=== PATIENT | female | born 1975 | race Caucasian/White ===

== ENCOUNTER 2018-02-13 18:49 | Emergency (ER) | payer MEDICAID ==
[~2018-02-13] VITALS: Ht 170.2 cm; Wt 88.5 kg
[~2018-02-13 18:49] MED LIST: ALBU2.5V4 IN; BECL8.7A5 IH; BENZ100C8 PO; CALC0.5C2 PO; CALC0.5C3 PO; CEFA250C; CEFD300C3 PO; CHOL200035 PO; CLON0.5T PO; CLON0.5T3 PO; CRS350T PO; CYCL10TA9 PO; DICY10CA12 PO; DOXY100C42 PO; FAMO20TA5 PO; HYDR-622 PO; HYDR25CA92 PO; LORA0.5T34 PO; MAGN400T29 PO; MYCO500T34 PO; NF-ESOM40C PO; NITR-65 PO; NORE1TAB28 PO; OMEP-10 PO; ONDA8TAB13 PO; ONDN4T PO; PHEN100T17 PO; PIP1KIT21 TP; PRD20T PO; PRM25T PO; PROM12.59 PO; RANI150T15 PO; RT-ALBUINH IH; SULF1TAB23 PO; TACR1CAP PO; TEMA30CA PO; [UNRECOGNIZED DRUG - OTHER]
--- OUTSIDE RECORDS SUMMARY | 2018-02-13 18:55 | XMS REPORT ---
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 Active Assessment Bilateral low back pain with sciatica, sciatica laterality unspecified M54.40 Active Assessment Primary insomnia F51.01 Active Problem Anxiety F41.9 Active Problem Primary insomnia F51.01 Active Problem Bilateral low back pain with sciatica, sciatica laterality unspecified M54.40 Active Problem 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 Active Problem Asthma, unspecified, with (acute) exacerbation 493.92 Active Problem Depressive disorder, not elsewhere classified 311 Active Problem Insomnia, unspecified 780.52 Active Medications Medication Code System Code Instructions Start Date End Date Status Dosage Fluoxetine HCl [facility] 85513629463 10 MG Orally Once a day 1 capsule in the morning MiraLax [facility] [address]-85 17 Orally Once a day Jul 28, 2015 17 grams Flonase [facility] [address]-29 50 MCG/ACT Nasally 2 times a day Aug 12, 2015 1 spray in each nostril Calcitriol [facility] [address]-79 0.5 mcg Nov 22, 2014 take 2 capsules (1 mcg) by oral route once daily Prograf [facility] [address]-97 1 MG Dec 26, 2014 4 capsules in the morning, 3 capsules in the evening Dicyclomine HCl [facility] 75687358988 10 MG TAKE ONE CAPSULE BY MOUTH EVERY 6 HOURS NEEDED Omeprazole [facility] 87100953231 20 MG TAKE ONE CAPSULE BY MOUTH DAILY BEFORE A MEAL Flexlite Knee Brace [facility] 30058-85451 1 equipment left knee April 14, 2015 as directed Glenis Randhawa [facility] [address]-09 100 MG Orally 2 times a day PRN Jul 28, 2015 1 capsule as needed Claritin [facility] [address]-98 10 MG Orally Once a day Aug 12, 2015 Sep 11, 2015 1 tablet Albuterol Sulfate [facility] [address]-74 2.5 mg /3 mL (0.083 %) Nov 22, 2014 1 Nebulize Solution by Inhalation route every 4 hours PRN [place] [facility] [address]-80 7.5-325 MG Orally 3-4 TIMES DAILY PRN- Dec 06, 2014 1 Tablet Zofran ODT [facility] [address]-87 8 MG Orally every 8 hrs prn N/V Dec 26, 2014 1 tablet Clonazepam [facility] 83707619447 0.5 MG TAKE ONE TABLET BY MOUTH TWICE DAILY Qvar [facility] [address]-29 40 mcg/actuation Nov 22, 2014 inhale 2 puffs by inhalation route 2 times per day Procedures Procedure Coding System Code Date VENIPUNCT, ROUTINE* CPT-4 97817 Sep 11, 2015 No Charge CPT-4 21779 Sep 11, 2015 LAB NOT BILLED BY [facility] CPT-4 NOBLL Sep 11, 2015 Office Visit, Est Pt., Level 4 CPT-4 99001 Sep 11, 2015 Vital Signs Date/Time: Sep 11, 2015 Temperature 97.4 F Weight 252.3 lbs Height 67 in BMI 39.51 Index Blood Pressure Diastolic 78 mmHg Blood Pressure Systolic 118 mmHg Cardiac Monitoring Heart Rate 80 bpm Results Name Result Date Reference Range Unit Abnormality Flag ROUTINE VENIPUNCTURE Summary Purpose eClinicalWorks Submission
--- OUTSIDE RECORDS SUMMARY | 2018-02-13 18:55 | XMS REPORT ---
Author Author SARAI AVILA [facility] eClinicalWorks Address Unknown Phone Unavailable Care Team Providers Care Acoustical Tile Patternmaker Name Role Phone SARAI AVILA Unavailable Allergies, Adverse Reactions, Alerts Substance Reaction Event Type Temazepam Info Not Available Drug Allergy Iodine Info Not Available Drug Allergy Baclofen rash Drug Allergy Codeine Info Not Available Drug Allergy Influenza Virus Vacc,specific Info Not Available Non Drug Allergy Problems Problem Type Condition Code Onset Dates Condition Status Problem Asthma, unspecified, with (acute) exacerbation 493.92 Active Problem Insomnia, unspecified 780.52 Active Problem 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 Active Problem Screening breast examination Z12.39 Active Problem Mild intermittent asthma without complication J45.20 Active Problem Breast pain N64.4 Active Problem Primary insomnia F51.01 Active Problem Depressive disorder, not elsewhere classified 311 Active Problem Bilateral low back pain with sciatica, sciatica laterality unspecified M54.40 Active Problem Anxiety F41.9 Active Assessment Mild intermittent asthma without complication J45.20 Active Assessment Screening breast examination Z12.39 Active Assessment Breast pain N64.4 Active Medications Medication Code System Code Instructions Start Date End Date Status Dosage Zofran ODT [facility] [address]-17 8 MG Orally every 8 hrs prn N/V Dec 26, 2014 1 tablet Albuterol Sulfate [facility] [address]-76 2.5 mg /3 mL (0.083 %) Nov 22, 2014 1 Nebulize Solution by Inhalation route every 4 hours PRN Clonazepam [facility] 38029048236 0.5 MG TAKE ONE TABLET BY MOUTH TWICE DAILY MiraLax [facility] [address]-92 17 Orally Once a day Jul 28, 2015 17 grams Qvar [facility] [address]-83 40 mcg/actuation inhaled bid Nov 22, 2014 inhale 2 puffs by inhalation route 2 times per day Flexlite Knee Brace [facility] 12072[address]75 1 equipment left knee April 14, 2015 as directed Calcitriol [facility] [address]-05 0.5 mcg Nov 22, 2014 take 2 capsules (1 mcg) by oral route once daily Dicyclomine HCl [facility] 19248387758 10 MG TAKE ONE CAPSULE BY MOUTH EVERY 6 HOURS NEEDED Zantac [facility] [address]-38 150 MG Orally Once a day in the morning, 1 tablet Flonase [facility] [address]-11 50 MCG/ACT Nasally 2 times a day Aug 12, 2015 1 spray in each nostril [place] [facility] [address]-15 7.5-325 MG Orally 3-4 TIMES DAILY PRN- Dec 06, 2014 1 Tablet Zanaflex [facility] [address]-42 2 MG Orally 3 times a day 1 capsule as needed Prograf [facility] [address]-24 1 MG Dec 26, 2014 4 capsules in the morning, 3 capsules in the evening Mycophenolate Mofetil [facility] [address]-55 500 mg Nov 22, 2014 take 1.5 tablets by Oral route 2 times per day Omeprazole [facility] 08939497028 20 MG TAKE ONE CAPSULE BY MOUTH DAILY BEFORE A MEAL Procedures Procedure Coding System Code Date Office Visit, Est Pt., Level 4 CPT-4 01744 Dec 18, 2015 CHEST X-RAY CPT-4 17938 Dec 18, 2015 Vital Signs Date/Time: Dec 18, 2015 Temperature 97.7 F Weight 251.2 lbs Height 67 in BMI 39.34 Index Blood Pressure Diastolic 64 mmHg Blood Pressure Systolic 91 mmHg Cardiac Monitoring Heart Rate 79 bpm Results No Known Results Summary Purpose eClinicalWorks Submission
--- OUTSIDE RECORDS SUMMARY | 2018-02-13 18:56 | XMS REPORT ---
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
--- OUTSIDE RECORDS SUMMARY | 2018-02-13 18:56 | XMS REPORT ---
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 Active Assessment Bilateral low back pain with sciatica, sciatica laterality unspecified M54.40 Active Problem Anxiety F41.9 Active Problem Primary insomnia F51.01 Active Problem Bilateral low back pain with sciatica, sciatica laterality unspecified M54.40 Active Problem 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 Active Problem Asthma, unspecified, with (acute) exacerbation 493.92 Active Problem Depressive disorder, not elsewhere classified 311 Active Problem Insomnia, unspecified 780.52 Active Medications Medication Code System Code Instructions Start Date End Date Status Dosage Dicyclomine HCl [facility] 43879456744 10 MG TAKE ONE CAPSULE BY MOUTH EVERY 6 HOURS NEEDED Omeprazole [facility] 05471624580 20 MG TAKE ONE CAPSULE BY MOUTH DAILY BEFORE A MEAL Clonazepam [facility] 82643807006 0.5 MG TAKE ONE TABLET BY MOUTH TWICE DAILY Albuterol Sulfate [facility] [address]-79 2.5 mg /3 mL (0.083 %) Nov 22, 2014 1 Nebulize Solution by Inhalation route every 4 hours PRN MiraLax [facility] [address]-79 17 Orally Once a day Jul 28, 2015 17 grams Flexlite Knee Brace [facility] 90[address]39 1 equipment left knee April 14, 2015 as directed Prograf [facility] [address]-32 1 MG Dec 26, 2014 4 capsules in the morning, 3 capsules in the evening Fluoxetine HCl [facility] 76905694027 10 MG Orally Once a day 1 capsule in the morning Zofran ODT [facility] [address]-42 8 MG Orally every 8 hrs prn N/V Dec 26, 2014 1 tablet Qvar [facility] [address]-63 40 mcg/actuation Nov 22, 2014 inhale 2 puffs by inhalation route 2 times per day Calcitriol [facility] [address]-43 0.5 mcg Nov 22, 2014 take 2 capsules (1 mcg) by oral route once daily [place] [facility] [address]-86 7.5-325 MG Orally 3-4 TIMES DAILY PRN- Dec 06, 2014 1 Tablet Procedures Procedure Coding System Code Date Office Visit, Est Pt., Level 4 CPT-4 54283 Sep 30, 2015 Vital Signs Date/Time: Sep 30, 2015 Temperature 97.2 F Weight 254.1 lbs Height 67 in BMI 39.79 Index Blood Pressure Diastolic 78 mmHg Blood Pressure Systolic 120 mmHg Cardiac Monitoring Heart Rate 84 bpm Results No Known Results Summary Purpose eClinicalWorks Submission
--- OUTSIDE RECORDS SUMMARY | 2018-02-13 18:56 | XMS REPORT ---
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
--- OUTSIDE RECORDS SUMMARY | 2018-02-13 18:56 | XMS REPORT ---
Author Author SARAI AVILA Organization eClinicalWorks Address Unknown Phone Unavailable Care Team Providers Care Field Technical Support Consultant Name Role Phone SARAI AVILA CP Unavailable [...]
--- OUTSIDE RECORDS SUMMARY | 2018-02-13 18:56 | XMS REPORT ---
Author Author SARAI AVILA Organization eClinicalWorks Address Unknown Phone Unavailable Care Team Providers Care Work Over Rig Operator Name Role Phone SARAI AVILA CP Unavailable [...]
--- OUTSIDE RECORDS SUMMARY | 2018-02-13 18:57 | XMS REPORT ---
Author Author SAMIR SALAZAR Organization eClinicalWorks Address Unknown Phone Unavailable Care Team Providers Care Writing Manager Name Role Phone SAMIR SALAZAR CP Unavailable Allergies, Adverse Reactions, Alerts Substance Reaction Event Type Temazepam Info Not Available Drug Allergy Iodine Info Not Available Drug Allergy Codeine Info Not Available Drug Allergy Influenza Virus Vacc,specific Info Not Available Non Drug Allergy Problems Problem Type Condition Code Onset Dates Condition Status Assessment Hiatal hernia K44.9 Active Assessment Atypical chest pain R07.89 Active Problem Anxiety F41.9 Active Problem Primary insomnia F51.01 Active Problem Bilateral low back pain with sciatica, sciatica laterality unspecified M54.40 Active Problem 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 Active Problem Asthma, unspecified, with (acute) exacerbation 493.92 Active Problem Depressive disorder, not elsewhere classified 311 Active Problem Insomnia, unspecified 780.52 Active Medications Medication Code System Code Instructions Start Date End Date Status Dosage Qvar [facility] [address]-61 40 mcg/actuation Nov 22, 2014 inhale 2 puffs by inhalation route 2 times per day Albuterol Sulfate [facility] [address]-65 2.5 mg /3 mL (0.083 %) Nov 22, 2014 1 Nebulize Solution by Inhalation route every 4 hours PRN MiraLax [facility] [address]-75 17 Orally Once a day Jul 28, 2015 17 grams Zofran ODT [facility] [address]-30 8 MG Orally every 8 hrs prn N/V Dec 26, [address] [facility] [address]-68 0.5 mcg Nov 22, 2014 take 2 capsules (1 mcg) by oral route once daily Flexlite Knee Brace [facility] [address]34 1 equipment left knee April 14, 2015 as directed Clonazepam [facility] 29488462349 0.5 MG TAKE ONE TABLET BY MOUTH TWICE DAILY Dicyclomine HCl [facility] 42228591634 10 MG TAKE ONE CAPSULE BY MOUTH EVERY 6 HOURS NEEDED Omeprazole [facility] 00816355438 20 MG TAKE ONE CAPSULE BY MOUTH DAILY BEFORE A MEAL Prograf [facility] [address]-47 1 MG Dec 26, 2014 4 capsules in the morning, 3 capsules in the evening Procedures Procedure Coding System Code Date Office Visit, Est Pt., Level 3 CPT-4 33688 Oct 17, 2015 Vital Signs Date/Time: Oct 17, 2015 Temperature 97.0 F Weight 254.4 lbs Height 67 in BMI 39.84 Index Blood Pressure Diastolic 76 mmHg Blood Pressure Systolic 112 mmHg Cardiac Monitoring Heart Rate 82 bpm Results No Known Results Summary Purpose eClinicalWorks Submission
--- OUTSIDE RECORDS SUMMARY | 2018-02-13 18:57 | XMS REPORT ---
Author Author SARAI AVILA Organization eClinicalWorks Address Unknown Phone Unavailable Care Team Providers Care Typing Teacher Name Role Phone SARAI AVILA CP Unavailable Allergies No Known Allergies Problems Problem Type Condition ICD-9 Code Onset Dates Condition Status Problem Kidney [...] Problem Nausea with vomiting 787.01 Active Medications Medication Code System Code Instructions Start Date End Date Status Dosage Tessalon [place] [facility] [address]-80 100 MG Orally 2 times a day PRN Jul 28, 2015 1 capsule as needed MiraLax [facility] [address]-68 17 Orally Once a day Jul 28, 2015 17 grams Results No Known Results Summary Purpose eClinicalWorks Submission
--- OUTSIDE RECORDS SUMMARY | 2018-02-13 18:57 | XMS REPORT ---
Author Author SARAI AVILA Organization eClinicalWorks Address Unknown Phone Unavailable Care Team Providers Care Freelance Makeup Artist Name Role Phone SARAI AVILA CP Unavailable Allergies No Known Allergies Problems Problem Type Condition ICD-9 Code Onset Dates Condition Status Problem Anxiety state, unspecified 300.00 Active Problem Irregular menstrual cycle 626.4 Active Problem Insomnia, unspecified 780.52 Active Problem Unspecified anemia 285.9 Active Problem Unspecified disorder of menstruation and other abnormal bleeding from female genital tract 626.9 Active Problem Condyloma acuminatum 078.11 Active Problem Nausea with vomiting 787.01 Active Problem Cervicalgia 723.1 Active Problem Irritable bowel syndrome 564.1 Active Problem Depressive disorder, not elsewhere classified 311 Active Problem Asthma, unspecified, with (acute) exacerbation 493.92 Active Problem Absence of menstruation 626.0 Active Problem 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
--- OUTSIDE RECORDS SUMMARY | 2018-02-13 18:57 | XMS REPORT ---
Author Author SARAI AVILA Organization eClinicalWorks Address Unknown Phone Unavailable Care Team Providers Care Caustic Plant Worker Name Role Phone SARAI AVILA CP Unavailable [...] Lumbago 724.2 Active Medications No Known Medications Results No Known Results Summary Purpose eClinicalWorks Submission
--- OUTSIDE RECORDS SUMMARY | 2018-02-13 18:57 | XMS REPORT ---
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 Active Problem Anxiety state, unspecified 300.00 Active Problem Lumbago 724.2 Active Problem Unspecified anemia 285.9 Active Problem Irritable bowel syndrome 564.1 Active Problem Condyloma acuminatum 078.11 Active Problem Cervicalgia 723.1 Active Problem Insomnia, unspecified 780.52 Active Problem Depressive disorder, not elsewhere classified 311 Active Problem Nausea with vomiting 787.01 Active Assessment GERD (gastroesophageal reflux disease) 530.81 Active Assessment Chronic lumbar pain 724.2 Active Assessment Anxiety state, unspecified 300.00 Active Assessment Depressive disorder, not elsewhere classified 311 Active Assessment Irritable bowel syndrome 564.1 Active Assessment 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 Active Assessment Insomnia, unspecified 780.52 Active Problem Asthma, unspecified, with (acute) exacerbation 493.92 Active Medications Medication Code System Code Instructions Start Date End Date Status Dosage Dicyclomine HCl [facility] 16835594538 10 MG TAKE ONE CAPSULE BY MOUTH EVERY 6 HOURS NEEDED Calcitriol [facility] [address]-06 0.5 mcg Nov 22, 2014 take 2 capsules (1 mcg) by oral route once daily [place] [facility] [address]-05 7.5-325 MG Orally 3-4 TIMES DAILY PRN- Dec 06, 2014 Aug 06, 2015 1 Tablet Prograf [facility] [address]-14 1 MG Dec 26, 2014 not defined Qvar [facility] [address]-89 40 mcg/actuation Nov 22, 2014 inhale 2 puffs by inhalation route 2 times per day Clonazepam [facility] [address]-31 0.5 MG TAKE ONE TABLET BY MOUTH TWICE DAILY Mycophenolate Mofetil [facility] [address]-55 500 mg Nov 22, 2014 take 1.5 tablets by Oral route 2 times per day Flexlite Knee Brace [facility] 57[address]64 1 equipment left knee April 14, 2015 as directed Fluoxetine HCl [facility] 29068926750 10 MG Orally Once a day 1 capsule in the morning Albuterol Sulfate [facility] [address]-91 2.5 mg /3 mL (0.083 %) Nov 22, 2014 1 Nebulize Solution by Inhalation route every 4 hours PRN Omeprazole [facility] [address]-79 20 mg Nov 22, 2014 take 1 capsule by Oral route before a meal 1 time per day Zofran ODT [facility] [address]-81 8 MG Orally every 8 hrs prn N/V Dec 26, 2014 1 tablet Procedures Procedure Coding System Code Date Office Visit, Est Pt., Level 4 CPT-4 11753 Jul 23, 2015 Vital Signs Date/Time: Jul 23, 2015 Temperature 97.7 F Weight 255.4 lbs Height 67 in BMI 40.00 Index Blood Pressure Diastolic 80 mmHg Blood Pressure Systolic 105 mmHg Cardiac Monitoring Heart Rate 80 bpm Results No Known Results Summary Purpose eClinicalWorks Submission
--- OUTSIDE RECORDS SUMMARY | 2018-02-13 18:58 | XMS REPORT ---
Author Author SARAI AVILA Organization eClinicalWorks Address Unknown Phone Unavailable Care Team Providers Care Splitter Hand Name Role Phone SARAI AVILA CP Unavailable [...]
--- OUTSIDE RECORDS SUMMARY | 2018-02-13 18:58 | XMS REPORT ---
Author Author KALI [facility] Address Unknown Care Team Providers Care Referral Management Liaison Name Role Phone lonnyKALI Owens Unavailable PROBLEMS Type Condition ICD9-CM Code FQA06-HF Code Onset Dates Condition Status SNOMED Code Problem Anxiety F41.9 Active 15615822 Problem Mild intermittent asthma without complication J45.20 Active 966905190 Problem Bilateral low back pain with sciatica, sciatica laterality unspecified M54.40 Active 710527832 Problem Irritable bowel syndrome with diarrhea K58.0 Active 671021120 Problem Nausea R11.0 Active 870634364 Problem Breast pain N64.4 Active 73441116 Problem Screening breast examination Z12.39 Active 297928905 Problem Irritable bowel syndrome without diarrhea K58.9 Active 22275749 Problem History of renal transplant Z94.0 Active 513319682 Problem 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 Active 577001535 Problem Insomnia, unspecified 780.52 Active 543146360 Problem Depressive disorder, not elsewhere classified 311 Active 02260599 Problem Asthma, unspecified, with (acute) exacerbation 493.92 Active 715589658 Problem Primary insomnia F51.01 Active 5768251 ALLERGIES Substance Reaction Event Type Date Status Temazepam Unknown Drug Allergy Sep, Active Iodine Unknown Drug Allergy Sep, Active Baclofen rash Drug Allergy Sep, Active Codeine Unknown Drug Allergy Sep, Active Influenza Virus Vacc,specific Unknown Non Drug Allergy Sep, Active SOCIAL HISTORY No smoking Hx information available PLAN OF CARE Activity Details Follow Up prn Reason:upper right te VITAL SIGNS Height 67 in 2016-09-20 Blood pressure systolic 107 mmHg 2016-09-20 Blood pressure diastolic 75 mmHg 2016-09-20 MEDICATIONS Medication Instructions Dosage Frequency Start Date End Date Duration Status Clonazepam 0.5 MG TAKE ONE TABLET BY MOUTH TWICE DAILY Active Prograf 1 MG 3 capsules in the morning, 3 capsules in the evening Dec, Active Calcitriol 0.5 MCG 1 tablet 24h Nov, Active MiraLax 17 Orally Once a day 17 grams 24h 21 Jul, 2015 Active Mycophenolate Mofetil 500 mg take 1.5 tablets by Oral route 2 times per day Nov, Active Ventolin HFA 108 (90 Base) MCG/ACT Inhalation every 6 hrs 2 puffs as needed 6h Active Zantac 150 MG 1 tablet Once a day in the morning, Orally Active Flonase 50 MCG/ACT Nasally 2 times a day 1 spray in each nostril 12h Aug 30 day(s) Active [place] 7.5-325 MG Orally 3-4 TIMES DAILY PRN- 1 Tablet Nov, Active Flexlite Knee Brace 1 equipment left knee as directed Apr, Active Zofran ODT 8 MG oral every 12 hours prn 1 tablet Active Albuterol Sulfate 2.5 mg /3 mL (0.083 %) 1 Nebulize Solution by Inhalation route every 4 hours PRN Nov, Active Zanaflex 2 MG Orally 3 times a day 1 capsule as needed 8h Active Dicyclomine HCl 10 MG TAKE ONE CAPSULE BY MOUTH EVERY 6 HOURS NEEDED Active Omeprazole 20 MG TAKE ONE CAPSULE BY MOUTH DAILY BEFORE A MEAL Active RESULTS No Results PROCEDURES Procedure Date Ordered Related Diagnosis Body Site LTD ORAL EVALUATION - PROBLEM FOCUS Sep 20, 2016 PANORAMIC FILM SEE ALSO CODE 73844 Sep 20, 2016 IMMUNIZATIONS No Known Immunizations
--- OUTSIDE RECORDS SUMMARY | 2018-02-13 18:58 | XMS REPORT ---
Author Author SARAI AVILA Organization [employer] Address Unknown Phone Unavailable Care Team Providers Care Pool Hand Name Role Phone SARAI AVILA CP Unavailable Allergies, Adverse Reactions, Alerts Substance [...] Instructions Start Date End Date Status Dosage Omeprazole [facility] 17029422326 20 MG TAKE ONE CAPSULE BY MOUTH DAILY BEFORE A MEAL Zofran ODT [facility] [address]-89 8 MG Orally every 8 hrs prn N/V Dec 26, 2014 1 tablet Zantac [facility] [address]-60 150 MG Orally Once a day in the morning, 1 tablet Results No Known Results Summary Purpose [employer] Submission
--- OUTSIDE RECORDS SUMMARY | 2018-02-13 18:58 | XMS REPORT ---
Author Author SARAI AVILA Organization [employer] Address Unknown Phone Unavailable Care Team Providers Care Chain Maker Name Role Phone SARAI AVILA CP Unavailable [...]
--- OUTSIDE RECORDS SUMMARY | 2018-02-13 18:58 | XMS REPORT ---
Author Author SARAI AVILA Organization [employer] Address Unknown Phone Unavailable Care Team Providers Care Director Career Name Role Phone SARAI AVILA CP Unavailable [...]
--- OUTSIDE RECORDS SUMMARY | 2018-02-13 18:58 | XMS REPORT ---
Author Author SARAI AVILA Organization [employer] Address Unknown Phone Unavailable Care Team Providers Care Registered Nurse Supervisor Name Role Phone SARAI AVILA CP Unavailable [...]
--- OUTSIDE RECORDS SUMMARY | 2018-02-13 18:58 | XMS REPORT ---
Author Author SARAI AVILA [facility] [employer] Address Unknown Phone Unavailable Care Team Providers Care Contact Center Director Name Role Phone SARAI AVILA Unavailable Allergies, [...] Problem Nausea with vomiting 787.01 Active Assessment PND (post-nasal drip) R09.82 Active Assessment Chronic radicular pain of lower back M54.16 Active Assessment Encounter for aftercare following kidney transplant Z48.22 Active Problem Asthma, unspecified, with (acute) exacerbation 493.92 Active Medications Medication Code System Code Instructions Start Date End Date Status Dosage Qvar [facility] [address]-24 40 mcg/actuation Nov 22, 2014 inhale 2 puffs by inhalation route 2 times per day Tessalon Perles [facility] [address]-10 100 MG Orally 2 times a day PRN Jul 28, 2015 1 capsule as needed Clonazepam [facility] 60114593517 0.5 MG TAKE ONE TABLET BY MOUTH TWICE DAILY Albuterol Sulfate [facility] [address]-39 2.5 mg /3 mL (0.083 %) Nov 22, 2014 1 Nebulize Solution by Inhalation route every 4 hours PRN Claritin [facility] [address]-56 10 MG Orally Once a day Aug 12, 2015 Sep 11, 2015 1 tablet MiraLax [facility] [address]-19 17 Orally Once a day Jul 28, 2015 17 grams Omeprazole [facility] 20007322635 20 MG TAKE ONE CAPSULE BY MOUTH DAILY BEFORE A MEAL Dicyclomine HCl [facility] 05403873851 10 MG TAKE ONE CAPSULE BY MOUTH EVERY 6 HOURS NEEDED Prograf [facility] [address]-94 1 MG Dec 26, 2014 not defined Flexlite Knee Brace [facility] 86631-[address]347 1 equipment left knee April 14, 2015 as directed Zofran ODT [facility] [address]-57 8 MG Orally every 8 hrs prn N/V Dec 26, 2014 1 tablet [place] [facility] [address]-09 7.5-325 MG Orally 3-4 TIMES DAILY PRN- Dec 06, 2014 1 Tablet Fluoxetine HCl [facility] 05089790789 10 MG Orally Once a day 1 capsule in the morning Calcitriol [facility] [address]-69 0.5 mcg Nov 22, 2014 take 2 capsules (1 mcg) by oral route once daily Mycophenolate Mofetil [facility] [address]-19 500 mg Nov 22, 2014 take 1.5 tablets by Oral route 2 times per day Flonase [facility] [address]-64 50 MCG/ACT Nasally 2 times a day Aug 12, 2015 1 spray in each nostril Procedures Procedure Coding System Code Date GLYCATED HEMOGLOBIN TEST CPT-4 59274 Aug 12, 2015 VENIPUNCT, ROUTINE* CPT-4 55922 Aug 12, 2015 [facility] CPT-4 NOBLL Aug 12, 2015 Office Visit, Est Pt., Level 3 CPT-4 69939 Aug 12, 2015 Vital Signs Date/Time: Aug 12, 2015 Temperature 97.0 F Weight 253.00 lbs Height 67 in BMI 39.62 Index Blood Pressure Diastolic 68 mmHg Blood Pressure Systolic 110 mmHg Cardiac Monitoring Heart Rate 78 bpm Results Name Result Date Reference Range Unit Abnormality Flag ROUTINE VENIPUNCTURE CK TOTAL Summary Purpose [employer] Submission
--- OUTSIDE RECORDS SUMMARY | 2018-02-13 18:58 | XMS REPORT ---
Author Author SARAI AVILA Organization [employer] Address Unknown Phone Unavailable Care Team Providers Care Administrative Support Manager Name Role Phone SARAI AVILA CP Unavailable [...]
--- OUTSIDE RECORDS SUMMARY | 2018-02-13 18:58 | XMS REPORT ---
Author Author SARAI AVILA Organization [employer] Address Unknown Phone Unavailable Care Team Providers Care Room Server Name Role Phone SARAI AVILA CP Unavailable [...]
--- OUTSIDE RECORDS SUMMARY | 2018-02-13 18:59 | XMS REPORT ---
Author SAAD Avendaño Organization [employer] Address Unknown Phone Unavailable Care Team Providers Care Stave Saw Operator Name Role Phone SAAD KHALIL CP Unavailable Allergies No Known Allergies Problems [...] V42.0 Active Problem Lumbago 724.2 Active Medications Medication Code System Code Instructions Start Date End Date Status Dosage Clonazepam [facility] [address]-44 0.5 MG TAKE ONE TABLET BY MOUTH TWICE DAILY [place] [facility] [address]-92 7.5-325 MG Orally 3-4 TIMES DAILY PRN- Dec 06, 2014 Aug 06, 2015 1 Tablet Results No Known Results Summary Purpose [employer] Submission
--- OUTSIDE RECORDS SUMMARY | 2018-02-13 18:59 | XMS REPORT ---
Author Author SARAI AVILA [facility] [employer] Address Unknown Phone Unavailable Care Team Providers Care Alligator Trapper Name Role Phone SARAI AVILA CP Unavailable [...] Problem Nausea with vomiting 787.01 Active Assessment Recurrent urinary tract infection N39.0 Active Assessment Personal history of immunosupression therapy Z92.25 Active Assessment Kidney transplant status Z94.0 Active Assessment Screening Z13.9 Active Problem Asthma, unspecified, with (acute) exacerbation 493.92 Active Medications No Known Medications Procedures Procedure Coding System Code Date VENIPUNCT, ROUTINE* CPT-4 75163 Aug 29, 2015 LAB NOT BILLED BY [facility] CPT-4 NOBLL Aug 29, 2015 Results No Known Results Summary Purpose [employer] Submission
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
[2018-02-13] MEDS ORDERED: TIZA2CAP PO (19:04)
[2018-02-13] MEDS ORDERED: TRAM50TA2 PO (19:04)
[2018-02-13] MEDS ORDERED: NS IV 1000 ML 1,000 ML IV SCH (19:17)
--- NOTE | 2018-02-13 19:25 | ED GI ---
General Chief Complaint: Abdominal/GI Problems Stated Complaint: STOMACH AND CHEST PAIN Nursing Triage Note: UPPER ABDOMINAL PAIN X3 DAYS Sepsis Screen: No Definite Risk Source of Information: Patient Exam Limitations: No Limitations History of Present Illness Date Seen by Provider: Feb 13, 2018 Time Seen by Provider: 19:13 Initial Comments Patient presents to the ER by private conveyance with chief complaint of the last 3 days she's had progressively worsening pain in her mid epigastric region described as a 9 out of 10 gripping squeezing pain. She says she's had 2 surgeries in the past one last June, approximately 8 months ago and another in 2015 for the same reason. She had a mesh placed and a hiatal hernia reduced. The pain does not radiate she does not have shortness of breath but she does have a dry occasional cough that is chronic. She has had a kidney transplant and is on Prograf and CellCept. She's been taking his medication appropriately. She's had no fevers, chills. She's had no vomiting just nausea. She had a bowel movement yesterday without any diarrhea or constipation. She denies a history of trauma. Allergies and Home Medications Allergies Coded Allergies: Sulfa (Sulfonamide Antibiotics) (Unverified Allergy, Unknown, 06/06/16) codeine (Unverified Allergy, Unknown, 05/27/14) cyclobenzaprine (Unverified Allergy, Unknown, 02/10/15) influenza virus vaccine, specific (Unverified Allergy, Unknown, 05/27/14) iodine (Unverified Allergy, Unknown, 05/27/14) Home Medications Mycophenolate Mofetil 500 Mg Tablet, 750 MG PO BID, (Reported) TAKES 1 & 1/2 (500MG) TABLET Patient Home Medication List Home Medication List Reviewed: Yes Review of Systems Constitutional: No chills, No fever, No malaise EENTM: No Blurred Vision, No Double Vision Respiratory: Cough, Denies Shortness of Air, Denies Wheezing Cardiovascular: Denies Chest Pain, Denies Edema Gastrointestinal: See HPI, Denies Abdomen Distended, Abdominal Pain, Denies Constipated, Denies Diarrhea, Nausea, Denies Poor Fluid Intake, Denies Vomiting Genitourinary: Denies Burning, Denies Discharge Musculoskeletal: No back pain, No joint pain Skin: No pruritus, No rash Past Zrdxruy-Elqqdx-Ceqtxg Hx Patient Social History Alcohol Use: Denies Use Recreational Drug Use: No Smoking Status: Never a Smoker 2nd Hand Smoke Exposure: No Recent Foreign Travel: No Contact w/Someone Who Travel: No Recent Infectious Disease Expo: No Recent Hopitalizations: No Immunizations Up To Date Tetanus Booster (TDap): Unknown PED Vaccines UTD: Yes Seasonal Allergies Seasonal Allergies: Yes Past Medical History Surgeries: Yes (DIALYSIS SHUNT, PARATHYROID REMOVAL, RENAL TRANSPLANT) Arteriovenous Shunt, Dialysis, Kidney Transplant, Parathyroidectomy, Vascular Surgery Respiratory: Yes Asthma, Chronic Bronchitis Cardiac: No Neurological: No : No 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 Disorders: No 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 Disorders: Denies Sexually Transmitted Disease: No HIV/AIDS: No Genitourinary: Yes Renal Failure, UTI-Chronic Gastrointestinal: Yes Gastroesophageal Reflux, Hiatal Hernia Musculoskeletal: Yes Degenerate Disk Disease, Scoliosis, Chronic Back Pain Endocrine: No HEENT: No Cancer: No Psychosocial: Yes Anxiety, Depression Integumentary: No Blood Disorders: No Adverse Reaction/Blood Tranf: No Family Medical History Cancer aunt grandfather (Hodgkin's) Chest pain 19 FATHER Family history: Allergy 19 FATHER 19 MOTHER (hay fever) G8 BROTHER (hay fever) G8 SISTER (hay fever) Family history: Breast disease G8 SISTER aunt Family history: Diabetes mellitus 19 FATHER Family history: Gastrointestinal disease 19 FATHER (Hernia) G8 BROTHER (crohn's) Hearing loss 19 FATHER Thyroid disease 19 MOTHER No Family History of: Abdominal aortic aneurysm [place]'s disease Alcoholism Aphasia Cancer of colon Congenital heart disease Congestive heart failure Cystic fibrosis Dementia Dysphagia Family history: Alzheimer's disease Family history: Arthritis Family history: Asthma Family history: Cardiovascular disease Family history: Coronary thrombosis Family history: Glaucoma Family history: Hypertension Family history: Osteoporosis Family history: Thyroid disorder Headache Heart disease Hereditary disease History of - anemia History of - disorder History of - respiratory disease History of drug abuse Human immunodeficiency virus (HIV) seropositivity Hypercholesterolemia Infertile Kidney disease Malignant neoplasm of lung Myocardial infarction Parkinson's disease Prostate cancer Psychotic disorder Seizure disorder Stroke Tuberculosis Visual impairment No Pertinent Family Hx Physical Exam Vital Signs Vital Signs - First Documented 02/13/18 18:50 Temp 97.8 Pulse 117 Resp 18 B/P (MAP) 107/71 (83) Pulse Ox 97 O2 Delivery Room Air Capillary Refill : Less Than 3 Seconds General Appearance: WD/WN, no apparent distress HEENT: PERRL/EOMI, pharynx normal (oral mucosa is moist.) Neck: non-tender, supple, normal inspection Respiratory: chest non-tender, lungs clear, normal breath sounds, no respiratory distress, no accessory muscle use Cardiovascular: normal peripheral pulses, regular rate, rhythm, no edema Peripheral Pulses: 2+ Radial Pulses (R), 2+ Radial Pulses (L) Gastrointestinal: normal bowel sounds, soft, no organomegaly, No guarding, No rebound, tenderness (right upper quadrant with Sexton's sign positive) Neurologic/Psychiatric: alert, oriented x 3 Skin: normal color, warm/dry Focused Exam Lactate Level 02/13/18 19:30: Lactic Acid Level 1.43 Lactic Acid Level Laboratory Tests Test 02/13/18 19:30 Lactic Acid Level 1.43 MMOL/L (0.50-2.00) Progress/Results/Core Measures Lab Results Laboratory Tests Test 02/13/18 19:30 02/13/18 19:40 Range/Units White Blood Count 9.3 4.3-11.0 10^3/uL Red Blood Count 4.68 4.35-5.85 10^6/uL Hemoglobin 13.3 11.5-16.0 G/DL Hematocrit 41 35-52 % Mean Corpuscular Volume 87 80-99 FL Mean Corpuscular Hemoglobin 28 25-34 PG Mean Corpuscular Hemoglobin Concent 33 32-36 G/DL Red Cell Distribution Width 13.4 10.0-14.5 % Platelet Count 318 130-400 10^3/uL Mean Platelet Volume 9.4 7.4-10.4 FL Neutrophils (%) (Auto) 56 42-75 % Lymphocytes (%) (Auto) 33 12-44 % Monocytes (%) (Auto) 9 0-12 % Eosinophils (%) (Auto) 2 0-10 % Basophils (%) (Auto) 0 0-10 % Neutrophils # (Auto) 5.2 1.8-7.8 X 10^3 Lymphocytes # (Auto) 3.1 1.0-4.0 X 10^3 Monocytes # (Auto) 0.8 0.0-1.0 X 10^3 Eosinophils # (Auto) 0.2 0.0-0.3 10^3/uL Basophils # (Auto) 0.0 0.0-0.1 10^3/uL Sodium Level 139 135-145 MMOL/L Potassium Level 4.3 3.6-5.0 MMOL/L Chloride Level 110 H 98-107 MMOL/L Carbon Dioxide Level 22 21-32 MMOL/L Anion Gap 7 5-14 MMOL/L Blood Urea Nitrogen 18 7-18 MG/DL Creatinine 0.90 0.60-1.30 MG/DL Estimat Glomerular Filtration Rate > 60 BUN/Creatinine Ratio 20 Glucose Level 82 70-105 MG/DL Lactic Acid Level 1.43 0.50-2.00 MMOL/L Calcium Level 9.5 8.5-10.1 MG/DL Phosphorus Level 3.1 2.3-4.7 MG/DL Magnesium Level 1.6 L 1.8-2.4 MG/DL Total Bilirubin 0.3 0.1-1.0 MG/DL Aspartate Amino Transf (AST/SGOT) 21 5-34 U/L Alanine Aminotransferase (ALT/SGPT) 33 0-55 U/L Alkaline Phosphatase 74 40-136 U/L C-Reactive Protein High Sensitivity 0.12 0.00-0.50 MG/DL Total Protein 7.9 6.4-8.2 GM/DL Albumin 4.2 3.2-4.5 GM/DL Lipase 67 8-78 U/L Urine Color YELLOW Urine Clarity CLEAR Urine pH 5 5-9 Urine Specific [place] 1.010 L 1.016-1.022 Urine Protein NEGATIVE NEGATIVE Urine Glucose (UA) NEGATIVE NEGATIVE Urine Ketones NEGATIVE NEGATIVE Urine Nitrite NEGATIVE NEGATIVE Urine Bilirubin NEGATIVE NEGATIVE Urine Urobilinogen NORMAL NORMAL MG/DL Urine Leukocyte Esterase 3+ H NEGATIVE Urine RBC (Auto) 1+ H NEGATIVE Urine RBC 2-5 H /HPF Urine WBC 50-100 H /HPF Urine Squamous Epithelial Cells 2-5 /HPF Urine Crystals NONE /LPF Urine Bacteria TRACE /HPF Urine Casts NONE /LPF Urine Mucus NEGATIVE /LPF Urine Culture Indicated YES Urine Opiates Screen NEGATIVE NEGATIVE Urine Oxycodone Screen NEGATIVE NEGATIVE Urine Methadone Screen NEGATIVE NEGATIVE Urine Propoxyphene Screen NEGATIVE NEGATIVE Urine Barbiturates Screen NEGATIVE NEGATIVE Ur Tricyclic Antidepressants Screen NEGATIVE NEGATIVE Urine Phencyclidine Screen NEGATIVE NEGATIVE Urine Amphetamines Screen NEGATIVE NEGATIVE Urine Methamphetamines Screen NEGATIVE NEGATIVE Urine Benzodiazepines Screen NEGATIVE NEGATIVE Urine Cocaine Screen NEGATIVE NEGATIVE Urine Cannabinoids Screen NEGATIVE NEGATIVE My Orders Orders - FATOUMATA KIRKPATRICK Chest Pa/Lat (2 View) (02/13/18 19:17) Abdomen, Flat & Upright/Decub (02/13/18 19:17) Us Gallbladder [id number] (02/13/18 19:17) Saline Lock/Iv-Start (02/13/18 19:17) Ns Iv 1000 Ml (Sodium Chloride 0.9%) (02/13/18 19:17) Cbc With Automated Diff (02/13/18 19:17) Comprehensive Metabolic Panel (02/13/18 19:17) Hs C Reactive Protein (02/13/18 19:17) Drug Screen Stat (Urine) (02/13/18 19:17) Lactic Acid Analyzer (02/13/18 19:17) Lipase (02/13/18 19:17) Magnesium (02/13/18 19:17) Ua Culture If Indicated (02/13/18 19:17) Phosphorus (02/13/18 19:17) Famotidine Tablet (Pepcid Tablet) (02/13/18 19:30) Ondansetron Injection (Zofran Injectio (02/13/18 19:30) Fentanyl Injection (Sublimaze Injection (02/13/18 19:30) Urine Culture (02/13/18 19:40) Ceftriaxone Injection (Rocephin Injectio (02/13/18 21:00) Medications Given in ED Current Medications Medications Dose Ordered Sig/Joan Route Start Time Stop Time Status Last Admin Dose Admin Ceftriaxone Sodium 1000 mg/ Sodium Chloride 100 ml @ 200 mls/hr ONCE ONCE IV 02/13/18 21:00 02/13/18 21:29 DC 02/13/18 21:02 200 MLS/HR Famotidine 20 mg ONCE ONCE PO 02/13/18 19:30 02/13/18 19:31 DC 02/13/18 19:30 20 MG Fentanyl Citrate 50 mcg ONCE ONCE IVP 02/13/18 19:30 02/13/18 19:31 DC 02/13/18 20:24 50 MCG Ondansetron HCl 4 mg ONCE ONCE IVP 02/13/18 19:30 02/13/18 19:31 DC 02/13/18 20:24 4 MG Vital Signs/I&O 02/13/18 02/13/18 18:50 20:24 Temp 97.8 97.8 Pulse 117 Resp 18 B/P (MAP) 107/71 (83) Pulse Ox 97 O2 Delivery Room Air Blood Pressure Mean: 83 Progress Note : Time: 19:28 Progress Note We will put some fluids on board and treat her pain and nausea. Her use of Prograf and CellCept muddy the [place] or whether this is an infectious process. She is having tenderness over the gallbladder with positive for Sexton sign. We' ll get a lipase and ultrasound of her right upper quadrant. We'll do a plain film x-ray as well as she is having fairly active bowel sounds that could indicate constipation, obstruction as well as it could be seen on the x-ray if she was having a recurrence of her hiatal hernia. Finally we'll give her Pepcid to help with the possibility of acid reflux and after the ultrasounds done and give her a Grasshopper and see if that doesn't help her pain. Diagonstic Imaging: Xray Plain Films/CT/US/NM/MRI: chest Comments No acute cardiopulmonary processes noted VIA [facility], [facility]. [place], [place] NAME: [facility] REC#: [id number] PT STATUS: REG ER : 1975 PHYSICIAN: FATOUMATA KIRKPATRICK MD ADMIT DATE: 02/13/18/ER Draft Date of Exam:02/13/18 CHEST PA/LAT (2 VIEW) INDICATION: Upper abdominal pain EXAMINATION: Two-view chest dated 02/13/2018 COMPARISON: 06/13/2016 FINDINGS: The heart is stable. The pulmonary vasculature is unremarkable. Lungs and pleural spaces demonstrate atelectasis left lung base, otherwise clear. No effusions, no pneumothorax. IMPRESSION: 1. Chronic change with more focal left base atelectasis versus scar. Remaining lung stable from previous. Dictated on workstation # [id number] Dict: 02/13/182033 Trans: 02/13/182039 [place] [id number] Interpreted by: WALDEMAR CLAY MD Electronically signed by: Reviewed: Reviewed by Me Diagonstic Imaging: Xray Plain Films/CT/US/NM/MRI: abdomen Comments [facility] REC[facility] [id number] PT STATUS: REG ER : 1975 PHYSICIAN: FATOUMATA KIRKPATRICK MD ADMIT DATE: 02/13/18/ER Draft Date of Exam:02/13/18 ABDOMEN, FLAT & UPRIGHT/DECUB INDICATION: Upper abdominal pain EXAMINATION: Abdomen dated 02/13/2018 COMPARISON: 06/06/2016 FINDINGS: Three views of the abdomen demonstrate scattered air and stool throughout the colon to the rectosigmoid. There is a moderate amount of stool in the distal colon consistent with constipation. There are a few prominent loops of bowel seen in the mid and upper abdomen with air-fluid levels noted. No free air. IMPRESSION: 1. Findings could be due to a focal gastroenteritis versus a very early partial small bowel obstruction or gastroenteritis. Correlate with symptoms. No free air. Dictated on workstation # [id number] Dict: 02/13/182035 Trans: 02/13/182125 [facility] [id number] Interpreted by: WALDEMAR CLAY MD Electronically signed by: Reviewed: Reviewed by Me Diagonstic Imaging: Ultrasound Plain Films/CT/US/NM/MRI: abdomen (right upper quadrant) Comments [facility]. [place], [place] NAME: [facility] REC#: [id number] PT STATUS: REG ER : 1975 PHYSICIAN: FATOUMATA KIRKPATRICK MD ADMIT DATE: 02/13/18/ER Draft Date of Exam:02/13/18 US GALLBLADDER [id number] PROCEDURE: US Gallbladder. TECHNIQUE: Multiple real-time grayscale images were obtained over the right upper quadrant in various projections. INDICATION: Chest and abdominal pain. EXAMINATION: Ultrasound gallbladder 02/13/2018. FINDINGS: The visualized liver unremarkable but the left lobe is obscured perhaps due to overlying bowel gas. No mass is Seen. No intrahepatic or extrahepatic biliary dilatation appreciated however much of the common bile is obscured by bowel gas. The pancreas is not seen. The visualized aspects of the right kidney are unremarkable. No ascites. The visualized gallbladder is unremarkable in appearance with no gallbladder wall thickening or cholelithiasis appreciated. IMPRESSION: 1. Limited evaluation. Visualized structures unremarkable. Dictated on workstation # [id number] Dict: 02/13/182024 Trans: 02/13/182030 [facility] [id number] Interpreted by: WALDEMAR CLAY MD Electronically signed by: Reviewed: Reviewed by Me Departure Impression Primary Impression: Urinary tract infection Qualified Codes: N30.01 - Acute cystitis with hematuria Disposition: HOME, SELF-CARE Condition: Improved Departure-Patient Inst. Decision time for Depature: 21:31 Referrals: NO,LOCAL PHYSICIAN (PCP/Family) Primary Care Physician Patient Instructions: Urinary Tract Infection, Adult (DC) Add. Discharge Instructions: Drink lots of fluids. Use the pain medications every 6 hours as needed. Use Tylenol 1000 g every 8 hours as needed. Heating pads. 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 Follow up with your primary care physician or establish care within the next 1- 2 weeks to follow up on your urinary tract infection. If you're pain is getting worse or you're nausea is preventing you from drinking then return to the ER for further evaluation. All discharge instructions reviewed with patient and/or family. Voiced understanding. Scripts Ciprofloxacin HCl (Ciprofloxacin HCl) 500 Mg Tablet 500 MG PO BID, #14 TAB Prov: FATOUMATA KIRKPATRICK 02/13/18 Hydrocodone Bit/Acetaminophen (Hydrocodone/Acetaminophen 5/325mg Tablet) 1 Tab Tab 1 EACH PO Q6H Y for BREAKTHROUGH PAIN, #15 TAB 0 Refills Prov: FATOUMATA KIRKPATRICK 02/13/18 FATOUMATA KIRKPATRICK Feb 13, 2018 19:25
[2018-02-13] MEDS ORDERED: fentaNYL INJECTION 100 MCG/2 ML AMP IVP ONE (19:30)
[2018-02-13] MEDS ORDERED: ONDANSETRON 4 MG/2 ML (SDV) Z0FRAN IVP ONE (19:30)
[2018-02-13] MEDS ORDERED: FAMOTIDINE 20 MG (PEPCID) TABLET PO ONE (19:30)
[2018-02-13 19:46] LABS: BASOPHILS % (AUTO) 0 % (0-10); EOSINOPHILS # (AUTO) 0.2 10^3/uL (0.0-0.3); EOSINOPHILS % (AUTO) 2 % (0-10); HEMATOCRIT 41 % (35-52); HEMOGLOBIN 13.3 G/DL (11.5-16.0); LYMPHOCYTES # (AUTO) 3.1 X 10^3 (1.0-4.0); LYMPHOCYTES % (AUTO) 33 % (12-44); MEAN CORPUSCULAR HEMOGLOBIN 28 PG (25-34); MEAN CORPUSCULAR HGB CONC 33 G/DL (32-36); MEAN CORPUSCULAR VOLUME 87 FL (80-99); MEAN PLATELET VOLUME 9.4 FL (7.4-10.4); MONOCYTES # (AUTO) 0.8 X 10^3 (0.0-1.0); MONOCYTES % (AUTO) 9 % (0-12); NEUTROPHILS # (AUTO) 5.2 X 10^3 (1.8-7.8); NEUTROPHILS % (AUTO) 56 % (42-75); PLATELET COUNT 318 10^3/uL (130-400); RED BLOOD COUNT 4.68 10^6/uL (4.35-5.85); RED CELL DISTRIBUTION WIDTH 13.4 % (10.0-14.5); WHITE BLOOD COUNT 9.3 10^3/uL (4.3-11.0)
[2018-02-13 19:49] LABS: BILIRUBIN,URINE NEGATIVE (NEGATIVE); CLARITY,URINE CLEAR; COLOR,URINE YELLOW; GLUCOSE, URINE (UA) NEGATIVE (NEGATIVE); KETONES,URINE NEGATIVE (NEGATIVE); LEUKOCYTE ESTERASE ,URINE 3+ (NEGATIVE); NITRITE,URINE NEGATIVE (NEGATIVE); PH,URINE 5 (5-9); PROTEIN,URINE NEGATIVE (NEGATIVE); UROBILINOGEN,URINE NORMAL (NORMAL)
[2018-02-13 20:05] LABS: BACTERIA,URINE TRACE /HPF; WBC,URINE 50-100 /HPF
[2018-02-13 20:06] LABS: ALANINE AMINOTRANSFERASE 33 U/L (0-55); ALBUMIN 4.2 GM/DL (3.2-4.5); ALKALINE PHOSPHATASE 74 U/L (40-136); BILIRUBIN,TOTAL 0.3 MG/DL (0.1-1.0); BUN/CREATININE RATIO 20; CALCIUM 9.5 MG/DL (8.5-10.1); CARBON DIOXIDE 22 MMOL/L (21-32); CHLORIDE 110 MMOL/L (98-107); GFR ESTIMATED > 60; GLUCOSE 82 MG/DL (70-105); LIPASE 67 U/L (8-78); MAGNESIUM 1.6 MG/DL (1.8-2.4); PHOSPHORUS 3.1 MG/DL (2.3-4.7); POTASSIUM 4.3 MMOL/L (3.6-5.0); SODIUM 139 MMOL/L (135-145); TOTAL PROTEIN 7.9 GM/DL (6.4-8.2)
[2018-02-13 20:10] LABS: AMPHETAMINE SCREEN, URINE NEGATIVE (NEGATIVE); BARBITURATE SCREEN URINE NEGATIVE (NEGATIVE); BENZODIAZEPINES SCREEN URINE NEGATIVE (NEGATIVE); CANNABINOID SCREEN, URINE NEGATIVE (NEGATIVE); COCAINE SCREEN URINE NEGATIVE (NEGATIVE); METHADONE STAT NEGATIVE (NEGATIVE); METHAMPHETAMINE SCREEN URINE S NEGATIVE (NEGATIVE); OPIATE SCREEN URINE NEGATIVE (NEGATIVE); OXYCODONE STAT NEGATIVE (NEGATIVE); PROPOXYPHENE STAT NEGATIVE (NEGATIVE); TRICYCLIC ANTIDEPRESSANTS SCRE NEGATIVE (NEGATIVE)
--- NOTE | 2018-02-13 20:31 | Diagnostic Imaging Report ---
PROCEDURE: US Gallbladder. TECHNIQUE: Multiple real-time grayscale images were obtained over the right upper quadrant in various projections. INDICATION: Chest and abdominal pain. EXAMINATION: Ultrasound gallbladder 02/13/2018. FINDINGS: The visualized liver unremarkable but the left lobe is obscured perhaps due to overlying bowel gas. No mass is Seen. No intrahepatic or extrahepatic biliary dilatation appreciated however much of the common bile is obscured by bowel gas. The pancreas is not seen. The visualized aspects of the right kidney are unremarkable. No ascites. The visualized gallbladder is unremarkable in appearance with no gallbladder wall thickening or cholelithiasis appreciated. IMPRESSION: 1. Limited evaluation. Visualized structures unremarkable. Dictated by: Dictated on workstation # [id number]
--- NOTE | 2018-02-13 20:40 | Diagnostic Imaging Report ---
INDICATION: Upper abdominal pain EXAMINATION: Two-view chest dated 02/13/2018 COMPARISON: 06/13/2016 FINDINGS: The heart is stable. The pulmonary vasculature is unremarkable. Lungs and pleural spaces demonstrate atelectasis left lung base, otherwise clear. No effusions, no pneumothorax. IMPRESSION: 1. Chronic change with more focal left base atelectasis versus scar. Remaining lung stable from previous. Dictated by: Dictated on workstation # [id number]
[2018-02-13] MEDS ORDERED: cefTRIAXone INJECTION 1,000 MG in NS (IVPB) 100 ML IV ONE (21:00)
--- NOTE | 2018-02-13 21:26 | Diagnostic Imaging Report ---
INDICATION: Upper abdominal pain EXAMINATION: Abdomen dated 02/13/2018 COMPARISON: 06/06/2016 FINDINGS: Three views of the abdomen demonstrate scattered air and stool throughout the colon to the rectosigmoid. There is a moderate amount of stool in the distal colon consistent with constipation. There are a few prominent loops of bowel seen in the mid and upper abdomen with air-fluid levels noted. No free air. IMPRESSION: 1. Findings could be due to a focal gastroenteritis versus a very early partial small bowel obstruction or gastroenteritis. Correlate with symptoms. No free air. Dictated by: Dictated on workstation # [id number]
[2018-02-13] MEDS ORDERED: ACHD5005 PO (21:33)
[2018-02-13] MEDS ORDERED: CIPR500T4 PO (21:33)
[2018-02-13 21:38] VITALS: BP 117/72
== END 2018-02-13 21:35 | disposition home or self-care (01) ==
LOC: EDUNIT# 18:49 → ER 18:51
DX: N39.0 Urinary tract infection, site not specified (principal); K21.9 Gastro-esophageal reflux disease without esophagitis; F41.9 Anxiety disorder, unspecified; F32.9 Major depressive disorder, single episode, unspecified; M47.9 Spondylosis, unspecified; J45.909 Unspecified asthma, uncomplicated; Z87.19 Personal history of other diseases of the digestive system; Z94.0 Kidney transplant status; Z95.828 Presence of other vascular implants and grafts; Z87.448 Personal history of other diseases of urinary system; Z88.2 Allergy status to sulfonamides; Z88.6 Allergy status to analgesic agent; Z88.7 Allergy status to serum and vaccine; Z91.041 Radiographic dye allergy status
CPT/HCPCS: 36415; 71046; 74019; 76705; 80053; 80306; 81000; 83605; 83690; 83735; 84100; 85025; 86141; 87088; 96361; 96365; 96375

== ENCOUNTER → 2018-04-17 | Outpatient (CLI) | payer MEDICAID ==
[~2018-04-17] MED LIST changes: +ACHD5005 PO; +CIPR500T4 PO; -RANI150T15 PO; +RANI150T46 PO; +TIZA2CAP PO; +TRAM50TA2 PO
[2018-04-17 09:37] LABS: HEMOGLOBIN 14.6 G/DL (11.5-16.0); MEAN PLATELET VOLUME 9.4 FL (7.4-10.4); RED BLOOD COUNT 5.21 10^6/uL (4.35-5.85); WHITE BLOOD COUNT 7.6 10^3/uL (4.3-11.0)
[2018-04-17 09:50] LABS: BILIRUBIN,URINE NEGATIVE (NEGATIVE); CLARITY,URINE CLEAR; COLOR,URINE YELLOW; GLUCOSE, URINE (UA) NEGATIVE (NEGATIVE); KETONES,URINE NEGATIVE (NEGATIVE); LEUKOCYTE ESTERASE ,URINE 1+ (NEGATIVE); NITRITE,URINE NEGATIVE (NEGATIVE); PH,URINE 6 (5-9); PROTEIN,URINE NEGATIVE (NEGATIVE); UROBILINOGEN,URINE NORMAL (NORMAL)
[2018-04-17 09:59] LABS: ALBUMIN 4.2 GM/DL (3.2-4.5); BUN/CREATININE RATIO 19; CARBON DIOXIDE 22 MMOL/L (21-32); CHLORIDE 108 MMOL/L (98-107); CREATININE SERUM 0.84 MG/DL (0.60-1.30); GFR ESTIMATED > 60; GLUCOSE 91 MG/DL (70-105); PHOSPHORUS 3.4 MG/DL (2.3-4.7); POTASSIUM 4.6 MMOL/L (3.6-5.0); SODIUM 140 MMOL/L (135-145)
[2018-04-17 10:02] LABS: BACTERIA,URINE NEGATIVE /HPF; WBC,URINE RARE /HPF
[2018-04-17 10:03] LABS: SQUAMOUS EPITHELIAL CELL,UR RARE /HPF
[2018-04-17 10:14] LABS: URINE CREATININE FOR RATIO 70 MG/DL (30-125); URINE PROTEIN FOR RATIO ONLY < 6 MG/DL (6-12)
== END ==
LOC: LAB 09:12
PROVIDERS: ATTEND Internal Medicine Nephrology
DX: E87.5 Hyperkalemia (principal); Z94.0 Kidney transplant status
CPT/HCPCS: 36415; 80069; 80197; 81000; 82570; 84156; 85027

== ENCOUNTER → 2018-04-27 | Outpatient (CLI) | payer MEDICAID ==
[2018-04-27 10:34] LABS: HEMOGLOBIN 14.4 G/DL (11.5-16.0); MEAN PLATELET VOLUME 9.3 FL (7.4-10.4); RED BLOOD COUNT 5.18 10^6/uL (4.35-5.85); RED CELL DISTRIBUTION WIDTH 12.9 % (10.0-14.5); WHITE BLOOD COUNT 5.6 10^3/uL (4.3-11.0)
[2018-04-27 10:59] LABS: BUN/CREATININE RATIO 18; CALCIUM 9.7 MG/DL (8.5-10.1); CARBON DIOXIDE 21 MMOL/L (21-32); CHLORIDE 109 MMOL/L (98-107); CREATININE SERUM 0.91 MG/DL (0.60-1.30); GFR ESTIMATED > 60; GLUCOSE 97 MG/DL (70-105); PHOSPHORUS 3.5 MG/DL (2.3-4.7); POTASSIUM 4.5 MMOL/L (3.6-5.0); SODIUM 139 MMOL/L (135-145)
[2018-04-27 11:06] LABS: BILIRUBIN,URINE NEGATIVE (NEGATIVE); CLARITY,URINE SLIGHTLY CLOUDY; COLOR,URINE YELLOW; GLUCOSE, URINE (UA) NEGATIVE (NEGATIVE); KETONES,URINE NEGATIVE (NEGATIVE); LEUKOCYTE ESTERASE ,URINE 2+ (NEGATIVE); NITRITE,URINE NEGATIVE (NEGATIVE); PH,URINE 6 (5-9); PROTEIN,URINE NEGATIVE (NEGATIVE); UROBILINOGEN,URINE NORMAL (NORMAL)
[2018-04-27 11:14] LABS: BACTERIA,URINE NEGATIVE /HPF; SQUAMOUS EPITHELIAL CELL,UR 0-2 /HPF; WBC,URINE 0-2 /HPF
[2018-04-27 11:18] LABS: URINE CREATININE FOR RATIO 88 MG/DL (30-125); URINE PROTEIN FOR RATIO ONLY < 6 MG/DL (6-12)
== END ==
LOC: LAB 10:14
PROVIDERS: ATTEND Internal Medicine Nephrology
DX: Z94.0 Kidney transplant status (principal)
CPT/HCPCS: 36415; 80069; 81000; 82570; 84156; 85027

== ENCOUNTER → 2018-06-06 | Outpatient (CLI) | payer MEDICAID ==
[~2018-06-06] MED LIST changes: +CLON0.5T13 PO; -CLON0.5T3 PO
== END ==
LOC: CARD 09:33
PROVIDERS: ATTEND Internal Medicine Cardiovascular Disease
DX: R07.89 Other chest pain (principal); I12.0 Hypertensive chronic kidney disease with stage 5 chronic kidney disease or end stage renal disease; N18.6 End stage renal disease
CPT/HCPCS: 93325

== ENCOUNTER → 2018-06-26 | Outpatient (CLI) | payer MEDICAID ==
--- NOTE | 2018-06-26 10:29 | Diagnostic Imaging Report ---
PROCEDURE: US abdomen complete. TECHNIQUE: Multiple real-time grayscale images were obtained over the abdomen in various projections. INDICATION: Right upper quadrant pain and dyspepsia. FINDINGS: The liver is normal in size at 17 cm. No discrete liver mass is identified. The portal vein is patent and shows normal direction of flow. Gallbladder is without stones or sludge. No wall thickening or biliary duct dilatation is seen. Pancreas was obscured by bowel gas. Spleen is upper limits of normal in size at 13.6 cm. Proximal and mid aorta was obscured by bowel gas. Distal aorta is non-aneurysmal. IVC is unremarkable. The tetlin kidneys are not visualized. There is a renal transplant in the right pelvis. Transplant demonstrates normal cortical thickness and echogenicity. No calculi or hydronephrosis is detected. There is no ascites. IMPRESSION: Essentially unremarkable abdominal ultrasound. Patient does have a right sided renal transplant which appears unremarkable. No acute features detected. Dictated by: Dictated on workstation # [id number]
== END ==
LOC: RAD 08:50
PROVIDERS: ATTEND Nurse Practitioner Family
DX: R10.11 Right upper quadrant pain (principal); R19.7 Diarrhea, unspecified; R10.13 Epigastric pain; Z94.0 Kidney transplant status
CPT/HCPCS: 76700

== ENCOUNTER → 2018-07-17 | Outpatient (CLI) | payer MEDICAID ==
[~2018-07-17] MED LIST changes: +CATHETER FLUSH 10 ML SYR IV PRN; +OMEP20CA12 PO; +PERM60CR4 TP; +SUCR1TAB36 PO
--- NOTE | 2018-07-17 12:49 | Diagnostic Imaging Report ---
INDICATION: Right upper quadrant abdominal pain and diarrhea. After intravenous administration of 5.5 mCi technetium 99m Choletec, scintigraphic images of the upper abdomen are obtained. Initial images reveal normal distribution of activity throughout the liver. There is prompt appearance of activity in the biliary tree and gallbladder. Activity passes freely into the small bowel. Oral Ensure was administered with gallbladder ejection fraction calculated to be 41%. Normal values are 40% or greater. IMPRESSION: Normal hepatobiliary scan without evidence of cholecystitis or biliary obstruction. Gallbladder ejection fraction is at the lower limits of normal. Dictated by: Dictated on workstation # [id number]
== END ==
LOC: CARD 10:06
PROVIDERS: ATTEND Nurse Practitioner Family
DX: R10.11 Right upper quadrant pain (principal); R19.7 Diarrhea, unspecified; R10.13 Epigastric pain
CPT/HCPCS: 78227

== ENCOUNTER 2018-07-23 16:48 | Emergency (ER) | payer MEDICAID ==
[~2018-07-23] VITALS: Ht 167.6 cm; Wt 98.0 kg
[~2018-07-23 16:48] MED LIST changes: -CATHETER FLUSH 10 ML SYR IV PRN; -OMEP20CA12 PO; -PERM60CR4 TP; -SUCR1TAB36 PO
[2018-07-23] MEDS ORDERED: ASPIRIN 81 MG CHEW (CHILDREN'S ASA) PO ONE (17:15)
[2018-07-23] MEDS ORDERED: NS IV 1000 ML 1,000 ML IV ONE (17:22)
[2018-07-23] MEDS ORDERED: ANTACID SUSP 30 ML UDC (MYLANTA) PO ONE (18:00)
[2018-07-23] MEDS ORDERED: LIDOCAINE 2% VISCOUS 15 ML UDC PO ONE (18:00)
--- NOTE | 2018-07-23 18:02 | ED Syncope ---
General Chief Complaint: Dizziness/Syncope Stated Complaint: SYNCOPE Source of Information: Patient Exam Limitations: No Limitations (MARI LEVINE MD) History of Present Illness Date Seen by Provider: Jul 23, 2018 Time Seen by Provider: 17:10 Initial Comments Here with report of syncopal episode at home today that lasted about 5 minutes. Also has a burning constant chest pain. This is been going on for several hours as well. Does have history of hiatal hernia and has had similar pain previously. States that she has stomach problems as well. She has history of kidney transplant and is currently on immune modulation therapy. States that she is taking those medicines as directed. Also notes that she has it she small red punctate lesions on her legs bilaterally that she's had for quite some time. She was started on steroid as this may have been poison breana per her primary care provider but that has not helped. apparently had similar that got better with steroids. Does have pets in the house but those animals are treated for fleas. Unsure what these lesions are but does remark that they are very itchy. She does live in a metal. The house does have air conditioning unit but there are 10 people come in and out of the house and it does get hot in the house. Reports that she is eating and drinking okay but the family does not agree. Timing/Prior Episodes: No Prior History, Single Episode Today Symptoms Prior to Episode: Other (weakness) Precipitating Factors: Sitting Loss of Consciousness: Prolonged (Minutes) (5) Current Symptoms: No Chest Pain, No Dizziness, No Headache; Lightheadedness; No Loss of Bladder Control, No Loss of Bowel Control; Weakness (MARI LEVINE MD) Allergies and Home Medications Allergies Coded Allergies: Sulfa (Sulfonamide Antibiotics) (Unverified Allergy, Unknown, 06/06/16) baclofen (Verified Allergy, Unknown, 05/01/18) codeine (Unverified Allergy, Unknown, 05/27/14) cyclobenzaprine (Unverified Allergy, Unknown, 02/10/15) influenza virus vaccine, specific (Unverified Allergy, Unknown, 05/27/14) iodine (Unverified Allergy, Unknown, 05/27/14) Home Medications Ciprofloxacin HCl 500 Mg Tablet, 500 MG PO BID Prescribed by: FATOUMATA KIRKPATRICK on 02/13/18 7150 Hydrocodone Bit/Acetaminophen 1 Tab Tab, 1 EACH PO Q6H PRN for BREAKTHROUGH PAIN Prescribed by: FATOUMATA KIRKPATRICK on 02/13/182132 Mycophenolate Mofetil 500 Mg Tablet, 750 MG PO BID, (Reported) TAKES 1 & 1/2 (500MG) TABLET Omeprazole 20 Mg Capsule.dr, 20 MG PO DAILY Prescribed by: FATOUMATA KIRKPATRICK on 07/23/182032 Sucralfate 1 Gm Tablet, 1 GM PO QIDACHS Prescribed by: FATOUMATA KIRKPATRICK on 07/23/182032 Patient Home Medication List Home Medication List Reviewed: Yes (MARI LEVINE MD) Review of Systems Constitutional: see HPI; No chills, No fever EENTM: no symptoms reported Respiratory: no symptoms reported Cardiovascular: see HPI, chest pain, syncope Gastrointestinal: abdominal pain; No diarrhea, No nausea, No vomiting Genitourinary: see HPI; No dysuria Musculoskeletal: no symptoms reported Skin: see HPI, change in color, pruritus, rash Psychiatric/Neurological: See HPI (MARI LEVINE MD) All Other Systems Reviewed Negative Unless Noted: Yes (MARI LEVINE MD) Past Kpvwuft-Kdigot-Eivzsz Hx Past Med/Social Hx: Reviewed Nursing Past Med/Soc Hx (MARI LEVINE MD) Patient Social History Alcohol Use: Denies Use Recreational Drug Use: No Smoking Status: Never a Smoker 2nd Hand Smoke Exposure: No Recent Foreign Travel: No Contact w/Someone Who Travel: No Recent Hopitalizations: No (MARI LEVINE MD) Immunizations Up To Date Tetanus Booster (TDap): Unknown PED Vaccines UTD: Yes (MARI LEVINE MD) Seasonal Allergies Seasonal Allergies: Yes (MARI LEVINE MD) Past Medical History Surgeries: Yes (DIALYSIS SHUNT, PARATHYROID REMOVAL, RENAL TRANSPLANT, hiatal hernia) Arteriovenous Shunt, Dialysis, Kidney Transplant, Parathyroidectomy, Vascular Surgery Respiratory: Yes Asthma, Chronic Bronchitis Cardiac: No Neurological: No 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 Disorders: No 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 Disorders: Denies Sexually Transmitted Disease: No HIV/AIDS: No Genitourinary: Yes Renal Failure, Dialysis, UTI-Chronic Gastrointestinal: Yes Gastroesophageal Reflux, Hiatal Hernia Musculoskeletal: Yes Degenerate Disk Disease, Scoliosis, Chronic Back Pain Endocrine: No HEENT: No Cancer: No Psychosocial: Yes Anxiety, Depression Integumentary: No Blood Disorders: No Adverse Reaction/Blood Tranf: No (MARI LEVINE MD) Family Medical History Reviewed Nursing Family Hx (MARI LEVINE MD) Cancer aunt grandfather (Hodgkin's) Chest pain 19 FATHER Family history: Allergy 19 FATHER 19 MOTHER (hay fever) G8 BROTHER (hay fever) G8 SISTER (hay fever) Family history: Breast disease G8 SISTER aunt Family history: Diabetes mellitus 19 FATHER Family history: Gastrointestinal disease 19 FATHER (Hernia) G8 BROTHER (crohn's) Hearing loss 19 FATHER Thyroid disease 19 MOTHER No Family History of: Abdominal aortic aneurysm Sanborn's disease Alcoholism Aphasia Cancer of colon Congenital heart disease Congestive heart failure Cystic fibrosis Dementia Dysphagia Family history: Alzheimer's disease Family history: Arthritis Family history: Asthma Family history: Cardiovascular disease Family history: Coronary thrombosis Family history: Glaucoma Family history: Hypertension Family history: Osteoporosis Family history: Thyroid disorder Headache Heart disease Hereditary disease History of - anemia History of - disorder History of - respiratory disease History of drug abuse Human immunodeficiency virus (HIV) seropositivity Hypercholesterolemia Infertile Kidney disease Malignant neoplasm of lung Myocardial infarction Parkinson's disease Prostate cancer Psychotic disorder Seizure disorder Stroke Tuberculosis Visual impairment Physical Exam Vital Signs Vital Signs - First Documented 07/23/18 16:50 Temp 97.3 Pulse 88 Resp 17 B/P (MAP) 101/82 (88) Pulse Ox 94 O2 Delivery Nasal Cannula O2 Flow Rate 2.00 (FATOUMATA KIRKPATRICK) Vital Signs Capillary Refill : Less Than 3 Seconds (MARI LEVINE MD) Height, Weight, BMI Height: 5'6.00" Weight: 216lbs. 0oz. 97.470088ds; 36.80 BMI Method:Stated General Appearance: No Apparent Distress, WD/WN HEENT: PERRL/EOMI, Pharynx Normal Neck: Non Tender, Supple Cardiovascular: Regular Rate, Rhythm, No Murmur Respiratory: Lungs Clear, Normal Breath Sounds Gastrointestinal: Non Tender, Soft Back: Normal Inspection, No CVA Tenderness, No Vertebral Tenderness Extremities: Normal Range of Motion, Non Tender Neurologic/Psychiatric: Alert, Oriented x3 Cranial Nerves: Normal Hearing, Normal Speech, PERRL Motor/Sensory: No Motor Deficit, No Sensory Deficit Skin: Warm/Dry, Petechia (bilateral lower extremities), Rash (petechia rash with excoriations noted to bilateral lower extremities) (MARI LEVINE MD) Progress/Results/Core Measures Results/Orders Lab Results Laboratory Tests Test 07/23/18 17:45 07/23/18 20:20 Range/Units White Blood Count 9.3 4.3-11.0 10^3/uL Red Blood Count 4.71 4.35-5.85 10^6/uL Hemoglobin 13.6 11.5-16.0 G/DL Hematocrit 41 35-52 % Mean Corpuscular Volume 87 80-99 FL Mean Corpuscular Hemoglobin 29 25-34 PG Mean Corpuscular Hemoglobin Concent 33 32-36 G/DL Red Cell Distribution Width 13.2 10.0-14.5 % Platelet Count 297 130-400 10^3/uL Mean Platelet Volume 9.5 7.4-10.4 FL Neutrophils (%) (Auto) 65 42-75 % Lymphocytes (%) (Auto) 26 12-44 % Monocytes (%) (Auto) 8 0-12 % Eosinophils (%) (Auto) 1 0-10 % Basophils (%) (Auto) 0 0-10 % Neutrophils # (Auto) 6.1 1.8-7.8 X 10^3 Lymphocytes # (Auto) 2.4 1.0-4.0 X 10^3 Monocytes # (Auto) 0.7 0.0-1.0 X 10^3 Eosinophils # (Auto) 0.1 0.0-0.3 10^3/uL Basophils # (Auto) 0.0 0.0-0.1 10^3/uL Prothrombin Time 13.8 12.2-14.7 SEC INR Comment 1.1 0.8-1.4 Activated Partial Thromboplast Time 31 24-35 SEC Sodium Level 138 135-145 MMOL/L Potassium Level 4.0 3.6-5.0 MMOL/L Chloride Level 107 98-107 MMOL/L Carbon Dioxide Level 21 21-32 MMOL/L Anion Gap 10 5-14 MMOL/L Blood Urea Nitrogen 19 H 7-18 MG/DL Creatinine 0.94 0.60-1.30 MG/DL Estimat Glomerular Filtration Rate > 60 BUN/Creatinine Ratio 20 Glucose Level 97 70-105 MG/DL Calcium Level 9.2 8.5-10.1 MG/DL Corrected Calcium 9.2 8.5-10.1 MG/DL Magnesium Level 1.8 1.8-2.4 MG/DL Total Bilirubin 0.3 0.1-1.0 MG/DL Aspartate Amino Transf (AST/SGOT) 18 5-34 U/L Alanine Aminotransferase (ALT/SGPT) 23 0-55 U/L Alkaline Phosphatase 92 40-136 U/L Myoglobin 51.5 10.0-92.0 NG/ML Troponin I < 0.30 < 0.30 <0.30 NG/ML B-Type Natriuretic Peptide 21.1 <100.0 PG/ML Total Protein 7.5 6.4-8.2 GM/DL Albumin 4.0 3.2-4.5 GM/DL Amylase Level 71 25-125 U/L Lipase 65 8-78 U/L (FATOUMATA KIRKPATRICK) My Orders Orders - FATOUMATA KIRKPATRICK Nitroglycerin 0.4 Mg Btl 25's (Nitrostat (07/23/18 18:45) Troponin I (07/23/18 19:59) Ekg Tracing (07/23/18 19:59) (FATOUMATA KIRKPATRICK) Medications Given in ED Current Medications Medications Dose Ordered Sig/Joan Route Start Time Stop Time Status Last Admin Dose Admin Al Hydrox/Mg Hydrox/Simethicone 30 ml ONCE ONCE PO 07/23/18 18:00 07/23/18 18:01 DC 07/23/18 18:17 30 ML Lidocaine HCl 15 ml ONCE ONCE PO 07/23/18 18:00 07/23/18 18:01 DC 07/23/18 18:17 15 ML Sodium Chloride 1,000 ml @ 0 mls/hr Q0M ONCE IV 07/23/18 17:22 07/23/18 17:23 DC 07/23/18 17:32 0 MLS/HR (FATOUMATA KIRKPATRICK) Vital Signs/I&O 07/23/18 07/23/18 16:50 16:50 Temp 97.3 Pulse 88 Resp 17 B/P (MAP) 101/82 (88) Pulse Ox 94 94 O2 Delivery Nasal Cannula Room Air O2 Flow Rate 2.00 (FATOUMATA KIRKPATRICK) Progress Progress Note : Progress Note Seen and evaluated. IV, labs, EKG and chest x-ray ordered. Normal saline 1 L bolus. ASA 324 mg by mouth ordered but patient refused. GI cocktail ordered. Monitor patient. (MARI LEVINE MD) Progress Note #1: Time: 18:33 Progress Note #2: Time: 18:33 Progress Note Assumed control the patient from Dr. Levine. After discussing the case with him reviewing his notes being with the patient listening to her story, and examining her I agree with everything his documented in the note. Patient notes she's had these problems with burning chest pain recent stop using her NSAIDs after the transplant. She also has a history of irritable bowel syndrome. She's declined any aspirin today secondary to her kidney transplant. We will give her a GI cocktail with so far and brought her pain down from a 10 to an 8. She still having quite a bit of pain. She does have a history of hernia surgery repair by Dr. craig at [facility] and another one done at [facility] by another doctor. She said that he asked her to get a barium swallow study to see if the mesh was still in good position and that she was going to get this set up outpatient. She has however had a HIDA scan done just a couple days ago that was unremarkable. He been seen before by this provider and had the same history. The time she responded well to fentanyl and GI cocktail. Imaging at that time was unremarkable her gallbladder and there were some nonspecific gastroenteritis versus possible UTI. 2-D echocardiogram [address] Hernandez: Ejection fraction 65-70%. Wall thickness mildly increased. Restrictive physiology. (FATOUMATA KIRKPATRICK) Initial ECG Impression Date: Jul 23, 2018 Initial ECG Impression Time: 17:00 Initial ECG Rate: 86 Initial ECG Rhythm: Normal Sinus Initial ECG Comparisson: Unchanged Comment sinus rhythm with normal axis. No evidence of ST elevation [place]. Unchanged from previous of 05/01/18. Interpreted by me. (MARI LEVINE MD) EKG : EKG Time: 20:18 Rate: 77 Rhythm: Normal Sinus Intervals: Normal ECG Comparisson: Unchanged ECG Impression: Normal Comment No ST elevation or depression. (FATOUMATA KIRKPATRICK) Diagnostic Imaging Diagonstic Imaging: Xray Plain Films/CT/US/NM/MRI: chest (v1) Comments [facility]IA [facility] [place], [place] NAME: MARYANNE ORTIZ [facility] REC#: [id number] PT STATUS: REG ER : 1975 PHYSICIAN: MARI LEVINE MD ADMIT DATE: 07/23/18/ER Draft Date of Exam:07/23/18 CHEST 1 VIEW, AP/PA ONLY INDICATION: Syncope. COMPARISON: 05/01/2018. FINDINGS: Heart size is within normal limits. There is some minimal scarring in the left lung base. No evidence of pneumonia, edema, effusion, or pneumothorax. The vascular structures are nondilated. IMPRESSION: Minimal linear scarring in the left base. No acute cardiopulmonary abnormality apparent. Dictated on workstation # [id number] Dict: 07/23/181809 Trans: 07/23/181815 [id number] Interpreted by: NERIS THURSTON Electronically signed by: Reviewed: Reviewed by Me (FATOUMATA KIRKPATRICK) Departure Impression Primary Impression: GERD (gastroesophageal reflux disease) Qualified Codes: K21.9 - Gastro-esophageal reflux disease without esophagitis Additional Impressions: Scabies Chest pain Qualified Codes: R07.9 - Chest pain, unspecified Disposition: 01 HOME, SELF-CARE Condition: Improved Departure-Patient Inst. Decision time for Depature: 20:51 (FATOUMATA KIRKPATRICK) Referrals: PAULINE HERNANDEZ MD FACP FACC CCDS LIYA ARVIZU MD (PCP/Family) Primary Care Physician Patient Instructions: Acid Reflux (Gastroesophageal Reflux Disease), Adult (DC) Add. Discharge Instructions: Keep your follow-up appointment tomorrow with your optical engineering manager and consider endoscopy and workup for your acid reflux symptoms. If your symptoms recur you can use Maalox, Tums, or other antacids. You can also start the Carafate 30 minutes prior to all meals and bedtime for the next 2 weeks. Omeprazole 20 mg daily for the next 4 weeks. Call your carpet tile layer Dr. Hernandez tomorrow morning and request an appointment to follow-up for your chest pain in the clinic. All discharge instructions reviewed with patient and/or family. Voiced understanding. Scripts Permethrin (Permethrin) 60 Gm Cream..g. 60 GM TP q4Zoobd for 14 Days, #2 TUBE 0 Refills Prov: FATOUMATA KIRKPATRICK 07/23/18 Omeprazole (Omeprazole) 20 Mg Capsule.dr 20 MG PO DAILY for 30 Days, #30 CAP 0 Refills Prov: FATOUMATA KIRKPATRICK 07/23/18 Sucralfate (Carafate) 1 Gm Tablet 1 GM PO QIDACHS for 14 Days, #56 TAB 0 Refills Prov: FATOUMATA KIRKPATRICK 07/23/18 Copy Copies To 1: PAULINE HERNANDEZ MD FACP FAC CCDS; LIYA ARVIZU MD, TIMOTHY D MD Jul 23, 2018 18:02 FATOUMATA KIRKPATRICK Jul 23, 2018 18:37
[2018-07-23 18:05] LABS: BASOPHILS % (AUTO) 0 % (0-10); EOSINOPHILS # (AUTO) 0.1 10^3/uL (0.0-0.3); EOSINOPHILS % (AUTO) 1 % (0-10); HEMATOCRIT 41 % (35-52); HEMOGLOBIN 13.6 G/DL (11.5-16.0); LYMPHOCYTES # (AUTO) 2.4 X 10^3 (1.0-4.0); LYMPHOCYTES % (AUTO) 26 % (12-44); MEAN CORPUSCULAR HEMOGLOBIN 29 PG (25-34); MEAN CORPUSCULAR HGB CONC 33 G/DL (32-36); MEAN CORPUSCULAR VOLUME 87 FL (80-99); MEAN PLATELET VOLUME 9.5 FL (7.4-10.4); MONOCYTES # (AUTO) 0.7 X 10^3 (0.0-1.0); MONOCYTES % (AUTO) 8 % (0-12); NEUTROPHILS # (AUTO) 6.1 X 10^3 (1.8-7.8); NEUTROPHILS % (AUTO) 65 % (42-75); PLATELET COUNT 297 10^3/uL (130-400); RED BLOOD COUNT 4.71 10^6/uL (4.35-5.85); RED CELL DISTRIBUTION WIDTH 13.2 % (10.0-14.5); WHITE BLOOD COUNT 9.3 10^3/uL (4.3-11.0)
--- NOTE | 2018-07-23 18:16 | Diagnostic Imaging Report ---
INDICATION: Syncope. COMPARISON: 05/01/2018. FINDINGS: Heart size is within normal limits. There is some minimal scarring in the left lung base. No evidence of pneumonia, edema, effusion, or pneumothorax. The vascular structures are nondilated. IMPRESSION: Minimal linear scarring in the left base. No acute cardiopulmonary abnormality apparent. Dictated by: Dictated on workstation # [id number]
[2018-07-23 18:19] LABS: INR 1.1 (0.8-1.4); PROTHROMBIN TIME PATIENT 13.8 SEC (12.2-14.7)
[2018-07-23 18:28] LABS: ALANINE AMINOTRANSFERASE 23 U/L (0-55); ALKALINE PHOSPHATASE 92 U/L (40-136); AMYLASE 71 U/L (25-125); BILIRUBIN,TOTAL 0.3 MG/DL (0.1-1.0); BUN/CREATININE RATIO 20; CALCIUM 9.2 MG/DL (8.5-10.1); CARBON DIOXIDE 21 MMOL/L (21-32); CHLORIDE 107 MMOL/L (98-107); CREATININE SERUM 0.94 MG/DL (0.60-1.30); GFR ESTIMATED > 60; GLUCOSE 97 MG/DL (70-105); MAGNESIUM 1.8 MG/DL (1.8-2.4); SODIUM 138 MMOL/L (135-145); TOTAL PROTEIN 7.5 GM/DL (6.4-8.2)
[2018-07-23 18:37] LABS: MYOGLOBIN SERUM 51.5 NG/ML (10.0-92.0)
[2018-07-23] MEDS ORDERED: NITROGLYCERIN 0.4 MG SL TABS BTL 25'S SL PRN (18:45)
[2018-07-23 19:30] LABS: LIPASE 65 U/L (8-78)
[2018-07-23] MEDS ORDERED: OMEP20CA12 PO (20:33)
[2018-07-23] MEDS ORDERED: SUCR1TAB36 PO (20:33)
[2018-07-23] MEDS ORDERED: PERM60CR4 TP (20:51)
[2018-07-23 20:56] VITALS: BP 109/77
== END 2018-07-23 20:56 | disposition home or self-care (01) ==
LOC: EDUNIT# 16:48 → ER 16:50
DX: K21.9 Gastro-esophageal reflux disease without esophagitis (principal); R07.9 Chest pain, unspecified; B86 Scabies; J45.909 Unspecified asthma, uncomplicated; F41.9 Anxiety disorder, unspecified; F32.9 Major depressive disorder, single episode, unspecified; Z80.7 Family history of other malignant neoplasms of lymphoid, hematopoietic and related tissues; Z87.440 Personal history of urinary (tract) infections; Z88.2 Allergy status to sulfonamides; Z88.5 Allergy status to narcotic agent; Z88.7 Allergy status to serum and vaccine; Z91.041 Radiographic dye allergy status; Z88.8 Allergy status to other drugs, medicaments and biological substances; Z87.19 Personal history of other diseases of the digestive system; Z94.0 Kidney transplant status
CPT/HCPCS: 36415; 71045; 80053; 82150; 83690; 83735; 83874; 83880; 84484; 85025; 85610; 85730; 93005; 93041; 96360; 96361

== ENCOUNTER 2018-08-27 20:22 | Emergency (ER) | payer MEDICAID ==
[~2018-08-27] VITALS: Ht 170.2 cm; Wt 97.5 kg
[~2018-08-27 20:22] MED LIST changes: +OMEP20CA12 PO; +PERM60CR4 TP; +SUCR1TAB36 PO
[2018-08-27] MEDS ORDERED: D5 NS 1000 ML IV SOLUTION 1,000 ML IV ONE (20:36)
[2018-08-27] MEDS ORDERED: SIME125C PO (20:46)
[2018-08-27 20:52] LABS: BILIRUBIN,URINE NEGATIVE (NEGATIVE); CLARITY,URINE CLEAR; COLOR,URINE YELLOW; GLUCOSE, URINE (UA) NEGATIVE (NEGATIVE); KETONES,URINE NEGATIVE (NEGATIVE); LEUKOCYTE ESTERASE ,URINE NEGATIVE (NEGATIVE); NITRITE,URINE NEGATIVE (NEGATIVE); PH,URINE 6 (5-9); PROTEIN,URINE NEGATIVE (NEGATIVE); UROBILINOGEN,URINE NORMAL (NORMAL)
[2018-08-27] MEDS ORDERED: NS IV 1000 ML 1,000 ML IV ONE (20:53)
[2018-08-27] MEDS ORDERED: ONDANSETRON 4 MG/2 ML (SDV) Z0FRAN IVP ONE (21:00)
[2018-08-27] MEDS ORDERED: HYOSCYAMINE 0.125 MG (LEVSIN) TAB SL ONE (21:00)
[2018-08-27 21:05] LABS: BACTERIA,URINE NEGATIVE /HPF; SQUAMOUS EPITHELIAL CELL,UR 0-2 /HPF
[2018-08-27 21:19] LABS: BASOPHILS % (AUTO) 0 % (0-10); EOSINOPHILS # (AUTO) 0.1 10^3/uL (0.0-0.3); EOSINOPHILS % (AUTO) 1 % (0-10); HEMATOCRIT 43 % (35-52); HEMOGLOBIN 14.2 G/DL (11.5-16.0); LYMPHOCYTES # (AUTO) 3.2 X 10^3 (1.0-4.0); LYMPHOCYTES % (AUTO) 34 % (12-44); MEAN CORPUSCULAR HEMOGLOBIN 28 PG (25-34); MEAN CORPUSCULAR HGB CONC 33 G/DL (32-36); MEAN CORPUSCULAR VOLUME 86 FL (80-99); MEAN PLATELET VOLUME 9.3 FL (7.4-10.4); MONOCYTES # (AUTO) 0.6 X 10^3 (0.0-1.0); MONOCYTES % (AUTO) 6 % (0-12); NEUTROPHILS # (AUTO) 5.4 X 10^3 (1.8-7.8); NEUTROPHILS % (AUTO) 58 % (42-75); PLATELET COUNT 260 10^3/uL (130-400); RED BLOOD COUNT 5.07 10^6/uL (4.35-5.85); RED CELL DISTRIBUTION WIDTH 13.3 % (10.0-14.5); WHITE BLOOD COUNT 9.3 10^3/uL (4.3-11.0)
--- NOTE | 2018-08-27 21:21 | ED General ---
General Chief Complaint: Abdominal/GI Problems Stated Complaint: HEADACHE,CHILLS,STOMACH ACHE Nursing Triage Note: abdominal pain, headache, dizzy, nausea Nursing Sepsis Screen: No Definite Risk Source of Information: Patient Exam Limitations: No Limitations History of Present Illness Date Seen by Provider: Aug 27, 2018 Time Seen by Provider: 20:23 Allergies and Home Medications Allergies Coded Allergies: Sulfa (Sulfonamide Antibiotics) (Unverified Allergy, Unknown, 06/06/16) baclofen (Verified Allergy, Unknown, 05/01/18) codeine (Unverified Allergy, Unknown, 05/27/14) cyclobenzaprine (Unverified Allergy, Unknown, 02/10/15) influenza virus vaccine, specific (Unverified Allergy, Unknown, 05/27/14) iodine (Unverified Allergy, Unknown, 05/27/14) Home Medications Mycophenolate Mofetil 500 Mg Tablet, 750 MG PO BID, (Reported) TAKES 1 & 1/2 (500MG) TABLET Past Bpainwc-Pxvbac-Tlldzr Hx Patient Social History Alcohol Use: Denies Use Recreational Drug Use: No Smoking Status: Never a Smoker 2nd Hand Smoke Exposure: No Recent Foreign Travel: No Contact w/Someone Who Travel: No Recent Infectious Disease Expo: No Recent Hopitalizations: No Immunizations Up To Date Tetanus Booster (TDap): Unknown PED Vaccines UTD: Yes Seasonal Allergies Seasonal Allergies: Yes Past Medical History Surgeries: Yes (DIALYSIS SHUNT, PARATHYROID REMOVAL, RENAL TRANSPLANT, hiatal hernia) Arteriovenous Shunt, Dialysis, Kidney Transplant, Parathyroidectomy, Vascular Surgery Respiratory: Yes Asthma, Chronic Bronchitis Cardiac: No Neurological: No : No 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 Disorders: No 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 Sexually Transmitted Disease: No HIV/AIDS: No Genitourinary: Yes (renal transplant) Renal Failure, UTI-Chronic Gastrointestinal: Yes Gastroesophageal Reflux, Hiatal Hernia, Ulcer Musculoskeletal: Yes Degenerate Disk Disease, Scoliosis, Chronic Back Pain Endocrine: No Hypothyroidsim HEENT: No Cancer: No Psychosocial: Yes Anxiety, Depression Integumentary: No Blood Disorders: No Adverse Reaction/Blood Tranf: No Family Medical History Cancer aunt grandfather (Hodgkin's) Chest pain 19 FATHER Family history: Allergy 19 FATHER 19 MOTHER (hay fever) G8 BROTHER (hay fever) G8 SISTER (hay fever) Family history: Breast disease G8 SISTER aunt Family history: Diabetes mellitus 19 FATHER Family history: Gastrointestinal disease 19 FATHER (Hernia) G8 BROTHER (crohn's) Hearing loss 19 FATHER Thyroid disease 19 MOTHER No Family History of: Abdominal aortic aneurysm Robert's disease Alcoholism Aphasia Cancer of colon Congenital heart disease Congestive heart failure Cystic fibrosis Dementia Dysphagia Family history: Alzheimer's disease Family history: Arthritis Family history: Asthma Family history: Cardiovascular disease Family history: Coronary thrombosis Family history: Glaucoma Family history: Hypertension Family history: Osteoporosis Family history: Thyroid disorder Headache Heart disease Hereditary disease History of - anemia History of - disorder History of - respiratory disease History of drug abuse Human immunodeficiency virus (HIV) seropositivity Hypercholesterolemia Infertile Kidney disease Malignant neoplasm of lung Myocardial infarction Parkinson's disease Prostate cancer Psychotic disorder Seizure disorder Stroke Tuberculosis Visual impairment Physical Exam Vital Signs Vital Signs - First Documented 08/27/18 20:35 Temp 97.6 Pulse 71 Resp 18 B/P (MAP) 114/84 (94) Pulse Ox 97 O2 Delivery Room Air Capillary Refill : Less Than 3 Seconds Height, Weight, BMI Height: 5'7.00" Weight: 215lbs. 0oz. 97.685562hf; 36.80 BMI Method:Stated Progress/Results/Core Measures Suspected Sepsis Recent Fever Within 48 Hours: No Infection Criteria Present: Suspected New Infection New/Unexplained Altered Menta: No Sepsis Screen: No Definite Risk SIRS Temperature:97.6 Pulse: 71 Respiratory Rate: 18 Laboratory Tests 08/27/18 21:00: White Blood Count 9.3 Blood Pressure 114 /84 Mean: 94 Laboratory Tests 08/27/18 21:00: Creatinine 0.91, Platelet Count 260, Total Bilirubin 0.7 Results/Orders Lab Results Laboratory Tests Test 08/27/18 20:41 08/27/18 21:00 Range/Units Urine Color YELLOW Urine Clarity CLEAR Urine pH 6 5-9 Urine Specific Bradley 1.005 L 1.016-1.022 Urine Protein NEGATIVE NEGATIVE Urine Glucose (UA) NEGATIVE NEGATIVE Urine Ketones NEGATIVE NEGATIVE Urine Nitrite NEGATIVE NEGATIVE Urine Bilirubin NEGATIVE NEGATIVE Urine Urobilinogen NORMAL NORMAL MG/DL Urine Leukocyte Esterase NEGATIVE NEGATIVE Urine RBC (Auto) NEGATIVE NEGATIVE Urine RBC NONE /HPF Urine WBC NONE /HPF Urine Squamous Epithelial Cells 0-2 /HPF Urine Crystals NONE /LPF Urine Bacteria NEGATIVE /HPF Urine Casts NONE /LPF Urine Mucus NEGATIVE /LPF Urine Culture Indicated NO White Blood Count 9.3 4.3-11.0 10^3/uL Red Blood Count 5.07 4.35-5.85 10^6/uL Hemoglobin 14.2 11.5-16.0 G/DL Hematocrit 43 35-52 % Mean Corpuscular Volume 86 80-99 FL Mean Corpuscular Hemoglobin 28 25-34 PG Mean Corpuscular Hemoglobin Concent 33 32-36 G/DL Red Cell Distribution Width 13.3 10.0-14.5 % Platelet Count 260 130-400 10^3/uL Mean Platelet Volume 9.3 7.4-10.4 FL Neutrophils (%) (Auto) 58 42-75 % Lymphocytes (%) (Auto) 34 12-44 % Monocytes (%) (Auto) 6 0-12 % Eosinophils (%) (Auto) 1 0-10 % Basophils (%) (Auto) 0 0-10 % Neutrophils # (Auto) 5.4 1.8-7.8 X 10^3 Lymphocytes # (Auto) 3.2 1.0-4.0 X 10^3 Monocytes # (Auto) 0.6 0.0-1.0 X 10^3 Eosinophils # (Auto) 0.1 0.0-0.3 10^3/uL Basophils # (Auto) 0.0 0.0-0.1 10^3/uL Sodium Level 134 L 135-145 MMOL/L Potassium Level 3.8 3.6-5.0 MMOL/L Chloride Level 103 98-107 MMOL/L Carbon Dioxide Level 20 L 21-32 MMOL/L Anion Gap 11 5-14 MMOL/L Blood Urea Nitrogen 14 7-18 MG/DL Creatinine 0.91 0.60-1.30 MG/DL Estimat Glomerular Filtration Rate > 60 BUN/Creatinine Ratio 15 Glucose Level 99 70-105 MG/DL Calcium Level 9.4 8.5-10.1 MG/DL Corrected Calcium 9.3 8.5-10.1 MG/DL Total Bilirubin 0.7 0.1-1.0 MG/DL Aspartate Amino Transf (AST/SGOT) 19 5-34 U/L Alanine Aminotransferase (ALT/SGPT) 23 0-55 U/L Alkaline Phosphatase 81 40-136 U/L C-Reactive Protein High Sensitivity 0.23 0.00-0.50 MG/DL Total Protein 7.7 6.4-8.2 GM/DL Albumin 4.1 3.2-4.5 GM/DL Lipase 69 8-78 U/L Serum Test, Qualitative NEGATIVE NEGATIVE Micro Results Microbiology 08/27/18 Influenza Types A,B Antigen (SHERICE) - Final, Complete My Orders Orders - NISH DAVALOS MD Cbc With Automated Diff (08/27/18 20:53) Comprehensive Metabolic Panel (08/27/18 20:53) Hs C Reactive Protein (08/27/18 20:53) Hcg,Qualitative Serum (08/27/18 20:53) Lipase (08/27/18 20:53) Saline Lock/Iv-Start (08/27/18 20:53) Ns Iv 1000 Ml (Sodium Chloride 0.9%) (08/27/18 20:53) Influenza A And B Antigens (08/27/18 20:53) Ondansetron Injection (Zofran Injectio (08/27/18 21:00) Hyoscyamine Sl Tablet (Levsin Sl Tablet) (08/27/18 21:00) Chest Pa/Lat (2 View) (08/27/18 20:53) Medications Given in ED Current Medications Medications Dose Ordered Sig/Joan Route Start Time Stop Time Status Last Admin Dose Admin Hyoscyamine Sulfate 0.25 mg ONCE ONCE SL 08/27/18 21:00 08/27/18 21:01 DC 08/27/18 21:09 0.25 MG Ondansetron HCl 8 mg ONCE ONCE IVP 08/27/18 21:00 08/27/18 21:01 DC 08/27/18 21:08 8 MG Sodium Chloride 1,000 ml @ 0 mls/hr Q0M ONCE IV 08/27/18 20:53 08/27/18 20:56 DC 08/27/18 21:08 0 MLS/HR Vital Signs/I&O 08/27/18 20:35 Temp 97.6 Pulse 71 Resp 18 B/P (MAP) 114/84 (94) Pulse Ox 97 O2 Delivery Room Air Capillary Refill : Less Than 3 Seconds Blood Pressure Mean: 94 Departure Impression Primary Impression: Flu-like symptoms Additional Impression: Nausea vomiting and diarrhea Disposition: 01 HOME, SELF-CARE Condition: Improved Departure-Patient Inst. Decision time for Depature: 22:12 Referrals: LIYA ARVIZU MD (PCP/Family) Primary Care Physician Patient Instructions: Diarrhea in Adolescents and Adults, Nausea and Vomiting, Adult Add. Discharge Instructions: Hydrate well with clear liquids. Observe a clear liquid diet until otherwise instructed by your doctor directing your procedure on Tuesday. Please call the physician's office tomorrow for further instructions before taking any further bowel prep medications. Return to care if you have worsening symptoms. You may take Zofran (ondansetron) dissolved under the tongue every 4 hours as needed for nausea and vomiting. You may take Levsin (hyoscyamine) dissolved under the tongue every 4 hours as needed for diarrhea or bowel cramping. All discharge instructions reviewed with patient and/or family. Voiced understanding. NISH DAVALOS MD Aug 27, 2018 21:21
[2018-08-27 21:39] LABS: ALANINE AMINOTRANSFERASE 23 U/L (0-55); ALBUMIN 4.1 GM/DL (3.2-4.5); ALKALINE PHOSPHATASE 81 U/L (40-136); BILIRUBIN,TOTAL 0.7 MG/DL (0.1-1.0); BUN/CREATININE RATIO 15; CALCIUM 9.4 MG/DL (8.5-10.1); CARBON DIOXIDE 20 MMOL/L (21-32); CHLORIDE 103 MMOL/L (98-107); CREATININE SERUM 0.91 MG/DL (0.60-1.30); GFR ESTIMATED > 60; GLUCOSE 99 MG/DL (70-105); LIPASE 69 U/L (8-78); POTASSIUM 3.8 MMOL/L (3.6-5.0); SODIUM 134 MMOL/L (135-145); TOTAL PROTEIN 7.7 GM/DL (6.4-8.2)
--- NOTE | 2018-08-27 22:09 | Diagnostic Imaging Report ---
INDICATION: Cough. TECHNIQUE: Two view chest 9:59 PM CORRELATION STUDY: 07/23/2018 FINDINGS: Rightward curvature lower thoracic spine resulting in distortion of the chest anatomy. Given this, heart size, mediastinum, and vasculature overall within normal limits. Lung juarez appearing generally clear. No consolidating infiltrate. Slight deformity about the chest wall. Advanced degenerative changes about the thoracic spine. IMPRESSION: 1. Negative for acute findings of the chest. Dictated by: Dictated on workstation # [id number]
[2018-08-27] MEDS ORDERED: RX-HYOSCYAMINE 0.125 MG SL (LEVSIN) PPK#6 SL STA (22:10)
[2018-08-27] MEDS ORDERED: RX-ONDANSETRON 4 MG ODT (ZOFRAN) PPK #4 SL STA (22:10)
[2018-08-27 22:23] VITALS: BP 110/75
== END 2018-08-27 22:18 | disposition home or self-care (01) ==
LOC: EDUNIT# 20:22 → ER 20:24
DX: J10.1 Influenza due to other identified influenza virus with other respiratory manifestations (principal); R11.2 Nausea with vomiting, unspecified; R19.7 Diarrhea, unspecified; J44.9 Chronic obstructive pulmonary disease, unspecified; K21.9 Gastro-esophageal reflux disease without esophagitis; E03.9 Hypothyroidism, unspecified; F41.9 Anxiety disorder, unspecified; F32.9 Major depressive disorder, single episode, unspecified; Z80.7 Family history of other malignant neoplasms of lymphoid, hematopoietic and related tissues; Z87.440 Personal history of urinary (tract) infections; Z88.2 Allergy status to sulfonamides; Z88.5 Allergy status to narcotic agent; Z88.8 Allergy status to other drugs, medicaments and biological substances; Z91.041 Radiographic dye allergy status; Z94.0 Kidney transplant status; Z87.19 Personal history of other diseases of the digestive system
CPT/HCPCS: 36415; 71046; 80053; 81000; 83690; 84703; 85025; 86141; 87804

== ENCOUNTER → 2018-09-08 | Outpatient (CLI) | payer MEDICAID ==
[~2018-09-08] MED LIST changes: +SIME125C PO
[2018-09-08 09:29] LABS: BASOPHILS % (AUTO) 0 % (0-10); EOSINOPHILS # (AUTO) 0.1 10^3/uL (0.0-0.3); EOSINOPHILS % (AUTO) 2 % (0-10); HEMATOCRIT 46 % (35-52); HEMOGLOBIN 14.7 G/DL (11.5-16.0); LYMPHOCYTES # (AUTO) 2.3 X 10^3 (1.0-4.0); LYMPHOCYTES % (AUTO) 41 % (12-44); MEAN CORPUSCULAR HEMOGLOBIN 28 PG (25-34); MEAN CORPUSCULAR HGB CONC 32 G/DL (32-36); MEAN CORPUSCULAR VOLUME 87 FL (80-99); MEAN PLATELET VOLUME 9.6 FL (7.4-10.4); MONOCYTES # (AUTO) 0.5 X 10^3 (0.0-1.0); MONOCYTES % (AUTO) 8 % (0-12); NEUTROPHILS # (AUTO) 2.6 X 10^3 (1.8-7.8); NEUTROPHILS % (AUTO) 48 % (42-75); PLATELET COUNT 266 10^3/uL (130-400); RED BLOOD COUNT 5.32 10^6/uL (4.35-5.85); RED CELL DISTRIBUTION WIDTH 13.1 % (10.0-14.5); WHITE BLOOD COUNT 5.5 10^3/uL (4.3-11.0)
[2018-09-08 09:48] LABS: BACTERIA,URINE NEGATIVE /HPF; BILIRUBIN,URINE NEGATIVE (NEGATIVE); CLARITY,URINE CLEAR; COLOR,URINE YELLOW; GLUCOSE, URINE (UA) NEGATIVE (NEGATIVE); KETONES,URINE NEGATIVE (NEGATIVE); LEUKOCYTE ESTERASE ,URINE 1+ (NEGATIVE); NITRITE,URINE NEGATIVE (NEGATIVE); PH,URINE 6 (5-9); PROTEIN,URINE NEGATIVE (NEGATIVE); UROBILINOGEN,URINE NORMAL (NORMAL); WBC,URINE 0-2 /HPF
[2018-09-08 09:49] LABS: BUN/CREATININE RATIO 20; CALCIUM 9.7 MG/DL (8.5-10.1); CARBON DIOXIDE 16 MMOL/L (21-32); CHLORIDE 112 MMOL/L (98-107); CREATINE KINASE 82 U/L (29-168); CREATININE SERUM 0.93 MG/DL (0.60-1.30); GFR ESTIMATED > 60; GLUCOSE 92 MG/DL (70-105); MAGNESIUM 1.9 MG/DL (1.8-2.4); PHOSPHORUS 3.2 MG/DL (2.3-4.7); POTASSIUM 4.4 MMOL/L (3.6-5.0); SODIUM 140 MMOL/L (135-145); URIC ACID 4.8 MG/DL (2.6-7.2)
[2018-09-08 10:01] LABS: URINE CREATININE FOR RATIO 65 MG/DL (30-125); URINE PROTEIN FOR RATIO ONLY < 6 MG/DL (6-12)
== END ==
LOC: LAB 09:05
PROVIDERS: ATTEND Internal Medicine Nephrology
DX: N39.0 Urinary tract infection, site not specified (principal); N25.81 Secondary hyperparathyroidism of renal origin; Z94.0 Kidney transplant status; Z92.25 Personal history of immunosuppression therapy
CPT/HCPCS: 36415; 80069; 80197; 81000; 82550; 82570; 83735; 84156; 84550; 85025

== ENCOUNTER 2018-12-17 23:40 | Emergency (ER) | payer MEDICAID ==
[~2018-12-17] VITALS: Ht 170.2 cm; Wt 107.0 kg
--- OUTSIDE RECORDS SUMMARY | 2018-12-17 23:51 | XMS REPORT | Continuity of Care Document ---
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 NISH DAVALOS MD, Ot Z91.041 RADIOGRAPHIC DYE ALLERGY STATUS 08/27/2018 ANOOP MOLINA, NISH Cartwright Ot Z94.0 KIDNEY TRANSPLANT STATUS 08/30/2018 ANOOP MOLINA, NISH Cartwright Ot E03.9 HYPOTHYROIDISM, UNSPECIFIED 08/30/2018 ANOOP MOLINA, NISH Cartwright Ot F32.9 MAJOR DEPRESSIVE DISORDER, SINGLE EPISOD 08/30/2018 NISH DAVALOS MD, Ot F41.9 ANXIETY DISORDER, UNSPECIFIED 08/30/2018 ANOOP MOLINA, NISH Cartwright Ot J10.1 FLU DUE TO OT IDENT INFLUENZA VIRUS W O 08/30/2018 ANOOP MOLINA, NISH Cartwright Ot J44.9 CHRONIC OBSTRUCTIVE PULMONARY DISEASE, U 08/30/2018 NISH DAVALOS MD, Ot K21.9 GASTRO-ESOPHAGEAL REFLUX DISEASE WITHOUT 08/30/2018 NISH DAVALOS MD, Ot R11.2 NAUSEA WITH VOMITING, UNSPECIFIED 08/30/2018 NISH DAVALOS MD Ot R19.7 DIARRHEA, UNSPECIFIED 08/30/2018 ANOOP MOLINA, NISH Cartwright Ot R51 HEADACHE 08/30/2018 NISH DAVALOS MD, Ot Z80.7 [facility]OL 08/30/2018 NISH DAVALOS MD, Ot Z87.19 PERSONAL HISTORY OF OTHER DISEASES OF TH 08/30/2018 NISH DAVALOS MD, Ot Z87.440 PERSONAL HISTORY OF URINARY (TRACT) INFE 08/30/2018 NISH DAVALOS MD, Ot Z88.2 ALLERGY STATUS TO SULFONAMIDES STATUS 08/30/2018 NISH DAVALOS MD Ot Z88.5 ALLERGY STATUS TO NARCOTIC AGENT STATUS 08/30/2018 NISH DAVALOS MD, Ot Z88.8 ALLERGY STATUS TO OTH DRUG/MEDS/BIOL SUB 08/30/2018 NISH DAVALOS MD Ot Z91.041 RADIOGRAPHIC DYE ALLERGY STATUS 08/30/2018 NISH DAVALOS MD Ot Z94.0 KIDNEY TRANSPLANT STATUS 09/11/2018 JOHN ORTIZ MOLD CLOSER Ot R10.11 RIGHT UPPER QUADRANT PAIN 09/11/2018 JOHN ORTIZ MOLD CLOSER Ot R10.13 EPIGASTRIC PAIN 09/11/2018 JOHN ORTIZ MOLD CLOSER Ot R19.7 DIARRHEA, UNSPECIFIED 10/25/2018 GERMAINE GRANDE MD Ot N25.81 SECONDARY HYPERPARATHYROIDISM OF RENAL O 10/25/2018 GERMAINE GRANDE MD Ot N39.0 URINARY TRACT INFECTION, SITE NOT SPECIF 10/25/2018 GERMAINE GRANDE MD Ot Z92.25 PERSONAL HISTORY OF IMMUNOSUPRESSION THE 10/25/2018 GERMAINE GRANDE MD Ot Z94.0 KIDNEY TRANSPLANT STATUS Procedures Code [place] [address] ROUTINE VENIPUNCTURE 06/04/2014 NEPHROLOG DANIELA NEPHROLOGY, 06/04/2014 09466 UA W/ CULTURE IF INDICATED 06/04/2014 90247 CMP 06/04/2014 [id number] GFR CALC (RESULT ONLY) 06/04/2014 35791 [employer]OX 06/19/2014 28135 XRAY CERVICAL SPINE, 2 OR 3 VIEWS 06/27/2014 84713 TEST, URINE (IN- HOUSE) 08/06/2014 83665 UA W/ CULTURE IF INDICATED 08/06/2014 21571 WART DESTRUCT 1-14 (CRYO) 08/13/2014 49835 ROUTINE VENIPUNCTURE 08/23/2014 71646 FSH 08/23/2014 64660 LH 08/23/2014 95997 ROUTINE VENIPUNCTURE 08/28/2014 83095 CBC 08/28/2014 [id number] GFR CALC (RESULT ONLY) 08/28/2014 06953 RENAL PROFILE 08/28/2014 PRO/CRE URINE PROTEIN TO CREATNINE RATIO 08/28/2014 19368 CA 125 08/29/2014 80671 SKIN TISSUE PROCEDURE 09/03/2014 15357 ROUTINE VENIPUNCTURE 09/10/2014 88193 CBC 09/10/2014 80732 BMP 09/10/2014 NEPHROLOG [facility] NEPHROLOGY, 09/20/2014 34248 STREP A (IN-HOUSE) 09/25/2014 77597 ROUTINE VENIPUNCTURE 10/18/2014 06018 CBC 10/18/2014 [id number] GFR CALC (RESULT ONLY) 10/18/2014 86878 CMP 10/18/2014 86139 PTT (THROMBOPLASTIN TIME, PARTIAL) 10/19/2014 91023 ROUTINE VENIPUNCTURE 10/30/2014 [id number] GFR CALC (RESULT ONLY) 10/30/2014 05261 CMP 10/30/2014 69568 ROUTINE VENIPUNCTURE 11/13/2014 1080313 GFR CALC (RESULT ONLY) 11/13/2014 97482 CMP 11/13/2014 75785 TEST, URINE (IN- HOUSE) 11/16/2014 41759 ROUTINE VENIPUNCTURE 02/19/2015 75357 CBC 02/19/2015 32103 RENAL PROFILE 02/19/2015 95258 URIC ACID 02/19/2015 [id number] GFR CALC (RESULT ONLY) 02/19/2015 PRO/CRE URINE PROTEIN TO CREATNINE RATIO 02/19/2015 06078 VITAMIN D 25-HYDROXY (D2,D3 , TOTAL) 02/19/2015 24478 CK-MB 02/19/2015 71782 A1C (RML) 02/19/2015 [id number] PTH INTACT TAI (RESULT ONLY) 02/19/2015 [id number] CALCIUM (RESULT ONLY) 02/19/2015 89805 CULTURE URINE 02/21/2015 43431 PTH (intact) (ORDER ONLY) 02/21/2015 S0280 HEALTH [...] (mass/volume) < ng/ mL <0.30 Lipase - 06/06/16 19:17 Lipase 36 U/L 8-78 Complete urinalysis [...] i.cardiac measurement (mass/volume) < ng/ mL <0.30 Complete blood count (CBC) with automated white blood cell (WBC) differential - 02/13/18 19:30 Blood leukocytes automated count (number/volume) 9.3 10*3/uL 4.3-11.0 Blood erythrocytes automated count (number/volume) 4.68 10*6/uL 4.35-5.85 Venous blood hemoglobin measurement (mass/volume) 13.3 g/dL 11.5-16.0 Blood hematocrit (volume fraction) 41 % 35-52 Automated erythrocyte mean corpuscular volume 87 [foz_us] 80-99 Automated erythrocyte mean corpuscular hemoglobin (mass per erythrocyte) 28 pg 25-34 Automated erythrocyte mean corpuscular hemoglobin concentration measurement ( mass/volume) 33 g/dL 32-36 Automated erythrocyte distribution width ratio 13.4 % 10.0-14.5 Automated blood platelet count (count/volume) 318 10*3/uL 130-400 Automated blood platelet mean volume measurement 9.4 [foz_us] 7.4-10.4 Automated blood neutrophils/100 leukocytes 56 % 42-75 Automated blood lymphocytes/100 leukocytes 33 % 12-44 Blood monocytes/100 leukocytes 9 % 0-12 Automated blood eosinophils/100 leukocytes 2 % 0-10 Automated blood basophils/100 leukocytes 0 % 0-10 Blood neutrophils automated count (number/volume) 5.2 10*3 1.8-7.8 Blood lymphocytes automated count (number/volume) 3.1 10*3 1.0-4.0 Blood monocytes automated count (number/volume) 0.8 10*3 0.0-1.0 Automated eosinophil count 0.2 10*3/uL 0.0-0.3 Automated blood basophil count (count/volume) 0.0 10*3/uL 0.0-0.1 Blood lactic acid measurement (moles/volume) - 02/13/18 19:30 Blood lactic acid measurement (moles/volume) 1.43 mmol/L 0.50-2.00 Comprehensive metabolic panel - 02/13/18 19:30 Serum or plasma sodium measurement (moles/volume) 139 mmol/L 135-145 Serum or plasma potassium measurement (moles/volume) 4.3 mmol/L 3.6-5.0 Serum or plasma chloride measurement (moles/volume) 110 mmol/L 98-107 Carbon dioxide 22 mmol/L 21-32 Serum or plasma anion gap determination (moles/volume) 7 mmol/L 5-14 Serum or plasma urea nitrogen measurement (mass/volume) 18 mg/dL 7-18 Serum or plasma creatinine measurement (mass/volume) 0.90 mg/dL 0.60-1.30 Serum or plasma urea nitrogen/creatinine mass ratio 20 NRG Serum or plasma creatinine measurement with calculation of estimated glomerular filtration rate > NRG Serum or plasma glucose measurement (mass/volume) 82 mg/dL 70-105 Serum or plasma calcium measurement (mass/volume) 9.5 mg/dL 8.5-10.1 Serum or plasma total bilirubin measurement (mass/volume) 0.3 mg/dL 0.1-1.0 Serum or plasma alkaline phosphatase measurement (enzymatic activity/volume) 74 U/L 40-136 Serum or plasma aspartate aminotransferase measurement (enzymatic activity/ volume) 21 U/L 5-34 Serum or plasma alanine aminotransferase measurement (enzymatic activity/volume ) 33 U/L 0-55 Serum or plasma protein measurement (mass/volume) 7.9 g/dL 6.4-8.2 Serum or plasma albumin measurement (mass/volume) 4.2 g/dL 3.2-4.5 Serum or plasma phosphate measurement (mass/volume) - 02/13/18 19:30 Serum or plasma phosphate measurement (mass/volume) 3.1 mg/dL 2.3-4.7 Magnesium - 02/13/18 19:30 Magnesium 1.6 mg/dL 1.8-2.4 Lipase - 02/13/18 19:30 Lipase 67 U/L 8-78 Serum or plasma C reactive protein measurement (mass/volume) - 02/13/18 19:30 Serum or plasma C reactive protein measurement (mass/volume) 0.12 mg /dL 0.00-0.50 Complete urinalysis with reflex to culture - 02/13/18 19:40 Urine color determination YELLOW NRG Urine clarity determination CLEAR NRG Urine pH measurement by test strip 5 5-9 Specific gravity of urine by test strip 1.010 1.016- 1.022 Urine protein assay by test strip, semi-quantitative NEGATIVE NEGATIVE Urine glucose detection by automated test strip NEGATIVE NEGATIVE Erythrocytes detection in urine sediment by light microscopy 1+ NEGATIVE Urine ketones detection by automated test strip NEGATIVE NEGATIVE Urine nitrite detection by test strip NEGATIVE NEGATIVE Urine total bilirubin detection by test strip NEGATIVE NEGATIVE Urine urobilinogen measurement by automated test strip (mass/volume) NORMAL NORMAL Urine leukocyte esterase detection by dipstick 3+ NEGATIVE Automated urine sediment erythrocyte count by microscopy (number/high power field) [HPF] NRG Automated urine sediment leukocyte count by microscopy (number/high power field ) [HPF] NRG Bacteria detection in urine sediment by light microscopy TRACE NRG Squamous epithelial cells detection in urine sediment by light microscopy 2-5 NRG Crystals detection in urine sediment by light microscopy NONE NRG Casts detection in urine sediment by light microscopy NONE NRG Mucus detection in urine sediment by light microscopy NEGATIVE NRG Complete urinalysis with reflex to culture YES NRG Urine drug screening test - 02/13/18 19:40 Urine phencyclidine detection by screening method NEGATIVE NEGATIVE Urine benzodiazepines detection by screening method NEGATIVE NEGATIVE Urine cocaine detection NEGATIVE NEGATIVE Urine amphetamines detection by screening method NEGATIVE NEGATIVE Urine methamphetamine detection by screening method NEGATIVE NEGATIVE Urine cannabinoids detection by screening method NEGATIVE NEGATIVE Urine opiates detection by screening method NEGATIVE NEGATIVE Urine barbiturates detection NEGATIVE NEGATIVE Screening urine tricyclic antidepressants detection NEGATIVE NEGATIVE Urine methadone detection by screening method NEGATIVE NEGATIVE Urine oxycodone detection NEGATIVE NEGATIVE Urine propoxyphene detection NEGATIVE NEGATIVE Bacterial urine culture - 02/13/18 19:40 URINE CULTURE RESULTS <10,000/ML NRG Urinalysis - 03/27/18 09:53 Icotest N/A Negative Urine Volume Urine Volume Sufficient (10mL) Urine Yeast No Yeast present Urine-Appearance Clear Clear Urine-Bacteria Negative Urine-Bilirubin Negative Negative Urine-Blood Negative Negative Urine-Color Yellow Colorless-Lt. Yellow Urine-Glucose Negative Negative Urine-Ketones Negative Negative Urine-Leukocytes Negative Negative Urine-Mucus 1+ Urine-Nitrite Negative Negative Urine-Other Urine Saved if Culture Needed (48hrs from time of collection) Urine-pH 6.0 5-8.5 Urine-Protein Negative Negative Urine-RBC Rare/HPF Urine-Specific [place] 1.015 1.000-1.030 Urine-WBC Negative Urobilinogen 0.2 E.U./dL 0.2-1.0 Automated blood complete blood count (hemogram) panel - 04/17/18 09:32 Blood leukocytes automated count (number/volume) 7.6 10*3/uL 4.3-11.0 Blood erythrocytes automated count (number/volume) 5.21 10*6/uL 4.35-5.85 Venous blood hemoglobin measurement (mass/volume) 14.6 g/dL 11.5-16.0 Blood hematocrit (volume fraction) 45 % 35-52 Automated erythrocyte mean corpuscular volume 86 [foz_us] 80-99 Automated erythrocyte mean corpuscular hemoglobin (mass per erythrocyte) 28 pg 25-34 Automated erythrocyte mean corpuscular hemoglobin concentration measurement ( mass/volume) 33 g/dL 32-36 Automated erythrocyte distribution width ratio 13.0 % 10.0-14.5 Automated blood platelet count (count/volume) 298 10*3/uL 130-400 Automated blood platelet mean volume measurement 9.4 [foz_us] 7.4-10.4 Serum or plasma renal function panel (Na, K, Cl, CO2, BUN, Cr, glucose,Ca, phos , alb) - 04/17/18 09:32 Serum or plasma sodium measurement (moles/volume) 140 mmol/L 135-145 Serum or plasma potassium measurement (moles/volume) 4.6 mmol/L 3.6-5.0 Serum or plasma chloride measurement (moles/volume) 108 mmol/L 98-107 Carbon dioxide 22 mmol/L 21-32 Serum or plasma anion gap determination (moles/volume) 10 mmol/L 5-14 Serum or plasma urea nitrogen measurement (mass/volume) 16 mg/dL 7-18 Serum or plasma creatinine measurement (mass/volume) 0.84 mg/dL 0.60-1.30 Serum or plasma urea nitrogen/creatinine mass ratio 19 NRG Serum or plasma creatinine measurement with calculation of estimated glomerular filtration rate > NRG Serum or plasma glucose measurement (mass/volume) 91 mg/dL 70-105 Serum or plasma calcium measurement (mass/volume) 10.0 mg/dL 8.5-10.1 Serum or plasma albumin measurement (mass/volume) 4.2 g/dL 3.2-4.5 Serum or plasma phosphate measurement (mass/volume) 3.4 mg/dL 2.3-4.7 FK 506 - 04/17/18 09:32 Tacrolimus blood 5.0 % NRG Complete urinalysis with reflex to culture - 04/17/18 09:40 Urine color determination YELLOW NRG Urine clarity determination CLEAR NRG Urine pH measurement by test strip 6 5-9 Specific gravity of urine by test strip 1.010 1.016- 1.022 Urine protein assay by test [...] count by microscopy (number/high power field ) RARE NRG Bacteria detection in urine sediment by light microscopy NEGATIVE NRG Squamous epithelial cells detection in urine sediment by light microscopy RARE NRG Crystals detection in urine sediment by light microscopy NONE NRG Casts detection in urine sediment by light microscopy NONE NRG Mucus detection in urine sediment by light microscopy NEGATIVE NRG Complete urinalysis with reflex to culture NO NRG Urine protein/creatinine mass ratio - 04/17/18 09:40 Urine protein measurement (mass/volume) < mg/dL 6-12 Urine creatinine measurement (mass/volume) 70 mg/dL 30- 125 Urine protein/creatinine mass ratio TNP NRG Automated blood complete blood count (hemogram) panel - 04/27/18 10:28 Blood leukocytes automated count (number/volume) 5.6 10*3/uL 4.3-11.0 Blood erythrocytes automated count (number/volume) 5.18 10*6/uL 4.35-5.85 Venous blood hemoglobin measurement (mass/volume) 14.4 g/dL 11.5-16.0 Blood hematocrit (volume fraction) 44 % 35-52 Automated erythrocyte mean corpuscular volume 85 [foz_us] 80-99 Automated erythrocyte mean corpuscular hemoglobin (mass per erythrocyte) 28 pg 25-34 Automated erythrocyte mean corpuscular hemoglobin concentration measurement ( mass/volume) 33 g/dL 32-36 Automated erythrocyte distribution width ratio 12.9 % 10.0-14.5 Automated blood platelet count (count/volume) 291 10*3/uL 130-400 Automated blood platelet mean volume measurement 9.3 [foz_us] 7.4-10.4 Serum or plasma renal function panel (Na, K, Cl, CO2, BUN, Cr, glucose,Ca, phos , alb) - 04/27/18 10:28 Serum or plasma sodium measurement (moles/volume) 139 mmol/L 135-145 Serum or plasma potassium measurement (moles/volume) 4.5 mmol/L 3.6-5.0 Serum or plasma chloride measurement (moles/volume) 109 mmol/L 98-107 Carbon dioxide 21 mmol/L 21-32 Serum or plasma anion gap determination (moles/volume) 9 mmol/L 5-14 Serum or plasma urea nitrogen measurement (mass/volume) 16 mg/dL 7-18 Serum or plasma creatinine measurement (mass/volume) 0.91 mg/dL 0.60-1.30 Serum or plasma urea nitrogen/creatinine mass ratio 18 NRG Serum or plasma creatinine measurement with calculation of estimated glomerular filtration rate > NRG Serum or plasma glucose measurement (mass/volume) 97 mg/dL 70-105 Serum or plasma calcium measurement (mass/volume) 9.7 mg/dL 8.5-10.1 Serum or plasma albumin measurement (mass/volume) 4.0 g/dL 3.2-4.5 Serum or plasma phosphate measurement (mass/volume) 3.5 mg/dL 2.3-4.7 Complete urinalysis with reflex to culture - 04/27/18 10:30 Urine color determination YELLOW NRG Urine clarity determination SLIGHTLY CLOUDY NRG Urine pH measurement by test strip 6 5-9 Specific gravity of urine by test strip 1.015 1.016- 1.022 Urine protein assay by test [...] NORMAL Urine leukocyte esterase detection by dipstick 2+ NEGATIVE Automated urine sediment erythrocyte count by microscopy (number/high power field) NONE NRG Automated urine sediment leukocyte count by microscopy (number/high power field ) [HPF] NRG Bacteria detection in urine sediment by light microscopy NEGATIVE NRG Squamous epithelial cells detection in urine sediment by light microscopy 0-2 NRG Crystals detection in urine sediment by light microscopy NONE NRG Casts detection in urine sediment by light microscopy NONE NRG Mucus detection in urine sediment by light microscopy NEGATIVE NRG Complete urinalysis with reflex to culture NO NRG Urine protein/creatinine mass ratio - 04/27/18 10:30 Urine protein measurement (mass/volume) < mg/dL 6-12 Urine creatinine measurement (mass/volume) 88 mg/dL 30- 125 Urine protein/creatinine mass ratio TNP NRG Surgical Pathology - 04/27/18 14:25 Surg Path Sent to [facility] Complete blood count (CBC) with automated white blood cell (WBC) differential - 05/01/18 10:58 Blood leukocytes automated count (number/volume) 6.6 10*3/uL 4.3-11.0 Blood erythrocytes automated count (number/volume) 4.90 10*6/uL 4.35-5.85 Venous blood hemoglobin measurement (mass/volume) 13.7 g/dL 11.5-16.0 Blood hematocrit (volume fraction) 42 % 35-52 Automated erythrocyte mean corpuscular volume 85 [foz_us] 80-99 Automated erythrocyte mean corpuscular hemoglobin (mass per erythrocyte) 28 pg 25-34 Automated erythrocyte mean corpuscular hemoglobin concentration measurement ( mass/volume) 33 g/dL 32-36 Automated erythrocyte distribution width ratio 13.1 % 10.0-14.5 Automated blood platelet count (count/volume) 299 10*3/uL 130-400 Automated blood platelet mean volume measurement 9.3 [foz_us] 7.4-10.4 Automated blood neutrophils/100 leukocytes 55 % 42-75 Automated blood lymphocytes/100 leukocytes 32 % 12-44 Blood monocytes/100 leukocytes 11 % 0-12 Automated blood eosinophils/100 leukocytes 2 % 0-10 Automated blood basophils/100 leukocytes 0 % 0-10 Blood neutrophils automated count (number/volume) 3.7 10*3 1.8-7.8 Blood lymphocytes automated count (number/volume) 2.1 10*3 1.0-4.0 Blood monocytes automated count (number/volume) 0.7 10*3 0.0-1.0 Automated eosinophil count 0.1 10*3/uL 0.0-0.3 Automated blood basophil count (count/volume) 0.0 10*3/uL 0.0-0.1 Comprehensive metabolic panel - 05/01/18 10:58 Serum or plasma sodium measurement (moles/volume) 139 mmol/L 135-145 Serum or plasma potassium measurement (moles/volume) 4.4 mmol/L 3.6-5.0 Serum or plasma chloride measurement (moles/volume) 109 mmol/L 98-107 Carbon dioxide 21 mmol/L 21-32 Serum or plasma anion gap determination (moles/volume) 9 mmol/L 5-14 Serum or plasma urea nitrogen measurement (mass/volume) 17 mg/dL 7-18 Serum or plasma creatinine measurement (mass/volume) 0.81 mg/dL 0.60-1.30 Serum or plasma urea nitrogen/creatinine mass ratio 21 NRG Serum or plasma creatinine measurement with calculation of estimated glomerular filtration rate > NRG Serum or plasma glucose measurement (mass/volume) 104 mg/dL 70-105 Serum or plasma calcium measurement (mass/volume) 9.4 mg/dL 8.5-10.1 Serum or plasma total bilirubin measurement (mass/volume) 0.4 mg/dL 0.1-1.0 Serum or plasma alkaline phosphatase measurement (enzymatic activity/volume) 90 U/L 40-136 Serum or plasma aspartate aminotransferase measurement (enzymatic activity/ volume) 19 U/L 5-34 Serum or plasma alanine aminotransferase measurement (enzymatic activity/volume ) 25 U/L 0-55 Serum or plasma protein measurement (mass/volume) 7.5 g/dL 6.4-8.2 Serum or plasma albumin measurement (mass/volume) 3.9 g/dL 3.2-4.5 Serum or plasma lithium measurement (moles/volume) - 05/01/18 10:58 BNP level 54.6 pg/mL <100.0 Complete urinalysis with reflex to culture - 05/01/18 11:11 Urine color determination YELLOW NRG Urine clarity determination CLEAR NRG Urine pH measurement by test strip 6 5-9 Specific gravity of urine by test strip 1.010 1.016- 1.022 Urine protein assay by test [...] erythrocyte count by microscopy (number/high power field) RARE NRG Automated urine sediment leukocyte count by microscopy (number/high power field ) [HPF] NRG Bacteria detection in urine sediment by light microscopy TRACE NRG Squamous epithelial cells detection in urine sediment by light microscopy 5-10 NRG Crystals detection in urine sediment by light microscopy NONE NRG Casts detection in urine sediment by light microscopy NONE NRG Mucus detection in urine sediment by light microscopy NEGATIVE NRG Complete urinalysis with reflex to culture NO NRG Serum or plasma troponin i.cardiac measurement (mass/volume) - 05/01/18 12:26 Serum or plasma troponin i.cardiac measurement (mass/volume) < ng/ mL <0.30 Complete blood count (CBC) with automated white blood cell (WBC) differential - 07/23/18 17:45 Blood leukocytes automated count (number/volume) 9.3 10*3/uL 4.3-11.0 Blood erythrocytes automated count (number/volume) 4.71 10*6/uL 4.35-5.85 Venous blood hemoglobin measurement (mass/volume) 13.6 g/dL 11.5-16.0 Blood hematocrit (volume fraction) 41 % 35-52 Automated erythrocyte mean corpuscular volume 87 [foz_us] 80-99 Automated erythrocyte mean corpuscular hemoglobin (mass per erythrocyte) 29 pg 25-34 Automated erythrocyte mean corpuscular hemoglobin concentration measurement ( mass/volume) 33 g/dL 32-36 Automated erythrocyte distribution width ratio 13.2 % 10.0-14.5 Automated blood platelet count (count/volume) 297 10*3/uL 130-400 Automated blood platelet mean volume measurement 9.5 [foz_us] 7.4-10.4 Automated blood neutrophils/100 leukocytes 65 % 42-75 Automated blood lymphocytes/100 leukocytes 26 % 12-44 Blood monocytes/100 leukocytes 8 % 0-12 Automated blood eosinophils/100 leukocytes 1 % 0-10 Automated blood basophils/100 leukocytes 0 % 0-10 Blood neutrophils automated count (number/volume) 6.1 10*3 1.8-7.8 Blood lymphocytes automated count (number/volume) 2.4 10*3 1.0-4.0 Blood monocytes automated count (number/volume) 0.7 10*3 0.0-1.0 Automated eosinophil count 0.1 10*3/uL 0.0-0.3 Automated blood basophil count (count/volume) 0.0 10*3/uL 0.0-0.1 PT panel in platelet poor plasma by coagulation assay - 07/23/18 17:45 Prothrombin time (PT) in platelet poor plasma by coagulation assay 13.8 s 12.2-14.7 INR in platelet poor plasma or blood by coagulation assay 1.1 0.8-1.4 Activated partial thromboplastin time (aPTT) in platelet poor plasma bycoagulation assay - 07/23/18 17:45 Activated partial thromboplastin time (aPTT) in platelet poor plasma bycoagulation assay 31 s 24-35 Comprehensive metabolic panel - 07/23/18 17:45 Serum or plasma sodium measurement (moles/volume) 138 mmol/L 135-145 Serum or plasma potassium measurement (moles/volume) 4.0 mmol/L 3.6-5.0 Serum or plasma chloride measurement (moles/volume) 107 mmol/L 98-107 Carbon dioxide 21 mmol/L 21-32 Serum or plasma anion gap determination (moles/volume) 10 mmol/L 5-14 Serum or plasma urea nitrogen measurement (mass/volume) 19 mg/dL 7-18 Serum or plasma creatinine measurement (mass/volume) 0.94 mg/dL 0.60-1.30 Serum or plasma urea nitrogen/creatinine mass ratio 20 NRG Serum or plasma creatinine measurement with calculation of estimated glomerular filtration rate > NRG Serum or plasma glucose measurement (mass/volume) 97 mg/dL 70-105 Serum or plasma calcium measurement (mass/volume) 9.2 mg/dL 8.5-10.1 Serum or plasma total bilirubin measurement (mass/volume) 0.3 mg/dL 0.1-1.0 Serum or plasma alkaline phosphatase measurement (enzymatic activity/volume) 92 U/L 40-136 Serum or plasma aspartate aminotransferase measurement (enzymatic activity/ volume) 18 U/L 5-34 Serum or plasma alanine aminotransferase measurement (enzymatic activity/volume ) 23 U/L 0-55 Serum or plasma protein measurement (mass/volume) 7.5 g/dL 6.4-8.2 Serum or plasma albumin measurement (mass/volume) 4.0 g/dL 3.2-4.5 CALCIUM CORRECTED 9.2 mg/dL 8.5-10.1 Magnesium - 07/23/18 17:45 Magnesium 1.8 mg/dL 1.8-2.4 Serum or plasma troponin i.cardiac measurement (mass/volume) - 07/23/18 17:45 Serum or plasma troponin i.cardiac measurement (mass/volume) < ng/ mL <0.30 Myoglobin, serum - 07/23/18 17:45 Myoglobin, serum 51.5 ng/mL 10.0-92.0 Serum or plasma amylase measurement (enzymatic activity/volume) - 07/23/18 17: 45 Serum or plasma amylase measurement (enzymatic activity/volume) 71 U /L 25-125 Serum or plasma lithium measurement (moles/volume) - 07/23/18 17:45 BNP level 21.1 pg/mL <100.0 Lipase - 07/23/18 17:45 Lipase 65 U/L 8-78 Serum or plasma troponin i.cardiac measurement (mass/volume) - 07/23/18 20:20 Serum or plasma troponin i.cardiac measurement (mass/volume) < ng/ mL <0.30 Comprehensive Metabolic Panel - 07/27/18 13:09 Albumin 4.3 g/dL 3.6-5.1 ALP 108 U/L 35-130 ALT 27 U/L 6-45 Anion Gap 14 6-14 AST 23 U/L 2-40 BUN 17 mg/dL 5-25 Calcium 9.2 mg/dL 8.3-10.4 Chloride 109 mmol/L 95-114 CO2 20 mEq/L 22-33 Creat 0.99 mg/dL 0.50-1.50 eGFR 61 mL/min/1.73m2 >59 Globulin 3.6 g/dL 2.3-3.5 Glucose 68 mg/dL 70-110 Osmo 287 280-295 Potassium 3.9 mmol/L 3.5-5.3 Sodium 139 mmol/L 134-148 TBil 0.3 mg/dL 0.2-1.2 TP 7.9 g/dL 6.0-8.3 Complete urinalysis with reflex to culture - 08/27/18 20:41 Urine color determination YELLOW NRG Urine clarity determination CLEAR NRG Urine pH measurement by test strip 6 5-9 Specific gravity of urine by test strip 1.005 1.016- 1.022 Urine protein assay by test [...] NORMAL Urine leukocyte esterase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
[2018-12-18 00:08] LABS: BASOPHILS % (AUTO) 0 % (0-10); EOSINOPHILS # (AUTO) 0.2 10^3/uL (0.0-0.3); EOSINOPHILS % (AUTO) 2 % (0-10); HEMATOCRIT 43 % (35-52); LYMPHOCYTES # (AUTO) 4.8 X 10^3 (1.0-4.0); LYMPHOCYTES % (AUTO) 42 % (12-44); MEAN CORPUSCULAR HEMOGLOBIN 28 PG (25-34); MEAN CORPUSCULAR HGB CONC 33 G/DL (32-36); MEAN CORPUSCULAR VOLUME 85 FL (80-99); MEAN PLATELET VOLUME 9.6 FL (7.4-10.4); MONOCYTES # (AUTO) 1.1 X 10^3 (0.0-1.0); MONOCYTES % (AUTO) 9 % (0-12); NEUTROPHILS # (AUTO) 5.3 X 10^3 (1.8-7.8); NEUTROPHILS % (AUTO) 46 % (42-75); PLATELET COUNT 306 10^3/uL (130-400); RED CELL DISTRIBUTION WIDTH 13.5 % (10.0-14.5); WHITE BLOOD COUNT 11.4 10^3/uL (4.3-11.0)
[2018-12-18 00:09] LABS: BILIRUBIN,URINE NEGATIVE (NEGATIVE); CLARITY,URINE CLEAR; COLOR,URINE YELLOW; GLUCOSE, URINE (UA) NEGATIVE (NEGATIVE); KETONES,URINE NEGATIVE (NEGATIVE); LEUKOCYTE ESTERASE ,URINE 2+ (NEGATIVE); NITRITE,URINE NEGATIVE (NEGATIVE); PH,URINE 6 (5-9); PROTEIN,URINE NEGATIVE (NEGATIVE); UROBILINOGEN,URINE NORMAL (NORMAL)
[2018-12-18 00:15] LABS: BACTERIA,URINE TRACE /HPF; SQUAMOUS EPITHELIAL CELL,UR 0-2 /HPF
[2018-12-18 00:27] LABS: ALANINE AMINOTRANSFERASE 21 U/L (0-55); ALBUMIN 3.9 GM/DL (3.2-4.5); ALKALINE PHOSPHATASE 84 U/L (40-136); BILIRUBIN,TOTAL 0.3 MG/DL (0.1-1.0); BUN/CREATININE RATIO 19; CALCIUM 9.2 MG/DL (8.5-10.1); CARBON DIOXIDE 18 MMOL/L (21-32); CHLORIDE 108 MMOL/L (98-107); CREATININE SERUM 0.96 MG/DL (0.60-1.30); GFR ESTIMATED > 60; GLUCOSE 113 MG/DL (70-105); POTASSIUM 3.8 MMOL/L (3.6-5.0); SODIUM 140 MMOL/L (135-145); TOTAL PROTEIN 7.9 GM/DL (6.4-8.2)
[2018-12-18] MEDS ORDERED: NITR-65 PO (01:10)
--- NOTE | 2018-12-18 01:10 | ED General ---
General Chief Complaint: Glucose Problems Stated Complaint: LOW BLOOD SUGAR Nursing Triage Note: pt presents to ed with complaints of low blood sugar reading today and having difficulty keeping them up despite eating food and drinking orange juice. Nursing Sepsis Screen: No Definite Risk Allergies and Home Medications Allergies Coded Allergies: Sulfa (Sulfonamide Antibiotics) (Unverified Allergy, Unknown, 06/06/16) baclofen (Verified Allergy, Unknown, 05/01/18) codeine (Unverified Allergy, Unknown, 05/27/14) cyclobenzaprine (Unverified Allergy, Unknown, 02/10/15) influenza virus vaccine, specific (Unverified Allergy, Unknown, 05/27/14) iodine (Unverified Allergy, Unknown, 05/27/14) Home Medications Mycophenolate Mofetil 500 Mg Tablet, 750 MG PO BID, (Reported) TAKES 1 & 1/2 (500MG) TABLET Past Skrjbvo-Xegixo-Ycfddr Hx Patient Social History Alcohol Use: Rarely Uses Recreational Drug Use: No Smoking Status: Never a Smoker 2nd Hand Smoke Exposure: No Recent Foreign Travel: No Contact w/Someone Who Travel: No Recent Infectious Disease Expo: No Recent Hopitalizations: No Physical Abuse: No Sexual Abuse: No Mistreated: No Fear: No Immunizations Up To Date Tetanus Booster (TDap): Unknown PED Vaccines UTD: Yes Seasonal Allergies Seasonal Allergies: Yes Past Medical History Surgeries: Yes (DIALYSIS SHUNT, PARATHYROID REMOVAL, RENAL TRANSPLANT, hiatal hernia) Arteriovenous Shunt, Dialysis, Kidney Transplant, Parathyroidectomy, Vascular Surgery Respiratory: Yes Asthma, Chronic Bronchitis Cardiac: No Neurological: No 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 Disorders: No 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 Disorders: Denies [employer]ANCE [employer]ENT History: Menopausal Sexually Transmitted Disease: No HIV/AIDS: No Genitourinary: Yes (renal transplant) Renal Failure, UTI-Chronic Gastrointestinal: Yes Gastroesophageal Reflux, Hiatal Hernia, Ulcer Musculoskeletal: Yes Degenerate Disk Disease, Scoliosis, Chronic Back Pain Endocrine: Yes Hypothyroidsim HEENT: No Cancer: No Psychosocial: Yes Anxiety, Depression Integumentary: No Blood Disorders: No Adverse Reaction/Blood Tranf: No Family Medical History Cancer aunt grandfather (Hodgkin's) Chest pain 19 FATHER Family history: Allergy 19 FATHER 19 MOTHER (hay fever) G8 BROTHER (hay fever) G8 SISTER (hay fever) Family history: Breast disease G8 SISTER aunt Family history: Diabetes mellitus 19 FATHER Family history: Gastrointestinal disease 19 FATHER (Hernia) G8 BROTHER (crohn's) Hearing loss 19 FATHER Thyroid disease 19 MOTHER No Family History of: Abdominal aortic aneurysm Brazos's disease Alcoholism Aphasia Cancer of colon Congenital heart disease Congestive heart failure Cystic fibrosis Dementia Dysphagia Family history: Alzheimer's disease Family history: Arthritis Family history: Asthma Family history: Cardiovascular disease Family history: Coronary thrombosis Family history: Glaucoma Family history: Hypertension Family history: Osteoporosis Family history: Thyroid disorder Headache Heart disease Hereditary disease History of - anemia History of - disorder History of - respiratory disease History of drug abuse Human immunodeficiency virus (HIV) seropositivity Hypercholesterolemia Infertile Kidney disease Malignant neoplasm of lung Myocardial infarction Parkinson's disease Prostate cancer Psychotic disorder Seizure disorder Stroke Tuberculosis Visual impairment Physical Exam Vital Signs Vital Signs - First Documented 12/18/18 00:03 Temp 97.9 Pulse 97 Resp 16 B/P (MAP) 103/80 (88) Pulse Ox 97 Capillary Refill : Less Than 3 Seconds Height, Weight, BMI Height: 5'7.00" Weight: 236lbs. 0oz. 107.235344mq; 36.80 BMI Method:Stated Progress/Results/Core Measures Suspected Sepsis Recent Fever Within 48 Hours: No Infection Criteria Present: None New/Unexplained Altered Menta: No Sepsis Screen: No Definite Risk SIRS Temperature:97.9 Pulse: 97 Respiratory Rate: 16 Laboratory Tests 12/18/18 00:01: White Blood Count 11.4H Blood Pressure 103 /80 Mean: 88 Laboratory Tests 12/18/18 00:01: Creatinine 0.96, Platelet Count 306, Total Bilirubin 0.3 Results/Orders Lab Results Laboratory Tests Test 12/17/18 23:47 12/18/18 00:01 12/18/18 00:02 Range/Units Glucometer 98 70-110 MG/DL White Blood Count 11.4 H 4.3-11.0 10^3/uL Red Blood Count 5.01 4.35-5.85 10^6/uL Hemoglobin 14.0 11.5-16.0 G/DL Hematocrit 43 35-52 % Mean Corpuscular Volume 85 80-99 FL Mean Corpuscular Hemoglobin 28 25-34 PG Mean Corpuscular Hemoglobin Concent 33 32-36 G/DL Red Cell Distribution Width 13.5 10.0-14.5 % Platelet Count 306 130-400 10^3/uL Mean Platelet Volume 9.6 7.4-10.4 FL Neutrophils (%) (Auto) 46 42-75 % Lymphocytes (%) (Auto) 42 12-44 % Monocytes (%) (Auto) 9 0-12 % Eosinophils (%) (Auto) 2 0-10 % Basophils (%) (Auto) 0 0-10 % Neutrophils # (Auto) 5.3 1.8-7.8 X 10^3 Lymphocytes # (Auto) 4.8 H 1.0-4.0 X 10^3 Monocytes # (Auto) 1.1 H 0.0-1.0 X 10^3 Eosinophils # (Auto) 0.2 0.0-0.3 10^3/uL Basophils # (Auto) 0.0 0.0-0.1 10^3/uL Sodium Level 140 135-145 MMOL/L Potassium Level 3.8 3.6-5.0 MMOL/L Chloride Level 108 H 98-107 MMOL/L Carbon Dioxide Level 18 L 21-32 MMOL/L Anion Gap 14 5-14 MMOL/L Blood Urea Nitrogen 18 7-18 MG/DL Creatinine 0.96 0.60-1.30 MG/DL Estimat Glomerular Filtration Rate > 60 BUN/Creatinine Ratio 19 Glucose Level 113 H 70-105 MG/DL Calcium Level 9.2 8.5-10.1 MG/DL Corrected Calcium 9.3 8.5-10.1 MG/DL Total Bilirubin 0.3 0.1-1.0 MG/DL Aspartate Amino Transf (AST/SGOT) 24 5-34 U/L Alanine Aminotransferase (ALT/SGPT) 21 0-55 U/L Alkaline Phosphatase 84 40-136 U/L Total Protein 7.9 6.4-8.2 GM/DL Albumin 3.9 3.2-4.5 GM/DL Urine Color YELLOW Urine Clarity CLEAR Urine pH 6 5-9 Urine Specific Wickes 1.015 L 1.016-1.022 Urine Protein NEGATIVE NEGATIVE Urine Glucose (UA) NEGATIVE NEGATIVE Urine Ketones NEGATIVE NEGATIVE Urine Nitrite NEGATIVE NEGATIVE Urine Bilirubin NEGATIVE NEGATIVE Urine Urobilinogen NORMAL NORMAL MG/DL Urine Leukocyte Esterase 2+ H NEGATIVE Urine RBC (Auto) NEGATIVE NEGATIVE Urine RBC NONE /HPF Urine WBC 10-25 H /HPF Urine Squamous Epithelial Cells 0-2 /HPF Urine Crystals NONE /LPF Urine Bacteria TRACE /HPF Urine Casts NONE /LPF Urine Mucus NEGATIVE /LPF Urine Culture Indicated YES My Orders Orders - ELSA,YUMIKO K DO Accucheck Stat ONCE (12/17/18 23:46) Cbc With Automated Diff (12/17/18 23:46) Comprehensive Metabolic Panel (12/17/18 23:46) Ua Culture If Indicated (12/17/18 23:46) Saline Lock/Iv-Start (12/17/18 23:46) Urine Culture (12/18/18 00:02) Vital Signs/I&O 12/18/18 00:03 Temp 97.9 Pulse 97 Resp 16 B/P (MAP) 103/80 (88) Pulse Ox 97 Capillary Refill : Less Than 3 Seconds Blood Pressure Mean: 88 Point of Care Testing Finger Stick Blood Glucose: 98 Departure Impression Primary Impression: Urinary tract infection Additional Impressions: Multiple episodes of hypoglycemia S/P kidney transplant Disposition: HOME, SELF-CARE Condition: Stable Departure-Patient Inst. Referrals: LIYA ARVIZU MD (PCP/Family) Primary Care Physician Patient Instructions: Low Blood Sugar in People Without Diabetes, Low Carbohydrate Diet, Urinary Tract Infection, Adult (DC) Add. Discharge Instructions: INCREASE YOUR PROTEIN AND DECREASE YOUR CARBOHYDRATES DRINK PLENTY OF WATER TAKE YOUR MEDICATIONS PRESCRIBED, EXCEPT HOLD YOUR DAILY ANTIBIOTIC, WHILE YOU ARE TAKING MACROBID FOR UTI FOLLOW UP WITH YOUR DR THIS WEEK FOR FURTHER CARE KEEP YOUR APPOINTMENT WITH THE SPECIALIST THIS WEEK All discharge instructions reviewed with patient and/or family. Voiced understanding. Scripts Nitrofurantoin Monohyd/M-Cryst (Macrobid 100 mg Capsule) 100 Mg Capsule 100 MG PO BID, #20 CAP Prov: YUMIKO HUNTER DO 12/18/18 YUMIKO HUNTER DO Dec 18, 2018 01:10
[2018-12-18 01:20] VITALS: BP 123/62
== END 2018-12-18 01:20 | disposition home or self-care (01) ==
LOC: EDUNIT# 23:40 → ER 23:41
DX: N39.0 Urinary tract infection, site not specified (principal); E16.2 Hypoglycemia, unspecified; J44.9 Chronic obstructive pulmonary disease, unspecified; N18.6 End stage renal disease; K21.9 Gastro-esophageal reflux disease without esophagitis; E03.9 Hypothyroidism, unspecified; M41.9 Scoliosis, unspecified; F41.9 Anxiety disorder, unspecified; F32.9 Major depressive disorder, single episode, unspecified; Z80.7 Family history of other malignant neoplasms of lymphoid, hematopoietic and related tissues; Z87.19 Personal history of other diseases of the digestive system; Z99.2 Dependence on renal dialysis; Z88.2 Allergy status to sulfonamides; Z88.5 Allergy status to narcotic agent; Z91.040 Latex allergy status; Z88.7 Allergy status to serum and vaccine; Z88.8 Allergy status to other drugs, medicaments and biological substances; Z94.0 Kidney transplant status; Z98.890 Other specified postprocedural states; Z90.89 Acquired absence of other organs
CPT/HCPCS: 36415; 81000; 82962; 85025; 87088

== ENCOUNTER 2019-01-15 10:13 | Outpatient (RCR) | payer MEDICAID ==
[2019-01-15 11:36] LABS: FREE T4 (FREE THYROXINE) 1.01 NG/DL (0.70-1.48)
[2019-02-11] MEDS ORDERED: HYOS0.1283 SL (00:01)
[2019-02-11] MEDS ORDERED: DICY10CA12 PO (00:01)
== END 2019-04-15 | disposition home or self-care (01) ==
LOC: LAB 10:13
PROVIDERS: ATTEND Nurse Practitioner
DX: K31.84 Gastroparesis (principal); K29.00 Acute gastritis without bleeding; K29.80 Duodenitis without bleeding; R63.0 Anorexia; R11.0 Nausea; R14.0 Abdominal distension (gaseous)
CPT/HCPCS: 36415; 84439; 84443; 84480

== ENCOUNTER 2019-02-10 21:56 | Emergency (ER) | payer MEDICAID ==
[~2019-02-10] VITALS: Ht 170.2 cm; Wt 107.0 kg
[2019-02-10 22:44] LABS: BASOPHILS % (AUTO) 0 % (0-10); EOSINOPHILS # (AUTO) 0.1 10^3/uL (0.0-0.3); EOSINOPHILS % (AUTO) 1 % (0-10); HEMATOCRIT 44 % (35-52); HEMOGLOBIN 14.6 G/DL (11.5-16.0); LYMPHOCYTES # (AUTO) 4.7 X 10^3 (1.0-4.0); LYMPHOCYTES % (AUTO) 38 % (12-44); MEAN CORPUSCULAR HEMOGLOBIN 28 PG (25-34); MEAN CORPUSCULAR HGB CONC 33 G/DL (32-36); MEAN CORPUSCULAR VOLUME 85 FL (80-99); MEAN PLATELET VOLUME 9.1 FL (7.4-10.4); MONOCYTES # (AUTO) 0.8 X 10^3 (0.0-1.0); MONOCYTES % (AUTO) 7 % (0-12); NEUTROPHILS # (AUTO) 6.7 X 10^3 (1.8-7.8); NEUTROPHILS % (AUTO) 54 % (42-75); PLATELET COUNT 366 10^3/uL (130-400); RED CELL DISTRIBUTION WIDTH 13.3 % (10.0-14.5); WHITE BLOOD COUNT 12.3 10^3/uL (4.3-11.0)
[2019-02-10] MEDS ORDERED: HYOSCYAMINE 0.125 MG (LEVSIN) TAB SL ONE (22:45)
[2019-02-10 22:47] LABS: BILIRUBIN,URINE NEGATIVE (NEGATIVE); CLARITY,URINE CLEAR; COLOR,URINE YELLOW; GLUCOSE, URINE (UA) NEGATIVE (NEGATIVE); KETONES,URINE NEGATIVE (NEGATIVE); LEUKOCYTE ESTERASE ,URINE 2+ (NEGATIVE); NITRITE,URINE NEGATIVE (NEGATIVE); PH,URINE 5 (5-9); PROTEIN,URINE NEGATIVE (NEGATIVE); UROBILINOGEN,URINE NORMAL (NORMAL)
[2019-02-10 22:54] LABS: BACTERIA,URINE NEGATIVE /HPF; SQUAMOUS EPITHELIAL CELL,UR RARE /HPF
[2019-02-10 22:58] LABS: ALBUMIN 4.4 GM/DL (3.2-4.5); BILIRUBIN,TOTAL 0.3 MG/DL (0.1-1.0); CALCIUM 10.2 MG/DL (8.5-10.1); CREATININE SERUM 1.16 MG/DL (0.60-1.30); MAGNESIUM 2.2 MG/DL (1.8-2.4); POTASSIUM 4.2 MMOL/L (3.6-5.0); TOTAL PROTEIN 8.6 GM/DL (6.4-8.2)
[2019-02-10] MEDS ORDERED: RX-DICYCLOMINE 10 MG (BENTYL) CAP PPK#4 PO STA (23:57)
[2019-02-10] MEDS ORDERED: RX-HYOSCYAMINE 0.125 MG SL (LEVSIN) PPK#6 SL STA (23:57)
[2019-02-11] MEDS ORDERED: DICY10CA12 PO (00:01)
[2019-02-11] MEDS ORDERED: HYOS0.1283 SL (00:01)
--- NOTE | 2019-02-11 00:01 | ED Abdominal Pain ---
General Chief Complaint: Abdominal/GI Problems Stated Complaint: ABD PAIN Nursing Triage Note: PT AMB TO ROOM #10 W/O DIFFICULTY. A&OX4. C/O INTERMITTENT ABD BLOATING AND DISCOMFORT FOR APPROX 3-4 MONTHS. REPORTS SHE CAN NOT GET COMFORTABLE AND IS UNABLE TO SLEEP D/T DISCOMFORT. REPORTS INCREASE IN SEVERITY AFTER FOOD CONSUMPTION AND AT NIGHT. DENIES N/V/D OR FEVER. Sepsis Screen: No Definite Risk Allergies and Home Medications Allergies Coded Allergies: Sulfa (Sulfonamide Antibiotics) (Unverified Allergy, Unknown, 06/06/16) baclofen (Verified Allergy, Unknown, 05/01/18) codeine (Unverified Allergy, Unknown, 05/27/14) cyclobenzaprine (Unverified Allergy, Unknown, 02/10/15) influenza virus vaccine, specific (Unverified Allergy, Unknown, 05/27/14) iodine (Unverified Allergy, Unknown, 05/27/14) Home Medications Mycophenolate Mofetil 500 Mg Tablet, 750 MG PO BID, (Reported) TAKES 1 & 1/2 (500MG) TABLET Nitrofurantoin Monohyd/M-Cryst 100 Mg Capsule, 100 MG PO BID Prescribed by: YUMIKO HUNTER on 12/18/18 0110 Past Zhstcdi-Qqjdwi-Etobmy Hx Patient Social History Alcohol Use: Denies Use Recreational Drug Use: No Smoking Status: Never a Smoker 2nd Hand Smoke Exposure: No Recent Foreign Travel: No Contact w/Someone Who Travel: No Recent Infectious Disease Expo: No Recent Hopitalizations: No Immunizations Up To Date Tetanus Booster (TDap): Unknown PED Vaccines UTD: Yes Seasonal Allergies Seasonal Allergies: Yes Past Medical History Surgeries: Yes Arteriovenous Shunt, Dialysis, Kidney Transplant, Parathyroidectomy, Vascular Surgery Respiratory: Yes Asthma, Chronic Bronchitis Cardiac: Yes High Cholesterol Neurological: No 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 Disorders: No 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 Sexually Transmitted Disease: No HIV/AIDS: No Genitourinary: Yes (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") Renal Failure, UTI-Chronic Gastrointestinal: Yes Gastroesophageal Reflux, Hiatal Hernia, Ulcer Musculoskeletal: Yes (CHRONIC KNEE PAIN ) Degenerate Disk Disease, Scoliosis, Chronic Back Pain Endocrine: Yes Hypothyroidsim HEENT: No Cancer: No Psychosocial: Yes Anxiety, Depression Integumentary: No Blood Disorders: No Adverse Reaction/Blood Tranf: No Family Medical History Cancer aunt grandfather (Hodgkin's) Chest pain 19 FATHER Family history: Allergy 19 FATHER 19 MOTHER (hay fever) G8 BROTHER (hay fever) G8 SISTER (hay fever) Family history: Breast disease G8 SISTER aunt Family history: Diabetes mellitus 19 FATHER Family history: Gastrointestinal disease 19 FATHER (Hernia) G8 BROTHER (crohn's) Hearing loss 19 FATHER Thyroid disease 19 MOTHER No Family History of: Abdominal aortic aneurysm [place]'s disease Alcoholism Aphasia Cancer of colon Congenital heart disease Congestive heart failure Cystic fibrosis Dementia Dysphagia Family history: Alzheimer's disease Family history: Arthritis Family history: Asthma Family history: Cardiovascular disease Family history: Coronary thrombosis Family history: Glaucoma Family history: Hypertension Family history: Osteoporosis Family history: Thyroid disorder Headache Heart disease Hereditary disease History of - anemia History of - disorder History of - respiratory disease History of drug abuse Human immunodeficiency virus (HIV) seropositivity Hypercholesterolemia Infertile Kidney disease Malignant neoplasm of lung Myocardial infarction Parkinson's disease Prostate cancer Psychotic disorder Seizure disorder Stroke Tuberculosis Visual impairment Physical Exam Vital Signs Vital Signs - First Documented 02/10/19 22:19 Temp 97.6 Pulse 87 Resp 16 B/P (MAP) 115/87 (96) Pulse Ox 97 O2 Delivery Room Air Capillary Refill : Less Than 3 Seconds Height/Weight/BMI Height: 5'7.00" Weight: 236lbs. 0oz. 107.330038ip; 36.80 BMI Method:Stated Progress/Results/Core Measures Results/Orders Lab Results Laboratory Tests Test 02/10/19 22:30 02/10/19 22:40 Range/Units White Blood Count 12.3 H 4.3-11.0 10^3/uL Red Blood Count 5.23 4.35-5.85 10^6/uL Hemoglobin 14.6 11.5-16.0 G/DL Hematocrit 44 35-52 % Mean Corpuscular Volume 85 80-99 FL Mean Corpuscular Hemoglobin 28 25-34 PG Mean Corpuscular Hemoglobin Concent 33 32-36 G/DL Red Cell Distribution Width 13.3 10.0-14.5 % Platelet Count 366 130-400 10^3/uL Mean Platelet Volume 9.1 7.4-10.4 FL Neutrophils (%) (Auto) 54 42-75 % Lymphocytes (%) (Auto) 38 12-44 % Monocytes (%) (Auto) 7 0-12 % Eosinophils (%) (Auto) 1 0-10 % Basophils (%) (Auto) 0 0-10 % Neutrophils # (Auto) 6.7 1.8-7.8 X 10^3 Lymphocytes # (Auto) 4.7 H 1.0-4.0 X 10^3 Monocytes # (Auto) 0.8 0.0-1.0 X 10^3 Eosinophils # (Auto) 0.1 0.0-0.3 10^3/uL Basophils # (Auto) 0.0 0.0-0.1 10^3/uL Sodium Level 139 135-145 MMOL/L Potassium Level 4.2 3.6-5.0 MMOL/L Chloride Level 107 98-107 MMOL/L Carbon Dioxide Level 22 21-32 MMOL/L Anion Gap 10 5-14 MMOL/L Blood Urea Nitrogen 19 H 7-18 MG/DL Creatinine 1.16 0.60-1.30 MG/DL Estimat Glomerular Filtration Rate 51 BUN/Creatinine Ratio 16 Glucose Level 91 70-105 MG/DL Calcium Level 10.2 H 8.5-10.1 MG/DL Corrected Calcium 9.9 8.5-10.1 MG/DL Magnesium Level 2.2 1.8-2.4 MG/DL Total Bilirubin 0.3 0.1-1.0 MG/DL Aspartate Amino Transf (AST/SGOT) 20 5-34 U/L Alanine Aminotransferase (ALT/SGPT) 23 0-55 U/L Alkaline Phosphatase 92 40-136 U/L Total Protein 8.6 H 6.4-8.2 GM/DL Albumin 4.4 3.2-4.5 GM/DL Amylase Level 66 25-125 U/L Lipase 42 8-78 U/L Urine Color YELLOW Urine Clarity CLEAR Urine pH 5 5-9 Urine Specific [place] 1.015 L 1.016-1.022 Urine Protein NEGATIVE NEGATIVE Urine Glucose (UA) NEGATIVE NEGATIVE Urine Ketones NEGATIVE NEGATIVE Urine Nitrite NEGATIVE NEGATIVE Urine Bilirubin NEGATIVE NEGATIVE Urine Urobilinogen NORMAL NORMAL MG/DL Urine Leukocyte Esterase 2+ H NEGATIVE Urine RBC (Auto) NEGATIVE NEGATIVE Urine RBC NONE /HPF Urine WBC 2-5 /HPF Urine Squamous Epithelial Cells RARE /HPF Urine Crystals NONE /LPF Urine Bacteria NEGATIVE /HPF Urine Casts NONE /LPF Urine Mucus NEGATIVE /LPF Urine Culture Indicated NO Urine Test NEGATIVE NEGATIVE My Orders Orders - ELSA,YUMIKO K DO Hcg,Qualitative Urine (02/10/19 22:29) Ua Culture If Indicated (02/10/19 22:29) Ct Abdomen/Pelvis Wo (02/10/19 22:37) Acute Abd Series (02/10/19 22:37) Hyoscyamine Sl Tablet (Levsin Sl Tablet) (02/10/19 22:45) Amylase (02/10/19 22:37) Cbc With Automated Diff (02/10/19 22:37) Comprehensive Metabolic Panel (02/10/19 22:37) Lipase (02/10/19 22:37) Magnesium (02/10/19 22:37) Rx-Dicyclomine Capsule (Rx-Bentyl Capsul (02/10/19 23:57) Rx-Hyoscyamine Tab (Rx-Levsin Sl) (02/10/19 23:57) Medications Given in ED Current Medications Medications Dose Ordered Sig/Joan Route Start Time Stop Time Status Last Admin Dose Admin Hyoscyamine Sulfate 0.25 mg ONCE ONCE SL 02/10/19 22:45 02/10/19 22:46 DC 02/10/19 22:47 0.25 MG Vital Signs/I&O 02/10/19 22:19 Temp 97.6 Pulse 87 Resp 16 B/P (MAP) 115/87 (96) Pulse Ox 97 O2 Delivery Room Air Blood Pressure Mean: 96 Departure Impression Primary Impression: INTESTINAL GAS AND BLOATING Additional Impression: Abdominal pain Disposition: HOME, SELF-CARE Condition: Improved Departure-Patient Inst. Referrals: LIYA ARVIZU MD (PCP/Family) Primary Care Physician Patient Instructions: Gas and Bloating, Acute Abdomen (Belly Pain), Adult (DC) Add. Discharge Instructions: AVOID DAIRY PRODUCTS INCREASE YOUR MIRALAX DOSE TO 2 CAPFULS DAILY TAKE YOUR REGULAR MEDICATIONS PRESCRIBED YOU MAY CONTINUE OVER THE COUNTER GAS X FOLLOW UP WITH YOUR GI DR NEXT WEEK FOR FURTHER CARE All discharge instructions reviewed with patient and/or family. Voiced understanding. Scripts Dicyclomine HCl (Dicyclomine HCl) 10 Mg Capsule 10 MG PO Q6H for Abdominal Pain, #20 CAP Prov: YUMIKO HUNTER DO 02/11/19 Hyoscyamine Sulfate (Levsin-Sl) 0.125 Mg Tab.subl 1-2 TAB SL Q4H for Abdominal Pain, #15 TAB Prov: YUMIKO HUNTER DO 02/11/19 YUMIKO HUNTER DO Feb 11, 2019 00:01
[2019-02-11 00:09] VITALS: BP 119/88
--- NOTE | 2019-02-11 06:50 | Diagnostic Imaging Report ---
PROCEDURE: CT abdomen and pelvis without contrast. TECHNIQUE: Multiple contiguous axial images were obtained through the abdomen and pelvis without the use of intravenous contrast. Auto Exposure Controls were utilized during the CT exam to meet ALARA standards for radiation dose reduction. INDICATION: Abdominal pain. Comparison made with prior examination from 05/03/2015. FINDINGS: The heart size is normal. There is minimal scarring or atelectasis in the left lung base. The liver is normal in size without focal lesions. Gallbladder is unremarkable. There is no biliary ductal dilatation. Spleen is normal. Pancreas and adrenal glands are unremarkable. There is marked atrophy of the kidneys. Aorta is nonaneurysmal. Bowel gas pattern is nonspecific. There is a renal transplant in the right lower quadrant. Bladder is normal. The aorta is nonaneurysmal. Bowel gas pattern is nonspecific. There is no free air. There is no ascites. There are no focal inflammatory changes. There are degenerative changes in the spine. IMPRESSION: Unremarkable noncontrast CT abdomen and pelvis apart from bilateral atrophy in the [place] kidneys with a right lower quadrant transplant. Dictated by: Dictated on workstation # [id number]
--- NOTE | 2019-02-11 07:47 | Diagnostic Imaging Report ---
INDICATION: Abdominal pain FINDINGS: Heart size is normal. Lungs are clear. There is no pleural effusion or pneumothorax. Bowel gas pattern is nonspecific. There is no free air. There are no abnormal abdominal calcifications. IMPRESSION: No acute cardiopulmonary abnormality. Nonspecific bowel gas pattern Dictated by: Dictated on workstation # [id number]
== END 2019-02-11 00:10 | disposition home or self-care (01) ==
LOC: EDUNIT# 21:56 → ER 21:58
DX: R14.0 Abdominal distension (gaseous) (principal); R10.9 Unspecified abdominal pain; J44.9 Chronic obstructive pulmonary disease, unspecified; E78.00 Pure hypercholesterolemia, unspecified; K21.9 Gastro-esophageal reflux disease without esophagitis; E03.9 Hypothyroidism, unspecified; F41.9 Anxiety disorder, unspecified; F32.9 Major depressive disorder, single episode, unspecified; N18.6 End stage renal disease; Z87.440 Personal history of urinary (tract) infections; Z88.2 Allergy status to sulfonamides; Z87.19 Personal history of other diseases of the digestive system; Z80.7 Family history of other malignant neoplasms of lymphoid, hematopoietic and related tissues; Z88.5 Allergy status to narcotic agent; Z88.8 Allergy status to other drugs, medicaments and biological substances; Z91.040 Latex allergy status; Z88.7 Allergy status to serum and vaccine; Z94.0 Kidney transplant status; Z99.2 Dependence on renal dialysis; Z90.89 Acquired absence of other organs
CPT/HCPCS: 36415; 74022; 74176; 80053; 81000; 82150; 83690; 83735; 84703; 85025

== ENCOUNTER → 2019-04-04 | Outpatient (CLI) | payer MEDICAID ==
[~2019-04-04] MED LIST changes: +HYOS0.1283 SL
[2019-04-04 08:43] LABS: BASOPHILS % (AUTO) 0 % (0-10); EOSINOPHILS # (AUTO) 0.2 10^3/uL (0.0-0.3); EOSINOPHILS % (AUTO) 2 % (0-10); HEMATOCRIT 43 % (35-52); HEMOGLOBIN 14.1 G/DL (11.5-16.0); LYMPHOCYTES # (AUTO) 3.5 X 10^3 (1.0-4.0); LYMPHOCYTES % (AUTO) 43 % (12-44); MEAN CORPUSCULAR HEMOGLOBIN 28 PG (25-34); MEAN CORPUSCULAR HGB CONC 33 G/DL (32-36); MEAN CORPUSCULAR VOLUME 84 FL (80-99); MEAN PLATELET VOLUME 9.2 FL (7.4-10.4); MONOCYTES # (AUTO) 0.6 X 10^3 (0.0-1.0); MONOCYTES % (AUTO) 7 % (0-12); NEUTROPHILS # (AUTO) 3.9 X 10^3 (1.8-7.8); NEUTROPHILS % (AUTO) 48 % (42-75); PLATELET COUNT 319 10^3/uL (130-400); RED CELL DISTRIBUTION WIDTH 13.8 % (10.0-14.5); WHITE BLOOD COUNT 8.2 10^3/uL (4.3-11.0)
[2019-04-04 08:51] LABS: BILIRUBIN,URINE NEGATIVE (NEGATIVE); CLARITY,URINE CLEAR; COLOR,URINE YELLOW; GLUCOSE, URINE (UA) NEGATIVE (NEGATIVE); KETONES,URINE NEGATIVE (NEGATIVE); LEUKOCYTE ESTERASE ,URINE 2+ (NEGATIVE); NITRITE,URINE NEGATIVE (NEGATIVE); PH,URINE 6 (5-9); PROTEIN,URINE NEGATIVE (NEGATIVE); UROBILINOGEN,URINE NORMAL (NORMAL)
[2019-04-04 09:02] LABS: BUN/CREATININE RATIO 20; CALCIUM 9.5 MG/DL (8.5-10.1); CARBON DIOXIDE 21 MMOL/L (21-32); CHLORIDE 109 MMOL/L (98-107); CREATINE KINASE 46 U/L (29-168); CREATININE SERUM 0.91 MG/DL (0.60-1.30); GFR ESTIMATED > 60; GLUCOSE 95 MG/DL (70-105); MAGNESIUM 1.8 MG/DL (1.8-2.4); PHOSPHORUS 3.6 MG/DL (2.3-4.7); POTASSIUM 4.4 MMOL/L (3.6-5.0); SODIUM 139 MMOL/L (135-145)
[2019-04-04 09:03] LABS: BACTERIA,URINE TRACE /HPF
[2019-04-04 09:04] LABS: RENAL EPITHELIAL CELLS,URINE 0-2 /HPF; SQUAMOUS EPITHELIAL CELL,UR 0-2 /HPF
[2019-04-04 09:16] LABS: URINE CREATININE FOR RATIO 78 MG/DL (30-125); URINE PROTEIN FOR RATIO ONLY < 6 MG/DL (6-12)
== END ==
LOC: LAB 08:11
PROVIDERS: ATTEND Internal Medicine Nephrology
DX: N39.0 Urinary tract infection, site not specified (principal); D89.89 Other specified disorders involving the immune mechanism, not elsewhere classified; E16.2 Hypoglycemia, unspecified; E87.2 Acidosis; Z94.0 Kidney transplant status
CPT/HCPCS: 36415; 80069; 80197; 81000; 82550; 82570; 83735; 84156; 84550; 85025; 87088

== ENCOUNTER → 2019-05-18 | Outpatient (CLI) | payer MEDICAID ==
[2019-05-18 09:20] LABS: BASOPHILS % (AUTO) 0 % (0-10); EOSINOPHILS # (AUTO) 0.1 10^3/uL (0.0-0.3); EOSINOPHILS % (AUTO) 2 % (0-10); HEMATOCRIT 44 % (35-52); HEMOGLOBIN 14.1 G/DL (11.5-16.0); LYMPHOCYTES # (AUTO) 2.9 X 10^3 (1.0-4.0); LYMPHOCYTES % (AUTO) 47 % (12-44); MEAN CORPUSCULAR HEMOGLOBIN 28 PG (25-34); MEAN CORPUSCULAR HGB CONC 32 G/DL (32-36); MEAN CORPUSCULAR VOLUME 86 FL (80-99); MEAN PLATELET VOLUME 9.2 FL (7.4-10.4); MONOCYTES # (AUTO) 0.4 X 10^3 (0.0-1.0); MONOCYTES % (AUTO) 7 % (0-12); NEUTROPHILS # (AUTO) 2.7 X 10^3 (1.8-7.8); NEUTROPHILS % (AUTO) 44 % (42-75); PLATELET COUNT 282 10^3/uL (130-400); RED CELL DISTRIBUTION WIDTH 13.4 % (10.0-14.5); WHITE BLOOD COUNT 6.3 10^3/uL (4.3-11.0)
[2019-05-18 09:22] LABS: BILIRUBIN,URINE NEGATIVE (NEGATIVE); CLARITY,URINE CLEAR; COLOR,URINE YELLOW; GLUCOSE, URINE (UA) NEGATIVE (NEGATIVE); KETONES,URINE NEGATIVE (NEGATIVE); LEUKOCYTE ESTERASE ,URINE 1+ (NEGATIVE); NITRITE,URINE NEGATIVE (NEGATIVE); PH,URINE 6.5 (5-9); PROTEIN,URINE NEGATIVE (NEGATIVE); UROBILINOGEN,URINE NORMAL (NORMAL)
[2019-05-18 09:39] LABS: RBC,URINE RARE /HPF
[2019-05-18 09:40] LABS: BACTERIA,URINE NEGATIVE /HPF; SQUAMOUS EPITHELIAL CELL,UR 0-2 /HPF; WBC,URINE 0-2 /HPF
[2019-05-18 09:40] LABS: ALBUMIN 3.9 GM/DL (3.2-4.5); BUN/CREATININE RATIO 13; CALCIUM 9.3 MG/DL (8.5-10.1); CARBON DIOXIDE 21 MMOL/L (21-32); CHLORIDE 109 MMOL/L (98-107); CREATINE KINASE 54 U/L (29-168); CREATININE SERUM 0.92 MG/DL (0.60-1.30); GFR ESTIMATED > 60; GLUCOSE 93 MG/DL (70-105); MAGNESIUM 2.1 MG/DL (1.8-2.4); PHOSPHORUS 3.4 MG/DL (2.3-4.7); POTASSIUM 4.5 MMOL/L (3.6-5.0); SODIUM 139 MMOL/L (135-145); URIC ACID 4.6 MG/DL (2.6-7.2)
[2019-05-18 09:49] LABS: URINE CREATININE FOR RATIO 59 MG/DL (30-125); URINE PROTEIN FOR RATIO ONLY < 6 MG/DL (6-12)
== END ==
LOC: LAB 08:54
PROVIDERS: ATTEND Internal Medicine Nephrology
DX: N39.0 Urinary tract infection, site not specified (principal); D89.9 Disorder involving the immune mechanism, unspecified; E16.2 Hypoglycemia, unspecified; E87.2 Acidosis; Z94.0 Kidney transplant status
CPT/HCPCS: 36415; 80069; 80197; 81000; 82550; 82570; 83735; 84156; 84550; 85025

== ENCOUNTER → 2019-05-22 | Outpatient (CLI) | payer MEDICAID ==
--- NOTE | 2019-05-22 13:03 | Diagnostic Imaging Report ---
PROCEDURE: US venous upper extremity left. TECHNIQUE: Multiple realtime grayscale images were obtained of left upper extremity in various projections. Additional spectral analysis and color Doppler duplex images were also obtained. INDICATION: Left arm pain. 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 FINDINGS: Left internal jugular vein is patent. The left subclavian, axillary and brachial veins are patent. Basilic and cephalic veins as well as radial and ulnar veins are patent. No thrombus is seen. No fluid collection is identified. IMPRESSION: No evidence of left upper extremity DVT. Dictated by: Dictated on workstation # [id number]
== END ==
LOC: RAD 11:39
PROVIDERS: ATTEND Family Medicine
DX: R60.0 Localized edema (principal); Z87.39 Personal history of other diseases of the musculoskeletal system and connective tissue

== ENCOUNTER 2019-06-10 12:17 | Emergency (ER) | payer MEDICAID ==
[~2019-06-10] VITALS: Ht 170.2 cm; Wt 108.9 kg
[~2019-06-10 12:17] MED LIST changes: -OMEP20CA12 PO; +OMEP20CA13 PO; +RANI-613 PO; -RANI150T46 PO
[2019-06-10 12:57] LABS: BASOPHILS % (AUTO) 1 % (0-10); EOSINOPHILS # (AUTO) 0.1 10^3/uL (0.0-0.3); EOSINOPHILS % (AUTO) 1 % (0-10); HEMATOCRIT 43 % (35-52); LYMPHOCYTES # (AUTO) 3.2 X 10^3 (1.0-4.0); LYMPHOCYTES % (AUTO) 40 % (12-44); MEAN CORPUSCULAR HEMOGLOBIN 28 PG (25-34); MEAN CORPUSCULAR HGB CONC 33 G/DL (32-36); MEAN CORPUSCULAR VOLUME 86 FL (80-99); MEAN PLATELET VOLUME 9.4 FL (7.4-10.4); MONOCYTES # (AUTO) 0.8 X 10^3 (0.0-1.0); MONOCYTES % (AUTO) 10 % (0-12); NEUTROPHILS # (AUTO) 3.9 X 10^3 (1.8-7.8); NEUTROPHILS % (AUTO) 48 % (42-75); PLATELET COUNT 288 10^3/uL (130-400); WHITE BLOOD COUNT 8.1 10^3/uL (4.3-11.0)
[2019-06-10 13:01] LABS: BILIRUBIN,URINE NEGATIVE (NEGATIVE); CLARITY,URINE CLEAR; COLOR,URINE YELLOW; GLUCOSE, URINE (UA) NEGATIVE (NEGATIVE); KETONES,URINE NEGATIVE (NEGATIVE); LEUKOCYTE ESTERASE ,URINE 1+ (NEGATIVE); NITRITE,URINE NEGATIVE (NEGATIVE); PH,URINE 5 (5-9); PROTEIN,URINE NEGATIVE (NEGATIVE); UROBILINOGEN,URINE NORMAL (NORMAL)
[2019-06-10 13:07] LABS: INR 1.1 (0.8-1.4); PROTHROMBIN TIME PATIENT 14.2 SEC (12.2-14.7)
--- NOTE | 2019-06-10 13:15 | NUR ---
PT SITTING ON BED TALKING TO FRIEND. PT STATES THAT THERE IS NOTHING THAT SHE NEEDS AT THIS TIME. PT INSTRUCTED TO USE CALL LIGHT IF SHE NEEDS ANYTHING.
[2019-06-10 13:17] LABS: ALANINE AMINOTRANSFERASE 13 U/L (0-55); ALBUMIN 3.9 GM/DL (3.2-4.5); ALKALINE PHOSPHATASE 95 U/L (40-136); AMYLASE 81 U/L (25-125); BILIRUBIN,TOTAL 0.4 MG/DL (0.1-1.0); BUN/CREATININE RATIO 16; CALCIUM 9.3 MG/DL (8.5-10.1); CARBON DIOXIDE 18 MMOL/L (21-32); CHLORIDE 111 MMOL/L (98-107); CREATININE SERUM 0.86 MG/DL (0.60-1.30); GFR ESTIMATED > 60; GLUCOSE 74 MG/DL (70-105); LIPASE 105 U/L (8-78); MAGNESIUM 1.4 MG/DL (1.8-2.4); POTASSIUM 3.7 MMOL/L (3.6-5.0); SODIUM 139 MMOL/L (135-145); TOTAL PROTEIN 7.6 GM/DL (6.4-8.2)
[2019-06-10 13:18] LABS: AMPHETAMINE SCREEN, URINE NEGATIVE (NEGATIVE); BARBITURATE SCREEN URINE NEGATIVE (NEGATIVE); BENZODIAZEPINES SCREEN URINE NEGATIVE (NEGATIVE); CANNABINOID SCREEN, URINE NEGATIVE (NEGATIVE); COCAINE SCREEN URINE NEGATIVE (NEGATIVE); METHADONE STAT NEGATIVE (NEGATIVE); METHAMPHETAMINE SCREEN URINE S NEGATIVE (NEGATIVE); OPIATE SCREEN URINE NEGATIVE (NEGATIVE); OXYCODONE STAT NEGATIVE (NEGATIVE); PROPOXYPHENE STAT NEGATIVE (NEGATIVE); TRICYCLIC ANTIDEPRESSANTS SCRE NEGATIVE (NEGATIVE)
--- NOTE | 2019-06-10 13:19 | ED General ---
General Chief Complaint: Glucose Problems Stated Complaint: LOW BLOOD SUGAR 35 Nursing Triage Note: PT STATES SHE CHECKED HER GLUCOSE LEVEL AT 0927-BG 212, 1010-BG 35. PT FINGER STICK OF 96 UPON ARRIVAL. PT STATES SHE FELT LIGHT HEADED AND DIZZY PRIOR TO ARRIVAL. PT STATES SHE TOOK A "GLUCOSE TABLET" WHEN HER GLUCOMETER READ 35. Nursing Sepsis Screen: No Definite Risk Source of Information: Patient, Old Records History of Present Illness Date Seen by Provider: Jun 10, 2019 Time Seen by Provider: 12:28 Initial Comments PT ARRIVES VIA POV OT STATES "MY SUGAR AND THE LAST 2 DAYS I HAVEN'T BEEN FEELING LIKE MYSELF" STATES SHE ATE BREAKFAST ( FRUITY NASH CEREAL) AND CHECKED HER BLOOD SUGAR AFTER SHE ATE AND IT WAS 212 AT 0927 THIS AM. STATES AT 1010, "I STILL FELT SICK AND DIZZY AND IT STARTED TO GO DARK" SO CHECKED HER BLOOD SUGAR AT THAT TIME ADN WAS 35, SO TOOK A GLUCOSE TABLET STATES THOSE SYMPTOMS HAVE RESOLVED. HAS NOT RECHECKED HER BLOOD SUGAR SINCE THEN, AND HAS NOT EATEN ANYTHING ELSE THIS IS A FREQUENT/ CHRONIC PROBLEM AND SEES A "SUGAR DOCTOR" IN [place]--STATES THIS STARTED AFTER SHE HAD HIATAL HERNIA REPAIR IN 2017 PT STATES SHE IS "NOT DIABETIC" AND DOES NOT TAKE MEDICATION FOR DIABETES PT CHECKS HER BLOOD SUGAR MULTIPLE TIMES THROUGHOUT THE DAY ACCUCHECK IS 96 ON ARRIVAL HERE. PT DENIES FEVER, CHILLS, ETC. OR ANY SPECIFIC SYMPTOMS OF ILLNESS PT HAS HAD RENAL TRANSPLANT IN [address] AQUINO--SAW HER ON Tuesday06/08/19 FOR DRUG SCREEN--PT TAKES TRAMADOL FOR CHRONIC BACK PCP: DR. Kathleen ARVIZU SEES DIABETES NURSE IN [place]--SAW LAST MONTH AND HAS AN APPOINTMENT ON 06/21/19 Allergies and Home Medications Allergies Coded Allergies: Sulfa (Sulfonamide Antibiotics) (Unverified Allergy, Unknown, 06/06/16) baclofen (Verified Allergy, Unknown, 05/01/18) codeine (Unverified Allergy, Unknown, 05/27/14) cyclobenzaprine (Unverified Allergy, Unknown, 02/10/15) influenza virus vaccine, specific (Unverified Allergy, Unknown, 05/27/14) iodine (Unverified Allergy, Unknown, 05/27/14) Home Medications Dicyclomine HCl 10 Mg Capsule, 10 MG PO Q6H Prescribed by: YUMIKO HUNTER on 02/11/19 0001 Hyoscyamine Sulfate 0.125 Mg Tab.subl, 1-2 TAB SL Q4H Prescribed by: YUMIKO HUNTER on 02/11/192018 Mycophenolate Mofetil 500 Mg Tablet, 750 MG PO BID, (Reported) TAKES 1 & 1/2 (500MG) TABLET Nitrofurantoin Monohyd/M-Cryst 100 Mg Capsule, 100 MG PO BID Prescribed by: YUMIKO HUNTER on 12/18/18 0110 Nitrofurantoin Monohyd/M-Cryst 100 Mg Capsule, 100 MG PO BID Prescribed by: YUMIKO HUNTER on 06/10/19 1402 Patient Home Medication List Home Medication List Reviewed: Yes Review of Systems Review of Systems Constitutional: see HPI; No chills, No diaphoresis, No fever EENTM: no symptoms reported Respiratory: no symptoms reported; No cough, No short of breath Cardiovascular: no symptoms reported; No chest pain Gastrointestinal: no symptoms reported; No abdominal pain, No diarrhea, No nausea, No vomiting Genitourinary: no symptoms reported Musculoskeletal: no symptoms reported Skin: no symptoms reported Psychiatric/Neurological: No Symptoms Reported Hematologic/Lymphatic: No Symptoms Reported Immunological/Allergic: see HPI, transplant Past Vxmtcgs-Ovdehr-Ozhgtc Hx Patient Social History Alcohol Use: Rarely Uses Recreational Drug Use: No Smoking Status: Never a Smoker 2nd Hand Smoke Exposure: No Recent Foreign Travel: No Contact w/Someone Who Travel: No Recent Infectious Disease Expo: No Recent Hopitalizations: No Physical Abuse: No Sexual Abuse: No Mistreated: No Fear: No Immunizations Up To Date Tetanus Booster (TDap): Unknown PED Vaccines UTD: Yes Seasonal Allergies Seasonal Allergies: Yes Past Medical History Surgeries: Yes (EGD'S; HIATAL HERNIA REPAIRS 2015/2016; RENAL TRANSPLANT 2005; DIALYSIS A/V GRAFT LEFT ARM) Abdominal, Arteriovenous Shunt, Dialysis, Kidney Transplant, Parathyroidectomy, Vascular Surgery Respiratory: Yes Asthma, Chronic Bronchitis Cardiac: Yes High Cholesterol Neurological: No : No 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 Disorders: No 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 Sexually Transmitted Disease: No HIV/AIDS: No Genitourinary: Yes (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") Renal Failure, UTI-Chronic Gastrointestinal: Yes (HIATAL HERNIA REPAIR X 2; CHRONIC ABDOMINAL PAIN ) Gastroesophageal Reflux, Hiatal Hernia, Ulcer Musculoskeletal: Yes (CHRONIC KNEE PAIN ) Degenerate Disk Disease, Scoliosis, Chronic Back Pain Endocrine: Yes (LABILE BLOOD GLUCOSE) Parathyroid Disease, Hypothyroidsim HEENT: No Cancer: No Psychosocial: Yes Anxiety, Depression Integumentary: No Blood Disorders: No Adverse Reaction/Blood Tranf: No Family Medical History Cancer aunt grandfather (Hodgkin's) Chest pain 19 FATHER Family history: Allergy 19 FATHER 19 MOTHER (hay fever) G8 BROTHER (hay fever) G8 SISTER (hay fever) Family history: Breast disease G8 SISTER aunt Family history: Diabetes mellitus 19 FATHER Family history: Gastrointestinal disease 19 FATHER (Hernia) G8 BROTHER (crohn's) Hearing loss 19 FATHER Thyroid disease 19 MOTHER No Family History of: Abdominal aortic aneurysm [place]'s disease Alcoholism Aphasia Cancer of colon Congenital heart disease Congestive heart failure Cystic fibrosis Dementia Dysphagia Family history: Alzheimer's disease Family history: Arthritis Family history: Asthma Family history: Cardiovascular disease Family history: Coronary thrombosis Family history: Glaucoma Family history: Hypertension Family history: Osteoporosis Family history: Thyroid disorder Headache Heart disease Hereditary disease History of - anemia History of - disorder History of - respiratory disease History of drug abuse Human immunodeficiency virus (HIV) seropositivity Hypercholesterolemia Infertile Kidney disease Malignant neoplasm of lung Myocardial infarction Parkinson's disease Prostate cancer Psychotic disorder Seizure disorder Stroke Tuberculosis Visual impairment Physical Exam Vital Signs Vital Signs - First Documented 06/10/19 12:23 Temp 98.4 Pulse 83 Resp 16 B/P (MAP) 108/68 (81) Pulse Ox 92 O2 Delivery Room Air Capillary Refill : Less Than 3 Seconds Height, Weight, BMI Height: 5'7.00" Weight: 240lbs. 0oz. 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 Norm as Tested Skin: Normal Color, Warm/Dry, Tattoos/Piercings (TATTOOS) Progress/Results/Core Measures Suspected Sepsis Recent Fever Within 48 Hours: No Infection Criteria Present: None New/Unexplained Altered Menta: No Sepsis Screen: No Definite Risk SIRS Temperature:98.4 Pulse: 83 Respiratory Rate: 16 Laboratory Tests 06/10/19 12:48: White Blood Count 8.1 Blood Pressure 108 /68 Mean: 81 Laboratory Tests 06/10/19 12:48: Creatinine 0.86, INR Comment 1.1, Platelet Count 288, Total Bilirubin 0.4 Results/Orders Lab Results Laboratory Tests Test 06/10/19 12:22 06/10/19 12:48 06/10/19 12:51 Range/Units Glucometer 96 70-110 MG/DL White Blood Count 8.1 4.3-11.0 10^3/uL Red Blood Count 4.99 4.35-5.85 10^6/uL Hemoglobin 14.0 11.5-16.0 G/DL Hematocrit 43 35-52 % Mean Corpuscular Volume 86 80-99 FL Mean Corpuscular Hemoglobin 28 25-34 PG Mean Corpuscular Hemoglobin Concent 33 32-36 G/DL Red Cell Distribution Width 13.0 10.0-14.5 % Platelet Count 288 130-400 10^3/uL Mean Platelet Volume 9.4 7.4-10.4 FL Neutrophils (%) (Auto) 48 42-75 % Lymphocytes (%) (Auto) 40 12-44 % Monocytes (%) (Auto) 10 0-12 % Eosinophils (%) (Auto) 1 0-10 % Basophils (%) (Auto) 1 0-10 % Neutrophils # (Auto) 3.9 1.8-7.8 X 10^3 Lymphocytes # (Auto) 3.2 1.0-4.0 X 10^3 Monocytes # (Auto) 0.8 0.0-1.0 X 10^3 Eosinophils # (Auto) 0.1 0.0-0.3 10^3/uL Basophils # (Auto) 0.0 0.0-0.1 10^3/uL Prothrombin Time 14.2 12.2-14.7 SEC INR Comment 1.1 0.8-1.4 Activated Partial Thromboplast Time 33 24-35 SEC Sodium Level 139 135-145 MMOL/L Potassium Level 3.7 3.6-5.0 MMOL/L Chloride Level 111 H 98-107 MMOL/L Carbon Dioxide Level 18 L 21-32 MMOL/L Anion Gap 10 5-14 MMOL/L Blood Urea Nitrogen 14 7-18 MG/DL Creatinine 0.86 0.60-1.30 MG/DL Estimat Glomerular Filtration Rate > 60 BUN/Creatinine Ratio 16 Glucose Level 74 70-105 MG/DL Calcium Level 9.3 8.5-10.1 MG/DL Corrected Calcium 9.4 8.5-10.1 MG/DL Magnesium Level 1.4 L 1.8-2.4 MG/DL Total Bilirubin 0.4 0.1-1.0 MG/DL Aspartate Amino Transf (AST/SGOT) 11 5-34 U/L Alanine Aminotransferase (ALT/SGPT) 13 0-55 U/L Alkaline Phosphatase 95 40-136 U/L Total Protein 7.6 6.4-8.2 GM/DL Albumin 3.9 3.2-4.5 GM/DL Amylase Level 81 25-125 U/L Lipase 105 H 8-78 U/L TSH [place] Testing 1.31 0.35-4.94 UIU/ML Serum Test, Qualitative NEGATIVE NEGATIVE Serum Alcohol < 10 <10 MG/DL Urine Color YELLOW Urine Clarity CLEAR Urine pH 5 5-9 Urine Specific [place] 1.010 L 1.016-1.022 Urine Protein NEGATIVE NEGATIVE Urine Glucose (UA) NEGATIVE NEGATIVE Urine Ketones NEGATIVE NEGATIVE Urine Nitrite NEGATIVE NEGATIVE Urine Bilirubin NEGATIVE NEGATIVE Urine Urobilinogen NORMAL NORMAL MG/DL Urine Leukocyte Esterase 1+ H NEGATIVE Urine RBC (Auto) NEGATIVE NEGATIVE Urine RBC NONE /HPF Urine WBC RARE /HPF Urine Renal Epithelial Cells RARE /HPF Urine Crystals NONE /LPF Urine Bacteria FEW H /HPF Urine Casts NONE /LPF Urine Mucus NEGATIVE /LPF Urine Culture Indicated NO Urine Opiates Screen NEGATIVE NEGATIVE Urine Oxycodone Screen NEGATIVE NEGATIVE Urine Methadone Screen NEGATIVE NEGATIVE Urine Propoxyphene Screen NEGATIVE NEGATIVE Urine Barbiturates Screen NEGATIVE NEGATIVE Ur Tricyclic Antidepressants Screen NEGATIVE NEGATIVE Urine Phencyclidine Screen NEGATIVE NEGATIVE Urine Amphetamines Screen NEGATIVE NEGATIVE Urine Methamphetamines Screen NEGATIVE NEGATIVE Urine Benzodiazepines Screen NEGATIVE NEGATIVE Urine Cocaine Screen NEGATIVE NEGATIVE Urine Cannabinoids Screen NEGATIVE NEGATIVE My Orders Orders - YUMIKO HUNTER DO Accucheck Stat ONCE (06/10/19 12:28) Ed Iv/Invasive Line Start (06/10/19 12:37) Monitor-Rhythm Ecg Trace Only (06/10/19 12:37) Alcohol (06/10/19 12:37) Amylase (06/10/19 12:37) Cbc With Automated Diff (06/10/19 12:37) Comprehensive Metabolic Panel (06/10/19 12:37) Drug Screen Stat (Urine) (06/10/19 12:37) Hcg,Qualitative Serum (06/10/19 12:37) Lipase (06/10/19 12:37) Magnesium (06/10/19 12:37) Protime With Inr (06/10/19 12:37) Partial Thromboplastin Time (06/10/19 12:37) Thyroid Analyzer (06/10/19 12:37) Ua Culture If Indicated (06/10/19 12:37) Chest Pa/Lat (2 View) (06/10/19 12:37) Magnesium Oxide Tablet (Mag Ox Tablet) (06/10/19 14:00) Magnesium Oxide Tablet (Mag Ox Tablet) (06/10/19 14:02) Medications Given in ED Current Medications Medications Dose Ordered Sig/Joan Route Start Time Stop Time Status Last Admin Dose Admin Magnesium Oxide 800 mg ONCE ONCE PO 06/10/19 14:00 06/10/19 14:18 DC 06/10/19 14:11 800 MG Vital Signs/I&O 06/10/19 06/10/19 12:23 14:16 Temp 98.4 Pulse 83 77 Resp 16 16 B/P (MAP) 108/68 (81) 109/71 (84) Pulse Ox 92 100 O2 Delivery Room Air Room Air Capillary Refill : Less Than 3 Seconds Blood Pressure Mean: 81 Point of Care Testing Finger Stick Blood Glucose: 96 Blood Glucose Action Taken: PROVIDER NOTIFIED. Progress Note : Progress Note DISCUSSED NEED TO DECREASE CARBS/HIGH SUGAR FOODS AND INCREASE HER PROTEIN--EAT MEAT/EGGS/CHEESE, ETC, INSTEAD OF "FRUITY NASH". PT HAD NO SYMPTOMS DURING ER STAY Diagnostic Imaging Comments CXR--NO ACUTE PROCESS, PER RADIOLOGIST REPORT AT 1400 Reviewed: Reviewed by Me Departure Impression Primary Impression: Labile blood glucose Additional Impressions: UTI (urinary tract infection) Hypomagnesemia Disposition: 01 HOME, SELF-CARE Condition: Stable Departure-Patient Inst. Referrals: LIYA ARVIZU MD (PCP/Family) Primary Care Physician Patient Instructions: Blood Glucose Monitoring, Low Carbohydrate Diet, Urinary Tract Infection, Adult (DC) Add. Discharge Instructions: INCREASE YOUR PROTEIN AND DECREASE YOUR CARBOHYDRATES IF YOUR BLOOD SUGAR IS LOW, YOU NEED TO EAT OR DRINK FOLLOW UP WITH YOUR REGULAR DR THIS WEEK AND YOUR DIABETES NURSE SCHEDULED. All discharge instructions reviewed with patient and/or family. Voiced understanding. Scripts Nitrofurantoin Monohyd/M-Cryst (Macrobid 100 mg Capsule) 100 Mg Capsule 100 MG PO BID, #20 CAP Prov: YUMIKO HUNTER DO 06/10/19 YUMIKO HUNTER DO Jun 10, 2019 13:19
--- NOTE | 2019-06-10 13:27 | Diagnostic Imaging Report ---
INDICATION: Fatigue. Hyperglycemia. COMPARISON: 02/10/2019. TECHNIQUE: PA and lateral views. FINDINGS: The lungs are well-aerated and clear. The heart is not enlarged. Pulmonary vasculature is normal. No pneumothorax or pleural effusion. No hilar adenopathy. IMPRESSION: Normal PA and lateral chest. Dictated by: Dictated on workstation # [id number]
[2019-06-10 13:37] LABS: TSH (THYROID ANALYZER) 1.31 UIU/ML (0.35-4.94)
[2019-06-10 13:53] LABS: BACTERIA,URINE FEW /HPF; RENAL EPITHELIAL CELLS,URINE RARE /HPF; WBC,URINE RARE /HPF
[2019-06-10] MEDS ORDERED: MAGNESIUM OXIDE (MAG-OX)400 MG TAB PO ONE (14:00)
--- NOTE | 2019-06-10 14:00 | NUR ---
PT LAYING IN BED. STATES SHE NEEDS NOTHING AT THIS TIME. PT INSTRUCTED TO USE CALL LIGHT IF SHE NEEDS ANYTHING.
[2019-06-10] MEDS ORDERED: NITR-65 PO (14:02)
[2019-06-10] MEDS ORDERED: MAGNESIUM OXIDE (MAG-OX)400 MG TAB ONE (14:02)
[2019-06-10 14:16] VITALS: BP 109/71
== END 2019-06-10 14:17 | disposition home or self-care (01) ==
LOC: EDUNIT# 12:17 → ER 12:18
DX: R73.09 Other abnormal glucose (principal); J45.909 Unspecified asthma, uncomplicated; E78.00 Pure hypercholesterolemia, unspecified; K21.9 Gastro-esophageal reflux disease without esophagitis; E03.9 Hypothyroidism, unspecified; F41.9 Anxiety disorder, unspecified; F32.9 Major depressive disorder, single episode, unspecified; Z87.440 Personal history of urinary (tract) infections; Z87.448 Personal history of other diseases of urinary system; Z99.2 Dependence on renal dialysis; Z94.0 Kidney transplant status; Z88.2 Allergy status to sulfonamides; Z88.5 Allergy status to narcotic agent; Z91.041 Radiographic dye allergy status; Z88.8 Allergy status to other drugs, medicaments and biological substances; Z88.7 Allergy status to serum and vaccine; Z80.7 Family history of other malignant neoplasms of lymphoid, hematopoietic and related tissues
CPT/HCPCS: 36415; 71046; 80053; 80306; 80320; 81000; 82150; 82962; 83690; 83735; 84443; 84703; 85025; 85610; 85730; 93041

== ENCOUNTER → 2019-06-28 | Outpatient (CLI) | payer MEDICAID ==
--- NOTE | 2019-06-28 16:29 | Diagnostic Imaging Report ---
PROCEDURE: CT chest and abdomen without contrast. TECHNIQUE: Axial images were obtained from the thoracic inlet through the iliac crest without the administration of intravenous contrast. Auto Exposure Controls were utilized during the CT exam to meet ALARA standards for radiation dose reduction. INDICATION: Bilateral side pain for one week. Chest pain. FINDINGS: CT chest: There is discoid atelectasis at the left lung base. No mass or infiltrate is seen. There is no effusion or pneumothorax. There is no mediastinal mass or adenopathy. There is a hiatal hernia. There is no acute bony abnormality. CT abdomen: The liver, gallbladder and bile ducts are normal. The spleen, pancreas and adrenals are normal. Both kidneys are markedly atrophic. There is a pelvic kidney partially visualized in the right lower quadrant. No acute bowel abnormality is seen. There is no free intraperitoneal air or fluid. IMPRESSION: CT of the chest shows discoid atelectasis at the left lung base. There is a hiatal hernia. CT of the abdomen shows markedly atrophic kidneys with no acute abnormality seen. Dictated by: Dictated on workstation # [id number]
== END ==
LOC: RAD 15:35
PROVIDERS: ATTEND Family Medicine
DX: K44.9 Diaphragmatic hernia without obstruction or gangrene (principal); J98.11 Atelectasis; Z98.890 Other specified postprocedural states
CPT/HCPCS: 71250; 74150

== ENCOUNTER 2019-07-23 11:17 | Emergency (ER) | payer MEDICAID ==
[~2019-07-23] VITALS: Ht 170.1 cm; Wt 109.1 kg
[2019-07-23 11:51] LABS: BASOPHILS % (AUTO) 0 % (0-10); EOSINOPHILS # (AUTO) 0.1 10^3/uL (0.0-0.3); EOSINOPHILS % (AUTO) 2 % (0-10); HEMATOCRIT 44 % (35-52); HEMOGLOBIN 13.9 G/DL (11.5-16.0); LYMPHOCYTES # (AUTO) 2.5 X 10^3 (1.0-4.0); LYMPHOCYTES % (AUTO) 37 % (12-44); MEAN CORPUSCULAR HEMOGLOBIN 28 PG (25-34); MEAN CORPUSCULAR HGB CONC 32 G/DL (32-36); MEAN CORPUSCULAR VOLUME 87 FL (80-99); MEAN PLATELET VOLUME 9.4 FL (7.4-10.4); MONOCYTES # (AUTO) 0.6 X 10^3 (0.0-1.0); MONOCYTES % (AUTO) 9 % (0-12); NEUTROPHILS # (AUTO) 3.5 X 10^3 (1.8-7.8); NEUTROPHILS % (AUTO) 52 % (42-75); PLATELET COUNT 327 10^3/uL (130-400); RED CELL DISTRIBUTION WIDTH 13.5 % (10.0-14.5); WHITE BLOOD COUNT 6.7 10^3/uL (4.3-11.0)
--- NOTE | 2019-07-23 12:01 | Diagnostic Imaging Report ---
EXAMINATION: Frontal chest at 1134 hours. COMPARISON: 06/10/2019. INDICATION: Chest pain. FINDINGS: The heart and mediastinal silhouette are normal in appearance. The lungs appear clear. There is no pneumothorax or pleural fluid. IMPRESSION: No acute process in the chest. Dictated by: Dictated on workstation # [id number]
[2019-07-23 12:11] LABS: FIBRIN DEGRADATION PRODUCTS 0.35 UG/ML (0.00-0.49); INR 0.9 (0.8-1.4); PROTHROMBIN TIME PATIENT 12.7 SEC (12.2-14.7)
[2019-07-23 12:15] LABS: ALANINE AMINOTRANSFERASE 21 U/L (0-55); ALKALINE PHOSPHATASE 89 U/L (40-136); BILIRUBIN,TOTAL 0.5 MG/DL (0.1-1.0); BUN/CREATININE RATIO 22; CALCIUM 9.7 MG/DL (8.5-10.1); CARBON DIOXIDE 24 MMOL/L (21-32); CHLORIDE 108 MMOL/L (98-107); CREATININE SERUM 0.92 MG/DL (0.60-1.30); GFR ESTIMATED > 60; GLUCOSE 101 MG/DL (70-105); LIPASE 40 U/L (8-78); MAGNESIUM 1.9 MG/DL (1.6-2.4); POTASSIUM 4.7 MMOL/L (3.6-5.0); SODIUM 140 MMOL/L (135-145); TOTAL PROTEIN 7.6 GM/DL (6.4-8.2)
--- NOTE | 2019-07-23 12:30 | ED Chest Pain ---
General Chief Complaint: Chest Pain Stated Complaint: CHEST PAIN Nursing Triage Note: PT AMB TO RM 9 WITH COMPLAINT OF CP, STATES STARTED TWO DAYS AGO. Nursing Sepsis Screen: No Definite Risk Source: patient Exam Limitations: no limitations History of Present Illness Date Seen by Provider: Jul 23, 2019 Time Seen by Provider: 11:29 Initial Comments Chest pain shortness of breath for 2 days history of asthma. Immunosuppressed following kidney transplant 2005. 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 PRODUCTS: No NTG SL DESIGN ENGINEER PRODUCTS: No Associated Symptoms: shortness of breath Allergies and Home Medications Allergies Coded Allergies: Sulfa (Sulfonamide Antibiotics) (Unverified Allergy, Unknown, 06/06/16) baclofen (Verified Allergy, Unknown, 05/01/18) codeine (Unverified Allergy, Unknown, 05/27/14) cyclobenzaprine (Unverified Allergy, Unknown, 02/10/15) influenza virus vaccine, specific (Unverified Allergy, Unknown, 05/27/14) iodine (Unverified Allergy, Unknown, 05/27/14) Home Medications Dicyclomine HCl 10 Mg Capsule, 10 MG PO Q6H Prescribed by: YUMIKO HUNTER on 02/11/19 0001 Hyoscyamine Sulfate 0.125 Mg Tab.subl, 1-2 TAB SL Q4H Prescribed by: YUMIKO HUNTER on 02/11/19 0001 Mycophenolate Mofetil 500 Mg Tablet, 750 MG PO BID, (Reported) TAKES 1 & 1/2 (500MG) TABLET Nitrofurantoin Monohyd/M-Cryst 100 Mg Capsule, 100 MG PO BID Prescribed by: YUMIKO HUNTER on 12/18/18 0110 Nitrofurantoin Monohyd/M-Cryst 100 Mg Capsule, 100 MG PO BID Prescribed by: YUMIKO HUNTER on 06/10/19 1402 Patient Home Medication List Home Medication List Reviewed: Yes Review of Systems Review of Systems Constitutional: see HPI EENTM: No Symptoms Reported Respiratory: See HPI, Cough, Shortness of Air Cardiovascular: See HPI, Chest Pain Gastrointestinal: No Symptoms Reported Genitourinary: No Symptoms Reported Musculoskeletal: no symptoms reported Skin: no symptoms reported Psychiatric/Neurological: No Symptoms Reported Endocrine: No Symptoms Reported Past Ciofydm-Pxbzwy-Hhhoip Hx Patient Social History Alcohol Use: Denies Use Recreational Drug Use: No Smoking Status: Never a Smoker 2nd Hand Smoke Exposure: No Recent Foreign Travel: No Contact w/Someone Who Travel: No Recent Infectious Disease Expo: No Recent Hopitalizations: No Physical Abuse: No Sexual Abuse: No Mistreated: No Fear: No Immunizations Up To Date Tetanus Booster (TDap): Unknown PED Vaccines UTD: Yes Seasonal Allergies Seasonal Allergies: Yes Past Medical History Surgeries: Yes Abdominal, Arteriovenous Shunt, Dialysis, Kidney Transplant, Parathyroidectomy, Vascular Surgery Respiratory: Yes Asthma, Chronic Bronchitis Cardiac: Yes High Cholesterol Neurological: No 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 Disorders: No 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 Disorders: 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 Sexually Transmitted Disease: No HIV/AIDS: No Genitourinary: Yes (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") Renal Failure, UTI-Chronic Gastrointestinal: Yes (HIATAL HERNIA REPAIR X 2; CHRONIC ABDOMINAL PAIN ) Gastroesophageal Reflux, Hiatal Hernia, Ulcer Musculoskeletal: Yes (CHRONIC KNEE PAIN ) Degenerate Disk Disease, Scoliosis, Chronic Back Pain Endocrine: Yes (LABILE BLOOD GLUCOSE) Parathyroid Disease, Hypothyroidsim HEENT: No Cancer: No Psychosocial: Yes Anxiety, Depression Integumentary: No Blood Disorders: No Adverse Reaction/Blood Tranf: No Family Medical History Cancer aunt grandfather (Hodgkin's) Chest pain 19 FATHER Family history: Allergy 19 FATHER 19 MOTHER (hay fever) G8 BROTHER (hay fever) G8 SISTER (hay fever) Family history: Breast disease G8 SISTER aunt Family history: Diabetes mellitus 19 FATHER Family history: Gastrointestinal disease 19 FATHER (Hernia) G8 BROTHER (crohn's) Hearing loss 19 FATHER Thyroid disease 19 MOTHER No Family History of: Abdominal aortic aneurysm [place]'s disease Alcoholism Aphasia Cancer of colon Congenital heart disease Congestive heart failure Cystic fibrosis Dementia Dysphagia Family history: Alzheimer's disease Family history: Arthritis Family history: Asthma Family history: Cardiovascular disease Family history: Coronary thrombosis Family history: Glaucoma Family history: Hypertension Family history: Osteoporosis Family history: Thyroid disorder Headache Heart disease Hereditary disease History of - anemia History of - disorder History of - respiratory disease History of drug abuse Human immunodeficiency virus (HIV) seropositivity Hypercholesterolemia Infertile Kidney disease Malignant neoplasm of lung Myocardial infarction Parkinson's disease Prostate cancer Psychotic disorder Seizure disorder Stroke Tuberculosis Visual impairment Physical Exam Vital Signs Vital Signs - First Documented 07/23/19 11:18 Temp 37.4 Pulse 81 Resp 19 B/P (MAP) 107/81 (90) Pulse Ox 95 O2 Delivery Room Air Capillary Refill : Less Than 3 Seconds Height, Weight, BMI Height: 5'7.00" Weight: 240lbs. 0oz. [id number]; 37.00 BMI Method:Stated General Appearance: No Apparent Distress, WD/WN HEENT: PERRL/EOMI, TMs Normal Neck: Full Range of Motion, Normal Inspection Respiratory: No Accessory Muscle Use, No Respiratory Distress, Crackles (right base) Cardiovascular: Regular Rate, Rhythm, Normal Peripheral Pulses Gastrointestinal: Normal Bowel Sounds, Non Tender, Soft Extremity: Normal Capillary Refill, Normal Inspection Neurologic/Psychiatric: Alert, Oriented x3 Skin: Normal Color, Warm/Dry Progress/Results/Core Measures Results/Orders Lab Results Laboratory Tests Test 07/23/19 11:33 Range/Units White Blood Count 6.7 4.3-11.0 10^3/uL Red Blood Count 5.05 4.35-5.85 10^6/uL Hemoglobin 13.9 11.5-16.0 G/DL Hematocrit 44 35-52 % Mean Corpuscular Volume 87 80-99 FL Mean Corpuscular Hemoglobin 28 25-34 PG Mean Corpuscular Hemoglobin Concent 32 32-36 G/DL Red Cell Distribution Width 13.5 10.0-14.5 % Platelet Count 327 130-400 10^3/uL Mean Platelet Volume 9.4 7.4-10.4 FL Neutrophils (%) (Auto) 52 42-75 % Lymphocytes (%) (Auto) 37 12-44 % Monocytes (%) (Auto) 9 0-12 % Eosinophils (%) (Auto) 2 0-10 % Basophils (%) (Auto) 0 0-10 % Neutrophils # (Auto) 3.5 1.8-7.8 X 10^3 Lymphocytes # (Auto) 2.5 1.0-4.0 X 10^3 Monocytes # (Auto) 0.6 0.0-1.0 X 10^3 Eosinophils # (Auto) 0.1 0.0-0.3 10^3/uL Basophils # (Auto) 0.0 0.0-0.1 10^3/uL Prothrombin Time 12.7 12.2-14.7 SEC INR Comment 0.9 0.8-1.4 Activated Partial Thromboplast Time 32 24-35 SEC D-Dimer 0.35 0.00-0.49 UG/ML Sodium Level 140 135-145 MMOL/L Potassium Level 4.7 3.6-5.0 MMOL/L Chloride Level 108 H 98-107 MMOL/L Carbon Dioxide Level 24 21-32 MMOL/L Anion Gap 8 5-14 MMOL/L Blood Urea Nitrogen 20 H 7-18 MG/DL Creatinine 0.92 0.60-1.30 MG/DL Estimat Glomerular Filtration Rate > 60 BUN/Creatinine Ratio 22 Glucose Level 101 70-105 MG/DL Calcium Level 9.7 8.5-10.1 MG/DL Corrected Calcium 9.7 8.5-10.1 MG/DL Magnesium Level 1.9 1.6-2.4 MG/DL Total Bilirubin 0.5 0.1-1.0 MG/DL Aspartate Amino Transf (AST/SGOT) 17 5-34 U/L Alanine Aminotransferase (ALT/SGPT) 21 0-55 U/L Alkaline Phosphatase 89 40-136 U/L Myoglobin 43.7 10.0-92.0 NG/ML Troponin I < 0.028 <0.028 NG/ML B-Type Natriuretic Peptide 25.1 <100.0 PG/ML Total Protein 7.6 6.4-8.2 GM/DL Albumin 4.0 3.2-4.5 GM/DL Lipase 40 8-78 U/L Serum Test, Qualitative NEGATIVE NEGATIVE My Orders Orders - AARON PERKINS APRN Cbc With Automated Diff (07/23/19 11:25) Magnesium (07/23/19 11:25) Chest 1 View, Ap/Pa Only (07/23/19 11:25) Ekg Tracing (07/23/19 11:25) Cardiac Profile 1 (07/23/19 11:25) Comprehensive Metabolic Panel (07/23/19 11:25) Myoglobin Serum (07/23/19 11:25) Protime With Inr (07/23/19 11:25) Partial Thromboplastin Time (07/23/19 11:25) O2 (07/23/19 11:25) Monitor-Rhythm Ecg Trace Only (07/23/19 11:25) Lipid Panel (07/24/19 06:00) Ed Iv/Invasive Line Start (07/23/19 11:25) Lipase (07/23/19 11:25) BNP (07/23/19 11:25) Hcg,Qualitative Serum (07/23/19 11:25) Fibrin Degradation Products (07/23/19 11:33) Chest Pa/Lat (2 View) (07/23/19 12:19) Vital Signs/I&O 07/23/19 11:18 Temp 37.4 Pulse 81 Resp 19 B/P (MAP) 107/81 (90) Pulse Ox 95 O2 Delivery Room Air Blood Pressure Mean: 90 Departure Impression Primary Impression: Chest pain Qualified Codes: R07.9 - Chest pain, unspecified Disposition: HOME, SELF-CARE Condition: Stable (but) Departure-Patient Inst. Decision time for Depature: 13:26 Referrals: LIYA ARVIZU MD (PCP/Family) Primary Care Physician Patient Instructions: Chest Pain (DC) Add. Discharge Instructions: 1. Medication as directed 2. Return to ER for any concerns 3. Follow-up with your doctor next week for antibiotics as directed All discharge instructions reviewed with patient and/or family. Voiced understanding. Scripts Doxycycline Hyclate (Doxycycline Hyclate) 100 Mg Tablet 100 MG PO BID, #14 TAB Prov: AARON PEKRINS APRN 07/23/19 AARON PERKINS APRN Jul 23, 2019 12:30
--- NOTE | 2019-07-23 12:58 | Diagnostic Imaging Report ---
INDICATION: Chest pain. TIME OF EXAMINATION: 12:48 PM. COMPARISON: Correlation is made with the prior chest from earlier this same day. FINDINGS: The heart size is stable. The lungs remain clear apart from minimal atelectasis in the left base. The pulmonary vascularity is normal. There is no effusion or pneumothorax detected. IMPRESSION: No acute cardiopulmonary process is detected. Dictated by: Dictated on workstation # [id number]
[2019-07-23] MEDS ORDERED: DOXY100T2 PO ×2 (13:28→14:33)
[2019-07-23] MEDS ORDERED: KETOROLAC 30 MG/ML VIAL IVP ONE (13:45)
[2019-07-23 14:35] VITALS: BP 107/82
== END 2019-07-23 14:35 | disposition home or self-care (01) ==
LOC: EDUNIT# 11:17 → ER 11:18
DX: R07.9 Chest pain, unspecified (principal); J44.9 Chronic obstructive pulmonary disease, unspecified; E78.00 Pure hypercholesterolemia, unspecified; K21.9 Gastro-esophageal reflux disease without esophagitis; E03.9 Hypothyroidism, unspecified; F41.9 Anxiety disorder, unspecified; F32.9 Major depressive disorder, single episode, unspecified; Z98.890 Other specified postprocedural states; Z87.440 Personal history of urinary (tract) infections; Z88.2 Allergy status to sulfonamides; Z94.0 Kidney transplant status; Z88.5 Allergy status to narcotic agent; Z88.7 Allergy status to serum and vaccine; Z88.8 Allergy status to other drugs, medicaments and biological substances; Z99.2 Dependence on renal dialysis; Z80.7 Family history of other malignant neoplasms of lymphoid, hematopoietic and related tissues
CPT/HCPCS: 36415; 71045; 71046; 80053; 83690; 83735; 83874; 83880; 84484; 84703; 85025; 85379; 85610; 85730; 93005; 93041; 96374

== ENCOUNTER 2019-07-29 13:08 | Emergency (ER) | payer MEDICAID ==
[~2019-07-29] VITALS: Ht 170 cm; Wt 109.0 kg
[~2019-07-29 13:08] MED LIST changes: +DOXY100T2 PO
[2019-07-29] MEDS ORDERED: FAMOTIDINE 20MG/2ML IV (PEPCID) IV STA (13:15)
[2019-07-29] MEDS ORDERED: ANTACID SUSP 30 ML UDC (MYLANTA) PO ONE (13:15)
[2019-07-29] MEDS ORDERED: LIDOCAINE 2% VISCOUS 15 ML UDC PO ONE (13:15)
[2019-07-29 13:26] LABS: BASOPHILS % (AUTO) 1 % (0-10); EOSINOPHILS # (AUTO) 0.1 10^3/uL (0.0-0.3); EOSINOPHILS % (AUTO) 1 % (0-10); HEMATOCRIT 44 % (35-52); HEMOGLOBIN 14.5 G/DL (11.5-16.0); LYMPHOCYTES # (AUTO) 2.7 X 10^3 (1.0-4.0); LYMPHOCYTES % (AUTO) 32 % (12-44); MEAN CORPUSCULAR HEMOGLOBIN 28 PG (25-34); MEAN CORPUSCULAR HGB CONC 33 G/DL (32-36); MEAN CORPUSCULAR VOLUME 86 FL (80-99); MEAN PLATELET VOLUME 9.2 FL (7.4-10.4); MONOCYTES # (AUTO) 0.9 X 10^3 (0.0-1.0); MONOCYTES % (AUTO) 11 % (0-12); NEUTROPHILS # (AUTO) 4.8 X 10^3 (1.8-7.8); NEUTROPHILS % (AUTO) 56 % (42-75); PLATELET COUNT 318 10^3/uL (130-400); RED CELL DISTRIBUTION WIDTH 13.5 % (10.0-14.5); WHITE BLOOD COUNT 8.6 10^3/uL (4.3-11.0)
[2019-07-29 13:38] LABS: PROTHROMBIN TIME PATIENT 13.5 SEC (12.2-14.7)
[2019-07-29] MEDS ORDERED: ONDA8TAB12 PO (13:39)
[2019-07-29] MEDS ORDERED: ESCI10TA55 PO (13:41)
[2019-07-29] MEDS ORDERED: BUSP10TA95 PO (13:41)
[2019-07-29] MEDS ORDERED: CEFA250C PO (13:41)
[2019-07-29 13:48] LABS: ALANINE AMINOTRANSFERASE 18 U/L (0-55); ALKALINE PHOSPHATASE 105 U/L (40-136); BILIRUBIN,TOTAL 0.5 MG/DL (0.1-1.0); BUN/CREATININE RATIO 15; CALCIUM 9.2 MG/DL (8.5-10.1); CARBON DIOXIDE 17 MMOL/L (21-32); CHLORIDE 112 MMOL/L (98-107); CREATININE SERUM 0.91 MG/DL (0.60-1.30); GFR ESTIMATED > 60; GLUCOSE 71 MG/DL (70-105); LIPASE 46 U/L (8-78); MAGNESIUM 1.4 MG/DL (1.6-2.4); POTASSIUM 3.8 MMOL/L (3.6-5.0); SODIUM 139 MMOL/L (135-145); TOTAL PROTEIN 7.9 GM/DL (6.4-8.2)
--- NOTE | 2019-07-29 14:12 | Diagnostic Imaging Report ---
INDICATION: Chest pain, shortness of air COMPARISON: 09/22/2019 TECHNIQUE: Two radiographs of the chest dated 07/29/2019 FINDINGS: The cardiac silhouette is within normal limits in size. No significant pulmonary vascular congestion. Minimal left basilar interstitial opacities. Otherwise, the lungs appear clear. No pleural effusion. No pneumothorax. Sigel right curvature of the spine. Scattered osseous degenerative changes without acute osseous abnormality. IMPRESSION: Very minimal left basilar atelectasis and/or pneumonitis. Dictated by: Dictated on workstation # [id number]
[2019-07-29] MEDS ORDERED: MAGNESIUM 1 GM/100 ML IVPB 100 ML IV ONE (14:15)
[2019-07-29] MEDS ORDERED: fentaNYL INJECTION 100 MCG/2 ML AMP IVP ONE (14:15)
[2019-07-29] MEDS ORDERED: ASPIRIN 81 MG CHEW (CHILDREN'S ASA) PO ONE (14:30)
--- NOTE | 2019-07-29 14:35 | ED Chest Pain ---
General Chief Complaint: Chest Pain Stated Complaint: CHEST PAIN Nursing Triage Note: PATIENT PRESENTED TO ER VIA [facility] WITH COMPLAINT OF CHEST PAIN X 2 WEEKS. PATIENT STATES SHE WAS SEEN HERE IN ER LAST WEEK FOR CHEST PAIN AND WAS GIVEN ANTIBIOTICS DUE TO HAVING CRACKLING IN HER LUNGS. PATIENT STATES TODAY THE CHEST PAIN BECAME WORSE WITH TAKING A DEEP BREATH AND WITH LYING FLAT. PATIENT IS RATING HER PAIN AT A 10 OUT OF 10. SHE DECRIBES THE PAIN BURNING SENSATION MID STERNUM. Nursing Sepsis Screen: No Definite Risk Source: patient Exam Limitations: no limitations History of Present Illness Date Seen by Provider: Jul 29, 2019 Time Seen by Provider: 13:03 Initial Comments This 43-year-old woman presents to the emergency room with complaints of chest pain that has mixed characteristics. It seems to be worse when she is lying down and when taking a deep breath. She was seen in the emergency room on July 23. She had some crackles and was suspected of having perhaps an early pneumonia. She was started on doxycycline. She has continued to have some chest pain since then. She also describes a history of hiatal hernia and possibly acid reflux. She reportedly had an EGD performed by Dr. Doran within the past couple of weeks. She is unaware of any significant problems discovered on the EGD. Her primary care provider is Dr. Alvarado. She is immunocompromised as a renal transplant patient. Allergies and Home Medications Allergies Coded Allergies: Sulfa (Sulfonamide Antibiotics) (Unverified Allergy, Unknown, 06/06/16) baclofen (Verified Allergy, Unknown, 05/01/18) codeine (Unverified Allergy, Unknown, 05/27/14) cyclobenzaprine (Unverified Allergy, Unknown, 02/10/15) influenza virus vaccine, specific (Unverified Allergy, Unknown, 05/27/14) iodine (Unverified Allergy, Unknown, 05/27/14) Home Medications Buspirone HCl 10 Mg Tablet, 10 MG PO TID, (Reported) Cefaclor 250 Mg Capsule, 250 MG PO DAILY, (Reported) Dicyclomine HCl 10 Mg Capsule, 10 MG PO Q6H Prescribed by: YUMIKO HUNTER on 02/11/19 0001 Doxycycline Hyclate 100 Mg Tablet, 100 MG PO BID , Prescribed by: AARON PERKINS on 07/23/19 1433 Escitalopram Oxalate 10 Mg Tablet, 10 MG PO DAILY, (Reported) Mycophenolate Mofetil 500 Mg Tablet, 750 MG PO BID, (Reported) TAKES 1 & 1/2 (500MG) TABLET Ondansetron HCl 8 Mg Tablet, 8 MG PO TID, (Reported) Pantoprazole Sodium 40 Mg Tablet.dr, 40 MG PO DAILY Prescribed by: NISH CASTILLO on 07/29/19 0058 Patient Home Medication List Home Medication List Reviewed: Yes Review of Systems Review of Systems Constitutional: no symptoms reported EENTM: No Symptoms Reported Respiratory: See HPI Cardiovascular: See HPI Gastrointestinal: See HPI Genitourinary: No Symptoms Reported Musculoskeletal: no symptoms reported Skin: no symptoms reported Psychiatric/Neurological: No Symptoms Reported Endocrine: No Symptoms Reported Hematologic/Lymphatic: No Symptoms Reported Past Uuypqdl-Tbquvg-Rvlecx Hx Past Med/Social Hx: Reviewed Nursing Past Med/Soc Hx Patient Social History Alcohol Use: Denies Use Recreational Drug Use: No Smoking Status: Never a Smoker 2nd Hand Smoke Exposure: No Recent Foreign Travel: No Contact w/Someone Who Travel: No Recent Infectious Disease Expo: No Recent Hopitalizations: No Physical Abuse: No Sexual Abuse: No Mistreated: No Fear: No Immunizations Up To Date Tetanus Booster (TDap): Unknown PED Vaccines UTD: Yes Seasonal Allergies Seasonal Allergies: Yes Past Medical History Surgeries: Yes Abdominal, Arteriovenous Shunt, Dialysis, Kidney Transplant, Parathyroidectomy, Vascular Surgery Respiratory: Yes Asthma, Chronic Bronchitis Cardiac: Yes High Cholesterol Neurological: No 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 Disorders: No 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 Sexually Transmitted Disease: No HIV/AIDS: No Genitourinary: Yes (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") Renal Failure, UTI-Chronic Gastrointestinal: Yes (HIATAL HERNIA REPAIR X 2; CHRONIC ABDOMINAL PAIN ) Gastroesophageal Reflux, Hiatal Hernia, Ulcer Musculoskeletal: Yes (CHRONIC KNEE PAIN ) Degenerate Disk Disease, Scoliosis, Chronic Back Pain Endocrine: Yes (LABILE BLOOD GLUCOSE) Parathyroid Disease, Hypothyroidsim HEENT: No Cancer: No Psychosocial: Yes Anxiety, Depression Integumentary: No Blood Disorders: No Adverse Reaction/Blood Tranf: No Family Medical History Reviewed and Corrections made Cancer aunt grandfather (Hodgkin's) Chest pain 19 FATHER Family history: Allergy 19 FATHER 19 MOTHER (hay fever) G8 BROTHER (hay fever) G8 SISTER (hay fever) Family history: Breast disease G8 SISTER aunt Family history: Diabetes mellitus 19 FATHER Family history: Gastrointestinal disease 19 FATHER (Hernia) G8 BROTHER (crohn's) Hearing loss 19 FATHER Thyroid disease 19 MOTHER No Family History of: Abdominal aortic aneurysm [place] disease Alcoholism Aphasia Cancer of colon Congenital heart disease Congestive heart failure Cystic fibrosis Dementia Dysphagia Family history: Alzheimer's disease Family history: Arthritis Family history: Asthma Family history: Cardiovascular disease Family history: Coronary thrombosis Family history: Glaucoma Family history: Hypertension Family history: Osteoporosis Family history: Thyroid disorder Headache Heart disease Hereditary disease History of - anemia History of - disorder History of - respiratory disease History of drug abuse Human immunodeficiency virus (HIV) seropositivity Hypercholesterolemia Infertile Kidney disease Malignant neoplasm of lung Myocardial infarction Parkinson's disease Prostate cancer Psychotic disorder Seizure disorder Stroke Tuberculosis Visual impairment Heart Disease Physical Exam Vital Signs Vital Signs - First Documented 07/29/19 13:09 Temp 36.4 Pulse 88 Resp 20 B/P (MAP) 107/76 (86) Pulse Ox 92 O2 Delivery Room Air Capillary Refill : Less Than 3 Seconds Height, Weight, BMI Height: 5'7.00" Weight: 240lbs. 0oz. 108.893134ya; 37.00 BMI Method:Stated General Appearance: No Apparent Distress, WD/WN HEENT: PERRL/EOMI, Normal ENT Inspection Neck: Normal Inspection Respiratory: Lungs Clear, Normal Breath Sounds, No Accessory Muscle Use, No Respiratory Distress Cardiovascular: Regular Rate, Rhythm, No Edema, No Murmur Gastrointestinal: Normal Bowel Sounds, Soft, Tenderness (epigastrium and a little bit in the left upper quadrant. 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 Norm as Tested Skin: Normal Color, Warm/Dry Progress/Results/Core Measures Results/Orders Lab Results Laboratory Tests Test 07/29/19 13:20 Range/Units White Blood Count 8.6 4.3-11.0 10^3/uL Red Blood Count 5.17 4.35-5.85 10^6/uL Hemoglobin 14.5 11.5-16.0 G/DL Hematocrit 44 35-52 % Mean Corpuscular Volume 86 80-99 FL Mean Corpuscular Hemoglobin 28 25-34 PG Mean Corpuscular Hemoglobin Concent 33 32-36 G/DL Red Cell Distribution Width 13.5 10.0-14.5 % Platelet Count 318 130-400 10^3/uL Mean Platelet Volume 9.2 7.4-10.4 FL Neutrophils (%) (Auto) 56 42-75 % Lymphocytes (%) (Auto) 32 12-44 % Monocytes (%) (Auto) 11 0-12 % Eosinophils (%) (Auto) 1 0-10 % Basophils (%) (Auto) 1 0-10 % Neutrophils # (Auto) 4.8 1.8-7.8 X 10^3 Lymphocytes # (Auto) 2.7 1.0-4.0 X 10^3 Monocytes # (Auto) 0.9 0.0-1.0 X 10^3 Eosinophils # (Auto) 0.1 0.0-0.3 10^3/uL Basophils # (Auto) 0.0 0.0-0.1 10^3/uL Prothrombin Time 13.5 12.2-14.7 SEC INR Comment 1.0 0.8-1.4 Activated Partial Thromboplast Time 31 24-35 SEC D-Dimer 0.35 0.00-0.49 UG/ML Sodium Level 139 135-145 MMOL/L Potassium Level 3.8 3.6-5.0 MMOL/L Chloride Level 112 H 98-107 MMOL/L Carbon Dioxide Level 17 L 21-32 MMOL/L Anion Gap 10 5-14 MMOL/L Blood Urea Nitrogen 14 7-18 MG/DL Creatinine 0.91 0.60-1.30 MG/DL Estimat Glomerular Filtration Rate > 60 BUN/Creatinine Ratio 15 Glucose Level 71 70-105 MG/DL Calcium Level 9.2 8.5-10.1 MG/DL Corrected Calcium 9.2 8.5-10.1 MG/DL Magnesium Level 1.4 L 1.6-2.4 MG/DL Total Bilirubin 0.5 0.1-1.0 MG/DL Aspartate Amino Transf (AST/SGOT) 17 5-34 U/L Alanine Aminotransferase (ALT/SGPT) 18 0-55 U/L Alkaline Phosphatase 105 40-136 U/L Myoglobin 57.7 10.0-92.0 NG/ML Troponin I < 0.028 <0.028 NG/ML C-Reactive Protein High Sensitivity 0.39 0.00-0.50 MG/DL Total Protein 7.9 6.4-8.2 GM/DL Albumin 4.0 3.2-4.5 GM/DL Lipase 46 8-78 U/L My Orders Orders - NISH DAVALOS MD Cbc With Automated Diff (07/29/19 13:15) Magnesium (07/29/19 13:15) Ekg Tracing (07/29/19 13:15) Cardiac Profile 1 (07/29/19 13:15) Comprehensive Metabolic Panel (07/29/19 13:15) Myoglobin Serum (07/29/19 13:15) Protime With Inr (07/29/19 13:15) Partial Thromboplastin Time (07/29/19 13:15) O2 (07/29/19 13:15) Monitor-Rhythm Ecg Trace Only (07/29/19 13:15) Lipid Panel (07/30/19 06:00) Ed Iv/Invasive Line Start (07/29/19 13:15) Lipase (07/29/19 13:15) Chest Pa/Lat (2 View) (07/29/19 13:15) Lidocaine 2% Viscous 15 Ml (Xylocaine Vi (07/29/19 13:15) Antacid Suspension (Mylanta Suspension (07/29/19 13:15) Famotidine Injection (Pepcid Injection) (07/29/19 13:15) Fentanyl Injection (Sublimaze Injection (07/29/19 14:15) Hs C Reactive Protein (07/29/19 14:03) Fibrin Degradation Products (07/29/19 14:03) Magnesium 1 Gm/100 Ml Ivpb (Magnesium Donahue (07/29/19 14:15) Aspirin Chewable Tablet (Baby Aspirin Ch (07/29/19 14:30) Medications Given in ED Current Medications Medications Dose Ordered Sig/Joan Route Start Time Stop Time Status Last Admin Dose Admin Al Hydrox/Mg Hydrox/Simethicone 30 ml ONCE ONCE PO 07/29/19 13:15 07/29/19 13:18 DC 07/29/19 13:27 30 ML Aspirin 324 mg ONCE ONCE PO 07/29/19 14:30 07/29/19 14:31 DC 07/29/19 14:38 324 MG Fentanyl Citrate 50 mcg ONCE ONCE IVP 07/29/19 14:15 07/29/19 14:16 DC 07/29/19 14:18 50 MCG Lidocaine HCl 15 ml ONCE ONCE PO 07/29/19 13:15 07/29/19 13:18 DC 07/29/19 13:28 15 ML Magnesium Sulfate/ Dextrose 100 ml @ 100 mls/hr ONCE ONCE IV 07/29/19 14:15 07/29/19 15:14 DC 07/29/19 14:21 100 MLS/HR Vital Signs/I&O 07/29/19 07/29/19 13:09 13:10 Temp 36.4 Pulse 88 Resp 20 B/P (MAP) 107/76 (86) Pulse Ox 92 O2 Delivery Room Air Room Air Blood Pressure Mean: 86 Progress Progress Note : Progress Note Pepcid and GI cocktail was administered but did not seem to improve her pain. Chest pain workup was pursued. Patient initially declined aspirin due to her renal transplant history. She then later changed her mind and accepted the aspirin. Chest pain workup was unremarkable. D-dimer was unremarkable. Magnesium was slightly low and was replaced with a gram of IV magnesium sulfate. Patient eventually was given fentanyl. Pain did eventually improve, although it did not seem to necessarily improved with fentanyl. Patient was advised to keep her follow-up appointment with her primary care provider tomorrow. Initial ECG Impression Date: Jul 29, 2019 Initial ECG Impression Time: 13:18 Initial ECG Rate: 85 Initial ECG Rhythm: Normal Sinus Initial ECG Intervals: Normal Initial ECG Impression: Normal Comment Normal sinus rhythm with no ST elevation or depression. No abnormal intervals or axis deviation. Diagnostic Imaging Diagonstic Imaging: Xray Plain Films/CT/US/NM/MRI: chest Comments Chest x-ray viewed by me and report reviewed. See report below: NAME: MARYANNE ORTIZ [facility] REC#: [id number] PT STATUS: REG ER : 1975 PHYSICIAN: NISH DAVALOS MD ADMIT DATE: 07/29/19/ER Draft Date of Exam:07/29/19 CHEST PA/LAT (2 VIEW) INDICATION: Chest pain, shortness of air COMPARISON: 09/22/2019 TECHNIQUE: Two radiographs of the chest dated 07/29/2019 FINDINGS: The cardiac silhouette is within normal limits in size. No significant pulmonary vascular congestion. Minimal left basilar interstitial opacities. Otherwise, the lungs appear clear. No pleural effusion. No pneumothorax. [place] right curvature of the spine. Scattered osseous degenerative changes without acute osseous abnormality. IMPRESSION: Very minimal left basilar atelectasis and/or pneumonitis. Dictated on workstation # [id number] Dict: 07/29/19 1357 Trans: 07/29/19 1411 CHEVY [id number] Interpreted by: RENÉE GUILLERMO MD Departure Impression Primary Impression: Atypical chest pain Additional Impressions: Epigastric pain Hypomagnesemia Disposition: HOME, SELF-CARE Condition: Improved Departure-Patient Inst. Decision time for Depature: 15:51 Referrals: LIYA ALVARADO MD (PCP/Family) Primary Care Physician Patient Instructions: Chest Pain That Is Not Caused by the Heart (DC) Add. Discharge Instructions: Keep your follow-up appointment tomorrow. Add Protonix as prescribed for antacid therapy. You may take your Ultram (tramadol) as previously prescribed. In addition you may also take Tylenol (acetaminophen) up to 1000 mg every 6 hours as needed. The combination of these 2 medications generally does well in controlling pain. Return to the emergency room for worsening symptoms. Because of the pain in your upper abdominal region, discuss potentially obtaining a gallbladder ultrasound with your primary care provider. Finish your antibiotics as prescribed. All discharge instructions reviewed with patient and/or family. Voiced understanding. Scripts Pantoprazole Sodium (Protonix) 40 Mg Tablet. 40 MG PO DAILY, #30 TAB Prov: NISH DAVALOS MD 07/29/19 Copy Copies To 1: LIYA ALVARADO MD, JOSHUA T MD Jul 29, 2019 14:35
--- NOTE | 2019-07-29 14:39 | NUR ---
PATIENT STATES FENTANYL BROUGHT PAIN FROM A 10 DOWN TO A 9.
[2019-07-29] MEDS ORDERED: PANT40TA2 PO (15:54)
[2019-07-29 16:07] VITALS: BP 99/77
== END 2019-07-29 16:10 | disposition home or self-care (01) ==
LOC: EDUNIT# 13:08 → ER 13:09
DX: R07.89 Other chest pain (principal); R10.13 Epigastric pain; E83.42 Hypomagnesemia; J45.909 Unspecified asthma, uncomplicated; F41.9 Anxiety disorder, unspecified; F32.9 Major depressive disorder, single episode, unspecified; E78.00 Pure hypercholesterolemia, unspecified; K21.9 Gastro-esophageal reflux disease without esophagitis; E03.9 Hypothyroidism, unspecified; Z87.440 Personal history of urinary (tract) infections; Z94.0 Kidney transplant status; Z88.2 Allergy status to sulfonamides; Z98.890 Other specified postprocedural states; Z99.2 Dependence on renal dialysis; Z88.5 Allergy status to narcotic agent; Z88.8 Allergy status to other drugs, medicaments and biological substances; Z88.7 Allergy status to serum and vaccine; Z80.7 Family history of other malignant neoplasms of lymphoid, hematopoietic and related tissues
CPT/HCPCS: 36415; 71046; 80053; 83690; 83735; 83874; 84484; 85025; 85379; 85610; 85730; 86141; 93005; 93041

== ENCOUNTER → 2019-08-31 | Outpatient (CLI) | payer MEDICAID ==
[~2019-08-31] MED LIST changes: +BUSP10TA95 PO; +CEFA250C PO; +ESCI10TA55 PO; +ONDA8TAB12 PO; +PANT40TA2 PO
[2019-08-31 14:06] LABS: ALBUMIN 4.1 GM/DL (3.2-4.5); BUN/CREATININE RATIO 13; CALCIUM 9.4 MG/DL (8.5-10.1); CARBON DIOXIDE 22 MMOL/L (21-32); CHLORIDE 108 MMOL/L (98-107); CREATININE SERUM 0.94 MG/DL (0.60-1.30); GFR ESTIMATED > 60; GLUCOSE 97 MG/DL (70-105); PHOSPHORUS 3.4 MG/DL (2.3-4.7); POTASSIUM 4.5 MMOL/L (3.6-5.0); SODIUM 138 MMOL/L (135-145)
== END ==
LOC: LAB 13:29
PROVIDERS: ATTEND Anesthesiology
DX: Z94.0 Kidney transplant status (principal)
CPT/HCPCS: 36415; 80069

== ENCOUNTER 2019-11-18 06:49 | Emergency (ER) | payer MEDICAID ==
[~2019-11-18] VITALS: Ht 170.1 cm; Wt 114.1 kg
[~2019-11-18 06:49] MED LIST changes: -CLON0.5T13 PO; +CLON0.5T4 PO; +OMEP-280 PO; -OMEP20CA13 PO; -TRAM50TA2 PO; +TRM50T PO
[2019-11-18] MEDS ORDERED: MUPI1OIN6 ×2 (08:21→08:22)
--- NOTE | 2019-11-18 08:22 | ED EENT ---
History of Present Illness General Chief Complaint: Nasal Problems Stated Complaint: NOSE BLEED Nursing Triage Note: Pt to ED via EMS for bloody nose and anxiety. Upon arrival EMS reported bleeding had stopped and pt was now calm. Pt sent to waiting room due to another pt being intubated as the time; pt verbalized understanding. When assessed, pt is no longer bleeding and is calm. Source: patient History of Present Illness Date Seen by Provider: Nov 18, 2019 Time Seen by Provider: 08:10 Initial Comments PT ARRIVES VIA EMS FROM HOME, MALE S.O. ARRIVES VIA POV C/O NOSEBLEED FROM LEFT NARE--BEGAN AT 0600, LASTED 30 MINUTES AND HAS NOT BLED AGAIN EMS REPORT THAT PT WAS VERY ANXIOUS, PT HAS CALMED PRIOR TO ARRIVAL NO HISTORY OF NOSEBLEEDS PT IS NOT ON ASPIRIN OR BLOOD THINNERS PT ADMITS TO FREQUENTLY PICKING AND "SCRATCHING" THE INSIDE OF HER NOSE DOES NOT HAVE ANY HUMIDIFIED AIR IN THE HOME--WEATHER HAS BEEN VERY COLD YESTERDAY AND TODAY--GAS HEAT. PT DENIES RECENT URI SYMPTOMS OR FEVER NO PAIN TO NOSE PT IS RENAL TRANSPLANT PT ON CELLCEPT AND PROGRAF PCP: DR. ARVIZU Allergies and Home Medications Allergies Coded Allergies: Sulfa (Sulfonamide Antibiotics) (Unverified Allergy, Unknown, 06/06/16) baclofen (Verified Allergy, Unknown, 05/01/18) codeine (Unverified Allergy, Unknown, 05/27/14) cyclobenzaprine (Unverified Allergy, Unknown, 02/10/15) influenza virus vaccine, specific (Unverified Allergy, Unknown, 05/27/14) iodine (Unverified Allergy, Unknown, 05/27/14) Home Medications Buspirone HCl 10 Mg Tablet, 10 MG PO TID, (Reported) Cefaclor 250 Mg Capsule, 250 MG PO DAILY, (Reported) Dicyclomine HCl 10 Mg Capsule, 10 MG PO Q6H Prescribed by: YUMIKO HUNTER on 02/11/19 0001 Doxycycline Hyclate 100 Mg Tablet, 100 MG PO BID , Prescribed by: AARON PERKINS on 07/23/19 1433 Escitalopram Oxalate 10 Mg Tablet, 10 MG PO DAILY, (Reported) Mupirocin 1 Gm Oin.pf.[place]ip[place], 1 GM NA BID Prescribed by: YUMIKO HUNTER on 11/18/19 0822 Mycophenolate Mofetil 500 Mg Tablet, 750 MG PO BID, (Reported) TAKES 1 & 1/2 (500MG) TABLET Ondansetron HCl 8 Mg Tablet, 8 MG PO TID, (Reported) Pantoprazole Sodium 40 Mg Tablet.dr, 40 MG PO DAILY Prescribed by: NISH CASTILLO on 07/29/19 4019 Patient Home Medication List Home Medication List Reviewed: Yes Review of Systems Review of Systems Constitutional: no symptoms reported; No dizziness, No fever Nose: see HPI; denies clots, denies congestion; epistaxis; denies pain Mouth: no symptoms reported Throat: no symptoms reported Respiratory: no symptoms reported Gastrointestinal: no symptoms reported Skin: no symptoms reported Neurological: No Symptoms Reported Hematologic/Lymphatic: No Symptoms Reported Immunological/Allergic: see HPI, transplant Past Eudbosm-Lswztw-Fugyib Hx Patient Social History 2nd Hand Smoke Exposure: No Recent Foreign Travel: No Contact w/Someone Who Travel: No Recent Infectious Disease Expo: No Recent Hopitalizations: No Immunizations Up To Date Tetanus Booster (TDap): Unknown PED Vaccines UTD: Yes Seasonal Allergies Seasonal Allergies: Yes Past Medical History Surgeries: Yes (HIATAL HERNIA REPAIR; RENAL TRANSPLANT 2005; ) Abdominal, Arteriovenous Shunt, Dialysis, Kidney Transplant, Parathyroidectomy, Vascular Surgery Respiratory: Yes Asthma, Chronic Bronchitis Cardiac: Yes High Cholesterol Neurological: No 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 Disorders: No 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 Sexually Transmitted Disease: No HIV/AIDS: No Genitourinary: Yes (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") Renal Failure, Dialysis, UTI-Chronic Gastrointestinal: Yes (HIATAL HERNIA REPAIR X 2; CHRONIC ABDOMINAL PAIN ) Gastroesophageal Reflux, Hiatal Hernia, Ulcer Musculoskeletal: Yes (CHRONIC KNEE PAIN ) Degenerate Disk Disease, Arthritis, Scoliosis, Chronic Back Pain Endocrine: Yes (LABILE BLOOD GLUCOSE) Parathyroid Disease, Hypothyroidsim HEENT: No Cancer: No Psychosocial: Yes Anxiety, Depression Integumentary: No Blood Disorders: No Adverse Reaction/Blood Tranf: No Family Medical History Cancer aunt grandfather (Hodgkin's) Chest pain 19 FATHER Family history: Allergy 19 FATHER 19 MOTHER (hay fever) G8 BROTHER (hay fever) G8 SISTER (hay fever) Family history: Breast disease G8 SISTER aunt Family history: Diabetes mellitus 19 FATHER Family history: Gastrointestinal disease 19 FATHER (Hernia) G8 BROTHER (crohn's) Hearing loss 19 FATHER Thyroid disease 19 MOTHER No Family History of: Abdominal aortic aneurysm Simms's disease Alcoholism Aphasia Cancer of colon Congenital heart disease Congestive heart failure Cystic fibrosis Dementia Dysphagia Family history: Alzheimer's disease Family history: Arthritis Family history: Asthma Family history: Cardiovascular disease Family history: Coronary thrombosis Family history: Glaucoma Family history: Hypertension Family history: Osteoporosis Family history: Thyroid disorder Headache Heart disease Hereditary disease History of - anemia History of - disorder History of - respiratory disease History of drug abuse Human immunodeficiency virus (HIV) seropositivity Hypercholesterolemia Infertile Kidney disease Malignant neoplasm of lung Myocardial infarction Parkinson's disease Prostate cancer Psychotic disorder Seizure disorder Stroke Tuberculosis Visual impairment Heart Disease Physical Exam Vital Signs Vital Signs - First Documented 11/18/19 07:51 Temp 36.9 Pulse 86 Resp 20 B/P (MAP) 94/76 (82) Pulse Ox 93 O2 Delivery Room Air Height, Weight, BMI Height: 5'7.00" Weight: 240lbs. 0oz. 108.611474bc; 39.00 BMI Method:Stated General Appearance: WD/WN, no apparent distress Eyes: bilateral eye normal inspection Ears: bilateral ear TM normal Nose: No active bleeding, No discharge; dried blood; No sinus tenderness; other (HAS SMALL AMOUNT OF DRIED BLOOD IN BOTH NARES--LEFT > RIGHT, HAS SCABBED AREAS TO BOTH SIDES OF SEPTUM, AND AREA OF RECENT BLEEDING APPEARS TO BE COMING FROM THE LEFT --SCAB APPEARS TO BE PARTIALLY REMOVED) Mouth/Throat: pharynx normal, other (NO BLOOD IN POSTERIOR PHARYNX) Neck: normal inspection Cardiovascular: regular rate, rhythm, no murmur Respiratory: normal breath sounds 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 Referrals: LIYA ARVIUZ MD (PCP/Family) Primary Care Physician Patient Instructions: Nosebleeds (DC) Add. Discharge Instructions: DO NOT PICK OR RUB YOUR NOSE HUMIDIFY THE AIR IN YOUR HOME FOLLOW UP WITH YOUR DR IF SYMPTOMS PERSIST All discharge instructions reviewed with patient and/or family. Voiced understanding. Scripts Mupirocin (Mupirocin) 1 Gm Oin.pf.mariposa 1 GM NA BID, #22 TUBE Prov: YUMIKO HUNTER DO 11/18/19 YUMIKO HUNTER DO Nov 18, 2019 08:22
[2019-11-18 08:50] VITALS: BP 112/77
== END 2019-11-18 08:50 | disposition home or self-care (01) ==
LOC: EDUNIT# 06:49 → ER 06:50
DX: R04.0 Epistaxis (principal); F98.8 Other specified behavioral and emotional disorders with onset usually occurring in childhood and adolescence; J45.909 Unspecified asthma, uncomplicated; E78.00 Pure hypercholesterolemia, unspecified; F41.9 Anxiety disorder, unspecified; F32.9 Major depressive disorder, single episode, unspecified; K21.9 Gastro-esophageal reflux disease without esophagitis; E03.9 Hypothyroidism, unspecified; Z87.440 Personal history of urinary (tract) infections; Z99.2 Dependence on renal dialysis; Z94.0 Kidney transplant status; Z88.2 Allergy status to sulfonamides; Z88.5 Allergy status to narcotic agent; Z88.7 Allergy status to serum and vaccine; Z88.8 Allergy status to other drugs, medicaments and biological substances
CPT/HCPCS: 99283

== ENCOUNTER 2020-05-03 14:17 | Emergency (ER) | payer MEDICAID ==
[~2020-05-03] VITALS: Ht 170 cm; Wt 114.1 kg
[~2020-05-03 14:17] MED LIST changes: +MUPI1OIN6; -OMEP-280 PO; +OMEP20CA18 PO; -ONDA8TAB12 PO; +ONDA8TAB15 PO; +TACR1CAP24 PO
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
--- OUTSIDE RECORDS SUMMARY | 2020-05-03 14:27 | XMS REPORT ---
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 20 Active 614937754 Problem Screening breast examination Z12.39 A ctive 068949584 Problem Irritable bowel syndrome without diarrhea K58.9 Active 85030491 Problem Irritable bowel syndrome with diarrhea K58.0 Active [id number] ALLERGIES No Information ENCOUNTERS Encounter Location Date Diagnosis [facility] [id number] [place] [address] [id number] March, Dental examination Z01.[address] [facility] [address] [id number] [address] [place] [address] [id number] Feb, Caries K02.[address] [facility] [address] [id number] [address] [place] [address] [id number] Feb, Caries K02.[address] [facility] [address] [id number] [address] [place] [address] [id number] Jan, [facility] [address] [id number] [address] [place] [address] [id number] Jan, Caries K02.[address] [facility] [address] [id number] [address] [place] [address] [id number] Dec, [facility] [address] [id number] [address] [place] [address] [id number] 18 Dec, 2018 Dental examination Z01.20 an d Caries K02.9 [place] [address] [address] 14 Sep, 2016 Dental examination Z01.20 [place] [address] [place] [id number] [address] [place] [id number] 08 Jan, 2016 Nausea R11.0 ; Irritable bow el syndrome without diarrhea K58.9 and History of renal transplant Z94.0 [place] [address] [address] 2015 [place] [address] [address] 11 Dec, 2015 Breast pain N64.4 ; Screenin g breast examination Z12.39 and Mild intermittent asthma without complication J45.20 [place] [address] [id number] 10 Dec, 2015 [place] [address] [address] 09 Dec, 2015 Kidney transplant status Z94 .0 ; Personal history of immunosupression therapy Z92.25 ; Recurrent UTI N39.0 and Encounter for screening, unspecified Z13.9 [place] [address] [place] [id number] [address] [place] [phone] Oct, [place] [address] [place] [id number] [address] [place] [phone] Oct, [place] [address] [place] [id number] [address] [place] [phone] Oct, [place] [address] [address] Oct, Hiatal hernia K44.9 and Atyp ical chest pain R07.89 [place] [address] [place] [id number] [address] [place] [phone] Oct, [place] [address] [id number] [address] [place] [phone] Sep, Kidney replaced by transplan t V42.0 and Bilateral low back pain with sciatica, sciatica laterality unspecified M54.40 [facility] [address] [id number] [address] [place] [phone] Sep, [facility] [address] [id number] [address] [place] [address] Sep, Kidney replaced by transplan t V42.0 ; Bilateral low back pain with sciatica, sciatica laterality unspecified M54.40 ; Anxiety F41.9 and Primary insomnia F51.01 [facility] [address] [id number] [address] [place] [phone] Aug, [facility] [address] [id number] [address] [place] [address] Aug, [facility] [address] [id number] [address] [place] [phone] Aug, Kidney transplant status Z94 .0 ; Personal history of immunosupression therapy Z92.25 ; Recurrent urinary tract infection N39.0 and Screening Z13.9 [facility] [address] [id number] [address] [place] [phone] Aug, [facility] [address] [id number] [address] [place] [phone] Aug, Encounter for aftercare foll owing kidney transplant Z48.22 ; Chronic radicular pain of lower back M54.16 and PND (post-nasal drip) R09.82 [facility] [address] [id number] [address] [place] [address] Jul, [facility] [address] [id number] [address] [place] [phone] Jul, [facility] [address] [id number] [address] [place] [address] Jul, [facility] [address] [id number] [address] [place] [address] Jul, Kidney replaced by transplan t V42.0 ; Depressive disorder, not elsewhere classified 311 ; Anxiety state, unspecified 300.00 ; Insomnia, unspecified 780.52 ; Irritable bowel syndrome 564.1 ; Chronic lumbar pain 724.2 and GERD (gastroesophageal reflux disease) 530.81 [facility] [address] [id number] [address] [place] [id number] Jul, [facility] [address] [id number] [address] [place] [id number] Jun, [facility] [address] [id number] [address] [place] [address] Jun, [facility] [address] [facility] [place] [id number] [address] [place] [address] Jun, [facility] [address] [facility] [place] [id number] [address] [place] [phone] Jun, Kidney replaced by transplan t V42.0 [facility] [address] [facility] [place] [id number] [address] [place] [address] May, [facility] [address] [facility] [place] [id number] [address] [place] [phone] May, Depression with anxiety 300. 4 and Skin infection 686.9 [facility] [address] [facility] [place] [id number] [address] [place] [address] May, [facility] [address] [id number] [address] [place] [phone] May, Kidney replaced by transplan t V42.0 ; Recurrent UTI (urinary tract infection) 599.0 and Absence of menstruation 626.0 [facility] [address] [facility] [place] [id number] [address] [place] [address] May, [facility] [address] [facility] [place] [id number] [address] [place] [address] May, Depression with anxiety 300. 4 [place] [address] [place] [id number] [address] [place] [phone] May, [facility] [address] [place] [id number] [address] [place] [phone] Apr, [facility] [address] [place] [id number] [address] [place] [address] Apr, [facility] [address] [place] [id number] [address] [place] [address] Apr, Depression, major, recurrent , mild 296.31 [facility] [address] [place] [id number] [address] [place] [address] Apr, Depression, major, recurrent , mild 296.31 [place] [address] [place] [id number] [address] [place] [address] Apr, Cervicalgia 723.1 ; Lumbago 724.2 ; Anxiety state, unspecified 300.00 ; Nausea 787.02 ; 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 ; Recurrent UTI (urinary tract infection) 599.0 and Knee pain, bilateral 719.46 [place] [address] [place] [id number] [address] [place] [address] March, Depression, major, recurrent , mild 296.31 [facility] [address] [place] [id number] [address] [place] [id number] March, [facility] [address] [place] [id number] [address] [place] [address] March, [facility] [address] [place] [id number] [address] [place] [address] March, Lumbago 724.2 ; Insomnia, un specified 780.52 ; Depressive disorder, not elsewhere classified 311 ; 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 ; Anxiety 300.00 ; Allergic rhinitis 477.9 and GERD (gastroesophageal reflux disease) 530.81 [facility] [address] [place] [id number] [address] [place] [phone] Feb, [facility] [address] [id number] [address] [place] [address], [place] [address] Feb, [facility] [address] [id number] [address] [place] [address], [place] [address] Jan, [facility] [address] [id number] [address] [place] [address], [place] [address] Jan, [facility] [address] [id number] [address] [place] [address], [place] [address] Jan, [facility] [address] [id number] [address] [place] [address], [place] [address] Jan, [facility] [address] [id number] [address] [place] [address], [place] [address] Dec, [facility] [address] [id number] [address] [place] [address], [place] [address] Dec, [facility] [address] [id number] [address] [place] [address], [place] [address] Dec, [facility] [address] [id number] [address] [place] [address], [place] [address] Dec, [facility] [address] [id number] [address] [place] [address], [place] [address] Dec, [facility] [address] [id number] [address] [place] [address], [place] [address] Dec, [facility] [address] [id number] [address] [place] [address], [place] [address] Dec, [facility] [address] [id number] [address] [place] [address], [place] [address] Nov, [facility] [address] [id number] [address] [place] [address], [place] [address] Nov, [facility] [address] [id number] [address] [place] [address], [place] [address] Nov, [facility] [address] [id number] [address] [place] [address] [address] Nov, [facility] [address] [id number] [address] [place] [address], [place] [address] Nov, [facility] [address] [id number] [address] [place] [address], [place] [address] Nov, [facility] [address] [id number] [address] [place] [address], [place] [address] Nov, [facility] [address] [id number] [address] [place] [address], [place] [address] Nov, [facility] [address] [id number] [address] [place] [address], [place] [address] Nov, [facility] [address] [id number] [address] [place] [address], [place] [address] Nov, [facility] [address] [id number] [address] [place] [address], [place] [address] Nov, [facility] [address] [id number] [address] [place] [address], [place] [address] Nov, [facility] [address] [id number] [address] [place] [address], [place] [address] Nov, [facility] [address] [id number] [address] [place] [address], [place] [address] Nov, [facility] [address] [id number] [address] [place] [address], [place] [address] Nov, [facility] [address] [id number] [address] [place] [address], [place] [address] Nov, [facility] [address] [id number] [address] [place] [address], [place] [address] Nov, [facility] [address] [id number] [address] [place] [address], [place] [address] Nov, [facility] [address] [id number] [address] [place] [address], [place] [address] Nov, [facility] [address] [id number] [address] [place] [address], [place] [address] Nov, [facility] [address] [id number] [address] [place] [address], [place] [address] Nov, [facility] [address] [id number] [address] [place] [address], [place] [address] Nov, [facility] [address] [id number] [address] [place] [address], [place] [address] Nov, [facility] [address] [id number] [address] [place] [address], [place] [address] Nov, [facility] [address] [id number] [address] [place] [address], [place] [address] Nov, [facility] [address] [id number] [address] [place] [address], [place] [address] Nov, [facility] [address] [id number] [address] [place] [address], [place] [address] Nov, [facility] [address] [id number] [address] [place] [address], [place] [address] Nov, [facility] [address] [id number] [address] [place] [address], [place] [address] Nov, [facility] [address] [id number] [address] [place] [address], [place] [address] Oct, [facility] [address] [id number] [address] [place] [address], [place] [address] Oct, [facility] [address] [id number] [address] [place] [address], [place] [address] Oct, [facility] [address] [id number] [address] [place] [address], [place] [address] Oct, [facility] [address] [id number] [address] [place] [address], [place] [address] Oct, [facility] [address] [id number] [address] [place] [address], [place] [address] Oct, [facility] [address] [id number] [address] [place] [address], [place] [address] Oct, [facility] [address] [id number] [address] [place] [address], [place] [address] Oct, [facility] [address] [id number] [address] [place] [address], [place] [address] Oct, [facility] [address] [id number] [address] [place] [address], [place] [address] Oct, [facility] [address] [id number] [address] [place] [address], [place] [address] Oct, [facility] [address] [id number] [address] [place] [address], [place] [address] Oct, [facility] [address] [id number] [address] [place] [address], [place] [address] Oct, [facility] [address] [id number] [address] [place] [address], [place] [address] Oct, [facility] [address] [id number] [address] [place] [address], [place] [address] Oct, [facility] [address] [id number] [address] [place] [address], [place] [address] Oct, [facility] [address] [id number] [address] [place] [address], [place] [address] Oct, [facility] [address] [id number] [address] [place] [address], [place] [address] Oct, [facility] [address] [id number] [address] [place] [address], [place] [address] Oct, [facility] [address] [id number] [address] [place] [address], [place] [address] 05 Oct, 2014 [facility] [address] [id number] [address] [place] [address], [place] [address] 05 Oct, 2014 [facility] [address] [id number] [address] [place] [address], [place] [address] Oct, [facility] [address] [id number] [address] [place] [address], [place] [address] Oct, [facility] [address] [id number] [address] [place] [address], [place] [address] Sep, [facility] [address] [id number] [address] [place] [address], [place] [address] Sep, [facility] [address] [id number] [address] [place] [address], [place] [address] Sep, [facility] [address] [id number] [address] [place] [address], [place] [address] Sep, [facility] [address] [id number] [address] [place] [address], [place] [address] Sep, [facility] [address] [id number] [address] [place] [address], [place] [address] Sep, [facility] [address] [id number] [address] [place] [address], [place] [address] Sep, [facility] [address] [id number] [address] [place] [address], [place] [address] Sep, [facility] [address] [id number] [address] [place] [address], [place] [address] Sep, [facility] [address] [id number] [address] [place] [address], [place] [address] Sep, [facility] [address] [id number] [address] [place] [address], [place] [address] Sep, [facility] [address] [id number] [address] [place] [address], [place] [address] Sep, [facility] [address] [id number] [address] [place] [address], [place] [address] Sep, [facility] [address] [id number] [address] [place] [address], [place] [address] Sep, [facility] [address] [id number] [address] [place] [address], [place] [address] Sep, [facility] [address] [id number] [address] [place] [address], [place] [address] Sep, [facility] [address] [id number] [address] [place] [address], [place] [address] Sep, [facility] [address] [id number] [address] [place] [address], [place] [address] Sep, [facility] [address] [id number] [address] [place] [address], [place] [address] Sep, [facility] [address] [id number] [address] [place] [address], [place] [address] Sep, [facility] [address] [id number] [address] [place] [address], [place] [address] Sep, [facility] [address] [id number] [address] [place] [address], [place] [address] Sep, [facility] [address] [id number] [address] [place] [address], [place] [address] Sep, [facility] [address] [id number] [address] [place] [address], [place] [address] Sep, [facility] [address] [id number] [address] [place] [address], [place] [address] Sep, [facility] [address] [id number] [address] [place] [address], [place] [address] Sep, [facility] [address] [id number] [address] [place] [address], [place] [address] Sep, [facility] [address] [id number] [address] [place] [address], [place] [address] Sep, [facility] [address] [id number] [address] [place] [address], [place] [address] Aug, [facility] [address] [id number] [address] [place] [address], [place] [address] Aug, [facility] [address] [id number] [address] [place] [address], [place] [address] Aug, [facility] [address] [id number] [address] [place] [address], [place] [address] Aug, [facility] [address] [id number] [address] [place] [address], [place] [address] Aug, [facility] [address] [id number] [address] [place] [address], [place] [address] Aug, [facility] [address] [id number] [address] [place] [address], [place] [address] Aug, [facility] [address] [id number] [address] [place] [address], [place] [address] Aug, [facility] [address] [id number] [address] [place] [address], [place] [address] Aug, [facility] [address] [id number] [address] [place] [address], [place] [address] Aug, [facility] [address] [id number] [address] [place] [address], [place] [address] Aug, [facility] [address] [id number] [address] [place] [id number] Aug, [facility] [address] [id number] [address] [place] [id number] Aug, [facility] [address] [id number] [address] [place] [id number] Aug, [facility] [address] [id number] [address] [place] [address], [place] [address] Aug, [facility] [address] [id number] [address] [place] [address], [place] [address] Aug, [facility] [address] [id number] [address] [place] [id number] Aug, [facility] [address] [id number] [address] [place] [id number] 17 Aug, 2013 [facility] [address] [id number] [address] [place] [address], [place] [address] 14 Aug, 2013 [facility] [address] [id number] [address] [place] [id number] 14 Aug, 2013 [facility] [address] [id number] [address] [place] [address], [place] [address] 09 Aug, 2013 [facility] [address] [id number] [address] [place] [id number] 09 Aug, 2013 [facility] [address] [id number] [address] [place] [address], [place] [address] Aug, 2013 [facility] [address] [id number] [address] [place] [address], [place] [address] Aug, 2013 [facility] [address] [id number] [address] [place] [id number] 08 Aug, 2013 [facility] [address] [id number] [address] [place] [id number] 07 Aug, 2013 [facility] [address] [id number] [address] [place] [id number] Aug, 2013 [facility] [address] [id number] [address] [place] [id number] Aug, 2013 [facility] [address] [id number] [address] [place] [id number] 07 Aug, 2013 [facility] [address] [id number] [address] [place] [id number] 30 Jul, 2013 [facility] [address] [id number] [address] [place] [id number] 30 Jul, 2013 [facility] [address] [id number] [address] [place] [id number] 29 Jul, 2013 [facility] [address] [id number] [address] [place] [id number] 29 Jul, 2013 [facility] [address] [id number] [address] [place] [id number] 19 Jul, 2013 [facility] [address] [id number] [address] [place] [id number] 19 Jul, 2013 [facility] [address] [id number] [address] [place] [address] 18 Jul, 2013 [facility] [address] [id number] [address] [place] [address] 18 Jul, 2013 [facility] [address] [id number] [address] [place] [id number] 17 Jul, 2013 [facility] [address] [id number] [address] [place] [address], [place] [address] 17 Jul, 2013 [facility] [address] [id number] [address] [place] [address], [place] [address] 10 Jul, 2013 [facility] [address] [id number] [address] [place] [address], [place] [address] 10 Jul, 2013 [facility] [address] [id number] [address] [place] [address], [place] [id number] Jun, [facility] [address] [id number] [address] [place] [address], [place] [id number] Jun, [facility] [address] [id number] [address] [place] [address], [place] [id number] Jun, [facility] [address] [id number] [address] [place] [address], [place] [address] Jun, [facility] [address] [id number] [address] [place] [address], [place] [address] Jun, [facility] [address] [id number] [address] [place] [address], [place] [address] Jun, [facility] [address] [id number] [address] [place] [address], [place] [id number] Jun, [facility] [address] [id number] [address] [place], [place] [address] [address] Jun, [facility] [address] [id number] [address] [place] [id number] Jun, [facility] [address] [id number] [address] [place] [id number] Jun, [facility] [address] [id number] [address] [place] [id number] Jun, [facility] [address] [id number] [address] [place] [id number] Jun, [facility] [address] [id number] [address] [place] [id number] May, [facility] [address] [id number] [address] [place] [id number] May, [facility] [address] [facility] [id number] [address] [place] [id number] May, IMMUNIZATIONS No Known Immunizations SOCIAL HISTORY Never Assessed REASON FOR VISIT PLAN OF CARE VITAL SIGNS MEDICATIONS Unknown Medications RESULTS No Results PROCEDURES [...]
--- OUTSIDE RECORDS SUMMARY | 2020-05-03 14:27 | XMS REPORT ---
Author Author Tracee AVILA Organization [facility] Address [address] [place] [address] Care Team Providers Care Investment Banking Associate Name Role Phone SARAI AVILA Unavailable PROBLEMS Type Condition ICD9-CM Code KDZ32-NV Code Onset Dates Condition S tatus SNOMED Code Problem Primary insomnia F51.01 Active 397 2004 Problem Breast pain N64.4 Active 95893703 Problem History of renal transplant Z94.0 Ac tive 677235580 Problem Violation of controlled substance agreement Z91.14 Active 342394832 Problem Mild intermittent asthma without complication J45. 20 Active 985559385 Problem Screening breast examination Z12.39 A ctive 655241934 Problem Irritable bowel syndrome without diarrhea K58.9 Active 03520694 Problem Irritable bowel syndrome with diarrhea K58.0 Active [id number] ALLERGIES No Information ENCOUNTERS Encounter Location Date Diagnosis [facility] [id number] [place] [address] [id number] March, Dental examination Z01.20 [facility] [address] [id number] [address] [place] [address] [id number] Feb, Caries K02.9 [facility] [address] [id number] [address] [place] [address] [id number] Feb, Caries K02.9 [facility] [address] [id number] [address] [place] [address] [id number] Jan, [facility] [address] [id number] [address] [place] [address] [id number] Jan, Caries K02.9 [facility] [address] [id number] [address] [place] [address] [id number] Dec, [facility] [address] [id number] [address] [place] [address] [id number] 18 Dec, 2018 Dental examination Z01.20 an d Caries K02.9 [place] [address] [id number] 14 Sep, 2016 Dental examination Z01.20 [place] [address] [address] [place] [id number] [address] [place] [address] 08 Jan, 2016 Nausea R11.0 ; Irritable bow el syndrome without diarrhea K58.9 and History of renal transplant Z94.0 [place] [address] [id number] 2015 [place] [address] [id number] 11 Dec, 2015 Breast pain N64.4 ; Screenin g breast examination Z12.39 and Mild intermittent asthma without complication J45.20 [place] [address] [id number] 10 Dec, 2015 [place] [address] [id number] 09 Dec, 2015 Kidney transplant status Z94 .0 ; Personal history of immunosupression therapy Z92.25 ; Recurrent UTI N39.0 and Encounter for screening, unspecified Z13.9 [place] [address] [address] [place] [id number] [address] [place] [phone] Oct, [place] [address] [address] [place] [id number] [address] [place] [phone] Oct, [place] [address] [address] [place] [id number] [address] [place] [phone] Oct, [place] [address] [address] Oct, Hiatal hernia K44.9 and Atyp ical chest pain R07.89 [place] [address] [address] [place] [id number] [address] [place] [phone] Oct, [place] [address] [id number] [address] [place] [phone] Sep, Kidney replaced by transplan t V42.0 and Bilateral low back pain with sciatica, sciatica laterality unspecified M54.40 [facility] [address] [id number] [address] [place] [phone] Sep, [facility] [address] [id number] [address] [place] [address] Sep, Kidney replaced by transplan t V42.0 ; Bilateral low back pain with sciatica, sciatica laterality unspecified M54.40 ; Anxiety F41.9 and Primary insomnia F51.01 [facility] [address] [id number] [address] [place] [address] Aug, [facility] [address] [id number] [address] [place] [address] Aug, [facility] [address] [id number] [address] [place] [address] Aug, Kidney transplant status Z94 .0 ; Personal history of immunosupression therapy Z92.25 ; Recurrent urinary tract infection N39.0 and Screening Z13.9 [facility] [address] [id number] [address] [place] [phone] Aug, [facility] [address] [id number] [address] [place] [id number] Aug, Encounter for aftercare foll owing kidney transplant Z48.22 ; Chronic radicular pain of lower back M54.16 and PND (post-nasal drip) R09.82 [facility] [address] [id number] [address] [place] [phone] Jul, [facility] [address] [id number] [address] [place] [address] Jul, [facility] [address] [id number] [address] [place] [address] Jul, [facility] [address] [id number] [address] [place] [address] Jul, Kidney replaced by transplan t V42.0 ; Depressive disorder, not elsewhere classified 311 ; Anxiety state, unspecified 300.00 ; Insomnia, unspecified 780.52 ; Irritable bowel syndrome 564.1 ; Chronic lumbar pain 724.2 and GERD (gastroesophageal reflux disease) 530.81 [facility] [address] [id number] [address] [place] [address] Jul, [facility] [address] [id number] [address] [place] [address] Jun, [facility] [address] [id number] [address] [place] [phone] Jun, [facility] [address] [facility] [id number] [address] [place] [address] Jun, [facility] [address] [facility] [id number] [address] [place] [address] Jun, Kidney replaced by transplan t V42.0 [facility] [address] [facility] [id number] [address] [place] [address] May, [facility] [address] [facility] [id number] [address] [place] [address] May, Depression with anxiety 300. 4 and Skin infection 686.9 [facility] [address] [facility] [id number] [address] [place] [address] May, [facility] [address] [id number] [address] [place] [address] May, Kidney replaced by transplan t V42.0 ; Recurrent UTI (urinary tract infection) 599.0 and Absence of menstruation 626.0 [facility] [address] [facility] [id number] [address] [place] [phone] May, [facility] [address] [facility] [id number] [address] [place] [phone] May, Depression with anxiety 300. 4 [place] [address] [address] [place] [id number] [address] [place] [phone] May, [facility] [address] [place] [id number] [address] [place] [address] Apr, [facility] [address] [place] [id number] [address] [place] [address] Apr, [facility] [address] [place] [id number] [address] [place] [address] Apr, Depression, major, recurrent , mild 296.31 [facility] [address] [place] [id number] [address] [place] [address] Apr, Depression, major, recurrent , mild 296.31 [place] [address] [address] [place] [id number] [address] [place] [address] Apr, Cervicalgia 723.1 ; Lumbago 724.2 ; Anxiety state, unspecified 300.00 ; Nausea 787.02 ; 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 ; Recurrent UTI (urinary tract infection) 599.0 and Knee pain, bilateral 719.46 [place] [address] [address] [place] [id number] [address] [place] [address] March, Depression, major, recurrent , mild 296.31 [facility] [address] [place] [id number] [address] [place] [address] March, [facility] [address] [place] [id number] [address] [place] [address] March, [facility] [address] [place] [id number] [address] [place] [address] March, Lumbago 724.2 ; Insomnia, un specified 780.52 ; Depressive disorder, not elsewhere classified 311 ; 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 ; Anxiety 300.00 ; Allergic rhinitis 477.9 and GERD (gastroesophageal reflux disease) 530.81 [facility] [address] [place] [id number] [address] [place] [phone] Feb, [facility] [address] [id number] [address] [place] [address], [place] [address] Feb, [facility] [address] [id number] [address] [place] [address], [place] [address] Jan, [facility] [address] [id number] [address] [place] [address], [place] [address] Jan, [facility] [address] [id number] [address] [place] [address], [place] [address] Jan, [facility] [address] [id number] [address] [place] [address], [place] [address] Jan, [facility] [address] [id number] [address] [place] [address], [place] [address] Dec, [facility] [address] [id number] [address] [place] [address], [place] [address] Dec, [facility] [address] [id number] [address] [place] [address], [place] [address] Dec, [facility] [address] [id number] [address] [place] [address], [place] [address] Dec, [facility] [address] [id number] [address] [place] [address], [place] [address] Dec, [facility] [address] [id number] [address] [place] [address], [place] [address] Dec, [facility] [address] [id number] [address] [place] [address], [place] [address] Dec, [facility] [address] [id number] [address] [place] [address], [place] [address] Nov, [facility] [address] [id number] [address] [place] [address], [place] [address] Nov, [facility] [address] [id number] [address] [place] [address], [place] [address] Nov, [facility] [address] [id number] [address] [place] [address] [address] Nov, [facility] [address] [id number] [address] [place] [address], [place] [address] Nov, [facility] [address] [id number] [address] [place] [address], [place] [address] Nov, [facility] [address] [id number] [address] [place] [address], [place] [address] Nov, [facility] [address] [id number] [address] [place] [address], [place] [address] Nov, [facility] [address] [id number] [address] [place] [address], [place] [address] Nov, [facility] [address] [id number] [address] [place] [address], [place] [address] Nov, [facility] [address] [id number] [address] [place] [address], [place] [address] Nov, [facility] [address] [id number] [address] [place] [address], [place] [address] Nov, [facility] [address] [id number] [address] [place] [address], [place] [address] Nov, [facility] [address] [id number] [address] [place] [address], [place] [address] Nov, [facility] [address] [id number] [address] [place] [address], [place] [address] Nov, [facility] [address] [id number] [address] [place] [address], [place] [address] Nov, [facility] [address] [id number] [address] [place] [address], [place] [address] Nov, [facility] [address] [id number] [address] [place] [address], [place] [address] Nov, [facility] [address] [id number] [address] [place] [address], [place] [address] Nov, [facility] [address] [id number] [address] [place] [address], [place] [address] Nov, [facility] [address] [id number] [address] [place] [address], [place] [address] Nov, [facility] [address] [id number] [address] [place] [address], [place] [address] Nov, [facility] [address] [id number] [address] [place] [address], [place] [address] Nov, [facility] [address] [id number] [address] [place] [address], [place] [address] Nov, [facility] [address] [id number] [address] [place] [address], [place] [address] Nov, [facility] [address] [id number] [address] [place] [address], [place] [address] Nov, [facility] [address] [id number] [address] [place] [address], [place] [address] Nov, [facility] [address] [id number] [address] [place] [address], [place] [address] Nov, [facility] [address] [id number] [address] [place] [address], [place] [address] Nov, [facility] [address] [id number] [address] [place] [address], [place] [address] Oct, [facility] [address] [id number] [address] [place] [address], [place] [address] Oct, [facility] [address] [id number] [address] [place] [address], [place] [address] Oct, [facility] [address] [id number] [address] [place] [address], [place] [address] Oct, [facility] [address] [id number] [address] [place] [address], [place] [address] Oct, [facility] [address] [id number] [address] [place] [address], [place] [address] Oct, [facility] [address] [id number] [address] [place] [address], [place] [address] Oct, [facility] [address] [id number] [address] [place] [address], [place] [address] Oct, [facility] [address] [id number] [address] [place] [address], [place] [address] Oct, [facility] [address] [id number] [address] [place] [address], [place] [address] Oct, [facility] [address] [id number] [address] [place] [address], [place] [address] Oct, [facility] [address] [id number] [address] [place] [address], [place] [address] Oct, [facility] [address] [id number] [address] [place] [address], [place] [address] Oct, [facility] [address] [id number] [address] [place] [address], [place] [address] Oct, [facility] [address] [id number] [address] [place] [address], [place] [address] Oct, [facility] [address] [id number] [address] [place] [address], [place] [address] Oct, [facility] [address] [id number] [address] [place] [address], [place] [address] Oct, [facility] [address] [id number] [address] [place] [address], [place] [address] Oct, [facility] [address] [id number] [address] [place] [address], [place] [address] Oct, [facility] [address] [id number] [address] [place] [address], [place] [address] 05 Oct, 2014 [facility] [address] [id number] [address] [place] [address], [place] [address] 05 Oct, 2014 [facility] [address] [id number] [address] [place] [address], [place] [address] Oct, [facility] [address] [id number] [address] [place] [address], [place] [address] Oct, [facility] [address] [id number] [address] [place] [address], [place] [address] Sep, [facility] [address] [id number] [address] [place] [address], [place] [address] Sep, [facility] [address] [id number] [address] [place] [address], [place] [address] Sep, [facility] [address] [id number] [address] [place] [address], [place] [address] Sep, [facility] [address] [id number] [address] [place] [address], [place] [address] Sep, [facility] [address] [id number] [address] [place] [address], [place] [address] Sep, [facility] [address] [id number] [address] [place] [address], [place] [address] Sep, [facility] [address] [id number] [address] [place] [address], [place] [address] Sep, [facility] [address] [id number] [address] [place] [address], [place] [address] Sep, [facility] [address] [id number] [address] [place] [address], [place] [address] Sep, [facility] [address] [id number] [address] [place] [address], [place] [address] Sep, [facility] [address] [id number] [address] [place] [address], [place] [address] Sep, [facility] [address] [id number] [address] [place] [address], [place] [address] Sep, [facility] [address] [id number] [address] [place] [address], [place] [address] Sep, [facility] [address] [id number] [address] [place] [address], [place] [address] Sep, [facility] [address] [id number] [address] [place] [address], [place] [address] Sep, [facility] [address] [id number] [address] [place] [address], [place] [address] Sep, [facility] [address] [id number] [address] [place] [address], [place] [address] Sep, [facility] [address] [id number] [address] [place] [address], [place] [address] Sep, [facility] [address] [id number] [address] [place] [address], [place] [address] Sep, [facility] [address] [id number] [address] [place] [address], [place] [address] Sep, [facility] [address] [id number] [address] [place] [address], [place] [address] Sep, [facility] [address] [id number] [address] [place] [address], [place] [address] Sep, [facility] [address] [id number] [address] [place] [address], [place] [address] Sep, [facility] [address] [id number] [address] [place] [address], [place] [address] Sep, [facility] [address] [id number] [address] [place] [address], [place] [address] Sep, [facility] [address] [id number] [address] [place] [address], [place] [address] Sep, [facility] [address] [id number] [address] [place] [address], [place] [address] Sep, [facility] [address] [id number] [address] [place] [address], [place] [address] Aug, [facility] [address] [id number] [address] [place] [address], [place] [address] Aug, [facility] [address] [id number] [address] [place] [address], [place] [address] Aug, [facility] [address] [id number] [address] [place] [address], [place] [address] Aug, [facility] [address] [id number] [address] [place] [address], [place] [address] Aug, [facility] [address] [id number] [address] [place] [address], [place] [address] Aug, [facility] [address] [id number] [address] [place] [address], [place] [address] Aug, [facility] [address] [id number] [address] [place] [address], [place] [address] Aug, [facility] [address] [id number] [address] [place] [address], [place] [address] Aug, [facility] [address] [id number] [address] [place] [address], [place] [address] Aug, [facility] [address] [id number] [address] [place] [address], [place] [address] Aug, [facility] [address] [id number] [address] [place] [id number] Aug, [facility] [address] [id number] [address] [place] [id number] Aug, [facility] [address] [id number] [address] [place] [id number] Aug, [facility] [address] [id number] [address] [place] [address], [place] [address] Aug, [facility] [address] [id number] [address] [place] [address], [place] [id number] Aug, [facility] [address] [id number] [address] [place] [id number] Aug, [facility] [address] [id number] [address] [place] [id number] 17 Aug, 2013 [facility] [address] [id number] [address] [place] [address], [place] [address] 14 Aug, 2013 [facility] [address] [id number] [address] [place] [id number] 14 Aug, 2013 [facility] [address] [id number] [address] [place] [address], [place] [address] 09 Aug, 2013 [facility] [address] [id number] [address] [place] [id number] 09 Aug, 2013 [facility] [address] [id number] [address] [place] [address], [place] [address] Aug, 2013 [facility] [address] [id number] [address] [place] [address], [place] [address] Aug, 2013 [facility] [address] [id number] [address] [place] [id number] 08 Aug, 2013 [facility] [address] [id number] [address] [place] [id number] 07 Aug, 2013 [facility] [address] [id number] [address] [place] [id number] Aug, 2013 [facility] [address] [id number] [address] [place] [id number] Aug, 2013 [facility] [address] [id number] [address] [place] [id number] 07 Aug, 2013 [facility] [address] [id number] [address] [place] [id number] 30 Jul, 2013 [facility] [address] [id number] [address] [place] [id number] 30 Jul, 2013 [facility] [address] [id number] [address] [place] [id number] 29 Jul, 2013 [facility] [address] [id number] [address] [place] [id number] 29 Jul, 2013 [facility] [address] [id number] [address] [address] 19 Jul, 2013 [facility] [address] [id number] [facility] [address] 19 Jul, 2013 [facility] [address] [id number] [address] [address] 18 Jul, 2013 [facility] [address] [id number] [address] [address] 18 Jul, 2013 [facility] [address] [id number] [address] [address] 17 Jul, 2013 [facility] [address] [id number] [address] [place] [address], [place] [address] 17 Jul, 2013 [facility] [address] [id number] [address] [place] [address], [place] [address] 10 Jul, 2013 [facility] [address] [id number] [address] [place] [address], [place] [address] 10 Jul, 2013 [facility] [address] [id number] [address] [place] [address], [place] [address] Jun, [facility] [address] [id number] [address] [place] [address], [place] [address] Jun, [facility] [address] [id number] [address] [place] [address], [place] [address] Jun, [facility] [address] [id number] [address] [place] [address], [place] [address] Jun, [facility] [address] [id number] [address] [place] [address], [place] [address] Jun, [facility] [address] [id number] [address] [place] [address], [place] [address] Jun, [facility] [address] [id number] [address] [place] [address], [place] [address] Jun, [facility] [address] [id number] [address] [place] [id number] [address] Jun, [facility] [address] [id number] [address] [place] [id number] Jun, [facility] [address] [id number] [address] [place] [id number] Jun, [facility] [address] [id number] [address] [place] [phone] Jun, [facility] [address] [id number] [address] [place] [phone] Jun, [facility] [address] [id number] [address] [place] [phone] May, [facility] [address] [id number] [address] [place] [phone] May, [facility] [address] [id number] [address] [place] [phone] May, IMMUNIZATIONS No Known Immunizations SOCIAL HISTORY Never Assessed REASON FOR VISIT PLAN OF CARE VITAL SIGNS Height 67 in 2014-10-08 Weight 248.61 lbs 2014-10-08 Temperature 97.8 degrees Fahrenheit 2014-10-08 Heart Rate 84 bpm 2014-10-08 Respiratory Rate 20 2014-10-08 Blood pressure systolic 120 mmHg 2014-10-08 Blood pressure diastolic 78 mmHg 2014-10-08 MEDICATIONS Unknown Medications RESULTS No Results PROCEDURES [...]
--- OUTSIDE RECORDS SUMMARY | 2020-05-03 14:27 | XMS REPORT ---
Author Author Tracee Ford Organization [facility] Address [address] [place] [address] Care Team Providers Care Voltage Regulator Assembler Name Role Phone REGINE Ford Unavailable PROBLEMS Type Condition ICD9-CM Code VRA08-SN Code Onset Dates Condition S tatus SNOMED Code Problem Primary insomnia F51.01 Active 397 2004 Problem Breast pain N64.4 Active 15717719 Problem History of renal transplant Z94.0 Ac tive 766900368 Problem Violation of controlled substance agreement Z91.14 Active 954044751 Problem Mild intermittent asthma without complication J45. 20 Active 156357682 Problem Screening breast examination Z12.39 A ctive 604036827 Problem Irritable bowel syndrome without diarrhea K58.9 Active 34240693 Problem Irritable bowel syndrome with diarrhea K58.0 Active [id number] ALLERGIES No Information ENCOUNTERS Encounter Location Date Diagnosis [facility] [id number] [place] [address] [id number] March, Dental examination Z01.20 [facility] [address] [id number] [address] [place] [address] [id number] Feb, Caries K02.9 [facility] [address] [id number] [address] [place] [address] [id number] Feb, Caries K02.9 [facility] [address] [id number] [address] [place] [address] [id number] Jan, [facility] [address] [id number] [address] [place] [address] [id number] Jan, Caries K02.9 [facility] [address] [id number] [address] [place] [address] [id number] Dec, [facility] [address] [id number] [address] [place] [address] [id number] Dec, 2018 Dental examination Z01.20 an d Caries K02.9 [place] [address] [id number] 14 Sep, 2016 Dental examination Z01.20 [place] [address] [place] [id number] [address] [place] [id number] 08 Jan, 2016 Nausea R11.0 ; Irritable bow el syndrome without diarrhea K58.9 and History of renal transplant Z94.0 [place] [address] [id number] 2015 [place] [address] [id number] 11 Dec, 2015 Breast pain N64.4 ; Screenin g breast examination Z12.39 and Mild intermittent asthma without complication J45.20 [place] [address] [id number] 10 Dec, 2015 [place] [address] [id number] 09 Dec, 2015 Kidney transplant status Z94 .0 ; Personal history of immunosupression therapy Z92.25 ; Recurrent UTI N39.0 and Encounter for screening, unspecified Z13.9 [place] [address] [place] [id number] [address] [place] [id number] Oct, [place] [address] [place] [id number] [address] [place] [id number] Oct, [place] [address] [place] [id number] [address] [place] [phone] Oct, [place] [address] [id number] Oct, Hiatal hernia K44.9 and Atyp ical chest pain R07.89 [place] [address] [place] [id number] [address] [place] [id number] Oct, [place] [address] [id number] [address] [place] [id number] Sep, Kidney replaced by transplan t V42.0 and Bilateral low back pain with sciatica, sciatica laterality unspecified M54.40 [facility] [address] [id number] [address] [place] [phone] Sep, [facility] [address] [id number] [address] [place] [phone] Sep, Kidney replaced by transplan t V42.0 ; Bilateral low back pain with sciatica, sciatica laterality unspecified M54.40 ; Anxiety F41.9 and Primary insomnia F51.01 [facility] [address] [id number] [address] [place] [id number] Aug, [facility] [address] [id number] [address] [place] [id number] Aug, [facility] [address] [id number] [address] [place] [id number] Aug, Kidney transplant status Z94 .0 ; Personal history of immunosupression therapy Z92.25 ; Recurrent urinary tract infection N39.0 and Screening Z13.9 [facility] [address] [id number] [address] [place] [phone] Aug, [facility] [address] [id number] [address] [place] [phone] Aug, Encounter for aftercare foll owing kidney transplant Z48.22 ; Chronic radicular pain of lower back M54.16 and PND (post-nasal drip) R09.82 [facility] [address] [id number] [address] [place] [id number] Jul, [facility] [address] [id number] [address] [place] [id number] Jul, [facility] [address] [id number] [address] [place] [id number] Jul, [facility] [address] [id number] [address] [place] [address] Jul, Kidney replaced by transplan t V42.0 ; Depressive disorder, not elsewhere classified 311 ; Anxiety state, unspecified 300.00 ; Insomnia, unspecified 780.52 ; Irritable bowel syndrome 564.1 ; Chronic lumbar pain 724.2 and GERD (gastroesophageal reflux disease) 530.81 [facility] [address] [id number] [address] [place] [id number] Jul, [facility] [address] [id number] [address] [place] [id number] Jun, [facility] [address] [id number] [address] [place] [id number] Jun, [facility] [address] [facility] [id number] [address] [place] [phone] Jun, [facility] [address] [facility] [id number] [address] [place] [phone] Jun, Kidney replaced by transplan t V42.0 [facility] [address] [facility] [id number] [address] [place] [phone] May, [facility] [address] [facility] [id number] [address] [place] [id number] May, Depression with anxiety 300. 4 and Skin infection 686.9 [facility] [address] [facility] [id number] [address] [place] [phone] May, [facility] [address] [id number] [address] [place] [phone] May, Kidney replaced by transplan t V42.0 ; Recurrent UTI (urinary tract infection) 599.0 and Absence of menstruation 626.0 [facility] [address] [facility] [id number] [address] [place] [phone] May, [facility] [address] [facility] [id number] [address] [place] [id number] May, Depression with anxiety 300. 4 [place] [address] [place] [id number] [address] [place] [id number] May, [facility] [address] [place] [id number] [address] [place] [id number] Apr, [facility] [address] [place] [id number] [address] [place] [id number] Apr, [facility] [address] [place] [id number] [address] [place] [id number] Apr, Depression, major, recurrent , mild 296.31 [facility] [address] [place] [id number] [address] [place] [id number] Apr, Depression, major, recurrent , mild 296.31 [place] [address] [place] [id number] [address] [place] [id number] Apr, Cervicalgia 723.1 ; Lumbago 724.2 ; Anxiety state, unspecified 300.00 ; Nausea 787.02 ; 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 ; Recurrent UTI (urinary tract infection) 599.0 and Knee pain, bilateral 719.46 [place] [address] [place] [id number] [address] [place] [id number] March, Depression, major, recurrent , mild 296.31 [facility] [address] [place] [id number] [address] [place] [phone] March, [facility] [address] [place] [id number] [address] [place] [id number] March, [facility] [address] [place] [id number] [address] [place] [address] March, Lumbago 724.2 ; Insomnia, un specified 780.52 ; Depressive disorder, not elsewhere classified 311 ; 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 ; Anxiety 300.00 ; Allergic rhinitis 477.9 and GERD (gastroesophageal reflux disease) 530.81 [facility] [address] [place] [id number] [address] [place] [phone] Feb, [facility] [address] [id number] [address] [place] [address], [place] [address] Feb, [facility] [address] [id number] [address] [place] [address], [place] [address] Jan, [facility] [address] [id number] [address] [place] [address], [place] [address] Jan, [facility] [address] [id number] [address] [place] [address], [place] [address] Jan, [facility] [address] [id number] [address] [place] [address], [place] [address] Jan, [facility] [address] [id number] [address] [place] [address], [place] [address] Dec, [facility] [address] [id number] [address] [place] [address], [place] [address] Dec, [facility] [address] [id number] [address] [place] [address], [place] [address] Dec, [facility] [address] [id number] [address] [place] [address], [place] [address] Dec, [facility] [address] [id number] [address] [place] [address], [place] [address] Dec, [facility] [address] [id number] [address] [place] [address], [place] [address] Dec, [facility] [address] [id number] [address] [place] [address], [place] [address] Dec, [facility] [address] [id number] [address] [place] [address], [place] [address] Nov, [facility] [address] [id number] [address] [place] [address], [place] [address] Nov, [facility] [address] [id number] [address] [place] [address], [place] [address] Nov, [facility] [address] [id number] [address] [place] [address] [address] Nov, [facility] [address] [id number] [address] [place] [address], [place] [address] Nov, [facility] [address] [id number] [address] [place] [address], [place] [address] Nov, [facility] [address] [id number] [address] [place] [address], [place] [address] Nov, [facility] [address] [id number] [address] [place] [address], [place] [id number] Nov, [facility] [address] [id number] [address] [place] [address], [place] [address] Nov, [facility] [address] [id number] [address] [place] [address], [place] [address] Nov, [facility] [address] [id number] [address] [place] [address], [place] [address] Nov, [facility] [address] [id number] [address] [place] [address], [place] [address] Nov, [facility] [address] [id number] [address] [place] [address], [place] [address] Nov, [facility] [address] [id number] [address] [place] [address], [place] [address] Nov, [facility] [address] [id number] [address] [place] [address], [place] [address] Nov, [facility] [address] [id number] [address] [place] [address], [place] [address] Nov, [facility] [address] [id number] [address] [place] [address], [place] [address] Nov, [facility] [address] [id number] [address] [place] [address], [place] [address] Nov, [facility] [address] [id number] [address] [place] [address], [place] [address] Nov, [facility] [address] [id number] [address] [place] [address], [place] [address] Nov, [facility] [address] [id number] [address] [place] [address], [place] [address] Nov, [facility] [address] [id number] [address] [place] [address], [place] [address] Nov, [facility] [address] [id number] [address] [place] [address], [place] [address] Nov, [facility] [address] [id number] [address] [place] [address], [place] [address] Nov, [facility] [address] [id number] [address] [place] [address], [place] [address] Nov, [facility] [address] [id number] [address] [place] [address], [place] [address] Nov, [facility] [address] [id number] [address] [place] [address], [place] [address] Nov, [facility] [address] [id number] [address] [place] [address], [place] [address] Nov, [facility] [address] [id number] [address] [place] [address], [place] [address] Nov, [facility] [address] [id number] [address] [place] [address], [place] [address] Oct, [facility] [address] [id number] [address] [place] [address], [place] [address] Oct, [facility] [address] [id number] [address] [place] [address], [place] [address] Oct, [facility] [address] [id number] [address] [place] [address], [place] [address] Oct, [facility] [address] [id number] [address] [place] [address], [place] [address] Oct, [facility] [address] [id number] [address] [place] [address], [place] [address] Oct, [facility] [address] [id number] [address] [place] [address], [place] [address] Oct, [facility] [address] [id number] [address] [place] [address], [place] [address] Oct, [facility] [address] [id number] [address] [place] [address], [place] [address] Oct, [facility] [address] [id number] [address] [place] [address], [place] [address] Oct, [facility] [address] [id number] [address] [place] [address], [place] [address] Oct, [facility] [address] [id number] [address] [place] [address], [place] [address] Oct, [facility] [address] [id number] [address] [place] [address], [place] [address] Oct, [facility] [address] [id number] [address] [place] [address], [place] [address] Oct, [facility] [address] [id number] [address] [place] [address], [place] [address] Oct, [facility] [address] [id number] [address] [place] [address], [place] [address] Oct, [facility] [address] [id number] [address] [place] [address], [place] [address] Oct, [facility] [address] [id number] [address] [place] [address], [place] [address] Oct, [facility] [address] [id number] [address] [place] [address], [place] [address] Oct, [facility] [address] [id number] [address] [place] [address], [place] [address] 05 Oct, 2014 [facility] [address] [id number] [address] [place] [address], [place] [address] 05 Oct, 2014 [facility] [address] [id number] [address] [place] [address], [place] [address] Oct, [facility] [address] [id number] [address] [place] [address], [place] [address] Oct, [facility] [address] [id number] [address] [place] [address], [place] [address] Sep, [facility] [address] [id number] [address] [place] [address], [place] [address] Sep, [facility] [address] [id number] [address] [place] [address], [place] [address] Sep, [facility] [address] [id number] [address] [place] [address], [place] [address] Sep, [facility] [address] [id number] [address] [place] [address], [place] [address] Sep, [facility] [address] [id number] [address] [place] [address], [place] [address] Sep, [facility] [address] [id number] [address] [place] [address], [place] [address] Sep, [facility] [address] [id number] [address] [place] [address], [place] [address] Sep, [facility] [address] [id number] [address] [place] [address], [place] [address] Sep, [facility] [address] [id number] [address] [place] [address], [place] [address] Sep, [facility] [address] [id number] [address] [place] [address], [place] [address] Sep, [facility] [address] [id number] [address] [place] [address], [place] [address] Sep, [facility] [address] [id number] [address] [place] [address], [place] [address] Sep, [facility] [address] [id number] [address] [place] [address], [place] [address] Sep, [facility] [address] [id number] [address] [place] [address], [place] [address] Sep, [facility] [address] [id number] [address] [place] [address], [place] [address] Sep, [facility] [address] [id number] [address] [place] [address], [place] [address] Sep, [facility] [address] [id number] [address] [place] [address], [place] [address] Sep, [facility] [address] [id number] [address] [place] [address], [place] [address] Sep, [facility] [address] [id number] [address] [place] [address], [place] [address] Sep, [facility] [address] [id number] [address] [place] [address], [place] [address] Sep, [facility] [address] [id number] [address] [place] [address], [place] [address] Sep, [facility] [address] [id number] [address] [place] [address], [place] [address] Sep, [facility] [address] [id number] [address] [place] [address], [place] [address] Sep, [facility] [address] [id number] [address] [place] [address], [place] [address] Sep, [facility] [address] [id number] [address] [place] [address], [place] [address] Sep, [facility] [address] [id number] [address] [place] [address], [place] [address] Sep, [facility] [address] [id number] [address] [place] [address], [place] [address] Sep, [facility] [address] [id number] [address] [place] [address], [place] [address] Aug, [facility] [address] [id number] [address] [place] [address], [place] [address] Aug, [facility] [address] [id number] [address] [place] [address], [place] [address] Aug, [facility] [address] [id number] [address] [place] [address], [place] [address] Aug, [facility] [address] [id number] [address] [place] [address], [place] [address] Aug, [facility] [address] [id number] [address] [place] [address], [place] [id number] Aug, [facility] [address] [id number] [address] [place] [address], [place] [id number] Aug, [facility] [address] [id number] [address] [place] [address], [place] [id number] Aug, [facility] [address] [id number] [address] [place] [address], [place] [id number] Aug, [facility] [address] [id number] [address] [place] [address], [place] [id number] Aug, [facility] [address] [id number] [address] [place] [address], [place] [id number] Aug, [facility] [address] [id number] [address] [place] [id number] Aug, [facility] [address] [id number] [address] [place] [id number] Aug, [facility] [address] [id number] [address] [place] [id number] Aug, [facility] [address] [id number] [address] [place] [address], [place] [id number] Aug, [facility] [address] [id number] [address] [place] [address], [place] [id number] Aug, [facility] [address] [id number] [address] [place] [id number] Aug, [facility] [address] [id number] [address] [place] [id number] 17 Aug, 2013 [facility] [address] [id number] [address] [place] [address], [place] [id number] 14 Aug, 2013 [facility] [address] [id number] [address] [place] [id number] 14 Aug, 2013 [facility] [address] [id number] [address] [place] [address], [place] [id number] 09 Aug, 2013 [facility] [address] [id number] [address] [place] [id number] 09 Aug, 2013 [facility] [address] [id number] [address] [place] [address], [place] [id number] Aug, 2013 [facility] [address] [id number] [address] [place] [address], [place] [id number] Aug, 2013 [facility] [address] [id number] [address] [place] [id number] 08 Aug, 2013 [facility] [address] [id number] [address] [place] [id number] 07 Aug, 2013 [facility] [address] [id number] [address] [place] [id number] Aug, 2013 [facility] [address] [id number] [address] [place] [id number] Aug, 2013 [facility] [address] [id number] [address] [place] [id number] 07 Aug, 2013 [facility] [address] [id number] [address] [place] [id number] 30 Jul, 2013 [facility] [address] [id number] [address] [place] [id number] 30 Jul, 2013 [facility] [address] [id number] [address] [place] [id number] 29 Jul, 2013 [facility] [address] [id number] [address] [place] [id number] 29 Jul, 2013 [facility] [address] [id number] [address] [place] [id number] 19 Jul, 2013 [facility] [address] [id number] [address] [place] [id number] 19 Jul, 2013 [facility] [address] [id number] [address] [place] [id number] 18 Jul, 2013 [facility] [address] [id number] [address] [place] [id number] 18 Jul, 2013 [facility] [address] [id number] [address] [place] [id number] 17 Jul, 2013 [facility] [address] [id number] [address] [place] [address], [place] [id number] 17 Jul, 2013 [facility] [address] [id number] [address] [place] [address], [place] [id number] 10 Jul, 2013 [facility] [address] [id number] [address] [place] [address], [place] [id number] 10 Jul, 2013 [facility] [address] [id number] [address] [place] [address], [place] [id number] Jun, [facility] [address] [id number] [address] [place] [address], [place] [id number] Jun, [facility] [address] [id number] [address] [place] [address], [place] [id number] Jun, [facility] [address] [id number] [address] [place] [address], [place] [id number] Jun, [facility] [address] [id number] [address] [place] [address], [place] [id number] Jun, [facility] [address] [id number] [address] [place] [address], [place] [id number] Jun, [facility] [address] [id number] [address] [place] [address], [place] [id number] Jun, [facility] [address] [id number] [address] [place] [address] [id number] Jun, [facility] [address] [id number] [address] [place] [id number] Jun, [facility] [address] [id number] [address] [place] [id number] Jun, [facility] [address] [id number] [address] [place] [id number] Jun, [facility] [address] [id number] [address] [place] [id number] Jun, [facility] [address] [id number] [address] [place] [id number] May, [facility] [address] [id number] [address] [place] [id number] May, [facility] [address] [facility] [id number] [address] [place] [id number] May, IMMUNIZATIONS No Known Immunizations SOCIAL HISTORY [...]
--- OUTSIDE RECORDS SUMMARY | 2020-05-03 14:27 | XMS REPORT ---
Author Author Tracee AVILA Organization [facility] Address [address] [place] [address] Care Team Providers Care Speech Writer Name Role Phone SARAI AVILA Unavailable PROBLEMS Type Condition ICD9-CM Code ZRO31-SZ Code Onset Dates Condition S tatus SNOMED Code Problem Primary insomnia F51.01 Active 397 2004 Problem Breast pain N64.4 Active 96986275 Problem History of renal transplant Z94.0 Ac tive 927080448 Problem Violation of controlled substance agreement Z91.14 Active 956519164 Problem Mild intermittent asthma without complication J45. 20 Active 321006978 Problem Screening breast examination Z12.39 A ctive 322610737 Problem Irritable bowel syndrome without diarrhea K58.9 Active 47642384 Problem Irritable bowel syndrome with diarrhea K58.0 Active 088073186 ALLERGIES No Information ENCOUNTERS Encounter Location Date Diagnosis [facility] [id number] [place] [address] [id number] March, Dental examination Z01.20 [facility] [address] [id number] [address] [place] [address] [id number] Feb, Caries K02.9 [facility] [address] [id number] [address] [place] [address] [id number] Feb, Caries K02.9 [facility] [address] [id number] [address] [place] [address] [id number] Jan, [facility] [address] [id number] [address] [place] [address] [id number] Jan, Caries K02.9 [facility] [address] [id number] [address] [place] [address] [id number] Dec, [facility] [address] [id number] [address] [place] [address] [id number] Dec, 2018 Dental examination Z01.20 an d Caries K02.9 [place] [address] [id number] 14 Sep, 2016 Dental examination Z01.20 [place] [address] [place] [id number] [address] [place] [id number] 08 Jan, 2016 Nausea R11.0 ; Irritable bow el syndrome without diarrhea K58.9 and History of renal transplant Z94.0 [place] [address] [id number] 2015 [place] [address] [id number] 11 Dec, 2015 Breast pain N64.4 ; Screenin g breast examination Z12.39 and Mild intermittent asthma without complication J45.20 [place] [address] [id number] 10 Dec, 2015 [place] [address] [address] 09 Dec, 2015 Kidney transplant status Z94 .0 ; Personal history of immunosupression therapy Z92.25 ; Recurrent UTI N39.0 and Encounter for screening, unspecified Z13.9 [place] [address] [place] [id number] [address] [place] [id number] Oct, [place] [address] [place] [id number] [address] [place] [phone] Oct, [place] [address] [place] [id number] [address] [place] [id number] Oct, [place] [address] [address] Oct, Hiatal hernia K44.9 and Atyp ical chest pain R07.89 [place] [address] [place] [id number] [address] [place] [id number] Oct, [place] [address] [id number] [address] [place] [address] Sep, Kidney replaced by transplan t V42.0 and Bilateral low back pain with sciatica, sciatica laterality unspecified M54.40 [facility] [address] [id number] [address] [place] [address] Sep, [facility] [address] [id number] [address] [place] [id number] Sep, Kidney replaced by transplan t V42.0 ; Bilateral low back pain with sciatica, sciatica laterality unspecified M54.40 ; Anxiety F41.9 and Primary insomnia F51.01 [facility] [address] [id number] [address] [place] [id number] Aug, [facility] [address] [id number] [address] [place] [phone] Aug, [facility] [address] [id number] [address] [place] [phone] Aug, Kidney transplant status Z94 .0 ; Personal history of immunosupression therapy Z92.25 ; Recurrent urinary tract infection N39.0 and Screening Z13.9 [facility] [address] [id number] [address] [place] [id number] Aug, [facility] [address] [id number] [address] [place] [phone] Aug, Encounter for aftercare foll owing kidney transplant Z48.22 ; Chronic radicular pain of lower back M54.16 and PND (post-nasal drip) R09.82 [facility] [address] [id number] [address] [place] [phone] Jul, [facility] [address] [id number] [address] [place] [phone] Jul, [facility] [address] [id number] [address] [place] [id number] Jul, [facility] [address] [id number] [address] [place] [id number] Jul, Kidney replaced by transplan t V42.0 ; Depressive disorder, not elsewhere classified 311 ; Anxiety state, unspecified 300.00 ; Insomnia, unspecified 780.52 ; Irritable bowel syndrome 564.1 ; Chronic lumbar pain 724.2 and GERD (gastroesophageal reflux disease) 530.81 [facility] [address] [id number] [address] [place] [phone] Jul, [facility] [address] [id number] [address] [place] [id number] Jun, [facility] [address] [id number] [address] [place] [phone] Jun, [facility] [address] [facility] [id number] [address] [place] [phone] Jun, [facility] [address] [facility] [id number] [address] [place] [phone] Jun, Kidney replaced by transplan t V42.0 [facility] [address] [facility] [id number] [address] [place] [phone] May, [facility] [address] [facility] [id number] [address] [place] [phone] May, Depression with anxiety 300. 4 and Skin infection 686.9 [facility] [address] [facility] [id number] [address] [place] [phone] May, [facility] [address] [id number] [address] [place] [phone] May, Kidney replaced by transplan t V42.0 ; Recurrent UTI (urinary tract infection) 599.0 and Absence of menstruation 626.0 [facility] [address] [facility] [id number] [address] [place] [phone] May, [facility] [address] [facility] [id number] [address] [place] [phone] May, Depression with anxiety 300. 4 [place] [address] [place] [id number] [address] [place] [phone] May, [facility] [address] [place] [id number] [address] [place] [id number] Apr, [facility] [address] [place] [id number] [address] [place] [id number] Apr, [facility] [address] [place] [id number] [address] [place] [id number] Apr, Depression, major, recurrent , mild 296.31 [facility] [address] [place] [id number] [address] [place] [address] Apr, Depression, major, recurrent , mild 296.31 [place] [address] [place] [id number] [address] [place] [id number] Apr, Cervicalgia 723.1 ; Lumbago 724.2 ; Anxiety state, unspecified 300.00 ; Nausea 787.02 ; 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 ; Recurrent UTI (urinary tract infection) 599.0 and Knee pain, bilateral 719.46 [place] [address] [place] [id number] [address] [place] [address] March, Depression, major, recurrent , mild 296.31 [facility] [address] [place] [id number] [address] [place] [phone] March, [facility] [address] [place] [id number] [address] [place] [id number] March, [facility] [address] [place] [id number] [address] [place] [phone] March, Lumbago 724.2 ; Insomnia, un specified 780.52 ; Depressive disorder, not elsewhere classified 311 ; 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 ; Anxiety 300.00 ; Allergic rhinitis 477.9 and GERD (gastroesophageal reflux disease) 530.81 [facility] [address] [place] [id number] [address] [place] [phone] Feb, [facility] [address] [id number] [address] [place] [address], [place] [address] Feb, [facility] [address] [id number] [address] [place] [address], [place] [address] Jan, [facility] [address] [id number] [address] [place] [address], [place] [address] Jan, [facility] [address] [id number] [address] [place] [address], [place] [address] Jan, [facility] [address] [id number] [address] [place] [address], [place] [address] Jan, [facility] [address] [id number] [address] [place] [address], [place] [address] Dec, [facility] [address] [id number] [address] [place] [address], [place] [address] Dec, [facility] [address] [id number] [address] [place] [address], [place] [address] Dec, [facility] [address] [id number] [address] [place] [address], [place] [address] Dec, [facility] [address] [id number] [address] [place] [address], [place] [address] Dec, [facility] [address] [id number] [address] [place] [address], [place] [address] Dec, [facility] [address] [id number] [address] [place] [address], [place] [address] Dec, [facility] [address] [id number] [address] [place] [address], [place] [address] Nov, [facility] [address] [id number] [address] [place] [address], [place] [address] Nov, [facility] [address] [id number] [address] [place] [address], [place] [address] Nov, [facility] [address] [id number] [address] [place], [place] [address] [address] Nov, [facility] [address] [id number] [address] [place] [address], [place] [address] Nov, [facility] [address] [id number] [address] [place] [address], [place] [address] Nov, [facility] [address] [id number] [address] [place] [address], [place] [address] Nov, [facility] [address] [id number] [address] [place] [address], [place] [address] Nov, [facility] [address] [id number] [address] [place] [address], [place] [address] Nov, [facility] [address] [id number] [address] [place] [address], [place] [address] Nov, [facility] [address] [id number] [address] [place] [address], [place] [address] Nov, [facility] [address] [id number] [address] [place] [address], [place] [address] Nov, [facility] [address] [id number] [address] [place] [address], [place] [address] Nov, [facility] [address] [id number] [address] [place] [address], [place] [address] Nov, [facility] [address] [id number] [address] [place] [address], [place] [address] Nov, [facility] [address] [id number] [address] [place] [address], [place] [address] Nov, [facility] [address] [id number] [address] [place] [address], [place] [address] Nov, [facility] [address] [id number] [address] [place] [address], [place] [address] Nov, [facility] [address] [id number] [address] [place] [address], [place] [address] Nov, [facility] [address] [id number] [address] [place] [address], [place] [address] Nov, [facility] [address] [id number] [address] [place] [address], [place] [address] Nov, [facility] [address] [id number] [address] [place] [address], [place] [address] Nov, [facility] [address] [id number] [address] [place] [address], [place] [address] Nov, [facility] [address] [id number] [address] [place] [address], [place] [address] Nov, [facility] [address] [id number] [address] [place] [address], [place] [address] Nov, [facility] [address] [id number] [address] [place] [address], [place] [address] Nov, [facility] [address] [id number] [address] [place] [address], [place] [address] Nov, [facility] [address] [id number] [address] [place] [address], [place] [address] Nov, [facility] [address] [id number] [address] [place] [address], [place] [address] Nov, [facility] [address] [id number] [address] [place] [address], [place] [address] Oct, [facility] [address] [id number] [address] [place] [address], [place] [address] Oct, [facility] [address] [id number] [address] [place] [address], [place] [address] Oct, [facility] [address] [id number] [address] [place] [address], [place] [address] Oct, [facility] [address] [id number] [address] [place] [address], [place] [address] Oct, [facility] [address] [id number] [address] [place] [address], [place] [address] Oct, [facility] [address] [id number] [address] [place] [address], [place] [address] Oct, [facility] [address] [id number] [address] [place] [address], [place] [address] Oct, [facility] [address] [id number] [address] [place] [address], [place] [address] Oct, [facility] [address] [id number] [address] [place] [address], [place] [address] Oct, [facility] [address] [id number] [address] [place] [address], [place] [address] Oct, [facility] [address] [id number] [address] [place] [address], [place] [address] Oct, [facility] [address] [id number] [address] [place] [address], [place] [address] Oct, [facility] [address] [id number] [address] [place] [address], [place] [address] Oct, [facility] [address] [id number] [address] [place] [address], [place] [address] Oct, [facility] [address] [id number] [address] [place] [address], [place] [address] Oct, [facility] [address] [id number] [address] [place] [address], [place] [address] Oct, [facility] [address] [id number] [address] [place] [address], [place] [address] Oct, [facility] [address] [id number] [address] [place] [address], [place] [address] Oct, [facility] [address] [id number] [address] [place] [address], [place] [address] 05 Oct, 2014 [facility] [address] [id number] [address] [place] [address], [place] [address] 05 Oct, 2014 [facility] [address] [id number] [address] [place] [address], [place] [address] Oct, [facility] [address] [id number] [address] [place] [address], [place] [address] Oct, [facility] [address] [id number] [address] [place] [address], [place] [address] Sep, [facility] [address] [id number] [address] [place] [address], [place] [address] Sep, [facility] [address] [id number] [address] [place] [address], [place] [address] Sep, [facility] [address] [id number] [address] [place] [address], [place] [address] Sep, [facility] [address] [id number] [address] [place] [address], [place] [address] Sep, [facility] [address] [id number] [address] [place] [address], [place] [address] Sep, [facility] [address] [id number] [address] [place] [address], [place] [address] Sep, [facility] [address] [id number] [address] [place] [address], [place] [address] Sep, [facility] [address] [id number] [address] [place] [address], [place] [address] Sep, [facility] [address] [id number] [address] [place] [address], [place] [address] Sep, [facility] [address] [id number] [address] [place] [address], [place] [address] Sep, [facility] [address] [id number] [address] [place] [address], [place] [address] Sep, [facility] [address] [id number] [address] [place] [address], [place] [address] Sep, [facility] [address] [id number] [address] [place] [address], [place] [address] Sep, [facility] [address] [id number] [address] [place] [address], [place] [address] Sep, [facility] [address] [id number] [address] [place] [address], [place] [address] Sep, [facility] [address] [id number] [address] [place] [address], [place] [address] Sep, [facility] [address] [id number] [address] [place] [address], [place] [address] Sep, [facility] [address] [id number] [address] [place] [address], [place] [address] Sep, [facility] [address] [id number] [address] [place] [address], [place] [address] Sep, [facility] [address] [id number] [address] [place] [address], [place] [address] Sep, [facility] [address] [id number] [address] [place] [address], [place] [address] Sep, [facility] [address] [id number] [address] [place] [address], [place] [address] Sep, [facility] [address] [id number] [address] [place] [address], [place] [address] Sep, [facility] [address] [id number] [address] [place] [address], [place] [address] Sep, [facility] [address] [id number] [address] [place] [address], [place] [address] Sep, [facility] [address] [id number] [address] [place] [address], [place] [address] Sep, [facility] [address] [id number] [address] [place] [address], [place] [address] Sep, [facility] [address] [id number] [address] [place] [address], [place] [address] Aug, [facility] [address] [id number] [address] [place] [address], [place] [address] Aug, [facility] [address] [id number] [address] [place] [address], [place] [address] Aug, [facility] [address] [id number] [address] [place] [address], [place] [address] Aug, [facility] [address] [id number] [address] [place] [address], [place] [address] Aug, [facility] [address] [id number] [address] [place] [address], [place] [address] Aug, [facility] [address] [id number] [address] [place] [address], [place] [address] Aug, [facility] [address] [id number] [address] [place] [address], [place] [address] Aug, [facility] [address] [id number] [address] [place] [address], [place] [id number] Aug, [facility] [address] [id number] [address] [place] [address], [place] [id number] Aug, [facility] [address] [id number] [address] [place] [address], [place] [id number] Aug, [facility] [address] [id number] [address] [place] [id number] Aug, [facility] [address] [id number] [address] [place] [id number] Aug, [facility] [address] [id number] [address] [place] [id number] Aug, [facility] [address] [id number] [address] [place] [address], [place] [id number] Aug, [facility] [address] [id number] [address] [place] [address], [place] [id number] Aug, [facility] [address] [id number] [address] [place] [id number] Aug, [facility] [address] [id number] [address] [place] [id number] 17 Aug, 2013 [facility] [address] [id number] [address] [place] [address], [place] [id number] 14 Aug, 2013 [facility] [address] [id number] [address] [place] [id number] 14 Aug, 2013 [facility] [address] [id number] [address] [place] [address], [place] [id number] 09 Aug, 2013 [facility] [address] [id number] [address] [place] [id number] 09 Aug, 2013 [facility] [address] [id number] [address] [place] [address], [place] [id number] Aug, 2013 [facility] [address] [id number] [address] [place] [address], [place] [address] Aug, 2013 [facility] [address] [id number] [address] [place] [id number] 08 Aug, 2013 [facility] [address] [id number] [address] [place] [id number] 07 Aug, 2013 [facility] [address] [id number] [address] [place] [id number] Aug, 2013 [facility] [address] [id number] [address] [place] [id number] Aug, 2013 [facility] [address] [id number] [address] [place] [id number] 07 Aug, 2013 [facility] [address] [id number] [address] [place] [id number] 30 Jul, 2013 [facility] [address] [id number] [address] [place] [id number] 30 Jul, 2013 [facility] [address] [id number] [address] [place] [id number] 29 Jul, 2013 [facility] [address] [id number] [address] [place] [id number] 29 Jul, 2013 [facility] [address] [id number] [address] [place] [id number] 19 Jul, 2013 [facility] [address] [id number] [facility] [place] [id number] 19 Jul, 2013 [facility] [address] [id number] [facility] [place] [id number] 18 Jul, 2013 [facility] [address] [id number] [address] [place] [id number] 18 Jul, 2013 [facility] [address] [id number] [address] [place] [id number] 17 Jul, 2013 [facility] [address] [id number] [address] [place] [address], [place] [id number] 17 Jul, 2013 [facility] [address] [id number] [address] [place] [address], [place] [id number] 10 Jul, 2013 [facility] [address] [id number] [address] [place] [address], [place] [id number] 10 Jul, 2013 [facility] [address] [id number] [address] [place] [address], [place] [id number] Jun, [facility] [address] [id number] [address] [place] [address], [place] [id number] Jun, [facility] [address] [id number] [address] [place] [address], [place] [id number] Jun, [facility] [address] [id number] [address] [place] [address], [place] [id number] Jun, [facility] [address] [id number] [address] [place] [address], [place] [id number] Jun, [facility] [address] [id number] [address] [place] [address], [place] [id number] Jun, [facility] [address] [id number] [address] [place] [address], [place] [id number] Jun, [facility] [address] [id number] [address] [place], [place] [id number] [address] Jun, [facility] [address] [id number] [address] [place] [id number] Jun, [facility] [address] [id number] [address] [place] [id number] Jun, [facility] [address] [id number] [address] [place] [id number] Jun, [facility] [address] [id number] [address] [place] [id number] Jun, [facility] [address] [id number] [address] [place] [id number] May, [facility] [address] [id number] [address] [place] [id number] May, [facility] [address] [facility] [id number] [address] [place] [id number] May, IMMUNIZATIONS No Known Immunizations SOCIAL HISTORY [...]
--- OUTSIDE RECORDS SUMMARY | 2020-05-03 14:27 | XMS REPORT ---
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 20 Active 173985908 Problem Screening breast examination Z12.39 A ctive 134175820 Problem Irritable bowel syndrome without diarrhea K58.9 Active 47565050 Problem Irritable bowel syndrome with diarrhea K58.0 Active 151490065 ALLERGIES No Information ENCOUNTERS Encounter Location Date Diagnosis [facility] [id number] [place] [address] [id number] March, Dental examination Z01.20 [facility] [address] [id number] [address] [place] [address] [id number] Feb, Caries K02.9 [facility] [address] [id number] [address] [place] [address] [id number] Feb, Caries K02.9 [facility] [address] [id number] [address] [place] [address] [id number] Jan, [facility] [address] [id number] [address] [place] [address] [id number] Jan, Caries K02.9 [facility] [address] [id number] [address] [place] [address] [id number] Dec, [facility] [address] [id number] [address] [place] [address] [id number] Dec, 2018 Dental examination Z01.20 an d Caries K02.9 [place] [address] [id number] 14 Sep, 2016 Dental examination Z01.20 [place] [address] [place] [id number] [address] [place] [id number] 08 Jan, 2016 Nausea R11.0 ; Irritable bow el syndrome without diarrhea K58.9 and History of renal transplant Z94.0 [place] [address] [id number] 2015 [place] [address] [id number] 11 Dec, 2015 Breast pain N64.4 ; Screenin g breast examination Z12.39 and Mild intermittent asthma without complication J45.20 [place] [address] [id number] 10 Dec, 2015 [place] [address] [id number] 09 Dec, 2015 Kidney transplant status Z94 .0 ; Personal history of immunosupression therapy Z92.25 ; Recurrent UTI N39.0 and Encounter for screening, unspecified Z13.9 [place] [address] [place] [id number] [address] [place] [address] Oct, [place] [address] [place] [id number] [address] [place] [address] Oct, [place] [address] [place] [id number] [address] [place] [address] Oct, [place] [address] [address] Oct, Hiatal hernia K44.9 and Atyp ical chest pain R07.89 [place] [address] [place] [id number] [address] [place] [address] Oct, [place] [address] [id number] [address] [place] [address] Sep, Kidney replaced by transplan t V42.0 and Bilateral low back pain with sciatica, sciatica laterality unspecified M54.40 [facility] [address] [id number] [address] [place] [address] Sep, [facility] [address] [id number] [address] [place] [address] Sep, Kidney replaced by transplan t V42.0 ; Bilateral low back pain with sciatica, sciatica laterality unspecified M54.40 ; Anxiety F41.9 and Primary insomnia F51.01 [facility] [address] [id number] [address] [place] [address] Aug, [facility] [address] [id number] [address] [place] [address] Aug, [facility] [address] [id number] [address] [place] [address] Aug, Kidney transplant status Z94 .0 ; Personal history of immunosupression therapy Z92.25 ; Recurrent urinary tract infection N39.0 and Screening Z13.9 [facility] [address] [id number] [address] [place] [address] Aug, [facility] [address] [id number] [address] [place] [address] Aug, Encounter for aftercare foll owing kidney transplant Z48.22 ; Chronic radicular pain of lower back M54.16 and PND (post-nasal drip) R09.82 [facility] [address] [id number] [address] [place] [address] Jul, [facility] [address] [id number] [address] [place] [address] Jul, [facility] [address] [id number] [address] [place] [address] Jul, [facility] [address] [id number] [address] [place] [address] Jul, Kidney replaced by transplan t V42.0 ; Depressive disorder, not elsewhere classified 311 ; Anxiety state, unspecified 300.00 ; Insomnia, unspecified 780.52 ; Irritable bowel syndrome 564.1 ; Chronic lumbar pain 724.2 and GERD (gastroesophageal reflux disease) 530.81 [facility] [address] [id number] [address] [place] [address] Jul, [facility] [address] [id number] [address] [place] [address] Jun, [facility] [address] [id number] [address] [place] [address] Jun, [facility] [address] [facility] [id number] [address] [place] [address] Jun, [facility] [address] [facility] [id number] [address] [place] [address] Jun, Kidney replaced by transplan t V42.0 [facility] [address] [facility] [id number] [address] [place] [address] May, [facility] [address] [facility] [id number] [address] [place] [address] May, Depression with anxiety 300. 4 and Skin infection 686.9 [facility] [address] [facility] [id number] [address] [place] [address] May, [facility] [address] [id number] [address] [place] [address] May, Kidney replaced by transplan t V42.0 ; Recurrent UTI (urinary tract infection) 599.0 and Absence of menstruation 626.0 [facility] [address] [facility] [id number] [address] [place] [address] May, [facility] [address] [facility] [id number] [address] [place] [address] May, Depression with anxiety 300. 4 [place] [address] [place] [id number] [address] [place] [address] May, [facility] [address] [place] [id number] [address] [place] [address] Apr, [facility] [address] [place] [id number] [address] [place] [address] Apr, [facility] [address] [place] [id number] [address] [place] [address] Apr, Depression, major, recurrent , mild 296.31 [facility] [address] [place] [id number] [address] [place] [address] Apr, Depression, major, recurrent , mild 296.31 [place] [address] [place] [id number] [address] [place] [address] Apr, Cervicalgia 723.1 ; Lumbago 724.2 ; Anxiety state, unspecified 300.00 ; Nausea 787.02 ; 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 ; Recurrent UTI (urinary tract infection) 599.0 and Knee pain, bilateral 719.46 [place] [address] [place] [id number] [address] [place] [address] March, Depression, major, recurrent , mild 296.31 [facility] [address] [place] [id number] [address] [place] [address] March, [facility] [address] [place] [id number] [address] [place] [address] March, [facility] [address] [place] [id number] [address] [place] [address] March, Lumbago 724.2 ; Insomnia, un specified 780.52 ; Depressive disorder, not elsewhere classified 311 ; 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 ; Anxiety 300.00 ; Allergic rhinitis 477.9 and GERD (gastroesophageal reflux disease) 530.81 [facility] [address] [place] [id number] [address] [place] [address] Feb, [facility] [address] [id number] [address] [place] [address], [place] [address] Feb, [facility] [address] [id number] [address] [place] [address], [place] [address] Jan, [facility] [address] [id number] [address] [place] [address], [place] [address] Jan, [facility] [address] [id number] [address] [place] [address], [place] [address] Jan, [facility] [address] [id number] [address] [place] [address], [place] [address] Jan, [facility] [address] [id number] [address] [place] [address], [place] [address] Dec, [facility] [address] [id number] [address] [place] [address], [place] [address] Dec, [facility] [address] [id number] [address] [place] [address], [place] [address] Dec, [facility] [address] [id number] [address] [place] [address], [place] [address] Dec, [facility] [address] [id number] [address] [place] [address], [place] [address] Dec, [facility] [address] [id number] [address] [place] [address], [place] [address] Dec, [facility] [address] [id number] [address] [place] [address], [place] [address] Dec, [facility] [address] [id number] [address] [place] [address], [place] [address] Nov, [facility] [address] [id number] [address] [place] [address], [place] [address] Nov, [facility] [address] [id number] [address] [place] [address], [place] [address] Nov, [facility] [address] [id number] [address] [place] [address] [address] Nov, [facility] [address] [id number] [address] [place] [address], [place] [address] Nov, [facility] [address] [id number] [address] [place] [address], [place] [address] Nov, [facility] [address] [id number] [address] [place] [address], [place] [address] Nov, [facility] [address] [id number] [address] [place] [address], [place] [address] Nov, [facility] [address] [id number] [address] [place] [address], [place] [address] Nov, [facility] [address] [id number] [address] [place] [address], [place] [address] Nov, [facility] [address] [id number] [address] [place] [address], [place] [address] Nov, [facility] [address] [id number] [address] [place] [address], [place] [address] Nov, [facility] [address] [id number] [address] [place] [address], [place] [address] Nov, [facility] [address] [id number] [address] [place] [address], [place] [address] Nov, [facility] [address] [id number] [address] [place] [address], [place] [address] Nov, [facility] [address] [id number] [address] [place] [address], [place] [address] Nov, [facility] [address] [id number] [address] [place] [address], [place] [address] Nov, [facility] [address] [id number] [address] [place] [address], [place] [address] Nov, [facility] [address] [id number] [address] [place] [address], [place] [address] Nov, [facility] [address] [id number] [address] [place] [address], [place] [address] Nov, [facility] [address] [id number] [address] [place] [address], [place] [address] Nov, [facility] [address] [id number] [address] [place] [address], [place] [address] Nov, [facility] [address] [id number] [address] [place] [address], [place] [address] Nov, [facility] [address] [id number] [address] [place] [address], [place] [address] Nov, [facility] [address] [id number] [address] [place] [address], [place] [address] Nov, [facility] [address] [id number] [address] [place] [address], [place] [address] Nov, [facility] [address] [id number] [address] [place] [address], [place] [address] Nov, [facility] [address] [id number] [address] [place] [address], [place] [address] Nov, [facility] [address] [id number] [address] [place] [address], [place] [address] Nov, [facility] [address] [id number] [address] [place] [address], [place] [address] Oct, [facility] [address] [id number] [address] [place] [address], [place] [address] Oct, [facility] [address] [id number] [address] [place] [address], [place] [address] Oct, [facility] [address] [id number] [address] [place] [address], [place] [address] Oct, [facility] [address] [id number] [address] [place] [address], [place] [address] Oct, [facility] [address] [id number] [address] [place] [address], [place] [address] Oct, [facility] [address] [id number] [address] [place] [address], [place] [address] Oct, [facility] [address] [id number] [address] [place] [address], [place] [address] Oct, [facility] [address] [id number] [address] [place] [address], [place] [address] Oct, [facility] [address] [id number] [address] [place] [address], [place] [address] Oct, [facility] [address] [id number] [address] [place] [address], [place] [address] Oct, [facility] [address] [id number] [address] [place] [address], [place] [address] Oct, [facility] [address] [id number] [address] [place] [address], [place] [address] Oct, [facility] [address] [id number] [address] [place] [address], [place] [address] Oct, [facility] [address] [id number] [address] [place] [address], [place] [address] Oct, [facility] [address] [id number] [address] [place] [address], [place] [address] Oct, [facility] [address] [id number] [address] [place] [address], [place] [address] Oct, [facility] [address] [id number] [address] [place] [address], [place] [address] Oct, [facility] [address] [id number] [address] [place] [address], [place] [address] Oct, [facility] [address] [id number] [address] [place] [address], [place] [address] 05 Oct, 2014 [facility] [address] [id number] [address] [place] [address], [place] [address] 05 Oct, 2014 [facility] [address] [id number] [address] [place] [address], [place] [address] Oct, [facility] [address] [id number] [address] [place] [address], [place] [address] Oct, [facility] [address] [id number] [address] [place] [address], [place] [address] Sep, [facility] [address] [id number] [address] [place] [address], [place] [address] Sep, [facility] [address] [id number] [address] [place] [address], [place] [address] Sep, [facility] [address] [id number] [address] [place] [address], [place] [address] Sep, [facility] [address] [id number] [address] [place] [address], [place] [address] Sep, [facility] [address] [id number] [address] [place] [address], [place] [address] Sep, [facility] [address] [id number] [address] [place] [address], [place] [address] Sep, [facility] [address] [id number] [address] [place] [address], [place] [address] Sep, [facility] [address] [id number] [address] [place] [address], [place] [address] Sep, [facility] [address] [id number] [address] [place] [address], [place] [address] Sep, [facility] [address] [id number] [address] [place] [address], [place] [address] Sep, [facility] [address] [id number] [address] [place] [address], [place] [address] Sep, [facility] [address] [id number] [address] [place] [address], [place] [address] Sep, [facility] [address] [id number] [address] [place] [address], [place] [address] Sep, [facility] [address] [id number] [address] [place] [address], [place] [address] Sep, [facility] [address] [id number] [address] [place] [address], [place] [address] Sep, [facility] [address] [id number] [address] [place] [address], [place] [address] Sep, [facility] [address] [id number] [address] [place] [address], [place] [address] Sep, [facility] [address] [id number] [address] [place] [address], [place] [address] Sep, [facility] [address] [id number] [address] [place] [address], [place] [address] Sep, [facility] [address] [id number] [address] [place] [address], [place] [address] Sep, [facility] [address] [id number] [address] [place] [address], [place] [address] Sep, [facility] [address] [id number] [address] [place] [address], [place] [address] Sep, [facility] [address] [id number] [address] [place] [address], [place] [address] Sep, [facility] [address] [id number] [address] [place] [address], [place] [address] Sep, [facility] [address] [id number] [address] [place] [address], [place] [address] Sep, [facility] [address] [id number] [address] [place] [address], [place] [address] Sep, [facility] [address] [id number] [address] [place] [address], [place] [address] Sep, [facility] [address] [id number] [address] [place] [address], [place] [address] Aug, [facility] [address] [id number] [address] [place] [address], [place] [address] Aug, [facility] [address] [id number] [address] [place] [address], [place] [address] Aug, [facility] [address] [id number] [address] [place] [address], [place] [address] Aug, [facility] [address] [id number] [address] [place] [address], [place] [address] Aug, [facility] [address] [id number] [address] [place] [address], [place] [address] Aug, [facility] [address] [id number] [address] [place] [address], [place] [address] Aug, [facility] [address] [id number] [address] [place] [address], [place] [address] Aug, [facility] [address] [id number] [address] [place] [address], [place] [address] Aug, [facility] [address] [id number] [address] [place] [address], [place] [address] Aug, [facility] [address] [id number] [address] [place] [address], [place] [address] Aug, [facility] [address] [id number] [address] [place] [id number] Aug, [facility] [address] [id number] [address] [place] [id number] Aug, [facility] [address] [id number] [address] [place] [id number] Aug, [facility] [address] [id number] [address] [place] [address], [place] [address] Aug, [facility] [address] [id number] [address] [place] [address], [place] [address] Aug, [facility] [address] [id number] [address] [place] [address] Aug, [facility] [address] [id number] [address] [place] [id number] 17 Aug, 2013 [facility] [address] [id number] [address] [place] [address], [place] [address] 14 Aug, 2013 [facility] [address] [id number] [address] [place] [id number] 14 Aug, 2013 [facility] [address] [id number] [address] [place] [address], [place] [address] 09 Aug, 2013 [facility] [address] [id number] [address] [place] [id number] 09 Aug, 2013 [facility] [address] [id number] [address] [place] [address], [place] [address] Aug, 2013 [facility] [address] [id number] [address] [place] [address], [place] [address] Aug, 2013 [facility] [address] [id number] [address] [place] [id number] 08 Aug, 2013 [facility] [address] [id number] [address] [place] [id number] 07 Aug, 2013 [facility] [address] [id number] [address] [place] [id number] Aug, 2013 [facility] [address] [id number] [address] [place] [id number] Aug, 2013 [facility] [address] [id number] [address] [place] [id number] 07 Aug, 2013 [facility] [address] [id number] [address] [place] [id number] 30 Jul, 2013 [facility] [address] [id number] [address] [place] [id number] 30 Jul, 2013 [facility] [address] [id number] [address] [place] [id number] 29 Jul, 2013 [facility] [address] [id number] [address] [place] [id number] 29 Jul, 2013 [facility] [address] [id number] [facility] [place] [address] 19 Jul, 2013 [facility] [address] [id number] [facility] [place] [address] 19 Jul, 2013 [facility] [address] [id number] [facility] [place] [address] 18 Jul, 2013 [facility] [address] [id number] [facility] [place] [address] 18 Jul, 2013 [facility] [address] [id number] [facility] [place] [address] 17 Jul, 2013 [facility] [address] [id number] [address] [place] [address], [place] [address] 17 Jul, 2013 [facility] [address] [id number] [address] [place] [address], [place] [address] 10 Jul, 2013 [facility] [address] [id number] [address] [place] [address], [place] [address] 10 Jul, 2013 [facility] [address] [id number] [address] [place] [address], [place] [address] Jun, [facility] [address] [id number] [address] [place] [address], [place] [address] Jun, [facility] [address] [id number] [address] [place] [address], [place] [address] Jun, [facility] [address] [id number] [address] [place] [address], [place] [address] Jun, [facility] [address] [id number] [address] [place] [address], [place] [address] Jun, [facility] [address] [id number] [address] [place] [address], [place] [address] Jun, [facility] [address] [id number] [address] [place] [address], [place] [address] Jun, [facility] [address] [id number] [address] [place] [address] [address] Jun, [facility] [address] [id number] [address] [place] [phone] Jun, [facility] [address] [id number] [address] [place] [phone] Jun, [facility] [address] [id number] [address] [place] [id number] Jun, [facility] [address] [id number] [address] [place] [phone] Jun, [facility] [address] [id number] [address] [place] [phone] May, [facility] [address] [id number] [address] [place] [phone] May, [facility] [address] [facility] [id number] [address] [place] [id number] May, IMMUNIZATIONS No Known Immunizations SOCIAL HISTORY [...]
--- OUTSIDE RECORDS SUMMARY | 2020-05-03 14:28 | XMS REPORT ---
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 20 Active 999033313 Problem Screening breast examination Z12.39 A ctive 587296581 Problem Irritable bowel syndrome without diarrhea K58.9 Active 14467397 Problem Irritable bowel syndrome with diarrhea K58.0 Active 031563417 ALLERGIES No Information ENCOUNTERS Encounter Location Date Diagnosis [facility] [address] [id number] [place] [address] [id number] March, Dental examination Z01.20 [facility] [address] [id number] [address] [place] [address] [id number] Feb, Caries K02.9 [facility] [address] [id number] [address] [place] [address] [id number] Feb, Caries K02.9 [facility] [address] [id number] [address] [place] [address] [id number] Jan, [facility] [address] [id number] [address] [place] [address] [id number] Jan, Caries K02.9 [facility] [address] [id number] [address] [place] [address] [id number] Dec, [facility] [address] [id number] [address] [place] [address] [id number] 18 Dec, 2018 Dental examination Z01.20 an d Caries K02.9 [place] [address] [id number] 14 Sep, 2016 Dental examination Z01.20 [place] [address] [place] [id number] [address] [place] [address] 08 Jan, 2016 Nausea R11.0 ; Irritable bow el syndrome without diarrhea K58.9 and History of renal transplant Z94.0 [place] [address] [id number] 2015 [place] [address] [id number] 11 Dec, 2015 Breast pain N64.4 ; Screenin g breast examination Z12.39 and Mild intermittent asthma without complication J45.20 [place] [address] [address] 10 Dec, 2015 [place] [address] [address] 09 Dec, 2015 Kidney transplant status Z94 .0 ; Personal history of immunosupression therapy Z92.25 ; Recurrent UTI N39.0 and Encounter for screening, unspecified Z13.9 [place] [address] [place] [id number] [address] [place] [address] Oct, [place] [address] [place] [id number] [address] [place] [address] Oct, [place] [address] [place] [id number] [address] [place] [address] Oct, [place] [address] [address] Oct, Hiatal hernia K44.9 and Atyp ical chest pain R07.89 [place] [address] [place] [id number] [address] [place] [address] Oct, [place] [address] [id number] [address] [place] [address] Sep, Kidney replaced by transplan t V42.0 and Bilateral low back pain with sciatica, sciatica laterality unspecified M54.40 [facility] [address] [id number] [address] [place] [address] Sep, [facility] [address] [id number] [address] [place] [address] Sep, Kidney replaced by transplan t V42.0 ; Bilateral low back pain with sciatica, sciatica laterality unspecified M54.40 ; Anxiety F41.9 and Primary insomnia F51.01 [facility] [address] [id number] [address] [place] [address] Aug, [facility] [address] [id number] [address] [place] [address] Aug, [facility] [address] [id number] [address] [place] [address] Aug, Kidney transplant status Z94 .0 ; Personal history of immunosupression therapy Z92.25 ; Recurrent urinary tract infection N39.0 and Screening Z13.9 [facility] [address] [id number] [address] [place] [address] Aug, [facility] [address] [id number] [address] [place] [address] Aug, Encounter for aftercare foll owing kidney transplant Z48.22 ; Chronic radicular pain of lower back M54.16 and PND (post-nasal drip) R09.82 [facility] [address] [id number] [address] [place] [address] Jul, [facility] [address] [id number] [address] [place] [address] Jul, [facility] [address] [id number] [address] [place] [address] Jul, [facility] [address] [id number] [address] [place] [address] Jul, Kidney replaced by transplan t V42.0 ; Depressive disorder, not elsewhere classified 311 ; Anxiety state, unspecified 300.00 ; Insomnia, unspecified 780.52 ; Irritable bowel syndrome 564.1 ; Chronic lumbar pain 724.2 and GERD (gastroesophageal reflux disease) 530.81 [facility] [address] [id number] [address] [place] [address] Jul, [facility] [address] [id number] [address] [place] [address] Jun, [facility] [address] [id number] [address] [place] [address] Jun, [facility] [address] [facility] [id number] [address] [place] [address] Jun, [facility] [address] [facility] [id number] [address] [place] [address] Jun, Kidney replaced by transplan t V42.0 [facility] [address] [facility] [id number] [address] [place] [address] May, [facility] [address] [facility] [id number] [address] [place] [address] May, Depression with anxiety 300. 4 and Skin infection 686.9 [facility] [address] [facility] [id number] [address] [place] [address] May, [facility] [address] [id number] [address] [place] [address] May, Kidney replaced by transplan t V42.0 ; Recurrent UTI (urinary tract infection) 599.0 and Absence of menstruation 626.0 [facility] [address] [facility] [id number] [address] [place] [address] May, [facility] [address] [facility] [id number] [address] [place] [address] May, Depression with anxiety 300. 4 [place] [address] [place] [id number] [address] [place] [address] May, [facility] [address] [place] [id number] [address] [place] [address] Apr, [facility] [address] [place] [id number] [address] [place] [address] Apr, [facility] [address] [place] [id number] [address] [place] [address] Apr, Depression, major, recurrent , mild 296.31 [facility] [address] [place] [id number] [address] [place] [address] Apr, Depression, major, recurrent , mild 296.31 [place] [address] [place] [id number] [address] [place] [address] Apr, Cervicalgia 723.1 ; Lumbago 724.2 ; Anxiety state, unspecified 300.00 ; Nausea 787.02 ; 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 ; Recurrent UTI (urinary tract infection) 599.0 and Knee pain, bilateral 719.46 [place] [address] [place] [id number] [address] [place] [address] March, Depression, major, recurrent , mild 296.31 [facility] [address] [place] [id number] [address] [place] [address] March, [facility] [address] [place] [id number] [address] [place] [address] March, [facility] [address] [place] [id number] [address] [place] [address] March, Lumbago 724.2 ; Insomnia, un specified 780.52 ; Depressive disorder, not elsewhere classified 311 ; 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 ; Anxiety 300.00 ; Allergic rhinitis 477.9 and GERD (gastroesophageal reflux disease) 530.81 [facility] [address] [place] [id number] [address] [place] [address] Feb, [facility] [address] [id number] [address] [place] [address], [place] [address] Feb, [facility] [address] [id number] [address] [place] [address], [place] [address] Jan, [facility] [address] [id number] [address] [place] [address], [place] [address] Jan, [facility] [address] [id number] [address] [place] [address], [place] [address] Jan, [facility] [address] [id number] [address] [place] [address], [place] [address] Jan, [facility] [address] [id number] [address] [place] [address], [place] [address] Dec, [facility] [address] [id number] [address] [place] [address], [place] [address] Dec, [facility] [address] [id number] [address] [place] [address], [place] [address] Dec, [facility] [address] [id number] [address] [place] [address], [place] [address] Dec, [facility] [address] [id number] [address] [place] [address], [place] [address] Dec, [facility] [address] [id number] [address] [place] [address], [place] [address] Dec, [facility] [address] [id number] [address] [place] [address], [place] [address] Dec, [facility] [address] [id number] [address] [place] [address], [place] [address] Nov, [facility] [address] [id number] [address] [place] [address], [place] [address] Nov, [facility] [address] [id number] [address] [place] [address], [place] [address] Nov, [facility] [address] [id number] [address] [place] [address] [address] Nov, [facility] [address] [id number] [address] [place] [address], [place] [address] Nov, [facility] [address] [id number] [address] [place] [address], [place] [address] Nov, [facility] [address] [id number] [address] [place] [address], [place] [address] Nov, [facility] [address] [id number] [address] [place] [address], [place] [address] Nov, [facility] [address] [id number] [address] [place] [address], [place] [address] Nov, [facility] [address] [id number] [address] [place] [address], [place] [address] Nov, [facility] [address] [id number] [address] [place] [address], [place] [address] Nov, [facility] [address] [id number] [address] [place] [address], [place] [address] Nov, [facility] [address] [id number] [address] [place] [address], [place] [address] Nov, [facility] [address] [id number] [address] [place] [address], [place] [address] Nov, [facility] [address] [id number] [address] [place] [address], [place] [address] Nov, [facility] [address] [id number] [address] [place] [address], [place] [address] Nov, [facility] [address] [id number] [address] [place] [address], [place] [address] Nov, [facility] [address] [id number] [address] [place] [address], [place] [address] Nov, [facility] [address] [id number] [address] [place] [address], [place] [address] Nov, [facility] [address] [id number] [address] [place] [address], [place] [address] Nov, [facility] [address] [id number] [address] [place] [address], [place] [address] Nov, [facility] [address] [id number] [address] [place] [address], [place] [address] Nov, [facility] [address] [id number] [address] [place] [address], [place] [address] Nov, [facility] [address] [id number] [address] [place] [address], [place] [address] Nov, [facility] [address] [id number] [address] [place] [address], [place] [address] Nov, [facility] [address] [id number] [address] [place] [address], [place] [address] Nov, [facility] [address] [id number] [address] [place] [address], [place] [address] Nov, [facility] [address] [id number] [address] [place] [address], [place] [address] Nov, [facility] [address] [id number] [address] [place] [address], [place] [address] Nov, [facility] [address] [id number] [address] [place] [address], [place] [address] Oct, [facility] [address] [id number] [address] [place] [address], [place] [address] Oct, [facility] [address] [id number] [address] [place] [address], [place] [address] Oct, [facility] [address] [id number] [address] [place] [address], [place] [address] Oct, [facility] [address] [id number] [address] [place] [address], [place] [address] Oct, [facility] [address] [id number] [address] [place] [address], [place] [address] Oct, [facility] [address] [id number] [address] [place] [address], [place] [address] Oct, [facility] [address] [id number] [address] [place] [address], [place] [address] Oct, [facility] [address] [id number] [address] [place] [address], [place] [address] Oct, [facility] [address] [id number] [address] [place] [address], [place] [address] Oct, [facility] [address] [id number] [address] [place] [address], [place] [address] Oct, [facility] [address] [id number] [address] [place] [address], [place] [address] Oct, [facility] [address] [id number] [address] [place] [address], [place] [address] Oct, [facility] [address] [id number] [address] [place] [address], [place] [address] Oct, [facility] [address] [id number] [address] [place] [address], [place] [address] Oct, [facility] [address] [id number] [address] [place] [address], [place] [address] Oct, [facility] [address] [id number] [address] [place] [address], [place] [address] Oct, [facility] [address] [id number] [address] [place] [address], [place] [address] Oct, [facility] [address] [id number] [address] [place] [address], [place] [address] Oct, [facility] [address] [id number] [address] [place] [address], [place] [address] 05 Oct, 2014 [facility] [address] [id number] [address] [place] [address], [place] [address] 05 Oct, 2014 [facility] [address] [id number] [address] [place] [address], [place] [address] Oct, [facility] [address] [id number] [address] [place] [address], [place] [address] Oct, [facility] [address] [id number] [address] [place] [address], [place] [address] Sep, [facility] [address] [id number] [address] [place] [address], [place] [address] Sep, [facility] [address] [id number] [address] [place] [address], [place] [address] Sep, [facility] [address] [id number] [address] [place] [address], [place] [address] Sep, [facility] [address] [id number] [address] [place] [address], [place] [address] Sep, [facility] [address] [id number] [address] [place] [address], [place] [address] Sep, [facility] [address] [id number] [address] [place] [address], [place] [address] Sep, [facility] [address] [id number] [address] [place] [address], [place] [address] Sep, [facility] [address] [id number] [address] [place] [address], [place] [address] Sep, [facility] [address] [id number] [address] [place] [address], [place] [address] Sep, [facility] [address] [id number] [address] [place] [address], [place] [address] Sep, [facility] [address] [id number] [address] [place] [address], [place] [address] Sep, [facility] [address] [id number] [address] [place] [address], [place] [address] Sep, [facility] [address] [id number] [address] [place] [address], [place] [address] Sep, [facility] [address] [id number] [address] [place] [address], [place] [address] Sep, [facility] [address] [id number] [address] [place] [address], [place] [address] Sep, [facility] [address] [id number] [address] [place] [address], [place] [address] Sep, [facility] [address] [id number] [address] [place] [address], [place] [address] Sep, [facility] [address] [id number] [address] [place] [address], [place] [address] Sep, [facility] [address] [id number] [address] [place] [address], [place] [address] Sep, [facility] [address] [id number] [address] [place] [address], [place] [address] Sep, [facility] [address] [id number] [address] [place] [address], [place] [address] Sep, [facility] [address] [id number] [address] [place] [address], [place] [address] Sep, [facility] [address] [id number] [address] [place] [address], [place] [address] Sep, [facility] [address] [id number] [address] [place] [address], [place] [address] Sep, [facility] [address] [id number] [address] [place] [address], [place] [address] Sep, [facility] [address] [id number] [address] [place] [address], [place] [address] Sep, [facility] [address] [id number] [address] [place] [address], [place] [address] Sep, [facility] [address] [id number] [address] [place] [address], [place] [address] Aug, [facility] [address] [id number] [address] [place] [address], [place] [address] Aug, [facility] [address] [id number] [address] [place] [address], [place] [address] Aug, [facility] [address] [id number] [address] [place] [address], [place] [address] Aug, [facility] [address] [id number] [address] [place] [address], [place] [address] Aug, [facility] [address] [id number] [address] [place] [address], [place] [address] Aug, [facility] [address] [id number] [address] [place] [address], [place] [address] Aug, [facility] [address] [id number] [address] [place] [address], [place] [address] Aug, [facility] [address] [id number] [address] [place] [address], [place] [address] Aug, [facility] [address] [id number] [address] [place] [address], [place] [address] Aug, [facility] [address] [id number] [address] [place] [address], [place] [address] Aug, [facility] [address] [id number] [address] [place] [address] Aug, [facility] [address] [id number] [address] [place] [address] Aug, [facility] [address] [id number] [address] [place] [address] Aug, [facility] [address] [id number] [address] [place] [address], [place] [address] Aug, [facility] [address] [id number] [address] [place] [address], [place] [address] Aug, [facility] [address] [id number] [address] [place] [address] Aug, [facility] [address] [id number] [address] [place] [address] 17 Aug, 2013 [facility] [address] [id number] [address] [place] [address], [place] [address] 14 Aug, 2013 [facility] [address] [id number] [address] [place] [address] 14 Aug, 2013 [facility] [address] [id number] [address] [place] [address], [place] [address] 09 Aug, 2013 [facility] [address] [id number] [address] [place] [address] 09 Aug, 2013 [facility] [address] [id number] [address] [place] [address], [place] [address] Aug, 2013 [facility] [address] [id number] [address] [place] [address], [place] [address] Aug, 2013 [facility] [address] [id number] [address] [place] [address] 08 Aug, 2013 [facility] [address] [id number] [address] [place] [address] 07 Aug, 2013 [facility] [address] [id number] [address] [place] [address] Aug, 2013 [facility] [address] [id number] [address] [place] [address] Aug, 2013 [facility] [address] [id number] [address] [place] [address] 07 Aug, 2013 [facility] [address] [id number] [address] [place] [address] 30 Jul, 2013 [facility] [address] [id number] [address] [place] [address] 30 Jul, 2013 [facility] [address] [id number] [address] [place] [address] 29 Jul, 2013 [facility] [address] [id number] [address] [place] [address] 29 Jul, 2013 [facility] [address] [id number] [address] [place] [address] 19 Jul, 2013 [facility] [address] [id number] [address] [place] [address] 19 Jul, 2013 [facility] [address] [id number] [address] [place] [address] 18 Jul, 2013 [facility] [address] [id number] [address] [place] [address] 18 Jul, 2013 [facility] [address] [id number] [address] [place] [address] 17 Jul, 2013 [facility] [address] [id number] [address] [place] [address], [place] [address] 17 Jul, 2013 [facility] [address] [id number] [address] [place] [address], [place] [address] 10 Jul, 2013 [facility] [address] [id number] [address] [place] [address], [place] [address] 10 Jul, 2013 [facility] [address] [id number] [address] [place] [address], [place] [address] Jun, [facility] [address] [id number] [address] [place] [address], [place] [address] Jun, [facility] [address] [id number] [address] [place] [address], [place] [address] Jun, [facility] [address] [id number] [address] [place] [address], [place] [address] Jun, [facility] [address] [id number] [address] [place] [address], [place] [address] Jun, [facility] [address] [id number] [address] [place] [address], [place] [address] Jun, [facility] [address] [id number] [address] [place] [address], [place] [address] Jun, [facility] [address] [id number] [address] [place] [address] [address] Jun, [facility] [address] [id number] [address] [place] [id number] Jun, [facility] [address] [id number] [address] [place] [id number] Jun, [facility] [address] [id number] [address] [place] [id number] Jun, [facility] [address] [id number] [address] [place] [address] Jun, [facility] [address] [id number] [address] [place] [id number] May, [facility] [address] [id number] [address] [place] [address] May, [facility] [address] [facility] [id number] [address] [place] [id number] May, IMMUNIZATIONS No Known Immunizations SOCIAL HISTORY [...]
--- OUTSIDE RECORDS SUMMARY | 2020-05-03 14:28 | XMS REPORT ---
Author Author Tracee AVILA Organization [facility] Address [address] [place] [address] Care Team Providers Care Health Concierge Name Role Phone SARAI AVILA Unavailable PROBLEMS Type Condition ICD9-CM Code BDL79-PN Code Onset Dates Condition S tatus SNOMED Code Problem Primary insomnia F51.01 Active 397 2004 Problem Breast pain N64.4 Active 44335980 Problem History of renal transplant Z94.0 Ac tive 945245646 Problem Violation of controlled substance agreement Z91.14 Active 531515522 Problem Mild intermittent asthma without complication J45. 20 Active 438819737 Problem Screening breast examination Z12.39 A ctive 463597497 Problem Irritable bowel syndrome without diarrhea K58.9 Active 68647135 Problem Irritable bowel syndrome with diarrhea K58.0 Active 705417121 ALLERGIES No Information ENCOUNTERS Encounter Location Date Diagnosis [facility] [id number] [place] [address] [id number] March, Dental examination Z01.20 [facility] [address] [id number] [address] [place] [address] [id number] Feb, Caries K02.9 [facility] [address] [id number] [address] [place] [address] [id number] Feb, Caries K02.9 [facility] [address] [id number] [address] [place] [address] [id number] Jan, [facility] [address] [id number] [address] [place] [address] [id number] Jan, Caries K02.9 [facility] [address] [id number] [address] [place] [address] [id number] Dec, [facility] [address] [id number] [address] [place] [address] [id number] 18 Dec, 2018 Dental examination Z01.20 an d Caries K02.9 [facility] [address] [id number] 14 Sep, 2016 Dental examination Z01.20 [facility] [address] [place] [id number] [address] [place] [id number] 08 Jan, 2016 Nausea R11.0 ; Irritable bow el syndrome without diarrhea K58.9 and History of renal transplant Z94.0 [facility] [address] [id number] 2015 [place] [address] [id number] 11 Dec, 2015 Breast pain N64.4 ; Screenin g breast examination Z12.39 and Mild intermittent asthma without complication J45.20 [facility] [address] [id number] 10 Dec, 2015 [place] [address] [id number] 09 Dec, 2015 Kidney transplant status Z94 .0 ; Personal history of immunosupression therapy Z92.25 ; Recurrent UTI N39.0 and Encounter for screening, unspecified Z13.9 [place] [address] [place] [id number] [address] [place] [phone] Oct, [place] [facility] [address] [place] [id number] [address] [place] [phone] Oct, [place] [address] [place] [id number] [address] [place] [phone] Oct, [place] [address] [id number] Oct, Hiatal hernia K44.9 and Atyp ical chest pain R07.89 [place] [address] [place] [id number] [address] [place] [phone] Oct, [place] [address] [id number] [address] [place] [id number] Sep, Kidney replaced by transplan t V42.0 and Bilateral low back pain with sciatica, sciatica laterality unspecified M54.40 [facility] [address] [id number] [address] [place] [phone] Sep, [facility] [address] [id number] [address] [place] [id number] Sep, Kidney replaced by transplan t V42.0 ; Bilateral low back pain with sciatica, sciatica laterality unspecified M54.40 ; Anxiety F41.9 and Primary insomnia F51.01 [facility] [address] [id number] [address] [place] [phone] Aug, [facility] [address] [id number] [address] [place] [phone] Aug, [facility] [address] [id number] [address] [place] [phone] Aug, Kidney transplant status Z94 .0 ; Personal history of immunosupression therapy Z92.25 ; Recurrent urinary tract infection N39.0 and Screening Z13.9 [facility] [address] [id number] [address] [place] [id number] Aug, [facility] [address] [id number] [address] [place] [id number] Aug, Encounter for aftercare foll owing kidney transplant Z48.22 ; Chronic radicular pain of lower back M54.16 and PND (post-nasal drip) R09.82 [facility] [address] [id number] [address] [place] [id number] Jul, [facility] [address] [id number] [address] [place] [phone] Jul, [facility] [address] [id number] [address] [place] [phone] Jul, [facility] [address] [id number] [address] [place] [id number] Jul, Kidney replaced by transplan t V42.0 ; Depressive disorder, not elsewhere classified 311 ; Anxiety state, unspecified 300.00 ; Insomnia, unspecified 780.52 ; Irritable bowel syndrome 564.1 ; Chronic lumbar pain 724.2 and GERD (gastroesophageal reflux disease) 530.81 [facility] [address] [id number] [address] [place] [id number] Jul, [facility] [address] [id number] [address] [place] [phone] Jun, [facility] [address] [id number] [address] [place] [phone] Jun, [facility] [address] [facility] [id number] [address] [place] [id number] Jun, [facility] [address] [facility] [id number] [address] [place] [phone] Jun, Kidney replaced by transplan t V42.0 [facility] [address] [facility] [id number] [address] [place] [phone] May, [facility] [address] [facility] [id number] [address] [place] [phone] May, Depression with anxiety 300. 4 and Skin infection 686.9 [facility] [address] [facility] [id number] [address] [place] [id number] May, [facility] [address] [id number] [address] [place] [id number] May, Kidney replaced by transplan t V42.0 ; Recurrent UTI (urinary tract infection) 599.0 and Absence of menstruation 626.0 [facility] [address] [facility] [id number] [address] [place] [phone] May, [facility] [address] [facility] [id number] [address] [place] [address] May, Depression with anxiety 300. 4 [place] [address] [place] [id number] [address] [place] [phone] May, [facility] [address] [place] [id number] [address] [place] [phone] Apr, [facility] [address] [place] [id number] [address] [place] [address] Apr, [facility] [address] [place] [id number] [address] [place] [id number] Apr, Depression, major, recurrent , mild 296.31 [facility] [address] [place] [id number] [address] [place] [id number] Apr, Depression, major, recurrent , mild 296.31 [place] [address] [place] [id number] [address] [place] [id number] Apr, Cervicalgia 723.1 ; Lumbago 724.2 ; Anxiety state, unspecified 300.00 ; Nausea 787.02 ; 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 ; Recurrent UTI (urinary tract infection) 599.0 and Knee pain, bilateral 719.46 [place] [address] [place] [id number] [address] [place] [id number] March, Depression, major, recurrent , mild 296.31 [facility] [address] [place] [id number] [address] [place] [id number] March, [facility] [address] [place] [id number] [address] [place] [id number] March, [facility] [address] [place] [id number] [address] [place] [address] March, Lumbago 724.2 ; Insomnia, un specified 780.52 ; Depressive disorder, not elsewhere classified 311 ; 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 ; Anxiety 300.00 ; Allergic rhinitis 477.9 and GERD (gastroesophageal reflux disease) 530.81 [facility] [address] [place] [id number] [address] [place] [id number] Feb, [facility] [address] [id number] [address] [place] [address], [place] [address] Feb, [facility] [address] [id number] [address] [place] [address], [place] [address] Jan, [facility] [address] [id number] [address] [place] [address], [place] [address] Jan, [facility] [address] [id number] [address] [place] [address], [place] [address] Jan, [facility] [address] [id number] [address] [place] [address], [place] [address] Jan, [facility] [address] [id number] [address] [place] [address], [place] [address] Dec, [facility] [address] [id number] [address] [place] [address], [place] [address] Dec, [facility] [address] [id number] [address] [place] [address], [place] [address] Dec, [facility] [address] [id number] [address] [place] [address], [place] [address] Dec, [facility] [address] [id number] [address] [place] [address], [place] [address] Dec, [facility] [address] [id number] [address] [place] [address], [place] [address] Dec, [facility] [address] [id number] [address] [place] [address], [place] [address] Dec, [facility] [address] [id number] [address] [place] [address], [place] [address] Nov, [facility] [address] [id number] [address] [place] [address], [place] [address] Nov, [facility] [address] [id number] [address] [place] [address], [place] [address] Nov, [facility] [address] [id number] [address] [place] [address] [address] Nov, [facility] [address] [id number] [address] [place] [address], [place] [address] Nov, [facility] [address] [id number] [address] [place] [address], [place] [address] Nov, [facility] [address] [id number] [address] [place] [address], [place] [address] Nov, [facility] [address] [id number] [address] [place] [address], [place] [address] Nov, [facility] [address] [id number] [address] [place] [address], [place] [address] Nov, [facility] [address] [id number] [address] [place] [address], [place] [address] Nov, [facility] [address] [id number] [address] [place] [address], [place] [address] Nov, [facility] [address] [id number] [address] [place] [address], [place] [address] Nov, [facility] [address] [id number] [address] [place] [address], [place] [address] Nov, [facility] [address] [id number] [address] [place] [address], [place] [address] Nov, [facility] [address] [id number] [address] [place] [address], [place] [address] Nov, [facility] [address] [id number] [address] [place] [address], [place] [address] Nov, [facility] [address] [id number] [address] [place] [address], [place] [address] Nov, [facility] [address] [id number] [address] [place] [address], [place] [address] Nov, [facility] [address] [id number] [address] [place] [address], [place] [address] Nov, [facility] [address] [id number] [address] [place] [address], [place] [address] Nov, [facility] [address] [id number] [address] [place] [address], [place] [address] Nov, [facility] [address] [id number] [address] [place] [address], [place] [address] Nov, [facility] [address] [id number] [address] [place] [address], [place] [address] Nov, [facility] [address] [id number] [address] [place] [address], [place] [address] Nov, [facility] [address] [id number] [address] [place] [address], [place] [address] Nov, [facility] [address] [id number] [address] [place] [address], [place] [address] Nov, [facility] [address] [id number] [address] [place] [address], [place] [address] Nov, [facility] [address] [id number] [address] [place] [address], [place] [address] Nov, [facility] [address] [id number] [address] [place] [address], [place] [address] Nov, [facility] [address] [id number] [address] [place] [address], [place] [address] Oct, [facility] [address] [id number] [address] [place] [address], [place] [address] Oct, [facility] [address] [id number] [address] [place] [address], [place] [address] Oct, [facility] [address] [id number] [address] [place] [address], [place] [address] Oct, [facility] [address] [id number] [address] [place] [address], [place] [address] Oct, [facility] [address] [id number] [address] [place] [address], [place] [address] Oct, [facility] [address] [id number] [address] [place] [address], [place] [address] Oct, [facility] [address] [id number] [address] [place] [address], [place] [address] Oct, [facility] [address] [id number] [address] [place] [address], [place] [address] Oct, [facility] [address] [id number] [address] [place] [address], [place] [address] Oct, [facility] [address] [id number] [address] [place] [address], [place] [address] Oct, [facility] [address] [id number] [address] [place] [address], [place] [address] Oct, [facility] [address] [id number] [address] [place] [address], [place] [address] Oct, [facility] [address] [id number] [address] [place] [address], [place] [address] Oct, [facility] [address] [id number] [address] [place] [address], [place] [address] Oct, [facility] [address] [id number] [address] [place] [address], [place] [address] Oct, [facility] [address] [id number] [address] [place] [address], [place] [address] Oct, [facility] [address] [id number] [address] [place] [address], [place] [address] Oct, [facility] [address] [id number] [address] [place] [address], [place] [address] Oct, [facility] [address] [id number] [address] [place] [address], [place] [address] 05 Oct, 2014 [facility] [address] [id number] [address] [place] [address], [place] [address] 05 Oct, 2014 [facility] [address] [id number] [address] [place] [address], [place] [address] Oct, [facility] [address] [id number] [address] [place] [address], [place] [address] Oct, [facility] [address] [id number] [address] [place] [address], [place] [address] Sep, [facility] [address] [id number] [address] [place] [address], [place] [address] Sep, [facility] [address] [id number] [address] [place] [address], [place] [address] Sep, [facility] [address] [id number] [address] [place] [address], [place] [address] Sep, [facility] [address] [id number] [address] [place] [address], [place] [address] Sep, [facility] [address] [id number] [address] [place] [address], [place] [address] Sep, [facility] [address] [id number] [address] [place] [address], [place] [address] Sep, [facility] [address] [id number] [address] [place] [address], [place] [address] Sep, [facility] [address] [id number] [address] [place] [address], [place] [address] Sep, [facility] [address] [id number] [address] [place] [address], [place] [address] Sep, [facility] [address] [id number] [address] [place] [address], [place] [address] Sep, [facility] [address] [id number] [address] [place] [address], [place] [address] Sep, [facility] [address] [id number] [address] [place] [address], [place] [address] Sep, [facility] [address] [id number] [address] [place] [address], [place] [address] Sep, [facility] [address] [id number] [address] [place] [address], [place] [address] Sep, [facility] [address] [id number] [address] [place] [address], [place] [address] Sep, [facility] [address] [id number] [address] [place] [address], [place] [address] Sep, [facility] [address] [id number] [address] [place] [address], [place] [address] Sep, [facility] [address] [id number] [address] [place] [address], [place] [address] Sep, [facility] [address] [id number] [address] [place] [address], [place] [address] Sep, [facility] [address] [id number] [address] [place] [address], [place] [address] Sep, [facility] [address] [id number] [address] [place] [address], [place] [address] Sep, [facility] [address] [id number] [address] [place] [address], [place] [address] Sep, [facility] [address] [id number] [address] [place] [address], [place] [address] Sep, [facility] [address] [id number] [address] [place] [address], [place] [address] Sep, [facility] [address] [id number] [address] [place] [address], [place] [address] Sep, [facility] [address] [id number] [address] [place] [address], [place] [address] Sep, [facility] [address] [id number] [address] [place] [address], [place] [address] Sep, [facility] [address] [id number] [address] [place] [address], [place] [address] Aug, [facility] [address] [id number] [address] [place] [address], [place] [address] Aug, [facility] [address] [id number] [address] [place] [address], [place] [address] Aug, [facility] [address] [id number] [address] [place] [address], [place] [address] Aug, [facility] [address] [id number] [address] [place] [address], [place] [address] Aug, [facility] [address] [id number] [address] [place] [address], [place] [address] Aug, [facility] [address] [id number] [address] [place] [address], [place] [address] Aug, [facility] [address] [id number] [address] [place] [address], [place] [address] Aug, [facility] [address] [id number] [address] [place] [address], [place] [address] Aug, [facility] [address] [id number] [address] [place] [address], [place] [address] Aug, [facility] [address] [id number] [address] [place] [address], [place] [address] Aug, [facility] [address] [id number] [address] [place] [id number] Aug, [facility] [address] [id number] [address] [place] [id number] Aug, [facility] [address] [id number] [address] [place] [id number] Aug, [facility] [address] [id number] [address] [place] [address], [place] [address] Aug, [facility] [address] [id number] [address] [place] [address], [place] [address] Aug, [facility] [address] [id number] [address] [place] [id number] Aug, [facility] [address] [id number] [address] [place] [id number] 17 Aug, 2013 [facility] [address] [id number] [address] [place] [address], [place] [address] 14 Aug, 2013 [facility] [address] [id number] [address] [place] [id number] 14 Aug, 2013 [facility] [address] [id number] [address] [place] [address], [place] [id number] 09 Aug, 2013 [facility] [address] [id number] [address] [place] [id number] 09 Aug, 2013 [facility] [address] [id number] [address] [place] [address], [place] [address] Aug, 2013 [facility] [address] [id number] [address] [place] [address], [place] [address] Aug, 2013 [facility] [address] [id number] [address] [place] [id number] 08 Aug, 2013 [facility] [address] [id number] [address] [place] [id number] 07 Aug, 2013 [facility] [address] [id number] [address] [place] [id number] Aug, 2013 [facility] [address] [id number] [address] [place] [id number] Aug, 2013 [facility] [address] [id number] [address] [place] [id number] 07 Aug, 2013 [facility] [address] [id number] [address] [place] [id number] 30 Jul, 2013 [facility] [address] [id number] [address] [place] [id number] 30 Jul, 2013 [facility] [address] [id number] [address] [place] [id number] 29 Jul, 2013 [facility] [address] [id number] [address] [place] [id number] 29 Jul, 2013 [facility] [address] [id number] [facility] [id number] 19 Jul, 2013 [facility] [address] [id number] [facility] [place] [id number] 19 Jul, 2013 [facility] [address] [id number] [facility] [place] [address] 18 Jul, 2013 [facility] [address] [id number] [facility] [place] [id number] 18 Jul, 2013 [facility] [address] [id number] [facility] [place] [address] 17 Jul, 2013 [facility] [address] [id number] [address] [place] [address], [place] [id number] 17 Jul, 2013 [facility] [address] [id number] [address] [place] [address], [place] [address] 10 Jul, 2013 [facility] [address] [id number] [address] [place] [address], [place] [id number] 10 Jul, 2013 [facility] [address] [id number] [address] [place] [address], [place] [id number] Jun, [facility] [address] [id number] [address] [place] [address], [place] [address] Jun, [facility] [address] [id number] [address] [place] [address], [place] [id number] Jun, [facility] [address] [id number] [address] [place] [address], [place] [id number] Jun, [facility] [address] [id number] [address] [place] [address], [place] [id number] Jun, [facility] [address] [id number] [address] [place] [address], [place] [id number] Jun, [facility] [address] [id number] [address] [place] [address], [place] [id number] Jun, [facility] [address] [id number] [address] [place], [place] [address] [address] Jun, [facility] [address] [id number] [address] [place] [id number] Jun, [facility] [address] [id number] [address] [place] [id number] Jun, [facility] [address] [id number] [address] [place] [id number] Jun, [facility] [address] [id number] [address] [place] [id number] Jun, [facility] [address] [id number] [address] [place] [phone] May, [facility] [address] [id number] [address] [place] [id number] May, [facility] [address] [facility] [id number] [address] [place] [phone] May, IMMUNIZATIONS No Known Immunizations SOCIAL HISTORY [...]
--- OUTSIDE RECORDS SUMMARY | 2020-05-03 14:28 | XMS REPORT ---
Author Author Tracee Conrad Organization [facility] Address [address] [place] [address] Care Team Providers Care Medical Artist Name Role Phone MARVIN Conrad Unavailable PROBLEMS Type Condition ICD9-CM Code XXM55-VL Code Onset Dates Condition S tatus SNOMED Code Problem Primary insomnia F51.01 Active 397 2004 Problem Breast pain N64.4 Active 25586166 Problem History of renal transplant Z94.0 Ac tive 346980555 Problem Violation of controlled substance agreement Z91.14 Active 115591880 Problem Mild intermittent asthma without complication J45. 20 Active 514066956 Problem Screening breast examination Z12.39 A ctive 896454933 Problem Irritable bowel syndrome without diarrhea K58.9 Active 45213086 Problem Irritable bowel syndrome with diarrhea K58.0 Active [id number] ALLERGIES No Information ENCOUNTERS Encounter Location Date Diagnosis [facility] [address] [id number] [address] [place] [address] [id number] March, Dental examination Z01.20 [facility] [address] [id number] [address] [place] [address] [id number] Feb, Caries K02.9 [facility] [address] [id number] [address] [place] [address] [id number] Feb, Caries K02.9 [facility] [address] [id number] [address] [place] [address] [id number] Jan, [facility] [address] [id number] [address] [place] [address] [id number] Jan, Caries K02.9 [facility] [address] [id number] [address] [place] [address] [id number] Dec, [facility] [address] [id number] [address] [place] [address] [id number] 18 Dec, 2018 Dental examination Z01.20 an d Caries K02.9 [place] [address] [id number] 14 Sep, 2016 Dental examination Z01.20 [place] [address] [address] [place] [id number] [address] [place] [id number] 08 Jan, 2016 Nausea R11.0 ; Irritable bow el syndrome without diarrhea K58.9 and History of renal transplant Z94.0 [place] [address] [id number] 2015 [place] [address] [id number] 11 Dec, 2015 Breast pain N64.4 ; Screenin g breast examination Z12.39 and Mild intermittent asthma without complication J45.20 [place] [address] [id number] 10 Dec, 2015 [place] [address] [id number] 09 Dec, 2015 Kidney transplant status Z94 .0 ; Personal history of immunosupression therapy Z92.25 ; Recurrent UTI N39.0 and Encounter for screening, unspecified Z13.9 [place] [address] [address] [place] [id number] [address] [place] [phone] Oct, [place] [address] [address] [place] [id number] [address] [place] [address] Oct, [place] [address] [id number] Oct, [place] [address] [id number] Oct, Hiatal hernia K44.9 and Atyp ical chest pain R07.89 [place] [address] [id number] Oct, [place] [address] [id number] [address] [place] [phone] Sep, Kidney replaced by transplan t V42.0 and Bilateral low back pain with sciatica, sciatica laterality unspecified M54.40 [facility] [address] [id number] [address] [place] [id number] Sep, [facility] [address] [id number] [address] [place] [phone] Sep, Kidney replaced by transplan t V42.0 ; Bilateral low back pain with sciatica, sciatica laterality unspecified M54.40 ; Anxiety F41.9 and Primary insomnia F51.01 [facility] [address] [id number] [address] [place] [phone] Aug, [facility] [address] [id number] [address] [place] [address] Aug, [facility] [address] [id number] [address] [place] [phone] Aug, Kidney transplant status Z94 .0 ; Personal history of immunosupression therapy Z92.25 ; Recurrent urinary tract infection N39.0 and Screening Z13.9 [facility] [address] [id number] [address] [place] [address] Aug, [facility] [address] [id number] [address] [place] [phone] Aug, Encounter for aftercare foll owing kidney transplant Z48.22 ; Chronic radicular pain of lower back M54.16 and PND (post-nasal drip) R09.82 [facility] [address] [id number] [address] [place] [phone] Jul, [facility] [address] [id number] [address] [place] [id number] Jul, [facility] [address] [id number] [address] [place] [phone] Jul, [facility] [address] [id number] [address] [place] [address] Jul, Kidney replaced by transplan t V42.0 ; Depressive disorder, not elsewhere classified 311 ; Anxiety state, unspecified 300.00 ; Insomnia, unspecified 780.52 ; Irritable bowel syndrome 564.1 ; Chronic lumbar pain 724.2 and GERD (gastroesophageal reflux disease) 530.81 [facility] [address] [id number] [address] [place] [phone] Jul, [facility] [address] [id number] [address] [place] [phone] Jun, [facility] [address] [id number] [address] [place] [phone] Jun, [facility] [address] [id number] [address] [place] [phone] Jun, [facility] [address] [facility] [id number] [address] [place] [phone] Jun, Kidney replaced by transplan t V42.0 [facility] [address] [id number] [address] [place] [phone] May, [facility] [address] [id number] [address] [place] [address] May, Depression with anxiety 300. 4 and Skin infection 686.9 [place] [address] [id number] [address] [place] [phone] May, [facility] [address] [id number] [address] [place] [phone] May, Kidney replaced by transplan t V42.0 ; Recurrent UTI (urinary tract infection) 599.0 and Absence of menstruation 626.0 [facility] [address] [facility] [id number] [address] [place] [phone] May, [facility] [address] [facility] [id number] [address] [place] [address] May, Depression with anxiety 300. 4 [place] [address] [facility] [id number] [address] [place] [phone] May, [facility] [address] [place] [id number] [address] [place] [address] Apr, [facility] [address] [facility] [id number] [address] [place] [id number] Apr, [facility] [address] [place] [id number] [address] [place] [address] Apr, Depression, major, recurrent , mild 296.31 [facility] [address] [place] [id number] [address] [place] [address] Apr, Depression, major, recurrent , mild 296.31 [place] [address] [address] [place] [id number] [address] [place] [address] Apr, Cervicalgia 723.1 ; Lumbago 724.2 ; Anxiety state, unspecified 300.00 ; Nausea 787.02 ; 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 ; Recurrent UTI (urinary tract infection) 599.0 and Knee pain, bilateral 719.46 [place] [address] [address] [place] [id number] [address] [place] [address] March, Depression, major, recurrent , mild 296.31 [place] [address] [address] [place] [id number] [address] [place] [address] March, [facility] [address] [place] [id number] [address] [place] [id number] March, [facility] [address] [place] [id number] [address] [place] [phone] March, Lumbago 724.2 ; Insomnia, un specified 780.52 ; Depressive disorder, not elsewhere classified 311 ; 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 ; Anxiety 300.00 ; Allergic rhinitis 477.9 and GERD (gastroesophageal reflux disease) 530.81 [place] [address] [address] [place] [id number] [address] [place] [phone] Feb, [facility] [address] [id number] [address] [place] [address], [place] [address] Feb, [facility] [address] [id number] [address] [place] [address], [place] [address] Jan, [facility] [address] [id number] [address] [place] [address], [place] [address] Jan, [facility] [address] [id number] [address] [place] [address], [place] [address] Jan, [facility] [address] [id number] [address] [place] [address], [place] [address] Jan, [facility] [address] [id number] [address] [place] [address], [place] [address] Dec, [facility] [address] [id number] [address] [place] [address], [place] [address] Dec, [facility] [address] [id number] [address] [place] [address], [place] [address] Dec, [facility] [address] [id number] [address] [place] [address], [place] [address] Dec, [facility] [address] [id number] [address] [place] [address], [place] [address] Dec, [facility] [address] [id number] [address] [place] [address], [place] [address] Dec, [facility] [address] [id number] [address] [place] [address], [place] [address] Dec, [facility] [address] [id number] [address] [place] [address], [place] [address] Nov, [facility] [address] [id number] [address] [place] [address], [place] [address] Nov, [facility] [address] [id number] [address] [place] [address], [place] [address] Nov, [facility] [address] [id number] [address] [place] [phone] Nov, [facility] [address] [id number] [address] [place] [address], [place] [address] Nov, [facility] [address] [id number] [address] [place] [address], [place] [address] Nov, [facility] [address] [id number] [address] [place] [address], [place] [address] Nov, [facility] [address] [id number] [address] [place] [address], [place] [address] Nov, [facility] [address] [id number] [address] [place] [address], [place] [address] Nov, [facility] [address] [id number] [address] [place] [address], [place] [address] Nov, [facility] [address] [id number] [address] [place] [address], [place] [address] Nov, [facility] [address] [id number] [address] [place] [address], [place] [address] Nov, [facility] [address] [id number] [address] [place] [address], [place] [address] Nov, [facility] [address] [id number] [address] [place] [address], [place] [address] Nov, [facility] [address] [id number] [address] [place] [address], [place] [address] Nov, [facility] [address] [id number] [address] [place] [address], [place] [address] Nov, [facility] [address] [id number] [address] [place] [address], [place] [address] Nov, [facility] [address] [id number] [address] [place] [address], [place] [address] Nov, [facility] [address] [id number] [address] [place] [address], [place] [address] Nov, [facility] [address] [id number] [address] [place] [address], [place] [address] Nov, [facility] [address] [id number] [address] [place] [address], [place] [address] Nov, [facility] [address] [id number] [address] [place] [address], [place] [address] Nov, [facility] [address] [id number] [address] [place] [address], [place] [address] Nov, [facility] [address] [id number] [address] [place] [address], [place] [address] Nov, [facility] [address] [id number] [address] [place] [address], [place] [address] Nov, [facility] [address] [id number] [address] [place] [address], [place] [address] Nov, [facility] [address] [id number] [address] [place] [address], [place] [address] Nov, [facility] [address] [id number] [address] [place] [address], [place] [address] Nov, [facility] [address] [id number] [address] [place] [address], [place] [address] Nov, [facility] [address] [id number] [address] [place] [address], [place] [address] Oct, [facility] [address] [id number] [address] [place] [address], [place] [address] Oct, [facility] [address] [id number] [address] [place] [address], [place] [address] Oct, [facility] [address] [id number] [address] [place] [address], [place] [address] Oct, [facility] [address] [id number] [address] [place] [address], [place] [address] Oct, [facility] [address] [id number] [address] [place] [address], [place] [address] Oct, [facility] [address] [id number] [address] [place] [address], [place] [address] Oct, [facility] [address] [id number] [address] [place] [address], [place] [address] Oct, [facility] [address] [id number] [address] [place] [address], [place] [address] Oct, [facility] [address] [id number] [address] [place] [address], [place] [address] Oct, [facility] [address] [id number] [address] [place] [address], [place] [address] Oct, [facility] [address] [id number] [address] [place] [address], [place] [address] Oct, [facility] [address] [id number] [address] [place] [address], [place] [address] 17 Oct, 2014 [facility] [address] [id number] [address] [place] [address], [place] [address] 17 Oct, 2014 [facility] [address] [id number] [address] [place] [address], [place] [address] 16 Oct, 2014 [facility] [address] [id number] [address] [place] [address], [place] [address] 16 Oct, 2014 [facility] [address] [id number] [address] [place] [address], [place] [address] 13 Oct, 2014 [facility] [address] [id number] [address] [place] [address], [place] [address] Oct, [facility] [address] [id number] [address] [place] [address], [place] [address] Oct, [facility] [address] [id number] [address] [place] [address], [place] [address] 05 Oct, 2014 [facility] [address] [id number] [address] [place] [address], [place] [address] 05 Oct, 2014 [facility] [address] [id number] [address] [place] [address], [place] [address] Oct, [facility] [address] [id number] [address] [place] [address], [place] [address] Oct, [facility] [address] [id number] [address] [place] [address], [place] [address] Sep, [facility] [address] [id number] [address] [place] [address], [place] [address] Sep, [facility] [address] [id number] [address] [place] [address], [place] [address] Sep, [facility] [address] [id number] [address] [place] [address], [place] [address] Sep, [facility] [address] [id number] [address] [place] [address], [place] [address] Sep, [facility] [address] [id number] [address] [place] [address], [place] [address] Sep, [facility] [address] [id number] [address] [place] [address], [place] [address] Sep, [facility] [address] [id number] [address] [place] [address], [place] [address] Sep, [facility] [address] [id number] [address] [place] [address], [place] [address] Sep, [facility] [address] [id number] [address] [place] [address], [place] [address] Sep, [facility] [address] [id number] [address] [place] [address] Sep, [facility] [address] [id number] [address] [place] [address], [place] [address] Sep, [facility] [address] [id number] [address] [place] [address], [place] [address] Sep, [facility] [address] [id number] [address] [place] [address], [place] [address] Sep, [facility] [address] [id number] [address] [place] [address], [place] [address] Sep, [facility] [address] [id number] [address] [place] [address], [place] [address] Sep, [facility] [address] [id number] [address] [place] [address], [place] [address] Sep, [facility] [address] [id number] [address] [place] [address], [place] [address] Sep, [facility] [address] [id number] [address] [place] [address], [place] [address] Sep, [facility] [address] [id number] [address] [place] [address], [place] [address] Sep, [facility] [address] [id number] [address] [place] [address], [place] [address] Sep, [facility] [address] [id number] [address] [place] [address], [place] [address] Sep, [facility] [address] [id number] [address] [place] [address], [place] [address] Sep, [facility] [address] [id number] [address] [place] [address], [place] [address] Sep, [facility] [address] [id number] [address] [place] [address], [place] [address] Sep, [facility] [address] [id number] [address] [place] [address], [place] [address] Sep, [facility] [address] [id number] [address] [place] [address], [place] [address] Sep, [facility] [address] [id number] [address] [place] [address], [place] [address] Sep, [facility] [address] [id number] [address] [place] [address], [place] [address] Aug, [facility] [address] [id number] [address] [place] [address], [place] [address] Aug, [facility] [address] [id number] [address] [place] [address], [place] [address] Aug, [facility] [address] [id number] [address] [place] [address], [place] [address] Aug, [facility] [address] [id number] [address] [place] [address], [place] [address] Aug, [facility] [address] [id number] [address] [place] [address], [place] [address] Aug, [facility] [address] [id number] [address] [place] [address], [place] [address] Aug, [facility] [address] [id number] [address] [place] [address], [place] [address] Aug, [facility] [address] [id number] [address] [place] [address], [place] [address] Aug, [facility] [address] [id number] [address] [place] [address], [place] [address] Aug, [facility] [address] [id number] [address] [place] [address], [place] [address] Aug, [facility] [address] [id number] [address] [place] [address], [place] [address] Aug, [facility] [address] [id number] [address] [place] [address], [place] [address] Aug, [facility] [address] [id number] [address] [place] [address] Aug, [facility] [address] [id number] [address] [place] [address], [place] [address] Aug, [facility] [address] [id number] [address] [place] [address], [place] [address] Aug, [facility] [address] [id number] [address] [place] [address], [place] [address] 17 Aug, 2014 [facility] [address] [id number] [address] [place] [address], [place] [address] 17 Aug, 2013 [facility] [address] [id number] [address] [place] [address], [place] [address] 14 Aug, 2013 [facility] [address] [id number] [address] [place] [address], [place] [address] 14 Aug, 2013 [facility] [address] [id number] [address] [place] [address], [place] [address] 09 Aug, 2013 [facility] [address] [id number] [address] [place] [address], [place] [address] 09 Aug, 2013 [facility] [address] [id number] [address] [place] [address], [place] [address] Aug, 2013 [facility] [address] [id number] [address] [place] [address], [place] [address] 09 Aug, 2013 [facility] [address] [id number] [address] [place] [address], [place] [address] 08 Aug, 2013 [facility] [address] [id number] [address] [place] [address], [place] [address] 07 Aug, 2013 [facility] [address] [id number] [address] [place] [address], [place] [address] Aug, 2013 [facility] [address] [id number] [address] [place] [address], [place] [address] Aug, 2013 [facility] [address] [id number] [address] [place] [address], [place] [address] 07 Aug, 2013 [facility] [address] [id number] [address] [place] [id number] 30 Jul, 2013 [facility] [address] [id number] [address] [place] [address], [place] [address] 30 Jul, 2013 [facility] [address] [id number] [address] [place] [address], [place] [address] 29 Jul, 2013 [facility] [address] [id number] [address] [place] [address], [place] [address] 29 Jul, 2013 [facility] [address] [id number] [facility] [address] 19 Jul, 2013 [facility] [address] [id number] [address] [place] [address], [place] [address] 19 Jul, 2013 [facility] [address] [id number] [address] [place] [address], [place] [address] 18 Jul, 2013 [facility] [address] [id number] [address] [place] [address], [place] [address] 18 Jul, 2013 [facility] [address] [id number] [address] [place] [address], [place] [address] 17 Jul, 2013 [facility] [address] [id number] [address] [place] [address], [place] [id number] 17 Jul, 2013 [facility] [address] [id number] [address] [place] [address], [place] [id number] 10 Jul, 2014 [facility] [address] [id number] [address] [place] [address], [place] [id number] 10 Jul, 2013 [facility] [address] [id number] [address] [place] [address], [place] [id number] Jun, [facility] [address] [id number] [address] [place] [address], [place] [id number] Jun, [facility] [address] [id number] [address] [place] [address], [place] [address] Jun, [facility] [address] [id number] [address] [place] [address], [place] [address] Jun, [facility] [address] [id number] [address] [place] [address], [place] [address] Jun, [facility] [address] [id number] [address] [place] [address], [place] [address] Jun, [facility] [address] [id number] [address] [place] [address], [place] [address] Jun, [facility] [address] [id number] [address] [address] Jun, [facility] [address] [id number] [address] [place] [id number] Jun, [facility] [address] [id number] [address] [place] [id number] Jun, [facility] [address] [id number] [address] [place] [id number] Jun, [facility] [address] [id number] [address] [place] [id number] Jun, [facility] [address] [id number] [address] [place] [id number] May, [facility] [address] [id number] [address] [place] [id number] May, [facility] [address] [facility] [id number] [address] [place] [id number] May, IMMUNIZATIONS No Known Immunizations SOCIAL HISTORY [...]
--- OUTSIDE RECORDS SUMMARY | 2020-05-03 14:28 | XMS REPORT ---
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 20 Active 777037769 Problem Screening breast examination Z12.39 A ctive 797436523 Problem Irritable bowel syndrome without diarrhea K58.9 Active 48043290 Problem Irritable bowel syndrome with diarrhea K58.0 Active [id number] ALLERGIES No Information ENCOUNTERS Encounter Location Date Diagnosis [facility] [id number] [place] [address] [id number] March, Dental examination Z01.20 [facility] [address] [id number] [address] [place] [address] [id number] Feb, Caries K02.9 [facility] [address] [id number] [address] [place] [address] [id number] Feb, Caries K02.9 [facility] [address] [id number] [address] [place] [address] [id number] Jan, [facility] [address] [id number] [address] [place] [address] [id number] Jan, Caries K02.9 [facility] [address] [id number] [address] [place] [address] [id number] Dec, [facility] [address] [id number] [address] [place] [address] [id number] Dec, 2018 Dental examination Z01.20 an d Caries K02.9 [place] [address] [address] 14 Sep, 2016 Dental examination Z01.20 [place] [address] [address] [place] [id number] [address] [place] [id number] 08 Jan, 2016 Nausea R11.0 ; Irritable bow el syndrome without diarrhea K58.9 and History of renal transplant Z94.0 [place] [address] [id number] 2015 [place] [address] [address] 11 Dec, 2015 Breast pain N64.4 ; Screenin g breast examination Z12.39 and Mild intermittent asthma without complication J45.20 [place] [address] [id number] 10 Dec, 2015 [place] [address] [address] 09 Dec, 2015 Kidney transplant status Z94 .0 ; Personal history of immunosupression therapy Z92.25 ; Recurrent UTI N39.0 and Encounter for screening, unspecified Z13.9 [place] [address] [address] [place] [id number] [address] [place] [id number] Oct, [place] [address] [address] [place] [id number] [address] [place] [phone] Oct, [place] [address] [place] [id number] [address] [place] [address] Oct, [place] [address] [address] Oct, Hiatal hernia K44.9 and Atyp ical chest pain R07.89 [place] [address] [address] [place] [id number] [address] [place] [address] Oct, [place] [address] [id number] [address] [place] [address] Sep, Kidney replaced by transplan t V42.0 and Bilateral low back pain with sciatica, sciatica laterality unspecified M54.40 [facility] [address] [id number] [address] [place] [address] Sep, [facility] [address] [id number] [address] [place] [address] Sep, Kidney replaced by transplan t V42.0 ; Bilateral low back pain with sciatica, sciatica laterality unspecified M54.40 ; Anxiety F41.9 and Primary insomnia F51.01 [facility] [address] [id number] [address] [place] [address] Aug, [facility] [address] [id number] [address] [place] [address] Aug, [facility] [address] [id number] [address] [place] [address] Aug, Kidney transplant status Z94 .0 ; Personal history of immunosupression therapy Z92.25 ; Recurrent urinary tract infection N39.0 and Screening Z13.9 [facility] [address] [id number] [address] [place] [address] Aug, [facility] [address] [id number] [address] [place] [address] Aug, Encounter for aftercare foll owing kidney transplant Z48.22 ; Chronic radicular pain of lower back M54.16 and PND (post-nasal drip) R09.82 [facility] [address] [id number] [address] [place] [address] Jul, [facility] [address] [id number] [address] [place] [address] Jul, [facility] [address] [id number] [address] [place] [address] Jul, [facility] [address] [id number] [address] [place] [address] Jul, Kidney replaced by transplan t V42.0 ; Depressive disorder, not elsewhere classified 311 ; Anxiety state, unspecified 300.00 ; Insomnia, unspecified 780.52 ; Irritable bowel syndrome 564.1 ; Chronic lumbar pain 724.2 and GERD (gastroesophageal reflux disease) 530.81 [facility] [address] [id number] [address] [place] [address] Jul, [facility] [address] [id number] [address] [place] [address] Jun, [facility] [address] [id number] [address] [place] [address] Jun, [facility] [address] [facility] [id number] [address] [place] [phone] Jun, [facility] [address] [facility] [id number] [address] [place] [address] Jun, Kidney replaced by transplan t V42.0 [facility] [address] [facility] [id number] [address] [place] [phone] May, [facility] [address] [facility] [id number] [address] [place] [address] May, Depression with anxiety 300. 4 and Skin infection 686.9 [facility] [address] [facility] [id number] [address] [place] [phone] May, [facility] [address] [id number] [address] [place] [phone] May, Kidney replaced by transplan t V42.0 ; Recurrent UTI (urinary tract infection) 599.0 and Absence of menstruation 626.0 [facility] [address] [facility] [id number] [address] [place] [phone] May, [facility] [address] [facility] [id number] [address] [place] [address] May, Depression with anxiety 300. 4 [place] [address] [address] [place] [id number] [address] [place] [address] May, [facility] [address] [place] [id number] [address] [place] [address] Apr, [facility] [address] [place] [id number] [address] [place] [phone] Apr, [facility] [address] [place] [id number] [address] [place] [address] Apr, Depression, major, recurrent , mild 296.31 [facility] [address] [place] [id number] [address] [place] [address] Apr, Depression, major, recurrent , mild 296.31 [place] [address] [address] [place] [id number] [address] [place] [address] Apr, Cervicalgia 723.1 ; Lumbago 724.2 ; Anxiety state, unspecified 300.00 ; Nausea 787.02 ; 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 ; Recurrent UTI (urinary tract infection) 599.0 and Knee pain, bilateral 719.46 [place] [address] [address] [place] [id number] [address] [place] [address] March, Depression, major, recurrent , mild 296.31 [facility] [address] [place] [id number] [address] [place] [address] March, [facility] [address] [place] [id number] [address] [place] [address] March, [facility] [address] [place] [id number] [address] [place] [phone] March, Lumbago 724.2 ; Insomnia, un specified 780.52 ; Depressive disorder, not elsewhere classified 311 ; 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 ; Anxiety 300.00 ; Allergic rhinitis 477.9 and GERD (gastroesophageal reflux disease) 530.81 [facility] [address] [place] [id number] [address] [place] [phone] Feb, [facility] [address] [id number] [address] [place] [address], [place] [address] Feb, [facility] [address] [id number] [address] [place] [address], [place] [address] Jan, [facility] [address] [id number] [address] [place] [address], [place] [address] Jan, [facility] [address] [id number] [address] [place] [address], [place] [address] Jan, [facility] [address] [id number] [address] [place] [address], [place] [address] Jan, [facility] [address] [id number] [address] [place] [address], [place] [address] Dec, [facility] [address] [id number] [address] [place] [address], [place] [address] Dec, [facility] [address] [id number] [address] [place] [address], [place] [address] Dec, [facility] [address] [id number] [address] [place] [address], [place] [address] Dec, [facility] [address] [id number] [address] [place] [address], [place] [address] Dec, [facility] [address] [id number] [address] [place] [address], [place] [address] Dec, [facility] [address] [id number] [address] [place] [address], [place] [address] Dec, [facility] [address] [id number] [address] [place] [address], [place] [address] Nov, [facility] [address] [id number] [address] [place] [address], [place] [address] Nov, [facility] [address] [id number] [address] [place] [address], [place] [address] Nov, [facility] [address] [id number] [address] [place] [address] [address] Nov, [facility] [address] [id number] [address] [place] [address], [place] [address] Nov, [facility] [address] [id number] [address] [place] [address], [place] [address] Nov, [facility] [address] [id number] [address] [place] [address], [place] [address] Nov, [facility] [address] [id number] [address] [place] [address], [place] [address] Nov, [facility] [address] [id number] [address] [place] [address], [place] [address] Nov, [facility] [address] [id number] [address] [place] [address], [place] [address] Nov, [facility] [address] [id number] [address] [place] [address], [place] [address] Nov, [facility] [address] [id number] [address] [place] [address], [place] [address] Nov, [facility] [address] [id number] [address] [place] [address], [place] [address] Nov, [facility] [address] [id number] [address] [place] [address], [place] [address] Nov, [facility] [address] [id number] [address] [place] [address], [place] [address] Nov, [facility] [address] [id number] [address] [place] [address], [place] [address] Nov, [facility] [address] [id number] [address] [place] [address], [place] [address] Nov, [facility] [address] [id number] [address] [place] [address], [place] [address] Nov, [facility] [address] [id number] [address] [place] [address], [place] [address] Nov, [facility] [address] [id number] [address] [place] [address], [place] [address] Nov, [facility] [address] [id number] [address] [place] [address], [place] [address] Nov, [facility] [address] [id number] [address] [place] [address], [place] [address] Nov, [facility] [address] [id number] [address] [place] [address], [place] [address] Nov, [facility] [address] [id number] [address] [place] [address], [place] [address] Nov, [facility] [address] [id number] [address] [place] [address], [place] [address] Nov, [facility] [address] [id number] [address] [place] [address], [place] [address] Nov, [facility] [address] [id number] [address] [place] [address], [place] [address] Nov, [facility] [address] [id number] [address] [place] [address], [place] [address] Nov, [facility] [address] [id number] [address] [place] [address], [place] [address] Nov, [facility] [address] [id number] [address] [place] [address], [place] [address] Oct, [facility] [address] [id number] [address] [place] [address], [place] [address] Oct, [facility] [address] [id number] [address] [place] [address], [place] [address] Oct, [facility] [address] [id number] [address] [place] [address], [place] [address] Oct, [facility] [address] [id number] [address] [place] [address], [place] [address] Oct, [facility] [address] [id number] [address] [place] [address], [place] [address] Oct, [facility] [address] [id number] [address] [place] [address], [place] [address] Oct, [facility] [address] [id number] [address] [place] [address], [place] [address] Oct, [facility] [address] [id number] [address] [place] [address], [place] [address] Oct, [facility] [address] [id number] [address] [place] [address], [place] [address] Oct, [facility] [address] [id number] [address] [place] [address], [place] [address] Oct, [facility] [address] [id number] [address] [place] [address], [place] [address] Oct, [facility] [address] [id number] [address] [place] [address], [place] [address] Oct, [facility] [address] [id number] [address] [place] [address], [place] [address] Oct, [facility] [address] [id number] [address] [place] [address], [place] [address] Oct, [facility] [address] [id number] [address] [place] [address], [place] [address] Oct, [facility] [address] [id number] [address] [place] [address], [place] [address] Oct, [facility] [address] [id number] [address] [place] [address], [place] [address] Oct, [facility] [address] [id number] [address] [place] [address], [place] [address] Oct, [facility] [address] [id number] [address] [place] [address], [place] [address] 05 Oct, 2014 [facility] [address] [id number] [address] [place] [address], [place] [address] 05 Oct, 2014 [facility] [address] [id number] [address] [place] [address], [place] [address] Oct, [facility] [address] [id number] [address] [place] [address], [place] [address] Oct, [facility] [address] [id number] [address] [place] [address], [place] [address] Sep, [facility] [address] [id number] [address] [place] [address], [place] [address] Sep, [facility] [address] [id number] [address] [place] [address], [place] [address] Sep, [facility] [address] [id number] [address] [place] [address], [place] [address] Sep, [facility] [address] [id number] [address] [place] [address], [place] [address] Sep, [facility] [address] [id number] [address] [place] [address], [place] [address] Sep, [facility] [address] [id number] [address] [place] [address], [place] [address] Sep, [facility] [address] [id number] [address] [place] [address], [place] [address] Sep, [facility] [address] [id number] [address] [place] [address], [place] [address] Sep, [facility] [address] [id number] [address] [place] [address], [place] [address] Sep, [facility] [address] [id number] [address] [place] [address], [place] [address] Sep, [facility] [address] [id number] [address] [place] [address], [place] [address] Sep, [facility] [address] [id number] [address] [place] [address], [place] [address] Sep, [facility] [address] [id number] [address] [place] [address], [place] [address] Sep, [facility] [address] [id number] [address] [place] [address], [place] [address] Sep, [facility] [address] [id number] [address] [place] [address], [place] [address] Sep, [facility] [address] [id number] [address] [place] [address], [place] [address] Sep, [facility] [address] [id number] [address] [place] [address], [place] [address] Sep, [facility] [address] [id number] [address] [place] [address], [place] [address] Sep, [facility] [address] [id number] [address] [place] [address], [place] [address] Sep, [facility] [address] [id number] [address] [place] [address], [place] [address] Sep, [facility] [address] [id number] [address] [place] [address], [place] [address] Sep, [facility] [address] [id number] [address] [place] [address], [place] [address] Sep, [facility] [address] [id number] [address] [place] [address], [place] [address] Sep, [facility] [address] [id number] [address] [place] [address], [place] [address] Sep, [facility] [address] [id number] [address] [place] [address], [place] [address] Sep, [facility] [address] [id number] [address] [place] [address], [place] [address] Sep, [facility] [address] [id number] [address] [place] [address], [place] [address] Sep, [facility] [address] [id number] [address] [place] [address], [place] [address] Aug, [facility] [address] [id number] [address] [place] [address], [place] [address] Aug, [facility] [address] [id number] [address] [place] [address], [place] [address] Aug, [facility] [address] [id number] [address] [place] [address], [place] [address] Aug, [facility] [address] [id number] [address] [place] [address], [place] [address] Aug, [facility] [address] [id number] [address] [place] [address], [place] [address] Aug, [facility] [address] [id number] [address] [place] [address], [place] [address] Aug, [facility] [address] [id number] [address] [place] [address], [place] [address] Aug, [facility] [address] [id number] [address] [place] [address], [place] [address] Aug, [facility] [address] [id number] [address] [place] [address], [place] [address] Aug, [facility] [address] [id number] [address] [place] [address], [place] [address] Aug, [facility] [address] [id number] [address] [place] [id number] Aug, [facility] [address] [id number] [address] [place] [id number] Aug, [facility] [address] [id number] [address] [place] [id number] Aug, [facility] [address] [id number] [address] [place] [address], [place] [address] Aug, [facility] [address] [id number] [address] [place] [address], [place] [address] Aug, [facility] [address] [id number] [address] [place] [id number] Aug, [facility] [address] [id number] [address] [place] [id number] 17 Aug, 2013 [facility] [address] [id number] [address] [place] [address], [place] [address] 14 Aug, 2013 [facility] [address] [id number] [address] [place] [id number] 14 Aug, 2013 [facility] [address] [id number] [address] [place] [address], [place] [address] 09 Aug, 2013 [facility] [address] [id number] [address] [place] [id number] 09 Aug, 2013 [facility] [address] [id number] [address] [place] [address], [place] [address] Aug, 2013 [facility] [address] [id number] [address] [place] [address], [place] [address] Aug, 2013 [facility] [address] [id number] [address] [place] [id number] 08 Aug, 2013 [facility] [address] [id number] [address] [place] [id number] 07 Aug, 2013 [facility] [address] [id number] [address] [place] [id number] Aug, 2013 [facility] [address] [id number] [address] [place] [id number] Aug, 2013 [facility] [address] [id number] [address] [place] [id number] 07 Aug, 2013 [facility] [address] [id number] [address] [place] [id number] 30 Jul, 2013 [facility] [address] [id number] [address] [place] [id number] 30 Jul, 2013 [facility] [address] [id number] [address] [place] [id number] 29 Jul, 2013 [facility] [address] [id number] [address] [place] [id number] 29 Jul, 2013 [facility] [address] [id number] [facility] [place] [address] 19 Jul, 2013 [facility] [address] [id number] [facility] [place] [address] 19 Jul, 2013 [facility] [address] [id number] [facility] [place] [address] 18 Jul, 2013 [facility] [address] [id number] [facility] [place] [address] 18 Jul, 2013 [facility] [address] [id number] [facility] [place] [address] 17 Jul, 2013 [facility] [address] [id number] [address] [place] [address], [place] [address] 17 Jul, 2013 [facility] [address] [id number] [address] [place] [address], [place] [address] 10 Jul, 2013 [facility] [address] [id number] [address] [place] [address], [place] [address] 10 Jul, 2013 [facility] [address] [id number] [address] [place] [address], [place] [address] Jun, [facility] [address] [id number] [address] [place] [address], [place] [address] Jun, [facility] [address] [id number] [address] [place] [address], [place] [address] Jun, [facility] [address] [id number] [address] [place] [address], [place] [address] Jun, [facility] [address] [id number] [address] [place] [address], [place] [address] Jun, [facility] [address] [id number] [address] [place] [address], [place] [address] Jun, [facility] [address] [id number] [address] [place] [address], [place] [address] Jun, [facility] [address] [id number] [address] [place] [address] [address] Jun, [facility] [address] [id number] [address] [place] [id number] Jun, [facility] [address] [id number] [address] [place] [id number] Jun, [facility] [address] [id number] [address] [place] [id number] Jun, [facility] [address] [id number] [address] [place] [id number] Jun, [facility] [address] [id number] [address] [place] [id number] May, [facility] [address] [id number] [address] [place] [id number] May, [facility] [address] [id number] [address] [place] [id number] May, IMMUNIZATIONS No Known Immunizations SOCIAL HISTORY Never Assessed REASON FOR VISIT PLAN OF CARE VITAL SIGNS Height 67 in 2014-08-28 Weight 244.09 lbs 2014-08-28 Temperature 98 degrees Fahrenheit 2014-08-28 Heart Rate 78 bpm 2014-08-28 Respiratory Rate 20 2014-08-28 Blood pressure systolic 114 mmHg 2014-08-28 Blood pressure diastolic 80 mmHg 2014-08-28 MEDICATIONS Unknown Medications RESULTS No Results PROCEDURES Procedure Date Ordered Result Body Site COMPLETE CBC W/AUTO DIFF WBC Aug 28, 2014 IMMUNOASSAY, TUMOR, CA 125 Aug 28, 2014 RENAL FUNCTION PANEL Aug 28, 2014 VENIPUNCT, ROUTINE* Aug 28, 2014 INSTRUCTIONS MEDICATIONS ADMINISTERED No Known Medications MEDICAL [...]
--- OUTSIDE RECORDS SUMMARY | 2020-05-03 14:28 | XMS REPORT ---
Author Author Tracee Conrad Organization [facility] [place] Address [address] [place] [address] Care Team Providers Care Belt Splicer Name Role Phone MARVIN Conrad Unavailable PROBLEMS Type Condition ICD9-CM Code KMI06-RL Code Onset Dates Condition S tatus SNOMED Code Problem Primary insomnia F51.01 Active 397 2004 Problem Breast pain N64.4 Active 36476495 Problem History of renal transplant Z94.0 Ac tive 735389830 Problem Violation of controlled substance agreement Z91.14 Active 373491168 Problem Mild intermittent asthma without complication J45. 20 Active 064076520 Problem Screening breast examination Z12.39 A ctive 261458412 Problem Irritable bowel syndrome without diarrhea K58.9 Active 05351508 Problem Irritable bowel syndrome with diarrhea K58.0 Active [id number] ALLERGIES No Information ENCOUNTERS Encounter Location Date Diagnosis [facility] [address] [id number] [address] [place] [address] [id number] March, Dental examination Z01.20 [facility] [address] [id number] [address] [place] [address] [id number] Feb, Caries K02.9 [facility] [address] [id number] [address] [place] [address] [id number] Feb, Caries K02.9 [facility] [address] [id number] [address] [place] [address] [id number] Jan, [facility] [address] [id number] [address] [place] [address] [id number] Jan, Caries K02.9 [facility] [address] [id number] [address] [place] [address] [id number] Dec, [facility] [address] [id number] [address] [place] [address] [id number] 18 Dec, 2018 Dental examination Z01.20 an d Caries K02.9 [place] [address] [address] 14 Sep, 2016 Dental examination Z01.20 [place] [address] [address] [place] [id number] [address] [place] [id number] 08 Jan, 2016 Nausea R11.0 ; Irritable bow el syndrome without diarrhea K58.9 and History of renal transplant Z94.0 [place] [address] [id number] 2015 [place] [address] [address] 11 Dec, 2015 Breast pain N64.4 ; Screenin g breast examination Z12.39 and Mild intermittent asthma without complication J45.20 [place] [address] [id number] 10 Dec, 2015 [place] [address] [address] 09 Dec, 2015 Kidney transplant status Z94 .0 ; Personal history of immunosupression therapy Z92.25 ; Recurrent UTI N39.0 and Encounter for screening, unspecified Z13.9 [place] [address] [place] [id number] [address] [place] [phone] Oct, [place] [address] [place] [id number] [address] [place] [address] Oct, [place] [address] [id number] Oct, [place] [address] [address] Oct, Hiatal hernia K44.9 and Atyp ical chest pain R07.89 [place] [address] [id number] Oct, [place] [address] [id number] [address] [place] [address] Sep, Kidney replaced by transplan t V42.0 and Bilateral low back pain with sciatica, sciatica laterality unspecified M54.40 [facility] [address] [id number] [address] [place] [id number] Sep, [facility] [address] [id number] [address] [place] [id number] Sep, Kidney replaced by transplan t V42.0 ; Bilateral low back pain with sciatica, sciatica laterality unspecified M54.40 ; Anxiety F41.9 and Primary insomnia F51.01 [facility] [place] [address] [id number] [address] [place] [address] Aug, [facility] [place] [address] [id number] [address] [place] [id number] Aug, [facility] [place] [address] [id number] [address] [place] [address] Aug, Kidney transplant status Z94 .0 ; Personal history of immunosupression therapy Z92.25 ; Recurrent urinary tract infection N39.0 and Screening Z13.9 [facility] [place] [address] [id number] [address] [place] [address] Aug, [facility] [address] [id number] [address] [place] [id number] Aug, Encounter for aftercare foll owing kidney transplant Z48.22 ; Chronic radicular pain of lower back M54.16 and PND (post-nasal drip) R09.82 [facility] [place] [address] [id number] [address] [place] [id number] Jul, [facility] [place] [address] [id number] [address] [place] [phone] Jul, [facility] [place] [address] [id number] [address] [place] [phone] Jul, [facility] [place] [address] [id number] [address] [place] [address] Jul, Kidney replaced by transplan t V42.0 ; Depressive disorder, not elsewhere classified 311 ; Anxiety state, unspecified 300.00 ; Insomnia, unspecified 780.52 ; Irritable bowel syndrome 564.1 ; Chronic lumbar pain 724.2 and GERD (gastroesophageal reflux disease) 530.81 [facility] [place] [address] [id number] [address] [place] [phone] Jul, [facility] [place] [address] [id number] [address] [place] [phone] Jun, [facility] [place] [address] [id number] [address] [place] [address] Jun, [facility] [place] [address] [id number] [address] [place] [address] Jun, [facility] [place] [address] [facility] [id number] [address] [place] [phone] Jun, Kidney replaced by transplan t V42.0 [facility] [place] [address] [id number] [address] [place] [address] May, [facility] [place] [address] [id number] [address] [place] [phone] May, Depression with anxiety 300. 4 and Skin infection 686.9 [place] [address] [id number] [address] [place] [id number] May, [facility] [address] [id number] [address] [place] [address] May, Kidney replaced by transplan t V42.0 ; Recurrent UTI (urinary tract infection) 599.0 and Absence of menstruation 626.0 [facility] [address] [facility] [id number] [address] [place] [address] May, [facility] [place] [address] [facility] [id number] [address] [place] [address] May, Depression with anxiety 300. 4 [place] [address] [facility] [id number] [address] [place] [address] May, [facility] [place] [address] [place] [id number] [address] [place] [address] Apr, [facility] [place] [address] [facility] [id number] [address] [place] [address] Apr, [facility] [address] [place] [id number] [address] [place] [address] Apr, Depression, major, recurrent , mild 296.31 [facility] [place] [address] [place] [id number] [address] [place] [address] Apr, Depression, major, recurrent , mild 296.31 [place] [address] [address] [place] [id number] [address] [place] [address] Apr, Cervicalgia 723.1 ; Lumbago 724.2 ; Anxiety state, unspecified 300.00 ; Nausea 787.02 ; 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 ; Recurrent UTI (urinary tract infection) 599.0 and Knee pain, bilateral 719.46 [place] [address] [address] [place] [id number] [address] [place] [address] March, Depression, major, recurrent , mild 296.31 [place] [address] [address] [place] [id number] [address] [place] [address] March, [facility] [place] [address] [place] [id number] [address] [place] [phone] March, [facility] [place] [address] [place] [id number] [address] [place] [address] March, Lumbago 724.2 ; Insomnia, un specified 780.52 ; Depressive disorder, not elsewhere classified 311 ; 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 ; Anxiety 300.00 ; Allergic rhinitis 477.9 and GERD (gastroesophageal reflux disease) 530.81 [place] [address] [address] [place] [id number] [address] [place] [address] Feb, [facility] [address] [id number] [address] [place] [address], [place] [address] Feb, [facility] [address] [id number] [address] [place] [address], [place] [address] Jan, [facility] [address] [id number] [address] [place] [address], [place] [address] Jan, [facility] [address] [id number] [address] [place] [address], [place] [address] Jan, [facility] [address] [id number] [address] [place] [address], [place] [address] Jan, [facility] [address] [id number] [address] [place] [address], [place] [address] Dec, [facility] [address] [id number] [address] [place] [address], [place] [address] Dec, [facility] [address] [id number] [address] [place] [address], [place] [address] Dec, [facility] [address] [id number] [address] [place] [address], [place] [address] Dec, [facility] [address] [id number] [address] [place] [address], [place] [address] Dec, [facility] [address] [id number] [address] [place] [address], [place] [address] Dec, [facility] [address] [id number] [address] [place] [address], [place] [address] Dec, [facility] [address] [id number] [address] [place] [address], [place] [address] Nov, [facility] [address] [id number] [address] [place] [address], [place] [address] Nov, [facility] [address] [id number] [address] [place] [address], [place] [address] Nov, [facility] [address] [id number] [address] [place] [address] Nov, [facility] [address] [id number] [address] [place] [address], [place] [address] Nov, [facility] [address] [id number] [address] [place] [address], [place] [address] Nov, [facility] [address] [id number] [address] [place] [address], [place] [address] Nov, [facility] [address] [id number] [address] [place] [address], [place] [address] Nov, [facility] [address] [id number] [address] [place] [address], [place] [address] Nov, [facility] [address] [id number] [address] [place] [address], [place] [address] Nov, [facility] [address] [id number] [address] [place] [address], [place] [address] Nov, [facility] [address] [id number] [address] [place] [address], [place] [address] Nov, [facility] [address] [id number] [address] [place] [address], [place] [address] Nov, [facility] [address] [id number] [address] [place] [address], [place] [address] Nov, [facility] [address] [id number] [address] [place] [address], [place] [address] Nov, [facility] [address] [id number] [address] [place] [address], [place] [address] Nov, [facility] [address] [id number] [address] [place] [address], [place] [address] Nov, [facility] [address] [id number] [address] [place] [address], [place] [address] Nov, [facility] [address] [id number] [address] [place] [address], [place] [address] Nov, [facility] [address] [id number] [address] [place] [address], [place] [address] Nov, [facility] [address] [id number] [address] [place] [address], [place] [address] Nov, [facility] [address] [id number] [address] [place] [address], [place] [address] Nov, [facility] [address] [id number] [address] [place] [address], [place] [address] Nov, [facility] [address] [id number] [address] [place] [address], [place] [address] Nov, [facility] [address] [id number] [address] [place] [address], [place] [address] Nov, [facility] [address] [id number] [address] [place] [address], [place] [address] Nov, [facility] [address] [id number] [address] [place] [address], [place] [address] Nov, [facility] [address] [id number] [address] [place] [address], [place] [address] Nov, [facility] [address] [id number] [address] [place] [address], [place] [address] Nov, [facility] [address] [id number] [address] [place] [address], [place] [address] Oct, [facility] [address] [id number] [address] [place] [address], [place] [address] Oct, [facility] [address] [id number] [address] [place] [address], [place] [address] Oct, [facility] [address] [id number] [address] [place] [address], [place] [address] Oct, [facility] [address] [id number] [address] [place] [address], [place] [address] Oct, [facility] [address] [id number] [address] [place] [address], [place] [address] Oct, [facility] [address] [id number] [address] [place] [address], [place] [address] Oct, [facility] [address] [id number] [address] [place] [address], [place] [address] Oct, [facility] [address] [id number] [address] [place] [address], [place] [address] Oct, [facility] [address] [id number] [address] [place] [address], [place] [address] Oct, [facility] [address] [id number] [address] [place] [address], [place] [address] Oct, [facility] [address] [id number] [address] [place] [address], [place] [address] Oct, [facility] [address] [id number] [address] [place] [address], [place] [address] 17 Oct, 2014 [facility] [address] [id number] [address] [place] [address], [place] [address] 17 Oct, 2014 [facility] [address] [id number] [address] [place] [address], [place] [address] 16 Oct, 2014 [facility] [address] [id number] [address] [place] [address], [place] [address] 16 Oct, 2014 [facility] [address] [id number] [address] [place] [address], [place] [address] 13 Oct, 2014 [facility] [address] [id number] [address] [place] [address], [place] [address] Oct, [facility] [address] [id number] [address] [place] [address], [place] [address] Oct, [facility] [address] [id number] [address] [place] [address], [place] [address] 05 Oct, 2014 [facility] [address] [id number] [address] [place] [address], [place] [address] 05 Oct, 2014 [facility] [address] [id number] [address] [place] [address], [place] [address] Oct, [facility] [address] [id number] [address] [place] [address], [place] [address] Oct, [facility] [address] [id number] [address] [place] [address], [place] [address] Sep, [facility] [address] [id number] [address] [place] [address], [place] [address] Sep, [facility] [address] [id number] [address] [place] [address], [place] [address] Sep, [facility] [address] [id number] [address] [place] [address], [place] [address] Sep, [facility] [address] [id number] [address] [place] [address], [place] [address] Sep, [facility] [address] [id number] [address] [place] [address], [place] [address] Sep, [facility] [address] [id number] [address] [place] [address], [place] [address] Sep, [facility] [address] [id number] [address] [place] [address], [place] [address] Sep, [facility] [address] [id number] [address] [place] [address], [place] [address] Sep, [facility] [address] [id number] [address] [place] [address], [place] [address] Sep, [facility] [address] [id number] [address] [place] [address] Sep, [facility] [address] [id number] [address] [place] [address], [place] [address] Sep, [facility] [address] [id number] [address] [place] [address], [place] [address] Sep, [facility] [address] [id number] [address] [place] [address], [place] [address] Sep, [facility] [address] [id number] [address] [place] [address], [place] [address] Sep, [facility] [address] [id number] [address] [place] [address], [place] [address] Sep, [facility] [address] [id number] [address] [place] [address], [place] [address] Sep, [facility] [address] [id number] [address] [place] [address], [place] [address] Sep, [facility] [address] [id number] [address] [place] [address], [place] [address] Sep, [facility] [address] [id number] [address] [place] [address], [place] [address] Sep, [facility] [address] [id number] [address] [place] [address], [place] [address] Sep, [facility] [address] [id number] [address] [place] [address], [place] [address] Sep, [facility] [address] [id number] [address] [place] [address], [place] [address] Sep, [facility] [address] [id number] [address] [place] [address], [place] [address] Sep, [facility] [address] [id number] [address] [place] [address], [place] [address] Sep, [facility] [address] [id number] [address] [place] [address], [place] [address] Sep, [facility] [address] [id number] [address] [place] [address], [place] [address] Sep, [facility] [address] [id number] [address] [place] [address], [place] [address] Sep, [facility] [address] [id number] [address] [place] [address], [place] [address] Aug, [facility] [address] [id number] [address] [place] [address], [place] [address] Aug, [facility] [address] [id number] [address] [place] [address], [place] [address] Aug, [facility] [address] [id number] [address] [place] [address], [place] [address] Aug, [facility] [address] [id number] [address] [place] [address], [place] [address] Aug, [facility] [address] [id number] [address] [place] [address], [place] [address] Aug, [facility] [address] [id number] [address] [place] [address], [place] [address] Aug, [facility] [address] [id number] [address] [place] [address], [place] [address] Aug, [facility] [address] [id number] [address] [place] [address], [place] [address] Aug, [facility] [address] [id number] [address] [place] [address], [place] [address] Aug, [facility] [address] [id number] [address] [place] [address], [place] [address] Aug, [facility] [address] [id number] [address] [place] [address], [place] [address] Aug, [facility] [address] [id number] [address] [place] [address], [place] [address] Aug, [facility] [address] [id number] [address] [place] [id number] Aug, [facility] [address] [id number] [address] [place] [address], [place] [address] Aug, [facility] [address] [id number] [address] [place] [address], [place] [address] Aug, [facility] [address] [id number] [address] [place] [address], [place] [address] 17 Aug, 2014 [facility] [address] [id number] [address] [place] [address], [place] [address] 17 Aug, 2013 [facility] [address] [id number] [address] [place] [address], [place] [address] 14 Aug, 2013 [facility] [address] [id number] [address] [place] [address], [place] [address] 14 Aug, 2013 [facility] [address] [id number] [address] [place] [address], [place] [address] 09 Aug, 2013 [facility] [address] [id number] [address] [place] [address], [place] [address] 09 Aug, 2013 [facility] [address] [id number] [address] [place] [address], [place] [address] Aug, 2013 [facility] [address] [id number] [address] [place] [address], [place] [address] 09 Aug, 2013 [facility] [address] [id number] [address] [place] [address], [place] [address] 08 Aug, 2013 [facility] [address] [id number] [address] [place] [address], [place] [address] 07 Aug, 2013 [facility] [address] [id number] [address] [place] [address], [place] [address] Aug, 2013 [facility] [address] [id number] [address] [place] [address], [place] [address] Aug, 2013 [facility] [address] [id number] [address] [place] [address], [place] [address] 07 Aug, 2013 [facility] [address] [id number] [address] [place] [id number] 30 Jul, 2013 [facility] [address] [id number] [address] [place] [address], [place] [address] 30 Jul, 2013 [facility] [address] [id number] [address] [place] [address], [place] [address] 29 Jul, 2013 [facility] [address] [id number] [address] [place] [address], [place] [address] 29 Jul, 2013 [facility] [address] [id number] [address] [place] [address] 19 Jul, 2013 [facility] [address] [id number] [address] [place] [address], [place] [address] 19 Jul, 2013 [facility] [address] [id number] [address] [place], [place] [address], [place] [id number] 18 Jul, 2013 [facility] [address] [id number] [address] [place] [address], [place] [id number] 18 Jul, 2013 [facility] [address] [id number] [address] [place] [address], [place] [id number] 17 Jul, 2013 [facility] [address] [id number] [address] [place] [address], [place] [id number] 17 Jul, 2013 [facility] [address] [id number] [address] [place] [address], [place] [id number] 10 Jul, 2014 [facility] [address] [id number] [address] [place] [address], [place] [phone] 10 Jul, 2013 [facility] [address] [id number] [address] [place] [address], [place] [phone] Jun, [facility] [address] [id number] [address] [place] [address], [place] [id number] Jun, [facility] [address] [id number] [address] [place] [address], [place] [id number] Jun, [facility] [address] [id number] [address] [place] [address], [place] [phone] Jun, [facility] [address] [id number] [address] [place] [address], [place] [id number] Jun, [facility] [address] [id number] [address] [place] [address], [place] [phone] Jun, [facility] [address] [id number] [address] [place] [address], [place] [phone] Jun, [facility] [address] [id number] [address] [id number] Jun, [facility] [place] [address] [id number] [address] [place] [id number] Jun, [facility] [place] [address] [id number] [address] [place] [id number] Jun, [facility] [place] [address] [id number] [address] [place] [id number] Jun, [facility] [place] [address] [id number] [address] [place] [id number] Jun, [facility] [place] [address] [id number] [address] [place] [id number] May, [facility] [place] [address] [id number] [address] [place] [id number] May, [facility] [place] [address] [facility] [id number] [address] [place] [id number] May, IMMUNIZATIONS No Known Immunizations SOCIAL HISTORY [...]
--- OUTSIDE RECORDS SUMMARY | 2020-05-03 14:29 | XMS REPORT ---
Author Author Tracee AVILA Organization [facility] Address [address] [place] [address] Care Team Providers Care Coil Wrapper Name Role Phone SARAI AVILA Unavailable PROBLEMS Type Condition ICD9-CM Code ZAR73-OI Code Onset Dates Condition S tatus SNOMED Code Problem Primary insomnia F51.01 Active 397 2004 Problem Breast pain N64.4 Active 37908845 Problem History of renal transplant Z94.0 Ac tive 013827568 Problem Violation of controlled substance agreement Z91.14 Active 615537086 Problem Mild intermittent asthma without complication J45. 20 Active 716113943 Problem Screening breast examination Z12.39 A ctive 206299471 Problem Irritable bowel syndrome without diarrhea K58.9 Active 98156698 Problem Irritable bowel syndrome with diarrhea K58.0 Active 032547393 ALLERGIES No Information ENCOUNTERS Encounter Location Date Diagnosis [facility] [address] [id number] [place] [address] [id number] March, Dental examination Z01.20 [facility] [address] [id number] [address] [place] [address] [id number] Feb, Caries K02.9 [facility] [address] [id number] [address] [place] [address] [id number] Feb, Caries K02.9 [facility] [address] [id number] [address] [place] [address] [phone] Jan, [facility] [address] [id number] [address] [place] [address] [id number] Jan, Caries K02.9 [facility] [address] [id number] [address] [place] [address] [id number] Dec, [facility] [address] [id number] [address] [place] [address] [id number] 18 Dec, 2018 Dental examination Z01.20 an d Caries K02.9 [place] [address] [id number] 14 Sep, 2016 Dental examination Z01.20 [place] [address] [address] [place] [id number] [address] [place] [id number] 08 Jan, 2016 Nausea R11.0 ; Irritable bow el syndrome without diarrhea K58.9 and History of renal transplant Z94.0 [place] [address] [id number] 2015 [place] [address] [id number] 11 Dec, 2015 Breast pain N64.4 ; Screenin g breast examination Z12.39 and Mild intermittent asthma without complication J45.20 [place] [address] [address] 10 Dec, 2015 [place] [address] [id number] 09 Dec, 2015 Kidney transplant status Z94 .0 ; Personal history of immunosupression therapy Z92.25 ; Recurrent UTI N39.0 and Encounter for screening, unspecified Z13.9 [place] [address] [address] [place] [id number] [address] [place] [address] Oct, [place] [address] [address] [place] [id number] [address] [place] [address] Oct, [place] [address] [place] [id number] [address] [place] [address] Oct, [place] [address] [address] Oct, Hiatal hernia K44.9 and Atyp ical chest pain R07.89 [place] [address] [address] [place] [id number] [address] [place] [address] Oct, [place] [address] [id number] [address] [place] [address] Sep, Kidney replaced by transplan t V42.0 and Bilateral low back pain with sciatica, sciatica laterality unspecified M54.40 [facility] [address] [id number] [address] [place] [address] Sep, [facility] [address] [id number] [address] [place] [address] Sep, Kidney replaced by transplan t V42.0 ; Bilateral low back pain with sciatica, sciatica laterality unspecified M54.40 ; Anxiety F41.9 and Primary insomnia F51.01 [facility] [address] [id number] [address] [place] [address] Aug, [facility] [address] [id number] [address] [place] [address] Aug, [facility] [address] [id number] [address] [place] [address] Aug, Kidney transplant status Z94 .0 ; Personal history of immunosupression therapy Z92.25 ; Recurrent urinary tract infection N39.0 and Screening Z13.9 [facility] [address] [id number] [address] [place] [address] Aug, [facility] [address] [id number] [address] [place] [address] Aug, Encounter for aftercare foll owing kidney transplant Z48.22 ; Chronic radicular pain of lower back M54.16 and PND (post-nasal drip) R09.82 [facility] [address] [id number] [address] [place] [address] Jul, [facility] [address] [id number] [address] [place] [address] Jul, [facility] [address] [id number] [address] [place] [address] Jul, [facility] [address] [id number] [address] [place] [address] Jul, Kidney replaced by transplan t V42.0 ; Depressive disorder, not elsewhere classified 311 ; Anxiety state, unspecified 300.00 ; Insomnia, unspecified 780.52 ; Irritable bowel syndrome 564.1 ; Chronic lumbar pain 724.2 and GERD (gastroesophageal reflux disease) 530.81 [facility] [address] [id number] [address] [place] [phone] Jul, [facility] [address] [id number] [address] [place] [address] Jun, [facility] [address] [id number] [address] [place] [address] Jun, [facility] [address] [facility] [id number] [address] [place] [address] Jun, [facility] [address] [facility] [id number] [address] [place] [address] Jun, Kidney replaced by transplan t V42.0 [facility] [address] [facility] [id number] [address] [place] [address] May, [facility] [address] [facility] [id number] [address] [place] [address] May, Depression with anxiety 300. 4 and Skin infection 686.9 [facility] [address] [facility] [id number] [address] [place] [address] May, [facility] [address] [id number] [address] [place] [address] May, Kidney replaced by transplan t V42.0 ; Recurrent UTI (urinary tract infection) 599.0 and Absence of menstruation 626.0 [facility] [address] [facility] [id number] [address] [place] [address] May, [facility] [address] [facility] [id number] [address] [place] [address] May, Depression with anxiety 300. 4 [place] [address] [address] [place] [id number] [address] [place] [address] May, [facility] [address] [place] [id number] [address] [place] [address] Apr, [facility] [address] [place] [id number] [address] [place] [address] Apr, [facility] [address] [place] [id number] [address] [place] [address] Apr, Depression, major, recurrent , mild 296.31 [facility] [address] [place] [id number] [address] [place] [address] Apr, Depression, major, recurrent , mild 296.31 [place] [address] [address] [place] [id number] [address] [place] [address] Apr, Cervicalgia 723.1 ; Lumbago 724.2 ; Anxiety state, unspecified 300.00 ; Nausea 787.02 ; 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 ; Recurrent UTI (urinary tract infection) 599.0 and Knee pain, bilateral 719.46 [place] [address] [address] [place] [id number] [address] [place] [address] March, Depression, major, recurrent , mild 296.31 [facility] [address] [place] [id number] [address] [place] [address] March, [facility] [address] [place] [id number] [address] [place] [address] March, [facility] [address] [place] [id number] [address] [place] [address] March, Lumbago 724.2 ; Insomnia, un specified 780.52 ; Depressive disorder, not elsewhere classified 311 ; 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 ; Anxiety 300.00 ; Allergic rhinitis 477.9 and GERD (gastroesophageal reflux disease) 530.81 [facility] [address] [place] [id number] [address] [place] [address] Feb, [facility] [address] [id number] [address] [place] [address], [place] [address] Feb, [facility] [address] [id number] [address] [place] [address], [place] [address] Jan, [facility] [address] [id number] [address] [place] [address], [place] [address] Jan, [facility] [address] [id number] [address] [place] [address], [place] [address] Jan, [facility] [address] [id number] [address] [place] [address], [place] [address] Jan, [facility] [address] [id number] [address] [place] [address], [place] [address] Dec, [facility] [address] [id number] [address] [place] [address], [place] [address] Dec, [facility] [address] [id number] [address] [place] [address], [place] [address] Dec, [facility] [address] [id number] [address] [place] [address], [place] [address] Dec, [facility] [address] [id number] [address] [place] [address], [place] [address] Dec, [facility] [address] [id number] [address] [place] [address], [place] [address] Dec, [facility] [address] [id number] [address] [place] [address], [place] [address] Dec, [facility] [address] [id number] [address] [place] [address], [place] [address] Nov, [facility] [address] [id number] [address] [place] [address], [place] [address] Nov, [facility] [address] [id number] [address] [place] [address], [place] [address] Nov, [facility] [address] [id number] [address] [place] [address] [address] Nov, [facility] [address] [id number] [address] [place] [address], [place] [address] Nov, [facility] [address] [id number] [address] [place] [address], [place] [address] Nov, [facility] [address] [id number] [address] [place] [address], [place] [address] Nov, [facility] [address] [id number] [address] [place] [address], [place] [address] Nov, [facility] [address] [id number] [address] [place] [address], [place] [address] Nov, [facility] [address] [id number] [address] [place] [address], [place] [address] Nov, [facility] [address] [id number] [address] [place] [address], [place] [address] Nov, [facility] [address] [id number] [address] [place] [address], [place] [address] Nov, [facility] [address] [id number] [address] [place] [address], [place] [address] Nov, [facility] [address] [id number] [address] [place] [address], [place] [address] Nov, [facility] [address] [id number] [address] [place] [address], [place] [address] Nov, [facility] [address] [id number] [address] [place] [address], [place] [address] Nov, [facility] [address] [id number] [address] [place] [address], [place] [address] Nov, [facility] [address] [id number] [address] [place] [address], [place] [address] Nov, [facility] [address] [id number] [address] [place] [address], [place] [address] Nov, [facility] [address] [id number] [address] [place] [address], [place] [address] Nov, [facility] [address] [id number] [address] [place] [address], [place] [address] Nov, [facility] [address] [id number] [address] [place] [address], [place] [address] Nov, [facility] [address] [id number] [address] [place] [address], [place] [address] Nov, [facility] [address] [id number] [address] [place] [address], [place] [address] Nov, [facility] [address] [id number] [address] [place] [address], [place] [address] Nov, [facility] [address] [id number] [address] [place] [address], [place] [address] Nov, [facility] [address] [id number] [address] [place] [address], [place] [address] Nov, [facility] [address] [id number] [address] [place] [address], [place] [address] Nov, [facility] [address] [id number] [address] [place] [address], [place] [address] Nov, [facility] [address] [id number] [address] [place] [address], [place] [address] Oct, [facility] [address] [id number] [address] [place] [address], [place] [address] Oct, [facility] [address] [id number] [address] [place] [address], [place] [address] Oct, [facility] [address] [id number] [address] [place] [address], [place] [address] Oct, [facility] [address] [id number] [address] [place] [address], [place] [address] Oct, [facility] [address] [id number] [address] [place] [address], [place] [address] Oct, [facility] [address] [id number] [address] [place] [address], [place] [address] Oct, [facility] [address] [id number] [address] [place] [address], [place] [address] Oct, [facility] [address] [id number] [address] [place] [address], [place] [address] Oct, [facility] [address] [id number] [address] [place] [address], [place] [address] Oct, [facility] [address] [id number] [address] [place] [address], [place] [address] Oct, [facility] [address] [id number] [address] [place] [address], [place] [address] Oct, [facility] [address] [id number] [address] [place] [address], [place] [address] Oct, [facility] [address] [id number] [address] [place] [address], [place] [address] Oct, [facility] [address] [id number] [address] [place] [address], [place] [address] Oct, [facility] [address] [id number] [address] [place] [address], [place] [address] Oct, [facility] [address] [id number] [address] [place] [address], [place] [address] Oct, [facility] [address] [id number] [address] [place] [address], [place] [address] Oct, [facility] [address] [id number] [address] [place] [address], [place] [address] Oct, [facility] [address] [id number] [address] [place] [address], [place] [address] 05 Oct, 2014 [facility] [address] [id number] [address] [place] [address], [place] [address] 05 Oct, 2014 [facility] [address] [id number] [address] [place] [address], [place] [address] Oct, [facility] [address] [id number] [address] [place] [address], [place] [address] Oct, [facility] [address] [id number] [address] [place] [address], [place] [address] Sep, [facility] [address] [id number] [address] [place] [address], [place] [address] Sep, [facility] [address] [id number] [address] [place] [address], [place] [address] Sep, [facility] [address] [id number] [address] [place] [address], [place] [address] Sep, [facility] [address] [id number] [address] [place] [address], [place] [address] Sep, [facility] [address] [id number] [address] [place] [address], [place] [address] Sep, [facility] [address] [id number] [address] [place] [address], [place] [address] Sep, [facility] [address] [id number] [address] [place] [address], [place] [address] Sep, [facility] [address] [id number] [address] [place] [address], [place] [address] Sep, [facility] [address] [id number] [address] [place] [address], [place] [address] Sep, [facility] [address] [id number] [address] [place] [address], [place] [address] Sep, [facility] [address] [id number] [address] [place] [address], [place] [address] Sep, [facility] [address] [id number] [address] [place] [address], [place] [address] Sep, [facility] [address] [id number] [address] [place] [address], [place] [address] Sep, [facility] [address] [id number] [address] [place] [address], [place] [address] Sep, [facility] [address] [id number] [address] [place] [address], [place] [address] Sep, [facility] [address] [id number] [address] [place] [address], [place] [address] Sep, [facility] [address] [id number] [address] [place] [address], [place] [address] Sep, [facility] [address] [id number] [address] [place] [address], [place] [address] Sep, [facility] [address] [id number] [address] [place] [address], [place] [address] Sep, [facility] [address] [id number] [address] [place] [address], [place] [address] Sep, [facility] [address] [id number] [address] [place] [address], [place] [address] Sep, [facility] [address] [id number] [address] [place] [address], [place] [address] Sep, [facility] [address] [id number] [address] [place] [address], [place] [address] Sep, [facility] [address] [id number] [address] [place] [address], [place] [address] Sep, [facility] [address] [id number] [address] [place] [address], [place] [address] Sep, [facility] [address] [id number] [address] [place] [address], [place] [address] Sep, [facility] [address] [id number] [address] [place] [address], [place] [address] Sep, [facility] [address] [id number] [address] [place] [address], [place] [address] Aug, [facility] [address] [id number] [address] [place] [address], [place] [address] Aug, [facility] [address] [id number] [address] [place] [address], [place] [address] Aug, [facility] [address] [id number] [address] [place] [address], [place] [address] Aug, [facility] [address] [id number] [address] [place] [address], [place] [address] Aug, [facility] [address] [id number] [address] [place] [address], [place] [address] Aug, [facility] [address] [id number] [address] [place] [address], [place] [address] Aug, [facility] [address] [id number] [address] [place] [address], [place] [address] Aug, [facility] [address] [id number] [address] [place] [address], [place] [address] Aug, [facility] [address] [id number] [address] [place] [address], [place] [address] Aug, [facility] [address] [id number] [address] [place] [address], [place] [address] Aug, [facility] [address] [id number] [address] [place] [id number] Aug, [facility] [address] [id number] [address] [place] [address] Aug, [facility] [address] [id number] [address] [place] [address] Aug, [facility] [address] [id number] [address] [place] [address], [place] [address] Aug, [facility] [address] [id number] [address] [place] [address], [place] [address] Aug, [facility] [address] [id number] [address] [place] [address] Aug, [facility] [address] [id number] [address] [place] [id number] 17 Aug, 2013 [facility] [address] [id number] [address] [place] [address], [place] [address] 14 Aug, 2013 [facility] [address] [id number] [address] [place] [id number] 14 Aug, 2013 [facility] [address] [id number] [address] [place] [address], [place] [address] 09 Aug, 2013 [facility] [address] [id number] [address] [place] [id number] 09 Aug, 2013 [facility] [address] [id number] [address] [place] [address], [place] [address] Aug, 2013 [facility] [address] [id number] [address] [place] [address], [place] [address] Aug, 2013 [facility] [address] [id number] [address] [place] [id number] 08 Aug, 2013 [facility] [address] [id number] [address] [place] [id number] 07 Aug, 2013 [facility] [address] [id number] [address] [place] [address] Aug, 2013 [facility] [address] [id number] [address] [place] [address] Aug, 2013 [facility] [address] [id number] [address] [place] [id number] 07 Aug, 2013 [facility] [address] [id number] [address] [place] [id number] 30 Jul, 2013 [facility] [address] [id number] [address] [place] [id number] 30 Jul, 2013 [facility] [address] [id number] [address] [place] [id number] 29 Jul, 2013 [facility] [address] [id number] [address] [place] [id number] 29 Jul, 2013 [facility] [address] [id number] [facility] [place] [address] 19 Jul, 2013 [facility] [address] [id number] [facility] [place] [address] 19 Jul, 2013 [facility] [address] [id number] [facility] [place] [address] 18 Jul, 2013 [facility] [address] [id number] [facility] [place] [address] 18 Jul, 2013 [facility] [address] [id number] [facility] [place] [address] 17 Jul, 2013 [facility] [address] [id number] [address] [place] [address], [place] [address] 17 Jul, 2013 [facility] [address] [id number] [address] [place] [address], [place] [address] 10 Jul, 2013 [facility] [address] [id number] [address] [place] [address], [place] [address] 10 Jul, 2013 [facility] [address] [id number] [address] [place] [address], [place] [address] Jun, [facility] [address] [id number] [address] [place] [address], [place] [address] Jun, [facility] [address] [id number] [address] [place] [address], [place] [address] Jun, [facility] [address] [id number] [address] [place] [address], [place] [address] Jun, [facility] [address] [id number] [address] [place] [address], [place] [address] Jun, [facility] [address] [id number] [address] [place] [address], [place] [address] Jun, [facility] [address] [id number] [address] [place] [address], [place] [address] Jun, [facility] [address] [id number] [address] [place] [address] [address] Jun, [facility] [address] [id number] [address] [place] [id number] Jun, [facility] [address] [id number] [address] [place] [address] Jun, [facility] [address] [id number] [address] [place] [phone] Jun, [facility] [address] [id number] [address] [place] [phone] Jun, [facility] [address] [id number] [address] [place] [id number] May, [facility] [address] [id number] [address] [place] [phone] May, [facility] [address] [id number] [address] [place] [id number] May, IMMUNIZATIONS No Known Immunizations SOCIAL HISTORY Never Assessed REASON FOR VISIT PLAN OF CARE VITAL SIGNS Height 67 in 2014-09-10 Weight 245.1 lbs 2014-09-10 Temperature 97.1 degrees Fahrenheit 2014-09-10 Heart Rate 82 bpm 2014-09-10 Respiratory Rate 18 2014-09-10 Blood pressure systolic 115 mmHg 2014-09-10 Blood pressure diastolic 80 mmHg 2014-09-10 MEDICATIONS Unknown Medications RESULTS No Results PROCEDURES Procedure Date Ordered Result Body Site COMPLETE CBC W/AUTO DIFF WBC Sep 10, 2014 BASIC METABOLIC PANEL Sep 10, 2014 VENIPUNCT, ROUTINE* Sep 10, 2014 INSTRUCTIONS MEDICATIONS ADMINISTERED No Known Medications [...]
--- OUTSIDE RECORDS SUMMARY | 2020-05-03 14:29 | XMS REPORT ---
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 20 Active 866264818 Problem Screening breast examination Z12.39 A ctive 775809772 Problem Irritable bowel syndrome without diarrhea K58.9 Active 34769046 Problem Irritable bowel syndrome with diarrhea K58.0 Active [id number] ALLERGIES No Information ENCOUNTERS Encounter Location Date Diagnosis [facility] [address] [id number] [place] [address] [id number] March, Dental examination Z01.20 [facility] [address] [id number] [address] [place] [address] [id number] Feb, Caries K02.9 [facility] [address] [id number] [address] [place] [address] [id number] Feb, Caries K02.9 [facility] [address] [id number] [address] [place] [address] [id number] Jan, [facility] [address] [id number] [address] [place] [address] [id number] Jan, Caries K02.9 [facility] [address] [id number] [address] [place] [address] [id number] Dec, [facility] [address] [id number] [address] [place] [address] [id number] 18 Dec, 2018 Dental examination Z01.20 an d Caries K02.9 [place] [address] [address] 14 Sep, 2016 Dental examination Z01.20 [place] [address] [place] [id number] [address] [place] [address] 08 Jan, 2016 Nausea R11.0 ; Irritable bow el syndrome without diarrhea K58.9 and History of renal transplant Z94.0 [place] [address] [address] 2015 [place] [address] [address] 11 Dec, 2015 Breast pain N64.4 ; Screenin g breast examination Z12.39 and Mild intermittent asthma without complication J45.20 [place] [address] [address] 10 Dec, 2015 [place] [address] [address] 09 Dec, 2015 Kidney transplant status Z94 .0 ; Personal history of immunosupression therapy Z92.25 ; Recurrent UTI N39.0 and Encounter for screening, unspecified Z13.9 [place] [address] [place] [id number] [address] [place] [address] Oct, [place] [address] [place] [id number] [address] [place] [address] Oct, [place] [address] [place] [id number] [address] [place] [address] Oct, [place] [address] [address] Oct, Hiatal hernia K44.9 and Atyp ical chest pain R07.89 [place] [address] [place] [id number] [address] [place] [address] Oct, [place] [address] [id number] [address] [place] [address] Sep, Kidney replaced by transplan t V42.0 and Bilateral low back pain with sciatica, sciatica laterality unspecified M54.40 [facility] [address] [id number] [address] [place] [address] Sep, [facility] [address] [id number] [address] [place] [address] Sep, Kidney replaced by transplan t V42.0 ; Bilateral low back pain with sciatica, sciatica laterality unspecified M54.40 ; Anxiety F41.9 and Primary insomnia F51.01 [facility] [address] [id number] [address] [place] [address] Aug, [facility] [address] [id number] [address] [place] [address] Aug, [facility] [address] [id number] [address] [place] [address] Aug, Kidney transplant status Z94 .0 ; Personal history of immunosupression therapy Z92.25 ; Recurrent urinary tract infection N39.0 and Screening Z13.9 [facility] [address] [id number] [address] [place] [address] Aug, [facility] [address] [id number] [address] [place] [address] Aug, Encounter for aftercare foll owing kidney transplant Z48.22 ; Chronic radicular pain of lower back M54.16 and PND (post-nasal drip) R09.82 [facility] [address] [id number] [address] [place] [address] Jul, [facility] [address] [id number] [address] [place] [address] Jul, [facility] [address] [id number] [address] [place] [address] Jul, [facility] [address] [id number] [address] [place] [address] Jul, Kidney replaced by transplan t V42.0 ; Depressive disorder, not elsewhere classified 311 ; Anxiety state, unspecified 300.00 ; Insomnia, unspecified 780.52 ; Irritable bowel syndrome 564.1 ; Chronic lumbar pain 724.2 and GERD (gastroesophageal reflux disease) 530.81 [facility] [address] [id number] [address] [place] [address] Jul, [facility] [address] [id number] [address] [place] [address] Jun, [facility] [address] [id number] [address] [place] [address] Jun, [facility] [address] [facility] [id number] [address] [place] [address] Jun, [facility] [address] [facility] [id number] [address] [place] [address] Jun, Kidney replaced by transplan t V42.0 [facility] [address] [facility] [id number] [address] [place] [address] May, [facility] [address] [facility] [id number] [address] [place] [address] May, Depression with anxiety 300. 4 and Skin infection 686.9 [facility] [address] [facility] [id number] [address] [place] [address] May, [facility] [address] [id number] [address] [place] [address] May, Kidney replaced by transplan t V42.0 ; Recurrent UTI (urinary tract infection) 599.0 and Absence of menstruation 626.0 [facility] [address] [facility] [id number] [address] [place] [address] May, [facility] [address] [facility] [id number] [address] [place] [address] May, Depression with anxiety 300. 4 [place] [address] [place] [id number] [address] [place] [address] May, [facility] [address] [place] [id number] [address] [place] [address] Apr, [facility] [address] [place] [id number] [address] [place] [address] Apr, [facility] [address] [place] [id number] [address] [place] [address] Apr, Depression, major, recurrent , mild 296.31 [facility] [address] [place] [id number] [address] [place] [address] Apr, Depression, major, recurrent , mild 296.31 [place] [address] [place] [id number] [address] [place] [address] Apr, Cervicalgia 723.1 ; Lumbago 724.2 ; Anxiety state, unspecified 300.00 ; Nausea 787.02 ; 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 ; Recurrent UTI (urinary tract infection) 599.0 and Knee pain, bilateral 719.46 [place] [address] [place] [id number] [address] [place] [address] March, Depression, major, recurrent , mild 296.31 [facility] [address] [place] [id number] [address] [place] [address] March, [facility] [address] [place] [id number] [address] [place] [address] March, [facility] [address] [place] [id number] [address] [place] [address] March, Lumbago 724.2 ; Insomnia, un specified 780.52 ; Depressive disorder, not elsewhere classified 311 ; 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 ; Anxiety 300.00 ; Allergic rhinitis 477.9 and GERD (gastroesophageal reflux disease) 530.81 [facility] [address] [place] [id number] [address] [place] [address] Feb, [facility] [address] [id number] [address] [place] [address], [place] [address] Feb, [facility] [address] [id number] [address] [place] [address], [place] [address] Jan, [facility] [address] [id number] [address] [place] [address], [place] [address] Jan, [facility] [address] [id number] [address] [place] [address], [place] [address] Jan, [facility] [address] [id number] [address] [place] [address], [place] [address] Jan, [facility] [address] [id number] [address] [place] [address], [place] [address] Dec, [facility] [address] [id number] [address] [place] [address], [place] [address] Dec, [facility] [address] [id number] [address] [place] [address], [place] [address] Dec, [facility] [address] [id number] [address] [place] [address], [place] [address] Dec, [facility] [address] [id number] [address] [place] [address], [place] [address] Dec, [facility] [address] [id number] [address] [place] [address], [place] [address] Dec, [facility] [address] [id number] [address] [place] [address], [place] [address] Dec, [facility] [address] [id number] [address] [place] [address], [place] [address] Nov, [facility] [address] [id number] [address] [place] [address], [place] [address] Nov, [facility] [address] [id number] [address] [place] [address], [place] [address] Nov, [facility] [address] [id number] [address] [place] [address] [address] Nov, [facility] [address] [id number] [address] [place] [address], [place] [address] Nov, [facility] [address] [id number] [address] [place] [address], [place] [address] Nov, [facility] [address] [id number] [address] [place] [address], [place] [address] Nov, [facility] [address] [id number] [address] [place] [address], [place] [address] Nov, [facility] [address] [id number] [address] [place] [address], [place] [address] Nov, [facility] [address] [id number] [address] [place] [address], [place] [address] Nov, [facility] [address] [id number] [address] [place] [address], [place] [address] Nov, [facility] [address] [id number] [address] [place] [address], [place] [address] Nov, [facility] [address] [id number] [address] [place] [address], [place] [address] Nov, [facility] [address] [id number] [address] [place] [address], [place] [address] Nov, [facility] [address] [id number] [address] [place] [address], [place] [address] Nov, [facility] [address] [id number] [address] [place] [address], [place] [address] Nov, [facility] [address] [id number] [address] [place] [address], [place] [address] Nov, [facility] [address] [id number] [address] [place] [address], [place] [address] Nov, [facility] [address] [id number] [address] [place] [address], [place] [address] Nov, [facility] [address] [id number] [address] [place] [address], [place] [address] Nov, [facility] [address] [id number] [address] [place] [address], [place] [address] Nov, [facility] [address] [id number] [address] [place] [address], [place] [address] Nov, [facility] [address] [id number] [address] [place] [address], [place] [address] Nov, [facility] [address] [id number] [address] [place] [address], [place] [address] Nov, [facility] [address] [id number] [address] [place] [address], [place] [address] Nov, [facility] [address] [id number] [address] [place] [address], [place] [address] Nov, [facility] [address] [id number] [address] [place] [address], [place] [address] Nov, [facility] [address] [id number] [address] [place] [address], [place] [address] Nov, [facility] [address] [id number] [address] [place] [address], [place] [address] Nov, [facility] [address] [id number] [address] [place] [address], [place] [address] Oct, [facility] [address] [id number] [address] [place] [address], [place] [address] Oct, [facility] [address] [id number] [address] [place] [address], [place] [address] Oct, [facility] [address] [id number] [address] [place] [address], [place] [address] Oct, [facility] [address] [id number] [address] [place] [address], [place] [address] Oct, [facility] [address] [id number] [address] [place] [address], [place] [address] Oct, [facility] [address] [id number] [address] [place] [address], [place] [address] Oct, [facility] [address] [id number] [address] [place] [address], [place] [address] Oct, [facility] [address] [id number] [address] [place] [address], [place] [address] Oct, [facility] [address] [id number] [address] [place] [address], [place] [address] Oct, [facility] [address] [id number] [address] [place] [address], [place] [address] Oct, [facility] [address] [id number] [address] [place] [address], [place] [address] Oct, [facility] [address] [id number] [address] [place] [address], [place] [address] Oct, [facility] [address] [id number] [address] [place] [address], [place] [address] Oct, [facility] [address] [id number] [address] [place] [address], [place] [address] Oct, [facility] [address] [id number] [address] [place] [address], [place] [address] Oct, [facility] [address] [id number] [address] [place] [address], [place] [address] Oct, [facility] [address] [id number] [address] [place] [address], [place] [address] Oct, [facility] [address] [id number] [address] [place] [address], [place] [address] Oct, [facility] [address] [id number] [address] [place] [address], [place] [address] 05 Oct, 2014 [facility] [address] [id number] [address] [place] [address], [place] [address] 05 Oct, 2014 [facility] [address] [id number] [address] [place] [address], [place] [address] Oct, [facility] [address] [id number] [address] [place] [address], [place] [address] Oct, [facility] [address] [id number] [address] [place] [address], [place] [address] Sep, [facility] [address] [id number] [address] [place] [address], [place] [address] Sep, [facility] [address] [id number] [address] [place] [address], [place] [address] Sep, [facility] [address] [id number] [address] [place] [address], [place] [address] Sep, [facility] [address] [id number] [address] [place] [address], [place] [address] Sep, [facility] [address] [id number] [address] [place] [address], [place] [address] Sep, [facility] [address] [id number] [address] [place] [address], [place] [address] Sep, [facility] [address] [id number] [address] [place] [address], [place] [address] Sep, [facility] [address] [id number] [address] [place] [address], [place] [address] Sep, [facility] [address] [id number] [address] [place] [address], [place] [address] Sep, [facility] [address] [id number] [address] [place] [address], [place] [address] Sep, [facility] [address] [id number] [address] [place] [address], [place] [address] Sep, [facility] [address] [id number] [address] [place] [address], [place] [address] Sep, [facility] [address] [id number] [address] [place] [address], [place] [address] Sep, [facility] [address] [id number] [address] [place] [address], [place] [address] Sep, [facility] [address] [id number] [address] [place] [address], [place] [address] Sep, [facility] [address] [id number] [address] [place] [address], [place] [address] Sep, [facility] [address] [id number] [address] [place] [address], [place] [address] Sep, [facility] [address] [id number] [address] [place] [address], [place] [address] Sep, [facility] [address] [id number] [address] [place] [address], [place] [address] Sep, [facility] [address] [id number] [address] [place] [address], [place] [address] Sep, [facility] [address] [id number] [address] [place] [address], [place] [address] Sep, [facility] [address] [id number] [address] [place] [address], [place] [address] Sep, [facility] [address] [id number] [address] [place] [address], [place] [address] Sep, [facility] [address] [id number] [address] [place] [address], [place] [address] Sep, [facility] [address] [id number] [address] [place] [address], [place] [address] Sep, [facility] [address] [id number] [address] [place] [address], [place] [address] Sep, [facility] [address] [id number] [address] [place] [address], [place] [address] Sep, [facility] [address] [id number] [address] [place] [address], [place] [address] Aug, [facility] [address] [id number] [address] [place] [address], [place] [address] Aug, [facility] [address] [id number] [address] [place] [address], [place] [address] Aug, [facility] [address] [id number] [address] [place] [address], [place] [address] Aug, [facility] [address] [id number] [address] [place] [address], [place] [address] Aug, [facility] [address] [id number] [address] [place] [address], [place] [address] Aug, [facility] [address] [id number] [address] [place] [address], [place] [address] Aug, [facility] [address] [id number] [address] [place] [address], [place] [address] Aug, [facility] [address] [id number] [address] [place] [address], [place] [address] Aug, [facility] [address] [id number] [address] [place] [address], [place] [address] Aug, [facility] [address] [id number] [address] [place] [address], [place] [address] Aug, [facility] [address] [id number] [address] [place] [address] Aug, [facility] [address] [id number] [address] [place] [address] Aug, [facility] [address] [id number] [address] [place] [address] Aug, [facility] [address] [id number] [address] [place] [address], [place] [address] Aug, [facility] [address] [id number] [address] [place] [address], [place] [address] Aug, [facility] [address] [id number] [address] [place] [address] Aug, [facility] [address] [id number] [address] [place] [id number] 17 Aug, 2013 [facility] [address] [id number] [address] [place] [address], [place] [address] 14 Aug, 2013 [facility] [address] [id number] [address] [place] [id number] 14 Aug, 2013 [facility] [address] [id number] [address] [place] [address], [place] [address] 09 Aug, 2013 [facility] [address] [id number] [address] [place] [id number] 09 Aug, 2013 [facility] [address] [id number] [address] [place] [address], [place] [address] Aug, 2013 [facility] [address] [id number] [address] [place] [address], [place] [address] Aug, 2013 [facility] [address] [id number] [address] [place] [id number] 08 Aug, 2013 [facility] [address] [id number] [address] [place] [id number] 07 Aug, 2013 [facility] [address] [id number] [address] [place] [address] Aug, 2013 [facility] [address] [id number] [address] [place] [id number] Aug, 2013 [facility] [address] [id number] [address] [place] [id number] 07 Aug, 2013 [facility] [address] [id number] [address] [place] [id number] 30 Jul, 2013 [facility] [address] [id number] [address] [place] [id number] 30 Jul, 2013 [facility] [address] [id number] [address] [place] [id number] 29 Jul, 2013 [facility] [address] [id number] [address] [place] [id number] 29 Jul, 2013 [facility] [address] [id number] [facility] [place] [address] 19 Jul, 2013 [facility] [address] [id number] [facility] [place] [address] 19 Jul, 2013 [facility] [address] [id number] [facility] [place] [address] 18 Jul, 2013 [facility] [address] [id number] [facility] [place] [address] 18 Jul, 2013 [facility] [address] [id number] [facility] [place] [address] 17 Jul, 2013 [facility] [address] [id number] [address] [place] [address], [place] [address] 17 Jul, 2013 [facility] [address] [id number] [address] [place] [address], [place] [address] 10 Jul, 2013 [facility] [address] [id number] [address] [place] [address], [place] [address] 10 Jul, 2013 [facility] [address] [id number] [address] [place] [address], [place] [address] Jun, [facility] [address] [id number] [address] [place] [address], [place] [address] Jun, [facility] [address] [address] [id number] [address] [place] [address], [place] [address] Jun, [facility] [address] [id number] [address] [place] [address], [place] [address] Jun, [facility] [address] [id number] [address] [place] [address], [place] [address] Jun, [facility] [address] [id number] [address] [place] [address], [place] [address] Jun, [facility] [address] [id number] [address] [place] [address], [place] [address] Jun, [facility] [address] [id number] [address] [place] [address] [address] Jun, [facility] [address] [id number] [address] [place] [id number] Jun, [facility] [address] [id number] [address] [place] [id number] Jun, [facility] [address] [id number] [address] [place] [id number] Jun, [facility] [address] [id number] [address] [place] [id number] Jun, [facility] [address] [id number] [address] [place] [id number] May, [facility] [address] [id number] [address] [place] [id number] May, [facility] [address] [id number] [address] [place] [id number] May, IMMUNIZATIONS No Known Immunizations SOCIAL HISTORY Never Assessed REASON FOR VISIT PLAN OF CARE VITAL SIGNS Height 67 in 2014-08-23 Weight 243 lbs 2014-08-23 Temperature 98 degrees Fahrenheit 2014-08-23 Heart Rate 80 bpm 2014-08-23 Respiratory Rate 20 2014-08-23 Blood pressure systolic 110 mmHg 2014-08-23 Blood pressure diastolic 90 mmHg 2014-08-23 MEDICATIONS Unknown Medications RESULTS No Results PROCEDURES Procedure Date Ordered Result Body Site GONADOTROPIN (LH) Aug 23, 2014 GONADOTROPIN (FSH) Aug 23, 2014 VENIPUNCT, ROUTINE* Aug 23, 2014 INSTRUCTIONS MEDICATIONS ADMINISTERED No Known Medications [...]
--- OUTSIDE RECORDS SUMMARY | 2020-05-03 14:29 | XMS REPORT ---
Author Author Tracee AVILA Organization [facility] Address [address] [place] [address] Care Team Providers Care Vocational Trainer Name Role Phone SARAI AVILA Unavailable PROBLEMS Type Condition ICD9-CM Code TMY96-NC Code Onset Dates Condition S tatus SNOMED Code Problem Primary insomnia F51.01 Active 397 2004 Problem Breast pain N64.4 Active 68463016 Problem History of renal transplant Z94.0 Ac tive 545077385 Problem Violation of controlled substance agreement Z91.14 Active 472680646 Problem Mild intermittent asthma without complication J45. 20 Active 552674466 Problem Screening breast examination Z12.39 A ctive 565625378 Problem Irritable bowel syndrome without diarrhea K58.9 Active 95107975 Problem Irritable bowel syndrome with diarrhea K58.0 Active 600268633 ALLERGIES No Information ENCOUNTERS Encounter Location Date Diagnosis [facility] [address] [id number] [place] [address] [id number] March, Dental examination Z01.20 [facility] [address] [id number] [address] [place] [address] [id number] Feb, Caries K02.9 [facility] [address] [id number] [address] [place] [address] [id number] Feb, Caries K02.9 [facility] [address] [id number] [address] [place] [address] [id number] Jan, [facility] [address] [id number] [address] [place] [address] [id number] Jan, Caries K02.9 [facility] [address] [id number] [address] [place] [address] [id number] Dec, [facility] [address] [id number] [address] [place] [address] [id number] Dec, 2018 Dental examination Z01.20 an d Caries K02.9 [place] [address] [id number] 14 Sep, 2016 Dental examination Z01.20 [place] [address] [place] [id number] [address] [place] [id number] 08 Jan, 2016 Nausea R11.0 ; Irritable bow el syndrome without diarrhea K58.9 and History of renal transplant Z94.0 [place] [address] [id number] 2015 [place] [address] [id number] 11 Dec, 2015 Breast pain N64.4 ; Screenin g breast examination Z12.39 and Mild intermittent asthma without complication J45.20 [place] [address] [id number] 10 Dec, 2015 [place] [address] [address] 09 Dec, 2015 Kidney transplant status Z94 .0 ; Personal history of immunosupression therapy Z92.25 ; Recurrent UTI N39.0 and Encounter for screening, unspecified Z13.9 [place] [address] [address] [place] [id number] [address] [place] [id number] Oct, [place] [address] [place] [id number] [address] [place] [address] Oct, [place] [address] [place] [id number] [address] [place] [address] Oct, [place] [address] [id number] Oct, Hiatal hernia K44.9 and Atyp ical chest pain R07.89 [place] [address] [place] [id number] [address] [place] [address] Oct, [place] [address] [id number] [address] [place] [phone] Sep, Kidney replaced by transplan t V42.0 and Bilateral low back pain with sciatica, sciatica laterality unspecified M54.40 [facility] [address] [id number] [address] [place] [phone] Sep, [facility] [address] [id number] [address] [place] [phone] Sep, Kidney replaced by transplan t V42.0 ; Bilateral low back pain with sciatica, sciatica laterality unspecified M54.40 ; Anxiety F41.9 and Primary insomnia F51.01 [facility] [address] [id number] [address] [place] [phone] Aug, [facility] [address] [id number] [address] [place] [id number] Aug, [facility] [address] [id number] [address] [place] [address] Aug, Kidney transplant status Z94 .0 ; Personal history of immunosupression therapy Z92.25 ; Recurrent urinary tract infection N39.0 and Screening Z13.9 [facility] [address] [id number] [address] [place] [phone] Aug, [facility] [address] [id number] [address] [place] [address] Aug, Encounter for aftercare foll owing kidney transplant Z48.22 ; Chronic radicular pain of lower back M54.16 and PND (post-nasal drip) R09.82 [facility] [address] [id number] [address] [place] [address] Jul, [facility] [address] [id number] [address] [place] [address] Jul, [facility] [address] [id number] [address] [place] [address] Jul, [facility] [address] [id number] [address] [place] [address] Jul, Kidney replaced by transplan t V42.0 ; Depressive disorder, not elsewhere classified 311 ; Anxiety state, unspecified 300.00 ; Insomnia, unspecified 780.52 ; Irritable bowel syndrome 564.1 ; Chronic lumbar pain 724.2 and GERD (gastroesophageal reflux disease) 530.81 [facility] [address] [id number] [address] [place] [id number] Jul, [facility] [address] [id number] [address] [place] [phone] Jun, [facility] [address] [id number] [address] [place] [phone] Jun, [facility] [address] [facility] [id number] [address] [place] [address] Jun, [facility] [address] [facility] [id number] [address] [place] [phone] Jun, Kidney replaced by transplan t V42.0 [facility] [address] [facility] [id number] [address] [place] [phone] May, [facility] [address] [facility] [id number] [address] [place] [phone] May, Depression with anxiety 300. 4 and Skin infection 686.9 [facility] [address] [facility] [id number] [address] [place] [address] May, [facility] [address] [id number] [address] [place] [phone] May, Kidney replaced by transplan t V42.0 ; Recurrent UTI (urinary tract infection) 599.0 and Absence of menstruation 626.0 [facility] [address] [facility] [id number] [address] [place] [phone] May, [facility] [address] [facility] [id number] [address] [place] [id number] May, Depression with anxiety 300. 4 [place] [address] [place] [id number] [address] [place] [id number] May, [facility] [address] [place] [id number] [address] [place] [phone] Apr, [facility] [address] [place] [id number] [address] [place] [phone] Apr, [facility] [address] [place] [id number] [address] [place] [id number] Apr, Depression, major, recurrent , mild 296.31 [facility] [address] [place] [id number] [address] [place] [id number] Apr, Depression, major, recurrent , mild 296.31 [place] [address] [place] [id number] [address] [place] [id number] Apr, Cervicalgia 723.1 ; Lumbago 724.2 ; Anxiety state, unspecified 300.00 ; Nausea 787.02 ; 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 ; Recurrent UTI (urinary tract infection) 599.0 and Knee pain, bilateral 719.46 [place] [address] [place] [id number] [address] [place] [id number] March, Depression, major, recurrent , mild 296.31 [facility] [address] [place] [id number] [address] [place] [id number] March, [facility] [address] [place] [id number] [address] [place] [phone] March, [facility] [address] [place] [id number] [address] [place] [address] March, Lumbago 724.2 ; Insomnia, un specified 780.52 ; Depressive disorder, not elsewhere classified 311 ; 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 ; Anxiety 300.00 ; Allergic rhinitis 477.9 and GERD (gastroesophageal reflux disease) 530.81 [facility] [address] [place] [id number] [address] [place] [id number] Feb, [facility] [address] [id number] [address] [place] [address], [place] [address] Feb, [facility] [address] [id number] [address] [place] [address], [place] [address] Jan, [facility] [address] [id number] [address] [place] [address], [place] [address] Jan, [facility] [address] [id number] [address] [place] [address], [place] [address] Jan, [facility] [address] [id number] [address] [place] [address], [place] [address] Jan, [facility] [address] [id number] [address] [place] [address], [place] [address] Dec, [facility] [address] [id number] [address] [place] [address], [place] [address] Dec, [facility] [address] [id number] [address] [place] [address], [place] [address] Dec, [facility] [address] [id number] [address] [place] [address], [place] [address] Dec, [facility] [address] [id number] [address] [place] [address], [place] [address] Dec, [facility] [address] [id number] [address] [place] [address], [place] [address] Dec, [facility] [address] [id number] [address] [place] [address], [place] [address] Dec, [facility] [address] [id number] [address] [place] [address], [place] [address] Nov, [facility] [address] [id number] [address] [place] [address], [place] [address] Nov, [facility] [address] [id number] [address] [place] [address], [place] [address] Nov, [facility] [address] [id number] [address] [place] [address] [address] Nov, [facility] [address] [id number] [address] [place] [address], [place] [address] Nov, [facility] [address] [id number] [address] [place] [address], [place] [address] Nov, [facility] [address] [id number] [address] [place] [address], [place] [address] Nov, [facility] [address] [id number] [address] [place] [address], [place] [address] Nov, [facility] [address] [id number] [address] [place] [address], [place] [address] Nov, [facility] [address] [id number] [address] [place] [address], [place] [address] Nov, [facility] [address] [id number] [address] [place] [address], [place] [address] Nov, [facility] [address] [id number] [address] [place] [address], [place] [address] Nov, [facility] [address] [id number] [address] [place] [address], [place] [address] Nov, [facility] [address] [id number] [address] [place] [address], [place] [address] Nov, [facility] [address] [id number] [address] [place] [address], [place] [address] Nov, [facility] [address] [id number] [address] [place] [address], [place] [address] Nov, [facility] [address] [id number] [address] [place] [address], [place] [address] Nov, [facility] [address] [id number] [address] [place] [address], [place] [address] Nov, [facility] [address] [id number] [address] [place] [address], [place] [address] Nov, [facility] [address] [id number] [address] [place] [address], [place] [address] Nov, [facility] [address] [id number] [address] [place] [address], [place] [address] Nov, [facility] [address] [id number] [address] [place] [address], [place] [address] Nov, [facility] [address] [id number] [address] [place] [address], [place] [address] Nov, [facility] [address] [id number] [address] [place] [address], [place] [address] Nov, [facility] [address] [id number] [address] [place] [address], [place] [address] Nov, [facility] [address] [id number] [address] [place] [address], [place] [address] Nov, [facility] [address] [id number] [address] [place] [address], [place] [address] Nov, [facility] [address] [id number] [address] [place] [address], [place] [address] Nov, [facility] [address] [id number] [address] [place] [address], [place] [address] Nov, [facility] [address] [id number] [address] [place] [address], [place] [address] Oct, [facility] [address] [id number] [address] [place] [address], [place] [address] Oct, [facility] [address] [id number] [address] [place] [address], [place] [address] Oct, [facility] [address] [id number] [address] [place] [address], [place] [address] Oct, [facility] [address] [id number] [address] [place] [address], [place] [address] Oct, [facility] [address] [id number] [address] [place] [address], [place] [address] Oct, [facility] [address] [id number] [address] [place] [address], [place] [address] Oct, [facility] [address] [id number] [address] [place] [address], [place] [address] Oct, [facility] [address] [id number] [address] [place] [address], [place] [address] Oct, [facility] [address] [id number] [address] [place] [address], [place] [address] Oct, [facility] [address] [id number] [address] [place] [address], [place] [address] Oct, [facility] [address] [id number] [address] [place] [address], [place] [address] Oct, [facility] [address] [id number] [address] [place] [address], [place] [address] Oct, [facility] [address] [id number] [address] [place] [address], [place] [address] Oct, [facility] [address] [id number] [address] [place] [address], [place] [address] Oct, [facility] [address] [id number] [address] [place] [address], [place] [address] Oct, [facility] [address] [id number] [address] [place] [address], [place] [address] Oct, [facility] [address] [id number] [address] [place] [address], [place] [address] Oct, [facility] [address] [id number] [address] [place] [address], [place] [address] Oct, [facility] [address] [id number] [address] [place] [address], [place] [address] 05 Oct, 2014 [facility] [address] [id number] [address] [place] [address], [place] [address] 05 Oct, 2014 [facility] [address] [id number] [address] [place] [address], [place] [address] Oct, [facility] [address] [id number] [address] [place] [address], [place] [address] Oct, [facility] [address] [id number] [address] [place] [address], [place] [address] Sep, [facility] [address] [id number] [address] [place] [address], [place] [address] Sep, [facility] [address] [id number] [address] [place] [address], [place] [address] Sep, [facility] [address] [id number] [address] [place] [address], [place] [address] Sep, [facility] [address] [id number] [address] [place] [address], [place] [address] Sep, [facility] [address] [id number] [address] [place] [address], [place] [address] Sep, [facility] [address] [id number] [address] [place] [address], [place] [address] Sep, [facility] [address] [id number] [address] [place] [address], [place] [address] Sep, [facility] [address] [id number] [address] [place] [address], [place] [address] Sep, [facility] [address] [id number] [address] [place] [address], [place] [address] Sep, [facility] [address] [id number] [address] [place] [address], [place] [address] Sep, [facility] [address] [id number] [address] [place] [address], [place] [address] Sep, [facility] [address] [id number] [address] [place] [address], [place] [address] Sep, [facility] [address] [id number] [address] [place] [address], [place] [address] Sep, [facility] [address] [id number] [address] [place] [address], [place] [address] Sep, [facility] [address] [id number] [address] [place] [address], [place] [address] Sep, [facility] [address] [id number] [address] [place] [address], [place] [address] Sep, [facility] [address] [id number] [address] [place] [address], [place] [address] Sep, [facility] [address] [id number] [address] [place] [address], [place] [address] Sep, [facility] [address] [id number] [address] [place] [address], [place] [address] Sep, [facility] [address] [id number] [address] [place] [address], [place] [address] Sep, [facility] [address] [id number] [address] [place] [address], [place] [address] Sep, [facility] [address] [id number] [address] [place] [address], [place] [address] Sep, [facility] [address] [id number] [address] [place] [address], [place] [address] Sep, [facility] [address] [id number] [address] [place] [address], [place] [address] Sep, [facility] [address] [id number] [address] [place] [address], [place] [address] Sep, [facility] [address] [id number] [address] [place] [address], [place] [address] Sep, [facility] [address] [id number] [address] [place] [address], [place] [address] Sep, [facility] [address] [id number] [address] [place] [address], [place] [address] Aug, [facility] [address] [id number] [address] [place] [address], [place] [address] Aug, [facility] [address] [id number] [address] [place] [address], [place] [address] Aug, [facility] [address] [id number] [address] [place] [address], [place] [address] Aug, [facility] [address] [id number] [address] [place] [address], [place] [address] Aug, [facility] [address] [id number] [address] [place] [address], [place] [address] Aug, [facility] [address] [id number] [address] [place] [address], [place] [address] Aug, [facility] [address] [id number] [address] [place] [address], [place] [address] Aug, [facility] [address] [id number] [address] [place] [address], [place] [address] Aug, [facility] [address] [id number] [address] [place] [address], [place] [address] Aug, [facility] [address] [id number] [address] [place] [address], [place] [address] Aug, [facility] [address] [id number] [address] [place] [id number] Aug, [facility] [address] [id number] [address] [place] [id number] Aug, [facility] [address] [id number] [address] [place] [id number] Aug, [facility] [address] [id number] [address] [place] [address], [place] [address] Aug, [facility] [address] [id number] [address] [place] [address], [place] [address] Aug, [facility] [address] [id number] [address] [place] [id number] Aug, [facility] [address] [id number] [address] [place] [id number] 17 Aug, 2013 [facility] [address] [id number] [address] [place] [address], [place] [address] 14 Aug, 2013 [facility] [address] [id number] [address] [place] [id number] 14 Aug, 2013 [facility] [address] [id number] [address] [place] [address], [place] [address] 09 Aug, 2013 [facility] [address] [id number] [address] [place] [id number] 09 Aug, 2013 [facility] [address] [id number] [address] [place] [address], [place] [address] Aug, 2013 [facility] [address] [id number] [address] [place] [address], [place] [address] Aug, 2013 [facility] [address] [id number] [address] [place] [id number] 08 Aug, 2013 [facility] [address] [id number] [address] [place] [id number] 07 Aug, 2013 [facility] [address] [id number] [address] [place] [id number] Aug, 2013 [facility] [address] [id number] [address] [place] [id number] Aug, 2013 [facility] [address] [id number] [address] [place] [id number] 07 Aug, 2013 [facility] [address] [id number] [address] [place] [id number] 30 Jul, 2013 [facility] [address] [id number] [address] [place] [id number] 30 Jul, 2013 [facility] [address] [id number] [address] [place] [phone] 29 Jul, 2013 [facility] [address] [id number] [address] [place] [id number] 29 Jul, 2013 [facility] [address] [id number] [facility] [place] [address] 19 Jul, 2013 [facility] [address] [id number] [address] [place] [address] 19 Jul, 2013 [facility] [address] [id number] [address] [place] [address] 18 Jul, 2013 [facility] [address] [id number] [address] [place] [address] 18 Jul, 2013 [facility] [address] [id number] [address] [place] [address] 17 Jul, 2013 [facility] [address] [id number] [address] [place] [address], [place] [address] 17 Jul, 2013 [facility] [address] [id number] [address] [place] [address], [place] [address] 10 Jul, 2013 [facility] [address] [id number] [address] [place] [address], [place] [address] 10 Jul, 2013 [facility] [address] [id number] [address] [place] [address], [place] [address] Jun, [facility] [address] [id number] [address] [place] [address], [place] [address] Jun, [facility] [address] [id number] [address] [place] [address], [place] [address] Jun, [facility] [address] [id number] [address] [place] [address], [place] [address] Jun, [facility] [address] [id number] [address] [place] [address], [place] [address] Jun, [facility] [address] [id number] [address] [place] [address], [place] [address] Jun, [facility] [address] [id number] [address] [place] [address], [place] [address] Jun, [facility] [address] [id number] [address] [place] [address] [address] Jun, [facility] [address] [id number] [address] [place] [id number] Jun, [facility] [address] [id number] [address] [place] [id number] Jun, [facility] [address] [id number] [address] [place] [id number] Jun, [facility] [address] [id number] [address] [place] [phone] Jun, [facility] [address] [id number] [address] [place] [phone] May, [facility] [address] [id number] [address] [place] [phone] May, [facility] [address] [facility] [id number] [address] [place] [phone] May, IMMUNIZATIONS No Known Immunizations SOCIAL HISTORY [...]
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
--- OUTSIDE RECORDS SUMMARY | 2020-05-03 14:30 | XMS REPORT ---
Author Author Tracee AVILA Organization [facility] [place] Address [address] [place] [address] Care Team Providers Care Risk Specialist Name Role Phone SARAI AVILA Unavailable PROBLEMS Type Condition ICD9-CM Code PLO49-ZC Code Onset Dates Condition S tatus SNOMED Code Problem Primary insomnia F51.01 Active 397 2004 Problem Breast pain N64.4 Active 26786628 Problem History of renal transplant Z94.0 Ac tive 641429344 Problem Violation of controlled substance agreement Z91.14 Active 825457369 Problem Mild intermittent asthma without complication J45. 20 Active 354667285 Problem Screening breast examination Z12.39 A ctive 809386129 Problem Irritable bowel syndrome without diarrhea K58.9 Active 75115471 Problem Irritable bowel syndrome with diarrhea K58.0 Active 900878941 ALLERGIES No Information ENCOUNTERS Encounter Location Date Diagnosis [facility] [address] [id number] [place] [address] [id number] March, Dental examination Z01.20 [facility] [address] [id number] [address] [place] [address] [id number] Feb, Caries K02.9 [facility] [address] [id number] [address] [place] [address] [id number] Feb, Caries K02.9 [facility] [address] [id number] [address] [place] [address] [id number] Jan, [facility] [address] [id number] [address] [place] [address] [id number] Jan, Caries K02.9 [facility] [address] [id number] [address] [place] [address] [id number] Dec, [facility] [address] [id number] [address] [place] [address] [id number] 18 Dec, 2018 Dental examination Z01.20 an d Caries K02.9 [place] [address] [id number] 14 Sep, 2016 Dental examination Z01.20 [place] [address] [place] [id number] [address] [place] [id number] 08 Jan, 2016 Nausea R11.0 ; Irritable bow el syndrome without diarrhea K58.9 and History of renal transplant Z94.0 [place] [address] [id number] 2015 [place] [address] [address] 11 Dec, 2015 Breast pain N64.4 ; Screenin g breast examination Z12.39 and Mild intermittent asthma without complication J45.20 [place] [address] [id number] 10 Dec, 2015 [place] [address] [address] 09 Dec, 2015 Kidney transplant status Z94 .0 ; Personal history of immunosupression therapy Z92.25 ; Recurrent UTI N39.0 and Encounter for screening, unspecified Z13.9 [place] [address] [place] [id number] [address] [place] [address] Oct, [place] [address] [place] [id number] [address] [place] [address] Oct, [place] [address] [place] [id number] [address] [place] [address] Oct, [place] [address] [address] Oct, Hiatal hernia K44.9 and Atyp ical chest pain R07.89 [place] [address] [place] [id number] [address] [place] [address] Oct, [place] [address] [id number] [address] [place] [address] Sep, Kidney replaced by transplan t V42.0 and Bilateral low back pain with sciatica, sciatica laterality unspecified M54.40 [facility] [place] [address] [id number] [address] [place] [phone] Sep, [facility] [place] [address] [id number] [address] [place] [address] Sep, Kidney replaced by transplan t V42.0 ; Bilateral low back pain with sciatica, sciatica laterality unspecified M54.40 ; Anxiety F41.9 and Primary insomnia F51.01 [facility] [place] [address] [id number] [address] [place] [address] Aug, [facility] [place] [address] [id number] [address] [place] [address] Aug, [facility] [place] [address] [id number] [address] [place] [address] Aug, Kidney transplant status Z94 .0 ; Personal history of immunosupression therapy Z92.25 ; Recurrent urinary tract infection N39.0 and Screening Z13.9 [facility] [place] [address] [id number] [address] [place] [address] Aug, [facility] [place] [address] [id number] [address] [place] [address] Aug, Encounter for aftercare foll owing kidney transplant Z48.22 ; Chronic radicular pain of lower back M54.16 and PND (post-nasal drip) R09.82 [facility] [place] [address] [id number] [address] [place] [address] Jul, [facility] [place] [address] [id number] [address] [place] [address] Jul, [facility] [place] [address] [id number] [address] [place] [address] Jul, [facility] [place] [address] [id number] [address] [place] [address] Jul, Kidney replaced by transplan t V42.0 ; Depressive disorder, not elsewhere classified 311 ; Anxiety state, unspecified 300.00 ; Insomnia, unspecified 780.52 ; Irritable bowel syndrome 564.1 ; Chronic lumbar pain 724.2 and GERD (gastroesophageal reflux disease) 530.81 [facility] [place] [address] [id number] [address] [place] [address] Jul, [facility] [place] [address] [id number] [address] [place] [address] Jun, [facility] [place] [address] [id number] [address] [place] [address] Jun, [facility] [place] [address] [facility] [id number] [address] [place] [address] Jun, [facility] [place] [address] [facility] [id number] [address] [place] [address] Jun, Kidney replaced by transplan t V42.0 [facility] [place] [address] [facility] [id number] [address] [place] [address] May, [facility] [place] [address] [facility] [id number] [address] [place] [address] May, Depression with anxiety 300. 4 and Skin infection 686.9 [facility] [place] [address] [facility] [id number] [address] [place] [address] May, [facility] [place] [address] [id number] [address] [place] [address] May, Kidney replaced by transplan t V42.0 ; Recurrent UTI (urinary tract infection) 599.0 and Absence of menstruation 626.0 [facility] [place] [address] [facility] [id number] [address] [place] [address] May, [facility] [place] [address] [facility] [id number] [address] [place] [address] May, Depression with anxiety 300. 4 [place] [address] [place] [id number] [address] [place] [address] May, [facility] [place] [address] [place] [id number] [address] [place] [address] Apr, [facility] [place] [address] [place] [id number] [address] [place] [address] Apr, [facility] [place] [address] [place] [id number] [address] [place] [address] Apr, Depression, major, recurrent , mild 296.31 [facility] [place] [address] [place] [id number] [address] [place] [address] Apr, Depression, major, recurrent , mild 296.31 [place] [address] [place] [id number] [address] [place] [address] Apr, Cervicalgia 723.1 ; Lumbago 724.2 ; Anxiety state, unspecified 300.00 ; Nausea 787.02 ; 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 ; Recurrent UTI (urinary tract infection) 599.0 and Knee pain, bilateral 719.46 [place] [address] [place] [id number] [address] [place] [address] March, Depression, major, recurrent , mild 296.31 [facility] [place] [address] [place] [id number] [address] [place] [address] March, [facility] [place] [address] [place] [id number] [address] [place] [address] March, [facility] [place] [address] [place] [id number] [address] [place] [address] March, Lumbago 724.2 ; Insomnia, un specified 780.52 ; Depressive disorder, not elsewhere classified 311 ; 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 ; Anxiety 300.00 ; Allergic rhinitis 477.9 and GERD (gastroesophageal reflux disease) 530.81 [facility] [place] [address] [place] [id number] [address] [place] [address] Feb, [facility] [place] [address] [id number] [address] [place] [address], [place] [address] Feb, [facility] [address] [id number] [address] [place] [address], [place] [address] Jan, [facility] [address] [id number] [address] [place] [address], [place] [address] Jan, [facility] [address] [id number] [address] [place] [address], [place] [address] Jan, [facility] [address] [id number] [address] [place] [address], [place] [address] Jan, [facility] [address] [id number] [address] [place] [address], [place] [address] Dec, [facility] [address] [id number] [address] [place] [address], [place] [address] Dec, [facility] [address] [id number] [address] [place] [address], [place] [address] Dec, [facility] [address] [id number] [address] [place] [address], [place] [address] Dec, [facility] [address] [id number] [address] [place] [address], [place] [address] Dec, [facility] [address] [id number] [address] [place] [address], [place] [address] Dec, [facility] [address] [id number] [address] [place] [address], [place] [address] Dec, [facility] [address] [id number] [address] [place] [address], [place] [address] Nov, [facility] [address] [id number] [address] [place] [address], [place] [address] Nov, [facility] [address] [id number] [address] [place] [address], [place] [address] Nov, [facility] [address] [id number] [address] [place], [place] [address] [address] Nov, [facility] [address] [id number] [address] [place] [address], [place] [address] Nov, [facility] [address] [id number] [address] [place] [address], [place] [address] Nov, [facility] [address] [id number] [address] [place] [address], [place] [address] Nov, [facility] [address] [id number] [address] [place] [address], [place] [address] Nov, [facility] [address] [id number] [address] [place] [address], [place] [address] Nov, [facility] [address] [id number] [address] [place] [address], [place] [address] Nov, [facility] [address] [id number] [address] [place] [address], [place] [address] Nov, [facility] [address] [id number] [address] [place] [address], [place] [address] Nov, [facility] [address] [id number] [address] [place] [address], [place] [address] Nov, [facility] [address] [id number] [address] [place] [address], [place] [address] Nov, [facility] [address] [id number] [address] [place] [address], [place] [address] Nov, [facility] [address] [id number] [address] [place] [address], [place] [address] Nov, [facility] [address] [id number] [address] [place] [address], [place] [address] Nov, [facility] [address] [id number] [address] [place] [address], [place] [address] Nov, [facility] [address] [id number] [address] [place] [address], [place] [address] Nov, [facility] [address] [id number] [address] [place] [address], [place] [address] Nov, [facility] [address] [id number] [address] [place] [address], [place] [address] Nov, [facility] [address] [id number] [address] [place] [address], [place] [address] Nov, [facility] [address] [id number] [address] [place] [address], [place] [address] Nov, [facility] [address] [id number] [address] [place] [address], [place] [address] Nov, [facility] [address] [id number] [address] [place] [address], [place] [address] Nov, [facility] [address] [id number] [address] [place] [address], [place] [address] Nov, [facility] [address] [id number] [address] [place] [address], [place] [address] Nov, [facility] [address] [id number] [address] [place] [address], [place] [address] Nov, [facility] [address] [id number] [address] [place] [address], [place] [address] Nov, [facility] [address] [id number] [address] [place] [address], [place] [address] Oct, [facility] [address] [id number] [address] [place] [address], [place] [address] Oct, [facility] [address] [id number] [address] [place] [address], [place] [address] Oct, [facility] [address] [id number] [address] [place] [address], [place] [address] Oct, [facility] [address] [id number] [address] [place] [address], [place] [address] Oct, [facility] [address] [id number] [address] [place] [address], [place] [address] Oct, [facility] [address] [id number] [address] [place] [address], [place] [address] Oct, [facility] [address] [id number] [address] [place] [address], [place] [address] Oct, [facility] [address] [id number] [address] [place] [address], [place] [address] Oct, [facility] [address] [id number] [address] [place] [address], [place] [address] Oct, [facility] [address] [id number] [address] [place] [address], [place] [address] Oct, [facility] [address] [id number] [address] [place] [address], [place] [address] Oct, [facility] [address] [id number] [address] [place] [address], [place] [address] Oct, [facility] [address] [id number] [address] [place] [address], [place] [address] Oct, [facility] [address] [id number] [address] [place] [address], [place] [address] Oct, [facility] [address] [id number] [address] [place] [address], [place] [address] Oct, [facility] [address] [id number] [address] [place] [address], [place] [address] Oct, [facility] [address] [id number] [address] [place] [address], [place] [address] Oct, [facility] [address] [id number] [address] [place] [address], [place] [address] Oct, [facility] [address] [id number] [address] [place] [address], [place] [address] 05 Oct, 2014 [facility] [address] [id number] [address] [place] [address], [place] [address] 05 Oct, 2014 [facility] [address] [id number] [address] [place] [address], [place] [address] Oct, [facility] [address] [id number] [address] [place] [address], [place] [address] Oct, [facility] [address] [id number] [address] [place] [address], [place] [address] Sep, [facility] [address] [id number] [address] [place] [address], [place] [address] Sep, [facility] [address] [id number] [address] [place] [address], [place] [address] Sep, [facility] [address] [id number] [address] [place] [address], [place] [address] Sep, [facility] [address] [id number] [address] [place] [address], [place] [address] Sep, [facility] [address] [id number] [address] [place] [address], [place] [address] Sep, [facility] [address] [id number] [address] [place] [address], [place] [address] Sep, [facility] [address] [id number] [address] [place] [address], [place] [address] Sep, [facility] [address] [id number] [address] [place] [address], [place] [address] Sep, [facility] [address] [id number] [address] [place] [address], [place] [address] Sep, [facility] [address] [id number] [address] [place] [address], [place] [address] Sep, [facility] [address] [id number] [address] [place] [address], [place] [address] Sep, [facility] [address] [id number] [address] [place] [address], [place] [address] Sep, [facility] [address] [id number] [address] [place] [address], [place] [address] Sep, [facility] [address] [id number] [address] [place] [address], [place] [address] Sep, [facility] [address] [id number] [address] [place] [address], [place] [address] Sep, [facility] [address] [id number] [address] [place] [address], [place] [address] Sep, [facility] [address] [id number] [address] [place] [address], [place] [address] Sep, [facility] [address] [id number] [address] [place] [address], [place] [address] Sep, [facility] [address] [id number] [address] [place] [address], [place] [address] Sep, [facility] [address] [id number] [address] [place] [address], [place] [address] Sep, [facility] [address] [id number] [address] [place] [address], [place] [address] Sep, [facility] [address] [id number] [address] [place] [address], [place] [address] Sep, [facility] [address] [id number] [address] [place] [address], [place] [address] Sep, [facility] [address] [id number] [address] [place] [address], [place] [address] Sep, [facility] [address] [id number] [address] [place] [address], [place] [address] Sep, [facility] [address] [id number] [address] [place] [address], [place] [address] Sep, [facility] [address] [id number] [address] [place] [address], [place] [address] Sep, [facility] [address] [id number] [address] [place] [address], [place] [address] Aug, [facility] [address] [id number] [address] [place] [address], [place] [address] Aug, [facility] [address] [id number] [address] [place] [address], [place] [address] Aug, [facility] [address] [id number] [address] [place] [address], [place] [address] Aug, [facility] [address] [id number] [address] [place] [address], [place] [address] Aug, [facility] [address] [id number] [address] [place] [address], [place] [address] Aug, [facility] [address] [id number] [address] [place] [address], [place] [address] Aug, [facility] [address] [id number] [address] [place] [address], [place] [address] Aug, [facility] [address] [id number] [address] [place] [address], [place] [address] Aug, [facility] [address] [id number] [address] [place] [address], [place] [address] Aug, [facility] [address] [id number] [address] [place] [address], [place] [address] Aug, [facility] [address] [id number] [address] [place] [id number] Aug, [facility] [address] [id number] [address] [place] [address] Aug, [facility] [address] [id number] [address] [place] [id number] Aug, [facility] [address] [id number] [address] [place] [address], [place] [address] Aug, [facility] [address] [id number] [address] [place] [address], [place] [address] Aug, [facility] [address] [id number] [address] [place] [address] Aug, [facility] [address] [id number] [address] [place] [id number] 17 Aug, 2013 [facility] [address] [id number] [address] [place] [address], [place] [address] 14 Aug, 2013 [facility] [address] [id number] [address] [place] [id number] 14 Aug, 2013 [facility] [address] [id number] [address] [place] [address], [place] [address] 09 Aug, 2013 [facility] [address] [id number] [address] [place] [id number] 09 Aug, 2013 [facility] [address] [id number] [address] [place] [address], [place] [address] Aug, 2013 [facility] [address] [id number] [address] [place] [address], [place] [address] Aug, 2013 [facility] [address] [id number] [address] [place] [id number] 08 Aug, 2013 [facility] [address] [id number] [address] [place] [id number] 07 Aug, 2013 [facility] [address] [id number] [address] [place] [id number] Aug, 2013 [facility] [address] [id number] [address] [place] [id number] Aug, 2013 [facility] [address] [id number] [address] [place] [id number] 07 Aug, 2013 [facility] [address] [id number] [address] [place] [id number] 30 Jul, 2013 [facility] [address] [id number] [address] [place] [id number] 30 Jul, 2013 [facility] [address] [id number] [address] [place] [id number] 29 Jul, 2013 [facility] [address] [id number] [address] [place] [id number] 29 Jul, 2013 [facility] [address] [id number] [address] [place] [address] 19 Jul, 2013 [facility] [address] [id number] [address] [place] [address] 19 Jul, 2013 [facility] [address] [id number] [address] [place] [address] 18 Jul, 2013 [facility] [address] [id number] [address] [place] [address] 18 Jul, 2013 [facility] [address] [id number] [address] [place] [address] 17 Jul, 2013 [facility] [address] [id number] [address] [place] [address], [place] [address] 17 Jul, 2013 [facility] [address] [id number] [address] [place] [address], [place] [address] 10 Jul, 2013 [facility] [address] [id number] [address] [place] [address], [place] [address] 10 Jul, 2013 [facility] [address] [id number] [address] [place] [address], [place] [address] Jun, [facility] [address] [id number] [address] [place] [address], [place] [address] Jun, [facility] [address] [id number] [address] [place] [address], [place] [address] Jun, [facility] [address] [id number] [address] [place] [address], [place] [address] Jun, [facility] [address] [id number] [address] [place] [address], [place] [id number] Jun, [facility] [address] [id number] [address] [place] [address], [place] [id number] Jun, [facility] [address] [id number] [address] [place] [address], [place] [id number] Jun, [facility] [address] [id number] [address] [place], [place] [address] [address] Jun, [facility], [place] [address] [id number] [address] [place] [id number] Jun, [facility], [place] [address] [id number] [address] [place] [phone] Jun, [facility], [place] [address] [id number] [address] [place] [id number] Jun, [facility], [place] [address] [id number] [address] [place] [id number] Jun, [facility], [place] [address] [id number] [address] [place] [phone] May, [facility], [place] [address] [id number] [address] [place] [phone] May, [facility], [place] [address] [id number] [address] [place] [phone] May, IMMUNIZATIONS No Known Immunizations SOCIAL HISTORY Never Assessed REASON FOR VISIT PLAN OF CARE VITAL SIGNS Height 67 in 2014-06-19 Weight 232.99 lbs 2014-06-19 Temperature 98 degrees Fahrenheit 2014-06-19 Heart Rate 96 bpm 2014-06-19 Respiratory Rate 18 2014-06-19 Blood pressure systolic 100 mmHg 2014-06-19 Blood pressure diastolic 76 mmHg 2014-06-19 MEDICATIONS Unknown Medications RESULTS No Results PROCEDURES Procedure Date Ordered Result Body Site VISIT Jun 19, 2014 INSTRUCTIONS MEDICATIONS ADMINISTERED No Known Medications [...]
--- OUTSIDE RECORDS SUMMARY | 2020-05-03 14:30 | XMS REPORT ---
Author Author Tracee AVILA Organization [facility] Address [address] [place] [address] Care Team Providers Care Paperhanger Contractor Name Role Phone SARAI AVILA Unavailable PROBLEMS Type Condition ICD9-CM Code BVO70-JN Code Onset Dates Condition S tatus SNOMED Code Problem Primary insomnia F51.01 Active 397 2004 Problem Breast pain N64.4 Active 96892878 Problem History of renal transplant Z94.0 Ac tive 236739048 Problem Violation of controlled substance agreement Z91.14 Active 435703948 Problem Mild intermittent asthma without complication J45. 20 Active 443354064 Problem Screening breast examination Z12.39 A ctive 003214843 Problem Irritable bowel syndrome without diarrhea K58.9 Active 54377721 Problem Irritable bowel syndrome with diarrhea K58.0 Active [id number] ALLERGIES No Information ENCOUNTERS Encounter Location Date Diagnosis [facility] [address] [id number] [place] [address] [id number] March, Dental examination Z01.20 [facility] [address] [id number] [address] [place] [address] [id number] Feb, Caries K02.9 [facility] [address] [id number] [address] [place] [address] [id number] Feb, Caries K02.9 [facility] [address] [id number] [address] [place] [address] [id number] Jan, [facility] [address] [id number] [address] [place] [address] [id number] Jan, Caries K02.9 [facility] [address] [id number] [address] [place] [address] [id number] Dec, [facility] [address] [id number] [address] [place] [address] [id number] Dec, 2018 Dental examination Z01.20 an d Caries K02.9 [place] [address] [id number] 14 Sep, 2016 Dental examination Z01.20 [place] [address] [place] [id number] [address] [place] [id number] 08 Jan, 2016 Nausea R11.0 ; Irritable bow el syndrome without diarrhea K58.9 and History of renal transplant Z94.0 [place] [address] [id number] 2015 [place] [address] [id number] 11 Dec, 2015 Breast pain N64.4 ; Screenin g breast examination Z12.39 and Mild intermittent asthma without complication J45.20 [place] [address] [id number] 10 Dec, 2015 [place] [address] [id number] 09 Dec, 2015 Kidney transplant status Z94 .0 ; Personal history of immunosupression therapy Z92.25 ; Recurrent UTI N39.0 and Encounter for screening, unspecified Z13.9 [place] [address] [place] [id number] [address] [place] [phone] Oct, [place] [address] [place] [id number] [address] [place] [phone] Oct, [place] [address] [place] [id number] [address] [place] [phone] Oct, [place] [address] [id number] Oct, Hiatal hernia K44.9 and Atyp ical chest pain R07.89 [place] [address] [place] [id number] [address] [place] [phone] Oct, [place] [address] [id number] [address] [place] [id number] Sep, Kidney replaced by transplan t V42.0 and Bilateral low back pain with sciatica, sciatica laterality unspecified M54.40 [facility] [address] [id number] [address] [place] [id number] Sep, [facility] [address] [id number] [address] [place] [address] Sep, Kidney replaced by transplan t V42.0 ; Bilateral low back pain with sciatica, sciatica laterality unspecified M54.40 ; Anxiety F41.9 and Primary insomnia F51.01 [facility] [address] [id number] [address] [place] [address] Aug, [facility] [address] [id number] [address] [place] [phone] Aug, [facility] [address] [id number] [address] [place] [id number] Aug, Kidney transplant status Z94 .0 ; Personal history of immunosupression therapy Z92.25 ; Recurrent urinary tract infection N39.0 and Screening Z13.9 [facility] [address] [id number] [address] [place] [id number] Aug, [facility] [address] [id number] [address] [place] [phone] Aug, Encounter for aftercare foll owing kidney transplant Z48.22 ; Chronic radicular pain of lower back M54.16 and PND (post-nasal drip) R09.82 [facility] [address] [id number] [address] [place] [id number] Jul, [facility] [address] [id number] [address] [place] [address] Jul, [facility] [address] [id number] [address] [place] [id number] Jul, [facility] [address] [id number] [address] [place] [address] Jul, Kidney replaced by transplan t V42.0 ; Depressive disorder, not elsewhere classified 311 ; Anxiety state, unspecified 300.00 ; Insomnia, unspecified 780.52 ; Irritable bowel syndrome 564.1 ; Chronic lumbar pain 724.2 and GERD (gastroesophageal reflux disease) 530.81 [facility] [address] [id number] [address] [place] [address] Jul, [facility] [address] [id number] [address] [place] [address] Jun, [facility] [address] [id number] [address] [place] [phone] Jun, [facility] [address] [facility] [id number] [address] [place] [phone] Jun, [facility] [address] [facility] [id number] [address] [place] [address] Jun, Kidney replaced by transplan t V42.0 [facility] [address] [facility] [id number] [address] [place] [address] May, [facility] [address] [facility] [id number] [address] [place] [address] May, Depression with anxiety 300. 4 and Skin infection 686.9 [facility] [address] [facility] [id number] [address] [place] [phone] May, [facility] [address] [id number] [address] [place] [address] May, Kidney replaced by transplan t V42.0 ; Recurrent UTI (urinary tract infection) 599.0 and Absence of menstruation 626.0 [facility] [address] [facility] [id number] [address] [place] [id number] May, [facility] [address] [facility] [id number] [address] [place] [address] May, Depression with anxiety 300. 4 [place] [address] [place] [id number] [address] [place] [phone] May, [facility] [address] [place] [id number] [address] [place] [address] Apr, [facility] [address] [place] [id number] [address] [place] [address] Apr, [facility] [address] [place] [id number] [address] [place] [address] Apr, Depression, major, recurrent , mild 296.31 [facility] [address] [place] [id number] [address] [place] [address] Apr, Depression, major, recurrent , mild 296.31 [place] [address] [place] [id number] [address] [place] [address] Apr, Cervicalgia 723.1 ; Lumbago 724.2 ; Anxiety state, unspecified 300.00 ; Nausea 787.02 ; 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 ; Recurrent UTI (urinary tract infection) 599.0 and Knee pain, bilateral 719.46 [place] [address] [place] [id number] [address] [place] [address] March, Depression, major, recurrent , mild 296.31 [facility] [address] [place] [id number] [address] [place] [address] March, [facility] [address] [place] [id number] [address] [place] [address] March, [facility] [address] [place] [id number] [address] [place] [address] March, Lumbago 724.2 ; Insomnia, un specified 780.52 ; Depressive disorder, not elsewhere classified 311 ; 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 ; Anxiety 300.00 ; Allergic rhinitis 477.9 and GERD (gastroesophageal reflux disease) 530.81 [facility] [address] [place] [id number] [address] [place] [phone] Feb, [facility] [address] [id number] [address] [place] [address], [place] [address] Feb, [facility] [address] [id number] [address] [place] [address], [place] [address] Jan, [facility] [address] [id number] [address] [place] [address], [place] [address] Jan, [facility] [address] [id number] [address] [place] [address], [place] [address] Jan, [facility] [address] [id number] [address] [place] [address], [place] [address] Jan, [facility] [address] [id number] [address] [place] [address], [place] [address] Dec, [facility] [address] [id number] [address] [place] [address], [place] [address] Dec, [facility] [address] [id number] [address] [place] [address], [place] [address] Dec, [facility] [address] [id number] [address] [place] [address], [place] [address] Dec, [facility] [address] [id number] [address] [place] [address], [place] [address] Dec, [facility] [address] [id number] [address] [place] [address], [place] [address] Dec, [facility] [address] [id number] [address] [place] [address], [place] [address] Dec, [facility] [address] [id number] [address] [place] [address], [place] [address] Nov, [facility] [address] [id number] [address] [place] [address], [place] [address] Nov, [facility] [address] [id number] [address] [place] [address], [place] [address] Nov, [facility] [address] [id number] [address] [place] [address] [address] Nov, [facility] [address] [id number] [address] [place] [address], [place] [address] Nov, [facility] [address] [id number] [address] [place] [address], [place] [address] Nov, [facility] [address] [id number] [address] [place] [address], [place] [address] Nov, [facility] [address] [id number] [address] [place] [address], [place] [address] Nov, [facility] [address] [id number] [address] [place] [address], [place] [address] Nov, [facility] [address] [id number] [address] [place] [address], [place] [address] Nov, [facility] [address] [id number] [address] [place] [address], [place] [address] Nov, [facility] [address] [id number] [address] [place] [address], [place] [address] Nov, [facility] [address] [id number] [address] [place] [address], [place] [address] Nov, [facility] [address] [id number] [address] [place] [address], [place] [address] Nov, [facility] [address] [id number] [address] [place] [address], [place] [address] Nov, [facility] [address] [id number] [address] [place] [address], [place] [address] Nov, [facility] [address] [id number] [address] [place] [address], [place] [address] Nov, [facility] [address] [id number] [address] [place] [address], [place] [address] Nov, [facility] [address] [id number] [address] [place] [address], [place] [address] Nov, [facility] [address] [id number] [address] [place] [address], [place] [address] Nov, [facility] [address] [id number] [address] [place] [address], [place] [address] Nov, [facility] [address] [id number] [address] [place] [address], [place] [address] Nov, [facility] [address] [id number] [address] [place] [address], [place] [address] Nov, [facility] [address] [id number] [address] [place] [address], [place] [address] Nov, [facility] [address] [id number] [address] [place] [address], [place] [address] Nov, [facility] [address] [id number] [address] [place] [address], [place] [address] Nov, [facility] [address] [id number] [address] [place] [address], [place] [address] Nov, [facility] [address] [id number] [address] [place] [address], [place] [address] Nov, [facility] [address] [id number] [address] [place] [address], [place] [address] Nov, [facility] [address] [id number] [address] [place] [address], [place] [address] Oct, [facility] [address] [id number] [address] [place] [address], [place] [address] Oct, [facility] [address] [id number] [address] [place] [address], [place] [address] Oct, [facility] [address] [id number] [address] [place] [address], [place] [address] Oct, [facility] [address] [id number] [address] [place] [address], [place] [address] Oct, [facility] [address] [id number] [address] [place] [address], [place] [address] Oct, [facility] [address] [id number] [address] [place] [address], [place] [address] Oct, [facility] [address] [id number] [address] [place] [address], [place] [address] Oct, [facility] [address] [id number] [address] [place] [address], [place] [address] Oct, [facility] [address] [id number] [address] [place] [address], [place] [address] Oct, [facility] [address] [id number] [address] [place] [address], [place] [address] Oct, [facility] [address] [id number] [address] [place] [address], [place] [address] Oct, [facility] [address] [id number] [address] [place] [address], [place] [address] Oct, [facility] [address] [id number] [address] [place] [address], [place] [address] Oct, [facility] [address] [id number] [address] [place] [address], [place] [address] Oct, [facility] [address] [id number] [address] [place] [address], [place] [address] Oct, [facility] [address] [id number] [address] [place] [address], [place] [address] Oct, [facility] [address] [id number] [address] [place] [address], [place] [address] Oct, [facility] [address] [id number] [address] [place] [address], [place] [address] Oct, [facility] [address] [id number] [address] [place] [address], [place] [address] 05 Oct, 2014 [facility] [address] [id number] [address] [place] [address], [place] [address] 05 Oct, 2014 [facility] [address] [id number] [address] [place] [address], [place] [address] Oct, [facility] [address] [id number] [address] [place] [address], [place] [address] Oct, [facility] [address] [id number] [address] [place] [address], [place] [address] Sep, [facility] [address] [id number] [address] [place] [address], [place] [address] Sep, [facility] [address] [id number] [address] [place] [address], [place] [address] Sep, [facility] [address] [id number] [address] [place] [address], [place] [address] Sep, [facility] [address] [id number] [address] [place] [address], [place] [address] Sep, [facility] [address] [id number] [address] [place] [address], [place] [address] Sep, [facility] [address] [id number] [address] [place] [address], [place] [address] Sep, [facility] [address] [id number] [address] [place] [address], [place] [address] Sep, [facility] [address] [id number] [address] [place] [address], [place] [address] Sep, [facility] [address] [id number] [address] [place] [address], [place] [address] Sep, [facility] [address] [id number] [address] [place] [address], [place] [address] Sep, [facility] [address] [id number] [address] [place] [address], [place] [address] Sep, [facility] [address] [id number] [address] [place] [address], [place] [address] Sep, [facility] [address] [id number] [address] [place] [address], [place] [address] Sep, [facility] [address] [id number] [address] [place] [address], [place] [address] Sep, [facility] [address] [id number] [address] [place] [address], [place] [address] Sep, [facility] [address] [id number] [address] [place] [address], [place] [address] Sep, [facility] [address] [id number] [address] [place] [address], [place] [address] Sep, [facility] [address] [id number] [address] [place] [address], [place] [address] Sep, [facility] [address] [id number] [address] [place] [address], [place] [address] Sep, [facility] [address] [id number] [address] [place] [address], [place] [address] Sep, [facility] [address] [id number] [address] [place] [address], [place] [address] Sep, [facility] [address] [id number] [address] [place] [address], [place] [address] Sep, [facility] [address] [id number] [address] [place] [address], [place] [address] Sep, [facility] [address] [id number] [address] [place] [address], [place] [address] Sep, [facility] [address] [id number] [address] [place] [address], [place] [address] Sep, [facility] [address] [id number] [address] [place] [address], [place] [address] Sep, [facility] [address] [id number] [address] [place] [address], [place] [address] Sep, [facility] [address] [id number] [address] [place] [address], [place] [address] Aug, [facility] [address] [id number] [address] [place] [address], [place] [address] Aug, [facility] [address] [id number] [address] [place] [address], [place] [address] Aug, [facility] [address] [id number] [address] [place] [address], [place] [address] Aug, [facility] [address] [id number] [address] [place] [address], [place] [address] Aug, [facility] [address] [id number] [address] [place] [address], [place] [address] Aug, [facility] [address] [id number] [address] [place] [address], [place] [address] Aug, [facility] [address] [id number] [address] [place] [address], [place] [address] Aug, [facility] [address] [id number] [address] [place] [address], [place] [address] Aug, [facility] [address] [id number] [address] [place] [address], [place] [address] Aug, [facility] [address] [id number] [address] [place] [address], [place] [address] Aug, [facility] [address] [id number] [address] [place] [id number] Aug, [facility] [address] [id number] [address] [place] [id number] Aug, [facility] [address] [id number] [address] [place] [id number] Aug, [facility] [address] [id number] [address] [place] [address], [place] [address] Aug, [facility] [address] [id number] [address] [place] [address], [place] [address] Aug, [facility] [address] [id number] [address] [place] [id number] Aug, [facility] [address] [id number] [address] [place] [id number] 17 Aug, 2013 [facility] [address] [id number] [address] [place] [address], [place] [address] 14 Aug, 2013 [facility] [address] [id number] [address] [place] [id number] 14 Aug, 2013 [facility] [address] [id number] [address] [place] [address], [place] [address] 09 Aug, 2013 [facility] [address] [id number] [address] [place] [id number] 09 Aug, 2013 [facility] [address] [id number] [address] [place] [address], [place] [address] Aug, 2013 [facility] [address] [id number] [address] [place] [address], [place] [address] Aug, 2013 [facility] [address] [id number] [address] [place] [id number] 08 Aug, 2013 [facility] [address] [id number] [address] [place] [id number] 07 Aug, 2013 [facility] [address] [id number] [address] [place] [id number] Aug, 2013 [facility] [address] [id number] [address] [place] [id number] Aug, 2013 [facility] [address] [id number] [address] [place] [id number] 07 Aug, 2013 [facility] [address] [id number] [address] [place] [id number] 30 Jul, 2013 [facility] [address] [id number] [address] [place] [id number] 30 Jul, 2013 [facility] [address] [id number] [address] [place] [id number] 29 Jul, 2013 [facility] [address] [id number] [address] [place] [id number] 29 Jul, 2013 [facility] [address] [id number] [address] [place] [address] 19 Jul, 2013 [facility] [address] [id number] [address] [place] [address] 19 Jul, 2013 [facility] [address] [id number] [address] [place] [address] 18 Jul, 2013 [facility] [address] [id number] [address] [place] [address] 18 Jul, 2013 [facility] [address] [id number] [address] [place] [address] 17 Jul, 2013 [facility] [address] [id number] [address] [place] [address], [place] [address] 17 Jul, 2013 [facility] [address] [id number] [address] [place] [address], [place] [address] 10 Jul, 2013 [facility] [address] [id number] [address] [place] [address], [place] [address] 10 Jul, 2013 [facility] [address] [id number] [address] [place] [address], [place] [address] Jun, [facility] [address] [id number] [address] [place] [address], [place] [address] Jun, [facility] [address] [id number] [address] [place] [address], [place] [address] Jun, [facility] [address] [id number] [address] [place], [place] [address], [place] [id number] Jun, [facility] [address] [id number] [address] [place] [address], [place] [address] Jun, [facility] [address] [id number] [address] [place] [address], [place] [address] Jun, [facility] [address] [id number] [address] [place] [address], [place] [address] Jun, [facility] [address] [id number] [address] [place], [place] [address] [address] Jun, [facility] [address] [id number] [address] [place] [id number] Jun, [facility] [address] [id number] [address] [place] [id number] Jun, [facility] [address] [id number] [address] [place] [id number] Jun, [facility] [address] [id number] [address] [place] [id number] Jun, [facility] [address] [id number] [address] [place] [id number] May, [facility] [address] [id number] [address] [place] [id number] May, [facility] [address] [facility] [id number] [address] [place] [id number] May, IMMUNIZATIONS No Known Immunizations SOCIAL HISTORY [...]
--- OUTSIDE RECORDS SUMMARY | 2020-05-03 14:30 | XMS REPORT ---
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 20 Active 777547501 Problem Screening breast examination Z12.39 A ctive 705869658 Problem Irritable bowel syndrome without diarrhea K58.9 Active 36988586 Problem Irritable bowel syndrome with diarrhea K58.0 Active 471042052 ALLERGIES No Information ENCOUNTERS Encounter Location Date Diagnosis [facility] [id number] [place] [address] [id number] March, Dental examination Z01.20 [facility] [address] [id number] [address] [place] [address] [id number] Feb, Caries K02.9 [facility] [address] [id number] [address] [place] [address] [id number] Feb, Caries K02.9 [facility] [address] [id number] [address] [place] [address] [id number] Jan, [facility] [address] [id number] [address] [place] [address] [id number] Jan, Caries K02.9 [facility] [address] [id number] [address] [place] [address] [id number] Dec, [facility] [address] [id number] [address] [place] [address] [id number] 18 Dec, 2018 Dental examination Z01.20 an d Caries K02.9 [place] [address] [address] 14 Sep, 2016 Dental examination Z01.20 [place] [address] [address] [place] [id number] [address] [place] [address] 08 Jan, 2016 Nausea R11.0 ; Irritable bow el syndrome without diarrhea K58.9 and History of renal transplant Z94.0 [place] [address] [address] 2015 [place] [address] [address] 11 Dec, 2015 Breast pain N64.4 ; Screenin g breast examination Z12.39 and Mild intermittent asthma without complication J45.20 [place] [address] [address] 10 Dec, 2015 [place] [address] [address] 09 Dec, 2015 Kidney transplant status Z94 .0 ; Personal history of immunosupression therapy Z92.25 ; Recurrent UTI N39.0 and Encounter for screening, unspecified Z13.9 [place] [address] [address] [place] [id number] [address] [place] [address] Oct, [place] [address] [place] [id number] [address] [place] [address] Oct, [place] [address] [place] [id number] [address] [place] [address] Oct, [place] [address] [address] Oct, Hiatal hernia K44.9 and Atyp ical chest pain R07.89 [place] [address] [place] [id number] [address] [place] [address] Oct, [place] [address] [id number] [address] [place] [address] Sep, Kidney replaced by transplan t V42.0 and Bilateral low back pain with sciatica, sciatica laterality unspecified M54.40 [facility] [address] [id number] [address] [place] [address] Sep, [facility] [address] [id number] [address] [place] [address] Sep, Kidney replaced by transplan t V42.0 ; Bilateral low back pain with sciatica, sciatica laterality unspecified M54.40 ; Anxiety F41.9 and Primary insomnia F51.01 [facility] [address] [id number] [address] [place] [address] Aug, [facility] [address] [id number] [address] [place] [address] Aug, [facility] [address] [id number] [address] [place] [address] Aug, Kidney transplant status Z94 .0 ; Personal history of immunosupression therapy Z92.25 ; Recurrent urinary tract infection N39.0 and Screening Z13.9 [facility] [address] [id number] [address] [place] [address] Aug, [facility] [address] [id number] [address] [place] [address] Aug, Encounter for aftercare foll owing kidney transplant Z48.22 ; Chronic radicular pain of lower back M54.16 and PND (post-nasal drip) R09.82 [facility] [address] [id number] [address] [place] [address] Jul, [facility] [address] [id number] [address] [place] [address] Jul, [facility] [address] [id number] [address] [place] [address] Jul, [facility] [address] [id number] [address] [place] [address] Jul, Kidney replaced by transplan t V42.0 ; Depressive disorder, not elsewhere classified 311 ; Anxiety state, unspecified 300.00 ; Insomnia, unspecified 780.52 ; Irritable bowel syndrome 564.1 ; Chronic lumbar pain 724.2 and GERD (gastroesophageal reflux disease) 530.81 [facility] [address] [id number] [address] [place] [address] Jul, [facility] [address] [id number] [address] [place] [address] Jun, [facility] [address] [id number] [address] [place] [address] Jun, [facility] [address] [facility] [id number] [address] [place] [address] Jun, [facility] [address] [facility] [id number] [address] [place] [address] Jun, Kidney replaced by transplan t V42.0 [facility] [address] [facility] [id number] [address] [place] [address] May, [facility] [address] [facility] [id number] [address] [place] [address] May, Depression with anxiety 300. 4 and Skin infection 686.9 [facility] [address] [facility] [id number] [address] [place] [address] May, [facility] [address] [id number] [address] [place] [address] May, Kidney replaced by transplan t V42.0 ; Recurrent UTI (urinary tract infection) 599.0 and Absence of menstruation 626.0 [facility] [address] [facility] [id number] [address] [place] [address] May, [facility] [address] [facility] [id number] [address] [place] [address] May, Depression with anxiety 300. 4 [place] [address] [place] [id number] [address] [place] [address] May, [facility] [address] [place] [id number] [address] [place] [address] Apr, [facility] [address] [place] [id number] [address] [place] [address] Apr, [facility] [address] [place] [id number] [address] [place] [address] Apr, Depression, major, recurrent , mild 296.31 [facility] [address] [place] [id number] [address] [place] [address] Apr, Depression, major, recurrent , mild 296.31 [place] [address] [address] [place] [id number] [address] [place] [address] Apr, Cervicalgia 723.1 ; Lumbago 724.2 ; Anxiety state, unspecified 300.00 ; Nausea 787.02 ; 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 ; Recurrent UTI (urinary tract infection) 599.0 and Knee pain, bilateral 719.46 [place] [address] [address] [place] [id number] [address] [place] [address] March, Depression, major, recurrent , mild 296.31 [facility] [address] [place] [id number] [address] [place] [address] March, [facility] [address] [place] [id number] [address] [place] [address] March, [facility] [address] [place] [id number] [address] [place] [address] March, Lumbago 724.2 ; Insomnia, un specified 780.52 ; Depressive disorder, not elsewhere classified 311 ; 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 ; Anxiety 300.00 ; Allergic rhinitis 477.9 and GERD (gastroesophageal reflux disease) 530.81 [facility] [address] [place] [id number] [address] [place] [address] Feb, [facility] [address] [id number] [address] [place] [address], [place] [address] Feb, [facility] [address] [id number] [address] [place] [address], [place] [address] Jan, [facility] [address] [id number] [address] [place] [address], [place] [address] Jan, [facility] [address] [id number] [address] [place] [address], [place] [address] Jan, [facility] [address] [id number] [address] [place] [address], [place] [address] Jan, [facility] [address] [id number] [address] [place] [address], [place] [address] Dec, [facility] [address] [id number] [address] [place] [address], [place] [address] Dec, [facility] [address] [id number] [address] [place] [address], [place] [address] Dec, [facility] [address] [id number] [address] [place] [address], [place] [address] Dec, [facility] [address] [id number] [address] [place] [address], [place] [address] Dec, [facility] [address] [id number] [address] [place] [address], [place] [address] Dec, [facility] [address] [id number] [address] [place] [address], [place] [address] Dec, [facility] [address] [id number] [address] [place] [address], [place] [address] Nov, [facility] [address] [id number] [address] [place] [address], [place] [address] Nov, [facility] [address] [id number] [address] [place] [address], [place] [address] Nov, [facility] [address] [id number] [address] [place] [address] [address] Nov, [facility] [address] [id number] [address] [place] [address], [place] [address] Nov, [facility] [address] [id number] [address] [place] [address], [place] [address] Nov, [facility] [address] [id number] [address] [place] [address], [place] [address] Nov, [facility] [address] [id number] [address] [place] [address], [place] [address] Nov, [facility] [address] [id number] [address] [place] [address], [place] [address] Nov, [facility] [address] [id number] [address] [place] [address], [place] [address] Nov, [facility] [address] [id number] [address] [place] [address], [place] [address] Nov, [facility] [address] [id number] [address] [place] [address], [place] [address] Nov, [facility] [address] [id number] [address] [place] [address], [place] [address] Nov, [facility] [address] [id number] [address] [place] [address], [place] [address] Nov, [facility] [address] [id number] [address] [place] [address], [place] [address] Nov, [facility] [address] [id number] [address] [place] [address], [place] [address] Nov, [facility] [address] [id number] [address] [place] [address], [place] [address] Nov, [facility] [address] [id number] [address] [place] [address], [place] [address] Nov, [facility] [address] [id number] [address] [place] [address], [place] [address] Nov, [facility] [address] [id number] [address] [place] [address], [place] [address] Nov, [facility] [address] [id number] [address] [place] [address], [place] [address] Nov, [facility] [address] [id number] [address] [place] [address], [place] [address] Nov, [facility] [address] [id number] [address] [place] [address], [place] [address] Nov, [facility] [address] [id number] [address] [place] [address], [place] [address] Nov, [facility] [address] [id number] [address] [place] [address], [place] [address] Nov, [facility] [address] [id number] [address] [place] [address], [place] [address] Nov, [facility] [address] [id number] [address] [place] [address], [place] [address] Nov, [facility] [address] [id number] [address] [place] [address], [place] [address] Nov, [facility] [address] [id number] [address] [place] [address], [place] [address] Nov, [facility] [address] [id number] [address] [place] [address], [place] [address] Oct, [facility] [address] [id number] [address] [place] [address], [place] [address] Oct, [facility] [address] [id number] [address] [place] [address], [place] [address] Oct, [facility] [address] [id number] [address] [place] [address], [place] [address] Oct, [facility] [address] [id number] [address] [place] [address], [place] [address] Oct, [facility] [address] [id number] [address] [place] [address], [place] [address] Oct, [facility] [address] [id number] [address] [place] [address], [place] [address] Oct, [facility] [address] [id number] [address] [place] [address], [place] [address] Oct, [facility] [address] [id number] [address] [place] [address], [place] [address] Oct, [facility] [address] [id number] [address] [place] [address], [place] [address] Oct, [facility] [address] [id number] [address] [place] [address], [place] [address] Oct, [facility] [address] [id number] [address] [place] [address], [place] [address] Oct, [facility] [address] [id number] [address] [place] [address], [place] [address] Oct, [facility] [address] [id number] [address] [place] [address], [place] [address] Oct, [facility] [address] [id number] [address] [place] [address], [place] [address] Oct, [facility] [address] [id number] [address] [place] [address], [place] [address] Oct, [facility] [address] [id number] [address] [place] [address], [place] [address] Oct, [facility] [address] [id number] [address] [place] [address], [place] [address] Oct, [facility] [address] [id number] [address] [place] [address], [place] [address] Oct, [facility] [address] [id number] [address] [place] [address], [place] [address] 05 Oct, 2014 [facility] [address] [id number] [address] [place] [address], [place] [address] 05 Oct, 2014 [facility] [address] [id number] [address] [place] [address], [place] [address] Oct, [facility] [address] [id number] [address] [place] [address], [place] [address] Oct, [facility] [address] [id number] [address] [place] [address], [place] [address] Sep, [facility] [address] [id number] [address] [place] [address], [place] [address] Sep, [facility] [address] [id number] [address] [place] [address], [place] [address] Sep, [facility] [address] [id number] [address] [place] [address], [place] [address] Sep, [facility] [address] [id number] [address] [place] [address], [place] [address] Sep, [facility] [address] [id number] [address] [place] [address], [place] [address] Sep, [facility] [address] [id number] [address] [place] [address], [place] [address] Sep, [facility] [address] [id number] [address] [place] [address], [place] [address] Sep, [facility] [address] [id number] [address] [place] [address], [place] [address] Sep, [facility] [address] [id number] [address] [place] [address], [place] [address] Sep, [facility] [address] [id number] [address] [place] [address], [place] [address] Sep, [facility] [address] [id number] [address] [place] [address], [place] [address] Sep, [facility] [address] [id number] [address] [place] [address], [place] [address] Sep, [facility] [address] [id number] [address] [place] [address], [place] [address] Sep, [facility] [address] [id number] [address] [place] [address], [place] [address] Sep, [facility] [address] [id number] [address] [place] [address], [place] [address] Sep, [facility] [address] [id number] [address] [place] [address], [place] [address] Sep, [facility] [address] [id number] [address] [place] [address], [place] [address] Sep, [facility] [address] [id number] [address] [place] [address], [place] [address] Sep, [facility] [address] [id number] [address] [place] [address], [place] [address] Sep, [facility] [address] [id number] [address] [place] [address], [place] [address] Sep, [facility] [address] [id number] [address] [place] [address], [place] [address] Sep, [facility] [address] [id number] [address] [place] [address], [place] [address] Sep, [facility] [address] [id number] [address] [place] [address], [place] [address] Sep, [facility] [address] [id number] [address] [place] [address], [place] [address] Sep, [facility] [address] [id number] [address] [place] [address], [place] [address] Sep, [facility] [address] [id number] [address] [place] [address], [place] [address] Sep, [facility] [address] [id number] [address] [place] [address], [place] [address] Sep, [facility] [address] [id number] [address] [place] [address], [place] [address] Aug, [facility] [address] [id number] [address] [place] [address], [place] [address] Aug, [facility] [address] [id number] [address] [place] [address], [place] [address] Aug, [facility] [address] [id number] [address] [place] [address], [place] [address] Aug, [facility] [address] [id number] [address] [place] [address], [place] [address] Aug, [facility] [address] [id number] [address] [place] [address], [place] [address] Aug, [facility] [address] [id number] [address] [place] [address], [place] [address] Aug, [facility] [address] [id number] [address] [place] [address], [place] [address] Aug, [facility] [address] [id number] [address] [place] [address], [place] [address] Aug, [facility] [address] [id number] [address] [place] [address], [place] [address] Aug, [facility] [address] [id number] [address] [place] [address], [place] [address] Aug, [facility] [address] [id number] [address] [place] [id number] Aug, [facility] [address] [id number] [address] [place] [id number] Aug, [facility] [address] [id number] [address] [place] [id number] Aug, [facility] [address] [id number] [address] [place] [address], [place] [address] Aug, [facility] [address] [id number] [address] [place] [address], [place] [address] Aug, [facility] [address] [id number] [address] [place] [id number] Aug, [facility] [address] [id number] [address] [place] [id number] 17 Aug, 2013 [facility] [address] [id number] [address] [place] [address], [place] [address] 14 Aug, 2013 [facility] [address] [id number] [address] [place] [id number] 14 Aug, 2013 [facility] [address] [id number] [address] [place] [address], [place] [address] 09 Aug, 2013 [facility] [address] [id number] [address] [place] [id number] 09 Aug, 2013 [facility] [address] [id number] [address] [place] [address], [place] [address] Aug, 2013 [facility] [address] [id number] [address] [place] [address], [place] [address] Aug, 2013 [facility] [address] [id number] [address] [place] [id number] 08 Aug, 2013 [facility] [address] [id number] [address] [place] [id number] 07 Aug, 2013 [facility] [address] [id number] [address] [place] [id number] Aug, 2013 [facility] [address] [id number] [address] [place] [id number] Aug, 2013 [facility] [address] [id number] [address] [place] [id number] 07 Aug, 2013 [facility] [address] [id number] [address] [place] [id number] 30 Jul, 2013 [facility] [address] [id number] [address] [place] [id number] 30 Jul, 2013 [facility] [address] [id number] [address] [place] [id number] 29 Jul, 2013 [facility] [address] [id number] [address] [place] [id number] 29 Jul, 2013 [facility] [address] [id number] [facility] [place] [address] 19 Jul, 2013 [facility] [address] [id number] [facility] [place] [address] 19 Jul, 2013 [facility] [address] [id number] [facility] [place] [address] 18 Jul, 2013 [facility] [address] [id number] [facility] [place] [address] 18 Jul, 2013 [facility] [address] [id number] [facility] [place] [address] 17 Jul, 2013 [facility] [address] [id number] [address] [place] [address], [place] [address] 17 Jul, 2013 [facility] [address] [id number] [address] [place] [address], [place] [address] 10 Jul, 2013 [facility] [address] [id number] [address] [place] [address], [place] [address] 10 Jul, 2013 [facility] [address] [id number] [address] [place] [address], [place] [address] Jun, [facility] [address] [id number] [address] [place] [address], [place] [address] Jun, [facility] [address] [id number] [address] [place] [address], [place] [address] Jun, [facility] [address] [id number] [address] [place] [address], [place] [address] Jun, [facility] [address] [id number] [address] [place] [address], [place] [address] Jun, [facility] [address] [address] [id number] [address] [place] [address], [place] [id number] Jun, [facility] [address] [id number] [address] [place] [address], [place] [id number] Jun, [facility] [address] [id number] [address] [place] [address] [address] Jun, [facility] [address] [id number] [address] [place] [phone] Jun, [facility] [address] [id number] [address] [place] [id number] Jun, [facility] [address] [id number] [address] [place] [id number] Jun, [facility] [address] [id number] [address] [place] [id number] Jun, [facility] [address] [id number] [address] [place] [id number] May, [facility] [address] [id number] [address] [place] [phone] May, [facility] [address] [id number] [address] [place] [phone] May, IMMUNIZATIONS No Known Immunizations SOCIAL HISTORY Never Assessed REASON FOR VISIT PLAN OF CARE VITAL SIGNS Height 67 in 2014-07-03 Weight 236.01 lbs 2014-07-03 Temperature 98.2 degrees Fahrenheit 2014-07-03 Heart Rate 84 bpm 2014-07-03 Respiratory Rate 16 2014-07-03 Blood pressure systolic 102 mmHg 2014-07-03 Blood pressure diastolic 72 mmHg 2014-07-03 MEDICATIONS Unknown Medications RESULTS No Results PROCEDURES [...]
--- OUTSIDE RECORDS SUMMARY | 2020-05-03 14:30 | XMS REPORT ---
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 20 Active 736276319 Problem Screening breast examination Z12.39 A ctive 314645719 Problem Irritable bowel syndrome without diarrhea K58.9 Active 95588044 Problem Irritable bowel syndrome with diarrhea K58.0 Active [id number] ALLERGIES No Information ENCOUNTERS Encounter Location Date Diagnosis [facility] [id number] [place] [address] [id number] March, Dental examination Z01.20 [facility] [address] [id number] [address] [place] [address] [id number] Feb, Caries K02.9 [facility] [address] [id number] [address] [place] [address] [id number] Feb, Caries K02.9 [facility] [address] [id number] [address] [place] [address] [id number] Jan, [facility] [address] [id number] [address] [place] [address] [id number] Jan, Caries K02.9 [facility] [address] [id number] [address] [place] [address] [id number] Dec, [facility] [address] [id number] [address] [place] [address] [id number] 18 Dec, 2018 Dental examination Z01.20 an d Caries K02.9 [place] [address] [id number] 14 Sep, 2016 Dental examination Z01.20 [place] [address] [place] [id number] [address] [place] [phone] 08 Jan, 2016 Nausea R11.0 ; Irritable bow el syndrome without diarrhea K58.9 and History of renal transplant Z94.0 [place] [address] [id number] 2015 [place] [address] [address] 11 Dec, 2015 Breast pain N64.4 ; Screenin g breast examination Z12.39 and Mild intermittent asthma without complication J45.20 [place] [address] [address] 10 Dec, 2015 [place] [address] [address] 09 Dec, 2015 Kidney transplant status Z94 .0 ; Personal history of immunosupression therapy Z92.25 ; Recurrent UTI N39.0 and Encounter for screening, unspecified Z13.9 [place] [address] [place] [id number] [address] [place] [phone] Oct, [place] [address] [place] [id number] [address] [place] [phone] Oct, [place] [address] [place] [id number] [address] [place] [phone] Oct, [place] [address] [id number] Oct, Hiatal hernia K44.9 and Atyp ical chest pain R07.89 [place] [address] [place] [id number] [address] [place] [phone] Oct, [place] [address] [id number] [address] [place] [phone] Sep, Kidney replaced by transplan t V42.0 and Bilateral low back pain with sciatica, sciatica laterality unspecified M54.40 [facility] [address] [id number] [address] [place] [phone] Sep, [facility] [address] [id number] [address] [place] [phone] Sep, Kidney replaced by transplan t V42.0 ; Bilateral low back pain with sciatica, sciatica laterality unspecified M54.40 ; Anxiety F41.9 and Primary insomnia F51.01 [facility] [address] [id number] [address] [place] [phone] Aug, [facility] [address] [id number] [address] [place] [phone] Aug, [facility] [address] [id number] [address] [place] [phone] Aug, Kidney transplant status Z94 .0 ; Personal history of immunosupression therapy Z92.25 ; Recurrent urinary tract infection N39.0 and Screening Z13.9 [facility] [address] [id number] [address] [place] [phone] Aug, [facility] [address] [id number] [address] [place] [phone] Aug, Encounter for aftercare foll owing kidney transplant Z48.22 ; Chronic radicular pain of lower back M54.16 and PND (post-nasal drip) R09.82 [facility] [address] [id number] [address] [place] [phone] Jul, [facility] [address] [id number] [address] [place] [phone] Jul, [facility] [address] [id number] [address] [place] [phone] Jul, [facility] [address] [id number] [address] [place] [phone] Jul, Kidney replaced by transplan t V42.0 ; Depressive disorder, not elsewhere classified 311 ; Anxiety state, unspecified 300.00 ; Insomnia, unspecified 780.52 ; Irritable bowel syndrome 564.1 ; Chronic lumbar pain 724.2 and GERD (gastroesophageal reflux disease) 530.81 [facility] [address] [id number] [address] [place] [phone] Jul, [facility] [address] [id number] [address] [place] [phone] Jun, [facility] [address] [id number] [address] [place] [phone] Jun, [facility] [address] [facility] [id number] [address] [place] [phone] Jun, [facility] [address] [facility] [id number] [address] [place] [phone] Jun, Kidney replaced by transplan t V42.0 [facility] [address] [facility] [id number] [address] [place] [phone] May, [facility] [address] [facility] [id number] [address] [place] [phone] May, Depression with anxiety 300. 4 and Skin infection 686.9 [facility] [address] [facility] [id number] [address] [place] [phone] May, [facility] [address] [id number] [address] [place] [phone] May, Kidney replaced by transplan t V42.0 ; Recurrent UTI (urinary tract infection) 599.0 and Absence of menstruation 626.0 [facility] [address] [facility] [id number] [address] [place] [phone] May, [facility] [address] [facility] [id number] [address] [place] [phone] May, Depression with anxiety 300. 4 [place] [address] [place] [id number] [address] [place] [phone] May, [facility] [address] [place] [id number] [address] [place] [phone] Apr, [facility] [address] [place] [id number] [address] [place] [phone] Apr, [facility] [address] [place] [id number] [address] [place] [phone] Apr, Depression, major, recurrent , mild 296.31 [facility] [address] [place] [id number] [address] [place] [phone] Apr, Depression, major, recurrent , mild 296.31 [place] [address] [place] [id number] [address] [place] [phone] Apr, Cervicalgia 723.1 ; Lumbago 724.2 ; Anxiety state, unspecified 300.00 ; Nausea 787.02 ; 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 ; Recurrent UTI (urinary tract infection) 599.0 and Knee pain, bilateral 719.46 [place] [address] [place] [id number] [address] [place] [phone] March, Depression, major, recurrent , mild 296.31 [facility] [address] [place] [id number] [address] [place] [phone] March, [facility] [address] [place] [id number] [address] [place] [phone] March, [facility] [address] [place] [id number] [address] [place] [phone] March, Lumbago 724.2 ; Insomnia, un specified 780.52 ; Depressive disorder, not elsewhere classified 311 ; 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 ; Anxiety 300.00 ; Allergic rhinitis 477.9 and GERD (gastroesophageal reflux disease) 530.81 [facility] [address] [place] [id number] [address] [place] [phone] Feb, [facility] [address] [id number] [address] [place] [address], [place] [address] Feb, [facility] [address] [id number] [address] [place] [address], [place] [address] Jan, [facility] [address] [id number] [address] [place] [address], [place] [address] Jan, [facility] [address] [id number] [address] [place] [address], [place] [address] Jan, [facility] [address] [id number] [address] [place] [address], [place] [address] Jan, [facility] [address] [id number] [address] [place] [address], [place] [address] Dec, [facility] [address] [id number] [address] [place] [address], [place] [address] Dec, [facility] [address] [id number] [address] [place] [address], [place] [address] Dec, [facility] [address] [id number] [address] [place] [address], [place] [address] Dec, [facility] [address] [id number] [address] [place] [address], [place] [address] Dec, [facility] [address] [id number] [address] [place] [address], [place] [address] Dec, [facility] [address] [id number] [address] [place] [address], [place] [address] Dec, [facility] [address] [id number] [address] [place] [address], [place] [address] Nov, [facility] [address] [id number] [address] [place] [address], [place] [address] Nov, [facility] [address] [id number] [address] [place] [address], [place] [address] Nov, [facility] [address] [id number] [address] [place] [address] [address] Nov, [facility] [address] [id number] [address] [place] [address], [place] [address] Nov, [facility] [address] [id number] [address] [place] [address], [place] [address] Nov, [facility] [address] [id number] [address] [place] [address], [place] [address] Nov, [facility] [address] [id number] [address] [place] [address], [place] [address] Nov, [facility] [address] [id number] [address] [place] [address], [place] [address] Nov, [facility] [address] [id number] [address] [place] [address], [place] [address] Nov, [facility] [address] [id number] [address] [place] [address], [place] [address] Nov, [facility] [address] [id number] [address] [place] [address], [place] [address] Nov, [facility] [address] [id number] [address] [place] [address], [place] [address] Nov, [facility] [address] [id number] [address] [place] [address], [place] [address] Nov, [facility] [address] [id number] [address] [place] [address], [place] [address] Nov, [facility] [address] [id number] [address] [place] [address], [place] [address] Nov, [facility] [address] [id number] [address] [place] [address], [place] [address] Nov, [facility] [address] [id number] [address] [place] [address], [place] [address] Nov, [facility] [address] [id number] [address] [place] [address], [place] [address] Nov, [facility] [address] [id number] [address] [place] [address], [place] [address] Nov, [facility] [address] [id number] [address] [place] [address], [place] [address] Nov, [facility] [address] [id number] [address] [place] [address], [place] [address] Nov, [facility] [address] [id number] [address] [place] [address], [place] [address] Nov, [facility] [address] [id number] [address] [place] [address], [place] [address] Nov, [facility] [address] [id number] [address] [place] [address], [place] [address] Nov, [facility] [address] [id number] [address] [place] [address], [place] [address] Nov, [facility] [address] [id number] [address] [place] [address], [place] [address] Nov, [facility] [address] [id number] [address] [place] [address], [place] [address] Nov, [facility] [address] [id number] [address] [place] [address], [place] [address] Nov, [facility] [address] [id number] [address] [place] [address], [place] [address] Oct, [facility] [address] [id number] [address] [place] [address], [place] [address] Oct, [facility] [address] [id number] [address] [place] [address], [place] [address] Oct, [facility] [address] [id number] [address] [place] [address], [place] [address] Oct, [facility] [address] [id number] [address] [place] [address], [place] [address] Oct, [facility] [address] [id number] [address] [place] [address], [place] [address] Oct, [facility] [address] [id number] [address] [place] [address], [place] [address] Oct, [facility] [address] [id number] [address] [place] [address], [place] [address] Oct, [facility] [address] [id number] [address] [place] [address], [place] [address] Oct, [facility] [address] [id number] [address] [place] [address], [place] [address] Oct, [facility] [address] [id number] [address] [place] [address], [place] [address] Oct, [facility] [address] [id number] [address] [place] [address], [place] [address] Oct, [facility] [address] [id number] [address] [place] [address], [place] [address] Oct, [facility] [address] [id number] [address] [place] [address], [place] [address] Oct, [facility] [address] [id number] [address] [place] [address], [place] [address] Oct, [facility] [address] [id number] [address] [place] [address], [place] [address] Oct, [facility] [address] [id number] [address] [place] [address], [place] [address] Oct, [facility] [address] [id number] [address] [place] [address], [place] [address] Oct, [facility] [address] [id number] [address] [place] [address], [place] [address] Oct, [facility] [address] [id number] [address] [place] [address], [place] [address] 05 Oct, 2014 [facility] [address] [id number] [address] [place] [address], [place] [address] 05 Oct, [address] [facility] [address] [id number] [address] [place] [address], [place] [address] Oct, [facility] [address] [id number] [address] [place] [address], [place] [address] Oct, [facility] [address] [id number] [address] [place] [address], [place] [address] Sep, [facility] [address] [id number] [address] [place] [address], [place] [address] Sep, [facility] [address] [id number] [address] [place] [address], [place] [address] Sep, [facility] [address] [id number] [address] [place] [address], [place] [address] Sep, [facility] [address] [id number] [address] [place] [address], [place] [address] Sep, [facility] [address] [id number] [address] [place] [address], [place] [address] Sep, [facility] [address] [id number] [address] [place] [address], [place] [address] Sep, [facility] [address] [id number] [address] [place] [address], [place] [address] Sep, [facility] [address] [id number] [address] [place] [address], [place] [address] Sep, [facility] [address] [id number] [address] [place] [address], [place] [address] Sep, [facility] [address] [id number] [address] [place] [address], [place] [address] Sep, [facility] [address] [id number] [address] [place] [address], [place] [address] Sep, [facility] [address] [id number] [address] [place] [address], [place] [address] Sep, [facility] [address] [id number] [address] [place] [address], [place] [address] Sep, [facility] [address] [id number] [address] [place] [address], [place] [address] Sep, [facility] [address] [id number] [address] [place] [address], [place] [address] Sep, [facility] [address] [id number] [address] [place] [address], [place] [address] Sep, [facility] [address] [id number] [address] [place] [address], [place] [address] Sep, [facility] [address] [id number] [address] [place] [address], [place] [address] Sep, [facility] [address] [id number] [address] [place] [address], [place] [address] Sep, [facility] [address] [id number] [address] [place] [address], [place] [address] Sep, [facility] [address] [id number] [address] [place] [address], [place] [address] Sep, [facility] [address] [id number] [address] [place] [address], [place] [address] Sep, [facility] [address] [id number] [address] [place] [address], [place] [address] Sep, [facility] [address] [id number] [address] [place] [address], [place] [address] Sep, [facility] [address] [id number] [address] [place] [address], [place] [address] Sep, [facility] [address] [id number] [address] [place] [address], [place] [address] Sep, [facility] [address] [id number] [address] [place] [address], [place] [address] Sep, [facility] [address] [id number] [address] [place] [address], [place] [address] Aug, [facility] [address] [id number] [address] [place] [address], [place] [address] Aug, [facility] [address] [id number] [address] [place] [address], [place] [address] Aug, [facility] [address] [id number] [address] [place] [address], [place] [address] Aug, [facility] [address] [id number] [address] [place] [address], [place] [id number] Aug, [facility] [address] [id number] [address] [place] [address], [place] [id number] Aug, [facility] [address] [id number] [address] [place] [address], [place] [id number] Aug, [facility] [address] [id number] [address] [place] [address], [place] [address] Aug, [facility] [address] [id number] [address] [place] [address], [place] [id number] Aug, [facility] [address] [id number] [address] [place] [address], [place] [id number] Aug, [facility] [address] [id number] [address] [place] [address], [place] [id number] Aug, [facility] [address] [id number] [address] [place] [id number] Aug, [facility] [address] [id number] [address] [place] [id number] Aug, [facility] [address] [id number] [address] [place] [id number] Aug, [facility] [address] [id number] [address] [place] [address], [place] [id number] Aug, [facility] [address] [id number] [address] [place] [address], [place] [id number] Aug, [facility] [address] [id number] [address] [place] [id number] Aug, [facility] [address] [id number] [address] [place] [id number] 17 Aug, 2013 [facility] [address] [id number] [address] [place] [address], [place] [id number] 14 Aug, 2013 [facility] [address] [id number] [address] [place] [id number] 14 Aug, 2013 [facility] [address] [id number] [address] [place] [address], [place] [id number] 09 Aug, 2013 [facility] [address] [id number] [address] [place] [id number] 09 Aug, 2013 [facility] [address] [id number] [address] [place] [address], [place] [id number] Aug, 2013 [facility] [address] [id number] [address] [place] [address], [place] [id number] Aug, 2013 [facility] [address] [id number] [address] [place] [id number] 08 Aug, 2013 [facility] [address] [id number] [address] [place] [id number] 07 Aug, 2013 [facility] [address] [id number] [address] [place] [id number] Aug, 2013 [facility] [address] [id number] [address] [place] [id number] Aug, 2013 [facility] [address] [id number] [address] [place] [id number] 07 Aug, 2013 [facility] [address] [id number] [address] [place] [id number] 30 Jul, 2013 [facility] [address] [id number] [address] [place] [id number] 30 Jul, 2013 [facility] [address] [id number] [address] [place] [id number] 29 Jul, 2013 [facility] [address] [id number] [address] [place] [id number] 29 Jul, 2013 [facility] [address] [id number] [facility] [place] [id number] 19 Jul, 2013 [facility] [address] [id number] [facility] [place] [id number] 19 Jul, 2013 [facility] [address] [id number] [facility] [place] [id number] 18 Jul, 2013 [facility] [address] [id number] [facility] [place] [id number] 18 Jul, 2013 [facility] [address] [id number] [facility] [place] [id number] 17 Jul, 2013 [facility] [address] [id number] [address] [place] [address], [place] [id number] 17 Jul, 2013 [facility] [address] [id number] [address] [place] [address], [place] [id number] 10 Jul, 2013 [facility] [address] [id number] [address] [place] [address], [place] [id number] 10 Jul, 2013 [facility] [address] [id number] [address] [place] [address], [place] [id number] Jun, [facility] [address] [id number] [address] [place] [address], [place] [id number] Jun, [facility] [address] [id number] [address] [place] [address], [place] [id number] Jun, [facility] [address] [id number] [address] [place] [address], [place] [id number] Jun, [facility] [address] [id number] [address] [place] [address], [place] [id number] Jun, [facility] [address] [id number] [address] [place] [address], [place] [id number] Jun, [facility] [address] [id number] [address] [place] [address], [place] [id number] Jun, [facility] [address] [id number] [address] [place] [address] [address] Jun, [facility] [address] [id number] [address] [place] [id number] Jun, [facility] [address] [id number] [address] [place] [id number] Jun, [facility] [address] [id number] [address] [place] [id number] Jun, [facility] [address] [id number] [address] [place] [id number] Jun, [facility] [address] [id number] [address] [place] [id number] May, [facility] [address] [id number] [address] [place] [id number] May, [facility] [address] [facility] [id number] [address] [place] [id number] May, IMMUNIZATIONS No Known Immunizations SOCIAL HISTORY [...]
--- OUTSIDE RECORDS SUMMARY | 2020-05-03 14:30 | XMS REPORT ---
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 20 Active 916091920 Problem Screening breast examination Z12.39 A ctive 108399951 Problem Irritable bowel syndrome without diarrhea K58.9 Active 54994789 Problem Irritable bowel syndrome with diarrhea K58.0 Active [id number] ALLERGIES No Information ENCOUNTERS Encounter Location Date Diagnosis [facility] [address] [id number] [place] [address] [id number] March, Dental examination Z01.20 [facility] [address] [id number] [address] [place] [address] [id number] Feb, Caries K02.9 [facility] [address] [id number] [address] [place] [address] [id number] Feb, Caries K02.9 [facility] [address] [id number] [address] [place] [address] [id number] Jan, [facility] [address] [id number] [address] [place] [address] [id number] Jan, Caries K02.9 [facility] [address] [id number] [address] [place] [address] [id number] Dec, [facility] [address] [id number] [address] [place] [address] [id number] 18 Dec, 2018 Dental examination Z01.20 an d Caries K02.9 [place] [address] [id number] 14 Sep, 2016 Dental examination Z01.20 [place] [address] [address] [place] [id number] [address] [place] [id number] 08 Jan, 2016 Nausea R11.0 ; Irritable bow el syndrome without diarrhea K58.9 and History of renal transplant Z94.0 [place] [address] [id number] 2015 [place] [address] [id number] 11 Dec, 2015 Breast pain N64.4 ; Screenin g breast examination Z12.39 and Mild intermittent asthma without complication J45.20 [place] [address] [id number] 10 Dec, 2015 [place] [address] [id number] 09 Dec, 2015 Kidney transplant status Z94 .0 ; Personal history of immunosupression therapy Z92.25 ; Recurrent UTI N39.0 and Encounter for screening, unspecified Z13.9 [place] [address] [address] [place] [id number] [address] [place] [phone] Oct, [place] [address] [address] [place] [id number] [address] [place] [id number] Oct, [place] [address] [place] [id number] [address] [place] [id number] Oct, [place] [address] [address] Oct, Hiatal hernia K44.9 and Atyp ical chest pain R07.89 [place] [address] [address] [place] [id number] [address] [place] [id number] Oct, [place] [address] [id number] [address] [place] [id number] Sep, Kidney replaced by transplan t V42.0 and Bilateral low back pain with sciatica, sciatica laterality unspecified M54.40 [facility] [address] [id number] [address] [place] [id number] Sep, [facility] [address] [id number] [address] [place] [phone] Sep, Kidney replaced by transplan t V42.0 ; Bilateral low back pain with sciatica, sciatica laterality unspecified M54.40 ; Anxiety F41.9 and Primary insomnia F51.01 [facility] [address] [id number] [address] [place] [id number] Aug, [facility] [address] [id number] [address] [place] [id number] Aug, [facility] [address] [id number] [address] [place] [id number] Aug, Kidney transplant status Z94 .0 ; Personal history of immunosupression therapy Z92.25 ; Recurrent urinary tract infection N39.0 and Screening Z13.9 [facility] [address] [id number] [address] [place] [id number] Aug, [facility] [address] [id number] [address] [place] [phone] Aug, Encounter for aftercare foll owing kidney transplant Z48.22 ; Chronic radicular pain of lower back M54.16 and PND (post-nasal drip) R09.82 [facility] [address] [id number] [address] [place] [id number] Jul, [facility] [address] [id number] [address] [place] [phone] Jul, [facility] [address] [id number] [address] [place] [phone] Jul, [facility] [address] [id number] [address] [place] [id number] Jul, Kidney replaced by transplan t V42.0 ; Depressive disorder, not elsewhere classified 311 ; Anxiety state, unspecified 300.00 ; Insomnia, unspecified 780.52 ; Irritable bowel syndrome 564.1 ; Chronic lumbar pain 724.2 and GERD (gastroesophageal reflux disease) 530.81 [facility] [address] [id number] [address] [place] [id number] Jul, [facility] [address] [id number] [address] [place] [phone] Jun, [facility] [address] [id number] [address] [place] [phone] Jun, [facility] [address] [facility] [id number] [address] [place] [phone] Jun, [facility] [address] [facility] [id number] [address] [place] [phone] Jun, Kidney replaced by transplan t V42.0 [facility] [address] [facility] [id number] [address] [place] [phone] May, [facility] [address] [facility] [id number] [address] [place] [phone] May, Depression with anxiety 300. 4 and Skin infection 686.9 [facility] [address] [facility] [id number] [address] [place] [phone] May, [facility] [address] [id number] [address] [place] [phone] May, Kidney replaced by transplan t V42.0 ; Recurrent UTI (urinary tract infection) 599.0 and Absence of menstruation 626.0 [facility] [address] [facility] [id number] [address] [place] [id number] May, [facility] [address] [facility] [id number] [address] [place] [phone] May, Depression with anxiety 300. 4 [place] [address] [address] [place] [id number] [address] [place] [phone] May, [facility] [address] [place] [id number] [address] [place] [phone] Apr, [facility] [address] [place] [id number] [address] [place] [phone] Apr, [facility] [address] [place] [id number] [address] [place] [id number] Apr, Depression, major, recurrent , mild 296.31 [facility] [address] [place] [id number] [address] [place] [phone] Apr, Depression, major, recurrent , mild 296.31 [place] [address] [address] [place] [id number] [address] [place] [address] Apr, Cervicalgia 723.1 ; Lumbago 724.2 ; Anxiety state, unspecified 300.00 ; Nausea 787.02 ; 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 ; Recurrent UTI (urinary tract infection) 599.0 and Knee pain, bilateral 719.46 [place] [address] [address] [place] [id number] [address] [place] [address] March, Depression, major, recurrent , mild 296.31 [facility] [address] [place] [id number] [address] [place] [phone] March, [facility] [address] [place] [id number] [address] [place] [phone] March, [facility] [address] [place] [id number] [address] [place] [phone] March, Lumbago 724.2 ; Insomnia, un specified 780.52 ; Depressive disorder, not elsewhere classified 311 ; 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 ; Anxiety 300.00 ; Allergic rhinitis 477.9 and GERD (gastroesophageal reflux disease) 530.81 [facility] [address] [place] [id number] [address] [place] [id number] Feb, [facility] [address] [id number] [address] [place] [address], [place] [address] Feb, [facility] [address] [id number] [address] [place] [address], [place] [address] Jan, [facility] [address] [id number] [address] [place] [address], [place] [address] Jan, [facility] [address] [id number] [address] [place] [address], [place] [address] Jan, [facility] [address] [id number] [address] [place] [address], [place] [address] Jan, [facility] [address] [id number] [address] [place] [address], [place] [address] Dec, [facility] [address] [id number] [address] [place] [address], [place] [address] Dec, [facility] [address] [id number] [address] [place] [address], [place] [address] Dec, [facility] [address] [id number] [address] [place] [address], [place] [address] Dec, [facility] [address] [id number] [address] [place] [address], [place] [address] Dec, [facility] [address] [id number] [address] [place] [address], [place] [address] Dec, [facility] [address] [id number] [address] [place] [address], [place] [address] Dec, [facility] [address] [id number] [address] [place] [address], [place] [address] Nov, [facility] [address] [id number] [address] [place] [address], [place] [address] Nov, [facility] [address] [id number] [address] [place] [address], [place] [address] Nov, [facility] [address] [id number] [address] [place] [address] [address] Nov, [facility] [address] [id number] [address] [place] [address], [place] [address] Nov, [facility] [address] [id number] [address] [place] [address], [place] [address] Nov, [facility] [address] [id number] [address] [place] [address], [place] [address] Nov, [facility] [address] [id number] [address] [place] [address], [place] [address] Nov, [facility] [address] [id number] [address] [place] [address], [place] [address] Nov, [facility] [address] [id number] [address] [place] [address], [place] [address] Nov, [facility] [address] [id number] [address] [place] [address], [place] [address] Nov, [facility] [address] [id number] [address] [place] [address], [place] [address] Nov, [facility] [address] [id number] [address] [place] [address], [place] [address] Nov, [facility] [address] [id number] [address] [place] [address], [place] [address] Nov, [facility] [address] [id number] [address] [place] [address], [place] [address] Nov, [facility] [address] [id number] [address] [place] [address], [place] [address] Nov, [facility] [address] [id number] [address] [place] [address], [place] [address] Nov, [facility] [address] [id number] [address] [place] [address], [place] [address] Nov, [facility] [address] [id number] [address] [place] [address], [place] [address] Nov, [facility] [address] [id number] [address] [place] [address], [place] [address] Nov, [facility] [address] [id number] [address] [place] [address], [place] [address] Nov, [facility] [address] [id number] [address] [place] [address], [place] [address] Nov, [facility] [address] [id number] [address] [place] [address], [place] [address] Nov, [facility] [address] [id number] [address] [place] [address], [place] [address] Nov, [facility] [address] [id number] [address] [place] [address], [place] [address] Nov, [facility] [address] [id number] [address] [place] [address], [place] [address] Nov, [facility] [address] [id number] [address] [place] [address], [place] [address] Nov, [facility] [address] [id number] [address] [place] [address], [place] [address] Nov, [facility] [address] [id number] [address] [place] [address], [place] [address] Nov, [facility] [address] [id number] [address] [place] [address], [place] [address] Oct, [facility] [address] [id number] [address] [place] [address], [place] [address] Oct, [facility] [address] [id number] [address] [place] [address], [place] [address] Oct, [facility] [address] [id number] [address] [place] [address], [place] [address] Oct, [facility] [address] [id number] [address] [place] [address], [place] [address] Oct, [facility] [address] [id number] [address] [place] [address], [place] [address] Oct, [facility] [address] [id number] [address] [place] [address], [place] [address] Oct, [facility] [address] [id number] [address] [place] [address], [place] [address] Oct, [facility] [address] [id number] [address] [place] [address], [place] [address] Oct, [facility] [address] [id number] [address] [place] [address], [place] [address] Oct, [facility] [address] [id number] [address] [place] [address], [place] [address] Oct, [facility] [address] [id number] [address] [place] [address], [place] [address] Oct, [facility] [address] [id number] [address] [place] [address], [place] [address] Oct, [facility] [address] [id number] [address] [place] [address], [place] [address] Oct, [facility] [address] [id number] [address] [place] [address], [place] [address] Oct, [facility] [address] [id number] [address] [place] [address], [place] [address] Oct, [facility] [address] [id number] [address] [place] [address], [place] [address] Oct, [facility] [address] [id number] [address] [place] [address], [place] [address] Oct, [facility] [address] [id number] [address] [place] [address], [place] [address] Oct, [facility] [address] [id number] [address] [place] [address], [place] [address] 05 Oct, 2014 [facility] [address] [id number] [address] [place] [address], [place] [address] 05 Oct, 2014 [facility] [address] [id number] [address] [place] [address], [place] [address] Oct, [facility] [address] [id number] [address] [place] [address], [place] [address] Oct, [facility] [address] [id number] [address] [place] [address], [place] [address] Sep, [facility] [address] [id number] [address] [place] [address], [place] [address] Sep, [facility] [address] [id number] [address] [place] [address], [place] [address] Sep, [facility] [address] [id number] [address] [place] [address], [place] [address] Sep, [facility] [address] [id number] [address] [place] [address], [place] [address] Sep, [facility] [address] [id number] [address] [place] [address], [place] [address] Sep, [facility] [address] [id number] [address] [place] [address], [place] [address] Sep, [facility] [address] [id number] [address] [place] [address], [place] [address] Sep, [facility] [address] [id number] [address] [place] [address], [place] [address] Sep, [facility] [address] [id number] [address] [place] [address], [place] [address] Sep, [facility] [address] [id number] [address] [place] [address], [place] [address] Sep, [facility] [address] [id number] [address] [place] [address], [place] [address] Sep, [facility] [address] [id number] [address] [place] [address], [place] [address] Sep, [facility] [address] [id number] [address] [place] [address], [place] [address] Sep, [facility] [address] [id number] [address] [place] [address], [place] [address] Sep, [facility] [address] [id number] [address] [place] [address], [place] [address] Sep, [facility] [address] [id number] [address] [place] [address], [place] [address] Sep, [facility] [address] [id number] [address] [place] [address], [place] [address] Sep, [facility] [address] [id number] [address] [place] [address], [place] [address] Sep, [facility] [address] [id number] [address] [place] [address], [place] [address] Sep, [facility] [address] [id number] [address] [place] [address], [place] [address] Sep, [facility] [address] [id number] [address] [place] [address], [place] [address] Sep, [facility] [address] [id number] [address] [place] [address], [place] [address] Sep, [facility] [address] [id number] [address] [place] [address], [place] [address] Sep, [facility] [address] [id number] [address] [place] [address], [place] [address] Sep, [facility] [address] [id number] [address] [place] [address], [place] [address] Sep, [facility] [address] [id number] [address] [place] [address], [place] [address] Sep, [facility] [address] [id number] [address] [place] [address], [place] [address] Sep, [facility] [address] [id number] [address] [place] [address], [place] [id number] Aug, [facility] [address] [id number] [address] [place] [address], [place] [address] Aug, [facility] [address] [id number] [address] [place] [address], [place] [id number] Aug, [facility] [address] [id number] [address] [place] [address], [place] [address] Aug, [facility] [address] [id number] [address] [place] [address], [place] [id number] Aug, [facility] [address] [id number] [address] [place] [address], [place] [address] Aug, [facility] [address] [id number] [address] [place] [address], [place] [id number] Aug, [facility] [address] [id number] [address] [place] [address], [place] [id number] Aug, [facility] [address] [id number] [address] [place] [address], [place] [id number] Aug, [facility] [address] [id number] [address] [place] [address], [place] [id number] Aug, [facility] [address] [id number] [address] [place] [address], [place] [id number] Aug, [facility] [address] [id number] [address] [place] [id number] Aug, [facility] [address] [id number] [address] [place] [id number] Aug, [facility] [address] [id number] [address] [place] [id number] Aug, [facility] [address] [id number] [address] [place] [address], [place] [address] Aug, [facility] [address] [id number] [address] [place] [address], [place] [id number] Aug, [facility] [address] [id number] [address] [place] [id number] Aug, [facility] [address] [id number] [address] [place] [id number] 17 Aug, 2013 [facility] [address] [id number] [address] [place] [address], [place] [id number] 14 Aug, 2013 [facility] [address] [id number] [address] [place] [id number] 14 Aug, 2013 [facility] [address] [id number] [address] [place] [address], [place] [id number] 09 Aug, 2013 [facility] [address] [id number] [address] [place] [id number] 09 Aug, 2013 [facility] [address] [id number] [address] [place] [address], [place] [id number] Aug, 2013 [facility] [address] [id number] [address] [place] [address], [place] [id number] Aug, 2013 [facility] [address] [id number] [address] [place] [id number] 08 Aug, 2013 [facility] [address] [id number] [address] [place] [id number] 07 Aug, 2013 [facility] [address] [id number] [address] [place] [id number] Aug, 2013 [facility] [address] [id number] [address] [place] [id number] Aug, 2013 [facility] [address] [id number] [address] [place] [id number] 07 Aug, 2013 [facility] [address] [id number] [address] [place] [id number] 30 Jul, 2013 [facility] [address] [id number] [address] [place] [id number] 30 Jul, 2013 [facility] [address] [id number] [address] [place] [id number] 29 Jul, 2013 [facility] [address] [id number] [address] [place] [id number] 29 Jul, 2013 [facility] [address] [id number] [facility] [place] [id number] 19 Jul, 2013 [facility] [address] [id number] [facility] [place] [id number] 19 Jul, 2013 [facility] [address] [id number] [facility] [place] [id number] 18 Jul, 2013 [facility] [address] [id number] [facility] [place] [id number] 18 Jul, 2013 [facility] [address] [id number] [facility] [place] [id number] 17 Jul, 2013 [facility] [address] [id number] [address] [place] [address], [place] [id number] 17 Jul, 2013 [facility] [address] [id number] [address] [place] [address], [place] [id number] 10 Jul, 2013 [facility] [address] [id number] [address] [place] [address], [place] [id number] 10 Jul, 2013 [facility] [address] [id number] [address] [place] [address], [place] [id number] Jun, [facility] [address] [id number] [address] [place] [address], [place] [id number] Jun, [facility] [address] [id number] [address] [place] [address], [place] [id number] Jun, [facility] [address] [id number] [address] [place] [address], [place] [id number] Jun, [facility] [address] [id number] [address] [place] [address], [place] [id number] Jun, [facility] [address] [id number] [address] [place] [address], [place] [id number] Jun, [facility] [address] [id number] [address] [place] [address], [place] [id number] Jun, [facility] [address] [id number] [address] [place], [place] [address] [address] Jun, [facility] [address] [id number] [address] [place] [id number] Jun, [facility] [address] [id number] [address] [place] [id number] Jun, [facility] [address] [id number] [address] [place] [id number] Jun, [facility] [address] [id number] [address] [place] [id number] Jun, [facility] [address] [id number] [address] [place] [id number] May, [facility] [address] [id number] [address] [place] [id number] May, [facility] [address] [id number] [address] [place] [id number] May, IMMUNIZATIONS No Known Immunizations SOCIAL HISTORY Never Assessed REASON FOR VISIT PLAN OF CARE VITAL SIGNS Height 67 in 2014-06-26 Weight 236.5 lbs 2014-06-26 Temperature 97.6 degrees Fahrenheit 2014-06-26 Heart Rate 80 bpm 2014-06-26 Respiratory Rate 18 2014-06-26 Blood pressure systolic 102 mmHg 2014-06-26 Blood pressure diastolic 68 mmHg 2014-06-26 MEDICATIONS Unknown Medications RESULTS No Results PROCEDURES [...]
--- OUTSIDE RECORDS SUMMARY | 2020-05-03 14:31 | XMS REPORT ---
Author Author Tracee AVILA Organization [facility] Address [address] [place] [address] Care Team Providers Care Privacy Attorney Name Role Phone SARAI AVILA Unavailable PROBLEMS Type Condition ICD9-CM Code LDW29-JN Code Onset Dates Condition S tatus SNOMED Code Problem Primary insomnia F51.01 Active 397 2004 Problem Breast pain N64.4 Active 30175025 Problem History of renal transplant Z94.0 Ac tive 325583062 Problem Violation of controlled substance agreement Z91.14 Active 720288516 Problem Mild intermittent asthma without complication J45. 20 Active 645807484 Problem Screening breast examination Z12.39 A ctive 388459922 Problem Irritable bowel syndrome without diarrhea K58.9 Active 15698062 Problem Irritable bowel syndrome with diarrhea K58.0 Active [id number] ALLERGIES No Information ENCOUNTERS Encounter Location Date Diagnosis [facility] [address] [id number] [place] [address] [id number] March, Dental examination Z01.20 [facility] [address] [id number] [address] [place] [address] [id number] Feb, Caries K02.9 [facility] [address] [id number] [address] [place] [address] [id number] Feb, Caries K02.9 [facility] [address] [id number] [address] [place] [address] [id number] Jan, [facility] [address] [id number] [address] [place] [address] [id number] Jan, Caries K02.9 [facility] [address] [id number] [address] [place] [address] [id number] Dec, [facility] [address] [id number] [address] [place] [address] [id number] 18 Dec, 2018 Dental examination Z01.20 an d Caries K02.9 [place] [address] [address] 14 Sep, 2016 Dental examination Z01.20 [place] [address] [place] [id number] [address] [place] [id number] 08 Jan, 2016 Nausea R11.0 ; Irritable bow el syndrome without diarrhea K58.9 and History of renal transplant Z94.0 [place] [address] [id number] 2015 [place] [address] [address] 11 Dec, 2015 Breast pain N64.4 ; Screenin g breast examination Z12.39 and Mild intermittent asthma without complication J45.20 [place] [address] [id number] 10 Dec, 2015 [place] [address] [address] 09 Dec, 2015 Kidney transplant status Z94 .0 ; Personal history of immunosupression therapy Z92.25 ; Recurrent UTI N39.0 and Encounter for screening, unspecified Z13.9 [place] [address] [place] [id number] [address] [place] [address] Oct, [place] [address] [place] [id number] [address] [place] [address] Oct, [place] [address] [place] [id number] [address] [place] [address] Oct, [place] [address] [address] Oct, Hiatal hernia K44.9 and Atyp ical chest pain R07.89 [place] [address] [place] [id number] [address] [place] [address] Oct, [place] [address] [id number] [address] [place] [address] Sep, Kidney replaced by transplan t V42.0 and Bilateral low back pain with sciatica, sciatica laterality unspecified M54.40 [facility] [address] [id number] [address] [place] [address] Sep, [facility] [address] [id number] [address] [place] [address] Sep, Kidney replaced by transplan t V42.0 ; Bilateral low back pain with sciatica, sciatica laterality unspecified M54.40 ; Anxiety F41.9 and Primary insomnia F51.01 [facility] [address] [id number] [address] [place] [address] Aug, [facility] [address] [id number] [address] [place] [address] Aug, [facility] [address] [id number] [address] [place] [address] Aug, Kidney transplant status Z94 .0 ; Personal history of immunosupression therapy Z92.25 ; Recurrent urinary tract infection N39.0 and Screening Z13.9 [facility] [address] [id number] [address] [place] [address] Aug, [facility] [address] [id number] [address] [place] [address] Aug, Encounter for aftercare foll owing kidney transplant Z48.22 ; Chronic radicular pain of lower back M54.16 and PND (post-nasal drip) R09.82 [facility] [address] [id number] [address] [place] [address] Jul, [facility] [address] [id number] [address] [place] [address] Jul, [facility] [address] [id number] [address] [place] [address] Jul, [facility] [address] [id number] [address] [place] [address] Jul, Kidney replaced by transplan t V42.0 ; Depressive disorder, not elsewhere classified 311 ; Anxiety state, unspecified 300.00 ; Insomnia, unspecified 780.52 ; Irritable bowel syndrome 564.1 ; Chronic lumbar pain 724.2 and GERD (gastroesophageal reflux disease) 530.81 [facility] [address] [id number] [address] [place] [address] Jul, [facility] [address] [id number] [address] [place] [address] Jun, [facility] [address] [id number] [address] [place] [address] Jun, [facility] [address] [facility] [id number] [address] [place] [address] Jun, [facility] [address] [facility] [id number] [address] [place] [address] Jun, Kidney replaced by transplan t V42.0 [facility] [address] [facility] [id number] [address] [place] [address] May, [facility] [address] [facility] [id number] [address] [place] [address] May, Depression with anxiety 300. 4 and Skin infection 686.9 [facility] [address] [facility] [id number] [address] [place] [address] May, [facility] [address] [id number] [address] [place] [address] May, Kidney replaced by transplan t V42.0 ; Recurrent UTI (urinary tract infection) 599.0 and Absence of menstruation 626.0 [facility] [address] [facility] [id number] [address] [place] [address] May, [facility] [address] [facility] [id number] [address] [place] [address] May, Depression with anxiety 300. 4 [place] [address] [place] [id number] [address] [place] [address] May, [facility] [address] [place] [id number] [address] [place] [address] Apr, [facility] [address] [place] [id number] [address] [place] [address] Apr, [facility] [address] [place] [id number] [address] [place] [address] Apr, Depression, major, recurrent , mild 296.31 [facility] [address] [place] [id number] [address] [place] [address] Apr, Depression, major, recurrent , mild 296.31 [place] [address] [place] [id number] [address] [place] [address] Apr, Cervicalgia 723.1 ; Lumbago 724.2 ; Anxiety state, unspecified 300.00 ; Nausea 787.02 ; 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 ; Recurrent UTI (urinary tract infection) 599.0 and Knee pain, bilateral 719.46 [place] [address] [place] [id number] [address] [place] [address] March, Depression, major, recurrent , mild 296.31 [facility] [address] [place] [id number] [address] [place] [address] March, [facility] [address] [place] [id number] [address] [place] [address] March, [facility] [address] [place] [id number] [address] [place] [address] March, Lumbago 724.2 ; Insomnia, un specified 780.52 ; Depressive disorder, not elsewhere classified 311 ; 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 ; Anxiety 300.00 ; Allergic rhinitis 477.9 and GERD (gastroesophageal reflux disease) 530.81 [facility] [address] [place] [id number] [address] [place] [address] Feb, [facility] [address] [id number] [address] [place] [address], [place] [address] Feb, [facility] [address] [id number] [address] [place] [address], [place] [address] Jan, [facility] [address] [id number] [address] [place] [address], [place] [address] Jan, [facility] [address] [id number] [address] [place] [address], [place] [address] Jan, [facility] [address] [id number] [address] [place] [address], [place] [address] Jan, [facility] [address] [id number] [address] [place] [address], [place] [address] Dec, [facility] [address] [id number] [address] [place] [address], [place] [address] Dec, [facility] [address] [id number] [address] [place] [address], [place] [address] Dec, [facility] [address] [id number] [address] [place] [address], [place] [address] Dec, [facility] [address] [id number] [address] [place] [address], [place] [address] Dec, [facility] [address] [id number] [address] [place] [address], [place] [address] Dec, [facility] [address] [id number] [address] [place] [address], [place] [address] Dec, [facility] [address] [id number] [address] [place] [address], [place] [address] Nov, [facility] [address] [id number] [address] [place] [address], [place] [address] Nov, [facility] [address] [id number] [address] [place] [address], [place] [address] Nov, [facility] [address] [id number] [address] [place] [address] [address] Nov, [facility] [address] [id number] [address] [place] [address], [place] [address] Nov, [facility] [address] [id number] [address] [place] [address], [place] [address] Nov, [facility] [address] [id number] [address] [place] [address], [place] [address] Nov, [facility] [address] [id number] [address] [place] [address], [place] [address] Nov, [facility] [address] [id number] [address] [place] [address], [place] [address] Nov, [facility] [address] [id number] [address] [place] [address], [place] [address] Nov, [facility] [address] [id number] [address] [place] [address], [place] [address] Nov, [facility] [address] [id number] [address] [place] [address], [place] [address] Nov, [facility] [address] [id number] [address] [place] [address], [place] [address] Nov, [facility] [address] [id number] [address] [place] [address], [place] [address] Nov, [facility] [address] [id number] [address] [place] [address], [place] [address] Nov, [facility] [address] [id number] [address] [place] [address], [place] [address] Nov, [facility] [address] [id number] [address] [place] [address], [place] [address] Nov, [facility] [address] [id number] [address] [place] [address], [place] [address] Nov, [facility] [address] [id number] [address] [place] [address], [place] [address] Nov, [facility] [address] [id number] [address] [place] [address], [place] [address] Nov, [facility] [address] [id number] [address] [place] [address], [place] [address] Nov, [facility] [address] [id number] [address] [place] [address], [place] [address] Nov, [facility] [address] [id number] [address] [place] [address], [place] [address] Nov, [facility] [address] [id number] [address] [place] [address], [place] [address] Nov, [facility] [address] [id number] [address] [place] [address], [place] [address] Nov, [facility] [address] [id number] [address] [place] [address], [place] [address] Nov, [facility] [address] [id number] [address] [place] [address], [place] [address] Nov, [facility] [address] [id number] [address] [place] [address], [place] [address] Nov, [facility] [address] [id number] [address] [place] [address], [place] [address] Nov, [facility] [address] [id number] [address] [place] [address], [place] [address] Oct, [facility] [address] [id number] [address] [place] [address], [place] [address] Oct, [facility] [address] [id number] [address] [place] [address], [place] [address] Oct, [facility] [address] [id number] [address] [place] [address], [place] [address] Oct, [facility] [address] [id number] [address] [place] [address], [place] [address] Oct, [facility] [address] [id number] [address] [place] [address], [place] [address] Oct, [facility] [address] [id number] [address] [place] [address], [place] [address] Oct, [facility] [address] [id number] [address] [place] [address], [place] [address] Oct, [facility] [address] [id number] [address] [place] [address], [place] [address] Oct, [facility] [address] [id number] [address] [place] [address], [place] [address] Oct, [facility] [address] [id number] [address] [place] [address], [place] [address] Oct, [facility] [address] [id number] [address] [place] [address], [place] [address] Oct, [facility] [address] [id number] [address] [place] [address], [place] [address] Oct, [facility] [address] [id number] [address] [place] [address], [place] [address] Oct, [facility] [address] [id number] [address] [place] [address], [place] [address] Oct, [facility] [address] [id number] [address] [place] [address], [place] [address] Oct, [facility] [address] [id number] [address] [place] [address], [place] [address] Oct, [facility] [address] [id number] [address] [place] [address], [place] [address] Oct, [facility] [address] [id number] [address] [place] [address], [place] [address] Oct, [facility] [address] [id number] [address] [place] [address], [place] [address] 05 Oct, 2014 [facility] [address] [id number] [address] [place] [address], [place] [address] 05 Oct, 2014 [facility] [address] [id number] [address] [place] [address], [place] [address] Oct, [facility] [address] [id number] [address] [place] [address], [place] [address] Oct, [facility] [address] [id number] [address] [place] [address], [place] [address] Sep, [facility] [address] [id number] [address] [place] [address], [place] [address] Sep, [facility] [address] [id number] [address] [place] [address], [place] [address] Sep, [facility] [address] [id number] [address] [place] [address], [place] [address] Sep, [facility] [address] [id number] [address] [place] [address], [place] [address] Sep, [facility] [address] [id number] [address] [place] [address], [place] [address] Sep, [facility] [address] [id number] [address] [place] [address], [place] [address] Sep, [facility] [address] [id number] [address] [place] [address], [place] [address] Sep, [facility] [address] [id number] [address] [place] [address], [place] [address] Sep, [facility] [address] [id number] [address] [place] [address], [place] [address] Sep, [facility] [address] [id number] [address] [place] [address], [place] [address] Sep, [facility] [address] [id number] [address] [place] [address], [place] [address] Sep, [facility] [address] [id number] [address] [place] [address], [place] [address] Sep, [facility] [address] [id number] [address] [place] [address], [place] [address] Sep, [facility] [address] [id number] [address] [place] [address], [place] [address] Sep, [facility] [address] [id number] [address] [place] [address], [place] [address] Sep, [facility] [address] [id number] [address] [place] [address], [place] [address] Sep, [facility] [address] [id number] [address] [place] [address], [place] [address] Sep, [facility] [address] [id number] [address] [place] [address], [place] [address] Sep, [facility] [address] [id number] [address] [place] [address], [place] [address] Sep, [facility] [address] [id number] [address] [place] [address], [place] [address] Sep, [facility] [address] [id number] [address] [place] [address], [place] [address] Sep, [facility] [address] [id number] [address] [place] [address], [place] [address] Sep, [facility] [address] [id number] [address] [place] [address], [place] [address] Sep, [facility] [address] [id number] [address] [place] [address], [place] [address] Sep, [facility] [address] [id number] [address] [place] [address], [place] [address] Sep, [facility] [address] [id number] [address] [place] [address], [place] [address] Sep, [facility] [address] [id number] [address] [place] [address], [place] [address] Sep, [facility] [address] [id number] [address] [place] [address], [place] [address] Aug, [facility] [address] [id number] [address] [place] [address], [place] [address] Aug, [facility] [address] [id number] [address] [place] [address], [place] [address] Aug, [facility] [address] [id number] [address] [place] [address], [place] [address] Aug, [facility] [address] [id number] [address] [place] [address], [place] [address] Aug, [facility] [address] [id number] [address] [place] [address], [place] [address] Aug, [facility] [address] [id number] [address] [place] [address], [place] [address] Aug, [facility] [address] [id number] [address] [place] [address], [place] [address] Aug, [facility] [address] [id number] [address] [place] [address], [place] [address] Aug, [facility] [address] [id number] [address] [place] [address], [place] [address] Aug, [facility] [address] [id number] [address] [place] [address], [place] [address] Aug, [facility] [address] [id number] [address] [place] [address] Aug, [facility] [address] [id number] [address] [place] [address] Aug, [facility] [address] [id number] [address] [place] [address] Aug, [facility] [address] [id number] [address] [place] [address], [place] [address] Aug, [facility] [address] [id number] [address] [place] [address], [place] [address] Aug, [facility] [address] [id number] [address] [place] [address] Aug, [facility] [address] [id number] [address] [place] [address] 17 Aug, 2013 [facility] [address] [id number] [address] [place] [address], [place] [address] 14 Aug, 2013 [facility] [address] [id number] [address] [place] [address] 14 Aug, 2013 [facility] [address] [id number] [address] [place] [address], [place] [address] 09 Aug, 2013 [facility] [address] [id number] [address] [place] [address] 09 Aug, 2013 [facility] [address] [id number] [address] [place] [address], [place] [address] Aug, 2013 [facility] [address] [id number] [address] [place] [address], [place] [address] Aug, 2013 [facility] [address] [id number] [address] [place] [address] 08 Aug, 2013 [facility] [address] [id number] [address] [place] [address] 07 Aug, 2013 [facility] [address] [id number] [address] [place] [address] Aug, 2013 [facility] [address] [id number] [address] [place] [address] Aug, 2013 [facility] [address] [id number] [address] [place] [address] 07 Aug, 2013 [facility] [address] [id number] [address] [place] [id number] 30 Jul, 2013 [facility] [address] [id number] [address] [place] [address] 30 Jul, 2013 [facility] [address] [id number] [address] [place] [address] 29 Jul, 2013 [facility] [address] [id number] [address] [place] [address] 29 Jul, 2013 [facility] [address] [id number] [address] [address] 19 Jul, 2013 [facility] [address] [id number] [address] [address] 19 Jul, 2013 [facility] [address] [id number] [address] [address] 18 Jul, 2013 [facility] [address] [id number] [address] [address] 18 Jul, 2013 [facility] [address] [id number] [address] [address] 17 Jul, 2013 [facility] [address] [id number] [address] [place] [address], [place] [address] 17 Jul, 2013 [facility] [address] [id number] [address] [place] [address], [place] [address] 10 Jul, 2013 [facility] [address] [id number] [address] [place] [address], [place] [address] 10 Jul, 2013 [facility] [address] [id number] [address] [place] [address], [place] [address] Jun, [facility] [address] [id number] [address] [place] [address], [place] [address] Jun, [facility] [address] [id number] [address] [place] [address], [place] [address] Jun, [facility] [address] [id number] [address] [place] [address], [place] [address] Jun, [facility] [address] [id number] [address] [place] [address], [place] [address] Jun, [facility] [address] [id number] [address] [place] [address], [place] [address] Jun, [facility] [address] [id number] [address] [place] [address], [place] [address] Jun, [facility] [address] [id number] [address] [place], [place] [address] [address] Jun, [facility] [address] [id number] [address] [place] [address] Jun, [facility] [address] [id number] [address] [place] [address] Jun, [facility] [address] [id number] [address] [place] [address] Jun, [facility] [address] [id number] [address] [place] [address] Jun, [facility] [address] [id number] [address] [place] [address] May, [facility] [address] [id number] [address] [place] [address] May, [facility] [address] [id number] [address] [place] [id number] May, IMMUNIZATIONS No Known Immunizations SOCIAL HISTORY Never Assessed REASON FOR VISIT PLAN OF CARE VITAL SIGNS MEDICATIONS Unknown Medications RESULTS No Results PROCEDURES Procedure Date Ordered Result Body Site X-RAY EXAM OF NECK SPINE Jun 27, 2014 INSTRUCTIONS MEDICATIONS ADMINISTERED No Known Medications [...]
--- OUTSIDE RECORDS SUMMARY | 2020-05-03 14:31 | XMS REPORT ---
Author Author Tracee AVILA Organization [facility] Address [address] [place] [address] Care Team Providers Care Glass Installer Name Role Phone SARAI AVILA Unavailable PROBLEMS Type Condition ICD9-CM Code BGI22-LC Code Onset Dates Condition S tatus SNOMED Code Problem Primary insomnia F51.01 Active 397 2004 Problem Breast pain N64.4 Active 86950916 Problem History of renal transplant Z94.0 Ac tive 627964496 Problem Violation of controlled substance agreement Z91.14 Active 911580144 Problem Mild intermittent asthma without complication J45. 20 Active 390064904 Problem Screening breast examination Z12.39 A ctive 380318060 Problem Irritable bowel syndrome without diarrhea K58.9 Active 53969669 Problem Irritable bowel syndrome with diarrhea K58.0 Active [id number] ALLERGIES No Information ENCOUNTERS Encounter Location Date Diagnosis [facility] [address] [id number] [place] [address] [id number] March, Dental examination Z01.20 [facility] [address] [id number] [address] [place] [address] [id number] Feb, Caries K02.9 [facility] [address] [id number] [address] [place] [address] [id number] Feb, Caries K02.9 [facility] [address] [id number] [address] [place] [address] [id number] Jan, [facility] [address] [id number] [address] [place] [address] [id number] Jan, Caries K02.9 [facility] [address] [id number] [address] [place] [address] [id number] Dec, [facility] [address] [id number] [address] [place] [address] [id number] Dec, 2018 Dental examination Z01.20 an d Caries K02.9 [place] [address] [id number] 14 Sep, 2016 Dental examination Z01.20 [place] [address] [place] [id number] [address] [place] [address] 08 Jan, 2016 Nausea R11.0 ; Irritable bow el syndrome without diarrhea K58.9 and History of renal transplant Z94.0 [place] [address] [id number] 2015 [place] [address] [id number] 11 Dec, 2015 Breast pain N64.4 ; Screenin g breast examination Z12.39 and Mild intermittent asthma without complication J45.20 [place] [address] [id number] 10 Dec, 2015 [place] [address] [id number] 09 Dec, 2015 Kidney transplant status Z94 .0 ; Personal history of immunosupression therapy Z92.25 ; Recurrent UTI N39.0 and Encounter for screening, unspecified Z13.9 [place] [address] [place] [id number] [address] [place] [address] Oct, [place] [address] [place] [id number] [address] [place] [address] Oct, [place] [address] [place] [id number] [address] [place] [address] Oct, [place] [address] [address] Oct, Hiatal hernia K44.9 and Atyp ical chest pain R07.89 [place] [address] [place] [id number] [address] [place] [address] Oct, [place] [address] [id number] [address] [place] [address] Sep, Kidney replaced by transplan t V42.0 and Bilateral low back pain with sciatica, sciatica laterality unspecified M54.40 [facility] [address] [id number] [address] [place] [address] Sep, [facility] [address] [id number] [address] [place] [address] Sep, Kidney replaced by transplan t V42.0 ; Bilateral low back pain with sciatica, sciatica laterality unspecified M54.40 ; Anxiety F41.9 and Primary insomnia F51.01 [facility] [address] [id number] [address] [place] [address] Aug, [facility] [address] [id number] [address] [place] [address] Aug, [facility] [address] [id number] [address] [place] [address] Aug, Kidney transplant status Z94 .0 ; Personal history of immunosupression therapy Z92.25 ; Recurrent urinary tract infection N39.0 and Screening Z13.9 [facility] [address] [id number] [address] [place] [address] Aug, [facility] [address] [id number] [address] [place] [address] Aug, Encounter for aftercare foll owing kidney transplant Z48.22 ; Chronic radicular pain of lower back M54.16 and PND (post-nasal drip) R09.82 [facility] [address] [id number] [address] [place] [address] Jul, [facility] [address] [id number] [address] [place] [address] Jul, [facility] [address] [id number] [address] [place] [address] Jul, [facility] [address] [id number] [address] [place] [address] Jul, Kidney replaced by transplan t V42.0 ; Depressive disorder, not elsewhere classified 311 ; Anxiety state, unspecified 300.00 ; Insomnia, unspecified 780.52 ; Irritable bowel syndrome 564.1 ; Chronic lumbar pain 724.2 and GERD (gastroesophageal reflux disease) 530.81 [facility] [address] [id number] [address] [place] [address] Jul, [facility] [address] [id number] [address] [place] [address] Jun, [facility] [address] [id number] [address] [place] [address] Jun, [facility] [address] [facility] [id number] [address] [place] [address] Jun, [facility] [address] [facility] [id number] [address] [place] [address] Jun, Kidney replaced by transplan t V42.0 [facility] [address] [facility] [id number] [address] [place] [address] May, [facility] [address] [facility] [id number] [address] [place] [address] May, Depression with anxiety 300. 4 and Skin infection 686.9 [facility] [address] [facility] [id number] [address] [place] [address] May, [facility] [address] [id number] [address] [place] [address] May, Kidney replaced by transplan t V42.0 ; Recurrent UTI (urinary tract infection) 599.0 and Absence of menstruation 626.0 [facility] [address] [facility] [id number] [address] [place] [address] May, [facility] [address] [facility] [id number] [address] [place] [address] May, Depression with anxiety 300. 4 [place] [address] [place] [id number] [address] [place] [address] May, [facility] [address] [place] [id number] [address] [place] [address] Apr, [facility] [address] [place] [id number] [address] [place] [address] Apr, [facility] [address] [place] [id number] [address] [place] [address] Apr, Depression, major, recurrent , mild 296.31 [facility] [address] [place] [id number] [address] [place] [address] Apr, Depression, major, recurrent , mild 296.31 [place] [address] [place] [id number] [address] [place] [address] Apr, Cervicalgia 723.1 ; Lumbago 724.2 ; Anxiety state, unspecified 300.00 ; Nausea 787.02 ; 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 ; Recurrent UTI (urinary tract infection) 599.0 and Knee pain, bilateral 719.46 [place] [address] [place] [id number] [address] [place] [address] March, Depression, major, recurrent , mild 296.31 [facility] [address] [place] [id number] [address] [place] [address] March, [facility] [address] [place] [id number] [address] [place] [address] March, [facility] [address] [place] [id number] [address] [place] [address] March, Lumbago 724.2 ; Insomnia, un specified 780.52 ; Depressive disorder, not elsewhere classified 311 ; 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 ; Anxiety 300.00 ; Allergic rhinitis 477.9 and GERD (gastroesophageal reflux disease) 530.81 [facility] [address] [place] [id number] [address] [place] [address] Feb, [facility] [address] [id number] [address] [place] [address], [place] [address] Feb, [facility] [address] [id number] [address] [place] [address], [place] [address] Jan, [facility] [address] [id number] [address] [place] [address], [place] [address] Jan, [facility] [address] [id number] [address] [place] [address], [place] [address] Jan, [facility] [address] [id number] [address] [place] [address], [place] [address] Jan, [facility] [address] [id number] [address] [place] [address], [place] [address] Dec, [facility] [address] [id number] [address] [place] [address], [place] [address] Dec, [facility] [address] [id number] [address] [place] [address], [place] [address] Dec, [facility] [address] [id number] [address] [place] [address], [place] [address] Dec, [facility] [address] [id number] [address] [place] [address], [place] [address] Dec, [facility] [address] [id number] [address] [place] [address], [place] [address] Dec, [facility] [address] [id number] [address] [place] [address], [place] [address] Dec, [facility] [address] [id number] [address] [place] [address], [place] [address] Nov, [facility] [address] [id number] [address] [place] [address], [place] [address] Nov, [facility] [address] [id number] [address] [place] [address], [place] [address] Nov, [facility] [address] [id number] [address] [place] [address] [address] Nov, [facility] [address] [id number] [address] [place] [address], [place] [address] Nov, [facility] [address] [id number] [address] [place] [address], [place] [address] Nov, [facility] [address] [id number] [address] [place] [address], [place] [address] Nov, [facility] [address] [id number] [address] [place] [address], [place] [address] Nov, [facility] [address] [id number] [address] [place] [address], [place] [address] Nov, [facility] [address] [id number] [address] [place] [address], [place] [address] Nov, [facility] [address] [id number] [address] [place] [address], [place] [address] Nov, [facility] [address] [id number] [address] [place] [address], [place] [address] Nov, [facility] [address] [id number] [address] [place] [address], [place] [address] Nov, [facility] [address] [id number] [address] [place] [address], [place] [address] Nov, [facility] [address] [id number] [address] [place] [address], [place] [address] Nov, [facility] [address] [id number] [address] [place] [address], [place] [address] Nov, [facility] [address] [id number] [address] [place] [address], [place] [address] Nov, [facility] [address] [id number] [address] [place] [address], [place] [address] Nov, [facility] [address] [id number] [address] [place] [address], [place] [address] Nov, [facility] [address] [id number] [address] [place] [address], [place] [address] Nov, [facility] [address] [id number] [address] [place] [address], [place] [address] Nov, [facility] [address] [id number] [address] [place] [address], [place] [address] Nov, [facility] [address] [id number] [address] [place] [address], [place] [address] Nov, [facility] [address] [id number] [address] [place] [address], [place] [address] Nov, [facility] [address] [id number] [address] [place] [address], [place] [address] Nov, [facility] [address] [id number] [address] [place] [address], [place] [address] Nov, [facility] [address] [id number] [address] [place] [address], [place] [address] Nov, [facility] [address] [id number] [address] [place] [address], [place] [address] Nov, [facility] [address] [id number] [address] [place] [address], [place] [address] Nov, [facility] [address] [id number] [address] [place] [address], [place] [address] Oct, [facility] [address] [id number] [address] [place] [address], [place] [address] Oct, [facility] [address] [id number] [address] [place] [address], [place] [address] Oct, [facility] [address] [id number] [address] [place] [address], [place] [address] Oct, [facility] [address] [id number] [address] [place] [address], [place] [address] Oct, [facility] [address] [id number] [address] [place] [address], [place] [address] Oct, [facility] [address] [id number] [address] [place] [address], [place] [address] Oct, [facility] [address] [id number] [address] [place] [address], [place] [address] Oct, [facility] [address] [id number] [address] [place] [address], [place] [address] Oct, [facility] [address] [id number] [address] [place] [address], [place] [address] Oct, [facility] [address] [id number] [address] [place] [address], [place] [address] Oct, [facility] [address] [id number] [address] [place] [address], [place] [address] Oct, [facility] [address] [id number] [address] [place] [address], [place] [address] Oct, [facility] [address] [id number] [address] [place] [address], [place] [address] Oct, [facility] [address] [id number] [address] [place] [address], [place] [address] Oct, [facility] [address] [id number] [address] [place] [address], [place] [address] Oct, [facility] [address] [id number] [address] [place] [address], [place] [address] Oct, [facility] [address] [id number] [address] [place] [address], [place] [address] Oct, [facility] [address] [id number] [address] [place] [address], [place] [address] Oct, [facility] [address] [id number] [address] [place] [address], [place] [address] 05 Oct, 2014 [facility] [address] [id number] [address] [place] [address], [place] [address] 05 Oct, 2014 [facility] [address] [id number] [address] [place] [address], [place] [address] Oct, [facility] [address] [id number] [address] [place] [address], [place] [address] Oct, [facility] [address] [id number] [address] [place] [address], [place] [address] Sep, [facility] [address] [id number] [address] [place] [address], [place] [address] Sep, [facility] [address] [id number] [address] [place] [address], [place] [address] Sep, [facility] [address] [id number] [address] [place] [address], [place] [address] Sep, [facility] [address] [id number] [address] [place] [address], [place] [address] Sep, [facility] [address] [id number] [address] [place] [address], [place] [address] Sep, [facility] [address] [id number] [address] [place] [address], [place] [address] Sep, [facility] [address] [id number] [address] [place] [address], [place] [address] Sep, [facility] [address] [id number] [address] [place] [address], [place] [address] Sep, [facility] [address] [id number] [address] [place] [address], [place] [address] Sep, [facility] [address] [id number] [address] [place] [address], [place] [address] Sep, [facility] [address] [id number] [address] [place] [address], [place] [address] Sep, [facility] [address] [id number] [address] [place] [address], [place] [address] Sep, [facility] [address] [id number] [address] [place] [address], [place] [address] Sep, [facility] [address] [id number] [address] [place] [address], [place] [address] Sep, [facility] [address] [id number] [address] [place] [address], [place] [address] Sep, [facility] [address] [id number] [address] [place] [address], [place] [address] Sep, [facility] [address] [id number] [address] [place] [address], [place] [address] Sep, [facility] [address] [id number] [address] [place] [address], [place] [address] Sep, [facility] [address] [id number] [address] [place] [address], [place] [address] Sep, [facility] [address] [id number] [address] [place] [address], [place] [address] Sep, [facility] [address] [id number] [address] [place] [address], [place] [address] Sep, [facility] [address] [id number] [address] [place] [address], [place] [address] Sep, [facility] [address] [id number] [address] [place] [address], [place] [address] Sep, [facility] [address] [id number] [address] [place] [address], [place] [address] Sep, [facility] [address] [id number] [address] [place] [address], [place] [address] Sep, [facility] [address] [id number] [address] [place] [address], [place] [address] Sep, [facility] [address] [id number] [address] [place] [address], [place] [address] Sep, [facility] [address] [id number] [address] [place] [address], [place] [address] Aug, [facility] [address] [id number] [address] [place] [address], [place] [address] Aug, [facility] [address] [id number] [address] [place] [address], [place] [address] Aug, [facility] [address] [id number] [address] [place] [address], [place] [address] Aug, [facility] [address] [id number] [address] [place] [address], [place] [address] Aug, [facility] [address] [id number] [address] [place] [address], [place] [address] Aug, [facility] [address] [id number] [address] [place] [address], [place] [address] Aug, [facility] [address] [id number] [address] [place] [address], [place] [address] Aug, [facility] [address] [id number] [address] [place] [address], [place] [address] Aug, [facility] [address] [id number] [address] [place] [address], [place] [address] Aug, [facility] [address] [id number] [address] [place] [address], [place] [address] Aug, [facility] [address] [id number] [address] [place] [address] Aug, [facility] [address] [id number] [address] [place] [address] Aug, [facility] [address] [id number] [address] [place] [address] Aug, [facility] [address] [id number] [address] [place] [address], [place] [address] Aug, [facility] [address] [id number] [address] [place] [address], [place] [address] Aug, [facility] [address] [id number] [address] [place] [address] Aug, [facility] [address] [id number] [address] [place] [id number] 17 Aug, 2013 [facility] [address] [id number] [address] [place] [address], [place] [address] 14 Aug, 2013 [facility] [address] [id number] [address] [place] [address] 14 Aug, 2013 [facility] [address] [id number] [address] [place] [address], [place] [address] 09 Aug, 2013 [facility] [address] [id number] [address] [place] [address] 09 Aug, 2013 [facility] [address] [id number] [address] [place] [address], [place] [address] Aug, 2013 [facility] [address] [id number] [address] [place] [address], [place] [address] Aug, 2013 [facility] [address] [id number] [address] [place] [id number] 08 Aug, 2013 [facility] [address] [id number] [address] [place] [id number] 07 Aug, 2013 [facility] [address] [id number] [address] [place] [id number] Aug, 2013 [facility] [address] [id number] [address] [place] [address] Aug, 2013 [facility] [address] [id number] [address] [place] [id number] 07 Aug, 2013 [facility] [address] [id number] [address] [place] [id number] 30 Jul, 2013 [facility] [address] [id number] [address] [place] [id number] 30 Jul, 2013 [facility] [address] [id number] [address] [place] [id number] 29 Jul, 2013 [facility] [address] [id number] [address] [place] [id number] 29 Jul, 2013 [facility] [address] [id number] [address] [place] [address] 19 Jul, 2013 [facility] [address] [id number] [address] [place] [address] 19 Jul, 2013 [facility] [address] [id number] [address] [place] [address] 18 Jul, 2013 [facility] [address] [id number] [address] [place] [address] 18 Jul, 2013 [facility] [address] [id number] [address] [place] [address] 17 Jul, 2013 [facility] [address] [id number] [address] [place] [address], [place] [address] 17 Jul, 2013 [facility] [address] [id number] [address] [place] [address], [place] [address] 10 Jul, 2013 [facility] [address] [id number] [address] [place] [address], [place] [address] 10 Jul, 2013 [facility] [address] [id number] [address] [place] [address], [place] [address] Jun, [facility] [address] [id number] [address] [place] [address], [place] [address] Jun, [facility] [address] [id number] [address] [place] [address], [place] [id number] Jun, [facility] [address] [id number] [address] [place] [address], [place] [address] Jun, [facility] [address] [id number] [address] [place] [address], [place] [address] Jun, [facility] [address] [id number] [address] [place] [address], [place] [address] Jun, [facility] [address] [id number] [address] [place] [address], [place] [address] Jun, [facility] [address] [id number] [address] [place], [place] [address] [address] Jun, [facility] [address] [id number] [address] [place] [id number] Jun, [facility] [address] [id number] [address] [place] [address] Jun, [facility] [address] [id number] [address] [place] [address] Jun, [facility] [address] [id number] [address] [place] [id number] Jun, [facility] [address] [id number] [address] [place] [address] May, [facility] [address] [id number] [address] [place] [id number] May, [facility] [address] [facility] [id number] [address] [place] [id number] May, IMMUNIZATIONS No Known Immunizations SOCIAL HISTORY [...]
--- OUTSIDE RECORDS SUMMARY | 2020-05-03 14:31 | XMS REPORT ---
Author Author Tracee AVILA Organization [facility] Address [address] [place] [address] Care Team Providers Care Talent Consultant Name Role Phone SARAI AVILA Unavailable PROBLEMS Type Condition ICD9-CM Code URT35-IX Code Onset Dates Condition S tatus SNOMED Code Problem Primary insomnia F51.01 Active 397 2004 Problem Breast pain N64.4 Active 71739402 Problem History of renal transplant Z94.0 Ac tive 739336136 Problem Violation of controlled substance agreement Z91.14 Active 901430584 Problem Mild intermittent asthma without complication J45. 20 Active 847091249 Problem Screening breast examination Z12.39 A ctive 696189795 Problem Irritable bowel syndrome without diarrhea K58.9 Active 45611900 Problem Irritable bowel syndrome with diarrhea K58.0 Active 404589476 ALLERGIES No Information ENCOUNTERS Encounter Location Date Diagnosis [facility] [address] [id number] [place] [address] [id number] March, Dental examination Z01.20 [facility] [address] [id number] [address] [place] [address] [id number] Feb, Caries K02.9 [facility] [address] [id number] [address] [place] [address] [id number] Feb, Caries K02.9 [facility] [address] [id number] [address] [place] [address] [id number] Jan, [facility] [address] [id number] [address] [place] [address] [id number] Jan, Caries K02.9 [facility] [address] [id number] [address] [place] [address] [id number] Dec, [facility] [address] [id number] [address] [place] [address] [id number] 18 Dec, 2018 Dental examination Z01.20 an d Caries K02.9 [facility] [address] [id number] 14 Sep, 2016 Dental examination Z01.20 [place] [address] [address] [place] [id number] [address] [place] [id number] 08 Jan, 2016 Nausea R11.0 ; Irritable bow el syndrome without diarrhea K58.9 and History of renal transplant Z94.0 [place] [address] [id number] 2015 [place] [address] [id number] 11 Dec, 2015 Breast pain N64.4 ; Screenin g breast examination Z12.39 and Mild intermittent asthma without complication J45.20 [place] [address] [id number] 10 Dec, 2015 [place] [address] [id number] 09 Dec, 2015 Kidney transplant status Z94 .0 ; Personal history of immunosupression therapy Z92.25 ; Recurrent UTI N39.0 and Encounter for screening, unspecified Z13.9 [place] [address] [address] [place] [id number] [address] [place] [phone] Oct, [place] [address] [place] [id number] [address] [place] [phone] Oct, [place] [address] [place] [id number] [address] [place] [phone] Oct, [place] [address] [id number] Oct, Hiatal hernia K44.9 and Atyp ical chest pain R07.89 [place] [address] [address] [place] [id number] [address] [place] [phone] Oct, [place] [address] [id number] [address] [place] [id number] Sep, Kidney replaced by transplan t V42.0 and Bilateral low back pain with sciatica, sciatica laterality unspecified M54.40 [facility] [address] [id number] [address] [place] [phone] Sep, [facility] [address] [id number] [address] [place] [phone] Sep, Kidney replaced by transplan t V42.0 ; Bilateral low back pain with sciatica, sciatica laterality unspecified M54.40 ; Anxiety F41.9 and Primary insomnia F51.01 [facility] [address] [id number] [address] [place] [phone] Aug, [facility] [address] [id number] [address] [place] [phone] Aug, [facility] [address] [id number] [address] [place] [id number] Aug, Kidney transplant status Z94 .0 ; Personal history of immunosupression therapy Z92.25 ; Recurrent urinary tract infection N39.0 and Screening Z13.9 [facility] [address] [id number] [address] [place] [id number] Aug, [facility] [address] [id number] [address] [place] [id number] Aug, Encounter for aftercare foll owing kidney transplant Z48.22 ; Chronic radicular pain of lower back M54.16 and PND (post-nasal drip) R09.82 [facility] [address] [id number] [address] [place] [phone] Jul, [facility] [address] [id number] [address] [place] [phone] Jul, [facility] [address] [id number] [address] [place] [phone] Jul, [facility] [address] [id number] [address] [place] [phone] Jul, Kidney replaced by transplan t V42.0 ; Depressive disorder, not elsewhere classified 311 ; Anxiety state, unspecified 300.00 ; Insomnia, unspecified 780.52 ; Irritable bowel syndrome 564.1 ; Chronic lumbar pain 724.2 and GERD (gastroesophageal reflux disease) 530.81 [facility] [address] [id number] [address] [place] [phone] Jul, [facility] [address] [id number] [address] [place] [phone] Jun, [facility] [address] [id number] [address] [place] [id number] Jun, [facility] [address] [facility] [id number] [address] [place] [phone] Jun, [facility] [address] [facility] [id number] [address] [place] [phone] Jun, Kidney replaced by transplan t V42.0 [facility] [address] [facility] [id number] [address] [place] [phone] May, [facility] [address] [facility] [id number] [address] [place] [phone] May, Depression with anxiety 300. 4 and Skin infection 686.9 [facility] [address] [facility] [id number] [address] [place] [address] May, [facility] [address] [id number] [address] [place] [phone] May, Kidney replaced by transplan t V42.0 ; Recurrent UTI (urinary tract infection) 599.0 and Absence of menstruation 626.0 [facility] [address] [facility] [id number] [address] [place] [phone] May, [facility] [address] [facility] [id number] [address] [place] [phone] May, Depression with anxiety 300. 4 [place] [address] [address] [place] [id number] [address] [place] [phone] May, [facility] [address] [place] [id number] [address] [place] [address] Apr, [facility] [address] [place] [id number] [address] [place] [id number] Apr, [facility] [address] [place] [id number] [address] [place] [phone] Apr, Depression, major, recurrent , mild 296.31 [facility] [address] [place] [id number] [address] [place] [phone] Apr, Depression, major, recurrent , mild 296.31 [place] [address] [address] [place] [id number] [address] [place] [address] Apr, Cervicalgia 723.1 ; Lumbago 724.2 ; Anxiety state, unspecified 300.00 ; Nausea 787.02 ; 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 ; Recurrent UTI (urinary tract infection) 599.0 and Knee pain, bilateral 719.46 [place] [address] [address] [place] [id number] [address] [place] [phone] March, Depression, major, recurrent , mild 296.31 [facility] [address] [place] [id number] [address] [place] [phone] March, [facility] [address] [place] [id number] [address] [place] [phone] March, [facility] [address] [place] [id number] [address] [place] [id number] March, Lumbago 724.2 ; Insomnia, un specified 780.52 ; Depressive disorder, not elsewhere classified 311 ; 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 ; Anxiety 300.00 ; Allergic rhinitis 477.9 and GERD (gastroesophageal reflux disease) 530.81 [facility] [address] [place] [id number] [address] [place] [phone] Feb, [facility] [address] [id number] [address] [place] [address], [place] [address] Feb, [facility] [address] [id number] [address] [place] [address], [place] [address] Jan, [facility] [address] [id number] [address] [place] [address], [place] [address] Jan, [facility] [address] [id number] [address] [place] [address], [place] [address] Jan, [facility] [address] [id number] [address] [place] [address], [place] [address] Jan, [facility] [address] [id number] [address] [place] [address], [place] [address] Dec, [facility] [address] [id number] [address] [place] [address], [place] [address] Dec, [facility] [address] [id number] [address] [place] [address], [place] [address] Dec, [facility] [address] [id number] [address] [place] [address], [place] [address] Dec, [facility] [address] [id number] [address] [place] [address], [place] [address] Dec, [facility] [address] [id number] [address] [place] [address], [place] [address] Dec, [facility] [address] [id number] [address] [place] [address], [place] [address] Dec, [facility] [address] [id number] [address] [place] [address], [place] [address] Nov, [facility] [address] [id number] [address] [place] [address], [place] [address] Nov, [facility] [address] [id number] [address] [place] [address], [place] [address] Nov, [facility] [address] [id number] [address] [place] [address] [address] Nov, [facility] [address] [id number] [address] [place] [address], [place] [address] Nov, [facility] [address] [id number] [address] [place] [address], [place] [address] Nov, [facility] [address] [id number] [address] [place] [address], [place] [address] Nov, [facility] [address] [id number] [address] [place] [address], [place] [address] Nov, [facility] [address] [id number] [address] [place] [address], [place] [address] Nov, [facility] [address] [id number] [address] [place] [address], [place] [address] Nov, [facility] [address] [id number] [address] [place] [address], [place] [address] Nov, [facility] [address] [id number] [address] [place] [address], [place] [address] Nov, [facility] [address] [id number] [address] [place] [address], [place] [address] Nov, [facility] [address] [id number] [address] [place] [address], [place] [address] Nov, [facility] [address] [id number] [address] [place] [address], [place] [address] Nov, [facility] [address] [id number] [address] [place] [address], [place] [address] Nov, [facility] [address] [id number] [address] [place] [address], [place] [address] Nov, [facility] [address] [id number] [address] [place] [address], [place] [address] Nov, [facility] [address] [id number] [address] [place] [address], [place] [address] Nov, [facility] [address] [id number] [address] [place] [address], [place] [address] Nov, [facility] [address] [id number] [address] [place] [address], [place] [address] Nov, [facility] [address] [id number] [address] [place] [address], [place] [address] Nov, [facility] [address] [id number] [address] [place] [address], [place] [address] Nov, [facility] [address] [id number] [address] [place] [address], [place] [address] Nov, [facility] [address] [id number] [address] [place] [address], [place] [address] Nov, [facility] [address] [id number] [address] [place] [address], [place] [address] Nov, [facility] [address] [id number] [address] [place] [address], [place] [address] Nov, [facility] [address] [id number] [address] [place] [address], [place] [address] Nov, [facility] [address] [id number] [address] [place] [address], [place] [address] Nov, [facility] [address] [id number] [address] [place] [address], [place] [address] Oct, [facility] [address] [id number] [address] [place] [address], [place] [address] Oct, [facility] [address] [id number] [address] [place] [address], [place] [address] Oct, [facility] [address] [id number] [address] [place] [address], [place] [address] Oct, [facility] [address] [id number] [address] [place] [address], [place] [address] Oct, [facility] [address] [id number] [address] [place] [address], [place] [address] Oct, [facility] [address] [id number] [address] [place] [address], [place] [address] Oct, [facility] [address] [id number] [address] [place] [address], [place] [address] Oct, [facility] [address] [id number] [address] [place] [address], [place] [address] Oct, [facility] [address] [id number] [address] [place] [address], [place] [address] Oct, [facility] [address] [id number] [address] [place] [address], [place] [address] Oct, [facility] [address] [id number] [address] [place] [address], [place] [address] Oct, [facility] [address] [id number] [address] [place] [address], [place] [address] Oct, [facility] [address] [id number] [address] [place] [address], [place] [address] Oct, [facility] [address] [id number] [address] [place] [address], [place] [address] Oct, [facility] [address] [id number] [address] [place] [address], [place] [address] Oct, [facility] [address] [id number] [address] [place] [address], [place] [address] Oct, [facility] [address] [id number] [address] [place] [address], [place] [address] Oct, [facility] [address] [id number] [address] [place] [address], [place] [address] Oct, [facility] [address] [id number] [address] [place] [address], [place] [address] 05 Oct, 2014 [facility] [address] [id number] [address] [place] [address], [place] [address] 05 Oct, 2014 [facility] [address] [id number] [address] [place] [address], [place] [address] Oct, [facility] [address] [id number] [address] [place] [address], [place] [address] Oct, [facility] [address] [id number] [address] [place] [address], [place] [address] Sep, [facility] [address] [id number] [address] [place] [address], [place] [address] Sep, [facility] [address] [id number] [address] [place] [address], [place] [address] Sep, [facility] [address] [id number] [address] [place] [address], [place] [address] Sep, [facility] [address] [id number] [address] [place] [address], [place] [address] Sep, [facility] [address] [id number] [address] [place] [address], [place] [address] Sep, [facility] [address] [id number] [address] [place] [address], [place] [address] Sep, [facility] [address] [id number] [address] [place] [address], [place] [address] Sep, [facility] [address] [id number] [address] [place] [address], [place] [address] Sep, [facility] [address] [id number] [address] [place] [address], [place] [address] Sep, [facility] [address] [id number] [address] [place] [address], [place] [address] Sep, [facility] [address] [id number] [address] [place] [address], [place] [address] Sep, [facility] [address] [id number] [address] [place] [address], [place] [address] Sep, [facility] [address] [id number] [address] [place] [address], [place] [address] Sep, [facility] [address] [id number] [address] [place] [address], [place] [address] Sep, [facility] [address] [id number] [address] [place] [address], [place] [address] Sep, [facility] [address] [id number] [address] [place] [address], [place] [address] Sep, [facility] [address] [id number] [address] [place] [address], [place] [address] Sep, [facility] [address] [id number] [address] [place] [address], [place] [address] Sep, [facility] [address] [id number] [address] [place] [address], [place] [address] Sep, [facility] [address] [id number] [address] [place] [address], [place] [address] Sep, [facility] [address] [id number] [address] [place] [address], [place] [address] Sep, [facility] [address] [id number] [address] [place] [address], [place] [address] Sep, [facility] [address] [id number] [address] [place] [address], [place] [address] Sep, [facility] [address] [id number] [address] [place] [address], [place] [address] Sep, [facility] [address] [id number] [address] [place] [address], [place] [address] Sep, [facility] [address] [id number] [address] [place] [address], [place] [address] Sep, [facility] [address] [id number] [address] [place] [address], [place] [address] Sep, [facility] [address] [id number] [address] [place] [address], [place] [id number] Aug, [facility] [address] [id number] [address] [place] [address], [place] [id number] Aug, [facility] [address] [id number] [address] [place] [address], [place] [id number] Aug, [facility] [address] [id number] [address] [place] [address], [place] [id number] Aug, [facility] [address] [id number] [address] [place] [address], [place] [id number] Aug, [facility] [address] [id number] [address] [place] [address], [place] [id number] Aug, [facility] [address] [id number] [address] [place] [address], [place] [id number] Aug, [facility] [address] [id number] [address] [place] [address], [place] [id number] Aug, [facility] [address] [id number] [address] [place] [address], [place] [id number] Aug, [facility] [address] [id number] [address] [place] [address], [place] [id number] Aug, [facility] [address] [id number] [address] [place] [address], [place] [id number] Aug, [facility] [address] [id number] [address] [place] [id number] Aug, [facility] [address] [id number] [address] [place] [id number] Aug, [facility] [address] [id number] [address] [place] [id number] Aug, [facility] [address] [id number] [address] [place] [address], [place] [id number] Aug, [facility] [address] [id number] [address] [place] [address], [place] [id number] Aug, [facility] [address] [id number] [address] [place] [id number] Aug, [facility] [address] [id number] [address] [place] [id number] 17 Aug, 2013 [facility] [address] [id number] [address] [place] [address], [place] [id number] 14 Aug, 2013 [facility] [address] [id number] [address] [place] [id number] 14 Aug, 2013 [facility] [address] [id number] [address] [place] [address], [place] [id number] 09 Aug, 2013 [facility] [address] [id number] [address] [place] [id number] 09 Aug, 2013 [facility] [address] [id number] [address] [place] [address], [place] [id number] Aug, 2013 [facility] [address] [id number] [address] [place] [address], [place] [id number] Aug, 2013 [facility] [address] [id number] [address] [place] [id number] 08 Aug, 2013 [facility] [address] [id number] [address] [place] [id number] 07 Aug, 2013 [facility] [address] [id number] [address] [place] [id number] Aug, 2013 [facility] [address] [id number] [address] [place] [id number] Aug, 2013 [facility] [address] [id number] [address] [place] [id number] 07 Aug, 2013 [facility] [address] [id number] [address] [place] [id number] 30 Jul, 2013 [facility] [address] [id number] [address] [place] [id number] 30 Jul, 2013 [facility] [address] [id number] [address] [place] [id number] 29 Jul, 2013 [facility] [address] [id number] [address] [place] [id number] 29 Jul, 2013 [facility] [address] [id number] [facility] [id number] 19 Jul, 2013 [facility] [address] [id number] [facility] [place] [id number] 19 Jul, 2013 [facility] [address] [id number] [facility] [place] [id number] 18 Jul, 2013 [facility] [address] [id number] [facility] [place] [id number] 18 Jul, 2013 [facility] [address] [id number] [facility] [place] [id number] 17 Jul, 2013 [facility] [address] [id number] [address] [place] [address], [place] [id number] 17 Jul, 2013 [facility] [address] [id number] [address] [place] [address], [place] [id number] 10 Jul, 2013 [facility] [address] [id number] [address] [place] [address], [place] [id number] 10 Jul, 2013 [facility] [address] [id number] [address] [place] [address], [place] [id number] Jun, [facility] [address] [id number] [address] [place] [address], [place] [address] Jun, [facility] [address] [id number] [address] [place] [address], [place] [address] Jun, [facility] [address] [id number] [address] [place] [address], [place] [address] Jun, [facility] [address] [id number] [address] [place] [address], [place] [address] Jun, [facility] [address] [id number] [address] [place] [address], [place] [address] Jun, [facility] [address] [id number] [address] [place] [address], [place] [address] Jun, [facility] [address] [id number] [address] [place] [address] [address] Jun, [facility] [address] [id number] [address] [place] [id number] Jun, [facility] [address] [id number] [address] [place] [address] Jun, [facility] [address] [id number] [address] [place] [id number] Jun, [facility] [address] [id number] [address] [place] [address] Jun, [facility] [address] [id number] [address] [place] [address] May, [facility] [address] [id number] [address] [place] [id number] May, [facility] [address] [id number] [address] [place] [address] May, IMMUNIZATIONS No Known Immunizations SOCIAL HISTORY Never Assessed REASON FOR VISIT PLAN OF CARE VITAL SIGNS Height 67 in 2014-07-17 Weight 237 lbs 2014-07-17 Temperature 96.9 degrees Fahrenheit 2014-07-17 Heart Rate 88 bpm 2014-07-17 Respiratory Rate 16 2014-07-17 Blood pressure systolic 130 mmHg 2014-07-17 Blood pressure diastolic 82 mmHg 2014-07-17 MEDICATIONS Unknown Medications RESULTS No Results PROCEDURES [...]
--- OUTSIDE RECORDS SUMMARY | 2020-05-03 14:31 | XMS REPORT ---
Author Author Tracee PINEDO [facility] Address [address] [place] [address] Care Team Providers Care Contract Coordinator Name Role Phone RAMON PINEDO Unavailable PROBLEMS Type Condition ICD9-CM Code HTG03-SQ Code Onset Dates Condition S tatus SNOMED Code Problem Primary insomnia F51.01 Active 397 2004 Problem Breast pain N64.4 Active 23408946 Problem History of renal transplant Z94.0 Ac tive 881302732 Problem Violation of controlled substance agreement Z91.14 Active 354375319 Problem Mild intermittent asthma without complication J45. 20 Active 996652018 Problem Screening breast examination Z12.39 A ctive 890295303 Problem Irritable bowel syndrome without diarrhea K58.9 Active 24038788 Problem Irritable bowel syndrome with diarrhea K58.0 Active 594502412 ALLERGIES No Information ENCOUNTERS Encounter Location Date Diagnosis [facility] [address] [id number] March, Dental examination Z01.20 [facility] [address] [id number] Feb, Caries K02.9 [facility] [address] [id number] Feb, Caries K02.9 [facility] [address] [id number] Jan, [facility] [address] [id number] Jan, Caries K02.9 [facility] [address] [id number] Dec, [facility] [address] [id number] Dec, Dental examination Z01.20 and Caries K02 .9 [place] [address] [address] 14 Sep, 2016 Dental examination Z01.20 [place] [address] [address] 08 Jan, 2016 Nausea R11.0 ; Irritable bowel syndrome without diarrhea K58.9 and History of renal transplant Z94.[address] [address] 2015 [place] [address] [address] 11 Dec, 2015 Breast pain N64.4 ; Screening breast exa mination Z12.39 and Mild intermittent asthma without complication J45.20 [place] [address] [address] 10 Dec, [address] [address] 09 Dec, 2015 Kidney transplant status Z94.0 ; Persona l history of immunosupression therapy Z92.25 ; Recurrent UTI N39.0 and Encounter for screening, unspecified Z13.[address] [address] Oct, [address] [address] Oct, [address] [address] Oct, [address] [address] Oct, Hiatal hernia K44.9 and Atypical chest p ain R07.[address] [address] Oct, [address] [address] Sep, 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 and Bilateral low back pain with sciatica, sciatica laterality unspecified M54.40 [place] [address] [address] Sep, [place] [address] [address] Sep, 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 ; Bi lateral low back pain with sciatica, sciatica laterality unspecified M54.40 ; Anxiety F41.9 and Primary insomnia F51.01 [place] [address] [address] Aug, [place] [address] [address] Aug, [place] [address] [address] Aug, Kidney transplant status Z94.0 ; Persona l history of immunosupression therapy Z92.25 ; Recurrent urinary tract infection N39.0 and Screening Z13.9 [place] [address] [address] Aug, [place] [address] [address] Aug, Encounter for aftercare following kidney transplant Z48.22 ; Chronic radicular pain of lower back M54.16 and PND (post-nasal drip) R09.82 [place] [address] [address] Jul, [place] [address] [address] Jul, [place] [address] [address] Jul, [address] [address] Jul, 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 ; De pressive disorder, not elsewhere classified 311 ; Anxiety state, unspecified 300.00 ; Insomnia, unspecified 780.52 ; Irritable bowel syndrome 564.1 ; Chronic lumbar pain 724.2 and GERD (gastroesophageal reflux disease) 530.81 [facility] [id number] [place] [address] Jul, [facility] [address] [address] Jun, [facility] [address] [address] Jun, [facility] [address] [address] Jun, [facility] [address] [address] Jun, 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 [facility] [address] [address] May, [facility] [address] [address] May, Depression with anxiety 300.4 and Skin i nfection 686.9 [facility] [address] [address] May, [facility] [address] [address] May, 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 ; Re current UTI (urinary tract infection) 599.0 and Absence of menstruation 626.0 [facility] [address] [address] May, [facility] [address] [address] May, Depression with anxiety 300.4 [facility] [address] [address] May, [facility] [address] [address] Apr, [facility] [address] [address] Apr, [facility] [address] [address] 16 Apr, 2015 Depression, major, recurrent, mild 296.3 1 [facility] [address] [address] Apr, Depression, major, recurrent, mild 296.3 1 [facility] [address] [address] Apr, Cervicalgia 723.1 ; Lumbago 724.2 ; Anxi ety state, unspecified 300.00 ; Nausea 787.02 ; 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 ; Recurrent UTI (urinary tract infection) 599.0 and Knee pain, bilateral 719.46 [place] [address] [address] March, Depression, major, recurrent, mild 296.3 1 [place] [address] [address] March, [facility] [address] [address] March, [facility] [address] [address] March, Lumbago 724.2 ; Insomnia, unspecified 78 0.52 ; Depressive disorder, not elsewhere classified 311 ; 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 ; Anxiety 300.00 ; Allergic rhinitis 477.9 and GERD (gastroesophageal reflux disease) 530.81 [place] [address] [address] Feb, [facility] [address] [address] Feb, [place] [address] [address] Jan, [facility] [address] [address] Jan, [place] [address] [address] Jan, [facility] [address] [id number] [place] [address] Jan, [facility] [address] [id number] [place] [address] Dec, [facility] [address] [id number] [place] [address] Dec, [facility] [address] [id number] [place] [address] Dec, [facility] [address] [id number] [place] [address] Dec, [facility] [address] [id number] [place] [address] Dec, [facility] [address] [id number] [place] [address] Dec, [facility] [address] [id number] [place] [address] Dec, [facility] [address] [id number] [place] [address] Nov, [facility] [address] [id number] [place] [address] Nov, [facility] [address] [id number] [place] [address] Nov, [facility] [address] [id number] [place] [address] Nov, [facility] [address] [id number] [place] [address] Nov, [facility] [address] [id number] [place] [address] Nov, [facility] [address] [id number] [place] [address] Nov, [facility] [address] [id number] [place] [address] Nov, [facility] [address] [id number] [place] [address] Nov, [facility] [address] [facility] [id number] [place] [address] Nov, [facility] [address] [facility] [address] [id number] [place] [address] Nov, [facility] [address] [id number] [place] [address] Nov, [facility] [address] [id number] [place] [address] Nov, [facility] [address] [facility] [address] [id number] [place] [address] Nov, [facility] [address] [id number] [place] [address] Nov, [facility] [address] [id number] [place] [address] Nov, [facility] [address] [id number] [place] [address] Nov, [facility] [address] [id number] [place] [address] Nov, [facility] [address] [id number] [place] [address] Nov, [facility] [address] [id number] [place] [address] Nov, [facility] [address] [id number] [place] [address] Nov, [facility] [address] [id number] [place] [address] Nov, [facility] [address] [id number] [place] [address] Nov, [facility] [address] [id number] [place] [address] Nov, [facility] [address] [id number] [place] [address] Nov, [facility] [address] [id number] [place] [address] Nov, [facility] [address] [id number] [place] [address] Nov, [facility] [address] [id number] [place] [address] Nov, [facility] [address] [id number] [place] [address] Nov, [facility] [address] [id number] [place] [address] Oct, [facility] [address] [id number] [place] [address] Oct, [facility] [address] [id number] [place] [address] Oct, [facility] [address] [id number] [place] [address] Oct, [facility] [address] [id number] [place] [address] Oct, [facility] [address] [id number] [place] [address] Oct, [facility] [address] [id number] [place] [address] Oct, [facility] [address] [id number] [place] [address] Oct, [facility] [address] [id number] [place] [address] Oct, [facility] [address] [id number] [place] [address] Oct, [facility] [address] [id number] [place] [address] Oct, [facility] [address] [id number] [place] [address] Oct, [facility] [address] [id number] [place] [address] Oct, [facility] [address] [id number] [place] [address] 17 Oct, 2014 [facility] [address] [id number] [place] [address] Oct, [facility] [address] [id number] [place] [address] 16 Oct, 2014 [facility] [address] [id number] [place] [address] Oct, [facility] [address] [id number] [place] [address] Oct, [facility] [address] [id number] [place] [address] Oct, [facility] [address] [id number] [place] [address] Oct, [facility] [address] [id number] [place] [address] Oct, [facility] [address] [id number] [place] [address] Oct, [facility] [address] [id number] [place] [address] Oct, [facility] [address] [id number] [place] [address] Sep, [facility] [address] [id number] [place] [address] Sep, [facility] [address] [id number] [place] [address] Sep, [facility] [address] [id number] [place] [address] Sep, [facility] [address] [id number] [place] [address] Sep, [facility] [address] [id number] [place] [address] Sep, [facility] [address] [id number] [place] [address] Sep, [facility] [address] [id number] [place] [address] Sep, [facility] [address] [id number] [place] [address] Sep, [facility] [address] [id number] [place] [address] Sep, [facility] [address] [id number] [place] [address] Sep, [facility] [address] [id number] [place] [address] Sep, [facility] [address] [id number] [place] [address] Sep, [facility] [address] [id number] [place] [address] Sep, [facility] [address] [id number] [place] [address] Sep, [facility] [address] [id number] [place] [address] Sep, [facility] [address] [id number] [place] [address] Sep, [facility] [address] [id number] [place] [address] Sep, [facility] [address] [id number] [place] [address] Sep, [facility] [address] [id number] [place] [address] Sep, [facility] [address] [id number] [place] [address] Sep, [facility] [address] [id number] [place] [address] Sep, [facility] [address] [id number] [place] [address] Sep, [facility] [address] [id number] [place] [address] Sep, [facility] [address] [facility] [address] [id number] [place] [address] Sep, [facility] [address] [id number] [place] [address] Sep, [facility] [address] [id number] [place] [address] Sep, [facility] [address] [id number] [place] [address] Sep, [facility] [address] [id number] [place] [address] Aug, [facility] [address] [id number] [place] [address] Aug, [facility] [address] [id number] [place] [address] Aug, [facility] [address] [id number] [place] [address] Aug, [facility] [address] [id number] [place] [address] Aug, [facility] [address] [id number] [place] [address] Aug, [facility] [address] [id number] [place] [address] Aug, [facility] [address] [id number] [place] [address] Aug, [facility] [address] [id number] [place] [address] Aug, [facility] [address] [id number] [place] [address] Aug, [facility] [address] [id number] [place] [address] Aug, [facility] [address] [id number] [place] [address] Aug, [facility] [address] [id number] [place] [address] Aug, 2013 [facility] [address] [id number] [place] [address] Aug, 2013 [facility] [address] [id number] [place] [address] Aug, 2013 [facility] [address] [id number] [place] [address] Aug, 2013 [facility] [address] [facility] 2001 [id number] [place] [address] Aug, 2013 [facility] [address] [id number] [place] [address] Aug, 2013 [facility] [address] [id number] [place] [address] 14 Aug, 2013 [facility] [address] [id number] [place] [address] 14 Aug, 2013 [facility] [address] [id number] [place] [address] Aug, 2013 [facility] [address] [id number] [place] [address] Aug, 2013 [facility] [address] [id number] [place] [address] Aug, 2013 [facility] [address] [id number] [place] [address] Aug, 2013 [facility] [address] [id number] [place] [address] 08 Aug, 2013 [facility] [address] [id number] [place] [address] Aug, 2013 [facility] [address] [id number] [place] [address] Aug, 2013 [facility] [address] [id number] [place] [address] Aug, 2013 [facility] [address] [id number] [place] [address] 07 Aug, 2013 [facility] [address] [facility] [address] [id number] [place] [address] 30 Jul, 2013 [facility] [address] [id number] [place] [address] 30 Jul, 2013 [facility] [address] [id number] [place] [address] 29 Jul, 2013 [facility] [address] [id number] [place] [address] 29 Jul, 2013 [facility] [address] [facility] [address] [id number] [place] [address] 19 Jul, 2013 [facility] [address] [id number] [place] [address] 19 Jul, 2013 [facility] [address] [id number] [place] [address] 18 Jul, 2013 [facility] [address] [id number] [place] [address] 18 Jul, 2013 [facility] [place] [address] [id number] [place] [address] 17 Jul, 2013 [facility] [place] [address] [id number] [place] [address] 17 Jul, 2013 [facility] [place] [address] [id number] [place] [address] 10 Jul, 2013 [facility] [place] [address] [id number] [place] [address] 10 Jul, 2013 [facility] [place] [address] [id number] [place] [address] 27 Jun, 2013 [facility] [address] [id number] [place] [address] Jun, [facility] [place] [address] [id number] [place] [address] Jun, 2013 [facility] [place] [address] [id number] [place] [address] Jun, 2013 [facility] [place] [address] [id number] [place] [address] Jun, [facility] [address] [id number] [place] [address] Jun, [facility] [id number] [place] [address] Jun, [facility] [id number] [place] [address] Jun, [facility] [id number] [place] [address] Jun, [facility] [id number] [place] [address] Jun, [facility] [id number] [place] [address] Jun, [facility] [id number] [place] [address] Jun, [facility] [id number] [place] [address] May, [facility] [id number] [place] [address] May, [facility] [id number] [place] [address] May, IMMUNIZATIONS No Known Immunizations SOCIAL HISTORY [...]
--- OUTSIDE RECORDS SUMMARY | 2020-05-03 14:32 | XMS REPORT ---
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 20 Active 119357809 Problem Breast pain N64.4 Active 96598227 Problem History of renal transplant Z94.0 Ac tive 918627865 Problem Irritable bowel syndrome without diarrhea K58.9 Active [id number] ALLERGIES No Information ENCOUNTERS Encounter Location Date Diagnosis [facility] [id number] [place] [address] [id number] March, Dental examination Z01.20 [facility] [address] [id number] [address] [place] [address] [id number] Feb, Caries K02.9 [facility] [address] [id number] [address] [place] [address] [id number] Feb, Caries K02.9 [facility] [address] [id number] [address] [place] [address] [id number] Jan, [facility] [address] [id number] [address] [place] [address] [id number] Jan, Caries K02.9 [facility] [address] [id number] [address] [place] [address] [id number] Dec, [facility] [address] [id number] [address] [place] [address] [id number] 18 Dec, 2018 Dental examination Z01.20 an d Caries K02.9 [place] [address] [address] 14 Sep, 2016 Dental examination Z01.20 [place] [address] [place] [id number] [address] [place] [id number] 08 Jan, 2016 Nausea R11.0 ; Irritable bow el syndrome without diarrhea K58.9 and History of renal transplant Z94.0 [place] [address] [id number] 2015 [place] [address] [id number] 11 Dec, 2015 Breast pain N64.4 ; Screenin g breast examination Z12.39 and Mild intermittent asthma without complication J45.20 [place] [address] [id number] 10 Dec, 2015 [place] [address] [id number] 09 Dec, 2015 Kidney transplant status Z94 .0 ; Personal history of immunosupression therapy Z92.25 ; Recurrent UTI N39.0 and Encounter for screening, unspecified Z13.9 [place] [address] [place] [id number] [address] [place] [phone] Oct, [place] [address] [place] [id number] [address] [place] [address] Oct, [place] [address] [place] [id number] [address] [place] [address] Oct, [place] [address] [address] Oct, Hiatal hernia K44.9 and Atyp ical chest pain R07.89 [place] [address] [place] [id number] [address] [place] [address] Oct, [place] [address] [id number] [address] [place] [phone] Sep, Kidney replaced by transplan t V42.0 and Bilateral low back pain with sciatica, sciatica laterality unspecified M54.40 [facility] [address] [id number] [address] [place] [address] Sep, [facility] [address] [id number] [address] [place] [address] Sep, Kidney replaced by transplan t V42.0 ; Bilateral low back pain with sciatica, sciatica laterality unspecified M54.40 ; Anxiety F41.9 and Primary insomnia F51.01 [facility] [address] [id number] [address] [place] [address] Aug, [facility] [address] [id number] [address] [place] [address] Aug, [facility] [address] [id number] [address] [place] [address] Aug, Kidney transplant status Z94 .0 ; Personal history of immunosupression therapy Z92.25 ; Recurrent urinary tract infection N39.0 and Screening Z13.9 [facility] [address] [id number] [address] [place] [address] Aug, [facility] [address] [id number] [address] [place] [phone] Aug, Encounter for aftercare foll owing kidney transplant Z48.22 ; Chronic radicular pain of lower back M54.16 and PND (post-nasal drip) R09.82 [facility] [address] [id number] [address] [place] [address] Jul, [facility] [address] [id number] [address] [place] [phone] Jul, [facility] [address] [id number] [address] [place] [address] Jul, [facility] [address] [id number] [address] [place] [address] Jul, Kidney replaced by transplan t V42.0 ; Depressive disorder, not elsewhere classified 311 ; Anxiety state, unspecified 300.00 ; Insomnia, unspecified 780.52 ; Irritable bowel syndrome 564.1 ; Chronic lumbar pain 724.2 and GERD (gastroesophageal reflux disease) 530.81 [facility] [address] [id number] [address] [place] [address] Jul, [facility] [address] [id number] [address] [place] [address] Jun, [facility] [address] [id number] [address] [place] [phone] Jun, [facility] [address] [facility] [id number] [address] [place] [address] Jun, [facility] [address] [facility] [id number] [address] [place] [address] Jun, Kidney replaced by transplan t V42.0 [facility] [address] [facility] [id number] [address] [place] [address] May, [facility] [address] [facility] [id number] [address] [place] [address] May, Depression with anxiety 300. 4 and Skin infection 686.9 [facility] [address] [facility] [id number] [address] [place] [address] May, [facility] [address] [id number] [address] [place] [address] May, Kidney replaced by transplan t V42.0 ; Recurrent UTI (urinary tract infection) 599.0 and Absence of menstruation 626.0 [facility] [address] [facility] [id number] [address] [place] [address] May, [facility] [address] [facility] [id number] [address] [place] [address] May, Depression with anxiety 300. 4 [place] [address] [place] [id number] [address] [place] [phone] May, [facility] [address] [place] [id number] [address] [place] [address] Apr, [facility] [address] [place] [id number] [address] [place] [address] Apr, [facility] [address] [place] [id number] [address] [place] [address] Apr, Depression, major, recurrent , mild 296.31 [facility] [address] [place] [id number] [address] [place] [address] Apr, Depression, major, recurrent , mild 296.31 [place] [address] [place] [id number] [address] [place] [address] Apr, Cervicalgia 723.1 ; Lumbago 724.2 ; Anxiety state, unspecified 300.00 ; Nausea 787.02 ; 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 ; Recurrent UTI (urinary tract infection) 599.0 and Knee pain, bilateral 719.46 [place] [address] [place] [id number] [address] [place] [address] March, Depression, major, recurrent , mild 296.31 [facility] [address] [place] [id number] [address] [place] [address] March, [facility] [address] [place] [id number] [address] [place] [phone] March, [facility] [address] [place] [id number] [address] [place] [address] March, Lumbago 724.2 ; Insomnia, un specified 780.52 ; Depressive disorder, not elsewhere classified 311 ; 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 ; Anxiety 300.00 ; Allergic rhinitis 477.9 and GERD (gastroesophageal reflux disease) 530.81 [facility] [address] [place] [id number] [address] [place] [phone] Feb, [facility] [address] [id number] [address] [place] [address], [place] [address] Feb, [facility] [address] [id number] [address] [place] [address], [place] [address] Jan, [facility] [address] [id number] [address] [place] [address], [place] [address] Jan, [facility] [address] [id number] [address] [place] [address], [place] [address] Jan, [facility] [address] [id number] [address] [place] [address], [place] [address] Jan, [facility] [address] [id number] [address] [place] [address], [place] [address] Dec, [facility] [address] [id number] [address] [place] [address], [place] [address] Dec, [facility] [address] [id number] [address] [place] [address], [place] [address] Dec, [facility] [address] [id number] [address] [place] [address], [place] [address] Dec, [facility] [address] [id number] [address] [place] [address], [place] [address] Dec, [facility] [address] [id number] [address] [place] [address], [place] [address] Dec, [facility] [address] [id number] [address] [place] [address], [place] [address] Dec, [facility] [address] [id number] [address] [place] [address], [place] [address] Nov, [facility] [address] [id number] [address] [place] [address], [place] [address] Nov, [facility] [address] [id number] [address] [place] [address], [place] [address] Nov, [facility] [address] [id number] [address] [place] [address] [address] Nov, [facility] [address] [id number] [address] [place] [address], [place] [address] Nov, [facility] [address] [id number] [address] [place] [address], [place] [address] Nov, [facility] [address] [id number] [address] [place] [address], [place] [address] Nov, [facility] [address] [id number] [address] [place] [address], [place] [address] Nov, [facility] [address] [id number] [address] [place] [address], [place] [address] Nov, [facility] [address] [id number] [address] [place] [address], [place] [address] Nov, [facility] [address] [id number] [address] [place] [address], [place] [address] Nov, [facility] [address] [id number] [address] [place] [address], [place] [address] Nov, [facility] [address] [id number] [address] [place] [address], [place] [address] Nov, [facility] [address] [id number] [address] [place] [address], [place] [address] Nov, [facility] [address] [id number] [address] [place] [address], [place] [address] Nov, [facility] [address] [id number] [address] [place] [address], [place] [address] Nov, [facility] [address] [id number] [address] [place] [address], [place] [address] Nov, [facility] [address] [id number] [address] [place] [address], [place] [address] Nov, [facility] [address] [id number] [address] [place] [address], [place] [address] Nov, [facility] [address] [id number] [address] [place] [address], [place] [address] Nov, [facility] [address] [id number] [address] [place] [address], [place] [address] Nov, [facility] [address] [id number] [address] [place] [address], [place] [address] Nov, [facility] [address] [id number] [address] [place] [address], [place] [address] Nov, [facility] [address] [id number] [address] [place] [address], [place] [address] Nov, [facility] [address] [id number] [address] [place] [address], [place] [address] Nov, [facility] [address] [id number] [address] [place] [address], [place] [address] Nov, [facility] [address] [id number] [address] [place] [address], [place] [address] Nov, [facility] [address] [id number] [address] [place] [address], [place] [address] Nov, [facility] [address] [id number] [address] [place] [address], [place] [address] Nov, [facility] [address] [id number] [address] [place] [address], [place] [address] Oct, [facility] [address] [id number] [address] [place] [address], [place] [address] Oct, [facility] [address] [id number] [address] [place] [address], [place] [address] Oct, [facility] [address] [id number] [address] [place] [address], [place] [address] Oct, [facility] [address] [id number] [address] [place] [address], [place] [address] Oct, [facility] [address] [id number] [address] [place] [address], [place] [address] Oct, [facility] [address] [id number] [address] [place] [address], [place] [address] Oct, [facility] [address] [id number] [address] [place] [address], [place] [address] Oct, [facility] [address] [id number] [address] [place] [address], [place] [address] Oct, [facility] [address] [id number] [address] [place] [address], [place] [address] Oct, [facility] [address] [id number] [address] [place] [address], [place] [address] Oct, [facility] [address] [id number] [address] [place] [address], [place] [address] Oct, [facility] [address] [id number] [address] [place] [address], [place] [address] Oct, [facility] [address] [id number] [address] [place] [address], [place] [address] Oct, [facility] [address] [id number] [address] [place] [address], [place] [address] Oct, [facility] [address] [id number] [address] [place] [address], [place] [address] Oct, [facility] [address] [id number] [address] [place] [address], [place] [address] Oct, [facility] [address] [id number] [address] [place] [address], [place] [address] Oct, [facility] [address] [id number] [address] [place] [address], [place] [address] Oct, [facility] [address] [id number] [address] [place] [address], [place] [address] 05 Oct, 2014 [facility] [address] [id number] [address] [place] [address], [place] [address] 05 Oct, 2014 [facility] [address] [id number] [address] [place] [address], [place] [address] Oct, [facility] [address] [id number] [address] [place] [address], [place] [address] Oct, [facility] [address] [id number] [address] [place] [address], [place] [address] Sep, [facility] [address] [id number] [address] [place] [address], [place] [address] Sep, [facility] [address] [id number] [address] [place] [address], [place] [address] Sep, [facility] [address] [id number] [address] [place] [address], [place] [address] Sep, [facility] [address] [id number] [address] [place] [address], [place] [address] Sep, [facility] [address] [id number] [address] [place] [address], [place] [address] Sep, [facility] [address] [id number] [address] [place] [address], [place] [address] Sep, [facility] [address] [id number] [address] [place] [address], [place] [address] Sep, [facility] [address] [id number] [address] [place] [address], [place] [address] Sep, [facility] [address] [id number] [address] [place] [address], [place] [address] Sep, [facility] [address] [id number] [address] [place] [address], [place] [address] Sep, [facility] [address] [id number] [address] [place] [address], [place] [address] Sep, [facility] [address] [id number] [address] [place] [address], [place] [address] Sep, [facility] [address] [id number] [address] [place] [address], [place] [address] Sep, [facility] [address] [id number] [address] [place] [address], [place] [address] Sep, [facility] [address] [id number] [address] [place] [address], [place] [address] Sep, [facility] [address] [id number] [address] [place] [address], [place] [address] Sep, [facility] [address] [id number] [address] [place] [address], [place] [address] Sep, [facility] [address] [id number] [address] [place] [address], [place] [address] Sep, [facility] [address] [id number] [address] [place] [address], [place] [address] Sep, [facility] [address] [id number] [address] [place] [address], [place] [address] Sep, [facility] [address] [id number] [address] [place] [address], [place] [address] Sep, [facility] [address] [id number] [address] [place] [address], [place] [address] Sep, [facility] [address] [id number] [address] [place] [address], [place] [address] Sep, [facility] [address] [id number] [address] [place] [address], [place] [address] Sep, [facility] [address] [id number] [address] [place] [address], [place] [address] Sep, [facility] [address] [id number] [address] [place] [address], [place] [address] Sep, [facility] [address] [id number] [address] [place] [address], [place] [address] Sep, [facility] [address] [id number] [address] [place] [address], [place] [address] Aug, [facility] [address] [id number] [address] [place] [address], [place] [address] Aug, [facility] [address] [id number] [address] [place] [address], [place] [address] Aug, [facility] [address] [id number] [address] [place] [address], [place] [address] Aug, [facility] [address] [id number] [address] [place] [address], [place] [address] Aug, [facility] [address] [id number] [address] [place] [address], [place] [address] Aug, [facility] [address] [id number] [address] [place] [address], [place] [address] Aug, [facility] [address] [id number] [address] [place] [address], [place] [address] Aug, [facility] [address] [id number] [address] [place] [address], [place] [address] Aug, [facility] [address] [id number] [address] [place] [address], [place] [address] Aug, [facility] [address] [id number] [address] [place] [address], [place] [address] Aug, [facility] [address] [id number] [address] [place] [id number] Aug, [facility] [address] [id number] [address] [place] [id number] Aug, [facility] [address] [id number] [address] [place] [id number] Aug, [facility] [address] [id number] [address] [place] [address], [place] [address] Aug, [facility] [address] [id number] [address] [place] [address], [place] [address] Aug, [facility] [address] [id number] [address] [place] [id number] Aug, [facility] [address] [id number] [address] [place] [id number] 17 Aug, 2013 [facility] [address] [id number] [address] [place] [address], [place] [address] 14 Aug, 2013 [facility] [address] [id number] [address] [place] [id number] 14 Aug, 2013 [facility] [address] [id number] [address] [place] [address], [place] [address] 09 Aug, 2013 [facility] [address] [id number] [address] [place] [id number] 09 Aug, 2013 [facility] [address] [id number] [address] [place] [address], [place] [address] Aug, 2013 [facility] [address] [id number] [address] [place] [address], [place] [address] Aug, 2013 [facility] [address] [id number] [address] [place] [id number] 08 Aug, 2013 [facility] [address] [id number] [address] [place] [id number] 07 Aug, 2013 [facility] [address] [id number] [address] [place] [id number] Aug, 2013 [facility] [address] [id number] [address] [place] [id number] Aug, 2013 [facility] [address] [id number] [address] [place] [id number] 07 Aug, 2013 [facility] [address] [id number] [address] [place] [id number] 30 Jul, 2013 [facility] [address] [id number] [address] [place] [id number] 30 Jul, 2013 [facility] [address] [id number] [address] [place] [id number] 29 Jul, 2013 [facility] [address] [id number] [address] [place] [id number] 29 Jul, 2013 [facility] [address] [id number] [facility] [place] [address] 19 Jul, 2013 [facility] [address] [id number] [address] [place] [address] 19 Jul, 2013 [facility] [address] [id number] [facility] [place] [address] 18 Jul, 2013 [facility] [address] [id number] [facility] [place] [address] 18 Jul, 2013 [facility] [address] [id number] [address] [place] [address] 17 Jul, 2013 [facility] [address] [id number] [address] [place] [address], [place] [address] 17 Jul, 2013 [facility] [address] [id number] [address] [place] [address], [place] [address] 10 Jul, 2013 [facility] [address] [id number] [address] [place] [address], [place] [id number] 10 Jul, 2013 [facility] [address] [id number] [address] [place] [address], [place] [address] Jun, [facility] [address] [id number] [address] [place] [address], [place] [address] Jun, [facility] [address] [id number] [address] [place] [address], [place] [address] Jun, [facility] [address] [id number] [address] [place] [address], [place] [address] Jun, [facility] [address] [id number] [address] [place] [address], [place] [address] Jun, [facility] [address] [id number] [address] [place] [address], [place] [address] Jun, [facility] [address] [id number] [address] [place] [address], [place] [address] Jun, [facility] [address] [id number] [address] [place], [place] [address] [address] Jun, [facility] [address] [id number] [address] [place] [phone] Jun, [facility] [address] [id number] [address] [place] [id number] Jun, [facility] [address] [id number] [address] [place] [id number] Jun, [facility] [address] [id number] [address] [place] [id number] Jun, [facility] [address] [id number] [address] [place] [id number] May, [facility] [address] [id number] [address] [place] [id number] May, [facility] [address] [facility] [id number] [address] [place] [id number] May, IMMUNIZATIONS No Known Immunizations SOCIAL HISTORY [...]
--- OUTSIDE RECORDS SUMMARY | 2020-05-03 14:32 | XMS REPORT ---
Author Author Tracee AVILA Organization [facility] Address [address] [place] [address] Care Team Providers Care Fundraising Manager Name Role Phone SARAI AVILA Unavailable PROBLEMS Type Condition ICD9-CM Code NWI50-ZA Code Onset Dates Condition S tatus SNOMED Code Problem Primary insomnia F51.01 Active 397 2004 Problem Breast pain N64.4 Active 44714980 Problem History of renal transplant Z94.0 Ac tive 750896690 Problem Violation of controlled substance agreement Z91.14 Active 920897693 Problem Mild intermittent asthma without complication J45. 20 Active 505698696 Problem Screening breast examination Z12.39 A ctive 481680380 Problem Irritable bowel syndrome without diarrhea K58.9 Active 03333727 Problem Irritable bowel syndrome with diarrhea K58.0 Active [id number] ALLERGIES No Information ENCOUNTERS Encounter Location Date Diagnosis [facility] [id number] [place] [address] [id number] March, Dental examination Z01.20 [facility] [address] [id number] [address] [place] [address] [id number] Feb, Caries K02.9 [facility] [address] [id number] [address] [place] [address] [id number] Feb, Caries K02.9 [facility] [address] [id number] [address] [place] [address] [id number] Jan, [facility] [address] [id number] [address] [place] [address] [id number] Jan, Caries K02.9 [facility] [address] [id number] [address] [place] [address] [id number] Dec, [facility] [address] [id number] [address] [place] [address] [id number] 18 Dec, 2018 Dental examination Z01.20 an d Caries K02.9 [place] [address] [address] 14 Sep, 2016 Dental examination Z01.20 [place] [address] [place] [id number] [address] [place] [address] 08 Jan, 2016 Nausea R11.0 ; Irritable bow el syndrome without diarrhea K58.9 and History of renal transplant Z94.0 [place] [address] [address] 2015 [place] [address] [address] 11 Dec, 2015 Breast pain N64.4 ; Screenin g breast examination Z12.39 and Mild intermittent asthma without complication J45.20 [place] [address] [address] 10 Dec, 2015 [place] [address] [address] 09 Dec, 2015 Kidney transplant status Z94 .0 ; Personal history of immunosupression therapy Z92.25 ; Recurrent UTI N39.0 and Encounter for screening, unspecified Z13.9 [place] [address] [place] [id number] [address] [place] [address] Oct, [place] [address] [place] [id number] [address] [place] [address] Oct, [place] [address] [place] [id number] [address] [place] [address] Oct, [place] [address] [address] Oct, Hiatal hernia K44.9 and Atyp ical chest pain R07.89 [place] [address] [place] [id number] [address] [place] [address] Oct, [place] [address] [id number] [address] [place] [address] Sep, Kidney replaced by transplan t V42.0 and Bilateral low back pain with sciatica, sciatica laterality unspecified M54.40 [facility] [address] [id number] [address] [place] [address] Sep, [facility] [address] [id number] [address] [place] [address] Sep, Kidney replaced by transplan t V42.0 ; Bilateral low back pain with sciatica, sciatica laterality unspecified M54.40 ; Anxiety F41.9 and Primary insomnia F51.01 [facility] [address] [id number] [address] [place] [address] Aug, [facility] [address] [id number] [address] [place] [address] Aug, [facility] [address] [id number] [address] [place] [address] Aug, Kidney transplant status Z94 .0 ; Personal history of immunosupression therapy Z92.25 ; Recurrent urinary tract infection N39.0 and Screening Z13.9 [facility] [address] [id number] [address] [place] [address] Aug, [facility] [address] [id number] [address] [place] [address] Aug, Encounter for aftercare foll owing kidney transplant Z48.22 ; Chronic radicular pain of lower back M54.16 and PND (post-nasal drip) R09.82 [facility] [address] [id number] [address] [place] [address] Jul, [facility] [address] [id number] [address] [place] [address] Jul, [facility] [address] [id number] [address] [place] [address] Jul, [facility] [address] [id number] [address] [place] [address] Jul, Kidney replaced by transplan t V42.0 ; Depressive disorder, not elsewhere classified 311 ; Anxiety state, unspecified 300.00 ; Insomnia, unspecified 780.52 ; Irritable bowel syndrome 564.1 ; Chronic lumbar pain 724.2 and GERD (gastroesophageal reflux disease) 530.81 [facility] [address] [id number] [address] [place] [address] Jul, [facility] [address] [id number] [address] [place] [address] Jun, [facility] [address] [id number] [address] [place] [address] Jun, [facility] [address] [facility] [id number] [address] [place] [address] Jun, [facility] [address] [facility] [id number] [address] [place] [address] Jun, Kidney replaced by transplan t V42.0 [facility] [address] [facility] [id number] [address] [place] [address] May, [facility] [address] [facility] [id number] [address] [place] [address] May, Depression with anxiety 300. 4 and Skin infection 686.9 [facility] [address] [facility] [id number] [address] [place] [address] May, [facility] [address] [id number] [address] [place] [address] May, Kidney replaced by transplan t V42.0 ; Recurrent UTI (urinary tract infection) 599.0 and Absence of menstruation 626.0 [facility] [address] [facility] [id number] [address] [place] [address] May, [facility] [address] [facility] [id number] [address] [place] [address] May, Depression with anxiety 300. 4 [place] [address] [place] [id number] [address] [place] [address] May, [facility] [address] [place] [id number] [address] [place] [address] Apr, [facility] [address] [place] [id number] [address] [place] [address] Apr, [facility] [address] [place] [id number] [address] [place] [address] Apr, Depression, major, recurrent , mild 296.31 [facility] [address] [place] [id number] [address] [place] [address] Apr, Depression, major, recurrent , mild 296.31 [place] [address] [place] [id number] [address] [place] [address] Apr, Cervicalgia 723.1 ; Lumbago 724.2 ; Anxiety state, unspecified 300.00 ; Nausea 787.02 ; 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 ; Recurrent UTI (urinary tract infection) 599.0 and Knee pain, bilateral 719.46 [place] [address] [place] [id number] [address] [place] [address] March, Depression, major, recurrent , mild 296.31 [facility] [address] [place] [id number] [address] [place] [address] March, [facility] [address] [place] [id number] [address] [place] [address] March, [facility] [address] [place] [id number] [address] [place] [address] March, Lumbago 724.2 ; Insomnia, un specified 780.52 ; Depressive disorder, not elsewhere classified 311 ; 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 ; Anxiety 300.00 ; Allergic rhinitis 477.9 and GERD (gastroesophageal reflux disease) 530.81 [facility] [address] [place] [id number] [address] [place] [address] Feb, [facility] [address] [id number] [address] [place] [address], [place] [address] Feb, [facility] [address] [id number] [address] [place] [address], [place] [address] Jan, [facility] [address] [id number] [address] [place] [address], [place] [address] Jan, [facility] [address] [id number] [address] [place] [address], [place] [address] Jan, [facility] [address] [id number] [address] [place] [address], [place] [address] Jan, [facility] [address] [id number] [address] [place] [address], [place] [address] Dec, [facility] [address] [id number] [address] [place] [address], [place] [address] Dec, [facility] [address] [id number] [address] [place] [address], [place] [address] Dec, [facility] [address] [id number] [address] [place] [address], [place] [address] Dec, [facility] [address] [id number] [address] [place] [address], [place] [address] Dec, [facility] [address] [id number] [address] [place] [address], [place] [address] Dec, [facility] [address] [id number] [address] [place] [address], [place] [address] Dec, [facility] [address] [id number] [address] [place] [address], [place] [address] Nov, [facility] [address] [id number] [address] [place] [address], [place] [address] Nov, [facility] [address] [id number] [address] [place] [address], [place] [address] Nov, [facility] [address] [id number] [address] [place] [address] [address] Nov, [facility] [address] [id number] [address] [place] [address], [place] [address] Nov, [facility] [address] [id number] [address] [place] [address], [place] [address] Nov, [facility] [address] [id number] [address] [place] [address], [place] [address] Nov, [facility] [address] [id number] [address] [place] [address], [place] [address] Nov, [facility] [address] [id number] [address] [place] [address], [place] [address] Nov, [facility] [address] [id number] [address] [place] [address], [place] [address] Nov, [facility] [address] [id number] [address] [place] [address], [place] [address] Nov, [facility] [address] [id number] [address] [place] [address], [place] [address] Nov, [facility] [address] [id number] [address] [place] [address], [place] [address] Nov, [facility] [address] [id number] [address] [place] [address], [place] [address] Nov, [facility] [address] [id number] [address] [place] [address], [place] [address] Nov, [facility] [address] [id number] [address] [place] [address], [place] [address] Nov, [facility] [address] [id number] [address] [place] [address], [place] [address] Nov, [facility] [address] [id number] [address] [place] [address], [place] [address] Nov, [facility] [address] [id number] [address] [place] [address], [place] [address] Nov, [facility] [address] [id number] [address] [place] [address], [place] [address] Nov, [facility] [address] [id number] [address] [place] [address], [place] [address] Nov, [facility] [address] [id number] [address] [place] [address], [place] [address] Nov, [facility] [address] [id number] [address] [place] [address], [place] [address] Nov, [facility] [address] [id number] [address] [place] [address], [place] [address] Nov, [facility] [address] [id number] [address] [place] [address], [place] [address] Nov, [facility] [address] [id number] [address] [place] [address], [place] [address] Nov, [facility] [address] [id number] [address] [place] [address], [place] [address] Nov, [facility] [address] [id number] [address] [place] [address], [place] [address] Nov, [facility] [address] [id number] [address] [place] [address], [place] [address] Nov, [facility] [address] [id number] [address] [place] [address], [place] [address] Oct, [facility] [address] [id number] [address] [place] [address], [place] [address] Oct, [facility] [address] [id number] [address] [place] [address], [place] [address] Oct, [facility] [address] [id number] [address] [place] [address], [place] [address] Oct, [facility] [address] [id number] [address] [place] [address], [place] [address] Oct, [facility] [address] [id number] [address] [place] [address], [place] [address] Oct, [facility] [address] [id number] [address] [place] [address], [place] [address] Oct, [facility] [address] [id number] [address] [place] [address], [place] [address] Oct, [facility] [address] [id number] [address] [place] [address], [place] [address] Oct, [facility] [address] [id number] [address] [place] [address], [place] [address] Oct, [facility] [address] [id number] [address] [place] [address], [place] [address] Oct, [facility] [address] [id number] [address] [place] [address], [place] [address] Oct, [facility] [address] [id number] [address] [place] [address], [place] [address] Oct, [facility] [address] [id number] [address] [place] [address], [place] [address] Oct, [facility] [address] [id number] [address] [place] [address], [place] [address] Oct, [facility] [address] [id number] [address] [place] [address], [place] [address] Oct, [facility] [address] [id number] [address] [place] [address], [place] [address] Oct, [facility] [address] [id number] [address] [place] [address], [place] [address] Oct, [facility] [address] [id number] [address] [place] [address], [place] [address] Oct, [facility] [address] [id number] [address] [place] [address], [place] [address] 05 Oct, 2014 [facility] [address] [id number] [address] [place] [address], [place] [address] 05 Oct, 2014 [facility] [address] [id number] [address] [place] [address], [place] [address] Oct, [facility] [address] [id number] [address] [place] [address], [place] [address] Oct, [facility] [address] [id number] [address] [place] [address], [place] [address] Sep, [facility] [address] [id number] [address] [place] [address], [place] [address] Sep, [facility] [address] [id number] [address] [place] [address], [place] [address] Sep, [facility] [address] [id number] [address] [place] [address], [place] [address] Sep, [facility] [address] [id number] [address] [place] [address], [place] [address] Sep, [facility] [address] [id number] [address] [place] [address], [place] [address] Sep, [facility] [address] [id number] [address] [place] [address], [place] [address] Sep, [facility] [address] [id number] [address] [place] [address], [place] [address] Sep, [facility] [address] [id number] [address] [place] [address], [place] [address] Sep, [facility] [address] [id number] [address] [place] [address], [place] [address] Sep, [facility] [address] [id number] [address] [place] [address], [place] [address] Sep, [facility] [address] [id number] [address] [place] [address], [place] [address] Sep, [facility] [address] [id number] [address] [place] [address], [place] [address] Sep, [facility] [address] [id number] [address] [place] [address], [place] [address] Sep, [facility] [address] [id number] [address] [place] [address], [place] [address] Sep, [facility] [address] [id number] [address] [place] [address], [place] [address] Sep, [facility] [address] [id number] [address] [place] [address], [place] [address] Sep, [facility] [address] [id number] [address] [place] [address], [place] [address] Sep, [facility] [address] [id number] [address] [place] [address], [place] [address] Sep, [facility] [address] [id number] [address] [place] [address], [place] [address] Sep, [facility] [address] [id number] [address] [place] [address], [place] [address] Sep, [facility] [address] [id number] [address] [place] [address], [place] [address] Sep, [facility] [address] [id number] [address] [place] [address], [place] [address] Sep, [facility] [address] [id number] [address] [place] [address], [place] [address] Sep, [facility] [address] [id number] [address] [place] [address], [place] [address] Sep, [facility] [address] [id number] [address] [place] [address], [place] [address] Sep, [facility] [address] [id number] [address] [place] [address], [place] [address] Sep, [facility] [address] [id number] [address] [place] [address], [place] [address] Sep, [facility] [address] [id number] [address] [place] [address], [place] [address] Aug, [facility] [address] [id number] [address] [place] [address], [place] [address] Aug, [facility] [address] [id number] [address] [place] [address], [place] [address] Aug, [facility] [address] [id number] [address] [place] [address], [place] [address] Aug, [facility] [address] [id number] [address] [place] [address], [place] [address] Aug, [facility] [address] [id number] [address] [place] [address], [place] [address] Aug, [facility] [address] [id number] [address] [place] [address], [place] [address] Aug, [facility] [address] [id number] [address] [place] [address], [place] [address] Aug, [facility] [address] [id number] [address] [place] [address], [place] [address] Aug, [facility] [address] [id number] [address] [place] [address], [place] [address] Aug, [facility] [address] [id number] [address] [place] [address], [place] [address] Aug, [facility] [address] [id number] [address] [place] [id number] Aug, [facility] [address] [id number] [address] [place] [id number] Aug, [facility] [address] [id number] [address] [place] [id number] Aug, [facility] [address] [id number] [address] [place] [address], [place] [address] Aug, [facility] [address] [id number] [address] [place] [address], [place] [address] Aug, [facility] [address] [id number] [address] [place] [id number] Aug, [facility] [address] [id number] [address] [place] [id number] 17 Aug, 2013 [facility] [address] [id number] [address] [place] [address], [place] [address] 14 Aug, 2013 [facility] [address] [id number] [address] [place] [id number] 14 Aug, 2013 [facility] [address] [id number] [address] [place] [address], [place] [address] 09 Aug, 2013 [facility] [address] [id number] [address] [place] [id number] 09 Aug, 2013 [facility] [address] [id number] [address] [place] [address], [place] [address] Aug, 2013 [facility] [address] [id number] [address] [place] [address], [place] [address] Aug, 2013 [facility] [address] [id number] [address] [place] [id number] 08 Aug, 2013 [facility] [address] [id number] [address] [place] [id number] 07 Aug, 2013 [facility] [address] [id number] [address] [place] [id number] Aug, 2013 [facility] [address] [id number] [address] [place] [phone] Aug, 2013 [facility] [address] [id number] [address] [place] [id number] 07 Aug, 2013 [facility] [address] [id number] [address] [place] [id number] 30 Jul, 2013 [facility] [address] [id number] [address] [place] [id number] 30 Jul, 2013 [facility] [address] [id number] [address] [place] [id number] 29 Jul, 2013 [facility] [address] [id number] [address] [place] [phone] 29 Jul, 2013 [facility] [address] [id number] [facility] [address] 19 Jul, 2013 [facility] [address] [id number] [facility] [place] [address] 19 Jul, 2013 [facility] [address] [id number] [facility] [place] [address] 18 Jul, 2013 [facility] [address] [id number] [facility] [place] [address] 18 Jul, 2013 [facility] [address] [id number] [facility] [place] [address] 17 Jul, 2013 [facility] [address] [id number] [address] [place] [address], [place] [address] 17 Jul, 2013 [facility] [address] [id number] [address] [place] [address], [place] [address] 10 Jul, 2013 [facility] [address] [id number] [address] [place] [address], [place] [address] 10 Jul, 2013 [facility] [address] [id number] [address] [place] [address], [place] [address] Jun, [facility] [address] [id number] [address] [place] [address], [place] [address] Jun, [facility] [address] [id number] [address] [place] [address], [place] [address] Jun, [facility] [address] [id number] [address] [place] [address], [place] [address] Jun, [facility] [address] [id number] [address] [place] [address], [place] [id number] Jun, [facility] [address] [id number] [address] [place] [address], [place] [address] Jun, [facility] [address] [id number] [address] [place] [address], [place] [address] Jun, [facility] [address] [id number] [address] [place] [address] [id number] Jun, [facility] [address] [id number] [address] [place] [id number] Jun, [facility] [address] [id number] [address] [place] [phone] Jun, [facility] [address] [id number] [address] [place] [phone] Jun, [facility] [address] [id number] [address] [place] [id number] Jun, [facility] [address] [id number] [address] [place] [id number] May, [facility] [address] [id number] [address] [place] [phone] May, [facility] [address] [facility] [id number] [address] [place] [id number] May, IMMUNIZATIONS No Known Immunizations SOCIAL HISTORY [...]
--- OUTSIDE RECORDS SUMMARY | 2020-05-03 14:32 | XMS REPORT ---
Author Author Tracee AVILA Organization [facility] Address [address] [place] [address] Care Team Providers Care Resident Services Supervisor Name Role Phone SARAI AVILA Unavailable PROBLEMS Type Condition ICD9-CM Code BEI30-WG Code Onset Dates Condition S tatus SNOMED Code Problem Primary insomnia F51.01 Active 397 2004 Problem Breast pain N64.4 Active 81022483 Problem History of renal transplant Z94.0 Ac tive 823451584 Problem Violation of controlled substance agreement Z91.14 Active 721805285 Problem Mild intermittent asthma without complication J45. 20 Active 982798909 Problem Screening breast examination Z12.39 A ctive 267600937 Problem Irritable bowel syndrome without diarrhea K58.9 Active 03149024 Problem Irritable bowel syndrome with diarrhea K58.0 Active 864397005 ALLERGIES No Information ENCOUNTERS Encounter Location Date Diagnosis [facility] [id number] [place] [address] [id number] March, Dental examination Z01.20 [facility] [address] [id number] [address] [place] [address] [id number] Feb, Caries K02.9 [facility] [address] [id number] [address] [place] [address] [id number] Feb, Caries K02.9 [facility] [address] [id number] [address] [place] [address] [id number] Jan, [facility] [address] [id number] [address] [place] [address] [id number] Jan, Caries K02.9 [facility] [address] [id number] [address] [place] [address] [id number] Dec, [facility] [address] [id number] [address] [place] [address] [id number] 18 Dec, 2018 Dental examination Z01.20 an d Caries K02.9 [place] [address] [id number] 14 Sep, 2016 Dental examination Z01.20 [place] [address] [place] [id number] [address] [place] [id number] 08 Jan, 2016 Nausea R11.0 ; Irritable bow el syndrome without diarrhea K58.9 and History of renal transplant Z94.0 [place] [address] [id number] 2015 [place] [address] [id number] 11 Dec, 2015 Breast pain N64.4 ; Screenin g breast examination Z12.39 and Mild intermittent asthma without complication J45.20 [place] [address] [id number] 10 Dec, 2015 [place] [address] [id number] 09 Dec, 2015 Kidney transplant status Z94 .0 ; Personal history of immunosupression therapy Z92.25 ; Recurrent UTI N39.0 and Encounter for screening, unspecified Z13.9 [place] [address] [place] [id number] [address] [place] [address] Oct, [place] [address] [place] [id number] [address] [place] [phone] Oct, [place] [address] [place] [id number] [address] [place] [phone] Oct, [place] [address] [address] Oct, Hiatal hernia K44.9 and Atyp ical chest pain R07.89 [place] [address] [place] [id number] [address] [place] [phone] Oct, [place] [address] [id number] [address] [place] [phone] Sep, Kidney replaced by transplan t V42.0 and Bilateral low back pain with sciatica, sciatica laterality unspecified M54.40 [facility] [address] [id number] [address] [place] [phone] Sep, [facility] [address] [id number] [address] [place] [address] Sep, Kidney replaced by transplan t V42.0 ; Bilateral low back pain with sciatica, sciatica laterality unspecified M54.40 ; Anxiety F41.9 and Primary insomnia F51.01 [facility] [address] [id number] [address] [place] [address] Aug, [facility] [address] [id number] [address] [place] [phone] Aug, [facility] [address] [id number] [address] [place] [phone] Aug, Kidney transplant status Z94 .0 ; Personal history of immunosupression therapy Z92.25 ; Recurrent urinary tract infection N39.0 and Screening Z13.9 [facility] [address] [id number] [address] [place] [phone] Aug, [facility] [address] [id number] [address] [place] [address] Aug, Encounter for aftercare foll owing kidney transplant Z48.22 ; Chronic radicular pain of lower back M54.16 and PND (post-nasal drip) R09.82 [facility] [address] [id number] [address] [place] [phone] Jul, [facility] [address] [id number] [address] [place] [phone] Jul, [facility] [address] [id number] [address] [place] [phone] Jul, [facility] [address] [id number] [address] [place] [phone] Jul, Kidney replaced by transplan t V42.0 ; Depressive disorder, not elsewhere classified 311 ; Anxiety state, unspecified 300.00 ; Insomnia, unspecified 780.52 ; Irritable bowel syndrome 564.1 ; Chronic lumbar pain 724.2 and GERD (gastroesophageal reflux disease) 530.81 [facility] [address] [id number] [address] [place] [phone] Jul, [facility] [address] [id number] [address] [place] [phone] Jun, [facility] [address] [id number] [address] [place] [phone] Jun, [facility] [address] [facility] [id number] [address] [place] [phone] Jun, [facility] [address] [facility] [id number] [address] [place] [phone] Jun, Kidney replaced by transplan t V42.0 [facility] [address] [facility] [id number] [address] [place] [phone] May, [facility] [address] [facility] [id number] [address] [place] [phone] May, Depression with anxiety 300. 4 and Skin infection 686.9 [facility] [address] [facility] [id number] [address] [place] [address] May, [facility] [address] [id number] [address] [place] [address] May, Kidney replaced by transplan t V42.0 ; Recurrent UTI (urinary tract infection) 599.0 and Absence of menstruation 626.0 [facility] [address] [facility] [id number] [address] [place] [phone] May, [facility] [address] [facility] [id number] [address] [place] [address] May, Depression with anxiety 300. 4 [place] [address] [place] [id number] [address] [place] [phone] May, [facility] [address] [place] [id number] [address] [place] [phone] Apr, [facility] [address] [place] [id number] [address] [place] [phone] Apr, [facility] [address] [place] [id number] [address] [place] [address] Apr, Depression, major, recurrent , mild 296.31 [facility] [address] [place] [id number] [address] [place] [address] Apr, Depression, major, recurrent , mild 296.31 [place] [address] [place] [id number] [address] [place] [address] Apr, Cervicalgia 723.1 ; Lumbago 724.2 ; Anxiety state, unspecified 300.00 ; Nausea 787.02 ; 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 ; Recurrent UTI (urinary tract infection) 599.0 and Knee pain, bilateral 719.46 [place] [address] [place] [id number] [address] [place] [phone] March, Depression, major, recurrent , mild 296.31 [facility] [address] [place] [id number] [address] [place] [phone] March, [facility] [address] [place] [id number] [address] [place] [phone] March, [facility] [address] [place] [id number] [address] [place] [phone] March, Lumbago 724.2 ; Insomnia, un specified 780.52 ; Depressive disorder, not elsewhere classified 311 ; 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 ; Anxiety 300.00 ; Allergic rhinitis 477.9 and GERD (gastroesophageal reflux disease) 530.81 [facility] [address] [place] [id number] [address] [place] [phone] Feb, [facility] [address] [id number] [address] [place] [address], [place] [address] Feb, [facility] [address] [id number] [address] [place] [address], [place] [address] Jan, [facility] [address] [id number] [address] [place] [address], [place] [address] Jan, [facility] [address] [id number] [address] [place] [address], [place] [address] Jan, [facility] [address] [id number] [address] [place] [address], [place] [address] Jan, [facility] [address] [id number] [address] [place] [address], [place] [address] Dec, [facility] [address] [id number] [address] [place] [address], [place] [address] Dec, [facility] [address] [id number] [address] [place] [address], [place] [address] Dec, [facility] [address] [id number] [address] [place] [address], [place] [address] Dec, [facility] [address] [id number] [address] [place] [address], [place] [address] Dec, [facility] [address] [id number] [address] [place] [address], [place] [address] Dec, [facility] [address] [id number] [address] [place] [address], [place] [address] Dec, [facility] [address] [id number] [address] [place] [address], [place] [address] Nov, [facility] [address] [id number] [address] [place] [address], [place] [address] Nov, [facility] [address] [id number] [address] [place] [address], [place] [address] Nov, [facility] [address] [id number] [address] [place] [address] [address] Nov, [facility] [address] [id number] [address] [place] [address], [place] [address] Nov, [facility] [address] [id number] [address] [place] [address], [place] [address] Nov, [facility] [address] [id number] [address] [place] [address], [place] [address] Nov, [facility] [address] [id number] [address] [place] [address], [place] [address] Nov, [facility] [address] [id number] [address] [place] [address], [place] [address] Nov, [facility] [address] [id number] [address] [place] [address], [place] [address] Nov, [facility] [address] [id number] [address] [place] [address], [place] [address] Nov, [facility] [address] [id number] [address] [place] [address], [place] [address] Nov, [facility] [address] [id number] [address] [place] [address], [place] [address] Nov, [facility] [address] [id number] [address] [place] [address], [place] [address] Nov, [facility] [address] [id number] [address] [place] [address], [place] [address] Nov, [facility] [address] [id number] [address] [place] [address], [place] [address] Nov, [facility] [address] [id number] [address] [place] [address], [place] [address] Nov, [facility] [address] [id number] [address] [place] [address], [place] [address] Nov, [facility] [address] [id number] [address] [place] [address], [place] [address] Nov, [facility] [address] [id number] [address] [place] [address], [place] [address] Nov, [facility] [address] [id number] [address] [place] [address], [place] [address] Nov, [facility] [address] [id number] [address] [place] [address], [place] [address] Nov, [facility] [address] [id number] [address] [place] [address], [place] [address] Nov, [facility] [address] [id number] [address] [place] [address], [place] [address] Nov, [facility] [address] [id number] [address] [place] [address], [place] [address] Nov, [facility] [address] [id number] [address] [place] [address], [place] [address] Nov, [facility] [address] [id number] [address] [place] [address], [place] [address] Nov, [facility] [address] [id number] [address] [place] [address], [place] [address] Nov, [facility] [address] [id number] [address] [place] [address], [place] [address] Nov, [facility] [address] [id number] [address] [place] [address], [place] [address] Oct, [facility] [address] [id number] [address] [place] [address], [place] [address] Oct, [facility] [address] [id number] [address] [place] [address], [place] [address] Oct, [facility] [address] [id number] [address] [place] [address], [place] [address] Oct, [facility] [address] [id number] [address] [place] [address], [place] [address] Oct, [facility] [address] [id number] [address] [place] [address], [place] [address] Oct, [facility] [address] [id number] [address] [place] [address], [place] [address] Oct, [facility] [address] [id number] [address] [place] [address], [place] [address] Oct, [facility] [address] [id number] [address] [place] [address], [place] [address] Oct, [facility] [address] [id number] [address] [place] [address], [place] [address] Oct, [facility] [address] [id number] [address] [place] [address], [place] [address] Oct, [facility] [address] [id number] [address] [place] [address], [place] [address] Oct, [facility] [address] [id number] [address] [place] [address], [place] [address] Oct, [facility] [address] [id number] [address] [place] [address], [place] [address] Oct, [facility] [address] [id number] [address] [place] [address], [place] [address] Oct, [facility] [address] [id number] [address] [place] [address], [place] [address] Oct, [facility] [address] [id number] [address] [place] [address], [place] [address] Oct, [facility] [address] [id number] [address] [place] [address], [place] [address] Oct, [facility] [address] [id number] [address] [place] [address], [place] [address] Oct, [facility] [address] [id number] [address] [place] [address], [place] [address] 05 Oct, 2014 [facility] [address] [id number] [address] [place] [address], [place] [address] 05 Oct, 2014 [facility] [address] [id number] [address] [place] [address], [place] [address] Oct, [facility] [address] [id number] [address] [place] [address], [place] [address] Oct, [facility] [address] [id number] [address] [place] [address], [place] [address] Sep, [facility] [address] [id number] [address] [place] [address], [place] [address] Sep, [facility] [address] [id number] [address] [place] [address], [place] [address] Sep, [facility] [address] [id number] [address] [place] [address], [place] [address] Sep, [facility] [address] [id number] [address] [place] [address], [place] [address] Sep, [facility] [address] [id number] [address] [place] [address], [place] [address] Sep, [facility] [address] [id number] [address] [place] [address], [place] [address] Sep, [facility] [address] [id number] [address] [place] [address], [place] [address] Sep, [facility] [address] [id number] [address] [place] [address], [place] [address] Sep, [facility] [address] [id number] [address] [place] [address], [place] [address] Sep, [facility] [address] [id number] [address] [place] [address], [place] [address] Sep, [facility] [address] [id number] [address] [place] [address], [place] [address] Sep, [facility] [address] [id number] [address] [place] [address], [place] [address] Sep, [facility] [address] [id number] [address] [place] [address], [place] [address] Sep, [facility] [address] [id number] [address] [place] [address], [place] [address] Sep, [facility] [address] [id number] [address] [place] [address], [place] [address] Sep, [facility] [address] [id number] [address] [place] [address], [place] [address] Sep, [facility] [address] [id number] [address] [place] [address], [place] [address] Sep, [facility] [address] [id number] [address] [place] [address], [place] [address] Sep, [facility] [address] [id number] [address] [place] [address], [place] [address] Sep, [facility] [address] [id number] [address] [place] [address], [place] [address] Sep, [facility] [address] [id number] [address] [place] [address], [place] [address] Sep, [facility] [address] [id number] [address] [place] [address], [place] [address] Sep, [facility] [address] [id number] [address] [place] [address], [place] [address] Sep, [facility] [address] [id number] [address] [place] [address], [place] [address] Sep, [facility] [address] [id number] [address] [place] [address], [place] [address] Sep, [facility] [address] [id number] [address] [place] [address], [place] [address] Sep, [facility] [address] [id number] [address] [place] [address], [place] [address] Sep, [facility] [address] [id number] [address] [place] [address], [place] [address] Aug, [facility] [address] [id number] [address] [place] [address], [place] [address] Aug, [facility] [address] [id number] [address] [place] [address], [place] [address] Aug, [facility] [address] [id number] [address] [place] [address], [place] [address] Aug, [facility] [address] [id number] [address] [place] [address], [place] [address] Aug, [facility] [address] [id number] [address] [place] [address], [place] [address] Aug, [facility] [address] [id number] [address] [place] [address], [place] [address] Aug, [facility] [address] [id number] [address] [place] [address], [place] [address] Aug, [facility] [address] [id number] [address] [place] [address], [place] [address] Aug, [facility] [address] [id number] [address] [place] [address], [place] [address] Aug, [facility] [address] [id number] [address] [place] [address], [place] [address] Aug, [facility] [address] [id number] [address] [place] [id number] Aug, [facility] [address] [id number] [address] [place] [id number] Aug, [facility] [address] [id number] [address] [place] [id number] Aug, [facility] [address] [id number] [address] [place] [address], [place] [address] Aug, [facility] [address] [id number] [address] [place] [address], [place] [address] Aug, [facility] [address] [id number] [address] [place] [id number] Aug, [facility] [address] [id number] [address] [place] [id number] 17 Aug, 2013 [facility] [address] [id number] [address] [place] [address], [place] [address] 14 Aug, 2013 [facility] [address] [id number] [address] [place] [id number] 14 Aug, 2013 [facility] [address] [id number] [address] [place] [address], [place] [id number] 09 Aug, 2013 [facility] [address] [id number] [address] [place] [id number] 09 Aug, 2013 [facility] [address] [id number] [address] [place] [address], [place] [address] Aug, 2013 [facility] [address] [id number] [address] [place] [address], [place] [address] Aug, 2013 [facility] [address] [id number] [address] [place] [id number] 08 Aug, 2013 [facility] [address] [id number] [address] [place] [id number] 07 Aug, 2013 [facility] [address] [id number] [address] [place] [id number] Aug, 2013 [facility] [address] [id number] [address] [place] [id number] Aug, 2013 [facility] [address] [id number] [address] [place] [id number] 07 Aug, 2013 [facility] [address] [id number] [address] [place] [id number] 30 Jul, 2013 [facility] [address] [id number] [address] [place] [id number] 30 Jul, 2013 [facility] [address] [id number] [address] [place] [id number] 29 Jul, 2013 [facility] [address] [id number] [address] [place] [id number] 29 Jul, 2013 [facility] [address] [id number] [facility] [place] [id number] 19 Jul, 2013 [facility] [address] [id number] [facility] [place] [id number] 19 Jul, 2013 [facility] [address] [id number] [facility] [place] [address] 18 Jul, 2013 [facility] [address] [id number] [facility] [place] [id number] 18 Jul, 2013 [facility] [address] [id number] [facility] [place] [id number] 17 Jul, 2013 [facility] [address] [id number] [address] [place] [address], [place] [id number] 17 Jul, 2013 [facility] [address] [id number] [address] [place] [address], [place] [address] 10 Jul, 2013 [facility] [address] [id number] [address] [place] [address], [place] [id number] 10 Jul, 2013 [facility] [facility] [address] [id number] [address] [place] [address], [place] [id number] Jun, [facility] [address] [id number] [address] [place] [address], [place] [id number] Jun, [facility] [address] [id number] [address] [place] [address], [place] [address] Jun, [facility] [address] [id number] [address] [place] [address], [place] [address] Jun, [facility] [address] [id number] [address] [place] [address], [place] [id number] Jun, [facility] [address] [id number] [address] [place] [address], [place] [id number] Jun, [facility] [address] [id number] [address] [place] [address], [place] [address] Jun, [facility] [address] [id number] [address] [place] [address] [address] Jun, [facility] [address] [id number] [address] [place] [id number] Jun, [facility] [address] [id number] [address] [place] [id number] Jun, [facility] [address] [id number] [address] [place] [id number] Jun, [facility] [address] [id number] [address] [place] [id number] Jun, [facility] [address] [id number] [address] [place] [id number] May, [facility] [address] [id number] [address] [place] [id number] May, [facility] [address] [facility] [id number] [address] [place] [id number] May, IMMUNIZATIONS No Known Immunizations SOCIAL HISTORY [...]
--- OUTSIDE RECORDS SUMMARY | 2020-05-03 14:32 | XMS REPORT ---
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 20 Active 804294318 Problem Screening breast examination Z12.39 A ctive 958723025 Problem Irritable bowel syndrome without diarrhea K58.9 Active 56906492 Problem Irritable bowel syndrome with diarrhea K58.0 Active 390995224 ALLERGIES No Information ENCOUNTERS Encounter Location Date Diagnosis [facility] [address] [id number] [place] [address] [id number] March, Dental examination Z01.20 [facility] [address] [id number] [address] [place] [address] [id number] Feb, Caries K02.9 [facility] [address] [id number] [address] [place] [address] [id number] Feb, Caries K02.9 [facility] [address] [id number] [address] [place] [address] [id number] Jan, [facility] [address] [id number] [address] [place] [address] [id number] Jan, Caries K02.9 [facility] [address] [id number] [address] [place] [address] [id number] Dec, [facility] [address] [id number] [address] [place] [address] [id number] 18 Dec, 2018 Dental examination Z01.20 an d Caries K02.9 [place] [address] [id number] 14 Sep, 2016 Dental examination Z01.20 [place] [address] [place] [id number] [address] [place] [id number] 08 Jan, 2016 Nausea R11.0 ; Irritable bow el syndrome without diarrhea K58.9 and History of renal transplant Z94.0 [place] [address] [id number] 2015 [place] [address] [id number] 11 Dec, 2015 Breast pain N64.4 ; Screenin g breast examination Z12.39 and Mild intermittent asthma without complication J45.20 [place] [address] [id number] 10 Dec, 2015 [place] [address] [id number] 09 Dec, 2015 Kidney transplant status Z94 .0 ; Personal history of immunosupression therapy Z92.25 ; Recurrent UTI N39.0 and Encounter for screening, unspecified Z13.9 [place] [address] [place] [id number] [address] [place] [phone] Oct, [place] [address] [place] [id number] [address] [place] [phone] Oct, [place] [address] [place] [id number] [address] [place] [id number] Oct, [place] [address] [address] Oct, Hiatal hernia K44.9 and Atyp ical chest pain R07.89 [place] [address] [place] [id number] [address] [place] [phone] Oct, [place] [address] [id number] [address] [place] [id number] Sep, Kidney replaced by transplan t V42.0 and Bilateral low back pain with sciatica, sciatica laterality unspecified M54.40 [facility] [address] [id number] [address] [place] [phone] Sep, [facility] [address] [id number] [address] [place] [phone] Sep, Kidney replaced by transplan t V42.0 ; Bilateral low back pain with sciatica, sciatica laterality unspecified M54.40 ; Anxiety F41.9 and Primary insomnia F51.01 [facility] [address] [id number] [address] [place] [id number] Aug, [facility] [address] [id number] [address] [place] [phone] Aug, [facility] [address] [id number] [address] [place] [id number] Aug, Kidney transplant status Z94 .0 ; Personal history of immunosupression therapy Z92.25 ; Recurrent urinary tract infection N39.0 and Screening Z13.9 [facility] [address] [id number] [address] [place] [phone] Aug, [facility] [address] [id number] [address] [place] [phone] Aug, Encounter for aftercare foll owing kidney transplant Z48.22 ; Chronic radicular pain of lower back M54.16 and PND (post-nasal drip) R09.82 [facility] [address] [id number] [address] [place] [phone] Jul, [facility] [address] [id number] [address] [place] [phone] Jul, [facility] [address] [id number] [address] [place] [phone] Jul, [facility] [address] [id number] [address] [place] [id number] Jul, Kidney replaced by transplan t V42.0 ; Depressive disorder, not elsewhere classified 311 ; Anxiety state, unspecified 300.00 ; Insomnia, unspecified 780.52 ; Irritable bowel syndrome 564.1 ; Chronic lumbar pain 724.2 and GERD (gastroesophageal reflux disease) 530.81 [facility] [address] [id number] [address] [place] [phone] Jul, [facility] [address] [id number] [address] [place] [phone] Jun, [facility] [address] [id number] [address] [place] [phone] Jun, [facility] [address] [facility] [id number] [address] [place] [phone] Jun, [facility] [address] [facility] [id number] [address] [place] [phone] Jun, Kidney replaced by transplan t V42.0 [facility] [address] [facility] [id number] [address] [place] [phone] May, [facility] [address] [facility] [id number] [address] [place] [phone] May, Depression with anxiety 300. 4 and Skin infection 686.9 [facility] [address] [facility] [id number] [address] [place] [phone] May, [facility] [address] [id number] [address] [place] [phone] May, Kidney replaced by transplan t V42.0 ; Recurrent UTI (urinary tract infection) 599.0 and Absence of menstruation 626.0 [facility] [address] [facility] [id number] [address] [place] [phone] May, [facility] [address] [facility] [id number] [address] [place] [phone] May, Depression with anxiety 300. 4 [place] [address] [place] [id number] [address] [place] [phone] May, [facility] [address] [place] [id number] [address] [place] [phone] Apr, [facility] [address] [place] [id number] [address] [place] [phone] Apr, [facility] [address] [place] [id number] [address] [place] [address] Apr, Depression, major, recurrent , mild 296.31 [facility] [address] [place] [id number] [address] [place] [address] Apr, Depression, major, recurrent , mild 296.31 [place] [address] [place] [id number] [address] [place] [phone] Apr, Cervicalgia 723.1 ; Lumbago 724.2 ; Anxiety state, unspecified 300.00 ; Nausea 787.02 ; 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 ; Recurrent UTI (urinary tract infection) 599.0 and Knee pain, bilateral 719.46 [place] [address] [place] [id number] [address] [place] [phone] March, Depression, major, recurrent , mild 296.31 [facility] [address] [place] [id number] [address] [place] [phone] March, [facility] [address] [place] [id number] [address] [place] [phone] March, [facility] [address] [place] [id number] [address] [place] [phone] March, Lumbago 724.2 ; Insomnia, un specified 780.52 ; Depressive disorder, not elsewhere classified 311 ; 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 ; Anxiety 300.00 ; Allergic rhinitis 477.9 and GERD (gastroesophageal reflux disease) 530.81 [facility] [address] [place] [id number] [address] [place] [phone] Feb, [facility] [address] [id number] [address] [place] [address], [place] [address] Feb, [facility] [address] [id number] [address] [place] [address], [place] [address] Jan, [facility] [address] [id number] [address] [place] [address], [place] [address] Jan, [facility] [address] [id number] [address] [place] [address], [place] [address] Jan, [facility] [address] [id number] [address] [place] [address], [place] [address] Jan, [facility] [address] [id number] [address] [place] [address], [place] [address] Dec, [facility] [address] [id number] [address] [place] [address], [place] [address] Dec, [facility] [address] [id number] [address] [place] [address], [place] [address] Dec, [facility] [address] [id number] [address] [place] [address], [place] [address] Dec, [facility] [address] [id number] [address] [place] [address], [place] [address] Dec, [facility] [address] [id number] [address] [place] [address], [place] [address] Dec, [facility] [address] [id number] [address] [place] [address], [place] [address] Dec, [facility] [address] [id number] [address] [place] [address], [place] [address] Nov, [facility] [address] [id number] [address] [place] [address], [place] [address] Nov, [facility] [address] [id number] [address] [place] [address], [place] [address] Nov, [facility] [address] [id number] [address] [place] [address] [address] Nov, [facility] [address] [id number] [address] [place] [address], [place] [address] Nov, [facility] [address] [id number] [address] [place] [address], [place] [address] Nov, [facility] [address] [id number] [address] [place] [address], [place] [address] Nov, [facility] [address] [id number] [address] [place] [address], [place] [address] Nov, [facility] [address] [id number] [address] [place] [address], [place] [address] Nov, [facility] [address] [id number] [address] [place] [address], [place] [address] Nov, [facility] [address] [id number] [address] [place] [address], [place] [address] Nov, [facility] [address] [id number] [address] [place] [address], [place] [address] Nov, [facility] [address] [id number] [address] [place] [address], [place] [address] Nov, [facility] [address] [id number] [address] [place] [address], [place] [address] Nov, [facility] [address] [id number] [address] [place] [address], [place] [address] Nov, [facility] [address] [id number] [address] [place] [address], [place] [address] Nov, [facility] [address] [id number] [address] [place] [address], [place] [address] Nov, [facility] [address] [id number] [address] [place] [address], [place] [address] Nov, [facility] [address] [id number] [address] [place] [address], [place] [address] Nov, [facility] [address] [id number] [address] [place] [address], [place] [address] Nov, [facility] [address] [id number] [address] [place] [address], [place] [address] Nov, [facility] [address] [id number] [address] [place] [address], [place] [address] Nov, [facility] [address] [id number] [address] [place] [address], [place] [address] Nov, [facility] [address] [id number] [address] [place] [address], [place] [address] Nov, [facility] [address] [id number] [address] [place] [address], [place] [address] Nov, [facility] [address] [id number] [address] [place] [address], [place] [address] Nov, [facility] [address] [id number] [address] [place] [address], [place] [address] Nov, [facility] [address] [id number] [address] [place] [address], [place] [address] Nov, [facility] [address] [id number] [address] [place] [address], [place] [address] Nov, [facility] [address] [id number] [address] [place] [address], [place] [address] Oct, [facility] [address] [id number] [address] [place] [address], [place] [address] Oct, [facility] [address] [id number] [address] [place] [address], [place] [address] Oct, [facility] [address] [id number] [address] [place] [address], [place] [address] Oct, [facility] [address] [id number] [address] [place] [address], [place] [address] Oct, [facility] [address] [id number] [address] [place] [address], [place] [address] Oct, [facility] [address] [id number] [address] [place] [address], [place] [address] Oct, [facility] [address] [id number] [address] [place] [address], [place] [address] Oct, [facility] [address] [id number] [address] [place] [address], [place] [address] Oct, [facility] [address] [id number] [address] [place] [address], [place] [address] Oct, [facility] [address] [id number] [address] [place] [address], [place] [address] Oct, [facility] [address] [id number] [address] [place] [address], [place] [address] Oct, [facility] [address] [id number] [address] [place] [address], [place] [address] Oct, [facility] [address] [id number] [address] [place] [address], [place] [address] Oct, [facility] [address] [id number] [address] [place] [address], [place] [address] Oct, [facility] [address] [id number] [address] [place] [address], [place] [address] Oct, [facility] [address] [id number] [address] [place] [address], [place] [address] Oct, [facility] [address] [id number] [address] [place] [address], [place] [address] Oct, [facility] [address] [id number] [address] [place] [address], [place] [address] Oct, [facility] [address] [id number] [address] [place] [address], [place] [address] 05 Oct, 2014 [facility] [address] [id number] [address] [place] [address], [place] [address] 05 Oct, 2014 [facility] [address] [id number] [address] [place] [address], [place] [address] Oct, [facility] [address] [id number] [address] [place] [address], [place] [address] Oct, [facility] [address] [id number] [address] [place] [address], [place] [address] Sep, [facility] [address] [id number] [address] [place] [address], [place] [address] Sep, [facility] [address] [id number] [address] [place] [address], [place] [address] Sep, [facility] [address] [id number] [address] [place] [address], [place] [address] Sep, [facility] [address] [id number] [address] [place] [address], [place] [address] Sep, [facility] [address] [id number] [address] [place] [address], [place] [address] Sep, [facility] [address] [id number] [address] [place] [address], [place] [address] Sep, [facility] [address] [id number] [address] [place] [address], [place] [address] Sep, [facility] [address] [id number] [address] [place] [address], [place] [address] Sep, [facility] [address] [id number] [address] [place] [address], [place] [address] Sep, [facility] [address] [id number] [address] [place] [address], [place] [address] Sep, [facility] [address] [id number] [address] [place] [address], [place] [address] Sep, [facility] [address] [id number] [address] [place] [address], [place] [address] Sep, [facility] [address] [id number] [address] [place] [address], [place] [address] Sep, [facility] [address] [id number] [address] [place] [address], [place] [address] Sep, [facility] [address] [id number] [address] [place] [address], [place] [address] Sep, [facility] [address] [id number] [address] [place] [address], [place] [address] Sep, [facility] [address] [id number] [address] [place] [address], [place] [address] Sep, [facility] [address] [id number] [address] [place] [address], [place] [address] Sep, [facility] [address] [id number] [address] [place] [address], [place] [address] Sep, [facility] [address] [id number] [address] [place] [address], [place] [address] Sep, [facility] [address] [id number] [address] [place] [address], [place] [address] Sep, [facility] [address] [id number] [address] [place] [address], [place] [address] Sep, [facility] [address] [id number] [address] [place] [address], [place] [address] Sep, [facility] [address] [id number] [address] [place] [address], [place] [address] Sep, [facility] [address] [id number] [address] [place] [address], [place] [address] Sep, [facility] [address] [id number] [address] [place] [address], [place] [address] Sep, [facility] [address] [id number] [address] [place] [address], [place] [address] Sep, [facility] [address] [id number] [address] [place] [address], [place] [address] Aug, [facility] [address] [id number] [address] [place] [address], [place] [address] Aug, [facility] [address] [id number] [address] [place] [address], [place] [address] Aug, [facility] [address] [id number] [address] [place] [address], [place] [address] Aug, [facility] [address] [id number] [address] [place] [address], [place] [address] Aug, [facility] [address] [id number] [address] [place] [address], [place] [address] Aug, [facility] [address] [id number] [address] [place] [address], [place] [address] Aug, [facility] [address] [id number] [address] [place] [address], [place] [address] Aug, [facility] [address] [id number] [address] [place] [address], [place] [address] Aug, [facility] [address] [id number] [address] [place] [address], [place] [address] Aug, [facility] [address] [id number] [address] [place] [address], [place] [address] Aug, [facility] [address] [id number] [address] [place] [id number] Aug, [facility] [address] [id number] [address] [place] [id number] Aug, [facility] [address] [id number] [address] [place] [id number] Aug, [facility] [address] [id number] [address] [place] [address], [place] [address] Aug, [facility] [address] [id number] [address] [place] [address], [place] [address] Aug, [facility] [address] [id number] [address] [place] [id number] Aug, [facility] [address] [id number] [address] [place] [id number] 17 Aug, 2013 [facility] [address] [id number] [address] [place] [address], [place] [address] 14 Aug, 2013 [facility] [address] [id number] [address] [place] [id number] 14 Aug, 2013 [facility] [address] [id number] [address] [place] [address], [place] [address] 09 Aug, 2013 [facility] [address] [id number] [address] [place] [id number] 09 Aug, 2013 [facility] [address] [id number] [address] [place] [address], [place] [address] Aug, 2013 [facility] [address] [id number] [address] [place] [address], [place] [address] Aug, 2013 [facility] [address] [id number] [address] [place] [id number] 08 Aug, 2013 [facility] [address] [id number] [address] [place] [id number] 07 Aug, 2013 [facility] [address] [id number] [address] [place] [id number] Aug, 2013 [facility] [address] [id number] [address] [place] [id number] Aug, 2013 [facility] [address] [id number] [address] [place] [id number] 07 Aug, 2013 [facility] [address] [id number] [address] [place] [id number] 30 Jul, 2013 [facility] [address] [id number] [address] [place] [id number] 30 Jul, 2013 [facility] [address] [id number] [address] [place] [id number] 29 Jul, 2013 [facility] [address] [id number] [address] [place] [id number] 29 Jul, 2013 [facility] [address] [id number] [facility] [address] 19 Jul, 2013 [facility] [address] [id number] [facility] [address] 19 Jul, 2013 [facility] [address] [id number] [facility] [address] 18 Jul, 2013 [facility] [address] [id number] [facility] [address] 18 Jul, 2013 [facility] [address] [id number] [facility] [address] 17 Jul, 2013 [facility] [address] [id number] [address] [place] [address], [place] [address] 17 Jul, 2013 [facility] [address] [id number] [address] [place] [address], [place] [address] 10 Jul, 2013 [facility] [address] [id number] [address] [place] [address], [place] [address] 10 Jul, 2013 [facility] [address] [id number] [address] [place] [address], [place] [address] Jun, [facility] [address] [id number] [address] [place] [address], [place] [address] Jun, [facility] [address] [id number] [address] [place] [address], [place] [address] Jun, [facility] [address] [id number] [address] [place] [address], [place] [address] Jun, [facility] [address] [id number] [address] [place] [address], [place] [address] Jun, [facility] [address] [id number] [address] [place] [address], [place] [address] Jun, [facility] [address] [id number] [address] [place] [address], [place] [address] Jun, [facility] [address] [id number] [address] [place] [address] [address] Jun, [facility] [address] [id number] [address] [place] [id number] Jun, [facility] [address] [id number] [address] [place] [id number] Jun, [facility] [address] [id number] [address] [place] [id number] Jun, [facility] [address] [id number] [address] [place] [id number] Jun, [facility] [address] [id number] [address] [place] [id number] May, [facility] [address] [id number] [address] [place] [id number] May, [facility] [facility] [address] [facility] [id number] [address] [place] [id number] May, IMMUNIZATIONS No Known Immunizations SOCIAL HISTORY [...]
--- OUTSIDE RECORDS SUMMARY | 2020-05-03 14:32 | XMS REPORT ---
Author Author Tracee AVILA Organization [facility] Address [address] [place] [address] Care Team Providers Care Paver Name Role Phone SARAI AVILA Unavailable PROBLEMS Type Condition ICD9-CM Code ERI25-DW Code Onset Dates Condition S tatus SNOMED Code Problem Primary insomnia F51.01 Active 397 2004 Problem Breast pain N64.4 Active 01361056 Problem History of renal transplant Z94.0 Ac tive 756422251 Problem Violation of controlled substance agreement Z91.14 Active 248609820 Problem Mild intermittent asthma without complication J45. 20 Active 663553881 Problem Screening breast examination Z12.39 A ctive 290781651 Problem Irritable bowel syndrome without diarrhea K58.9 Active 73744710 Problem Irritable bowel syndrome with diarrhea K58.0 Active 669914376 ALLERGIES No Information ENCOUNTERS Encounter Location Date Diagnosis [facility] [id number] [place] [address] [id number] March, Dental examination Z01.20 [facility] [address] [id number] [address] [place] [address] [id number] Feb, Caries K02.9 [facility] [address] [id number] [address] [place] [address] [id number] Feb, Caries K02.9 [facility] [address] [id number] [address] [place] [address] [id number] Jan, [facility] [address] [id number] [address] [place] [address] [id number] Jan, Caries K02.9 [facility] [address] [id number] [address] [place] [address] [id number] Dec, [facility] [address] [id number] [address] [place] [address] [id number] 18 Dec, 2018 Dental examination Z01.20 an d Caries K02.9 [place] [address] [id number] 14 Sep, 2016 Dental examination Z01.20 [place] [address] [place] [id number] [address] [place] [id number] 08 Jan, 2016 Nausea R11.0 ; Irritable bow el syndrome without diarrhea K58.9 and History of renal transplant Z94.0 [place] [address] [id number] 2015 [place] [address] [id number] 11 Dec, 2015 Breast pain N64.4 ; Screenin g breast examination Z12.39 and Mild intermittent asthma without complication J45.20 [place] [address] [id number] 10 Dec, 2015 [place] [address] [id number] 09 Dec, 2015 Kidney transplant status Z94 .0 ; Personal history of immunosupression therapy Z92.25 ; Recurrent UTI N39.0 and Encounter for screening, unspecified Z13.9 [place] [address] [place] [id number] [address] [place] [address] Oct, [place] [address] [place] [id number] [address] [place] [address] Oct, [place] [address] [place] [id number] [address] [place] [address] Oct, [place] [address] [address] Oct, Hiatal hernia K44.9 and Atyp ical chest pain R07.89 [place] [address] [place] [id number] [address] [place] [address] Oct, [place] [address] [id number] [address] [place] [address] Sep, Kidney replaced by transplan t V42.0 and Bilateral low back pain with sciatica, sciatica laterality unspecified M54.40 [facility] [address] [id number] [address] [place] [address] Sep, [facility] [address] [id number] [address] [place] [address] Sep, Kidney replaced by transplan t V42.0 ; Bilateral low back pain with sciatica, sciatica laterality unspecified M54.40 ; Anxiety F41.9 and Primary insomnia F51.01 [facility] [address] [id number] [address] [place] [address] Aug, [facility] [address] [id number] [address] [place] [address] Aug, [facility] [address] [id number] [address] [place] [address] Aug, Kidney transplant status Z94 .0 ; Personal history of immunosupression therapy Z92.25 ; Recurrent urinary tract infection N39.0 and Screening Z13.9 [facility] [address] [id number] [address] [place] [address] Aug, [facility] [address] [id number] [address] [place] [address] Aug, Encounter for aftercare foll owing kidney transplant Z48.22 ; Chronic radicular pain of lower back M54.16 and PND (post-nasal drip) R09.82 [facility] [address] [id number] [address] [place] [address] Jul, [facility] [address] [id number] [address] [place] [address] Jul, [facility] [address] [id number] [address] [place] [address] Jul, [facility] [address] [id number] [address] [place] [address] Jul, Kidney replaced by transplan t V42.0 ; Depressive disorder, not elsewhere classified 311 ; Anxiety state, unspecified 300.00 ; Insomnia, unspecified 780.52 ; Irritable bowel syndrome 564.1 ; Chronic lumbar pain 724.2 and GERD (gastroesophageal reflux disease) 530.81 [facility] [address] [id number] [address] [place] [address] Jul, [facility] [address] [id number] [address] [place] [address] Jun, [facility] [address] [id number] [address] [place] [address] Jun, [facility] [address] [facility] [id number] [address] [place] [address] Jun, [facility] [address] [facility] [id number] [address] [place] [address] Jun, Kidney replaced by transplan t V42.0 [facility] [address] [facility] [id number] [address] [place] [address] May, [facility] [address] [facility] [id number] [address] [place] [address] May, Depression with anxiety 300. 4 and Skin infection 686.9 [facility] [address] [facility] [id number] [address] [place] [address] May, [facility] [address] [id number] [address] [place] [address] May, Kidney replaced by transplan t V42.0 ; Recurrent UTI (urinary tract infection) 599.0 and Absence of menstruation 626.0 [facility] [address] [facility] [id number] [address] [place] [address] May, [facility] [address] [facility] [id number] [address] [place] [address] May, Depression with anxiety 300. 4 [place] [address] [place] [id number] [address] [place] [address] May, [facility] [address] [place] [id number] [address] [place] [address] Apr, [facility] [address] [place] [id number] [address] [place] [address] Apr, [facility] [address] [place] [id number] [address] [place] [address] Apr, Depression, major, recurrent , mild 296.31 [facility] [address] [place] [id number] [address] [place] [address] Apr, Depression, major, recurrent , mild 296.31 [place] [address] [place] [id number] [address] [place] [address] Apr, Cervicalgia 723.1 ; Lumbago 724.2 ; Anxiety state, unspecified 300.00 ; Nausea 787.02 ; 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 ; Recurrent UTI (urinary tract infection) 599.0 and Knee pain, bilateral 719.46 [place] [address] [place] [id number] [address] [place] [address] March, Depression, major, recurrent , mild 296.31 [facility] [address] [place] [id number] [address] [place] [address] March, [facility] [address] [place] [id number] [address] [place] [address] March, [facility] [address] [place] [id number] [address] [place] [address] March, Lumbago 724.2 ; Insomnia, un specified 780.52 ; Depressive disorder, not elsewhere classified 311 ; 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 ; Anxiety 300.00 ; Allergic rhinitis 477.9 and GERD (gastroesophageal reflux disease) 530.81 [facility] [address] [place] [id number] [address] [place] [address] Feb, [facility] [address] [id number] [address] [place] [address], [place] [address] Feb, [facility] [address] [id number] [address] [place] [address], [place] [address] Jan, [facility] [address] [id number] [address] [place] [address], [place] [address] Jan, [facility] [address] [id number] [address] [place] [address], [place] [address] Jan, [facility] [address] [id number] [address] [place] [address], [place] [address] Jan, [facility] [address] [id number] [address] [place] [address], [place] [address] Dec, [facility] [address] [id number] [address] [place] [address], [place] [address] Dec, [facility] [address] [id number] [address] [place] [address], [place] [address] Dec, [facility] [address] [id number] [address] [place] [address], [place] [address] Dec, [facility] [address] [id number] [address] [place] [address], [place] [address] Dec, [facility] [address] [id number] [address] [place] [address], [place] [address] Dec, [facility] [address] [id number] [address] [place] [address], [place] [address] Dec, [facility] [address] [id number] [address] [place] [address], [place] [address] Nov, [facility] [address] [id number] [address] [place] [address], [place] [address] Nov, [facility] [address] [id number] [address] [place] [address], [place] [address] Nov, [facility] [address] [id number] [address] [place] [address] [address] Nov, [facility] [address] [id number] [address] [place] [address], [place] [address] Nov, [facility] [address] [id number] [address] [place] [address], [place] [address] Nov, [facility] [address] [id number] [address] [place] [address], [place] [address] Nov, [facility] [address] [id number] [address] [place] [address], [place] [address] Nov, [facility] [address] [id number] [address] [place] [address], [place] [address] Nov, [facility] [address] [id number] [address] [place] [address], [place] [address] Nov, [facility] [address] [id number] [address] [place] [address], [place] [address] Nov, [facility] [address] [id number] [address] [place] [address], [place] [address] Nov, [facility] [address] [id number] [address] [place] [address], [place] [address] Nov, [facility] [address] [id number] [address] [place] [address], [place] [address] Nov, [facility] [address] [id number] [address] [place] [address], [place] [address] Nov, [facility] [address] [id number] [address] [place] [address], [place] [address] Nov, [facility] [address] [id number] [address] [place] [address], [place] [address] Nov, [facility] [address] [id number] [address] [place] [address], [place] [address] Nov, [facility] [address] [id number] [address] [place] [address], [place] [address] Nov, [facility] [address] [id number] [address] [place] [address], [place] [address] Nov, [facility] [address] [id number] [address] [place] [address], [place] [address] Nov, [facility] [address] [id number] [address] [place] [address], [place] [address] Nov, [facility] [address] [id number] [address] [place] [address], [place] [address] Nov, [facility] [address] [id number] [address] [place] [address], [place] [address] Nov, [facility] [address] [id number] [address] [place] [address], [place] [address] Nov, [facility] [address] [id number] [address] [place] [address], [place] [address] Nov, [facility] [address] [id number] [address] [place] [address], [place] [address] Nov, [facility] [address] [id number] [address] [place] [address], [place] [address] Nov, [facility] [address] [id number] [address] [place] [address], [place] [address] Nov, [facility] [address] [id number] [address] [place] [address], [place] [address] Oct, [facility] [address] [id number] [address] [place] [address], [place] [address] Oct, [facility] [address] [id number] [address] [place] [address], [place] [address] Oct, [facility] [address] [id number] [address] [place] [address], [place] [address] Oct, [facility] [address] [id number] [address] [place] [address], [place] [address] Oct, [facility] [address] [id number] [address] [place] [address], [place] [address] Oct, [facility] [address] [id number] [address] [place] [address], [place] [address] Oct, [facility] [address] [id number] [address] [place] [address], [place] [address] Oct, [facility] [address] [id number] [address] [place] [address], [place] [address] Oct, [facility] [address] [id number] [address] [place] [address], [place] [address] Oct, [facility] [address] [id number] [address] [place] [address], [place] [address] Oct, [facility] [address] [id number] [address] [place] [address], [place] [address] Oct, [facility] [address] [id number] [address] [place] [address], [place] [address] Oct, [facility] [address] [id number] [address] [place] [address], [place] [address] Oct, [facility] [address] [id number] [address] [place] [address], [place] [address] Oct, [facility] [address] [id number] [address] [place] [address], [place] [address] Oct, [facility] [address] [id number] [address] [place] [address], [place] [address] Oct, [facility] [address] [id number] [address] [place] [address], [place] [address] Oct, [facility] [address] [id number] [address] [place] [address], [place] [address] Oct, [facility] [address] [id number] [address] [place] [address], [place] [address] 05 Oct, 2014 [facility] [address] [id number] [address] [place] [address], [place] [address] 05 Oct, 2014 [facility] [address] [id number] [address] [place] [address], [place] [address] Oct, [facility] [address] [id number] [address] [place] [address], [place] [address] Oct, [facility] [address] [id number] [address] [place] [address], [place] [address] Sep, [facility] [address] [id number] [address] [place] [address], [place] [address] Sep, [facility] [address] [id number] [address] [place] [address], [place] [address] Sep, [facility] [address] [id number] [address] [place] [address], [place] [address] Sep, [facility] [address] [id number] [address] [place] [address], [place] [address] Sep, [facility] [address] [id number] [address] [place] [address], [place] [address] Sep, [facility] [address] [id number] [address] [place] [address], [place] [address] Sep, [facility] [address] [id number] [address] [place] [address], [place] [address] Sep, [facility] [address] [id number] [address] [place] [address], [place] [address] Sep, [facility] [address] [id number] [address] [place] [address], [place] [address] Sep, [facility] [address] [id number] [address] [place] [address], [place] [address] Sep, [facility] [address] [id number] [address] [place] [address], [place] [address] Sep, [facility] [address] [id number] [address] [place] [address], [place] [address] Sep, [facility] [address] [id number] [address] [place] [address], [place] [address] Sep, [facility] [address] [id number] [address] [place] [address], [place] [address] Sep, [facility] [address] [id number] [address] [place] [address], [place] [address] Sep, [facility] [address] [id number] [address] [place] [address], [place] [address] Sep, [facility] [address] [id number] [address] [place] [address], [place] [address] Sep, [facility] [address] [id number] [address] [place] [address], [place] [address] Sep, [facility] [address] [id number] [address] [place] [address], [place] [address] Sep, [facility] [address] [id number] [address] [place] [address], [place] [address] Sep, [facility] [address] [id number] [address] [place] [address], [place] [address] Sep, [facility] [address] [id number] [address] [place] [address], [place] [address] Sep, [facility] [address] [id number] [address] [place] [address], [place] [address] Sep, [facility] [address] [id number] [address] [place] [address], [place] [address] Sep, [facility] [address] [id number] [address] [place] [address], [place] [address] Sep, [facility] [address] [id number] [address] [place] [address], [place] [address] Sep, [facility] [address] [id number] [address] [place] [address], [place] [address] Sep, [facility] [address] [id number] [address] [place] [address], [place] [address] Aug, [facility] [address] [id number] [address] [place] [address], [place] [address] Aug, [facility] [address] [id number] [address] [place] [address], [place] [address] Aug, [facility] [address] [id number] [address] [place] [address], [place] [address] Aug, [facility] [address] [id number] [address] [place] [address], [place] [address] Aug, [facility] [address] [id number] [address] [place] [address], [place] [address] Aug, [facility] [address] [id number] [address] [place] [address], [place] [address] Aug, [facility] [address] [id number] [address] [place] [address], [place] [address] Aug, [facility] [address] [id number] [address] [place] [address], [place] [address] Aug, [facility] [address] [id number] [address] [place] [address], [place] [address] Aug, [facility] [address] [id number] [address] [place] [address], [place] [address] Aug, [facility] [address] [id number] [address] [place] [id number] Aug, [facility] [address] [id number] [address] [place] [id number] Aug, [facility] [address] [id number] [address] [place] [id number] Aug, [facility] [address] [id number] [address] [place] [address], [place] [address] Aug, [facility] [address] [id number] [address] [place] [address], [place] [address] Aug, [facility] [address] [id number] [address] [place] [id number] Aug, [facility] [address] [id number] [address] [place] [id number] 17 Aug, 2013 [facility] [address] [id number] [address] [place] [address], [place] [address] 14 Aug, 2013 [facility] [address] [id number] [address] [place] [id number] 14 Aug, 2013 [facility] [address] [id number] [address] [place] [address], [place] [address] 09 Aug, 2013 [facility] [address] [id number] [address] [place] [id number] 09 Aug, 2013 [facility] [address] [id number] [address] [place] [address], [place] [address] Aug, 2013 [facility] [address] [id number] [address] [place] [address], [place] [address] Aug, 2013 [facility] [address] [id number] [address] [place] [id number] 08 Aug, 2013 [facility] [address] [id number] [address] [place] [id number] 07 Aug, 2013 [facility] [address] [id number] [address] [place] [id number] Aug, 2013 [facility] [address] [id number] [address] [place] [id number] Aug, 2013 [facility] [address] [id number] [address] [place] [id number] 07 Aug, 2013 [facility] [address] [id number] [address] [place] [id number] 30 Jul, 2013 [facility] [address] [id number] [address] [place] [id number] 30 Jul, 2013 [facility] [address] [id number] [address] [place] [id number] 29 Jul, 2013 [facility] [address] [id number] [address] [place] [id number] 29 Jul, 2013 [facility] [address] [id number] [address] [address] 19 Jul, 2013 [facility] [address] [id number] [facility] [place] [address] 19 Jul, 2013 [facility] [address] [id number] [facility] [place] [address] 18 Jul, 2013 [facility] [address] [id number] [facility] [place] [address] 18 Jul, 2013 [facility] [address] [id number] [facility] [place] [address] 17 Jul, 2013 [facility] [address] [id number] [address] [place] [address], [place] [address] 17 Jul, 2013 [facility] [address] [id number] [address] [place] [address], [place] [address] 10 Jul, 2013 [facility] [address] [id number] [address] [place] [address], [place] [address] 10 Jul, 2013 [facility] [address] [id number] [address] [place] [address], [place] [address] Jun, [facility] [address] [id number] [address] [place] [address], [place] [address] Jun, [facility] [address] [id number] [address] [place] [address], [place] [address] Jun, [facility] [address] [id number] [address] [place] [address], [place] [address] Jun, [facility] [address] [id number] [address] [place] [address], [place] [address] Jun, [facility] [address] [id number] [address] [place] [address], [place] [id number] Jun, [facility] [address] [id number] [address] [place] [address], [place] [id number] Jun, [facility] [address] [id number] [address] [place], [place] [address] [address] Jun, [facility] [address] [id number] [address] [place] [id number] Jun, [facility] [address] [id number] [address] [place] [id number] Jun, [facility] [address] [id number] [address] [place] [id number] Jun, [facility] [address] [id number] [address] [place] [id number] Jun, [facility] [address] [id number] [address] [place] [id number] May, [facility] [address] [id number] [address] [place] [id number] May, [facility] [address] [facility] [id number] [address] [place] [id number] May, IMMUNIZATIONS No Known Immunizations SOCIAL HISTORY [...]
--- OUTSIDE RECORDS SUMMARY | 2020-05-03 14:33 | XMS REPORT ---
Author Author Tracee AVILA Organization [facility] Address [address] [place] [address] Care Team Providers Care Tandem Mill Roller Name Role Phone SARAI AVILA Unavailable PROBLEMS Type Condition ICD9-CM Code SRI82-EZ Code Onset Dates Condition S tatus SNOMED Code Problem Primary insomnia F51.01 Active 397 2004 Problem Breast pain N64.4 Active 34584046 Problem History of renal transplant Z94.0 Ac tive 189287429 Problem Violation of controlled substance agreement Z91.14 Active 698819360 Problem Mild intermittent asthma without complication J45. 20 Active 255792391 Problem Screening breast examination Z12.39 A ctive 602511093 Problem Irritable bowel syndrome without diarrhea K58.9 Active 86948228 Problem Irritable bowel syndrome with diarrhea K58.0 Active [id number] ALLERGIES No Information ENCOUNTERS Encounter Location Date Diagnosis [facility] [id number] [place] [address] [id number] March, Dental examination Z01.20 [facility] [address] [id number] [address] [place] [address] [id number] Feb, Caries K02.9 [facility] [address] [id number] [address] [place] [address] [id number] Feb, Caries K02.9 [facility] [address] [id number] [address] [place] [address] [id number] Jan, [facility] [address] [id number] [address] [place] [address] [id number] Jan, Caries K02.9 [facility] [address] [id number] [address] [place] [address] [id number] Dec, [facility] [address] [id number] [address] [place] [address] [id number] 18 Dec, 2018 Dental examination Z01.20 an d Caries K02.9 [place] [address] [id number] 14 Sep, 2016 Dental examination Z01.20 [place] [address] [place] [id number] [address] [place] [id number] 08 Jan, 2016 Nausea R11.0 ; Irritable bow el syndrome without diarrhea K58.9 and History of renal transplant Z94.0 [place] [address] [id number] 2015 [place] [address] [id number] 11 Dec, 2015 Breast pain N64.4 ; Screenin g breast examination Z12.39 and Mild intermittent asthma without complication J45.20 [place] [address] [id number] 10 Dec, 2015 [place] [address] [id number] 09 Dec, 2015 Kidney transplant status Z94 .0 ; Personal history of immunosupression therapy Z92.25 ; Recurrent UTI N39.0 and Encounter for screening, unspecified Z13.9 [place] [address] [place] [id number] [address] [place] [address] Oct, [place] [address] [place] [id number] [address] [place] [address] Oct, [place] [address] [place] [id number] [address] [place] [address] Oct, [place] [address] [address] Oct, Hiatal hernia K44.9 and Atyp ical chest pain R07.89 [place] [address] [place] [id number] [address] [place] [address] Oct, [place] [address] [id number] [address] [place] [address] Sep, Kidney replaced by transplan t V42.0 and Bilateral low back pain with sciatica, sciatica laterality unspecified M54.40 [facility] [address] [id number] [address] [place] [address] Sep, [facility] [address] [id number] [address] [place] [address] Sep, Kidney replaced by transplan t V42.0 ; Bilateral low back pain with sciatica, sciatica laterality unspecified M54.40 ; Anxiety F41.9 and Primary insomnia F51.01 [facility] [address] [id number] [address] [place] [address] Aug, [facility] [address] [id number] [address] [place] [address] Aug, [facility] [address] [id number] [address] [place] [address] Aug, Kidney transplant status Z94 .0 ; Personal history of immunosupression therapy Z92.25 ; Recurrent urinary tract infection N39.0 and Screening Z13.9 [facility] [address] [id number] [address] [place] [address] Aug, [facility] [address] [id number] [address] [place] [address] Aug, Encounter for aftercare foll owing kidney transplant Z48.22 ; Chronic radicular pain of lower back M54.16 and PND (post-nasal drip) R09.82 [facility] [address] [id number] [address] [place] [address] Jul, [facility] [address] [id number] [address] [place] [address] Jul, [facility] [address] [id number] [address] [place] [address] Jul, [facility] [address] [id number] [address] [place] [address] Jul, Kidney replaced by transplan t V42.0 ; Depressive disorder, not elsewhere classified 311 ; Anxiety state, unspecified 300.00 ; Insomnia, unspecified 780.52 ; Irritable bowel syndrome 564.1 ; Chronic lumbar pain 724.2 and GERD (gastroesophageal reflux disease) 530.81 [facility] [address] [id number] [address] [place] [address] Jul, [facility] [address] [id number] [address] [place] [address] Jun, [facility] [address] [id number] [address] [place] [address] Jun, [facility] [address] [facility] [id number] [address] [place] [address] Jun, [facility] [address] [facility] [id number] [address] [place] [address] Jun, Kidney replaced by transplan t V42.0 [facility] [address] [facility] [id number] [address] [place] [address] May, [facility] [address] [facility] [id number] [address] [place] [address] May, Depression with anxiety 300. 4 and Skin infection 686.9 [facility] [address] [facility] [id number] [address] [place] [address] May, [facility] [address] [id number] [address] [place] [address] May, Kidney replaced by transplan t V42.0 ; Recurrent UTI (urinary tract infection) 599.0 and Absence of menstruation 626.0 [facility] [address] [facility] [id number] [address] [place] [address] May, [facility] [address] [facility] [id number] [address] [place] [address] May, Depression with anxiety 300. 4 [place] [address] [place] [id number] [address] [place] [address] May, [facility] [address] [place] [id number] [address] [place] [address] Apr, [facility] [address] [place] [id number] [address] [place] [address] Apr, [facility] [address] [place] [id number] [address] [place] [address] Apr, Depression, major, recurrent , mild 296.31 [facility] [address] [place] [id number] [address] [place] [address] Apr, Depression, major, recurrent , mild 296.31 [place] [address] [place] [id number] [address] [place] [address] Apr, Cervicalgia 723.1 ; Lumbago 724.2 ; Anxiety state, unspecified 300.00 ; Nausea 787.02 ; 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 ; Recurrent UTI (urinary tract infection) 599.0 and Knee pain, bilateral 719.46 [place] [address] [place] [id number] [address] [place] [address] March, Depression, major, recurrent , mild 296.31 [facility] [address] [place] [id number] [address] [place] [address] March, [facility] [address] [place] [id number] [address] [place] [address] March, [facility] [address] [place] [id number] [address] [place] [address] March, Lumbago 724.2 ; Insomnia, un specified 780.52 ; Depressive disorder, not elsewhere classified 311 ; 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 ; Anxiety 300.00 ; Allergic rhinitis 477.9 and GERD (gastroesophageal reflux disease) 530.81 [facility] [address] [place] [id number] [address] [place] [address] Feb, [facility] [address] [id number] [address] [place] [address], [place] [address] Feb, [facility] [address] [id number] [address] [place] [address], [place] [address] Jan, [facility] [address] [id number] [address] [place] [address], [place] [address] Jan, [facility] [address] [id number] [address] [place] [address], [place] [address] Jan, [facility] [address] [id number] [address] [place] [address], [place] [address] Jan, [facility] [address] [id number] [address] [place] [address], [place] [address] Dec, [facility] [address] [id number] [address] [place] [address], [place] [address] Dec, [facility] [address] [id number] [address] [place] [address], [place] [address] Dec, [facility] [address] [id number] [address] [place] [address], [place] [address] Dec, [facility] [address] [id number] [address] [place] [address], [place] [address] Dec, [facility] [address] [id number] [address] [place] [address], [place] [address] Dec, [facility] [address] [id number] [address] [place] [address], [place] [address] Dec, [facility] [address] [id number] [address] [place] [address], [place] [address] Nov, [facility] [address] [id number] [address] [place] [address], [place] [address] Nov, [facility] [address] [id number] [address] [place] [address], [place] [address] Nov, [facility] [address] [id number] [address] [place] [address] [address] Nov, [facility] [address] [id number] [address] [place] [address], [place] [address] Nov, [facility] [address] [id number] [address] [place] [address], [place] [address] Nov, [facility] [address] [id number] [address] [place] [address], [place] [address] Nov, [facility] [address] [id number] [address] [place] [address], [place] [address] Nov, [facility] [address] [id number] [address] [place] [address], [place] [address] Nov, [facility] [address] [id number] [address] [place] [address], [place] [address] Nov, [facility] [address] [id number] [address] [place] [address], [place] [address] Nov, [facility] [address] [id number] [address] [place] [address], [place] [address] Nov, [facility] [address] [id number] [address] [place] [address], [place] [address] Nov, [facility] [address] [id number] [address] [place] [address], [place] [address] Nov, [facility] [address] [id number] [address] [place] [address], [place] [address] Nov, [facility] [address] [id number] [address] [place] [address], [place] [address] Nov, [facility] [address] [id number] [address] [place] [address], [place] [address] Nov, [facility] [address] [id number] [address] [place] [address], [place] [address] Nov, [facility] [address] [id number] [address] [place] [address], [place] [address] Nov, [facility] [address] [id number] [address] [place] [address], [place] [address] Nov, [facility] [address] [id number] [address] [place] [address], [place] [address] Nov, [facility] [address] [id number] [address] [place] [address], [place] [address] Nov, [facility] [address] [id number] [address] [place] [address], [place] [address] Nov, [facility] [address] [id number] [address] [place] [address], [place] [address] Nov, [facility] [address] [id number] [address] [place] [address], [place] [address] Nov, [facility] [address] [id number] [address] [place] [address], [place] [address] Nov, [facility] [address] [id number] [address] [place] [address], [place] [address] Nov, [facility] [address] [id number] [address] [place] [address], [place] [address] Nov, [facility] [address] [id number] [address] [place] [address], [place] [address] Nov, [facility] [address] [id number] [address] [place] [address], [place] [address] Oct, [facility] [address] [id number] [address] [place] [address], [place] [address] Oct, [facility] [address] [id number] [address] [place] [address], [place] [address] Oct, [facility] [address] [id number] [address] [place] [address], [place] [address] Oct, [facility] [address] [id number] [address] [place] [address], [place] [address] Oct, [facility] [address] [id number] [address] [place] [address], [place] [address] Oct, [facility] [address] [id number] [address] [place] [address], [place] [address] Oct, [facility] [address] [id number] [address] [place] [address], [place] [address] Oct, [facility] [address] [id number] [address] [place] [address], [place] [address] Oct, [facility] [address] [id number] [address] [place] [address], [place] [address] Oct, [facility] [address] [id number] [address] [place] [address], [place] [address] Oct, [facility] [address] [id number] [address] [place] [address], [place] [address] Oct, [facility] [address] [id number] [address] [place] [address], [place] [address] Oct, [facility] [address] [id number] [address] [place] [address], [place] [address] Oct, [facility] [address] [id number] [address] [place] [address], [place] [address] Oct, [facility] [address] [id number] [address] [place] [address], [place] [address] Oct, [facility] [address] [id number] [address] [place] [address], [place] [address] Oct, [facility] [address] [id number] [address] [place] [address], [place] [address] Oct, [facility] [address] [id number] [address] [place] [address], [place] [address] Oct, [facility] [address] [id number] [address] [place] [address], [place] [address] 05 Oct, 2014 [facility] [address] [id number] [address] [place] [address], [place] [address] 05 Oct, 2014 [facility] [address] [id number] [address] [place] [address], [place] [address] Oct, [facility] [address] [id number] [address] [place] [address], [place] [address] Oct, [facility] [address] [id number] [address] [place] [address], [place] [address] Sep, [facility] [address] [id number] [address] [place] [address], [place] [address] Sep, [facility] [address] [id number] [address] [place] [address], [place] [address] Sep, [facility] [address] [id number] [address] [place] [address], [place] [address] Sep, [facility] [address] [id number] [address] [place] [address], [place] [address] Sep, [facility] [address] [id number] [address] [place] [address], [place] [address] Sep, [facility] [address] [id number] [address] [place] [address], [place] [address] Sep, [facility] [address] [id number] [address] [place] [address], [place] [address] Sep, [facility] [address] [id number] [address] [place] [address], [place] [address] Sep, [facility] [address] [id number] [address] [place] [address], [place] [address] Sep, [facility] [address] [id number] [address] [place] [address], [place] [address] Sep, [facility] [address] [id number] [address] [place] [address], [place] [address] Sep, [facility] [address] [id number] [address] [place] [address], [place] [address] Sep, [facility] [address] [id number] [address] [place] [address], [place] [address] Sep, [facility] [address] [id number] [address] [place] [address], [place] [address] Sep, [facility] [address] [id number] [address] [place] [address], [place] [address] Sep, [facility] [address] [id number] [address] [place] [address], [place] [address] Sep, [facility] [address] [id number] [address] [place] [address], [place] [address] Sep, [facility] [address] [id number] [address] [place] [address], [place] [address] Sep, [facility] [address] [id number] [address] [place] [address], [place] [address] Sep, [facility] [address] [id number] [address] [place] [address], [place] [address] Sep, [facility] [address] [id number] [address] [place] [address], [place] [address] Sep, [facility] [address] [id number] [address] [place] [address], [place] [address] Sep, [facility] [address] [id number] [address] [place] [address], [place] [address] Sep, [facility] [address] [id number] [address] [place] [address], [place] [address] Sep, [facility] [address] [id number] [address] [place] [address], [place] [address] Sep, [facility] [address] [id number] [address] [place] [address], [place] [address] Sep, [facility] [address] [id number] [address] [place] [address], [place] [address] Sep, [facility] [address] [id number] [address] [place] [address], [place] [address] Aug, [facility] [address] [id number] [address] [place] [address], [place] [address] Aug, [facility] [address] [id number] [address] [place] [address], [place] [address] Aug, [facility] [address] [id number] [address] [place] [address], [place] [address] Aug, [facility] [address] [id number] [address] [place] [address], [place] [address] Aug, [facility] [address] [id number] [address] [place] [address], [place] [address] Aug, [facility] [address] [id number] [address] [place] [address], [place] [address] Aug, [facility] [address] [id number] [address] [place] [address], [place] [address] Aug, [facility] [address] [id number] [address] [place] [address], [place] [address] Aug, [facility] [address] [id number] [address] [place] [address], [place] [address] Aug, [facility] [address] [id number] [address] [place] [address], [place] [address] Aug, [facility] [address] [id number] [address] [place] [id number] Aug, [facility] [address] [id number] [address] [place] [id number] Aug, [facility] [address] [id number] [address] [place] [id number] Aug, [facility] [address] [id number] [address] [place] [address], [place] [address] Aug, [facility] [address] [id number] [address] [place] [address], [place] [address] Aug, [facility] [address] [id number] [address] [place] [id number] Aug, [facility] [address] [id number] [address] [place] [id number] 17 Aug, 2013 [facility] [address] [id number] [address] [place] [address], [place] [address] 14 Aug, 2013 [facility] [address] [id number] [address] [place] [id number] 14 Aug, 2013 [facility] [address] [id number] [address] [place] [address], [place] [address] 09 Aug, 2013 [facility] [address] [id number] [address] [place] [id number] 09 Aug, 2013 [facility] [address] [id number] [address] [place] [address], [place] [address] Aug, 2013 [facility] [address] [id number] [address] [place] [address], [place] [address] Aug, 2013 [facility] [address] [id number] [address] [place] [id number] 08 Aug, 2013 [facility] [address] [id number] [address] [place] [id number] 07 Aug, 2013 [facility] [address] [id number] [address] [place] [id number] Aug, 2013 [facility] [address] [id number] [address] [place] [id number] Aug, 2013 [facility] [address] [id number] [address] [place] [id number] 07 Aug, 2013 [facility] [address] [id number] [address] [place] [id number] 30 Jul, 2013 [facility] [address] [id number] [address] [place] [id number] 30 Jul, 2013 [facility] [address] [id number] [address] [place] [id number] 29 Jul, 2013 [facility] [address] [id number] [address] [place] [id number] 29 Jul, 2013 [facility] [address] [id number] [facility] [place] [address] 19 Jul, 2013 [facility] [address] [id number] [facility] [place] [address] 19 Jul, 2013 [facility] [address] [id number] [facility] [place] [address] 18 Jul, 2013 [facility] [address] [id number] [facility] [place] [address] 18 Jul, 2013 [facility] [address] [id number] [facility] [place] [address] 17 Jul, 2013 [facility] [address] [id number] [address] [place] [address], [place] [address] 17 Jul, 2013 [facility] [address] [id number] [address] [place] [address], [place] [address] 10 Jul, 2013 [facility] [address] [id number] [address] [place] [address], [place] [address] 10 Jul, 2013 [facility] [address] [id number] [address] [place] [address], [place] [address] Jun, [facility] [address] [id number] [address] [place] [address], [place] [address] Jun, [facility] [address] [id number] [address] [place] [address], [place] [address] Jun, [facility] [address] [id number] [address] [place] [address], [place] [address] Jun, [facility] [address] [id number] [address] [place] [address], [place] [address] Jun, [facility] [address] [id number] [address] [place] [address], [place] [address] Jun, [facility] [address] [id number] [address] [place] [address], [place] [address] Jun, [facility] [address] [id number] [address] [place], [place] [address] [address] Jun, [facility] [address] [id number] [address] [place] [id number] Jun, [facility] [address] [id number] [address] [place] [id number] Jun, [facility] [address] [id number] [address] [place] [id number] Jun, [facility] [address] [id number] [address] [place] [address] Jun, [facility] [address] [id number] [address] [place] [id number] May, [facility] [address] [id number] [address] [place] [id number] May, [facility] [address] [id number] [address] [place] [id number] May, IMMUNIZATIONS No Known Immunizations SOCIAL HISTORY Never Assessed REASON FOR VISIT PLAN OF CARE VITAL SIGNS MEDICATIONS Unknown Medications RESULTS No Results PROCEDURES Procedure Date Ordered Result Body Site COMPREHEN METABOLIC PANEL Nov 13, 2014 VENIPUNCT, ROUTINE* Nov 13, 2014 INSTRUCTIONS MEDICATIONS ADMINISTERED No Known Medications [...]
--- OUTSIDE RECORDS SUMMARY | 2020-05-03 14:33 | XMS REPORT ---
Author Author Tracee AVILA Organization [facility] Address [address] [place] [address] Care Team Providers Care Tin Can Feeder Name Role Phone SARAI AVILA Unavailable PROBLEMS Type Condition ICD9-CM Code DRF20-QQ Code Onset Dates Condition S tatus SNOMED Code Problem Primary insomnia F51.01 Active 397 2004 Problem Breast pain N64.4 Active 88190405 Problem History of renal transplant Z94.0 Ac tive 002766406 Problem Violation of controlled substance agreement Z91.14 Active 938007249 Problem Mild intermittent asthma without complication J45. 20 Active 001542678 Problem Screening breast examination Z12.39 A ctive 079971862 Problem Irritable bowel syndrome without diarrhea K58.9 Active 99263430 Problem Irritable bowel syndrome with diarrhea K58.0 Active 460143026 ALLERGIES No Information ENCOUNTERS Encounter Location Date Diagnosis [facility] [id number] [place] [address] [id number] March, Dental examination Z01.20 [facility] [address] [id number] [address] [place] [address] [id number] Feb, Caries K02.9 [facility] [address] [id number] [address] [place] [address] [id number] Feb, Caries K02.9 [facility] [address] [id number] [address] [place] [address] [id number] Jan, [facility] [address] [id number] [address] [place] [address] [id number] Jan, Caries K02.9 [facility] [address] [id number] [address] [place] [address] [id number] Dec, [facility] [address] [id number] [address] [place] [address] [id number] Dec, 2018 Dental examination Z01.20 an d Caries K02.9 [place] [address] [id number] 14 Sep, 2016 Dental examination Z01.20 [place] [address] [place] [id number] [address] [place] [id number] 08 Jan, 2016 Nausea R11.0 ; Irritable bow el syndrome without diarrhea K58.9 and History of renal transplant Z94.0 [place] [address] [id number] 2015 [place] [address] [address] 11 Dec, 2015 Breast pain N64.4 ; Screenin g breast examination Z12.39 and Mild intermittent asthma without complication J45.20 [place] [address] [id number] 10 Dec, 2015 [place] [address] [id number] 09 Dec, 2015 Kidney transplant status Z94 .0 ; Personal history of immunosupression therapy Z92.25 ; Recurrent UTI N39.0 and Encounter for screening, unspecified Z13.9 [place] [address] [address] [place] [id number] [address] [place] [phone] Oct, [place] [address] [place] [id number] [address] [place] [phone] Oct, [place] [address] [place] [id number] [address] [place] [phone] Oct, [place] [address] [id number] Oct, Hiatal hernia K44.9 and Atyp ical chest pain R07.89 [place] [address] [place] [id number] [address] [place] [phone] Oct, [place] [address] [id number] [address] [place] [phone] Sep, Kidney replaced by transplan t V42.0 and Bilateral low back pain with sciatica, sciatica laterality unspecified M54.40 [facility] [address] [id number] [address] [place] [phone] Sep, [facility] [address] [id number] [address] [place] [address] Sep, Kidney replaced by transplan t V42.0 ; Bilateral low back pain with sciatica, sciatica laterality unspecified M54.40 ; Anxiety F41.9 and Primary insomnia F51.01 [facility] [address] [id number] [address] [place] [phone] Aug, [facility] [address] [id number] [address] [place] [phone] Aug, [facility] [address] [id number] [address] [place] [phone] Aug, Kidney transplant status Z94 .0 ; Personal history of immunosupression therapy Z92.25 ; Recurrent urinary tract infection N39.0 and Screening Z13.9 [facility] [address] [id number] [address] [place] [phone] Aug, [facility] [address] [id number] [address] [place] [phone] Aug, Encounter for aftercare foll owing kidney transplant Z48.22 ; Chronic radicular pain of lower back M54.16 and PND (post-nasal drip) R09.82 [facility] [address] [id number] [address] [place] [phone] Jul, [facility] [address] [id number] [address] [place] [phone] Jul, [facility] [address] [id number] [address] [place] [phone] Jul, [facility] [address] [id number] [address] [place] [phone] Jul, Kidney replaced by transplan t V42.0 ; Depressive disorder, not elsewhere classified 311 ; Anxiety state, unspecified 300.00 ; Insomnia, unspecified 780.52 ; Irritable bowel syndrome 564.1 ; Chronic lumbar pain 724.2 and GERD (gastroesophageal reflux disease) 530.81 [facility] [address] [id number] [address] [place] [phone] Jul, [facility] [address] [id number] [address] [place] [phone] Jun, [facility] [address] [id number] [address] [place] [phone] Jun, [facility] [address] [facility] [id number] [address] [place] [phone] Jun, [facility] [address] [facility] [id number] [address] [place] [phone] Jun, Kidney replaced by transplan t V42.0 [facility] [address] [facility] [id number] [address] [place] [phone] May, [facility] [address] [facility] [id number] [address] [place] [phone] May, Depression with anxiety 300. 4 and Skin infection 686.9 [facility] [address] [facility] [id number] [address] [place] [phone] May, [facility] [address] [id number] [address] [place] [phone] May, Kidney replaced by transplan t V42.0 ; Recurrent UTI (urinary tract infection) 599.0 and Absence of menstruation 626.0 [facility] [address] [facility] [id number] [address] [place] [id number] May, [facility] [address] [facility] [id number] [address] [place] [address] May, Depression with anxiety 300. 4 [place] [address] [place] [id number] [address] [place] [id number] May, [facility] [address] [place] [id number] [address] [place] [phone] Apr, [facility] [address] [place] [id number] [address] [place] [phone] Apr, [facility] [address] [place] [id number] [address] [place] [phone] Apr, Depression, major, recurrent , mild 296.31 [facility] [address] [place] [id number] [address] [place] [id number] Apr, Depression, major, recurrent , mild 296.31 [place] [address] [place] [id number] [address] [place] [address] Apr, Cervicalgia 723.1 ; Lumbago 724.2 ; Anxiety state, unspecified 300.00 ; Nausea 787.02 ; 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 ; Recurrent UTI (urinary tract infection) 599.0 and Knee pain, bilateral 719.46 [place] [address] [address] [place] [id number] [address] [place] [id number] March, Depression, major, recurrent , mild 296.31 [facility] [address] [place] [id number] [address] [place] [phone] March, [facility] [address] [place] [id number] [address] [place] [phone] March, [facility] [address] [place] [id number] [address] [place] [phone] March, Lumbago 724.2 ; Insomnia, un specified 780.52 ; Depressive disorder, not elsewhere classified 311 ; 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 ; Anxiety 300.00 ; Allergic rhinitis 477.9 and GERD (gastroesophageal reflux disease) 530.81 [facility] [address] [place] [id number] [address] [place] [phone] Feb, [facility] [address] [id number] [address] [place] [address], [place] [address] Feb, [facility] [address] [id number] [address] [place] [address], [place] [address] Jan, [facility] [address] [id number] [address] [place] [address], [place] [address] Jan, [facility] [address] [id number] [address] [place] [address], [place] [address] Jan, [facility] [address] [id number] [address] [place] [address], [place] [address] Jan, [facility] [address] [id number] [address] [place] [address], [place] [address] Dec, [facility] [address] [id number] [address] [place] [address], [place] [address] Dec, [facility] [address] [id number] [address] [place] [address], [place] [address] Dec, [facility] [address] [id number] [address] [place] [address], [place] [address] Dec, [facility] [address] [id number] [address] [place] [address], [place] [address] Dec, [facility] [address] [id number] [address] [place] [address], [place] [address] Dec, [facility] [address] [id number] [address] [place] [address], [place] [address] Dec, [facility] [address] [id number] [address] [place] [address], [place] [address] Nov, [facility] [address] [id number] [address] [place] [address], [place] [address] Nov, [facility] [address] [id number] [address] [place] [address], [place] [address] Nov, [facility] [address] [id number] [address] [place] [address] [address] Nov, [facility] [address] [id number] [address] [place] [address], [place] [address] Nov, [facility] [address] [id number] [address] [place] [address], [place] [address] Nov, [facility] [address] [id number] [address] [place] [address], [place] [address] Nov, [facility] [address] [id number] [address] [place] [address], [place] [address] Nov, [facility] [address] [id number] [address] [place] [address], [place] [address] Nov, [facility] [address] [id number] [address] [place] [address], [place] [address] Nov, [facility] [address] [id number] [address] [place] [address], [place] [address] Nov, [facility] [address] [id number] [address] [place] [address], [place] [address] Nov, [facility] [address] [id number] [address] [place] [address], [place] [address] Nov, [facility] [address] [id number] [address] [place] [address], [place] [address] Nov, [facility] [address] [id number] [address] [place] [address], [place] [address] Nov, [facility] [address] [id number] [address] [place] [address], [place] [address] Nov, [facility] [address] [id number] [address] [place] [address], [place] [address] Nov, [facility] [address] [id number] [address] [place] [address], [place] [address] Nov, [facility] [address] [id number] [address] [place] [address], [place] [address] Nov, [facility] [address] [id number] [address] [place] [address], [place] [address] Nov, [facility] [address] [id number] [address] [place] [address], [place] [address] Nov, [facility] [address] [id number] [address] [place] [address], [place] [address] Nov, [facility] [address] [id number] [address] [place] [address], [place] [address] Nov, [facility] [address] [id number] [address] [place] [address], [place] [address] Nov, [facility] [address] [id number] [address] [place] [address], [place] [address] Nov, [facility] [address] [id number] [address] [place] [address], [place] [address] Nov, [facility] [address] [id number] [address] [place] [address], [place] [address] Nov, [facility] [address] [id number] [address] [place] [address], [place] [address] Nov, [facility] [address] [id number] [address] [place] [address], [place] [address] Nov, [facility] [address] [id number] [address] [place] [address], [place] [address] Oct, [facility] [address] [id number] [address] [place] [address], [place] [address] Oct, [facility] [address] [id number] [address] [place] [address], [place] [address] Oct, [facility] [address] [id number] [address] [place] [address], [place] [address] Oct, [facility] [address] [id number] [address] [place] [address], [place] [address] Oct, [facility] [address] [id number] [address] [place] [address], [place] [address] Oct, [facility] [address] [id number] [address] [place] [address], [place] [address] Oct, [facility] [address] [id number] [address] [place] [address], [place] [address] Oct, [facility] [address] [id number] [address] [place] [address], [place] [address] Oct, [facility] [address] [id number] [address] [place] [address], [place] [address] Oct, [facility] [address] [id number] [address] [place] [address], [place] [address] Oct, [facility] [address] [id number] [address] [place] [address], [place] [address] Oct, [facility] [address] [id number] [address] [place] [address], [place] [address] Oct, [facility] [address] [id number] [address] [place] [address], [place] [address] Oct, [facility] [address] [id number] [address] [place] [address], [place] [address] Oct, [facility] [address] [id number] [address] [place] [address], [place] [address] Oct, [facility] [address] [id number] [address] [place] [address], [place] [address] Oct, [facility] [address] [id number] [address] [place] [address], [place] [address] Oct, [facility] [address] [id number] [address] [place] [address], [place] [address] Oct, [facility] [address] [id number] [address] [place] [address], [place] [address] 05 Oct, 2014 [facility] [address] [id number] [address] [place] [address], [place] [address] 05 Oct, 2014 [facility] [address] [id number] [address] [place] [address], [place] [address] Oct, [facility] [address] [id number] [address] [place] [address], [place] [address] Oct, [facility] [address] [id number] [address] [place] [address], [place] [address] Sep, [facility] [address] [id number] [address] [place] [address], [place] [address] Sep, [facility] [address] [id number] [address] [place] [address], [place] [address] Sep, [facility] [address] [id number] [address] [place] [address], [place] [address] Sep, [facility] [address] [id number] [address] [place] [address], [place] [address] Sep, [facility] [address] [id number] [address] [place] [address], [place] [address] Sep, [facility] [address] [id number] [address] [place] [address], [place] [address] Sep, [facility] [address] [id number] [address] [place] [address], [place] [address] Sep, [facility] [address] [id number] [address] [place] [address], [place] [address] Sep, [facility] [address] [id number] [address] [place] [address], [place] [address] Sep, [facility] [address] [id number] [address] [place] [address], [place] [address] Sep, [facility] [address] [id number] [address] [place] [address], [place] [address] Sep, [facility] [address] [id number] [address] [place] [address], [place] [address] Sep, [facility] [address] [id number] [address] [place] [address], [place] [address] Sep, [facility] [address] [id number] [address] [place] [address], [place] [address] Sep, [facility] [address] [id number] [address] [place] [address], [place] [address] Sep, [facility] [address] [id number] [address] [place] [address], [place] [address] Sep, [facility] [address] [id number] [address] [place] [address], [place] [address] Sep, [facility] [address] [id number] [address] [place] [address], [place] [address] Sep, [facility] [address] [id number] [address] [place] [address], [place] [address] Sep, [facility] [address] [id number] [address] [place] [address], [place] [address] Sep, [facility] [address] [id number] [address] [place] [address], [place] [address] Sep, [facility] [address] [id number] [address] [place] [address], [place] [address] Sep, [facility] [address] [id number] [address] [place] [address], [place] [address] Sep, [facility] [address] [id number] [address] [place] [address], [place] [address] Sep, [facility] [address] [id number] [address] [place] [address], [place] [address] Sep, [facility] [address] [id number] [address] [place] [address], [place] [address] Sep, [facility] [address] [id number] [address] [place] [address], [place] [address] Sep, [facility] [address] [id number] [address] [place] [address], [place] [address] Aug, [facility] [address] [id number] [address] [place] [address], [place] [address] Aug, [facility] [address] [id number] [address] [place] [address], [place] [address] Aug, [facility] [address] [id number] [address] [place] [address], [place] [address] Aug, [facility] [address] [id number] [address] [place] [address], [place] [address] Aug, [facility] [address] [id number] [address] [place] [address], [place] [address] Aug, [facility] [address] [id number] [address] [place] [address], [place] [address] Aug, [facility] [address] [id number] [address] [place] [address], [place] [address] Aug, [facility] [address] [id number] [address] [place] [address], [place] [address] Aug, [facility] [address] [id number] [address] [place] [address], [place] [address] Aug, [facility] [address] [id number] [address] [place] [address], [place] [address] Aug, [facility] [address] [id number] [address] [place] [id number] Aug, [facility] [address] [id number] [address] [place] [id number] Aug, [facility] [address] [id number] [address] [place] [id number] Aug, [facility] [address] [id number] [address] [place] [address], [place] [address] Aug, [facility] [address] [id number] [address] [place] [address], [place] [address] Aug, [facility] [address] [id number] [address] [place] [id number] Aug, [facility] [address] [id number] [address] [place] [id number] 17 Aug, 2013 [facility] [address] [id number] [address] [place] [address], [place] [address] 14 Aug, 2013 [facility] [address] [id number] [address] [place] [id number] 14 Aug, 2013 [facility] [address] [id number] [address] [place] [address], [place] [address] 09 Aug, 2013 [facility] [address] [id number] [address] [place] [id number] 09 Aug, 2013 [facility] [address] [id number] [address] [place] [address], [place] [address] Aug, 2013 [facility] [address] [id number] [address] [place] [address], [place] [address] Aug, 2013 [facility] [address] [id number] [address] [place] [id number] 08 Aug, 2013 [facility] [address] [id number] [address] [place] [phone] 07 Aug, 2013 [facility] [address] [id number] [address] [place] [id number] Aug, 2013 [facility] [address] [id number] [address] [place] [id number] Aug, 2013 [facility] [address] [id number] [address] [place] [id number] 07 Aug, 2013 [facility] [address] [id number] [address] [place] [id number] 30 Jul, 2013 [facility] [address] [id number] [address] [place] [id number] 30 Jul, 2013 [facility] [address] [id number] [address] [place] [id number] 29 Jul, 2013 [facility] [address] [id number] [address] [place] [id number] 29 Jul, 2013 [facility] [address] [id number] [facility] [place] [address] 19 Jul, 2013 [facility] [address] [id number] [facility] [place] [address] 19 Jul, 2013 [facility] [address] [id number] [facility] [place] [address] 18 Jul, 2013 [facility] [address] [id number] [facility] [place] [address] 18 Jul, 2013 [facility] [address] [id number] [facility] [place] [address] 17 Jul, 2013 [facility] [address] [id number] [address] [place] [address], [place] [address] 17 Jul, 2013 [facility] [address] [id number] [address] [place] [address], [place] [address] 10 Jul, 2013 [facility] [address] [id number] [address] [place] [address], [place] [address] 10 Jul, 2013 [facility] [address] [id number] [address] [place] [address], [place] [address] Jun, [facility] [address] [id number] [address] [place] [address], [place] [address] Jun, [facility] [address] [id number] [address] [place] [address], [place] [address] Jun, [facility] [address] [id number] [address] [place] [address], [place] [address] Jun, [facility] [address] [id number] [address] [place] [address], [place] [address] Jun, [facility] [address] [id number] [address] [place] [address], [place] [address] Jun, [facility] [address] [id number] [address] [place] [address], [place] [address] Jun, [facility] [address] [id number] [address] [place], [place] [address] [address] Jun, [facility] [address] [id number] [address] [place] [id number] Jun, [facility] [address] [id number] [address] [place] [id number] Jun, [facility] [address] [id number] [address] [place] [id number] Jun, [facility] [address] [id number] [address] [place] [id number] Jun, [facility] [address] [id number] [address] [place] [id number] May, [facility] [address] [id number] [address] [place] [id number] May, [facility] [address] [facility] [id number] [address] [place] [id number] May, IMMUNIZATIONS No Known Immunizations SOCIAL HISTORY [...]
--- OUTSIDE RECORDS SUMMARY | 2020-05-03 14:33 | XMS REPORT ---
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 20 Active 739439060 Problem Screening breast examination Z12.39 A ctive 976818553 Problem Irritable bowel syndrome without diarrhea K58.9 Active 75385827 Problem Irritable bowel syndrome with diarrhea K58.0 Active [id number] ALLERGIES No Information ENCOUNTERS Encounter Location Date Diagnosis [facility] [id number] [place] [address] [id number] March, Dental examination Z01.20 [facility] [address] [id number] [address] [place] [address] [id number] Feb, Caries K02.9 [facility] [address] [id number] [address] [place] [address] [id number] Feb, Caries K02.9 [facility] [address] [id number] [address] [place] [address] [id number] Jan, [facility] [address] [id number] [address] [place] [address] [id number] Jan, Caries K02.9 [facility] [address] [id number] [address] [place] [address] [id number] Dec, [facility] [address] [id number] [address] [place] [address] [id number] Dec, 2018 Dental examination Z01.20 an d Caries K02.9 [place] [address] [id number] 14 Sep, 2016 Dental examination Z01.20 [place] [address] [place] [id number] [address] [place] [id number] 08 Jan, 2016 Nausea R11.0 ; Irritable bow el syndrome without diarrhea K58.9 and History of renal transplant Z94.0 [place] [address] [id number] 2015 [place] [address] [id number] 11 Dec, 2015 Breast pain N64.4 ; Screenin g breast examination Z12.39 and Mild intermittent asthma without complication J45.20 [place] [address] [id number] 10 Dec, 2015 [place] [address] [id number] 09 Dec, 2015 Kidney transplant status Z94 .0 ; Personal history of immunosupression therapy Z92.25 ; Recurrent UTI N39.0 and Encounter for screening, unspecified Z13.9 [place] [address] [place] [id number] [address] [place] [phone] Oct, [place] [address] [place] [id number] [address] [place] [phone] Oct, [place] [address] [place] [id number] [address] [place] [phone] Oct, [place] [address] [id number] Oct, Hiatal hernia K44.9 and Atyp ical chest pain R07.89 [place] [address] [place] [id number] [address] [place] [address] Oct, [place] [address] [id number] [address] [place] [phone] Sep, Kidney replaced by transplan t V42.0 and Bilateral low back pain with sciatica, sciatica laterality unspecified M54.40 [facility] [address] [id number] [address] [place] [id number] Sep, [facility] [address] [id number] [address] [place] [address] Sep, Kidney replaced by transplan t V42.0 ; Bilateral low back pain with sciatica, sciatica laterality unspecified M54.40 ; Anxiety F41.9 and Primary insomnia F51.01 [facility] [address] [id number] [address] [place] [address] Aug, [facility] [address] [id number] [address] [place] [id number] Aug, [facility] [address] [id number] [address] [place] [address] Aug, Kidney transplant status Z94 .0 ; Personal history of immunosupression therapy Z92.25 ; Recurrent urinary tract infection N39.0 and Screening Z13.9 [facility] [address] [id number] [address] [place] [id number] Aug, [facility] [address] [id number] [address] [place] [id number] Aug, Encounter for aftercare foll owing kidney transplant Z48.22 ; Chronic radicular pain of lower back M54.16 and PND (post-nasal drip) R09.82 [facility] [address] [id number] [address] [place] [phone] Jul, [facility] [address] [id number] [address] [place] [id number] Jul, [facility] [address] [id number] [address] [place] [id number] Jul, [facility] [address] [id number] [address] [place] [address] Jul, Kidney replaced by transplan t V42.0 ; Depressive disorder, not elsewhere classified 311 ; Anxiety state, unspecified 300.00 ; Insomnia, unspecified 780.52 ; Irritable bowel syndrome 564.1 ; Chronic lumbar pain 724.2 and GERD (gastroesophageal reflux disease) 530.81 [facility] [address] [id number] [address] [place] [address] Jul, [facility] [address] [id number] [address] [place] [address] Jun, [facility] [address] [id number] [address] [place] [address] Jun, [facility] [address] [facility] [id number] [address] [place] [address] Jun, [facility] [address] [facility] [id number] [address] [place] [address] Jun, Kidney replaced by transplan t V42.0 [facility] [address] [facility] [id number] [address] [place] [id number] May, [facility] [address] [facility] [id number] [address] [place] [address] May, Depression with anxiety 300. 4 and Skin infection 686.9 [facility] [address] [facility] [id number] [address] [place] [address] May, [facility] [address] [id number] [address] [place] [address] May, Kidney replaced by transplan t V42.0 ; Recurrent UTI (urinary tract infection) 599.0 and Absence of menstruation 626.0 [facility] [address] [facility] [id number] [address] [place] [address] May, [facility] [address] [facility] [id number] [address] [place] [address] May, Depression with anxiety 300. 4 [place] [address] [place] [id number] [address] [place] [id number] May, [facility] [address] [place] [id number] [address] [place] [address] Apr, [facility] [address] [place] [id number] [address] [place] [address] Apr, [facility] [address] [place] [id number] [address] [place] [address] Apr, Depression, major, recurrent , mild 296.31 [facility] [address] [place] [id number] [address] [place] [address] Apr, Depression, major, recurrent , mild 296.31 [place] [address] [place] [id number] [address] [place] [address] Apr, Cervicalgia 723.1 ; Lumbago 724.2 ; Anxiety state, unspecified 300.00 ; Nausea 787.02 ; 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 ; Recurrent UTI (urinary tract infection) 599.0 and Knee pain, bilateral 719.46 [place] [address] [place] [id number] [address] [place] [address] March, Depression, major, recurrent , mild 296.31 [facility] [address] [place] [id number] [address] [place] [address] March, [facility] [address] [place] [id number] [address] [place] [address] March, [facility] [address] [place] [id number] [address] [place] [address] March, Lumbago 724.2 ; Insomnia, un specified 780.52 ; Depressive disorder, not elsewhere classified 311 ; 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 ; Anxiety 300.00 ; Allergic rhinitis 477.9 and GERD (gastroesophageal reflux disease) 530.81 [facility] [address] [place] [id number] [address] [place] [address] Feb, [facility] [address] [id number] [address] [place] [address], [place] [address] Feb, [facility] [address] [id number] [address] [place] [address], [place] [address] Jan, [facility] [address] [id number] [address] [place] [address], [place] [address] Jan, [facility] [address] [id number] [address] [place] [address], [place] [address] Jan, [facility] [address] [id number] [address] [place] [address], [place] [address] Jan, [facility] [address] [id number] [address] [place] [address], [place] [address] Dec, [facility] [address] [id number] [address] [place] [address], [place] [address] Dec, [facility] [address] [id number] [address] [place] [address], [place] [address] Dec, [facility] [address] [id number] [address] [place] [address], [place] [address] Dec, [facility] [address] [id number] [address] [place] [address], [place] [address] Dec, [facility] [address] [id number] [address] [place] [address], [place] [address] Dec, [facility] [address] [id number] [address] [place] [address], [place] [address] Dec, [facility] [address] [id number] [address] [place] [address], [place] [address] Nov, [facility] [address] [id number] [address] [place] [address], [place] [address] Nov, [facility] [address] [id number] [address] [place] [address], [place] [address] Nov, [facility] [address] [id number] [address] [place] [address] [address] Nov, [facility] [address] [id number] [address] [place] [address], [place] [address] Nov, [facility] [address] [id number] [address] [place] [address], [place] [address] Nov, [facility] [address] [id number] [address] [place] [address], [place] [address] Nov, [facility] [address] [id number] [address] [place] [address], [place] [address] Nov, [facility] [address] [id number] [address] [place] [address], [place] [address] Nov, [facility] [address] [id number] [address] [place] [address], [place] [address] Nov, [facility] [address] [id number] [address] [place] [address], [place] [address] Nov, [facility] [address] [id number] [address] [place] [address], [place] [address] Nov, [facility] [address] [id number] [address] [place] [address], [place] [address] Nov, [facility] [address] [id number] [address] [place] [address], [place] [address] Nov, [facility] [address] [id number] [address] [place] [address], [place] [address] Nov, [facility] [address] [id number] [address] [place] [address], [place] [address] Nov, [facility] [address] [id number] [address] [place] [address], [place] [address] Nov, [facility] [address] [id number] [address] [place] [address], [place] [address] Nov, [facility] [address] [id number] [address] [place] [address], [place] [address] Nov, [facility] [address] [id number] [address] [place] [address], [place] [address] Nov, [facility] [address] [id number] [address] [place] [address], [place] [address] Nov, [facility] [address] [id number] [address] [place] [address], [place] [address] Nov, [facility] [address] [id number] [address] [place] [address], [place] [address] Nov, [facility] [address] [id number] [address] [place] [address], [place] [address] Nov, [facility] [address] [id number] [address] [place] [address], [place] [address] Nov, [facility] [address] [id number] [address] [place] [address], [place] [address] Nov, [facility] [address] [id number] [address] [place] [address], [place] [address] Nov, [facility] [address] [id number] [address] [place] [address], [place] [address] Nov, [facility] [address] [id number] [address] [place] [address], [place] [address] Nov, [facility] [address] [id number] [address] [place] [address], [place] [address] Oct, [facility] [address] [id number] [address] [place] [address], [place] [address] Oct, [facility] [address] [id number] [address] [place] [address], [place] [address] Oct, [facility] [address] [id number] [address] [place] [address], [place] [address] Oct, [facility] [address] [id number] [address] [place] [address], [place] [address] Oct, [facility] [address] [id number] [address] [place] [address], [place] [address] Oct, [facility] [address] [id number] [address] [place] [address], [place] [address] Oct, [facility] [address] [id number] [address] [place] [address], [place] [address] Oct, [facility] [address] [id number] [address] [place] [address], [place] [address] Oct, [facility] [address] [id number] [address] [place] [address], [place] [address] Oct, [facility] [address] [id number] [address] [place] [address], [place] [address] Oct, [facility] [address] [id number] [address] [place] [address], [place] [address] Oct, [facility] [address] [id number] [address] [place] [address], [place] [address] Oct, [facility] [address] [id number] [address] [place] [address], [place] [address] Oct, [facility] [address] [id number] [address] [place] [address], [place] [address] Oct, [facility] [address] [id number] [address] [place] [address], [place] [address] Oct, [facility] [address] [id number] [address] [place] [address], [place] [address] Oct, [facility] [address] [id number] [address] [place] [address], [place] [address] Oct, [facility] [address] [id number] [address] [place] [address], [place] [address] Oct, [facility] [address] [id number] [address] [place] [address], [place] [address] 05 Oct, 2014 [facility] [address] [id number] [address] [place] [address], [place] [address] 05 Oct, 2014 [facility] [address] [id number] [address] [place] [address], [place] [address] Oct, [facility] [address] [id number] [address] [place] [address], [place] [address] Oct, [facility] [address] [id number] [address] [place] [address], [place] [address] Sep, [facility] [address] [id number] [address] [place] [address], [place] [address] Sep, [facility] [address] [id number] [address] [place] [address], [place] [address] Sep, [facility] [address] [id number] [address] [place] [address], [place] [address] Sep, [facility] [address] [id number] [address] [place] [address], [place] [address] Sep, [facility] [address] [id number] [address] [place] [address], [place] [address] Sep, [facility] [address] [id number] [address] [place] [address], [place] [address] Sep, [facility] [address] [id number] [address] [place] [address], [place] [address] Sep, [facility] [address] [id number] [address] [place] [address], [place] [address] Sep, [facility] [address] [id number] [address] [place] [address], [place] [address] Sep, [facility] [address] [id number] [address] [place] [address], [place] [address] Sep, [facility] [address] [id number] [address] [place] [address], [place] [address] Sep, [facility] [address] [id number] [address] [place] [address], [place] [address] Sep, [facility] [address] [id number] [address] [place] [address], [place] [address] Sep, [facility] [address] [id number] [address] [place] [address], [place] [address] Sep, [facility] [address] [id number] [address] [place] [address], [place] [address] Sep, [facility] [address] [id number] [address] [place] [address], [place] [address] Sep, [facility] [address] [id number] [address] [place] [address], [place] [address] Sep, [facility] [address] [id number] [address] [place] [address], [place] [address] Sep, [facility] [address] [id number] [address] [place] [address], [place] [address] Sep, [facility] [address] [id number] [address] [place] [address], [place] [address] Sep, [facility] [address] [id number] [address] [place] [address], [place] [address] Sep, [facility] [address] [id number] [address] [place] [address], [place] [address] Sep, [facility] [address] [id number] [address] [place] [address], [place] [address] Sep, [facility] [address] [id number] [address] [place] [address], [place] [address] Sep, [facility] [address] [id number] [address] [place] [address], [place] [address] Sep, [facility] [address] [id number] [address] [place] [address], [place] [address] Sep, [facility] [address] [id number] [address] [place] [address], [place] [address] Sep, [facility] [address] [id number] [address] [place] [address], [place] [address] Aug, [facility] [address] [id number] [address] [place] [address], [place] [address] Aug, [facility] [address] [id number] [address] [place] [address], [place] [address] Aug, [facility] [address] [id number] [address] [place] [address], [place] [address] Aug, [facility] [address] [id number] [address] [place] [address], [place] [address] Aug, [facility] [address] [id number] [address] [place] [address], [place] [address] Aug, [facility] [address] [id number] [address] [place] [address], [place] [address] Aug, [facility] [address] [id number] [address] [place] [address], [place] [address] Aug, [facility] [address] [id number] [address] [place] [address], [place] [address] Aug, [facility] [address] [id number] [address] [place] [address], [place] [address] Aug, [facility] [address] [id number] [address] [place] [address], [place] [address] Aug, [facility] [address] [id number] [address] [place] [id number] Aug, [facility] [address] [id number] [address] [place] [id number] Aug, [facility] [address] [id number] [address] [place] [id number] Aug, [facility] [address] [id number] [address] [place] [address], [place] [address] Aug, [facility] [address] [id number] [address] [place] [address], [place] [address] Aug, [facility] [address] [id number] [address] [place] [id number] Aug, [facility] [address] [id number] [address] [place] [id number] 17 Aug, 2013 [facility] [address] [id number] [address] [place] [address], [place] [address] 14 Aug, 2013 [facility] [address] [id number] [address] [place] [id number] 14 Aug, 2013 [facility] [address] [id number] [address] [place] [address], [place] [address] 09 Aug, 2013 [facility] [address] [id number] [address] [place] [id number] 09 Aug, 2013 [facility] [address] [id number] [address] [place] [address], [place] [address] Aug, 2013 [facility] [address] [id number] [address] [place] [address], [place] [address] Aug, 2013 [facility] [address] [id number] [address] [place] [id number] 08 Aug, 2013 [facility] [address] [id number] [address] [place] [id number] 07 Aug, 2013 [facility] [address] [id number] [address] [place] [id number] Aug, 2013 [facility] [address] [id number] [address] [place] [id number] Aug, 2013 [facility] [address] [id number] [address] [place] [id number] 07 Aug, 2013 [facility] [address] [id number] [address] [place] [id number] 30 Jul, 2013 [facility] [address] [id number] [address] [place] [id number] 30 Jul, 2013 [facility] [address] [id number] [address] [place] [id number] 29 Jul, 2013 [facility] [address] [id number] [address] [place] [id number] 29 Jul, 2013 [facility] [address] [id number] [address] [address] 19 Jul, 2013 [facility] [address] [id number] [address] [address] 19 Jul, 2013 [facility] [address] [id number] [address] [address] 18 Jul, 2013 [facility] [address] [id number] [address] [address] 18 Jul, 2013 [facility] [address] [id number] [address] [address] 17 Jul, 2013 [facility] [address] [id number] [address] [place] [address], [place] [address] 17 Jul, 2013 [facility] [address] [id number] [address] [place] [address], [place] [address] 10 Jul, 2013 [facility] [address] [id number] [address] [place] [address], [place] [id number] 10 Jul, 2013 [facility] [address] [id number] [address] [place] [address], [place] [address] Jun, [facility] [address] [id number] [address] [place] [address], [place] [address] Jun, [facility] [address] [id number] [address] [place] [address], [place] [address] Jun, [facility] [address] [id number] [address] [place] [address], [place] [address] Jun, [facility] [address] [id number] [address] [place] [address], [place] [id number] Jun, [facility] [address] [id number] [address] [place] [address], [place] [id number] Jun, [facility] [address] [id number] [address] [place] [address], [place] [id number] Jun, [facility] [address] [id number] [address] [place], [place] [address] [address] Jun, [facility] [address] [id number] [address] [place] [id number] Jun, [facility] [address] [id number] [address] [place] [id number] Jun, [facility] [address] [id number] [address] [place] [id number] Jun, [facility] [address] [id number] [address] [place] [id number] Jun, [facility] [address] [id number] [address] [place] [id number] May, [facility] [address] [id number] [address] [place] [id number] May, [facility] [address] [facility] [id number] [address] [place] [id number] May, IMMUNIZATIONS No Known Immunizations SOCIAL HISTORY [...]
--- OUTSIDE RECORDS SUMMARY | 2020-05-03 14:33 | XMS REPORT ---
Author Author Tracee KHALIL Organization [facility] Address [address] [place] [address] Care Team Providers Care Teletype Or Varitype Keyboard Operator Name Role Phone SAAD KHALIL Unavailable PROBLEMS Type Condition ICD9-CM Code [id number] Code Onset Dates Condition S tatus SNOMED Code Problem Primary insomnia F51.01 Active 397 2004 Problem Breast pain N64.4 Active 83070211 Problem History of renal transplant Z94.0 Ac tive 856639502 Problem Violation of controlled substance agreement Z91.14 Active 464617992 Problem Mild intermittent asthma without complication J45. 20 Active 366663113 Problem Screening breast examination Z12.39 A ctive 689684372 Problem Irritable bowel syndrome without diarrhea K58.9 Active 24236887 Problem Irritable bowel syndrome with diarrhea K58.0 Active 992104114 ALLERGIES No Information ENCOUNTERS Encounter Location Date Diagnosis [facility] [address] [id number] [address] [place] [address] [id number] March, Dental examination Z01.20 [facility] [address] [id number] [address] [place] [address] [id number] Feb, Caries K02.9 [facility] [address] [id number] [address] [place] [address] [id number] Feb, Caries K02.9 [facility] [address] [id number] [address] [place] [address] [id number] Jan, [facility] [address] [id number] [address] [place] [address] [id number] Jan, Caries K02.9 [facility] [address] [id number] [address] [place] [address] [id number] Dec, [facility] [address] [id number] [address] [place] [address] [id number] 18 Dec, 2018 Dental examination Z01.20 an d Caries K02.9 [place] [address] [address] [facility] [id number] [address] [place] [id number] 14 Sep, 2016 Dental examination Z01.20 [place] [address] [address] [facility] [id number] [address] [place] [id number] 08 Jan, 2016 Nausea R11.0 ; Irritable bow el syndrome without diarrhea K58.9 and History of renal transplant Z94.0 [place] [address] [address] [place] [id number] [place] [id number] 2015 [place] [address] [id number] 11 Dec, 2015 Breast pain N64.4 ; Screenin g breast examination Z12.39 and Mild intermittent asthma without complication J45.20 [place] [address] [id number] 10 Dec, 2015 [place] [address] [id number] 09 Dec, 2015 Kidney transplant status Z94 .0 ; Personal history of immunosupression therapy Z92.25 ; Recurrent UTI N39.0 and Encounter for screening, unspecified Z13.9 [place] [address] [address] [place] [id number] [address] [place] [phone] Oct, [place] [address] [address] [place] [id number] [address] [place] [phone] Oct, [place] [address] [address] [place] [id number] [address] [place] [id number] Oct, [place] [address] [address] Oct, Hiatal hernia K44.9 and Atyp ical chest pain R07.89 [place] [address] [address] [place] [id number] [address] [place] [id number] Oct, [place] [address] [address] [place] [id number] [place] [id number] Sep, Kidney replaced by transplan t V42.0 and Bilateral low back pain with sciatica, sciatica laterality unspecified M54.40 [facility] [address] [id number] [address] [place] [id number] Sep, [facility] [address] [id number] [address] [place] [id number] Sep, Kidney replaced by transplan t V42.0 ; Bilateral low back pain with sciatica, sciatica laterality unspecified M54.40 ; Anxiety F41.9 and Primary insomnia F51.01 [facility] [address] [id number] [address] [place] [id number] Aug, [facility] [address] [id number] [address] [place] [id number] Aug, [facility] [address] [facility] [id number] [address] [place] [id number] Aug, Kidney transplant status Z94 .0 ; Personal history of immunosupression therapy Z92.25 ; Recurrent urinary tract infection N39.0 and Screening Z13.9 [facility] [address] [id number] [address] [place] [id number] Aug, [facility] [address] [facility] [id number] [address] [place] [id number] Aug, Encounter for aftercare foll owing kidney transplant Z48.22 ; Chronic radicular pain of lower back M54.16 and PND (post-nasal drip) R09.82 [facility] [address] [id number] [address] [place] [phone] Jul, [facility] [address] [id number] [address] [place] [id number] Jul, [facility] [address] [id number] [address] [place] [id number] Jul, [facility] [address] [id number] [address] [place] [id number] Jul, Kidney replaced by transplan t V42.0 ; Depressive disorder, not elsewhere classified 311 ; Anxiety state, unspecified 300.00 ; Insomnia, unspecified 780.52 ; Irritable bowel syndrome 564.1 ; Chronic lumbar pain 724.2 and GERD (gastroesophageal reflux disease) 530.81 [facility] [address] [id number] [address] [place] [address] Jul, [facility] [address] [id number] [address] [place] [id number] Jun, [facility] [address] [id number] [address] [place] [address] Jun, [facility] [address] [id number] [address] [place] [phone] Jun, [facility] [address] [id number] [address] [place] [phone] Jun, Kidney replaced by transplan t V42.0 [facility] [address] [id number] [address] [place] [id number] May, [facility] [address] [id number] [address] [place] [id number] May, Depression with anxiety 300. 4 and Skin infection 686.9 [place] [address] [address] [facility] [id number] [address] [place] [id number] May, [facility] [address] [id number] [address] [place] [phone] May, Kidney replaced by transplan t V42.0 ; Recurrent UTI (urinary tract infection) 599.0 and Absence of menstruation 626.0 [place] [address] [address] [facility] [id number] [address] [place] [id number] May, [facility] [address] [facility] [id number] [address] [place] [id number] May, Depression with anxiety 300. 4 [place] [address] [address] [place] [id number] [address] [place] [id number] May, [facility] [address] [place] [id number] [address] [place] [phone] Apr, [facility] [address] [place] [id number] [address] [place] [address] Apr, [place] [address] [address] Apr, Depression, major, recurrent , mild 296.31 [place] [address] [address] Apr, Depression, major, recurrent , mild 296.31 [place] [address] [id number] Apr, Cervicalgia 723.1 ; Lumbago 724.2 ; Anxiety state, unspecified 300.00 ; Nausea 787.02 ; 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 ; Recurrent UTI (urinary tract infection) 599.0 and Knee pain, bilateral 719.46 [place] [address] [address] March, Depression, major, recurrent , mild 296.31 [place] [address] [address] [place] [id number] [address] [place] [address] March, [place] [address] [address] [place] [id number] [address] [place] [address] March, [place] [address] [address] [place] [id number] [place] [address] March, Lumbago 724.2 ; Insomnia, un specified 780.52 ; Depressive disorder, not elsewhere classified 311 ; 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 ; Anxiety 300.00 ; Allergic rhinitis 477.9 and GERD (gastroesophageal reflux disease) 530.81 [place] [address] [address] [place] [id number] [address] [place] [id number] Feb, [place] [address] [place] [address] Feb, [facility] [address] [id number] [address] [place] [address], [place] [address] Jan, [facility] [address] [id number] [address] [place] [address], [place] [address] Jan, [facility] [address] [id number] [address] [place] [address], [place] [address] Jan, [facility] [address] [id number] [address] [place] [address], [place] [address] Jan, [facility] [address] [id number] [address] [place] [address], [place] [address] Dec, [facility] [address] [id number] [address] [place] [address], [place] [address] Dec, [facility] [address] [id number] [address] [place] [address], [place] [address] Dec, [facility] [address] [id number] [address] [place] [address], [place] [address] Dec, [facility] [address] [id number] [address] [place] [address], [place] [address] Dec, [facility] [address] [id number] [address] [place] [address] Dec, [facility] [address] [id number] [address] [place] [address], [place] [address] Dec, [facility] [address] [id number] [address] [place] [phone] Nov, [facility] [address] [id number] [address] [place] [address], [place] [address] Nov, [facility] [address] [id number] [address] [place] [address], [place] [address] Nov, [facility] [address] [id number] [address] [place] [address] Nov, [facility] [address] [id number] [address] [place] [address], [place] [address] Nov, [facility] [address] [id number] [address] [place] [address], [place] [address] Nov, [facility] [address] [id number] [address] [place] [address], [place] [address] Nov, [facility] [address] [id number] [address] [place] [address], [place] [address] Nov, [facility] [address] [id number] [address] [place] [address], [place] [address] Nov, [facility] [address] [id number] [address] [place] [address], [place] [address] Nov, [facility] [address] [id number] [address] [place] [address], [place] [address] Nov, [facility] [address] [id number] [address] [place] [address], [place] [address] Nov, [facility] [address] [id number] [address] [place] [address], [place] [address] Nov, [facility] [address] [id number] [address] [place] [address], [place] [address] Nov, [facility] [address] [id number] [address] [place] [address], [place] [address] Nov, [facility] [address] [id number] [address] [place] [address], [place] [address] Nov, [facility] [address] [id number] [address] [place] [address], [place] [address] Nov, [facility] [address] [id number] [address] [place] [address], [place] [address] Nov, [facility] [address] [id number] [address] [place] [address], [place] [address] Nov, [facility] [address] [id number] [address] [place] [id number] Nov, [facility] [address] [id number] [address] [place] [address], [place] [address] Nov, [facility] [address] [id number] [address] [place] [address], [place] [address] Nov, [facility] [address] [id number] [address] [place] [address], [place] [address] Nov, [facility] [address] [id number] [address] [place] [address], [place] [address] Nov, [facility] [address] [id number] [address] [place] [address], [place] [address] Nov, [facility] [address] [id number] [address] [place] [address], [place] [address] Nov, [facility] [address] [id number] [address] [place] [address], [place] [address] Nov, [facility] [address] [id number] [address] [place] [address], [place] [address] Nov, [facility] [address] [id number] [address] [place] [address], [place] [address] Nov, [facility] [address] [id number] [address] [place] [address], [place] [address] Oct, [facility] [address] [id number] [address] [place] [address], [place] [address] Oct, [facility] [address] [id number] [address] [place] [address], [place] [address] Oct, [facility] [address] [id number] [address] [place] [address], [place] [address] Oct, [facility] [address] [id number] [address] [place] [address], [place] [address] Oct, [facility] [address] [id number] [address] [place] [address], [place] [address] Oct, [facility] [address] [id number] [facility] [place] [address] Oct, [facility] [address] [id number] [facility] [place] [address] Oct, [facility] [address] [id number] [address] [place] [address], [place] [address] Oct, [facility] [address] [id number] [address] [place] [address], [place] [address] Oct, [facility] [address] [id number] [address] [place] [address], [place] [address] Oct, [facility] [address] [id number] [address] [place] [address], [place] [address] Oct, [facility] [address] [id number] [address] [place] [address], [place] [address] 17 Oct, 2014 [facility] [address] [id number] [address] [place] [address], [place] [address] 17 Oct, 2014 [facility] [address] [id number] [address] [place] [address], [place] [address] 16 Oct, 2014 [facility] [address] [id number] [address] [place] [address], [place] [address] 16 Oct, 2014 [facility] [address] [id number] [address] [place] [address], [place] [address] 13 Oct, 2014 [facility] [address] [id number] [address] [place] [address], [place] [address] 12 Oct, 2014 [facility] [address] [id number] [address] [place] [address], [place] [address] 12 Oct, 2014 [facility] [address] [id number] [address] [place] [address], [place] [address] 05 Oct, 2014 [facility] [address] [id number] [address] [place] [address], [place] [address] 05 Oct, 2014 [facility] [address] [id number] [address] [place] [address] [address] Oct, [facility] [address] [id number] [address] [place] [address], [place] [address] Oct, [facility] [address] [id number] [address] [place] [address], [place] [address] Sep, [facility] [address] [id number] [address] [place] [address], [place] [address] Sep, [facility] [address] [id number] [address] [place] [address], [place] [address] Sep, [facility] [address] [id number] [address] [place] [address], [place] [address] Sep, [facility] [address] [id number] [address] [place] [address], [place] [address] Sep, [facility] [address] [id number] [address] [place] [address], [place] [address] Sep, [facility] [address] [id number] [address] [place] [address], [place] [address] Sep, [facility] [address] [id number] [address] [place] [address], [place] [address] Sep, [facility] [address] [id number] [address] [place] [address], [place] [address] Sep, [facility] [address] [id number] [address] [place] [address], [place] [address] Sep, [facility] [address] [id number] [address] [place] [address], [place] [address] Sep, [facility] [address] [id number] [address] [place] [address], [place] [address] Sep, [facility] [address] [id number] [address] [place] [address], [place] [address] Sep, [facility] [address] [id number] [address] [place] [address], [place] [address] Sep, [facility] [address] [id number] [address] [place] [address], [place] [address] 12 Sep, 2014 [facility] [address] [id number] [address] [place] [address], [place] [address] Sep, [facility] [address] [id number] [address] [place] [address], [place] [address] Sep, [facility] [address] [id number] [address] [place] [address], [place] [address] Sep, [facility] [address] [id number] [address] [place] [address], [place] [address] Sep, [facility] [address] [id number] [address] [place] [address], [place] [address] Sep, [facility] [address] [id number] [address] [place] [address], [place] [address] Sep, [facility] [address] [id number] [address] [place] [address], [place] [address] Sep, [facility] [address] [id number] [address] [place] [address], [place] [address] Sep, [facility] [address] [id number] [address] [place] [address], [place] [address] Sep, [facility] [address] [id number] [address] [place] [address], [place] [address] Sep, [facility] [address] [id number] [address] [place] [address], [place] [address] Sep, [facility] [address] [id number] [address] [place] [address], [place] [address] Sep, [facility] [address] [id number] [address] [place] [address], [place] [address] Sep, [facility] [address] [id number] [address] [place] [address], [place] [address] Aug, [facility] [address] [id number] [address] [place] [address], [place] [address] Aug, [facility] [address] [id number] [address] [place] [address], [place] [address] Aug, [facility] [address] [id number] [address] [place] [address], [place] [address] Aug, [facility] [address] [id number] [address] [place] [address], [place] [address] Aug, [facility] [address] [id number] [address] [place] [address], [place] [address] Aug, [facility] [address] [id number] [address] [place] [address], [place] [address] Aug, [facility] [address] [id number] [address] [place] [address], [place] [address] Aug, [facility] [address] [id number] [address] [place] [address], [place] [address] Aug, [facility] [address] [id number] [address] [place] [address], [place] [address] Aug, [facility] [address] [id number] [address] [place] [address], [place] [address] Aug, [facility] [address] [id number] [address] [place] [address], [place] [id number] Aug, [facility] [address] [id number] [address] [place] [address], [place] [address] Aug, [facility] [address] [id number] [address] [place] [address], [place] [address] Aug, [facility] [address] [id number] [address] [place] [address], [place] [address] Aug, [facility] [address] [id number] [address] [place] [address], [place] [address] Aug, [facility] [address] [id number] [address] [place] [address], [place] [address] 17 Aug, 2014 [facility] [address] [id number] [address] [place] [address], [place] [id number] 17 Aug, 2014 [facility] [address] [id number] [address] [place] [address], [place] [address] 14 Aug, 2014 [facility] [address] [id number] [address] [place] [address], [place] [address] 14 Aug, 2014 [facility] [address] [id number] [address] [place] [address], [place] [address] Aug, 2013 [facility] [address] [id number] [address] [place] [address] Aug, 2013 [facility] [address] [id number] [address] [place] [address], [place] [address] Aug, 2013 [facility] [address] [id number] [address] [place] [id number] Aug, 2013 [facility] [address] [id number] [address] [place] [address], [place] [address] 08 Aug, 2014 [facility] [address] [id number] [address] [place] [id number] Aug, 2013 [facility] [address] [id number] [address] [place] [id number] Aug, 2013 [facility] [address] [id number] [address] [place] [id number] Aug, [facility] [address] [id number] [address] [place] [id number] 07 Aug, 2014 [facility] [address] [id number] [address] [place] [id number] 30 Jul, 2013 [facility] [address] [id number] [address] [place] [address], [place] [address] 30 Jul, 2013 [facility] [address] [id number] [address] [place] [address], [place] [address] 29 Jul, 2013 [facility] [address] [id number] [address] [place] [address], [place] [id number] 29 Jul, 2013 [facility] [address] [id number] [address] [place] [address] 19 Jul, 2013 [facility] [address] [id number] [facility] [place] [address] 19 Jul, 2013 [facility] [address] [id number] [address] [place] [address] 18 Jul, 2013 [facility] [address] [id number] [address] [place] [address], [place] [address] 18 Jul, 2013 [facility] [address] [id number] [address] [place] [address], [place] [id number] 17 Jul, 2013 [facility] [address] [id number] [address] [place] [address], [place] [id number] 17 Jul, 2013 [facility] [address] [id number] [address] [place] [address], [place] [id number] 10 Jul, 2013 [facility] [address] [id number] [address] [place] [address], [place] [id number] 10 Jul, 2013 [facility] [address] [id number] [address] [place] [address], [place] [id number] Jun, [facility] [address] [id number] [address] [place] [address], [place] [address] Jun, [facility] [address] [id number] [address] [place] [address], [place] [address] Jun, [facility] [address] [id number] [address] [place] [address], [place] [address] Jun, [facility] [address] [id number] [address] [place] [address], [place] [address] Jun, [facility] [address] [id number] [address] [place] [address], [place] [id number] Jun, [facility] [address] [id number] [address] [place] [address], [place] [address] Jun, [facility] [address] [id number] [address] [place] [address], [place] [address] Jun, [facility] [address] [id number] [address] [place] [phone] Jun, [facility] [address] [id number] [address] [place] [phone] Jun, [facility] [address] [id number] [address] [place] [phone] Jun, [facility] [address] [id number] [address] [place] [phone] Jun, [facility] [address] [id number] [address] [place] [phone] May, [facility] [address] [id number] [address] [place] [phone] May, [facility] [address] [facility] [id number] [address] [place] [phone] May, IMMUNIZATIONS No Known Immunizations SOCIAL HISTORY Never Assessed REASON FOR VISIT PLAN OF CARE VITAL SIGNS MEDICATIONS Unknown Medications RESULTS No Results PROCEDURES Procedure Date Ordered Result Body Site URINE TEST Nov 16, 2014 INSTRUCTIONS MEDICATIONS ADMINISTERED No Known Medications [...]
--- OUTSIDE RECORDS SUMMARY | 2020-05-03 14:34 | XMS REPORT ---
Author Author Tracee Briceño Doctor Organization [facility] Address Unknown Phone Unavailable Care Team Providers Care Hvac Project Manager Name Role Phone Migration, Doctor Unavailable Unavailable PROBLEMS Type Condition ICD9-CM Code [id number] Code Onset Dates Condition S tatus SNOMED Code Problem Primary insomnia F51.01 Active 397 2004 Problem Breast pain N64.4 Active 31570080 Problem History of renal transplant Z94.0 Ac tive 957109036 Problem Violation of controlled substance agreement Z91.14 Active 538239893 Problem Mild intermittent asthma without complication J45. 20 Active 097243466 Problem Screening breast examination Z12.39 A ctive 146359944 Problem Irritable bowel syndrome without diarrhea K58.9 Active 53165558 Problem Irritable bowel syndrome with diarrhea K58.0 Active [id number] ALLERGIES No Information ENCOUNTERS Encounter Location Date Diagnosis [facility] [address] [id number] [place] [address] [id number] March, Dental examination Z01.20 [facility] [address] [id number] [address] [id number] Feb, Caries K02.9 [facility] [address] [id number] [place] [address] [id number] Feb, Caries K02.9 [facility] [address] [id number] [place] [address] [id number] Jan, [facility] [address] [id number] [address] [place] [address] [id number] Jan, Caries K02.9 [facility] [address] [id number] [place] [address] [id number] Dec, [facility] [address] [id number] [place] [address] [id number] Dec, Dental examination Z01.20 an d Caries K02.9 [place] [address] [place] [id number] [address] [place] [id number] 14 Sep, 2016 Dental examination Z01.20 [place] [address] [place] [id number] [place] [id number] 08 Jan, 2016 Nausea R11.0 ; Irritable bow el syndrome without diarrhea K58.9 and History of renal transplant Z94.0 [place] [address] [place] [id number] [place] [phone] 2015 [place] [address] [place] [id number] [place] [phone] 11 Dec, 2015 Breast pain N64.4 ; Screenin g breast examination Z12.39 and Mild intermittent asthma without complication J45.20 [place] [address] [place] [id number] [place] [phone] 10 Dec, 2015 [place] [address] [id number] 09 Dec, 2015 Kidney transplant status Z94 .0 ; Personal history of immunosupression therapy Z92.25 ; Recurrent UTI N39.0 and Encounter for screening, unspecified Z13.9 [place] [address] [place] [id number] [address] [place] [phone] Oct, [place] [address] [place] [id number] [address] [place] [phone] Oct, [place] [address] [place] [id number] [address] [place] [phone] Oct, [place] [address] [place] [id number] [address] [place] [phone] Oct, Hiatal hernia K44.9 and Atyp ical chest pain R07.89 [place] [address] [place] [id number] [address] [place] [phone] Oct, [place] [address] [place] [id number] [address] [place] [phone] Sep, Kidney replaced by transplan t V42.0 and Bilateral low back pain with sciatica, sciatica laterality unspecified M54.40 [facility] [address] [id number] [address] [place] [phone] Sep, [facility] [address] [id number] [address] [place] [phone] Sep, Kidney replaced by transplan t V42.0 ; Bilateral low back pain with sciatica, sciatica laterality unspecified M54.40 ; Anxiety F41.9 and Primary insomnia F51.01 [facility] [address] [id number] [address] [place] [phone] Aug, [facility] [address] [id number] [address] [place] [phone] Aug, [facility] [address] [id number] [address] [place] [phone] Aug, Kidney transplant status Z94 .0 ; Personal history of immunosupression therapy Z92.25 ; Recurrent urinary tract infection N39.0 and Screening Z13.9 [facility] [address] [id number] [address] [place] [phone] Aug, [facility] [address] [id number] [address] [place] [phone] Aug, Encounter for aftercare foll owing kidney transplant Z48.22 ; Chronic radicular pain of lower back M54.16 and PND (post-nasal drip) R09.82 [facility] [address] [id number] [address] [place] [phone] Jul, [facility] [address] [id number] [address] [place] [phone] Jul, [facility] [address] [id number] [address] [place] [phone] Jul, [facility] [address] [id number] [address] [place] [phone] Jul, Kidney replaced by transplan t V42.0 ; Depressive disorder, not elsewhere classified 311 ; Anxiety state, unspecified 300.00 ; Insomnia, unspecified 780.52 ; Irritable bowel syndrome 564.1 ; Chronic lumbar pain 724.2 and GERD (gastroesophageal reflux disease) 530.81 [facility] [address] [id number] [address] [place] [phone] Jul, [facility] [address] [id number] [address] [place] [phone] Jun, [facility] [address] [id number] [address] [place] [phone] Jun, [facility] [address] [id number] [address] [place] [phone] Jun, [facility] [address] [id number] [address] [place] [phone] Jun, Kidney replaced by transplan t V42.0 [facility] [address] [id number] [address] [place] [phone] May, [facility] [address] [id number] [address] [place] [phone] May, Depression with anxiety 300. 4 and Skin infection 686.9 [place] [address] [id number] [address] [place] [phone] May, [facility] [address] [id number] [address] [place] [phone] May, Kidney replaced by transplan t V42.0 ; Recurrent UTI (urinary tract infection) 599.0 and Absence of menstruation 626.0 [facility] [address] [id number] [address] [place] [phone] May, [place] [address] [facility] [id number] [address] [place] [phone] May, Depression with anxiety 300. 4 [place] [address] [facility] [id number] [address] [place] [phone] May, [place] [address] [place] [id number] [address] [place] [phone] Apr, [place] [address] [address] Apr, [place] [address] [address] Apr, Depression, major, recurrent , mild 296.[address] [address] Apr, Depression, major, recurrent , mild 296.[address] [address] Apr, Cervicalgia 723.1 ; Lumbago 724.2 ; Anxiety state, unspecified 300.00 ; Nausea 787.02 ; 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 ; Recurrent UTI (urinary tract infection) 599.0 and Knee pain, bilateral 719.[address] [address] March, Depression, major, recurrent , mild 296.[address] [address] March, [address] [address] March, [address] [address] March, Lumbago 724.2 ; Insomnia, un specified 780.52 ; Depressive disorder, not elsewhere classified 311 ; 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 ; Anxiety 300.00 ; Allergic rhinitis 477.9 and GERD (gastroesophageal reflux disease) 530.81 [id number] [address] [place] [phone] Feb, [address] [address] Feb, [place] [id number] [address] [place] [address], [place] [address] Jan, [facility] [address] [id number] [address] [place] [address], [place] [address] Jan, [facility] [address] [id number] [address] [place] [address], [place] [address] Jan, [facility] [address] [id number] [address] [place] [address], [place] [address] Jan, [facility] [address] [id number] [address] [place] [address], [place] [address] Dec, [facility] [address] [id number] [address] [place] [address], [place] [address] Dec, [facility] [address] [id number] [address] [place] [address], [place] [address] Dec, [facility] [address] [id number] [address] [place] [address], [place] [address] Dec, [facility] [address] [id number] [address] [place] [address], [place] [address] Dec, [facility] [address] [id number] [address] [place] [address], [place] [address] Dec, [facility] [address] [id number] [address] [place] [address], [place] [address] Dec, [facility] [address] [id number] [address] [place] [address], [place] [address] Nov, [facility] [address] [id number] [address] [place] [address], [place] [address] Nov, [facility] [address] [id number] [address] [place] [address], [place] [address] Nov, [facility] [address] [id number] [address] [place] [address], [place] [address] Nov, [facility] [address] [id number] [address] [place] [address], [place] [address] Nov, [facility] [address] [id number] [address] [place] [address], [place] [address] Nov, [facility] [address] [id number] [address] [place] [address], [place] [address] Nov, [facility] [address] [id number] [address] [place] [address], [place] [address] Nov, [facility] [address] [id number] [address] [place] [address], [place] [address] Nov, [facility] [address] [id number] [address] [place] [address], [place] [address] Nov, [facility] [address] [id number] [address] [place] [address], [place] [address] Nov, [facility] [address] [id number] [address] [place] [address], [place] [address] Nov, [facility] [address] [id number] [address] [place] [address], [place] [address] Nov, [facility] [address] [id number] [address] [place] [address], [place] [address] Nov, [facility] [address] [id number] [address] [place] [address], [place] [address] Nov, [facility] [address] [id number] [address] [place] [address], [place] [address] Nov, [facility] [address] [id number] [address] [place] [address], [place] [address] Nov, [facility] [address] [id number] [address] [place] [address], [place] [address] Nov, [facility] [address] [id number] [address] [place] [address], [place] [address] Nov, [facility] [address] [id number] [address] [place] [address], [place] [address] Nov, [facility] [address] [id number] [address] [place] [address], [place] [address] Nov, [facility] [address] [id number] [address] [place] [address], [place] [address] Nov, [facility] [address] [id number] [address] [place] [address], [place] [address] Nov, [facility] [address] [id number] [address] [place] [address], [place] [address] Nov, [facility] [address] [id number] [address] [place] [address], [place] [address] Nov, [facility] [address] [id number] [address] [place] [address], [place] [address] Nov, [facility] [address] [id number] [address] [place] [address], [place] [address] Nov, [facility] [address] [id number] [address] [place] [address], [place] [address] Nov, [facility] [address] [id number] [address] [place] [address], [place] [address] Nov, [facility] [address] [id number] [address] [place] [address], [place] [address] Oct, [facility] [address] [id number] [address] [place] [address], [place] [address] Oct, [facility] [address] [id number] [address] [place] [address], [place] [address] Oct, [facility] [address] [id number] [address] [place] [address], [place] [address] Oct, [facility] [address] [id number] [address] [place] [address], [place] [address] Oct, [facility] [address] [id number] [address] [place] [address], [place] [address] Oct, [facility] [address] [id number] [address] [place] [address], [place] [address] Oct, [facility] [address] [id number] [address] [place] [address], [place] [address] Oct, [facility] [address] [id number] [address] [place] [address], [place] [address] Oct, [facility] [address] [id number] [address] [place] [address], [place] [address] Oct, [facility] [address] [id number] [address] [place] [address], [place] [address] Oct, [facility] [address] [id number] [address] [place] [address], [place] [address] Oct, [facility] [address] [id number] [address] [place] [address], [place] [address] Oct, [facility] [address] [id number] [address] [place] [address], [place] [address] Oct, [facility] [address] [id number] [address] [place] [address], [place] [address] 16 Oct, 2014 [facility] [address] [id number] [address] [place] [address], [place] [address] 16 Oct, 2014 [facility] [address] [id number] [address] [place] [address], [place] [address] Oct, [facility] [address] [id number] [address] [place] [address], [place] [address] Oct, [facility] [address] [id number] [address] [place] [address], [place] [address] Oct, [facility] [address] [id number] [address] [place] [address], [place] [address] 05 Oct, 2014 [facility] [address] [id number] [address] [place] [address], [place] [address] 05 Oct, 2014 [facility] [address] [id number] [address] [place] [address], [place] [address] Oct, [facility] [address] [id number] [address] [place] [phone] Oct, [facility] [address] [id number] [address] [place] [address], [place] [address] Sep, [facility] [address] [id number] [address] [place] [address], [place] [address] Sep, [facility] [address] [id number] [address] [place] [address], [place] [address] Sep, [facility] [address] [id number] [address] [place] [address], [place] [address] Sep, [facility] [address] [id number] [address] [place] [address], [place] [address] Sep, [facility] [address] [id number] [address] [place] [address], [place] [address] Sep, [facility] [address] [id number] [address] [place] [address], [place] [address] Sep, [facility] [address] [id number] [address] [place] [address], [place] [address] Sep, [facility] [address] [id number] [address] [place] [address], [place] [address] Sep, [facility] [address] [id number] [address] [place] [address], [place] [address] Sep, [facility] [address] [id number] [address] [place] [address], [place] [address] Sep, [facility] [address] [id number] [address] [place] [address], [place] [address] Sep, [facility] [address] [id number] [address] [place] [address], [place] [address] Sep, [facility] [address] [id number] [address] [place] [address], [place] [address] Sep, [facility] [address] [id number] [address] [place] [address], [place] [address] Sep, [facility] [address] [id number] [address] [place] [address], [place] [address] Sep, [facility] [address] [id number] [address] [place] [address], [place] [address] Sep, [facility] [address] [id number] [address] [place] [address], [place] [address] Sep, [facility] [address] [id number] [address] [place] [address], [place] [address] Sep, [facility] [address] [id number] [address] [place] [address], [place] [address] Sep, [facility] [address] [id number] [address] [place] [address], [place] [address] Sep, [facility] [address] [id number] [address] [place] [address], [place] [address] Sep, [facility] [address] [id number] [address] [place] [address], [place] [address] Sep, [facility] [address] [id number] [address] [place] [address], [place] [address] Sep, [facility] [address] [id number] [address] [place] [address], [place] [address] Sep, [facility] [address] [id number] [address] [place] [address], [place] [address] Sep, [facility] [address] [id number] [address] [place] [address], [place] [address] Sep, [facility] [address] [id number] [address] [place] [address], [place] [address] Sep, [facility] [address] [id number] [address] [place] [address], [place] [address] Aug, [facility] [address] [id number] [address] [place] [address], [place] [address] Aug, [facility] [address] [id number] [address] [place] [address], [place] [address] Aug, [facility] [address] [id number] [address] [place] [address], [place] [address] Aug, [facility] [address] [id number] [address] [place] [address], [place] [address] Aug, [facility] [address] [id number] [address] [place] [address], [place] [address] Aug, [facility] [address] [id number] [address] [place] [address], [place] [address] Aug, [facility] [address] [id number] [address] [place] [address], [place] [address] Aug, [facility] [address] [id number] [address] [place] [address], [place] [address] Aug, [facility] [address] [id number] [address] [place] [address], [place] [address] Aug, [facility] [address] [id number] [address] [place] [address], [place] [address] Aug, [facility] [address] [id number] [address] [place] [address], [place] [address] Aug, [facility] [address] [id number] [address] [place] [address] Aug, [facility] [address] [id number] [address] [place] [address], [place] [address] Aug, [facility] [address] [id number] [address] [place] [address] Aug, [facility] [address] [id number] [address] [place] [address], [place] [address] Aug, [facility] [address] [id number] [address] [place] [address], [place] [address] Aug, [facility] [address] [id number] [address] [place] [address], [place] [id number] Aug, [facility] [address] [id number] [address] [place] [address], [place] [id number] 14 Aug, 2013 [facility] [address] [id number] [address] [place] [address], [place] [id number] 14 Aug, 2013 [facility] [address] [id number] [address] [place] [address], [place] [id number] 09 Aug, 2013 [facility] [address] [id number] [address] [place] [address], [place] [id number] 09 Aug, 2013 [facility] [address] [id number] [address] [place] [address], [place] [id number] 09 Aug, 2013 [facility] [address] [id number] [address] [place] [address], [place] [id number] 09 Aug, 2013 [facility] [address] [id number] [address] [place] [address], [place] [id number] 08 Aug, 2013 [facility] [address] [id number] [address] [place] [address], [place] [id number] 07 Aug, 2013 [facility] [address] [id number] [address] [place] [address], [place] [id number] 07 Aug, 2013 [facility] [address] [id number] [address] [place] [address], [place] [id number] 07 Aug, 2013 [facility] [address] [id number] [address] [place] [address], [place] [id number] 07 Aug, 2013 [facility] [address] [id number] [address] [place] [address], [place] [id number] 30 Sep, 2013 [facility] [address] [id number] [address] [place] [id number] 30 Sep, 2013 [facility] [address] [id number] [address] [place] [address], [place] [id number] 29 Sep, 2013 [facility] [address] [id number] [address] [place] [address], [place] [id number] 29 Sep, 2013 [facility] [address] [id number] [address] [place] [address], [place] [id number] 19 Sep, 2013 [facility] [address] [id number] [facility] [place] [id number] 19 Jul, 2013 [facility] [address] [id number] [facility] [place] [id number] 18 Jul, 2013 [facility] [address] [id number] [facility] [place] [id number] 18 Jul, 2013 [facility] [address] [id number] [facility] [place] [id number] 17 Jul, 2013 [facility] [address] [id number] [facility] [place] [id number] 17 Jul, 2013 [facility] [address] [id number] [address] [place] [address], [place] [id number] 10 Jul, 2014 [facility] [address] [id number] [address] [place] [address], [place] [id number] Jul, 2013 [facility] [address] [id number] [address] [place] [address], [place] [id number] Jun, [facility] [address] [id number] [address] [place] [address], [place] [id number] Jun, [facility] [address] [id number] [address] [place] [address], [place] [id number] Jun, [facility] [address] [id number] [address] [place] [address], [place] [id number] Jun, [facility] [address] [id number] [address] [place] [address], [place] [id number] Jun, [facility] [address] [id number] [address] [place] [address], [place] [id number] Jun, [facility] [address] [id number] [address] [place] [address], [place] [address] Jun, [facility] [address] [id number] [address] [place] [address], [place] [id number] Jun, [facility] [address] [id number] [address] [place] [address], [place] [id number] Jun, [facility] [address] [facility] [id number] [address] [place] [id number] Jun, [facility] [address] [facility] [id number] [address] [place] [id number] Jun, [facility] [address] [facility] [id number] [address] [place] [id number] Jun, [facility] [address] [facility] [id number] [place] [phone] May, [facility] [address] [facility] [id number] [place] [phone] May, [facility] [address] [facility] [id number] [address] [place] [phone] May, IMMUNIZATIONS No Known Immunizations SOCIAL HISTORY [...]
--- OUTSIDE RECORDS SUMMARY | 2020-05-03 14:34 | XMS REPORT ---
Author Author Tracee AVILA Organization [facility] Address [address] [place] [address] Care Team Providers Care Busher Helper Name Role Phone SARAI AVILA Unavailable PROBLEMS Type Condition ICD9-CM Code PSC02-VW Code Onset Dates Condition S tatus SNOMED Code Problem Primary insomnia F51.01 Active 397 2004 Problem Breast pain N64.4 Active 55997145 Problem History of renal transplant Z94.0 Ac tive 849380085 Problem Violation of controlled substance agreement Z91.14 Active 832202252 Problem Mild intermittent asthma without complication J45. 20 Active 500986484 Problem Screening breast examination Z12.39 A ctive 348801712 Problem Irritable bowel syndrome without diarrhea K58.9 Active 36078452 Problem Irritable bowel syndrome with diarrhea K58.0 Active 965766331 ALLERGIES No Information ENCOUNTERS Encounter Location Date Diagnosis [facility] [address] [id number] [place] [address] [id number] March, Dental examination Z01.20 [facility] [address] [id number] [address] [place] [address] [id number] Feb, Caries K02.9 [facility] [address] [id number] [address] [place] [address] [id number] Feb, Caries K02.9 [facility] [address] [id number] [address] [place] [address] [id number] Jan, [facility] [address] [id number] [address] [place] [address] [id number] Jan, Caries K02.9 [facility] [address] [id number] [address] [place] [address] [id number] Dec, [facility] [address] [id number] [address] [place] [address] [id number] Dec, 2018 Dental examination Z01.20 an d Caries K02.9 [place] [address] [address] 14 Sep, 2016 Dental examination Z01.20 [place] [address] [address] [place] [id number] [address] [place] [address] 08 Jan, 2016 Nausea R11.0 ; Irritable bow el syndrome without diarrhea K58.9 and History of renal transplant Z94.0 [place] [address] [address] 2015 [place] [address] [address] 11 Dec, 2015 Breast pain N64.4 ; Screenin g breast examination Z12.39 and Mild intermittent asthma without complication J45.20 [place] [address] [address] 10 Dec, 2015 [place] [address] [id number] 09 Dec, 2015 Kidney transplant status Z94 .0 ; Personal history of immunosupression therapy Z92.25 ; Recurrent UTI N39.0 and Encounter for screening, unspecified Z13.9 [place] [address] [address] [place] [id number] [address] [place] [address] Oct, [place] [address] [place] [id number] [address] [place] [address] Oct, [place] [address] [place] [id number] [address] [place] [address] Oct, [place] [address] [address] Oct, Hiatal hernia K44.9 and Atyp ical chest pain R07.89 [place] [address] [address] [place] [id number] [address] [place] [address] Oct, [place] [address] [id number] [address] [place] [address] Sep, Kidney replaced by transplan t V42.0 and Bilateral low back pain with sciatica, sciatica laterality unspecified M54.40 [facility] [address] [id number] [address] [place] [address] Sep, [facility] [address] [id number] [address] [place] [address] Sep, Kidney replaced by transplan t V42.0 ; Bilateral low back pain with sciatica, sciatica laterality unspecified M54.40 ; Anxiety F41.9 and Primary insomnia F51.01 [facility] [address] [id number] [address] [place] [address] Aug, [facility] [address] [id number] [address] [place] [address] Aug, [facility] [address] [id number] [address] [place] [address] Aug, Kidney transplant status Z94 .0 ; Personal history of immunosupression therapy Z92.25 ; Recurrent urinary tract infection N39.0 and Screening Z13.9 [facility] [address] [id number] [address] [place] [address] Aug, [facility] [address] [id number] [address] [place] [address] Aug, Encounter for aftercare foll owing kidney transplant Z48.22 ; Chronic radicular pain of lower back M54.16 and PND (post-nasal drip) R09.82 [facility] [address] [id number] [address] [place] [address] Jul, [facility] [address] [id number] [address] [place] [address] Jul, [facility] [address] [id number] [address] [place] [address] Jul, [facility] [address] [id number] [address] [place] [address] Jul, Kidney replaced by transplan t V42.0 ; Depressive disorder, not elsewhere classified 311 ; Anxiety state, unspecified 300.00 ; Insomnia, unspecified 780.52 ; Irritable bowel syndrome 564.1 ; Chronic lumbar pain 724.2 and GERD (gastroesophageal reflux disease) 530.81 [facility] [address] [id number] [address] [place] [address] Jul, [facility] [address] [id number] [address] [place] [address] Jun, [facility] [address] [id number] [address] [place] [address] Jun, [facility] [address] [facility] [id number] [address] [place] [address] Jun, [facility] [address] [facility] [id number] [address] [place] [address] Jun, Kidney replaced by transplan t V42.0 [facility] [address] [facility] [id number] [address] [place] [address] May, [facility] [address] [facility] [id number] [address] [place] [address] May, Depression with anxiety 300. 4 and Skin infection 686.9 [facility] [address] [facility] [id number] [address] [place] [address] May, [facility] [address] [id number] [address] [place] [address] May, Kidney replaced by transplan t V42.0 ; Recurrent UTI (urinary tract infection) 599.0 and Absence of menstruation 626.0 [facility] [address] [facility] [id number] [address] [place] [address] May, [facility] [address] [facility] [id number] [address] [place] [address] May, Depression with anxiety 300. 4 [place] [address] [address] [place] [id number] [address] [place] [address] May, [facility] [address] [place] [id number] [address] [place] [address] Apr, [facility] [address] [place] [id number] [address] [place] [address] Apr, [facility] [address] [place] [id number] [address] [place] [address] Apr, Depression, major, recurrent , mild 296.31 [facility] [address] [place] [id number] [address] [place] [address] Apr, Depression, major, recurrent , mild 296.31 [place] [address] [address] [place] [id number] [address] [place] [address] Apr, Cervicalgia 723.1 ; Lumbago 724.2 ; Anxiety state, unspecified 300.00 ; Nausea 787.02 ; 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 ; Recurrent UTI (urinary tract infection) 599.0 and Knee pain, bilateral 719.46 [place] [address] [address] [place] [id number] [address] [place] [address] March, Depression, major, recurrent , mild 296.31 [facility] [address] [place] [id number] [address] [place] [address] March, [facility] [address] [place] [id number] [address] [place] [address] March, [facility] [address] [place] [id number] [address] [place] [address] March, Lumbago 724.2 ; Insomnia, un specified 780.52 ; Depressive disorder, not elsewhere classified 311 ; 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 ; Anxiety 300.00 ; Allergic rhinitis 477.9 and GERD (gastroesophageal reflux disease) 530.81 [facility] [address] [place] [id number] [address] [place] [address] Feb, [facility] [address] [id number] [address] [place] [address], [place] [address] Feb, [facility] [address] [id number] [address] [place] [address], [place] [address] Jan, [facility] [address] [id number] [address] [place] [address], [place] [address] Jan, [facility] [address] [id number] [address] [place] [address], [place] [address] Jan, [facility] [address] [id number] [address] [place] [address], [place] [address] Jan, [facility] [address] [id number] [address] [place] [address], [place] [address] Dec, [facility] [address] [id number] [address] [place] [address], [place] [address] Dec, [facility] [address] [id number] [address] [place] [address], [place] [address] Dec, [facility] [address] [id number] [address] [place] [address], [place] [address] Dec, [facility] [address] [id number] [address] [place] [address], [place] [address] Dec, [facility] [address] [id number] [address] [place] [address], [place] [address] Dec, [facility] [address] [id number] [address] [place] [address], [place] [address] Dec, [facility] [address] [id number] [address] [place] [address], [place] [address] Nov, [facility] [address] [id number] [address] [place] [address], [place] [address] Nov, [facility] [address] [id number] [address] [place] [address], [place] [address] Nov, [facility] [address] [id number] [address] [place] [address] [address] Nov, [facility] [address] [id number] [address] [place] [address], [place] [address] Nov, [facility] [address] [id number] [address] [place] [address], [place] [address] Nov, [facility] [address] [id number] [address] [place] [address], [place] [address] Nov, [facility] [address] [id number] [address] [place] [address], [place] [address] Nov, [facility] [address] [id number] [address] [place] [address], [place] [address] Nov, [facility] [address] [id number] [address] [place] [address], [place] [address] Nov, [facility] [address] [id number] [address] [place] [address], [place] [address] Nov, [facility] [address] [id number] [address] [place] [address], [place] [address] Nov, [facility] [address] [id number] [address] [place] [address], [place] [address] Nov, [facility] [address] [id number] [address] [place] [address], [place] [address] Nov, [facility] [address] [id number] [address] [place] [address], [place] [address] Nov, [facility] [address] [id number] [address] [place] [address], [place] [address] Nov, [facility] [address] [id number] [address] [place] [address], [place] [address] Nov, [facility] [address] [id number] [address] [place] [address], [place] [address] Nov, [facility] [address] [id number] [address] [place] [address], [place] [address] Nov, [facility] [address] [id number] [address] [place] [address], [place] [address] Nov, [facility] [address] [id number] [address] [place] [address], [place] [address] Nov, [facility] [address] [id number] [address] [place] [address], [place] [address] Nov, [facility] [address] [id number] [address] [place] [address], [place] [address] Nov, [facility] [address] [id number] [address] [place] [address], [place] [address] Nov, [facility] [address] [id number] [address] [place] [address], [place] [address] Nov, [facility] [address] [id number] [address] [place] [address], [place] [address] Nov, [facility] [address] [id number] [address] [place] [address], [place] [address] Nov, [facility] [address] [id number] [address] [place] [address], [place] [address] Nov, [facility] [address] [id number] [address] [place] [address], [place] [address] Nov, [facility] [address] [id number] [address] [place] [address], [place] [address] Oct, [facility] [address] [id number] [address] [place] [address], [place] [address] Oct, [facility] [address] [id number] [address] [place] [address], [place] [address] Oct, [facility] [address] [id number] [address] [place] [address], [place] [address] Oct, [facility] [address] [id number] [address] [place] [address], [place] [address] Oct, [facility] [address] [id number] [address] [place] [address], [place] [address] Oct, [facility] [address] [id number] [address] [place] [address], [place] [address] Oct, [facility] [address] [id number] [address] [place] [address], [place] [address] Oct, [facility] [address] [id number] [address] [place] [address], [place] [address] Oct, [facility] [address] [id number] [address] [place] [address], [place] [address] Oct, [facility] [address] [id number] [address] [place] [address], [place] [address] Oct, [facility] [address] [id number] [address] [place] [address], [place] [address] Oct, [facility] [address] [id number] [address] [place] [address], [place] [address] Oct, [facility] [address] [id number] [address] [place] [address], [place] [address] Oct, [facility] [address] [id number] [address] [place] [address], [place] [address] Oct, [facility] [address] [id number] [address] [place] [address], [place] [address] Oct, [facility] [address] [id number] [address] [place] [address], [place] [address] Oct, [facility] [address] [id number] [address] [place] [address], [place] [address] Oct, [facility] [address] [id number] [address] [place] [address], [place] [address] Oct, [facility] [address] [id number] [address] [place] [address], [place] [address] 05 Oct, 2014 [facility] [address] [id number] [address] [place] [address], [place] [address] 05 Oct, 2014 [facility] [address] [id number] [address] [place] [address], [place] [address] Oct, [facility] [address] [id number] [address] [place] [address], [place] [address] Oct, [facility] [address] [id number] [address] [place] [address], [place] [address] Sep, [facility] [address] [id number] [address] [place] [address], [place] [address] Sep, [facility] [address] [id number] [address] [place] [address], [place] [address] Sep, [facility] [address] [id number] [address] [place] [address], [place] [address] Sep, [facility] [address] [id number] [address] [place] [address], [place] [address] Sep, [facility] [address] [id number] [address] [place] [address], [place] [address] Sep, [facility] [address] [id number] [address] [place] [address], [place] [address] Sep, [facility] [address] [id number] [address] [place] [address], [place] [address] Sep, [facility] [address] [id number] [address] [place] [address], [place] [address] Sep, [facility] [address] [id number] [address] [place] [address], [place] [address] Sep, [facility] [address] [id number] [address] [place] [address], [place] [address] Sep, [facility] [address] [id number] [address] [place] [address], [place] [address] Sep, [facility] [address] [id number] [address] [place] [address], [place] [address] Sep, [facility] [address] [id number] [address] [place] [address], [place] [address] Sep, [facility] [address] [id number] [address] [place] [address], [place] [address] Sep, [facility] [address] [id number] [address] [place] [address], [place] [address] Sep, [facility] [address] [id number] [address] [place] [address], [place] [address] Sep, [facility] [address] [id number] [address] [place] [address], [place] [address] Sep, [facility] [address] [id number] [address] [place] [address], [place] [address] Sep, [facility] [address] [id number] [address] [place] [address], [place] [address] Sep, [facility] [address] [id number] [address] [place] [address], [place] [address] Sep, [facility] [address] [id number] [address] [place] [address], [place] [address] Sep, [facility] [address] [id number] [address] [place] [address], [place] [address] Sep, [facility] [address] [id number] [address] [place] [address], [place] [address] Sep, [facility] [address] [id number] [address] [place] [address], [place] [address] Sep, [facility] [address] [id number] [address] [place] [address], [place] [address] Sep, [facility] [address] [id number] [address] [place] [address], [place] [address] Sep, [facility] [address] [id number] [address] [place] [address], [place] [address] Sep, [facility] [address] [id number] [address] [place] [address], [place] [address] Aug, [facility] [address] [id number] [address] [place] [address], [place] [address] Aug, [facility] [address] [id number] [address] [place] [address], [place] [address] Aug, [facility] [address] [id number] [address] [place] [address], [place] [address] Aug, [facility] [address] [id number] [address] [place] [address], [place] [address] Aug, [facility] [address] [id number] [address] [place] [address], [place] [address] Aug, [facility] [address] [id number] [address] [place] [address], [place] [address] Aug, [facility] [address] [id number] [address] [place] [address], [place] [address] Aug, [facility] [address] [id number] [address] [place] [address], [place] [address] Aug, [facility] [address] [id number] [address] [place] [address], [place] [address] Aug, [facility] [address] [id number] [address] [place] [address], [place] [address] Aug, [facility] [address] [id number] [address] [place] [id number] Aug, [facility] [address] [id number] [address] [place] [address] Aug, [facility] [address] [id number] [address] [place] [address] Aug, [facility] [address] [id number] [address] [place] [address], [place] [address] Aug, [facility] [address] [id number] [address] [place] [address], [place] [address] Aug, [facility] [address] [id number] [address] [place] [address] Aug, [facility] [address] [id number] [address] [place] [id number] 17 Aug, 2013 [facility] [address] [id number] [address] [place] [address], [place] [address] 14 Aug, 2013 [facility] [address] [id number] [address] [place] [id number] 14 Aug, 2013 [facility] [address] [id number] [address] [place] [address], [place] [address] 09 Aug, 2013 [facility] [address] [id number] [address] [place] [id number] 09 Aug, 2013 [facility] [address] [id number] [address] [place] [address], [place] [address] Aug, 2013 [facility] [address] [id number] [address] [place] [address], [place] [address] Aug, 2013 [facility] [address] [id number] [address] [place] [id number] 08 Aug, 2013 [facility] [address] [id number] [address] [place] [id number] 07 Aug, 2013 [facility] [address] [id number] [address] [place] [address] Aug, 2013 [facility] [address] [id number] [address] [place] [address] Aug, 2013 [facility] [address] [id number] [address] [place] [id number] 07 Aug, 2013 [facility] [address] [id number] [address] [place] [id number] 30 Jul, 2013 [facility] [address] [id number] [address] [place] [id number] 30 Jul, 2013 [facility] [address] [id number] [address] [place] [address] 29 Jul, 2013 [facility] [address] [id number] [address] [place] [id number] 29 Jul, 2013 [facility] [address] [id number] [address] [place] [address] 19 Jul, 2013 [facility] [address] [id number] [address] [place] [address] 19 Jul, 2013 [facility] [address] [id number] [address] [place] [address] 18 Jul, 2013 [facility] [address] [id number] [address] [place] [address] 18 Jul, 2013 [facility] [address] [id number] [address] [place] [address] 17 Jul, 2013 [facility] [address] [id number] [address] [place] [address], [place] [address] 17 Jul, 2013 [facility] [address] [id number] [address] [place] [address], [place] [address] 10 Jul, 2013 [facility] [address] [id number] [address] [place] [address], [place] [id number] 10 Jul, 2013 [facility] [address] [id number] [address] [place] [address], [place] [address] Jun, [facility] [address] [id number] [address] [place] [address], [place] [address] Jun, [facility] [address] [id number] [address] [place] [address], [place] [address] Jun, [facility] [address] [id number] [address] [place] [address], [place] [address] Jun, [facility] [address] [id number] [address] [place] [address], [place] [address] Jun, [facility] [address] [id number] [address] [place] [address], [place] [address] Jun, [facility] [address] [id number] [address] [place] [address], [place] [address] Jun, [facility] [address] [id number] [address] [place] [address] [address] Jun, [facility] [address] [id number] [address] [place] [id number] Jun, [facility] [address] [id number] [address] [place] [id number] Jun, [facility] [address] [id number] [address] [place] [id number] Jun, [facility] [address] [id number] [address] [place] [id number] Jun, [facility] [address] [id number] [address] [place] [id number] May, [facility] [address] [id number] [address] [place] [id number] May, [facility] [address] [facility] [id number] [address] [place] [id number] May, IMMUNIZATIONS No Known Immunizations SOCIAL HISTORY [...]
--- OUTSIDE RECORDS SUMMARY | 2020-05-03 14:34 | XMS REPORT ---
Author Author Tracee Ford Organization [facility] Address [address] [place] [address] Care Team Providers Care Senior Dentist Name Role Phone REGINE Ford Unavailable PROBLEMS Type Condition ICD9-CM Code [id number] Code Onset Dates Condition S tatus SNOMED Code Problem Primary insomnia F51.01 Active 397 2004 Problem Breast pain N64.4 Active 33936203 Problem History of renal transplant Z94.0 Ac tive 543084384 Problem Violation of controlled substance agreement Z91.14 Active 570097534 Problem Mild intermittent asthma without complication J45. 20 Active 193668376 Problem Screening breast examination Z12.39 A ctive 037829696 Problem Irritable bowel syndrome without diarrhea K58.9 Active 19910021 Problem Irritable bowel syndrome with diarrhea K58.0 Active 480116284 ALLERGIES No Information ENCOUNTERS Encounter Location Date Diagnosis [facility] [id number] [place] [address] [id number] March, Dental examination Z01.20 [facility] [address] [id number] [address] [place] [address] [id number] Feb, Caries K02.9 [facility] [address] [id number] [address] [place] [address] [id number] Feb, Caries K02.9 [facility] [address] [id number] [address] [place] [address] [id number] Jan, [facility] [address] [id number] [address] [place] [address] [id number] Jan, Caries K02.9 [facility] [address] [id number] [address] [place] [address] [id number] Dec, [facility] [address] [id number] [address] [place] [address] [id number] 18 Dec, 2018 Dental examination Z01.20 an d Caries K02.9 [place] [address] [address] 14 Sep, 2016 Dental examination Z01.20 [place] [address] [place] [id number] [address] [place] [id number] 08 Jan, 2016 Nausea R11.0 ; Irritable bow el syndrome without diarrhea K58.9 and History of renal transplant Z94.0 [place] [address] [id number] 2015 [place] [address] [id number] 11 Dec, 2015 Breast pain N64.4 ; Screenin g breast examination Z12.39 and Mild intermittent asthma without complication J45.20 [place] [address] [id number] 10 Dec, 2015 [place] [address] [id number] 09 Dec, 2015 Kidney transplant status Z94 .0 ; Personal history of immunosupression therapy Z92.25 ; Recurrent UTI N39.0 and Encounter for screening, unspecified Z13.9 [place] [address] [address] [place] [id number] [address] [place] [address] Oct, [place] [address] [address] [place] [id number] [address] [place] [phone] Oct, [place] [address] [address] [place] [id number] [address] [place] [phone] Oct, [place] [address] [id number] Oct, Hiatal hernia K44.9 and Atyp ical chest pain R07.89 [place] [address] [address] [place] [id number] [address] [place] [address] Oct, [place] [address] [id number] [address] [place] [address] Sep, Kidney replaced by transplan t V42.0 and Bilateral low back pain with sciatica, sciatica laterality unspecified M54.40 [facility] [address] [id number] [address] [place] [address] Sep, [facility] [address] [id number] [address] [place] [address] Sep, Kidney replaced by transplan t V42.0 ; Bilateral low back pain with sciatica, sciatica laterality unspecified M54.40 ; Anxiety F41.9 and Primary insomnia F51.01 [facility] [address] [id number] [address] [place] [address] Aug, [facility] [address] [id number] [address] [place] [address] Aug, [facility] [address] [id number] [address] [place] [address] Aug, Kidney transplant status Z94 .0 ; Personal history of immunosupression therapy Z92.25 ; Recurrent urinary tract infection N39.0 and Screening Z13.9 [facility] [address] [id number] [address] [place] [address] Aug, [facility] [address] [id number] [address] [place] [phone] Aug, Encounter for aftercare foll owing kidney transplant Z48.22 ; Chronic radicular pain of lower back M54.16 and PND (post-nasal drip) R09.82 [facility] [address] [id number] [address] [place] [address] Jul, [facility] [address] [id number] [address] [place] [address] Jul, [facility] [address] [id number] [address] [place] [id number] Jul, [facility] [address] [id number] [address] [place] [address] Jul, Kidney replaced by transplan t V42.0 ; Depressive disorder, not elsewhere classified 311 ; Anxiety state, unspecified 300.00 ; Insomnia, unspecified 780.52 ; Irritable bowel syndrome 564.1 ; Chronic lumbar pain 724.2 and GERD (gastroesophageal reflux disease) 530.81 [facility] [address] [id number] [address] [place] [id number] Jul, [facility] [address] [id number] [address] [place] [address] Jun, [facility] [address] [id number] [address] [place] [address] Jun, [facility] [address] [facility] [id number] [address] [place] [id number] Jun, [facility] [address] [facility] [id number] [address] [place] [address] Jun, Kidney replaced by transplan t V42.0 [facility] [address] [facility] [id number] [address] [place] [phone] May, [facility] [address] [facility] [id number] [address] [place] [phone] May, Depression with anxiety 300. 4 and Skin infection 686.9 [facility] [address] [facility] [id number] [address] [place] [address] May, [facility] [address] [id number] [address] [place] [address] May, Kidney replaced by transplan t V42.0 ; Recurrent UTI (urinary tract infection) 599.0 and Absence of menstruation 626.0 [facility] [address] [facility] [id number] [address] [place] [address] May, [facility] [address] [facility] [id number] [address] [place] [address] May, Depression with anxiety 300. 4 [place] [address] [address] [place] [id number] [address] [place] [phone] May, [facility] [address] [place] [id number] [address] [place] [address] Apr, [facility] [address] [place] [id number] [address] [place] [address] Apr, [facility] [address] [place] [id number] [address] [place] [address] Apr, Depression, major, recurrent , mild 296.31 [facility] [address] [place] [id number] [address] [place] [address] Apr, Depression, major, recurrent , mild 296.31 [place] [address] [address] [place] [id number] [address] [place] [address] Apr, Cervicalgia 723.1 ; Lumbago 724.2 ; Anxiety state, unspecified 300.00 ; Nausea 787.02 ; 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 ; Recurrent UTI (urinary tract infection) 599.0 and Knee pain, bilateral 719.46 [place] [address] [address] [place] [id number] [address] [place] [id number] March, Depression, major, recurrent , mild 296.31 [facility] [address] [place] [id number] [address] [place] [address] March, [facility] [address] [place] [id number] [address] [place] [address] March, [facility] [address] [place] [id number] [address] [place] [address] March, Lumbago 724.2 ; Insomnia, un specified 780.52 ; Depressive disorder, not elsewhere classified 311 ; 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 ; Anxiety 300.00 ; Allergic rhinitis 477.9 and GERD (gastroesophageal reflux disease) 530.81 [facility] [address] [place] [id number] [address] [place] [id number] Feb, [facility] [address] [id number] [address] [place] [address], [place] [address] Feb, [facility] [address] [id number] [address] [place] [address], [place] [address] Jan, [facility] [address] [id number] [address] [place] [address], [place] [address] Jan, [facility] [address] [id number] [address] [place] [address], [place] [address] Jan, [facility] [address] [id number] [address] [place] [address], [place] [address] Jan, [facility] [address] [id number] [address] [place] [address], [place] [address] Dec, [facility] [address] [id number] [address] [place] [address], [place] [address] Dec, [facility] [address] [id number] [address] [place] [address], [place] [address] Dec, [facility] [address] [id number] [address] [place] [address], [place] [address] Dec, [facility] [address] [id number] [address] [place] [address], [place] [address] Dec, [facility] [address] [id number] [address] [place] [address], [place] [address] Dec, [facility] [address] [id number] [address] [place] [address], [place] [address] Dec, [facility] [address] [id number] [address] [place] [address], [place] [address] Nov, [facility] [address] [id number] [address] [place] [address], [place] [address] Nov, [facility] [address] [id number] [address] [place] [address], [place] [address] Nov, [facility] [address] [id number] [address] [place] [address] [address] Nov, [facility] [address] [id number] [address] [place] [address], [place] [address] Nov, [facility] [address] [id number] [address] [place] [address], [place] [address] Nov, [facility] [address] [id number] [address] [place] [address], [place] [address] Nov, [facility] [address] [id number] [address] [place] [address], [place] [address] Nov, [facility] [address] [id number] [address] [place] [address], [place] [address] Nov, [facility] [address] [id number] [address] [place] [address], [place] [address] Nov, [facility] [address] [id number] [address] [place] [address], [place] [address] Nov, [facility] [address] [id number] [address] [place] [address], [place] [address] Nov, [facility] [address] [id number] [address] [place] [address], [place] [address] Nov, [facility] [address] [id number] [address] [place] [address], [place] [address] Nov, [facility] [address] [id number] [address] [place] [address], [place] [address] Nov, [facility] [address] [id number] [address] [place] [address], [place] [address] Nov, [facility] [address] [id number] [address] [place] [address], [place] [address] Nov, [facility] [address] [id number] [address] [place] [address], [place] [address] Nov, [facility] [address] [id number] [address] [place] [address], [place] [address] Nov, [facility] [address] [id number] [address] [place] [address], [place] [address] Nov, [facility] [address] [id number] [address] [place] [address], [place] [address] Nov, [facility] [address] [id number] [address] [place] [address], [place] [address] Nov, [facility] [address] [id number] [address] [place] [address], [place] [address] Nov, [facility] [address] [id number] [address] [place] [address], [place] [address] Nov, [facility] [address] [id number] [address] [place] [address], [place] [address] Nov, [facility] [address] [id number] [address] [place] [address], [place] [address] Nov, [facility] [address] [id number] [address] [place] [address], [place] [address] Nov, [facility] [address] [id number] [address] [place] [address], [place] [address] Nov, [facility] [address] [id number] [address] [place] [address], [place] [address] Nov, [facility] [address] [id number] [address] [place] [address], [place] [address] Oct, [facility] [address] [id number] [address] [place] [address], [place] [address] Oct, [facility] [address] [id number] [address] [place] [address], [place] [address] Oct, [facility] [address] [id number] [address] [place] [address], [place] [address] Oct, [facility] [address] [id number] [address] [place] [address], [place] [address] Oct, [facility] [address] [id number] [address] [place] [address], [place] [address] Oct, [facility] [address] [id number] [address] [place] [address], [place] [address] Oct, [facility] [address] [id number] [address] [place] [address], [place] [address] Oct, [facility] [address] [id number] [address] [place] [address], [place] [address] Oct, [facility] [address] [id number] [address] [place] [address], [place] [address] Oct, [facility] [address] [id number] [address] [place] [address], [place] [address] Oct, [facility] [address] [id number] [address] [place] [address], [place] [address] Oct, [facility] [address] [id number] [address] [place] [address], [place] [address] Oct, [facility] [address] [id number] [address] [place] [address], [place] [address] Oct, [facility] [address] [id number] [address] [place] [address], [place] [address] Oct, [facility] [address] [id number] [address] [place] [address], [place] [address] Oct, [facility] [address] [id number] [address] [place] [address], [place] [address] Oct, [facility] [address] [id number] [address] [place] [address], [place] [address] Oct, [facility] [address] [id number] [address] [place] [address], [place] [address] Oct, [facility] [address] [id number] [address] [place] [address], [place] [address] 05 Oct, 2014 [facility] [address] [id number] [address] [place] [address], [place] [address] 05 Oct, 2014 [facility] [address] [id number] [address] [place] [address], [place] [address] Oct, [facility] [address] [id number] [address] [place] [address], [place] [address] Oct, [facility] [address] [id number] [address] [place] [address], [place] [address] Sep, [facility] [address] [id number] [address] [place] [address], [place] [address] Sep, [facility] [address] [id number] [address] [place] [address], [place] [address] Sep, [facility] [address] [id number] [address] [place] [address], [place] [address] Sep, [facility] [address] [id number] [address] [place] [address], [place] [address] Sep, [facility] [address] [id number] [address] [place] [address], [place] [address] Sep, [facility] [address] [id number] [address] [place] [address], [place] [address] Sep, [facility] [address] [id number] [address] [place] [address], [place] [address] Sep, [facility] [address] [id number] [address] [place] [address], [place] [address] Sep, [facility] [address] [id number] [address] [place] [address], [place] [address] Sep, [facility] [address] [id number] [address] [place] [address], [place] [address] Sep, [facility] [address] [id number] [address] [place] [address], [place] [address] Sep, [facility] [address] [id number] [address] [place] [address], [place] [address] Sep, [facility] [address] [id number] [address] [place] [address], [place] [address] Sep, [facility] [address] [id number] [address] [place] [address], [place] [address] Sep, [facility] [address] [id number] [address] [place] [address], [place] [address] Sep, [facility] [address] [id number] [address] [place] [address], [place] [address] Sep, [facility] [address] [id number] [address] [place] [address], [place] [address] Sep, [facility] [address] [id number] [address] [place] [address], [place] [address] Sep, [facility] [address] [id number] [address] [place] [address], [place] [address] Sep, [facility] [address] [id number] [address] [place] [address], [place] [address] Sep, [facility] [address] [id number] [address] [place] [address], [place] [address] Sep, [facility] [address] [id number] [address] [place] [address], [place] [address] Sep, [facility] [address] [id number] [address] [place] [address], [place] [address] Sep, [facility] [address] [id number] [address] [place] [address], [place] [address] Sep, [facility] [address] [id number] [address] [place] [address], [place] [address] Sep, [facility] [address] [id number] [address] [place] [address], [place] [address] Sep, [facility] [address] [id number] [address] [place] [address], [place] [address] Sep, [facility] [address] [id number] [address] [place] [address], [place] [address] Aug, [facility] [address] [id number] [address] [place] [address], [place] [address] Aug, [facility] [address] [id number] [address] [place] [address], [place] [address] Aug, [facility] [address] [id number] [address] [place] [address], [place] [address] Aug, [facility] [address] [id number] [address] [place] [address], [place] [address] Aug, [facility] [address] [id number] [address] [place] [address], [place] [address] Aug, [facility] [address] [id number] [address] [place] [address], [place] [address] Aug, [facility] [address] [id number] [address] [place] [address], [place] [address] Aug, [facility] [address] [id number] [address] [place] [address], [place] [address] Aug, [facility] [address] [id number] [address] [place] [address], [place] [address] Aug, [facility] [address] [id number] [address] [place] [address], [place] [address] Aug, [facility] [address] [id number] [address] [place] [address] Aug, [facility] [address] [id number] [address] [place] [address] Aug, [facility] [address] [id number] [address] [place] [address] Aug, [facility] [address] [id number] [address] [place] [address], [place] [address] Aug, [facility] [address] [id number] [address] [place] [address], [place] [address] Aug, [facility] [address] [id number] [address] [place] [address] Aug, [facility] [address] [id number] [address] [place] [id number] 17 Aug, 2013 [facility] [address] [id number] [address] [place] [address], [place] [address] 14 Aug, 2013 [facility] [address] [id number] [address] [place] [id number] 14 Aug, 2013 [facility] [address] [id number] [address] [place] [address], [place] [address] 09 Aug, 2013 [facility] [address] [id number] [address] [place] [id number] 09 Aug, 2013 [facility] [address] [id number] [address] [place] [address], [place] [address] Aug, 2013 [facility] [address] [id number] [address] [place] [address], [place] [address] Aug, 2013 [facility] [address] [id number] [address] [place] [id number] 08 Aug, 2013 [facility] [address] [id number] [address] [place] [id number] 07 Aug, 2013 [facility] [address] [id number] [address] [place] [address] Aug, 2013 [facility] [address] [id number] [address] [place] [address] Aug, 2013 [facility] [address] [id number] [address] [place] [id number] 07 Aug, 2013 [facility] [address] [id number] [address] [place] [id number] 30 Jul, 2013 [facility] [address] [id number] [address] [place] [id number] 30 Jul, 2013 [facility] [address] [id number] [address] [place] [id number] 29 Jul, 2013 [facility] [address] [id number] [address] [place] [id number] 29 Jul, 2013 [facility] [address] [id number] [facility] [place] [address] 19 Jul, 2013 [facility] [address] [id number] [facility] [place] [address] 19 Jul, 2013 [facility] [address] [id number] [facility] [place] [address] 18 Jul, 2013 [facility] [address] [id number] [facility] [place] [address] 18 Jul, 2013 [facility] [address] [id number] [facility] [place] [address] 17 Jul, 2013 [facility] [address] [id number] [address] [place] [address], [place] [address] 17 Jul, 2013 [facility] [address] [id number] [address] [place] [address], [place] [address] 10 Jul, 2013 [facility] [address] [id number] [address] [place] [address], [place] [address] 10 Jul, 2013 [facility] [address] [id number] [address] [place] [address], [place] [address] Jun, [facility] [address] [id number] [address] [place] [address], [place] [address] Jun, [facility] [address] [id number] [address] [place] [address], [place] [address] Jun, [facility] [address] [id number] [address] [place] [address], [place] [address] Jun, [facility] [address] [id number] [address] [place] [address], [place] [address] Jun, [facility] [address] [id number] [address] [place] [address], [place] [address] Jun, [facility] [address] [id number] [address] [place] [address], [place] [address] Jun, [facility] [address] [id number] [address] [place], [place] [address] [address] Jun, [facility] [place] [address] [id number] [address] [place] [address] Jun, [facility] [place] [address] [id number] [address] [place] [address] Jun, [facility] [place] [address] [id number] [address] [place] [address] Jun, [facility] [place] [address] [id number] [address] [place] [address] Jun, [facility] [place] [address] [id number] [address] [place] [address] May, [facility] [place] [address] [id number] [address] [place] [address] May, [facility] [place] [address] [facility] [id number] [address] [place] [address] May, IMMUNIZATIONS No Known Immunizations SOCIAL HISTORY [...]
--- OUTSIDE RECORDS SUMMARY | 2020-05-03 14:34 | XMS REPORT ---
Author Author Tracee AVILA Organization [facility] Address [address] [place] [address] Care Team Providers Care Sander Machine Name Role Phone SARAI AVILA Unavailable PROBLEMS Type Condition ICD9-CM Code OPK78-QH Code Onset Dates Condition S tatus SNOMED Code Problem Primary insomnia F51.01 Active 397 2004 Problem Breast pain N64.4 Active 04308791 Problem History of renal transplant Z94.0 Ac tive 571247522 Problem Violation of controlled substance agreement Z91.14 Active 178656546 Problem Mild intermittent asthma without complication J45. 20 Active 805218201 Problem Screening breast examination Z12.39 A ctive 923255670 Problem Irritable bowel syndrome without diarrhea K58.9 Active 16684008 Problem Irritable bowel syndrome with diarrhea K58.0 Active 572541131 ALLERGIES No Information ENCOUNTERS Encounter Location Date Diagnosis [facility] [id number] [place] [address] [id number] March, Dental examination Z01.20 [facility] [address] [id number] [address] [place] [address] [id number] Feb, Caries K02.9 [facility] [address] [id number] [address] [place] [address] [id number] Feb, Caries K02.9 [facility] [address] [id number] [address] [place] [address] [id number] Jan, [facility] [address] [id number] [address] [place] [address] [id number] Jan, Caries K02.9 [facility] [address] [id number] [address] [place] [address] [id number] Dec, [facility] [address] [id number] [address] [place] [address] [id number] Dec, 2018 Dental examination Z01.20 an d Caries K02.9 [place] [address] [address] 14 Sep, 2016 Dental examination Z01.20 [place] [address] [place] [id number] [address] [place] [address] 08 Jan, 2016 Nausea R11.0 ; Irritable bow el syndrome without diarrhea K58.9 and History of renal transplant Z94.0 [place] [address] [id number] 2015 [place] [address] [address] 11 Dec, 2015 Breast pain N64.4 ; Screenin g breast examination Z12.39 and Mild intermittent asthma without complication J45.20 [place] [address] [address] 10 Dec, 2015 [place] [address] [address] 09 Dec, 2015 Kidney transplant status Z94 .0 ; Personal history of immunosupression therapy Z92.25 ; Recurrent UTI N39.0 and Encounter for screening, unspecified Z13.9 [place] [address] [place] [id number] [address] [place] [address] Oct, [place] [address] [place] [id number] [address] [place] [address] Oct, [place] [address] [place] [id number] [address] [place] [address] Oct, [place] [address] [address] Oct, Hiatal hernia K44.9 and Atyp ical chest pain R07.89 [place] [address] [place] [id number] [address] [place] [address] Oct, [place] [address] [id number] [address] [place] [address] Sep, Kidney replaced by transplan t V42.0 and Bilateral low back pain with sciatica, sciatica laterality unspecified M54.40 [facility] [address] [id number] [address] [place] [address] Sep, [facility] [address] [id number] [address] [place] [address] Sep, Kidney replaced by transplan t V42.0 ; Bilateral low back pain with sciatica, sciatica laterality unspecified M54.40 ; Anxiety F41.9 and Primary insomnia F51.01 [facility] [address] [id number] [address] [place] [address] Aug, [facility] [address] [id number] [address] [place] [address] Aug, [facility] [address] [id number] [address] [place] [address] Aug, Kidney transplant status Z94 .0 ; Personal history of immunosupression therapy Z92.25 ; Recurrent urinary tract infection N39.0 and Screening Z13.9 [facility] [address] [id number] [address] [place] [address] Aug, [facility] [address] [id number] [address] [place] [address] Aug, Encounter for aftercare foll owing kidney transplant Z48.22 ; Chronic radicular pain of lower back M54.16 and PND (post-nasal drip) R09.82 [facility] [address] [id number] [address] [place] [address] Jul, [facility] [address] [id number] [address] [place] [address] Jul, [facility] [address] [id number] [address] [place] [address] Jul, [facility] [address] [id number] [address] [place] [address] Jul, Kidney replaced by transplan t V42.0 ; Depressive disorder, not elsewhere classified 311 ; Anxiety state, unspecified 300.00 ; Insomnia, unspecified 780.52 ; Irritable bowel syndrome 564.1 ; Chronic lumbar pain 724.2 and GERD (gastroesophageal reflux disease) 530.81 [facility] [address] [id number] [address] [place] [address] Jul, [facility] [address] [id number] [address] [place] [address] Jun, [facility] [address] [id number] [address] [place] [address] Jun, [facility] [address] [facility] [id number] [address] [place] [address] Jun, [facility] [address] [facility] [id number] [address] [place] [address] Jun, Kidney replaced by transplan t V42.0 [facility] [address] [facility] [id number] [address] [place] [address] May, [facility] [address] [facility] [id number] [address] [place] [address] May, Depression with anxiety 300. 4 and Skin infection 686.9 [facility] [address] [facility] [id number] [address] [place] [address] May, [facility] [address] [id number] [address] [place] [address] May, Kidney replaced by transplan t V42.0 ; Recurrent UTI (urinary tract infection) 599.0 and Absence of menstruation 626.0 [facility] [address] [facility] [id number] [address] [place] [address] May, [facility] [address] [facility] [id number] [address] [place] [address] May, Depression with anxiety 300. 4 [place] [address] [place] [id number] [address] [place] [address] May, [facility] [address] [place] [id number] [address] [place] [address] Apr, [facility] [address] [place] [id number] [address] [place] [address] Apr, [facility] [address] [place] [id number] [address] [place] [address] Apr, Depression, major, recurrent , mild 296.31 [facility] [address] [place] [id number] [address] [place] [address] Apr, Depression, major, recurrent , mild 296.31 [place] [address] [place] [id number] [address] [place] [address] Apr, Cervicalgia 723.1 ; Lumbago 724.2 ; Anxiety state, unspecified 300.00 ; Nausea 787.02 ; 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 ; Recurrent UTI (urinary tract infection) 599.0 and Knee pain, bilateral 719.46 [place] [address] [place] [id number] [address] [place] [address] March, Depression, major, recurrent , mild 296.31 [facility] [address] [place] [id number] [address] [place] [address] March, [facility] [address] [place] [id number] [address] [place] [address] March, [facility] [address] [place] [id number] [address] [place] [address] March, Lumbago 724.2 ; Insomnia, un specified 780.52 ; Depressive disorder, not elsewhere classified 311 ; 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 ; Anxiety 300.00 ; Allergic rhinitis 477.9 and GERD (gastroesophageal reflux disease) 530.81 [facility] [address] [place] [id number] [address] [place] [address] Feb, [facility] [address] [id number] [address] [place] [address], [place] [address] Feb, [facility] [address] [id number] [address] [place] [address], [place] [address] Jan, [facility] [address] [id number] [address] [place] [address], [place] [address] Jan, [facility] [address] [id number] [address] [place] [address], [place] [address] Jan, [facility] [address] [id number] [address] [place] [address], [place] [address] Jan, [facility] [address] [id number] [address] [place] [address], [place] [address] Dec, [facility] [address] [id number] [address] [place] [address], [place] [address] Dec, [facility] [address] [id number] [address] [place] [address], [place] [address] Dec, [facility] [address] [id number] [address] [place] [address], [place] [address] Dec, [facility] [address] [id number] [address] [place] [address], [place] [address] Dec, [facility] [address] [id number] [address] [place] [address], [place] [address] Dec, [facility] [address] [id number] [address] [place] [address], [place] [address] Dec, [facility] [address] [id number] [address] [place] [address], [place] [address] Nov, [facility] [address] [id number] [address] [place] [address], [place] [address] Nov, [facility] [address] [id number] [address] [place] [address], [place] [address] Nov, [facility] [address] [id number] [address] [place] [address] [address] Nov, [facility] [address] [id number] [address] [place] [address], [place] [address] Nov, [facility] [address] [id number] [address] [place] [address], [place] [address] Nov, [facility] [address] [id number] [address] [place] [address], [place] [address] Nov, [facility] [address] [id number] [address] [place] [address], [place] [address] Nov, [facility] [address] [id number] [address] [place] [address], [place] [address] Nov, [facility] [address] [id number] [address] [place] [address], [place] [address] Nov, [facility] [address] [id number] [address] [place] [address], [place] [address] Nov, [facility] [address] [id number] [address] [place] [address], [place] [address] Nov, [facility] [address] [id number] [address] [place] [address], [place] [address] Nov, [facility] [address] [id number] [address] [place] [address], [place] [address] Nov, [facility] [address] [id number] [address] [place] [address], [place] [address] Nov, [facility] [address] [id number] [address] [place] [address], [place] [address] Nov, [facility] [address] [id number] [address] [place] [address], [place] [address] Nov, [facility] [address] [id number] [address] [place] [address], [place] [address] Nov, [facility] [address] [id number] [address] [place] [address], [place] [address] Nov, [facility] [address] [id number] [address] [place] [address], [place] [address] Nov, [facility] [address] [id number] [address] [place] [address], [place] [address] Nov, [facility] [address] [id number] [address] [place] [address], [place] [address] Nov, [facility] [address] [id number] [address] [place] [address], [place] [address] Nov, [facility] [address] [id number] [address] [place] [address], [place] [address] Nov, [facility] [address] [id number] [address] [place] [address], [place] [address] Nov, [facility] [address] [id number] [address] [place] [address], [place] [address] Nov, [facility] [address] [id number] [address] [place] [address], [place] [address] Nov, [facility] [address] [id number] [address] [place] [address], [place] [address] Nov, [facility] [address] [id number] [address] [place] [address], [place] [address] Nov, [facility] [address] [id number] [address] [place] [address], [place] [address] Oct, [facility] [address] [id number] [address] [place] [address], [place] [address] Oct, [facility] [address] [id number] [address] [place] [address], [place] [address] Oct, [facility] [address] [id number] [address] [place] [address], [place] [address] Oct, [facility] [address] [id number] [address] [place] [address], [place] [address] Oct, [facility] [address] [id number] [address] [place] [address], [place] [address] Oct, [facility] [address] [id number] [address] [place] [address], [place] [address] Oct, [facility] [address] [id number] [address] [place] [address], [place] [address] Oct, [facility] [address] [id number] [address] [place] [address], [place] [address] Oct, [facility] [address] [id number] [address] [place] [address], [place] [address] Oct, [facility] [address] [id number] [address] [place] [address], [place] [address] Oct, [facility] [address] [id number] [address] [place] [address], [place] [address] Oct, [facility] [address] [id number] [address] [place] [address], [place] [address] Oct, [facility] [address] [id number] [address] [place] [address], [place] [address] Oct, [facility] [address] [id number] [address] [place] [address], [place] [address] Oct, [facility] [address] [id number] [address] [place] [address], [place] [address] Oct, [facility] [address] [id number] [address] [place] [address], [place] [address] Oct, [facility] [address] [id number] [address] [place] [address], [place] [address] Oct, [facility] [address] [id number] [address] [place] [address], [place] [address] Oct, [facility] [address] [id number] [address] [place] [address], [place] [address] 05 Oct, 2014 [facility] [address] [id number] [address] [place] [address], [place] [address] 05 Oct, 2014 [facility] [address] [id number] [address] [place] [address], [place] [address] Oct, [facility] [address] [id number] [address] [place] [address], [place] [address] Oct, [facility] [address] [id number] [address] [place] [address], [place] [address] Sep, [facility] [address] [id number] [address] [place] [address], [place] [address] Sep, [facility] [address] [id number] [address] [place] [address], [place] [address] Sep, [facility] [address] [id number] [address] [place] [address], [place] [address] Sep, [facility] [address] [id number] [address] [place] [address], [place] [address] Sep, [facility] [address] [id number] [address] [place] [address], [place] [address] Sep, [facility] [address] [id number] [address] [place] [address], [place] [address] Sep, [facility] [address] [id number] [address] [place] [address], [place] [address] Sep, [facility] [address] [id number] [address] [place] [address], [place] [address] Sep, [facility] [address] [id number] [address] [place] [address], [place] [address] Sep, [facility] [address] [id number] [address] [place] [address], [place] [address] Sep, [facility] [address] [id number] [address] [place] [address], [place] [address] Sep, [facility] [address] [id number] [address] [place] [address], [place] [address] Sep, [facility] [address] [id number] [address] [place] [address], [place] [address] Sep, [facility] [address] [id number] [address] [place] [address], [place] [address] Sep, [facility] [address] [id number] [address] [place] [address], [place] [address] Sep, [facility] [address] [id number] [address] [place] [address], [place] [address] Sep, [facility] [address] [id number] [address] [place] [address], [place] [address] Sep, [facility] [address] [id number] [address] [place] [address], [place] [address] Sep, [facility] [address] [id number] [address] [place] [address], [place] [address] Sep, [facility] [address] [id number] [address] [place] [address], [place] [address] Sep, [facility] [address] [id number] [address] [place] [address], [place] [address] Sep, [facility] [address] [id number] [address] [place] [address], [place] [address] Sep, [facility] [address] [id number] [address] [place] [address], [place] [address] Sep, [facility] [address] [id number] [address] [place] [address], [place] [address] Sep, [facility] [address] [id number] [address] [place] [address], [place] [address] Sep, [facility] [address] [id number] [address] [place] [address], [place] [address] Sep, [facility] [address] [id number] [address] [place] [address], [place] [address] Sep, [facility] [address] [id number] [address] [place] [address], [place] [address] Aug, [facility] [address] [id number] [address] [place] [address], [place] [address] Aug, [facility] [address] [id number] [address] [place] [address], [place] [address] Aug, [facility] [address] [id number] [address] [place] [address], [place] [address] Aug, [facility] [address] [id number] [address] [place] [address], [place] [address] Aug, [facility] [address] [id number] [address] [place] [address], [place] [address] Aug, [facility] [address] [id number] [address] [place] [address], [place] [address] Aug, [facility] [address] [id number] [address] [place] [address], [place] [address] Aug, [facility] [address] [id number] [address] [place] [address], [place] [address] Aug, [facility] [address] [id number] [address] [place] [address], [place] [address] Aug, [facility] [address] [id number] [address] [place] [address], [place] [address] Aug, [facility] [address] [id number] [address] [place] [address] Aug, [facility] [address] [id number] [address] [place] [address] Aug, [facility] [address] [id number] [address] [place] [address] Aug, [facility] [address] [id number] [address] [place] [address], [place] [address] Aug, [facility] [address] [id number] [address] [place] [address], [place] [address] Aug, [facility] [address] [id number] [address] [place] [address] Aug, [facility] [address] [id number] [address] [place] [address] 17 Aug, 2013 [facility] [address] [id number] [address] [place] [address], [place] [address] 14 Aug, 2013 [facility] [address] [id number] [address] [place] [address] 14 Aug, 2013 [facility] [address] [id number] [address] [place] [address], [place] [address] 09 Aug, 2013 [facility] [address] [id number] [address] [place] [address] 09 Aug, 2013 [facility] [address] [id number] [address] [place] [address], [place] [address] Aug, 2013 [facility] [address] [id number] [address] [place] [address], [place] [address] Aug, 2013 [facility] [address] [id number] [address] [place] [id number] 08 Aug, 2013 [facility] [address] [id number] [address] [place] [id number] 07 Aug, 2013 [facility] [address] [id number] [address] [place] [address] Aug, 2013 [facility] [address] [id number] [address] [place] [address] Aug, 2013 [facility] [address] [id number] [address] [place] [address] 07 Aug, 2013 [facility] [address] [id number] [address] [place] [address] 30 Jul, 2013 [facility] [address] [id number] [address] [place] [address] 30 Jul, 2013 [facility] [address] [id number] [address] [place] [address] 29 Jul, 2013 [facility] [address] [id number] [address] [place] [address] 29 Jul, 2013 [facility] [address] [id number] [facility] [place] [address] 19 Jul, 2013 [facility] [address] [id number] [facility] [place] [address] 19 Jul, 2013 [facility] [address] [id number] [facility] [place] [address] 18 Jul, 2013 [facility] [address] [id number] [facility] [place] [address] 18 Jul, 2013 [facility] [address] [id number] [facility] [place] [address] 17 Jul, 2013 [facility] [address] [id number] [address] [place] [address], [place] [address] 17 Jul, 2013 [facility] [address] [id number] [address] [place] [address], [place] [address] 10 Jul, 2013 [facility] [address] [id number] [address] [place] [address], [place] [address] 10 Jul, 2013 [facility] [address] [id number] [address] [place] [address], [place] [address] Jun, [facility] [address] [id number] 05 [place] [address], [place] [address] Jun, [facility] [address] [id number] [place] [address], [place] [address] Jun, [facility] [address] [id number] [address] [place] [address], [place] [address] Jun, [facility] [address] [id number] [address] [place] [address], [place] [address] Jun, [facility] [address] [id number] [address] [place] [address], [place] [address] Jun, [facility] [address] [id number] [address] [place] [address], [place] [address] Jun, [facility] [address] [id number] [address] [place] [address] [address] Jun, [facility] [address] [id number] [address] [place] [id number] Jun, [facility] [address] [id number] [address] [place] [id number] Jun, [facility] [address] [id number] [address] [place] [id number] Jun, [facility] [address] [id number] [address] [place] [id number] Jun, [facility] [address] [id number] [address] [place] [id number] May, [facility] [address] [id number] [address] [place] [id number] May, [facility] [address] [facility] [id number] [address] [place] [id number] May, IMMUNIZATIONS No Known Immunizations SOCIAL HISTORY [...]
--- OUTSIDE RECORDS SUMMARY | 2020-05-03 14:35 | XMS REPORT ---
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 20 Active 353368256 Problem Screening breast examination Z12.39 A ctive 417538538 Problem Irritable bowel syndrome without diarrhea K58.9 Active 95357896 Problem Irritable bowel syndrome with diarrhea K58.0 Active 300736681 ALLERGIES No Information ENCOUNTERS Encounter Location Date Diagnosis [facility] [address] [id number] [place] [address] [id number] March, Dental examination Z01.20 [facility] [address] [id number] [address] [place] [address] [id number] Feb, Caries K02.9 [facility] [address] [id number] [address] [place] [address] [id number] Feb, Caries K02.9 [facility] [address] [id number] [address] [place] [address] [id number] Jan, [facility] [address] [id number] [address] [place] [address] [id number] Jan, Caries K02.9 [facility] [address] [id number] [address] [place] [address] [id number] Dec, [facility] [address] [id number] [address] [place] [address] [id number] Dec, 2018 Dental examination Z01.20 an d Caries K02.9 [place] [address] [id number] 14 Sep, 2016 Dental examination Z01.20 [place] [address] [place] [id number] [address] [place] [id number] 08 Jan, 2016 Nausea R11.0 ; Irritable bow el syndrome without diarrhea K58.9 and History of renal transplant Z94.0 [place] [address] [id number] 2015 [place] [address] [id number] 11 Dec, 2015 Breast pain N64.4 ; Screenin g breast examination Z12.39 and Mild intermittent asthma without complication J45.20 [place] [address] [id number] 10 Dec, 2015 [place] [address] [id number] 09 Dec, 2015 Kidney transplant status Z94 .0 ; Personal history of immunosupression therapy Z92.25 ; Recurrent UTI N39.0 and Encounter for screening, unspecified Z13.9 [place] [address] [place] [id number] [address] [place] [address] Oct, [place] [address] [place] [id number] [address] [place] [address] Oct, [place] [address] [place] [id number] [address] [place] [address] Oct, [place] [address] [address] Oct, Hiatal hernia K44.9 and Atyp ical chest pain R07.89 [place] [address] [place] [id number] [address] [place] [address] Oct, [place] [address] [id number] [address] [place] [address] Sep, Kidney replaced by transplan t V42.0 and Bilateral low back pain with sciatica, sciatica laterality unspecified M54.40 [facility] [address] [id number] [address] [place] [address] Sep, [facility] [address] [id number] [address] [place] [address] Sep, Kidney replaced by transplan t V42.0 ; Bilateral low back pain with sciatica, sciatica laterality unspecified M54.40 ; Anxiety F41.9 and Primary insomnia F51.01 [facility] [address] [id number] [address] [place] [address] Aug, [facility] [address] [id number] [address] [place] [address] Aug, [facility] [address] [id number] [address] [place] [address] Aug, Kidney transplant status Z94 .0 ; Personal history of immunosupression therapy Z92.25 ; Recurrent urinary tract infection N39.0 and Screening Z13.9 [facility] [address] [id number] [address] [place] [address] Aug, [facility] [address] [id number] [address] [place] [address] Aug, Encounter for aftercare foll owing kidney transplant Z48.22 ; Chronic radicular pain of lower back M54.16 and PND (post-nasal drip) R09.82 [facility] [address] [id number] [address] [place] [address] Jul, [facility] [address] [id number] [address] [place] [address] Jul, [facility] [address] [id number] [address] [place] [address] Jul, [facility] [address] [id number] [address] [place] [address] Jul, Kidney replaced by transplan t V42.0 ; Depressive disorder, not elsewhere classified 311 ; Anxiety state, unspecified 300.00 ; Insomnia, unspecified 780.52 ; Irritable bowel syndrome 564.1 ; Chronic lumbar pain 724.2 and GERD (gastroesophageal reflux disease) 530.81 [facility] [address] [id number] [address] [place] [address] Jul, [facility] [address] [id number] [address] [place] [address] Jun, [facility] [address] [id number] [address] [place] [address] Jun, [facility] [address] [facility] [id number] [address] [place] [address] Jun, [facility] [address] [facility] [id number] [address] [place] [address] Jun, Kidney replaced by transplan t V42.0 [facility] [address] [facility] [id number] [address] [place] [address] May, [facility] [address] [facility] [id number] [address] [place] [address] May, Depression with anxiety 300. 4 and Skin infection 686.9 [facility] [address] [facility] [id number] [address] [place] [address] May, [facility] [address] [id number] [address] [place] [address] May, Kidney replaced by transplan t V42.0 ; Recurrent UTI (urinary tract infection) 599.0 and Absence of menstruation 626.0 [facility] [address] [facility] [id number] [address] [place] [address] May, [facility] [address] [facility] [id number] [address] [place] [address] May, Depression with anxiety 300. 4 [place] [address] [place] [id number] [address] [place] [address] May, [facility] [address] [place] [id number] [address] [place] [address] Apr, [facility] [address] [place] [id number] [address] [place] [address] Apr, [facility] [address] [place] [id number] [address] [place] [address] Apr, Depression, major, recurrent , mild 296.31 [facility] [address] [place] [id number] [address] [place] [address] Apr, Depression, major, recurrent , mild 296.31 [place] [address] [place] [id number] [address] [place] [address] Apr, Cervicalgia 723.1 ; Lumbago 724.2 ; Anxiety state, unspecified 300.00 ; Nausea 787.02 ; 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 ; Recurrent UTI (urinary tract infection) 599.0 and Knee pain, bilateral 719.46 [place] [address] [place] [id number] [address] [place] [address] March, Depression, major, recurrent , mild 296.31 [facility] [address] [place] [id number] [address] [place] [address] March, [facility] [address] [place] [id number] [address] [place] [address] March, [facility] [address] [place] [id number] [address] [place] [address] March, Lumbago 724.2 ; Insomnia, un specified 780.52 ; Depressive disorder, not elsewhere classified 311 ; 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 ; Anxiety 300.00 ; Allergic rhinitis 477.9 and GERD (gastroesophageal reflux disease) 530.81 [facility] [address] [place] [id number] [address] [place] [address] Feb, [facility] [address] [id number] [address] [address], [place] [address] Feb, [facility] [address] [id number] [address] [place] [address], [place] [address] Jan, [facility] [address] [id number] [address] [place] [address], [place] [address] Jan, [facility] [address] [id number] [address] [place] [address], [place] [address] Jan, [facility] [address] [id number] [address] [place] [address], [place] [address] Jan, [facility] [address] [id number] [address] [place] [address], [place] [address] Dec, [facility] [address] [id number] [address] [place] [address], [place] [address] Dec, [facility] [address] [id number] [address] [place] [address], [place] [address] Dec, [facility] [address] [id number] [address] [place] [address], [place] [address] Dec, [facility] [address] [id number] [address] [place] [address], [place] [address] Dec, [facility] [address] [id number] [address] [place] [address], [place] [address] Dec, [facility] [address] [id number] [address] [place] [address], [place] [address] Dec, [facility] [address] [id number] [address] [place] [address], [place] [address] Nov, [facility] [address] [id number] [address] [place] [address], [place] [address] Nov, [facility] [address] [id number] [address] [place] [address], [place] [address] Nov, [facility] [address] [id number] [address] [place] [address] [address] Nov, [facility] [address] [id number] [address] [place] [address], [place] [address] Nov, [facility] [address] [id number] [address] [place] [address], [place] [address] Nov, [facility] [address] [id number] [address] [place] [place] [address], [place] [address] Nov, [facility] [address] [id number] [address] [place] [address], [place] [address] Nov, [facility] [address] [id number] [address] [place] [address], [place] [address] Nov, [facility] [address] [id number] [address] [place] [address], [place] [address] Nov, [facility] [address] [id number] [address] [place] [address], [place] [address] Nov, [facility] [address] [id number] [address] [place] [address], [place] [address] Nov, [facility] [address] [id number] [address] [place] [address], [place] [address] Nov, [facility] [address] [id number] [address] [place] [address], [place] [address] Nov, [facility] [address] [id number] [address] [place] [address], [place] [address] Nov, [facility] [address] [id number] [address] [place] [address], [place] [address] Nov, [facility] [address] [id number] [address] [place] [address], [place] [address] Nov, [facility] [address] [id number] [address] [place] [address], [place] [address] Nov, [facility] [address] [id number] [address] [place] [address], [place] [address] Nov, [facility] [address] [id number] [address] [place] [address], [place] [address] Nov, [facility] [address] [id number] [address] [place] [address], [place] [address] Nov, [facility] [address] [id number] [address] [place] [address], [place] [address] Nov, [facility] [address] [id number] [address] [place] [place] [address], [place] [address] Nov, [facility] [address] [id number] [address] [place] [address], [place] [address] Nov, [facility] [address] [id number] [address] [place] [address], [place] [address] Nov, [facility] [address] [id number] [address] [place] [address], [place] [address] Nov, [facility] [address] [id number] [address] [place] [place] [address], [place] [address] Nov, [facility] [address] [id number] [address] [place] [address], [place] [address] Nov, [facility] [address] [id number] [address] [place] [address], [place] [address] Nov, [facility] [address] [id number] [address] [place] [address], [place] [address] Oct, [facility] [address] [id number] [address] [place] [place] [address], [place] [address] Oct, [facility] [address] [id number] [address] [place] [place] [address], [place] [address] Oct, [facility] [address] [id number] [address] [place] [address], [place] [address] Oct, [facility] [address] [id number] [address] [place] [place] [address], [place] [address] Oct, [facility] [address] [id number] [address] [place] [address], [place] [address] Oct, [facility] [address] [id number] [address] [place] [place] [address], [place] [address] Oct, [facility] [address] [id number] [address] [place] [address], [place] [address] Oct, [facility] [address] [id number] [address] [place] [address], [place] [address] Oct, [facility] [address] [id number] [address] [place] [address], [place] [address] Oct, [facility] [address] [id number] [address] [place] [address], [place] [address] Oct, [facility] [address] [id number] [address] [place] [address], [place] [address] Oct, [facility] [address] [id number] [address] [place] [address], [place] [address] Oct, [facility] [address] [id number] [address] [place] [address], [place] [address] Oct, [facility] [address] [id number] [address] [place] [address], [place] [address] Oct, [facility] [address] [id number] [address] [place] [address], [place] [address] Oct, [facility] [address] [id number] [address] [place] [address], [place] [address] Oct, [facility] [address] [id number] [address] [place] [address], [place] [address] Oct, [facility] [address] [id number] [address] [place] [address], [place] [address] Oct, [facility] [address] [id number] [address] [place] [address], [place] [address] 05 Oct, 2014 [facility] [address] [id number] [address] [place] [address], [place] [address] 05 Oct, 2014 [facility] [address] [id number] [address] [place] [address], [place] [address] Oct, [facility] [address] [id number] [address] [place] [address], [place] [address] Oct, [facility] [address] [id number] [address] [place] [address], [place] [address] Sep, [facility] [address] [id number] [address] [place] [address], [place] [address] Sep, [facility] [address] [id number] [address] [place] [address], [place] [address] Sep, [facility] [address] [id number] [address] [place] [address], [place] [address] Sep, [facility] [address] [id number] [address] [place] [address], [place] [address] Sep, [facility] [address] [id number] [address] [place] [address], [place] [address] Sep, [facility] [address] [id number] [address] [place] [address], [place] [address] Sep, [facility] [address] [id number] [address] [place] [address], [place] [address] Sep, [facility] [address] [id number] [address] [place] [address], [place] [address] Sep, [facility] [address] [id number] [address] [place] [address], [place] [address] Sep, [facility] [address] [id number] [address] [place] [address], [place] [address] Sep, [facility] [address] [id number] [address] [place] [address], [place] [address] Sep, [facility] [address] [id number] [address] [place] [address], [place] [address] Sep, [facility] [address] [id number] [address] [place] [address], [place] [address] Sep, [facility] [address] [id number] [address] [place] [address], [place] [address] Sep, [facility] [address] [id number] [address] [place] [address], [place] [address] Sep, [facility] [address] [id number] [address] [place] [address], [place] [address] Sep, [facility] [address] [id number] [address] [place] [address], [place] [address] Sep, [facility] [address] [id number] [address] [place] [address], [place] [address] Sep, [facility] [address] [id number] [address] [place] [address], [place] [address] Sep, [facility] [address] [id number] [address] [place] [address], [place] [address] Sep, [facility] [address] [id number] [address] [place] [address], [place] [address] Sep, [facility] [address] [id number] [address] [place] [address], [place] [address] Sep, [facility] [address] [id number] [address] [place] [address], [place] [address] Sep, [facility] [address] [id number] [address] [place] [address], [place] [address] Sep, [facility] [address] [id number] [address] [place] [address], [place] [address] Sep, [facility] [address] [id number] [address] [place] [address], [place] [address] Sep, [facility] [address] [id number] [address] [place] [address], [place] [address] Sep, [facility] [address] [id number] [address] [place] [address], [place] [address] Aug, [facility] [address] [id number] [address] [place] [address], [place] [address] Aug, [facility] [address] [id number] [address] [place] [address], [place] [address] Aug, [facility] [address] [id number] [address] [place] [address], [place] [address] Aug, [facility] [address] [id number] [address] [place] [address], [place] [address] Aug, [facility] [address] [id number] [address] [place] [address], [place] [address] Aug, [facility] [address] [id number] [address] [place] [address], [place] [address] Aug, [facility] [address] [id number] [address] [place] [address], [place] [address] Aug, [facility] [address] [id number] [address] [place] [address], [place] [address] Aug, [facility] [address] [id number] [address] [place] [address], [place] [address] Aug, [facility] [address] [id number] [address] [place] [address], [place] [address] Aug, [facility] [address] [id number] [address] [place] [address] Aug, [facility] [address] [id number] [address] [place] [address] Aug, [facility] [address] [id number] [address] [place] [address] Aug, [facility] [address] [id number] [address] [place] [address], [place] [address] Aug, [facility] [address] [id number] [address] [place] [address], [place] [address] Aug, [facility] [address] [id number] [address] [place] [address] Aug, [facility] [address] [id number] [address] [place] [id number] 17 Aug, 2013 [facility] [address] [id number] [address] [place] [address], [place] [address] 14 Aug, 2013 [facility] [address] [id number] [address] [place] [address] 14 Aug, 2013 [facility] [address] [id number] [address] [place] [address], [place] [address] 09 Aug, 2013 [facility] [address] [id number] [address] [place] [id number] 09 Aug, 2013 [facility] [address] [id number] [address] [place] [address], [place] [address] Aug, 2013 [facility] [address] [id number] [address] [place] [address], [place] [address] Aug, 2013 [facility] [address] [id number] [address] [place] [id number] 08 Aug, 2013 [facility] [address] [id number] [address] [place] [id number] 07 Aug, 2013 [facility] [address] [id number] [address] [place] [address] Aug, 2013 [facility] [address] [id number] [address] [place] [address] Aug, 2013 [facility] [address] [id number] [address] [place] [id number] 07 Aug, 2013 [facility] [address] [id number] [address] [place] [address] 30 Jul, 2013 [facility] [address] [id number] [address] [place] [address] 30 Jul, 2013 [facility] [address] [id number] [address] [place] [id number] 29 Jul, 2013 [facility] [address] [id number] [address] [place] [id number] 29 Jul, 2013 [facility] [address] [id number] [facility] [place] [address] 19 Jul, 2013 [facility] [address] [id number] [facility] [place] [address] 19 Jul, 2013 [facility] [address] [id number] [facility] [place] [address] 18 Jul, 2013 [facility] [address] [id number] [facility] [place] [address] 18 Jul, 2013 [facility] [address] [id number] [facility] [place] [address] 17 Jul, 2013 [facility] [address] [id number] [address] [place] [address], [place] [address] 17 Jul, 2013 [facility] [address] [id number] [address] [place] [address], [place] [address] 10 Jul, 2013 [facility] [address] [id number] [address] [place] [address], [place] [address] 10 Jul, 2013 [facility] [address] [id number] [address] [place] [address], [place] [address] Jun, [facility] [address] [id number] [address] [place] [address], [place] [address] Jun, [facility] [address] [id number] [address] [place] [address], [place] [address] Jun, [facility] [address] [id number] [address] [place] [address], [place] [address] Jun, [facility] [address] [id number] [address] [place] [address], [place] [address] Jun, [facility] [address] [id number] [address] [place] [address], [place] [address] Jun, [facility] [address] [id number] [address] [place] [address], [place] [address] Jun, [facility] [address] [id number] [address] [place] [address] [address] Jun, [facility] [address] [id number] [address] [place] [address] Jun, [facility] [address] [id number] [address] [place] [address] Jun, [facility] [address] [id number] [address] [place] [id number] Jun, [facility] [address] [id number] [address] [place] [address] Jun, [facility] [address] [id number] [address] [place] [address] May, [facility] [address] [id number] [address] [place] [address] May, [facility] [address] [id number] [address] [place] [phone] May, IMMUNIZATIONS No Known Immunizations SOCIAL HISTORY Never Assessed REASON FOR VISIT PLAN OF CARE VITAL SIGNS Height 67 in 2014-10-18 Weight 244.9 lbs 2014-10-18 Temperature 98.3 degrees Fahrenheit 2014-10-18 Heart Rate 84 bpm 2014-10-18 Respiratory Rate 20 2014-10-18 Blood pressure systolic 96 mmHg 2014-10-18 Blood pressure diastolic 68 mmHg 2014-10-18 MEDICATIONS Unknown Medications RESULTS No Results PROCEDURES Procedure Date Ordered Result Body Site COMPLETE CBC W/AUTO DIFF WBC Oct 18, 2014 THROMBOPLASTIN TIME, PARTIAL Oct 18, 2014 COMPREHEN METABOLIC PANEL Oct 18, 2014 VENIPUNCT, ROUTINE* Oct 18, 2014 INSTRUCTIONS MEDICATIONS ADMINISTERED No Known Medications [...]
--- OUTSIDE RECORDS SUMMARY | 2020-05-03 14:35 | XMS REPORT ---
Author Author Tracee AVILA Organization [facility] Address [address] [place] [address] Care Team Providers Care Curing Oven Tender Name Role Phone SARAI AVILA Unavailable PROBLEMS Type Condition ICD9-CM Code HCD16-QO Code Onset Dates Condition S tatus SNOMED Code Problem Primary insomnia F51.01 Active 397 2004 Problem Breast pain N64.4 Active 34638313 Problem History of renal transplant Z94.0 Ac tive 833885248 Problem Violation of controlled substance agreement Z91.14 Active 858834556 Problem Mild intermittent asthma without complication J45. 20 Active 369584426 Problem Screening breast examination Z12.39 A ctive 238036623 Problem Irritable bowel syndrome without diarrhea K58.9 Active 06144338 Problem Irritable bowel syndrome with diarrhea K58.0 Active 450910338 ALLERGIES No Information ENCOUNTERS Encounter Location Date Diagnosis [facility] [id number] [place] [address] [id number] March, Dental examination Z01.20 [facility] [address] [id number] [address] [place] [address] [id number] Feb, Caries K02.9 [facility] [address] [id number] [address] [place] [address] [id number] Feb, Caries K02.9 [facility] [address] [id number] [address] [place] [address] [id number] Jan, [facility] [address] [id number] [address] [place] [address] [id number] Jan, Caries K02.9 [facility] [address] [id number] [address] [place] [address] [id number] Dec, [facility] [address] [id number] [address] [place] [address] [id number] Dec, 2018 Dental examination Z01.20 an d Caries K02.9 [place] [address] [id number] 14 Sep, 2016 Dental examination Z01.20 [place] [address] [place] [id number] [address] [place] [id number] 08 Jan, 2016 Nausea R11.0 ; Irritable bow el syndrome without diarrhea K58.9 and History of renal transplant Z94.0 [place] [address] [id number] 2015 [place] [address] [id number] 11 Dec, 2015 Breast pain N64.4 ; Screenin g breast examination Z12.39 and Mild intermittent asthma without complication J45.20 [place] [address] [id number] 10 Dec, 2015 [place] [address] [id number] 09 Dec, 2015 Kidney transplant status Z94 .0 ; Personal history of immunosupression therapy Z92.25 ; Recurrent UTI N39.0 and Encounter for screening, unspecified Z13.9 [place] [address] [place] [id number] [address] [place] [phone] Oct, [place] [address] [place] [id number] [address] [place] [phone] Oct, [place] [address] [place] [id number] [address] [place] [phone] Oct, [place] [address] [id number] Oct, Hiatal hernia K44.9 and Atyp ical chest pain R07.89 [place] [address] [place] [id number] [address] [place] [phone] Oct, [place] [address] [id number] [address] [place] [address] Sep, Kidney replaced by transplan t V42.0 and Bilateral low back pain with sciatica, sciatica laterality unspecified M54.40 [facility] [address] [id number] [address] [place] [address] Sep, [facility] [address] [id number] [address] [place] [phone] Sep, Kidney replaced by transplan t V42.0 ; Bilateral low back pain with sciatica, sciatica laterality unspecified M54.40 ; Anxiety F41.9 and Primary insomnia F51.01 [facility] [address] [id number] [address] [place] [phone] Aug, [facility] [address] [id number] [address] [place] [address] Aug, [facility] [address] [id number] [address] [place] [address] Aug, Kidney transplant status Z94 .0 ; Personal history of immunosupression therapy Z92.25 ; Recurrent urinary tract infection N39.0 and Screening Z13.9 [facility] [address] [id number] [address] [place] [address] Aug, [facility] [address] [id number] [address] [place] [address] Aug, Encounter for aftercare foll owing kidney transplant Z48.22 ; Chronic radicular pain of lower back M54.16 and PND (post-nasal drip) R09.82 [facility] [address] [id number] [address] [place] [address] Jul, [facility] [address] [id number] [address] [place] [address] Jul, [facility] [address] [id number] [address] [place] [address] Jul, [facility] [address] [id number] [address] [place] [address] Jul, Kidney replaced by transplan t V42.0 ; Depressive disorder, not elsewhere classified 311 ; Anxiety state, unspecified 300.00 ; Insomnia, unspecified 780.52 ; Irritable bowel syndrome 564.1 ; Chronic lumbar pain 724.2 and GERD (gastroesophageal reflux disease) 530.81 [facility] [address] [id number] [address] [place] [address] Jul, [facility] [address] [id number] [address] [place] [phone] Jun, [facility] [address] [id number] [address] [place] [address] Jun, [facility] [address] [facility] [id number] [address] [place] [address] Jun, [facility] [address] [facility] [id number] [address] [place] [address] Jun, Kidney replaced by transplan t V42.0 [facility] [address] [facility] [id number] [address] [place] [address] May, [facility] [address] [facility] [id number] [address] [place] [address] May, Depression with anxiety 300. 4 and Skin infection 686.9 [facility] [address] [facility] [id number] [address] [place] [address] May, [facility] [address] [id number] [address] [place] [address] May, Kidney replaced by transplan t V42.0 ; Recurrent UTI (urinary tract infection) 599.0 and Absence of menstruation 626.0 [facility] [address] [facility] [id number] [address] [place] [address] May, [facility] [address] [facility] [id number] [address] [place] [address] May, Depression with anxiety 300. 4 [place] [address] [place] [id number] [address] [place] [address] May, [facility] [address] [place] [id number] [address] [place] [address] Apr, [facility] [address] [place] [id number] [address] [place] [address] Apr, [facility] [address] [place] [id number] [address] [place] [address] Apr, Depression, major, recurrent , mild 296.31 [facility] [address] [place] [id number] [address] [place] [address] Apr, Depression, major, recurrent , mild 296.31 [place] [address] [place] [id number] [address] [place] [address] Apr, Cervicalgia 723.1 ; Lumbago 724.2 ; Anxiety state, unspecified 300.00 ; Nausea 787.02 ; 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 ; Recurrent UTI (urinary tract infection) 599.0 and Knee pain, bilateral 719.46 [place] [address] [place] [id number] [address] [place] [address] March, Depression, major, recurrent , mild 296.31 [facility] [address] [place] [id number] [address] [place] [address] March, [facility] [address] [place] [id number] [address] [place] [address] March, [facility] [address] [place] [id number] [address] [place] [address] March, Lumbago 724.2 ; Insomnia, un specified 780.52 ; Depressive disorder, not elsewhere classified 311 ; 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 ; Anxiety 300.00 ; Allergic rhinitis 477.9 and GERD (gastroesophageal reflux disease) 530.81 [facility] [address] [place] [id number] [address] [place] [address] Feb, [facility] [address] [id number] [address] [place] [address], [place] [address] Feb, [facility] [address] [id number] [address] [place] [address], [place] [address] Jan, [facility] [address] [id number] [address] [place] [address], [place] [address] Jan, [facility] [address] [id number] [address] [place] [address], [place] [address] Jan, [facility] [address] [id number] [address] [place] [address], [place] [address] Jan, [facility] [address] [id number] [address] [place] [address], [place] [address] Dec, [facility] [address] [id number] [address] [place] [address], [place] [address] Dec, [facility] [address] [id number] [address] [place] [address], [place] [address] Dec, [facility] [address] [id number] [address] [place] [address], [place] [id number] Dec, [facility] [address] [id number] [address] [place] [address], [place] [address] Dec, [facility] [address] [id number] [address] [place] [address], [place] [address] Dec, [facility] [address] [id number] [address] [place] [address], [place] [id number] Dec, [facility] [address] [id number] [address] [place] [address], [place] [address] Nov, [facility] [address] [id number] [address] [place] [address], [place] [address] Nov, [facility] [address] [id number] [address] [place] [address], [place] [address] Nov, [facility] [address] [id number] [address] [place] [address] [address] Nov, [facility] [address] [id number] [address] [place] [address], [place] [address] Nov, [facility] [address] [id number] [address] [place] [address], [place] [address] Nov, [facility] [address] [id number] [address] [place] [address], [place] [id number] Nov, [facility] [address] [id number] [address] [place] [address], [place] [address] Nov, [facility] [address] [id number] [address] [place] [address], [place] [address] Nov, [facility] [address] [id number] [address] [place] [address], [place] [address] Nov, [facility] [address] [id number] [address] [place] [address], [place] [address] Nov, [facility] [address] [id number] [address] [place] [address], [place] [id number] Nov, [facility] [address] [id number] [address] [place] [address], [place] [address] Nov, [facility] [address] [id number] [address] [place] [address], [place] [address] Nov, [facility] [address] [id number] [address] [place] [address], [place] [address] Nov, [facility] [address] [id number] [address] [place] [address], [place] [address] Nov, [facility] [address] [id number] [address] [place] [address], [place] [address] Nov, [facility] [address] [id number] [address] [place] [address], [place] [address] Nov, [facility] [address] [id number] [address] [place] [address], [place] [address] Nov, [facility] [address] [id number] [address] [place] [address], [place] [address] Nov, [facility] [address] [id number] [address] [place] [address], [place] [address] Nov, [facility] [address] [id number] [address] [place] [address], [place] [address] Nov, [facility] [address] [id number] [address] [place] [address], [place] [address] Nov, [facility] [address] [id number] [address] [place] [address], [place] [address] Nov, [facility] [address] [id number] [address] [place] [address], [place] [address] Nov, [facility] [address] [id number] [address] [place] [address], [place] [address] Nov, [facility] [address] [id number] [address] [place] [address], [place] [address] Nov, [facility] [address] [id number] [address] [place] [address], [place] [address] Nov, [facility] [address] [id number] [address] [place] [address], [place] [address] Nov, [facility] [address] [id number] [address] [place] [address], [place] [address] Oct, [facility] [address] [id number] [address] [place] [address], [place] [address] Oct, [facility] [address] [id number] [address] [place] [address], [place] [address] Oct, [facility] [address] [id number] [address] [place] [address], [place] [address] Oct, [facility] [address] [id number] [address] [place] [address], [place] [address] Oct, [facility] [address] [id number] [address] [place] [address], [place] [address] Oct, [facility] [address] [id number] [address] [place] [address], [place] [address] Oct, [facility] [address] [id number] [address] [place] [address], [place] [address] Oct, [facility] [address] [id number] [address] [place] [address], [place] [address] Oct, [facility] [address] [id number] [address] [place] [address], [place] [id number] Oct, [facility] [address] [id number] [address] [place] [address], [place] [address] Oct, [facility] [address] [id number] [address] [place] [address], [place] [address] Oct, [facility] [address] [id number] [address] [place] [address], [place] [id number] Oct, [facility] [address] [id number] [address] [place] [address], [place] [address] Oct, [facility] [address] [id number] [address] [place] [address], [place] [address] Oct, [facility] [address] [id number] [address] [place] [address], [place] [address] Oct, [facility] [address] [id number] [address] [place] [address], [place] [address] Oct, [facility] [address] [id number] [address] [place] [address], [place] [address] Oct, [facility] [address] [id number] [address] [place] [address], [place] [address] Oct, [facility] [address] [id number] [address] [place] [address], [place] [id number] 05 Oct, 2014 [facility] [address] [id number] [address] [place] [address], [place] [address] 05 Oct, 2014 [facility] [address] [id number] [address] [place] [address], [place] [id number] Oct, [facility] [address] [id number] [address] [place] [address], [place] [address] Oct, [facility] [address] [id number] [address] [place] [address], [place] [address] Sep, [facility] [address] [id number] [address] [place] [address], [place] [address] Sep, [facility] [address] [id number] [address] [place] [address], [place] [address] Sep, [facility] [address] [id number] [address] [place] [address], [place] [address] Sep, [facility] [address] [id number] [address] [place] [address], [place] [address] Sep, [facility] [address] [id number] [address] [place] [address], [place] [address] Sep, [facility] [address] [id number] [address] [place] [address], [place] [address] Sep, [facility] [address] [id number] [address] [place] [address], [place] [address] Sep, [facility] [address] [id number] [address] [place] [address], [place] [address] Sep, [facility] [address] [id number] [address] [place] [address], [place] [address] Sep, [facility] [address] [id number] [address] [place] [address], [place] [address] Sep, [facility] [address] [id number] [address] [place] [address], [place] [address] Sep, [facility] [address] [id number] [address] [place] [address], [place] [address] Sep, [facility] [address] [id number] [address] [place] [address], [place] [id number] Sep, [facility] [address] [id number] [address] [place] [address], [place] [address] Sep, [facility] [address] [id number] [address] [place] [address], [place] [address] Sep, [facility] [address] [id number] [address] [place] [address], [place] [id number] Sep, [facility] [address] [id number] [address] [place] [address], [place] [address] Sep, [facility] [address] [id number] [address] [place] [address], [place] [address] Sep, [facility] [address] [id number] [address] [place] [address], [place] [address] Sep, [facility] [address] [id number] [address] [place] [address], [place] [address] Sep, [facility] [address] [id number] [address] [place] [address], [place] [address] Sep, [facility] [address] [id number] [address] [place] [address], [place] [address] Sep, [facility] [address] [id number] [address] [place] [address], [place] [id number] Sep, [facility] [address] [id number] [address] [place] [address], [place] [address] Sep, [facility] [address] [id number] [address] [place] [address], [place] [address] Sep, [facility] [address] [id number] [address] [place] [address], [place] [address] Sep, [facility] [address] [id number] [address] [place] [address], [place] [address] Sep, [facility] [address] [id number] [address] [place] [address], [place] [address] Aug, [facility] [address] [id number] [address] [place] [address], [place] [id number] Aug, [facility] [address] [id number] [address] [place] [address], [place] [id number] Aug, [facility] [address] [id number] [address] [place] [address], [place] [address] Aug, [facility] [address] [id number] [address] [place] [address], [place] [address] Aug, [facility] [address] [id number] [address] [place] [address], [place] [id number] Aug, [facility] [address] [id number] [address] [place] [address], [place] [address] Aug, [facility] [address] [id number] [address] [place] [address], [place] [id number] Aug, [facility] [address] [id number] [address] [place] [address], [place] [id number] Aug, [facility] [address] [id number] [address] [place] [address], [place] [id number] Aug, [facility] [address] [id number] [address] [place] [address], [place] [id number] Aug, [facility] [address] [id number] [address] [place] [id number] Aug, [facility] [address] [id number] [address] [place] [id number] Aug, [facility] [address] [id number] [address] [place] [id number] Aug, [facility] [address] [id number] [address] [place] [address], [place] [id number] Aug, [facility] [address] [id number] [address] [place] [address], [place] [id number] Aug, [facility] [address] [id number] [address] [place] [id number] Aug, [facility] [address] [id number] [address] [place] [id number] 17 Aug, 2013 [facility] [address] [id number] [address] [place] [address], [place] [id number] 14 Aug, 2013 [facility] [address] [id number] [address] [place] [id number] 14 Aug, 2013 [facility] [address] [id number] [address] [place] [address], [place] [id number] 09 Aug, 2013 [facility] [address] [id number] [address] [place] [id number] 09 Aug, 2013 [facility] [address] [id number] [address] [place] [address], [place] [id number] Aug, 2013 [facility] [address] [id number] [address] [place] [address], [place] [id number] Aug, 2013 [facility] [address] [id number] [address] [place] [id number] 08 Aug, 2013 [facility] [address] [id number] [address] [place] [id number] 07 Aug, 2013 [facility] [address] [id number] [address] [place] [id number] Aug, 2013 [facility] [address] [id number] [address] [place] [id number] Aug, 2013 [facility] [address] [id number] [address] [place] [id number] 07 Aug, 2013 [facility] [address] [id number] [address] [place] [id number] 30 Jul, 2013 [facility] [address] [id number] [address] [place] [id number] 30 Jul, 2013 [facility] [address] [id number] [address] [place] [id number] 29 Jul, 2013 [facility] [address] [id number] [address] [place] [id number] 29 Jul, 2013 [facility] [address] [id number] [facility] [place] [id number] 19 Jul, 2013 [facility] [address] [id number] [facility] [place] [id number] 19 Jul, 2013 [facility] [address] [id number] [facility] [place] [id number] 18 Jul, 2013 [facility] [address] [id number] [facility] [place] [id number] 18 Jul, 2013 [facility] [address] [id number] [facility] [place] [id number] 17 Jul, 2013 [facility] [address] [id number] [address] [place] [address], [place] [id number] 17 Jul, 2013 [facility] [address] [id number] [address] [place] [address], [place] [id number] 10 Jul, 2013 [facility] [address] [id number] [address] [place] [address], [place] [id number] 10 Jul, 2013 [facility] [address] [id number] [address] [place] [address], [place] [id number] Jun, [facility] [address] [id number] [address] [place] [address], [place] [id number] Jun, [facility] [address] [id number] [address] [place] [address], [place] [id number] Jun, [facility] [address] [id number] [address] [place] [address], [place] [id number] Jun, [facility] [address] [id number] [address] [place] [address], [place] [id number] Jun, [facility] [address] [id number] [address] [place] [address], [place] [id number] Jun, [facility] [address] [id number] [address] [place] [address], [place] [id number] Jun, [facility] [address] [id number] [address] [place] [id number] [address] Jun, [facility] [address] [id number] [address] [place] [id number] Jun, [facility] [address] [id number] [address] [place] [id number] Jun, [facility] [address] [id number] [address] [place] [id number] Jun, [facility] [address] [id number] [address] [place] [id number] Jun, [facility] [address] [id number] [address] [place] [id number] May, [facility] [address] [id number] [address] [place], [place] [id number] May, [facility] [address] [facility] [id number] [place] [id number] May, IMMUNIZATIONS No Known Immunizations SOCIAL HISTORY [...]
--- OUTSIDE RECORDS SUMMARY | 2020-05-03 14:35 | XMS REPORT ---
Author Author Tracee AVILA Organization [facility] Address [address] [place] [address] Care Team Providers Care Cyanide Pot Hardener Name Role Phone SARAI AVILA Unavailable PROBLEMS Type Condition ICD9-CM Code UCQ67-FM Code Onset Dates Condition S tatus SNOMED Code Problem Primary insomnia F51.01 Active 397 2004 Problem Breast pain N64.4 Active 75322482 Problem History of renal transplant Z94.0 Ac tive 089978725 Problem Violation of controlled substance agreement Z91.14 Active 769080338 Problem Mild intermittent asthma without complication J45. 20 Active 551772794 Problem Screening breast examination Z12.39 A ctive 617217619 Problem Irritable bowel syndrome without diarrhea K58.9 Active 75322044 Problem Irritable bowel syndrome with diarrhea K58.0 Active 903272457 ALLERGIES No Information ENCOUNTERS Encounter Location Date Diagnosis [facility] [address] [id number] [place] [address] [id number] March, Dental examination Z01.20 [facility] [address] [id number] [address] [place] [address] [id number] Feb, Caries K02.9 [facility] [address] [id number] [address] [place] [address] [id number] Feb, Caries K02.9 [facility] [address] [id number] [address] [place] [address] [id number] Jan, [facility] [address] [id number] [address] [place] [address] [id number] Jan, Caries K02.9 [facility] [address] [id number] [address] [place] [address] [id number] Dec, [facility] [address] [id number] [address] [place] [address] [id number] 18 Dec, 2018 Dental examination Z01.20 an d Caries K02.9 [place] [address] [address] 14 Sep, 2016 Dental examination Z01.20 [place] [address] [place] [id number] [address] [place] [address] 08 Jan, 2016 Nausea R11.0 ; Irritable bow el syndrome without diarrhea K58.9 and History of renal transplant Z94.0 [place] [address] [id number] 2015 [place] [address] [address] 11 Dec, 2015 Breast pain N64.4 ; Screenin g breast examination Z12.39 and Mild intermittent asthma without complication J45.20 [place] [address] [id number] 10 Dec, 2015 [place] [address] [address] 09 Dec, 2015 Kidney transplant status Z94 .0 ; Personal history of immunosupression therapy Z92.25 ; Recurrent UTI N39.0 and Encounter for screening, unspecified Z13.9 [place] [address] [place] [id number] [address] [place] [phone] Oct, [place] [address] [place] [id number] [address] [place] [phone] Oct, [place] [address] [place] [id number] [address] [place] [phone] Oct, [place] [address] [id number] Oct, Hiatal hernia K44.9 and Atyp ical chest pain R07.89 [place] [address] [place] [id number] [address] [place] [address] Oct, [place] [address] [id number] [address] [place] [address] Sep, Kidney replaced by transplan t V42.0 and Bilateral low back pain with sciatica, sciatica laterality unspecified M54.40 [facility] [address] [id number] [address] [place] [address] Sep, [facility] [address] [id number] [address] [place] [address] Sep, Kidney replaced by transplan t V42.0 ; Bilateral low back pain with sciatica, sciatica laterality unspecified M54.40 ; Anxiety F41.9 and Primary insomnia F51.01 [facility] [address] [id number] [address] [place] [phone] Aug, [facility] [address] [id number] [address] [place] [id number] Aug, [facility] [address] [id number] [address] [place] [address] Aug, Kidney transplant status Z94 .0 ; Personal history of immunosupression therapy Z92.25 ; Recurrent urinary tract infection N39.0 and Screening Z13.9 [facility] [address] [id number] [address] [place] [address] Aug, [facility] [address] [id number] [address] [place] [address] Aug, Encounter for aftercare foll owing kidney transplant Z48.22 ; Chronic radicular pain of lower back M54.16 and PND (post-nasal drip) R09.82 [facility] [address] [id number] [address] [place] [address] Jul, [facility] [address] [id number] [address] [place] [phone] Jul, [facility] [address] [id number] [address] [place] [phone] Jul, [facility] [address] [id number] [address] [place] [address] Jul, Kidney replaced by transplan t V42.0 ; Depressive disorder, not elsewhere classified 311 ; Anxiety state, unspecified 300.00 ; Insomnia, unspecified 780.52 ; Irritable bowel syndrome 564.1 ; Chronic lumbar pain 724.2 and GERD (gastroesophageal reflux disease) 530.81 [facility] [address] [id number] [address] [place] [address] Jul, [facility] [address] [id number] [address] [place] [address] Jun, [facility] [address] [id number] [address] [place] [address] Jun, [facility] [address] [facility] [id number] [address] [place] [phone] Jun, [facility] [address] [facility] [id number] [address] [place] [phone] Jun, Kidney replaced by transplan t V42.0 [facility] [address] [facility] [id number] [address] [place] [phone] May, [facility] [address] [facility] [id number] [address] [place] [address] May, Depression with anxiety 300. 4 and Skin infection 686.9 [facility] [address] [facility] [id number] [address] [place] [address] May, [facility] [address] [id number] [address] [place] [address] May, Kidney replaced by transplan t V42.0 ; Recurrent UTI (urinary tract infection) 599.0 and Absence of menstruation 626.0 [facility] [address] [facility] [id number] [address] [place] [address] May, [facility] [address] [facility] [id number] [address] [place] [address] May, Depression with anxiety 300. 4 [place] [address] [place] [id number] [address] [place] [address] May, [facility] [address] [place] [id number] [address] [place] [address] Apr, [facility] [address] [place] [id number] [address] [place] [address] Apr, [facility] [address] [place] [id number] [address] [place] [address] Apr, Depression, major, recurrent , mild 296.31 [facility] [address] [place] [id number] [address] [place] [address] Apr, Depression, major, recurrent , mild 296.31 [place] [address] [place] [id number] [address] [place] [address] Apr, Cervicalgia 723.1 ; Lumbago 724.2 ; Anxiety state, unspecified 300.00 ; Nausea 787.02 ; 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 ; Recurrent UTI (urinary tract infection) 599.0 and Knee pain, bilateral 719.46 [place] [address] [place] [id number] [address] [place] [address] March, Depression, major, recurrent , mild 296.31 [facility] [address] [place] [id number] [address] [place] [address] March, [facility] [address] [place] [id number] [address] [place] [address] March, [facility] [address] [place] [id number] [address] [place] [address] March, Lumbago 724.2 ; Insomnia, un specified 780.52 ; Depressive disorder, not elsewhere classified 311 ; 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 ; Anxiety 300.00 ; Allergic rhinitis 477.9 and GERD (gastroesophageal reflux disease) 530.81 [facility] [address] [place] [id number] [address] [place] [address] Feb, [facility] [address] [id number] [address] [place] [address], [place] [address] Feb, [facility] [address] [id number] [address] [place] [address], [place] [address] Jan, [facility] [address] [id number] [address] [place] [address], [place] [address] Jan, [facility] [address] [id number] [address] [place] [address], [place] [address] Jan, [facility] [address] [id number] [address] [place] [address], [place] [address] Jan, [facility] [address] [id number] [address] [place] [address], [place] [address] Dec, [facility] [address] [id number] [address] [place] [address], [place] [address] Dec, [facility] [address] [id number] [address] [place] [address], [place] [address] Dec, [facility] [address] [id number] [address] [place] [address], [place] [address] Dec, [facility] [address] [id number] [address] [place] [address], [place] [address] Dec, [facility] [address] [id number] [address] [place] [address], [place] [address] Dec, [facility] [address] [id number] [address] [place] [address], [place] [address] Dec, [facility] [address] [id number] [address] [place] [address], [place] [address] Nov, [facility] [address] [id number] [address] [place] [address], [place] [address] Nov, [facility] [address] [id number] [address] [place] [address], [place] [address] Nov, [facility] [address] [id number] [address] [place] [address] [address] Nov, [facility] [address] [id number] [address] [place] [address], [place] [address] Nov, [facility] [address] [id number] [address] [place] [address], [place] [address] Nov, [facility] [address] [id number] [address] [place] [address], [place] [address] Nov, [facility] [address] [id number] [address] [place] [address], [place] [address] Nov, [facility] [address] [id number] [address] [place] [address], [place] [address] Nov, [facility] [address] [id number] [address] [place] [address], [place] [address] Nov, [facility] [address] [id number] [address] [place] [address], [place] [address] Nov, [facility] [address] [id number] [address] [place] [address], [place] [address] Nov, [facility] [address] [id number] [address] [place] [address], [place] [address] Nov, [facility] [address] [id number] [address] [place] [address], [place] [address] Nov, [facility] [address] [id number] [address] [place] [address], [place] [address] Nov, [facility] [address] [id number] [address] [place] [address], [place] [address] Nov, [facility] [address] [id number] [address] [place] [address], [place] [address] Nov, [facility] [address] [id number] [address] [place] [address], [place] [address] Nov, [facility] [address] [id number] [address] [place] [address], [place] [address] Nov, [facility] [address] [id number] [address] [place] [address], [place] [address] Nov, [facility] [address] [id number] [address] [place] [address], [place] [address] Nov, [facility] [address] [id number] [address] [place] [address], [place] [address] Nov, [facility] [address] [id number] [address] [place] [address], [place] [address] Nov, [facility] [address] [id number] [address] [place] [address], [place] [address] Nov, [facility] [address] [id number] [address] [place] [address], [place] [address] Nov, [facility] [address] [id number] [address] [place] [address], [place] [address] Nov, [facility] [address] [id number] [address] [place] [address], [place] [address] Nov, [facility] [address] [id number] [address] [place] [address], [place] [address] Nov, [facility] [address] [id number] [address] [place] [address], [place] [address] Nov, [facility] [address] [id number] [address] [place] [address], [place] [address] Oct, [facility] [address] [id number] [address] [place] [address], [place] [address] Oct, [facility] [address] [id number] [address] [place] [address], [place] [address] Oct, [facility] [address] [id number] [address] [place] [address], [place] [address] Oct, [facility] [address] [id number] [address] [place] [address], [place] [address] Oct, [facility] [address] [id number] [address] [place] [address], [place] [address] Oct, [facility] [address] [id number] [address] [place] [address], [place] [address] Oct, [facility] [address] [id number] [address] [place] [address], [place] [address] Oct, [facility] [address] [id number] [address] [place] [address], [place] [address] Oct, [facility] [address] [id number] [address] [place] [address], [place] [address] Oct, [facility] [address] [id number] [address] [place] [address], [place] [address] Oct, [facility] [address] [id number] [address] [place] [address], [place] [address] Oct, [facility] [address] [id number] [address] [place] [address], [place] [address] Oct, [facility] [address] [id number] [address] [place] [address], [place] [address] Oct, [facility] [address] [id number] [address] [place] [address], [place] [address] Oct, [facility] [address] [id number] [address] [place] [address], [place] [address] Oct, [facility] [address] [id number] [address] [place] [address], [place] [address] Oct, [facility] [address] [id number] [address] [place] [address], [place] [address] Oct, [facility] [address] [id number] [address] [place] [address], [place] [address] Oct, [facility] [address] [id number] [address] [place] [address], [place] [address] 05 Oct, 2014 [facility] [address] [id number] [address] [place] [address], [place] [address] 05 Oct, 2014 [facility] [address] [id number] [address] [place] [address], [place] [address] Oct, [facility] [address] [id number] [address] [place] [address], [place] [address] Oct, [facility] [address] [id number] [address] [place] [address], [place] [address] Sep, [facility] [address] [id number] [address] [place] [address], [place] [address] Sep, [facility] [address] [id number] [address] [place] [address], [place] [address] Sep, [facility] [address] [id number] [address] [place] [address], [place] [address] Sep, [facility] [address] [id number] [address] [place] [address], [place] [address] Sep, [facility] [address] [id number] [address] [place] [address], [place] [address] Sep, [facility] [address] [id number] [address] [place] [address], [place] [address] Sep, [facility] [address] [id number] [address] [place] [address], [place] [address] Sep, [facility] [address] [id number] [address] [place] [address], [place] [address] Sep, [facility] [address] [id number] [address] [place] [address], [place] [address] Sep, [facility] [address] [id number] [address] [place] [address], [place] [address] Sep, [facility] [address] [id number] [address] [place] [address], [place] [address] Sep, [facility] [address] [id number] [address] [place] [address], [place] [address] Sep, [facility] [address] [id number] [address] [place] [address], [place] [address] Sep, [facility] [address] [id number] [address] [place] [address], [place] [address] Sep, [facility] [address] [id number] [address] [place] [address], [place] [address] Sep, [facility] [address] [id number] [address] [place] [address], [place] [address] Sep, [facility] [address] [id number] [address] [place] [address], [place] [address] Sep, [facility] [address] [id number] [address] [place] [address], [place] [address] Sep, [facility] [address] [id number] [address] [place] [address], [place] [address] Sep, [facility] [address] [id number] [address] [place] [address], [place] [address] Sep, [facility] [address] [id number] [address] [place] [address], [place] [address] Sep, [facility] [address] [id number] [address] [place] [address], [place] [address] Sep, [facility] [address] [id number] [address] [place] [address], [place] [address] Sep, [facility] [address] [id number] [address] [place] [address], [place] [address] Sep, [facility] [address] [id number] [address] [place] [address], [place] [address] Sep, [facility] [address] [id number] [address] [place] [address], [place] [address] Sep, [facility] [address] [id number] [address] [place] [address], [place] [address] Sep, [facility] [address] [id number] [address] [place] [address], [place] [address] Aug, [facility] [address] [id number] [address] [place] [address], [place] [address] Aug, [facility] [address] [id number] [address] [place] [address], [place] [address] Aug, [facility] [address] [id number] [address] [place] [address], [place] [address] Aug, [facility] [address] [id number] [address] [place] [address], [place] [address] Aug, [facility] [address] [id number] [address] [place] [address], [place] [id number] Aug, [facility] [address] [id number] [address] [place] [address], [place] [id number] Aug, [facility] [address] [id number] [address] [place] [address], [place] [id number] Aug, [facility] [address] [id number] [address] [place] [address], [place] [id number] Aug, [facility] [address] [id number] [address] [place] [address], [place] [id number] Aug, [facility] [address] [id number] [address] [place] [address], [place] [id number] Aug, [facility] [address] [id number] [address] [place] [id number] Aug, [facility] [address] [id number] [address] [place] [id number] Aug, [facility] [address] [id number] [address] [place] [id number] Aug, [facility] [address] [id number] [address] [place] [address], [place] [id number] Aug, [facility] [address] [id number] [address] [place] [address], [place] [id number] Aug, [facility] [address] [id number] [address] [place] [id number] Aug, [facility] [address] [id number] [address] [place] [id number] 17 Aug, 2013 [facility] [address] [id number] [address] [place] [address], [place] [id number] 14 Aug, 2013 [facility] [address] [id number] [address] [place] [id number] 14 Aug, 2013 [facility] [address] [id number] [address] [place] [address], [place] [id number] 09 Aug, 2013 [facility] [address] [id number] [address] [place] [id number] 09 Aug, 2013 [facility] [address] [id number] [address] [place] [address], [place] [id number] Aug, 2013 [facility] [address] [id number] [address] [place] [address], [place] [id number] Aug, 2013 [facility] [address] [id number] [address] [place] [id number] 08 Aug, 2013 [facility] [address] [id number] [address] [place] [id number] 07 Aug, 2013 [facility] [address] [id number] [address] [place] [id number] Aug, 2013 [facility] [address] [id number] [address] [place] [id number] Aug, 2013 [facility] [address] [id number] [address] [place] [id number] 07 Aug, 2013 [facility] [address] [id number] [address] [place] [id number] 30 Jul, 2013 [facility] [address] [id number] [address] [place] [id number] 30 Jul, 2013 [facility] [address] [id number] [address] [place] [id number] 29 Jul, 2013 [facility] [address] [id number] [address] [place] [id number] 29 Jul, 2013 [facility] [address] [id number] [facility] [place] [id number] 19 Jul, 2013 [facility] [address] [id number] [facility] [place] [id number] 19 Jul, 2013 [facility] [address] [id number] [facility] [place] [id number] 18 Jul, 2013 [facility] [address] [id number] [facility] [place] [id number] 18 Jul, 2013 [facility] [address] [id number] [facility] [place] [id number] 17 Jul, 2013 [facility] [address] [id number] [address] [place] [address], [place] [id number] 17 Jul, 2013 [facility] [address] [id number] [address] [place] [place] [address], [place] [id number] 10 Jul, 2013 [facility] [address] [id number] [address] [place] [address], [place] [id number] 10 Jul, 2013 [facility] [address] [id number] [address] [place] [address], [place] [id number] Jun, [facility] [address] [id number] [address] [place] [address], [place] [id number] Jun, [facility] [address] [id number] [address] [place] [address], [place] [id number] Jun, [facility] [address] [id number] [address] [place] [address], [place] [id number] Jun, [facility] [address] [id number] [address] [place] [address], [place] [id number] Jun, [facility] [address] [id number] [address] [place] [address], [place] [id number] Jun, [facility] [address] [id number] [address] [place] [address], [place] [id number] Jun, [facility] [address] [id number] [address] [place] [address] [address] Jun, [facility] [address] [id number] [address] [place] [id number] Jun, [facility] [address] [id number] [address] [place] [id number] Jun, [facility] [address] [id number] [address] [place] [id number] Jun, [facility] [address] [id number] [address] [place] [id number] Jun, [facility] [address] [id number] [address] [place] [id number] May, [facility] [address] [id number] [address] [place] [id number] May, [facility] [address] [facility] [id number] [address] [place] [id number] May, IMMUNIZATIONS No Known Immunizations SOCIAL HISTORY [...]
--- OUTSIDE RECORDS SUMMARY | 2020-05-03 14:35 | XMS REPORT ---
Author Author Tracee AVILA Organization [facility] Address [address] [place] [address] Care Team Providers Care Mica Splitter Name Role Phone SARAI AVILA Unavailable PROBLEMS Type Condition ICD9-CM Code VFT78-AZ Code Onset Dates Condition S tatus SNOMED Code Problem Primary insomnia F51.01 Active 397 2004 Problem Breast pain N64.4 Active 64999685 Problem History of renal transplant Z94.0 Ac tive 361025192 Problem Violation of controlled substance agreement Z91.14 Active 611124817 Problem Mild intermittent asthma without complication J45. 20 Active 373735845 Problem Screening breast examination Z12.39 A ctive 352841683 Problem Irritable bowel syndrome without diarrhea K58.9 Active 09326293 Problem Irritable bowel syndrome with diarrhea K58.0 Active 331626553 ALLERGIES No Information ENCOUNTERS Encounter Location Date Diagnosis [facility] [address] [id number] [place] [address] [id number] March, Dental examination Z01.20 [facility] [address] [id number] [address] [place] [address] [id number] Feb, Caries K02.9 [facility] [address] [id number] [address] [place] [address] [id number] Feb, Caries K02.9 [facility] [address] [id number] [address] [place] [address] [id number] Jan, [facility] [address] [id number] [address] [place] [address] [id number] Jan, Caries K02.9 [facility] [address] [id number] [address] [place] [address] [id number] Dec, [facility] [address] [id number] [address] [place] [address] [id number] Dec, 2018 Dental examination Z01.20 an d Caries K02.9 [place] [address] [address] 14 Sep, 2016 Dental examination Z01.20 [place] [address] [address] [place] [id number] [address] [place] [id number] 08 Jan, 2016 Nausea R11.0 ; Irritable bow el syndrome without diarrhea K58.9 and History of renal transplant Z94.0 [place] [address] [id number] 2015 [place] [address] [address] 11 Dec, 2015 Breast pain N64.4 ; Screenin g breast examination Z12.39 and Mild intermittent asthma without complication J45.20 [place] [address] [id number] 10 Dec, 2015 [place] [address] [address] 09 Dec, 2015 Kidney transplant status Z94 .0 ; Personal history of immunosupression therapy Z92.25 ; Recurrent UTI N39.0 and Encounter for screening, unspecified Z13.9 [place] [address] [address] [place] [id number] [address] [place] [phone] Oct, [place] [address] [place] [id number] [address] [place] [phone] Oct, [place] [address] [place] [id number] [address] [place] [id number] Oct, [place] [address] [id number] Oct, Hiatal hernia K44.9 and Atyp ical chest pain R07.89 [place] [address] [address] [place] [id number] [address] [place] [phone] Oct, [place] [address] [id number] [address] [place] [id number] Sep, Kidney replaced by transplan t V42.0 and Bilateral low back pain with sciatica, sciatica laterality unspecified M54.40 [facility] [address] [id number] [address] [place] [phone] Sep, [facility] [address] [id number] [address] [place] [address] Sep, Kidney replaced by transplan t V42.0 ; Bilateral low back pain with sciatica, sciatica laterality unspecified M54.40 ; Anxiety F41.9 and Primary insomnia F51.01 [facility] [address] [id number] [address] [place] [phone] Aug, [facility] [address] [id number] [address] [place] [phone] Aug, [facility] [address] [id number] [address] [place] [id number] Aug, Kidney transplant status Z94 .0 ; Personal history of immunosupression therapy Z92.25 ; Recurrent urinary tract infection N39.0 and Screening Z13.9 [facility] [address] [id number] [address] [place] [phone] Aug, [facility] [address] [id number] [address] [place] [phone] Aug, Encounter for aftercare foll owing kidney transplant Z48.22 ; Chronic radicular pain of lower back M54.16 and PND (post-nasal drip) R09.82 [facility] [address] [id number] [address] [place] [phone] Jul, [facility] [address] [id number] [address] [place] [id number] Jul, [facility] [address] [id number] [address] [place] [phone] Jul, [facility] [address] [id number] [address] [place] [id number] Jul, Kidney replaced by transplan t V42.0 ; Depressive disorder, not elsewhere classified 311 ; Anxiety state, unspecified 300.00 ; Insomnia, unspecified 780.52 ; Irritable bowel syndrome 564.1 ; Chronic lumbar pain 724.2 and GERD (gastroesophageal reflux disease) 530.81 [facility] [address] [id number] [address] [place] [id number] Jul, [facility] [address] [id number] [address] [place] [phone] Jun, [facility] [address] [id number] [address] [place] [phone] Jun, [facility] [address] [facility] [id number] [address] [place] [phone] Jun, [facility] [address] [facility] [id number] [address] [place] [address] Jun, Kidney replaced by transplan t V42.0 [facility] [address] [facility] [id number] [address] [place] [phone] May, [facility] [address] [facility] [id number] [address] [place] [phone] May, Depression with anxiety 300. 4 and Skin infection 686.9 [facility] [address] [facility] [id number] [address] [place] [phone] May, [facility] [address] [id number] [address] [place] [id number] May, Kidney replaced by transplan t V42.0 ; Recurrent UTI (urinary tract infection) 599.0 and Absence of menstruation 626.0 [facility] [address] [facility] [id number] [address] [place] [phone] May, [facility] [address] [facility] [id number] [address] [place] [phone] May, Depression with anxiety 300. 4 [place] [address] [address] [place] [id number] [address] [place] [phone] May, [facility] [address] [place] [id number] [address] [place] [phone] Apr, [facility] [address] [place] [id number] [address] [place] [phone] Apr, [facility] [address] [place] [id number] [address] [place] [address] Apr, Depression, major, recurrent , mild 296.31 [facility] [address] [place] [id number] [address] [place] [address] Apr, Depression, major, recurrent , mild 296.31 [place] [address] [address] [place] [id number] [address] [place] [address] Apr, Cervicalgia 723.1 ; Lumbago 724.2 ; Anxiety state, unspecified 300.00 ; Nausea 787.02 ; 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 ; Recurrent UTI (urinary tract infection) 599.0 and Knee pain, bilateral 719.46 [place] [address] [address] [place] [id number] [address] [place] [phone] March, Depression, major, recurrent , mild 296.31 [facility] [address] [place] [id number] [address] [place] [phone] March, [facility] [address] [place] [id number] [address] [place] [phone] March, [facility] [address] [place] [id number] [address] [place] [phone] March, Lumbago 724.2 ; Insomnia, un specified 780.52 ; Depressive disorder, not elsewhere classified 311 ; 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 ; Anxiety 300.00 ; Allergic rhinitis 477.9 and GERD (gastroesophageal reflux disease) 530.81 [facility] [address] [place] [id number] [address] [place] [phone] Feb, [facility] [address] [id number] [address] [place] [address], [place] [address] Feb, [facility] [address] [id number] [address] [place] [address], [place] [address] Jan, [facility] [address] [id number] [address] [place] [address], [place] [address] Jan, [facility] [address] [id number] [address] [place] [address], [place] [address] Jan, [facility] [address] [id number] [address] [place] [address], [place] [address] Jan, [facility] [address] [id number] [address] [place] [address], [place] [address] Dec, [facility] [address] [id number] [address] [place] [address], [place] [address] Dec, [facility] [address] [id number] [address] [place] [address], [place] [address] Dec, [facility] [address] [id number] [address] [place] [address], [place] [address] Dec, [facility] [address] [id number] [address] [place] [address], [place] [address] Dec, [facility] [address] [id number] [address] [place] [address], [place] [address] Dec, [facility] [address] [id number] [address] [place] [address], [place] [address] Dec, [facility] [address] [id number] [address] [place] [address], [place] [address] Nov, [facility] [address] [id number] [address] [place] [address], [place] [address] Nov, [facility] [address] [id number] [address] [place] [address], [place] [address] Nov, [facility] [address] [id number] [address] [place] [address] [address] Nov, [facility] [address] [id number] [address] [place] [address], [place] [address] Nov, [facility] [address] [id number] [address] [place] [address], [place] [address] Nov, [facility] [address] [id number] [address] [place] [address], [place] [address] Nov, [facility] [address] [id number] [address] [place] [address], [place] [address] Nov, [facility] [address] [id number] [address] [place] [address], [place] [address] Nov, [facility] [address] [id number] [address] [place] [address], [place] [address] Nov, [facility] [address] [id number] [address] [place] [address], [place] [address] Nov, [facility] [address] [id number] [address] [place] [address], [place] [address] Nov, [facility] [address] [id number] [address] [place] [address], [place] [address] Nov, [facility] [address] [id number] [address] [place] [address], [place] [address] Nov, [facility] [address] [id number] [address] [place] [address], [place] [address] Nov, [facility] [address] [id number] [address] [place] [address], [place] [address] Nov, [facility] [address] [id number] [address] [place] [address], [place] [address] Nov, [facility] [address] [id number] [address] [place] [address], [place] [address] Nov, [facility] [address] [id number] [address] [place] [address], [place] [address] Nov, [facility] [address] [id number] [address] [place] [address], [place] [address] Nov, [facility] [address] [id number] [address] [place] [address], [place] [address] Nov, [facility] [address] [id number] [address] [place] [address], [place] [address] Nov, [facility] [address] [id number] [address] [place] [address], [place] [address] Nov, [facility] [address] [id number] [address] [place] [address], [place] [address] Nov, [facility] [address] [id number] [address] [place] [address], [place] [address] Nov, [facility] [address] [id number] [address] [place] [address], [place] [address] Nov, [facility] [address] [id number] [address] [place] [address], [place] [address] Nov, [facility] [address] [id number] [address] [place] [address], [place] [address] Nov, [facility] [address] [id number] [address] [place] [address], [place] [address] Nov, [facility] [address] [id number] [address] [place] [address], [place] [address] Oct, [facility] [address] [id number] [address] [place] [address], [place] [address] Oct, [facility] [address] [id number] [address] [place] [address], [place] [address] Oct, [facility] [address] [id number] [address] [place] [address], [place] [address] Oct, [facility] [address] [id number] [address] [place] [address], [place] [address] Oct, [facility] [address] [id number] [address] [place] [address], [place] [address] Oct, [facility] [address] [id number] [address] [place] [address], [place] [address] Oct, [facility] [address] [id number] [address] [place] [address], [place] [address] Oct, [facility] [address] [id number] [address] [place] [address], [place] [address] Oct, [facility] [address] [id number] [address] [place] [address], [place] [address] Oct, [facility] [address] [id number] [address] [place] [address], [place] [address] Oct, [facility] [address] [id number] [address] [place] [address], [place] [address] Oct, [facility] [address] [id number] [address] [place] [address], [place] [address] Oct, [facility] [address] [id number] [address] [place] [address], [place] [address] Oct, [facility] [address] [id number] [address] [place] [address], [place] [address] Oct, [facility] [address] [id number] [address] [place] [address], [place] [address] Oct, [facility] [address] [id number] [address] [place] [address], [place] [address] Oct, [facility] [address] [id number] [address] [place] [address], [place] [address] Oct, [facility] [address] [id number] [address] [place] [address], [place] [address] Oct, [facility] [address] [id number] [address] [place] [address], [place] [address] 05 Oct, 2014 [facility] [address] [id number] [address] [place] [address], [place] [address] 05 Oct, 2014 [facility] [address] [id number] [address] [place] [address], [place] [address] Oct, [facility] [address] [id number] [address] [place] [address], [place] [address] Oct, [facility] [address] [id number] [address] [place] [address], [place] [address] Sep, [facility] [address] [id number] [address] [place] [address], [place] [address] Sep, [facility] [address] [id number] [address] [place] [address], [place] [address] Sep, [facility] [address] [id number] [address] [place] [address], [place] [address] Sep, [facility] [address] [id number] [address] [place] [address], [place] [address] Sep, [facility] [address] [id number] [address] [place] [address], [place] [address] Sep, [facility] [address] [id number] [address] [place] [address], [place] [address] Sep, [facility] [address] [id number] [address] [place] [address], [place] [address] Sep, [facility] [address] [id number] [address] [place] [address], [place] [address] Sep, [facility] [address] [id number] [address] [place] [address], [place] [address] Sep, [facility] [address] [id number] [address] [place] [address], [place] [address] Sep, [facility] [address] [id number] [address] [place] [address], [place] [address] Sep, [facility] [address] [id number] [address] [place] [address], [place] [address] Sep, [facility] [address] [id number] [address] [place] [address], [place] [address] Sep, [facility] [address] [id number] [address] [place] [address], [place] [address] Sep, [facility] [address] [id number] [address] [place] [address], [place] [address] Sep, [facility] [address] [id number] [address] [place] [address], [place] [address] Sep, [facility] [address] [id number] [address] [place] [address], [place] [address] Sep, [facility] [address] [id number] [address] [place] [address], [place] [address] Sep, [facility] [address] [id number] [address] [place] [address], [place] [address] Sep, [facility] [address] [id number] [address] [place] [address], [place] [address] Sep, [facility] [address] [id number] [address] [place] [address], [place] [address] Sep, [facility] [address] [id number] [address] [place] [address], [place] [address] Sep, [facility] [address] [id number] [address] [place] [address], [place] [address] Sep, [facility] [address] [id number] [address] [place] [address], [place] [address] Sep, [facility] [address] [id number] [address] [place] [address], [place] [address] Sep, [facility] [address] [id number] [address] [place] [address], [place] [address] Sep, [facility] [address] [id number] [address] [place] [address], [place] [address] Sep, [facility] [address] [id number] [address] [place] [address], [place] [address] Aug, [facility] [address] [id number] [address] [place] [address], [place] [address] Aug, [facility] [address] [id number] [address] [place] [address], [place] [address] Aug, [facility] [address] [id number] [address] [place] [address], [place] [address] Aug, [facility] [address] [id number] [address] [place] [address], [place] [address] Aug, [facility] [address] [id number] [address] [place] [address], [place] [id number] Aug, [facility] [address] [id number] [address] [place] [address], [place] [id number] Aug, [facility] [address] [id number] [address] [place] [address], [place] [id number] Aug, [facility] [address] [id number] [address] [place] [address], [place] [id number] Aug, [facility] [address] [id number] [address] [place] [address], [place] [id number] Aug, [facility] [address] [id number] [address] [place] [address], [place] [id number] Aug, [facility] [address] [id number] [address] [place] [id number] Aug, [facility] [address] [id number] [address] [place] [id number] Aug, [facility] [address] [id number] [address] [place] [id number] Aug, [facility] [address] [id number] [address] [place] [address], [place] [id number] Aug, [facility] [address] [id number] [address] [place] [address], [place] [id number] Aug, [facility] [address] [id number] [address] [place] [id number] Aug, [facility] [address] [id number] [address] [place] [id number] 17 Aug, 2013 [facility] [address] [id number] [address] [place] [address], [place] [id number] 14 Aug, 2013 [facility] [address] [id number] [address] [place] [id number] 14 Aug, 2013 [facility] [address] [id number] [address] [place] [address], [place] [id number] 09 Aug, 2013 [facility] [address] [id number] [address] [place] [id number] 09 Aug, 2013 [facility] [address] [id number] [address] [place] [address], [place] [id number] Aug, 2013 [facility] [address] [id number] [address] [place] [address], [place] [id number] Aug, 2013 [facility] [address] [id number] [address] [place] [id number] 08 Aug, 2013 [facility] [address] [id number] [address] [place] [id number] 07 Aug, 2013 [facility] [address] [id number] [address] [place] [id number] Aug, 2013 [facility] [address] [id number] [address] [place] [id number] Aug, 2013 [facility] [address] [id number] [address] [place] [id number] 07 Aug, 2013 [facility] [address] [id number] [address] [place] [id number] 30 Jul, 2013 [facility] [address] [id number] [address] [place] [id number] 30 Jul, 2013 [facility] [address] [id number] [address] [place] [id number] 29 Jul, 2013 [facility] [address] [id number] [address] [place] [id number] 29 Jul, 2013 [facility] [address] [id number] [address] [place] [id number] 19 Jul, 2013 [facility] [address] [id number] [address] [place] [id number] 19 Jul, 2013 [facility] [address] [id number] [address] [place] [id number] 18 Jul, 2013 [facility] [address] [id number] [address] [place] [place] [id number] 18 Jul, 2013 [facility] [address] [id number] [address] [place] [id number] 17 Jul, 2013 [facility] [address] [id number] [address] [place] [address], [place] [id number] 17 Jul, 2013 [facility] [address] [id number] [address] [place] [address], [place] [id number] 10 Jul, 2013 [facility] [address] [id number] [address] [place] [address], [place] [id number] 10 Jul, 2013 [facility] [address] [id number] [address] [place] [address], [place] [id number] Jun, [facility] [address] [id number] [address] [place] [address], [place] [id number] Jun, [facility] [address] [id number] [address] [place] [address], [place] [id number] Jun, [facility] [address] [id number] [address] [place] [address], [place] [id number] Jun, [facility] [address] [id number] [address] [place] [address], [place] [id number] Jun, [facility] [address] [id number] [address] [place] [address], [place] [id number] Jun, [facility] [address] [id number] [address] [place] [address], [place] [id number] Jun, [facility] [facility] [address] [id number] [address] [place], [place] [address] [address] Jun, [facility] [address] [id number] [address] [place] [id number] Jun, [facility] [address] [id number] [address] [place] [id number] Jun, [facility] [address] [id number] [address] [place] [id number] Jun, [facility] [address] [id number] [address] [place] [id number] Jun, [facility] [address] [id number] [address] [place] [id number] May, [facility] [address] [id number] [address] [place] [id number] May, [facility] [address] [facility] [id number] [address] [place] [id number] May, IMMUNIZATIONS No Known Immunizations SOCIAL HISTORY [...]
--- OUTSIDE RECORDS SUMMARY | 2020-05-03 14:35 | XMS REPORT ---
Author Author Tracee SEWELL Organization [facility] [place] Address [address] [place] [address] Care Team Providers Care Marble And Granite Polisher Name Role Phone DONATO FILI Unavailable PROBLEMS Type Condition ICD9-CM Code CVG89-VX Code Onset Dates Condition S tatus SNOMED Code Problem Primary insomnia F51.01 Active 397 2004 Problem Breast pain N64.4 Active 13925638 Problem History of renal transplant Z94.0 Ac tive 763218125 Problem Violation of controlled substance agreement Z91.14 Active 343179663 Problem Mild intermittent asthma without complication J45. 20 Active 710845208 Problem Screening breast examination Z12.39 A ctive 990088085 Problem Irritable bowel syndrome without diarrhea K58.9 Active 24006704 Problem Irritable bowel syndrome with diarrhea K58.0 Active [id number] ALLERGIES No Information ENCOUNTERS Encounter Location Date Diagnosis [facility] [id number] [place] [address] [id number] March, Dental examination Z01.20 [facility] [address] [id number] [address] [place] [address] [id number] Feb, Caries K02.9 [facility] [address] [id number] [address] [place] [address] [id number] Feb, Caries K02.9 [facility] [address] [id number] [address] [place] [address] [id number] Jan, [facility] [address] [id number] [address] [place] [address] [id number] Jan, Caries K02.9 [facility] [address] [id number] [address] [place] [address] [id number] Dec, [facility] [address] [id number] [address] [place] [address] [id number] Dec, Dental examination Z01.20 an d Caries K02.9 [id number] [facility] [place] [id number] [address] [place] [id number] 14 Sep, 2016 Dental examination Z01.20 [place] [address] [address] [facility] [place] [id number] [address] [place] [id number] 08 Jan, 2016 Nausea R11.0 ; Irritable bow el syndrome without diarrhea K58.9 and History of renal transplant Z94.0 [place] [address] [address] [place] [id number] [address] [place] [phone] 2015 [place] [address] [id number] 11 Dec, 2015 Breast pain N64.4 ; Screenin g breast examination Z12.39 and Mild intermittent asthma without complication J45.20 [place] [address] [address] 10 Dec, 2015 [place] [address] [address] 09 Dec, 2015 Kidney transplant status Z94 .0 ; Personal history of immunosupression therapy Z92.25 ; Recurrent UTI N39.0 and Encounter for screening, unspecified Z13.9 [place] [address] [address] [place] [id number] [address] [place] [phone] Oct, [place] [id number] [place] [phone] Oct, [place] [address] [address] [place] [id number] [address] [place] [phone] Oct, [place] [address] [address] Oct, Hiatal hernia K44.9 and Atyp ical chest pain R07.89 [place] [address] [address] [place] [id number] [address] [place] [phone] Oct, [place] [address] [address] [place] [id number] [place] [address], [place] [address] Sep, Kidney replaced by transplan t V42.0 and Bilateral low back pain with sciatica, sciatica laterality unspecified M54.40 [facility] [place] [address] [id number] [address] [place] [address] Sep, [facility] [place] [address] [id number] [address] [place] [phone] Sep, Kidney replaced by transplan t V42.0 ; Bilateral low back pain with sciatica, sciatica laterality unspecified M54.40 ; Anxiety F41.9 and Primary insomnia F51.01 [facility] [place] [address] [id number] [address] [place] [address] Aug, [facility] [place] [address] [facility] [place] [id number] [address] [place] [phone] Aug, [facility] [place] [address] [facility] [place] [id number] [address] [place] [address] Aug, Kidney transplant status Z94 .0 ; Personal history of immunosupression therapy Z92.25 ; Recurrent urinary tract infection N39.0 and Screening Z13.9 [facility] [place] [address] [facility] [place] [id number] [address] [place] [phone] Aug, [facility] [place] [address] [facility] [place] [id number] [address] [place] [address] Aug, Encounter for aftercare foll owing kidney transplant Z48.22 ; Chronic radicular pain of lower back M54.16 and PND (post-nasal drip) R09.82 [facility] [place] [address] [id number] [address] [place] [address] Jul, [facility] [place] [address] [facility] [place] [id number] [address] [place] [phone] Jul, [facility] [place] [address] [facility] [place] [id number] [address] [place] [address] Jul, [facility] [place] [address] [facility] [place] [id number] [address] [place] [address] Jul, Kidney replaced by transplan t V42.0 ; Depressive disorder, not elsewhere classified 311 ; Anxiety state, unspecified 300.00 ; Insomnia, unspecified 780.52 ; Irritable bowel syndrome 564.1 ; Chronic lumbar pain 724.2 and GERD (gastroesophageal reflux disease) 530.81 [facility] [place] [address] [id number] [address] [place] [address] Jul, [facility] [place] [address] [id number] [address] [place] [address] Jun, [facility] [place] [address] [id number] [address] [place] [address] Jun, [facility] [place] [address] [id number] [address] [place] [address] Jun, [facility] [place] [address] [id number] [address] [place] [address] Jun, Kidney replaced by transplan t V42.0 [facility] [place] [address] [id number] [address] [place] [address] May, [facility] [place] [address] [id number] [address] [place] [phone] May, Depression with anxiety 300. 4 and Skin infection 686.9 [facility] [place] [address] [id number] [address] [place] [address] May, [facility] [place] [address] [id number] [address] [place] [address] May, Kidney replaced by transplan t V42.0 ; Recurrent UTI (urinary tract infection) 599.0 and Absence of menstruation 626.0 [facility] [place] [address] [id number] [address] [place] [address] May, [facility] [place] [address] [id number] [address] [place] [address] May, Depression with anxiety 300. 4 [place] [address] [address] [place] [id number] [address] [place] [phone] May, [facility] [place] [address] [address] Apr, [facility] [place] [address] [address] Apr, [facility] [place] [address] [address] Apr, Depression, major, recurrent , mild 296.31 [place] [address] [address] Apr, Depression, major, recurrent , mild 296.31 [place] [address] [address] Apr, Cervicalgia 723.1 ; Lumbago 724.2 ; Anxiety state, unspecified 300.00 ; Nausea 787.02 ; 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 ; Recurrent UTI (urinary tract infection) 599.0 and Knee pain, bilateral 719.46 [place] [address] [address] March, Depression, major, recurrent , mild 296.31 [place] [address] [address] March, [place] [address] [address] March, [place] [address] [address] March, Lumbago 724.2 ; Insomnia, un specified 780.52 ; Depressive disorder, not elsewhere classified 311 ; 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 ; Anxiety 300.00 ; Allergic rhinitis 477.9 and GERD (gastroesophageal reflux disease) 530.81 [place] [address] [address] Feb, [facility] [place] [address] [address] Feb, [facility] [address] [id number] [address] [place] [address], [place] [address] Jan, [facility] [address] [id number] [address] [place] [address], [place] [address] Jan, [facility] [address] [id number] [address] [place] [address], [place] [address] Jan, [facility] [address] [id number] [address] [place] [address], [place] [address] Jan, [facility] [address] [id number] [address] [place] [address], [place] [address] Dec, [facility] [address] [id number] [address] [place] [address], [place] [address] Dec, [facility] [address] [id number] [address] [place] [address], [place] [address] Dec, [facility] [address] [id number] [address] [place] [address], [place] [address] Dec, [facility] [address] [id number] [address] [place] [address], [place] [address] Dec, [facility] [address] [id number] [address] [place] [address], [place] [address] Dec, [facility] [address] [id number] [address] [place] [address], [place] [address] Dec, [facility] [address] [id number] [address] [place] [address] Nov, [facility] [address] [id number] [address] [place] [address] Nov, [facility] [address] [id number] [address] [place] [address] Nov, [facility] [address] [id number] [address] [place] [address] Nov, [facility] [address] [id number] [address] [place] [address], [place] [address] Nov, [facility] [address] [id number] [address] [place] [address], [place] [address] Nov, [facility] [address] [id number] [address] [place] [address], [place] [address] Nov, [facility] [address] [id number] [address] [place] [address], [place] [address] Nov, [facility] [address] [id number] [address] [place] [address], [place] [address] Nov, [facility] [address] [id number] [address] [place] [address], [place] [address] Nov, [facility] [address] [id number] [address] [place] [address], [place] [address] Nov, [facility] [address] [id number] [address] [place] [address], [place] [address] Nov, [facility] [address] [id number] [address] [place] [address], [place] [address] Nov, [facility] [address] [id number] [address] [place] [address], [place] [address] Nov, [facility] [address] [id number] [address] [place] [address], [place] [address] Nov, [facility] [address] [id number] [address] [place] [address], [place] [address] Nov, [facility] [address] [id number] [address] [place] [address], [place] [address] Nov, [facility] [address] [id number] [address] [place] [address], [place] [address] Nov, [facility] [address] [id number] [address] [place] [address], [place] [address] Nov, [facility] [address] [id number] [address] [place] [address], [place] [address] Nov, [facility] [address] [id number] [address] [place] [address], [place] [address] Nov, [facility] [address] [id number] [address] [place] [address], [place] [address] Nov, [facility] [address] [id number] [address] [place] [address], [place] [address] Nov, [facility] [address] [id number] [address] [place] [address], [place] [address] Nov, [facility] [address] [id number] [address] [place] [address], [place] [address] Nov, [facility] [address] [id number] [address] [place] [address], [place] [address] Nov, [facility] [address] [id number] [address] [place] [address], [place] [address] Nov, [facility] [address] [id number] [address] [place] [address], [place] [address] Nov, [facility] [address] [id number] [address] [place] [address], [place] [address] Nov, [facility] [address] [id number] [address] [place] [address], [place] [address] Oct, [facility] [address] [id number] [address] [place] [address], [place] [address] Oct, [facility] [address] [id number] [address] [place] [address], [place] [address] Oct, [facility] [address] [id number] [address] [place] [address], [place] [address] Oct, [facility] [address] [id number] [address] [place] [address], [place] [address] Oct, [facility] [address] [id number] [address] [place] [address], [place] [address] Oct, [facility] [address] [id number] [facility] [address] Oct, [facility] [address] [id number] [address] [place] [address], [place] [address] Oct, [facility] [address] [id number] [address] [place] [address], [place] [address] Oct, [facility] [address] [id number] [address] [place] [address], [place] [address] Oct, [facility] [address] [id number] [address] [place] [address], [place] [address] Oct, [facility] [address] [id number] [address] [place] [address], [place] [address] Oct, [facility] [address] [id number] [address] [place] [address], [place] [address] 17 Oct, 2014 [facility] [address] [id number] [address] [place] [address], [place] [address] 17 Oct, 2014 [facility] [address] [id number] [address] [place] [address], [place] [address] 16 Oct, 2014 [facility] [address] [id number] [address] [place] [address], [place] [address] 16 Oct, 2014 [facility] [address] [id number] [address] [place] [address], [place] [address] 13 Oct, 2014 [facility] [address] [id number] [address] [place] [address], [place] [address] 12 Oct, 2014 [facility] [address] [id number] [address] [place] [address], [place] [address] 12 Oct, 2014 [facility] [address] [id number] [address] [place] [address], [place] [address] 05 Oct, 2014 [facility] [address] [id number] [address] [place] [address], [place] [address] 05 Oct, 2014 [facility] [address] [id number] [address] [place] [address], [place] [address] Oct, [facility] [address] [id number] [address] [place] [address], [place] [address] Oct, [facility] [address] [id number] [address] [place] [address], [place] [address] Sep, [facility] [address] [id number] [address] [place] [address], [place] [address] Sep, [facility] [address] [id number] [address] [place] [address], [place] [address] Sep, [facility] [address] [id number] [address] [place] [address], [place] [address] Sep, [facility] [address] [id number] [address] [place] [address], [place] [address] Sep, [facility] [address] [id number] [address] [place] [address], [place] [address] Sep, [facility] [address] [id number] [address] [place] [address], [place] [address] Sep, [facility] [address] [id number] [address] [place] [address], [place] [address] Sep, [facility] [address] [id number] [address] [place] [address] Sep, [facility] [address] [id number] [address] [place] [address] Sep, [facility] [address] [id number] [address] [place] [address] Sep, [facility] [address] [id number] [address] [place] [address], [place] [address] Sep, [facility] [address] [id number] [address] [place] [address], [place] [address] Sep, [facility] [address] [id number] [address] [place] [address] Sep, [facility] [address] [id number] [address] [place] [address] Sep, [facility] [address] [id number] [address] [place] [address], [place] [address] Sep, [facility] [address] [id number] [address] [place] [address], [place] [address] Sep, [facility] [address] [id number] [address] [place] [address], [place] [address] Sep, [facility] [address] [id number] [address] [place] [address], [place] [address] Sep, [facility] [address] [id number] [address] [place] [address], [place] [address] Sep, [facility] [address] [id number] [address] [place] [address], [place] [address] Sep, [facility] [address] [id number] [address] [place] [address], [place] [address] Sep, [facility] [address] [id number] [address] [place] [address], [place] [address] Sep, [facility] [address] [id number] [address] [place] [address], [place] [address] Sep, [facility] [address] [id number] [address] [place] [address], [place] [address] Sep, [facility] [address] [id number] [address] [place] [address], [place] [address] Sep, [facility] [address] [id number] [address] [place] [address] Sep, [facility] [address] [id number] [address] [place] [address], [place] [address] Sep, [facility] [address] [id number] [address] [place] [address], [place] [address] Aug, [facility] [address] [id number] [address] [place] [address], [place] [address] Aug, [facility] [address] [id number] [address] [place] [address], [place] [address] Aug, [facility] [address] [id number] [address] [place] [address], [place] [address] Aug, [facility] [address] [id number] [address] [place] [address], [place] [address] Aug, [facility] [address] [id number] [address] [place] [address], [place] [address] Aug, [facility] [address] [id number] [address] [place] [address], [place] [address] Aug, [facility] [address] [id number] [address] [place] [address], [place] [address] Aug, [facility] [address] [id number] [address] [place] [address], [place] [address] Aug, [facility] [address] [id number] [address] [place] [address], [place] [address] Aug, [facility] [address] [id number] [address] [place] [address], [place] [address] Aug, [facility] [address] [id number] [address] [place] [address], [place] [address] Aug, [facility] [address] [id number] [address] [place] [address], [place] [address] Aug, [facility] [address] [id number] [address] [place] [address], [place] [address] Aug, [facility] [address] [id number] [address] [place] [address], [place] [address] Aug, [facility] [address] [id number] [address] [place] [address], [place] [address] Aug, [facility] [address] [id number] [address] [place] [address], [place] [address] Aug, [facility] [address] [id number] [address] [place] [address] [address] 17 Aug, 2013 [facility] [address] [id number] [address] [place] [address], [place] [address] 14 Aug, 2013 [facility] [address] [id number] [address] [place] [address], [place] [address] 14 Aug, 2013 [facility] [address] [id number] [address] [place] [address], [place] [address] Aug, 2013 [facility] [address] [id number] [address] [place] [address], [place] [address] Aug, 2013 [facility] [address] [id number] [address] [place] [address], [place] [address] Aug, 2013 [facility] [address] [id number] [address] [place] [address], [place] [address] Aug, 2013 [facility] [address] [id number] [address] [place] [address], [place] [address] 08 Aug, 2013 [facility] [address] [id number] [address] [place] [address], [place] [address] Aug, 2013 [facility] [address] [id number] [address] [place] [address], [place] [address] Aug, 2013 [facility] [address] [id number] [address] [place] [address] Aug, 2013 [facility] [address] [id number] [address] [place] [address] Aug, 2013 [facility] [address] [id number] [address] [place] [address] 30 Jul, 2013 [facility] [address] [id number] [address] [place] [address], [place] [address] 30 Jul, 2013 [facility] [address] [id number] [address] [place] [address] 29 Jul, 2013 [facility] [address] [id number] [address] [place] [id number] 29 Jul, 2013 [facility] [address] [id number] [address] [address] 19 Jul, 2013 [facility] [address] [id number] [address] [place] [address], [place] [address] 19 Jul, 2013 [facility] [address] [id number] [address] [address] 18 Jul, 2013 [facility] [address] [id number] [address] [place] [address], [place] [address] 18 Jul, 2013 [facility] [address] [id number] [address] [place] [address], [place] [address] 17 Jul, 2013 [facility] [address] [id number] [address] [place] [address], [place] [address] 17 Jul, 2013 [facility] [address] [id number] [address] [place] [address], [place] [address] 10 Jul, 2013 [facility] [address] [id number] [address] [place] [address], [place] [address] 10 Jul, 2013 [facility] [address] [id number] [address] [place] [address], [place] [address] Jun, [facility] [address] [id number] [address] [place] [address], [place] [id number] Jun, [facility] [address] [id number] [address] [place] [address], [place] [address] Jun, [facility] [address] [id number] [address] [place] [address], [place] [address] Jun, [facility] [address] [id number] [address] [place] [address], [place] [address] Jun, [facility] [address] [id number] [address] [place] [address], [place] [address] Jun, [facility] [address] [id number] [address] [place] [address], [place] [address] Jun, [facility] [address] [id number] [address] [place] [address], [place] [address] Jun, [facility] [place] [address] [id number] [address] [place] [id number] Jun, [facility] [place] [address] [id number] [address] [place] [phone] Jun, [facility] [place] [address] [id number] [address] [place] [id number] Jun, [facility] [place] [address] [id number] [address] [place] [phone] Jun, [facility] [place] [address] [id number] [address] [place] [phone] May, [facility] [place] [address] [id number] [address] [place] [id number] May, [facility] [place] [address] [id number] [address] [place] [id number] May, IMMUNIZATIONS No Known Immunizations SOCIAL HISTORY Never Assessed REASON FOR VISIT PLAN OF CARE VITAL SIGNS Height 67 in 2014-09-03 Weight 245 lbs 2014-09-03 Temperature 97.3 degrees Fahrenheit 2014-09-03 Heart Rate 98 bpm 2014-09-03 Respiratory Rate 16 2014-09-03 Blood pressure systolic 102 mmHg 2014-09-03 Blood pressure diastolic 60 mmHg 2014-09-03 MEDICATIONS Unknown Medications RESULTS No Results PROCEDURES Procedure Date Ordered Result Body Site SKIN TISSUE PROCEDURE Sep 03, 2014 INSTRUCTIONS MEDICATIONS ADMINISTERED No Known Medications [...]
--- OUTSIDE RECORDS SUMMARY | 2020-05-03 14:36 | XMS REPORT ---
Author Author Tracee AVILA Organization [facility] Address [address] [place] [address] Care Team Providers Care Hr Representative Name Role Phone SARAI AVILA Unavailable PROBLEMS Type Condition ICD9-CM Code REA32-DU Code Onset Dates Condition S tatus SNOMED Code Problem Primary insomnia F51.01 Active 397 2004 Problem Breast pain N64.4 Active 80954366 Problem History of renal transplant Z94.0 Ac tive 802764086 Problem Violation of controlled substance agreement Z91.14 Active 208801465 Problem Mild intermittent asthma without complication J45. 20 Active 623935436 Problem Screening breast examination Z12.39 A ctive 522792265 Problem Irritable bowel syndrome without diarrhea K58.9 Active 98208707 Problem Irritable bowel syndrome with diarrhea K58.0 Active 003286415 ALLERGIES No Information ENCOUNTERS Encounter Location Date Diagnosis [facility] [id number] [place] [address] [id number] March, Dental examination Z01.20 [facility] [address] [id number] [address] [place] [address] [id number] Feb, Caries K02.9 [facility] [address] [id number] [address] [place] [address] [id number] Feb, Caries K02.9 [facility] [address] [id number] [address] [place] [address] [id number] Jan, [facility] [address] [id number] [address] [place] [address] [id number] Jan, Caries K02.9 [facility] [address] [id number] [address] [place] [address] [id number] Dec, [facility] [address] [id number] [address] [place] [address] [id number] 18 Dec, 2018 Dental examination Z01.20 an d Caries K02.9 [place] [address] [id number] 14 Sep, 2016 Dental examination Z01.20 [place] [address] [address] [place] [id number] [address] [place] [phone] 08 Jan, 2016 Nausea R11.0 ; Irritable bow el syndrome without diarrhea K58.9 and History of renal transplant Z94.0 [place] [address] [id number] 2015 [place] [address] [id number] 11 Dec, 2015 Breast pain N64.4 ; Screenin g breast examination Z12.39 and Mild intermittent asthma without complication J45.20 [place] [address] [id number] 10 Dec, 2015 [place] [address] [id number] 09 Dec, 2015 Kidney transplant status Z94 .0 ; Personal history of immunosupression therapy Z92.25 ; Recurrent UTI N39.0 and Encounter for screening, unspecified Z13.9 [place] [address] [address] [place] [id number] [address] [place] [phone] Oct, [place] [address] [address] [place] [id number] [address] [place] [phone] Oct, [place] [address] [address] [place] [id number] [address] [place] [phone] Oct, [place] [address] [id number] Oct, Hiatal hernia K44.9 and Atyp ical chest pain R07.89 [place] [address] [address] [place] [id number] [address] [place] [phone] Oct, [place] [address] [id number] [address] [place] [phone] Sep, Kidney replaced by transplan t V42.0 and Bilateral low back pain with sciatica, sciatica laterality unspecified M54.40 [facility] [address] [id number] [address] [place] [phone] Sep, [facility] [address] [id number] [address] [place] [phone] Sep, Kidney replaced by transplan t V42.0 ; Bilateral low back pain with sciatica, sciatica laterality unspecified M54.40 ; Anxiety F41.9 and Primary insomnia F51.01 [facility] [address] [id number] [address] [place] [phone] Aug, [facility] [address] [id number] [address] [place] [phone] Aug, [facility] [address] [id number] [address] [place] [phone] Aug, Kidney transplant status Z94 .0 ; Personal history of immunosupression therapy Z92.25 ; Recurrent urinary tract infection N39.0 and Screening Z13.9 [facility] [address] [id number] [address] [place] [phone] Aug, [facility] [address] [id number] [address] [place] [phone] Aug, Encounter for aftercare foll owing kidney transplant Z48.22 ; Chronic radicular pain of lower back M54.16 and PND (post-nasal drip) R09.82 [facility] [address] [id number] [address] [place] [phone] Jul, [facility] [address] [id number] [address] [place] [phone] Jul, [facility] [address] [id number] [address] [place] [phone] Jul, [facility] [address] [id number] [address] [place] [phone] Jul, Kidney replaced by transplan t V42.0 ; Depressive disorder, not elsewhere classified 311 ; Anxiety state, unspecified 300.00 ; Insomnia, unspecified 780.52 ; Irritable bowel syndrome 564.1 ; Chronic lumbar pain 724.2 and GERD (gastroesophageal reflux disease) 530.81 [facility] [address] [id number] [address] [place] [phone] Jul, [facility] [address] [id number] [address] [place] [phone] Jun, [facility] [address] [id number] [address] [place] [phone] Jun, [facility] [address] [facility] [id number] [address] [place] [phone] Jun, [facility] [address] [facility] [id number] [address] [place] [phone] Jun, Kidney replaced by transplan t V42.0 [facility] [address] [facility] [id number] [address] [place] [address] May, [facility] [address] [facility] [id number] [address] [place] [address] May, Depression with anxiety 300. 4 and Skin infection 686.9 [facility] [address] [facility] [id number] [address] [place] [address] May, [facility] [address] [id number] [address] [place] [phone] May, Kidney replaced by transplan t V42.0 ; Recurrent UTI (urinary tract infection) 599.0 and Absence of menstruation 626.0 [facility] [address] [facility] [id number] [address] [place] [phone] May, [facility] [address] [facility] [id number] [address] [place] [address] May, Depression with anxiety 300. 4 [place] [address] [address] [place] [id number] [address] [place] [address] May, [facility] [address] [place] [id number] [address] [place] [phone] Apr, [facility] [address] [place] [id number] [address] [place] [phone] Apr, [facility] [address] [place] [id number] [address] [place] [phone] Apr, Depression, major, recurrent , mild 296.31 [facility] [address] [place] [id number] [address] [place] [address] Apr, Depression, major, recurrent , mild 296.31 [place] [address] [address] [place] [id number] [address] [place] [address] Apr, Cervicalgia 723.1 ; Lumbago 724.2 ; Anxiety state, unspecified 300.00 ; Nausea 787.02 ; 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 ; Recurrent UTI (urinary tract infection) 599.0 and Knee pain, bilateral 719.46 [place] [address] [address] [place] [id number] [address] [place] [phone] March, Depression, major, recurrent , mild 296.31 [facility] [address] [place] [id number] [address] [place] [phone] March, [facility] [address] [place] [id number] [address] [place] [phone] March, [facility] [address] [place] [id number] [address] [place] [address] March, Lumbago 724.2 ; Insomnia, un specified 780.52 ; Depressive disorder, not elsewhere classified 311 ; 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 ; Anxiety 300.00 ; Allergic rhinitis 477.9 and GERD (gastroesophageal reflux disease) 530.81 [facility] [address] [place] [id number] [address] [place] [phone] Feb, [facility] [address] [id number] [address] [place] [address], [place] [address] Feb, [facility] [address] [id number] [address] [place] [address], [place] [address] Jan, [facility] [place] [facility] [address] [id number] [address] [place] [address], [place] [address] Jan, [facility] [place] [facility] [address] [id number] [address] [place] [address], [place] [address] Jan, [facility] [place] [facility] [address] [id number] [address] [place] [address], [place] [address] Jan, [facility] [address] [id number] [address] [place] [address], [place] [address] Dec, [facility] [place] [facility] [address] [id number] [address] [place] [address], [place] [address] Dec, [facility] [place] [facility] [address] [id number] [address] [place] [address], [place] [address] Dec, [facility] [address] [id number] [address] [place] [address], [place] [address] Dec, [facility] [place] [facility] [address] [id number] [address] [place] [address], [place] [address] Dec, [facility] [address] [id number] [address] [place] [address], [place] [address] Dec, [facility] [place] [facility] [address] [id number] [address] [place] [address], [place] [address] Dec, [facility] [place] [facility] [address] [id number] [address] [place] [address], [place] [address] Nov, [facility] [place] [facility] [address] [id number] [address] [place] [address], [place] [address] Nov, [facility] [place] [facility] [address] [id number] [address] [place] [address], [place] [address] Nov, [facility] [place] [facility] [address] [id number] [address] [place] [address] [address] Nov, [facility] [address] [id number] [address] [place] [address], [place] [address] Nov, [facility] [address] [id number] [address] [place] [address], [place] [address] Nov, [facility] [address] [id number] [address] [place] [address], [place] [address] Nov, [facility] [address] [id number] [address] [place] [address], [place] [address] Nov, [facility] [address] [id number] [address] [place] [address], [place] [address] Nov, [facility] [address] [id number] [address] [place] [address], [place] [address] Nov, [facility] [address] [id number] [address] [place] [address], [place] [address] Nov, [facility] [address] [id number] [address] [place] [address], [place] [address] Nov, [facility] [address] [id number] [address] [place] [address], [place] [address] Nov, [facility] [address] [id number] [address] [place] [address], [place] [address] Nov, [facility] [address] [id number] [address] [place] [address], [place] [address] Nov, [facility] [place] [facility] [address] [id number] [address] [place] [address], [place] [address] Nov, [facility] [address] [id number] [address] [place] [address], [place] [address] Nov, [facility] [address] [id number] [address] [place] [address], [place] [address] Nov, [facility] [place] [facility] [address] [id number] [address] [place] [address], [place] [address] Nov, [facility] [address] [id number] [address] [place] [address], [place] [address] Nov, [facility] [address] [id number] [address] [place] [address], [place] [address] Nov, [facility] [address] [id number] [address] [place] [address], [place] [address] Nov, [facility] [address] [id number] [address] [place] [address], [place] [address] Nov, [facility] [address] [id number] [address] [place] [address], [place] [address] Nov, [facility] [address] [id number] [address] [place] [address], [place] [address] Nov, [facility] [address] [id number] [address] [place] [address], [place] [address] Nov, [facility] [address] [id number] [address] [place] [address], [place] [address] Nov, [facility] [address] [id number] [address] [place] [address], [place] [address] Nov, [facility] [address] [id number] [address] [place] [address], [place] [address] Nov, [facility] [address] [id number] [address] [place] [address], [place] [address] Oct, [facility] [address] [id number] [address] [place] [address], [place] [address] Oct, [facility] [address] [id number] [address] [place] [address], [place] [address] Oct, [facility] [address] [id number] [address] [place] [address], [place] [address] Oct, [facility] [address] [id number] [address] [place] [address], [place] [address] Oct, [facility] [address] [id number] [address] [place] [address], [place] [address] Oct, [facility] [address] [id number] [address] [place] [address], [place] [address] Oct, [facility] [address] [id number] [address] [place] [address], [place] [address] Oct, [facility] [address] [id number] [address] [place] [address], [place] [address] Oct, [facility] [address] [id number] [address] [place] [address], [place] [address] Oct, [facility] [address] [id number] [address] [place] [address], [place] [address] Oct, [facility] [address] [id number] [address] [place] [address], [place] [address] Oct, [facility] [address] [id number] [address] [place] [address], [place] [address] Oct, [facility] [address] [id number] [address] [place] [address], [place] [address] Oct, [facility] [address] [id number] [address] [place] [address], [place] [address] Oct, [facility] [address] [id number] [address] [place] [address], [place] [address] Oct, [facility] [address] [id number] [address] [place] [address], [place] [address] Oct, [facility] [address] [id number] [address] [place] [address], [place] [address] Oct, [facility] [address] [id number] [address] [place] [address], [place] [address] Oct, [facility] [address] [id number] [address] [place] [address], [place] [address] 05 Oct, 2014 [facility] [address] [id number] [address] [place] [address], [place] [address] 05 Oct, 2014 [facility] [address] [id number] [address] [place] [address], [place] [address] Oct, [facility] [place] [facility] [address] [id number] [address] [place] [address], [place] [address] Oct, [facility] [place] [facility] [address] [id number] [address] [place] [address], [place] [address] Sep, [facility] [place] [facility] [address] [id number] [address] [place] [address], [place] [address] Sep, [facility] [place] [facility] [address] [id number] [address] [place] [address], [place] [address] Sep, [facility] [place] [facility] [address] [id number] [address] [place] [address], [place] [address] Sep, [facility] [place] [facility] [address] [id number] [address] [place] [address], [place] [address] Sep, [facility] [place] [facility] [address] [id number] [address] [place] [address], [place] [address] Sep, [facility] [place] [facility] [address] [id number] [address] [place] [address], [place] [address] Sep, [facility] [place] [facility] [address] [id number] [address] [place] [address], [place] [address] Sep, [facility] [place] [facility] [address] [id number] [address] [place] [address], [place] [address] Sep, [facility] [place] [facility] [address] [id number] [address] [place] [address], [place] [address] Sep, [facility] [address] [id number] [address] [place] [address], [place] [address] Sep, [facility] [address] [id number] [address] [place] [address], [place] [address] Sep, [facility] [address] [id number] [address] [place] [address], [place] [address] Sep, [facility] [address] [id number] [address] [place] [address], [place] [address] Sep, [facility] [address] [id number] [address] [place] [address], [place] [address] Sep, [facility] [address] [id number] [address] [place] [address], [place] [address] Sep, [facility] [address] [id number] [address] [place] [address], [place] [address] Sep, [facility] [address] [id number] [address] [place] [address], [place] [address] Sep, [facility] [address] [id number] [address] [place] [address], [place] [address] Sep, [facility] [address] [id number] [address] [place] [address], [place] [address] Sep, [facility] [address] [id number] [address] [place] [address], [place] [address] Sep, [facility] [address] [id number] [address] [place] [address], [place] [address] Sep, [facility] [address] [id number] [address] [place] [address], [place] [address] Sep, [facility] [address] [id number] [address] [place] [address], [place] [address] Sep, [facility] [address] [id number] [address] [place] [address], [place] [address] Sep, [facility] [address] [id number] [address] [place] [address], [place] [address] Sep, [facility] [address] [id number] [address] [place] [address], [place] [address] Sep, [facility] [address] [id number] [address] [place] [address], [place] [address] Sep, [facility] [address] [id number] [address] [place] [address], [place] [address] Aug, [facility] [address] [id number] [address] [place] [address], [place] [address] Aug, [facility] [address] [id number] [address] [place] [address], [place] [address] Aug, [facility] [address] [id number] [address] [place] [address], [place] [address] Aug, [facility] [address] [id number] [address] [place] [address], [place] [address] Aug, [facility] [address] [id number] [address] [place] [address], [place] [address] Aug, [facility] [address] [id number] [address] [place] [address], [place] [address] Aug, [facility] [address] [id number] [address] [place] [address], [place] [address] Aug, [facility] [address] [id number] [address] [place] [address], [place] [address] Aug, [facility] [address] [id number] [address] [place] [address], [place] [address] Aug, [facility] [address] [id number] [address] [place] [address], [place] [address] Aug, [facility] [address] [id number] [address] [place] [id number] Aug, [facility] [address] [id number] [address] [place] [id number] Aug, [facility] [address] [id number] [address] [place] [id number] Aug, [facility] [address] [id number] [address] [place] [address], [place] [address] Aug, [facility] [address] [id number] [address] [place] [address], [place] [address] Aug, [facility] [address] [id number] [address] [place] [id number] Aug, [facility] [address] [id number] [address] [place] [id number] 17 Aug, 2013 [facility] [address] [id number] [address] [place] [address], [place] [address] 14 Aug, 2013 [facility] [address] [id number] [address] [place] [id number] 14 Aug, 2013 [facility] [address] [id number] [address] [place] [address], [place] [address] 09 Aug, 2013 [facility] [address] [id number] [address] [place] [id number] 09 Aug, 2013 [facility] [address] [id number] [address] [place] [address], [place] [address] Aug, 2013 [facility] [address] [id number] [address] [place] [address], [place] [address] Aug, 2013 [facility] [address] [id number] [address] [place] [id number] 08 Aug, 2013 [facility] [address] [id number] [address] [place] [id number] 07 Aug, 2013 [facility] [address] [id number] [address] [place] [id number] Aug, 2013 [facility] [address] [id number] [address] [place] [id number] Aug, 2013 [facility] [address] [id number] [address] [place] [id number] 07 Aug, 2013 [facility] [address] [id number] [address] [place] [id number] 30 Jul, 2013 [facility] [address] [id number] [address] [place] [id number] 30 Jul, 2013 [facility] [address] [id number] [address] [place] [id number] 29 Jul, 2013 [facility] [address] [id number] [address] [place] [id number] 29 Jul, 2013 [facility] [address] [id number] [facility] [place] [address] 19 Jul, 2013 [facility] [address] [id number] [facility] [place] [address] 19 Jul, 2013 [facility] [address] [id number] [facility] [place] [address] 18 Jul, 2013 [facility] [address] [id number] [facility] [place] [address] 18 Jul, 2013 [facility] [address] [id number] [facility] [place] [address] 17 Jul, 2013 [facility] [address] [id number] [address] [place] [address], [place] [address] 17 Jul, 2013 [facility] [address] [id number] [address] [place] [address], [place] [address] 10 Jul, 2013 [facility] [address] [id number] [address] [place] [address], [place] [id number] 10 Jul, 2013 [facility] [address] [id number] [address] [place] [address], [place] [address] Jun, [facility] [address] [id number] 23 [place] [address], [place] [address] Jun, [facility] [address] [id number] [address] [place] [address], [place] [id number] Jun, [facility] [address] [id number] [address] [place] [address], [place] [id number] Jun, [facility] [address] [id number] [address] [place] [address], [place] [address] Jun, [facility] [address] [id number] [address] [place] [address], [place] [id number] Jun, [facility] [address] [id number] [address] [place] [address], [place] [address] Jun, [facility] [address] [id number] [address] [place], [place] [address] [address] Jun, [facility] [address] [id number] [address] [place] [id number] Jun, [facility] [address] [id number] [address] [place] [id number] Jun, [facility] [address] [id number] [address] [place] [id number] Jun, [facility] [address] [id number] [address] [place] [id number] Jun, [facility] [address] [id number] [address] [place] [id number] May, [facility] [address] [id number] [address] [place] [id number] May, [facility] [address] [id number] [address] [place] [id number] May, IMMUNIZATIONS No Known Immunizations SOCIAL HISTORY Never Assessed REASON FOR VISIT PLAN OF CARE VITAL SIGNS Height 67 in 2014-10-30 Weight 245.44 lbs 2014-10-30 Temperature 97 degrees Fahrenheit 2014-10-30 Heart Rate 80 bpm 2014-10-30 Respiratory Rate 18 2014-10-30 Blood pressure systolic 100 mmHg 2014-10-30 Blood pressure diastolic 70 mmHg 2014-10-30 MEDICATIONS Unknown Medications RESULTS No Results PROCEDURES Procedure Date Ordered Result Body Site COMPREHEN METABOLIC PANEL Oct 30, 2014 VENIPUNCT, ROUTINE* Oct 30, 2014 INSTRUCTIONS MEDICATIONS ADMINISTERED No Known Medications [...]
--- OUTSIDE RECORDS SUMMARY | 2020-05-03 14:36 | XMS REPORT ---
Author Author Tracee BARRETT Organization [facility] Address [address] [place] [address] Care Team Providers Care Towel Sorter Name Role Phone LOLI BARRETT Unavailable PROBLEMS Type Condition ICD9-CM Code DGA44-ZN Code Onset Dates Condition S tatus SNOMED Code Problem Primary insomnia F51.01 Active 397 2004 Problem Breast pain N64.4 Active 51437191 Problem History of renal transplant Z94.0 Ac tive 959725119 Problem Violation of controlled substance agreement Z91.14 Active 308660279 Problem Mild intermittent asthma without complication J45. 20 Active 061895561 Problem Screening breast examination Z12.39 A ctive 511470558 Problem Irritable bowel syndrome without diarrhea K58.9 Active 70639923 Problem Irritable bowel syndrome with diarrhea K58.0 Active 001384649 ALLERGIES No Information ENCOUNTERS Encounter Location Date Diagnosis [facility] [id number] [place] [address] [id number] March, Dental examination Z01.20 [facility] [address] [id number] [address] [place] [address] [id number] Feb, Caries K02.9 [facility] [address] [id number] [address] [place] [address] [id number] Feb, Caries K02.9 [facility] [address] [id number] [address] [place] [address] [id number] Jan, [facility] [address] [id number] [address] [place] [address] [id number] Jan, Caries K02.9 [facility] [address] [id number] [address] [place] [address] [id number] Dec, [facility] [address] [id number] [address] [place] [address] [id number] Dec, 2018 Dental examination Z01.20 an d Caries K02.9 [place] [address] [address] [facility] [id number] [id number] 14 Sep, 2016 Dental examination Z01.20 [place] [address] [address] [facility] [id number] [address] [place] [id number] 08 Jan, 2016 Nausea R11.0 ; Irritable bow el syndrome without diarrhea K58.9 and History of renal transplant Z94.0 [place] [address] [id number] 2015 [place] [address] [id number] 11 Dec, 2015 Breast pain N64.4 ; Screenin g breast examination Z12.39 and Mild intermittent asthma without complication J45.20 [place] [address] [address] [place] [id number] [address] [place] [phone] 10 Dec, 2015 [place] [address] [id number] 09 Dec, 2015 Kidney transplant status Z94 .0 ; Personal history of immunosupression therapy Z92.25 ; Recurrent UTI N39.0 and Encounter for screening, unspecified Z13.9 [place] [address] [address] [place] [id number] [address] [place] [phone] Oct, [place] [address] [address] [place] [id number] [address] [place] [phone] Oct, [place] [address] [address] [place] [id number] [address] [place] [phone] Oct, [place] [address] [id number] Oct, Hiatal hernia K44.9 and Atyp ical chest pain R07.89 [place] [address] [address] [place] [id number] [address] [place] [phone] Oct, [place] [address] [address] [place] [id number] [address] [place] [id number] Sep, Kidney replaced by transplan t V42.0 and Bilateral low back pain with sciatica, sciatica laterality unspecified M54.40 [facility] [address] [id number] [address] [place] [id number] Sep, [facility] [address] [id number] [address] [place] [phone] Sep, Kidney replaced by transplan t V42.0 ; Bilateral low back pain with sciatica, sciatica laterality unspecified M54.40 ; Anxiety F41.9 and Primary insomnia F51.01 [facility] [address] [id number] [address] [place] [id number] Aug, [facility] [address] [id number] [address] [place] [id number] Aug, [facility] [address] [id number] [address] [place] [id number] Aug, Kidney transplant status Z94 .0 ; Personal history of immunosupression therapy Z92.25 ; Recurrent urinary tract infection N39.[address] [facility] [address] [id number] [address] [place] [phone] Aug, [facility] [address] [id number] [address] [place] [id number] Aug, Encounter for aftercare foll owing kidney transplant Z48.22 ; Chronic radicular pain of lower back M54.16 and PND (post-nasal drip) R09.82 [facility] [address] [id number] [address] [place] [phone] Jul, [facility] [address] [id number] [address] [place] [address] Jul, [facility] [address] [id number] [address] [place] [id number] Jul, [facility] [address] [id number] [address] [place] [id number] Jul, Kidney replaced by transplan t V42.0 ; Depressive disorder, not elsewhere classified 311 ; Anxiety state, unspecified 300.00 ; Insomnia, unspecified 780.52 ; Irritable bowel syndrome 564.1 ; Chronic lumbar pain 724.2 and GERD (gastroesophageal reflux disease) 530.81 [facility] [address] [id number] [address] [place] [id number] Jul, [facility] [address] [id number] [address] [place] [phone] Jun, [facility] [address] [id number] [address] [place] [phone] Jun, [facility] [address] [id number] [address] [place] [phone] Jun, [facility] [address] [facility] [id number] [address] [place] [phone] Jun, Kidney replaced by transplan t V42.0 [facility] [address] [id number] [address] [place] [phone] May, [facility] [address] [id number] [address] [place] [phone] May, Depression with anxiety 300. [address] [facility] [address] [facility] [id number] [address] [place] [id number] May, [facility] [address] [id number] [address] [place] [id number] May, Kidney replaced by transplan t V42.0 ; Recurrent UTI (urinary tract infection) 599.0 and Absence of menstruation 626.0 [facility] [address] [facility] [id number] [address] [place] [id number] May, [facility] [address] [facility] [id number] [address] [place] [id number] May, Depression with anxiety 300. 4 [place] [address] [address] [place] [id number] [address] [place] [phone] May, [facility] [address] [place] [id number] [address] [place] [id number] Apr, [facility] [address] [place] [id number] [address] [place] [address] Apr, [facility] [address] [address] Apr, Depression, major, recurrent , mild 296.31 [place] [address] [address] [place] [id number] [address] [place] [id number] Apr, Depression, major, recurrent , mild 296.31 [place] [address] [address] [place] [id number] [address] [place] [id number] Apr, Cervicalgia 723.1 ; Lumbago 724.2 ; Anxiety state, unspecified 300.00 ; Nausea 787.02 ; 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 ; Recurrent UTI (urinary tract infection) 599.0 and Knee pain, bilateral 719.46 [place] [address] [address] [place] [id number] [address] [place] [id number] March, Depression, major, recurrent , mild 296.31 [place] [address] [address] [place] [id number] [address] [place] [id number] March, [place] [address] [address] [place] [id number] [address] [place] [phone] March, [facility] [address] [place] [id number] [address] [place] [id number] March, Lumbago 724.2 ; Insomnia, un specified 780.52 ; Depressive disorder, not elsewhere classified 311 ; 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 ; Anxiety 300.00 ; Allergic rhinitis 477.9 and GERD (gastroesophageal reflux disease) 530.81 [place] [address] [address] [place] [id number] [address] [place] [phone] Feb, [facility] [address] [place] [address] Feb, [facility] [address] [id number] [address] [place] [address], [place] [address] Jan, [facility] [address] [id number] [address] [place] [address], [place] [address] Jan, [facility] [address] [id number] [address] [place] [address], [place] [id number] Jan, [facility] [address] [id number] [address] [place] [address], [place] [address] Jan, [facility] [address] [id number] [address] [place] [address], [place] [address] Dec, [facility] [address] [id number] [address] [place] [address], [place] [address] Dec, [facility] [address] [id number] [address] [place] [address], [place] [address] Dec, [facility] [address] [id number] [address] [place] [address], [place] [id number] Dec, [facility] [address] [id number] [address] [place] [address], [place] [address] Dec, [facility] [address] [id number] [address] [place] [address], [place] [address] Dec, [facility] [address] [id number] [address] [place] [address], [place] [address] Dec, [facility] [address] [id number] [address] [place] [address], [place] [address] Nov, [facility] [address] [id number] [address] [place] [address], [place] [address] Nov, [facility] [address] [id number] [address] [place] [address], [place] [address] Nov, [facility] [address] [id number] [address] [place] [address], [place] [address] Nov, [facility] [address] [id number] [address] [place] [address], [place] [address] Nov, [facility] [address] [id number] [address] [place] [address], [place] [address] Nov, [facility] [address] [id number] [address] [place] [address], [place] [address] Nov, [facility] [address] [id number] [address] [place] [address], [place] [address] Nov, [facility] [address] [id number] [address] [place] [address], [place] [id number] Nov, [facility] [address] [id number] [address] [place] [address], [place] [id number] Nov, [facility] [address] [id number] [address] [place] [address], [place] [address] Nov, [facility] [address] [id number] [address] [place] [address], [place] [address] Nov, [facility] [address] [id number] [address] [place] [address], [place] [address] Nov, [facility] [address] [id number] [address] [place] [address], [place] [address] Nov, [facility] [address] [id number] [address] [place] [address], [place] [address] Nov, [facility] [address] [id number] [address] [place] [address], [place] [address] Nov, [facility] [address] [id number] [address] [place] [address], [place] [address] Nov, [facility] [address] [id number] [address] [place] [address], [place] [address] Nov, [facility] [address] [id number] [address] [place] [address], [place] [address] Nov, [facility] [address] [id number] [address] [place] [address], [place] [address] Nov, [facility] [address] [id number] [address] [place] [address], [place] [address] Nov, [facility] [address] [id number] [address] [place] [address], [place] [address] Nov, [facility] [address] [id number] [address] [place] [address], [place] [address] Nov, [facility] [address] [id number] [address] [place] [address], [place] [address] Nov, [facility] [address] [id number] [address] [place] [address], [place] [id number] Nov, [facility] [address] [id number] [address] [place] [address], [place] [address] Nov, [facility] [address] [id number] [address] [place] [address], [place] [address] Nov, [facility] [address] [id number] [address] [place] [address], [place] [address] Nov, [facility] [address] [id number] [address] [place] [address], [place] [address] Nov, [facility] [address] [id number] [address] [place] [address], [place] [address] Oct, [facility] [address] [id number] [address] [place] [address], [place] [id number] Oct, [facility] [address] [id number] [address] [place] [address], [place] [address] Oct, [facility] [address] [id number] [address] [place] [address], [place] [address] Oct, [facility] [address] [id number] [address] [place] [address], [place] [address] Oct, [facility] [address] [id number] [address] [place] [address], [place] [address] Oct, [facility] [address] [id number] [facility] [place] [address] Oct, [facility] [address] [id number] [address] [place] [address], [place] [address] Oct, [facility] [address] [id number] [address] [place] [address], [place] [address] Oct, [facility] [address] [id number] [address] [place] [address], [place] [address] Oct, [facility] [address] [id number] [address] [place] [address], [place] [id number] Oct, [facility] [address] [id number] [address] [place] [address], [place] [address] Oct, [facility] [address] [id number] [address] [place] [address], [place] [address] Oct, [facility] [address] [id number] [address] [place] [address], [place] [id number] 17 Oct, 2014 [facility] [address] [id number] [address] [place] [address], [place] [id number] 16 Oct, 2014 [facility] [address] [id number] [address] [place] [address], [place] [id number] 16 Oct, 2014 [facility] [address] [id number] [address] [place] [address], [place] [id number] 13 Oct, 2014 [facility] [address] [id number] [address] [place] [address], [place] [address] Oct, [facility] [address] [id number] [address] [place] [address], [place] [address] Oct, [facility] [address] [id number] [address] [place] [address], [place] [address] 05 Oct, 2014 [facility] [address] [id number] [address] [place] [address], [place] [id number] 05 Oct, 2014 [facility] [address] [id number] [address] [place] [address], [place] [address] Oct, [facility] [address] [id number] [address] [place] [address], [place] [address] Oct, [facility] [address] [id number] [address] [place] [address], [place] [address] Sep, [facility] [address] [id number] [address] [place] [address], [place] [address] Sep, [facility] [address] [id number] [address] [place] [address], [place] [address] Sep, [facility] [address] [id number] [address] [place] [address], [place] [address] Sep, [facility] [address] [id number] [address] [place] [address], [place] [address] Sep, [facility] [address] [id number] [address] [place] [address], [place] [address] Sep, [facility] [address] [id number] [address] [place] [address], [place] [address] Sep, [facility] [address] [id number] [address] [place] [address], [place] [address] Sep, [facility] [address] [id number] [address] [place] [address], [place] [address] Sep, [facility] [address] [id number] [address] [place] [address], [place] [address] Sep, [facility] [address] [id number] [address] [place] [id number] Sep, [facility] [address] [id number] [address] [place] [address], [place] [address] Sep, [facility] [address] [id number] [address] [place] [address], [place] [address] Sep, [facility] [address] [id number] [address] [place] [address], [place] [address] Sep, [facility] [address] [id number] [address] [place] [address], [place] [address] Sep, [facility] [address] [id number] [address] [place] [address], [place] [address] Sep, [facility] [address] [id number] [address] [place] [address], [place] [address] Sep, [facility] [address] [id number] [address] [place] [address], [place] [address] Sep, [facility] [address] [id number] [address] [place] [address], [place] [address] Sep, [facility] [address] [id number] [address] [place] [address], [place] [address] Sep, [facility] [address] [id number] [address] [place] [address], [place] [address] Sep, [facility] [address] [id number] [address] [place] [address], [place] [address] Sep, [facility] [address] [id number] [address] [place] [address], [place] [address] Sep, [facility] [address] [id number] [address] [place] [address], [place] [address] Sep, [facility] [address] [id number] [address] [place] [address], [place] [address] Sep, [facility] [address] [id number] [address] [place] [address], [place] [address] Sep, [facility] [address] [id number] [address] [place] [address], [place] [address] Sep, [facility] [address] [id number] [address] [place] [address], [place] [address] Sep, [facility] [address] [id number] [address] [place] [address], [place] [address] Aug, [facility] [address] [id number] [address] [place] [address], [place] [address] Aug, [facility] [address] [id number] [address] [place] [address], [place] [address] Aug, [facility] [address] [id number] [address] [place] [address], [place] [id number] Aug, [facility] [address] [id number] [address] [place] [address], [place] [id number] Aug, [facility] [address] [id number] [address] [place] [address], [place] [id number] Aug, [facility] [address] [id number] [address] [place] [address], [place] [id number] Aug, [facility] [address] [id number] [address] [place] [address], [place] [id number] Aug, [facility] [address] [id number] [address] [place] [address], [place] [id number] Aug, [facility] [address] [id number] [address] [place] [address], [place] [id number] Aug, [facility] [address] [id number] [address] [place] [address], [place] [id number] Aug, [facility] [address] [id number] [address] [place] [address], [place] [id number] Aug, [facility] [address] [id number] [address] [place] [id number] Aug, [facility] [address] [id number] [address] [place] [id number] Aug, [facility] [address] [id number] [address] [place] [address], [place] [id number] Aug, [facility] [address] [id number] [address] [place] [address], [place] [id number] Aug, [facility] [address] [id number] [address] [place] [id number] 17 Aug, 2014 [facility] [address] [id number] [address] [place] [id number] 17 Aug, 2013 [facility] [address] [id number] [address] [place] [address], [place] [id number] 14 Aug, 2013 [facility] [address] [id number] [address] [place] [id number] 14 Aug, 2013 [facility] [address] [id number] [address] [place] [address], [place] [id number] Aug, 2013 [facility] [address] [id number] [address] [place] [id number] Aug, 2013 [facility] [address] [id number] [address] [place] [address], [place] [id number] Aug, 2013 [facility] [address] [id number] [address] [place] [id number] Aug, 2013 [facility] [address] [id number] [address] [place] [id number] 08 Aug, 2013 [facility] [address] [id number] [address] [place] [id number] Aug, 2013 [facility] [address] [id number] [address] [place] [id number] Aug, 2013 [facility] [address] [id number] [address] [place] [id number] Aug, 2013 [facility] [address] [id number] [address] [place] [id number] 07 Aug, 2013 [facility] [address] [id number] [address] [place] [id number] 30 Jul, 2013 [facility] [address] [id number] [address] [place] [id number] 30 Jul, 2013 [facility] [address] [id number] [address] [place] [id number] 29 Jul, 2013 [facility] [address] [id number] [address] [place] [id number] 29 Jul, 2013 [facility] [address] [id number] [facility] [place] [id number] 19 Jul, 2013 [facility] [address] [id number] [facility] [place] [id number] 19 Jul, 2013 [facility] [address] [id number] [facility] [place] [id number] 18 Jul, 2013 [facility] [address] [id number] [address] [place] [address], [place] [id number] 18 Jul, 2013 [facility] [address] [id number] [facility] [place] [id number] 17 Jul, 2013 [facility] [address] [id number] [address] [place] [address], [place] [id number] 17 Jul, 2013 [facility] [address] [id number] [address] [place] [address], [place] [id number] 10 Jul, 2013 [facility] [address] [id number] [address] [place] [address], [place] [id number] 10 Jul, 2013 [facility] [address] [id number] [address] [place] [address], [place] [id number] Jun, [facility] [address] [id number] [address] [place] [address], [place] [id number] Jun, [facility] [address] [id number] [address] [place] [address], [place] [id number] Jun, [facility] [address] [id number] [address] [place] [address], [place] [id number] Jun, [facility] [address] [id number] [address] [place] [address], [place] [id number] Jun, [facility] [address] [id number] [address] [place] [address], [place] [id number] Jun, [facility] [address] [id number] [address] [place] [address], [place] [id number] Jun, [facility] [address] [id number] [address] [place] [address], [place] [id number] Jun, [facility] [address] [id number] [address] [place] [phone] Jun, [facility] [address] [id number] [address] [place] [phone] Jun, [facility] [address] [id number] [address] [place] [phone] Jun, [facility] [address] [id number] [address] [place] [phone] Jun, [facility] [address] [id number] [address] [place] [phone] May, [facility] [address] [id number] [address] [place] [phone] May, [facility] [address] [id number] [address] [place] [id number] May, IMMUNIZATIONS No Known Immunizations SOCIAL HISTORY Never Assessed REASON FOR VISIT PLAN OF CARE VITAL SIGNS Height 67 in 2014-08-06 Weight 239.29 lbs 2014-08-06 Temperature 97.6 degrees Fahrenheit 2014-08-06 Heart Rate 86 bpm 2014-08-06 Respiratory Rate 18 2014-08-06 Blood pressure systolic 122 mmHg 2014-08-06 Blood pressure diastolic 80 mmHg 2014-08-06 MEDICATIONS Unknown Medications RESULTS No Results PROCEDURES Procedure Date Ordered Result Body Site URINE TEST Aug 06, 2014 URINALYSIS, AUTO, W/O SCOPE Aug 06, 2014 INSTRUCTIONS MEDICATIONS ADMINISTERED No Known Medications [...]
--- OUTSIDE RECORDS SUMMARY | 2020-05-03 14:36 | XMS REPORT ---
Author Author Tracee AVILA Organization [facility] Address [address] [place] [address] Care Team Providers Care Buffer Chrome Name Role Phone SARAI AVILA Unavailable PROBLEMS Type Condition ICD9-CM Code TUT43-RW Code Onset Dates Condition S tatus SNOMED Code Problem Primary insomnia F51.01 Active 397 2004 Problem Breast pain N64.4 Active 51173797 Problem History of renal transplant Z94.0 Ac tive 050006334 Problem Violation of controlled substance agreement Z91.14 Active 820323564 Problem Mild intermittent asthma without complication J45. 20 Active 471571866 Problem Screening breast examination Z12.39 A ctive 904229724 Problem Irritable bowel syndrome without diarrhea K58.9 Active 70688469 Problem Irritable bowel syndrome with diarrhea K58.0 Active [id number] ALLERGIES No Information ENCOUNTERS Encounter Location Date Diagnosis [facility] [id number] [place] [address] [id number] March, Dental examination Z01.20 [facility] [address] [id number] [address] [place] [address] [id number] Feb, Caries K02.9 [facility] [address] [id number] [address] [place] [address] [id number] Feb, Caries K02.9 [facility] [address] [id number] [address] [place] [address] [id number] Jan, [facility] [address] [id number] [address] [place] [address] [id number] Jan, Caries K02.9 [facility] [address] [id number] [address] [place] [address] [id number] Dec, [facility] [address] [id number] [address] [place] [address] [id number] 18 Dec, 2018 Dental examination Z01.20 an d Caries K02.9 [place] [address] [id number] 14 Sep, 2016 Dental examination Z01.20 [place] [address] [address] [place] [id number] [address] [place] [address] 08 Jan, 2016 Nausea R11.0 ; Irritable bow el syndrome without diarrhea K58.9 and History of renal transplant Z94.0 [place] [address] [id number] 2015 [place] [address] [id number] 11 Dec, 2015 Breast pain N64.4 ; Screenin g breast examination Z12.39 and Mild intermittent asthma without complication J45.20 [place] [address] [id number] 10 Dec, 2015 [place] [address] [address] 09 Dec, 2015 Kidney transplant status Z94 .0 ; Personal history of immunosupression therapy Z92.25 ; Recurrent UTI N39.0 and Encounter for screening, unspecified Z13.9 [place] [address] [address] [place] [id number] [address] [place] [address] Oct, [place] [address] [place] [id number] [address] [place] [address] Oct, [place] [address] [place] [id number] [address] [place] [address] Oct, [place] [address] [address] Oct, Hiatal hernia K44.9 and Atyp ical chest pain R07.89 [place] [address] [place] [id number] [address] [place] [address] Oct, [place] [address] [id number] [address] [place] [address] Sep, Kidney replaced by transplan t V42.0 and Bilateral low back pain with sciatica, sciatica laterality unspecified M54.40 [facility] [address] [id number] [address] [place] [address] Sep, [facility] [address] [id number] [address] [place] [address] Sep, Kidney replaced by transplan t V42.0 ; Bilateral low back pain with sciatica, sciatica laterality unspecified M54.40 ; Anxiety F41.9 and Primary insomnia F51.01 [facility] [address] [id number] [address] [place] [address] Aug, [facility] [address] [id number] [address] [place] [address] Aug, [facility] [address] [id number] [address] [place] [address] Aug, Kidney transplant status Z94 .0 ; Personal history of immunosupression therapy Z92.25 ; Recurrent urinary tract infection N39.0 and Screening Z13.9 [facility] [address] [id number] [address] [place] [address] Aug, [facility] [address] [id number] [address] [place] [address] Aug, Encounter for aftercare foll owing kidney transplant Z48.22 ; Chronic radicular pain of lower back M54.16 and PND (post-nasal drip) R09.82 [facility] [address] [id number] [address] [place] [address] Jul, [facility] [address] [id number] [address] [place] [address] Jul, [facility] [address] [id number] [address] [place] [address] Jul, [facility] [address] [id number] [address] [place] [address] Jul, Kidney replaced by transplan t V42.0 ; Depressive disorder, not elsewhere classified 311 ; Anxiety state, unspecified 300.00 ; Insomnia, unspecified 780.52 ; Irritable bowel syndrome 564.1 ; Chronic lumbar pain 724.2 and GERD (gastroesophageal reflux disease) 530.81 [facility] [address] [id number] [address] [place] [address] Jul, [facility] [address] [id number] [address] [place] [address] Jun, [facility] [address] [id number] [address] [place] [address] Jun, [facility] [address] [facility] [id number] [address] [place] [address] Jun, [facility] [address] [facility] [id number] [address] [place] [address] Jun, Kidney replaced by transplan t V42.0 [facility] [address] [facility] [id number] [address] [place] [address] May, [facility] [address] [facility] [id number] [address] [place] [address] May, Depression with anxiety 300. 4 and Skin infection 686.9 [facility] [address] [facility] [id number] [address] [place] [address] May, [facility] [address] [id number] [address] [place] [address] May, Kidney replaced by transplan t V42.0 ; Recurrent UTI (urinary tract infection) 599.0 and Absence of menstruation 626.0 [facility] [address] [facility] [id number] [address] [place] [address] May, [facility] [address] [facility] [id number] [address] [place] [address] May, Depression with anxiety 300. 4 [place] [address] [place] [id number] [address] [place] [address] May, [facility] [address] [place] [id number] [address] [place] [address] Apr, [facility] [address] [place] [id number] [address] [place] [address] Apr, [facility] [address] [place] [id number] [address] [place] [address] Apr, Depression, major, recurrent , mild 296.31 [facility] [address] [place] [id number] [address] [place] [address] Apr, Depression, major, recurrent , mild 296.31 [place] [address] [place] [id number] [address] [place] [address] Apr, Cervicalgia 723.1 ; Lumbago 724.2 ; Anxiety state, unspecified 300.00 ; Nausea 787.02 ; 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 ; Recurrent UTI (urinary tract infection) 599.0 and Knee pain, bilateral 719.46 [place] [address] [place] [id number] [address] [place] [address] March, Depression, major, recurrent , mild 296.31 [facility] [address] [place] [id number] [address] [place] [address] March, [facility] [address] [place] [id number] [address] [place] [address] March, [facility] [address] [place] [id number] [address] [place] [address] March, Lumbago 724.2 ; Insomnia, un specified 780.52 ; Depressive disorder, not elsewhere classified 311 ; 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 ; Anxiety 300.00 ; Allergic rhinitis 477.9 and GERD (gastroesophageal reflux disease) 530.81 [facility] [address] [place] [id number] [address] [place] [address] Feb, [facility] [address] [id number] [address] [place] [address], [place] [address] Feb, [facility] [address] [id number] [address] [place] [address], [place] [address] Jan, [facility] [address] [id number] [address] [place] [address], [place] [address] Jan, [facility] [address] [id number] [address] [place] [address], [place] [address] Jan, [facility] [address] [id number] [address] [place] [address], [place] [address] Jan, [facility] [address] [id number] [address] [place] [address], [place] [address] Dec, [facility] [address] [id number] [address] [place] [address], [place] [address] Dec, [facility] [address] [id number] [address] [place] [address], [place] [address] Dec, [facility] [address] [id number] [address] [place] [address], [place] [address] Dec, [facility] [address] [id number] [address] [place] [address], [place] [address] Dec, [facility] [address] [id number] [address] [place] [address], [place] [address] Dec, [facility] [address] [id number] [address] [place] [address], [place] [address] Dec, [facility] [address] [id number] [address] [place] [address], [place] [address] Nov, [facility] [address] [id number] [address] [place] [address], [place] [address] Nov, [facility] [address] [id number] [address] [place] [address], [place] [address] Nov, [facility] [address] [id number] [address] [place] [address] [address] Nov, [facility] [address] [id number] [address] [place] [address], [place] [address] Nov, [facility] [address] [id number] [address] [place] [address], [place] [address] Nov, [facility] [address] [id number] [address] [place] [address], [place] [address] Nov, [facility] [address] [id number] [address] [place] [address], [place] [address] Nov, [facility] [address] [id number] [address] [place] [address], [place] [address] Nov, [facility] [address] [id number] [address] [place] [address], [place] [address] Nov, [facility] [address] [id number] [address] [place] [address], [place] [address] Nov, [facility] [address] [id number] [address] [place] [address], [place] [address] Nov, [facility] [address] [id number] [address] [place] [address], [place] [address] Nov, [facility] [address] [id number] [address] [place] [address], [place] [address] Nov, [facility] [address] [id number] [address] [place] [address], [place] [address] Nov, [facility] [address] [id number] [address] [place] [address], [place] [address] Nov, [facility] [address] [id number] [address] [place] [address], [place] [address] Nov, [facility] [address] [id number] [address] [place] [address], [place] [address] Nov, [facility] [address] [id number] [address] [place] [address], [place] [address] Nov, [facility] [address] [id number] [address] [place] [address], [place] [address] Nov, [facility] [address] [id number] [address] [place] [address], [place] [address] Nov, [facility] [address] [id number] [address] [place] [address], [place] [address] Nov, [facility] [address] [id number] [address] [place] [address], [place] [address] Nov, [facility] [address] [id number] [address] [place] [address], [place] [address] Nov, [facility] [address] [id number] [address] [place] [address], [place] [address] Nov, [facility] [address] [id number] [address] [place] [address], [place] [address] Nov, [facility] [address] [id number] [address] [place] [address], [place] [address] Nov, [facility] [address] [id number] [address] [place] [address], [place] [address] Nov, [facility] [address] [id number] [address] [place] [address], [place] [address] Nov, [facility] [address] [id number] [address] [place] [address], [place] [address] Oct, [facility] [address] [id number] [address] [place] [address], [place] [address] Oct, [facility] [address] [id number] [address] [place] [address], [place] [address] Oct, [facility] [address] [id number] [address] [place] [address], [place] [address] Oct, [facility] [address] [id number] [address] [place] [address], [place] [address] Oct, [facility] [address] [id number] [address] [place] [address], [place] [address] Oct, [facility] [address] [id number] [address] [place] [address], [place] [address] Oct, [facility] [address] [id number] [address] [place] [address], [place] [address] Oct, [facility] [address] [id number] [address] [place] [address], [place] [address] Oct, [facility] [address] [id number] [address] [place] [address], [place] [address] Oct, [facility] [address] [id number] [address] [place] [address], [place] [address] Oct, [facility] [address] [id number] [address] [place] [address], [place] [address] Oct, [facility] [address] [id number] [address] [place] [address], [place] [address] Oct, [facility] [address] [id number] [address] [place] [address], [place] [address] Oct, [facility] [address] [id number] [address] [place] [address], [place] [address] Oct, [facility] [address] [id number] [address] [place] [address], [place] [address] Oct, [facility] [address] [id number] [address] [place] [address], [place] [address] Oct, [facility] [address] [id number] [address] [place] [address], [place] [address] Oct, [facility] [address] [id number] [address] [place] [address], [place] [address] Oct, [facility] [address] [id number] [address] [place] [address], [place] [address] 05 Oct, 2014 [facility] [address] [id number] [address] [place] [address], [place] [address] 05 Oct, 2014 [facility] [address] [id number] [address] [place] [address], [place] [address] Oct, [facility] [address] [id number] [address] [place] [address], [place] [address] Oct, [facility] [address] [id number] [address] [place] [address], [place] [address] Sep, [facility] [address] [id number] [address] [place] [address], [place] [address] Sep, [facility] [address] [id number] [address] [place] [address], [place] [address] Sep, [facility] [address] [id number] [address] [place] [address], [place] [address] Sep, [facility] [address] [id number] [address] [place] [address], [place] [address] Sep, [facility] [address] [id number] [address] [place] [address], [place] [address] Sep, [facility] [address] [id number] [address] [place] [address], [place] [address] Sep, [facility] [address] [id number] [address] [place] [address], [place] [address] Sep, [facility] [address] [id number] [address] [place] [address], [place] [address] Sep, [facility] [address] [id number] [address] [place] [address], [place] [address] Sep, [facility] [address] [id number] [address] [place] [address], [place] [address] Sep, [facility] [address] [id number] [address] [place] [address], [place] [address] Sep, [facility] [address] [id number] [address] [place] [address], [place] [address] Sep, [facility] [address] [id number] [address] [place] [address], [place] [address] Sep, [facility] [address] [id number] [address] [place] [address], [place] [address] Sep, [facility] [address] [id number] [address] [place] [address], [place] [address] Sep, [facility] [address] [id number] [address] [place] [address], [place] [address] Sep, [facility] [address] [id number] [address] [place] [address], [place] [address] Sep, [facility] [address] [id number] [address] [place] [address], [place] [address] Sep, [facility] [address] [id number] [address] [place] [address], [place] [address] Sep, [facility] [address] [id number] [address] [place] [address], [place] [address] Sep, [facility] [address] [id number] [address] [place] [address], [place] [address] Sep, [facility] [address] [id number] [address] [place] [address], [place] [address] Sep, [facility] [address] [id number] [address] [place] [address], [place] [address] Sep, [facility] [address] [id number] [address] [place] [address], [place] [address] Sep, [facility] [address] [id number] [address] [place] [address], [place] [address] Sep, [facility] [address] [id number] [address] [place] [address], [place] [address] Sep, [facility] [address] [id number] [address] [place] [address], [place] [address] Sep, [facility] [address] [id number] [address] [place] [address], [place] [address] Aug, [facility] [address] [id number] [address] [place] [address], [place] [address] Aug, [facility] [address] [id number] [address] [place] [address], [place] [address] Aug, [facility] [address] [id number] [address] [place] [address], [place] [address] Aug, [facility] [address] [id number] [address] [place] [address], [place] [address] Aug, [facility] [address] [id number] [address] [place] [address], [place] [address] Aug, [facility] [address] [id number] [address] [place] [address], [place] [address] Aug, [facility] [address] [id number] [address] [place] [address], [place] [address] Aug, [facility] [address] [id number] [address] [place] [address], [place] [address] Aug, [facility] [address] [id number] [address] [place] [address], [place] [address] Aug, [facility] [address] [id number] [address] [place] [address], [place] [address] Aug, [facility] [address] [id number] [address] [place] [address] Aug, [facility] [address] [id number] [address] [place] [address] Aug, [facility] [address] [id number] [address] [place] [address] Aug, [facility] [address] [id number] [address] [place] [address], [place] [address] Aug, [facility] [address] [id number] [address] [place] [address], [place] [address] Aug, [facility] [address] [id number] [address] [place] [address] Aug, [facility] [address] [id number] [address] [place] [address] 17 Aug, 2013 [facility] [address] [id number] [address] [place] [address], [place] [address] 14 Aug, 2013 [facility] [address] [id number] [address] [place] [address] 14 Aug, 2013 [facility] [address] [id number] [address] [place] [address], [place] [address] 09 Aug, 2013 [facility] [address] [id number] [address] [place] [address] 09 Aug, 2013 [facility] [address] [id number] [address] [place] [address], [place] [address] Aug, 2013 [facility] [address] [id number] [address] [place] [address], [place] [address] Aug, 2013 [facility] [address] [id number] [address] [place] [address] 08 Aug, 2013 [facility] [address] [id number] [address] [place] [address] 07 Aug, 2013 [facility] [address] [id number] [address] [place] [address] Aug, 2013 [facility] [address] [id number] [address] [place] [address] Aug, 2013 [facility] [address] [id number] [address] [place] [address] 07 Aug, 2013 [facility] [address] [id number] [address] [place] [address] 30 Jul, 2013 [facility] [address] [id number] [address] [place] [address] 30 Jul, 2013 [facility] [address] [id number] [address] [place] [address] 29 Jul, 2013 [facility] [address] [id number] [address] [place] [address] 29 Jul, 2013 [facility] [address] [id number] [facility] [place] [address] 19 Jul, 2013 [facility] [address] [id number] [facility] [place] [address] 19 Jul, 2013 [facility] [address] [id number] [facility] [place] [address] 18 Jul, 2013 [facility] [address] [id number] [facility] [place] [address] 18 Jul, 2013 [facility] [address] [id number] [facility] [place] [address] 17 Jul, 2013 [facility] [address] [id number] [address] [place] [address], [place] [address] 17 Jul, 2013 [facility] [address] [id number] [address] [place] [address], [place] [address] 10 Jul, 2013 [facility] [address] [id number] [address] [place] [address], [place] [address] 10 Jul, 2013 [facility] [address] [id number] [address] [place] [address], [place] [address] Jun, [facility] [address] [id number] [address] [place] [address], [place] [address] Jun, [facility] [address] [id number] [address] [place] [address], [place] [address] Jun, [facility] [address] [id number] [address] [place] [address], [place] [address] Jun, [facility] [address] [id number] [address] [place] [address], [place] [address] Jun, [facility] [address] [id number] [address] [place] [address], [place] [address] Jun, [facility] [address] [id number] [address] [place] [address], [place] [address] Jun, [facility] [address] [id number] [address] [place], [place] [address] [address] Jun, [facility] [address] [id number] [address] [place] [id number] Jun, [facility] [address] [id number] [address] [place] [id number] Jun, [facility] [address] [id number] [address] [place] [id number] Jun, [facility] [address] [id number] [address] [place] [id number] Jun, [facility] [address] [id number] [address] [place] [id number] May, [facility] [address] [id number] [address] [place] [id number] May, [facility] [address] [facility] [id number] [address] [place] [id number] May, IMMUNIZATIONS No Known Immunizations SOCIAL HISTORY [...]
--- OUTSIDE RECORDS SUMMARY | 2020-05-03 14:36 | XMS REPORT ---
Author Author Tracee AVILA Organization [facility] Address [address] [place] [address] Care Team Providers Care Registered Nurse Ambulatory Name Role Phone SARAI AVILA Unavailable PROBLEMS Type Condition ICD9-CM Code [id number] Code Onset Dates Condition S tatus SNOMED Code Problem Primary insomnia F51.01 Active 397 2004 Problem Breast pain N64.4 Active 62472210 Problem History of renal transplant Z94.0 Ac tive 133346833 Problem Violation of controlled substance agreement Z91.14 Active 119833564 Problem Mild intermittent asthma without complication J45. 20 Active 824358383 Problem Screening breast examination Z12.39 A ctive 786457765 Problem Irritable bowel syndrome without diarrhea K58.9 Active 00060998 Problem Irritable bowel syndrome with diarrhea K58.0 Active 230679205 ALLERGIES No Information ENCOUNTERS Encounter Location Date Diagnosis [facility] [id number] [place] [address] [id number] March, Dental examination Z01.20 [facility] [address] [id number] [address] [place] [address] [id number] Feb, Caries K02.9 [facility] [address] [id number] [address] [place] [address] [id number] Feb, Caries K02.9 [facility] [address] [id number] [address] [place] [address] [id number] Jan, [facility] [address] [id number] [address] [place] [address] [id number] Jan, Caries K02.9 [facility] [address] [id number] [address] [place] [address] [id number] Dec, [facility] [address] [id number] [address] [place] [address] [id number] Dec, 2018 Dental examination Z01.20 an d Caries K02.9 [place] [address] [id number] 14 Sep, 2016 Dental examination Z01.20 [place] [address] [place] [id number] [address] [place] [id number] 08 Jan, 2016 Nausea R11.0 ; Irritable bow el syndrome without diarrhea K58.9 and History of renal transplant Z94.0 [place] [address] [id number] 2015 [place] [address] [id number] 11 Dec, 2015 Breast pain N64.4 ; Screenin g breast examination Z12.39 and Mild intermittent asthma without complication J45.20 [place] [address] [address] 10 Dec, 2015 [place] [address] [id number] 09 Dec, 2015 Kidney transplant status Z94 .0 ; Personal history of immunosupression therapy Z92.25 ; Recurrent UTI N39.0 and Encounter for screening, unspecified Z13.9 [place] [address] [place] [id number] [address] [place] [address] Oct, [place] [address] [place] [id number] [address] [place] [address] Oct, [place] [address] [place] [id number] [address] [place] [address] Oct, [place] [address] [address] Oct, Hiatal hernia K44.9 and Atyp ical chest pain R07.89 [place] [address] [place] [id number] [address] [place] [address] Oct, [place] [address] [id number] [address] [place] [address] Sep, Kidney replaced by transplan t V42.0 and Bilateral low back pain with sciatica, sciatica laterality unspecified M54.40 [facility] [address] [id number] [address] [place] [address] Sep, [facility] [address] [id number] [address] [place] [address] Sep, Kidney replaced by transplan t V42.0 ; Bilateral low back pain with sciatica, sciatica laterality unspecified M54.40 ; Anxiety F41.9 and Primary insomnia F51.01 [facility] [address] [id number] [address] [place] [address] Aug, [facility] [address] [id number] [address] [place] [address] Aug, [facility] [address] [id number] [address] [place] [phone] Aug, Kidney transplant status Z94 .0 ; Personal history of immunosupression therapy Z92.25 ; Recurrent urinary tract infection N39.0 and Screening Z13.9 [facility] [address] [id number] [address] [place] [address] Aug, [facility] [address] [id number] [address] [place] [address] Aug, Encounter for aftercare foll owing kidney transplant Z48.22 ; Chronic radicular pain of lower back M54.16 and PND (post-nasal drip) R09.82 [facility] [address] [id number] [address] [place] [phone] Jul, [facility] [address] [id number] [address] [place] [address] Jul, [facility] [address] [id number] [address] [place] [address] Jul, [facility] [address] [id number] [address] [place] [address] Jul, Kidney replaced by transplan t V42.0 ; Depressive disorder, not elsewhere classified 311 ; Anxiety state, unspecified 300.00 ; Insomnia, unspecified 780.52 ; Irritable bowel syndrome 564.1 ; Chronic lumbar pain 724.2 and GERD (gastroesophageal reflux disease) 530.81 [facility] [address] [id number] [address] [place] [address] Jul, [facility] [address] [id number] [address] [place] [address] Jun, [facility] [address] [id number] [address] [place] [address] Jun, [facility] [address] [facility] [id number] [address] [place] [address] Jun, [facility] [address] [facility] [id number] [address] [place] [address] Jun, Kidney replaced by transplan t V42.0 [facility] [address] [facility] [id number] [address] [place] [address] May, [facility] [address] [facility] [id number] [address] [place] [address] May, Depression with anxiety 300. 4 and Skin infection 686.9 [facility] [address] [facility] [id number] [address] [place] [address] May, [facility] [address] [id number] [address] [place] [address] May, Kidney replaced by transplan t V42.0 ; Recurrent UTI (urinary tract infection) 599.0 and Absence of menstruation 626.0 [facility] [address] [facility] [id number] [address] [place] [address] May, [facility] [address] [facility] [id number] [address] [place] [address] May, Depression with anxiety 300. 4 [place] [address] [place] [id number] [address] [place] [address] May, [facility] [address] [place] [id number] [address] [place] [address] Apr, [facility] [address] [place] [id number] [address] [place] [address] Apr, [facility] [address] [place] [id number] [address] [place] [address] Apr, Depression, major, recurrent , mild 296.31 [facility] [address] [place] [id number] [address] [place] [address] Apr, Depression, major, recurrent , mild 296.31 [place] [address] [place] [id number] [address] [place] [address] Apr, Cervicalgia 723.1 ; Lumbago 724.2 ; Anxiety state, unspecified 300.00 ; Nausea 787.02 ; 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 ; Recurrent UTI (urinary tract infection) 599.0 and Knee pain, bilateral 719.46 [place] [address] [place] [id number] [address] [place] [address] March, Depression, major, recurrent , mild 296.31 [facility] [address] [place] [id number] [address] [place] [address] March, [facility] [address] [place] [id number] [address] [place] [address] March, [facility] [address] [place] [id number] [address] [place] [address] March, Lumbago 724.2 ; Insomnia, un specified 780.52 ; Depressive disorder, not elsewhere classified 311 ; 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 ; Anxiety 300.00 ; Allergic rhinitis 477.9 and GERD (gastroesophageal reflux disease) 530.81 [facility] [address] [place] [id number] [address] [place] [address] Feb, [facility] [address] [id number] [address] [place] [address], [place] [address] Feb, [facility] [address] [id number] [address] [place] [address], [place] [address] Jan, [facility] [address] [id number] [address] [place] [address], [place] [address] Jan, [facility] [address] [id number] [address] [place] [address], [place] [address] Jan, [facility] [address] [id number] [address] [place] [address], [place] [address] Jan, [facility] [address] [id number] [address] [place] [address], [place] [address] Dec, [facility] [address] [id number] [address] [place] [address], [place] [address] Dec, [facility] [address] [id number] [address] [place] [address], [place] [address] Dec, [facility] [address] [id number] [address] [place] [address], [place] [address] Dec, [facility] [address] [id number] [address] [place] [address], [place] [address] Dec, [facility] [address] [id number] [address] [place] [address], [place] [address] Dec, [facility] [address] [id number] [address] [place] [address], [place] [address] Dec, [facility] [address] [id number] [address] [place] [address], [place] [address] Nov, [facility] [address] [id number] [address] [place] [address], [place] [address] Nov, [facility] [address] [id number] [address] [place] [address], [place] [address] Nov, [facility] [address] [id number] [address] [place] [address] [address] Nov, [facility] [address] [id number] [address] [place] [address], [place] [address] Nov, [facility] [address] [id number] [address] [place] [address], [place] [address] Nov, [facility] [address] [id number] [address] [place] [address], [place] [address] Nov, [facility] [address] [id number] [address] [place] [address], [place] [address] Nov, [facility] [address] [id number] [address] [place] [address], [place] [address] Nov, [facility] [address] [id number] [address] [place] [address], [place] [address] Nov, [facility] [address] [id number] [address] [place] [address], [place] [address] Nov, [facility] [address] [id number] [address] [place] [address], [place] [address] Nov, [facility] [address] [id number] [address] [place] [address], [place] [address] Nov, [facility] [address] [id number] [address] [place] [address], [place] [address] Nov, [facility] [address] [id number] [address] [place] [address], [place] [address] Nov, [facility] [address] [id number] [address] [place] [address], [place] [address] Nov, [facility] [address] [id number] [address] [place] [address], [place] [address] Nov, [facility] [address] [id number] [address] [place] [address], [place] [address] Nov, [facility] [address] [id number] [address] [place] [address], [place] [address] Nov, [facility] [address] [id number] [address] [place] [address], [place] [address] Nov, [facility] [address] [id number] [address] [place] [address], [place] [address] Nov, [facility] [address] [id number] [address] [place] [address], [place] [address] Nov, [facility] [address] [id number] [address] [place] [address], [place] [address] Nov, [facility] [address] [id number] [address] [place] [address], [place] [address] Nov, [facility] [address] [id number] [address] [place] [address], [place] [address] Nov, [facility] [address] [id number] [address] [place] [address], [place] [address] Nov, [facility] [address] [id number] [address] [place] [address], [place] [address] Nov, [facility] [address] [id number] [address] [place] [address], [place] [address] Nov, [facility] [address] [id number] [address] [place] [address], [place] [address] Nov, [facility] [address] [id number] [address] [place] [address], [place] [address] Oct, [facility] [address] [id number] [address] [place] [address], [place] [address] Oct, [facility] [address] [id number] [address] [place] [address], [place] [address] Oct, [facility] [address] [id number] [address] [place] [address], [place] [address] Oct, [facility] [address] [id number] [address] [place] [address], [place] [address] Oct, [facility] [address] [id number] [address] [place] [address], [place] [address] Oct, [facility] [address] [id number] [address] [place] [address], [place] [address] Oct, [facility] [address] [id number] [address] [place] [address], [place] [address] Oct, [facility] [address] [id number] [address] [place] [address], [place] [address] Oct, [facility] [address] [id number] [address] [place] [address], [place] [address] Oct, [facility] [address] [id number] [address] [place] [address], [place] [address] Oct, [facility] [address] [id number] [address] [place] [address], [place] [address] Oct, [facility] [address] [id number] [address] [place] [address], [place] [address] Oct, [facility] [address] [id number] [address] [place] [address], [place] [address] Oct, [facility] [address] [id number] [address] [place] [address], [place] [address] Oct, [facility] [address] [id number] [address] [place] [address], [place] [address] Oct, [facility] [address] [id number] [address] [place] [address], [place] [address] Oct, [facility] [address] [id number] [address] [place] [address], [place] [address] Oct, [facility] [address] [id number] [address] [place] [address], [place] [address] Oct, [facility] [address] [id number] [address] [place] [address], [place] [address] 05 Oct, 2014 [facility] [address] [id number] [address] [place] [address], [place] [address] 05 Oct, 2014 [facility] [address] [id number] [address] [place] [address], [place] [address] Oct, [facility] [address] [id number] [address] [place] [address], [place] [address] Oct, [facility] [address] [id number] [address] [place] [address], [place] [address] Sep, [facility] [address] [id number] [address] [place] [address], [place] [address] Sep, [facility] [address] [id number] [address] [place] [address], [place] [address] Sep, [facility] [address] [id number] [address] [place] [address], [place] [address] Sep, [facility] [address] [id number] [address] [place] [address], [place] [address] Sep, [facility] [address] [id number] [address] [place] [address], [place] [address] Sep, [facility] [address] [id number] [address] [place] [address], [place] [address] Sep, [facility] [address] [id number] [address] [place] [address], [place] [address] Sep, [facility] [address] [id number] [address] [place] [address], [place] [address] Sep, [facility] [address] [id number] [address] [place] [address], [place] [address] Sep, [facility] [address] [id number] [address] [place] [address], [place] [address] Sep, [facility] [address] [id number] [address] [place] [address], [place] [address] Sep, [facility] [address] [id number] [address] [place] [address], [place] [address] Sep, [facility] [address] [id number] [address] [place] [address], [place] [address] Sep, [facility] [address] [id number] [address] [place] [address], [place] [address] Sep, [facility] [address] [id number] [address] [place] [address], [place] [address] Sep, [facility] [address] [id number] [address] [place] [address], [place] [address] Sep, [facility] [address] [id number] [address] [place] [address], [place] [address] Sep, [facility] [address] [id number] [address] [place] [address], [place] [address] Sep, [facility] [address] [id number] [address] [place] [address], [place] [address] Sep, [facility] [address] [id number] [address] [place] [address], [place] [address] Sep, [facility] [address] [id number] [address] [place] [address], [place] [address] Sep, [facility] [address] [id number] [address] [place] [address], [place] [address] Sep, [facility] [address] [id number] [address] [place] [address], [place] [address] Sep, [facility] [address] [id number] [address] [place] [address], [place] [address] Sep, [facility] [address] [id number] [address] [place] [address], [place] [address] Sep, [facility] [address] [id number] [address] [place] [address], [place] [address] Sep, [facility] [address] [id number] [address] [place] [address], [place] [address] Sep, [facility] [address] [id number] [address] [place] [address], [place] [address] Aug, [facility] [address] [id number] [address] [place] [address], [place] [address] Aug, [facility] [address] [id number] [address] [place] [address], [place] [address] Aug, [facility] [address] [id number] [address] [place] [address], [place] [address] Aug, [facility] [address] [id number] [address] [place] [address], [place] [address] Aug, [facility] [address] [id number] [address] [place] [address], [place] [address] Aug, [facility] [address] [id number] [address] [place] [address], [place] [address] Aug, [facility] [address] [id number] [address] [place] [address], [place] [address] Aug, [facility] [address] [id number] [address] [place] [address], [place] [address] Aug, [facility] [address] [id number] [address] [place] [address], [place] [address] Aug, [facility] [address] [id number] [address] [place] [address], [place] [id number] Aug, [facility] [address] [id number] [address] [place] [id number] Aug, [facility] [address] [id number] [address] [place] [id number] Aug, [facility] [address] [id number] [address] [place] [id number] Aug, [facility] [address] [id number] [address] [place] [address], [place] [id number] Aug, [facility] [address] [id number] [address] [place] [address], [place] [address] Aug, [facility] [address] [id number] [address] [place] [id number] Aug, [facility] [address] [id number] [address] [place] [id number] 17 Aug, 2013 [facility] [address] [id number] [address] [place] [address], [place] [address] 14 Aug, 2013 [facility] [address] [id number] [address] [place] [id number] 14 Aug, 2013 [facility] [address] [id number] [address] [place] [address], [place] [id number] 09 Aug, 2013 [facility] [address] [id number] [address] [place] [id number] 09 Aug, 2013 [facility] [address] [id number] [address] [place] [address], [place] [id number] Aug, 2013 [facility] [address] [id number] [address] [place] [address], [place] [address] Aug, 2013 [facility] [address] [id number] [address] [place] [id number] 08 Aug, 2013 [facility] [address] [id number] [address] [place] [id number] 07 Aug, 2013 [facility] [address] [id number] [address] [place] [id number] Aug, 2013 [facility] [address] [id number] [address] [place] [id number] Aug, 2013 [facility] [address] [id number] [address] [place] [id number] 07 Aug, 2013 [facility] [address] [id number] [address] [place] [id number] 30 Jul, 2013 [facility] [address] [id number] [address] [place] [id number] 30 Jul, 2013 [facility] [address] [id number] [address] [place] [id number] 29 Jul, 2013 [facility] [address] [id number] [address] [place] [id number] 29 Jul, 2013 [facility] [address] [id number] [facility] [place] [id number] 19 Jul, 2013 [facility] [address] [id number] [facility] [place] [id number] 19 Jul, 2013 [facility] [address] [id number] [address] [place] [id number] 18 Jul, 2013 [facility] [address] [id number] [address] [place] [id number] 18 Jul, 2013 [facility] [address] [id number] [address] [place] [address] 17 Jul, 2013 [facility] [address] [id number] [address] [place] [address], [place] [id number] 17 Jul, 2013 [facility] [address] [id number] [address] [place] [address], [place] [id number] 10 Jul, 2013 [facility] [address] [id number] [address] [place] [address], [place] [id number] 10 Jul, 2013 [facility] [address] [id number] [address] [place] [address], [place] [id number] Jun, [facility] [address] [id number] [address] [place] [address], [place] [address] Jun, [facility] [address] [id number] [address] [place] [address], [place] [address] Jun, [facility] [address] [id number] [address] [place] [address], [place] [id number] Jun, [facility] [address] [id number] [address] [place] [address], [place] [address] Jun, [facility] [address] [id number] [place] [address], [place] [id number] Jun, [facility] [address] [id number] [address] [place] [address], [place] [id number] Jun, [facility] [address] [id number] [address] [place] [address] [address] Jun, [facility] [address] [id number] [address] [place] [id number] Jun, [facility] [address] [id number] [address] [place] [id number] Jun, [facility] [address] [id number] [address] [place] [id number] Jun, [facility] [address] [id number] [address] [place] [id number] Jun, [facility] [address] [id number] [address] [place] [id number] May, [facility] [address] [id number] [address] [place] [id number] May, [facility] [address] [facility] [id number] [address] [place] [id number] May, IMMUNIZATIONS No Known Immunizations SOCIAL HISTORY [...]
--- OUTSIDE RECORDS SUMMARY | 2020-05-03 14:37 | XMS REPORT ---
Author Author Tracee AVILA Organization [facility] Address [address] [place] [address] Care Team Providers Care Ict Business Development Manager Name Role Phone SARAI AVILA Unavailable PROBLEMS Type Condition ICD9-CM Code [id number] Code Onset Dates Condition S tatus SNOMED Code Problem Primary insomnia F51.01 Active 397 2004 Problem Breast pain N64.4 Active 89530961 Problem History of renal transplant Z94.0 Ac tive 621352210 Problem Violation of controlled substance agreement Z91.14 Active 297902066 Problem Mild intermittent asthma without complication J45. 20 Active 536561753 Problem Screening breast examination Z12.39 A ctive 707808522 Problem Irritable bowel syndrome without diarrhea K58.9 Active 14121950 Problem Irritable bowel syndrome with diarrhea K58.0 Active 415050539 ALLERGIES No Information ENCOUNTERS Encounter Location Date Diagnosis [facility] [address] [id number] [place] [address] [id number] March, Dental examination Z01.20 [facility] [address] [id number] [address] [place] [address] [id number] Feb, Caries K02.9 [facility] [address] [id number] [address] [place] [address] [id number] Feb, Caries K02.9 [facility] [address] [id number] [address] [place] [address] [id number] Jan, [facility] [address] [id number] [address] [place] [address] [phone] Jan, Caries K02.9 [facility] [address] [id number] [address] [place] [address] [id number] Dec, [facility] [address] [id number] [address] [place] [address] [id number] 18 Dec, 2018 Dental examination Z01.20 an d Caries K02.9 [place] [address] [address] 14 Sep, 2016 Dental examination Z01.20 [place] [address] [place] [id number] [address] [place] [id number] 08 Jan, 2016 Nausea R11.0 ; Irritable bow el syndrome without diarrhea K58.9 and History of renal transplant Z94.0 [place] [address] [id number] 2015 [place] [address] [id number] 11 Dec, 2015 Breast pain N64.4 ; Screenin g breast examination Z12.39 and Mild intermittent asthma without complication J45.20 [place] [address] [id number] 10 Dec, 2015 [place] [address] [address] 09 Dec, 2015 Kidney transplant status Z94 .0 ; Personal history of immunosupression therapy Z92.25 ; Recurrent UTI N39.0 and Encounter for screening, unspecified Z13.9 [place] [address] [place] [id number] [address] [place] [address] Oct, [place] [address] [place] [id number] [address] [place] [address] Oct, [place] [address] [place] [id number] [address] [place] [address] Oct, [place] [address] [address] Oct, Hiatal hernia K44.9 and Atyp ical chest pain R07.89 [place] [address] [place] [id number] [address] [place] [address] Oct, [place] [address] [id number] [address] [place] [address] Sep, Kidney replaced by transplan t V42.0 and Bilateral low back pain with sciatica, sciatica laterality unspecified M54.40 [facility] [address] [id number] [address] [place] [address] Sep, [facility] [address] [id number] [address] [place] [address] Sep, Kidney replaced by transplan t V42.0 ; Bilateral low back pain with sciatica, sciatica laterality unspecified M54.40 ; Anxiety F41.9 and Primary insomnia F51.01 [facility] [address] [id number] [address] [place] [address] Aug, [facility] [address] [id number] [address] [place] [phone] Aug, [facility] [address] [id number] [address] [place] [address] Aug, Kidney transplant status Z94 .0 ; Personal history of immunosupression therapy Z92.25 ; Recurrent urinary tract infection N39.[address] [facility] [address] [id number] [address] [place] [address] Aug, [facility] [address] [id number] [address] [place] [address] Aug, Encounter for aftercare foll owing kidney transplant Z48.22 ; Chronic radicular pain of lower back M54.16 and PND (post-nasal drip) R09.82 [facility] [address] [id number] [address] [place] [address] Jul, [facility] [address] [id number] [address] [place] [address] Jul, [facility] [address] [id number] [address] [place] [address] Jul, [facility] [address] [id number] [address] [place] [address] Jul, Kidney replaced by transplan t V42.0 ; Depressive disorder, not elsewhere classified 311 ; Anxiety state, unspecified 300.00 ; Insomnia, unspecified 780.52 ; Irritable bowel syndrome 564.1 ; Chronic lumbar pain 724.2 and GERD (gastroesophageal reflux disease) 530.81 [facility] [address] [id number] [address] [place] [address] Jul, [facility] [address] [id number] [address] [place] [address] Jun, [facility] [address] [id number] [address] [place] [address] Jun, [facility] [address] [facility] [id number] [address] [place] [address] Jun, [facility] [address] [facility] [id number] [address] [place] [address] Jun, Kidney replaced by transplan t V42.0 [facility] [address] [facility] [id number] [address] [place] [address] May, [facility] [address] [facility] [id number] [address] [place] [address] May, Depression with anxiety 300. [address] [facility] [address] [facility] [id number] [address] [place] [address] May, [facility] [address] [id number] [address] [place] [address] May, Kidney replaced by transplan t V42.0 ; Recurrent UTI (urinary tract infection) 599.0 and Absence of menstruation 626.0 [facility] [address] [facility] [id number] [address] [place] [phone] May, [facility] [address] [facility] [id number] [address] [place] [id number] May, Depression with anxiety 300. 4 [place] [address] [place] [id number] [address] [place] [address] May, [facility] [address] [place] [id number] [address] [place] [address] Apr, [facility] [address] [place] [id number] [address] [place] [address] Apr, [facility] [address] [place] [id number] [address] [place] [address] Apr, Depression, major, recurrent , mild 296.31 [facility] [address] [place] [id number] [address] [place] [address] Apr, Depression, major, recurrent , mild 296.31 [place] [address] [place] [id number] [address] [place] [address] Apr, Cervicalgia 723.1 ; Lumbago 724.2 ; Anxiety state, unspecified 300.00 ; Nausea 787.02 ; 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 ; Recurrent UTI (urinary tract infection) 599.0 and Knee pain, bilateral 719.46 [place] [address] [place] [id number] [address] [place] [phone] March, Depression, major, recurrent , mild 296.31 [facility] [address] [place] [id number] [address] [place] [address] March, [facility] [address] [place] [id number] [address] [place] [address] March, [facility] [address] [place] [id number] [address] [place] [address] March, Lumbago 724.2 ; Insomnia, un specified 780.52 ; Depressive disorder, not elsewhere classified 311 ; 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 ; Anxiety 300.00 ; Allergic rhinitis 477.9 and GERD (gastroesophageal reflux disease) 530.81 [facility] [address] [place] [id number] [address] [place] [address] Feb, [facility] [address] [id number] [address] [place] [address], [place] [address] Feb, [facility] [address] [id number] [address] [place] [address], [place] [address] Jan, [facility] [address] [id number] [address] [place] [address], [place] [address] Jan, [facility] [address] [id number] [address] [place] [address], [place] [address] Jan, [facility] [address] [id number] [address] [place] [address], [place] [address] Jan, [facility] [address] [id number] [address] [place] [address], [place] [address] Dec, [facility] [address] [id number] [address] [place] [address], [place] [address] Dec, [facility] [address] [id number] [address] [place] [address], [place] [address] Dec, [facility] [address] [id number] [address] [place] [address], [place] [address] Dec, [facility] [address] [id number] [address] [place] [address], [place] [address] Dec, [facility] [address] [id number] [address] [place] [address], [place] [address] Dec, [facility] [address] [id number] [address] [place] [address], [place] [address] Dec, [facility] [address] [id number] [address] [place] [address], [place] [address] Nov, [facility] [address] [id number] [address] [place] [address], [place] [address] Nov, [facility] [address] [id number] [address] [place] [address], [place] [address] Nov, [facility] [address] [id number] [address] [place] [address] [address] Nov, [facility] [address] [id number] [address] [place] [address], [place] [address] Nov, [facility] [address] [id number] [address] [place] [address], [place] [address] Nov, [facility] [address] [id number] [address] [place] [address], [place] [address] Nov, [facility] [address] [id number] [address] [place] [address], [place] [address] Nov, [facility] [address] [id number] [address] [place] [address], [place] [address] Nov, [facility] [address] [id number] [address] [place] [address], [place] [address] Nov, [facility] [address] [id number] [address] [place] [address], [place] [address] Nov, [facility] [address] [id number] [address] [place] [address], [place] [address] Nov, [facility] [address] [id number] [address] [place] [address], [place] [address] Nov, [facility] [address] [id number] [address] [place] [address], [place] [address] Nov, [facility] [address] [id number] [address] [place] [address], [place] [address] Nov, [facility] [address] [id number] [address] [place] [address], [place] [address] Nov, [facility] [address] [id number] [address] [place] [address], [place] [address] Nov, [facility] [address] [id number] [address] [place] [address], [place] [address] Nov, [facility] [address] [id number] [address] [place] [address], [place] [address] Nov, [facility] [address] [id number] [address] [place] [address], [place] [address] Nov, [facility] [address] [id number] [address] [place] [address], [place] [address] Nov, [facility] [address] [id number] [address] [place] [address], [place] [address] Nov, [facility] [address] [id number] [address] [place] [address], [place] [address] Nov, [facility] [address] [id number] [address] [place] [address], [place] [address] Nov, [facility] [address] [id number] [address] [place] [address], [place] [address] Nov, [facility] [address] [id number] [address] [place] [address], [place] [address] Nov, [facility] [address] [id number] [address] [place] [address], [place] [address] Nov, [facility] [address] [id number] [address] [place] [address], [place] [address] Nov, [facility] [address] [id number] [address] [place] [address], [place] [address] Nov, [facility] [address] [id number] [address] [place] [address], [place] [address] Oct, [facility] [address] [id number] [address] [place] [address], [place] [address] Oct, [facility] [address] [id number] [address] [place] [address], [place] [address] Oct, [facility] [address] [id number] [address] [place] [address], [place] [address] Oct, [facility] [address] [id number] [address] [place] [address], [place] [address] Oct, [facility] [address] [id number] [address] [place] [address], [place] [address] Oct, [facility] [address] [id number] [address] [place] [address], [place] [address] Oct, [facility] [address] [id number] [address] [place] [address], [place] [address] Oct, [facility] [address] [id number] [address] [place] [address], [place] [address] Oct, [facility] [address] [id number] [address] [place] [address], [place] [address] Oct, [facility] [address] [id number] [address] [place] [address], [place] [address] Oct, [facility] [address] [id number] [address] [place] [address], [place] [address] Oct, [facility] [address] [id number] [address] [place] [address], [place] [address] Oct, [facility] [address] [id number] [address] [place] [address], [place] [address] Oct, [facility] [address] [id number] [address] [place] [address], [place] [address] Oct, [facility] [address] [id number] [address] [place] [address], [place] [address] Oct, [facility] [address] [id number] [address] [place] [address], [place] [address] Oct, [facility] [address] [id number] [address] [place] [address], [place] [address] Oct, [facility] [address] [id number] [address] [place] [address], [place] [address] Oct, [facility] [address] [id number] [address] [place] [address], [place] [address] 05 Oct, 2014 [facility] [address] [id number] [address] [place] [address], [place] [address] 05 Oct, 2014 [facility] [address] [id number] [address] [place] [address], [place] [address] Oct, [facility] [address] [id number] [address] [place] [address], [place] [address] Oct, [facility] [address] [id number] [address] [place] [address], [place] [address] Sep, [facility] [address] [id number] [address] [place] [address], [place] [address] Sep, [facility] [address] [id number] [address] [place] [address], [place] [address] Sep, [facility] [address] [id number] [address] [place] [address], [place] [address] Sep, [facility] [address] [id number] [address] [place] [address], [place] [address] Sep, [facility] [address] [id number] [address] [place] [address], [place] [address] Sep, [facility] [address] [id number] [address] [place] [address], [place] [address] Sep, [facility] [address] [id number] [address] [place] [address], [place] [address] Sep, [facility] [address] [id number] [address] [place] [address], [place] [address] Sep, [facility] [address] [id number] [address] [place] [address], [place] [address] Sep, [facility] [address] [id number] [address] [place] [address], [place] [address] Sep, [facility] [address] [id number] [address] [place] [address], [place] [address] Sep, [facility] [address] [id number] [address] [place] [address], [place] [address] Sep, [facility] [address] [id number] [address] [place] [address], [place] [address] Sep, [facility] [address] [id number] [address] [place] [address], [place] [address] Sep, [facility] [address] [id number] [address] [place] [address], [place] [address] Sep, [facility] [address] [id number] [address] [place] [address], [place] [address] Sep, [facility] [address] [id number] [address] [place] [address], [place] [address] Sep, [facility] [address] [id number] [address] [place] [address], [place] [address] Sep, [facility] [address] [id number] [address] [place] [address], [place] [address] Sep, [facility] [address] [id number] [address] [place] [address], [place] [address] Sep, [facility] [address] [id number] [address] [place] [address], [place] [address] Sep, [facility] [address] [id number] [address] [place] [address], [place] [address] Sep, [facility] [address] [id number] [address] [place] [address], [place] [address] Sep, [facility] [address] [id number] [address] [place] [address], [place] [address] Sep, [facility] [address] [id number] [address] [place] [address], [place] [address] Sep, [facility] [address] [id number] [address] [place] [address], [place] [address] Sep, [facility] [address] [id number] [address] [place] [address], [place] [address] Sep, [facility] [address] [id number] [address] [place] [address], [place] [address] Aug, [facility] [address] [id number] [address] [place] [address], [place] [address] Aug, [facility] [address] [id number] [address] [place] [address], [place] [address] Aug, [facility] [address] [id number] [address] [place] [address], [place] [address] Aug, [facility] [address] [id number] [address] [place] [address], [place] [address] Aug, [facility] [address] [id number] [address] [place] [address], [place] [address] Aug, [facility] [address] [id number] [address] [place] [address], [place] [address] Aug, [facility] [address] [id number] [address] [place] [address], [place] [address] Aug, [facility] [address] [id number] [address] [place] [address], [place] [address] Aug, [facility] [address] [id number] [address] [place] [address], [place] [address] Aug, [facility] [address] [id number] [address] [place] [address], [place] [address] Aug, [facility] [address] [id number] [address] [place] [address] Aug, [facility] [address] [id number] [address] [place] [address] Aug, [facility] [address] [id number] [address] [place] [id number] Aug, [facility] [address] [id number] [address] [place] [address], [place] [address] Aug, [facility] [address] [id number] [address] [place] [address], [place] [address] Aug, [facility] [address] [id number] [address] [place] [id number] Aug, [facility] [address] [id number] [address] [place] [id number] 17 Aug, 2013 [facility] [address] [id number] [address] [place] [address], [place] [address] 14 Aug, 2013 [facility] [address] [id number] [address] [place] [id number] 14 Aug, 2013 [facility] [address] [id number] [address] [place] [address], [place] [address] 09 Aug, 2013 [facility] [address] [id number] [address] [place] [id number] 09 Aug, 2013 [facility] [address] [id number] [address] [place] [address], [place] [id number] Aug, 2013 [facility] [address] [id number] [address] [place] [address], [place] [address] Aug, 2013 [facility] [address] [id number] [address] [place] [id number] 08 Aug, 2013 [facility] [address] [id number] [address] [place] [id number] 07 Aug, 2013 [facility] [address] [id number] [address] [place] [id number] Aug, 2013 [facility] [address] [id number] [address] [place] [id number] Aug, 2013 [facility] [address] [id number] [address] [place] [id number] 07 Aug, 2013 [facility] [address] [id number] [address] [place] [id number] 30 Jul, 2013 [facility] [address] [id number] [address] [place] [id number] 30 Jul, 2013 [facility] [address] [id number] [address] [place] [id number] 29 Jul, 2013 [facility] [address] [id number] [address] [place] [id number] 29 Jul, 2013 [facility] [address] [id number] [address] [place] [address] 19 Jul, 2013 [facility] [address] [id number] [address] [place] [address] 19 Jul, 2013 [facility] [address] [id number] [address] [place] [address] 18 Jul, 2013 [facility] [address] [id number] [address] [place] [address] 18 Jul, 2013 [facility] [address] [id number] [address] [place] [address] 17 Jul, 2013 [facility] [address] [id number] [address] [place] [address], [place] [id number] 17 Jul, 2013 [facility] [address] [id number] [address] [place] [address], [place] [address] 10 Jul, 2013 [facility] [address] [id number] [address] [place] [address], [place] [address] 10 Jul, 2013 [facility] [address] [id number] [address] [place] [address], [place] [address] Jun, [facility] [address] [id number] [address] [place] [address], [place] [address] Jun, [facility] [address] [id number] [address] [place] [address], [place] [address] Jun, [facility] [address] [id number] [address] [place] [address], [place] [address] Jun, [facility] [address] [id number] [address] [place] [address], [place] [address] Jun, [facility] [address] [id number] [address] [place] [address], [place] [address] Jun, [facility] [address] [id number] [address] [place] [address], [place] [address] Jun, [facility] [address] [id number] [address] [place] [address] [address] Jun, DR. [facility] [address] [id number] [address] [place] [id number] Jun, [facility] [address] [id number] [address] [place] [id number] Jun, [facility] [address] [id number] [address] [place] [id number] Jun, [facility] [address] [id number] [address] [place] [phone] Jun, [facility] [address] [id number] [address] [place] [phone] May, [facility] [address] [id number] [address] [place] [id number] May, [facility] [address] [facility] [place] [id number] [address] [place] [id number] May, IMMUNIZATIONS No Known Immunizations SOCIAL HISTORY [...]
--- OUTSIDE RECORDS SUMMARY | 2020-05-03 14:37 | XMS REPORT ---
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 20 Active 749881724 Problem Screening breast examination Z12.39 A ctive 905562329 Problem Irritable bowel syndrome without diarrhea K58.9 Active 47144841 Problem Irritable bowel syndrome with diarrhea K58.0 Active 629078401 ALLERGIES No Information ENCOUNTERS Encounter Location Date Diagnosis [facility] [id number] [place] [address] [id number] March, Dental examination Z01.20 [facility] [address] [id number] [address] [place] [address] [id number] Feb, Caries K02.9 [facility] [address] [id number] [address] [place] [address] [id number] Feb, Caries K02.9 [facility] [address] [id number] [address] [place] [address] [id number] Jan, [facility] [address] [id number] [address] [place] [address] [id number] Jan, Caries K02.9 [facility] [address] [id number] [address] [place] [address] [id number] Dec, [facility] [address] [id number] [address] [place] [address] [id number] 18 Dec, 2018 Dental examination Z01.20 an d Caries K02.9 [place] [address] [id number] 14 Sep, 2016 Dental examination Z01.20 [place] [address] [place] [id number] [address] [place] [id number] 08 Jan, 2016 Nausea R11.0 ; Irritable bow el syndrome without diarrhea K58.9 and History of renal transplant Z94.0 [place] [address] [id number] 2015 [place] [address] [address] 11 Dec, 2015 Breast pain N64.4 ; Screenin g breast examination Z12.39 and Mild intermittent asthma without complication J45.20 [place] [address] [address] 10 Dec, 2015 [place] [address] [address] 09 Dec, 2015 Kidney transplant status Z94 .0 ; Personal history of immunosupression therapy Z92.25 ; Recurrent UTI N39.0 and Encounter for screening, unspecified Z13.9 [place] [address] [address] [place] [id number] [address] [place] [phone] Oct, [place] [address] [address] [place] [id number] [address] [place] [phone] Oct, [place] [address] [place] [id number] [address] [place] [address] Oct, [place] [address] [address] Oct, Hiatal hernia K44.9 and Atyp ical chest pain R07.89 [place] [address] [address] [place] [id number] [address] [place] [address] Oct, [place] [address] [id number] [address] [place] [address] Sep, Kidney replaced by transplan t V42.0 and Bilateral low back pain with sciatica, sciatica laterality unspecified M54.40 [facility] [address] [id number] [address] [place] [address] Sep, [facility] [address] [id number] [address] [place] [address] Sep, Kidney replaced by transplan t V42.0 ; Bilateral low back pain with sciatica, sciatica laterality unspecified M54.40 ; Anxiety F41.9 and Primary insomnia F51.01 [facility] [address] [id number] [address] [place] [address] Aug, [facility] [address] [id number] [address] [place] [address] Aug, [facility] [address] [id number] [address] [place] [address] Aug, Kidney transplant status Z94 .0 ; Personal history of immunosupression therapy Z92.25 ; Recurrent urinary tract infection N39.0 and Screening Z13.9 [facility] [address] [id number] [address] [place] [address] Aug, [facility] [address] [id number] [address] [place] [address] Aug, Encounter for aftercare foll owing kidney transplant Z48.22 ; Chronic radicular pain of lower back M54.16 and PND (post-nasal drip) R09.82 [facility] [address] [id number] [address] [place] [address] Jul, [facility] [address] [id number] [address] [place] [address] Jul, [facility] [address] [id number] [address] [place] [phone] Jul, [facility] [address] [id number] [address] [place] [address] Jul, Kidney replaced by transplan t V42.0 ; Depressive disorder, not elsewhere classified 311 ; Anxiety state, unspecified 300.00 ; Insomnia, unspecified 780.52 ; Irritable bowel syndrome 564.1 ; Chronic lumbar pain 724.2 and GERD (gastroesophageal reflux disease) 530.81 [facility] [address] [id number] [address] [place] [address] Jul, [facility] [address] [id number] [address] [place] [address] Jun, [facility] [address] [id number] [address] [place] [address] Jun, [facility] [address] [facility] [id number] [address] [place] [address] Jun, [facility] [address] [facility] [id number] [address] [place] [address] Jun, Kidney replaced by transplan t V42.0 [facility] [address] [facility] [id number] [address] [place] [address] May, [facility] [address] [facility] [id number] [address] [place] [address] May, Depression with anxiety 300. 4 and Skin infection 686.9 [facility] [address] [facility] [id number] [address] [place] [address] May, [facility] [address] [id number] [address] [place] [address] May, Kidney replaced by transplan t V42.0 ; Recurrent UTI (urinary tract infection) 599.0 and Absence of menstruation 626.0 [facility] [address] [facility] [id number] [address] [place] [address] May, [facility] [address] [facility] [id number] [address] [place] [address] May, Depression with anxiety 300. 4 [place] [address] [address] [place] [id number] [address] [place] [address] May, [facility] [address] [place] [id number] [address] [place] [address] Apr, [facility] [address] [place] [id number] [address] [place] [address] Apr, [facility] [address] [place] [id number] [address] [place] [address] Apr, Depression, major, recurrent , mild 296.31 [facility] [address] [place] [id number] [address] [place] [address] Apr, Depression, major, recurrent , mild 296.31 [place] [address] [address] [place] [id number] [address] [place] [address] Apr, Cervicalgia 723.1 ; Lumbago 724.2 ; Anxiety state, unspecified 300.00 ; Nausea 787.02 ; 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 ; Recurrent UTI (urinary tract infection) 599.0 and Knee pain, bilateral 719.46 [place] [address] [address] [place] [id number] [address] [place] [address] March, Depression, major, recurrent , mild 296.31 [facility] [address] [place] [id number] [address] [place] [address] March, [facility] [address] [place] [id number] [address] [place] [address] March, [facility] [address] [place] [id number] [address] [place] [address] March, Lumbago 724.2 ; Insomnia, un specified 780.52 ; Depressive disorder, not elsewhere classified 311 ; 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 ; Anxiety 300.00 ; Allergic rhinitis 477.9 and GERD (gastroesophageal reflux disease) 530.81 [facility] [address] [place] [id number] [address] [place] [address] Feb, [facility] [address] [id number] [address] [place] [address], [place] [address] Feb, [facility] [address] [id number] [address] [place] [address], [place] [address] Jan, [facility] [address] [id number] [address] [place] [address], [place] [address] Jan, [facility] [address] [id number] [address] [place] [address], [place] [address] Jan, [facility] [address] [id number] [address] [place] [address], [place] [address] Jan, [facility] [address] [id number] [address] [place] [address], [place] [address] Dec, [facility] [address] [id number] [address] [place] [address], [place] [address] Dec, [facility] [address] [id number] [address] [place] [address], [place] [address] Dec, [facility] [address] [id number] [address] [place] [address], [place] [address] Dec, [facility] [address] [id number] [address] [place] [address], [place] [address] Dec, [facility] [address] [id number] [address] [place] [address], [place] [address] Dec, [facility] [address] [id number] [address] [place] [address], [place] [address] Dec, [facility] [address] [id number] [address] [place] [address], [place] [address] Nov, [facility] [address] [id number] [address] [place] [address], [place] [address] Nov, [facility] [address] [id number] [address] [place] [address], [place] [address] Nov, [facility] [address] [id number] [address] [place] [address] [address] Nov, [facility] [address] [id number] [address] [place] [address], [place] [address] Nov, [facility] [address] [id number] [address] [place] [address], [place] [address] Nov, [facility] [address] [id number] [address] [place] [address], [place] [address] Nov, [facility] [address] [id number] [address] [place] [address], [place] [address] Nov, [facility] [address] [id number] [address] [place] [address], [place] [address] Nov, [facility] [address] [id number] [address] [place] [address], [place] [address] Nov, [facility] [address] [id number] [address] [place] [address], [place] [address] Nov, [facility] [address] [id number] [address] [place] [address], [place] [address] Nov, [facility] [address] [id number] [address] [place] [address], [place] [address] Nov, [facility] [address] [id number] [address] [place] [address], [place] [address] Nov, [facility] [address] [id number] [address] [place] [address], [place] [address] Nov, [facility] [address] [id number] [address] [place] [address], [place] [address] Nov, [facility] [address] [id number] [address] [place] [address], [place] [address] Nov, [facility] [address] [id number] [address] [place] [address], [place] [address] Nov, [facility] [address] [id number] [address] [place] [address], [place] [address] Nov, [facility] [address] [id number] [address] [place] [address], [place] [address] Nov, [facility] [address] [id number] [address] [place] [address], [place] [address] Nov, [facility] [address] [id number] [address] [place] [address], [place] [address] Nov, [facility] [address] [id number] [address] [place] [address], [place] [address] Nov, [facility] [address] [id number] [address] [place] [address], [place] [address] Nov, [facility] [address] [id number] [address] [place] [address], [place] [address] Nov, [facility] [address] [id number] [address] [place] [address], [place] [address] Nov, [facility] [address] [id number] [address] [place] [address], [place] [address] Nov, [facility] [address] [id number] [address] [place] [address], [place] [address] Nov, [facility] [address] [id number] [address] [place] [address], [place] [address] Nov, [facility] [address] [id number] [address] [place] [address], [place] [address] Oct, [facility] [address] [id number] [address] [place] [address], [place] [address] Oct, [facility] [address] [id number] [address] [place] [address], [place] [address] Oct, [facility] [address] [id number] [address] [place] [address], [place] [address] Oct, [facility] [address] [id number] [address] [place] [address], [place] [address] Oct, [facility] [address] [id number] [address] [place] [address], [place] [address] Oct, [facility] [address] [id number] [address] [place] [address], [place] [address] Oct, [facility] [address] [id number] [address] [place] [address], [place] [address] Oct, [facility] [address] [id number] [address] [place] [address], [place] [address] Oct, [facility] [address] [id number] [address] [place] [address], [place] [address] Oct, [facility] [address] [id number] [address] [place] [address], [place] [address] Oct, [facility] [address] [id number] [address] [place] [address], [place] [address] Oct, [facility] [address] [id number] [address] [place] [address], [place] [address] Oct, [facility] [address] [id number] [address] [place] [address], [place] [address] Oct, [facility] [address] [id number] [address] [place] [address], [place] [address] Oct, [facility] [address] [id number] [address] [place] [address], [place] [address] Oct, [facility] [address] [id number] [address] [place] [address], [place] [address] Oct, [facility] [address] [id number] [address] [place] [address], [place] [address] Oct, [facility] [address] [id number] [address] [place] [address], [place] [address] Oct, [facility] [address] [id number] [address] [place] [address], [place] [address] 05 Oct, 2014 [facility] [address] [id number] [address] [place] [address], [place] [address] 05 Oct, 2014 [facility] [address] [id number] [address] [place] [address], [place] [address] Oct, [facility] [address] [id number] [address] [place] [address], [place] [address] Oct, [facility] [address] [id number] [address] [place] [address], [place] [address] Sep, [facility] [address] [id number] [address] [place] [address], [place] [address] Sep, [facility] [address] [id number] [address] [place] [address], [place] [address] Sep, [facility] [address] [id number] [address] [place] [address], [place] [address] Sep, [facility] [address] [id number] [address] [place] [address], [place] [address] Sep, [facility] [address] [id number] [address] [place] [address], [place] [address] Sep, [facility] [address] [id number] [address] [place] [address], [place] [address] Sep, [facility] [address] [id number] [address] [place] [address], [place] [address] Sep, [facility] [address] [id number] [address] [place] [address], [place] [address] Sep, [facility] [address] [id number] [address] [place] [address], [place] [address] Sep, [facility] [address] [id number] [address] [place] [address], [place] [address] Sep, [facility] [address] [id number] [address] [place] [address], [place] [address] Sep, [facility] [address] [id number] [address] [place] [address], [place] [address] Sep, [facility] [address] [id number] [address] [place] [address], [place] [address] Sep, [facility] [address] [id number] [address] [place] [address], [place] [address] Sep, [facility] [address] [id number] [address] [place] [address], [place] [address] Sep, [facility] [address] [id number] [address] [place] [address], [place] [address] Sep, [facility] [address] [id number] [address] [place] [address], [place] [address] Sep, [facility] [address] [id number] [address] [place] [address], [place] [address] Sep, [facility] [address] [id number] [address] [place] [address], [place] [address] Sep, [facility] [address] [id number] [address] [place] [address], [place] [address] Sep, [facility] [address] [id number] [address] [place] [address], [place] [address] Sep, [facility] [address] [id number] [address] [place] [address], [place] [address] Sep, [facility] [address] [id number] [address] [place] [address], [place] [address] Sep, [facility] [address] [id number] [address] [place] [address], [place] [address] Sep, [facility] [address] [id number] [address] [place] [address], [place] [address] Sep, [facility] [address] [id number] [address] [place] [address], [place] [address] Sep, [facility] [address] [id number] [address] [place] [address], [place] [address] Sep, [facility] [address] [id number] [address] [place] [address], [place] [address] Aug, [facility] [address] [id number] [address] [place] [address], [place] [address] Aug, [facility] [address] [id number] [address] [place] [address], [place] [id number] Aug, [facility] [address] [id number] [address] [place] [address], [place] [id number] Aug, [facility] [address] [id number] [address] [place] [address], [place] [address] Aug, [facility] [address] [id number] [address] [place] [address], [place] [id number] Aug, [facility] [address] [id number] [address] [place] [address], [place] [address] Aug, [facility] [address] [id number] [address] [place] [address], [place] [address] Aug, [facility] [address] [id number] [address] [place] [address], [place] [address] Aug, [facility] [address] [id number] [address] [place] [address], [place] [address] Aug, [facility] [address] [id number] [address] [place] [address], [place] [address] Aug, [facility] [address] [id number] [address] [place] [id number] Aug, [facility] [address] [id number] [address] [place] [id number] Aug, [facility] [address] [id number] [address] [place] [id number] Aug, [facility] [address] [id number] [address] [place] [address], [place] [id number] Aug, [facility] [address] [id number] [address] [place] [address], [place] [address] Aug, [facility] [address] [id number] [address] [place] [id number] Aug, [facility] [address] [id number] [address] [place] [id number] 17 Aug, 2013 [facility] [address] [id number] [address] [place] [address], [place] [address] 14 Aug, 2013 [facility] [address] [id number] [address] [place] [id number] 14 Aug, 2013 [facility] [address] [id number] [address] [place] [address], [place] [address] 09 Aug, 2013 [facility] [address] [id number] [address] [place] [id number] 09 Aug, 2013 [facility] [address] [id number] [address] [place] [address], [place] [address] Aug, 2013 [facility] [address] [id number] [address] [place] [address], [place] [address] Aug, 2013 [facility] [address] [id number] [address] [place] [id number] 08 Aug, 2013 [facility] [address] [id number] [address] [place] [id number] 07 Aug, 2013 [facility] [address] [id number] [address] [place] [id number] Aug, 2013 [facility] [address] [id number] [address] [place] [id number] Aug, 2013 [facility] [address] [id number] [address] [place] [id number] 07 Aug, 2013 [facility] [address] [id number] [address] [place] [id number] 30 Jul, 2013 [facility] [address] [id number] [address] [place] [id number] 30 Jul, 2013 [facility] [address] [id number] [address] [place] [id number] 29 Jul, 2013 [facility] [address] [id number] [address] [place] [id number] 29 Jul, 2013 [facility] [address] [id number] [address] [place] [address] 19 Jul, 2013 [facility] [address] [id number] [address] [place] [address] 19 Jul, 2013 [facility] [address] [id number] [address] [place] [address] 18 Jul, 2013 [facility] [address] [id number] [address] [place] [address] 18 Jul, 2013 [facility] [address] [id number] [address] [place] [address] 17 Jul, 2013 [facility] [address] [id number] [address] [place] [address], [place] [address] 17 Jul, 2013 [facility] [address] [id number] [address] [place] [address], [place] [address] 10 Jul, 2013 [facility] [address] [id number] [address] [place] [address], [place] [address] 10 Jul, 2013 [facility] [address] [id number] [address] [place] [address], [place] [address] Jun, [facility] [address] [id number] [address] [place] [address], [place] [address] Jun, [facility] [facility] [address] [id number] [address] [place] [address], [place] [id number] Jun, [facility] [address] [id number] [address] [place] [address], [place] [id number] Jun, [facility] [address] [id number] [address] [place] [address], [place] [address] Jun, [facility] [address] [id number] [address] [place] [address], [place] [id number] Jun, [facility] [address] [id number] [address] [place] [address], [place] [id number] Jun, [facility] [address] [id number] [address] [place] [address] [address] Jun, [facility] [address] [id number] [address] [place] [id number] Jun, [facility] [address] [id number] [address] [place] [id number] Jun, [facility] [address] [id number] [address] [place] [id number] Jun, [facility] [address] [id number] [address] [place] [id number] Jun, [facility] [address] [id number] [address] [place] [id number] May, [facility] [address] [id number] [address] [place] [id number] May, [facility] [address] [facility] [id number] [address] [place] [id number] May, IMMUNIZATIONS No Known Immunizations SOCIAL HISTORY [...]
--- OUTSIDE RECORDS SUMMARY | 2020-05-03 14:37 | XMS REPORT ---
Author Author Tracee AVILA Organization [facility] Address [address] [place] [address] Care Team Providers Care Binder Operator Name Role Phone SARAI AVILA Unavailable PROBLEMS Type Condition ICD9-CM Code [id number] Code Onset Dates Condition S tatus SNOMED Code Problem Primary insomnia F51.01 Active 397 2004 Problem Breast pain N64.4 Active 80058486 Problem History of renal transplant Z94.0 Ac tive 246171258 Problem Violation of controlled substance agreement Z91.14 Active 426563771 Problem Mild intermittent asthma without complication J45. 20 Active 183061847 Problem Screening breast examination Z12.39 A ctive 862625300 Problem Irritable bowel syndrome without diarrhea K58.9 Active 92362174 Problem Irritable bowel syndrome with diarrhea K58.0 Active [id number] ALLERGIES No Information ENCOUNTERS Encounter Location Date Diagnosis [facility] [id number] [place] [address] [id number] March, Dental examination Z01.20 [facility] [address] [id number] [address] [place] [address] [id number] Feb, Caries K02.9 [facility] [address] [id number] [address] [place] [address] [id number] Feb, Caries K02.9 [facility] [address] [id number] [address] [place] [address] [id number] Jan, [facility] [address] [id number] [address] [place] [address] [id number] Jan, Caries K02.9 [facility] [address] [id number] [address] [place] [address] [id number] Dec, [facility] [address] [id number] [address] [place] [address] [id number] Dec, 2018 Dental examination Z01.20 an d Caries K02.9 [place] [address] [id number] 14 Sep, 2016 Dental examination Z01.20 [place] [address] [place] [id number] [address] [place] [id number] 08 Jan, 2016 Nausea R11.0 ; Irritable bow el syndrome without diarrhea K58.9 and History of renal transplant Z94.0 [place] [address] [id number] 2015 [place] [address] [address] 11 Dec, 2015 Breast pain N64.4 ; Screenin g breast examination Z12.39 and Mild intermittent asthma without complication J45.20 [place] [address] [address] 10 Dec, 2015 [place] [address] [address] 09 Dec, 2015 Kidney transplant status Z94 .0 ; Personal history of immunosupression therapy Z92.25 ; Recurrent UTI N39.0 and Encounter for screening, unspecified Z13.9 [place] [address] [place] [id number] [address] [place] [phone] Oct, [place] [address] [place] [id number] [address] [place] [phone] Oct, [place] [address] [place] [id number] [address] [place] [phone] Oct, [place] [address] [address] Oct, Hiatal hernia K44.9 and Atyp ical chest pain R07.89 [place] [address] [place] [id number] [address] [place] [phone] Oct, [place] [address] [id number] [address] [place] [address] Sep, Kidney replaced by transplan t V42.0 and Bilateral low back pain with sciatica, sciatica laterality unspecified M54.40 [facility] [address] [id number] [address] [place] [address] Sep, [facility] [address] [id number] [address] [place] [phone] Sep, Kidney replaced by transplan t V42.0 ; Bilateral low back pain with sciatica, sciatica laterality unspecified M54.40 ; Anxiety F41.9 and Primary insomnia F51.01 [facility] [address] [id number] [address] [place] [phone] Aug, [facility] [address] [id number] [address] [place] [phone] Aug, [facility] [address] [id number] [address] [place] [id number] Aug, Kidney transplant status Z94 .0 ; Personal history of immunosupression therapy Z92.25 ; Recurrent urinary tract infection N39.0 and Screening Z13.9 [facility] [address] [id number] [address] [place] [phone] Aug, [facility] [address] [id number] [address] [place] [address] Aug, Encounter for aftercare foll owing kidney transplant Z48.22 ; Chronic radicular pain of lower back M54.16 and PND (post-nasal drip) R09.82 [facility] [address] [id number] [address] [place] [address] Jul, [facility] [address] [id number] [address] [place] [address] Jul, [facility] [address] [id number] [address] [place] [phone] Jul, [facility] [address] [id number] [address] [place] [address] Jul, Kidney replaced by transplan t V42.0 ; Depressive disorder, not elsewhere classified 311 ; Anxiety state, unspecified 300.00 ; Insomnia, unspecified 780.52 ; Irritable bowel syndrome 564.1 ; Chronic lumbar pain 724.2 and GERD (gastroesophageal reflux disease) 530.81 [facility] [address] [id number] [address] [place] [id number] Jul, [facility] [address] [id number] [address] [place] [id number] Jun, [facility] [address] [id number] [address] [place] [phone] Jun, [facility] [address] [facility] [id number] [address] [place] [phone] Jun, [facility] [address] [facility] [id number] [address] [place] [phone] Jun, Kidney replaced by transplan t V42.0 [facility] [address] [facility] [id number] [address] [place] [phone] May, [facility] [address] [facility] [id number] [address] [place] [phone] May, Depression with anxiety 300. 4 and Skin infection 686.9 [facility] [address] [facility] [id number] [address] [place] [address] May, [facility] [address] [id number] [address] [place] [phone] May, Kidney replaced by transplan t V42.0 ; Recurrent UTI (urinary tract infection) 599.0 and Absence of menstruation 626.0 [facility] [address] [facility] [id number] [address] [place] [phone] May, [facility] [address] [facility] [id number] [address] [place] [phone] May, Depression with anxiety 300. 4 [place] [address] [place] [id number] [address] [place] [address] May, [facility] [address] [place] [id number] [address] [place] [address] Apr, [facility] [address] [place] [id number] [address] [place] [address] Apr, [facility] [address] [place] [id number] [address] [place] [address] Apr, Depression, major, recurrent , mild 296.31 [facility] [address] [place] [id number] [address] [place] [id number] Apr, Depression, major, recurrent , mild 296.31 [place] [address] [place] [id number] [address] [place] [address] Apr, Cervicalgia 723.1 ; Lumbago 724.2 ; Anxiety state, unspecified 300.00 ; Nausea 787.02 ; 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 ; Recurrent UTI (urinary tract infection) 599.0 and Knee pain, bilateral 719.46 [place] [address] [place] [id number] [address] [place] [id number] March, Depression, major, recurrent , mild 296.31 [facility] [address] [place] [id number] [address] [place] [id number] March, [facility] [address] [place] [id number] [address] [place] [phone] March, [facility] [address] [place] [id number] [address] [place] [phone] March, Lumbago 724.2 ; Insomnia, un specified 780.52 ; Depressive disorder, not elsewhere classified 311 ; 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 ; Anxiety 300.00 ; Allergic rhinitis 477.9 and GERD (gastroesophageal reflux disease) 530.81 [facility] [address] [place] [id number] [address] [place] [phone] Feb, [facility] [address] [id number] [address] [place] [address], [place] [address] Feb, [facility] [address] [id number] [address] [place] [address], [place] [address] Jan, [facility] [address] [id number] [address] [place] [address], [place] [address] Jan, [facility] [address] [id number] [address] [place] [address], [place] [address] Jan, [facility] [address] [id number] [address] [place] [address], [place] [address] Jan, [facility] [address] [id number] [address] [place] [address], [place] [address] Dec, [facility] [address] [id number] [address] [place] [address], [place] [address] Dec, [facility] [address] [id number] [address] [place] [address], [place] [address] Dec, [facility] [address] [id number] [address] [place] [address], [place] [address] Dec, [facility] [address] [id number] [address] [place] [address], [place] [address] Dec, [facility] [address] [id number] [address] [place] [address], [place] [address] Dec, [facility] [address] [id number] [address] [place] [address], [place] [address] Dec, [facility] [address] [id number] [address] [place] [address], [place] [address] Nov, [facility] [address] [id number] [address] [place] [address], [place] [address] Nov, [facility] [address] [id number] [address] [place] [address], [place] [address] Nov, [facility] [address] [id number] [address] [place] [address] [address] Nov, [facility] [address] [id number] [address] [place] [address], [place] [address] Nov, [facility] [address] [id number] [address] [place] [address], [place] [address] Nov, [facility] [address] [id number] [address] [place] [address], [place] [address] Nov, [facility] [address] [id number] [address] [place] [address], [place] [address] Nov, [facility] [address] [id number] [address] [place] [address], [place] [address] Nov, [facility] [address] [id number] [address] [place] [address], [place] [address] Nov, [facility] [address] [id number] [address] [place] [address], [place] [address] Nov, [facility] [address] [id number] [address] [place] [address], [place] [address] Nov, [facility] [address] [id number] [address] [place] [address], [place] [address] Nov, [facility] [address] [id number] [address] [place] [address], [place] [address] Nov, [facility] [address] [id number] [address] [place] [address], [place] [address] Nov, [facility] [address] [id number] [address] [place] [address], [place] [address] Nov, [facility] [address] [id number] [address] [place] [address], [place] [address] Nov, [facility] [address] [id number] [address] [place] [address], [place] [address] Nov, [facility] [address] [id number] [address] [place] [address], [place] [address] Nov, [facility] [address] [id number] [address] [place] [address], [place] [address] Nov, [facility] [address] [id number] [address] [place] [address], [place] [address] Nov, [facility] [address] [id number] [address] [place] [address], [place] [address] Nov, [facility] [address] [id number] [address] [place] [address], [place] [address] Nov, [facility] [address] [id number] [address] [place] [address], [place] [address] Nov, [facility] [address] [id number] [address] [place] [address], [place] [address] Nov, [facility] [address] [id number] [address] [place] [address], [place] [address] Nov, [facility] [address] [id number] [address] [place] [address], [place] [address] Nov, [facility] [address] [id number] [address] [place] [address], [place] [address] Nov, [facility] [address] [id number] [address] [place] [address], [place] [address] Nov, [facility] [address] [id number] [address] [place] [address], [place] [address] Oct, [facility] [address] [id number] [address] [place] [address], [place] [address] Oct, [facility] [address] [id number] [address] [place] [address], [place] [address] Oct, [facility] [address] [id number] [address] [place] [address], [place] [address] Oct, [facility] [address] [id number] [address] [place] [address], [place] [address] Oct, [facility] [address] [id number] [address] [place] [address], [place] [address] Oct, [facility] [address] [id number] [address] [place] [address], [place] [address] Oct, [facility] [address] [id number] [address] [place] [address], [place] [address] Oct, [facility] [address] [id number] [address] [place] [address], [place] [address] Oct, [facility] [address] [id number] [address] [place] [address], [place] [address] Oct, [facility] [address] [id number] [address] [place] [address], [place] [address] Oct, [facility] [address] [id number] [address] [place] [address], [place] [address] Oct, [facility] [address] [id number] [address] [place] [address], [place] [address] Oct, [facility] [address] [id number] [address] [place] [address], [place] [address] Oct, [facility] [address] [id number] [address] [place] [address], [place] [address] Oct, [facility] [address] [id number] [address] [place] [address], [place] [address] Oct, [facility] [address] [id number] [address] [place] [address], [place] [address] Oct, [facility] [address] [id number] [address] [place] [address], [place] [address] Oct, [facility] [address] [id number] [address] [place] [address], [place] [address] Oct, [facility] [address] [id number] [address] [place] [address], [place] [address] 05 Oct, 2014 [facility] [address] [id number] [address] [place] [address], [place] [address] 05 Oct, 2014 [facility] [address] [id number] [address] [place] [address], [place] [address] Oct, [facility] [address] [id number] [address] [place] [address], [place] [address] Oct, [facility] [address] [id number] [address] [place] [address], [place] [address] Sep, [facility] [address] [id number] [address] [place] [address], [place] [address] Sep, [facility] [address] [id number] [address] [place] [address], [place] [address] Sep, [facility] [address] [id number] [address] [place] [address], [place] [address] Sep, [facility] [address] [id number] [address] [place] [address], [place] [address] Sep, [facility] [address] [id number] [address] [place] [address], [place] [address] Sep, [facility] [address] [id number] [address] [place] [address], [place] [address] Sep, [facility] [address] [id number] [address] [place] [address], [place] [address] Sep, [facility] [address] [id number] [address] [place] [address], [place] [address] Sep, [facility] [address] [id number] [address] [place] [address], [place] [address] Sep, [facility] [address] [id number] [address] [place] [address], [place] [address] Sep, [facility] [address] [id number] [address] [place] [address], [place] [address] Sep, [facility] [address] [id number] [address] [place] [address], [place] [address] Sep, [facility] [address] [id number] [address] [place] [address], [place] [address] Sep, [facility] [address] [id number] [address] [place] [address], [place] [address] Sep, [facility] [address] [id number] [address] [place] [address], [place] [address] Sep, [facility] [address] [id number] [address] [place] [address], [place] [address] Sep, [facility] [address] [id number] [address] [place] [address], [place] [address] Sep, [facility] [address] [id number] [address] [place] [address], [place] [address] Sep, [facility] [address] [id number] [address] [place] [address], [place] [address] Sep, [facility] [address] [id number] [address] [place] [address], [place] [address] Sep, [facility] [address] [id number] [address] [place] [address], [place] [address] Sep, [facility] [address] [id number] [address] [place] [address], [place] [address] Sep, [facility] [address] [id number] [address] [place] [address], [place] [address] Sep, [facility] [address] [id number] [address] [place] [address], [place] [address] Sep, [facility] [address] [id number] [address] [place] [address], [place] [address] Sep, [facility] [address] [id number] [address] [place] [address], [place] [address] Sep, [facility] [address] [id number] [address] [place] [address], [place] [address] Sep, [facility] [address] [id number] [address] [place] [address], [place] [address] Aug, [facility] [address] [id number] [address] [place] [address], [place] [address] Aug, [facility] [address] [id number] [address] [place] [address], [place] [address] Aug, [facility] [address] [id number] [address] [place] [address], [place] [address] Aug, [facility] [address] [id number] [address] [place] [address], [place] [address] Aug, [facility] [address] [id number] [address] [place] [address], [place] [address] Aug, [facility] [address] [id number] [address] [place] [address], [place] [address] Aug, [facility] [address] [id number] [address] [place] [address], [place] [address] Aug, [facility] [address] [id number] [address] [place] [address], [place] [address] Aug, [facility] [address] [id number] [address] [place] [address], [place] [address] Aug, [facility] [address] [id number] [address] [place] [address], [place] [address] Aug, [facility] [address] [id number] [address] [place] [id number] Aug, [facility] [address] [id number] [address] [place] [id number] Aug, [facility] [address] [id number] [address] [place] [id number] Aug, [facility] [address] [id number] [address] [place] [address], [place] [address] Aug, [facility] [address] [id number] [address] [place] [address], [place] [address] Aug, [facility] [address] [id number] [address] [place] [id number] Aug, [facility] [address] [id number] [address] [place] [id number] 17 Aug, 2013 [facility] [address] [id number] [address] [place] [address], [place] [address] 14 Aug, 2013 [facility] [address] [id number] [address] [place] [id number] 14 Aug, 2013 [facility] [address] [id number] [address] [place] [address], [place] [address] 09 Aug, 2013 [facility] [address] [id number] [address] [place] [id number] 09 Aug, 2013 [facility] [address] [id number] [address] [place] [address], [place] [address] Aug, 2013 [facility] [address] [id number] [address] [place] [address], [place] [address] Aug, 2013 [facility] [address] [id number] [address] [place] [id number] 08 Aug, 2013 [facility] [address] [id number] [address] [place] [id number] 07 Aug, 2013 [facility] [address] [id number] [address] [place] [id number] Aug, 2013 [facility] [address] [id number] [address] [place] [id number] Aug, 2013 [facility] [address] [id number] [address] [place] [id number] 07 Aug, 2013 [facility] [address] [id number] [address] [place] [id number] 30 Jul, 2013 [facility] [address] [id number] [address] [place] [id number] 30 Jul, 2013 [facility] [address] [id number] [address] [place] [id number] 29 Jul, 2013 [facility] [address] [id number] [address] [place] [id number] 29 Jul, 2013 [facility] [address] [id number] [facility] [place] [address] 19 Jul, 2013 [facility] [address] [id number] [facility] [place] [address] 19 Jul, 2013 [facility] [address] [id number] [facility] [place] [address] 18 Jul, 2013 [facility] [address] [id number] [facility] [place] [address] 18 Jul, 2013 [facility] [address] [id number] [facility] [place] [address] 17 Jul, 2013 [facility] [address] [id number] [address] [place] [address], [place] [address] 17 Jul, 2013 [facility] [address] [id number] [address] [place] [address], [place] [address] 10 Jul, 2013 [facility] [address] [id number] [address] [place] [address], [place] [address] 10 Jul, 2013 [facility] [address] [id number] [address] [place] [address], [place] [address] Jun, [facility] [address] [id number] [address] [place] [address], [place] [address] Jun, [facility] [address] [id number] [address] [place] [address], [place] [address] Jun, [facility] [address] [id number] [address] [place] [address], [place] [address] Jun, [facility] [address] [id number] [address] [place] [address], [place] [address] Jun, [facility] [address] [id number] [address] [place] [address], [place] [address] Jun, [facility] [address] [id number] [address] [place] [address], [place] [address] Jun, [facility] [address] [id number] [address] [place] [address] [address] Jun, [facility] [address] [id number] [address] [place] [id number] Jun, [facility] [address] [id number] [address] [place] [id number] Jun, [facility] [address] [id number] [address] [place] [id number] Jun, [facility] [address] [id number] [address] [place] [id number] Jun, [facility] [address] [id number] [address] [place] [id number] May, [facility] [address] [id number] [address] [place] [id number] May, [facility] [address] [facility] [id number] [address] [place] [id number] May, IMMUNIZATIONS No Known Immunizations SOCIAL HISTORY [...]
--- OUTSIDE RECORDS SUMMARY | 2020-05-03 14:37 | XMS REPORT ---
Author Author Tracee RETANA Organization [facility] Address Unknown Care Team Providers Care Program Schedule Clerk Name Role Phone GAIL RETANA Unavailable PROBLEMS Type Condition ICD9-CM Code AXW46-CK Code Onset Dates Condition S tatus SNOMED Code Problem Primary insomnia F51.01 Active 397 2004 Problem Breast pain N64.4 Active 35837163 Problem History of renal transplant Z94.0 Ac tive 295390178 Problem Violation of controlled substance agreement Z91.14 Active 554825048 Problem Mild intermittent asthma without complication J45. 20 Active 311011287 Problem Screening breast examination Z12.39 A ctive 733260603 Problem Irritable bowel syndrome without diarrhea K58.9 Active 68659102 Problem Irritable bowel syndrome with diarrhea K58.0 Active [id number] ALLERGIES No Information ENCOUNTERS Encounter Location Date Diagnosis [facility] [address] [id number] [address] [place] [address] [id number] March, Dental examination Z01.20 [facility] [address] [id number] [address] [place] [address] [id number] Feb, Caries K02.9 [facility] [address] [id number] [address] [place] [address] [id number] Feb, Caries K02.9 [facility] [address] [id number] [address] [place] [address] [id number] Jan, [facility] [address] [id number] [address] [place] [address] [id number] Jan, Caries K02.9 [facility] [address] [id number] [address] [place] [address] [id number] Dec, [facility] [address] [id number] [address] [place] [address] [id number] Dec, Dental examination Z01.20 an d Caries K02.9 [place] [id number] [address] 14 Sep, 2016 Dental examination Z01.20 [place] [address] [address] [place] [id number] [place] [address] 08 Jan, 2016 Nausea R11.0 ; Irritable bow el syndrome without diarrhea K58.9 and History of renal transplant Z94.0 [place] [address] [address] 2015 [place] [address] [address] 11 Dec, 2015 Breast pain N64.4 ; Screenin g breast examination Z12.39 and Mild intermittent asthma without complication J45.20 [place] [address] [address] 10 Dec, 2015 [place] [address] [address] 09 Dec, 2015 Kidney transplant status Z94 .0 ; Personal history of immunosupression therapy Z92.25 ; Recurrent UTI N39.0 and Encounter for screening, unspecified Z13.9 [place] [address] [address] Oct, [place] [address] [address] Oct, [place] [address] [address] Oct, [place] [address] [address] Oct, Hiatal hernia K44.9 and Atyp ical chest pain R07.89 [place] [address] [address] Oct, [place] [address] [address] Sep, Kidney replaced by transplan t V42.0 and Bilateral low back pain with sciatica, sciatica laterality unspecified M54.40 [facility] [address] [id number] [address] [place] [address] Sep, [facility] [address] [id number] [address] [place] [address] Sep, Kidney replaced by transplan t V42.0 ; Bilateral low back pain with sciatica, sciatica laterality unspecified M54.40 ; Anxiety F41.9 and Primary insomnia F51.01 [facility] [address] [id number] [address] [place] [address] Aug, [facility] [address] [id number] [address] [place] [address] Aug, [facility] [address] [id number] [address] [place] [address] Aug, Kidney transplant status Z94 .0 ; Personal history of immunosupression therapy Z92.25 ; Recurrent urinary tract infection N39.0 and Screening Z13.9 [facility] [address] [id number] [address] [place] [address] Aug, [facility] [address] [id number] [address] [place] [address] Aug, Encounter for aftercare foll owing kidney transplant Z48.22 ; Chronic radicular pain of lower back M54.16 and PND (post-nasal drip) R09.82 [facility] [address] [id number] [address] [place] [address] Jul, [facility] [address] [id number] [address] [place] [address] Jul, [facility] [address] [id number] [address] [place] [address] Jul, [facility] [address] [id number] [address] [place] [address] Jul, Kidney replaced by transplan t V42.0 ; Depressive disorder, not elsewhere classified 311 ; Anxiety state, unspecified 300.00 ; Insomnia, unspecified 780.52 ; Irritable bowel syndrome 564.1 ; Chronic lumbar pain 724.2 and GERD (gastroesophageal reflux disease) 530.81 [facility] [address] [facility] [id number] [address] [place] [address] Jul, [facility] [address] [id number] [address] [place] [address] Jun, [facility] [address] [id number] [address] [place] [address] Jun, [place] [address] [id number] [address] [place] [address] Jun, [place] [address] [address] [facility] [id number] [address] [place] [address] Jun, Kidney replaced by transplan t V42.0 [facility] [address] [id number] [address] [place] [address] May, [facility] [address] [id number] [address] [place] [address] May, Depression with anxiety 300. 4 and Skin infection 686.9 [place] [address] [address] [facility] [id number] [address] [place] [address] May, [facility] [address] [id number] [address] [place] [address] May, Kidney replaced by transplan t V42.0 ; Recurrent UTI (urinary tract infection) 599.0 and Absence of menstruation 626.0 [place] [address] [address] [facility] [id number] [address] [place] [address] May, [facility] [address] [facility] [id number] [address] [place] [address] May, Depression with anxiety 300. 4 [place] [address] [address] [facility] [id number] [address] [place] [address] May, [facility] [address] [place] [id number] [address] [place] [address] Apr, [place] [address] [address] Apr, [place] [address] [address] Apr, Depression, major, recurrent , mild 296.31 [place] [address] [address] Apr, Depression, major, recurrent , mild 296.31 [place] [address] [address] Apr, Cervicalgia 723.1 ; Lumbago 724.2 ; Anxiety state, unspecified 300.00 ; Nausea 787.02 ; 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 ; Recurrent UTI (urinary tract infection) 599.0 and Knee pain, bilateral 719.[address] [address] March, Depression, major, recurrent , mild 296.31 [place] [address] [address] [place] [id number] [address] [place] [address] March, [place] [address] [address] March, [place] [address] [address] March, Lumbago 724.2 ; Insomnia, un specified 780.52 ; Depressive disorder, not elsewhere classified 311 ; 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 ; Anxiety 300.00 ; Allergic rhinitis 477.9 and GERD (gastroesophageal reflux disease) 530.81 [place] [address] [address] [place] [id number] [address] [place] [address] Feb, [place] [address] [address] Feb, [facility] [address] [id number] [address] [place] [address], [place] [address] Jan, [facility] [address] [id number] [address] [place] [address], [place] [address] Jan, [facility] [address] [id number] [address] [place] [address], [place] [address] Jan, [facility] [address] [id number] [address] [place] [address], [place] [address] Jan, [facility] [address] [id number] [address] [place] [address], [place] [address] Dec, [facility] [address] [id number] [address] [place] [address], [place] [address] Dec, [facility] [address] [id number] [address] [place] [address], [place] [address] Dec, [facility] [address] [id number] [address] [place] [address], [place] [address] Dec, [facility] [address] [id number] [address] [place] [address], [place] [address] Dec, [facility] [address] [id number] [address] [place] [address], [place] [address] Dec, [facility] [address] [id number] [address] [place] [address], [place] [address] Dec, [facility] [address] [id number] [address] [place] [address], [place] [address] Nov, [facility] [address] [id number] [address] [place] [address], [place] [address] Nov, [facility] [address] [id number] [address] [place] [address], [place] [address] Nov, [facility] [address] [id number] [address] [place] [address], [place] [address] Nov, [facility] [address] [id number] [address] [place] [address], [place] [address] Nov, [facility] [address] [id number] [address] [place] [address], [place] [address] Nov, [facility] [address] [id number] [address] [place] [address], [place] [address] Nov, [facility] [address] [id number] [address] [place] [address], [place] [address] Nov, [facility] [address] [id number] [address] [place] [address], [place] [address] Nov, [facility] [address] [id number] [address] [place] [address], [place] [address] Nov, [facility] [address] [id number] [address] [place] [address], [place] [address] Nov, [facility] [address] [id number] [address] [place] [address], [place] [address] Nov, [facility] [address] [id number] [address] [place] [address], [place] [address] Nov, [facility] [address] [id number] [address] [place] [address], [place] [address] Nov, [facility] [address] [id number] [address] [place] [address], [place] [address] Nov, [facility] [address] [id number] [address] [place] [address], [place] [address] Nov, [facility] [address] [id number] [address] [place] [address], [place] [address] Nov, [facility] [address] [id number] [address] [place] [address], [place] [address] Nov, [facility] [address] [id number] [address] [place] [address], [place] [address] Nov, [facility] [address] [id number] [address] [place] [address], [place] [address] Nov, [facility] [address] [id number] [address] [place] [address], [place] [address] Nov, [facility] [address] [id number] [address] [place] [address], [place] [address] Nov, [facility] [address] [id number] [address] [place] [address], [place] [address] Nov, [facility] [address] [id number] [address] [place] [address], [place] [address] Nov, [facility] [address] [id number] [address] [place] [address], [place] [address] Nov, [facility] [address] [id number] [address] [place] [address], [place] [address] Nov, [facility] [address] [id number] [address] [place] [address], [place] [address] Nov, [facility] [address] [id number] [address] [place] [address], [place] [address] Nov, [facility] [address] [id number] [address] [place] [address], [place] [address] Nov, [facility] [address] [id number] [address] [place] [address], [place] [address] Oct, [facility] [address] [id number] [address] [place] [address], [place] [address] Oct, [facility] [address] [id number] [address] [place] [address], [place] [address] Oct, [facility] [address] [id number] [address] [place] [address], [place] [address] Oct, [facility] [address] [id number] [address] [place] [address], [place] [address] Oct, [facility] [address] [id number] [address] [place] [address], [place] [address] Oct, [facility] [address] [id number] [address] [place] [address], [place] [address] Oct, [facility] [address] [id number] [address] [place] [address], [place] [address] Oct, [facility] [address] [id number] [address] [place] [address], [place] [address] Oct, [facility] [address] [id number] [address] [place] [address], [place] [address] Oct, [facility] [address] [id number] [address] [place] [address], [place] [address] Oct, [facility] [address] [id number] [address] [place] [address], [place] [address] Oct, [facility] [address] [id number] [address] [place] [address], [place] [address] 17 Oct, 2014 [facility] [address] [id number] [address] [place] [address], [place] [address] 17 Oct, 2014 [facility] [address] [id number] [address] [place] [address], [place] [address] 16 Oct, 2014 [facility] [address] [id number] [address] [place] [address], [place] [address] 16 Oct, 2014 [facility] [address] [id number] [address] [place] [address], [place] [address] 13 Oct, 2014 [facility] [address] [id number] [address] [place] [address], [place] [address] 12 Oct, 2014 [facility] [address] [id number] [address] [place] [address], [place] [address] 12 Oct, 2014 [facility] [address] [id number] [address] [place] [address], [place] [address] 05 Oct, 2014 [facility] [address] [id number] [address] [place] [address], [place] [address] 05 Oct, 2014 [facility] [address] [id number] [address] [place] [address], [place] [address] Oct, [facility] [address] [id number] [address] [place] [address], [place] [address] Oct, [facility] [address] [id number] [address] [place] [address], [place] [address] Sep, [facility] [address] [id number] [address] [place] [address], [place] [address] Sep, [facility] [address] [id number] [address] [place] [address], [place] [address] Sep, [facility] [address] [id number] [address] [place] [address], [place] [address] Sep, [facility] [address] [id number] [address] [place] [address], [place] [address] Sep, [facility] [address] [id number] [address] [place] [address], [place] [address] Sep, [facility] [address] [id number] [address] [place] [address], [place] [address] Sep, [facility] [address] [id number] [address] [place] [address], [place] [address] Sep, [facility] [address] [id number] [address] [place] [address], [place] [address] Sep, [facility] [address] [id number] [address] [place] [address], [place] [address] Sep, [facility] [address] [id number] [address] [place] [address], [place] [address] Sep, [facility] [address] [id number] [address] [place] [address], [place] [address] Sep, [facility] [address] [id number] [address] [place] [address], [place] [address] Sep, [facility] [address] [id number] [address] [place] [address], [place] [address] Sep, [facility] [address] [id number] [address] [place] [address], [place] [address] Sep, [facility] [address] [id number] [address] [place] [address], [place] [address] Sep, [facility] [address] [id number] [address] [place] [address], [place] [address] Sep, [facility] [address] [id number] [address] [place] [address], [place] [address] Sep, [facility] [address] [id number] [address] [place] [address], [place] [address] Sep, [facility] [address] [id number] [address] [place] [address], [place] [address] Sep, [facility] [address] [id number] [address] [place] [address], [place] [address] Sep, [facility] [address] [id number] [address] [place] [address], [place] [address] Sep, [facility] [address] [id number] [address] [place] [address], [place] [address] Sep, [facility] [address] [id number] [address] [place] [address], [place] [address] Sep, [facility] [address] [id number] [address] [place] [address], [place] [address] Sep, [facility] [address] [id number] [address] [place] [address], [place] [address] Sep, [facility] [address] [id number] [address] [place] [address] Sep, [facility] [address] [id number] [address] [place] [address], [place] [address] Sep, [facility] [address] [id number] [address] [place] [address], [place] [address] Aug, [facility] [address] [id number] [address] [place] [address], [place] [address] Aug, [facility] [address] [id number] [address] [place] [address], [place] [address] Aug, 2013 [facility] [address] [id number] [address] [place] [address], [place] [address] Aug, [facility] [address] [id number] [address] [place] [address], [place] [address] Aug, [facility] [address] [id number] [address] [place] [address], [place] [address] Aug, [facility] [address] [id number] [address] [place] [address], [place] [address] Aug, [facility] [address] [id number] [address] [place] [address], [place] [address] Aug, [facility] [address] [id number] [address] [place] [address], [place] [address] Aug, [facility] [address] [id number] [address] [place] [address], [place] [address] Aug, [facility] [address] [id number] [address] [place] [address], [place] [address] Aug, [facility] [address] [id number] [address] [place] [address], [place] [address] Aug, [facility] [address] [id number] [address] [place] [address], [place] [address] Aug, [facility] [address] [id number] [address] [place] [address], [place] [address] Aug, 2013 [facility] [address] [id number] [address] [place] [address], [place] [address] Aug, [facility] [address] [id number] [address] [place] [address], [place] [address] Aug, 2013 [facility] [address] [id number] [address] [place] [address], [place] [address] Aug, 2013 [facility] [address] [id number] [address] [place] [address], [place] [address] Aug, 2013 [facility] [address] [id number] [address] [place] [address], [place] [address] 14 Aug, 2013 [facility] [address] [id number] [address] [place] [address], [place] [address] 14 Aug, 2013 [facility] [address] [id number] [address] [place] [address], [place] [address] Aug, 2013 [facility] [address] [id number] [address] [place] [address], [place] [address] Aug, 2013 [facility] [address] [id number] [address] [place] [address], [place] [address] Aug, 2013 [facility] [address] [id number] [address] [place] [address], [place] [address] Aug, 2013 [facility] [address] [id number] [address] [place] [address], [place] [address] 08 Aug, 2013 [facility] [address] [id number] [address] [place] [address], [place] [address] Aug, 2013 [facility] [address] [id number] [address] [place] [address], [place] [address] Aug, 2013 [facility] [address] [id number] [address] [place] [address] Aug, 2013 [facility] [address] [id number] [address] [place] [address] Aug, 2013 [facility] [address] [id number] [address] [place] [address] 30 Jul, 2013 [facility] [address] [id number] [address] [place] [address] 30 Jul, 2013 [facility] [address] [id number] [address] [place] [address] 29 Jul, 2013 [facility] [address] [id number] [address] [place] [address] 29 Jul, 2013 [facility] [address] [id number] [address] [place] [address] 19 Jul, 2013 [facility] [address] [id number] [address] [place] [address], [place] [address] 19 Jul, 2013 [facility] [address] [id number] [address] [place] [address], [place] [address] 18 Jul, 2013 [facility] [address] [id number] [address] [place] [address], [place] [address] 18 Jul, 2013 [facility] [address] [id number] [address] [place] [address], [place] [address] 17 Jul, 2013 [facility] [address] [id number] [address] [place] [address], [place] [address] 17 Jul, 2013 [facility] [address] [id number] [address] [place] [address], [place] [address] 10 Jul, 2014 [facility] [address] [id number] [address] [place] [address], [place] [address] 10 Jul, 2014 [facility] [address] [id number] [address] [place] [address], [place] [address] Jun, [facility] [address] [id number] [address] [place] [address], [place] [address] Jun, [facility] [address] [id number] [address] [place] [address], [place] [address] Jun, [facility] [address] [id number] [address] [place] [address], [place] [address] Jun, [facility] [address] [id number] [address] [place] [address], [place] [address] Jun, [facility] [address] [id number] [address] [place] [address], [place] [address] Jun, [facility] [address] [id number] [address] [place] [address], [place] [address] Jun, [facility] [address] [id number] [address] [place] [address], [place] [address] Jun, [facility] [address] [id number] [address] [place] [address] Jun, [facility] [address] [id number] [address] [place] [address] Jun, [facility] [address] [id number] [address] [place] [address] Jun, [facility] [address] [facility]NOTE 3] [id number] [address] [place] [address] Jun, [facility] [address] [id number] [address] [place] [address] May, [facility] [address] [facility] [place][NOTE 3] [id number] [address] [place] [id number] May, [facility] [address] [facility] [place]NOTE 3] [id number] [address] [place] [id number] May, IMMUNIZATIONS No Known Immunizations SOCIAL HISTORY [...]
--- OUTSIDE RECORDS SUMMARY | 2020-05-03 14:37 | XMS REPORT ---
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 20 Active 372501669 Problem Screening breast examination Z12.39 A ctive 210933393 Problem Irritable bowel syndrome without diarrhea K58.9 Active 92898053 Problem Irritable bowel syndrome with diarrhea K58.0 Active 539212963 ALLERGIES No Information ENCOUNTERS Encounter Location Date Diagnosis [facility] [address] [id number] [place] [address] [id number] March, Dental examination Z01.20 [facility] [address] [id number] [address] [place] [address] [id number] Feb, Caries K02.9 [facility] [address] [id number] [address] [place] [address] [id number] Feb, Caries K02.9 [facility] [address] [id number] [address] [place] [address] [id number] Jan, [facility] [address] [id number] [address] [place] [address] [id number] Jan, Caries K02.9 [facility] [address] [id number] [address] [place] [address] [id number] Dec, [facility] [address] [id number] [address] [place] [address] [id number] Dec, Dental examination Z01.20 an d Caries K02.9 [id number] [facility] [place] [facility] [id number] [address] [place] [id number] 14 Sep, 2016 Dental examination Z01.20 [place] [address] [address] [facility] [place] [id number] [address] [place] [id number] 08 Jan, 2016 Nausea R11.0 ; Irritable bow el syndrome without diarrhea K58.9 and History of renal transplant Z94.0 [place] [address] [address] [place] [id number] [address] [place] [phone] 2015 [place] [address] [id number] 11 Dec, 2015 Breast pain N64.4 ; Screenin g breast examination Z12.39 and Mild intermittent asthma without complication J45.20 [place] [address] [address] 10 Dec, 2015 [place] [address] [address] 09 Dec, 2015 Kidney transplant status Z94 .0 ; Personal history of immunosupression therapy Z92.25 ; Recurrent UTI N39.0 and Encounter for screening, unspecified Z13.9 [place] [address] [address] [place] [id number] [address] [place] [id number] Oct, [place] [id number] [place] [phone] Oct, [place] [address] [address] [place] [id number] [address] [place] [phone] Oct, [place] [address] [address] Oct, Hiatal hernia K44.9 and Atyp ical chest pain R07.89 [place] [address] [address] [place] [id number] [address] [place] [phone] Oct, [place] [address] [address] [place] [id number] [place] [address], [place] [address] Sep, Kidney replaced by transplan t V42.0 and Bilateral low back pain with sciatica, sciatica laterality unspecified M54.40 [facility] [address] [id number] [address] [place] [phone] Sep, [facility] [address] [id number] [address] [place] [address] Sep, Kidney replaced by transplan t V42.0 ; Bilateral low back pain with sciatica, sciatica laterality unspecified M54.40 ; Anxiety F41.9 and Primary insomnia F51.01 [facility] [address] [id number] [address] [place] [phone] Aug, [facility] [address] [facility] [place] [id number] [address] [place] [phone] Aug, [facility] [address] [facility] [place] [id number] [address] [place] [address] Aug, Kidney transplant status Z94 .0 ; Personal history of immunosupression therapy Z92.25 ; Recurrent urinary tract infection N39.0 and Screening Z13.9 [facility] [address] [facility] [place] [id number] [address] [place] [phone] Aug, [facility] [address] [facility] [place] [id number] [address] [place] [address] Aug, Encounter for aftercare foll owing kidney transplant Z48.22 ; Chronic radicular pain of lower back M54.16 and PND (post-nasal drip) R09.82 [facility] [address] [id number] [address] [place] [phone] Jul, [facility] [address] [facility] [place] [id number] [address] [place] [address] Jul, [facility] [address] [facility] [place] [id number] [address] [place] [phone] Jul, [facility] [address] [facility] [place] [id number] [address] [place] [id number] Jul, Kidney replaced by transplan t V42.0 ; Depressive disorder, not elsewhere classified 311 ; Anxiety state, unspecified 300.00 ; Insomnia, unspecified 780.52 ; Irritable bowel syndrome 564.1 ; Chronic lumbar pain 724.2 and GERD (gastroesophageal reflux disease) 530.81 [facility] [address] [id number] [address] [place] [id number] Jul, [facility] [address] [id number] [address] [place] [address] Jun, [facility] [address] [id number] [address] [place] [address] Jun, [facility] [address] [id number] [address] [place] [phone] Jun, [facility] [address] [id number] [address] [place] [phone] Jun, Kidney replaced by transplan t V42.0 [facility] [address] [id number] [address] [place] [address] May, [facility] [address] [id number] [address] [place] [address] May, Depression with anxiety 300. 4 and Skin infection 686.9 [facility] [address] [id number] [address] [place] [phone] May, [facility] [address] [id number] [address] [place] [phone] May, Kidney replaced by transplan t V42.0 ; Recurrent UTI (urinary tract infection) 599.0 and Absence of menstruation 626.0 [facility] [address] [id number] [address] [place] [address] May, [facility] [address] [id number] [address] [place] [address] May, Depression with anxiety 300. 4 [place] [address] [address] [place] [id number] [address] [place] [phone] May, [facility] [address] [address] Apr, [facility] [address] [address] Apr, [facility] [address] [address] Apr, Depression, major, recurrent , mild 296.31 [place] [address] [address] Apr, Depression, major, recurrent , mild 296.31 [place] [address] [address] Apr, Cervicalgia 723.1 ; Lumbago 724.2 ; Anxiety state, unspecified 300.00 ; Nausea 787.02 ; 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 ; Recurrent UTI (urinary tract infection) 599.0 and Knee pain, bilateral 719.46 [place] [address] [address] March, Depression, major, recurrent , mild 296.31 [place] [address] [address] March, [place] [address] [address] March, [place] [address] [address] March, Lumbago 724.2 ; Insomnia, un specified 780.52 ; Depressive disorder, not elsewhere classified 311 ; 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 ; Anxiety 300.00 ; Allergic rhinitis 477.9 and GERD (gastroesophageal reflux disease) 530.81 [place] [address] [address] Feb, [facility] [address] [address] Feb, [facility] [address] [id number] [address] [place] [address], [place] [address] Jan, [facility] [address] [id number] [address] [place] [address], [place] [address] Jan, [facility] [address] [id number] [address] [place] [address], [place] [address] Jan, [facility] [address] [id number] [address] [place] [address], [place] [address] Jan, [facility] [address] [id number] [address] [place] [address], [place] [address] Dec, [facility] [address] [id number] [address] [place] [address], [place] [address] Dec, [facility] [address] [id number] [address] [place] [address], [place] [address] Dec, [facility] [address] [id number] [address] [place] [address], [place] [address] Dec, [facility] [address] [id number] [address] [place] [address], [place] [address] Dec, [facility] [address] [id number] [address] [place] [address], [place] [address] Dec, [facility] [address] [id number] [address] [place] [address], [place] [address] Dec, [facility] [address] [id number] [address] [place] [phone] Nov, [facility] [address] [id number] [address] [place] [address] Nov, [facility] [address] [id number] [address] [place] [phone] Nov, [facility] [address] [id number] [address] [place] [address] Nov, [facility] [address] [id number] [address] [place] [address], [place] [address] Nov, [facility] [address] [id number] [address] [place] [address], [place] [address] Nov, [facility] [address] [id number] [address] [place] [address], [place] [address] Nov, [facility] [address] [id number] [address] [place] [address], [place] [address] Nov, [facility] [address] [id number] [address] [place] [address], [place] [address] Nov, [facility] [address] [id number] [address] [place] [address], [place] [address] Nov, [facility] [address] [id number] [address] [place] [address], [place] [address] Nov, [facility] [address] [id number] [address] [place] [address], [place] [address] Nov, [facility] [address] [id number] [address] [place] [address], [place] [address] Nov, [facility] [address] [id number] [address] [place] [address], [place] [address] Nov, [facility] [address] [id number] [address] [place] [address], [place] [address] Nov, [facility] [address] [id number] [address] [place] [address], [place] [address] Nov, [facility] [address] [id number] [address] [place] [address], [place] [address] Nov, [facility] [address] [id number] [address] [place] [address], [place] [address] Nov, [facility] [address] [id number] [address] [place] [address], [place] [address] Nov, [facility] [address] [id number] [address] [place] [address], [place] [address] Nov, [facility] [address] [id number] [address] [place] [address], [place] [address] Nov, [facility] [address] [id number] [address] [place] [address], [place] [address] Nov, [facility] [address] [id number] [address] [place] [address], [place] [address] Nov, [facility] [address] [id number] [address] [place] [address], [place] [address] Nov, [facility] [address] [id number] [address] [place] [address], [place] [address] Nov, [facility] [address] [id number] [address] [place] [address], [place] [address] Nov, [facility] [address] [id number] [address] [place] [address], [place] [address] Nov, [facility] [address] [id number] [address] [place] [address], [place] [address] Nov, [facility] [address] [id number] [address] [place] [address], [place] [address] Nov, [facility] [address] [id number] [address] [place] [address], [place] [address] Oct, [facility] [address] [id number] [address] [place] [address], [place] [address] Oct, [facility] [address] [id number] [address] [place] [address], [place] [address] Oct, [facility] [address] [id number] [address] [place] [address], [place] [address] Oct, [facility] [address] [id number] [address] [place] [address], [place] [address] Oct, [facility] [address] [id number] [address] [place] [address], [place] [address] Oct, [facility] [address] [id number] [facility] [place] [address] Oct, [facility] [address] [id number] [address] [place] [address], [place] [address] Oct, [facility] [address] [id number] [address] [place] [address], [place] [address] Oct, [facility] [address] [id number] [address] [place] [address], [place] [address] Oct, [facility] [address] [id number] [address] [place] [address], [place] [address] Oct, [facility] [address] [id number] [address] [place] [address], [place] [address] Oct, [facility] [address] [id number] [address] [place] [address], [place] [address] 17 Oct, 2014 [facility] [address] [id number] [address] [place] [address], [place] [address] 17 Oct, 2014 [facility] [address] [id number] [address] [place] [address], [place] [address] 16 Oct, 2014 [facility] [address] [id number] [address] [place] [address], [place] [address] 16 Oct, 2014 [facility] [address] [id number] [address] [place] [address], [place] [address] 13 Oct, 2014 [facility] [address] [id number] [address] [place] [address], [place] [address] 12 Oct, 2014 [facility] [address] [id number] [address] [place] [address], [place] [address] 12 Oct, 2014 [facility] [address] [id number] [address] [place] [address], [place] [address] 05 Oct, 2014 [facility] [address] [id number] [address] [place] [address], [place] [address] 05 Oct, 2014 [facility] [address] [id number] [address] [place] [address], [place] [address] Oct, [facility] [address] [id number] [address] [place] [address], [place] [address] Oct, [facility] [address] [id number] [address] [place] [address], [place] [address] Sep, [facility] [address] [id number] [address] [place] [address], [place] [address] Sep, [facility] [address] [id number] [address] [place] [address], [place] [address] Sep, [facility] [address] [id number] [address] [place] [address], [place] [address] Sep, [facility] [address] [id number] [address] [place] [address], [place] [address] Sep, [facility] [address] [id number] [address] [place] [address], [place] [address] Sep, [facility] [address] [id number] [address] [place] [address], [place] [address] Sep, [facility] [address] [id number] [address] [place] [address], [place] [address] Sep, [facility] [address] [id number] [address] [place] [address] Sep, [facility] [address] [id number] [address] [place] [address] Sep, [facility] [address] [id number] [address] [place] [address] Sep, [facility] [address] [id number] [address] [place] [address], [place] [address] Sep, [facility] [address] [id number] [address] [place] [address], [place] [address] Sep, [facility] [address] [id number] [address] [place] [address] Sep, [facility] [address] [id number] [address] [place] [address] Sep, [facility] [address] [id number] [address] [place] [address], [place] [address] Sep, [facility] [address] [id number] [address] [place] [address], [place] [address] Sep, [facility] [address] [id number] [address] [place] [address], [place] [address] Sep, [facility] [address] [id number] [address] [place] [address], [place] [address] Sep, [facility] [address] [id number] [address] [place] [address], [place] [address] Sep, [facility] [address] [id number] [address] [place] [address], [place] [address] Sep, [facility] [address] [id number] [address] [place] [address], [place] [address] Sep, [facility] [address] [id number] [address] [place] [address], [place] [address] Sep, [facility] [address] [id number] [address] [place] [address], [place] [address] Sep, [facility] [address] [id number] [address] [place] [address], [place] [address] Sep, [facility] [address] [id number] [address] [place] [address], [place] [address] Sep, [facility] [address] [id number] [address] [place] [address] Sep, [facility] [address] [id number] [address] [place] [address], [place] [address] Sep, [facility] [address] [id number] [address] [place] [address], [place] [address] Aug, [facility] [address] [id number] [address] [place] [address], [place] [address] Aug, [facility] [address] [id number] [address] [place] [address], [place] [address] Aug, [facility] [address] [id number] [address] [place] [address], [place] [address] Aug, [facility] [address] [id number] [address] [place] [address], [place] [address] Aug, [facility] [address] [id number] [address] [place] [address], [place] [address] Aug, [facility] [address] [id number] [address] [place] [address], [place] [address] Aug, [facility] [address] [id number] [address] [place] [address], [place] [address] Aug, [facility] [address] [id number] [address] [place] [address], [place] [address] Aug, [facility] [address] [id number] [address] [place] [address], [place] [address] Aug, [facility] [address] [id number] [address] [place] [address], [place] [address] Aug, [facility] [address] [id number] [address] [place] [address], [place] [address] Aug, [facility] [address] [id number] [address] [place] [address], [place] [address] Aug, [facility] [address] [id number] [address] [place] [address], [place] [address] Aug, [facility] [address] [id number] [address] [place] [address], [place] [address] Aug, [facility] [address] [id number] [address] [place] [address], [place] [address] Aug, [facility] [address] [id number] [address] [place] [address], [place] [address] Aug, [facility] [address] [id number] [address] [place] [address] [address] 17 Aug, 2013 [facility] [address] [id number] [address] [place] [address], [place] [address] 14 Aug, 2013 [facility] [address] [id number] [address] [place] [address], [place] [address] 14 Aug, 2013 [facility] [address] [id number] [address] [place] [address], [place] [address] Aug, 2013 [facility] [address] [id number] [address] [place] [address], [place] [address] Aug, 2013 [facility] [address] [id number] [address] [place] [address], [place] [address] Aug, 2013 [facility] [address] [id number] [address] [place] [address], [place] [address] Aug, 2013 [facility] [address] [id number] [address] [place] [address], [place] [address] 08 Aug, 2013 [facility] [address] [id number] [address] [place] [address], [place] [address] Aug, 2013 [facility] [address] [id number] [address] [place] [address], [place] [address] Aug, 2013 [facility] [address] [id number] [address] [place] [id number] Aug, 2013 [facility] [address] [id number] [address] [place] [id number] Aug, 2013 [facility] [address] [id number] [address] [place] [id number] 30 Jul, 2013 [facility] [address] [id number] [address] [place] [address], [place] [address] 30 Jul, 2013 [facility] [address] [id number] [address] [place] [id number] 29 Jul, 2013 [facility] [address] [id number] [address] [place] [id number] 29 Jul, 2013 [facility] [address] [id number] [facility] [place] [address] 19 Jul, 2013 [facility] [address] [id number] [address] [place] [address], [place] [address] 19 Jul, 2013 [facility] [address] [id number] [facility] [place] [address] 18 Jul, 2013 [facility] [address] [id number] [address] [place] [address], [place] [address] 18 Jul, 2013 [facility] [address] [id number] [address] [place] [address], [place] [address] 17 Jul, 2013 [facility] [address] [id number] [address] [place] [address], [place] [address] 17 Jul, 2013 [facility] [address] [id number] [address] [place] [address], [place] [address] 10 Jul, 2013 [facility] [address] [id number] [address] [place] [address], [place] [address] 10 Jul, 2013 [facility] [address] [id number] [address] [place] [address], [place] [address] Jun, [facility] [address] [id number] [address] [place] [address], [place] [phone] Jun, [facility] [address] [id number] [address] [place] [address], [place] [phone] Jun, [facility] [address] [id number] [address] [place] [address], [place] [phone] Jun, [facility] [address] [id number] [address] [place] [address], [place] [phone] Jun, [facility] [address] [id number] [address] [place] [address], [place] [phone] Jun, [facility] [address] [id number] [address] [place] [address], [place] [phone] Jun, [facility] [address] [id number] [address] [place] [address], [place] [phone] Jun, [facility] [address] [id number] [address] [place] [phone] Jun, [facility] [address] [id number] [address] [place] [phone] Jun, [facility] [address] [id number] [address] [place] [phone] Jun, [facility] [address] [id number] [address] [place] [phone] Jun, [facility] [address] [id number] [address] [place] [phone] May, [facility] [address] [id number] [address] [place] [phone] May, [facility] [address] [id number] [address] [place] [phone] May, IMMUNIZATIONS No Known Immunizations SOCIAL HISTORY Never Assessed REASON FOR VISIT PLAN OF CARE VITAL SIGNS Height 67 in 2014-08-13 Weight 238.5 lbs 2014-08-13 Temperature 98.3 degrees Fahrenheit 2014-08-13 Heart Rate 74 bpm 2014-08-13 Respiratory Rate 16 2014-08-13 Blood pressure systolic 104 mmHg 2014-08-13 Blood pressure diastolic 70 mmHg 2014-08-13 MEDICATIONS Unknown Medications RESULTS No Results PROCEDURES Procedure Date Ordered Result Body Site DESTRUCT LESION, -Aug 13, 2014 INSTRUCTIONS MEDICATIONS ADMINISTERED No Known [...]
--- OUTSIDE RECORDS SUMMARY | 2020-05-03 14:38 | XMS REPORT ---
Author Author Tracee AVILA Organization [facility] Address [address] [place] [address] Care Team Providers Care Retail Associate Name Role Phone SARAI AVILA Unavailable PROBLEMS Type Condition ICD9-CM Code [id number] Code Onset Dates Condition S tatus SNOMED Code Problem Primary insomnia F51.01 Active 397 2004 Problem Breast pain N64.4 Active 10541712 Problem History of renal transplant Z94.0 Ac tive 695947142 Problem Violation of controlled substance agreement Z91.14 Active 937768921 Problem Mild intermittent asthma without complication J45. 20 Active 326227512 Problem Screening breast examination Z12.39 A ctive 850919845 Problem Irritable bowel syndrome without diarrhea K58.9 Active 87606495 Problem Irritable bowel syndrome with diarrhea K58.0 Active [id number] ALLERGIES No Information ENCOUNTERS Encounter Location Date Diagnosis [facility] [id number] [place] [address] [id number] March, Dental examination Z01.20 [facility] [address] [id number] [address] [place] [address] [id number] Feb, Caries K02.9 [facility] [address] [id number] [address] [place] [address] [id number] Feb, Caries K02.9 [facility] [address] [id number] [address] [place] [address] [id number] Jan, [facility] [address] [id number] [address] [place] [address] [id number] Jan, Caries K02.9 [facility] [address] [id number] [address] [place] [address] [id number] Dec, [facility] [address] [id number] [address] [place] [address] [id number] 18 Dec, 2018 Dental examination Z01.20 an d Caries K02.9 [place] [address] [id number] 14 Sep, 2016 Dental examination Z01.20 [place] [address] [place] [id number] [address] [place] [id number] 08 Jan, 2016 Nausea R11.0 ; Irritable bow el syndrome without diarrhea K58.9 and History of renal transplant Z94.0 [place] [address] [id number] 2015 [place] [address] [id number] 11 Dec, 2015 Breast pain N64.4 ; Screenin g breast examination Z12.39 and Mild intermittent asthma without complication J45.20 [place] [address] [id number] 10 Dec, 2015 [place] [address] [id number] 09 Dec, 2015 Kidney transplant status Z94 .0 ; Personal history of immunosupression therapy Z92.25 ; Recurrent UTI N39.0 and Encounter for screening, unspecified Z13.9 [place] [address] [place] [id number] [address] [place] [phone] Oct, [place] [address] [place] [id number] [address] [place] [phone] Oct, [place] [address] [place] [id number] [address] [place] [phone] Oct, [place] [address] [address] Oct, Hiatal hernia K44.9 and Atyp ical chest pain R07.89 [place] [address] [place] [id number] [address] [place] [phone] Oct, [place] [address] [id number] [address] [place] [phone] Sep, Kidney replaced by transplan t V42.0 and Bilateral low back pain with sciatica, sciatica laterality unspecified M54.40 [facility] [address] [id number] [address] [place] [id number] Sep, [facility] [address] [id number] [address] [place] [phone] Sep, Kidney replaced by transplan t V42.0 ; Bilateral low back pain with sciatica, sciatica laterality unspecified M54.40 ; Anxiety F41.9 and Primary insomnia F51.01 [facility] [address] [id number] [address] [place] [id number] Aug, [facility] [address] [id number] [address] [place] [id number] Aug, [facility] [address] [id number] [address] [place] [id number] Aug, Kidney transplant status Z94 .0 ; Personal history of immunosupression therapy Z92.25 ; Recurrent urinary tract infection N39.0 and Screening Z13.9 [facility] [address] [id number] [address] [place] [phone] Aug, [facility] [address] [id number] [address] [place] [phone] Aug, Encounter for aftercare foll owing kidney transplant Z48.22 ; Chronic radicular pain of lower back M54.16 and PND (post-nasal drip) R09.82 [facility] [address] [id number] [address] [place] [phone] Jul, [facility] [address] [id number] [address] [place] [id number] Jul, [facility] [address] [id number] [address] [place] [phone] Jul, [facility] [address] [id number] [address] [place] [phone] Jul, Kidney replaced by transplan t V42.0 ; Depressive disorder, not elsewhere classified 311 ; Anxiety state, unspecified 300.00 ; Insomnia, unspecified 780.52 ; Irritable bowel syndrome 564.1 ; Chronic lumbar pain 724.2 and GERD (gastroesophageal reflux disease) 530.81 [facility] [address] [id number] [address] [place] [id number] Jul, [facility] [address] [id number] [address] [place] [phone] Jun, [facility] [address] [id number] [address] [place] [phone] Jun, [facility] [address] [facility] [id number] [address] [place] [id number] Jun, [facility] [address] [facility] [id number] [address] [place] [phone] Jun, Kidney replaced by transplan t V42.0 [facility] [address] [facility] [id number] [address] [place] [phone] May, [facility] [address] [facility] [id number] [address] [place] [phone] May, Depression with anxiety 300. 4 and Skin infection 686.9 [facility] [address] [facility] [id number] [address] [place] [phone] May, [facility] [address] [id number] [address] [place] [phone] May, Kidney replaced by transplan t V42.0 ; Recurrent UTI (urinary tract infection) 599.0 and Absence of menstruation 626.0 [facility] [address] [facility] [id number] [address] [place] [phone] May, [facility] [address] [facility] [id number] [address] [place] [phone] May, Depression with anxiety 300. 4 [place] [address] [place] [id number] [address] [place] [phone] May, [facility] [address] [place] [id number] [address] [place] [phone] Apr, [facility] [address] [place] [id number] [address] [place] [phone] Apr, [facility] [address] [place] [id number] [address] [place] [address] Apr, Depression, major, recurrent , mild 296.31 [facility] [address] [place] [id number] [address] [place] [address] Apr, Depression, major, recurrent , mild 296.31 [place] [address] [place] [id number] [address] [place] [address] Apr, Cervicalgia 723.1 ; Lumbago 724.2 ; Anxiety state, unspecified 300.00 ; Nausea 787.02 ; 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 ; Recurrent UTI (urinary tract infection) 599.0 and Knee pain, bilateral 719.46 [place] [address] [place] [id number] [address] [place] [phone] March, Depression, major, recurrent , mild 296.31 [facility] [address] [place] [id number] [address] [place] [phone] March, [facility] [address] [place] [id number] [address] [place] [phone] March, [facility] [address] [place] [id number] [address] [place] [phone] March, Lumbago 724.2 ; Insomnia, un specified 780.52 ; Depressive disorder, not elsewhere classified 311 ; 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 ; Anxiety 300.00 ; Allergic rhinitis 477.9 and GERD (gastroesophageal reflux disease) 530.81 [facility] [address] [place] [id number] [address] [place] [phone] Feb, [facility] [address] [id number] [address] [place] [address], [place] [address] Feb, [facility] [address] [id number] [address] [place] [address], [place] [address] Jan, [facility] [address] [id number] [address] [place] [address], [place] [address] Jan, [facility] [address] [id number] [address] [place] [address], [place] [address] Jan, [facility] [address] [id number] [address] [place] [address], [place] [address] Jan, [facility] [address] [id number] [address] [place] [address], [place] [address] Dec, [facility] [address] [id number] [address] [place] [address], [place] [address] Dec, [facility] [address] [id number] [address] [place] [address], [place] [address] Dec, [facility] [address] [id number] [address] [place] [address], [place] [address] Dec, [facility] [address] [id number] [address] [place] [address], [place] [address] Dec, [facility] [address] [id number] [address] [place] [address], [place] [address] Dec, [facility] [address] [id number] [address] [place] [address], [place] [address] Dec, [facility] [address] [id number] [address] [place] [address], [place] [address] Nov, [facility] [address] [id number] [address] [place] [address], [place] [address] Nov, [facility] [address] [id number] [address] [place] [address], [place] [address] Nov, [facility] [address] [id number] [address] [place] [address] [address] Nov, [facility] [address] [id number] [address] [place] [address], [place] [address] Nov, [facility] [address] [id number] [address] [place] [address], [place] [address] Nov, [facility] [address] [id number] [address] [place] [address], [place] [address] Nov, [facility] [address] [id number] [address] [place] [address], [place] [address] Nov, [facility] [address] [id number] [address] [place] [address], [place] [address] Nov, [facility] [address] [id number] [address] [place] [address], [place] [address] Nov, [facility] [address] [id number] [address] [place] [address], [place] [address] Nov, [facility] [address] [id number] [address] [place] [address], [place] [address] Nov, [facility] [address] [id number] [address] [place] [address], [place] [address] Nov, [facility] [address] [id number] [address] [place] [address], [place] [address] Nov, [facility] [address] [id number] [address] [place] [address], [place] [address] Nov, [facility] [address] [id number] [address] [place] [address], [place] [address] Nov, [facility] [address] [id number] [address] [place] [address], [place] [address] Nov, [facility] [address] [id number] [address] [place] [address], [place] [address] Nov, [facility] [address] [id number] [address] [place] [address], [place] [address] Nov, [facility] [address] [id number] [address] [place] [address], [place] [address] Nov, [facility] [address] [id number] [address] [place] [address], [place] [address] Nov, [facility] [address] [id number] [address] [place] [address], [place] [address] Nov, [facility] [address] [id number] [address] [place] [address], [place] [address] Nov, [facility] [address] [id number] [address] [place] [address], [place] [address] Nov, [facility] [address] [id number] [address] [place] [address], [place] [address] Nov, [facility] [address] [id number] [address] [place] [address], [place] [address] Nov, [facility] [address] [id number] [address] [place] [address], [place] [address] Nov, [facility] [address] [id number] [address] [place] [address], [place] [address] Nov, [facility] [address] [id number] [address] [place] [address], [place] [address] Nov, [facility] [address] [id number] [address] [place] [address], [place] [address] Oct, [facility] [address] [id number] [address] [place] [address], [place] [address] Oct, [facility] [address] [id number] [address] [place] [address], [place] [address] Oct, [facility] [address] [id number] [address] [place] [address], [place] [address] Oct, [facility] [address] [id number] [address] [place] [address], [place] [address] Oct, [facility] [address] [id number] [address] [place] [address], [place] [address] Oct, [facility] [address] [id number] [address] [place] [address], [place] [address] Oct, [facility] [address] [id number] [address] [place] [address], [place] [address] Oct, [facility] [address] [id number] [address] [place] [address], [place] [address] Oct, [facility] [address] [id number] [address] [place] [address], [place] [address] Oct, [facility] [address] [id number] [address] [place] [address], [place] [address] Oct, [facility] [address] [id number] [address] [place] [address], [place] [address] Oct, [facility] [address] [id number] [address] [place] [address], [place] [address] Oct, [facility] [address] [id number] [address] [place] [address], [place] [address] Oct, [facility] [address] [id number] [address] [place] [address], [place] [address] Oct, [facility] [address] [id number] [address] [place] [address], [place] [address] Oct, [facility] [address] [id number] [address] [place] [address], [place] [address] Oct, [facility] [address] [id number] [address] [place] [address], [place] [address] Oct, [facility] [address] [id number] [address] [place] [address], [place] [address] Oct, [facility] [address] [id number] [address] [place] [address], [place] [address] 05 Oct, 2014 [facility] [address] [id number] [address] [place] [address], [place] [address] 05 Oct, 2014 [facility] [address] [id number] [address] [place] [address], [place] [address] Oct, [facility] [address] [id number] [address] [place] [address], [place] [address] Oct, [facility] [address] [id number] [address] [place] [address], [place] [address] Sep, [facility] [address] [id number] [address] [place] [address], [place] [address] Sep, [facility] [address] [id number] [address] [place] [address], [place] [address] Sep, [facility] [address] [id number] [address] [place] [address], [place] [address] Sep, [facility] [address] [id number] [address] [place] [address], [place] [address] Sep, [facility] [address] [id number] [address] [place] [address], [place] [address] Sep, [facility] [address] [id number] [address] [place] [address], [place] [address] Sep, [facility] [address] [id number] [address] [place] [address], [place] [address] Sep, [facility] [address] [id number] [address] [place] [address], [place] [address] Sep, [facility] [address] [id number] [address] [place] [address], [place] [address] Sep, [facility] [address] [id number] [address] [place] [address], [place] [address] Sep, [facility] [address] [id number] [address] [place] [address], [place] [address] Sep, [facility] [address] [id number] [address] [place] [address], [place] [address] Sep, [facility] [address] [id number] [address] [place] [address], [place] [address] Sep, [facility] [address] [id number] [address] [place] [address], [place] [address] Sep, [facility] [address] [id number] [address] [place] [address], [place] [address] Sep, [facility] [address] [id number] [address] [place] [address], [place] [address] Sep, [facility] [address] [id number] [address] [place] [address], [place] [address] Sep, [facility] [address] [id number] [address] [place] [address], [place] [address] Sep, [facility] [address] [id number] [address] [place] [address], [place] [address] Sep, [facility] [address] [id number] [address] [place] [address], [place] [address] Sep, [facility] [address] [id number] [address] [place] [address], [place] [address] Sep, [facility] [address] [id number] [address] [place] [address], [place] [address] Sep, [facility] [address] [id number] [address] [place] [address], [place] [address] Sep, [facility] [address] [id number] [address] [place] [address], [place] [address] Sep, [facility] [address] [id number] [address] [place] [address], [place] [address] Sep, [facility] [address] [id number] [address] [place] [address], [place] [address] Sep, [facility] [address] [id number] [address] [place] [address], [place] [id number] Sep, [facility] [address] [id number] [address] [place] [address], [place] [address] Aug, [facility] [address] [id number] [address] [place] [address], [place] [address] Aug, [facility] [address] [id number] [address] [place] [address], [place] [address] Aug, [facility] [address] [id number] [address] [place] [address], [place] [address] Aug, [facility] [address] [id number] [address] [place] [address], [place] [address] Aug, [facility] [address] [id number] [address] [place] [address], [place] [address] Aug, [facility] [address] [id number] [address] [place] [address], [place] [address] Aug, [facility] [address] [id number] [address] [place] [address], [place] [address] Aug, [facility] [address] [id number] [address] [place] [address], [place] [address] Aug, [facility] [address] [id number] [address] [place] [address], [place] [id number] Aug, [facility] [address] [id number] [address] [place] [address], [place] [address] Aug, [facility] [address] [id number] [address] [place] [id number] Aug, [facility] [address] [id number] [address] [place] [id number] Aug, [facility] [address] [id number] [address] [place] [id number] Aug, [facility] [address] [id number] [address] [place] [address], [place] [address] Aug, [facility] [address] [id number] [address] [place] [address], [place] [address] Aug, [facility] [address] [id number] [address] [place] [id number] Aug, [facility] [address] [id number] [address] [place] [id number] 17 Aug, 2013 [facility] [address] [id number] [address] [place] [address], [place] [address] 14 Aug, 2013 [facility] [address] [id number] [address] [place] [id number] 14 Aug, 2013 [facility] [address] [id number] [address] [place] [address], [place] [address] 09 Aug, 2013 [facility] [address] [id number] [address] [place] [id number] 09 Aug, 2013 [facility] [address] [id number] [address] [place] [address], [place] [address] Aug, 2013 [facility] [address] [id number] [address] [place] [address], [place] [address] Aug, 2013 [facility] [address] [id number] [address] [place] [id number] 08 Aug, 2013 [facility] [address] [id number] [address] [place] [id number] 07 Aug, 2013 [facility] [address] [id number] [address] [place] [id number] Aug, 2013 [facility] [address] [id number] [address] [place] [id number] Aug, 2013 [facility] [address] [id number] [address] [place] [id number] 07 Aug, 2013 [facility] [address] [id number] [address] [place] [id number] 30 Jul, 2013 [facility] [address] [id number] [address] [place] [id number] 30 Jul, 2013 [facility] [address] [id number] [address] [place] [id number] 29 Jul, 2013 [facility] [address] [id number] [address] [place] [id number] 29 Jul, 2013 [facility] [address] [id number] [facility] [place] [id number] 19 Jul, 2013 [facility] [address] [id number] [facility] [place] [address] 19 Jul, 2013 [facility] [address] [id number] [facility] [place] [id number] 18 Jul, 2013 [facility] [address] [id number] [address] [place] [address] 18 Jul, 2013 [facility] [address] [id number] [address] [place] [id number] 17 Jul, 2013 [facility] [address] [id number] [address] [place] [address], [place] [id number] 17 Jul, 2013 [facility] [address] [id number] [address] [place] [address], [place] [id number] 10 Jul, 2013 [facility] [address] [id number] [address] [place] [address], [place] [id number] 10 Jul, 2013 [facility] [address] [id number] [address] [place] [address], [place] [id number] Jun, [facility] [address] [id number] [address] [place] [address], [place] [id number] Jun, [facility] [address] [id number] [address] [place] [address], [place] [id number] Jun, [facility] [address] [id number] [address] [place] [address], [place] [id number] Jun, [facility] [address] [id number] [address] [place] [address], [place] [address] Jun, [facility] [address] [id number] [address] [place] [address], [place] [id number] Jun, [facility] [address] [id number] [address] [place] [address], [place] [id number] Jun, [facility] [address] [id number] [address] [place], [place] [id number] [address] Jun, [facility] [address] [id number] [address] [place] [id number] Jun, [facility] [address] [id number] [address] [place] [id number] Jun, [facility] [address] [id number] [address] [place] [id number] Jun, [facility] [address] [id number] [address] [place] [id number] Jun, [facility] [address] [id number] [address] [place] [id number] May, [facility] [address] [id number] [address] [place] [id number] May, [facility] [address] [facility] [id number] [address] [place] [id number] May, IMMUNIZATIONS No Known Immunizations SOCIAL HISTORY [...]
--- OUTSIDE RECORDS SUMMARY | 2020-05-03 14:38 | XMS REPORT ---
Author Author Tracee AVILA Organization [facility] Address [address] [place] [address] Care Team Providers Care China Decorator Name Role Phone SARAI AVILA Unavailable PROBLEMS Type Condition ICD9-CM Code CVI44-SH Code Onset Dates Condition S tatus SNOMED Code Problem Primary insomnia F51.01 Active 397 2004 Problem Breast pain N64.4 Active 30126883 Problem History of renal transplant Z94.0 Ac tive 320900993 Problem Violation of controlled substance agreement Z91.14 Active 968222054 Problem Mild intermittent asthma without complication J45. 20 Active 131229695 Problem Screening breast examination Z12.39 A ctive 789022701 Problem Irritable bowel syndrome without diarrhea K58.9 Active 92285721 Problem Irritable bowel syndrome with diarrhea K58.0 Active [id number] ALLERGIES No Information ENCOUNTERS Encounter Location Date Diagnosis [facility] [id number] [place] [address] [id number] March, Dental examination Z01.20 [facility] [address] [id number] [address] [place] [address] [id number] Feb, Caries K02.9 [facility] [address] [id number] [address] [place] [address] [id number] Feb, Caries K02.9 [facility] [address] [id number] [address] [place] [address] [id number] Jan, [facility] [address] [id number] [address] [place] [address] [id number] Jan, Caries K02.9 [facility] [address] [id number] [address] [place] [address] [id number] Dec, [facility] [address] [id number] [address] [place] [address] [id number] Dec, 2018 Dental examination Z01.20 an d Caries K02.9 [place] [address] [id number] 14 Sep, 2016 Dental examination Z01.20 [place] [address] [place] [id number] [address] [place] [id number] 08 Jan, 2016 Nausea R11.0 ; Irritable bow el syndrome without diarrhea K58.9 and History of renal transplant Z94.0 [place] [address] [id number] 2015 [place] [address] [id number] 11 Dec, 2015 Breast pain N64.4 ; Screenin g breast examination Z12.39 and Mild intermittent asthma without complication J45.20 [place] [address] [id number] 10 Dec, 2015 [place] [address] [id number] 09 Dec, 2015 Kidney transplant status Z94 .0 ; Personal history of immunosupression therapy Z92.25 ; Recurrent UTI N39.0 and Encounter for screening, unspecified Z13.9 [place] [address] [place] [id number] [address] [place] [phone] Oct, [place] [address] [place] [id number] [address] [place] [phone] Oct, [place] [address] [place] [id number] [address] [place] [phone] Oct, [place] [address] [id number] Oct, Hiatal hernia K44.9 and Atyp ical chest pain R07.89 [place] [address] [place] [id number] [address] [place] [phone] Oct, [place] [address] [id number] [address] [place] [phone] Sep, Kidney replaced by transplan t V42.0 and Bilateral low back pain with sciatica, sciatica laterality unspecified M54.40 [facility] [address] [id number] [address] [place] [phone] Sep, [facility] [address] [id number] [address] [place] [phone] Sep, Kidney replaced by transplan t V42.0 ; Bilateral low back pain with sciatica, sciatica laterality unspecified M54.40 ; Anxiety F41.9 and Primary insomnia F51.01 [facility] [address] [id number] [address] [place] [id number] Aug, [facility] [address] [id number] [address] [place] [phone] Aug, [facility] [address] [id number] [address] [place] [phone] Aug, Kidney transplant status Z94 .0 ; Personal history of immunosupression therapy Z92.25 ; Recurrent urinary tract infection N39.0 and Screening Z13.9 [facility] [address] [id number] [address] [place] [phone] Aug, [facility] [address] [id number] [address] [place] [phone] Aug, Encounter for aftercare foll owing kidney transplant Z48.22 ; Chronic radicular pain of lower back M54.16 and PND (post-nasal drip) R09.82 [facility] [address] [id number] [address] [place] [phone] Jul, [facility] [address] [id number] [address] [place] [id number] Jul, [facility] [address] [id number] [address] [place] [phone] Jul, [facility] [address] [id number] [address] [place] [id number] Jul, Kidney replaced by transplan t V42.0 ; Depressive disorder, not elsewhere classified 311 ; Anxiety state, unspecified 300.00 ; Insomnia, unspecified 780.52 ; Irritable bowel syndrome 564.1 ; Chronic lumbar pain 724.2 and GERD (gastroesophageal reflux disease) 530.81 [facility] [address] [id number] [address] [place] [phone] Jul, [facility] [address] [id number] [address] [place] [phone] Jun, [facility] [address] [id number] [address] [place] [phone] Jun, [facility] [address] [facility] [id number] [address] [place] [phone] Jun, [facility] [address] [facility] [id number] [address] [place] [phone] Jun, Kidney replaced by transplan t V42.0 [facility] [address] [facility] [id number] [address] [place] [phone] May, [facility] [address] [facility] [id number] [address] [place] [phone] May, Depression with anxiety 300. 4 and Skin infection 686.9 [facility] [address] [facility] [id number] [address] [place] [address] May, [facility] [address] [id number] [address] [place] [phone] May, Kidney replaced by transplan t V42.0 ; Recurrent UTI (urinary tract infection) 599.0 and Absence of menstruation 626.0 [facility] [address] [facility] [id number] [address] [place] [phone] May, [facility] [address] [facility] [id number] [address] [place] [phone] May, Depression with anxiety 300. 4 [place] [address] [place] [id number] [address] [place] [phone] May, [facility] [address] [place] [id number] [address] [place] [phone] Apr, [facility] [address] [place] [id number] [address] [place] [phone] Apr, [facility] [address] [place] [id number] [address] [place] [phone] Apr, Depression, major, recurrent , mild 296.31 [facility] [address] [place] [id number] [address] [place] [address] Apr, Depression, major, recurrent , mild 296.31 [place] [address] [place] [id number] [address] [place] [address] Apr, Cervicalgia 723.1 ; Lumbago 724.2 ; Anxiety state, unspecified 300.00 ; Nausea 787.02 ; 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 ; Recurrent UTI (urinary tract infection) 599.0 and Knee pain, bilateral 719.46 [place] [address] [place] [id number] [address] [place] [phone] March, Depression, major, recurrent , mild 296.31 [facility] [address] [place] [id number] [address] [place] [address] March, [facility] [address] [place] [id number] [address] [place] [phone] March, [facility] [address] [place] [id number] [address] [place] [phone] March, Lumbago 724.2 ; Insomnia, un specified 780.52 ; Depressive disorder, not elsewhere classified 311 ; 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 ; Anxiety 300.00 ; Allergic rhinitis 477.9 and GERD (gastroesophageal reflux disease) 530.81 [facility] [address] [place] [id number] [address] [place] [phone] Feb, [facility] [address] [id number] [address] [place] [address], [place] [address] Feb, [facility] [address] [id number] [address] [place] [address], [place] [address] Jan, [facility] [address] [id number] [address] [place] [address], [place] [address] Jan, [facility] [address] [id number] [address] [place] [address], [place] [address] Jan, [facility] [address] [id number] [address] [place] [address], [place] [address] Jan, [facility] [address] [id number] [address] [place] [address], [place] [address] Dec, [facility] [address] [id number] [address] [place] [address], [place] [address] Dec, [facility] [address] [id number] [address] [place] [address], [place] [address] Dec, [facility] [address] [id number] [address] [place] [address], [place] [address] Dec, [facility] [address] [id number] [address] [place] [address], [place] [address] Dec, [facility] [address] [id number] [address] [place] [address], [place] [address] Dec, [facility] [address] [id number] [address] [place] [address], [place] [address] Dec, [facility] [address] [id number] [address] [place] [address], [place] [address] Nov, [facility] [address] [id number] [address] [place] [address], [place] [address] Nov, [facility] [address] [id number] [address] [place] [address], [place] [address] Nov, [facility] [address] [id number] [address] [place] [address] [address] Nov, [facility] [address] [id number] [address] [place] [address], [place] [address] Nov, [facility] [address] [id number] [address] [place] [address], [place] [address] Nov, [facility] [address] [id number] [address] [place] [address], [place] [address] Nov, [facility] [address] [id number] [address] [place] [address], [place] [address] Nov, [facility] [address] [id number] [address] [place] [address], [place] [address] Nov, [facility] [address] [id number] [address] [place] [address], [place] [address] Nov, [facility] [address] [id number] [address] [place] [address], [place] [address] Nov, [facility] [address] [id number] [address] [place] [address], [place] [address] Nov, [facility] [address] [id number] [address] [place] [address], [place] [address] Nov, [facility] [address] [id number] [address] [place] [address], [place] [address] Nov, [facility] [address] [id number] [address] [place] [address], [place] [address] Nov, [facility] [address] [id number] [address] [place] [address], [place] [address] Nov, [facility] [address] [id number] [address] [place] [address], [place] [address] Nov, [facility] [address] [id number] [address] [place] [address], [place] [address] Nov, [facility] [address] [id number] [address] [place] [address], [place] [address] Nov, [facility] [address] [id number] [address] [place] [address], [place] [address] Nov, [facility] [address] [id number] [address] [place] [address], [place] [address] Nov, [facility] [address] [id number] [address] [place] [address], [place] [address] Nov, [facility] [address] [id number] [address] [place] [address], [place] [address] Nov, [facility] [address] [id number] [address] [place] [address], [place] [address] Nov, [facility] [address] [id number] [address] [place] [address], [place] [address] Nov, [facility] [address] [id number] [address] [place] [address], [place] [address] Nov, [facility] [address] [id number] [address] [place] [address], [place] [address] Nov, [facility] [address] [id number] [address] [place] [address], [place] [address] Nov, [facility] [address] [id number] [address] [place] [address], [place] [address] Nov, [facility] [address] [id number] [address] [place] [address], [place] [address] Oct, [facility] [address] [id number] [address] [place] [address], [place] [address] Oct, [facility] [address] [id number] [address] [place] [address], [place] [address] Oct, [facility] [address] [id number] [address] [place] [address], [place] [address] Oct, [facility] [address] [id number] [address] [place] [address], [place] [address] Oct, [facility] [address] [id number] [address] [place] [address], [place] [address] Oct, [facility] [address] [id number] [address] [place] [address], [place] [address] Oct, [facility] [address] [id number] [address] [place] [address], [place] [address] Oct, [facility] [address] [id number] [address] [place] [address], [place] [address] Oct, [facility] [address] [id number] [address] [place] [address], [place] [address] Oct, [facility] [address] [id number] [address] [place] [address], [place] [address] Oct, [facility] [address] [id number] [address] [place] [address], [place] [address] Oct, [facility] [address] [id number] [address] [place] [address], [place] [address] Oct, [facility] [address] [id number] [address] [place] [address], [place] [address] Oct, [facility] [address] [id number] [address] [place] [address], [place] [address] Oct, [facility] [address] [id number] [address] [place] [address], [place] [address] Oct, [facility] [address] [id number] [address] [place] [address], [place] [address] Oct, [facility] [address] [id number] [address] [place] [address], [place] [address] Oct, [facility] [address] [id number] [address] [place] [address], [place] [address] Oct, [facility] [address] [id number] [address] [place] [address], [place] [address] 05 Oct, 2014 [facility] [address] [id number] [address] [place] [address], [place] [address] 05 Oct, 2014 [facility] [address] [id number] [address] [place] [address], [place] [address] Oct, [facility] [address] [id number] [address] [place] [address], [place] [address] Oct, [facility] [address] [id number] [address] [place] [address], [place] [address] Sep, [facility] [address] [id number] [address] [place] [address], [place] [address] Sep, [facility] [address] [id number] [address] [place] [address], [place] [address] Sep, [facility] [address] [id number] [address] [place] [address], [place] [address] Sep, [facility] [address] [id number] [address] [place] [address], [place] [address] Sep, [facility] [address] [id number] [address] [place] [address], [place] [address] Sep, [facility] [address] [id number] [address] [place] [address], [place] [address] Sep, [facility] [address] [id number] [address] [place] [address], [place] [address] Sep, [facility] [address] [id number] [address] [place] [address], [place] [address] Sep, [facility] [address] [id number] [address] [place] [address], [place] [address] Sep, [facility] [address] [id number] [address] [place] [address], [place] [address] Sep, [facility] [address] [id number] [address] [place] [address], [place] [address] Sep, [facility] [address] [id number] [address] [place] [address], [place] [address] Sep, [facility] [address] [id number] [address] [place] [address], [place] [address] Sep, [facility] [address] [id number] [address] [place] [address], [place] [address] Sep, [facility] [address] [id number] [address] [place] [address], [place] [address] Sep, [facility] [address] [id number] [address] [place] [address], [place] [address] Sep, [facility] [address] [id number] [address] [place] [address], [place] [address] Sep, [facility] [address] [id number] [address] [place] [address], [place] [address] Sep, [facility] [address] [id number] [address] [place] [address], [place] [address] Sep, [facility] [address] [id number] [address] [place] [address], [place] [address] Sep, [facility] [address] [id number] [address] [place] [address], [place] [address] Sep, [facility] [address] [id number] [address] [place] [address], [place] [address] Sep, [facility] [address] [id number] [address] [place] [address], [place] [address] Sep, [facility] [address] [id number] [address] [place] [address], [place] [address] Sep, [facility] [address] [id number] [address] [place] [address], [place] [address] Sep, [facility] [address] [id number] [address] [place] [address], [place] [address] Sep, [facility] [address] [id number] [address] [place] [address], [place] [address] Sep, [facility] [address] [id number] [address] [place] [address], [place] [address] Aug, [facility] [address] [id number] [address] [place] [address], [place] [address] Aug, [facility] [address] [id number] [address] [place] [address], [place] [address] Aug, [facility] [address] [id number] [address] [place] [address], [place] [address] Aug, [facility] [address] [id number] [address] [place] [address], [place] [address] Aug, [facility] [address] [id number] [address] [place] [address], [place] [address] Aug, [facility] [address] [id number] [address] [place] [address], [place] [address] Aug, [facility] [address] [id number] [address] [place] [address], [place] [address] Aug, [facility] [address] [id number] [address] [place] [address], [place] [address] Aug, [facility] [address] [id number] [address] [place] [address], [place] [address] Aug, [facility] [address] [id number] [address] [place] [address], [place] [address] Aug, [facility] [address] [id number] [address] [place] [id number] Aug, [facility] [address] [id number] [address] [place] [id number] Aug, [facility] [address] [id number] [address] [place] [id number] Aug, [facility] [address] [id number] [address] [place] [address], [place] [address] Aug, [facility] [address] [id number] [address] [place] [address], [place] [address] Aug, [facility] [address] [id number] [address] [place] [id number] Aug, [facility] [address] [id number] [address] [place] [id number] 17 Aug, 2013 [facility] [address] [id number] [address] [place] [address], [place] [address] 14 Aug, 2013 [facility] [address] [id number] [address] [place] [id number] 14 Aug, 2013 [facility] [address] [id number] [address] [place] [address], [place] [id number] 09 Aug, 2013 [facility] [address] [id number] [address] [place] [id number] 09 Aug, 2013 [facility] [address] [id number] [address] [place] [address], [place] [address] Aug, 2013 [facility] [address] [id number] [address] [place] [address], [place] [address] Aug, 2013 [facility] [address] [id number] [address] [place] [id number] 08 Aug, 2013 [facility] [address] [id number] [address] [place] [id number] 07 Aug, 2013 [facility] [address] [id number] [address] [place] [id number] Aug, 2013 [facility] [address] [id number] [address] [place] [id number] Aug, 2013 [facility] [address] [id number] [address] [place] [id number] 07 Aug, 2013 [facility] [address] [id number] [address] [place] [id number] 30 Jul, 2013 [facility] [address] [id number] [address] [place] [id number] 30 Jul, 2013 [facility] [address] [id number] [address] [place] [id number] 29 Jul, 2013 [facility] [address] [id number] [address] [place] [id number] 29 Jul, 2013 [facility] [address] [id number] [address] [place] [address] 19 Jul, 2013 [facility] [address] [id number] [address] [place] [address] 19 Jul, 2013 [facility] [address] [id number] [address] [place] [address] 18 Jul, 2013 [facility] [address] [id number] [address] [place] [address] 18 Jul, 2013 [facility] [address] [id number] [address] [place] [address] 17 Jul, 2013 [facility] [address] [id number] [address] [place] [address], [place] [address] 17 Jul, 2013 [facility] [address] [id number] [address] [place] [address], [place] [id number] 10 Jul, 2013 [facility] [address] [id number] [address] [place] [address], [place] [id number] 10 Jul, 2013 [facility] [address] [id number] [address] [place] [address], [place] [id number] Jun, [facility] [address] [id number] [address] [place] [address], [place] [id number] Jun, [facility] [address] [id number] [address] [place] [address], [place] [id number] Jun, [facility] [address] [id number] [address] [place] [address], [place] [id number] Jun, [facility] [address] [id number] [address] [place] [address], [place] [id number] Jun, [facility] [address] [id number] [address] [place] [address], [place] [id number] Jun, [facility] [address] [id number] [address] [place] [address], [place] [id number] Jun, [facility] [address] [id number] [address] [place] [address] [address] Jun, [facility] [address] [id number] [address] [place] [id number] Jun, [facility] [address] [id number] [address] [place] [id number] Jun, [facility] [address] [id number] [address] [place] [id number] Jun, [facility] [address] [id number] [address] [place] [id number] Jun, [facility] [address] [id number] [address] [place] [id number] May, [facility] [address] [id number] [address] [place] [id number] May, [facility] [address] [facility] [id number] [address] [place] [id number] May, IMMUNIZATIONS No Known Immunizations SOCIAL HISTORY [...]
--- OUTSIDE RECORDS SUMMARY | 2020-05-03 14:38 | XMS REPORT ---
Author Author Tracee AVILA Organization [facility] [place] Address [address] [place] [address] Care Team Providers Care Biology Lecturer Name Role Phone SARAI AVILA Unavailable PROBLEMS Type Condition ICD9-CM Code LEW68-WN Code Onset Dates Condition S tatus SNOMED Code Problem Primary insomnia F51.01 Active 397 2004 Problem Breast pain N64.4 Active 38088254 Problem History of renal transplant Z94.0 Ac tive 074088304 Problem Violation of controlled substance agreement Z91.14 Active 499372869 Problem Mild intermittent asthma without complication J45. 20 Active 505747628 Problem Screening breast examination Z12.39 A ctive 669183246 Problem Irritable bowel syndrome without diarrhea K58.9 Active 77921108 Problem Irritable bowel syndrome with diarrhea K58.0 Active [id number] ALLERGIES No Information ENCOUNTERS Encounter Location Date Diagnosis [facility] [id number] [place] [address] [id number] March, Dental examination Z01.20 [facility] [address] [id number] [address] [place] [address] [id number] Feb, Caries K02.9 [facility] [address] [id number] [address] [place] [address] [id number] Feb, Caries K02.9 [facility] [address] [id number] [address] [place] [address] [id number] Jan, [facility] [address] [id number] [address] [place] [address] [id number] Jan, Caries K02.9 [facility] [address] [id number] [address] [place] [address] [id number] Dec, [facility] [address] [id number] [address] [place] [address] [id number] 18 Dec, 2018 Dental examination Z01.20 an d Caries K02.9 [place] [address] [id number] 14 Sep, 2016 Dental examination Z01.20 [place] [address] [place] [id number] [address] [place] [id number] 08 Jan, 2016 Nausea R11.0 ; Irritable bow el syndrome without diarrhea K58.9 and History of renal transplant Z94.0 [place] [address] [id number] 2015 [place] [address] [id number] 11 Dec, 2015 Breast pain N64.4 ; Screenin g breast examination Z12.39 and Mild intermittent asthma without complication J45.20 [place] [address] [id number] 10 Dec, 2015 [place] [address] [id number] 09 Dec, 2015 Kidney transplant status Z94 .0 ; Personal history of immunosupression therapy Z92.25 ; Recurrent UTI N39.0 and Encounter for screening, unspecified Z13.9 [place] [address] [place] [id number] [address] [place] [phone] Oct, [place] [address] [place] [id number] [address] [place] [phone] Oct, [place] [address] [place] [id number] [address] [place] [phone] Oct, [place] [address] [id number] Oct, Hiatal hernia K44.9 and Atyp ical chest pain R07.89 [place] [address] [place] [id number] [address] [place] [phone] Oct, [place] [address] [id number] [address] [place] [phone] Sep, Kidney replaced by transplan t V42.0 and Bilateral low back pain with sciatica, sciatica laterality unspecified M54.40 [facility] [place] [address] [id number] [address] [place] [phone] Sep, [facility] [place] [address] [id number] [address] [place] [phone] Sep, Kidney replaced by transplan t V42.0 ; Bilateral low back pain with sciatica, sciatica laterality unspecified M54.40 ; Anxiety F41.9 and Primary insomnia F51.01 [facility] [place] [address] [id number] [address] [place] [phone] Aug, [facility] [place] [address] [id number] [address] [place] [phone] Aug, [facility] [place] [address] [id number] [address] [place] [phone] Aug, Kidney transplant status Z94 .0 ; Personal history of immunosupression therapy Z92.25 ; Recurrent urinary tract infection N39.0 and Screening Z13.9 [facility] [place] [address] [id number] [address] [place] [phone] Aug, [facility] [place] [address] [id number] [address] [place] [id number] Aug, Encounter for aftercare foll owing kidney transplant Z48.22 ; Chronic radicular pain of lower back M54.16 and PND (post-nasal drip) R09.82 [facility] [place] [address] [id number] [address] [place] [phone] Jul, [facility] [place] [address] [id number] [address] [place] [id number] Jul, [facility] [place] [address] [id number] [address] [place] [phone] Jul, [facility] [place] [address] [id number] [address] [place] [phone] Jul, Kidney replaced by transplan t V42.0 ; Depressive disorder, not elsewhere classified 311 ; Anxiety state, unspecified 300.00 ; Insomnia, unspecified 780.52 ; Irritable bowel syndrome 564.1 ; Chronic lumbar pain 724.2 and GERD (gastroesophageal reflux disease) 530.81 [facility] [place] [address] [id number] [address] [place] [phone] Jul, [facility] [place] [address] [id number] [address] [place] [phone] Jun, [facility] [place] [address] [id number] [address] [place] [phone] Jun, [facility] [place] [address] [facility] [id number] [address] [place] [phone] Jun, [facility] [place] [address] [facility] [id number] [address] [place] [phone] Jun, Kidney replaced by transplan t V42.0 [facility] [place] [address] [facility] [id number] [address] [place] [phone] May, [facility] [place] [address] [facility] [id number] [address] [place] [phone] May, Depression with anxiety 300. 4 and Skin infection 686.9 [facility] [place] [address] [facility] [id number] [address] [place] [phone] May, [facility] [place] [address] [id number] [address] [place] [phone] May, Kidney replaced by transplan t V42.0 ; Recurrent UTI (urinary tract infection) 599.0 and Absence of menstruation 626.0 [facility] [place] [address] [facility] [id number] [address] [place] [phone] May, [facility] [place] [address] [facility] [id number] [address] [place] [phone] May, Depression with anxiety 300. 4 [place] [address] [place] [id number] [address] [place] [phone] May, [facility] [place] [address] [place] [id number] [address] [place] [phone] Apr, [facility] [place] [address] [place] [id number] [address] [place] [phone] Apr, [facility] [place] [address] [place] [id number] [address] [place] [phone] Apr, Depression, major, recurrent , mild 296.31 [facility] [place] [address] [place] [id number] [address] [place] [phone] Apr, Depression, major, recurrent , mild 296.31 [place] [address] [address] [place] [id number] [address] [place] [phone] Apr, Cervicalgia 723.1 ; Lumbago 724.2 ; Anxiety state, unspecified 300.00 ; Nausea 787.02 ; 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 ; Recurrent UTI (urinary tract infection) 599.0 and Knee pain, bilateral 719.46 [place] [address] [address] [place] [id number] [address] [place] [phone] March, Depression, major, recurrent , mild 296.31 [facility] [place] [address] [place] [id number] [address] [place] [phone] March, [facility] [place] [address] [place] [id number] [address] [place] [phone] March, [facility] [place] [address] [place] [id number] [address] [place] [phone] March, Lumbago 724.2 ; Insomnia, un specified 780.52 ; Depressive disorder, not elsewhere classified 311 ; 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 ; Anxiety 300.00 ; Allergic rhinitis 477.9 and GERD (gastroesophageal reflux disease) 530.81 [facility] [place] [address] [place] [id number] [address] [place] [phone] Feb, [facility] [place] [address] [id number] [address] [place] [address], [place] [address] Feb, [facility] [address] [id number] [address] [place] [address], [place] [address] Jan, [facility] [address] [id number] [address] [place] [address], [place] [address] Jan, [facility] [address] [id number] [address] [place] [address], [place] [address] Jan, [facility] [address] [id number] [address] [place] [address], [place] [address] Jan, [facility] [address] [id number] [address] [place] [address], [place] [address] Dec, [facility] [address] [id number] [address] [place] [address], [place] [address] Dec, [facility] [address] [id number] [address] [place] [address], [place] [address] Dec, [facility] [address] [id number] [address] [place] [address], [place] [address] Dec, [facility] [address] [id number] [address] [place] [address], [place] [address] Dec, [facility] [address] [id number] [address] [place] [address], [place] [address] Dec, [facility] [address] [id number] [address] [place] [address], [place] [address] Dec, [facility] [address] [id number] [address] [place] [address], [place] [address] Nov, [facility] [address] [id number] [address] [place] [address], [place] [address] Nov, [facility] [address] [id number] [address] [place] [address], [place] [address] Nov, [facility] [address] [id number] [address] [place] [address] [address] Nov, [facility] [address] [id number] [address] [place] [address], [place] [address] Nov, [facility] [address] [id number] [address] [place] [address], [place] [address] Nov, [facility] [address] [id number] [address] [place] [address], [place] [address] Nov, [facility] [address] [id number] [address] [place] [address], [place] [address] Nov, [facility] [address] [id number] [address] [place] [address], [place] [address] Nov, [facility] [address] [id number] [address] [place] [address], [place] [address] Nov, [facility] [address] [id number] [address] [place] [address], [place] [address] Nov, [facility] [address] [id number] [address] [place] [address], [place] [address] Nov, [facility] [address] [id number] [address] [place] [address], [place] [address] Nov, [facility] [address] [id number] [address] [place] [address], [place] [address] Nov, [facility] [address] [id number] [address] [place] [address], [place] [address] Nov, [facility] [address] [id number] [address] [place] [address], [place] [address] Nov, [facility] [address] [id number] [address] [place] [address], [place] [address] Nov, [facility] [address] [id number] [address] [place] [address], [place] [address] Nov, [facility] [address] [id number] [address] [place] [address], [place] [address] Nov, [facility] [address] [id number] [address] [place] [address], [place] [address] Nov, [facility] [address] [id number] [address] [place] [address], [place] [address] Nov, [facility] [address] [id number] [address] [place] [address], [place] [address] Nov, [facility] [address] [id number] [address] [place] [address], [place] [address] Nov, [facility] [address] [id number] [address] [place] [address], [place] [address] Nov, [facility] [address] [id number] [address] [place] [address], [place] [address] Nov, [facility] [address] [id number] [address] [place] [address], [place] [address] Nov, [facility] [address] [id number] [address] [place] [address], [place] [address] Nov, [facility] [address] [id number] [address] [place] [address], [place] [address] Nov, [facility] [address] [id number] [address] [place] [address], [place] [address] Nov, [facility] [address] [id number] [address] [place] [address], [place] [address] Oct, [facility] [address] [id number] [address] [place] [address], [place] [address] Oct, [facility] [address] [id number] [address] [place] [address], [place] [address] Oct, [facility] [address] [id number] [address] [place] [address], [place] [address] Oct, [facility] [address] [id number] [address] [place] [address], [place] [address] Oct, [facility] [address] [id number] [address] [place] [address], [place] [address] Oct, [facility] [address] [id number] [address] [place] [address], [place] [address] Oct, [facility] [address] [id number] [address] [place] [address], [place] [address] Oct, [facility] [address] [id number] [address] [place] [address], [place] [address] Oct, [facility] [address] [id number] [address] [place] [address], [place] [address] Oct, [facility] [address] [id number] [address] [place] [address], [place] [address] Oct, [facility] [address] [id number] [address] [place] [address], [place] [address] Oct, [facility] [address] [id number] [address] [place] [address], [place] [address] Oct, [facility] [address] [id number] [address] [place] [address], [place] [address] Oct, [facility] [address] [id number] [address] [place] [address], [place] [address] Oct, [facility] [address] [id number] [address] [place] [address], [place] [address] Oct, [facility] [address] [id number] [address] [place] [address], [place] [address] Oct, [facility] [address] [id number] [address] [place] [address], [place] [address] Oct, [facility] [address] [id number] [address] [place] [address], [place] [address] Oct, [facility] [address] [id number] [address] [place] [address], [place] [address] 05 Oct, 2014 [facility] [address] [id number] [address] [place] [address], [place] [address] 05 Oct, 2014 [facility] [address] [id number] [address] [place] [address], [place] [address] Oct, [facility] [address] [id number] [address] [place] [address], [place] [address] Oct, [facility] [address] [id number] [address] [place] [address], [place] [address] Sep, [facility] [address] [id number] [address] [place] [address], [place] [address] Sep, [facility] [address] [id number] [address] [place] [address], [place] [address] Sep, [facility] [address] [id number] [address] [place] [address], [place] [address] Sep, [facility] [address] [id number] [address] [place] [address], [place] [address] Sep, [facility] [address] [id number] [address] [place] [address], [place] [address] Sep, [facility] [address] [id number] [address] [place] [address], [place] [address] Sep, [facility] [address] [id number] [address] [place] [address], [place] [address] Sep, [facility] [address] [id number] [address] [place] [address], [place] [address] Sep, [facility] [address] [id number] [address] [place] [address], [place] [address] Sep, [facility] [address] [id number] [address] [place] [address], [place] [address] Sep, [facility] [address] [id number] [address] [place] [address], [place] [address] Sep, [facility] [address] [id number] [address] [place] [address], [place] [address] Sep, [facility] [address] [id number] [address] [place] [address], [place] [address] Sep, [facility] [address] [id number] [address] [place] [address], [place] [address] Sep, [facility] [address] [id number] [address] [place] [address], [place] [address] Sep, [facility] [address] [id number] [address] [place] [address], [place] [address] Sep, [facility] [address] [id number] [address] [place] [address], [place] [address] Sep, [facility] [address] [id number] [address] [place] [address], [place] [address] Sep, [facility] [address] [id number] [address] [place] [address], [place] [address] Sep, [facility] [address] [id number] [address] [place] [address], [place] [address] Sep, [facility] [address] [id number] [address] [place] [address], [place] [address] Sep, [facility] [address] [id number] [address] [place] [address], [place] [address] Sep, [facility] [address] [id number] [address] [place] [address], [place] [address] Sep, [facility] [address] [id number] [address] [place] [address], [place] [address] Sep, [facility] [address] [id number] [address] [place] [address], [place] [address] Sep, [facility] [address] [id number] [address] [place] [address], [place] [address] Sep, [facility] [address] [id number] [address] [place] [address], [place] [address] Sep, [facility] [address] [id number] [address] [place] [address], [place] [address] Aug, [facility] [address] [id number] [address] [place] [address], [place] [address] Aug, [facility] [address] [id number] [address] [place] [address], [place] [address] Aug, [facility] [address] [id number] [address] [place] [address], [place] [address] Aug, [facility] [address] [id number] [address] [place] [address], [place] [address] Aug, [facility] [address] [id number] [address] [place] [address], [place] [address] Aug, [facility] [address] [id number] [address] [place] [address], [place] [address] Aug, [facility] [address] [id number] [address] [place] [address], [place] [address] Aug, [facility] [address] [id number] [address] [place] [address], [place] [address] Aug, [facility] [address] [id number] [address] [place] [address], [place] [address] Aug, [facility] [address] [id number] [address] [place] [address], [place] [address] Aug, [facility] [address] [id number] [address] [place] [id number] Aug, [facility] [address] [id number] [address] [place] [id number] Aug, [facility] [address] [id number] [address] [place] [phone] Aug, [facility] [address] [id number] [address] [place] [address], [place] [address] Aug, [facility] [address] [id number] [address] [place] [address], [place] [address] Aug, [facility] [address] [id number] [address] [place] [id number] Aug, [facility] [address] [id number] [address] [place] [id number] 17 Aug, 2013 [facility] [address] [id number] [address] [place] [address], [place] [address] 14 Aug, 2013 [facility] [address] [id number] [address] [place] [id number] 14 Aug, 2013 [facility] [address] [id number] [address] [place] [address], [place] [address] 09 Aug, 2013 [facility] [address] [id number] [address] [place] [id number] 09 Aug, 2013 [facility] [address] [id number] [address] [place] [address], [place] [address] Aug, 2013 [facility] [address] [id number] [address] [place] [address], [place] [address] Aug, 2013 [facility] [address] [id number] [address] [place] [id number] 08 Aug, 2013 [facility] [address] [id number] [address] [place] [id number] 07 Aug, 2013 [facility] [address] [id number] [address] [place] [id number] Aug, 2013 [facility] [address] [id number] [address] [place] [phone] Aug, 2013 [facility] [address] [id number] [address] [place] [id number] 07 Aug, 2013 [facility] [address] [id number] [address] [place] [id number] 30 Jul, 2013 [facility] [address] [id number] [address] [place] [id number] 30 Jul, 2013 [facility] [address] [id number] [address] [place] [id number] 29 Jul, 2013 [facility] [address] [id number] [address] [place] [id number] 29 Jul, 2013 [facility] [address] [id number] [facility] [place] [address] 19 Jul, 2013 [facility] [address] [id number] [facility] [place] [id number] 19 Jul, 2013 [facility] [address] [id number] [facility] [place] [address] 18 Jul, 2013 [facility] [address] [id number] [facility] [place] [address] 18 Jul, 2013 [facility] [address] [id number] [facility] [place] [address] 17 Jul, 2013 [facility] [address] [id number] [address] [place] [address], [place] [id number] 17 Jul, 2013 [facility] [address] [id number] [address] [place] [address], [place] [address] 10 Jul, 2013 [facility] [address] [id number] [address] [place] [address], [place] [address] 10 Jul, 2013 [facility] [address] [id number] [address] [place] [address], [place] [id number] Jun, [facility] [address] [id number] [address] [place] [address], [place] [address] Jun, [facility] [address] [id number] [address] [place] [address], [place] [address] Jun, [facility] [address] [id number] [address] [place] [address], [place] [address] Jun, [facility] [address] [id number] [address] [place] [address], [place] [address] Jun, [facility] [address] [id number] [address] [place] [address], [place] [address] Jun, [facility] [address] [id number] [address] [place] [address], [place] [address] Jun, [facility] [address] [id number] [address] [place] [address] [address] Jun, [facility] [place] [address] [id number] [address] [place] [id number] Jun, [facility] [place] [address] [id number] [address] [place] [phone] Jun, [facility] [place] [address] [id number] [address] [place] [id number] Jun, [facility] [place] [address] [id number] [address] [place] [id number] Jun, [facility] [place] [address] [id number] [address] [place] [phone] May, [facility] [place] [address] [id number] [address] [place] [id number] May, [facility] [place] [address] [facility]NOTE 3] [id number] [address] [place] [id number] May, IMMUNIZATIONS No Known Immunizations SOCIAL HISTORY [...]
--- OUTSIDE RECORDS SUMMARY | 2020-05-03 14:38 | XMS REPORT ---
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 20 Active 769412089 Problem Screening breast examination Z12.39 A ctive 967643211 Problem Irritable bowel syndrome without diarrhea K58.9 Active 81728489 Problem Irritable bowel syndrome with diarrhea K58.0 Active 293672383 ALLERGIES No Information ENCOUNTERS Encounter Location Date Diagnosis [facility] [address] [id number] [place] [address] [id number] March, Dental examination Z01.20 [facility] [address] [id number] [address] [place] [address] [id number] Feb, Caries K02.9 [facility] [address] [id number] [address] [place] [address] [id number] Feb, Caries K02.9 [facility] [address] [id number] [address] [place] [address] [id number] Jan, [facility] [address] [id number] [address] [place] [address] [id number] Jan, Caries K02.9 [facility] [address] [id number] [address] [place] [address] [id number] Dec, [facility] [address] [id number] [address] [place] [address] [id number] 18 Dec, 2018 Dental examination Z01.20 an d Caries K02.9 [place] [address] [id number] 14 Sep, 2016 Dental examination Z01.20 [place] [address] [address] [place] [id number] [address] [place] [id number] 08 Jan, 2016 Nausea R11.0 ; Irritable bow el syndrome without diarrhea K58.9 and History of renal transplant Z94.0 [place] [address] [id number] 2015 [place] [address] [id number] 11 Dec, 2015 Breast pain N64.4 ; Screenin g breast examination Z12.39 and Mild intermittent asthma without complication J45.20 [place] [address] [id number] 10 Dec, 2015 [place] [address] [id number] 09 Dec, 2015 Kidney transplant status Z94 .0 ; Personal history of immunosupression therapy Z92.25 ; Recurrent UTI N39.0 and Encounter for screening, unspecified Z13.9 [place] [address] [address] [place] [id number] [address] [place] [phone] Oct, [place] [address] [address] [place] [id number] [address] [place] [id number] Oct, [place] [address] [place] [id number] [address] [place] [id number] Oct, [place] [address] [id number] Oct, Hiatal hernia K44.9 and Atyp ical chest pain R07.89 [place] [address] [address] [place] [id number] [address] [place] [id number] Oct, [place] [address] [id number] [address] [place] [id number] Sep, Kidney replaced by transplan t V42.0 and Bilateral low back pain with sciatica, sciatica laterality unspecified M54.40 [facility] [place] [address] [id number] [address] [place] [phone] Sep, [facility] [place] [address] [id number] [address] [place] [id number] Sep, Kidney replaced by transplan t V42.0 ; Bilateral low back pain with sciatica, sciatica laterality unspecified M54.40 ; Anxiety F41.9 and Primary insomnia F51.01 [facility] [place] [address] [id number] [address] [place] [id number] Aug, [facility] [place] [address] [id number] [address] [place] [phone] Aug, [facility] [address] [id number] [address] [place] [id number] Aug, Kidney transplant status Z94 .0 ; Personal history of immunosupression therapy Z92.25 ; Recurrent urinary tract infection N39.0 and Screening Z13.9 [facility] [place] [address] [id number] [address] [place] [id number] Aug, [facility] [place] [address] [id number] [address] [place] [id number] Aug, Encounter for aftercare foll owing kidney transplant Z48.22 ; Chronic radicular pain of lower back M54.16 and PND (post-nasal drip) R09.82 [facility] [place] [address] [id number] [address] [place] [id number] Jul, [facility] [place] [address] [id number] [address] [place] [id number] Jul, [facility] [place] [address] [id number] [address] [place] [phone] Jul, [facility] [place] [address] [id number] [address] [place] [id number] Jul, Kidney replaced by transplan t V42.0 ; Depressive disorder, not elsewhere classified 311 ; Anxiety state, unspecified 300.00 ; Insomnia, unspecified 780.52 ; Irritable bowel syndrome 564.1 ; Chronic lumbar pain 724.2 and GERD (gastroesophageal reflux disease) 530.81 [facility] [place] [address] [id number] [address] [place] [id number] Jul, [facility] [place] [address] [id number] [address] [place] [phone] Jun, [facility] [place] [address] [id number] [address] [place] [phone] Jun, [facility] [place] [address] [facility] [id number] [address] [place] [phone] Jun, [facility] [place] [address] [facility] [id number] [address] [place] [id number] Jun, Kidney replaced by transplan t V42.0 [facility] [place] [address] [facility] [id number] [address] [place] [phone] May, [facility] [place] [address] [facility] [id number] [address] [place] [phone] May, Depression with anxiety 300. 4 and Skin infection 686.9 [facility] [place] [address] [facility] [id number] [address] [place] [phone] May, [facility] [place] [address] [id number] [address] [place] [phone] May, Kidney replaced by transplan t V42.0 ; Recurrent UTI (urinary tract infection) 599.0 and Absence of menstruation 626.0 [facility] [place] [address] [facility] [id number] [address] [place] [phone] May, [facility] [place] [address] [facility] [id number] [address] [place] [phone] May, Depression with anxiety 300. 4 [place] [address] [address] [place] [id number] [address] [place] [phone] May, [facility] [place] [address] [place] [id number] [address] [place] [phone] Apr, [facility] [place] [address] [place] [id number] [address] [place] [phone] Apr, [facility] [place] [address] [place] [id number] [address] [place] [phone] Apr, Depression, major, recurrent , mild 296.31 [facility] [place] [address] [place] [id number] [address] [place] [phone] Apr, Depression, major, recurrent , mild 296.31 [place] [address] [address] [place] [id number] [address] [place] [phone] Apr, Cervicalgia 723.1 ; Lumbago 724.2 ; Anxiety state, unspecified 300.00 ; Nausea 787.02 ; 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 ; Recurrent UTI (urinary tract infection) 599.0 and Knee pain, bilateral 719.46 [place] [address] [address] [place] [id number] [address] [place] [phone] March, Depression, major, recurrent , mild 296.31 [facility] [place] [address] [place] [id number] [address] [place] [phone] March, [facility] [place] [address] [place] [id number] [address] [place] [phone] March, [facility] [place] [address] [place] [id number] [address] [place] [phone] March, Lumbago 724.2 ; Insomnia, un specified 780.52 ; Depressive disorder, not elsewhere classified 311 ; 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 ; Anxiety 300.00 ; Allergic rhinitis 477.9 and GERD (gastroesophageal reflux disease) 530.81 [facility] [place] [address] [place] [id number] [address] [place] [id number] Feb, [facility] [place] [address] [id number] [address] [place] [address], [place] [address] Feb, [facility] [address] [id number] [address] [place] [address], [place] [address] Jan, [facility] [address] [id number] [address] [place] [address], [place] [id number] Jan, [facility] [address] [id number] [address] [place] [address], [place] [address] Jan, [facility] [address] [id number] [address] [place] [address], [place] [address] Jan, [facility] [address] [id number] [address] [place] [address], [place] [address] Dec, [facility] [address] [id number] [address] [place] [address], [place] [address] Dec, [facility] [address] [id number] [address] [place] [address], [place] [address] Dec, [facility] [address] [id number] [address] [place] [address], [place] [address] Dec, [facility] [address] [id number] [address] [place] [address], [place] [address] Dec, [facility] [address] [id number] [address] [place] [address], [place] [address] Dec, [facility] [address] [id number] [address] [place] [address], [place] [address] Dec, [facility] [address] [id number] [address] [place] [address], [place] [address] Nov, [facility] [address] [id number] [address] [place] [address], [place] [address] Nov, [facility] [address] [id number] [address] [place] [address], [place] [address] Nov, [facility] [address] [id number] [address] [place] [address] [address] Nov, [facility] [address] [id number] [address] [place] [address], [place] [address] Nov, [facility] [address] [id number] [address] [place] [address], [place] [address] Nov, [facility] [address] [id number] [address] [place] [address], [place] [address] Nov, [facility] [address] [id number] [address] [place] [address], [place] [address] Nov, [facility] [address] [id number] [address] [place] [address], [place] [address] Nov, [facility] [address] [id number] [address] [place] [address], [place] [address] Nov, [facility] [address] [id number] [address] [place] [address], [place] [address] Nov, [facility] [address] [id number] [address] [place] [address], [place] [id number] Nov, [facility] [address] [id number] [address] [place] [address], [place] [address] Nov, [facility] [address] [id number] [address] [place] [address], [place] [address] Nov, [facility] [address] [id number] [address] [place] [address], [place] [address] Nov, [facility] [address] [id number] [address] [place] [address], [place] [address] Nov, [facility] [address] [id number] [address] [place] [address], [place] [address] Nov, [facility] [address] [id number] [address] [place] [address], [place] [address] Nov, [facility] [address] [id number] [address] [place] [address], [place] [address] Nov, [facility] [address] [id number] [address] [place] [address], [place] [address] Nov, [facility] [address] [id number] [address] [place] [address], [place] [address] Nov, [facility] [address] [id number] [address] [place] [address], [place] [address] Nov, [facility] [address] [id number] [address] [place] [address], [place] [address] Nov, [facility] [address] [id number] [address] [place] [address], [place] [address] Nov, [facility] [address] [id number] [address] [place] [address], [place] [address] Nov, [facility] [address] [id number] [address] [place] [address], [place] [address] Nov, [facility] [address] [id number] [address] [place] [address], [place] [address] Nov, [facility] [address] [id number] [address] [place] [address], [place] [address] Nov, [facility] [address] [id number] [address] [place] [address], [place] [address] Nov, [facility] [address] [id number] [address] [place] [address], [place] [address] Oct, [facility] [address] [id number] [address] [place] [address], [place] [address] Oct, [facility] [address] [id number] [address] [place] [address], [place] [address] Oct, [facility] [address] [id number] [address] [place] [address], [place] [address] Oct, [facility] [address] [id number] [address] [place] [address], [place] [address] Oct, [facility] [address] [id number] [address] [place] [address], [place] [address] Oct, [facility] [address] [id number] [address] [place] [address], [place] [address] Oct, [facility] [address] [id number] [address] [place] [address], [place] [address] Oct, [facility] [address] [id number] [address] [place] [address], [place] [address] Oct, [facility] [address] [id number] [address] [place] [address], [place] [address] Oct, [facility] [address] [id number] [address] [place] [address], [place] [address] Oct, [facility] [address] [id number] [address] [place] [address], [place] [address] Oct, [facility] [address] [id number] [address] [place] [address], [place] [address] Oct, [facility] [address] [id number] [address] [place] [address], [place] [address] Oct, [facility] [address] [id number] [address] [place] [address], [place] [address] Oct, [facility] [address] [id number] [address] [place] [address], [place] [address] Oct, [facility] [address] [id number] [address] [place] [address], [place] [address] Oct, [facility] [address] [id number] [address] [place] [address], [place] [address] Oct, [facility] [address] [id number] [address] [place] [address], [place] [address] Oct, [facility] [address] [id number] [address] [place] [address], [place] [address] 05 Oct, 2014 [facility] [address] [id number] [address] [place] [address], [place] [address] 05 Oct, 2014 [facility] [address] [id number] [address] [place] [address], [place] [address] Oct, [facility] [address] [id number] [address] [place] [address], [place] [address] Oct, [facility] [address] [id number] [address] [place] [address], [place] [address] Sep, [facility] [address] [id number] [address] [place] [address], [place] [address] Sep, [facility] [address] [id number] [address] [place] [address], [place] [address] Sep, [facility] [address] [id number] [address] [place] [address], [place] [address] Sep, [facility] [address] [id number] [address] [place] [address], [place] [address] Sep, [facility] [address] [id number] [address] [place] [address], [place] [address] Sep, [facility] [address] [id number] [address] [place] [address], [place] [address] Sep, [facility] [address] [id number] [address] [place] [address], [place] [address] Sep, [facility] [address] [id number] [address] [place] [address], [place] [address] Sep, [facility] [address] [id number] [address] [place] [address], [place] [address] Sep, [facility] [address] [id number] [address] [place] [address], [place] [address] Sep, [facility] [address] [id number] [address] [place] [address], [place] [address] Sep, [facility] [address] [id number] [address] [place] [address], [place] [address] Sep, [facility] [address] [id number] [address] [place] [address], [place] [address] Sep, [facility] [address] [id number] [address] [place] [address], [place] [address] Sep, [facility] [address] [id number] [address] [place] [address], [place] [address] Sep, [facility] [address] [id number] [address] [place] [address], [place] [id number] Sep, [facility] [address] [id number] [address] [place] [address], [place] [id number] Sep, [facility] [address] [id number] [address] [place] [address], [place] [id number] Sep, [facility] [address] [id number] [address] [place] [address], [place] [id number] Sep, [facility] [address] [id number] [address] [place] [address], [place] [id number] Sep, [facility] [address] [id number] [address] [place] [address], [place] [id number] Sep, [facility] [address] [id number] [address] [place] [address], [place] [id number] Sep, [facility] [address] [id number] [address] [place] [address], [place] [address] Sep, [facility] [address] [id number] [address] [place] [address], [place] [id number] Sep, [facility] [address] [id number] [address] [place] [address], [place] [id number] Sep, [facility] [address] [id number] [address] [place] [address], [place] [id number] Sep, [facility] [address] [id number] [address] [place] [address], [place] [id number] Sep, [facility] [address] [id number] [address] [place] [address], [place] [id number] Aug, [facility] [address] [id number] [address] [place] [address], [place] [id number] Aug, [facility] [address] [id number] [address] [place] [address], [place] [id number] Aug, [facility] [address] [id number] [address] [place] [address], [place] [address] Aug, [facility] [address] [id number] [address] [place] [address], [place] [address] Aug, [facility] [address] [id number] [address] [place] [address], [place] [id number] Aug, [facility] [address] [id number] [address] [place] [address], [place] [id number] Aug, [facility] [address] [id number] [address] [place] [address], [place] [id number] Aug, [facility] [address] [id number] [address] [place] [address], [place] [id number] Aug, [facility] [address] [id number] [address] [place] [address], [place] [id number] Aug, [facility] [address] [id number] [address] [place] [address], [place] [address] Aug, [facility] [address] [id number] [address] [place] [id number] Aug, [facility] [address] [id number] [address] [place] [id number] Aug, [facility] [address] [id number] [address] [place] [id number] Aug, [facility] [address] [id number] [address] [place] [address], [place] [id number] Aug, [facility] [address] [id number] [address] [place] [address], [place] [id number] Aug, [facility] [address] [id number] [address] [place] [id number] Aug, [facility] [address] [id number] [address] [place] [id number] 17 Aug, 2013 [facility] [address] [id number] [address] [place] [address], [place] [id number] 14 Aug, 2013 [facility] [address] [id number] [address] [place] [id number] 14 Aug, 2013 [facility] [address] [id number] [address] [place] [address], [place] [id number] 09 Aug, 2013 [facility] [address] [id number] [address] [place] [id number] 09 Aug, 2013 [facility] [address] [id number] [address] [place] [address], [place] [id number] Aug, 2013 [facility] [address] [id number] [address] [place] [address], [place] [id number] Aug, 2013 [facility] [address] [id number] [address] [place] [id number] 08 Aug, 2013 [facility] [address] [id number] [address] [place] [id number] 07 Aug, 2013 [facility] [address] [id number] [address] [place] [id number] Aug, 2013 [facility] [address] [id number] [address] [place] [id number] Aug, 2013 [facility] [address] [id number] [address] [place] [id number] 07 Aug, 2013 [facility] [address] [id number] [address] [place] [id number] 30 Jul, 2013 [facility] [address] [id number] [address] [place] [address] [id number] 30 Jul, 2013 [facility] [address] [id number] [address] [place] [id number] 29 Jul, 2013 [facility] [address] [id number] [address] [place] [id number] 29 Jul, 2013 [facility] [address] [id number] [facility] [place] [id number] 19 Jul, 2013 [facility] [address] [id number] [facility] [place] [id number] 19 Jul, 2013 [facility] [address] [id number] [facility] [place] [id number] 18 Jul, 2013 [facility] [address] [id number] [facility] [place] [id number] 18 Jul, 2013 [facility] [address] [id number] [facility] [place] [id number] 17 Jul, 2013 [facility] [address] [id number] [address] [place] [address], [place] [id number] 17 Jul, 2013 [facility] [address] [id number] [address] [place] [address], [place] [id number] 10 Jul, 2013 [facility] [address] [id number] [address] [place] [address], [place] [id number] 10 Jul, 2013 [facility] [address] [id number] [address] [place] [address], [place] [id number] Jun, [facility] [address] [id number] [address] [place] [address], [place] [id number] Jun, [facility] [address] [id number] [address] [place] [address], [place] [id number] Jun, [facility] [address] [id number] [address] [place] [address], [place] [id number] Jun, [facility] [address] [id number] [address] [place] [address], [place] [id number] Jun, [facility] [address] [id number] [address] [place] [address], [place] [id number] Jun, [facility] [address] [id number] [address] [place] [address], [place] [id number] Jun, [facility] [address] [id number] [address] [place] [address] [address] Jun, [facility] [place] [address] [id number] [address] [place] [id number] Jun, [facility] [place] [address] [id number] [address] [place] [id number] Jun, [facility] [place] [address] [id number] [address] [place] [id number] Jun, [facility] [place] [address] [id number] [address] [place] [id number] Jun, [facility] [place] [address] [id number] [address] [place] [id number] May, [facility] [place] [address] [id number] [address] [place] [id number] May, [facility] [place] [address] [facility] [id number] [address] [place] [id number] May, IMMUNIZATIONS No Known Immunizations SOCIAL HISTORY [...]
--- OUTSIDE RECORDS SUMMARY | 2020-05-03 14:38 | XMS REPORT ---
Author Author Tracee AVILA Organization [facility] Address [address] [place] [address] Care Team Providers Care Codifier Name Role Phone SARAI AVILA Unavailable PROBLEMS Type Condition ICD9-CM Code LLF37-BD Code Onset Dates Condition S tatus SNOMED Code Problem Primary insomnia F51.01 Active 397 2004 Problem Breast pain N64.4 Active 65688708 Problem History of renal transplant Z94.0 Ac tive 778385004 Problem Violation of controlled substance agreement Z91.14 Active 811699679 Problem Mild intermittent asthma without complication J45. 20 Active 067187278 Problem Screening breast examination Z12.39 A ctive 114182809 Problem Irritable bowel syndrome without diarrhea K58.9 Active 94634659 Problem Irritable bowel syndrome with diarrhea K58.0 Active 121607706 ALLERGIES No Information ENCOUNTERS Encounter Location Date Diagnosis [facility] [id number] [place] [address] [id number] March, Dental examination Z01.20 [facility] [address] [id number] [address] [place] [address] [id number] Feb, Caries K02.9 [facility] [address] [id number] [address] [place] [address] [id number] Feb, Caries K02.9 [facility] [address] [id number] [address] [place] [address] [id number] Jan, [facility] [address] [id number] [address] [place] [address] [id number] Jan, Caries K02.9 [facility] [address] [id number] [address] [place] [address] [id number] Dec, [facility] [address] [id number] [address] [place] [address] [id number] 18 Dec, 2018 Dental examination Z01.20 an d Caries K02.9 [place] [address] [address] 14 Sep, 2016 Dental examination Z01.20 [place] [address] [place] [id number] [address] [place] [address] 08 Jan, 2016 Nausea R11.0 ; Irritable bow el syndrome without diarrhea K58.9 and History of renal transplant Z94.0 [place] [address] [address] 2015 [place] [address] [id number] 11 Dec, 2015 Breast pain N64.4 ; Screenin g breast examination Z12.39 and Mild intermittent asthma without complication J45.20 [place] [address] [id number] 10 Dec, 2015 [place] [address] [id number] 09 Dec, 2015 Kidney transplant status Z94 .0 ; Personal history of immunosupression therapy Z92.25 ; Recurrent UTI N39.0 and Encounter for screening, unspecified Z13.9 [place] [address] [address] [place] [id number] [address] [place] [address] Oct, [place] [address] [place] [id number] [address] [place] [address] Oct, [place] [address] [place] [id number] [address] [place] [address] Oct, [place] [address] [address] Oct, Hiatal hernia K44.9 and Atyp ical chest pain R07.89 [place] [address] [place] [id number] [address] [place] [address] Oct, [place] [address] [id number] [address] [place] [address] Sep, Kidney replaced by transplan t V42.0 and Bilateral low back pain with sciatica, sciatica laterality unspecified M54.40 [facility] [address] [id number] [address] [place] [address] Sep, [facility] [address] [id number] [address] [place] [address] Sep, Kidney replaced by transplan t V42.0 ; Bilateral low back pain with sciatica, sciatica laterality unspecified M54.40 ; Anxiety F41.9 and Primary insomnia F51.01 [facility] [address] [id number] [address] [place] [address] Aug, [facility] [address] [id number] [address] [place] [address] Aug, [facility] [address] [id number] [address] [place] [address] Aug, Kidney transplant status Z94 .0 ; Personal history of immunosupression therapy Z92.25 ; Recurrent urinary tract infection N39.0 and Screening Z13.9 [facility] [address] [id number] [address] [place] [address] Aug, [facility] [address] [id number] [address] [place] [address] Aug, Encounter for aftercare foll owing kidney transplant Z48.22 ; Chronic radicular pain of lower back M54.16 and PND (post-nasal drip) R09.82 [facility] [address] [id number] [address] [place] [address] Jul, [facility] [address] [id number] [address] [place] [address] Jul, [facility] [address] [id number] [address] [place] [address] Jul, [facility] [address] [id number] [address] [place] [address] Jul, Kidney replaced by transplan t V42.0 ; Depressive disorder, not elsewhere classified 311 ; Anxiety state, unspecified 300.00 ; Insomnia, unspecified 780.52 ; Irritable bowel syndrome 564.1 ; Chronic lumbar pain 724.2 and GERD (gastroesophageal reflux disease) 530.81 [facility] [address] [id number] [address] [place] [address] Jul, [facility] [address] [id number] [address] [place] [address] Jun, [facility] [address] [id number] [address] [place] [address] Jun, [facility] [address] [facility] [id number] [address] [place] [address] Jun, [facility] [address] [facility] [id number] [address] [place] [address] Jun, Kidney replaced by transplan t V42.0 [facility] [address] [facility] [id number] [address] [place] [address] May, [facility] [address] [facility] [id number] [address] [place] [address] May, Depression with anxiety 300. 4 and Skin infection 686.9 [facility] [address] [facility] [id number] [address] [place] [address] May, [facility] [address] [id number] [address] [place] [address] May, Kidney replaced by transplan t V42.0 ; Recurrent UTI (urinary tract infection) 599.0 and Absence of menstruation 626.0 [facility] [address] [facility] [id number] [address] [place] [address] May, [facility] [address] [facility] [id number] [address] [place] [phone] May, Depression with anxiety 300. 4 [place] [address] [place] [id number] [address] [place] [address] May, [facility] [address] [place] [id number] [address] [place] [address] Apr, [facility] [address] [place] [id number] [address] [place] [address] Apr, [facility] [address] [place] [id number] [address] [place] [address] Apr, Depression, major, recurrent , mild 296.31 [facility] [address] [place] [id number] [address] [place] [address] Apr, Depression, major, recurrent , mild 296.31 [place] [address] [place] [id number] [address] [place] [address] Apr, Cervicalgia 723.1 ; Lumbago 724.2 ; Anxiety state, unspecified 300.00 ; Nausea 787.02 ; 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 ; Recurrent UTI (urinary tract infection) 599.0 and Knee pain, bilateral 719.46 [place] [address] [place] [id number] [address] [place] [address] March, Depression, major, recurrent , mild 296.31 [facility] [address] [place] [id number] [address] [place] [address] March, [facility] [address] [place] [id number] [address] [place] [address] March, [facility] [address] [place] [id number] [address] [place] [address] March, Lumbago 724.2 ; Insomnia, un specified 780.52 ; Depressive disorder, not elsewhere classified 311 ; 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 ; Anxiety 300.00 ; Allergic rhinitis 477.9 and GERD (gastroesophageal reflux disease) 530.81 [facility] [address] [place] [id number] [address] [place] [address] Feb, [facility] [address] [id number] [address] [place] [address], [place] [address] Feb, [facility] [address] [id number] [address] [place] [address], [place] [address] Jan, [facility] [address] [id number] [address] [place] [address], [place] [address] Jan, [facility] [address] [id number] [address] [place] [address], [place] [address] Jan, [facility] [address] [id number] [address] [place] [address], [place] [address] Jan, [facility] [address] [id number] [address] [place] [address], [place] [address] Dec, [facility] [address] [id number] [address] [place] [address], [place] [address] Dec, [facility] [address] [id number] [address] [place] [address], [place] [address] Dec, [facility] [address] [id number] [address] [place] [address], [place] [address] Dec, [facility] [address] [id number] [address] [place] [address], [place] [address] Dec, [facility] [address] [id number] [address] [place] [address], [place] [address] Dec, [facility] [address] [id number] [address] [place] [address], [place] [address] Dec, [facility] [address] [id number] [address] [place] [address], [place] [id number] Nov, [facility] [address] [id number] [address] [place] [address], [place] [id number] Nov, [facility] [address] [id number] [address] [place] [address], [place] [address] Nov, [facility] [address] [id number] [address] [place] [address] [address] Nov, [facility] [address] [id number] [address] [place] [address], [place] [address] Nov, [facility] [address] [id number] [address] [place] [address], [place] [address] Nov, [facility] [address] [id number] [address] [place] [address], [place] [address] Nov, [facility] [address] [id number] [address] [place] [address], [place] [address] Nov, [facility] [address] [id number] [address] [place] [address], [place] [address] Nov, [facility] [address] [id number] [address] [place] [address], [place] [address] Nov, [facility] [address] [id number] [address] [place] [address], [place] [address] Nov, [facility] [address] [id number] [address] [place] [address], [place] [address] Nov, [facility] [address] [id number] [address] [place] [address], [place] [address] Nov, [facility] [address] [id number] [address] [place] [address], [place] [address] Nov, [facility] [address] [id number] [address] [place] [address], [place] [address] Nov, [facility] [address] [id number] [address] [place] [address], [place] [address] Nov, [facility] [address] [id number] [address] [place] [address], [place] [address] Nov, [facility] [address] [id number] [address] [place] [address], [place] [address] Nov, [facility] [address] [id number] [address] [place] [address], [place] [address] Nov, [facility] [address] [id number] [address] [place] [address], [place] [address] Nov, [facility] [address] [id number] [address] [place] [address], [place] [address] Nov, [facility] [address] [id number] [address] [place] [address], [place] [address] Nov, [facility] [address] [id number] [address] [place] [address], [place] [address] Nov, [facility] [address] [id number] [address] [place] [address], [place] [address] Nov, [facility] [address] [id number] [address] [place] [address], [place] [address] Nov, [facility] [address] [id number] [address] [place] [address], [place] [address] Nov, [facility] [address] [id number] [address] [place] [address], [place] [address] Nov, [facility] [address] [id number] [address] [place] [address], [place] [address] Nov, [facility] [address] [id number] [address] [place] [address], [place] [address] Nov, [facility] [address] [id number] [address] [place] [address], [place] [address] Oct, [facility] [address] [id number] [address] [place] [address], [place] [address] Oct, [facility] [address] [id number] [address] [place] [address], [place] [address] Oct, [facility] [address] [id number] [address] [place] [address], [place] [address] Oct, [facility] [address] [id number] [address] [place] [address], [place] [address] Oct, [facility] [address] [id number] [address] [place] [address], [place] [address] Oct, [facility] [address] [id number] [address] [place] [address], [place] [address] Oct, [facility] [address] [id number] [address] [place] [address], [place] [address] Oct, [facility] [address] [id number] [address] [place] [address], [place] [address] Oct, [facility] [address] [id number] [address] [place] [address], [place] [address] Oct, [facility] [address] [id number] [address] [place] [address], [place] [address] Oct, [facility] [address] [id number] [address] [place] [address], [place] [address] Oct, [facility] [address] [id number] [address] [place] [address], [place] [address] Oct, [facility] [address] [id number] [address] [place] [address], [place] [address] Oct, [facility] [address] [id number] [address] [place] [address], [place] [address] Oct, [facility] [address] [id number] [address] [place] [address], [place] [address] Oct, [facility] [address] [id number] [address] [place] [address], [place] [address] Oct, [facility] [address] [id number] [address] [place] [address], [place] [address] Oct, [facility] [address] [id number] [address] [place] [address], [place] [address] Oct, [facility] [address] [id number] [address] [place] [address], [place] [address] 05 Oct, 2014 [facility] [address] [id number] [address] [place] [address], [place] [address] 05 Oct, 2014 [facility] [address] [id number] [address] [place] [address], [place] [address] Oct, [facility] [address] [id number] [address] [place] [address], [place] [address] Oct, [facility] [address] [id number] [address] [place] [address], [place] [address] Sep, [facility] [address] [id number] [address] [place] [address], [place] [address] Sep, [facility] [address] [id number] [address] [place] [address], [place] [address] Sep, [facility] [address] [id number] [address] [place] [address], [place] [address] Sep, [facility] [address] [id number] [address] [place] [address], [place] [address] Sep, [facility] [address] [id number] [address] [place] [address], [place] [address] Sep, [facility] [address] [id number] [address] [place] [address], [place] [address] Sep, [facility] [address] [id number] [address] [place] [address], [place] [address] Sep, [facility] [address] [id number] [address] [place] [address], [place] [address] Sep, [facility] [address] [id number] [address] [place] [address], [place] [address] Sep, [facility] [address] [id number] [address] [place] [address], [place] [address] Sep, [facility] [address] [id number] [address] [place] [address], [place] [address] Sep, [facility] [address] [id number] [address] [place] [address], [place] [address] Sep, [facility] [address] [id number] [address] [place] [address], [place] [address] Sep, [facility] [address] [id number] [address] [place] [address], [place] [address] Sep, [facility] [address] [id number] [address] [place] [address], [place] [address] Sep, [facility] [address] [id number] [address] [place] [address], [place] [address] Sep, [facility] [address] [id number] [address] [place] [address], [place] [address] Sep, [facility] [address] [id number] [address] [place] [address], [place] [address] Sep, [facility] [address] [id number] [address] [place] [address], [place] [address] Sep, [facility] [address] [id number] [address] [place] [address], [place] [address] Sep, [facility] [address] [id number] [address] [place] [address], [place] [address] Sep, [facility] [address] [id number] [address] [place] [address], [place] [address] Sep, [facility] [address] [id number] [address] [place] [address], [place] [address] Sep, [facility] [address] [id number] [address] [place] [address], [place] [address] Sep, [facility] [address] [id number] [address] [place] [address], [place] [address] Sep, [facility] [address] [id number] [address] [place] [address], [place] [address] Sep, [facility] [address] [id number] [address] [place] [address], [place] [address] Sep, [facility] [address] [id number] [address] [place] [address], [place] [address] Aug, [facility] [address] [id number] [address] [place] [address], [place] [address] Aug, [facility] [address] [id number] [address] [place] [address], [place] [address] Aug, [facility] [address] [id number] [address] [place] [address], [place] [address] Aug, [facility] [address] [id number] [address] [place] [address], [place] [address] Aug, [facility] [address] [id number] [address] [place] [address], [place] [address] Aug, [facility] [address] [id number] [address] [place] [address], [place] [address] Aug, [facility] [address] [id number] [address] [place] [address], [place] [address] Aug, [facility] [address] [id number] [address] [place] [address], [place] [address] Aug, [facility] [address] [id number] [address] [place] [address], [place] [address] Aug, [facility] [address] [id number] [address] [place] [address], [place] [address] Aug, [facility] [address] [id number] [address] [place] [id number] Aug, [facility] [address] [id number] [address] [place] [id number] Aug, [facility] [address] [id number] [address] [place] [id number] Aug, [facility] [address] [id number] [address] [place] [address], [place] [id number] Aug, [facility] [address] [id number] [address] [place] [address], [place] [id number] Aug, [facility] [address] [id number] [address] [place] [id number] Aug, [facility] [address] [id number] [address] [place] [id number] 17 Aug, 2013 [facility] [address] [id number] [address] [place] [address], [place] [id number] 14 Aug, 2013 [facility] [address] [id number] [address] [place] [id number] 14 Aug, 2013 [facility] [address] [id number] [address] [place] [address], [place] [id number] 09 Aug, 2013 [facility] [address] [id number] [address] [place] [id number] 09 Aug, 2013 [facility] [address] [id number] [address] [place] [address], [place] [id number] Aug, 2013 [facility] [address] [id number] [address] [place] [address], [place] [id number] Aug, 2013 [facility] [address] [id number] [address] [place] [id number] 08 Aug, 2013 [facility] [address] [id number] [address] [place] [id number] 07 Aug, 2013 [facility] [address] [id number] [address] [place] [id number] Aug, 2013 [facility] [address] [id number] [address] [place] [id number] Aug, 2013 [facility] [address] [id number] [address] [place] [id number] 07 Aug, 2013 [facility] [address] [id number] [address] [place] [id number] 30 Jul, 2013 [facility] [address] [id number] [address] [place] [id number] 30 Jul, 2013 [facility] [address] [id number] [address] [place] [id number] 29 Jul, 2013 [facility] [address] [id number] [address] [place] [id number] 29 Jul, 2013 [facility] [address] [id number] [address] [place] [id number] 19 Jul, 2013 [facility] [address] [id number] [address] [place] [id number] 19 Jul, 2013 [facility] [address] [id number] [address] [place] [id number] 18 Jul, 2013 [facility] [address] [id number] [address] [place] [id number] 18 Jul, 2013 [facility] [address] [id number] [address] [place] [id number] 17 Jul, 2013 [facility] [address] [id number] [address] [place] [address], [place] [id number] 17 Jul, 2013 [facility] [address] [id number] [address] [place] [address], [place] [id number] 10 Jul, 2013 [facility] [address] [id number] [address] [place] [address], [place] [id number] 10 Jul, 2013 [facility] [address] [id number] [address] [place] [address], [place] [id number] Jun, [facility] [address] [id number] [address] [place] [address], [place] [id number] Jun, [facility] [address] [id number] [address] [place] [address], [place] [id number] Jun, [facility] [address] [id number] [address] [place] [address], [place] [id number] Jun, [facility] [address] [id number] [address] [place] [address], [place] [id number] Jun, [facility] [address] [id number] [address] [place] [address], [place] [id number] Jun, [facility] [address] [id number] [address] [place] [address], [place] [id number] Jun, [facility] [address] [id number] [address] [place], [place] [address] [address] Jun, [facility] [address] [id number] [address] [place] [id number] Jun, [facility] [address] [id number] [address] [place] [id number] Jun, [facility] [address] [id number] [address] [place] [id number] Jun, [facility] [address] [id number] [address] [place] [id number] Jun, [facility] [address] [id number] [address] [place] [id number] May, [facility] [address] [id number] [address] [place] [id number] May, [facility] [address] [facility] [id number] [address] [place] [id number] May, IMMUNIZATIONS No Known Immunizations SOCIAL HISTORY [...]
--- OUTSIDE RECORDS SUMMARY | 2020-05-03 14:39 | XMS REPORT ---
Author Author Tracee Conrad Organization [facility] Address [address] [place] [address] Care Team Providers Care Marine Services Technician Name Role Phone MARVIN Conrad Unavailable PROBLEMS Type Condition ICD9-CM Code AXT82-WY Code Onset Dates Condition S tatus SNOMED Code Problem Primary insomnia F51.01 Active 397 2004 Problem Breast pain N64.4 Active 66386914 Problem History of renal transplant Z94.0 Ac tive 726041843 Problem Violation of controlled substance agreement Z91.14 Active 750458605 Problem Mild intermittent asthma without complication J45. 20 Active 051748363 Problem Screening breast examination Z12.39 A ctive 468319984 Problem Irritable bowel syndrome without diarrhea K58.9 Active 36817928 Problem Irritable bowel syndrome with diarrhea K58.0 Active [id number] ALLERGIES No Information ENCOUNTERS Encounter Location Date Diagnosis [facility] [address] [id number] [address] [place] [address] [id number] March, Dental examination Z01.20 [facility] [address] [id number] [address] [place] [address] [id number] Feb, Caries K02.9 [facility] [address] [id number] [address] [place] [address] [id number] Feb, Caries K02.9 [facility] [address] [id number] [address] [place] [address] [id number] Jan, [facility] [address] [id number] [address] [place] [address] [id number] Jan, Caries K02.9 [facility] [address] [id number] [address] [place] [address] [id number] Dec, [facility] [address] [id number] [address] [place] [address] [id number] 18 Dec, 2018 Dental examination Z01.20 an d Caries K02.9 [place] [address] [id number] 14 Sep, 2016 Dental examination Z01.20 [place] [address] [address] [place] [id number] [address] [place] [address] 08 Jan, 2016 Nausea R11.0 ; Irritable bow el syndrome without diarrhea K58.9 and History of renal transplant Z94.0 [place] [address] [id number] 2015 [place] [address] [id number] 11 Dec, 2015 Breast pain N64.4 ; Screenin g breast examination Z12.39 and Mild intermittent asthma without complication J45.20 [place] [address] [address] 10 Dec, 2015 [place] [address] [address] 09 Dec, 2015 Kidney transplant status Z94 .0 ; Personal history of immunosupression therapy Z92.25 ; Recurrent UTI N39.0 and Encounter for screening, unspecified Z13.9 [place] [address] [address] [place] [id number] [address] [place] [address] Oct, [place] [address] [place] [id number] [address] [place] [address] Oct, [place] [address] [address] Oct, [place] [address] [address] Oct, Hiatal hernia K44.9 and Atyp ical chest pain R07.89 [place] [address] [address] Oct, [place] [address] [id number] [address] [place] [address] Sep, Kidney replaced by transplan t V42.0 and Bilateral low back pain with sciatica, sciatica laterality unspecified M54.40 [facility] [address] [id number] [address] [place] [address] Sep, [facility] [address] [id number] [address] [place] [address] Sep, Kidney replaced by transplan t V42.0 ; Bilateral low back pain with sciatica, sciatica laterality unspecified M54.40 ; Anxiety F41.9 and Primary insomnia F51.01 [facility] [address] [id number] [address] [place] [address] Aug, [facility] [address] [id number] [address] [place] [address] Aug, [facility] [address] [id number] [address] [place] [address] Aug, Kidney transplant status Z94 .0 ; Personal history of immunosupression therapy Z92.25 ; Recurrent urinary tract infection N39.0 and Screening Z13.9 [facility] [address] [id number] [address] [place] [address] Aug, [facility] [address] [id number] [address] [place] [address] Aug, Encounter for aftercare foll owing kidney transplant Z48.22 ; Chronic radicular pain of lower back M54.16 and PND (post-nasal drip) R09.82 [facility] [address] [id number] [address] [place] [address] Jul, [facility] [address] [id number] [address] [place] [address] Jul, [facility] [address] [id number] [address] [place] [address] Jul, [facility] [address] [id number] [address] [place] [address] Jul, Kidney replaced by transplan t V42.0 ; Depressive disorder, not elsewhere classified 311 ; Anxiety state, unspecified 300.00 ; Insomnia, unspecified 780.52 ; Irritable bowel syndrome 564.1 ; Chronic lumbar pain 724.2 and GERD (gastroesophageal reflux disease) 530.81 [facility] [address] [id number] [address] [place] [address] Jul, [facility] [address] [id number] [address] [place] [address] Jun, [facility] [address] [id number] [address] [place] [address] Jun, [facility] [address] [id number] [address] [place] [address] Jun, [facility] [address] [facility] [id number] [address] [place] [address] Jun, Kidney replaced by transplan t V42.0 [facility] [address] [id number] [address] [place] [address] May, [facility] [address] [id number] [address] [place] [address] May, Depression with anxiety 300. 4 and Skin infection 686.9 [place] [address] [id number] [address] [place] [address] May, [facility] [address] [id number] [address] [place] [address] May, Kidney replaced by transplan t V42.0 ; Recurrent UTI (urinary tract infection) 599.0 and Absence of menstruation 626.0 [facility] [address] [facility] [id number] [address] [place] [address] May, [facility] [address] [facility] [id number] [address] [place] [address] May, Depression with anxiety 300. 4 [place] [address] [facility] [id number] [address] [place] [address] May, [facility] [address] [place] [id number] [address] [place] [address] Apr, [facility] [address] [facility] [id number] [address] [place] [address] Apr, [facility] [address] [place] [id number] [address] [place] [address] Apr, Depression, major, recurrent , mild 296.31 [facility] [address] [place] [id number] [address] [place] [address] Apr, Depression, major, recurrent , mild 296.31 [place] [address] [place] [id number] [address] [place] [address] Apr, Cervicalgia 723.1 ; Lumbago 724.2 ; Anxiety state, unspecified 300.00 ; Nausea 787.02 ; 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 ; Recurrent UTI (urinary tract infection) 599.0 and Knee pain, bilateral 719.46 [place] [address] [place] [id number] [address] [place] [address] March, Depression, major, recurrent , mild 296.31 [place] [address] [place] [id number] [address] [place] [address] March, [facility] [address] [place] [id number] [address] [place] [address] March, [facility] [address] [place] [id number] [address] [place] [address] March, Lumbago 724.2 ; Insomnia, un specified 780.52 ; Depressive disorder, not elsewhere classified 311 ; 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 ; Anxiety 300.00 ; Allergic rhinitis 477.9 and GERD (gastroesophageal reflux disease) 530.81 [place] [address] [place] [id number] [address] [place] [address] Feb, [facility] [address] [id number] [address] [place] [address], [place] [address] Feb, [facility] [address] [id number] [address] [place] [address], [place] [address] Jan, [facility] [address] [id number] [address] [place] [address], [place] [address] Jan, [facility] [address] [id number] [address] [place] [address], [place] [address] Jan, [facility] [address] [id number] [address] [place] [address], [place] [address] Jan, [facility] [address] [id number] [address] [place] [address], [place] [address] Dec, [facility] [address] [id number] [address] [place] [address], [place] [address] Dec, [facility] [address] [id number] [address] [place] [address], [place] [address] Dec, [facility] [address] [id number] [address] [place] [address], [place] [address] Dec, [facility] [address] [id number] [address] [place] [address], [place] [address] Dec, [facility] [address] [id number] [address] [place] [address], [place] [address] Dec, [facility] [address] [id number] [address] [place] [address], [place] [address] Dec, [facility] [address] [id number] [address] [place] [address], [place] [address] Nov, [facility] [address] [id number] [address] [place] [address], [place] [address] Nov, [facility] [address] [id number] [address] [place] [address], [place] [address] Nov, [facility] [address] [id number] [address] [place] [address] Nov, [facility] [address] [id number] [address] [place] [address], [place] [address] Nov, [facility] [address] [id number] [address] [place] [address], [place] [address] Nov, [facility] [address] [id number] [address] [place] [address], [place] [address] Nov, [facility] [address] [id number] [address] [place] [address], [place] [address] Nov, [facility] [address] [id number] [address] [place] [address], [place] [address] Nov, [facility] [address] [id number] [address] [place] [address], [place] [address] Nov, [facility] [address] [id number] [address] [place] [address], [place] [address] Nov, [facility] [address] [id number] [address] [place] [address], [place] [address] Nov, [facility] [address] [id number] [address] [place] [address], [place] [address] Nov, [facility] [address] [id number] [address] [place] [address], [place] [address] Nov, [facility] [address] [id number] [address] [place] [address], [place] [address] Nov, [facility] [address] [id number] [address] [place] [address], [place] [address] Nov, [facility] [address] [id number] [address] [place] [address], [place] [address] Nov, [facility] [address] [id number] [address] [place] [address], [place] [address] Nov, [facility] [address] [id number] [address] [place] [address], [place] [address] Nov, [facility] [address] [id number] [address] [place] [address], [place] [address] Nov, [facility] [address] [id number] [address] [place] [address], [place] [address] Nov, [facility] [address] [id number] [address] [place] [address], [place] [address] Nov, [facility] [address] [id number] [address] [place] [address], [place] [address] Nov, [facility] [address] [id number] [address] [place] [address], [place] [address] Nov, [facility] [address] [id number] [address] [place] [address], [place] [address] Nov, [facility] [address] [id number] [address] [place] [address], [place] [address] Nov, [facility] [address] [id number] [address] [place] [address], [place] [address] Nov, [facility] [address] [id number] [address] [place] [address], [place] [address] Nov, [facility] [address] [id number] [address] [place] [address], [place] [address] Nov, [facility] [address] [id number] [address] [place] [address], [place] [address] Oct, [facility] [address] [id number] [address] [place] [address], [place] [address] Oct, [facility] [address] [id number] [address] [place] [address], [place] [address] Oct, [facility] [address] [id number] [address] [place] [address], [place] [address] Oct, [facility] [address] [id number] [address] [place] [address], [place] [address] Oct, [facility] [address] [id number] [address] [place] [address], [place] [address] Oct, [facility] [address] [id number] [address] [place] [address], [place] [address] Oct, [facility] [address] [id number] [address] [place] [address], [place] [address] Oct, [facility] [address] [id number] [address] [place] [address], [place] [address] Oct, [facility] [address] [id number] [address] [place] [address], [place] [address] Oct, [facility] [address] [id number] [address] [place] [address], [place] [address] Oct, [facility] [address] [id number] [address] [place] [address], [place] [address] Oct, [facility] [address] [id number] [address] [place] [address], [place] [address] 17 Oct, 2014 [facility] [address] [id number] [address] [place] [address], [place] [address] 17 Oct, 2014 [facility] [address] [id number] [address] [place] [address], [place] [address] 16 Oct, 2014 [facility] [address] [id number] [address] [place] [address], [place] [address] 16 Oct, 2014 [facility] [address] [id number] [address] [place] [address], [place] [address] 13 Oct, 2014 [facility] [address] [id number] [address] [place] [address], [place] [address] Oct, [facility] [address] [id number] [address] [place] [address], [place] [address] Oct, [facility] [address] [id number] [address] [place] [address], [place] [address] 05 Oct, 2014 [facility] [address] [id number] [address] [place] [address], [place] [address] 05 Oct, 2014 [facility] [address] [id number] [address] [place] [address], [place] [address] Oct, [facility] [address] [id number] [address] [place] [address], [place] [address] Oct, [facility] [address] [id number] [address] [place] [address], [place] [address] Sep, [facility] [address] [id number] [address] [place] [address], [place] [address] Sep, [facility] [address] [id number] [address] [place] [address], [place] [address] Sep, [facility] [address] [id number] [address] [place] [address], [place] [address] Sep, [facility] [address] [id number] [address] [place] [address], [place] [address] Sep, [facility] [address] [id number] [address] [place] [address], [place] [address] Sep, [facility] [address] [id number] [address] [place] [address], [place] [address] Sep, [facility] [address] [id number] [address] [place] [address], [place] [address] Sep, [facility] [address] [id number] [address] [place] [address], [place] [address] Sep, [facility] [address] [id number] [address] [place] [address], [place] [address] Sep, [facility] [address] [id number] [address] [place] [address] Sep, [facility] [address] [id number] [address] [place] [address], [place] [address] Sep, [facility] [address] [id number] [address] [place] [address], [place] [address] Sep, [facility] [address] [id number] [address] [place] [address], [place] [address] Sep, [facility] [address] [id number] [address] [place] [address], [place] [address] Sep, [facility] [address] [id number] [address] [place] [address], [place] [address] Sep, [facility] [address] [id number] [address] [place] [address], [place] [address] Sep, [facility] [address] [id number] [address] [place] [address], [place] [address] Sep, [facility] [address] [id number] [address] [place] [address], [place] [address] Sep, [facility] [address] [id number] [address] [place] [address], [place] [address] Sep, [facility] [address] [id number] [address] [place] [address], [place] [address] Sep, [facility] [address] [id number] [address] [place] [address], [place] [address] Sep, [facility] [address] [id number] [address] [place] [address], [place] [address] Sep, [facility] [address] [id number] [address] [place] [address], [place] [address] Sep, [facility] [address] [id number] [address] [place] [address], [place] [address] Sep, [facility] [address] [id number] [address] [place] [address], [place] [address] Sep, [facility] [address] [id number] [address] [place] [address], [place] [address] Sep, [facility] [address] [id number] [address] [place] [address], [place] [address] Sep, [facility] [address] [id number] [address] [place] [address], [place] [address] Aug, [facility] [address] [id number] [address] [place] [address], [place] [address] Aug, [facility] [address] [id number] [address] [place] [address], [place] [address] Aug, [facility] [address] [id number] [address] [place] [address], [place] [address] Aug, [facility] [address] [id number] [address] [place] [address], [place] [address] Aug, [facility] [address] [id number] [address] [place] [address], [place] [address] Aug, [facility] [address] [id number] [address] [place] [address], [place] [address] Aug, [facility] [address] [id number] [address] [place] [address], [place] [address] Aug, [facility] [address] [id number] [address] [place] [address], [place] [address] Aug, [facility] [address] [id number] [address] [place] [address], [place] [address] Aug, [facility] [address] [id number] [address] [place] [address], [place] [address] Aug, [facility] [address] [id number] [address] [place] [address], [place] [address] Aug, [facility] [address] [id number] [address] [place] [address], [place] [address] Aug, [facility] [address] [id number] [address] [place] [id number] Aug, [facility] [address] [id number] [address] [place] [address], [place] [address] Aug, [facility] [address] [id number] [address] [place] [address], [place] [address] Aug, [facility] [address] [id number] [address] [place] [address], [place] [address] 17 Aug, 2014 [facility] [address] [id number] [address] [place] [address], [place] [address] 17 Aug, 2013 [facility] [address] [id number] [address] [place] [address], [place] [address] 14 Aug, 2013 [facility] [address] [id number] [address] [place] [address], [place] [address] 14 Aug, 2013 [facility] [address] [id number] [address] [place] [address], [place] [address] 09 Aug, 2013 [facility] [address] [id number] [address] [place] [address], [place] [address] 09 Aug, 2013 [facility] [address] [id number] [address] [place] [address], [place] [address] Aug, 2013 [facility] [address] [id number] [address] [place] [address], [place] [address] 09 Aug, 2013 [facility] [address] [id number] [address] [place] [address], [place] [address] 08 Aug, 2013 [facility] [address] [id number] [address] [place] [address], [place] [address] 07 Aug, 2013 [facility] [address] [id number] [address] [place] [address], [place] [address] Aug, 2013 [facility] [address] [id number] [address] [place] [address], [place] [address] Aug, 2013 [facility] [address] [id number] [address] [place] [address], [place] [address] 07 Aug, 2013 [facility] [address] [id number] [address] [place] [id number] 30 Jul, 2013 [facility] [address] [id number] [address] [place] [address], [place] [address] 30 Jul, 2013 [facility] [address] [id number] [address] [place] [address], [place] [address] 29 Jul, 2013 [facility] [address] [id number] [address] [place] [address], [place] [address] 29 Jul, 2013 [facility] [address] [id number] [facility] [place] [address] 19 Jul, 2013 [facility] [address] [id number] [address] [place] [address], [place] [address] 19 Jul, 2013 [facility] [address] [id number] [address] [place] [address], [place] [address] 18 Jul, 2013 [facility] [address] [id number] [address] [place] [address], [place] [address] 18 Jul, 2013 [facility] [address] [id number] [address] [place] [address], [place] [address] 17 Jul, 2013 [facility] [address] [id number] [address] [place] [address], [place] [address] 17 Jul, 2013 [facility] [address] [id number] [address] [place] [address], [place] [address] 10 Jul, 2014 [facility] [address] [address] [id number] [address] [place] [address], [place] [address] 10 Jul, 2013 [facility] [address] [id number] [address] [place] [address], [place] [address] Jun, [facility] [address] [id number] [address] [place] [address], [place] [address] Jun, [facility] [address] [id number] [address] [place] [address], [place] [address] Jun, [facility] [address] [id number] [address] [place] [address], [place] [address] Jun, [facility] [address] [id number] [address] [place] [address], [place] [address] Jun, [facility] [address] [id number] [address] [place] [address], [place] [address] Jun, [facility] [address] [id number] [address] [place] [address], [place] [address] Jun, [facility] [address] [id number] [address] [address] Jun, [facility] [address] [id number] [address] [place] [id number] Jun, [facility] [address] [id number] [address] [place] [id number] Jun, [facility] [address] [id number] [address] [place] [id number] Jun, [facility] [address] [id number] [address] [place] [id number] Jun, [facility] [address] [id number] [address] [place] [id number] May, [facility] [address] [id number] [address] [place] [id number] May, [facility] [address] [id number] [address] [place] [id number] May, IMMUNIZATIONS No Known Immunizations SOCIAL HISTORY Never Assessed REASON FOR VISIT PLAN OF CARE VITAL SIGNS Height 67 in 2014-09-25 Weight 242.9 lbs 2014-09-25 Temperature 97.5 degrees Fahrenheit 2014-09-25 Heart Rate 86 bpm 2014-09-25 Respiratory Rate 16 2014-09-25 Blood pressure systolic 126 mmHg 2014-09-25 Blood pressure diastolic 76 mmHg 2014-09-25 MEDICATIONS Unknown Medications RESULTS No Results PROCEDURES Procedure Date Ordered Result Body Site STREP A ASSAY W/OPTIC Sep 25, 2014 INSTRUCTIONS MEDICATIONS ADMINISTERED No Known Medications [...]
--- OUTSIDE RECORDS SUMMARY | 2020-05-03 14:39 | XMS REPORT ---
Author Author Tracee AVILA Organization [facility] [place] Address [address] [place] [address] Care Team Providers Care [facility] Docent Name Role Phone SARAI AVILA Unavailable PROBLEMS Type Condition ICD9-CM Code MDD09-NB Code Onset Dates Condition S tatus SNOMED Code Problem Primary insomnia F51.01 Active 397 2004 Problem Breast pain N64.4 Active 24639143 Problem History of renal transplant Z94.0 Ac tive 085423808 Problem Violation of controlled substance agreement Z91.14 Active 080469257 Problem Mild intermittent asthma without complication J45. 20 Active 697450312 Problem Screening breast examination Z12.39 A ctive 548344663 Problem Irritable bowel syndrome without diarrhea K58.9 Active 31016872 Problem Irritable bowel syndrome with diarrhea K58.0 Active 903235427 ALLERGIES No Information ENCOUNTERS Encounter Location Date Diagnosis [facility] [address] [id number] [place] [address] [id number] March, Dental examination Z01.20 [facility] [address] [id number] [address] [place] [address] [id number] Feb, Caries K02.9 [facility] [address] [id number] [address] [place] [address] [id number] Feb, Caries K02.9 [facility] [address] [id number] [address] [place] [address] [id number] Jan, [facility] [address] [id number] [address] [place] [address] [id number] Jan, Caries K02.9 [facility] [address] [id number] [address] [place] [address] [id number] Dec, [facility] [address] [id number] [address] [place] [address] [id number] Dec, 2018 Dental examination Z01.20 an d Caries K02.9 [place] [address] [id number] 14 Sep, 2016 Dental examination Z01.20 [place] [address] [place] [id number] [address] [place] [id number] 08 Jan, 2016 Nausea R11.0 ; Irritable bow el syndrome without diarrhea K58.9 and History of renal transplant Z94.0 [place] [address] [id number] 2015 [place] [address] [id number] 11 Dec, 2015 Breast pain N64.4 ; Screenin g breast examination Z12.39 and Mild intermittent asthma without complication J45.20 [place] [address] [id number] 10 Dec, 2015 [place] [address] [id number] 09 Dec, 2015 Kidney transplant status Z94 .0 ; Personal history of immunosupression therapy Z92.25 ; Recurrent UTI N39.0 and Encounter for screening, unspecified Z13.9 [place] [address] [address] [place] [id number] [address] [place] [address] Oct, [place] [address] [place] [id number] [address] [place] [address] Oct, [place] [address] [place] [id number] [address] [place] [id number] Oct, [place] [address] [id number] Oct, Hiatal hernia K44.9 and Atyp ical chest pain R07.89 [place] [address] [address] [place] [id number] [address] [place] [address] Oct, [place] [address] [id number] [address] [place] [address] Sep, Kidney replaced by transplan t V42.0 and Bilateral low back pain with sciatica, sciatica laterality unspecified M54.40 [facility] [place] [address] [id number] [address] [place] [address] Sep, [facility] [place] [address] [id number] [address] [place] [address] Sep, Kidney replaced by transplan t V42.0 ; Bilateral low back pain with sciatica, sciatica laterality unspecified M54.40 ; Anxiety F41.9 and Primary insomnia F51.01 [facility] [place] [address] [id number] [address] [place] [id number] Aug, [facility] [place] [address] [id number] [address] [place] [address] Aug, [facility] [place] [address] [id number] [address] [place] [address] Aug, Kidney transplant status Z94 .0 ; Personal history of immunosupression therapy Z92.25 ; Recurrent urinary tract infection N39.0 and Screening Z13.9 [facility] [place] [address] [id number] [address] [place] [address] Aug, [facility] [place] [address] [id number] [address] [place] [address] Aug, Encounter for aftercare foll owing kidney transplant Z48.22 ; Chronic radicular pain of lower back M54.16 and PND (post-nasal drip) R09.82 [facility] [place] [address] [id number] [address] [place] [address] Jul, [facility] [place] [address] [id number] [address] [place] [address] Jul, [facility] [place] [address] [id number] [address] [place] [address] Jul, [facility] [place] [address] [id number] [address] [place] [address] Jul, Kidney replaced by transplan t V42.0 ; Depressive disorder, not elsewhere classified 311 ; Anxiety state, unspecified 300.00 ; Insomnia, unspecified 780.52 ; Irritable bowel syndrome 564.1 ; Chronic lumbar pain 724.2 and GERD (gastroesophageal reflux disease) 530.81 [facility] [place] [address] [id number] [address] [place] [address] Jul, [facility] [place] [address] [id number] [address] [place] [id number] Jun, [facility] [place] [address] [id number] [address] [place] [phone] Jun, [facility] [place] [address] [facility] [id number] [address] [place] [address] Jun, [facility] [place] [address] [facility] [id number] [address] [place] [address] Jun, Kidney replaced by transplan t V42.0 [facility] [place] [address] [facility] [id number] [address] [place] [id number] May, [facility] [place] [address] [facility] [id number] [address] [place] [phone] May, Depression with anxiety 300. 4 and Skin infection 686.9 [facility] [place] [address] [facility] [id number] [address] [place] [address] May, [facility] [place] [address] [id number] [address] [place] [address] May, Kidney replaced by transplan t V42.0 ; Recurrent UTI (urinary tract infection) 599.0 and Absence of menstruation 626.0 [facility] [place] [address] [facility] [id number] [address] [place] [address] May, [facility] [place] [address] [facility] [id number] [address] [place] [address] May, Depression with anxiety 300. 4 [place] [address] [place] [id number] [address] [place] [id number] May, [facility] [place] [address] [place] [id number] [address] [place] [address] Apr, [facility] [place] [address] [place] [id number] [address] [place] [address] Apr, [facility] [place] [address] [place] [id number] [address] [place] [address] Apr, Depression, major, recurrent , mild 296.31 [facility] [place] [address] [place] [id number] [address] [place] [address] Apr, Depression, major, recurrent , mild 296.31 [place] [address] [place] [id number] [address] [place] [address] Apr, Cervicalgia 723.1 ; Lumbago 724.2 ; Anxiety state, unspecified 300.00 ; Nausea 787.02 ; 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 ; Recurrent UTI (urinary tract infection) 599.0 and Knee pain, bilateral 719.46 [place] [address] [place] [id number] [address] [place] [address] March, Depression, major, recurrent , mild 296.31 [facility] [place] [address] [place] [id number] [address] [place] [phone] March, [facility] [place] [address] [place] [id number] [address] [place] [address] March, [facility] [place] [address] [place] [id number] [address] [place] [address] March, Lumbago 724.2 ; Insomnia, un specified 780.52 ; Depressive disorder, not elsewhere classified 311 ; 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 ; Anxiety 300.00 ; Allergic rhinitis 477.9 and GERD (gastroesophageal reflux disease) 530.81 [facility] [place] [address] [place] [id number] [address] [place] [address] Feb, [facility] [place] [address] [id number] [address] [place] [address], [place] [address] Feb, [facility] [address] [id number] [address] [place] [address], [place] [address] Jan, [facility] [address] [id number] [address] [place] [address], [place] [address] Jan, [facility] [address] [id number] [address] [place] [address], [place] [address] Jan, [facility] [address] [id number] [address] [place] [address], [place] [address] Jan, [facility] [address] [id number] [address] [place] [address], [place] [address] Dec, [facility] [address] [id number] [address] [place] [address], [place] [address] Dec, [facility] [address] [id number] [address] [place] [address], [place] [address] Dec, [facility] [address] [id number] [address] [place] [address], [place] [address] Dec, [facility] [address] [id number] [address] [place] [address], [place] [address] Dec, [facility] [address] [id number] [address] [place] [address], [place] [address] Dec, [facility] [address] [id number] [address] [place] [address], [place] [address] Dec, [facility] [address] [id number] [address] [place] [address], [place] [address] Nov, [facility] [address] [id number] [address] [place] [address], [place] [address] Nov, [facility] [address] [id number] [address] [place] [address], [place] [address] Nov, [facility] [address] [id number] [address] [place] [address] [address] Nov, [facility] [address] [id number] [address] [place] [address], [place] [address] Nov, [facility] [address] [id number] [address] [place] [address], [place] [address] Nov, [facility] [address] [id number] [address] [place] [address], [place] [address] Nov, [facility] [address] [id number] [address] [place] [address], [place] [address] Nov, [facility] [address] [id number] [address] [place] [address], [place] [address] Nov, [facility] [address] [id number] [address] [place] [address], [place] [address] Nov, [facility] [address] [id number] [address] [place] [address], [place] [address] Nov, [facility] [address] [id number] [address] [place] [address], [place] [address] Nov, [facility] [address] [id number] [address] [place] [address], [place] [address] Nov, [facility] [address] [id number] [address] [place] [address], [place] [address] Nov, [facility] [address] [id number] [address] [place] [address], [place] [address] Nov, [facility] [address] [id number] [address] [place] [address], [place] [address] Nov, [facility] [address] [id number] [address] [place] [address], [place] [address] Nov, [facility] [address] [id number] [address] [place] [address], [place] [address] Nov, [facility] [address] [id number] [address] [place] [address], [place] [address] Nov, [facility] [address] [id number] [address] [place] [address], [place] [address] Nov, [facility] [address] [id number] [address] [place] [address], [place] [address] Nov, [facility] [address] [id number] [address] [place] [address], [place] [address] Nov, [facility] [address] [id number] [address] [place] [address], [place] [address] Nov, [facility] [address] [id number] [address] [place] [address], [place] [address] Nov, [facility] [address] [id number] [address] [place] [address], [place] [address] Nov, [facility] [address] [id number] [address] [place] [address], [place] [address] Nov, [facility] [address] [id number] [address] [place] [address], [place] [address] Nov, [facility] [address] [id number] [address] [place] [address], [place] [address] Nov, [facility] [address] [id number] [address] [place] [address], [place] [address] Nov, [facility] [address] [id number] [address] [place] [address], [place] [address] Oct, [facility] [address] [id number] [address] [place] [address], [place] [address] Oct, [facility] [address] [id number] [address] [place] [address], [place] [address] Oct, [facility] [address] [id number] [address] [place] [address], [place] [address] Oct, [facility] [address] [id number] [address] [place] [address], [place] [address] Oct, [facility] [address] [id number] [address] [place] [address], [place] [address] Oct, [facility] [address] [id number] [address] [place] [address], [place] [address] Oct, [facility] [address] [id number] [address] [place] [address], [place] [address] Oct, [facility] [address] [id number] [address] [place] [address], [place] [address] Oct, [facility] [address] [id number] [address] [place] [address], [place] [address] Oct, [facility] [address] [id number] [address] [place] [address], [place] [address] Oct, [facility] [address] [id number] [address] [place] [address], [place] [address] Oct, [facility] [address] [id number] [address] [place] [address], [place] [address] Oct, [facility] [address] [id number] [address] [place] [address], [place] [address] Oct, [facility] [address] [id number] [address] [place] [address], [place] [address] Oct, [facility] [address] [id number] [address] [place] [address], [place] [address] Oct, [facility] [address] [id number] [address] [place] [address], [place] [address] Oct, [facility] [address] [id number] [address] [place] [address], [place] [address] Oct, [facility] [address] [id number] [address] [place] [address], [place] [address] Oct, [facility] [address] [id number] [address] [place] [address], [place] [address] 05 Oct, 2014 [facility] [address] [id number] [address] [place] [address], [place] [address] 05 Oct, 2014 [facility] [address] [id number] [address] [place] [address], [place] [address] Oct, [facility] [address] [id number] [address] [place] [address], [place] [address] Oct, [facility] [address] [id number] [address] [place] [address], [place] [address] Sep, [facility] [address] [id number] [address] [place] [address], [place] [address] Sep, [facility] [address] [id number] [address] [place] [address], [place] [address] Sep, [facility] [address] [id number] [address] [place] [address], [place] [address] Sep, [facility] [address] [id number] [address] [place] [address], [place] [address] Sep, [facility] [address] [id number] [address] [place] [address], [place] [address] Sep, [facility] [address] [id number] [address] [place] [address], [place] [address] Sep, [facility] [address] [id number] [address] [place] [address], [place] [address] Sep, [facility] [address] [id number] [address] [place] [address], [place] [address] Sep, [facility] [address] [id number] [address] [place] [address], [place] [address] Sep, [facility] [address] [id number] [address] [place] [address], [place] [address] Sep, [facility] [address] [id number] [address] [place] [address], [place] [address] Sep, [facility] [address] [id number] [address] [place] [address], [place] [address] Sep, [facility] [address] [id number] [address] [place] [address], [place] [address] Sep, [facility] [address] [id number] [address] [place] [address], [place] [address] Sep, [facility] [address] [id number] [address] [place] [address], [place] [address] Sep, [facility] [address] [id number] [address] [place] [address], [place] [address] Sep, [facility] [address] [id number] [address] [place] [address], [place] [address] Sep, [facility] [address] [id number] [address] [place] [address], [place] [address] Sep, [facility] [address] [id number] [address] [place] [address], [place] [address] Sep, [facility] [address] [id number] [address] [place] [address], [place] [address] Sep, [facility] [address] [id number] [address] [place] [address], [place] [address] Sep, [facility] [address] [id number] [address] [place] [address], [place] [address] Sep, [facility] [address] [id number] [address] [place] [address], [place] [address] Sep, [facility] [address] [id number] [address] [place] [address], [place] [address] Sep, [facility] [address] [id number] [address] [place] [address], [place] [address] Sep, [facility] [address] [id number] [address] [place] [address], [place] [address] Sep, [facility] [address] [id number] [address] [place] [address], [place] [address] Sep, [facility] [address] [id number] [address] [place] [address], [place] [address] Aug, [facility] [address] [id number] [address] [place] [address], [place] [address] Aug, [facility] [address] [id number] [address] [place] [address], [place] [address] Aug, [facility] [address] [id number] [address] [place] [address], [place] [address] Aug, [facility] [address] [id number] [address] [place] [address], [place] [address] Aug, [facility] [address] [id number] [address] [place] [address], [place] [address] Aug, [facility] [address] [id number] [address] [place] [address], [place] [address] Aug, [facility] [address] [id number] [address] [place] [address], [place] [address] Aug, [facility] [address] [id number] [address] [place] [address], [place] [address] Aug, [facility] [address] [id number] [address] [place] [address], [place] [address] Aug, [facility] [address] [id number] [address] [place] [address], [place] [address] Aug, [facility] [address] [id number] [address] [place] [id number] Aug, [facility] [address] [id number] [address] [place] [id number] Aug, [facility] [address] [id number] [address] [place] [id number] Aug, [facility] [address] [id number] [address] [place] [address], [place] [address] Aug, [facility] [address] [id number] [address] [place] [address], [place] [address] Aug, [facility] [address] [id number] [address] [place] [id number] Aug, [facility] [address] [id number] [address] [place] [id number] 17 Aug, 2013 [facility] [address] [id number] [address] [place] [address], [place] [address] 14 Aug, 2013 [facility] [address] [id number] [address] [place] [id number] 14 Aug, 2013 [facility] [address] [id number] [address] [place] [address], [place] [id number] 09 Aug, 2013 [facility] [address] [id number] [address] [place] [id number] 09 Aug, 2013 [facility] [address] [id number] [address] [place] [address], [place] [address] Aug, 2013 [facility] [address] [id number] [address] [place] [address], [place] [address] Aug, 2013 [facility] [address] [id number] [address] [place] [id number] 08 Aug, 2013 [facility] [address] [id number] [address] [place] [id number] 07 Aug, 2013 [facility] [address] [id number] [address] [place] [id number] Aug, 2013 [facility] [address] [id number] [address] [place] [id number] Aug, 2013 [facility] [address] [id number] [address] [place] [id number] 07 Aug, 2013 [facility] [address] [id number] [address] [place] [id number] 30 Jul, 2013 [facility] [address] [id number] [address] [place] [id number] 30 Jul, 2013 [facility] [address] [id number] [address] [place] [id number] 29 Jul, 2013 [facility] [address] [id number] [address] [place] [id number] 29 Jul, 2013 [facility] [address] [id number] [facility] [place] [address] 19 Jul, 2013 [facility] [address] [id number] [facility] [place] [address] 19 Jul, 2013 [facility] [address] [id number] [facility] [place] [address] 18 Jul, 2013 [facility] [address] [id number] [facility] [place] [address] 18 Jul, 2013 [facility] [address] [id number] [facility] [place] [address] 17 Jul, 2013 [facility] [address] [id number] [address] [place] [address], [place] [address] 17 Jul, 2013 [facility] [address] [id number] [address] [place] [address], [place] [address] 10 Jul, 2013 [facility] [address] [id number] [address] [place] [address], [place] [address] 10 Jul, 2013 [facility] [address] [id number] [address] [place] [address], [place] [address] Jun, [facility] [address] [id number] [address] [place] [address], [place] [address] Jun, [facility] [address] [id number] [place] [address], [place] [address] Jun, [facility] [address] [id number] [address] [place] [address], [place] [id number] Jun, [facility] [address] [id number] [address] [place] [address], [place] [id number] Jun, [facility] [address] [id number] [address] [place] [address], [place] [id number] Jun, [facility] [address] [id number] [address] [place] [address], [place] [address] Jun, [facility] [address] [id number] [address] [place], [place] [address] [address] Jun, [facility], [place] [address] [id number] [address] [place] [id number] Jun, [facility], [place] [address] [id number] [address] [place] [id number] Jun, [facility], [place] [address] [id number] [address] [place] [id number] Jun, [facility], [place] [address] [id number] [address] [place] [id number] Jun, [facility], [place] [address] [id number] [address] [place] [id number] May, [facility], [place] [address] [id number] [address] [place] [id number] May, [facility], [place] [address] [facility] [id number] [address] [place] [id number] May, IMMUNIZATIONS No Known Immunizations SOCIAL HISTORY [...]
--- OUTSIDE RECORDS SUMMARY | 2020-05-03 14:39 | XMS REPORT ---
Author Author Tracee AVILA Organization [facility] Address [address] [place] [address] Care Team Providers Care Pharmacy Affairs Assistant Name Role Phone SARAI AVILA Unavailable PROBLEMS Type Condition ICD9-CM Code MMX74-PN Code Onset Dates Condition S tatus SNOMED Code Problem Primary insomnia F51.01 Active 397 2004 Problem Breast pain N64.4 Active 24418399 Problem History of renal transplant Z94.0 Ac tive 414117971 Problem Violation of controlled substance agreement Z91.14 Active 625119697 Problem Mild intermittent asthma without complication J45. 20 Active 121804412 Problem Screening breast examination Z12.39 A ctive 536522459 Problem Irritable bowel syndrome without diarrhea K58.9 Active 09651915 Problem Irritable bowel syndrome with diarrhea K58.0 Active [id number] ALLERGIES No Information ENCOUNTERS Encounter Location Date Diagnosis [facility] [id number] [place] [address] [id number] March, Dental examination Z01.20 [facility] [address] [id number] [address] [place] [address] [id number] Feb, Caries K02.9 [facility] [address] [id number] [address] [place] [address] [id number] Feb, Caries K02.9 [facility] [address] [id number] [address] [place] [address] [id number] Jan, [facility] [address] [id number] [address] [place] [address] [id number] Jan, Caries K02.9 [facility] [address] [id number] [address] [place] [address] [id number] Dec, [facility] [address] [id number] [address] [place] [address] [id number] 18 Dec, 2018 Dental examination Z01.20 an d Caries K02.9 [place] [address] [id number] 14 Sep, 2016 Dental examination Z01.20 [place] [address] [place] [id number] [address] [place] [id number] 08 Jan, 2016 Nausea R11.0 ; Irritable bow el syndrome without diarrhea K58.9 and History of renal transplant Z94.0 [place] [address] [address] 2015 [place] [address] [address] 11 Dec, 2015 Breast pain N64.4 ; Screenin g breast examination Z12.39 and Mild intermittent asthma without complication J45.20 [place] [address] [id number] 10 Dec, 2015 [place] [address] [id number] 09 Dec, 2015 Kidney transplant status Z94 .0 ; Personal history of immunosupression therapy Z92.25 ; Recurrent UTI N39.0 and Encounter for screening, unspecified Z13.9 [place] [address] [place] [id number] [address] [place] [address] Oct, [place] [address] [place] [id number] [address] [place] [address] Oct, [place] [address] [place] [id number] [address] [place] [address] Oct, [place] [address] [address] Oct, Hiatal hernia K44.9 and Atyp ical chest pain R07.89 [place] [address] [place] [id number] [address] [place] [address] Oct, [place] [address] [id number] [address] [place] [address] Sep, Kidney replaced by transplan t V42.0 and Bilateral low back pain with sciatica, sciatica laterality unspecified M54.40 [facility] [address] [id number] [address] [place] [address] Sep, [facility] [address] [id number] [address] [place] [address] Sep, Kidney replaced by transplan t V42.0 ; Bilateral low back pain with sciatica, sciatica laterality unspecified M54.40 ; Anxiety F41.9 and Primary insomnia F51.01 [facility] [address] [id number] [address] [place] [address] Aug, [facility] [address] [id number] [address] [place] [address] Aug, [facility] [address] [id number] [address] [place] [address] Aug, Kidney transplant status Z94 .0 ; Personal history of immunosupression therapy Z92.25 ; Recurrent urinary tract infection N39.0 and Screening Z13.9 [facility] [address] [id number] [address] [place] [address] Aug, [facility] [address] [id number] [address] [place] [address] Aug, Encounter for aftercare foll owing kidney transplant Z48.22 ; Chronic radicular pain of lower back M54.16 and PND (post-nasal drip) R09.82 [facility] [address] [id number] [address] [place] [address] Jul, [facility] [address] [id number] [address] [place] [address] Jul, [facility] [address] [id number] [address] [place] [address] Jul, [facility] [address] [id number] [address] [place] [address] Jul, Kidney replaced by transplan t V42.0 ; Depressive disorder, not elsewhere classified 311 ; Anxiety state, unspecified 300.00 ; Insomnia, unspecified 780.52 ; Irritable bowel syndrome 564.1 ; Chronic lumbar pain 724.2 and GERD (gastroesophageal reflux disease) 530.81 [facility] [address] [id number] [address] [place] [address] Jul, [facility] [address] [id number] [address] [place] [address] Jun, [facility] [address] [id number] [address] [place] [address] Jun, [facility] [address] [facility] [id number] [address] [place] [address] Jun, [facility] [address] [facility] [id number] [address] [place] [address] Jun, Kidney replaced by transplan t V42.0 [facility] [address] [facility] [id number] [address] [place] [address] May, [facility] [address] [facility] [id number] [address] [place] [address] May, Depression with anxiety 300. 4 and Skin infection 686.9 [facility] [address] [facility] [id number] [address] [place] [address] May, [facility] [address] [id number] [address] [place] [address] May, Kidney replaced by transplan t V42.0 ; Recurrent UTI (urinary tract infection) 599.0 and Absence of menstruation 626.0 [facility] [address] [facility] [id number] [address] [place] [address] May, [facility] [address] [facility] [id number] [address] [place] [address] May, Depression with anxiety 300. 4 [place] [address] [place] [id number] [address] [place] [address] May, [facility] [address] [place] [id number] [address] [place] [address] Apr, [facility] [address] [place] [id number] [address] [place] [address] Apr, [facility] [address] [place] [id number] [address] [place] [address] Apr, Depression, major, recurrent , mild 296.31 [facility] [address] [place] [id number] [address] [place] [address] Apr, Depression, major, recurrent , mild 296.31 [place] [address] [place] [id number] [address] [place] [address] Apr, Cervicalgia 723.1 ; Lumbago 724.2 ; Anxiety state, unspecified 300.00 ; Nausea 787.02 ; 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 ; Recurrent UTI (urinary tract infection) 599.0 and Knee pain, bilateral 719.46 [place] [address] [place] [id number] [address] [place] [address] March, Depression, major, recurrent , mild 296.31 [facility] [address] [place] [id number] [address] [place] [address] March, [facility] [address] [place] [id number] [address] [place] [id number] March, [facility] [address] [place] [id number] [address] [place] [address] March, Lumbago 724.2 ; Insomnia, un specified 780.52 ; Depressive disorder, not elsewhere classified 311 ; 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 ; Anxiety 300.00 ; Allergic rhinitis 477.9 and GERD (gastroesophageal reflux disease) 530.81 [facility] [address] [place] [id number] [address] [place] [address] Feb, [facility] [address] [id number] [address] [place] [address], [place] [address] Feb, [facility] [address] [id number] [address] [place] [address], [place] [address] Jan, [facility] [address] [id number] [address] [place] [address], [place] [address] Jan, [facility] [address] [id number] [address] [place] [address], [place] [address] Jan, [facility] [address] [id number] [address] [place] [address], [place] [address] Jan, [facility] [address] [id number] [address] [place] [address], [place] [address] Dec, [facility] [address] [id number] [address] [place] [address], [place] [address] Dec, [facility] [address] [id number] [address] [place] [address], [place] [address] Dec, [facility] [address] [id number] [address] [place] [address], [place] [address] Dec, [facility] [address] [id number] [address] [place] [address], [place] [address] Dec, [facility] [address] [id number] [address] [place] [address], [place] [address] Dec, [facility] [address] [id number] [address] [place] [address], [place] [address] Dec, [facility] [address] [id number] [address] [place] [address], [place] [address] Nov, [facility] [address] [id number] [address] [place] [address], [place] [address] Nov, [facility] [address] [id number] [address] [place] [address], [place] [address] Nov, [facility] [address] [id number] [address] [place] [address] [address] Nov, [facility] [address] [id number] [address] [place] [address], [place] [address] Nov, [facility] [address] [id number] [address] [place] [address], [place] [address] Nov, [facility] [address] [id number] [address] [place] [address], [place] [address] Nov, [facility] [address] [id number] [address] [place] [address], [place] [address] Nov, [facility] [address] [id number] [address] [place] [address], [place] [address] Nov, [facility] [address] [id number] [address] [place] [address], [place] [address] Nov, [facility] [address] [id number] [address] [place] [address], [place] [address] Nov, [facility] [address] [id number] [address] [place] [address], [place] [address] Nov, [facility] [address] [id number] [address] [place] [address], [place] [address] Nov, [facility] [address] [id number] [address] [place] [address], [place] [address] Nov, [facility] [address] [id number] [address] [place] [address], [place] [address] Nov, [facility] [address] [id number] [address] [place] [address], [place] [address] Nov, [facility] [address] [id number] [address] [place] [address], [place] [address] Nov, [facility] [address] [id number] [address] [place] [address], [place] [address] Nov, [facility] [address] [id number] [address] [place] [address], [place] [address] Nov, [facility] [address] [id number] [address] [place] [address], [place] [address] Nov, [facility] [address] [id number] [address] [place] [address], [place] [address] Nov, [facility] [address] [id number] [address] [place] [address], [place] [address] Nov, [facility] [address] [id number] [address] [place] [address], [place] [address] Nov, [facility] [address] [id number] [address] [place] [address], [place] [address] Nov, [facility] [address] [id number] [address] [place] [address], [place] [address] Nov, [facility] [address] [id number] [address] [place] [address], [place] [address] Nov, [facility] [address] [id number] [address] [place] [address], [place] [address] Nov, [facility] [address] [id number] [address] [place] [address], [place] [address] Nov, [facility] [address] [id number] [address] [place] [address], [place] [address] Nov, [facility] [address] [id number] [address] [place] [address], [place] [address] Oct, [facility] [address] [id number] [address] [place] [address], [place] [address] Oct, [facility] [address] [id number] [address] [place] [address], [place] [address] Oct, [facility] [address] [id number] [address] [place] [address], [place] [address] Oct, [facility] [address] [id number] [address] [place] [address], [place] [address] Oct, [facility] [address] [id number] [address] [place] [address], [place] [address] Oct, [facility] [address] [id number] [address] [place] [address], [place] [address] Oct, [facility] [address] [id number] [address] [place] [address], [place] [address] Oct, [facility] [address] [id number] [address] [place] [address], [place] [address] Oct, [facility] [address] [id number] [address] [place] [address], [place] [address] Oct, [facility] [address] [id number] [address] [place] [address], [place] [address] Oct, [facility] [address] [id number] [address] [place] [address], [place] [address] Oct, [facility] [address] [id number] [address] [place] [address], [place] [address] Oct, [facility] [address] [id number] [address] [place] [address], [place] [address] Oct, [facility] [address] [id number] [address] [place] [address], [place] [address] Oct, [facility] [address] [id number] [address] [place] [address], [place] [address] Oct, [facility] [address] [id number] [address] [place] [address], [place] [address] Oct, [facility] [address] [id number] [address] [place] [address], [place] [address] Oct, [facility] [address] [id number] [address] [place] [address], [place] [address] Oct, [facility] [address] [id number] [address] [place] [address], [place] [address] 05 Oct, 2014 [facility] [address] [id number] [address] [place] [address], [place] [address] 05 Oct, 2014 [facility] [address] [id number] [address] [place] [address], [place] [address] Oct, [facility] [address] [id number] [address] [place] [address], [place] [address] Oct, [facility] [address] [id number] [address] [place] [address], [place] [address] Sep, [facility] [address] [id number] [address] [place] [address], [place] [address] Sep, [facility] [address] [id number] [address] [place] [address], [place] [address] Sep, [facility] [address] [id number] [address] [place] [address], [place] [address] Sep, [facility] [address] [id number] [address] [place] [address], [place] [address] Sep, [facility] [address] [id number] [address] [place] [address], [place] [address] Sep, [facility] [address] [id number] [address] [place] [address], [place] [address] Sep, [facility] [address] [id number] [address] [place] [address], [place] [address] Sep, [facility] [address] [id number] [address] [place] [address], [place] [address] Sep, [facility] [address] [id number] [address] [place] [address], [place] [address] Sep, [facility] [address] [id number] [address] [place] [address], [place] [address] Sep, [facility] [address] [id number] [address] [place] [address], [place] [address] Sep, [facility] [address] [id number] [address] [place] [address], [place] [address] Sep, [facility] [address] [id number] [address] [place] [address], [place] [address] Sep, [facility] [address] [id number] [address] [place] [address], [place] [address] Sep, [facility] [address] [id number] [address] [place] [address], [place] [address] Sep, [facility] [address] [id number] [address] [place] [address], [place] [address] Sep, [facility] [address] [id number] [address] [place] [address], [place] [address] Sep, [facility] [address] [id number] [address] [place] [address], [place] [address] Sep, [facility] [address] [id number] [address] [place] [address], [place] [address] Sep, [facility] [address] [id number] [address] [place] [address], [place] [address] Sep, [facility] [address] [id number] [address] [place] [address], [place] [address] Sep, [facility] [address] [id number] [address] [place] [address], [place] [address] Sep, [facility] [address] [id number] [address] [place] [address], [place] [address] Sep, [facility] [address] [id number] [address] [place] [address], [place] [address] Sep, [facility] [address] [id number] [address] [place] [address], [place] [address] Sep, [facility] [address] [id number] [address] [place] [address], [place] [address] Sep, [facility] [address] [id number] [address] [place] [address], [place] [address] Sep, [facility] [address] [id number] [address] [place] [address], [place] [address] Aug, [facility] [address] [id number] [address] [place] [address], [place] [address] Aug, [facility] [address] [id number] [address] [place] [address], [place] [address] Aug, [facility] [address] [id number] [address] [place] [address], [place] [address] Aug, [facility] [address] [id number] [address] [place] [address], [place] [address] Aug, [facility] [address] [id number] [address] [place] [address], [place] [address] Aug, [facility] [address] [id number] [address] [place] [address], [place] [address] Aug, [facility] [address] [id number] [address] [place] [address], [place] [address] Aug, [facility] [address] [id number] [address] [place] [address], [place] [address] Aug, [facility] [address] [id number] [address] [place] [address], [place] [address] Aug, [facility] [address] [id number] [address] [place] [address], [place] [address] Aug, [facility] [address] [id number] [address] [place] [address] Aug, [facility] [address] [id number] [address] [place] [address] Aug, [facility] [address] [id number] [address] [place] [id number] Aug, [facility] [address] [id number] [address] [place] [address], [place] [address] Aug, [facility] [address] [id number] [address] [place] [address], [place] [address] Aug, [facility] [address] [id number] [address] [place] [address] Aug, [facility] [address] [id number] [address] [place] [id number] 17 Aug, 2013 [facility] [address] [id number] [address] [place] [address], [place] [address] 14 Aug, 2013 [facility] [address] [id number] [address] [place] [id number] 14 Aug, 2013 [facility] [address] [id number] [address] [place] [address], [place] [address] 09 Aug, 2013 [facility] [address] [id number] [address] [place] [id number] 09 Aug, 2013 [facility] [address] [id number] [address] [place] [address], [place] [address] Aug, 2013 [facility] [address] [id number] [address] [place] [address], [place] [address] Aug, 2013 [facility] [address] [id number] [address] [place] [id number] 08 Aug, 2013 [facility] [address] [id number] [address] [place] [id number] 07 Aug, 2013 [facility] [address] [id number] [address] [place] [id number] Aug, 2013 [facility] [address] [id number] [address] [place] [address] Aug, 2013 [facility] [address] [id number] [address] [place] [id number] 07 Aug, 2013 [facility] [address] [id number] [address] [place] [id number] 30 Jul, 2013 [facility] [address] [id number] [address] [place] [id number] 30 Jul, 2013 [facility] [address] [id number] [address] [place] [id number] 29 Jul, 2013 [facility] [address] [id number] [address] [place] [id number] 29 Jul, 2013 [facility] [address] [id number] [address] [place] [address] 19 Jul, 2013 [facility] [address] [id number] [address] [place] [address] 19 Jul, 2013 [facility] [address] [id number] [address] [place] [address] 18 Jul, 2013 [facility] [address] [id number] [address] [place] [address] 18 Jul, 2013 [facility] [address] [id number] [address] [place] [address] 17 Jul, 2013 [facility] [address] [id number] [address] [place] [address], [place] [address] 17 Jul, 2013 [facility] [address] [id number] [address] [place] [address], [place] [address] 10 Jul, 2013 [facility] [address] [id number] [address] [place] [address], [place] [address] 10 Jul, 2013 [facility] [address] [id number] [address] [place] [address], [place] [address] Jun, [facility] [address] [id number] [address] [place] [address], [place] [address] Jun, [facility] [address] [id number] [address] [place] [address], [place] [address] Jun, [facility] [address] [id number] [address] [place] [address], [place] [address] Jun, [facility] [address] [id number] [address] [place] [address], [place] [address] Jun, [facility] [address] [id number] [address] [place] [address], [place] [address] Jun, [facility] [address] [id number] [address] [place] [address], [place] [address] Jun, [facility] [address] [id number] [address] [place], [place] [address] [address] Jun, [facility] [address] [id number] [address] [place] [id number] Jun, [facility] [address] [id number] [address] [place] [id number] Jun, [facility] [address] [id number] [address] [place] [id number] Jun, [facility] [address] [id number] [address] [place] [id number] Jun, [facility] [address] [id number] [address] [place] [id number] May, [facility] [address] [id number] [address] [place] [id number] May, [facility] [address] [facility][NOTE 3] [id number] [address] [place] [id number] May, IMMUNIZATIONS No Known Immunizations SOCIAL HISTORY [...]
--- OUTSIDE RECORDS SUMMARY | 2020-05-03 14:39 | XMS REPORT ---
Author Author Tracee RETANA Organization [facility] Address Unknown Care Team Providers Care Mortgage Coordinator Name Role Phone GAIL RETANA Unavailable PROBLEMS Type Condition ICD9-CM Code [id number] Code Onset Dates Condition S tatus SNOMED Code Problem Primary insomnia F51.01 Active 397 2004 Problem Breast pain N64.4 Active 22329340 Problem History of renal transplant Z94.0 Ac tive 537160524 Problem Violation of controlled substance agreement Z91.14 Active 328563379 Problem Mild intermittent asthma without complication J45. 20 Active 073313111 Problem Screening breast examination Z12.39 A ctive 406214448 Problem Irritable bowel syndrome without diarrhea K58.9 Active 46121042 Problem Irritable bowel syndrome with diarrhea K58.0 Active [id number] ALLERGIES No Information ENCOUNTERS Encounter Location Date Diagnosis [facility] [address] [id number] [address] [place] [address] [id number] March, Dental examination Z01.20 [facility] [address] [id number] [address] [place] [address] [id number] Feb, Caries K02.9 [facility] [address] [id number] [address] [place] [address] [id number] Feb, Caries K02.9 [facility] [address] [id number] [address] [place] [address] [id number] Jan, [facility] [address] [id number] [address] [place] [address] [id number] Jan, Caries K02.9 [facility] [address] [id number] [address] [place] [address] [id number] Dec, [facility] [address] [id number] [address] [place] [address] [id number] Dec, Dental examination Z01.20 an d Caries K02.9 [place] [id number] [address] 14 Sep, 2016 Dental examination Z01.20 [place] [address] [place] [id number] [place] [id number] 08 Jan, 2016 Nausea R11.0 ; Irritable bow el syndrome without diarrhea K58.9 and History of renal transplant Z94.0 [place] [address] [id number] 2015 [place] [address] [address] 11 Dec, 2015 Breast pain N64.4 ; Screenin g breast examination Z12.39 and Mild intermittent asthma without complication J45.20 [place] [address] [id number] 10 Dec, 2015 [place] [address] [address] 09 Dec, 2015 Kidney transplant status Z94 .0 ; Personal history of immunosupression therapy Z92.25 ; Recurrent UTI N39.0 and Encounter for screening, unspecified Z13.9 [place] [address] [address] Oct, [place] [address] [address] Oct, [place] [address] [address] Oct, [place] [address] [address] Oct, Hiatal hernia K44.9 and Atyp ical chest pain R07.89 [place] [address] [address] Oct, [place] [address] [address] Sep, Kidney replaced by transplan t V42.0 and Bilateral low back pain with sciatica, sciatica laterality unspecified M54.40 [facility] [address] [id number] [address] [place] [address] Sep, [facility] [address] [id number] [address] [place] [address] Sep, Kidney replaced by transplan t V42.0 ; Bilateral low back pain with sciatica, sciatica laterality unspecified M54.40 ; Anxiety F41.9 and Primary insomnia F51.01 [facility] [address] [id number] [address] [place] [address] Aug, [facility] [address] [id number] [address] [place] [address] Aug, [facility] [address] [id number] [address] [place] [address] Aug, Kidney transplant status Z94 .0 ; Personal history of immunosupression therapy Z92.25 ; Recurrent urinary tract infection N39.0 and Screening Z13.9 [facility] [address] [id number] [address] [place] [address] Aug, [facility] [address] [id number] [address] [place] [address] Aug, Encounter for aftercare foll owing kidney transplant Z48.22 ; Chronic radicular pain of lower back M54.16 and PND (post-nasal drip) R09.82 [facility] [address] [id number] [address] [place] [address] Jul, [facility] [address] [id number] [address] [place] [address] Jul, [facility] [address] [id number] [address] [place] [address] Jul, [facility] [address] [id number] [address] [place] [address] Jul, Kidney replaced by transplan t V42.0 ; Depressive disorder, not elsewhere classified 311 ; Anxiety state, unspecified 300.00 ; Insomnia, unspecified 780.52 ; Irritable bowel syndrome 564.1 ; Chronic lumbar pain 724.2 and GERD (gastroesophageal reflux disease) 530.81 [facility] [address] [facility] [id number] [address] [place] [address] Jul, [facility] [address] [id number] [address] [place] [address] Jun, [facility] [address] [id number] [address] [place] [address] Jun, [place] [address] [id number] [address] [place] [address] Jun, [place] [address] [facility] [id number] [address] [place] [address] Jun, Kidney replaced by transplan t V42.0 [facility] [address] [id number] [address] [place] [address] May, [facility] [address] [id number] [address] [place] [address] May, Depression with anxiety 300. 4 and Skin infection 686.9 [place] [address] [facility] [id number] [address] [place] [address] May, [facility] [address] [id number] [address] [place] [address] May, Kidney replaced by transplan t V42.0 ; Recurrent UTI (urinary tract infection) 599.0 and Absence of menstruation 626.0 [place] [address] [facility] [id number] [address] [place] [address] May, [facility] [address] [facility] [id number] [address] [place] [address] May, Depression with anxiety 300. 4 [place] [address] [facility] [id number] [address] [place] [address] May, [facility] [address] [place] [id number] [address] [place] [address] Apr, [place] [address] [address] Apr, [place] [address] [address] Apr, Depression, major, recurrent , mild 296.31 [place] [address] [address] Apr, Depression, major, recurrent , mild 296.31 [place] [address] [address] Apr, Cervicalgia 723.1 ; Lumbago 724.2 ; Anxiety state, unspecified 300.00 ; Nausea 787.02 ; 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 ; Recurrent UTI (urinary tract infection) 599.0 and Knee pain, bilateral 719.[address] [address] March, Depression, major, recurrent , mild 296.31 [place] [address] [place] [id number] [address] [place] [address] March, [place] [address] [address] March, [place] [address] [address] March, Lumbago 724.2 ; Insomnia, un specified 780.52 ; Depressive disorder, not elsewhere classified 311 ; 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 ; Anxiety 300.00 ; Allergic rhinitis 477.9 and GERD (gastroesophageal reflux disease) 530.81 [place] [address] [place] [id number] [address] [place] [address] Feb, [place] [address] [address] Feb, [facility] [address] [id number] [address] [place] [address], [place] [address] Jan, [facility] [address] [id number] [address] [place] [address], [place] [address] Jan, [facility] [address] [id number] [address] [place] [address], [place] [address] Jan, [facility] [address] [id number] [address] [place] [address], [place] [address] Jan, [facility] [address] [id number] [address] [place] [address], [place] [address] Dec, [facility] [address] [id number] [address] [place] [address], [place] [address] Dec, [facility] [address] [id number] [address] [place] [address], [place] [address] Dec, [facility] [address] [id number] [address] [place] [address], [place] [address] Dec, [facility] [address] [id number] [address] [place] [address], [place] [address] Dec, [facility] [address] [id number] [address] [place] [address], [place] [address] Dec, [facility] [address] [id number] [address] [place] [address], [place] [address] Dec, [facility] [address] [id number] [address] [place] [address], [place] [address] Nov, [facility] [address] [id number] [address] [place] [address], [place] [address] Nov, [facility] [address] [id number] [address] [place] [address], [place] [address] Nov, [facility] [address] [id number] [address] [place] [address], [place] [address] Nov, [facility] [address] [id number] [address] [place] [address], [place] [address] Nov, [facility] [address] [id number] [address] [place] [address], [place] [address] Nov, [facility] [address] [id number] [address] [place] [address], [place] [address] Nov, [facility] [address] [id number] [address] [place] [address], [place] [address] Nov, [facility] [address] [id number] [address] [place] [address], [place] [address] Nov, [facility] [address] [id number] [address] [place] [address], [place] [address] Nov, [facility] [address] [id number] [address] [place] [address], [place] [address] Nov, [facility] [address] [id number] [address] [place] [address], [place] [address] Nov, [facility] [address] [id number] [address] [place] [address], [place] [address] Nov, [facility] [address] [id number] [address] [place] [address], [place] [address] Nov, [facility] [address] [id number] [address] [place] [address], [place] [address] Nov, [facility] [address] [id number] [address] [place] [address], [place] [address] Nov, [facility] [address] [id number] [address] [place] [address], [place] [address] Nov, [facility] [address] [id number] [address] [place] [address], [place] [address] Nov, [facility] [address] [id number] [address] [place] [address], [place] [address] Nov, [facility] [address] [id number] [address] [place] [address], [place] [address] Nov, [facility] [address] [id number] [address] [place] [address], [place] [address] Nov, [facility] [address] [id number] [address] [place] [address], [place] [address] Nov, [facility] [address] [id number] [address] [place] [address], [place] [address] Nov, [facility] [address] [id number] [address] [place] [address], [place] [address] Nov, [facility] [address] [id number] [address] [place] [address], [place] [address] Nov, [facility] [address] [id number] [address] [place] [address], [place] [address] Nov, [facility] [address] [id number] [address] [place] [address], [place] [address] Nov, [facility] [address] [id number] [address] [place] [address], [place] [address] Nov, [facility] [address] [id number] [address] [place] [address], [place] [address] Nov, [facility] [address] [id number] [address] [place] [address], [place] [address] Oct, [facility] [address] [id number] [address] [place] [address], [place] [address] Oct, [facility] [address] [id number] [address] [place] [address], [place] [address] Oct, [facility] [address] [id number] [address] [place] [address], [place] [address] Oct, [facility] [address] [id number] [address] [place] [address], [place] [address] Oct, [facility] [address] [id number] [address] [place] [address], [place] [address] Oct, [facility] [address] [id number] [address] [place] [address], [place] [address] Oct, [facility] [address] [id number] [address] [place] [address], [place] [address] Oct, [facility] [address] [id number] [address] [place] [address], [place] [address] Oct, [facility] [address] [id number] [address] [place] [address], [place] [address] Oct, [facility] [address] [id number] [address] [place] [address], [place] [address] Oct, [facility] [address] [id number] [address] [place] [address], [place] [address] Oct, [facility] [address] [id number] [address] [place] [address], [place] [address] 17 Oct, 2014 [facility] [address] [id number] [address] [place] [address], [place] [address] 17 Oct, 2014 [facility] [address] [id number] [address] [place] [address], [place] [address] 16 Oct, 2014 [facility] [address] [id number] [address] [place] [address], [place] [address] 16 Oct, 2014 [facility] [address] [id number] [address] [place] [address], [place] [address] 13 Oct, 2014 [facility] [address] [id number] [address] [place] [address], [place] [address] 12 Oct, 2014 [facility] [address] [id number] [address] [place] [address], [place] [address] 12 Oct, 2014 [facility] [address] [id number] [address] [place] [address], [place] [address] 05 Oct, 2014 [facility] [address] [id number] [address] [place] [address], [place] [address] 05 Oct, 2014 [facility] [address] [id number] [address] [place] [address], [place] [address] Oct, [facility] [address] [id number] [address] [place] [address], [place] [address] Oct, [facility] [address] [id number] [address] [place] [address], [place] [address] Sep, [facility] [address] [id number] [address] [place] [address], [place] [address] Sep, [facility] [address] [id number] [address] [place] [address], [place] [address] Sep, [facility] [address] [id number] [address] [place] [address], [place] [address] Sep, [facility] [address] [id number] [address] [place] [address], [place] [address] Sep, [facility] [address] [id number] [address] [place] [address], [place] [address] Sep, [facility] [address] [id number] [address] [place] [address], [place] [address] Sep, [facility] [address] [id number] [address] [place] [address], [place] [address] Sep, [facility] [address] [id number] [address] [place] [address], [place] [address] Sep, [facility] [address] [id number] [address] [place] [address], [place] [address] Sep, [facility] [address] [id number] [address] [place] [address], [place] [address] Sep, [facility] [address] [id number] [address] [place] [address], [place] [address] Sep, [facility] [address] [id number] [address] [place] [address], [place] [address] Sep, [facility] [address] [id number] [address] [place] [address], [place] [address] Sep, [facility] [address] [id number] [address] [place] [address], [place] [address] Sep, [facility] [address] [id number] [address] [place] [address], [place] [address] Sep, [facility] [address] [id number] [address] [place] [address], [place] [address] Sep, [facility] [address] [id number] [address] [place] [address], [place] [address] Sep, [facility] [address] [id number] [address] [place] [address], [place] [address] Sep, [facility] [address] [id number] [address] [place] [address], [place] [address] Sep, [facility] [address] [id number] [address] [place] [address], [place] [address] Sep, [facility] [address] [id number] [address] [place] [address], [place] [address] Sep, [facility] [address] [id number] [address] [place] [address], [place] [address] Sep, [facility] [address] [id number] [address] [place] [address], [place] [address] Sep, [facility] [address] [id number] [address] [place] [address], [place] [address] Sep, [facility] [address] [id number] [address] [place] [address], [place] [address] Sep, [facility] [address] [id number] [address] [place] [address] Sep, [facility] [address] [id number] [address] [place] [address], [place] [address] Sep, [facility] [address] [id number] [address] [place] [address], [place] [address] Aug, [facility] [address] [id number] [address] [place] [address], [place] [address] Aug, [facility] [address] [id number] [address] [place] [address], [place] [address] Aug, 2013 [facility] [address] [id number] [address] [place] [address], [place] [address] Aug, [facility] [address] [id number] [address] [place] [address], [place] [address] Aug, [facility] [address] [id number] [address] [place] [address], [place] [address] Aug, [facility] [address] [id number] [address] [place] [address], [place] [address] Aug, [facility] [address] [id number] [address] [place] [address], [place] [address] Aug, [facility] [address] [id number] [address] [place] [address], [place] [address] Aug, [facility] [address] [id number] [address] [place] [address], [place] [address] Aug, [facility] [address] [id number] [address] [place] [address], [place] [address] Aug, [facility] [address] [id number] [address] [place] [address], [place] [address] Aug, [facility] [address] [id number] [address] [place] [address], [place] [address] Aug, [facility] [address] [id number] [address] [place] [address], [place] [address] Aug, 2013 [facility] [address] [id number] [address] [place] [address], [place] [address] Aug, [facility] [address] [id number] [address] [place] [address], [place] [address] Aug, 2013 [facility] [address] [id number] [address] [place] [address], [place] [address] Aug, 2013 [facility] [address] [id number] [address] [place] [address], [place] [address] Aug, 2013 [facility] [address] [id number] [address] [place] [address], [place] [address] 14 Aug, 2013 [facility] [address] [id number] [address] [place] [address], [place] [address] 14 Aug, 2013 [facility] [address] [id number] [address] [place] [address], [place] [address] Aug, 2013 [facility] [address] [id number] [address] [place] [address], [place] [address] Aug, 2013 [facility] [address] [id number] [address] [place] [address], [place] [address] Aug, 2013 [facility] [address] [id number] [address] [place] [address], [place] [address] Aug, 2013 [facility] [address] [id number] [address] [place] [address], [place] [address] 08 Aug, 2013 [facility] [address] [id number] [address] [place] [address], [place] [address] Aug, 2013 [facility] [address] [id number] [address] [place] [address], [place] [address] Aug, 2013 [facility] [address] [id number] [address] [place] [address] Aug, 2013 [facility] [address] [id number] [address] [place] [address] Aug, 2013 [facility] [address] [id number] [address] [place] [address] 30 Jul, 2013 [facility] [address] [id number] [address] [place] [address] 30 Jul, 2013 [facility] [address] [id number] [address] [place] [address] 29 Jul, 2013 [facility] [address] [id number] [address] [place] [address] 29 Jul, 2013 [facility] [address] [id number] [address] [place] [address] 19 Jul, 2013 [facility] [address] [id number] [address] [place] [address], [place] [address] 19 Jul, 2013 [facility] [address] [id number] [address] [place] [address], [place] [address] 18 Jul, 2013 [facility] [address] [id number] [address] [place] [address], [place] [address] 18 Jul, 2013 [facility] [address] [id number] [address] [place] [address], [place] [address] 17 Jul, 2013 [facility] [address] [id number] [address] [place] [address], [place] [address] 17 Jul, 2013 [facility] [address] [id number] [address] [place] [address], [place] [address] 10 Jul, 2014 [facility] [address] [id number] [address] [place] [address], [place] [address] 10 Jul, 2014 [facility] [address] [id number] [address] [place] [address], [place] [address] Jun, [facility] [address] [id number] [address] [place] [address], [place] [address] Jun, [facility] [address] [id number] [address] [place] [address], [place] [address] Jun, [facility] [address] [id number] [address] [place] [address], [place] [address] Jun, [facility] [address] [id number] [address] [place] [address], [place] [address] Jun, [facility] [address] [id number] [address] [place] [address], [place] [address] Jun, [facility] [address] [id number] [address] [place] [address], [place] [address] Jun, [facility] [address] [id number] [address] [place] [address], [place] [address] Jun, [facility] [address] [id number] [address] [place] [address] Jun, [facility] [address] [id number] [address] [place] [address] Jun, [facility] [address] [id number] [address] [place] [address] Jun, [facility] [address] [facility] [id number] [address] [place] [address] Jun, [facility] [address] [id number] [address] [place] [id number] May, [facility] [address] [facility] [id number] [address] [place] [id number] May, [facility] [address] [facility] [id number] [address] [place] [id number] May, IMMUNIZATIONS No Known Immunizations SOCIAL HISTORY [...]
--- OUTSIDE RECORDS SUMMARY | 2020-05-03 14:40 | XMS REPORT ---
Author Author Tracee AVILA Organization [facility] Address [address] [place] [address] Care Team Providers Care Micropaleontologist Name Role Phone SARAI AVILA Unavailable PROBLEMS Type Condition ICD9-CM Code BEF37-SC Code Onset Dates Condition S tatus SNOMED Code Problem Primary insomnia F51.01 Active 397 2004 Problem Breast pain N64.4 Active 85069358 Problem History of renal transplant Z94.0 Ac tive 987847739 Problem Violation of controlled substance agreement Z91.14 Active 834707596 Problem Mild intermittent asthma without complication J45. 20 Active 837368841 Problem Screening breast examination Z12.39 A ctive 005069841 Problem Irritable bowel syndrome without diarrhea K58.9 Active 65202612 Problem Irritable bowel syndrome with diarrhea K58.0 Active 483834005 ALLERGIES No Information ENCOUNTERS Encounter Location Date Diagnosis [facility] [id number] [place] [address] [id number] March, Dental examination Z01.20 [facility] [address] [id number] [address] [place] [address] [id number] Feb, Caries K02.9 [facility] [address] [id number] [address] [place] [address] [id number] Feb, Caries K02.9 [facility] [address] [id number] [address] [place] [address] [id number] Jan, [facility] [address] [id number] [address] [place] [address] [id number] Jan, Caries K02.9 [facility] [address] [id number] [address] [place] [address] [id number] Dec, [facility] [address] [id number] [address] [place] [address] [id number] Dec, 2018 Dental examination Z01.20 an d Caries K02.9 [place] [address] [id number] 14 Sep, 2016 Dental examination Z01.20 [place] [address] [address] [place] [id number] [address] [place] [phone] 08 Jan, 2016 Nausea R11.0 ; Irritable bow el syndrome without diarrhea K58.9 and History of renal transplant Z94.0 [place] [address] [id number] 2015 [place] [address] [id number] 11 Dec, 2015 Breast pain N64.4 ; Screenin g breast examination Z12.39 and Mild intermittent asthma without complication J45.20 [place] [address] [address] 10 Dec, 2015 [place] [address] [id number] 09 Dec, 2015 Kidney transplant status Z94 .0 ; Personal history of immunosupression therapy Z92.25 ; Recurrent UTI N39.0 and Encounter for screening, unspecified Z13.9 [place] [address] [address] [place] [id number] [address] [place] [phone] Oct, [place] [address] [place] [id number] [address] [place] [address] Oct, [place] [address] [place] [id number] [address] [place] [phone] Oct, [place] [address] [id number] Oct, Hiatal hernia K44.9 and Atyp ical chest pain R07.89 [place] [address] [place] [id number] [address] [place] [address] Oct, [place] [address] [id number] [address] [place] [address] Sep, Kidney replaced by transplan t V42.0 and Bilateral low back pain with sciatica, sciatica laterality unspecified M54.40 [facility] [address] [id number] [address] [place] [address] Sep, [facility] [address] [id number] [address] [place] [address] Sep, Kidney replaced by transplan t V42.0 ; Bilateral low back pain with sciatica, sciatica laterality unspecified M54.40 ; Anxiety F41.9 and Primary insomnia F51.01 [facility] [address] [id number] [address] [place] [address] Aug, [facility] [address] [id number] [address] [place] [address] Aug, [facility] [address] [id number] [address] [place] [address] Aug, Kidney transplant status Z94 .0 ; Personal history of immunosupression therapy Z92.25 ; Recurrent urinary tract infection N39.0 and Screening Z13.9 [facility] [address] [id number] [address] [place] [address] Aug, [facility] [address] [id number] [address] [place] [address] Aug, Encounter for aftercare foll owing kidney transplant Z48.22 ; Chronic radicular pain of lower back M54.16 and PND (post-nasal drip) R09.82 [facility] [address] [id number] [address] [place] [address] Jul, [facility] [address] [id number] [address] [place] [address] Jul, [facility] [address] [id number] [address] [place] [phone] Jul, [facility] [address] [id number] [address] [place] [address] Jul, Kidney replaced by transplan t V42.0 ; Depressive disorder, not elsewhere classified 311 ; Anxiety state, unspecified 300.00 ; Insomnia, unspecified 780.52 ; Irritable bowel syndrome 564.1 ; Chronic lumbar pain 724.2 and GERD (gastroesophageal reflux disease) 530.81 [facility] [address] [id number] [address] [place] [address] Jul, [facility] [address] [id number] [address] [place] [address] Jun, [facility] [address] [id number] [address] [place] [address] Jun, [facility] [address] [facility] [id number] [address] [place] [address] Jun, [facility] [address] [facility] [id number] [address] [place] [phone] Jun, Kidney replaced by transplan t V42.0 [facility] [address] [facility] [id number] [address] [place] [address] May, [facility] [address] [facility] [id number] [address] [place] [address] May, Depression with anxiety 300. 4 and Skin infection 686.9 [facility] [address] [facility] [id number] [address] [place] [address] May, [facility] [address] [id number] [address] [place] [address] May, Kidney replaced by transplan t V42.0 ; Recurrent UTI (urinary tract infection) 599.0 and Absence of menstruation 626.0 [facility] [address] [facility] [id number] [address] [place] [address] May, [facility] [address] [facility] [id number] [address] [place] [address] May, Depression with anxiety 300. 4 [place] [address] [place] [id number] [address] [place] [address] May, [facility] [address] [place] [id number] [address] [place] [address] Apr, [facility] [address] [place] [id number] [address] [place] [address] Apr, [facility] [address] [place] [id number] [address] [place] [address] Apr, Depression, major, recurrent , mild 296.31 [facility] [address] [place] [id number] [address] [place] [address] Apr, Depression, major, recurrent , mild 296.31 [place] [address] [place] [id number] [address] [place] [address] Apr, Cervicalgia 723.1 ; Lumbago 724.2 ; Anxiety state, unspecified 300.00 ; Nausea 787.02 ; 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 ; Recurrent UTI (urinary tract infection) 599.0 and Knee pain, bilateral 719.46 [place] [address] [place] [id number] [address] [place] [address] March, Depression, major, recurrent , mild 296.31 [facility] [address] [place] [id number] [address] [place] [address] March, [facility] [address] [place] [id number] [address] [place] [address] March, [facility] [address] [place] [id number] [address] [place] [address] March, Lumbago 724.2 ; Insomnia, un specified 780.52 ; Depressive disorder, not elsewhere classified 311 ; 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 ; Anxiety 300.00 ; Allergic rhinitis 477.9 and GERD (gastroesophageal reflux disease) 530.81 [facility] [address] [place] [id number] [address] [place] [address] Feb, [facility] [address] [id number] [address] [place] [address], [place] [address] Feb, [facility] [address] [id number] [address] [place] [address], [place] [address] Jan, [facility] [address] [id number] [address] [place] [address], [place] [address] Jan, [facility] [address] [id number] [address] [place] [address], [place] [address] Jan, [facility] [address] [id number] [address] [place] [address], [place] [address] Jan, [facility] [address] [id number] [address] [place] [address], [place] [address] Dec, [facility] [address] [id number] [address] [place] [address], [place] [address] Dec, [facility] [address] [id number] [address] [place] [address], [place] [address] Dec, [facility] [address] [id number] [address] [place] [address], [place] [address] Dec, [facility] [address] [id number] [address] [place] [address], [place] [address] Dec, [facility] [address] [id number] [address] [place] [address], [place] [address] Dec, [facility] [address] [id number] [address] [place] [address], [place] [address] Dec, [facility] [address] [id number] [address] [place] [address], [place] [address] Nov, [facility] [address] [id number] [address] [place] [address], [place] [address] Nov, [facility] [address] [id number] [address] [place] [address], [place] [address] Nov, [facility] [address] [id number] [address] [place] [address] [address] Nov, [facility] [address] [id number] [address] [place] [address], [place] [address] Nov, [facility] [address] [id number] [address] [place] [address], [place] [address] Nov, [facility] [address] [id number] [address] [place] [address], [place] [address] Nov, [facility] [address] [id number] [address] [place] [address], [place] [address] Nov, [facility] [address] [id number] [address] [place] [address], [place] [address] Nov, [facility] [address] [id number] [address] [place] [address], [place] [address] Nov, [facility] [address] [id number] [address] [place] [address], [place] [address] Nov, [facility] [address] [id number] [address] [place] [address], [place] [address] Nov, [facility] [address] [id number] [address] [place] [address], [place] [address] Nov, [facility] [address] [id number] [address] [place] [address], [place] [address] Nov, [facility] [address] [id number] [address] [place] [address], [place] [address] Nov, [facility] [address] [id number] [address] [place] [address], [place] [address] Nov, [facility] [address] [id number] [address] [place] [address], [place] [address] Nov, [facility] [address] [id number] [address] [place] [address], [place] [address] Nov, [facility] [address] [id number] [address] [place] [address], [place] [address] Nov, [facility] [address] [id number] [address] [place] [address], [place] [address] Nov, [facility] [address] [id number] [address] [place] [address], [place] [address] Nov, [facility] [address] [id number] [address] [place] [address], [place] [address] Nov, [facility] [address] [id number] [address] [place] [address], [place] [address] Nov, [facility] [address] [id number] [address] [place] [address], [place] [address] Nov, [facility] [address] [id number] [address] [place] [address], [place] [address] Nov, [facility] [address] [id number] [address] [place] [address], [place] [address] Nov, [facility] [address] [id number] [address] [place] [address], [place] [address] Nov, [facility] [address] [id number] [address] [place] [address], [place] [address] Nov, [facility] [address] [id number] [address] [place] [address], [place] [address] Nov, [facility] [address] [id number] [address] [place] [address], [place] [address] Oct, [facility] [address] [id number] [address] [place] [address], [place] [address] Oct, [facility] [address] [id number] [address] [place] [address], [place] [address] Oct, [facility] [address] [id number] [address] [place] [address], [place] [address] Oct, [facility] [address] [id number] [address] [place] [address], [place] [address] Oct, [facility] [address] [id number] [address] [place] [address], [place] [address] Oct, [facility] [address] [id number] [address] [place] [address], [place] [address] Oct, [facility] [address] [id number] [address] [place] [address], [place] [address] Oct, [facility] [address] [id number] [address] [place] [address], [place] [address] Oct, [facility] [address] [id number] [address] [place] [address], [place] [address] Oct, [facility] [address] [id number] [address] [place] [address], [place] [address] Oct, [facility] [address] [id number] [address] [place] [address], [place] [address] Oct, [facility] [address] [id number] [address] [place] [address], [place] [address] Oct, [facility] [address] [id number] [address] [place] [address], [place] [address] Oct, [facility] [address] [id number] [address] [place] [address], [place] [address] Oct, [facility] [address] [id number] [address] [place] [address], [place] [address] Oct, [facility] [address] [id number] [address] [place] [address], [place] [address] Oct, [facility] [address] [id number] [address] [place] [address], [place] [address] Oct, [facility] [address] [id number] [address] [place] [address], [place] [address] Oct, [facility] [address] [id number] [address] [place] [address], [place] [address] 05 Oct, 2014 [facility] [address] [id number] [address] [place] [address], [place] [address] 05 Oct, 2014 [facility] [address] [id number] [address] [place] [address], [place] [address] Oct, [facility] [address] [id number] [address] [place] [address], [place] [address] Oct, [facility] [address] [id number] [address] [place] [address], [place] [address] Sep, [facility] [address] [id number] [address] [place] [address], [place] [address] Sep, [facility] [address] [id number] [address] [place] [address], [place] [address] Sep, [facility] [address] [id number] [address] [place] [address], [place] [address] Sep, [facility] [address] [id number] [address] [place] [address], [place] [address] Sep, [facility] [address] [id number] [address] [place] [address], [place] [address] Sep, [facility] [address] [id number] [address] [place] [address], [place] [address] Sep, [facility] [address] [id number] [address] [place] [address], [place] [address] Sep, [facility] [address] [id number] [address] [place] [address], [place] [address] Sep, [facility] [address] [id number] [address] [place] [address], [place] [address] Sep, [facility] [address] [id number] [address] [place] [address], [place] [address] Sep, [facility] [address] [id number] [address] [place] [address], [place] [address] Sep, [facility] [address] [id number] [address] [place] [address], [place] [address] Sep, [facility] [address] [id number] [address] [place] [address], [place] [address] Sep, [facility] [address] [id number] [address] [place] [address], [place] [address] Sep, [facility] [address] [id number] [address] [place] [address], [place] [address] Sep, [facility] [address] [id number] [address] [place] [address], [place] [address] Sep, [facility] [address] [id number] [address] [place] [address], [place] [address] Sep, [facility] [address] [id number] [address] [place] [address], [place] [address] Sep, [facility] [address] [id number] [address] [place] [address], [place] [address] Sep, [facility] [address] [id number] [address] [place] [address], [place] [address] Sep, [facility] [address] [id number] [address] [place] [address], [place] [address] Sep, [facility] [address] [id number] [address] [place] [address], [place] [address] Sep, [facility] [address] [id number] [address] [place] [address], [place] [address] Sep, [facility] [address] [id number] [address] [place] [address], [place] [address] Sep, [facility] [address] [id number] [address] [place] [address], [place] [address] Sep, [facility] [address] [id number] [address] [place] [address], [place] [address] Sep, [facility] [address] [id number] [address] [place] [address], [place] [address] Sep, [facility] [address] [id number] [address] [place] [address], [place] [address] Aug, [facility] [address] [id number] [address] [place] [address], [place] [address] Aug, [facility] [address] [id number] [address] [place] [address], [place] [address] Aug, [facility] [address] [id number] [address] [place] [address], [place] [address] Aug, [facility] [address] [id number] [address] [place] [address], [place] [address] Aug, [facility] [address] [id number] [address] [place] [address], [place] [address] Aug, [facility] [address] [id number] [address] [place] [address], [place] [address] Aug, [facility] [address] [id number] [address] [place] [address], [place] [address] Aug, [facility] [address] [id number] [address] [place] [address], [place] [address] Aug, [facility] [address] [id number] [address] [place] [address], [place] [address] Aug, [facility] [address] [id number] [address] [place] [address], [place] [address] Aug, [facility] [address] [id number] [address] [place] [address] Aug, [facility] [address] [id number] [address] [place] [address] Aug, [facility] [address] [id number] [address] [place] [address] Aug, [facility] [address] [id number] [address] [place] [address], [place] [address] Aug, [facility] [address] [id number] [address] [place] [address], [place] [address] Aug, [facility] [address] [id number] [address] [place] [address] Aug, [facility] [address] [id number] [address] [place] [id number] 17 Aug, 2013 [facility] [address] [id number] [address] [place] [address], [place] [address] 14 Aug, 2013 [facility] [address] [id number] [address] [place] [id number] 14 Aug, 2013 [facility] [address] [id number] [address] [place] [address], [place] [address] 09 Aug, 2013 [facility] [address] [id number] [address] [place] [id number] 09 Aug, 2013 [facility] [address] [id number] [address] [place] [address], [place] [address] Aug, 2013 [facility] [address] [id number] [address] [place] [address], [place] [address] Aug, 2013 [facility] [address] [id number] [address] [place] [id number] 08 Aug, 2013 [facility] [address] [id number] [address] [place] [id number] 07 Aug, 2013 [facility] [address] [id number] [address] [place] [address] Aug, 2013 [facility] [address] [id number] [address] [place] [address] Aug, 2013 [facility] [address] [id number] [address] [place] [id number] 07 Aug, 2013 [facility] [address] [id number] [address] [place] [id number] 30 Jul, 2013 [facility] [address] [id number] [address] [place] [id number] 30 Jul, 2013 [facility] [address] [id number] [address] [place] [id number] 29 Jul, 2013 [facility] [address] [id number] [address] [place] [id number] 29 Jul, 2013 [facility] [address] [id number] [facility] [place] [address] 19 Jul, 2013 [facility] [address] [id number] [facility] [place] [address] 19 Jul, 2013 [facility] [address] [id number] [facility] [place] [address] 18 Jul, 2013 [facility] [address] [id number] [facility] [place] [address] 18 Jul, 2013 [facility] [address] [id number] [facility] [place] [address] 17 Jul, 2013 [facility] [address] [id number] [address] [place] [address], [place] [address] 17 Jul, 2013 [facility] [address] [id number] [address] [place] [address], [place] [address] 10 Jul, 2013 [facility] [address] [id number] [address] [place] [address], [place] [address] 10 Jul, 2013 [facility] [address] [id number] [address] [place] [address], [place] [address] Jun, [facility] [address] [id number] [address] [place] [address], [place] [address] Jun, [facility] [address] [id number] [address] [place] [address], [place] [address] Jun, [facility] [address] [id number] [address] [place] [address], [place] [address] Jun, [facility] [address] [id number] [address] [place] [address], [place] [address] Jun, [facility] [address] [id number] [address] [place] [address], [place] [address] Jun, [facility] [address] [id number] [address] [place] [address], [place] [address] Jun, [facility] [address] [id number] [address] [place], [place] [address] [id number] Jun, [facility] [address] [id number] [address] [place] [phone] Jun, [facility] [address] [id number] [address] [place] [id number] Jun, [facility] [address] [id number] [address] [place] [phone] Jun, [facility] [address] [id number] [address] [place] [phone] Jun, [facility] [address] [id number] [address] [place] [phone] May, [facility] [address] [id number] [address] [place] [phone] May, [facility] [address] [id number] [address] [place] [phone] May, IMMUNIZATIONS No Known Immunizations SOCIAL HISTORY Never Assessed REASON FOR VISIT PLAN OF CARE VITAL SIGNS MEDICATIONS Unknown Medications RESULTS No Results PROCEDURES Procedure Date Ordered Result Body Site URINE CULTURE/COLONY COUNT Dec 03, 2014 BL SMEAR W/DIFF WBC COUNT Dec 03, 2014 RENAL FUNCTION PANEL Dec 03, 2014 MANUAL CELL COUNT, EACH Dec 03, 2014 URINALYSIS, AUTO, W/O SCOPE Dec 03, 2014 VENIPUNCT, ROUTINE* Dec 03, 2014 INSTRUCTIONS MEDICATIONS ADMINISTERED No Known [...]
--- OUTSIDE RECORDS SUMMARY | 2020-05-03 14:40 | XMS REPORT ---
Author Author Tracee AVILA Organization [facility] Address [address] [place] [address] Care Team Providers Care Hospital Superintendent Name Role Phone SARAI AVILA Unavailable PROBLEMS Type Condition ICD9-CM Code [id number] Code Onset Dates Condition S tatus SNOMED Code Problem Primary insomnia F51.01 Active 397 2004 Problem Breast pain N64.4 Active 93843691 Problem History of renal transplant Z94.0 Ac tive 563113975 Problem Violation of controlled substance agreement Z91.14 Active 751310680 Problem Mild intermittent asthma without complication J45. 20 Active 582182831 Problem Screening breast examination Z12.39 A ctive 222257787 Problem Irritable bowel syndrome without diarrhea K58.9 Active 13775675 Problem Irritable bowel syndrome with diarrhea K58.0 Active 142882534 ALLERGIES No Information ENCOUNTERS Encounter Location Date Diagnosis [facility] [address] [id number] [place] [address] [id number] March, Dental examination Z01.20 [facility] [address] [id number] [address] [place] [address] [id number] Feb, Caries K02.9 [facility] [address] [id number] [address] [place] [address] [id number] Feb, Caries K02.9 [facility] [address] [id number] [address] [place] [address] [id number] Jan, [facility] [address] [id number] [address] [place] [address] [id number] Jan, Caries K02.9 [facility] [address] [id number] [address] [place] [address] [id number] Dec, [facility] [address] [id number] [address] [place] [address] [id number] 18 Dec, 2018 Dental examination Z01.20 an d Caries K02.9 [place] [address] [address] 14 Sep, 2016 Dental examination Z01.20 [place] [address] [place] [id number] [address] [place] [id number] 08 Jan, 2016 Nausea R11.0 ; Irritable bow el syndrome without diarrhea K58.9 and History of renal transplant Z94.0 [place] [address] [id number] 2015 [place] [address] [address] 11 Dec, 2015 Breast pain N64.4 ; Screenin g breast examination Z12.39 and Mild intermittent asthma without complication J45.20 [place] [address] [id number] 10 Dec, 2015 [place] [address] [address] 09 Dec, 2015 Kidney transplant status Z94 .0 ; Personal history of immunosupression therapy Z92.25 ; Recurrent UTI N39.0 and Encounter for screening, unspecified Z13.9 [place] [address] [place] [id number] [address] [place] [phone] Oct, [place] [address] [place] [id number] [address] [place] [address] Oct, [place] [address] [place] [id number] [address] [place] [address] Oct, [place] [address] [address] Oct, Hiatal hernia K44.9 and Atyp ical chest pain R07.89 [place] [address] [place] [id number] [address] [place] [address] Oct, [place] [address] [id number] [address] [place] [address] Sep, Kidney replaced by transplan t V42.0 and Bilateral low back pain with sciatica, sciatica laterality unspecified M54.40 [facility] [address] [id number] [address] [place] [address] Sep, [facility] [address] [id number] [address] [place] [address] Sep, Kidney replaced by transplan t V42.0 ; Bilateral low back pain with sciatica, sciatica laterality unspecified M54.40 ; Anxiety F41.9 and Primary insomnia F51.01 [facility] [address] [id number] [address] [place] [address] Aug, [facility] [address] [id number] [address] [place] [address] Aug, [facility] [address] [id number] [address] [place] [address] Aug, Kidney transplant status Z94 .0 ; Personal history of immunosupression therapy Z92.25 ; Recurrent urinary tract infection N39.0 and Screening Z13.9 [facility] [address] [id number] [address] [place] [address] Aug, [facility] [address] [id number] [address] [place] [address] Aug, Encounter for aftercare foll owing kidney transplant Z48.22 ; Chronic radicular pain of lower back M54.16 and PND (post-nasal drip) R09.82 [facility] [address] [id number] [address] [place] [address] Jul, [facility] [address] [id number] [address] [place] [id number] Jul, [facility] [address] [id number] [address] [place] [address] Jul, [facility] [address] [id number] [address] [place] [address] Jul, Kidney replaced by transplan t V42.0 ; Depressive disorder, not elsewhere classified 311 ; Anxiety state, unspecified 300.00 ; Insomnia, unspecified 780.52 ; Irritable bowel syndrome 564.1 ; Chronic lumbar pain 724.2 and GERD (gastroesophageal reflux disease) 530.81 [facility] [address] [id number] [address] [place] [address] Jul, [facility] [address] [id number] [address] [place] [address] Jun, [facility] [address] [id number] [address] [place] [address] Jun, [facility] [address] [facility] [id number] [address] [place] [address] Jun, [facility] [address] [facility] [id number] [address] [place] [address] Jun, Kidney replaced by transplan t V42.0 [facility] [address] [facility] [id number] [address] [place] [address] May, [facility] [address] [facility] [id number] [address] [place] [phone] May, Depression with anxiety 300. 4 and Skin infection 686.9 [facility] [address] [facility] [id number] [address] [place] [address] May, [facility] [address] [id number] [address] [place] [address] May, Kidney replaced by transplan t V42.0 ; Recurrent UTI (urinary tract infection) 599.0 and Absence of menstruation 626.0 [facility] [address] [facility] [id number] [address] [place] [address] May, [facility] [address] [facility] [id number] [address] [place] [address] May, Depression with anxiety 300. 4 [place] [address] [place] [id number] [address] [place] [id number] May, [facility] [address] [place] [id number] [address] [place] [address] Apr, [facility] [address] [place] [id number] [address] [place] [address] Apr, [facility] [address] [place] [id number] [address] [place] [address] Apr, Depression, major, recurrent , mild 296.31 [facility] [address] [place] [id number] [address] [place] [address] Apr, Depression, major, recurrent , mild 296.31 [place] [address] [place] [id number] [address] [place] [address] Apr, Cervicalgia 723.1 ; Lumbago 724.2 ; Anxiety state, unspecified 300.00 ; Nausea 787.02 ; 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 ; Recurrent UTI (urinary tract infection) 599.0 and Knee pain, bilateral 719.46 [place] [address] [place] [id number] [address] [place] [address] March, Depression, major, recurrent , mild 296.31 [facility] [address] [place] [id number] [address] [place] [address] March, [facility] [address] [place] [id number] [address] [place] [address] March, [facility] [address] [place] [id number] [address] [place] [address] March, Lumbago 724.2 ; Insomnia, un specified 780.52 ; Depressive disorder, not elsewhere classified 311 ; 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 ; Anxiety 300.00 ; Allergic rhinitis 477.9 and GERD (gastroesophageal reflux disease) 530.81 [facility] [address] [place] [id number] [address] [place] [id number] Feb, [facility] [address] [id number] [address] [place] [address], [place] [address] Feb, [facility] [address] [id number] [address] [place] [address], [place] [address] Jan, [facility] [address] [id number] [address] [place] [address], [place] [address] Jan, [facility] [address] [id number] [address] [place] [address], [place] [address] Jan, [facility] [address] [id number] [address] [place] [address], [place] [address] Jan, [facility] [address] [id number] [address] [place] [address], [place] [address] Dec, [facility] [address] [id number] [address] [place] [address], [place] [address] Dec, [facility] [address] [id number] [address] [place] [address], [place] [address] Dec, [facility] [address] [id number] [address] [place] [address], [place] [address] Dec, [facility] [address] [id number] [address] [place] [address], [place] [address] Dec, [facility] [address] [id number] [address] [place] [address], [place] [address] Dec, [facility] [address] [id number] [address] [place] [address], [place] [address] Dec, [facility] [address] [id number] [address] [place] [address], [place] [address] Nov, [facility] [address] [id number] [address] [place] [address], [place] [address] Nov, [facility] [address] [id number] [address] [place] [address], [place] [address] Nov, [facility] [address] [id number] [address] [place] [address] [address] Nov, [facility] [address] [id number] [address] [place] [address], [place] [address] Nov, [facility] [address] [id number] [address] [place] [address], [place] [address] Nov, [facility] [address] [id number] [address] [place] [address], [place] [address] Nov, [facility] [address] [id number] [address] [place] [address], [place] [address] Nov, [facility] [address] [id number] [address] [place] [address], [place] [address] Nov, [facility] [address] [id number] [address] [place] [address], [place] [address] Nov, [facility] [address] [id number] [address] [place] [address], [place] [address] Nov, [facility] [address] [id number] [address] [place] [address], [place] [address] Nov, [facility] [address] [id number] [address] [place] [address], [place] [address] Nov, [facility] [address] [id number] [address] [place] [address], [place] [address] Nov, [facility] [address] [id number] [address] [place] [address], [place] [address] Nov, [facility] [address] [id number] [address] [place] [address], [place] [address] Nov, [facility] [address] [id number] [address] [place] [address], [place] [address] Nov, [facility] [address] [id number] [address] [place] [address], [place] [address] Nov, [facility] [address] [id number] [address] [place] [address], [place] [address] Nov, [facility] [address] [id number] [address] [place] [address], [place] [address] Nov, [facility] [address] [id number] [address] [place] [address], [place] [address] Nov, [facility] [address] [id number] [address] [place] [address], [place] [address] Nov, [facility] [address] [id number] [address] [place] [address], [place] [address] Nov, [facility] [address] [id number] [address] [place] [address], [place] [address] Nov, [facility] [address] [id number] [address] [place] [address], [place] [address] Nov, [facility] [address] [id number] [address] [place] [address], [place] [address] Nov, [facility] [address] [id number] [address] [place] [address], [place] [address] Nov, [facility] [address] [id number] [address] [place] [address], [place] [address] Nov, [facility] [address] [id number] [address] [place] [address], [place] [address] Nov, [facility] [address] [id number] [address] [place] [address], [place] [address] Oct, [facility] [address] [id number] [address] [place] [address], [place] [address] Oct, [facility] [address] [id number] [address] [place] [address], [place] [address] Oct, [facility] [address] [id number] [address] [place] [address], [place] [address] Oct, [facility] [address] [id number] [address] [place] [address], [place] [address] Oct, [facility] [address] [id number] [address] [place] [address], [place] [address] Oct, [facility] [address] [id number] [address] [place] [address], [place] [address] Oct, [facility] [address] [id number] [address] [place] [address], [place] [address] Oct, [facility] [address] [id number] [address] [place] [address], [place] [address] Oct, [facility] [address] [id number] [address] [place] [address], [place] [address] Oct, [facility] [address] [id number] [address] [place] [address], [place] [address] Oct, [facility] [address] [id number] [address] [place] [address], [place] [address] Oct, [facility] [address] [id number] [address] [place] [address], [place] [address] Oct, [facility] [address] [id number] [address] [place] [address], [place] [address] Oct, [facility] [address] [id number] [address] [place] [address], [place] [address] Oct, [facility] [address] [id number] [address] [place] [address], [place] [address] Oct, [facility] [address] [id number] [address] [place] [address], [place] [address] Oct, [facility] [address] [id number] [address] [place] [address], [place] [address] Oct, [facility] [address] [id number] [address] [place] [address], [place] [address] Oct, [facility] [address] [id number] [address] [place] [address], [place] [address] 05 Oct, 2014 [facility] [address] [id number] [address] [place] [address], [place] [address] 05 Oct, 2014 [facility] [address] [id number] [address] [place] [address], [place] [address] Oct, [facility] [address] [id number] [address] [place] [address], [place] [address] Oct, [facility] [address] [id number] [address] [place] [address], [place] [address] Sep, [facility] [address] [id number] [address] [place] [address], [place] [address] Sep, [facility] [address] [id number] [address] [place] [address], [place] [address] Sep, [facility] [address] [id number] [address] [place] [address], [place] [address] Sep, [facility] [address] [id number] [address] [place] [address], [place] [address] Sep, [facility] [address] [id number] [address] [place] [address], [place] [address] Sep, [facility] [address] [id number] [address] [place] [address], [place] [address] Sep, [facility] [address] [id number] [address] [place] [address], [place] [address] Sep, [facility] [address] [id number] [address] [place] [address], [place] [address] Sep, [facility] [address] [id number] [address] [place] [address], [place] [address] Sep, [facility] [address] [id number] [address] [place] [address], [place] [address] Sep, [facility] [address] [id number] [address] [place] [address], [place] [address] Sep, [facility] [address] [id number] [address] [place] [address], [place] [address] Sep, [facility] [address] [id number] [address] [place] [address], [place] [address] Sep, [facility] [address] [id number] [address] [place] [address], [place] [address] Sep, [facility] [address] [id number] [address] [place] [address], [place] [address] Sep, [facility] [address] [id number] [address] [place] [address], [place] [address] Sep, [facility] [address] [id number] [address] [place] [address], [place] [address] Sep, [facility] [address] [id number] [address] [place] [address], [place] [address] Sep, [facility] [address] [id number] [address] [place] [address], [place] [address] Sep, [facility] [address] [id number] [address] [place] [address], [place] [address] Sep, [facility] [address] [id number] [address] [place] [address], [place] [address] Sep, [facility] [address] [id number] [address] [place] [address], [place] [address] Sep, [facility] [address] [id number] [address] [place] [address], [place] [address] Sep, [facility] [address] [id number] [address] [place] [address], [place] [address] Sep, [facility] [address] [id number] [address] [place] [address], [place] [address] Sep, [facility] [address] [id number] [address] [place] [address], [place] [address] Sep, [facility] [address] [id number] [address] [place] [address], [place] [address] Sep, [facility] [address] [id number] [address] [place] [address], [place] [address] Aug, [facility] [address] [id number] [address] [place] [address], [place] [address] Aug, [facility] [address] [id number] [address] [place] [address], [place] [address] Aug, [facility] [address] [id number] [address] [place] [address], [place] [address] Aug, [facility] [address] [id number] [address] [place] [address], [place] [address] Aug, [facility] [address] [id number] [address] [place] [address], [place] [address] Aug, [facility] [address] [id number] [address] [place] [address], [place] [address] Aug, [facility] [address] [id number] [address] [place] [address], [place] [address] Aug, [facility] [address] [id number] [address] [place] [address], [place] [address] Aug, [facility] [address] [id number] [address] [place] [address], [place] [address] Aug, [facility] [address] [id number] [address] [place] [address], [place] [address] Aug, [facility] [address] [id number] [address] [place] [phone] Aug, [facility] [address] [id number] [address] [place] [id number] Aug, [facility] [address] [id number] [address] [place] [id number] Aug, [facility] [address] [id number] [address] [place] [address], [place] [address] Aug, [facility] [address] [id number] [address] [place] [address], [place] [address] Aug, [facility] [address] [id number] [address] [place] [id number] Aug, [facility] [address] [id number] [address] [place] [id number] 17 Aug, 2013 [facility] [address] [id number] [address] [place] [address], [place] [address] 14 Aug, 2013 [facility] [address] [id number] [address] [place] [id number] 14 Aug, 2013 [facility] [address] [id number] [address] [place] [address], [place] [address] 09 Aug, 2013 [facility] [address] [id number] [address] [place] [id number] 09 Aug, 2013 [facility] [address] [id number] [address] [place] [address], [place] [address] Aug, 2013 [facility] [address] [id number] [address] [place] [address], [place] [address] Aug, 2013 [facility] [address] [id number] [address] [place] [id number] 08 Aug, 2013 [facility] [address] [id number] [address] [place] [id number] 07 Aug, 2013 [facility] [address] [id number] [address] [place] [id number] Aug, 2013 [facility] [address] [id number] [address] [place] [id number] Aug, 2013 [facility] [address] [id number] [address] [place] [id number] 07 Aug, 2013 [facility] [address] [id number] [address] [place] [id number] 30 Jul, 2013 [facility] [address] [id number] [address] [place] [id number] 30 Jul, 2013 [facility] [address] [id number] [address] [place] [id number] 29 Jul, 2013 [facility] [address] [id number] [address] [place] [id number] 29 Jul, 2013 [facility] [address] [id number] [address] [place] [address] 19 Jul, 2013 [facility] [address] [id number] [address] [place] [address] 19 Jul, 2013 [facility] [address] [id number] [address] [place] [address] 18 Jul, 2013 [facility] [address] [id number] [address] [place] [address] 18 Jul, 2013 [facility] [address] [id number] [address] [place] [address] 17 Jul, 2013 [facility] [address] [id number] [address] [place] [address], [place] [address] 17 Jul, 2013 [facility] [address] [id number] [address] [place] [address], [place] [address] 10 Jul, 2013 [facility] [address] [id number] [address] [place] [address], [place] [address] 10 Jul, 2013 [facility] [address] [id number] [address] [place] [address], [place] [address] Jun, [facility] [address] [id number] [address] [place] [address], [place] [address] Jun, [facility] [address] [id number] [address] [place] [address], [place] [address] Jun, [facility] [address] [id number] [address] [place] [address], [place] [address] Jun, [facility] [address] [id number] [address] [place] [address], [place] [address] Jun, [facility] [address] [id number] [address] [place] [address], [place] [address] Jun, [facility] [address] [id number] [address] [place] [address], [place] [address] Jun, [facility] [address] [id number] [address] [place] [address] [address] Jun, [facility] [address] [id number] [address] [place] [phone] Jun, [facility] [address] [id number] [address] [place] [id number] Jun, [facility] [address] [id number] [address] [place] [id number] Jun, [facility] [address] [id number] [address] [place] [phone] Jun, [facility] [address] [id number] [address] [place] [id number] May, [facility] [address] [id number] [address] [place] [phone] May, [facility] [address] [facility] [id number] [address] [place] [id number] May, IMMUNIZATIONS No Known Immunizations SOCIAL HISTORY [...]
--- OUTSIDE RECORDS SUMMARY | 2020-05-03 14:40 | XMS REPORT ---
Author Author Tracee Horner [facility] Address [address], [place] [id number] Care Team Providers Care Music Journalist Name Role Phone EVERETT Horner ANTON Unavailable PROBLEMS Type Condition ICD9-CM Code [id number] Code Onset Dates Condition S tatus SNOMED Code Problem Primary insomnia F51.01 Active 397 2004 Problem Breast pain N64.4 Active 00544950 Problem History of renal transplant Z94.0 Ac tive 562839611 Problem Violation of controlled substance agreement Z91.14 Active 335892164 Problem Mild intermittent asthma without complication J45. 20 Active 843424075 Problem Screening breast examination Z12.39 A ctive 981966437 Problem Irritable bowel syndrome without diarrhea K58.9 Active 43184082 Problem Irritable bowel syndrome with diarrhea K58.0 Active [id number] ALLERGIES No Information ENCOUNTERS Encounter Location Date Diagnosis [facility] [address] [id number] [address] [place] [address] [id number] March, Dental examination Z01.20 [facility] [address] [id number] [address] [place] [address] [id number] Feb, Caries K02.9 [facility] [address] [id number] [address] [place] [address] [id number] Feb, Caries K02.9 [facility] [address] [id number] [address] [place] [address] [id number] Jan, [facility] [address] [id number] [address] [place] [address] [id number] Jan, Caries K02.9 [facility] [address] [id number] [address] [place] [address] [id number] Dec, [facility] [address] [id number] [address] [place] [address] [id number] 18 Dec, 2018 Dental examination Z01.20 an d Caries K02.9 [place] [address] [address] 14 Sep, 2016 Dental examination Z01.20 [place] [address] [place] [id number] [address] [place] [address] 08 Jan, 2016 Nausea R11.0 ; Irritable bow el syndrome without diarrhea K58.9 and History of renal transplant Z94.0 [place] [address] [id number] 2015 [place] [address] [id number] 11 Dec, 2015 Breast pain N64.4 ; Screenin g breast examination Z12.39 and Mild intermittent asthma without complication J45.20 [place] [address] [id number] 10 Dec, 2015 [place] [address] [id number] 09 Dec, 2015 Kidney transplant status Z94 .0 ; Personal history of immunosupression therapy Z92.25 ; Recurrent UTI N39.0 and Encounter for screening, unspecified Z13.9 [place] [address] [place] [id number] [address] [place] [address] Oct, [place] [address] [place] [id number] [address] [place] [address] Oct, [place] [address] [place] [id number] [address] [place] [address] Oct, [place] [address] [address] Oct, Hiatal hernia K44.9 and Atyp ical chest pain R07.89 [place] [address] [place] [id number] [address] [place] [address] Oct, [place] [address] [id number] [address] [place] [address] Sep, Kidney replaced by transplan t V42.0 and Bilateral low back pain with sciatica, sciatica laterality unspecified M54.40 [facility] [address] [id number] [address] [place] [address] Sep, [facility] [address] [id number] [address] [place] [address] Sep, Kidney replaced by transplan t V42.0 ; Bilateral low back pain with sciatica, sciatica laterality unspecified M54.40 ; Anxiety F41.9 and Primary insomnia F51.01 [facility] [address] [id number] [address] [place] [address] Aug, [facility] [address] [id number] [address] [place] [address] Aug, [facility] [address] [id number] [address] [place] [address] Aug, Kidney transplant status Z94 .0 ; Personal history of immunosupression therapy Z92.25 ; Recurrent urinary tract infection N39.0 and Screening Z13.9 [facility] [address] [id number] [address] [place] [address] Aug, [facility] [address] [id number] [address] [place] [address] Aug, Encounter for aftercare foll owing kidney transplant Z48.22 ; Chronic radicular pain of lower back M54.16 and PND (post-nasal drip) R09.82 [facility] [address] [id number] [address] [place] [address] Jul, [facility] [address] [id number] [address] [place] [address] Jul, [facility] [address] [id number] [address] [place] [address] Jul, [facility] [address] [id number] [address] [place] [address] Jul, Kidney replaced by transplan t V42.0 ; Depressive disorder, not elsewhere classified 311 ; Anxiety state, unspecified 300.00 ; Insomnia, unspecified 780.52 ; Irritable bowel syndrome 564.1 ; Chronic lumbar pain 724.2 and GERD (gastroesophageal reflux disease) 530.81 [facility] [address] [id number] [address] [place] [address] Jul, [facility] [address] [id number] [address] [place] [address] Jun, [facility] [address] [id number] [address] [place] [address] Jun, [facility] [address] [id number] [address] [place] [address] Jun, [place] [address] [facility] [id number] [address] [place] [address] Jun, Kidney replaced by transplan t V42.0 [facility] [address] [id number] [address] [place] [address] May, [facility] [address] [id number] [address] [place] [address] May, Depression with anxiety 300. 4 and Skin infection 686.9 [place] [address] [facility] [id number] [address] [place] [address] May, [facility] [address] [id number] [address] [place] [address] May, Kidney replaced by transplan t V42.0 ; Recurrent UTI (urinary tract infection) 599.0 and Absence of menstruation 626.0 [place] [address] [facility] [id number] [address] [place] [address] May, [place] [address] [facility] [id number] [address] [place] [address] May, Depression with anxiety 300. 4 [place] [address] [place] [id number] [address] [place] [address] May, [facility] [address] [place] [id number] [address] [place] [address] Apr, [facility] [address] [facility] [id number] [address] [place] [address] Apr, [facility] [address] [place] [id number] [address] [place] [address] Apr, Depression, major, recurrent , mild 296.31 [facility] [address] [facility] [id number] [address] [place] [address] Apr, Depression, major, recurrent , mild 296.31 [place] [address] [place] [id number] [address] [place] [address] Apr, Cervicalgia 723.1 ; Lumbago 724.2 ; Anxiety state, unspecified 300.00 ; Nausea 787.02 ; 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 ; Recurrent UTI (urinary tract infection) 599.0 and Knee pain, bilateral 719.46 [place] [address] [place] [id number] [address] [place] [address] March, Depression, major, recurrent , mild 296.31 [facility] [address] [place] [id number] [address] [place] [address] March, [facility] [address] [place] [id number] [address] [place] [address] March, [facility] [address] [place] [id number] [address] [place] [address] March, Lumbago 724.2 ; Insomnia, un specified 780.52 ; Depressive disorder, not elsewhere classified 311 ; 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 ; Anxiety 300.00 ; Allergic rhinitis 477.9 and GERD (gastroesophageal reflux disease) 530.81 [facility] [address] [place] [id number] [address] [place] [address] Feb, [facility] [address] [id number] [address] [place] [address], [place] [address] Feb, [facility] [address] [id number] [address] [place] [address], [place] [address] Jan, [facility] [address] [id number] [address] [place] [address], [place] [address] Jan, [facility] [address] [id number] [address] [place] [address], [place] [address] Jan, [facility] [address] [id number] [address] [place] [address], [place] [address] Jan, [facility] [address] [id number] [address] [place] [address], [place] [address] Dec, [facility] [address] [id number] [address] [place] [address], [place] [address] Dec, [facility] [address] [id number] [address] [place] [address], [place] [address] Dec, [facility] [address] [id number] [address] [place] [address], [place] [address] Dec, [facility] [address] [id number] [address] [place] [address], [place] [address] Dec, [facility] [address] [id number] [address] [place] [address], [place] [address] Dec, [facility] [address] [id number] [address] [place] [address], [place] [address] Dec, [facility] [address] [id number] [address] [place] [address], [place] [address] Nov, [facility] [address] [id number] [address] [place] [address], [place] [address] Nov, [facility] [address] [id number] [address] [place] [address], [place] [address] Nov, [facility] [address] [id number] [address] [place] [address] Nov, [facility] [address] [id number] [address] [place] [address], [place] [address] Nov, [facility] [address] [id number] [address] [place] [address], [place] [address] Nov, [facility] [address] [id number] [address] [place] [address], [place] [address] Nov, [facility] [address] [id number] [address] [place] [address], [place] [address] Nov, [facility] [address] [id number] [address] [place] [address], [place] [address] Nov, [facility] [address] [id number] [address] [place] [address], [place] [address] Nov, [facility] [address] [id number] [address] [place] [address], [place] [address] Nov, [facility] [address] [id number] [address] [place] [address], [place] [address] Nov, [facility] [address] [id number] [address] [place] [address], [place] [address] Nov, [facility] [address] [id number] [address] [place] [address], [place] [address] Nov, [facility] [address] [id number] [address] [place] [address], [place] [address] Nov, [facility] [address] [id number] [address] [place] [address], [place] [address] Nov, [facility] [address] [id number] [address] [place] [address], [place] [address] Nov, [facility] [address] [id number] [address] [place] [address], [place] [address] Nov, [facility] [address] [id number] [address] [place] [address], [place] [address] Nov, [facility] [address] [id number] [address] [place] [address], [place] [address] Nov, [facility] [address] [id number] [address] [place] [address], [place] [address] Nov, [facility] [address] [id number] [address] [place] [address], [place] [address] Nov, [facility] [address] [id number] [address] [place] [address], [place] [address] Nov, [facility] [address] [id number] [address] [place] [address], [place] [address] Nov, [facility] [address] [id number] [address] [place] [address], [place] [address] Nov, [facility] [address] [id number] [address] [place] [address], [place] [address] Nov, [facility] [address] [id number] [address] [place] [address], [place] [address] Nov, [facility] [address] [id number] [address] [place] [address], [place] [address] Nov, [facility] [address] [id number] [address] [place] [address], [place] [address] Nov, [facility] [address] [id number] [address] [place] [address], [place] [address] Oct, [facility] [address] [id number] [address] [place] [address], [place] [address] Oct, [facility] [address] [id number] [address] [place] [address], [place] [address] Oct, [facility] [address] [id number] [address] [place] [address], [place] [address] Oct, [facility] [address] [id number] [address] [place] [address], [place] [address] Oct, [facility] [address] [id number] [address] [place] [address], [place] [address] Oct, [facility] [address] [id number] [address] [place] [address], [place] [address] Oct, [facility] [address] [id number] [address] [place] [address], [place] [address] Oct, [facility] [address] [id number] [address] [place] [address], [place] [address] Oct, [facility] [address] [id number] [address] [place] [address], [place] [address] Oct, [facility] [address] [id number] [address] [place] [address], [place] [address] Oct, [facility] [address] [id number] [address] [place] [address], [place] [address] Oct, [facility] [address] [id number] [address] [place] [address], [place] [address] 17 Oct, 2014 [facility] [address] [id number] [address] [place] [address], [place] [address] 17 Oct, 2014 [facility] [address] [id number] [address] [place] [address], [place] [address] 16 Oct, 2014 [facility] [address] [id number] [address] [place] [address], [place] [address] 16 Oct, 2014 [facility] [address] [id number] [address] [place] [address], [place] [address] 13 Oct, 2014 [facility] [address] [id number] [address] [place] [address], [place] [address] Oct, [facility] [address] [id number] [address] [place] [address], [place] [address] Oct, [facility] [address] [id number] [address] [place] [address], [place] [address] 05 Oct, 2014 [facility] [address] [id number] [address] [place] [address], [place] [address] 05 Oct, 2014 [facility] [address] [id number] [address] [place] [address] Oct, [facility] [address] [id number] [address] [place] [address], [place] [address] Oct, [facility] [address] [id number] [address] [place] [address], [place] [address] Sep, [facility] [address] [id number] [address] [place] [address], [place] [address] Sep, [facility] [address] [id number] [address] [place] [address], [place] [address] Sep, [facility] [address] [id number] [address] [place] [address], [place] [address] Sep, [facility] [address] [id number] [address] [place] [address], [place] [address] Sep, [facility] [address] [id number] [address] [place] [address], [place] [address] Sep, [facility] [address] [id number] [address] [place] [address], [place] [address] Sep, [facility] [address] [id number] [address] [place] [address], [place] [address] Sep, [facility] [address] [id number] [address] [place] [address], [place] [address] Sep, [facility] [address] [id number] [address] [place] [address], [place] [address] Sep, [facility] [address] [id number] [address] [place] [address], [place] [address] Sep, [facility] [address] [id number] [address] [place] [address], [place] [address] Sep, [facility] [address] [id number] [address] [place] [address], [place] [address] Sep, [facility] [address] [id number] [address] [place] [address], [place] [address] Sep, [facility] [address] [id number] [address] [place] [address], [place] [address] Sep, [facility] [address] [id number] [address] [place] [address], [place] [address] Sep, [facility] [address] [id number] [address] [place] [address], [place] [address] Sep, [facility] [address] [id number] [address] [place] [address], [place] [address] Sep, [facility] [address] [id number] [address] [place] [address], [place] [address] Sep, [facility] [address] [id number] [address] [place] [address], [place] [address] Sep, [facility] [address] [id number] [address] [place] [address], [place] [address] Sep, [facility] [address] [id number] [address] [place] [address], [place] [address] Sep, [facility] [address] [id number] [address] [place] [address], [place] [address] Sep, [facility] [address] [id number] [address] [place] [address], [place] [address] Sep, [facility] [address] [id number] [address] [place] [address], [place] [address] Sep, [facility] [address] [id number] [address] [place] [address], [place] [address] Sep, [facility] [address] [id number] [address] [place] [address], [place] [address] Sep, [facility] [address] [id number] [address] [place] [address], [place] [address] Sep, [facility] [address] [id number] [address] [place] [address], [place] [address] Aug, [facility] [address] [id number] [address] [place] [address], [place] [address] Aug, [facility] [address] [id number] [address] [place] [address], [place] [address] Aug, [facility] [address] [id number] [address] [place] [address], [place] [address] Aug, [facility] [address] [id number] [address] [place] [address], [place] [address] Aug, [facility] [address] [id number] [address] [place] [address], [place] [address] Aug, [facility] [address] [id number] [address] [place] [address], [place] [address] Aug, [facility] [address] [id number] [address] [place] [address], [place] [address] Aug, [facility] [address] [id number] [address] [place] [address], [place] [address] Aug, [facility] [address] [id number] [address] [place] [address], [place] [address] Aug, [facility] [address] [id number] [address] [place] [address], [place] [address] Aug, [facility] [address] [id number] [address] [place] [address] Aug, [facility] [address] [id number] [address] [place] [address], [place] [address] Aug, [facility] [address] [id number] [address] [place] [address] Aug, [facility] [address] [id number] [address] [place] [address], [place] [address] Aug, [facility] [address] [id number] [address] [place] [address], [place] [address] Aug, [facility] [address] [id number] [address] [place] [address], [place] [address] 17 Aug, 2014 [facility] [address] [id number] [address] [place] [address], [place] [address] 17 Aug, 2013 [facility] [address] [id number] [address] [place] [address], [place] [address] 14 Aug, 2013 [facility] [address] [id number] [address] [place] [address], [place] [address] 14 Aug, 2013 [facility] [address] [id number] [address] [place] [address], [place] [address] 09 Aug, 2013 [facility] [address] [id number] [address] [place] [address], [place] [address] 09 Aug, 2013 [facility] [address] [id number] [address] [place] [address], [place] [address] 09 Aug, 2013 [facility] [address] [id number] [address] [place] [address], [place] [address] 09 Aug, 2013 [facility] [address] [id number] [address] [place] [address], [place] [address] 08 Aug, 2013 [facility] [address] [id number] [address] [place] [address], [place] [address] 07 Aug, 2013 [facility] [address] [id number] [address] [place] [address], [place] [address] 07 Aug, 2013 [facility] [address] [id number] [address] [place] [address], [place] [address] 07 Aug, 2013 [facility] [address] [id number] [address] [place] [address], [place] [address] 07 Aug, 2013 [facility] [address] [id number] [address] [place] [address] 30 Jul, 2013 [facility] [address] [id number] [address] [place] [address], [place] [address] 30 Sep, 2013 [facility] [address] [id number] [address] [place] [address], [place] [address] 29 Jul, 2013 [facility] [address] [id number] [address] [place] [address], [place] [address] 29 Jul2013 [facility] [address] [id number] [facility] [place] [address] 19 Jul, 2013 [facility] [address] [id number] [facility] [place] [address] 19 Jul, 2013 [facility] [address] [id number] [facility] [place] [address] 18 Jul, 2013 [facility] [address] [id number] [address] [place] [address], [place] [address] 18 Jul, 2013 [facility] [address] [id number] [facility] [place] [address] 17 Jul, 2013 [facility] [address] [id number] [address] [place] [address], [place] [address] 17 Jul, 2013 [facility] [address] [id number] [address] [place] [address], [place] [address] 10 Jul, 2013 [facility] [address] [id number] [address] [place] [address], [place] [address] 10 Jul, 2013 [facility] [address] [id number] [address] [place] [address], [place] [address] Jun, [facility] [address] [id number] [address] [place] [address], [place] [address] Jun, [facility] [address] [id number] [address] [place] [address], [place] [address] Jun, [facility] [address] [id number] [address] [place] [address], [place] [address] Jun, [facility] [address] [id number] [address] [place] [address], [place] [id number] Jun, [facility] [address] [id number] [address] [place] [address], [place] [id number] Jun, [facility] [address] [id number] [address] [place] [address], [place] [address] Jun, [facility] [address] [id number] [address] [place] [address], [place] [address] Jun, [facility] [address] [id number] [address] [place] [id number] Jun, [facility] [address] [id number] [address] [place] [id number] Jun, [facility] [address] [id number] [address] [place] [id number] Jun, [facility] [address] [id number] [address] [place] [id number] Jun, [facility] [address] [id number] [address] [place] [id number] May, [facility] [address] [id number] [address] [place] [id number] May, [facility] [address] [facility] [id number] [address] [place] [id number] May, IMMUNIZATIONS No Known Immunizations SOCIAL HISTORY [...]
--- OUTSIDE RECORDS SUMMARY | 2020-05-03 14:40 | XMS REPORT ---
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 20 Active 966860551 Problem Screening breast examination Z12.39 A ctive 700436454 Problem Irritable bowel syndrome without diarrhea K58.9 Active 68463031 Problem Irritable bowel syndrome with diarrhea K58.0 Active 902564223 ALLERGIES No Information ENCOUNTERS Encounter Location Date Diagnosis [facility] [address] [id number] [address] [place] [address] [id number] March, Dental examination Z01.20 [facility] [address] [id number] [address] [place] [address] [id number] Feb, Caries K02.9 [facility] [address] [id number] [address] [place] [address] [id number] Feb, Caries K02.9 [facility] [address] [id number] [address] [place] [address] [id number] Jan, [facility] [address] [id number] [address] [place] [address] [id number] Jan, Caries K02.9 [facility] [address] [id number] [address] [place] [address] [id number] Dec, [facility] [address] [id number] [address] [place] [address] [id number] Dec, 2018 Dental examination Z01.20 an d Caries K02.9 [place] [address] [address] 14 Sep, 2016 Dental examination Z01.20 [place] [address] [place] [id number] [address] [place] [address] 08 Jan, 2016 Nausea R11.0 ; Irritable bow el syndrome without diarrhea K58.9 and History of renal transplant Z94.0 [place] [address] [id number] 2015 [place] [address] [address] 11 Dec, 2015 Breast pain N64.4 ; Screenin g breast examination Z12.39 and Mild intermittent asthma without complication J45.20 [place] [address] [id number] 10 Dec, 2015 [place] [address] [address] 09 Dec, 2015 Kidney transplant status Z94 .0 ; Personal history of immunosupression therapy Z92.25 ; Recurrent UTI N39.0 and Encounter for screening, unspecified Z13.9 [place] [address] [place] [id number] [address] [place] [address] Oct, [place] [address] [place] [id number] [address] [place] [address] Oct, [place] [address] [place] [id number] [address] [place] [address] Oct, [place] [address] [address] Oct, Hiatal hernia K44.9 and Atyp ical chest pain R07.89 [place] [address] [place] [id number] [address] [place] [address] Oct, [place] [address] [id number] [address] [place] [address] Sep, Kidney replaced by transplan t V42.0 and Bilateral low back pain with sciatica, sciatica laterality unspecified M54.40 [facility] [address] [id number] [address] [place] [address] Sep, [facility] [address] [id number] [address] [place] [address] Sep, Kidney replaced by transplan t V42.0 ; Bilateral low back pain with sciatica, sciatica laterality unspecified M54.40 ; Anxiety F41.9 and Primary insomnia F51.01 [facility] [address] [id number] [address] [place] [address] Aug, [facility] [address] [id number] [address] [place] [address] Aug, [facility] [address] [id number] [address] [place] [address] Aug, Kidney transplant status Z94 .0 ; Personal history of immunosupression therapy Z92.25 ; Recurrent urinary tract infection N39.0 and Screening Z13.9 [facility] [address] [id number] [address] [place] [address] Aug, [facility] [address] [id number] [address] [place] [address] Aug, Encounter for aftercare foll owing kidney transplant Z48.22 ; Chronic radicular pain of lower back M54.16 and PND (post-nasal drip) R09.82 [facility] [address] [id number] [address] [place] [address] Jul, [facility] [address] [id number] [address] [place] [address] Jul, [facility] [address] [id number] [address] [place] [address] Jul, [facility] [address] [id number] [address] [place] [address] Jul, Kidney replaced by transplan t V42.0 ; Depressive disorder, not elsewhere classified 311 ; Anxiety state, unspecified 300.00 ; Insomnia, unspecified 780.52 ; Irritable bowel syndrome 564.1 ; Chronic lumbar pain 724.2 and GERD (gastroesophageal reflux disease) 530.81 [facility] [address] [id number] [address] [place] [address] Jul, [facility] [address] [id number] [address] [place] [address] Jun, [facility] [address] [id number] [address] [place] [address] Jun, [facility] [address] [id number] [address] [place] [address] Jun, [place] [address] [address] [facility] [id number] [address] [place] [address] Jun, Kidney replaced by transplan t V42.0 [facility] [address] [id number] [address] [place] [address] May, [facility] [address] [id number] [address] [place] [address] May, Depression with anxiety 300. 4 and Skin infection 686.9 [place] [address] [address] [facility] [id number] [address] [place] [address] May, [facility] [address] [id number] [address] [place] [address] May, Kidney replaced by transplan t V42.0 ; Recurrent UTI (urinary tract infection) 599.0 and Absence of menstruation 626.0 [place] [address] [address] [facility] [id number] [address] [place] [address] May, [place] [address] [address] [facility] [id number] [address] [place] [address] May, Depression with anxiety 300. 4 [place] [address] [place] [id number] [address] [place] [address] May, [facility] [address] [place] [id number] [address] [place] [address] Apr, [facility] [address] [facility] [id number] [address] [place] [address] Apr, [facility] [address] [place] [id number] [address] [place] [address] Apr, Depression, major, recurrent , mild 296.31 [facility] [address] [facility] [id number] [address] [place] [address] Apr, Depression, major, recurrent , mild 296.31 [place] [address] [place] [id number] [address] [place] [address] Apr, Cervicalgia 723.1 ; Lumbago 724.2 ; Anxiety state, unspecified 300.00 ; Nausea 787.02 ; 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 ; Recurrent UTI (urinary tract infection) 599.0 and Knee pain, bilateral 719.46 [place] [address] [place] [id number] [address] [place] [address] March, Depression, major, recurrent , mild 296.31 [facility] [address] [place] [id number] [address] [place] [address] March, [facility] [address] [place] [id number] [address] [place] [address] March, [facility] [address] [place] [id number] [address] [place] [address] March, Lumbago 724.2 ; Insomnia, un specified 780.52 ; Depressive disorder, not elsewhere classified 311 ; 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 ; Anxiety 300.00 ; Allergic rhinitis 477.9 and GERD (gastroesophageal reflux disease) 530.81 [facility] [address] [place] [id number] [address] [place] [address] Feb, [facility] [address] [id number] [address] [place] [address], [place] [address] Feb, [facility] [address] [id number] [address] [place] [address], [place] [address] Jan, [facility] [address] [id number] [address] [place] [address], [place] [address] Jan, [facility] [address] [id number] [address] [place] [address], [place] [address] Jan, [facility] [address] [id number] [address] [place] [address], [place] [address] Jan, [facility] [address] [id number] [address] [place] [address], [place] [address] Dec, [facility] [address] [id number] [address] [place] [address], [place] [address] Dec, [facility] [address] [id number] [address] [place] [address], [place] [address] Dec, [facility] [address] [id number] [address] [place] [address], [place] [address] Dec, [facility] [address] [id number] [address] [place] [address], [place] [address] Dec, [facility] [address] [id number] [address] [place] [address], [place] [address] Dec, [facility] [address] [id number] [address] [place] [address], [place] [address] Dec, [facility] [address] [id number] [address] [place] [address], [place] [address] Nov, [facility] [address] [id number] [address] [place] [address], [place] [address] Nov, [facility] [address] [id number] [address] [place] [address], [place] [address] Nov, [facility] [address] [id number] [address] [place] [address] Nov, [facility] [address] [id number] [address] [place] [address], [place] [address] Nov, [facility] [address] [id number] [address] [place] [address], [place] [address] Nov, [facility] [address] [id number] [address] [place] [address], [place] [address] Nov, [facility] [address] [id number] [address] [place] [address], [place] [address] Nov, [facility] [address] [id number] [address] [place] [address], [place] [address] Nov, [facility] [address] [id number] [address] [place] [address], [place] [address] Nov, [facility] [address] [id number] [address] [place] [address], [place] [address] Nov, [facility] [address] [id number] [address] [place] [address], [place] [address] Nov, [facility] [address] [id number] [address] [place] [address], [place] [address] Nov, [facility] [address] [id number] [address] [place] [address], [place] [address] Nov, [facility] [address] [id number] [address] [place] [address], [place] [address] Nov, [facility] [address] [id number] [address] [place] [address], [place] [address] Nov, [facility] [address] [id number] [address] [place] [address], [place] [address] Nov, [facility] [address] [id number] [address] [place] [address], [place] [address] Nov, [facility] [address] [id number] [address] [place] [address], [place] [address] Nov, [facility] [address] [id number] [address] [place] [address], [place] [address] Nov, [facility] [address] [id number] [address] [place] [address], [place] [address] Nov, [facility] [address] [id number] [address] [place] [address], [place] [address] Nov, [facility] [address] [id number] [address] [place] [address], [place] [address] Nov, [facility] [address] [id number] [address] [place] [address], [place] [address] Nov, [facility] [address] [id number] [address] [place] [address], [place] [address] Nov, [facility] [address] [id number] [address] [place] [address], [place] [address] Nov, [facility] [address] [id number] [address] [place] [address], [place] [address] Nov, [facility] [address] [id number] [address] [place] [address], [place] [address] Nov, [facility] [address] [id number] [address] [place] [address], [place] [address] Nov, [facility] [address] [id number] [address] [place] [address], [place] [address] Oct, [facility] [address] [id number] [address] [place] [address], [place] [address] Oct, [facility] [address] [id number] [address] [place] [address], [place] [address] Oct, [facility] [address] [id number] [address] [place] [address], [place] [address] Oct, [facility] [address] [id number] [address] [place] [address], [place] [address] Oct, [facility] [address] [id number] [address] [place] [address], [place] [address] Oct, [facility] [address] [id number] [address] [place] [address], [place] [address] Oct, [facility] [address] [id number] [address] [place] [address], [place] [address] Oct, [facility] [address] [id number] [address] [place] [address], [place] [address] Oct, [facility] [address] [id number] [address] [place] [address], [place] [address] Oct, [facility] [address] [id number] [address] [place] [address], [place] [address] Oct, [facility] [address] [id number] [address] [place] [address], [place] [address] Oct, [facility] [address] [id number] [address] [place] [address], [place] [address] 17 Oct, 2014 [facility] [address] [id number] [address] [place] [address], [place] [address] 17 Oct, 2014 [facility] [address] [id number] [address] [place] [address], [place] [address] 16 Oct, 2014 [facility] [address] [id number] [address] [place] [address], [place] [address] 16 Oct, 2014 [facility] [address] [id number] [address] [place] [address], [place] [address] 13 Oct, 2014 [facility] [address] [id number] [address] [place] [address], [place] [address] Oct, [facility] [address] [id number] [address] [place] [address], [place] [address] Oct, [facility] [address] [id number] [address] [place] [address], [place] [address] 05 Oct, 2014 [facility] [address] [id number] [address] [place] [address], [place] [address] 05 Oct, 2014 [facility] [address] [id number] [address] [place] [address] Oct, [facility] [address] [id number] [address] [place] [address], [place] [address] Oct, [facility] [address] [id number] [address] [place] [address], [place] [address] Sep, [facility] [address] [id number] [address] [place] [address], [place] [address] Sep, [facility] [address] [id number] [address] [place] [address], [place] [address] Sep, [facility] [address] [id number] [address] [place] [address], [place] [address] Sep, [facility] [address] [id number] [address] [place] [address], [place] [address] Sep, [facility] [address] [id number] [address] [place] [address], [place] [address] Sep, [facility] [address] [id number] [address] [place] [address], [place] [address] Sep, [facility] [address] [id number] [address] [place] [address], [place] [address] Sep, [facility] [address] [id number] [address] [place] [address], [place] [address] Sep, [facility] [address] [id number] [address] [place] [address], [place] [address] Sep, [facility] [address] [id number] [address] [place] [address], [place] [address] Sep, [facility] [address] [id number] [address] [place] [address], [place] [address] Sep, [facility] [address] [id number] [address] [place] [address], [place] [address] Sep, [facility] [address] [id number] [address] [place] [address], [place] [address] Sep, [facility] [address] [id number] [address] [place] [address], [place] [address] Sep, [facility] [address] [id number] [address] [place] [address], [place] [address] Sep, [facility] [address] [id number] [address] [place] [address], [place] [address] Sep, [facility] [address] [id number] [address] [place] [address], [place] [address] Sep, [facility] [address] [id number] [address] [place] [address], [place] [address] Sep, [facility] [address] [id number] [address] [place] [address], [place] [address] Sep, [facility] [address] [id number] [address] [place] [address], [place] [address] Sep, [facility] [address] [id number] [address] [place] [address], [place] [address] Sep, [facility] [address] [id number] [address] [place] [address], [place] [address] Sep, [facility] [address] [id number] [address] [place] [address], [place] [address] Sep, [facility] [address] [id number] [address] [place] [address], [place] [address] Sep, [facility] [address] [id number] [address] [place] [address], [place] [address] Sep, [facility] [address] [id number] [address] [place] [address], [place] [address] Sep, [facility] [address] [id number] [address] [place] [address], [place] [address] Sep, [facility] [address] [id number] [address] [place] [address], [place] [address] Aug, [facility] [address] [id number] [address] [place] [address], [place] [address] Aug, [facility] [address] [id number] [address] [place] [address], [place] [address] Aug, [facility] [address] [id number] [address] [place] [address], [place] [address] Aug, [facility] [address] [id number] [address] [place] [address], [place] [address] Aug, [facility] [address] [id number] [address] [place] [address], [place] [address] Aug, [facility] [address] [id number] [address] [place] [address], [place] [address] Aug, [facility] [address] [id number] [address] [place] [address], [place] [address] Aug, [facility] [address] [id number] [address] [place] [address], [place] [address] Aug, [facility] [address] [id number] [address] [place] [address], [place] [address] Aug, [facility] [address] [id number] [address] [place] [address], [place] [address] Aug, [facility] [address] [id number] [address] [place] [address] Aug, [facility] [address] [id number] [address] [place] [address], [place] [address] Aug, [facility] [address] [id number] [address] [place] [address] Aug, [facility] [address] [id number] [address] [place] [address], [place] [address] Aug, [facility] [address] [id number] [address] [place] [address], [place] [address] Aug, [facility] [address] [id number] [address] [place] [address], [place] [address] 17 Aug, 2014 [facility] [address] [id number] [address] [place] [address], [place] [address] 17 Aug, 2013 [facility] [address] [id number] [address] [place] [address], [place] [address] 14 Aug, 2013 [facility] [address] [id number] [address] [place] [address], [place] [address] 14 Aug, 2013 [facility] [address] [id number] [address] [place] [address], [place] [address] 09 Aug, 2013 [facility] [address] [id number] [address] [place] [address], [place] [address] 09 Aug, 2013 [facility] [address] [id number] [address] [place] [address], [place] [address] 09 Aug, 2013 [facility] [address] [id number] [address] [place] [address], [place] [address] 09 Aug, 2013 [facility] [address] [id number] [address] [place] [address], [place] [address] 08 Aug, 2013 [facility] [address] [id number] [address] [place] [address], [place] [address] 07 Aug, 2013 [facility] [address] [id number] [address] [place] [address], [place] [address] 07 Aug, 2013 [facility] [address] [id number] [address] [place] [address], [place] [address] 07 Aug, 2013 [facility] [address] [id number] [address] [place] [address], [place] [address] 07 Aug, 2013 [facility] [address] [id number] [address] [place] [address] 30 Jul, 2013 [facility] [address] [id number] [address] [place] [address], [place] [address] 30 Sep, 2013 [facility] [address] [id number] [address] [place] [address], [place] [address] 29 Jul, 2013 [facility] [address] [id number] [address] [place] [address], [place] [address] 29 Jul2013 [facility] [address] [id number] [address] [place] [address] 19 Jul, 2013 [facility] [address] [id number] [address] [place] [address] 19 Jul, 2013 [facility] [address] [id number] [address] [place] [address] 18 Jul, 2013 [facility] [address] [id number] [address] [place] [address], [place] [address] 18 Jul, 2013 [facility] [address] [id number] [address] [place] [address] 17 Jul, 2013 [facility] [address] [id number] [address] [place] [address], [place] [address] 17 Jul, 2013 [facility] [address] [id number] [address] [place] [address], [place] [address] 10 Jul, 2013 [facility] [address] [id number] [address] [place] [address], [place] [address] 10 Jul, 2013 [facility] [address] [id number] [address] [place] [address], [place] [address] Jun, [facility] [address] [id number] [address] [place] [address], [place] [id number] Jun, [facility] [address] [id number] [address] [place] [address], [place] [id number] Jun, [facility] [address] [id number] [address] [place] [address], [place] [id number] Jun, [facility] [address] [id number] [address] [place] [address], [place] [address] Jun, [facility] [address] [id number] [address] [place] [address], [place] [address] Jun, [facility] [address] [id number] [address] [place] [address], [place] [address] Jun, [facility] [address] [id number] [address] [place] [address], [place] [address] Jun, [facility] [address] [id number] [address] [place] [id number] Jun, [facility] [address] [id number] [address] [place] [id number] Jun, [facility] [address] [id number] [address] [place] [id number] Jun, [facility] [address] [id number] [address] [place] [id number] Jun, [facility] [address] [id number] [address] [place] [id number] May, [facility] [address] [id number] [address] [place] [id number] May, [facility] [address] [facility] [id number] [address] [place] [id number] May, IMMUNIZATIONS No Known Immunizations SOCIAL HISTORY [...]
--- OUTSIDE RECORDS SUMMARY | 2020-05-03 14:41 | XMS REPORT ---
Author Author Tracee Briceño Doctor Organization [facility] Address Unknown Phone Unavailable Care Team Providers Care Optomechanical Engineer Name Role Phone Migration, Doctor Unavailable Unavailable PROBLEMS Type Condition ICD9-CM Code PSO13-HV Code Onset Dates Condition S tatus SNOMED Code Problem Primary insomnia F51.01 Active 397 2004 Problem Breast pain N64.4 Active 41592720 Problem History of renal transplant Z94.0 Ac tive 977912758 Problem Violation of controlled substance agreement Z91.14 Active 915221587 Problem Mild intermittent asthma without complication J45. 20 Active 289707290 Problem Screening breast examination Z12.39 A ctive 301470652 Problem Irritable bowel syndrome without diarrhea K58.9 Active 09883955 Problem Irritable bowel syndrome with diarrhea K58.0 Active 983867148 ALLERGIES No Information ENCOUNTERS Encounter Location Date Diagnosis [facility] [id number] [place] [address] [id number] March, [facility] [id number] [place] [address] [id number] Feb, Caries K02.9 [facility] [address] [id number] [address] [place] [address] [id number] Feb, Caries K02.9 [facility] [address] [id number] [address] [place] [address] [id number] Jan, [facility] [address] [id number] [address] [place] [address] [id number] Jan, Caries K02.9 [facility] [address] [id number] [address] [place] [address] [id number] Dec, [facility] [address] [facility] [id number] [address] [place] [address] [id number] Dec, Dental examination Z01.20 an d Caries K02.9 [facility] [address] [place] [id number] [address] [place] [id number] 14 Sep, 2016 Dental examination Z01.20 [place] [address] [id number] 08 Jan, 2016 Nausea R11.0 ; Irritable bow el syndrome without diarrhea K58.9 and History of renal transplant Z94.0 [place] [address] [id number] 2015 [place] [address] [address] 11 Dec, 2015 Breast pain N64.4 ; Screenin g breast examination Z12.39 and Mild intermittent asthma without complication J45.20 [place] [address] [id number] 10 Dec, 2015 [place] [address] [id number] 09 Dec, 2015 Kidney transplant status Z94 .0 ; Personal history of immunosupression therapy Z92.25 ; Recurrent UTI N39.0 and Encounter for screening, unspecified Z13.9 [place] [address] [address] Oct, [place] [address] [address] Oct, [place] [address] [address] Oct, [place] [address] [place] [id number] [place] [id number] Oct, Hiatal hernia K44.9 and Atyp ical chest pain R07.89 [place] [address] [place] [id number] [address] [place] [id number] Oct, [place] [address] [place] [id number] [address] [place] [phone] Sep, Kidney replaced by transplan t V42.0 and Bilateral low back pain with sciatica, sciatica laterality unspecified M54.40 [facility] [address] [id number] [address] [place] [id number] Sep, [facility] [address] [id number] [address] [place] [id number] Sep, Kidney replaced by transplan t V42.0 ; Bilateral low back pain with sciatica, sciatica laterality unspecified M54.40 ; Anxiety F41.9 and Primary insomnia F51.01 [facility] [address] [id number] [address] [place] [phone] Aug, [facility] [address] [id number] [address] [place] [id number] Aug, [facility] [address] [id number] [address] [place] [id number] Aug, Kidney transplant status Z94 .0 ; Personal history of immunosupression therapy Z92.25 ; Recurrent urinary tract infection N39.0 and Screening Z13.9 [facility] [address] [id number] [address] [place] [phone] Aug, [facility] [address] [id number] [address] [place] [phone] Aug, Encounter for aftercare foll owing kidney transplant Z48.22 ; Chronic radicular pain of lower back M54.16 and PND (post-nasal drip) R09.82 [facility] [address] [id number] [address] [place] [phone] Jul, [facility] [address] [id number] [address] [place] [phone] Jul, [facility] [address] [id number] [address] [place] [phone] Jul, [facility] [address] [id number] [address] [place] [phone] Jul, Kidney replaced by transplan t V42.0 ; Depressive disorder, not elsewhere classified 311 ; Anxiety state, unspecified 300.00 ; Insomnia, unspecified 780.52 ; Irritable bowel syndrome 564.1 ; Chronic lumbar pain 724.2 and GERD (gastroesophageal reflux disease) 530.81 [facility] [address] [facility] [id number] [address] [place] [phone] Jul, [facility] [address] [id number] [address] [place] [phone] Jun, [facility] [address] [id number] [address] [place] [phone] Jun, [facility] [address] [id number] [address] [place] [phone] Jun, [facility] [address] [facility] [id number] [address] [place] [phone] Jun, Kidney replaced by transplan t V42.0 [place] [address] [facility] [id number] [address] [place] [phone] May, [facility] [address] [id number] [address] [place] [phone] May, Depression with anxiety 300. 4 and Skin infection 686.9 [place] [address] [facility] [id number] [address] [place] [phone] May, [facility] [address] [id number] [address] [place] [phone] May, Kidney replaced by transplan t V42.0 ; Recurrent UTI (urinary tract infection) 599.0 and Absence of menstruation 626.0 [facility] [address] [id number] [address] [place] [phone] May, [place] [address] [facility] [id number] [address] [place] [phone] May, Depression with anxiety 300. 4 [place] [address] [facility] [id number] [address] [place] [phone] May, [facility] [address] [place] [id number] [address] [place] [phone] Apr, [facility] [address] [address] Apr, [facility] [address] [address] Apr, Depression, major, recurrent , mild 296.31 [place] [address] [address] Apr, Depression, major, recurrent , mild 296.31 [place] [address] [address] Apr, Cervicalgia 723.1 ; Lumbago 724.2 ; Anxiety state, unspecified 300.00 ; Nausea 787.02 ; 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 ; Recurrent UTI (urinary tract infection) 599.0 and Knee pain, bilateral 719.[address] [address] March, Depression, major, recurrent , mild 296.[address] [address] March, [place] [address] [address] March, [place] [address] [address] March, Lumbago 724.2 ; Insomnia, un specified 780.52 ; Depressive disorder, not elsewhere classified 311 ; 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 ; Anxiety 300.00 ; Allergic rhinitis 477.9 and GERD (gastroesophageal reflux disease) 530.81 [place] [address] [id number] Feb, [place] [address] [address] Feb, [place] [address] [place] [address] Jan, [facility] [address] [id number] [address] [place] [address], [place] [address] Jan, [facility] [address] [id number] [address] [place] [address], [place] [address] Jan, [facility] [address] [id number] [address] [place] [address], [place] [address] Jan, [facility] [address] [id number] [address] [place] [address], [place] [address] Dec, [facility] [address] [id number] [address] [place] [address], [place] [address] Dec, [facility] [address] [id number] [address] [place] [address], [place] [address] Dec, [facility] [address] [id number] [address] [place] [address], [place] [address] Dec, [facility] [address] [id number] [address] [place] [address], [place] [address] Dec, [facility] [address] [id number] [address] [place] [address], [place] [address] Dec, [facility] [address] [id number] [address] [place] [address], [place] [address] Dec, [facility] [address] [id number] [address] [place] [address], [place] [address] Nov, [facility] [address] [id number] [address] [place] [phone] Nov, [facility] [address] [id number] [address] [place] [address], [place] [address] Nov, [facility] [address] [id number] [address] [place] [address], [place] [address] Nov, [facility] [address] [id number] [address] [place] [address], [place] [address] Nov, [facility] [address] [id number] [address] [place] [address], [place] [address] Nov, [facility] [address] [id number] [address] [place] [address], [place] [address] Nov, [facility] [address] [id number] [address] [place] [address], [place] [address] Nov, [facility] [address] [id number] [address] [place] [address], [place] [address] Nov, [facility] [address] [id number] [address] [place] [address], [place] [address] Nov, [facility] [address] [id number] [address] [place] [address], [place] [address] Nov, [facility] [address] [id number] [address] [place] [address], [place] [address] Nov, [facility] [address] [id number] [address] [place] [address], [place] [address] Nov, [facility] [address] [id number] [address] [place] [address], [place] [address] Nov, [facility] [address] [id number] [address] [place] [address], [place] [address] Nov, [facility] [address] [id number] [address] [place] [address], [place] [address] Nov, [facility] [address] [id number] [address] [place] [address], [place] [address] Nov, [facility] [address] [id number] [address] [place] [address], [place] [address] Nov, [facility] [address] [id number] [address] [place] [address], [place] [address] Nov, [facility] [address] [id number] [address] [place] [address], [place] [address] Nov, [facility] [address] [id number] [address] [place] [phone] Nov, [facility] [address] [id number] [address] [place] [address], [place] [address] Nov, [facility] [address] [id number] [address] [place] [address], [place] [address] Nov, [facility] [address] [id number] [address] [place] [address], [place] [address] Nov, [facility] [address] [id number] [address] [place] [address], [place] [address] Nov, [facility] [address] [id number] [address] [place] [address], [place] [address] Nov, [facility] [address] [id number] [address] [place] [address], [place] [address] Nov, [facility] [address] [id number] [address] [place] [address], [place] [address] Nov, [facility] [address] [id number] [address] [place] [address], [place] [address] Nov, [facility] [address] [id number] [address] [place] [address], [place] [address] Oct, [facility] [address] [id number] [address] [place] [address], [place] [address] Oct, [facility] [address] [id number] [address] [place] [address], [place] [address] Oct, [facility] [address] [id number] [address] [place] [address], [place] [address] Oct, [facility] [address] [id number] [address] [place] [address], [place] [address] Oct, [facility] [address] [id number] [address] [place] [address], [place] [address] Oct, [facility] [address] [id number] [address] [place] [address], [place] [address] Oct, [facility] [address] [id number] [facility] [place] [address] Oct, [facility] [address] [id number] [facility] [place] [address] Oct, [facility] [address] [id number] [address] [place] [address], [place] [address] Oct, [facility] [address] [id number] [address] [place] [address], [place] [address] Oct, [facility] [address] [id number] [address] [place] [address], [place] [address] Oct, [facility] [address] [id number] [address] [place] [address], [place] [address] Oct, [facility] [address] [id number] [address] [place] [address], [place] [address] 17 Oct, 2014 [facility] [address] [id number] [address] [place] [address], [place] [address] 16 Oct, 2014 [facility] [address] [id number] [address] [place] [address], [place] [address] 16 Oct, 2014 [facility] [address] [id number] [address] [place] [address], [place] [address] 13 Oct, 2014 [facility] [address] [id number] [address] [place] [address], [place] [address] 12 Oct, 2014 [facility] [address] [id number] [address] [place] [address], [place] [address] Oct, [facility] [address] [id number] [address] [place] [address], [place] [id number] 05 Oct, 2014 [facility] [address] [id number] [address] [place] [address], [place] [address] 05 Oct, 2014 [facility] [address] [id number] [address] [place] [address], [place] [address] 02 Oct, 2014 [facility] [address] [id number] [address] [place] [address] [address] Oct, [facility] [address] [id number] [address] [place] [address], [place] [address] Sep, [facility] [address] [id number] [address] [place] [address], [place] [address] Sep, [facility] [address] [id number] [address] [place] [address], [place] [address] Sep, [facility] [address] [id number] [address] [place] [address], [place] [address] Sep, [facility] [address] [id number] [address] [place] [address], [place] [address] Sep, [facility] [address] [id number] [address] [place] [address], [place] [address] Sep, [facility] [address] [id number] [address] [place] [address], [place] [address] Sep, [facility] [address] [id number] [address] [place] [address], [place] [address] Sep, [facility] [address] [id number] [address] [place] [address], [place] [address] Sep, [facility] [address] [id number] [address] [place] [address], [place] [address] Sep, [facility] [address] [id number] [address] [place] [address], [place] [address] Sep, [facility] [address] [id number] [address] [place] [address], [place] [address] Sep, [facility] [address] [id number] [address] [place] [address], [place] [address] Sep, [facility] [address] [id number] [address] [place] [address], [place] [address] Sep, [facility] [address] [id number] [address] [place] [address], [place] [address] Sep, [facility] [address] [id number] [address] [place] [address], [place] [address] Sep, [facility] [address] [id number] [address] [place] [address], [place] [address] Sep, [facility] [address] [id number] [address] [place] [address], [place] [address] Sep, [facility] [address] [id number] [address] [place] [address], [place] [address] Sep, [facility] [address] [id number] [address] [place] [address], [place] [address] Sep, [facility] [address] [id number] [address] [place] [address], [place] [address] Sep, [facility] [address] [id number] [address] [place] [address], [place] [address] Sep, [facility] [address] [id number] [address] [place] [address], [place] [address] Sep, [facility] [address] [id number] [address] [place] [address], [place] [address] Sep, [facility] [address] [id number] [address] [place] [address], [place] [address] Sep, [facility] [address] [id number] [address] [place] [address], [place] [address] Sep, [facility] [address] [id number] [address] [place] [address], [place] [address] Sep, [facility] [address] [id number] [address] [place] [address], [place] [address] Sep, [facility] [address] [id number] [address] [place] [address], [place] [address] Aug, [facility] [address] [id number] [address] [place] [address], [place] [address] Aug, [facility] [address] [id number] [address] [place] [address], [place] [address] Aug, [facility] [address] [id number] [address] [place] [address], [place] [address] Aug, [facility] [address] [id number] [address] [place] [address], [place] [address] Aug, [facility] [address] [id number] [address] [place] [address], [place] [address] Aug, [facility] [address] [id number] [address] [place] [address], [place] [address] Aug, [facility] [address] [id number] [address] [place] [address], [place] [address] Aug, [facility] [address] [id number] [address] [place] [address], [place] [address] Aug, [facility] [address] [id number] [address] [place] [address], [place] [address] Aug, [facility] [address] [id number] [address] [place] [address], [place] [id number] Aug, [facility] [address] [id number] [address] [place] [address], [place] [id number] Aug, [facility] [address] [id number] [address] [place] [address], [place] [id number] Aug, [facility] [address] [id number] [address] [place] [address], [place] [id number] Aug, [facility] [address] [id number] [address] [place] [address], [place] [id number] Aug, [facility] [address] [id number] [address] [place] [address], [place] [id number] Aug, [facility] [address] [id number] [address] [place] [address], [place] [id number] Aug, [facility] [address] [id number] [address] [place] [address], [place] [id number] Aug, [facility] [address] [id number] [address] [place] [address], [place] [id number] 14 Aug, 2014 [facility] [address] [id number] [address] [place] [address], [place] [id number] 14 Aug, 2014 [facility] [address] [id number] [address] [place] [address], [place] [id number] Aug, 2013 [facility] [address] [id number] [address] [place] [address], [place] [id number] Aug, 2013 [facility] [address] [id number] [address] [place] [id number] Aug, 2013 [facility] [address] [id number] [address] [place] [address], [place] [id number] Aug, 2013 [facility] [address] [id number] [address] [place] [address], [place] [id number] 08 Aug, 2013 [facility] [address] [id number] [address] [place] [address], [place] [id number] Aug, 2013 [facility] [address] [id number] [address] [place] [id number] Aug, 2013 [facility] [address] [id number] [address] [place] [id number] Aug, 2013 [facility] [address] [id number] [address] [place] [id number] Aug, 2013 [facility] [address] [id number] [address] [place] [id number] 30 Jul, 2013 [facility] [address] [id number] [address] [place] [id number] 30 Sep, 2013 [facility] [address] [id number] [address] [place] [address], [place] [id number] 29 Sep, 2013 [facility] [address] [id number] [address] [place] [address], [place] [id number] 29 Sep, 2013 [facility] [address] [id number] [address] [place] [address], [place] [id number] 19 Sep, 2013 [facility] [address] [id number] [facility] [place] [id number] 19 Jul, 2013 [facility] [address] [id number] [facility] [place] [id number] 18 Jul, 2013 [facility] [address] [id number] [facility] [place] [id number] 18 Jul, 2013 [facility] [address] [id number] [facility] [place] [id number] 17 Jul, 2013 [facility] [address] [id number] [address] [place] [address], [place] [id number] 17 Jul, 2013 [facility] [address] [id number] [address] [place] [address], [place] [id number] 10 Jul, 2013 [facility] [address] [id number] [address] [place] [address], [place] [id number] 10 Jul, 2013 [facility] [address] [id number] [address] [place] [address], [place] [id number] 27 Jun, 2014 [facility] [address] [id number] [address] [place] [address], [place] [id number] Jun, [facility] [address] [id number] [address] [place] [address], [place] [id number] Jun, [facility] [address] [id number] [address] [place] [address], [place] [id number] Jun, [facility] [address] [id number] [address] [place] [address], [place] [id number] Jun, [facility] [address] [id number] [address] [place] [address], [place] [id number] Jun, [facility] [address] [id number] [address] [place] [address], [place] [id number] Jun, [facility] [address] [id number] [address] [place] [address], [place] [id number] Jun, [facility] [address] [id number] [address] [place] [address], [place] [phone] Jun, [facility] [address] [facility] [id number] [address] [place] [phone] Jun, [facility] [address] [facility] [id number] [address] [place] [phone] Jun, [facility] [address] [facility] [id number] [address] [place] [phone] Jun, [facility] [address] [facility] [id number] [address] [place] [phone] May, [facility] [address] [facility] [id number] [address] [place] [phone] May, [facility] [address] [facility] [id number] [address] [place] [phone] May, IMMUNIZATIONS No Known Immunizations SOCIAL HISTORY Never Assessed REASON FOR VISIT EMR-[facility] PLAN OF CARE VITAL SIGNS MEDICATIONS Unknown [...]
--- OUTSIDE RECORDS SUMMARY | 2020-05-03 14:41 | XMS REPORT ---
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 20 Active 268300728 Problem Screening breast examination Z12.39 A ctive 512155389 Problem Irritable bowel syndrome without diarrhea K58.9 Active 76669186 Problem Irritable bowel syndrome with diarrhea K58.0 Active 285986891 ALLERGIES No Information ENCOUNTERS Encounter Location Date Diagnosis [facility] [address] [id number] [place] [address] [id number] March, Dental examination Z01.20 [facility] [address] [id number] [address] [place] [address] [id number] Feb, Caries K02.9 [facility] [address] [id number] [address] [place] [address] [id number] Feb, Caries K02.9 [facility] [address] [id number] [address] [place] [address] [id number] Jan, [facility] [address] [id number] [address] [place] [address] [id number] Jan, Caries K02.9 [facility] [address] [id number] [address] [place] [address] [id number] Dec, [facility] [address] [id number] [address] [place] [address] [id number] Dec, 2018 Dental examination Z01.20 an d Caries K02.9 [place] [address] [id number] 14 Sep, 2016 Dental examination Z01.20 [place] [address] [address] [place] [id number] [address] [place] [id number] 08 Jan, 2016 Nausea R11.0 ; Irritable bow el syndrome without diarrhea K58.9 and History of renal transplant Z94.0 [place] [address] [id number] 2015 [place] [address] [id number] 11 Dec, 2015 Breast pain N64.4 ; Screenin g breast examination Z12.39 and Mild intermittent asthma without complication J45.20 [place] [address] [id number] 10 Dec, 2015 [place] [address] [address] 09 Dec, 2015 Kidney transplant status Z94 .0 ; Personal history of immunosupression therapy Z92.25 ; Recurrent UTI N39.0 and Encounter for screening, unspecified Z13.9 [place] [address] [address] [place] [id number] [address] [place] [phone] Oct, [place] [address] [address] [place] [id number] [address] [place] [address] Oct, [place] [address] [place] [id number] [address] [place] [phone] Oct, [place] [address] [address] Oct, Hiatal hernia K44.9 and Atyp ical chest pain R07.89 [place] [address] [address] [place] [id number] [address] [place] [address] Oct, [place] [address] [id number] [address] [place] [phone] Sep, Kidney replaced by transplan t V42.0 and Bilateral low back pain with sciatica, sciatica laterality unspecified M54.40 [facility] [address] [id number] [address] [place] [phone] Sep, [facility] [address] [id number] [address] [place] [address] Sep, Kidney replaced by transplan t V42.0 ; Bilateral low back pain with sciatica, sciatica laterality unspecified M54.40 ; Anxiety F41.9 and Primary insomnia F51.01 [facility] [address] [id number] [address] [place] [address] Aug, [facility] [address] [id number] [address] [place] [id number] Aug, [facility] [address] [id number] [address] [place] [id number] Aug, Kidney transplant status Z94 .0 ; Personal history of immunosupression therapy Z92.25 ; Recurrent urinary tract infection N39.0 and Screening Z13.9 [facility] [address] [id number] [address] [place] [phone] Aug, [facility] [address] [id number] [address] [place] [phone] Aug, Encounter for aftercare foll owing kidney transplant Z48.22 ; Chronic radicular pain of lower back M54.16 and PND (post-nasal drip) R09.82 [facility] [address] [id number] [address] [place] [phone] Jul, [facility] [address] [id number] [address] [place] [id number] Jul, [facility] [address] [id number] [address] [place] [address] Jul, [facility] [address] [id number] [address] [place] [id number] Jul, Kidney replaced by transplan t V42.0 ; Depressive disorder, not elsewhere classified 311 ; Anxiety state, unspecified 300.00 ; Insomnia, unspecified 780.52 ; Irritable bowel syndrome 564.1 ; Chronic lumbar pain 724.2 and GERD (gastroesophageal reflux disease) 530.81 [facility] [address] [id number] [address] [place] [id number] Jul, [facility] [address] [id number] [address] [place] [id number] Jun, [facility] [address] [id number] [address] [place] [phone] Jun, [facility] [address] [facility] [id number] [address] [place] [address] Jun, [facility] [address] [facility] [id number] [address] [place] [phone] Jun, Kidney replaced by transplan t V42.0 [facility] [address] [facility] [id number] [address] [place] [address] May, [facility] [address] [facility] [id number] [address] [place] [address] May, Depression with anxiety 300. 4 and Skin infection 686.9 [facility] [address] [facility] [id number] [address] [place] [address] May, [facility] [address] [id number] [address] [place] [phone] May, Kidney replaced by transplan t V42.0 ; Recurrent UTI (urinary tract infection) 599.0 and Absence of menstruation 626.0 [facility] [address] [facility] [id number] [address] [place] [phone] May, [facility] [address] [facility] [id number] [address] [place] [phone] May, Depression with anxiety 300. 4 [place] [address] [address] [place] [id number] [address] [place] [phone] May, [facility] [address] [place] [id number] [address] [place] [address] Apr, [facility] [address] [place] [id number] [address] [place] [phone] Apr, [facility] [address] [place] [id number] [address] [place] [address] Apr, Depression, major, recurrent , mild 296.31 [facility] [address] [place] [id number] [address] [place] [address] Apr, Depression, major, recurrent , mild 296.31 [place] [address] [address] [place] [id number] [address] [place] [address] Apr, Cervicalgia 723.1 ; Lumbago 724.2 ; Anxiety state, unspecified 300.00 ; Nausea 787.02 ; 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 ; Recurrent UTI (urinary tract infection) 599.0 and Knee pain, bilateral 719.46 [place] [address] [address] [place] [id number] [address] [place] [phone] March, Depression, major, recurrent , mild 296.31 [facility] [address] [place] [id number] [address] [place] [phone] March, [facility] [address] [place] [id number] [address] [place] [address] March, [facility] [address] [place] [id number] [address] [place] [phone] March, Lumbago 724.2 ; Insomnia, un specified 780.52 ; Depressive disorder, not elsewhere classified 311 ; 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 ; Anxiety 300.00 ; Allergic rhinitis 477.9 and GERD (gastroesophageal reflux disease) 530.81 [facility] [address] [place] [id number] [address] [place] [phone] Feb, [facility] [address] [id number] [address] [place] [address], [place] [address] Feb, [facility] [address] [id number] [address] [place] [address], [place] [address] Jan, [facility] [address] [id number] [address] [place] [address], [place] [address] Jan, [facility] [address] [id number] [address] [place] [address], [place] [address] Jan, [facility] [address] [id number] [address] [place] [address], [place] [address] Jan, [facility] [address] [id number] [address] [place] [address], [place] [address] Dec, [facility] [address] [id number] [address] [place] [address], [place] [address] Dec, [facility] [address] [id number] [address] [place] [address], [place] [address] Dec, [facility] [address] [id number] [address] [place] [address], [place] [address] Dec, [facility] [address] [id number] [address] [place] [address], [place] [address] Dec, [facility] [address] [id number] [address] [place] [address], [place] [address] Dec, [facility] [address] [id number] [address] [place] [address], [place] [address] Dec, [facility] [address] [id number] [address] [place] [address], [place] [address] Nov, [facility] [address] [id number] [address] [place] [address], [place] [address] Nov, [facility] [address] [id number] [address] [place] [address], [place] [address] Nov, [facility] [address] [id number] [address] [place] [address] [address] Nov, [facility] [address] [id number] [address] [place] [address], [place] [address] Nov, [facility] [address] [id number] [address] [place] [address], [place] [address] Nov, [facility] [address] [id number] [address] [place] [address], [place] [address] Nov, [facility] [address] [id number] [address] [place] [address], [place] [address] Nov, [facility] [address] [id number] [address] [place] [address], [place] [address] Nov, [facility] [address] [id number] [address] [place] [address], [place] [address] Nov, [facility] [address] [id number] [address] [place] [address], [place] [address] Nov, [facility] [address] [id number] [address] [place] [address], [place] [address] Nov, [facility] [address] [id number] [address] [place] [address], [place] [address] Nov, [facility] [address] [id number] [address] [place] [address], [place] [address] Nov, [facility] [address] [id number] [address] [place] [address], [place] [address] Nov, [facility] [address] [id number] [address] [place] [address], [place] [address] Nov, [facility] [address] [id number] [address] [place] [address], [place] [address] Nov, [facility] [address] [id number] [address] [place] [address], [place] [address] Nov, [facility] [address] [id number] [address] [place] [address], [place] [address] Nov, [facility] [address] [id number] [address] [place] [address], [place] [address] Nov, [facility] [address] [id number] [address] [place] [address], [place] [address] Nov, [facility] [address] [id number] [address] [place] [address], [place] [address] Nov, [facility] [address] [id number] [address] [place] [address], [place] [address] Nov, [facility] [address] [id number] [address] [place] [address], [place] [address] Nov, [facility] [address] [id number] [address] [place] [address], [place] [address] Nov, [facility] [address] [id number] [address] [place] [address], [place] [address] Nov, [facility] [address] [id number] [address] [place] [address], [place] [address] Nov, [facility] [address] [id number] [address] [place] [address], [place] [address] Nov, [facility] [address] [id number] [address] [place] [address], [place] [address] Nov, [facility] [address] [id number] [address] [place] [address], [place] [address] Oct, [facility] [address] [id number] [address] [place] [address], [place] [address] Oct, [facility] [address] [id number] [address] [place] [address], [place] [address] Oct, [facility] [address] [id number] [address] [place] [address], [place] [address] Oct, [facility] [address] [id number] [address] [place] [address], [place] [address] Oct, [facility] [address] [id number] [address] [place] [address], [place] [address] Oct, [facility] [address] [id number] [address] [place] [address], [place] [address] Oct, [facility] [address] [id number] [address] [place] [address], [place] [address] Oct, [facility] [address] [id number] [address] [place] [address], [place] [address] Oct, [facility] [address] [id number] [address] [place] [address], [place] [address] Oct, [facility] [address] [id number] [address] [place] [address], [place] [address] Oct, [facility] [address] [id number] [address] [place] [address], [place] [address] Oct, [facility] [address] [id number] [address] [place] [address], [place] [address] Oct, [facility] [address] [id number] [address] [place] [address], [place] [address] Oct, [facility] [address] [id number] [address] [place] [address], [place] [address] Oct, [facility] [address] [id number] [address] [place] [address], [place] [address] Oct, [facility] [address] [id number] [address] [place] [address], [place] [address] Oct, [facility] [address] [id number] [address] [place] [address], [place] [address] Oct, [facility] [address] [id number] [address] [place] [address], [place] [address] Oct, [facility] [address] [id number] [address] [place] [address], [place] [address] 05 Oct, 2014 [facility] [address] [id number] [address] [place] [address], [place] [address] 05 Oct, 2014 [facility] [address] [id number] [address] [place] [address], [place] [address] Oct, [facility] [address] [id number] [address] [place] [address], [place] [address] Oct, [facility] [address] [id number] [address] [place] [address], [place] [address] Sep, [facility] [address] [id number] [address] [place] [address], [place] [address] Sep, [facility] [address] [id number] [address] [place] [address], [place] [address] Sep, [facility] [address] [id number] [address] [place] [address], [place] [address] Sep, [facility] [address] [id number] [address] [place] [address], [place] [address] Sep, [facility] [address] [id number] [address] [place] [address], [place] [address] Sep, [facility] [address] [id number] [address] [place] [address], [place] [address] Sep, [facility] [address] [id number] [address] [place] [address], [place] [address] Sep, [facility] [address] [id number] [address] [place] [address], [place] [address] Sep, [facility] [address] [id number] [address] [place] [address], [place] [address] Sep, [facility] [address] [id number] [address] [place] [address], [place] [address] Sep, [facility] [address] [id number] [address] [place] [address], [place] [address] Sep, [facility] [address] [id number] [address] [place] [address], [place] [address] Sep, [facility] [address] [id number] [address] [place] [address], [place] [address] Sep, [facility] [address] [id number] [address] [place] [address], [place] [address] Sep, [facility] [address] [id number] [address] [place] [address], [place] [address] Sep, [facility] [address] [id number] [address] [place] [address], [place] [address] Sep, [facility] [address] [id number] [address] [place] [address], [place] [address] Sep, [facility] [address] [id number] [address] [place] [address], [place] [address] Sep, [facility] [address] [id number] [address] [place] [address], [place] [address] Sep, [facility] [address] [id number] [address] [place] [address], [place] [address] Sep, [facility] [address] [id number] [address] [place] [address], [place] [address] Sep, [facility] [address] [id number] [address] [place] [address], [place] [address] Sep, [facility] [address] [id number] [address] [place] [address], [place] [address] Sep, [facility] [address] [id number] [address] [place] [address], [place] [address] Sep, [facility] [address] [id number] [address] [place] [address], [place] [address] Sep, [facility] [address] [id number] [address] [place] [address], [place] [address] Sep, [facility] [address] [id number] [address] [place] [address], [place] [address] Sep, [facility] [address] [id number] [address] [place] [address], [place] [address] Aug, [facility] [address] [id number] [address] [place] [address], [place] [address] Aug, [facility] [address] [id number] [address] [place] [address], [place] [address] Aug, [facility] [address] [id number] [address] [place] [address], [place] [address] Aug, [facility] [address] [id number] [address] [place] [address], [place] [address] Aug, [facility] [address] [id number] [address] [place] [address], [place] [address] Aug, [facility] [address] [id number] [address] [place] [address], [place] [address] Aug, [facility] [address] [id number] [address] [place] [address], [place] [address] Aug, [facility] [address] [id number] [address] [place] [address], [place] [address] Aug, [facility] [address] [id number] [address] [place] [address], [place] [address] Aug, [facility] [address] [id number] [address] [place] [address], [place] [address] Aug, [facility] [address] [id number] [address] [place] [id number] Aug, [facility] [address] [id number] [address] [place] [id number] Aug, [facility] [address] [id number] [address] [place] [id number] Aug, [facility] [address] [id number] [address] [place] [address], [place] [address] Aug, [facility] [address] [id number] [address] [place] [address], [place] [address] Aug, [facility] [address] [id number] [address] [place] [id number] Aug, [facility] [address] [id number] [address] [place] [id number] 17 Aug, 2013 [facility] [address] [id number] [address] [place] [address], [place] [address] 14 Aug, 2013 [facility] [address] [id number] [address] [place] [id number] 14 Aug, 2013 [facility] [address] [id number] [address] [place] [address], [place] [address] 09 Aug, 2013 [facility] [address] [id number] [address] [place] [phone] 09 Aug, 2013 [facility] [address] [id number] [address] [place] [address], [place] [address] Aug, 2013 [facility] [address] [id number] [address] [place] [address], [place] [address] Aug, 2013 [facility] [address] [id number] [address] [place] [id number] 08 Aug, 2013 [facility] [address] [id number] [address] [place] [id number] 07 Aug, 2013 [facility] [address] [id number] [address] [place] [id number] Aug, 2013 [facility] [address] [id number] [address] [place] [id number] Aug, 2013 [facility] [address] [id number] [address] [place] [id number] 07 Aug, 2013 [facility] [address] [id number] [address] [place] [id number] 30 Jul, 2013 [facility] [address] [id number] [address] [place] [id number] 30 Jul, 2013 [facility] [address] [id number] [address] [place] [id number] 29 Jul, 2013 [facility] [address] [id number] [address] [place] [id number] 29 Jul, 2013 [facility] [address] [id number] [facility] [place] [address] 19 Jul, 2013 [facility] [address] [id number] [facility] [place] [address] 19 Jul, 2013 [facility] [address] [id number] [facility] [place] [address] 18 Jul, 2013 [facility] [address] [id number] [facility] [place] [address] 18 Jul, 2013 [facility] [address] [id number] [facility] [place] [address] 17 Jul, 2013 [facility] [address] [id number] [address] [place] [address], [place] [address] 17 Jul, 2013 [facility] [address] [id number] [address] [place] [address], [place] [address] 10 Jul, 2013 [facility] [address] [id number] [address] [place] [address], [place] [address] 10 Jul, 2013 [facility] [address] [id number] [address] [place] [address], [place] [address] Jun, [facility] [address] [id number] [address] [place] [address], [place] [address] Jun, [facility] [address] [id number] [address] [place] [address], [place] [address] Jun, [facility] [address] [id number] [address] [place] [address], [place] [address] Jun, [facility] [address] [id number] [address] [place] [address], [place] [address] Jun, [facility] [address] [id number] [address] [place] [address], [place] [address] Jun, [facility] [address] [id number] [address] [place] [address], [place] [id number] Jun, [facility] [address] [id number] [address] [place], [place] [address] [address] Jun, [facility] [address] [id number] [address] [place] [id number] Jun, [facility] [address] [id number] [address] [place] [id number] Jun, [facility] [address] [id number] [address] [place] [id number] Jun, [facility] [address] [id number] [address] [place] [id number] Jun, [facility] [address] [id number] [address] [place] [id number] May, [facility] [address] [id number] [address] [place] [id number] May, [facility] [address] [facility] [id number] [address] [place] [id number] May, IMMUNIZATIONS No Known Immunizations SOCIAL HISTORY [...]
--- OUTSIDE RECORDS SUMMARY | 2020-05-03 14:41 | XMS REPORT ---
Author Author Tracee AVILA Organization [facility] Address [address] [place] [address] Care Team Providers Care Finished Cigar Maker Name Role Phone SARAI AVILA Unavailable PROBLEMS Type Condition ICD9-CM Code [id number] Code Onset Dates Condition S tatus SNOMED Code Problem Primary insomnia F51.01 Active 397 2004 Problem Breast pain N64.4 Active 21677589 Problem History of renal transplant Z94.0 Ac tive 922955818 Problem Violation of controlled substance agreement Z91.14 Active 713238568 Problem Mild intermittent asthma without complication J45. 20 Active 337936737 Problem Screening breast examination Z12.39 A ctive 590160411 Problem Irritable bowel syndrome without diarrhea K58.9 Active 88239265 Problem Irritable bowel syndrome with diarrhea K58.0 Active 912875262 ALLERGIES No Information ENCOUNTERS Encounter Location Date Diagnosis [facility] [address] [id number] [place] [address] [id number] March, Dental examination Z01.20 [facility] [address] [id number] [address] [place] [address] [id number] Feb, Caries K02.9 [facility] [address] [id number] [address] [place] [address] [id number] Feb, Caries K02.9 [facility] [address] [id number] [address] [place] [address] [id number] Jan, [facility] [address] [id number] [address] [place] [address] [id number] Jan, Caries K02.9 [facility] [address] [id number] [address] [place] [address] [id number] Dec, [facility] [address] [id number] [address] [place] [address] [id number] 18 Dec, 2018 Dental examination Z01.20 an d Caries K02.9 [place] [address] [id number] 14 Sep, 2016 Dental examination Z01.20 [place] [address] [place] [id number] [address] [place] [address] 08 Jan, 2016 Nausea R11.0 ; Irritable bow el syndrome without diarrhea K58.9 and History of renal transplant Z94.0 [place] [address] [address] 2015 [place] [address] [id number] 11 Dec, 2015 Breast pain N64.4 ; Screenin g breast examination Z12.39 and Mild intermittent asthma without complication J45.20 [place] [address] [id number] 10 Dec, 2015 [place] [address] [id number] 09 Dec, 2015 Kidney transplant status Z94 .0 ; Personal history of immunosupression therapy Z92.25 ; Recurrent UTI N39.0 and Encounter for screening, unspecified Z13.9 [place] [address] [place] [id number] [address] [place] [address] Oct, [place] [address] [place] [id number] [address] [place] [address] Oct, [place] [address] [place] [id number] [address] [place] [phone] Oct, [place] [address] [address] Oct, Hiatal hernia K44.9 and Atyp ical chest pain R07.89 [place] [address] [place] [id number] [address] [place] [address] Oct, [place] [address] [id number] [address] [place] [address] Sep, Kidney replaced by transplan t V42.0 and Bilateral low back pain with sciatica, sciatica laterality unspecified M54.40 [facility] [address] [id number] [address] [place] [address] Sep, [facility] [address] [id number] [address] [place] [address] Sep, Kidney replaced by transplan t V42.0 ; Bilateral low back pain with sciatica, sciatica laterality unspecified M54.40 ; Anxiety F41.9 and Primary insomnia F51.01 [facility] [address] [id number] [address] [place] [address] Aug, [facility] [address] [id number] [address] [place] [address] Aug, [facility] [address] [id number] [address] [place] [address] Aug, Kidney transplant status Z94 .0 ; Personal history of immunosupression therapy Z92.25 ; Recurrent urinary tract infection N39.0 and Screening Z13.9 [facility] [address] [id number] [address] [place] [address] Aug, [facility] [address] [id number] [address] [place] [address] Aug, Encounter for aftercare foll owing kidney transplant Z48.22 ; Chronic radicular pain of lower back M54.16 and PND (post-nasal drip) R09.82 [facility] [address] [id number] [address] [place] [address] Jul, [facility] [address] [id number] [address] [place] [address] Jul, [facility] [address] [id number] [address] [place] [address] Jul, [facility] [address] [id number] [address] [place] [address] Jul, Kidney replaced by transplan t V42.0 ; Depressive disorder, not elsewhere classified 311 ; Anxiety state, unspecified 300.00 ; Insomnia, unspecified 780.52 ; Irritable bowel syndrome 564.1 ; Chronic lumbar pain 724.2 and GERD (gastroesophageal reflux disease) 530.81 [facility] [address] [id number] [address] [place] [address] Jul, [facility] [address] [id number] [address] [place] [address] Jun, [facility] [address] [id number] [address] [place] [address] Jun, [facility] [address] [facility] [id number] [address] [place] [address] Jun, [facility] [address] [facility] [id number] [address] [place] [address] Jun, Kidney replaced by transplan t V42.0 [facility] [address] [facility] [id number] [address] [place] [address] May, [facility] [address] [facility] [id number] [address] [place] [address] May, Depression with anxiety 300. 4 and Skin infection 686.9 [facility] [address] [facility] [id number] [address] [place] [address] May, [facility] [address] [id number] [address] [place] [address] May, Kidney replaced by transplan t V42.0 ; Recurrent UTI (urinary tract infection) 599.0 and Absence of menstruation 626.0 [facility] [address] [facility] [id number] [address] [place] [address] May, [facility] [address] [facility] [id number] [address] [place] [address] May, Depression with anxiety 300. 4 [place] [address] [place] [id number] [address] [place] [address] May, [facility] [address] [place] [id number] [address] [place] [address] Apr, [facility] [address] [place] [id number] [address] [place] [address] Apr, [facility] [address] [place] [id number] [address] [place] [address] Apr, Depression, major, recurrent , mild 296.31 [facility] [address] [place] [id number] [address] [place] [address] Apr, Depression, major, recurrent , mild 296.31 [place] [address] [place] [id number] [address] [place] [address] Apr, Cervicalgia 723.1 ; Lumbago 724.2 ; Anxiety state, unspecified 300.00 ; Nausea 787.02 ; 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 ; Recurrent UTI (urinary tract infection) 599.0 and Knee pain, bilateral 719.46 [place] [address] [place] [id number] [address] [place] [address] March, Depression, major, recurrent , mild 296.31 [facility] [address] [place] [id number] [address] [place] [address] March, [facility] [address] [place] [id number] [address] [place] [address] March, [facility] [address] [place] [id number] [address] [place] [address] March, Lumbago 724.2 ; Insomnia, un specified 780.52 ; Depressive disorder, not elsewhere classified 311 ; 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 ; Anxiety 300.00 ; Allergic rhinitis 477.9 and GERD (gastroesophageal reflux disease) 530.81 [facility] [address] [place] [id number] [address] [place] [address] Feb, [facility] [address] [id number] [address] [place] [address], [place] [address] Feb, [facility] [address] [id number] [address] [place] [address], [place] [address] Jan, [facility] [address] [id number] [address] [place] [address], [place] [address] Jan, [facility] [address] [id number] [address] [place] [address], [place] [address] Jan, [facility] [address] [id number] [address] [place] [address], [place] [address] Jan, [facility] [address] [id number] [address] [place] [address], [place] [address] Dec, [facility] [address] [id number] [address] [place] [address], [place] [address] Dec, [facility] [address] [id number] [address] [place] [address], [place] [address] Dec, [facility] [address] [id number] [address] [place] [address], [place] [address] Dec, [facility] [address] [id number] [address] [place] [address], [place] [address] Dec, [facility] [address] [id number] [address] [place] [address], [place] [address] Dec, [facility] [address] [id number] [address] [place] [address], [place] [address] Dec, [facility] [address] [id number] [address] [place] [address], [place] [address] Nov, [facility] [address] [id number] [address] [place] [address], [place] [address] Nov, [facility] [address] [id number] [address] [place] [address], [place] [address] Nov, [facility] [address] [id number] [address] [place] [address] [address] Nov, [facility] [address] [id number] [address] [place] [address], [place] [address] Nov, [facility] [address] [id number] [address] [place] [address], [place] [address] Nov, [facility] [address] [id number] [address] [place] [address], [place] [address] Nov, [facility] [address] [id number] [address] [place] [address], [place] [address] Nov, [facility] [address] [id number] [address] [place] [address], [place] [address] Nov, [facility] [address] [id number] [address] [place] [address], [place] [address] Nov, [facility] [address] [id number] [address] [place] [address], [place] [address] Nov, [facility] [address] [id number] [address] [place] [address], [place] [address] Nov, [facility] [address] [id number] [address] [place] [address], [place] [address] Nov, [facility] [address] [id number] [address] [place] [address], [place] [address] Nov, [facility] [address] [id number] [address] [place] [address], [place] [address] Nov, [facility] [address] [id number] [address] [place] [address], [place] [address] Nov, [facility] [address] [id number] [address] [place] [address], [place] [address] Nov, [facility] [address] [id number] [address] [place] [address], [place] [address] Nov, [facility] [address] [id number] [address] [place] [address], [place] [address] Nov, [facility] [address] [id number] [address] [place] [address], [place] [address] Nov, [facility] [address] [id number] [address] [place] [address], [place] [address] Nov, [facility] [address] [id number] [address] [place] [address], [place] [address] Nov, [facility] [address] [id number] [address] [place] [address], [place] [address] Nov, [facility] [address] [id number] [address] [place] [address], [place] [address] Nov, [facility] [address] [id number] [address] [place] [address], [place] [address] Nov, [facility] [address] [id number] [address] [place] [address], [place] [address] Nov, [facility] [address] [id number] [address] [place] [address], [place] [address] Nov, [facility] [address] [id number] [address] [place] [address], [place] [address] Nov, [facility] [address] [id number] [address] [place] [address], [place] [address] Nov, [facility] [address] [id number] [address] [place] [address], [place] [address] Oct, [facility] [address] [id number] [address] [place] [address], [place] [address] Oct, [facility] [address] [id number] [address] [place] [address], [place] [address] Oct, [facility] [address] [id number] [address] [place] [address], [place] [address] Oct, [facility] [address] [id number] [address] [place] [address], [place] [address] Oct, [facility] [address] [id number] [address] [place] [address], [place] [address] Oct, [facility] [address] [id number] [address] [place] [address], [place] [address] Oct, [facility] [address] [id number] [address] [place] [address], [place] [address] Oct, [facility] [address] [id number] [address] [place] [address], [place] [address] Oct, [facility] [address] [id number] [address] [place] [address], [place] [address] Oct, [facility] [address] [id number] [address] [place] [address], [place] [address] Oct, [facility] [address] [id number] [address] [place] [address], [place] [address] Oct, [facility] [address] [id number] [address] [place] [address], [place] [address] Oct, [facility] [address] [id number] [address] [place] [address], [place] [address] Oct, [facility] [address] [id number] [address] [place] [address], [place] [address] Oct, [facility] [address] [id number] [address] [place] [address], [place] [address] Oct, [facility] [address] [id number] [address] [place] [address], [place] [address] Oct, [facility] [address] [id number] [address] [place] [address], [place] [address] Oct, [facility] [address] [id number] [address] [place] [address], [place] [address] Oct, [facility] [address] [id number] [address] [place] [address], [place] [address] 05 Oct, 2014 [facility] [address] [id number] [address] [place] [address], [place] [address] 05 Oct, 2014 [facility] [address] [id number] [address] [place] [address], [place] [address] Oct, [facility] [address] [id number] [address] [place] [address], [place] [address] Oct, [facility] [address] [id number] [address] [place] [address], [place] [address] Sep, [facility] [address] [id number] [address] [place] [address], [place] [address] Sep, [facility] [address] [id number] [address] [place] [address], [place] [address] Sep, [facility] [address] [id number] [address] [place] [address], [place] [address] Sep, [facility] [address] [id number] [address] [place] [address], [place] [address] Sep, [facility] [address] [id number] [address] [place] [address], [place] [address] Sep, [facility] [address] [id number] [address] [place] [address], [place] [address] Sep, [facility] [address] [id number] [address] [place] [address], [place] [address] Sep, [facility] [address] [id number] [address] [place] [address], [place] [address] Sep, [facility] [address] [id number] [address] [place] [address], [place] [address] Sep, [facility] [address] [id number] [address] [place] [address], [place] [address] Sep, [facility] [address] [id number] [address] [place] [address], [place] [address] Sep, [facility] [address] [id number] [address] [place] [address], [place] [address] Sep, [facility] [address] [id number] [address] [place] [address], [place] [address] Sep, [facility] [address] [id number] [address] [place] [address], [place] [address] Sep, [facility] [address] [id number] [address] [place] [address], [place] [address] Sep, [facility] [address] [id number] [address] [place] [address], [place] [address] Sep, [facility] [address] [id number] [address] [place] [address], [place] [address] Sep, [facility] [address] [id number] [address] [place] [address], [place] [address] Sep, [facility] [address] [id number] [address] [place] [address], [place] [address] Sep, [facility] [address] [id number] [address] [place] [address], [place] [address] Sep, [facility] [address] [id number] [address] [place] [address], [place] [address] Sep, [facility] [address] [id number] [address] [place] [address], [place] [address] Sep, [facility] [address] [id number] [address] [place] [address], [place] [address] Sep, [facility] [address] [id number] [address] [place] [address], [place] [address] Sep, [facility] [address] [id number] [address] [place] [address], [place] [address] Sep, [facility] [address] [id number] [address] [place] [address], [place] [address] Sep, [facility] [address] [id number] [address] [place] [address], [place] [address] Sep, [facility] [address] [id number] [address] [place] [address], [place] [address] Aug, [facility] [address] [id number] [address] [place] [address], [place] [address] Aug, [facility] [address] [id number] [address] [place] [address], [place] [address] Aug, [facility] [address] [id number] [address] [place] [address], [place] [address] Aug, [facility] [address] [id number] [address] [place] [address], [place] [address] Aug, [facility] [address] [id number] [address] [place] [address], [place] [address] Aug, [facility] [address] [id number] [address] [place] [address], [place] [address] Aug, [facility] [address] [id number] [address] [place] [address], [place] [address] Aug, [facility] [address] [id number] [address] [place] [address], [place] [address] Aug, [facility] [address] [id number] [address] [place] [address], [place] [address] Aug, [facility] [address] [id number] [address] [place] [address], [place] [address] Aug, [facility] [address] [id number] [address] [place] [address] Aug, [facility] [address] [id number] [address] [place] [id number] Aug, [facility] [address] [id number] [address] [place] [address] Aug, [facility] [address] [id number] [address] [place] [address], [place] [address] Aug, [facility] [address] [id number] [address] [place] [address], [place] [address] Aug, [facility] [address] [id number] [address] [place] [address] Aug, [facility] [address] [id number] [address] [place] [id number] 17 Aug, 2013 [facility] [address] [id number] [address] [place] [address], [place] [address] 14 Aug, 2013 [facility] [address] [id number] [address] [place] [id number] 14 Aug, 2013 [facility] [address] [id number] [address] [place] [address], [place] [address] 09 Aug, 2013 [facility] [address] [id number] [address] [place] [id number] 09 Aug, 2013 [facility] [address] [id number] [address] [place] [address], [place] [address] Aug, 2013 [facility] [address] [id number] [address] [place] [address], [place] [address] Aug, 2013 [facility] [address] [id number] [address] [place] [id number] 08 Aug, 2013 [facility] [address] [id number] [address] [place] [id number] 07 Aug, 2013 [facility] [address] [id number] [address] [place] [address] Aug, 2013 [facility] [address] [id number] [address] [place] [address] Aug, 2013 [facility] [address] [id number] [address] [place] [id number] 07 Aug, 2013 [facility] [address] [id number] [address] [place] [id number] 30 Jul, 2013 [facility] [address] [id number] [address] [place] [id number] 30 Jul, 2013 [facility] [address] [id number] [address] [place] [id number] 29 Jul, 2013 [facility] [address] [id number] [address] [place] [id number] 29 Jul, 2013 [facility] [address] [id number] [facility] [place] [address] 19 Jul, 2013 [facility] [address] [id number] [facility] [place] [address] 19 Jul, 2013 [facility] [address] [id number] [facility] [place] [address] 18 Jul, 2013 [facility] [address] [id number] [facility] [place] [address] 18 Jul, 2013 [facility] [address] [id number] [address] [place] [address] 17 Jul, 2013 [facility] [address] [id number] [address] [place] [address], [place] [address] 17 Jul, 2013 [facility] [address] [id number] [address] [place] [address], [place] [address] 10 Jul, 2013 [facility] [address] [id number] [address] [place] [address], [place] [address] 10 Jul, 2013 [facility] [address] [id number] [address] [place] [address], [place] [address] Jun, [facility] [address] [id number] [address] [place] [address], [place] [address] Jun, [facility] [address] [id number] [address] [place] [address], [place] [address] Jun, [facility] [address] [address] [id number] [address] [place] [address], [place] [address] Jun, [facility] [address] [id number] [address] [place] [address], [place] [address] Jun, [facility] [address] [id number] [address] [place] [address], [place] [address] Jun, [facility] [address] [id number] [address] [place] [address], [place] [address] Jun, [facility] [address] [id number] [address] [place] [address] [address] Jun, [facility] [address] [id number] [address] [place] [id number] Jun, [facility] [address] [id number] [address] [place] [id number] Jun, [facility] [address] [id number] [address] [place] [id number] Jun, [facility] [address] [id number] [address] [place] [id number] Jun, [facility] [address] [id number] [address] [place] [id number] May, [facility] [address] [id number] [address] [place] [id number] May, [facility] [address] [facility] [id number] [address] [place] [id number] May, IMMUNIZATIONS No Known Immunizations SOCIAL HISTORY [...]
--- OUTSIDE RECORDS SUMMARY | 2020-05-03 14:41 | XMS REPORT ---
Author Author Tracee AVILA Organization [facility] Address [address] [place] [address] Care Team Providers Care Weatherseal Technician Name Role Phone SARAI AVILA Unavailable PROBLEMS Type Condition ICD9-CM Code [id number] Code Onset Dates Condition S tatus SNOMED Code Problem Primary insomnia F51.01 Active 397 2004 Problem Breast pain N64.4 Active 44263592 Problem History of renal transplant Z94.0 Ac tive 617378470 Problem Violation of controlled substance agreement Z91.14 Active 507106742 Problem Mild intermittent asthma without complication J45. 20 Active 764898247 Problem Screening breast examination Z12.39 A ctive 774423730 Problem Irritable bowel syndrome without diarrhea K58.9 Active 96664914 Problem Irritable bowel syndrome with diarrhea K58.0 Active [id number] ALLERGIES No Information ENCOUNTERS Encounter Location Date Diagnosis [facility] [id number] [place] [address] [id number] March, Dental examination Z01.20 [facility] [address] [id number] [address] [place] [address] [id number] Feb, Caries K02.9 [facility] [address] [id number] [address] [place] [address] [id number] Feb, Caries K02.9 [facility] [address] [id number] [address] [place] [address] [id number] Jan, [facility] [address] [id number] [address] [place] [address] [id number] Jan, Caries K02.9 [facility] [address] [id number] [address] [place] [address] [id number] Dec, [facility] [address] [id number] [address] [place] [address] [id number] 18 Dec, 2018 Dental examination Z01.20 an d Caries K02.9 [place] [address] [address] 14 Sep, 2016 Dental examination Z01.20 [place] [address] [address] [place] [id number] [address] [place] [id number] 08 Jan, 2016 Nausea R11.0 ; Irritable bow el syndrome without diarrhea K58.9 and History of renal transplant Z94.0 [place] [address] [id number] 2015 [place] [address] [address] 11 Dec, 2015 Breast pain N64.4 ; Screenin g breast examination Z12.39 and Mild intermittent asthma without complication J45.20 [place] [address] [address] 10 Dec, 2015 [place] [address] [address] 09 Dec, 2015 Kidney transplant status Z94 .0 ; Personal history of immunosupression therapy Z92.25 ; Recurrent UTI N39.0 and Encounter for screening, unspecified Z13.9 [place] [address] [address] [place] [id number] [address] [place] [address] Oct, [place] [address] [address] [place] [id number] [address] [place] [address] Oct, [place] [address] [address] [place] [id number] [address] [place] [address] Oct, [place] [address] [address] Oct, Hiatal hernia K44.9 and Atyp ical chest pain R07.89 [place] [address] [address] [place] [id number] [address] [place] [address] Oct, [place] [address] [id number] [address] [place] [address] Sep, Kidney replaced by transplan t V42.0 and Bilateral low back pain with sciatica, sciatica laterality unspecified M54.40 [facility] [place] [address] [id number] [address] [place] [address] Sep, [facility] [place] [address] [id number] [address] [place] [address] Sep, Kidney replaced by transplan t V42.0 ; Bilateral low back pain with sciatica, sciatica laterality unspecified M54.40 ; Anxiety F41.9 and Primary insomnia F51.01 [facility] [place] [address] [id number] [address] [place] [id number] Aug, [facility] [place] [address] [id number] [address] [place] [id number] Aug, [facility] [place] [address] [id number] [address] [place] [address] Aug, Kidney transplant status Z94 .0 ; Personal history of immunosupression therapy Z92.25 ; Recurrent urinary tract infection N39.0 and Screening Z13.9 [facility] [place] [address] [id number] [address] [place] [id number] Aug, [facility] [place] [address] [id number] [address] [place] [phone] Aug, Encounter for aftercare foll owing kidney transplant Z48.22 ; Chronic radicular pain of lower back M54.16 and PND (post-nasal drip) R09.82 [facility] [place] [address] [id number] [address] [place] [phone] Jul, [facility] [place] [address] [id number] [address] [place] [address] Jul, [facility] [place] [address] [id number] [address] [place] [phone] Jul, [facility] [place] [address] [id number] [address] [place] [phone] Jul, Kidney replaced by transplan t V42.0 ; Depressive disorder, not elsewhere classified 311 ; Anxiety state, unspecified 300.00 ; Insomnia, unspecified 780.52 ; Irritable bowel syndrome 564.1 ; Chronic lumbar pain 724.2 and GERD (gastroesophageal reflux disease) 530.81 [facility] [place] [address] [id number] [address] [place] [address] Jul, [facility] [place] [address] [id number] [address] [place] [phone] Jun, [facility] [place] [address] [id number] [address] [place] [address] Jun, [facility] [place] [address] [facility] [facility] [id number] [address] [place] [phone] Jun, [facility] [place] [address] [facility] [address] [facility] [id number] [address] [place] [phone] Jun, Kidney replaced by transplan t V42.0 [facility] [place] [address] [address] [facility] [id number] [address] [place] [phone] May, [facility] [place] [address] [address] [facility] [id number] [address] [place] [phone] May, Depression with anxiety 300. 4 and Skin infection 686.9 [facility] [place] [address] [facility] [address] [facility] [id number] [address] [place] [phone] May, [facility] [place] [address] [id number] [address] [place] [phone] May, Kidney replaced by transplan t V42.0 ; Recurrent UTI (urinary tract infection) 599.0 and Absence of menstruation 626.0 [facility] [place] [address] [address] [facility] [id number] [address] [place] [phone] May, [facility] [place] [address] [facility] [address] [facility] [id number] [address] [place] [phone] May, Depression with anxiety 300. 4 [place] [address] [address] [place] [id number] [address] [place] [phone] May, [facility] [place] [address] [place] [id number] [address] [place] [phone] Apr, [facility] [place] [address] [place] [id number] [address] [place] [address] Apr, [facility] [place] [address] [place] [id number] [address] [place] [address] Apr, Depression, major, recurrent , mild 296.31 [facility] [place] [address] [place] [id number] [address] [place] [phone] Apr, Depression, major, recurrent , mild 296.31 [place] [address] [address] [place] [id number] [address] [place] [address] Apr, Cervicalgia 723.1 ; Lumbago 724.2 ; Anxiety state, unspecified 300.00 ; Nausea 787.02 ; 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 ; Recurrent UTI (urinary tract infection) 599.0 and Knee pain, bilateral 719.46 [place] [address] [address] [place] [id number] [address] [place] [phone] March, Depression, major, recurrent , mild 296.31 [facility] [place] [address] [place] [id number] [address] [place] [address] March, [facility] [place] [address] [place] [id number] [address] [place] [phone] March, [facility] [place] [address] [place] [id number] [address] [place] [address] March, Lumbago 724.2 ; Insomnia, un specified 780.52 ; Depressive disorder, not elsewhere classified 311 ; 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 ; Anxiety 300.00 ; Allergic rhinitis 477.9 and GERD (gastroesophageal reflux disease) 530.81 [facility] [place] [address] [place] [id number] [address] [place] [address] Feb, [facility] [place] [address] [id number] [address] [place] [address], [place] [address] Feb, [facility] [address] [id number] [address] [place] [address], [place] [address] Jan, [facility] [address] [id number] [address] [place] [address], [place] [address] Jan, [facility] [address] [id number] [address] [place] [address], [place] [address] Jan, [facility] [address] [id number] [address] [place] [address], [place] [address] Jan, [facility] [address] [id number] [address] [place] [address], [place] [address] Dec, [facility] [address] [id number] [address] [place] [address], [place] [address] Dec, [facility] [address] [id number] [address] [place] [address], [place] [address] Dec, [facility] [address] [id number] [address] [place] [address], [place] [address] Dec, [facility] [address] [id number] [address] [place] [address], [place] [address] Dec, [facility] [address] [id number] [address] [place] [address], [place] [address] Dec, [facility] [address] [id number] [address] [place] [address], [place] [address] Dec, [facility] [address] [id number] [address] [place] [address], [place] [address] Nov, [facility] [address] [id number] [address] [place] [address], [place] [address] Nov, [facility] [address] [id number] [address] [place] [address], [place] [address] Nov, [facility] [address] [id number] [address] [place] [address] [address] Nov, [facility] [address] [id number] [address] [place] [address], [place] [address] Nov, [facility] [address] [id number] [address] [place] [address], [place] [address] Nov, [facility] [address] [id number] [address] [place] [address], [place] [address] Nov, [facility] [address] [id number] [address] [place] [address], [place] [address] Nov, [facility] [address] [id number] [address] [place] [address], [place] [address] Nov, [facility] [address] [id number] [address] [place] [address], [place] [address] Nov, [facility] [address] [id number] [address] [place] [address], [place] [address] Nov, [facility] [address] [id number] [address] [place] [address], [place] [address] Nov, [facility] [address] [id number] [address] [place] [address], [place] [address] Nov, [facility] [address] [id number] [address] [place] [address], [place] [address] Nov, [facility] [address] [id number] [address] [place] [address], [place] [address] Nov, [facility] [address] [id number] [address] [place] [address], [place] [address] Nov, [facility] [address] [id number] [address] [place] [address], [place] [address] Nov, [facility] [address] [id number] [address] [place] [address], [place] [address] Nov, [facility] [address] [id number] [address] [place] [address], [place] [address] Nov, [facility] [address] [id number] [address] [place] [address], [place] [address] Nov, [facility] [address] [id number] [address] [place] [address], [place] [address] Nov, [facility] [address] [id number] [address] [place] [address], [place] [address] Nov, [facility] [address] [id number] [address] [place] [address], [place] [address] Nov, [facility] [address] [id number] [address] [place] [address], [place] [address] Nov, [facility] [address] [id number] [address] [place] [address], [place] [address] Nov, [facility] [address] [id number] [address] [place] [address], [place] [address] Nov, [facility] [address] [id number] [address] [place] [address], [place] [address] Nov, [facility] [address] [id number] [address] [place] [address], [place] [address] Nov, [facility] [address] [id number] [address] [place] [address], [place] [address] Nov, [facility] [address] [id number] [address] [place] [address], [place] [address] Oct, [facility] [address] [id number] [address] [place] [address], [place] [address] Oct, [facility] [address] [id number] [address] [place] [address], [place] [address] Oct, [facility] [address] [id number] [address] [place] [address], [place] [address] Oct, [facility] [address] [id number] [address] [place] [address], [place] [address] Oct, [facility] [address] [id number] [address] [place] [address], [place] [address] Oct, [facility] [address] [id number] [address] [place] [address], [place] [address] Oct, [facility] [address] [id number] [address] [place] [address], [place] [address] Oct, [facility] [address] [id number] [address] [place] [address], [place] [address] Oct, [facility] [address] [id number] [address] [place] [address], [place] [address] Oct, [facility] [address] [id number] [address] [place] [address], [place] [address] Oct, [facility] [address] [id number] [address] [place] [address], [place] [address] Oct, [facility] [address] [id number] [address] [place] [address], [place] [address] Oct, [facility] [address] [id number] [address] [place] [address], [place] [address] Oct, [facility] [address] [id number] [address] [place] [address], [place] [address] Oct, [facility] [address] [id number] [address] [place] [address], [place] [address] Oct, [facility] [address] [id number] [address] [place] [address], [place] [address] Oct, [facility] [address] [id number] [address] [place] [address], [place] [address] Oct, [facility] [address] [id number] [address] [place] [address], [place] [address] Oct, [facility] [address] [id number] [address] [place] [address], [place] [address] 05 Oct, 2014 [facility] [address] [id number] [address] [place] [address], [place] [address] 05 Oct, 2014 [facility] [address] [id number] [address] [place] [address], [place] [address] Oct, [facility] [address] [id number] [address] [place] [address], [place] [address] Oct, [facility] [address] [id number] [address] [place] [address], [place] [address] Sep, [facility] [address] [id number] [address] [place] [address], [place] [address] Sep, [facility] [address] [id number] [address] [place] [address], [place] [address] Sep, [facility] [address] [id number] [address] [place] [address], [place] [address] Sep, [facility] [address] [id number] [address] [place] [address], [place] [address] Sep, [facility] [address] [id number] [address] [place] [address], [place] [address] Sep, [facility] [address] [id number] [address] [place] [address], [place] [address] Sep, [facility] [address] [id number] [address] [place] [address], [place] [address] Sep, [facility] [address] [id number] [address] [place] [address], [place] [address] Sep, [facility] [address] [id number] [address] [place] [address], [place] [address] Sep, [facility] [address] [id number] [address] [place] [address], [place] [address] Sep, [facility] [address] [id number] [address] [place] [address], [place] [address] Sep, [facility] [address] [id number] [address] [place] [address], [place] [address] Sep, [facility] [address] [id number] [address] [place] [address], [place] [address] Sep, [facility] [address] [id number] [address] [place] [address], [place] [address] Sep, [facility] [address] [id number] [address] [place] [address], [place] [address] Sep, [facility] [address] [id number] [address] [place] [address], [place] [address] Sep, [facility] [address] [id number] [address] [place] [address], [place] [address] Sep, [facility] [address] [id number] [address] [place] [address], [place] [address] Sep, [facility] [address] [id number] [address] [place] [address], [place] [address] Sep, [facility] [address] [id number] [address] [place] [address], [place] [address] Sep, [facility] [address] [id number] [address] [place] [address], [place] [address] Sep, [facility] [address] [id number] [address] [place] [address], [place] [address] Sep, [facility] [address] [id number] [address] [place] [address], [place] [address] Sep, [facility] [address] [id number] [address] [place] [address], [place] [address] Sep, [facility] [address] [id number] [address] [place] [address], [place] [address] Sep, [facility] [address] [id number] [address] [place] [address], [place] [address] Sep, [facility] [address] [id number] [address] [place] [address], [place] [address] Sep, [facility] [address] [id number] [address] [place] [address], [place] [address] Aug, [facility] [address] [id number] [address] [place] [address], [place] [address] Aug, [facility] [address] [id number] [address] [place] [address], [place] [address] Aug, [facility] [address] [id number] [address] [place] [address], [place] [address] Aug, [facility] [address] [id number] [address] [place] [address], [place] [address] Aug, [facility] [address] [id number] [address] [place] [address], [place] [address] Aug, [facility] [address] [id number] [address] [place] [address], [place] [address] Aug, [facility] [address] [id number] [address] [place] [address], [place] [address] Aug, [facility] [address] [id number] [address] [place] [address], [place] [address] Aug, [facility] [address] [id number] [address] [place] [address], [place] [address] Aug, [facility] [address] [id number] [address] [place] [address], [place] [address] Aug, [facility] [address] [id number] [address] [place] [address] Aug, [facility] [address] [id number] [address] [place] [id number] Aug, [facility] [address] [id number] [address] [place] [id number] Aug, [facility] [address] [id number] [address] [place] [address], [place] [address] Aug, [facility] [address] [id number] [address] [place] [address], [place] [address] Aug, [facility] [address] [id number] [address] [place] [id number] Aug, [facility] [address] [id number] [address] [place] [id number] 17 Aug, 2013 [facility] [address] [id number] [address] [place] [address], [place] [address] 14 Aug, 2013 [facility] [address] [id number] [address] [place] [id number] 14 Aug, 2013 [facility] [address] [id number] [address] [place] [address], [place] [address] 09 Aug, 2013 [facility] [address] [id number] [address] [place] [id number] 09 Aug, 2013 [facility] [address] [id number] [address] [place] [address], [place] [address] Aug, 2013 [facility] [address] [id number] [address] [place] [address], [place] [address] Aug, 2013 [facility] [address] [id number] [address] [place] [id number] 08 Aug, 2013 [facility] [address] [id number] [address] [place] [id number] 07 Aug, 2013 [facility] [address] [id number] [address] [place] [address] Aug, 2013 [facility] [address] [id number] [address] [place] [id number] Aug, 2013 [facility] [address] [id number] [address] [place] [id number] 07 Aug, 2013 [facility] [address] [id number] [address] [place] [id number] 30 Jul, 2013 [facility] [address] [id number] [address] [place] [id number] 30 Jul, 2013 [facility] [address] [id number] [address] [place] [id number] 29 Jul, 2013 [facility] [address] [id number] [address] [place] [id number] 29 Jul, 2013 [facility] [address] [id number] [address] [place] [address] 19 Jul, 2013 [facility] [address] [id number] [address] [place] [address] 19 Jul, 2013 [facility] [address] [id number] [address] [place] [address] 18 Jul, 2013 [facility] [address] [id number] [address] [place] [address] 18 Jul, 2013 [facility] [address] [id number] [address] [place] [address] 17 Jul, 2013 [facility] [address] [id number] [address] [place] [address], [place] [address] 17 Jul, 2013 [facility] [address] [id number] [address] [place] [address], [place] [address] 10 Jul, 2013 [facility] [address] [id number] [address] [place] [address], [place] [address] 10 Jul, 2013 [facility] [address] [id number] [address] [place] [address], [place] [address] Jun, [facility] [address] [id number] [address] [place] [address], [place] [address] Jun, [facility] [address] [id number] [address] [place] [address], [place] [address] Jun, [facility] [address] [id number] [address] [place] [address], [place] [address] Jun, [facility] [address] [id number] [address] [place] [address], [place] [address] Jun, [facility] [address] [id number] [address] [place] [address], [place] [address] Jun, [facility] [address] [id number] [address] [place] [address], [place] [address] Jun, [facility] [address] [id number] [address] [place] [address] [address] Jun, [facility] [place] [address] [id number] [address] [place] [id number] Jun, [facility] [place] [address] [id number] [address] [place] [id number] Jun, [facility] [place] [address] [id number] [address] [place] [id number] Jun, [facility] [place] [address] [id number] [address] [place] [id number] Jun, [facility] [place] [address] [id number] [address] [place] [phone] May, [facility] [place] [address] [id number] [address] [place] [phone] May, [facility] [place] [address] [facility] [id number] [address] [place] [phone] May, IMMUNIZATIONS No Known Immunizations SOCIAL HISTORY [...]
--- OUTSIDE RECORDS SUMMARY | 2020-05-03 14:42 | XMS REPORT ---
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 20 Active 563063790 Problem Screening breast examination Z12.39 A ctive 630764813 Problem Irritable bowel syndrome without diarrhea K58.9 Active 68468476 Problem Irritable bowel syndrome with diarrhea K58.0 Active 315026081 ALLERGIES No Information ENCOUNTERS Encounter Location Date Diagnosis [facility] [id number] [place] [address] [id number] Feb, Caries K02.9 [facility] [address] [facility] [id number] [place] [address] [id number] Feb, Caries K02.9 [facility] [id number] [place] [address] [id number] Jan, [facility] [address] [facility] [id number] [place] [address] [id number] Jan, Caries K02.9 [facility] [address] [facility] [id number] [address] [place] [address] [id number] Dec, [facility] [address] [facility] [id number] [place] [address] [id number] 18 Dec, 2018 Dental examination Z01.20 an d Caries K02.9 [facility] [address] [id number] [address] [place] [address] Sep, Dental examination Z01.20 [place] [address] [facility] [id number] [address] [place] [address] 08 Jan, 2016 Nausea R11.0 ; Irritable bow el syndrome without diarrhea K58.9 and History of renal transplant Z94.0 [place] [address] [facility] [id number] [address] [place] [address] 2015 [place] [address] [place] [id number] [place] [address] 11 Dec, 2015 Breast pain N64.4 ; Screenin g breast examination Z12.39 and Mild intermittent asthma without complication J45.20 [place] [address] [address] 10 Dec, 2015 [place] [address] [place] [id number] [place] [address] 09 Dec, 2015 Kidney transplant status Z94 .0 ; Personal history of immunosupression therapy Z92.25 ; Recurrent UTI N39.0 and Encounter for screening, unspecified Z13.9 [place] [id number] [place] [address] Oct, [place] [address] [address] Oct, [place] [address] [place] [id number] [place] [address] Oct, [place] [address] [place] [id number] [address] [place] [address] Oct, Hiatal hernia K44.9 and Atyp ical chest pain R07.89 [place] [address] [place] [id number] [address] [place] [address] Oct, [place] [address] [place] [id number] [address] [place] [address] Sep, Kidney replaced by transplan t V42.0 and Bilateral low back pain with sciatica, sciatica laterality unspecified M54.40 [place] [address] [place] [address] Sep, [facility] [address] [id number] [address] [place] [address] Sep, Kidney replaced by transplan t V42.0 ; Bilateral low back pain with sciatica, sciatica laterality unspecified M54.40 ; Anxiety F41.9 and Primary insomnia F51.01 [facility] [address] [facility] [id number] [address] [place] [address] Aug, [facility] [address] [facility] [id number] [address] [place] [address] Aug, [facility] [address] [facility] [id number] [address] [place] [address] Aug, Kidney transplant status Z94 .0 ; Personal history of immunosupression therapy Z92.25 ; Recurrent urinary tract infection N39.0 and Screening Z13.9 [facility] [address] [facility] [id number] [address] [place] [address] Aug, [facility] [address] [facility] [id number] [address] [place] [address] Aug, Encounter for aftercare foll owing kidney transplant Z48.22 ; Chronic radicular pain of lower back M54.16 and PND (post-nasal drip) R09.82 [facility] [address] [facility] [id number] [address] [place] [address] Jul, [facility] [address] [facility] [id number] [address] [place] [address] Jul, [facility] [address] [facility] [id number] [address] [place] [address] Jul, [facility] [address] [facility] [id number] [address] [place] [address] Jul, Kidney replaced by transplan t V42.0 ; Depressive disorder, not elsewhere classified 311 ; Anxiety state, unspecified 300.00 ; Insomnia, unspecified 780.52 ; Irritable bowel syndrome 564.1 ; Chronic lumbar pain 724.2 and GERD (gastroesophageal reflux disease) 530.81 [facility] [address] [facility] [id number] [address] [place] [address] Jul, [facility] [address] [id number] [address] [place] [address] Jun, [facility] [address] [facility] [id number] [address] [place] [address] Jun, [facility] [address] [id number] [address] [place] [address] Jun, [facility] [address] [id number] [address] [place] [address] Jun, Kidney replaced by transplan t V42.0 [facility] [address] [facility] [id number] [address] [place] [address] May, [facility] [address] [facility] [id number] [address] [place] [address] May, Depression with anxiety 300. 4 and Skin infection 686.9 [facility] [address] [facility] [id number] [address] [place] [address] May, [facility] [address] [facility] [id number] [address] [place] [address] May, Kidney replaced by transplan t V42.0 ; Recurrent UTI (urinary tract infection) 599.0 and Absence of menstruation 626.0 [facility] [address] [facility] [id number] [address] [place] [address] May, [facility] [address] [facility] [id number] [address] [place] [address] May, Depression with anxiety 300. 4 [facility] [address] [facility] [id number] [address] [place] [address] May, [facility] [address] [facility] [id number] [address] [place] [address] Apr, [facility] [address] [place] [place] [id number] [address] [place] [address] Apr, [facility] [address] [facility] [id number] [address] [place] [address] Apr, Depression, major, recurrent , mild 296.31 [facility] [address] [place] [id number] [address] [place] [address] Apr, Depression, major, recurrent , mild 296.31 [facility] [address] [place] [id number] [place] [address] Apr, Cervicalgia 723.1 ; Lumbago 724.2 ; Anxiety state, unspecified 300.00 ; Nausea 787.02 ; 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 ; Recurrent UTI (urinary tract infection) 599.0 and Knee pain, bilateral 719.[address] [address] March, Depression, major, recurrent , mild 296.31 [place] [address] [address] March, [address] [address] March, [place] [address] [place] [id number] [address] [place] [address] March, Lumbago 724.2 ; Insomnia, un specified 780.52 ; Depressive disorder, not elsewhere classified 311 ; 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 ; Anxiety 300.00 ; Allergic rhinitis 477.9 and GERD (gastroesophageal reflux disease) 530.81 [place] [address] [place] [id number] [address] [place] [address] Feb, [place] [id number] [place] [address] Feb, [place] [address] [place] [id number] [address] [place] [address] Jan, [place] [address] [place] [address] Jan, [facility] [address] [id number] [address] [place] [address], [place] [address] Jan, [facility] [address] [id number] [address] [place] [address], [place] [address] Jan, [facility] [address] [id number] [address] [place] [address], [place] [address] Dec, 2014 [facility] [address] [id number] [address] [place] [address], [place] [address] Dec, 2014 [facility] [address] [id number] [address] [place] [address], [place] [address] Dec, 2014 [facility] [address] [id number] [address] [place] [address], [place] [address] Dec, [facility] [address] [id number] [address] [place] [address], [place] [address] Dec, [facility] [address] [id number] [address] [place] [address], [place] [address] Dec, [facility] [address] [id number] [address] [place] [address], [place] [address] Dec, [facility] [address] [id number] [address] [place] [address], [place] [address] Nov, [facility] [address] [id number] [address] [place] [address], [place] [address] Nov, [facility] [address] [id number] [address] [place] [address], [place] [address] Nov, [facility] [address] [id number] [address] [place] [address], [place] [address] Nov, [facility] [address] [id number] [address] [place] [address], [place] [address] Nov, [facility] [address] [id number] [address] [place] [address], [place] [address] Nov, [facility] [address] [id number] [address] [place] [address], [place] [address] Nov, [facility] [address] [id number] [address] [place] [address], [place] [address] Nov, [facility] [address] [id number] [address] [place] [address], [place] [address] Nov, [facility] [address] [id number] [address] [place] [address], [place] [address] Nov, [facility] [address] [id number] [address] [place] [address], [place] [address] Nov, [facility] [address] [id number] [address] [place] [address], [place] [address] Nov, [facility] [address] [id number] [address] [place] [address], [place] [address] Nov, [facility] [address] [id number] [address] [place] [address], [place] [address] Nov, [facility] [address] [id number] [address] [place] [address], [place] [address] Nov, [facility] [address] [id number] [address] [place] [address], [place] [address] Nov, [facility] [address] [id number] [address] [place] [address], [place] [address] Nov, [facility] [address] [id number] [address] [place] [address], [place] [address] Nov, [facility] [address] [id number] [address] [place] [address], [place] [address] Nov, [facility] [address] [id number] [address] [place] [address], [place] [address] Nov, [facility] [address] [id number] [address] [place] [address], [place] [address] Nov, [facility] [address] [id number] [address] [place] [address] [place] [address] Nov, [facility] [address] [id number] [address] [place] [address], [place] [address] Nov, [facility] [address] [id number] [address] [place] [address], [place] [address] Nov, [facility] [address] [id number] [address] [place] [address], [place] [address] Nov, [facility] [address] [id number] [address] [place] [address], [place] [address] Nov, [facility] [address] [id number] [address] [place] [address], [place] [address] Nov, [facility] [address] [id number] [address] [place] [address], [place] [address] Nov, [facility] [address] [id number] [address] [place] [address], [place] [address] Nov, [facility] [address] [id number] [address] [place] [address], [place] [address] Oct, [facility] [address] [id number] [address] [place] [address], [place] [address] Oct, [facility] [address] [id number] [address] [place] [address], [place] [address] Oct, [facility] [address] [id number] [address] [place] [address], [place] [address] Oct, [facility] [address] [id number] [address] [place] [address], [place] [address] Oct, [facility] [address] [id number] [address] [place] [address], [place] [address] Oct, [facility] [address] [id number] [address] [place] [address], [place] [address] Oct, [facility] [address] [id number] [address] [place] [address], [place] [address] Oct, [facility] [address] [id number] [address] [place] [address], [place] [address] 24 Oct, 2014 [facility] [address] [id number] [address] [place] [address], [place] [address] Oct, [facility] [address] [id number] [address] [place] [address], [place] [address] Oct, [facility] [address] [id number] [address] [place] [address], [place] [address] Oct, [facility] [address] [id number] [address] [place] [address], [place] [address] 17 Oct, 2014 [facility] [address] [id number] [address] [place] [address], [place] [address] 17 Oct, 2014 [facility] [address] [id number] [address] [place] [address], [place] [address] 16 Oct, 2014 [facility] [address] [id number] [address] [place] [address], [place] [address] 16 Oct, 2014 [facility] [address] [id number] [address] [place] [address], [place] [address] 13 Oct, 2014 [facility] [address] [id number] [address] [place] [address], [place] [address] Oct, [facility] [address] [id number] [address] [place] [address], [place] [address] Oct, [facility] [address] [id number] [address] [place] [address], [place] [address] 05 Oct, 2014 [facility] [address] [id number] [address] [place] [address], [place] [address] 05 Oct, 2014 [facility] [address] [id number] [address] [place] [address], [place] [address] Oct, [facility] [address] [id number] [address] [place] [address], [place] [address] Oct, [facility] [address] [id number] [address] [place] [address], [place] [address] Sep, [facility] [address] [id number] [address] [place] [address], [place] [address] Sep, [facility] [address] [id number] [address] [place] [address], [place] [address] Sep, [facility] [address] [id number] [address] [place] [address], [place] [address] Sep, [facility] [address] [id number] [address] [place] [address], [place] [address] Sep, [facility] [address] [id number] [address] [place] [address], [place] [address] Sep, [facility] [address] [id number] [address] [place] [address], [place] [address] Sep, [facility] [address] [id number] [address] [place] [address], [place] [address] Sep, [facility] [address] [id number] [address] [place] [address], [place] [address] Sep, [facility] [address] [id number] [address] [place] [address], [place] [address] Sep, [facility] [address] [id number] [address] [place] [address], [place] [address] Sep, [facility] [address] [id number] [address] [place] [address] Sep, [facility] [address] [id number] [address] [place] [address] Sep, [facility] [address] [id number] [address] [place] [address], [place] [address] Sep, [facility] [address] [id number] [address] [place] [address], [place] [address] Sep, [facility] [address] [id number] [address] [place] [address], [place] [address] Sep, [facility] [address] [id number] [address] [place] [address], [place] [address] Sep, [facility] [address] [id number] [address] [place] [address], [place] [address] Sep, [facility] [address] [id number] [address] [place] [address], [place] [address] Sep, [facility] [address] [id number] [address] [place] [address], [place] [address] Sep, [facility] [address] [id number] [address] [place] [address], [place] [address] Sep, [facility] [address] [id number] [address] [place] [address], [place] [address] Sep, [facility] [address] [id number] [address] [place] [address], [place] [address] Sep, [facility] [address] [id number] [address] [place] [address], [place] [address] Sep, [facility] [address] [id number] [address] [place] [address], [place] [address] Sep, [facility] [address] [id number] [address] [place] [address], [place] [address] Sep, [facility] [address] [id number] [address] [place] [address], [place] [address] Sep, [facility] [address] [id number] [address] [place] [address], [place] [address] Sep, [facility] [address] [id number] [address] [place] [address], [place] [address] Aug, [facility] [address] [id number] [address] [place] [address], [place] [address] Aug, [facility] [address] [id number] [address] [place] [address], [place] [address] Aug, [facility] [address] [id number] [address] [place] [address], [place] [address] Aug, [facility] [address] [id number] [address] [place] [address], [place] [address] Aug, [facility] [address] [id number] [address] [place] [address], [place] [address] Aug, [facility] [address] [id number] [address] [place] [address], [place] [address] Aug, [facility] [address] [id number] [address] [place] [address], [place] [address] Aug, [facility] [address] [id number] [address] [place] [address], [place] [address] Aug, [facility] [address] [id number] [address] [place] [address], [place] [address] Aug, [facility] [address] [id number] [address] [place] [address], [place] [address] Aug, [facility] [address] [id number] [address] [place] [address], [place] [address] Aug, [facility] [address] [id number] [address] [place] [address], [place] [address] Aug, [facility] [address] [id number] [address] [place] [address], [place] [address] Aug, [facility] [address] [id number] [address] [place] [address], [place] [address] Aug, [facility] [address] [id number] [address] [place] [address], [place] [address] Aug, 2013 [facility] [address] [id number] [address] [place] [address], [place] [address] Aug, [facility] [address] [id number] [address] [place] [address], [place] [address] 17 Aug, 2013 [facility] [address] [id number] [address] [place] [address], [place] [address] 14 Aug, 2014 [facility] [address] [id number] [address] [place] [id number] 14 Aug, 2013 [facility] [address] [id number] [address] [place] [address], [place] [address] 09 Aug, 2013 [facility] [address] [id number] [address] [place] [id number] Aug, 2013 [facility] [address] [id number] [address] [place] [id number] Aug, 2013 [facility] [address] [id number] [address] [place] [id number] Aug, 2013 [facility] [address] [id number] [address] [place] [address], [place] [address] 08 Aug, 2013 [facility] [address] [id number] [address] [place] [id number] Aug, 2013 [facility] [address] [id number] [address] [place] [id number] Aug, 2013 [facility] [address] [id number] [address] [place] [address] Aug, 2013 [facility] [address] [id number] [address] [place] [id number] Aug, 2013 [facility] [address] [id number] [address] [place] [id number] 30 Jul, 2013 [facility] [address] [id number] [address] [place] [id number] 30 Sep, 2013 [facility] [address] [id number] [address] [place] [id number] 29 Sep, 2013 [facility] [address] [id number] [address] [place] [id number] 29 Sep, 2013 [facility] [address] [id number] [address] [place] [id number] 19 Sep, 2013 [facility] [address] [id number] [address] [place] [id number] 19 Sep, 2013 [facility] [address] [id number] [address] [place] [address] 18 Jul, 2013 [facility] [address] [id number] [facility] [place] [address] 18 Jul, 2013 [facility] [address] [id number] [facility] [place] [address] 17 Jul, 2013 [facility] [address] [id number] [facility] [place] [address] 17 Jul, 2013 [facility] [address] [id number] [facility] [place] [address] 10 Jul, 2013 [facility] [address] [id number] [address] [place] [address], [place] [address] 10 Jul, 2014 [facility] [address] [id number] [address] [place] [address], [place] [address] Jun, [facility] [address] [id number] [address] [place] [address], [place] [address] Jun, [facility] [address] [id number] [address] [place] [address], [place] [address] Jun, [facility] [address] [id number] [address] [place] [address], [place] [address] Jun, [facility] [address] [id number] [address] [place] [address], [place] [address] Jun, [facility] [address] [id number] [address] [place] [address], [place] [id number] Jun, [facility] [address] [id number] [address] [place] [address], [place] [id number] Jun, [facility] [address] [id number] [address] [place] [address], [place] [id number] Jun, [facility] [address] [id number] [address] [place] [address], [place] [id number] Jun, [facility] [address] [id number] [address] [place] [address], [place] [address] Jun, [facility] [address] [facility] [id number] [address] [place] [id number] Jun, [facility] [address] [facility] [id number] [address] [place] [id number] Jun, [facility] [address] [facility] [id number] [address] [place] [id number] May, [facility] [address] [facility] [id number] [address] [place] [id number] May, [facility] [address] [facility] [id number] [address] [place] [id number] May, IMMUNIZATIONS No Known Immunizations SOCIAL HISTORY Never Assessed REASON FOR VISIT [facility] [place] CARE VITAL SIGNS MEDICATIONS Unknown [...]
--- OUTSIDE RECORDS SUMMARY | 2020-05-03 14:42 | XMS REPORT ---
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 20 Active 096388464 Problem Screening breast examination Z12.39 A ctive 042590770 Problem Irritable bowel syndrome without diarrhea K58.9 Active 27813083 Problem Irritable bowel syndrome with diarrhea K58.0 Active 795033129 ALLERGIES No Information ENCOUNTERS Encounter Location Date Diagnosis [facility] [id number] [place] [address] [id number] Feb, Caries K02.9 [facility] [address] [facility] [id number] [place] [address] [id number] Feb, Caries K02.9 [facility] [id number] [place] [address] [id number] Jan, [facility] [address] [facility] [id number] [place] [address] [id number] Jan, Caries K02.9 [facility] [address] [facility] [id number] [address] [place] [address] [id number] Dec, [facility] [address] [facility] [id number] [place] [address] [id number] Dec, Dental examination Z01.20 an d Caries K02.9 [facility] [address] [id number] [address] [place] [address] Sep, Dental examination Z01.20 [place] [address] [address] [facility] [id number] [address] [place] [id number] 08 Jan, 2016 Nausea R11.0 ; Irritable bow el syndrome without diarrhea K58.9 and History of renal transplant Z94.0 [place] [address] [address] [facility] [id number] [address] [place] [id number] 2015 [place] [address] [address] [place] [id number] [place] [phone] 11 Dec, 2015 Breast pain N64.4 ; Screenin g breast examination Z12.39 and Mild intermittent asthma without complication J45.20 [place] [address] [address] 10 Dec, 2015 [place] [address] [place] [id number] [place] [phone] 09 Dec, 2015 Kidney transplant status Z94 .0 ; Personal history of immunosupression therapy Z92.25 ; Recurrent UTI N39.0 and Encounter for screening, unspecified Z13.9 [place] [address] [place] [address] Oct, [place] [address] [address] Oct, [place] [address] [place] [id number] [place] [phone] Oct, [place] [address] [address] [place] [id number] [address] [place] [address] Oct, Hiatal hernia K44.9 and Atyp ical chest pain R07.89 [place] [address] [address] [place] [id number] [address] [place] [address] Oct, [place] [address] [address] [place] [id number] [address] [place] [address] Sep, Kidney replaced by transplan t V42.0 and Bilateral low back pain with sciatica, sciatica laterality unspecified M54.40 [place] [address] [place] [address] Sep, [facility] [address] [id number] [address] [place] [address] Sep, Kidney replaced by transplan t V42.0 ; Bilateral low back pain with sciatica, sciatica laterality unspecified M54.40 ; Anxiety F41.9 and Primary insomnia F51.01 [facility] [address] [facility] [id number] [address] [place] [address] Aug, [facility] [address] [facility] [id number] [address] [place] [address] Aug, [facility] [address] [facility] [id number] [address] [place] [address] Aug, Kidney transplant status Z94 .0 ; Personal history of immunosupression therapy Z92.25 ; Recurrent urinary tract infection N39.0 and Screening Z13.9 [facility] [address] [facility] [id number] [address] [place] [address] Aug, [facility] [address] [facility] [id number] [address] [place] [phone] Aug, Encounter for aftercare foll owing kidney transplant Z48.22 ; Chronic radicular pain of lower back M54.16 and PND (post-nasal drip) R09.82 [facility] [address] [facility] [id number] [address] [place] [address] Jul, [facility] [address] [facility] [id number] [address] [place] [address] Jul, [facility] [address] [facility] [id number] [address] [place] [address] Jul, [facility] [address] [facility] [id number] [address] [place] [address] Jul, Kidney replaced by transplan t V42.0 ; Depressive disorder, not elsewhere classified 311 ; Anxiety state, unspecified 300.00 ; Insomnia, unspecified 780.52 ; Irritable bowel syndrome 564.1 ; Chronic lumbar pain 724.2 and GERD (gastroesophageal reflux disease) 530.81 [facility] [address] [facility] [id number] [address] [place] [address] Jul, [facility] [address] [id number] [address] [place] [phone] Jun, [facility] [address] [facility] [id number] [address] [place] [address] Jun, [facility] [address] [id number] [address] [place] [address] Jun, [facility] [address] [id number] [address] [place] [address] Jun, Kidney replaced by transplan t V42.0 [facility] [address] [facility] [id number] [address] [place] [address] May, [facility] [address] [facility] [id number] [address] [place] [id number] May, Depression with anxiety 300. 4 and Skin infection 686.9 [facility] [address] [facility] [id number] [address] [place] [address] May, [facility] [address] [facility] [id number] [address] [place] [address] May, Kidney replaced by transplan t V42.0 ; Recurrent UTI (urinary tract infection) 599.0 and Absence of menstruation 626.0 [facility] [address] [facility] [id number] [address] [place] [address] May, [facility] [address] [facility] [id number] [address] [place] [address] May, Depression with anxiety 300. 4 [facility] [address] [facility] [id number] [address] [place] [address] May, [facility] [address] [facility] [id number] [address] [place] [address] Apr, [facility] [address] [place] [id number] [address] [place] [address] Apr, [facility] [address] [facility] [id number] [address] [place] [address] Apr, Depression, major, recurrent , mild 296.31 [facility] [address] [place] [id number] [address] [place] [address] Apr, Depression, major, recurrent , mild 296.31 [facility] [address] [place] [id number] [place] [address] Apr, Cervicalgia 723.1 ; Lumbago 724.2 ; Anxiety state, unspecified 300.00 ; Nausea 787.02 ; 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 ; Recurrent UTI (urinary tract infection) 599.0 and Knee pain, bilateral 719.[address] [address] March, Depression, major, recurrent , mild 296.31 [place] [address] [address] March, [address] [address] March, [place] [address] [address] [place] [id number] [address] [place] [address] March, Lumbago 724.2 ; Insomnia, un specified 780.52 ; Depressive disorder, not elsewhere classified 311 ; 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 ; Anxiety 300.00 ; Allergic rhinitis 477.9 and GERD (gastroesophageal reflux disease) 530.81 [place] [address] [address] [place] [id number] [address] [place] [phone] Feb, [place] [id number] [place] [phone] Feb, [place] [address] [address] [place] [id number] [address] [place] [id number] Jan, [place] [address] [place] [address] Jan, [facility] [address] [id number] [address] [place] [address], [place] [address] Jan, [facility] [address] [id number] [address] [place] [address], [place] [address] Jan, [facility] [address] [id number] [address] [place] [address], [place] [address] Dec, 2014 [facility] [address] [id number] [address] [place] [address], [place] [address] Dec, 2014 [facility] [address] [id number] [address] [place] [address], [place] [address] Dec, 2014 [facility] [address] [id number] [address] [place] [address], [place] [address] Dec, [facility] [address] [id number] [address] [place] [address], [place] [address] Dec, [facility] [address] [id number] [address] [place] [address], [place] [address] Dec, [facility] [address] [id number] [address] [place] [address], [place] [address] Dec, [facility] [address] [id number] [address] [place] [address], [place] [address] Nov, [facility] [address] [id number] [address] [place] [address], [place] [address] Nov, [facility] [address] [id number] [address] [place] [address], [place] [address] Nov, [facility] [address] [id number] [address] [place] [address], [place] [address] Nov, [facility] [address] [id number] [address] [place] [address], [place] [address] Nov, [facility] [address] [id number] [address] [place] [address], [place] [address] Nov, [facility] [address] [id number] [address] [place] [address], [place] [address] Nov, [facility] [address] [id number] [address] [place] [address], [place] [address] Nov, [facility] [address] [id number] [address] [place] [address], [place] [address] Nov, [facility] [address] [id number] [address] [place] [address], [place] [address] Nov, [facility] [address] [id number] [address] [place] [address], [place] [address] Nov, [facility] [address] [id number] [address] [place] [address], [place] [address] Nov, [facility] [address] [id number] [address] [place] [address], [place] [address] Nov, [facility] [address] [id number] [address] [place] [address], [place] [address] Nov, [facility] [address] [id number] [address] [place] [address], [place] [address] Nov, [facility] [address] [id number] [address] [place] [address], [place] [address] Nov, [facility] [address] [id number] [address] [place] [address], [place] [address] Nov, [facility] [address] [id number] [address] [place] [address], [place] [address] Nov, [facility] [address] [id number] [address] [place] [address], [place] [address] Nov, [facility] [address] [id number] [address] [place] [address], [place] [address] Nov, [facility] [address] [id number] [address] [place] [address], [place] [address] Nov, [facility] [address] [id number] [address] [place] [address] [place] [address] Nov, [facility] [address] [id number] [address] [place] [address], [place] [address] Nov, [facility] [address] [id number] [address] [place] [address], [place] [address] Nov, [facility] [address] [id number] [address] [place] [address], [place] [address] Nov, [facility] [address] [id number] [address] [place] [address], [place] [address] Nov, [facility] [address] [id number] [address] [place] [address], [place] [address] Nov, [facility] [address] [id number] [address] [place] [address], [place] [address] Nov, [facility] [address] [id number] [address] [place] [address], [place] [address] Nov, [facility] [address] [id number] [address] [place] [address], [place] [address] Oct, [facility] [address] [id number] [address] [place] [address], [place] [address] Oct, [facility] [address] [id number] [address] [place] [address], [place] [address] Oct, [facility] [address] [id number] [address] [place] [address], [place] [address] Oct, [facility] [address] [id number] [address] [place] [address], [place] [address] Oct, [facility] [address] [id number] [address] [place] [address], [place] [address] Oct, [facility] [address] [id number] [address] [place] [address], [place] [address] Oct, [facility] [address] [id number] [address] [place] [address], [place] [address] Oct, [facility] [address] [id number] [address] [place] [address], [place] [address] 24 Oct, 2014 [facility] [address] [id number] [address] [place] [address], [place] [address] Oct, [facility] [address] [id number] [address] [place] [address], [place] [address] Oct, [facility] [address] [id number] [address] [place] [address], [place] [address] Oct, [facility] [address] [id number] [address] [place] [address], [place] [address] 17 Oct, 2014 [facility] [address] [id number] [address] [place] [address], [place] [address] 17 Oct, 2014 [facility] [address] [id number] [address] [place] [address], [place] [address] 16 Oct, 2014 [facility] [address] [id number] [address] [place] [address], [place] [address] 16 Oct, 2014 [facility] [address] [id number] [address] [place] [address], [place] [address] 13 Oct, 2014 [facility] [address] [id number] [address] [place] [address], [place] [address] Oct, [facility] [address] [id number] [address] [place] [address], [place] [address] Oct, [facility] [address] [id number] [address] [place] [address], [place] [address] 05 Oct, 2014 [facility] [address] [id number] [address] [place] [address], [place] [address] 05 Oct, 2014 [facility] [address] [id number] [address] [place] [address], [place] [address] Oct, [facility] [address] [id number] [address] [place] [address], [place] [address] Oct, [facility] [address] [id number] [address] [place] [address], [place] [address] Sep, [facility] [address] [id number] [address] [place] [address], [place] [address] Sep, [facility] [address] [id number] [address] [place] [address], [place] [address] Sep, [facility] [address] [id number] [address] [place] [address], [place] [address] Sep, [facility] [address] [id number] [address] [place] [address], [place] [address] Sep, [facility] [address] [id number] [address] [place] [address], [place] [address] Sep, [facility] [address] [id number] [address] [place] [address], [place] [address] Sep, [facility] [address] [id number] [address] [place] [address], [place] [address] Sep, [facility] [address] [id number] [address] [place] [address], [place] [address] Sep, [facility] [address] [id number] [address] [place] [address], [place] [address] Sep, [facility] [address] [id number] [address] [place] [address], [place] [address] Sep, [facility] [address] [id number] [address] [place] [address] Sep, [facility] [address] [id number] [address] [place] [address] Sep, [facility] [address] [id number] [address] [place] [address], [place] [address] Sep, [facility] [address] [id number] [address] [place] [address], [place] [address] Sep, [facility] [address] [id number] [address] [place] [address], [place] [address] Sep, [facility] [address] [id number] [address] [place] [address], [place] [address] Sep, [facility] [address] [id number] [address] [place] [address], [place] [address] Sep, [facility] [address] [id number] [address] [place] [address], [place] [address] Sep, [facility] [address] [id number] [address] [place] [address], [place] [address] Sep, [facility] [address] [id number] [address] [place] [address], [place] [address] Sep, [facility] [address] [id number] [address] [place] [address], [place] [address] Sep, [facility] [address] [id number] [address] [place] [address], [place] [address] Sep, [facility] [address] [id number] [address] [place] [address], [place] [address] Sep, [facility] [address] [id number] [address] [place] [address], [place] [address] Sep, [facility] [address] [id number] [address] [place] [address], [place] [address] Sep, [facility] [address] [id number] [address] [place] [address], [place] [address] Sep, [facility] [address] [id number] [address] [place] [address], [place] [address] Sep, [facility] [address] [id number] [address] [place] [address], [place] [address] Aug, [facility] [address] [id number] [address] [place] [address], [place] [address] Aug, [facility] [address] [id number] [address] [place] [address], [place] [address] Aug, [facility] [address] [id number] [address] [place] [address], [place] [address] Aug, [facility] [address] [id number] [address] [place] [address], [place] [address] Aug, [facility] [address] [id number] [address] [place] [address], [place] [address] Aug, [facility] [address] [id number] [address] [place] [address], [place] [address] Aug, [facility] [address] [id number] [address] [place] [address], [place] [address] Aug, [facility] [address] [id number] [address] [place] [address], [place] [address] Aug, [facility] [address] [id number] [address] [place] [address], [place] [address] Aug, [facility] [address] [id number] [address] [place] [address], [place] [address] Aug, [facility] [address] [id number] [address] [place] [address], [place] [address] Aug, [facility] [address] [id number] [address] [place] [address], [place] [address] Aug, [facility] [address] [id number] [address] [place] [address], [place] [address] Aug, [facility] [address] [id number] [address] [place] [address], [place] [address] Aug, [facility] [address] [id number] [address] [place] [address], [place] [address] Aug, 2013 [facility] [address] [id number] [address] [place] [address], [place] [address] Aug, [facility] [address] [id number] [address] [place] [address], [place] [address] 17 Aug, 2013 [facility] [address] [id number] [address] [place] [address], [place] [address] 14 Aug, 2014 [facility] [address] [id number] [address] [place] [id number] 14 Aug, 2013 [facility] [address] [id number] [address] [place] [address], [place] [address] 09 Aug, 2013 [facility] [address] [id number] [address] [place] [id number] Aug, 2013 [facility] [address] [id number] [address] [place] [id number] Aug, 2013 [facility] [address] [id number] [address] [place] [address] Aug, 2013 [facility] [address] [id number] [address] [place] [address], [place] [address] 08 Aug, 2013 [facility] [address] [id number] [address] [place] [id number] Aug, 2013 [facility] [address] [id number] [address] [place] [id number] Aug, 2013 [facility] [address] [id number] [address] [place] [id number] Aug, 2013 [facility] [address] [id number] [address] [place] [id number] Aug, 2013 [facility] [address] [id number] [address] [place] [id number] 30 Jul, 2013 [facility] [address] [id number] [address] [place] [id number] 30 Sep, 2013 [facility] [address] [id number] [address] [place] [id number] 29 Sep, 2013 [facility] [address] [id number] [address] [place] [id number] 29 Sep, 2013 [facility] [address] [id number] [address] [place] [id number] 19 Sep, 2013 [facility] [address] [id number] [address] [place] [id number] 19 Sep, 2013 [facility] [address] [id number] [address] [place] [address] 18 Jul, 2013 [facility] [address] [id number] [facility] [place] [address] 18 Jul, 2013 [facility] [address] [id number] [facility] [place] [address] 17 Jul, 2013 [facility] [address] [id number] [address] [place] [address] 17 Jul, 2013 [facility] [address] [id number] [address] [place] [address] 10 Jul, 2013 [facility] [address] [id number] [address] [place] [address], [place] [address] 10 Jul, 2014 [facility] [address] [id number] [address] [place] [address], [place] [address] Jun, [facility] [address] [id number] [address] [place] [address], [place] [address] Jun, [facility] [address] [id number] [address] [place] [address], [place] [address] Jun, [facility] [address] [id number] [address] [place] [address], [place] [address] Jun, [facility] [address] [id number] [address] [place] [address], [place] [address] Jun, [facility] [address] [id number] [address] [place] [address], [place] [address] Jun, [facility] [address] [id number] [address] [place] [address], [place] [address] Jun, [facility] [address] [id number] [address] [place] [address], [place] [address] Jun, [facility] [address] [id number] [address] [place] [address], [place] [id number] Jun, [facility] [address] [id number] [address] [place] [address], [place] [id number] Jun, [facility] [address] [facility] [id number] [address] [place] [id number] Jun, [facility] [address] [facility] [id number] [address] [place] [id number] Jun, [facility] [address] [facility] [id number] [address] [place] [id number] May, [facility] [address] [facility] [id number] [address] [place] [id number] May, [facility] [address] [facility] [id number] [address] [place] [id number] May, IMMUNIZATIONS No Known Immunizations SOCIAL HISTORY Never Assessed REASON FOR VISIT [facility] [place] VITAL SIGNS MEDICATIONS Unknown [...]
--- OUTSIDE RECORDS SUMMARY | 2020-05-03 14:42 | XMS REPORT ---
Author Author Tracee Briceño Doctor Organization [facility] Address Unknown Phone Unavailable Care Team Providers Care Advertising Project Manager Name Role Phone Migration, Doctor Unavailable Unavailable PROBLEMS Type Condition ICD9-CM Code LHC67-IZ Code Onset Dates Condition S tatus SNOMED Code Problem Primary insomnia F51.01 Active 397 2004 Problem Breast pain N64.4 Active 94651256 Problem History of renal transplant Z94.0 Ac tive 382586369 Problem Violation of controlled substance agreement Z91.14 Active 885721441 Problem Mild intermittent asthma without complication J45. 20 Active 049135080 Problem Screening breast examination Z12.39 A ctive 889719790 Problem Irritable bowel syndrome without diarrhea K58.9 Active 55078620 Problem Irritable bowel syndrome with diarrhea K58.0 Active [id number] ALLERGIES No Information ENCOUNTERS Encounter Location Date Diagnosis [facility] [id number] [place] [address] [id number] Feb, Caries K02.9 [facility] [address] [facility] [id number] [place] [address] [id number] Feb, Caries K02.9 [facility] [id number] [place] [address] [id number] Jan, [facility] [address] [facility] [id number] [place] [address] [phone] Jan, Caries K02.9 [facility] [address] [facility] [id number] [address] [place] [address] [id number] Dec, [facility] [address] [facility] [id number] [place] [address] [id number] 18 Dec, 2018 Dental examination Z01.20 an d Caries K02.9 [facility] [address] [id number] [address] [place] [address] Sep, Dental examination Z01.20 [place] [address] [facility] [id number] [address] [place] [address] 08 Jan, 2016 Nausea R11.0 ; Irritable bow el syndrome without diarrhea K58.9 and History of renal transplant Z94.0 [place] [address] [facility] [id number] [address] [place] [address] 2015 [place] [address] [place] [id number] [place] [address] 11 Dec, 2015 Breast pain N64.4 ; Screenin g breast examination Z12.39 and Mild intermittent asthma without complication J45.20 [place] [address] [address] 10 Dec, 2015 [place] [address] [place] [id number] [place] [address] 09 Dec, 2015 Kidney transplant status Z94 .0 ; Personal history of immunosupression therapy Z92.25 ; Recurrent UTI N39.0 and Encounter for screening, unspecified Z13.9 [place] [id number] [place] [address] Oct, [place] [address] [address] Oct, [place] [address] [place] [id number] [place] [address] Oct, [place] [address] [place] [id number] [address] [place] [address] Oct, Hiatal hernia K44.9 and Atyp ical chest pain R07.89 [place] [address] [place] [id number] [address] [place] [address] Oct, [place] [address] [place] [id number] [address] [place] [address] Sep, Kidney replaced by transplan t V42.0 and Bilateral low back pain with sciatica, sciatica laterality unspecified M54.40 [place] [address] [place] [address] Sep, [facility] [address] [id number] [address] [place] [address] Sep, Kidney replaced by transplan t V42.0 ; Bilateral low back pain with sciatica, sciatica laterality unspecified M54.40 ; Anxiety F41.9 and Primary insomnia F51.01 [facility] [address] [facility] [id number] [address] [place] [address] Aug, [facility] [address] [facility] [id number] [address] [place] [address] Aug, [facility] [address] [facility] [id number] [address] [place] [address] Aug, Kidney transplant status Z94 .0 ; Personal history of immunosupression therapy Z92.25 ; Recurrent urinary tract infection N39.0 and Screening Z13.9 [facility] [address] [facility] [id number] [address] [place] [address] Aug, [facility] [address] [facility] [id number] [address] [place] [address] Aug, Encounter for aftercare foll owing kidney transplant Z48.22 ; Chronic radicular pain of lower back M54.16 and PND (post-nasal drip) R09.82 [facility] [address] [facility] [id number] [address] [place] [address] Jul, [facility] [address] [facility] [id number] [address] [place] [address] Jul, [facility] [address] [facility] [id number] [address] [place] [address] Jul, [facility] [address] [facility] [id number] [address] [place] [address] Jul, Kidney replaced by transplan t V42.0 ; Depressive disorder, not elsewhere classified 311 ; Anxiety state, unspecified 300.00 ; Insomnia, unspecified 780.52 ; Irritable bowel syndrome 564.1 ; Chronic lumbar pain 724.2 and GERD (gastroesophageal reflux disease) 530.81 [facility] [address] [facility] [id number] [address] [place] [address] Jul, [facility] [address] [id number] [address] [place] [address] Jun, [facility] [address] [facility] [id number] [address] [place] [address] Jun, [facility] [address] [id number] [address] [place] [address] Jun, [facility] [address] [id number] [address] [place] [address] Jun, Kidney replaced by transplan t V42.0 [facility] [address] [facility] [id number] [address] [place] [address] May, [facility] [address] [facility] [id number] [address] [place] [address] May, Depression with anxiety 300. 4 and Skin infection 686.9 [facility] [address] [facility] [id number] [address] [place] [address] May, [facility] [address] [facility] [id number] [address] [place] [address] May, Kidney replaced by transplan t V42.0 ; Recurrent UTI (urinary tract infection) 599.0 and Absence of menstruation 626.0 [facility] [address] [facility] [id number] [address] [place] [address] May, [facility] [address] [facility] [id number] [address] [place] [address] May, Depression with anxiety 300. 4 [facility] [address] [facility] [id number] [address] [place] [address] May, [facility] [address] [facility] [id number] [address] [place] [address] Apr, [facility] [address] [place] [id number] [address] [place] [address] Apr, [facility] [address] [facility] [id number] [address] [place] [address] Apr, Depression, major, recurrent , mild 296.31 [facility] [address] [place] [id number] [address] [place] [address] Apr, Depression, major, recurrent , mild 296.31 [facility] [address] [place] [id number] [place] [address] Apr, Cervicalgia 723.1 ; Lumbago 724.2 ; Anxiety state, unspecified 300.00 ; Nausea 787.02 ; 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 ; Recurrent UTI (urinary tract infection) 599.0 and Knee pain, bilateral 719.[address] [address] March, Depression, major, recurrent , mild 296.31 [place] [address] [address] March, [address] [address] March, [place] [address] [place] [id number] [address] [place] [address] March, Lumbago 724.2 ; Insomnia, un specified 780.52 ; Depressive disorder, not elsewhere classified 311 ; 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 ; Anxiety 300.00 ; Allergic rhinitis 477.9 and GERD (gastroesophageal reflux disease) 530.81 [place] [address] [place] [id number] [address] [place] [address] Feb, [place] [id number] [place] [address] Feb, [place] [address] [place] [id number] [address] [place] [address] Jan, [place] [address] [place] [address] Jan, [facility] [address] [id number] [address] [place] [address], [place] [address] Jan, [facility] [address] [id number] [address] [place] [address], [place] [address] Jan, [facility] [address] [id number] [address] [place] [address], [place] [address] Dec, 2014 [facility] [address] [id number] [address] [place] [address], [place] [address] Dec, 2014 [facility] [address] [id number] [address] [place] [address], [place] [address] Dec, 2014 [facility] [address] [id number] [address] [place] [address], [place] [address] Dec, [facility] [address] [id number] [address] [place] [address], [place] [address] Dec, [facility] [address] [id number] [address] [place] [address], [place] [address] Dec, [facility] [address] [id number] [address] [place] [address], [place] [address] Dec, [facility] [address] [id number] [address] [place] [address], [place] [address] Nov, [facility] [address] [id number] [address] [place] [address], [place] [address] Nov, [facility] [address] [id number] [address] [place] [address], [place] [address] Nov, [facility] [address] [id number] [address] [place] [address], [place] [address] Nov, [facility] [address] [id number] [address] [place] [address], [place] [address] Nov, [facility] [address] [id number] [address] [place] [address], [place] [address] Nov, [facility] [address] [id number] [address] [place] [address], [place] [address] Nov, [facility] [address] [id number] [address] [place] [address], [place] [address] Nov, [facility] [address] [id number] [address] [place] [address], [place] [address] Nov, [facility] [address] [id number] [address] [place] [address], [place] [address] Nov, [facility] [address] [id number] [address] [place] [address], [place] [address] Nov, [facility] [address] [id number] [address] [place] [address], [place] [address] Nov, [facility] [address] [id number] [address] [place] [address], [place] [address] Nov, [facility] [address] [id number] [address] [place] [address], [place] [address] Nov, [facility] [address] [id number] [address] [place] [address], [place] [address] Nov, [facility] [address] [id number] [address] [place] [address], [place] [address] Nov, [facility] [address] [id number] [address] [place] [address], [place] [address] Nov, [facility] [address] [id number] [address] [place] [address], [place] [address] Nov, [facility] [address] [id number] [address] [place] [address], [place] [address] Nov, [facility] [address] [id number] [address] [place] [address], [place] [address] Nov, [facility] [address] [id number] [address] [place] [address], [place] [address] Nov, [facility] [address] [id number] [address] [place] [address] [place] [address] Nov, [facility] [address] [id number] [address] [place] [address], [place] [address] Nov, [facility] [address] [id number] [address] [place] [address], [place] [address] Nov, [facility] [address] [id number] [address] [place] [address], [place] [address] Nov, [facility] [address] [id number] [address] [place] [address], [place] [address] Nov, [facility] [address] [id number] [address] [place] [address], [place] [address] Nov, [facility] [address] [id number] [address] [place] [address], [place] [address] Nov, [facility] [address] [id number] [address] [place] [address], [place] [address] Nov, [facility] [address] [id number] [address] [place] [address], [place] [address] Oct, [facility] [address] [id number] [address] [place] [address], [place] [address] Oct, [facility] [address] [id number] [address] [place] [address], [place] [address] Oct, [facility] [address] [id number] [address] [place] [address], [place] [address] Oct, [facility] [address] [id number] [address] [place] [address], [place] [address] Oct, [facility] [address] [id number] [address] [place] [address], [place] [address] Oct, [facility] [address] [id number] [address] [place] [address], [place] [address] Oct, [facility] [address] [id number] [address] [place] [address], [place] [address] Oct, [facility] [address] [id number] [address] [place] [address], [place] [address] 24 Oct, 2014 [facility] [address] [id number] [address] [place] [address], [place] [address] Oct, [facility] [address] [id number] [address] [place] [address], [place] [address] Oct, [facility] [address] [id number] [address] [place] [address], [place] [address] Oct, [facility] [address] [id number] [address] [place] [address], [place] [address] 17 Oct, 2014 [facility] [address] [id number] [address] [place] [address], [place] [address] 17 Oct, 2014 [facility] [address] [id number] [address] [place] [address], [place] [address] 16 Oct, 2014 [facility] [address] [id number] [address] [place] [address], [place] [address] 16 Oct, 2014 [facility] [address] [id number] [address] [place] [address], [place] [address] 13 Oct, 2014 [facility] [address] [id number] [address] [place] [address], [place] [address] Oct, [facility] [address] [id number] [address] [place] [address], [place] [address] Oct, [facility] [address] [id number] [address] [place] [address], [place] [address] 05 Oct, 2014 [facility] [address] [id number] [address] [place] [address], [place] [address] 05 Oct, 2014 [facility] [address] [id number] [address] [place] [address], [place] [address] Oct, [facility] [address] [id number] [address] [place] [address], [place] [address] Oct, [facility] [address] [id number] [address] [place] [address], [place] [address] Sep, [facility] [address] [id number] [address] [place] [address], [place] [address] Sep, [facility] [address] [id number] [address] [place] [address], [place] [address] Sep, [facility] [address] [id number] [address] [place] [address], [place] [address] Sep, [facility] [address] [id number] [address] [place] [address], [place] [address] Sep, [facility] [address] [id number] [address] [place] [address], [place] [address] Sep, [facility] [address] [id number] [address] [place] [address], [place] [address] Sep, [facility] [address] [id number] [address] [place] [address], [place] [address] Sep, [facility] [address] [id number] [address] [place] [address], [place] [address] Sep, [facility] [address] [id number] [address] [place] [address], [place] [address] Sep, [facility] [address] [id number] [address] [place] [address], [place] [address] Sep, [facility] [address] [id number] [address] [place] [address] Sep, [facility] [address] [id number] [address] [place] [address] Sep, [facility] [address] [id number] [address] [place] [address], [place] [address] Sep, [facility] [address] [id number] [address] [place] [address], [place] [address] Sep, [facility] [address] [id number] [address] [place] [address], [place] [address] Sep, [facility] [address] [id number] [address] [place] [address], [place] [address] Sep, [facility] [address] [id number] [address] [place] [address], [place] [address] Sep, [facility] [address] [id number] [address] [place] [address], [place] [address] Sep, [facility] [address] [id number] [address] [place] [address], [place] [address] Sep, [facility] [address] [id number] [address] [place] [address], [place] [address] Sep, [facility] [address] [id number] [address] [place] [address], [place] [address] Sep, [facility] [address] [id number] [address] [place] [address], [place] [address] Sep, [facility] [address] [id number] [address] [place] [address], [place] [address] Sep, [facility] [address] [id number] [address] [place] [address], [place] [address] Sep, [facility] [address] [id number] [address] [place] [address], [place] [address] Sep, [facility] [address] [id number] [address] [place] [address], [place] [address] Sep, [facility] [address] [id number] [address] [place] [address], [place] [address] Sep, [facility] [address] [id number] [address] [place] [address], [place] [address] Aug, [facility] [address] [id number] [address] [place] [address], [place] [address] Aug, [facility] [address] [id number] [address] [place] [address], [place] [address] Aug, [facility] [address] [id number] [address] [place] [address], [place] [address] Aug, [facility] [address] [id number] [address] [place] [address], [place] [address] Aug, [facility] [address] [id number] [address] [place] [address], [place] [address] Aug, [facility] [address] [id number] [address] [place] [address], [place] [address] Aug, [facility] [address] [id number] [address] [place] [address], [place] [address] Aug, [facility] [address] [id number] [address] [place] [address], [place] [address] Aug, [facility] [address] [id number] [address] [place] [address], [place] [address] Aug, [facility] [address] [id number] [address] [place] [address], [place] [address] Aug, [facility] [address] [id number] [address] [place] [address], [place] [address] Aug, [facility] [address] [id number] [address] [place] [address], [place] [address] Aug, [facility] [address] [id number] [address] [place] [address], [place] [address] Aug, [facility] [address] [id number] [address] [place] [address], [place] [address] Aug, [facility] [address] [id number] [address] [place] [address], [place] [address] Aug, 2013 [facility] [address] [id number] [address] [place] [address], [place] [address] Aug, [facility] [address] [id number] [address] [place] [address], [place] [address] 17 Aug, 2013 [facility] [address] [id number] [address] [place] [address], [place] [address] 14 Aug, 2014 [facility] [address] [id number] [address] [place] [address] 14 Aug, 2013 [facility] [address] [id number] [address] [place] [address], [place] [address] 09 Aug, 2013 [facility] [address] [id number] [address] [place] [address] Aug, 2013 [facility] [address] [id number] [address] [place] [address] Aug, 2013 [facility] [address] [id number] [address] [place] [address] Aug, 2013 [facility] [address] [id number] [address] [place] [address], [place] [address] 08 Aug, 2013 [facility] [address] [id number] [address] [place] [address] Aug, 2013 [facility] [address] [id number] [address] [place] [address] Aug, 2013 [facility] [address] [id number] [address] [place] [address] Aug, 2013 [facility] [address] [id number] [address] [place] [address] Aug, 2013 [facility] [address] [id number] [address] [place] [id number] 30 Jul, 2013 [facility] [address] [id number] [address] [place] [id number] 30 Sep, 2013 [facility] [address] [id number] [address] [place] [address] 29 Sep, 2013 [facility] [address] [id number] [address] [place] [id number] 29 Sep, 2013 [facility] [address] [id number] [address] [place] [id number] 19 Sep, 2013 [facility] [address] [id number] [address] [place] [id number] 19 Sep, 2013 [facility] [address] [id number] [facility] [place] [address] 18 Jul, 2013 [facility] [address] [id number] [facility] [place] [address] 18 Jul, 2013 [facility] [address] [id number] [facility] [place] [address] 17 Jul, 2013 [facility] [address] [id number] [facility] [place] [address] 17 Jul, 2013 [facility] [address] [id number] [facility] [place] [address] 10 Jul, 2013 [facility] [address] [id number] [address] [place] [address], [place] [address] 10 Jul, 2014 [facility] [address] [id number] [address] [place] [address], [place] [address] Jun, [facility] [address] [id number] [address] [place] [address], [place] [address] Jun, [facility] [address] [id number] [address] [place] [address], [place] [address] Jun, [facility] [address] [id number] [address] [place] [address], [place] [address] Jun, [facility] [address] [id number] [address] [place] [address], [place] [address] Jun, [facility] [address] [id number] [address] [place] [address], [place] [address] Jun, [facility] [address] [id number] [address] [place] [address], [place] [address] Jun, [facility] [address] [id number] [address] [place] [address], [place] [address] Jun, [facility] [address] [id number] [address] [place] [address], [place] [address] Jun, [facility] [address] [id number] [address] [place] [address], [place] [address] Jun, [facility] [address] [facility] [id number] [address] [place] [id number] Jun, [facility] [address] [facility] [id number] [address] [place] [id number] Jun, [facility] [address] [facility] [id number] [address] [place] [id number] May, [facility] [address] [facility] [id number] [address] [place] [id number] May, [facility] [address] [facility] [id number] [address] [place] [id number] May, IMMUNIZATIONS No Known Immunizations SOCIAL HISTORY Never Assessed REASON FOR VISIT [facility] [place] PLAN OF CARE VITAL [...]
--- OUTSIDE RECORDS SUMMARY | 2020-05-03 14:42 | XMS REPORT ---
Author Author Tracee Briceño Doctor Organization [facility] Address Unknown Phone Unavailable Care Team Providers Care Loom Checker Name Role Phone Migration, Doctor Unavailable Unavailable PROBLEMS Type Condition ICD9-CM Code XUD15-SD Code Onset Dates Condition S tatus SNOMED Code Problem Primary insomnia F51.01 Active 397 2004 Problem Breast pain N64.4 Active 92124961 Problem History of renal transplant Z94.0 Ac tive 176010489 Problem Violation of controlled substance agreement Z91.14 Active 776614943 Problem Mild intermittent asthma without complication J45. 20 Active 684870132 Problem Screening breast examination Z12.39 A ctive 856696861 Problem Irritable bowel syndrome without diarrhea K58.9 Active 42695823 Problem Irritable bowel syndrome with diarrhea K58.0 Active 524681224 ALLERGIES No Information ENCOUNTERS Encounter Location Date Diagnosis [facility] [id number] [place] [address] [id number] Feb, Caries K02.9 [facility] [address] [facility] [id number] [place] [address] [id number] Feb, Caries K02.9 [facility] [address] [place] [address] [id number] Jan, [facility] [address] [facility] [id number] [place] [address] [id number] Jan, Caries K02.9 [facility] [address] [facility] [id number] [address] [place] [address] [id number] Dec, [facility] [address] [facility] [id number] [place] [address] [id number] 18 Dec, 2018 Dental examination Z01.20 an d Caries K02.9 [facility] [address] [id number] [address] [place] [address] Sep, Dental examination Z01.20 [place] [address] [facility] [id number] [address] [place] [id number] 08 Jan, 2016 Nausea R11.0 ; Irritable bow el syndrome without diarrhea K58.9 and History of renal transplant Z94.0 [place] [address] [facility] [id number] [address] [place] [id number] 2015 [place] [address] [place] [id number] [place] [address] 11 Dec, 2015 Breast pain N64.4 ; Screenin g breast examination Z12.39 and Mild intermittent asthma without complication J45.20 [place] [address] [address] 10 Dec, 2015 [place] [address] [place] [id number] [place] [address] 09 Dec, 2015 Kidney transplant status Z94 .0 ; Personal history of immunosupression therapy Z92.25 ; Recurrent UTI N39.0 and Encounter for screening, unspecified Z13.9 [place] [id number] [place] [address] Oct, [place] [address] [address] Oct, [place] [address] [place] [id number] [place] [address] Oct, [place] [address] [place] [id number] [address] [place] [address] Oct, Hiatal hernia K44.9 and Atyp ical chest pain R07.89 [place] [address] [place] [id number] [place] [address] Oct, [place] [address] [place] [id number] [address] [place] [address] Sep, Kidney replaced by transplan t V42.0 and Bilateral low back pain with sciatica, sciatica laterality unspecified M54.40 [place] [address] [place] [address] Sep, [facility] [address] [id number] [address] [place] [address] Sep, Kidney replaced by transplan t V42.0 ; Bilateral low back pain with sciatica, sciatica laterality unspecified M54.40 ; Anxiety F41.9 and Primary insomnia F51.01 [facility] [address] [facility] [id number] [address] [place] [address] Aug, [facility] [address] [facility] [id number] [address] [place] [address] Aug, [facility] [address] [facility] [id number] [address] [place] [address] Aug, Kidney transplant status Z94 .0 ; Personal history of immunosupression therapy Z92.25 ; Recurrent urinary tract infection N39.0 and Screening Z13.9 [facility] [address] [facility] [id number] [address] [place] [address] Aug, [facility] [address] [facility] [id number] [address] [place] [address] Aug, Encounter for aftercare foll owing kidney transplant Z48.22 ; Chronic radicular pain of lower back M54.16 and PND (post-nasal drip) R09.82 [facility] [address] [facility] [id number] [address] [place] [address] Jul, [facility] [address] [facility] [id number] [address] [place] [address] Jul, [facility] [address] [facility] [id number] [address] [place] [address] Jul, [facility] [address] [facility] [id number] [address] [place] [address] Jul, Kidney replaced by transplan t V42.0 ; Depressive disorder, not elsewhere classified 311 ; Anxiety state, unspecified 300.00 ; Insomnia, unspecified 780.52 ; Irritable bowel syndrome 564.1 ; Chronic lumbar pain 724.2 and GERD (gastroesophageal reflux disease) 530.81 [facility] [address] [facility] [id number] [address] [place] [address] Jul, [facility] [address] [id number] [address] [place] [address] Jun, [facility] [address] [facility] [id number] [address] [place] [address] Jun, [facility] [address] [id number] [address] [place] [phone] Jun, [facility] [address] [id number] [address] [place] [address] Jun, Kidney replaced by transplan t V42.0 [facility] [address] [facility] [id number] [address] [place] [phone] May, [facility] [address] [facility] [id number] [address] [place] [address] May, Depression with anxiety 300. 4 and Skin infection 686.9 [facility] [address] [facility] [id number] [address] [place] [address] May, [facility] [address] [facility] [id number] [address] [place] [address] May, Kidney replaced by transplan t V42.0 ; Recurrent UTI (urinary tract infection) 599.0 and Absence of menstruation 626.0 [facility] [address] [facility] [id number] [address] [place] [address] May, [facility] [address] [facility] [id number] [address] [place] [address] May, Depression with anxiety 300. 4 [facility] [address] [facility] [id number] [address] [place] [address] May, [facility] [address] [facility] [id number] [address] [place] [address] Apr, [facility] [id number] [address] [place] [address] Apr, [facility] [address] [facility] [id number] [address] [place] [address] Apr, Depression, major, recurrent , mild 296.31 [facility] [id number] [place] [address] Apr, Depression, major, recurrent , mild 296.31 [facility] [address] [id number] [place] [address] Apr, Cervicalgia 723.1 ; Lumbago 724.2 ; Anxiety state, unspecified 300.00 ; Nausea 787.02 ; 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 ; Recurrent UTI (urinary tract infection) 599.0 and Knee pain, bilateral 719.[address] [address] March, Depression, major, recurrent , mild 296.31 [place] [address] [address] March, [address] [address] March, [place] [address] [place] [id number] [place] [address] March, Lumbago 724.2 ; Insomnia, un specified 780.52 ; Depressive disorder, not elsewhere classified 311 ; 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 ; Anxiety 300.00 ; Allergic rhinitis 477.9 and GERD (gastroesophageal reflux disease) 530.81 [place] [address] [place] [id number] [place] [address] Feb, [place] [id number] [place] [address] Feb, [place] [address] [place] [id number] [place] [address] Jan, [place] [address] [place] [address] Jan, [facility] [address] [id number] [address] [place] [address], [place] [address] Jan, [facility] [address] [id number] [address] [place] [address], [place] [address] Jan, [facility] [address] [id number] [address] [place] [address], [place] [address] Dec, 2014 [facility] [address] [id number] [address] [place] [address], [place] [address] Dec, 2014 [facility] [address] [id number] [address] [place] [address], [place] [address] Dec, 2014 [facility] [address] [id number] [address] [place] [address], [place] [address] Dec, [facility] [address] [id number] [address] [place] [address], [place] [address] Dec, [facility] [address] [id number] [address] [place] [address], [place] [address] Dec, [facility] [address] [id number] [address] [place] [address], [place] [address] Dec, [facility] [address] [id number] [address] [place] [address], [place] [address] Nov, [facility] [address] [id number] [address] [place] [address], [place] [address] Nov, [facility] [address] [id number] [address] [place] [address], [place] [address] Nov, [facility] [address] [id number] [address] [place] [address], [place] [address] Nov, [facility] [address] [id number] [address] [place] [address], [place] [address] Nov, [facility] [address] [id number] [address] [place] [address], [place] [address] Nov, [facility] [address] [id number] [address] [place] [address], [place] [address] Nov, [facility] [address] [id number] [address] [place] [address], [place] [address] Nov, [facility] [address] [id number] [address] [place] [address], [place] [address] Nov, [facility] [address] [id number] [address] [place] [address], [place] [address] Nov, [facility] [address] [id number] [address] [place] [address], [place] [address] Nov, [facility] [address] [id number] [address] [place] [address], [place] [address] Nov, [facility] [address] [id number] [address] [place] [address], [place] [address] Nov, [facility] [address] [id number] [address] [place] [address], [place] [address] Nov, [facility] [address] [id number] [address] [place] [address], [place] [address] Nov, [facility] [address] [id number] [address] [place] [address], [place] [address] Nov, [facility] [address] [id number] [address] [place] [address], [place] [address] Nov, [facility] [address] [id number] [address] [place] [address], [place] [address] Nov, [facility] [address] [id number] [address] [place] [address], [place] [address] Nov, [facility] [address] [id number] [address] [place] [address], [place] [address] Nov, [facility] [address] [id number] [address] [place] [address], [place] [address] Nov, [facility] [address] [id number] [address] [place] [address] [place] [address] Nov, [facility] [address] [id number] [address] [place] [address], [place] [address] Nov, [facility] [address] [id number] [address] [place] [address], [place] [address] Nov, [facility] [address] [id number] [address] [place] [address], [place] [address] Nov, [facility] [address] [id number] [address] [place] [address], [place] [address] Nov, [facility] [address] [id number] [address] [place] [address], [place] [address] Nov, [facility] [address] [id number] [address] [place] [address], [place] [address] Nov, [facility] [address] [id number] [address] [place] [address], [place] [address] Nov, [facility] [address] [id number] [address] [place] [address], [place] [address] Oct, [facility] [address] [id number] [address] [place] [address], [place] [address] Oct, [facility] [address] [id number] [address] [place] [address], [place] [address] Oct, [facility] [address] [id number] [address] [place] [address], [place] [address] Oct, [facility] [address] [id number] [address] [place] [address], [place] [address] Oct, [facility] [address] [id number] [address] [place] [address], [place] [address] Oct, [facility] [address] [id number] [address] [place] [address], [place] [address] Oct, [facility] [address] [id number] [address] [place] [address], [place] [address] Oct, [facility] [address] [id number] [address] [place] [address], [place] [address] 24 Oct, 2014 [facility] [address] [id number] [address] [place] [address], [place] [address] Oct, [facility] [address] [id number] [address] [place] [address], [place] [address] Oct, [facility] [address] [id number] [address] [place] [address], [place] [address] Oct, [facility] [address] [id number] [address] [place] [address], [place] [address] 17 Oct, 2014 [facility] [address] [id number] [address] [place] [address], [place] [address] 17 Oct, 2014 [facility] [address] [id number] [address] [place] [address], [place] [address] 16 Oct, 2014 [facility] [address] [id number] [address] [place] [address], [place] [address] 16 Oct, 2014 [facility] [address] [id number] [address] [place] [address], [place] [address] 13 Oct, 2014 [facility] [address] [id number] [address] [place] [address], [place] [address] Oct, [facility] [address] [id number] [address] [place] [address], [place] [address] Oct, [facility] [address] [id number] [address] [place] [address], [place] [address] 05 Oct, 2014 [facility] [address] [id number] [address] [place] [address], [place] [address] 05 Oct, 2014 [facility] [address] [id number] [address] [place] [address], [place] [address] Oct, [facility] [address] [id number] [address] [place] [address], [place] [address] Oct, [facility] [address] [id number] [address] [place] [address], [place] [address] Sep, [facility] [address] [id number] [address] [place] [address], [place] [address] Sep, [facility] [address] [id number] [address] [place] [address], [place] [address] Sep, [facility] [address] [id number] [address] [place] [address], [place] [address] Sep, [facility] [address] [id number] [address] [place] [address], [place] [address] Sep, [facility] [address] [id number] [address] [place] [address], [place] [address] Sep, [facility] [address] [id number] [address] [place] [address], [place] [address] Sep, [facility] [address] [id number] [address] [place] [address], [place] [address] Sep, [facility] [address] [id number] [address] [place] [address], [place] [address] Sep, [facility] [address] [id number] [address] [place] [address], [place] [address] Sep, [facility] [address] [id number] [address] [place] [address], [place] [address] Sep, [facility] [address] [id number] [address] [place] [address] Sep, [facility] [address] [id number] [address] [place] [address] Sep, [facility] [address] [id number] [address] [place] [address], [place] [address] Sep, [facility] [address] [id number] [address] [place] [address], [place] [address] Sep, [facility] [address] [id number] [address] [place] [address], [place] [address] Sep, [facility] [address] [id number] [address] [place] [address], [place] [address] Sep, [facility] [address] [id number] [address] [place] [address], [place] [address] Sep, [facility] [address] [id number] [address] [place] [address], [place] [address] Sep, [facility] [address] [id number] [address] [place] [address], [place] [address] Sep, [facility] [address] [id number] [address] [place] [address], [place] [address] Sep, [facility] [address] [id number] [address] [place] [address], [place] [address] Sep, [facility] [address] [id number] [address] [place] [address], [place] [address] Sep, [facility] [address] [id number] [address] [place] [address], [place] [address] Sep, [facility] [address] [id number] [address] [place] [address], [place] [address] Sep, [facility] [address] [id number] [address] [place] [address], [place] [address] Sep, [facility] [address] [id number] [address] [place] [address], [place] [address] Sep, [facility] [address] [id number] [address] [place] [address], [place] [address] Sep, [facility] [address] [id number] [address] [place] [address], [place] [address] Aug, [facility] [address] [id number] [address] [place] [address], [place] [address] Aug, [facility] [address] [id number] [address] [place] [address], [place] [address] Aug, [facility] [address] [id number] [address] [place] [address], [place] [address] Aug, [facility] [address] [id number] [address] [place] [address], [place] [address] Aug, [facility] [address] [id number] [address] [place] [address], [place] [address] Aug, [facility] [address] [id number] [address] [place] [address], [place] [address] Aug, [facility] [address] [id number] [address] [place] [address], [place] [address] Aug, [facility] [address] [id number] [address] [place] [address], [place] [address] Aug, [facility] [address] [id number] [address] [place] [address], [place] [address] Aug, [facility] [address] [id number] [address] [place] [address], [place] [address] Aug, [facility] [address] [id number] [address] [place] [address], [place] [address] Aug, [facility] [address] [id number] [address] [place] [address], [place] [address] Aug, [facility] [address] [id number] [address] [place] [address], [place] [address] Aug, [facility] [address] [id number] [address] [place] [address], [place] [address] Aug, [facility] [address] [id number] [address] [place] [address], [place] [address] Aug, 2013 [facility] [address] [id number] [address] [place] [address], [place] [address] Aug, [facility] [address] [id number] [address] [place] [address], [place] [address] 17 Aug, 2013 [facility] [address] [id number] [address] [place] [address], [place] [address] 14 Aug, 2014 [facility] [address] [id number] [address] [place] [id number] 14 Aug, 2013 [facility] [address] [id number] [address] [place] [address], [place] [address] 09 Aug, 2013 [facility] [address] [id number] [address] [place] [address] Aug, 2013 [facility] [address] [id number] [address] [place] [id number] Aug, 2013 [facility] [address] [id number] [address] [place] [id number] Aug, 2013 [facility] [address] [id number] [address] [place] [address], [place] [address] 08 Aug, 2013 [facility] [address] [id number] [address] [place] [address] Aug, 2013 [facility] [address] [id number] [address] [place] [id number] Aug, 2013 [facility] [address] [id number] [address] [place] [address] Aug, 2013 [facility] [address] [id number] [address] [place] [id number] Aug, 2013 [facility] [address] [id number] [address] [place] [address] 30 Jul, 2013 [facility] [address] [id number] [address] [place] [id number] 30 Sep, 2013 [facility] [address] [id number] [address] [place] [id number] 29 Sep, 2013 [facility] [address] [id number] [address] [place] [id number] 29 Sep, 2013 [facility] [address] [id number] [address] [place] [id number] 19 Sep, 2013 [facility] [address] [id number] [address] [place] [id number] 19 Sep, 2013 [facility] [address] [id number] [facility] [place] [address] 18 Jul, 2013 [facility] [address] [id number] [facility] [place] [address] 18 Jul, 2013 [facility] [address] [id number] [facility] [place] [address] 17 Jul, 2013 [facility] [address] [id number] [facility] [place] [address] 17 Jul, 2013 [facility] [address] [id number] [facility] [place] [address] 10 Jul, 2013 [facility] [facility] [address] [id number] [address] [place] [address], [place] [id number] 10 Jul, 2014 [facility] [address] [id number] [address] [place] [address], [place] [id number] Jun, [facility] [address] [id number] [address] [place] [address], [place] [id number] Jun, [facility] [address] [id number] [address] [place] [address], [place] [id number] Jun, [facility] [address] [id number] [address] [place] [address], [place] [id number] Jun, [facility] [address] [id number] [address] [place] [address], [place] [address] Jun, [facility] [address] [id number] [address] [place] [address], [place] [id number] Jun, [facility] [address] [id number] [address] [place] [address], [place] [address] Jun, [facility] [address] [id number] [address] [place] [address], [place] [address] Jun, [facility] [address] [id number] [address] [place] [address], [place] [address] Jun, [facility] [address] [id number] [address] [place] [address], [place] [address] Jun, [facility] [address] [facility] [id number] [address] [place] [phone] Jun, [facility] [address] [facility] [id number] [address] [place] [id number] Jun, [facility] [address] [facility] [id number] [address] [place] [id number] May, [facility] [address] [facility] [id number] [address] [place] [id number] May, [facility] [address] [facility] [id number] [address] [place] [id number] May, IMMUNIZATIONS No Known Immunizations SOCIAL HISTORY Never Assessed REASON FOR VISIT [facility] [place] PLAN OF CARE VITAL [...]
--- OUTSIDE RECORDS SUMMARY | 2020-05-03 14:43 | XMS REPORT ---
Author Author Tracee Briceño Doctor Organization [facility] Address Unknown Phone Unavailable Care Team Providers Care Drier And Grinder Tender Name Role Phone Migration, Doctor Unavailable Unavailable PROBLEMS Type Condition ICD9-CM Code [id number] Code Onset Dates Condition S tatus SNOMED Code Problem Primary insomnia F51.01 Active 397 2004 Problem Breast pain N64.4 Active 01126985 Problem History of renal transplant Z94.0 Ac tive 532269144 Problem Violation of controlled substance agreement Z91.14 Active 371470517 Problem Mild intermittent asthma without complication J45. 20 Active 586635405 Problem Screening breast examination Z12.39 A ctive 796806140 Problem Irritable bowel syndrome without diarrhea K58.9 Active 48505267 Problem Irritable bowel syndrome with diarrhea K58.0 Active [id number] ALLERGIES No Information ENCOUNTERS Encounter Location Date Diagnosis [facility] [address] [id number] [address] [place] [address] [id number] Feb, [facility] [address] [id number] [address] [place] [address] [id number] Feb, Caries K02.9 [facility] [address] [id number] [address] [place] [address] [id number] Jan, [facility] [address] [id number] [address] [place] [address] [id number] Jan, Caries K02.9 [facility] [address] [id number] [address] [place] [address] [id number] Dec, [facility] [address] [facility] [id number] [address] [place] [address] [id number] 18 Dec, 2018 Dental examination Z01.20 an d Caries K02.9 [facility] [address] [place] [id number] [address] [place] [phone] 14 Sep, 2016 Dental examination Z01.20 [facility] [address] [facility] [id number] [address] [place] [phone] 08 Jan, 2016 Nausea R11.0 ; Irritable bow el syndrome without diarrhea K58.9 and History of renal transplant Z94.0 [place] [address] [facility] [id number] [address] [place] [phone] 2015 [place] [address] [place] [id number] [address] [place] [phone] 11 Dec, 2015 Breast pain N64.4 ; Screenin g breast examination Z12.39 and Mild intermittent asthma without complication J45.20 [place] [address] [facility] [id number] [address] [place] [phone] 10 Dec, 2015 [place] [address] [place] [id number] [place] [phone] 09 Dec, 2015 Kidney transplant status Z94 .0 ; Personal history of immunosupression therapy Z92.25 ; Recurrent UTI N39.0 and Encounter for screening, unspecified Z13.9 [place] [address] [facility] [id number] [address] [place] [phone] Oct, [place] [address] [place] [id number] [place] [phone] Oct, [place] [address] [place] [id number] [address] [place] [phone] Oct, [place] [address] [place] [id number] [address] [place] [phone] Oct, Hiatal hernia K44.9 and Atyp ical chest pain R07.89 [place] [address] [facility] [id number] [address] [place] [id number] Oct, [place] [address] [facility] [id number] [address] [place] [phone] Sep, Kidney replaced by transplan t V42.0 and Bilateral low back pain with sciatica, sciatica laterality unspecified M54.40 [place] [address] [place] [id number] [address] [place] [phone] Sep, [facility] [address] [id number] [address] [place] [phone] Sep, Kidney replaced by transplan t V42.0 ; Bilateral low back pain with sciatica, sciatica laterality unspecified M54.40 ; Anxiety F41.9 and Primary insomnia F51.01 [facility] [address] [id number] [address] [place] [phone] Aug, [facility] [address] [id number] [address] [place] [phone] Aug, [facility] [address] [id number] [address] [place] [phone] Aug, Kidney transplant status Z94 .0 ; Personal history of immunosupression therapy Z92.25 ; Recurrent urinary tract infection N39.0 and Screening Z13.9 [facility] [address] [facility] [id number] [address] [place] [phone] Aug, [facility] [address] [id number] [address] [place] [phone] Aug, Encounter for aftercare foll owing kidney transplant Z48.22 ; Chronic radicular pain of lower back M54.16 and PND (post-nasal drip) R09.82 [facility] [address] [facility] [id number] [address] [place] [phone] Jul, [facility] [address] [id number] [address] [place] [phone] Jul, [facility] [address] [id number] [address] [place] [phone] Jul, [facility] [address] [facility] [id number] [address] [place] [phone] Jul, Kidney replaced by transplan t V42.0 ; Depressive disorder, not elsewhere classified 311 ; Anxiety state, unspecified 300.00 ; Insomnia, unspecified 780.52 ; Irritable bowel syndrome 564.1 ; Chronic lumbar pain 724.2 and GERD (gastroesophageal reflux disease) 530.81 [facility] [address] [id number] [address] [place] [phone] Jul, [facility] [address] [id number] [address] [place] [phone] Jun, [facility] [address] [id number] [address] [place] [phone] Jun, [facility] [address] [id number] [address] [place] [phone] Jun, [facility] [address] [id number] [address] [place] [phone] Jun, Kidney replaced by transplan t V42.0 [facility] [address] [id number] [address] [place] [phone] May, [facility] [address] [facility] [id number] [address] [place] [phone] May, Depression with anxiety 300. 4 and Skin infection 686.9 [facility] [address] [id number] [address] [place] [phone] May, [facility] [address] [id number] [address] [place] [phone] May, Kidney replaced by transplan t V42.0 ; Recurrent UTI (urinary tract infection) 599.0 and Absence of menstruation 626.0 [facility] [address] [id number] [address] [place] [phone] May, [facility] [address] [id number] [address] [place] [phone] May, Depression with anxiety 300. 4 [facility] [address] [facility] [id number] [address] [place] [phone] May, [facility] [address] [facility] [id number] [address] [place] [phone] Apr, [facility] [address] [place] [id number] [address] [place] [phone] Apr, [facility] [address] [place] [id number] [place] [phone] Apr, Depression, major, recurrent , mild 296.31 [facility] [address] [id number] Apr, Depression, major, recurrent , mild 296.31 [facility] [address] [address] Apr, Cervicalgia 723.1 ; Lumbago 724.2 ; Anxiety state, unspecified 300.00 ; Nausea 787.02 ; 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 ; Recurrent UTI (urinary tract infection) 599.0 and Knee pain, bilateral 719.46 [place] [address] [id number] March, Depression, major, recurrent , mild 296.31 [place] [address] [id number] March, [place] [address] [id number] March, [place] [address] [id number] March, Lumbago 724.2 ; Insomnia, un specified 780.52 ; Depressive disorder, not elsewhere classified 311 ; 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 ; Anxiety 300.00 ; Allergic rhinitis 477.9 and GERD (gastroesophageal reflux disease) 530.81 [place] [address] [id number] Feb, [place] [address] [phone] Feb, [place] [address] [id number] Jan, [facility] [address] [id number] Jan, [facility] [address] [id number] [address] [place] [address], [place] [address] Jan, [facility] [address] [id number] [address] [place] [address], [place] [address] Jan, [facility] [address] [id number] [address] [place] [address], [place] [address] Dec, [facility] [address] [id number] [address] [place] [address], [place] [address] Dec, 2014 [facility] [address] [id number] [address] [place] [address], [place] [address] Dec, 2014 [facility] [address] [id number] [address] [place] [address], [place] [address] Dec, [facility] [address] [id number] [address] [place] [address], [place] [address] Dec, [facility] [address] [id number] [address] [place] [address], [place] [address] Dec, [facility] [address] [id number] [address] [place] [address], [place] [address] Dec, [facility] [address] [id number] [address] [place] [address], [place] [address] Nov, [facility] [address] [id number] [address] [place] [address], [place] [address] Nov, [facility] [address] [id number] [address] [place] [address], [place] [address] Nov, [facility] [address] [id number] [address] [place] [address], [place] [address] Nov, [facility] [address] [id number] [address] [place] [address], [place] [address] Nov, [facility] [address] [id number] [address] [place] [phone] Nov, [facility] [address] [id number] [address] [place] [address], [place] [address] Nov, [facility] [address] [id number] [address] [place] [address], [place] [address] Nov, [facility] [address] [id number] [address] [place] [address], [place] [address] Nov, [facility] [address] [id number] [address] [place] [address], [place] [address] Nov, [facility] [address] [id number] [address] [place] [address], [place] [address] Nov, [facility] [address] [id number] [address] [place] [address], [place] [address] Nov, [facility] [address] [id number] [address] [place] [address], [place] [address] Nov, [facility] [address] [id number] [address] [place] [address], [place] [address] Nov, [facility] [address] [id number] [address] [place] [address], [place] [address] Nov, [facility] [address] [id number] [address] [place] [address], [place] [address] Nov, [facility] [address] [id number] [address] [place] [address], [place] [address] Nov, [facility] [address] [id number] [address] [place] [address], [place] [address] Nov, [facility] [address] [id number] [address] [place] [address], [place] [address] Nov, [facility] [address] [id number] [address] [place] [address], [place] [address] Nov, [facility] [address] [id number] [address] [place] [address], [place] [address] Nov, [facility] [address] [id number] [address] [place] [address], [place] [address] Nov, [facility] [address] [id number] [address] [place] [address], [place] [address] Nov, [facility] [address] [id number] [address] [place] [address], [place] [address] Nov, [facility] [address] [id number] [address] [place] [address], [place] [address] Nov, [facility] [address] [id number] [address] [place] [address], [place] [address] Nov, [facility] [address] [id number] [address] [place] [address], [place] [address] Nov, [facility] [address] [id number] [address] [place] [address], [place] [address] Nov, [facility] [address] [id number] [address] [place] [address], [place] [address] Nov, [facility] [address] [id number] [address] [place] [address], [place] [address] Oct, [facility] [address] [id number] [address] [place] [address], [place] [address] Oct, [facility] [address] [id number] [address] [place] [address], [place] [address] Oct, [facility] [address] [id number] [address] [place] [address], [place] [address] Oct, [facility] [address] [id number] [address] [place] [address], [place] [address] Oct, [facility] [address] [id number] [address] [place] [address], [place] [address] Oct, [facility] [address] [id number] [address] [place] [address], [place] [address] Oct, [facility] [address] [id number] [address] [place] [address], [place] [address] Oct, [facility] [address] [id number] [address] [place] [address], [place] [address] 24 Oct, 2014 [facility] [address] [id number] [address] [place] [address], [place] [address] Oct, [facility] [address] [id number] [address] [place] [address], [place] [address] Oct, [facility] [address] [id number] [address] [place] [address], [place] [address] Oct, [facility] [address] [id number] [address] [place] [address], [place] [address] Oct, [facility] [address] [id number] [address] [place] [address], [place] [address] 17 Oct, 2014 [facility] [address] [id number] [address] [place] [address], [place] [address] 16 Oct, 2014 [facility] [address] [id number] [address] [place] [address], [place] [address] 16 Oct, 2014 [facility] [address] [id number] [address] [place] [address], [place] [address] 13 Oct, 2014 [facility] [address] [id number] [address] [place] [address], [place] [address] Oct, [facility] [address] [id number] [address] [place] [address], [place] [address] Oct, [facility] [address] [id number] [address] [place] [address], [place] [address] 05 Oct, 2014 [facility] [address] [id number] [address] [place] [address], [place] [address] 05 Oct, 2014 [facility] [address] [id number] [address] [place] [address], [place] [address] Oct, [facility] [address] [id number] [address] [place] [address], [place] [address] Oct, [facility] [address] [id number] [address] [place] [address], [place] [address] Sep, [facility] [address] [id number] [address] [place] [address], [place] [address] Sep, [facility] [address] [id number] [address] [place] [address], [place] [address] Sep, [facility] [address] [id number] [address] [place] [address], [place] [address] Sep, [facility] [address] [id number] [address] [place] [address], [place] [address] Sep, [facility] [address] [id number] [address] [place] [address], [place] [address] Sep, [facility] [address] [id number] [address] [place] [address], [place] [address] Sep, [facility] [address] [id number] [address] [place] [address], [place] [address] Sep, [facility] [address] [id number] [address] [place] [address], [place] [address] Sep, [facility] [address] [id number] [address] [place] [address], [place] [address] Sep, [facility] [address] [id number] [address] [place] [address], [place] [address] Sep, [facility] [address] [id number] [address] [place] [address] Sep, [facility] [address] [id number] [address] [place] [address] Sep, [facility] [address] [id number] [address] [place] [address], [place] [address] Sep, [facility] [address] [id number] [address] [place] [address], [place] [address] Sep, [facility] [address] [id number] [address] [place] [address], [place] [address] Sep, [facility] [address] [id number] [address] [place] [address] Sep, [facility] [address] [id number] [address] [place] [address], [place] [address] Sep, [facility] [address] [id number] [address] [place] [address], [place] [address] Sep, [facility] [address] [id number] [address] [place] [address], [place] [address] Sep, [facility] [address] [id number] [address] [place] [address], [place] [address] Sep, [facility] [address] [id number] [address] [place] [address], [place] [address] Sep, [facility] [address] [id number] [address] [place] [address], [place] [address] Sep, [facility] [address] [id number] [address] [place] [address], [place] [address] Sep, [facility] [address] [id number] [address] [place] [address], [place] [address] Sep, [facility] [address] [id number] [address] [place] [address], [place] [address] Sep, [facility] [address] [id number] [address] [place] [address], [place] [address] Sep, [facility] [address] [id number] [address] [place] [address], [place] [address] Sep, [facility] [address] [id number] [address] [place] [address] Aug, [facility] [address] [id number] [address] [place] [address], [place] [address] Aug, [facility] [address] [id number] [address] [place] [address], [place] [address] Aug, [facility] [address] [id number] [address] [place] [address], [place] [address] Aug, [facility] [address] [id number] [address] [place] [address], [place] [address] Aug, 2013 [facility] [address] [id number] [address] [place] [address], [place] [address] Aug, [facility] [address] [id number] [address] [place] [address], [place] [address] Aug, [facility] [address] [id number] [address] [place] [address], [place] [address] Aug, [facility] [address] [id number] [address] [place] [address], [place] [address] Aug, [facility] [address] [id number] [address] [place] [address], [place] [address] Aug, [facility] [address] [id number] [address] [place] [address], [place] [address] Aug, [facility] [address] [id number] [address] [place] [address], [place] [address] Aug, [facility] [address] [id number] [address] [place] [address], [place] [address] 20 Aug, 2014 [facility] [address] [id number] [address] [place] [address], [place] [address] 20 Aug, 2013 [facility] [address] [id number] [address] [place] [address], [place] [address] 20 Aug, 2014 [facility] [address] [id number] [address] [place] [address], [place] [address] 20 Aug, 2013 [facility] [address] [id number] [address] [place] [address], [place] [address] 17 Aug, 2014 [facility] [address] [id number] [address] [place] [address], [place] [address] 17 Aug, 2013 [facility] [address] [id number] [address] [place] [address], [place] [address] 14 Aug, 2013 [facility] [address] [id number] [address] [place] [address] [address] 14 Aug, 2014 [facility] [address] [id number] [address] [place] [address], [place] [address] 09 Aug, 2013 [facility] [address] [id number] [address] [place] [address], [place] [address] Aug, 2013 [facility] [address] [id number] [address] [place] [address], [place] [address] Aug, 2013 [facility] [address] [id number] [address] [place] [address], [place] [address] Aug, 2013 [facility] [address] [id number] [address] [place] [address], [place] [address] Aug, 2013 [facility] [address] [id number] [address] [place] [address], [place] [address] Aug, 2013 [facility] [address] [id number] [address] [place] [address], [place] [address] Aug, 2013 [facility] [address] [id number] [address] [place] [address], [place] [address] Aug, 2013 [facility] [address] [id number] [address] [place] [address], [place] [address] Aug, 2013 [facility] [address] [id number] [address] [place] [id number] 30 Jul, 2013 [facility] [address] [id number] [address] [place] [id number] 30 Sep, 2013 [facility] [address] [id number] [address] [place] [id number] 29 Sep, 2013 [facility] [address] [id number] [address] [place] [address], [place] [address] 29 Sep, 2013 [facility] [address] [id number] [address] [place] [id number] 19 Sep, 2013 [facility] [address] [id number] [address] [place] [id number] 19 Jul, 2013 [facility] [address] [id number] [facility] [address] 18 Jul, 2013 [facility] [address] [id number] [facility] [address] 18 Jul, 2013 [facility] [address] [id number] [facility] [address] 17 Jul, 2014 [facility] [address] [id number] [address] [place] [address], [place] [address] 17 Jul, 2013 [facility] [address] [id number] [address] [place] [address], [place] [address] 10 Jul, 2014 [facility] [address] [id number] [address] [place] [address], [place] [address] 10 Jul, 2014 [facility] [address] [id number] [address] [place] [address], [place] [address] Jun, [facility] [address] [id number] [address] [place] [address], [place] [address] Jun, [facility] [address] [id number] [address] [place] [address], [place] [address] Jun, [facility] [address] [id number] [address] [place] [address], [place] [address] Jun, [facility] [address] [id number] [address] [place] [address], [place] [address] Jun, [facility] [address] [id number] [address] [place] [address], [place] [address] Jun, [facility] [address] [id number] [address] [place] [address], [place] [address] Jun, [facility] [address] [id number] [address] [place] [address], [place] [address] Jun, [facility] [address] [id number] [address] [place] [address], [place] [address] Jun, [facility] [address] [id number] [address] [place] [address], [place] [address] Jun, [facility] [address] [facility] [id number] [address] [place] [id number] Jun, [facility] [address] [facility] [id number] [address] [place] [id number] Jun, [facility] [address] [facility] [id number] [address] [place] [id number] May, [facility] [address] [facility] [id number] [address] [place] [id number] May, [facility] [address] [facility] [id number] [address] [place] [id number] May, IMMUNIZATIONS No Known Immunizations SOCIAL HISTORY Never Assessed REASON FOR VISIT EMR-[facility] PLAN OF CARE VITAL SIGNS MEDICATIONS Unknown [...]
--- OUTSIDE RECORDS SUMMARY | 2020-05-03 14:43 | XMS REPORT ---
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 20 Active 618821226 Problem Screening breast examination Z12.39 A ctive 553517364 Problem Irritable bowel syndrome without diarrhea K58.9 Active 77503859 Problem Irritable bowel syndrome with diarrhea K58.0 Active [id number] ALLERGIES No Information ENCOUNTERS Encounter Location Date Diagnosis [facility] [address] [id number] [address] [place] [address] [id number] Feb, [facility] [address] [id number] [address] [place] [address] [id number] Feb, Caries K02.9 [facility] [address] [id number] [address] [place] [address] [id number] Jan, [facility] [address] [id number] [address] [place] [address] [id number] Jan, Caries K02.9 [facility] [address] [id number] [address] [place] [address] [id number] Dec, [facility] [address] [facility] [id number] [address] [place] [address] [id number] 18 Dec, 2018 Dental examination Z01.20 an d Caries K02.9 [facility] [address] [place] [id number] [address] [place] [id number] 14 Sep, 2016 Dental examination Z01.20 [facility] [address] [facility] [id number] [address] [place] [phone] 08 Jan, 2016 Nausea R11.0 ; Irritable bow el syndrome without diarrhea K58.9 and History of renal transplant Z94.0 [place] [address] [address] [facility] [id number] [address] [place] [id number] 2015 [place] [address] [place] [id number] [address] [place] [id number] 11 Dec, 2015 Breast pain N64.4 ; Screenin g breast examination Z12.39 and Mild intermittent asthma without complication J45.20 [place] [address] [address] [facility] [id number] [address] [place] [id number] 10 Dec, 2015 [place] [address] [place] [id number] [place] [phone] 09 Dec, 2015 Kidney transplant status Z94 .0 ; Personal history of immunosupression therapy Z92.25 ; Recurrent UTI N39.0 and Encounter for screening, unspecified Z13.9 [place] [address] [address] [facility] [id number] [address] [place] [phone] Oct, [place] [address] [place] [id number] [place] [phone] Oct, [place] [address] [place] [id number] [address] [place] [phone] Oct, [place] [address] [place] [id number] [address] [place] [id number] Oct, Hiatal hernia K44.9 and Atyp ical chest pain R07.89 [place] [address] [address] [facility] [id number] [address] [place] [phone] Oct, [place] [address] [address] [facility] [id number] [address] [place] [phone] Sep, Kidney replaced by transplan t V42.0 and Bilateral low back pain with sciatica, sciatica laterality unspecified M54.40 [place] [address] [place] [id number] [address] [place] [address] Sep, [facility] [address] [id number] [address] [place] [id number] Sep, Kidney replaced by transplan t V42.0 ; Bilateral low back pain with sciatica, sciatica laterality unspecified M54.40 ; Anxiety F41.9 and Primary insomnia F51.01 [facility] [address] [id number] [address] [place] [phone] Aug, [facility] [address] [id number] [address] [place] [phone] Aug, [facility] [address] [id number] [address] [place] [phone] Aug, Kidney transplant status Z94 .0 ; Personal history of immunosupression therapy Z92.25 ; Recurrent urinary tract infection N39.0 and Screening Z13.9 [facility] [address] [facility] [id number] [address] [place] [phone] Aug, [facility] [address] [id number] [address] [place] [address] Aug, Encounter for aftercare foll owing kidney transplant Z48.22 ; Chronic radicular pain of lower back M54.16 and PND (post-nasal drip) R09.82 [facility] [address] [facility] [id number] [address] [place] [id number] Jul, [facility] [address] [id number] [address] [place] [phone] Jul, [facility] [address] [id number] [address] [place] [address] Jul, [facility] [address] [facility] [id number] [address] [place] [address] Jul, Kidney replaced by transplan t V42.0 ; Depressive disorder, not elsewhere classified 311 ; Anxiety state, unspecified 300.00 ; Insomnia, unspecified 780.52 ; Irritable bowel syndrome 564.1 ; Chronic lumbar pain 724.2 and GERD (gastroesophageal reflux disease) 530.81 [facility] [address] [id number] [address] [place] [address] Jul, [facility] [address] [id number] [address] [place] [address] Jun, [facility] [address] [id number] [address] [place] [phone] Jun, [facility] [address] [id number] [address] [place] [phone] Jun, [facility] [address] [id number] [address] [place] [address] Jun, Kidney replaced by transplan t V42.0 [facility] [address] [id number] [address] [place] [phone] May, [facility] [address] [facility] [id number] [address] [place] [phone] May, Depression with anxiety 300. 4 and Skin infection 686.9 [facility] [address] [id number] [address] [place] [address] May, [facility] [address] [id number] [address] [place] [phone] May, Kidney replaced by transplan t V42.0 ; Recurrent UTI (urinary tract infection) 599.0 and Absence of menstruation 626.0 [facility] [address] [id number] [address] [place] [address] May, [facility] [address] [id number] [address] [place] [address] May, Depression with anxiety 300. 4 [facility] [address] [facility] [id number] [address] [place] [phone] May, [facility] [address] [facility] [id number] [address] [place] [address] Apr, [facility] [address] [place] [id number] [address] [place] [address] Apr, [facility] [address] [place] [id number] [place] [address] Apr, Depression, major, recurrent , mild 296.31 [facility] [address] [address] Apr, Depression, major, recurrent , mild 296.31 [facility] [address] [address] Apr, Cervicalgia 723.1 ; Lumbago 724.2 ; Anxiety state, unspecified 300.00 ; Nausea 787.02 ; 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 ; Recurrent UTI (urinary tract infection) 599.0 and Knee pain, bilateral 719.46 [place] [address] [address] March, Depression, major, recurrent , mild 296.31 [place] [address] [address] March, [place] [address] [address] March, [place] [address] [address] March, Lumbago 724.2 ; Insomnia, un specified 780.52 ; Depressive disorder, not elsewhere classified 311 ; 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 ; Anxiety 300.00 ; Allergic rhinitis 477.9 and GERD (gastroesophageal reflux disease) 530.81 [place] [address] [id number] Feb, [place] [address] [id number] Feb, [place] [address] [address] Jan, [facility] [address] [address] Jan, [facility] [address] [id number] [address] [place] [address], [place] [address] Jan, [facility] [address] [id number] [address] [place] [address], [place] [address] Jan, [facility] [address] [id number] [address] [place] [address], [place] [address] Dec, [facility] [address] [id number] [address] [place] [address], [place] [address] Dec, 2014 [facility] [address] [id number] [address] [place] [address], [place] [address] Dec, 2014 [facility] [address] [id number] [address] [place] [address], [place] [address] Dec, [facility] [address] [id number] [address] [place] [address], [place] [address] Dec, [facility] [address] [id number] [address] [place] [address], [place] [address] Dec, [facility] [address] [id number] [address] [place] [address], [place] [address] Dec, [facility] [address] [id number] [address] [place] [address], [place] [address] Nov, [facility] [address] [id number] [address] [place] [address], [place] [address] Nov, [facility] [address] [id number] [address] [place] [address], [place] [address] Nov, [facility] [address] [id number] [address] [place] [address], [place] [address] Nov, [facility] [address] [id number] [address] [place] [address], [place] [address] Nov, [facility] [address] [id number] [address] [place] [address] Nov, [facility] [address] [id number] [address] [place] [address], [place] [address] Nov, [facility] [address] [id number] [address] [place] [address], [place] [address] Nov, [facility] [address] [id number] [address] [place] [address], [place] [address] Nov, [facility] [address] [id number] [address] [place] [address], [place] [address] Nov, [facility] [address] [id number] [address] [place] [address], [place] [address] Nov, [facility] [address] [id number] [address] [place] [address], [place] [address] Nov, [facility] [address] [id number] [address] [place] [address], [place] [address] Nov, [facility] [address] [id number] [address] [place] [address], [place] [address] Nov, [facility] [address] [id number] [address] [place] [address], [place] [address] Nov, [facility] [address] [id number] [address] [place] [address], [place] [address] Nov, [facility] [address] [id number] [address] [place] [address], [place] [address] Nov, [facility] [address] [id number] [address] [place] [address], [place] [address] Nov, [facility] [address] [id number] [address] [place] [address], [place] [address] Nov, [facility] [address] [id number] [address] [place] [address], [place] [address] Nov, [facility] [address] [id number] [address] [place] [address], [place] [address] Nov, [facility] [address] [id number] [address] [place] [address], [place] [address] Nov, [facility] [address] [id number] [address] [place] [address], [place] [address] Nov, [facility] [address] [id number] [address] [place] [address], [place] [address] Nov, [facility] [address] [id number] [address] [place] [address], [place] [address] Nov, [facility] [address] [id number] [address] [place] [address], [place] [address] Nov, [facility] [address] [id number] [address] [place] [address], [place] [address] Nov, [facility] [address] [id number] [address] [place] [address], [place] [address] Nov, [facility] [address] [id number] [address] [place] [address], [place] [address] Nov, [facility] [address] [id number] [address] [place] [address], [place] [address] Oct, [facility] [address] [id number] [address] [place] [address], [place] [address] Oct, [facility] [address] [id number] [address] [place] [address], [place] [address] Oct, [facility] [address] [id number] [address] [place] [address], [place] [address] Oct, [facility] [address] [id number] [address] [place] [address], [place] [address] Oct, [facility] [address] [id number] [address] [place] [address], [place] [address] Oct, [facility] [address] [id number] [address] [place] [address], [place] [address] Oct, [facility] [address] [id number] [address] [place] [address], [place] [address] Oct, [facility] [address] [id number] [address] [place] [address], [place] [address] 24 Oct, 2014 [facility] [address] [id number] [address] [place] [address], [place] [address] Oct, [facility] [address] [id number] [address] [place] [address], [place] [address] Oct, [facility] [address] [id number] [address] [place] [address], [place] [address] Oct, [facility] [address] [id number] [address] [place] [address], [place] [address] Oct, [facility] [address] [id number] [address] [place] [address], [place] [address] 17 Oct, 2014 [facility] [address] [id number] [address] [place] [address], [place] [address] 16 Oct, 2014 [facility] [address] [id number] [address] [place] [address], [place] [address] 16 Oct, 2014 [facility] [address] [id number] [address] [place] [address], [place] [address] 13 Oct, 2014 [facility] [address] [id number] [address] [place] [address], [place] [address] Oct, [facility] [address] [id number] [address] [place] [address], [place] [address] Oct, [facility] [address] [id number] [address] [place] [address], [place] [address] 05 Oct, 2014 [facility] [address] [id number] [address] [place] [address], [place] [address] 05 Oct, 2014 [facility] [address] [id number] [address] [place] [address], [place] [address] Oct, [facility] [address] [id number] [address] [place] [address], [place] [address] Oct, [facility] [address] [id number] [address] [place] [address], [place] [address] Sep, [facility] [address] [id number] [address] [place] [address], [place] [address] Sep, [facility] [address] [id number] [address] [place] [address], [place] [address] Sep, [facility] [address] [id number] [address] [place] [address], [place] [address] Sep, [facility] [address] [id number] [address] [place] [address], [place] [address] Sep, [facility] [address] [id number] [address] [place] [address], [place] [address] Sep, [facility] [address] [id number] [address] [place] [address], [place] [address] Sep, [facility] [address] [id number] [address] [place] [address], [place] [address] Sep, [facility] [address] [id number] [address] [place] [address], [place] [address] Sep, [facility] [address] [id number] [address] [place] [address], [place] [address] Sep, [facility] [address] [id number] [address] [place] [address], [place] [address] Sep, [facility] [address] [id number] [address] [place] [id number] Sep, [facility] [address] [id number] [address] [place] [address] Sep, [facility] [address] [id number] [address] [place] [address], [place] [address] Sep, [facility] [address] [id number] [address] [place] [address], [place] [address] Sep, [facility] [address] [id number] [address] [place] [address], [place] [address] Sep, [facility] [address] [id number] [address] [place] [address] Sep, [facility] [address] [id number] [address] [place] [address], [place] [address] Sep, [facility] [address] [id number] [address] [place] [address], [place] [address] Sep, [facility] [address] [id number] [address] [place] [address], [place] [address] Sep, [facility] [address] [id number] [address] [place] [address], [place] [address] Sep, [facility] [address] [id number] [address] [place] [address], [place] [address] Sep, [facility] [address] [id number] [address] [place] [address], [place] [address] Sep, [facility] [address] [id number] [address] [place] [address], [place] [address] Sep, [facility] [address] [id number] [address] [place] [address], [place] [address] Sep, [facility] [address] [id number] [address] [place] [address], [place] [address] Sep, [facility] [address] [id number] [address] [place] [address], [place] [address] Sep, [facility] [address] [id number] [address] [place] [address], [place] [address] Sep, [facility] [address] [id number] [address] [place] [id number] Aug, [facility] [address] [id number] [address] [place] [address], [place] [address] Aug, [facility] [address] [id number] [address] [place] [address], [place] [address] Aug, [facility] [address] [id number] [address] [place] [address], [place] [address] Aug, [facility] [address] [id number] [address] [place] [address], [place] [address] Aug, 2013 [facility] [address] [id number] [address] [place] [address], [place] [address] Aug, [facility] [address] [id number] [address] [place] [address], [place] [address] Aug, [facility] [address] [id number] [address] [place] [address], [place] [address] Aug, [facility] [address] [id number] [address] [place] [address], [place] [address] Aug, [facility] [address] [id number] [address] [place] [address], [place] [address] Aug, [facility] [address] [id number] [address] [place] [address], [place] [address] Aug, [facility] [address] [id number] [address] [place] [address], [place] [address] Aug, [facility] [address] [id number] [address] [place] [address], [place] [id number] 20 Aug, 2014 [facility] [address] [id number] [address] [place] [address], [place] [id number] 20 Aug, 2013 [facility] [address] [id number] [address] [place] [address], [place] [id number] 20 Aug, 2014 [facility] [address] [id number] [address] [place] [address], [place] [id number] 20 Aug, 2013 [facility] [address] [id number] [address] [place] [address], [place] [id number] 17 Aug, 2014 [facility] [address] [id number] [address] [place] [address], [place] [id number] 17 Aug, 2013 [facility] [address] [id number] [address] [place] [address], [place] [id number] 14 Aug, 2013 [facility] [address] [id number] [address] [place] [address] [address] 14 Aug, 2014 [facility] [address] [id number] [address] [place] [address], [place] [id number] 09 Aug, 2013 [facility] [address] [id number] [address] [place] [address], [place] [id number] Aug, 2013 [facility] [address] [id number] [address] [place] [address], [place] [id number] Aug, 2013 [facility] [address] [id number] [address] [place] [address], [place] [id number] Aug, 2013 [facility] [address] [id number] [address] [place] [address], [place] [id number] Aug, 2013 [facility] [address] [id number] [address] [place] [address], [place] [id number] Aug, 2013 [facility] [address] [id number] [address] [place] [address], [place] [id number] Aug, 2013 [facility] [address] [id number] [address] [place] [address], [place] [id number] Aug, 2013 [facility] [address] [id number] [address] [place] [address], [place] [id number] Aug, 2013 [facility] [address] [id number] [address] [place] [id number] 30 Jul, 2013 [facility] [address] [id number] [address] [place] [id number] 30 Sep, 2013 [facility] [address] [id number] [address] [place] [id number] 29 Sep, 2013 [facility] [address] [id number] [address] [place] [address], [place] [id number] 29 Sep, 2013 [facility] [address] [id number] [address] [place] [id number] 19 Sep, 2013 [facility] [address] [id number] [address] [place] [id number] 19 Jul, 2013 [facility] [address] [id number] [address] [id number] 18 Jul, 2013 [facility] [address] [id number] [address] [id number] 18 Jul, 2013 [facility] [address] [id number] [address] [id number] 17 Jul, 2014 [facility] [address] [id number] [address] [place] [address], [place] [id number] 17 Jul, 2013 [facility] [address] [id number] [address] [place] [address], [place] [id number] 10 Jul, 2014 [facility] [address] [id number] [address] [place] [address], [place] [id number] 10 Jul, 2014 [facility] [address] [id number] [address] [place] [address], [place] [id number] Jun, [facility] [address] [id number] [address] [place] [address], [place] [id number] Jun, [facility] [address] [id number] [address] [place] [address], [place] [id number] Jun, [facility] [address] [id number] [address] [place] [address], [place] [id number] Jun, [facility] [address] [id number] [address] [place] [address], [place] [id number] Jun, [facility] [address] [id number] [address] [place] [address], [place] [id number] Jun, [facility] [address] [id number] [address] [place] [address], [place] [id number] Jun, [facility] [address] [id number] [address] [place] [address], [place] [id number] Jun, [facility] [address] [id number] [address] [place] [address], [place] [id number] Jun, [facility] [address] [id number] [address] [place] [address], [place] [id number] Jun, [facility] [address] [facility] [id number] [address] [place] [id number] Jun, [facility] [address] [facility] [id number] [address] [place] [id number] Jun, [facility] [address] [facility] [id number] [address] [place] [id number] May, [facility] [address] [facility] [id number] [address] [place] [id number] May, [facility] [address] [facility] [id number] [address] [place] [id number] May, IMMUNIZATIONS No Known Immunizations SOCIAL HISTORY Never Assessed REASON FOR VISIT EMR[place] [place]AN OF CARE VITAL SIGNS MEDICATIONS Unknown [...]
--- OUTSIDE RECORDS SUMMARY | 2020-05-03 14:43 | XMS REPORT ---
Author Author Tracee Briceño Doctor Organization [facility] Address Unknown Phone Unavailable Care Team Providers Care Credit Operations Processor Name Role Phone Migration, Doctor Unavailable Unavailable PROBLEMS Type Condition ICD9-CM Code BXT34-BL Code Onset Dates Condition S tatus SNOMED Code Problem Primary insomnia F51.01 Active 397 2004 Problem Breast pain N64.4 Active 82001322 Problem History of renal transplant Z94.0 Ac tive 197098240 Problem Violation of controlled substance agreement Z91.14 Active 288460991 Problem Mild intermittent asthma without complication J45. 20 Active 443764374 Problem Screening breast examination Z12.39 A ctive 365681232 Problem Irritable bowel syndrome without diarrhea K58.9 Active 86839208 Problem Irritable bowel syndrome with diarrhea K58.0 Active [id number] ALLERGIES No Information ENCOUNTERS Encounter Location Date Diagnosis [facility] [id number] [place] [address] [id number] Feb, Caries K02.9 [facility] [address] [facility] [id number] [place] [address] [id number] Feb, Caries K02.9 [facility] [id number] [place] [address] [id number] Jan, [facility] [address] [facility] [id number] [place] [address] [id number] Jan, Caries K02.9 [facility] [address] [facility] [id number] [address] [place] [address] [id number] Dec, [facility] [address] [facility] [id number] [place] [address] [id number] 18 Dec, 2018 Dental examination Z01.20 an d Caries K02.9 [facility] [address] [id number] [address] [place] [address] Sep, Dental examination Z01.20 [place] [address] [facility] [id number] [address] [place] [id number] 08 Jan, 2016 Nausea R11.0 ; Irritable bow el syndrome without diarrhea K58.9 and History of renal transplant Z94.0 [place] [address] [facility] [id number] [address] [place] [phone] 2015 [place] [address] [place] [id number] [place] [id number] 11 Dec, 2015 Breast pain N64.4 ; Screenin g breast examination Z12.39 and Mild intermittent asthma without complication J45.20 [place] [address] [address] 10 Dec, 2015 [place] [address] [place] [id number] [place] [phone] 09 Dec, 2015 Kidney transplant status Z94 .0 ; Personal history of immunosupression therapy Z92.25 ; Recurrent UTI N39.0 and Encounter for screening, unspecified Z13.9 [place] [id number] [place] [phone] Oct, [place] [address] [address] Oct, [place] [address] [place] [id number] [place] [phone] Oct, [place] [address] [place] [id number] [address] [place] [phone] Oct, Hiatal hernia K44.9 and Atyp ical chest pain R07.89 [place] [address] [place] [id number] [place] [phone] Oct, [place] [address] [place] [id number] [place] [phone] Sep, Kidney replaced by transplan t V42.0 and Bilateral low back pain with sciatica, sciatica laterality unspecified M54.40 [place] [address] [place] [address] Sep, [facility] [address] [id number] [address] [place] [id number] Sep, Kidney replaced by transplan t V42.0 ; Bilateral low back pain with sciatica, sciatica laterality unspecified M54.40 ; Anxiety F41.9 and Primary insomnia F51.01 [facility] [address] [facility] [id number] [address] [place] [phone] Aug, [facility] [address] [facility] [id number] [address] [place] [phone] Aug, [facility] [address] [facility] [id number] [address] [place] [phone] Aug, Kidney transplant status Z94 .0 ; Personal history of immunosupression therapy Z92.25 ; Recurrent urinary tract infection N39.0 and Screening Z13.9 [facility] [address] [facility] [id number] [address] [place] [phone] Aug, [facility] [address] [facility] [id number] [address] [place] [address] Aug, Encounter for aftercare foll owing kidney transplant Z48.22 ; Chronic radicular pain of lower back M54.16 and PND (post-nasal drip) R09.82 [facility] [address] [facility] [id number] [address] [place] [phone] Jul, [facility] [address] [facility] [id number] [address] [place] [id number] Jul, [facility] [address] [facility] [id number] [address] [place] [address] Jul, [facility] [address] [facility] [id number] [address] [place] [phone] Jul, Kidney replaced by transplan t V42.0 ; Depressive disorder, not elsewhere classified 311 ; Anxiety state, unspecified 300.00 ; Insomnia, unspecified 780.52 ; Irritable bowel syndrome 564.1 ; Chronic lumbar pain 724.2 and GERD (gastroesophageal reflux disease) 530.81 [facility] [address] [facility] [id number] [address] [place] [phone] Jul, [facility] [address] [id number] [address] [place] [phone] Jun, [facility] [address] [facility] [id number] [address] [place] [phone] Jun, [facility] [address] [id number] [address] [place] [phone] Jun, [facility] [address] [id number] [address] [place] [phone] Jun, Kidney replaced by transplan t V42.0 [facility] [address] [facility] [id number] [address] [place] [phone] May, [facility] [address] [facility] [id number] [address] [place] [phone] May, Depression with anxiety 300. 4 and Skin infection 686.9 [facility] [address] [facility] [id number] [address] [place] [phone] May, [facility] [address] [facility] [id number] [address] [place] [phone] May, Kidney replaced by transplan t V42.0 ; Recurrent UTI (urinary tract infection) 599.0 and Absence of menstruation 626.0 [facility] [address] [facility] [id number] [address] [place] [phone] May, [facility] [address] [facility] [id number] [address] [place] [phone] May, Depression with anxiety 300. 4 [facility] [address] [facility] [id number] [address] [place] [phone] May, [facility] [address] [facility] [id number] [address] [place] [address] Apr, [facility] [address] [place] [id number] [address] [place] [phone] Apr, [facility] [address] [facility] [id number] [address] [place] [address] Apr, Depression, major, recurrent , mild 296.31 [facility] [address] [place] [id number] [place] [address] Apr, Depression, major, recurrent , mild 296.31 [facility] [address] [place] [id number] [place] [address] Apr, Cervicalgia 723.1 ; Lumbago 724.2 ; Anxiety state, unspecified 300.00 ; Nausea 787.02 ; 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 ; Recurrent UTI (urinary tract infection) 599.0 and Knee pain, bilateral 719.[address] [address] March, Depression, major, recurrent , mild 296.31 [place] [address] [address] March, [address] [address] March, [place] [address] [place] [id number] [place] [phone] March, Lumbago 724.2 ; Insomnia, un specified 780.52 ; Depressive disorder, not elsewhere classified 311 ; 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 ; Anxiety 300.00 ; Allergic rhinitis 477.9 and GERD (gastroesophageal reflux disease) 530.81 [place] [address] [place] [id number] [place] [id number] Feb, [place] [id number] [place] [phone] Feb, [place] [address] [place] [id number] [place] [phone] Jan, [place] [address] [place] [address] Jan, [facility] [address] [id number] [address] [place] [address], [place] [address] Jan, [facility] [address] [id number] [address] [place] [address], [place] [address] Jan, [facility] [address] [id number] [address] [place] [address], [place] [address] Dec, 2014 [facility] [address] [id number] [address] [place] [address], [place] [address] Dec, 2014 [facility] [address] [id number] [address] [place] [address], [place] [address] Dec, 2014 [facility] [address] [id number] [address] [place] [address], [place] [address] Dec, [facility] [address] [id number] [address] [place] [address], [place] [address] Dec, [facility] [address] [id number] [address] [place] [address], [place] [address] Dec, [facility] [address] [id number] [address] [place] [address], [place] [address] Dec, [facility] [address] [id number] [address] [place] [address], [place] [address] Nov, [facility] [address] [id number] [address] [place] [address], [place] [address] Nov, [facility] [address] [id number] [address] [place] [address], [place] [address] Nov, [facility] [address] [id number] [address] [place] [address], [place] [address] Nov, [facility] [address] [id number] [address] [place] [address], [place] [address] Nov, [facility] [address] [id number] [address] [place] [address], [place] [address] Nov, [facility] [address] [id number] [address] [place] [address], [place] [address] Nov, [facility] [address] [id number] [address] [place] [address], [place] [address] Nov, [facility] [address] [id number] [address] [place] [address], [place] [address] Nov, [facility] [address] [id number] [address] [place] [address], [place] [address] Nov, [facility] [address] [id number] [address] [place] [address], [place] [address] Nov, [facility] [address] [id number] [address] [place] [address], [place] [address] Nov, [facility] [address] [id number] [address] [place] [address], [place] [address] Nov, [facility] [address] [id number] [address] [place] [address], [place] [address] Nov, [facility] [address] [id number] [address] [place] [address], [place] [address] Nov, [facility] [address] [id number] [address] [place] [address], [place] [address] Nov, [facility] [address] [id number] [address] [place] [address], [place] [address] Nov, [facility] [address] [id number] [address] [place] [address], [place] [address] Nov, [facility] [address] [id number] [address] [place] [address], [place] [address] Nov, [facility] [address] [id number] [address] [place] [address], [place] [address] Nov, [facility] [address] [id number] [address] [place] [address], [place] [address] Nov, [facility] [address] [id number] [address] [place] [address] [place] [address] Nov, [facility] [address] [id number] [address] [place] [address], [place] [address] Nov, [facility] [address] [id number] [address] [place] [address], [place] [address] Nov, [facility] [address] [id number] [address] [place] [address], [place] [address] Nov, [facility] [address] [id number] [address] [place] [address], [place] [address] Nov, [facility] [address] [id number] [address] [place] [address], [place] [address] Nov, [facility] [address] [id number] [address] [place] [address], [place] [address] Nov, [facility] [address] [id number] [address] [place] [address], [place] [address] Nov, [facility] [address] [id number] [address] [place] [address], [place] [address] Oct, [facility] [address] [id number] [address] [place] [address], [place] [address] Oct, [facility] [address] [id number] [address] [place] [address], [place] [address] Oct, [facility] [address] [id number] [address] [place] [address], [place] [address] Oct, [facility] [address] [id number] [address] [place] [address], [place] [address] Oct, [facility] [address] [id number] [address] [place] [address], [place] [address] Oct, [facility] [address] [id number] [address] [place] [address], [place] [address] Oct, [facility] [address] [id number] [address] [place] [address], [place] [address] Oct, [facility] [address] [id number] [address] [place] [address], [place] [address] 24 Oct, 2014 [facility] [address] [id number] [address] [place] [address], [place] [address] Oct, [facility] [address] [id number] [address] [place] [address], [place] [address] Oct, [facility] [address] [id number] [address] [place] [address], [place] [address] Oct, [facility] [address] [id number] [address] [place] [address], [place] [address] 17 Oct, 2014 [facility] [address] [id number] [address] [place] [address], [place] [address] 17 Oct, 2014 [facility] [address] [id number] [address] [place] [address], [place] [address] 16 Oct, 2014 [facility] [address] [id number] [address] [place] [address], [place] [address] 16 Oct, 2014 [facility] [address] [id number] [address] [place] [address], [place] [address] 13 Oct, 2014 [facility] [address] [id number] [address] [place] [address], [place] [address] Oct, [facility] [address] [id number] [address] [place] [address], [place] [address] Oct, [facility] [address] [id number] [address] [place] [address], [place] [address] 05 Oct, 2014 [facility] [address] [id number] [address] [place] [address], [place] [address] 05 Oct, 2014 [facility] [address] [id number] [address] [place] [address], [place] [address] Oct, [facility] [address] [id number] [address] [place] [address], [place] [address] Oct, [facility] [address] [id number] [address] [place] [address], [place] [address] Sep, [facility] [address] [id number] [address] [place] [address], [place] [address] Sep, [facility] [address] [id number] [address] [place] [address], [place] [address] Sep, [facility] [address] [id number] [address] [place] [address], [place] [address] Sep, [facility] [address] [id number] [address] [place] [address], [place] [address] Sep, [facility] [address] [id number] [address] [place] [address], [place] [address] Sep, [facility] [address] [id number] [address] [place] [address], [place] [address] Sep, [facility] [address] [id number] [address] [place] [address], [place] [address] Sep, [facility] [address] [id number] [address] [place] [address], [place] [address] Sep, [facility] [address] [id number] [address] [place] [address], [place] [address] Sep, [facility] [address] [id number] [address] [place] [address], [place] [address] Sep, [facility] [address] [id number] [address] [place] [address] Sep, [facility] [address] [id number] [address] [place] [id number] Sep, [facility] [address] [id number] [address] [place] [address], [place] [address] Sep, [facility] [address] [id number] [address] [place] [address], [place] [address] Sep, [facility] [address] [id number] [address] [place] [address], [place] [address] Sep, [facility] [address] [id number] [address] [place] [address], [place] [address] Sep, [facility] [address] [id number] [address] [place] [address], [place] [address] Sep, [facility] [address] [id number] [address] [place] [address], [place] [address] Sep, [facility] [address] [id number] [address] [place] [address], [place] [address] Sep, [facility] [address] [id number] [address] [place] [address], [place] [address] Sep, [facility] [address] [id number] [address] [place] [address], [place] [address] Sep, [facility] [address] [id number] [address] [place] [address], [place] [address] Sep, [facility] [address] [id number] [address] [place] [address], [place] [address] Sep, [facility] [address] [id number] [address] [place] [address], [place] [address] Sep, [facility] [address] [id number] [address] [place] [address], [place] [address] Sep, [facility] [address] [id number] [address] [place] [address], [place] [address] Sep, [facility] [address] [id number] [address] [place] [address], [place] [id number] Sep, [facility] [address] [id number] [address] [place] [address], [place] [id number] Aug, [facility] [address] [id number] [address] [place] [address], [place] [id number] Aug, [facility] [address] [id number] [address] [place] [address], [place] [id number] Aug, [facility] [address] [id number] [address] [place] [address], [place] [id number] Aug, [facility] [address] [id number] [address] [place] [address], [place] [id number] Aug, [facility] [address] [id number] [address] [place] [address], [place] [id number] Aug, [facility] [address] [id number] [address] [place] [address], [place] [id number] Aug, [facility] [address] [id number] [address] [place] [address], [place] [id number] Aug, [facility] [address] [id number] [address] [place] [address], [place] [id number] Aug, [facility] [address] [id number] [address] [place] [address], [place] [address] Aug, [facility] [address] [id number] [address] [place] [address], [place] [id number] Aug, [facility] [address] [id number] [address] [place] [address], [place] [id number] Aug, [facility] [address] [id number] [address] [place] [address], [place] [id number] Aug, [facility] [address] [id number] [address] [place] [address], [place] [id number] Aug, [facility] [address] [id number] [address] [place] [address], [place] [id number] Aug, [facility] [address] [id number] [address] [place] [address], [place] [id number] Aug, 2013 [facility] [address] [id number] [address] [place] [address], [place] [id number] Aug, [facility] [address] [id number] [address] [place] [address], [place] [id number] 17 Aug, 2013 [facility] [address] [id number] [address] [place] [address], [place] [id number] 14 Aug, 2014 [facility] [address] [id number] [address] [place] [id number] 14 Aug, 2013 [facility] [address] [id number] [address] [place] [address], [place] [id number] 09 Aug, 2013 [facility] [address] [id number] [address] [place] [id number] Aug, 2013 [facility] [address] [id number] [address] [place] [id number] Aug, 2013 [facility] [address] [id number] [address] [place] [id number] Aug, 2013 [facility] [address] [id number] [address] [place] [address], [place] [id number] 08 Aug, 2013 [facility] [address] [id number] [address] [place] [id number] Aug, 2013 [facility] [address] [id number] [address] [place] [id number] Aug, 2013 [facility] [address] [id number] [address] [place] [id number] Aug, 2013 [facility] [address] [id number] [address] [place] [id number] Aug, 2013 [facility] [address] [id number] [address] [place] [id number] 30 Jul, 2013 [facility] [address] [id number] [address] [place] [id number] 30 Sep, 2013 [facility] [address] [id number] [address] [place], [place] [id number] 29 Sep, 2013 [facility] [address] [id number] [address] [place] [id number] 29 Sep, 2013 [facility] [address] [id number] [address] [place] [id number] 19 Sep, 2013 [facility] [address] [id number] [address] [place] [id number] 19 Sep, 2013 [facility] [address] [id number] [address] [place] [id number] 18 Jul, 2013 [facility] [address] [id number] [facility] [place] [id number] 18 Jul, 2013 [facility] [address] [id number] [facility] [place] [id number] 17 Jul, 2013 [facility] [address] [id number] [facility] [place] [id number] 17 Jul, 2013 [facility] [address] [id number] [address] [place] [id number] 10 Jul, 2013 [facility] [address] [id number] [address] [place] [address], [place] [id number] 10 Jul, 2014 [facility] [address] [id number] [address] [place] [address], [place] [id number] Jun, [facility] [address] [id number] [address] [place] [address], [place] [id number] Jun, [facility] [address] [id number] [address] [place] [address], [place] [id number] Jun, [facility] [address] [id number] [address] [place] [address], [place] [id number] Jun, [facility] [address] [id number] [address] [place] [address], [place] [id number] Jun, [facility] [address] [id number] [address] [place] [address], [place] [id number] Jun, [facility] [address] [id number] [address] [place] [address], [place] [id number] Jun, [facility] [address] [id number] [address] [place] [address], [place] [id number] Jun, [facility] [address] [id number] [address] [place] [address], [place] [id number] Jun, [facility] [address] [id number] [address] [place] [address], [place] [id number] Jun, [facility] [address] [facility] [id number] [address] [place] [id number] Jun, [facility] [address] [facility] [id number] [address] [place] [id number] Jun, [facility] [address] [facility] [id number] [address] [place] [id number] May, [facility] [address] [facility] [id number] [address] [place] [id number] May, [facility] [address] [facility] [id number] [address] [place] [id number] May, IMMUNIZATIONS No Known Immunizations SOCIAL HISTORY Never Assessed REASON FOR VISIT [employer] [facility] PLAN OF CARE VITAL [...]
--- OUTSIDE RECORDS SUMMARY | 2020-05-03 14:43 | XMS REPORT ---
Author Author Tracee Briceño Doctor Organization [facility] Address Unknown Phone Unavailable Care Team Providers Care Returned Goods Receiving Clerk Name Role Phone Migration, Doctor Unavailable Unavailable PROBLEMS Type Condition ICD9-CM Code RAM57-QT Code Onset Dates Condition S tatus SNOMED Code Problem Primary insomnia F51.01 Active 397 2004 Problem Breast pain N64.4 Active 32652230 Problem History of renal transplant Z94.0 Ac tive 503487981 Problem Violation of controlled substance agreement Z91.14 Active 222934600 Problem Mild intermittent asthma without complication J45. 20 Active 679692350 Problem Screening breast examination Z12.39 A ctive 994775505 Problem Irritable bowel syndrome without diarrhea K58.9 Active 54688751 Problem Irritable bowel syndrome with diarrhea K58.0 Active [id number] ALLERGIES No Information ENCOUNTERS Encounter Location Date Diagnosis [facility] [address] [id number] [address] [place] [address] [id number] Feb, [facility] [address] [id number] [address] [place] [address] [id number] Feb, Caries K02.9 [facility] [address] [id number] [address] [place] [address] [id number] Jan, [facility] [address] [id number] [address] [place] [address] [id number] Jan, Caries K02.9 [facility] [address] [id number] [address] [place] [address] [id number] Dec, [facility] [address] [facility] [id number] [address] [place] [address] [id number] 18 Dec, 2018 Dental examination Z01.20 an d Caries K02.9 [facility] [address] [id number] [address] [place] [phone] 14 Sep, 2016 Dental examination Z01.20 [facility] [address] [facility] [id number] [address] [place] [phone] 08 Jan, 2016 Nausea R11.0 ; Irritable bow el syndrome without diarrhea K58.9 and History of renal transplant Z94.0 [place] [address] [address] [facility] [id number] [address] [place] [id number] 2015 [place] [address] [place] [id number] [address] [place] [phone] 11 Dec, 2015 Breast pain N64.4 ; Screenin g breast examination Z12.39 and Mild intermittent asthma without complication J45.20 [place] [address] [facility] [id number] [address] [place] [phone] 10 Dec, 2015 [place] [address] [place] [id number] [place] [phone] 09 Dec, 2015 Kidney transplant status Z94 .0 ; Personal history of immunosupression therapy Z92.25 ; Recurrent UTI N39.0 and Encounter for screening, unspecified Z13.9 [place] [address] [facility] [id number] [address] [place] [phone] Oct, [place] [address] [place] [id number] [place] [phone] Oct, [place] [address] [place] [id number] [address] [place] [phone] Oct, [place] [address] [place] [id number] [address] [place] [phone] Oct, Hiatal hernia K44.9 and Atyp ical chest pain R07.89 [place] [address] [facility] [id number] [address] [place] [phone] Oct, [place] [address] [facility] [id number] [address] [place] [phone] Sep, Kidney replaced by transplan t V42.0 and Bilateral low back pain with sciatica, sciatica laterality unspecified M54.40 [place] [address] [place] [id number] [address] [place] [phone] Sep, [facility] [address] [id number] [address] [place] [phone] Sep, Kidney replaced by transplan t V42.0 ; Bilateral low back pain with sciatica, sciatica laterality unspecified M54.40 ; Anxiety F41.9 and Primary insomnia F51.01 [facility] [address] [id number] [address] [place] [phone] Aug, [facility] [address] [id number] [address] [place] [phone] Aug, [facility] [address] [id number] [address] [place] [id number] Aug, Kidney transplant status Z94 .0 ; Personal history of immunosupression therapy Z92.25 ; Recurrent urinary tract infection N39.0 and Screening Z13.9 [facility] [address] [facility] [id number] [address] [place] [phone] Aug, [facility] [address] [id number] [address] [place] [phone] Aug, Encounter for aftercare foll owing kidney transplant Z48.22 ; Chronic radicular pain of lower back M54.16 and PND (post-nasal drip) R09.82 [facility] [address] [facility] [id number] [address] [place] [phone] Jul, [facility] [address] [id number] [address] [place] [phone] Jul, [facility] [address] [id number] [address] [place] [phone] Jul, [facility] [address] [facility] [id number] [address] [place] [address] Jul, Kidney replaced by transplan t V42.0 ; Depressive disorder, not elsewhere classified 311 ; Anxiety state, unspecified 300.00 ; Insomnia, unspecified 780.52 ; Irritable bowel syndrome 564.1 ; Chronic lumbar pain 724.2 and GERD (gastroesophageal reflux disease) 530.81 [facility] [address] [id number] [address] [place] [phone] Jul, [facility] [address] [id number] [address] [place] [phone] Jun, [facility] [address] [id number] [address] [place] [phone] Jun, [facility] [address] [id number] [address] [place] [phone] Jun, [facility] [address] [id number] [address] [place] [phone] Jun, Kidney replaced by transplan t V42.0 [facility] [address] [id number] [address] [place] [phone] May, [facility] [address] [facility] [id number] [address] [place] [phone] May, Depression with anxiety 300. 4 and Skin infection 686.9 [facility] [address] [id number] [address] [place] [phone] May, [facility] [address] [id number] [address] [place] [phone] May, Kidney replaced by transplan t V42.0 ; Recurrent UTI (urinary tract infection) 599.0 and Absence of menstruation 626.0 [facility] [address] [id number] [address] [place] [phone] May, [facility] [address] [id number] [address] [place] [phone] May, Depression with anxiety 300. 4 [facility] [address] [facility] [id number] [address] [place] [phone] May, [facility] [address] [facility] [id number] [address] [place] [phone] Apr, [facility] [address] [place] [id number] [address] [place] [address] Apr, [facility] [id number] [place] [phone] Apr, Depression, major, recurrent , mild 296.31 [facility] [address] [phone] Apr, Depression, major, recurrent , mild 296.31 [facility] [address] [address] Apr, Cervicalgia 723.1 ; Lumbago 724.2 ; Anxiety state, unspecified 300.00 ; Nausea 787.02 ; 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 ; Recurrent UTI (urinary tract infection) 599.0 and Knee pain, bilateral 719.46 [place] [address] [address] March, Depression, major, recurrent , mild 296.31 [place] [address] [id number] March, [place] [address] [id number] March, [place] [address] [address] March, Lumbago 724.2 ; Insomnia, un specified 780.52 ; Depressive disorder, not elsewhere classified 311 ; 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 ; Anxiety 300.00 ; Allergic rhinitis 477.9 and GERD (gastroesophageal reflux disease) 530.81 [place] [address] [phone] Feb, [place] [address] [id number] Feb, [place] [address] [id number] Jan, [facility] [address] [address] Jan, [facility] [address] [id number] [address] [place] [address], [place] [address] Jan, [facility] [address] [id number] [address] [place] [address], [place] [address] Jan, [facility] [address] [id number] [address] [place] [address], [place] [address] Dec, [facility] [address] [id number] [address] [place] [address], [place] [address] Dec, 2014 [facility] [address] [id number] [address] [place] [address], [place] [address] Dec, 2014 [facility] [address] [id number] [address] [place] [address], [place] [address] Dec, [facility] [address] [id number] [address] [place] [address], [place] [address] Dec, [facility] [address] [id number] [address] [place] [address], [place] [address] Dec, [facility] [address] [id number] [address] [place] [address], [place] [address] Dec, [facility] [address] [id number] [address] [place] [address], [place] [address] Nov, [facility] [address] [id number] [address] [place] [address], [place] [address] Nov, [facility] [address] [id number] [address] [place] [address], [place] [address] Nov, [facility] [address] [id number] [address] [place] [address], [place] [address] Nov, [facility] [address] [id number] [address] [place] [address], [place] [address] Nov, [facility] [address] [id number] [address] [place] [phone] Nov, [facility] [address] [id number] [address] [place] [address], [place] [address] Nov, [facility] [address] [id number] [address] [place] [address], [place] [address] Nov, [facility] [address] [id number] [address] [place] [address], [place] [address] Nov, [facility] [address] [id number] [address] [place] [address], [place] [address] Nov, [facility] [address] [id number] [address] [place] [address], [place] [address] Nov, [facility] [address] [id number] [address] [place] [address], [place] [address] Nov, [facility] [address] [id number] [address] [place] [address], [place] [address] Nov, [facility] [address] [id number] [address] [place] [address], [place] [address] Nov, [facility] [address] [id number] [address] [place] [address], [place] [address] Nov, [facility] [address] [id number] [address] [place] [address], [place] [address] Nov, [facility] [address] [id number] [address] [place] [address], [place] [address] Nov, [facility] [address] [id number] [address] [place] [address], [place] [address] Nov, [facility] [address] [id number] [address] [place] [address], [place] [address] Nov, [facility] [address] [id number] [address] [place] [address], [place] [address] Nov, [facility] [address] [id number] [address] [place] [address], [place] [address] Nov, [facility] [address] [id number] [address] [place] [address], [place] [address] Nov, [facility] [address] [id number] [address] [place] [address], [place] [address] Nov, [facility] [address] [id number] [address] [place] [address], [place] [address] Nov, [facility] [address] [id number] [address] [place] [address], [place] [address] Nov, [facility] [address] [id number] [address] [place] [address], [place] [address] Nov, [facility] [address] [id number] [address] [place] [address], [place] [address] Nov, [facility] [address] [id number] [address] [place] [address], [place] [address] Nov, [facility] [address] [id number] [address] [place] [address], [place] [address] Nov, [facility] [address] [id number] [address] [place] [address], [place] [address] Oct, [facility] [address] [id number] [address] [place] [address], [place] [address] Oct, [facility] [address] [id number] [address] [place] [address], [place] [address] Oct, [facility] [address] [id number] [address] [place] [address], [place] [address] Oct, [facility] [address] [id number] [address] [place] [address], [place] [address] Oct, [facility] [address] [id number] [address] [place] [address], [place] [address] Oct, [facility] [address] [id number] [address] [place] [address], [place] [address] Oct, [facility] [address] [id number] [address] [place] [address], [place] [address] Oct, [facility] [address] [id number] [address] [place] [address], [place] [address] 24 Oct, 2014 [facility] [address] [id number] [address] [place] [address], [place] [address] Oct, [facility] [address] [id number] [address] [place] [address], [place] [address] Oct, [facility] [address] [id number] [address] [place] [address], [place] [address] Oct, [facility] [address] [id number] [address] [place] [address], [place] [address] Oct, [facility] [address] [id number] [address] [place] [address], [place] [address] 17 Oct, 2014 [facility] [address] [id number] [address] [place] [address], [place] [address] 16 Oct, 2014 [facility] [address] [id number] [address] [place] [address], [place] [address] 16 Oct, 2014 [facility] [address] [id number] [address] [place] [address], [place] [address] 13 Oct, 2014 [facility] [address] [id number] [address] [place] [address], [place] [address] Oct, [facility] [address] [id number] [address] [place] [address], [place] [address] Oct, [facility] [address] [id number] [address] [place] [address], [place] [address] 05 Oct, 2014 [facility] [address] [id number] [address] [place] [address], [place] [address] 05 Oct, 2014 [facility] [address] [id number] [address] [place] [address], [place] [address] Oct, [facility] [address] [id number] [address] [place] [address], [place] [address] Oct, [facility] [address] [id number] [address] [place] [address], [place] [address] Sep, [facility] [address] [id number] [address] [place] [address], [place] [address] Sep, [facility] [address] [id number] [address] [place] [address], [place] [address] Sep, [facility] [address] [id number] [address] [place] [address], [place] [address] Sep, [facility] [address] [id number] [address] [place] [address], [place] [address] Sep, [facility] [address] [id number] [address] [place] [address], [place] [address] Sep, [facility] [address] [id number] [address] [place] [address], [place] [address] Sep, [facility] [address] [id number] [address] [place] [address], [place] [address] Sep, [facility] [address] [id number] [address] [place] [address], [place] [address] Sep, [facility] [address] [id number] [address] [place] [address], [place] [address] Sep, [facility] [address] [id number] [address] [place] [address], [place] [address] Sep, [facility] [address] [id number] [address] [place] [address] Sep, [facility] [address] [id number] [address] [place] [address] Sep, [facility] [address] [id number] [address] [place] [address], [place] [address] Sep, [facility] [address] [id number] [address] [place] [address], [place] [address] Sep, [facility] [address] [id number] [address] [place] [address], [place] [address] Sep, [facility] [address] [id number] [address] [place] [address] Sep, [facility] [address] [id number] [address] [place] [address], [place] [address] Sep, [facility] [address] [id number] [address] [place] [address], [place] [address] Sep, [facility] [address] [id number] [address] [place] [address], [place] [address] Sep, [facility] [address] [id number] [address] [place] [address], [place] [address] Sep, [facility] [address] [id number] [address] [place] [address], [place] [address] Sep, [facility] [address] [id number] [address] [place] [address], [place] [address] Sep, [facility] [address] [id number] [address] [place] [address], [place] [address] Sep, [facility] [address] [id number] [address] [place] [address], [place] [address] Sep, [facility] [address] [id number] [address] [place] [address], [place] [address] Sep, [facility] [address] [id number] [address] [place] [address], [place] [address] Sep, [facility] [address] [id number] [address] [place] [address], [place] [address] Sep, [facility] [address] [id number] [address] [place] [address] Aug, [facility] [address] [id number] [address] [place] [address], [place] [address] Aug, [facility] [address] [id number] [address] [place] [address], [place] [address] Aug, [facility] [address] [id number] [address] [place] [address], [place] [address] Aug, [facility] [address] [id number] [address] [place] [address], [place] [address] Aug, 2013 [facility] [address] [id number] [address] [place] [address], [place] [address] Aug, [facility] [address] [id number] [address] [place] [address], [place] [address] Aug, [facility] [address] [id number] [address] [place] [address], [place] [address] Aug, [facility] [address] [id number] [address] [place] [address], [place] [address] Aug, [facility] [address] [id number] [address] [place] [address], [place] [address] Aug, [facility] [address] [id number] [address] [place] [address], [place] [address] Aug, [facility] [address] [id number] [address] [place] [address], [place] [address] Aug, [facility] [address] [id number] [address] [place] [address], [place] [address] 20 Aug, 2014 [facility] [address] [id number] [address] [place] [address], [place] [address] 20 Aug, 2013 [facility] [address] [id number] [address] [place] [address], [place] [address] 20 Aug, 2014 [facility] [address] [id number] [address] [place] [address], [place] [address] 20 Aug, 2013 [facility] [address] [id number] [address] [place] [address], [place] [address] 17 Aug, 2014 [facility] [address] [id number] [address] [place] [address], [place] [address] 17 Aug, 2013 [facility] [address] [id number] [address] [place] [address], [place] [address] 14 Aug, 2013 [facility] [address] [id number] [address] [place] [address] [address] 14 Aug, 2014 [facility] [address] [id number] [address] [place] [address], [place] [address] 09 Aug, 2013 [facility] [address] [id number] [address] [place] [address], [place] [address] Aug, 2013 [facility] [address] [id number] [address] [place] [address], [place] [address] Aug, 2013 [facility] [address] [id number] [address] [place] [address], [place] [address] Aug, 2013 [facility] [address] [id number] [address] [place] [address], [place] [address] Aug, 2013 [facility] [address] [id number] [address] [place] [address], [place] [address] Aug, 2013 [facility] [address] [id number] [address] [place] [address], [place] [address] Aug, 2013 [facility] [address] [id number] [address] [place] [address], [place] [address] Aug, 2013 [facility] [address] [id number] [address] [place] [address], [place] [address] Aug, 2013 [facility] [address] [id number] [address] [place] [id number] 30 Jul, 2013 [facility] [address] [id number] [address] [place] [id number] 30 Sep, 2013 [facility] [address] [id number] [address] [place] [id number] 29 Sep, 2013 [facility] [address] [id number] [address] [place] [address], [place] [address] 29 Sep, 2013 [facility] [address] [id number] [address] [place] [id number] 19 Sep, 2013 [facility] [address] [id number] [address] [place] [id number] 19 Jul, 2013 [facility] [address] [id number] [facility] [place] [address] 18 Jul, 2013 [facility] [address] [id number] [address] [place] [address] 18 Jul, 2013 [facility] [address] [id number] [address] [place] [address] 17 Jul, 2014 [facility] [facility] [address] [id number] [address] [place] [address], [place] [id number] 17 Jul, 2013 [facility] [address] [id number] [address] [place] [address], [place] [address] 10 Jul, 2014 [facility] [address] [id number] [address] [place] [address], [place] [address] 10 Jul, 2014 [facility] [address] [id number] [address] [place] [address], [place] [address] Jun, [facility] [address] [id number] [address] [place] [address], [place] [address] Jun, [facility] [address] [id number] [address] [place] [address], [place] [address] Jun, [facility] [address] [id number] [address] [place] [address], [place] [address] Jun, [facility] [address] [id number] [address] [place] [address], [place] [address] Jun, [facility] [address] [id number] [address] [place] [address], [place] [address] Jun, [facility] [address] [id number] [address] [place] [address], [place] [address] Jun, [facility] [address] [id number] [address] [place] [address], [place] [address] Jun, [facility] [address] [id number] [address] [place] [address], [place] [address] Jun, [facility] [address] [id number] [address] [place] [address], [place] [address] Jun, [facility] [address] [facility] [id number] [address] [place] [id number] Jun, [facility] [address] [facility] [id number] [address] [place] [id number] Jun, [facility] [address] [facility] [id number] [address] [place] [id number] May, [facility] [address] [facility] [id number] [address] [place] [id number] May, [facility] [address] [facility] [id number] [address] [place] [id number] May, IMMUNIZATIONS No Known Immunizations SOCIAL HISTORY Never Assessed REASON FOR VISIT EMR-[facility] PLAN OF CARE VITAL SIGNS MEDICATIONS Unknown [...]
--- OUTSIDE RECORDS SUMMARY | 2020-05-03 14:44 | XMS REPORT ---
Author Author Tracee AVILA Organization [facility] Address [address] [place] [address] Care Team Providers Care Water Chemist Name Role Phone SARAI AVILA Unavailable PROBLEMS Type Condition ICD9-CM Code [id number] Code Onset Dates Condition S tatus SNOMED Code Problem Primary insomnia F51.01 Active 397 2004 Problem Breast pain N64.4 Active 13757431 Problem History of renal transplant Z94.0 Ac tive 149749644 Problem Violation of controlled substance agreement Z91.14 Active 465541297 Problem Mild intermittent asthma without complication J45. 20 Active 176990201 Problem Screening breast examination Z12.39 A ctive 944983930 Problem Irritable bowel syndrome without diarrhea K58.9 Active 14692143 Problem Irritable bowel syndrome with diarrhea K58.0 Active 121419037 ALLERGIES No Information ENCOUNTERS Encounter Location Date Diagnosis [facility] [id number] [place] [address] [id number] March, Dental examination Z01.20 [facility] [address] [id number] [address] [place] [address] [id number] Feb, Caries K02.9 [facility] [address] [id number] [address] [place] [address] [id number] Feb, Caries K02.9 [facility] [address] [id number] [address] [place] [address] [id number] Jan, [facility] [address] [id number] [address] [place] [address] [id number] Jan, Caries K02.9 [facility] [address] [id number] [address] [place] [address] [id number] Dec, [facility] [address] [id number] [address] [place] [address] [id number] Dec, 2018 Dental examination Z01.20 an d Caries K02.9 [place] [address] [id number] 14 Sep, 2016 Dental examination Z01.20 [place] [address] [place] [id number] [address] [place] [address] 08 Jan, 2016 Nausea R11.0 ; Irritable bow el syndrome without diarrhea K58.9 and History of renal transplant Z94.0 [place] [address] [id number] 2015 [place] [address] [address] 11 Dec, 2015 Breast pain N64.4 ; Screenin g breast examination Z12.39 and Mild intermittent asthma without complication J45.20 [place] [address] [id number] 10 Dec, 2015 [place] [address] [address] 09 Dec, 2015 Kidney transplant status Z94 .0 ; Personal history of immunosupression therapy Z92.25 ; Recurrent UTI N39.0 and Encounter for screening, unspecified Z13.9 [place] [address] [place] [id number] [address] [place] [address] Oct, [place] [address] [place] [id number] [address] [place] [phone] Oct, [place] [address] [place] [id number] [address] [place] [address] Oct, [place] [address] [address] Oct, Hiatal hernia K44.9 and Atyp ical chest pain R07.89 [place] [address] [place] [id number] [address] [place] [address] Oct, [place] [address] [id number] [address] [place] [address] Sep, Kidney replaced by transplan t V42.0 and Bilateral low back pain with sciatica, sciatica laterality unspecified M54.40 [facility] [address] [id number] [address] [place] [address] Sep, [facility] [address] [id number] [address] [place] [address] Sep, Kidney replaced by transplan t V42.0 ; Bilateral low back pain with sciatica, sciatica laterality unspecified M54.40 ; Anxiety F41.9 and Primary insomnia F51.01 [facility] [address] [id number] [address] [place] [address] Aug, [facility] [address] [id number] [address] [place] [address] Aug, [facility] [address] [id number] [address] [place] [phone] Aug, Kidney transplant status Z94 .0 ; Personal history of immunosupression therapy Z92.25 ; Recurrent urinary tract infection N39.0 and Screening Z13.9 [facility] [address] [id number] [address] [place] [address] Aug, [facility] [address] [id number] [address] [place] [address] Aug, Encounter for aftercare foll owing kidney transplant Z48.22 ; Chronic radicular pain of lower back M54.16 and PND (post-nasal drip) R09.82 [facility] [address] [id number] [address] [place] [address] Jul, [facility] [address] [id number] [address] [place] [address] Jul, [facility] [address] [id number] [address] [place] [address] Jul, [facility] [address] [id number] [address] [place] [address] Jul, Kidney replaced by transplan t V42.0 ; Depressive disorder, not elsewhere classified 311 ; Anxiety state, unspecified 300.00 ; Insomnia, unspecified 780.52 ; Irritable bowel syndrome 564.1 ; Chronic lumbar pain 724.2 and GERD (gastroesophageal reflux disease) 530.81 [facility] [address] [id number] [address] [place] [address] Jul, [facility] [address] [id number] [address] [place] [address] Jun, [facility] [address] [id number] [address] [place] [address] Jun, [facility] [address] [facility] [id number] [address] [place] [address] Jun, [facility] [address] [facility] [id number] [address] [place] [address] Jun, Kidney replaced by transplan t V42.0 [facility] [address] [facility] [id number] [address] [place] [address] May, [facility] [address] [facility] [id number] [address] [place] [address] May, Depression with anxiety 300. 4 and Skin infection 686.9 [facility] [address] [facility] [id number] [address] [place] [phone] May, [facility] [address] [id number] [address] [place] [address] May, Kidney replaced by transplan t V42.0 ; Recurrent UTI (urinary tract infection) 599.0 and Absence of menstruation 626.0 [facility] [address] [facility] [id number] [address] [place] [address] May, [facility] [address] [facility] [id number] [address] [place] [address] May, Depression with anxiety 300. 4 [place] [address] [place] [id number] [address] [place] [address] May, [facility] [address] [place] [id number] [address] [place] [address] Apr, [facility] [address] [place] [id number] [address] [place] [address] Apr, [facility] [address] [place] [id number] [address] [place] [address] Apr, Depression, major, recurrent , mild 296.31 [facility] [address] [place] [id number] [address] [place] [address] Apr, Depression, major, recurrent , mild 296.31 [place] [address] [place] [id number] [address] [place] [address] Apr, Cervicalgia 723.1 ; Lumbago 724.2 ; Anxiety state, unspecified 300.00 ; Nausea 787.02 ; 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 ; Recurrent UTI (urinary tract infection) 599.0 and Knee pain, bilateral 719.46 [place] [address] [place] [id number] [address] [place] [phone] March, Depression, major, recurrent , mild 296.31 [facility] [address] [place] [id number] [address] [place] [address] March, [facility] [address] [place] [id number] [address] [place] [address] March, [facility] [address] [place] [id number] [address] [place] [address] March, Lumbago 724.2 ; Insomnia, un specified 780.52 ; Depressive disorder, not elsewhere classified 311 ; 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 ; Anxiety 300.00 ; Allergic rhinitis 477.9 and GERD (gastroesophageal reflux disease) 530.81 [facility] [address] [place] [id number] [address] [place] [address] Feb, [facility] [address] [id number] [address] [place] [address], [place] [address] Feb, [facility] [address] [id number] [address] [place] [address], [place] [address] Jan, [facility] [address] [id number] [address] [place] [address], [place] [address] Jan, [facility] [address] [id number] [address] [place] [address], [place] [address] Jan, [facility] [address] [id number] [address] [place] [address], [place] [address] Jan, [facility] [address] [id number] [address] [place] [address], [place] [address] Dec, [facility] [address] [id number] [address] [place] [address], [place] [address] Dec, [facility] [address] [id number] [address] [place] [address], [place] [address] Dec, [facility] [address] [id number] [address] [place] [address], [place] [address] Dec, [facility] [address] [id number] [address] [place] [address], [place] [address] Dec, [facility] [address] [id number] [address] [place] [address], [place] [address] Dec, [facility] [address] [id number] [address] [place] [address], [place] [address] Dec, [facility] [address] [id number] [address] [place] [address], [place] [address] Nov, [facility] [address] [id number] [address] [place] [address], [place] [address] Nov, [facility] [address] [id number] [address] [place] [address], [place] [address] Nov, [facility] [address] [id number] [address] [place] [address] [address] Nov, [facility] [address] [id number] [address] [place] [address], [place] [address] Nov, [facility] [address] [id number] [address] [place] [address], [place] [address] Nov, [facility] [address] [id number] [address] [place] [address], [place] [address] Nov, [facility] [address] [id number] [address] [place] [address], [place] [address] Nov, [facility] [address] [id number] [address] [place] [address], [place] [address] Nov, [facility] [address] [id number] [address] [place] [address], [place] [address] Nov, [facility] [address] [id number] [address] [place] [address], [place] [address] Nov, [facility] [address] [id number] [address] [place] [address], [place] [address] Nov, [facility] [address] [id number] [address] [place] [address], [place] [address] Nov, [facility] [address] [id number] [address] [place] [address], [place] [address] Nov, [facility] [address] [id number] [address] [place] [address], [place] [address] Nov, [facility] [address] [id number] [address] [place] [address], [place] [address] Nov, [facility] [address] [id number] [address] [place] [address], [place] [address] Nov, [facility] [address] [id number] [address] [place] [address], [place] [address] Nov, [facility] [address] [id number] [address] [place] [address], [place] [address] Nov, [facility] [address] [id number] [address] [place] [address], [place] [address] Nov, [facility] [address] [id number] [address] [place] [address], [place] [address] Nov, [facility] [address] [id number] [address] [place] [address], [place] [address] Nov, [facility] [address] [id number] [address] [place] [address], [place] [address] Nov, [facility] [address] [id number] [address] [place] [address], [place] [address] Nov, [facility] [address] [id number] [address] [place] [address], [place] [address] Nov, [facility] [address] [id number] [address] [place] [address], [place] [address] Nov, [facility] [address] [id number] [address] [place] [address], [place] [address] Nov, [facility] [address] [id number] [address] [place] [address], [place] [address] Nov, [facility] [address] [id number] [address] [place] [address], [place] [address] Nov, [facility] [address] [id number] [address] [place] [address], [place] [address] Oct, [facility] [address] [id number] [address] [place] [address], [place] [address] Oct, [facility] [address] [id number] [address] [place] [address], [place] [address] Oct, [facility] [address] [id number] [address] [place] [address], [place] [address] Oct, [facility] [address] [id number] [address] [place] [address], [place] [address] Oct, [facility] [address] [id number] [address] [place] [address], [place] [address] Oct, [facility] [address] [id number] [address] [place] [address], [place] [address] Oct, [facility] [address] [id number] [address] [place] [address], [place] [address] Oct, [facility] [address] [id number] [address] [place] [address], [place] [address] Oct, [facility] [address] [id number] [address] [place] [address], [place] [address] Oct, [facility] [address] [id number] [address] [place] [address], [place] [address] Oct, [facility] [address] [id number] [address] [place] [address], [place] [address] Oct, [facility] [address] [id number] [address] [place] [address], [place] [address] Oct, [facility] [address] [id number] [address] [place] [address], [place] [address] Oct, [facility] [address] [id number] [address] [place] [address], [place] [address] Oct, [facility] [address] [id number] [address] [place] [address], [place] [address] Oct, [facility] [address] [id number] [address] [place] [address], [place] [address] Oct, [facility] [address] [id number] [address] [place] [address], [place] [address] Oct, [facility] [address] [id number] [address] [place] [address], [place] [address] Oct, [facility] [address] [id number] [address] [place] [address], [place] [address] 05 Oct, 2014 [facility] [address] [id number] [address] [place] [address], [place] [address] 05 Oct, 2014 [facility] [address] [id number] [address] [place] [address], [place] [address] Oct, [facility] [address] [id number] [address] [place] [address], [place] [address] Oct, [facility] [address] [id number] [address] [place] [address], [place] [address] Sep, [facility] [address] [id number] [address] [place] [address], [place] [address] Sep, [facility] [address] [id number] [address] [place] [address], [place] [address] Sep, [facility] [address] [id number] [address] [place] [address], [place] [address] Sep, [facility] [address] [id number] [address] [place] [address], [place] [address] Sep, [facility] [address] [id number] [address] [place] [address], [place] [address] Sep, [facility] [address] [id number] [address] [place] [address], [place] [address] Sep, [facility] [address] [id number] [address] [place] [address], [place] [address] Sep, [facility] [address] [id number] [address] [place] [address], [place] [address] Sep, [facility] [address] [id number] [address] [place] [address], [place] [address] Sep, [facility] [address] [id number] [address] [place] [address], [place] [address] Sep, [facility] [address] [id number] [address] [place] [address], [place] [address] Sep, [facility] [address] [id number] [address] [place] [address], [place] [address] Sep, [facility] [address] [id number] [address] [place] [address], [place] [address] Sep, [facility] [address] [id number] [address] [place] [address], [place] [address] Sep, [facility] [address] [id number] [address] [place] [address], [place] [address] Sep, [facility] [address] [id number] [address] [place] [address], [place] [address] Sep, [facility] [address] [id number] [address] [place] [address], [place] [address] Sep, [facility] [address] [id number] [address] [place] [address], [place] [address] Sep, [facility] [address] [id number] [address] [place] [address], [place] [address] Sep, [facility] [address] [id number] [address] [place] [address], [place] [address] Sep, [facility] [address] [id number] [address] [place] [address], [place] [address] Sep, [facility] [address] [id number] [address] [place] [address], [place] [address] Sep, [facility] [address] [id number] [address] [place] [address], [place] [address] Sep, [facility] [address] [id number] [address] [place] [address], [place] [address] Sep, [facility] [address] [id number] [address] [place] [address], [place] [address] Sep, [facility] [address] [id number] [address] [place] [address], [place] [address] Sep, [facility] [address] [id number] [address] [place] [address], [place] [address] Sep, [facility] [address] [id number] [address] [place] [address], [place] [address] Aug, [facility] [address] [id number] [address] [place] [address], [place] [address] Aug, [facility] [address] [id number] [address] [place] [address], [place] [address] Aug, [facility] [address] [id number] [address] [place] [address], [place] [address] Aug, [facility] [address] [id number] [address] [place] [address], [place] [address] Aug, [facility] [address] [id number] [address] [place] [address], [place] [address] Aug, [facility] [address] [id number] [address] [place] [address], [place] [address] Aug, [facility] [address] [id number] [address] [place] [address], [place] [address] Aug, [facility] [address] [id number] [address] [place] [address], [place] [address] Aug, [facility] [address] [id number] [address] [place] [address], [place] [address] Aug, [facility] [address] [id number] [address] [place] [address], [place] [address] Aug, [facility] [address] [id number] [address] [place] [id number] Aug, [facility] [address] [id number] [address] [place] [id number] Aug, [facility] [address] [id number] [address] [place] [id number] Aug, [facility] [address] [id number] [address] [place] [address], [place] [address] Aug, [facility] [address] [id number] [address] [place] [address], [place] [address] Aug, [facility] [address] [id number] [address] [place] [id number] Aug, [facility] [address] [id number] [address] [place] [id number] 17 Aug, 2013 [facility] [address] [id number] [address] [place] [address], [place] [address] 14 Aug, 2013 [facility] [address] [id number] [address] [place] [id number] 14 Aug, 2013 [facility] [address] [id number] [address] [place] [address], [place] [address] 09 Aug, 2013 [facility] [address] [id number] [address] [place] [id number] 09 Aug, 2013 [facility] [address] [id number] [address] [place] [address], [place] [address] Aug, 2013 [facility] [address] [id number] [address] [place] [address], [place] [address] Aug, 2013 [facility] [address] [id number] [address] [place] [id number] 08 Aug, 2013 [facility] [address] [id number] [address] [place] [id number] 07 Aug, 2013 [facility] [address] [id number] [address] [place] [id number] Aug, 2013 [facility] [address] [id number] [address] [place] [id number] Aug, 2013 [facility] [address] [id number] [address] [place] [id number] 07 Aug, 2013 [facility] [address] [id number] [address] [place] [id number] 30 Jul, 2013 [facility] [address] [id number] [address] [place] [id number] 30 Jul, 2013 [facility] [address] [id number] [address] [place] [id number] 29 Jul, 2013 [facility] [address] [id number] [address] [place] [id number] 29 Jul, 2013 [facility] [address] [id number] [facility] [place] [id number] 19 Jul, 2013 [facility] [address] [id number] [facility] [place] [address] 19 Jul, 2013 [facility] [address] [id number] [facility] [place] [address] 18 Jul, 2013 [facility] [address] [id number] [address] [place] [address] 18 Jul, 2013 [facility] [address] [id number] [facility] [place] [address] 17 Jul, 2013 [facility] [address] [id number] [address] [place] [address], [place] [address] 17 Jul, 2013 [facility] [address] [id number] [address] [place] [address], [place] [address] 10 Jul, 2013 [facility] [address] [id number] [address] [place] [address], [place] [address] 10 Jul, 2013 [facility] [address] [id number] [address] [place] [address], [place] [address] Jun, [facility] [address] [id number] [address] [place] [address], [place] [address] Jun, [facility] [address] [id number] [address] [place] [address], [place] [address] Jun, [facility] [address] [id number] [address] [place] [address], [place] [address] Jun, [facility] [address] [id number] [address] [place] [address], [place] [address] Jun, [facility] [address] [id number] [address] [place] [address], [place] [address] Jun, [facility] [address] [id number] [address] [place] [address], [place] [address] Jun, [facility] [address] [id number] [address] [place] [address] [address] Jun, [facility] [address] [id number] [address] [place] [id number] Jun, [facility] [address] [id number] [address] [place] [id number] Jun, [facility] [address] [id number] [address] [place] [id number] Jun, [facility] [address] [id number] [address] [place] [id number] Jun, [facility] [address] [id number] [address] [place] [phone] May, [facility] [address] [id number] [address] [place] [id number] May, [facility] [address] [id number] [address] [place] [id number] May, IMMUNIZATIONS No Known Immunizations SOCIAL HISTORY Never Assessed REASON FOR VISIT PLAN OF CARE VITAL SIGNS Height 67 in 2014-12-06 Weight 249.8 lbs 2014-12-06 Temperature 97 degrees Fahrenheit 2014-12-06 Heart Rate 80 bpm 2014-12-06 Respiratory Rate 18 2014-12-06 Blood pressure systolic 114 mmHg 2014-12-06 Blood pressure diastolic 76 mmHg 2014-12-06 MEDICATIONS Unknown Medications RESULTS No Results PROCEDURES Procedure Date Ordered Result Body Site CHORIONIC GONADOTROPIN ASSAY Dec 06, 2014 VENIPUNCT, ROUTINE* Dec 06, 2014 INSTRUCTIONS MEDICATIONS ADMINISTERED No Known [...]
--- OUTSIDE RECORDS SUMMARY | 2020-05-03 14:44 | XMS REPORT ---
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 20 Active 144505160 Problem Screening breast examination Z12.39 A ctive 492672535 Problem Irritable bowel syndrome without diarrhea K58.9 Active 71462235 Problem Irritable bowel syndrome with diarrhea K58.0 Active 369196249 ALLERGIES No Information ENCOUNTERS Encounter Location Date Diagnosis [facility] [id number] [place] [address] [id number] March, Dental examination Z01.20 [facility] [address] [id number] [address] [place] [address] [id number] Feb, Caries K02.9 [facility] [address] [id number] [address] [place] [address] [id number] Feb, Caries K02.9 [facility] [address] [id number] [address] [place] [address] [id number] Jan, [facility] [address] [id number] [address] [place] [address] [id number] Jan, Caries K02.9 [facility] [address] [id number] [address] [place] [address] [id number] Dec, [facility] [address] [id number] [address] [place] [address] [id number] 18 Dec, 2018 Dental examination Z01.20 an d Caries K02.9 [place] [address] [id number] 14 Sep, 2016 Dental examination Z01.20 [place] [address] [place] [id number] [address] [place] [id number] 08 Jan, 2016 Nausea R11.0 ; Irritable bow el syndrome without diarrhea K58.9 and History of renal transplant Z94.0 [place] [address] [id number] 2015 [place] [address] [address] 11 Dec, 2015 Breast pain N64.4 ; Screenin g breast examination Z12.39 and Mild intermittent asthma without complication J45.20 [place] [address] [address] 10 Dec, 2015 [place] [address] [address] 09 Dec, 2015 Kidney transplant status Z94 .0 ; Personal history of immunosupression therapy Z92.25 ; Recurrent UTI N39.0 and Encounter for screening, unspecified Z13.9 [place] [address] [place] [id number] [address] [place] [phone] Oct, [place] [address] [place] [id number] [address] [place] [phone] Oct, [place] [address] [place] [id number] [address] [place] [address] Oct, [place] [address] [address] Oct, Hiatal hernia K44.9 and Atyp ical chest pain R07.89 [place] [address] [place] [id number] [address] [place] [address] Oct, [place] [address] [id number] [address] [place] [address] Sep, Kidney replaced by transplan t V42.0 and Bilateral low back pain with sciatica, sciatica laterality unspecified M54.40 [facility] [address] [id number] [address] [place] [address] Sep, [facility] [address] [id number] [address] [place] [address] Sep, Kidney replaced by transplan t V42.0 ; Bilateral low back pain with sciatica, sciatica laterality unspecified M54.40 ; Anxiety F41.9 and Primary insomnia F51.01 [facility] [address] [id number] [address] [place] [address] Aug, [facility] [address] [id number] [address] [place] [phone] Aug, [facility] [address] [id number] [address] [place] [address] Aug, Kidney transplant status Z94 .0 ; Personal history of immunosupression therapy Z92.25 ; Recurrent urinary tract infection N39.0 and Screening Z13.9 [facility] [address] [id number] [address] [place] [address] Aug, [facility] [address] [id number] [address] [place] [address] Aug, Encounter for aftercare foll owing kidney transplant Z48.22 ; Chronic radicular pain of lower back M54.16 and PND (post-nasal drip) R09.82 [facility] [address] [id number] [address] [place] [address] Jul, [facility] [address] [id number] [address] [place] [address] Jul, [facility] [address] [id number] [address] [place] [address] Jul, [facility] [address] [id number] [address] [place] [address] Jul, Kidney replaced by transplan t V42.0 ; Depressive disorder, not elsewhere classified 311 ; Anxiety state, unspecified 300.00 ; Insomnia, unspecified 780.52 ; Irritable bowel syndrome 564.1 ; Chronic lumbar pain 724.2 and GERD (gastroesophageal reflux disease) 530.81 [facility] [address] [id number] [address] [place] [address] Jul, [facility] [address] [id number] [address] [place] [address] Jun, [facility] [address] [id number] [address] [place] [address] Jun, [facility] [address] [facility] [id number] [address] [place] [address] Jun, [facility] [address] [facility] [id number] [address] [place] [address] Jun, Kidney replaced by transplan t V42.0 [facility] [address] [facility] [id number] [address] [place] [address] May, [facility] [address] [facility] [id number] [address] [place] [address] May, Depression with anxiety 300. 4 and Skin infection 686.9 [facility] [address] [facility] [id number] [address] [place] [address] May, [facility] [address] [id number] [address] [place] [address] May, Kidney replaced by transplan t V42.0 ; Recurrent UTI (urinary tract infection) 599.0 and Absence of menstruation 626.0 [facility] [address] [facility] [id number] [address] [place] [address] May, [facility] [address] [facility] [id number] [address] [place] [address] May, Depression with anxiety 300. 4 [place] [address] [place] [id number] [address] [place] [address] May, [facility] [address] [place] [id number] [address] [place] [phone] Apr, [facility] [address] [place] [id number] [address] [place] [address] Apr, [facility] [address] [place] [id number] [address] [place] [address] Apr, Depression, major, recurrent , mild 296.31 [facility] [address] [place] [id number] [address] [place] [address] Apr, Depression, major, recurrent , mild 296.31 [place] [address] [place] [id number] [address] [place] [address] Apr, Cervicalgia 723.1 ; Lumbago 724.2 ; Anxiety state, unspecified 300.00 ; Nausea 787.02 ; 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 ; Recurrent UTI (urinary tract infection) 599.0 and Knee pain, bilateral 719.46 [place] [address] [place] [id number] [address] [place] [address] March, Depression, major, recurrent , mild 296.31 [facility] [address] [place] [id number] [address] [place] [address] March, [facility] [address] [place] [id number] [address] [place] [address] March, [facility] [address] [place] [id number] [address] [place] [address] March, Lumbago 724.2 ; Insomnia, un specified 780.52 ; Depressive disorder, not elsewhere classified 311 ; 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 ; Anxiety 300.00 ; Allergic rhinitis 477.9 and GERD (gastroesophageal reflux disease) 530.81 [facility] [address] [place] [id number] [address] [place] [address] Feb, [facility] [address] [id number] [address] [place] [address], [place] [address] Feb, [facility] [address] [id number] [address] [place] [address], [place] [address] Jan, [facility] [address] [id number] [address] [place] [address], [place] [address] Jan, [facility] [address] [id number] [address] [place] [address], [place] [address] Jan, [facility] [address] [id number] [address] [place] [address], [place] [address] Jan, [facility] [address] [id number] [address] [place] [address], [place] [address] Dec, [facility] [address] [id number] [address] [place] [address], [place] [address] Dec, [facility] [address] [id number] [address] [place] [address], [place] [address] Dec, [facility] [address] [id number] [address] [place] [address], [place] [address] Dec, [facility] [address] [id number] [address] [place] [address], [place] [address] Dec, [facility] [address] [id number] [address] [place] [address], [place] [address] Dec, [facility] [address] [id number] [address] [place] [address], [place] [address] Dec, [facility] [address] [id number] [address] [place] [address], [place] [address] Nov, [facility] [address] [id number] [address] [place] [address], [place] [address] Nov, [facility] [address] [id number] [address] [place] [address], [place] [address] Nov, [facility] [address] [id number] [address] [place] [address] [address] Nov, [facility] [address] [id number] [address] [place] [address], [place] [address] Nov, [facility] [address] [id number] [address] [place] [address], [place] [address] Nov, [facility] [address] [id number] [address] [place] [address], [place] [address] Nov, [facility] [address] [id number] [address] [place] [address], [place] [address] Nov, [facility] [address] [id number] [address] [place] [address], [place] [address] Nov, [facility] [address] [id number] [address] [place] [address], [place] [address] Nov, [facility] [address] [id number] [address] [place] [address], [place] [address] Nov, [facility] [address] [id number] [address] [place] [address], [place] [address] Nov, [facility] [address] [id number] [address] [place] [address], [place] [address] Nov, [facility] [address] [id number] [address] [place] [address], [place] [address] Nov, [facility] [address] [id number] [address] [place] [address], [place] [address] Nov, [facility] [address] [id number] [address] [place] [address], [place] [address] Nov, [facility] [address] [id number] [address] [place] [address], [place] [address] Nov, [facility] [address] [id number] [address] [place] [address], [place] [address] Nov, [facility] [address] [id number] [address] [place] [address], [place] [address] Nov, [facility] [address] [id number] [address] [place] [address], [place] [address] Nov, [facility] [address] [id number] [address] [place] [address], [place] [address] Nov, [facility] [address] [id number] [address] [place] [address], [place] [address] Nov, [facility] [address] [id number] [address] [place] [address], [place] [address] Nov, [facility] [address] [id number] [address] [place] [address], [place] [address] Nov, [facility] [address] [id number] [address] [place] [address], [place] [address] Nov, [facility] [address] [id number] [address] [place] [address], [place] [address] Nov, [facility] [address] [id number] [address] [place] [address], [place] [address] Nov, [facility] [address] [id number] [address] [place] [address], [place] [address] Nov, [facility] [address] [id number] [address] [place] [address], [place] [address] Nov, [facility] [address] [id number] [address] [place] [address], [place] [address] Oct, [facility] [address] [id number] [address] [place] [address], [place] [address] Oct, [facility] [address] [id number] [address] [place] [address], [place] [address] Oct, [facility] [address] [id number] [address] [place] [address], [place] [address] Oct, [facility] [address] [id number] [address] [place] [address], [place] [address] Oct, [facility] [address] [id number] [address] [place] [address], [place] [address] Oct, [facility] [address] [id number] [address] [place] [address], [place] [address] Oct, [facility] [address] [id number] [address] [place] [address], [place] [address] Oct, [facility] [address] [id number] [address] [place] [address], [place] [address] Oct, [facility] [address] [id number] [address] [place] [address], [place] [address] Oct, [facility] [address] [id number] [address] [place] [address], [place] [address] Oct, [facility] [address] [id number] [address] [place] [address], [place] [address] Oct, [facility] [address] [id number] [address] [place] [address], [place] [address] Oct, [facility] [address] [id number] [address] [place] [address], [place] [address] Oct, [facility] [address] [id number] [address] [place] [address], [place] [address] Oct, [facility] [address] [id number] [address] [place] [address], [place] [address] Oct, [facility] [address] [id number] [address] [place] [address], [place] [address] Oct, [facility] [address] [id number] [address] [place] [address], [place] [address] Oct, [facility] [address] [id number] [address] [place] [address], [place] [address] Oct, [facility] [address] [id number] [address] [place] [address], [place] [address] 05 Oct, 2014 [facility] [address] [id number] [address] [place] [address], [place] [address] 05 Oct, 2014 [facility] [address] [id number] [address] [place] [address], [place] [address] Oct, [facility] [address] [id number] [address] [place] [address], [place] [address] Oct, [facility] [address] [id number] [address] [place] [address], [place] [address] Sep, [facility] [address] [id number] [address] [place] [address], [place] [address] Sep, [facility] [address] [id number] [address] [place] [address], [place] [address] Sep, [facility] [address] [id number] [address] [place] [address], [place] [address] Sep, [facility] [address] [id number] [address] [place] [address], [place] [address] Sep, [facility] [address] [id number] [address] [place] [address], [place] [address] Sep, [facility] [address] [id number] [address] [place] [address], [place] [address] Sep, [facility] [address] [id number] [address] [place] [address], [place] [address] Sep, [facility] [address] [id number] [address] [place] [address], [place] [address] Sep, [facility] [address] [id number] [address] [place] [address], [place] [address] Sep, [facility] [address] [id number] [address] [place] [address], [place] [address] Sep, [facility] [address] [id number] [address] [place] [address], [place] [address] Sep, [facility] [address] [id number] [address] [place] [address], [place] [address] Sep, [facility] [address] [id number] [address] [place] [address], [place] [address] Sep, [facility] [address] [id number] [address] [place] [address], [place] [address] Sep, [facility] [address] [id number] [address] [place] [address], [place] [address] Sep, [facility] [address] [id number] [address] [place] [address], [place] [address] Sep, [facility] [address] [id number] [address] [place] [address], [place] [address] Sep, [facility] [address] [id number] [address] [place] [address], [place] [address] Sep, [facility] [address] [id number] [address] [place] [address], [place] [address] Sep, [facility] [address] [id number] [address] [place] [address], [place] [address] Sep, [facility] [address] [id number] [address] [place] [address], [place] [address] Sep, [facility] [address] [id number] [address] [place] [address], [place] [address] Sep, [facility] [address] [id number] [address] [place] [address], [place] [address] Sep, [facility] [address] [id number] [address] [place] [address], [place] [address] Sep, [facility] [address] [id number] [address] [place] [address], [place] [address] Sep, [facility] [address] [id number] [address] [place] [address], [place] [address] Sep, [facility] [address] [id number] [address] [place] [address], [place] [address] Sep, [facility] [address] [id number] [address] [place] [address], [place] [address] Aug, [facility] [address] [id number] [address] [place] [address], [place] [address] Aug, [facility] [address] [id number] [address] [place] [address], [place] [address] Aug, [facility] [address] [id number] [address] [place] [address], [place] [address] Aug, [facility] [address] [id number] [address] [place] [address], [place] [address] Aug, [facility] [address] [id number] [address] [place] [address], [place] [address] Aug, [facility] [address] [id number] [address] [place] [address], [place] [address] Aug, [facility] [address] [id number] [address] [place] [address], [place] [address] Aug, [facility] [address] [id number] [address] [place] [address], [place] [address] Aug, [facility] [address] [id number] [address] [place] [address], [place] [address] Aug, [facility] [address] [id number] [address] [place] [address], [place] [address] Aug, [facility] [address] [id number] [address] [place] [id number] Aug, [facility] [address] [id number] [address] [place] [address] Aug, [facility] [address] [id number] [address] [place] [id number] Aug, [facility] [address] [id number] [address] [place] [address], [place] [address] Aug, [facility] [address] [id number] [address] [place] [address], [place] [address] Aug, [facility] [address] [id number] [address] [place] [address] Aug, [facility] [address] [id number] [address] [place] [id number] 17 Aug, 2013 [facility] [address] [id number] [address] [place] [address], [place] [address] 14 Aug, 2013 [facility] [address] [id number] [address] [place] [id number] 14 Aug, 2013 [facility] [address] [id number] [address] [place] [address], [place] [address] 09 Aug, 2013 [facility] [address] [id number] [address] [place] [id number] 09 Aug, 2013 [facility] [address] [id number] [address] [place] [address], [place] [address] Aug, 2013 [facility] [address] [id number] [address] [place] [address], [place] [address] Aug, 2013 [facility] [address] [id number] [address] [place] [id number] 08 Aug, 2013 [facility] [address] [id number] [address] [place] [id number] 07 Aug, 2013 [facility] [address] [id number] [address] [place] [id number] Aug, 2013 [facility] [address] [id number] [address] [place] [id number] Aug, 2013 [facility] [address] [id number] [address] [place] [id number] 07 Aug, 2013 [facility] [address] [id number] [address] [place] [id number] 30 Jul, 2013 [facility] [address] [id number] [address] [place] [id number] 30 Jul, 2013 [facility] [address] [id number] [address] [place] [id number] 29 Jul, 2013 [facility] [address] [id number] [address] [place] [id number] 29 Jul, 2013 [facility] [address] [id number] [address] [place] [address] 19 Jul, 2013 [facility] [address] [id number] [address] [place] [address] 19 Jul, 2013 [facility] [address] [id number] [address] [place] [address] 18 Jul, 2013 [facility] [address] [id number] [address] [place] [address] 18 Jul, 2013 [facility] [address] [id number] [address] [place] [address] 17 Jul, 2013 [facility] [address] [id number] [address] [place] [address], [place] [address] 17 Jul, 2013 [facility] [address] [id number] [address] [place] [address], [place] [address] 10 Jul, 2013 [facility] [address] [id number] [address] [place] [address], [place] [address] 10 Jul, 2013 [facility] [address] [id number] [address] [place] [address], [place] [address] Jun, [facility] [address] [id number] [address] [place] [address], [place] [address] Jun, [facility] [address] [id number] [address] [place] [address], [place] [address] Jun, [facility] [address] [id number] [address] [place] [address], [place] [address] Jun, [facility] [address] [id number] [address] [place] [address], [place] [address] Jun, [facility] [address] [id number] [address] [place] [address], [place] [address] Jun, [facility] [address] [id number] [address] [place] [address], [place] [address] Jun, [facility] [address] [id number] [address] [place] [address] [address] Jun, [facility] [address] [id number] [address] [place] [id number] Jun, [facility] [address] [id number] [address] [place] [phone] Jun, [facility] [address] [id number] [address] [place] [phone] Jun, [facility] [address] [id number] [address] [place] [phone] Jun, [facility] [address] [id number] [address] [place] [phone] May, [facility] [address] [id number] [address] [place] [phone] May, [facility] [address] [id number] [address] [place] [phone] May, IMMUNIZATIONS No Known Immunizations SOCIAL HISTORY Never Assessed REASON FOR VISIT PLAN OF CARE VITAL SIGNS Height 67 in 2014-06-04 Weight 233.5 lbs 2014-06-04 Temperature 98 degrees Fahrenheit 2014-06-04 Heart Rate 82 bpm 2014-06-04 Respiratory Rate 18 2014-06-04 Blood pressure systolic 126 mmHg 2014-06-04 Blood pressure diastolic 70 mmHg 2014-06-04 MEDICATIONS Unknown Medications RESULTS No Results PROCEDURES Procedure Date Ordered Result Body Site COMPREHEN METABOLIC PANEL June 04, 2014 URINALYSIS, AUTO, W/O SCOPE June 04, 2014 VENIPUNCT, ROUTINE* June 04, 2014 INSTRUCTIONS MEDICATIONS ADMINISTERED No Known Medications [...]
--- OUTSIDE RECORDS SUMMARY | 2020-05-03 14:47 | XMS REPORT | Continuity of Care Document ---
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 CHEST PAIN 07/23/2018 FATOUMATA KIRKPATRICK MD Ot B86 SCABIES 07/23/2018 FATOUMATA KIRKPATRICK MD Ot F32. 9 MAJOR DEPRESSIVE DISORDER, SINGLE EPISOD 07/23/2018 FATOUMATA KIRKPATRICK MD Ot F41. 9 ANXIETY DISORDER, UNSPECIFIED 07/23/2018 FATOUMATA KIRKPATRICK MD Ot J45.909 UNSPECIFIED ASTHMA, UNCOMPLICATED 07/23/2018 FATOUMATA KIRKPATRICK MD Ot K21. 9 GASTRO-ESOPHAGEAL REFLUX DISEASE WITHOUT 07/23/2018 FATOUMATA KIRKPATRICK MD Ot R07. 9 CHEST PAIN, UNSPECIFIED 07/23/2018 FATOUMATA KIRKPATRICK MD Ot R55 SYNCOPE AND COLLAPSE 07/23/2018 FATOUMATA KIRKPATRICK MD Ot Z80. 7 FAM HX OF MALIG NEOPLM OF LYMPHOID, ERROL 07/23/2018 FATOUMATA KIRKPATRICK MD Ot Z87. 19 PERSONAL HISTORY OF OTHER DISEASES OF TH 07/23/2018 FATOUMATA KIRKPATRICK MD Ot Z87.440 PERSONAL HISTORY OF URINARY (TRACT) INFE 07/23/2018 FATOUMATA KIRKPATRICK MD Ot Z88. 2 ALLERGY STATUS TO SULFONAMIDES STATUS 07/23/2018 FATOUMATA KIRKPATRICK MD Ot Z88. 5 ALLERGY STATUS TO NARCOTIC AGENT STATUS 07/23/2018 FATOUMATA KIRKPATRICK MD Ot Z88. 7 ALLERGY STATUS TO SERUM AND VACCINE STAT 07/23/2018 FATOUMATA KIRKPATRICK MD Ot Z88. 8 ALLERGY STATUS TO OTH DRUG/MEDS/BIOL SUB 07/23/2018 FATOUMATA KIRKPATRICK MD Ot Z91.041 RADIOGRAPHIC DYE ALLERGY STATUS 07/23/2018 FATOUMATA KIRKPATRICK MD Ot Z94. 0 KIDNEY TRANSPLANT STATUS 07/25/2018 FATOUMATA KIRKPATRICK MD Ot B86 SCABIES 07/25/2018 FATOUMATA KIRKPATRICK MD Ot F32. 9 MAJOR DEPRESSIVE DISORDER, SINGLE EPISOD 07/25/2018 FATOUMATA KIRKPATRICK MD Ot F41. 9 ANXIETY DISORDER, UNSPECIFIED 07/25/2018 FATOUMATA KIRKPATRICK MD Ot J45.909 UNSPECIFIED ASTHMA, UNCOMPLICATED 07/25/2018 FATOUMATA KIRKPATRICK MD Ot K21. 9 GASTRO-ESOPHAGEAL REFLUX DISEASE WITHOUT 07/25/2018 FATOUMATA KIRKPATRICK MD Ot R07. 9 CHEST PAIN, UNSPECIFIED 07/25/2018 FATOUMATA KIRKPATRICK MD Ot R55 SYNCOPE AND COLLAPSE 07/25/2018 FATOUMATA KIRKPATRICK MD Ot Z80. 7 FAM HX OF [facility] OF LYMPHOID, ERROL 07/25/2018 FATOUMATA KIRKPATRICK MD Ot Z87. 19 PERSONAL HISTORY OF OTHER DISEASES OF TH 07/25/2018 FATOUMATA KIRKPATRICK MD Ot Z87.440 PERSONAL HISTORY OF URINARY (TRACT) INFE 07/25/2018 FATOUMATA KIRKPATRICK MD Ot Z88. 2 ALLERGY STATUS TO SULFONAMIDES STATUS 07/25/2018 FATOUMATA KIRKPATRICK MD Ot Z88. 5 ALLERGY STATUS TO NARCOTIC AGENT STATUS 07/25/2018 FATOUMATA KIRKPATRICK MD Ot Z88. 7 ALLERGY STATUS TO SERUM AND VACCINE STAT 07/25/2018 FATOUMATA KIRKPATRICK MD Ot Z88. 8 ALLERGY STATUS TO OTH DRUG/MEDS/BIOL SUB 07/25/2018 FATOUMATA KIRKPATRICK MD Ot Z91.041 RADIOGRAPHIC DYE ALLERGY STATUS 07/25/2018 KAYA MOLINA, FATOUMATA Martinez Ot Z94. 0 KIDNEY TRANSPLANT STATUS 07/26/2018 ANGELI SEXTON SENSOR SPECIALIST Ot R10. 11 RIGHT UPPER QUADRANT PAIN 07/26/2018 ANGELI SEXTON SENSOR SPECIALIST Ot R10. 13 EPIGASTRIC PAIN 07/26/2018 ANGELI SEXTON SENSOR SPECIALIST Ot R19. 7 DIARRHEA, UNSPECIFIED 07/26/2018 ANGELI SEXTON SENSOR SPECIALIST Ot Z94. 0 KIDNEY TRANSPLANT STATUS 08/14/2018 A 466.0 ACUT E BRONCHITIS 08/14/2018 A J20.9 ACUT E BRONCHITIS, UNSPECIFIED 08/27/2018 ANOOP MOLINA, NISH Cartwright Ot E03.9 HYPOTHYROIDISM, UNSPECIFIED 08/27/2018 ANOOP MOLINA, NISH Cartwright Ot F32.9 MAJOR DEPRESSIVE DISORDER, SINGLE EPISOD 08/27/2018 NISH DAVALOS MD, Ot F41.9 ANXIETY DISORDER, UNSPECIFIED 08/27/2018 ANOOP MOLINA, NISH Cartwright Ot J10.1 FLU DUE TO OTH IDENT INFLUENZA VIRUS W O 08/27/2018 ANOOP MOLINA, NISH Cartwright Ot J44.9 CHRONIC OBSTRUCTIVE PULMONARY DISEASE, U 08/27/2018 NISH DAVALOS MD, Ot K21.9 GASTRO-ESOPHAGEAL REFLUX DISEASE WITHOUT 08/27/2018 NISH DAVALOS MD, Ot R11.2 NAUSEA WITH VOMITING, UNSPECIFIED 08/27/2018 NISH DAVALOS MD, Ot R19.7 DIARRHEA, UNSPECIFIED 08/27/2018 NISH DAVALOS MD, Ot R51 HEADACHE 08/27/2018 NISH DAVALOS MD, Ot Z80.7 [facility] 08/27/2018 NISH DAVALOS MD, Ot Z87.19 PERSONAL HISTORY OF OTHER DISEASES OF TH 08/27/2018 NISH DAVALOS MD, Ot Z87.440 PERSONAL HISTORY OF URINARY (TRACT) INFE 08/27/2018 NISH DAVALOS MD, Ot Z88.2 ALLERGY STATUS TO SULFONAMIDES STATUS 08/27/2018 NISH DAVALOS MD, Ot Z88.5 ALLERGY STATUS TO NARCOTIC AGENT STATUS 08/27/2018 ANOOP MOLINA, NISH Cartwright Ot Z88.8 ALLERGY STATUS TO OTH DRUG/MEDS/BIOL SUB 08/27/2018 ANOOP MOLINA, NISH Cartwright Ot Z91.041 RADIOGRAPHIC DYE ALLERGY STATUS 08/27/2018 NISH DAVALOS MD, Ot Z94.0 KIDNEY TRANSPLANT STATUS 08/29/2018 Jermaine Doran W 455.0 INTERNAL HEMORRHOIDS WITHOUT MENTION OF COMPLICATION 08/29/2018 Jermaine Doran W 535.10 ATROPHIC GASTRITIS, WITHOUT MENTION OF HEMORRHAGE 08/29/2018 Jermaine Doran W 552.3 DIAPHRAGMATIC HERNIA WITH OBSTRUCTION 08/29/2018 Jermaine Doran W 562.12 DIVERTICULOSIS OF COLON WITH HEMORRHAGE 08/29/2018 Jermaine Doran W 787.3 FLATULENCE, ERUCTATION, AND GAS PAIN 08/29/2018 Jermaine Doran W 789.06 08/29/2018 Jermaine Doran W K29.30 CHRONIC SUPERFICIAL GASTRITIS WITHOUT BLEEDING 08/29/2018 Jermaine Doran W K44.9 DIAPHRAGMATIC HERNIA WITHOUT OBSTRUCTION OR GANGRENE 08/29/2018 Jermaine Doran W 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 08/29/2018 Jermaine Doran W K64.0 FIRST DEGREE HEMORRHOIDS 08/29/2018 Jermaine Doran W R10.13 EPIGASTRIC PAIN 08/29/2018 Jermaine Doran W R14.0 ABDOMINAL DISTENSION (GASEOUS) 08/30/2018 ANOOP MOLINA, NISH Cartwright Ot E03.9 HYPOTHYROIDISM, UNSPECIFIED 08/30/2018 NISH DAVALOS MD, Ot F32.9 MAJOR DEPRESSIVE DISORDER, SINGLE EPISOD 08/30/2018 NISH DAVALOS MD, Ot F41.9 ANXIETY DISORDER, UNSPECIFIED 08/30/2018 NISH DAVALOS MD, Ot J10.1 FLU DUE TO OTH IDENT INFLUENZA VIRUS W O 08/30/2018 NISH DAVALOS MD, Ot J44.9 CHRONIC OBSTRUCTIVE PULMONARY DISEASE, U 08/30/2018 NISH DAVALOS MD, Ot K21.9 GASTRO-ESOPHAGEAL REFLUX DISEASE WITHOUT 08/30/2018 NISH DAVALOS MD, Ot R11.2 NAUSEA WITH VOMITING, UNSPECIFIED 08/30/2018 NISH DAVALOS MD, Ot R19.7 DIARRHEA, UNSPECIFIED 08/30/2018 NISH DAVALOS MD, Ot R51 HEADACHE 08/30/2018 NISH DAVALOS MD, Ot Z80.7 FAM HX OF [facility] OF LYMPHOID, ERROL 08/30/2018 NISH DAVALOS MD, Ot Z87.19 PERSONAL HISTORY OF OTHER DISEASES OF TH 08/30/2018 NISH DAVALOS MD, Ot Z87.440 PERSONAL HISTORY OF URINARY (TRACT) INFE 08/30/2018 NISH DAVALOS MD, Ot Z88.2 ALLERGY STATUS TO SULFONAMIDES STATUS 08/30/2018 NISH DAVALOS MD, Ot Z88.5 ALLERGY STATUS TO NARCOTIC AGENT STATUS 08/30/2018 NISH DAVALOS MD, Ot Z88.8 ALLERGY STATUS TO OTH DRUG/MEDS/BIOL SUB 08/30/2018 NISH DAVALOS MD, Ot Z91.041 RADIOGRAPHIC DYE ALLERGY STATUS 08/30/2018 NISH DAVALOS MD, Ot Z94.0 KIDNEY TRANSPLANT STATUS 09/11/2018 ANGELI SEXTON SENSOR SPECIALIST Ot R10. 11 RIGHT UPPER QUADRANT PAIN 09/11/2018 ANGELI SEXTON SENSOR SPECIALIST Ot R10. 13 EPIGASTRIC PAIN 09/11/2018 ANGELI SEXTON SENSOR SPECIALIST Ot R19. 7 DIARRHEA, UNSPECIFIED 09/27/2018 W 133.0 SCABIES 09/27/2018 A 251.1 OTHE R SPECIFIED HYPOGLYCEMIA 09/27/2018 W B86 SCABIES 09/27/2018 A E16.1 OTHE R HYPOGLYCEMIA 10/18/2018 A 466.0 ACUT E BRONCHITIS 10/18/2018 A J20.9 ACUT E BRONCHITIS, UNSPECIFIED 10/25/2018 GERMAINE GRANDE MD Ot N25.81 SECONDARY HYPERPARATHYROIDISM OF RENAL O 10/25/2018 GERMAINE GRANDE MD Ot N39.0 URINARY TRACT INFECTION, SITE NOT SPECIF 10/25/2018 CHRISTIANE MOLINA, GERMAINE Zamora Ot Z92.25 PERSONAL HISTORY OF IMMUNOSUPRESSION THE 10/25/2018 GERMAINE GRANDE MD Ot Z94.0 KIDNEY TRANSPLANT STATUS 12/18/2018 ELSA YUMIKO MENDOZA Ot E03.9 HYPOTHYROIDISM, UNSPECIFIED 12/18/2018 ELSA DOURBANOA Kylie Ot E16.2 HYPOGLYCEMIA, UNSPECIFIED 12/18/2018 ELSA DOURBANOA Kylie Ot F32.9 MAJOR DEPRESSIVE DISORDER, SINGLE EPISOD 12/18/2018 ELSA DO, YUMIKO K Ot F41.9 ANXIETY DISORDER, UNSPECIFIED 12/18/2018 ELSA DO, YUMIKO K Ot J44.9 CHRONIC OBSTRUCTIVE PULMONARY DISEASE, U 12/18/2018 ELSA DO YUMIKO Kylie Ot K21.9 GASTRO-ESOPHAGEAL REFLUX DISEASE WITHOUT 12/18/2018 ELSA DO YUMIKO K Ot M41.9 SCOLIOSIS, UNSPECIFIED 12/18/2018 ELSA DO YUMIKO K Ot N18.6 END STAGE RENAL DISEASE 12/18/2018 ELSA DOURBANOA Kylie Ot N39.0 URINARY TRACT INFECTION, SITE NOT SPECIF 12/18/2018 URBANO HUNTER DOA Kylie Ot Z80.7 FAM HX OF MALIG [facility]OP[facility] OF LYMPHOID, ERROL 12/18/2018 YUMIKO HUNTER DO Ot Z87.19 PERSONAL HISTORY OF OTHER DISEASES OF TH 12/18/2018 YUMIKO HUNTER DO Ot Z88.2 ALLERGY STATUS TO SULFONAMIDES STATUS 12/18/2018 YUMIKO HUNTER DO Ot Z88.5 ALLERGY STATUS TO NARCOTIC AGENT STATUS 12/18/2018 YUMIKO HUNTER DO Ot Z88.7 ALLERGY STATUS TO SERUM AND VACCINE STAT 12/18/2018 YUMIKO HUNTER DO Ot Z88.8 ALLERGY STATUS TO OTH DRUG/MEDS/BIOL SUB 12/18/2018 YUMIKO HUNTER DO Ot Z90.89 ACQUIRED ABSENCE OF OTHER ORGANS 12/18/2018 YUMIKO HUNTER DO Ot Z91.040 LATEX ALLERGY STATUS 12/18/2018 YUMIKO HUNTER DO Ot Z94.0 KIDNEY TRANSPLANT STATUS 12/18/2018 YUMIKO HUNTER DO Ot Z98.890 OTHER SPECIFIED POSTPROCEDURAL STATES 12/18/2018 ELSA DO, YUMIKO K Ot Z99.2 DEPENDENCE ON RENAL DIALYSIS 12/18/2018 MARCO MOLINA, GRISEL Martinez Ot M79.661 PAIN IN RIGHT LOWER LEG 12/18/2018 MARCO MOLINA, GRISEL Martinez Ot M79.662 PAIN IN LEFT LOWER LEG 12/18/2018 SARAI AVILA SENSOR SPECIALIST Ot M54.16 RADICULOPATHY, LUMBAR REGION 12/18/2018 GERMAINE GRANDE MD A Ot N39.0 URINARY TRACT INFECTION, SITE NOT SPECIF 12/18/2018 GERMAINE GRANDE MD A Ot R63.5 ABNORMAL WEIGHT GAIN 12/18/2018 GERMAINE GRANDE MD A Ot Z09 ENCNTR FOR F/U EXAM AFT TRTMT FOR COND O 12/18/2018 DONNA GRANDE MDAL A Ot Z92.25 PERSONAL HISTORY OF IMMUNOSUPRESSION THE 12/18/2018 DONNA GRANDE MDAL A Ot Z94.0 KIDNEY TRANSPLANT STATUS 12/18/2018 GERMAINE GRANDE MD A Ot E87.5 HYPERKALEMIA 12/18/2018 DONNA GRANDE MDAL A Ot Z94.0 KIDNEY TRANSPLANT STATUS 12/18/2018 DONNA GRANDE MDAL A Ot R39.19 8 OTHER DIFFICULTIES WITH MICTURITION 12/18/2018 DONNA GRANDE MDAL A Ot Z94.0 KIDNEY TRANSPLANT STATUS 12/18/2018 DONNA GRANDE MDAL A Ot Z94.0 KIDNEY TRANSPLANT STATUS 12/18/2018 SKY MOLINA FAC, ALI FACP CCDS Ot I12.0 HYP CHR KIDNEY DISEASE W STAGE 5 CHR KID 12/18/2018 SKY MOLINA FACC, ALI FACP CCDS Ot N18.6 END STAGE RENAL DISEASE 12/18/2018 SKY MOLINA FAC, ALI FACP CCDS Ot R07.89 OTHER CHEST PAIN 12/18/2018 ANGELI SEXTON SENSOR SPECIALIST Ot R10. 11 RIGHT UPPER QUADRANT PAIN 12/18/2018 ANGELI SEXTON SENSOR SPECIALIST Ot R10. 13 EPIGASTRIC PAIN 12/18/2018 ANGELI SEXTON SENSOR SPECIALIST Ot R19. 7 DIARRHEA, UNSPECIFIED 12/18/2018 ANGELI SEXTON SENSOR SPECIALIST Ot Z94. 0 KIDNEY TRANSPLANT STATUS 12/18/2018 ANGELI SEXTON SENSOR SPECIALIST Ot R10. 11 RIGHT UPPER QUADRANT PAIN 12/18/2018 ANGELI SEXTON SENSOR SPECIALIST Ot R10. 13 EPIGASTRIC PAIN 12/18/2018 ANGELI SEXTON Ot R19. 7 DIARRHEA, UNSPECIFIED 12/18/2018 GERMAINE GRANDE MD Ot N25.81 SECONDARY HYPERPARATHYROIDISM OF RENAL O 12/18/2018 GERMAINE GRANDE MD Ot N39.0 URINARY TRACT INFECTION, SITE NOT SPECIF 12/18/2018 GERMAINE GRANDE MD Ot Z92.25 PERSONAL HISTORY OF IMMUNOSUPRESSION THE 12/18/2018 GERMAINE GRANDE MD Ot Z94.0 KIDNEY TRANSPLANT STATUS 12/19/2018 ELSA DO YUMIKO K Ot E03.9 HYPOTHYROIDISM, UNSPECIFIED 12/19/2018 ELSA DO YUMIKO K Ot E16.2 HYPOGLYCEMIA, UNSPECIFIED 12/19/2018 ELSA DO YUMIKO K Ot F32.9 MAJOR DEPRESSIVE DISORDER, SINGLE EPISOD 12/19/2018 ELSA DO YUMIKO K Ot F41.9 ANXIETY DISORDER, UNSPECIFIED 12/19/2018 ELSA DO YUMIKO K Ot J44.9 CHRONIC OBSTRUCTIVE PULMONARY DISEASE, U 12/19/2018 ELSA DO YUMIKO K Ot K21.9 GASTRO-ESOPHAGEAL REFLUX DISEASE WITHOUT 12/19/2018 ELSA DO YUMIKO K Ot M41.9 SCOLIOSIS, UNSPECIFIED 12/19/2018 ELSA DO YUMIKO K Ot N18.6 END STAGE RENAL DISEASE 12/19/2018 ELSA DO YUMIKO K Ot N39.0 URINARY TRACT INFECTION, SITE NOT SPECIF 12/19/2018 ELSA MENDOZA YUMIKO K Ot Z80.7 FAM HX OF MALIG NEOPLM OF LYMPHOID, ERROL 12/19/2018 URBANO HUNTER DOA K Ot Z87.19 PERSONAL HISTORY OF OTHER DISEASES OF TH 12/19/2018 ELSA MENDOZA YUMIKO K Ot Z88.2 ALLERGY STATUS TO SULFONAMIDES STATUS 12/19/2018 ELSA MENDOZA YUMIKO K Ot Z88.5 ALLERGY STATUS TO NARCOTIC AGENT STATUS 12/19/2018 URBANO HUNTER DOA K Ot Z88.7 ALLERGY STATUS TO SERUM AND VACCINE STAT 12/19/2018 URBANO HUNTER DOA K Ot Z88.8 ALLERGY STATUS TO OTH DRUG/MEDS/BIOL SUB 12/19/2018 URBANO HUNTER DOA K Ot Z90.89 ACQUIRED ABSENCE OF OTHER ORGANS 12/19/2018 YUMIKO HUNTER DO Ot Z91.040 LATEX ALLERGY STATUS 12/19/2018 ELSA DO YUMIKO K Ot Z94.0 KIDNEY TRANSPLANT STATUS 12/19/2018 ELSA DO YUMIKO K Ot Z98.890 OTHER SPECIFIED POSTPROCEDURAL STATES 12/19/2018 ELSA YUMIKO Kylie Ot Z99.2 DEPENDENCE ON RENAL DIALYSIS 12/23/2018 ELSA DO YUMIKO Kylie Ot E03.9 HYPOTHYROIDISM, UNSPECIFIED 12/23/2018 ELSA DO, YUMIKO Espinal Ot E16.2 HYPOGLYCEMIA, UNSPECIFIED 12/23/2018 ELSA DO, YUMIKO Kylie Ot F32.9 MAJOR DEPRESSIVE DISORDER, SINGLE EPISOD 12/23/2018 ELSA DO, YUMIKO Kylie Ot F41.9 ANXIETY DISORDER, UNSPECIFIED 12/23/2018 ELSA DOURBANOA Kylie Ot J44.9 CHRONIC OBSTRUCTIVE PULMONARY DISEASE, U 12/23/2018 ELSA DOURBANOA Kylie Ot K21.9 GASTRO-ESOPHAGEAL REFLUX DISEASE WITHOUT 12/23/2018 ELSA DOURBANOA Kylie Ot M41.9 SCOLIOSIS, UNSPECIFIED 12/23/2018 ELSA DOYUMIKO Ot N18.6 END STAGE RENAL DISEASE 12/23/2018 ELSA DOYUMIKO Ot N39.0 URINARY TRACT INFECTION, SITE NOT SPECIF 12/23/2018 ELSA YUMIKO MENDOZA Ot Z80.7 FAM HX OF MALIG [facility]OP[facility] OF LYMPHOID, ERROL 12/23/2018 ELSA YUMIKO MENDOZA Ot Z87.19 PERSONAL HISTORY OF OTHER DISEASES OF TH 12/23/2018 YUMIKO HUNTER DO Ot Z88.2 ALLERGY STATUS TO SULFONAMIDES STATUS 12/23/2018 ELSA YUMIKO MENDOZA Ot Z88.5 ALLERGY STATUS TO NARCOTIC AGENT STATUS 12/23/2018 ELSA YUMIKO MENDOZA Ot Z88.7 ALLERGY STATUS TO SERUM AND VACCINE STAT 12/23/2018 ELSA YUMIKO MENDOZA Ot Z88.8 ALLERGY STATUS TO OTH DRUG/MEDS/BIOL SUB 12/23/2018 ELSA YUMIKO MENDOZA Ot Z90.89 ACQUIRED ABSENCE OF OTHER ORGANS 12/23/2018 ELSA YUMIKO MENDOZA Ot Z91.040 LATEX ALLERGY STATUS 12/23/2018 ELSA DOYUMIKO Ot Z94.0 KIDNEY TRANSPLANT STATUS 12/23/2018 ELSA YUMIKO MENDOZA Ot Z98.890 OTHER SPECIFIED POSTPROCEDURAL STATES 12/23/2018 ELSA YUMIKO K Ot Z99.2 DEPENDENCE ON RENAL DIALYSIS 01/12/2019 ELSA YUMIKO Ot E03.9 HYPOTHYROIDISM, UNSPECIFIED 01/12/2019 ELSA DOYUMIKO Ot E16.2 HYPOGLYCEMIA, UNSPECIFIED 01/12/2019 ELSA DO, YUMIKO Espinal Ot F32.9 MAJOR DEPRESSIVE DISORDER, SINGLE EPISOD 01/12/2019 ELSA DOYUMIKO Ot F41.9 ANXIETY DISORDER, UNSPECIFIED 01/12/2019 ELSA DO YUMIKO K Ot J44.9 CHRONIC OBSTRUCTIVE PULMONARY DISEASE, U 01/12/2019 ELSA YUMIKO Ot K21.9 GASTRO-ESOPHAGEAL REFLUX DISEASE WITHOUT 01/12/2019 ELSA DOYUMIKO Ot M41.9 SCOLIOSIS, UNSPECIFIED 01/12/2019 ELSA DOYUMIKO Ot N18.6 END STAGE RENAL DISEASE 01/12/2019 ELSA DOYUMIKO Ot N39.0 URINARY TRACT INFECTION, SITE NOT SPECIF 01/12/2019 YUMIKO HUNTER DO Ot Z80.7 FAM HX OF [facility] OF LYMPHOID, ERROL 01/12/2019 ELSA YUMIKO MENDOZA Ot Z87.19 PERSONAL HISTORY OF OTHER DISEASES OF TH 01/12/2019 YUMIKO HUNTER DO Ot Z88.2 ALLERGY STATUS TO SULFONAMIDES STATUS 01/12/2019 ELSA YUMIKO MENDOZA Ot Z88.5 ALLERGY STATUS TO NARCOTIC AGENT STATUS 01/12/2019 YUMIKO HUNTER DO Ot Z88.7 ALLERGY STATUS TO SERUM AND VACCINE STAT 01/12/2019 ELSA YUMIKO MENDOZA Ot Z88.8 ALLERGY STATUS TO OTH DRUG/MEDS/BIOL SUB 01/12/2019 ELSA YUMIKO MENDOZA Ot Z90.89 ACQUIRED ABSENCE OF OTHER ORGANS 01/12/2019 YUMIKO HUNTER DO Ot Z91.040 LATEX ALLERGY STATUS 01/12/2019 ELSA YUMIKO MENDOZA Ot Z94.0 KIDNEY TRANSPLANT STATUS 01/12/2019 ELSA YUMIKO MENDOZA Ot Z98.890 OTHER SPECIFIED POSTPROCEDURAL STATES 01/12/2019 ELSA YUMIKO MENDOZA Ot Z99.2 DEPENDENCE ON RENAL DIALYSIS 01/26/2019 W 522.4 ACUT E APICAL PERIODONTITIS OF PULPAL ORIGIN 01/26/2019 W K04.7 JESSE APICAL ABSCESS WITHOUT SINUS 02/06/2019 W 780.52 INS OMNIA, UNSPECIFIED 02/11/2019 ELSA YUMIKO MENDOZA Ot E03.9 HYPOTHYROIDISM, UNSPECIFIED 02/11/2019 ELSA YUMIKO MENDOZA Ot E78.00 PURE HYPERCHOLESTEROLEMIA, UNSPECIFIED 02/11/2019 ELSA YUMIKO MENDOZA Ot F32.9 MAJOR DEPRESSIVE DISORDER, SINGLE EPISOD 02/11/2019 [facility].9 ANXIETY DISORDER, UNSPECIFIED 02/11/2019 ELSA YUMIKO Ot J44.9 CHRONIC OBSTRUCTIVE PULMONARY DISEASE, U 02/11/2019 ELSA YUMIKO MENDOZA Ot K21.9 GASTRO-ESOPHAGEAL REFLUX DISEASE WITHOUT 02/11/2019 ELSA YUMIKO MENDOZA Ot N18.6 END STAGE RENAL DISEASE 02/11/2019 ELSA YUMIKO MENDOZA Ot R10.9 UNSPECIFIED ABDOMINAL PAIN 02/11/2019 ELSA YUMIKO MENDOZA Ot R14.0 ABDOMINAL DISTENSION (GASEOUS) 02/11/2019 YUMIKO HUNTER DO Ot Z80.7 FAM HX OF MALIG [facility] OF LYMPHOID, ERROL 02/11/2019 YUMIKO HUNTER DO Ot Z87.19 PERSONAL HISTORY OF OTHER DISEASES OF TH 02/11/2019 YUMIKO HUNTER DO Ot Z87.440 PERSONAL HISTORY OF URINARY (TRACT) INFE 02/11/2019 YUMIKO HUNTER DO Ot Z88.2 ALLERGY STATUS TO SULFONAMIDES STATUS 02/11/2019 YUMIKO HUNTER DO Ot Z88.5 ALLERGY STATUS TO NARCOTIC AGENT STATUS 02/11/2019 ELSA YUMIKO MENDOZA Ot Z88.7 ALLERGY STATUS TO SERUM AND VACCINE STAT 02/11/2019 YUMIKO HUNTER DO Ot Z88.8 ALLERGY STATUS TO OTH DRUG/MEDS/BIOL SUB 02/11/2019 ELSA YUMIKO MENDOZA Ot Z90.89 ACQUIRED ABSENCE OF OTHER ORGANS 02/11/2019 YUMIKO HUNTER DO Ot Z91.040 LATEX ALLERGY STATUS 02/11/2019 ELSA YUMIKO MENDOZA Ot Z94.0 KIDNEY TRANSPLANT STATUS 02/11/2019 ELSA YUMIKO MENDOZA Ot Z99.2 DEPENDENCE ON RENAL DIALYSIS 02/13/2019 ELSA YUMIKO Kylie Ot E03.9 HYPOTHYROIDISM, UNSPECIFIED 02/13/2019 ELSA DO YUMIKO Kylie Ot E78.00 PURE HYPERCHOLESTEROLEMIA, UNSPECIFIED 02/13/2019 [facility] Ot F32.9 MAJOR DEPRESSIVE DISORDER, SINGLE EPISOD 02/13/2019 [facility] YUMIKO Kylie Ot F41.9 ANXIETY DISORDER, UNSPECIFIED 02/13/2019 [facility] YUMIKO Kylie Ot J44.9 CHRONIC OBSTRUCTIVE PULMONARY DISEASE, U 02/13/2019 ELSA DO YUMIKO Kylie Ot K21.9 GASTRO-ESOPHAGEAL REFLUX DISEASE WITHOUT 02/13/2019 ELSA YUMIKO K Ot N18.6 END STAGE RENAL DISEASE 02/13/2019 ELSA DO YUMIKO K Ot R10.9 UNSPECIFIED ABDOMINAL PAIN 02/13/2019 [facility] Ot R14.0 ABDOMINAL DISTENSION (GASEOUS) 02/13/2019 ELSA YUMIKO MENDOZA Ot Z80.7 FAM HX OF [facility] OF LYMPHOID, ERROL 02/13/2019 ELSA YUMIKO MENDOZA Ot Z87.19 PERSONAL HISTORY OF OTHER DISEASES OF TH 02/13/2019 ELSA YUMIKO MENDOZA Ot Z87.440 PERSONAL HISTORY OF URINARY (TRACT) INFE 02/13/2019 YUMIKO HUNTER DO Ot Z88.2 ALLERGY STATUS TO SULFONAMIDES STATUS 02/13/2019 ELSA YUMIKO MENDOZA Ot Z88.5 ALLERGY STATUS TO NARCOTIC AGENT STATUS 02/13/2019 ELSA YUMIKO MENDOZA Ot Z88.7 ALLERGY STATUS TO SERUM AND VACCINE STAT 02/13/2019 ELSA YUMIKO MENDOZA Ot Z88.8 ALLERGY STATUS TO OTH DRUG/MEDS/BIOL SUB 02/13/2019 ABERDEEN YUMIKO MENDOZA Ot Z90.89 ACQUIRED ABSENCE OF OTHER ORGANS 02/13/2019 ELSA YUMIKO MENDOZA Ot Z91.040 LATEX ALLERGY STATUS 02/13/2019 ABERDEEN YUMIKO MENDOZA Ot Z94.0 KIDNEY TRANSPLANT STATUS 02/13/2019 ELSA YUMIKO MENDOZA Ot Z99.2 DEPENDENCE ON RENAL DIALYSIS 02/21/2019 W 296.30 ZULEIMA OR DEPRESSIVE DISORDER, RECURRENT EPISODE, UNSPECIFIED DEGREE 02/21/2019 W 300.02 GEN ERALIZED ANXIETY DISORDER 02/21/2019 W 564.1 IRRI TABLE BOWEL SYNDROME 02/21/2019 W F33.9 MARY R DEPRESSIVE DISORDER, RECURRENT, UNSPECIFIED 02/21/2019 W F41.1 GENE RALIZED ANXIETY DISORDER 02/21/2019 W K58.0 IRRI TABLE BOWEL SYNDROME WITH DIARRHEA 02/22/2019 MILLY MIRANDA PRIMER CHARGING TOOL SETTER Ot K29.00 ACUTE GASTRITIS WITHOUT BLEEDING 02/22/2019 MILLY MIRANDA PRIMER CHARGING TOOL SETTER Ot K29.80 DUODENITIS WITHOUT BLEEDING 02/22/2019 MILLY MIRANDA PRIMER CHARGING TOOL SETTER Ot K31.84 GASTROPARESIS 02/22/2019 MILLY MIRANDA PRIMER CHARGING TOOL SETTER Ot R11.0 NAUSEA 02/22/2019 MILLY MIRANDA PRIMER CHARGING TOOL SETTER Ot R14.0 ABDOMINAL DISTENSION (GASEOUS) 02/22/2019 MILLY MIRANDA PRIMER CHARGING TOOL SETTER Ot R63.0 ANOREXIA 04/06/2019 GERMAINE GRANDE MD Ot D89.89 OTH DISRD INVOLVING THE IMMUNE MECHANISM 04/06/2019 GERMAINE GRANDE MD Ot E16.2 HYPOGLYCEMIA, UNSPECIFIED 04/06/2019 GERMAINE GRANDE MD Ot E87.2 ACIDOSIS 04/06/2019 GERMAINE GRANDE MD Ot N39.0 URINARY TRACT INFECTION, SITE NOT SPECIF 04/06/2019 GERMAINE GRANDE MD Ot Z94.0 KIDNEY TRANSPLANT STATUS 04/10/2019 GERMAINE GRANDE MD Ot D89.89 OTH DISRD INVOLVING THE IMMUNE MECHANISM 04/10/2019 GERMAINE GRANDE MD Ot E16.2 HYPOGLYCEMIA, UNSPECIFIED 04/10/2019 GERMAINE GRANDE MD Ot E87.2 ACIDOSIS 04/10/2019 GERMAINE GRANDE MD Ot N39.0 URINARY TRACT INFECTION, SITE NOT SPECIF 04/10/2019 GERMAINE GRANDE MD Ot Z94.0 KIDNEY TRANSPLANT STATUS 04/15/2019 MILLY MIRANDA PRIMER CHARGING TOOL SETTER Ot K29.00 ACUTE GASTRITIS WITHOUT BLEEDING 04/15/2019 MILLY MIRANDA PRIMER CHARGING TOOL SETTER Ot K29.80 DUODENITIS WITHOUT BLEEDING 04/15/2019 MILLY MIRANDA PRIMER CHARGING TOOL SETTER Ot K31.84 GASTROPARESIS 04/15/2019 MILLY MIRANDA PRIMER CHARGING TOOL SETTER Ot R11.0 NAUSEA 04/15/2019 MILLY MIRANDA PRIMER CHARGING TOOL SETTER Ot R14.0 ABDOMINAL DISTENSION (GASEOUS) 04/15/2019 MILLY MIRANDA PRIMER CHARGING TOOL SETTER Ot R63.0 ANOREXIA 04/16/[address] OF FACE, NECK, AND SCALP EXCEPT EYE, INFECTED 04/16/2019 W S10.92XA B JENNIFER (NONTHERMAL) OF UNSPECIFIED PART OF NECK, INITIAL ENCOUNTER 04/18/2019 GRISEL LARA MD Ot M79.661 PAIN IN RIGHT LOWER LEG 04/18/2019 GRISEL LARA MD Ot M79.662 PAIN IN LEFT LOWER LEG 04/18/2019 INOCENCIA AVILANYSera Esteves SENSOR SPECIALIST Ot M54.16 RADICULOPATHY, LUMBAR REGION 04/18/2019 GERMAINE GRANDE MD, Ot N39.0 URINARY TRACT INFECTION, SITE NOT SPECIF 04/18/2019 GERMAINE GRANDE MD Ot R63.5 ABNORMAL WEIGHT GAIN 04/18/2019 GERMAINE GRANDE MD, Ot Z09 ENCNTR FOR F/U EXAM AFT TRTMT FOR COND O 04/18/2019 GERMAINE GRANDE MD Ot Z92.25 PERSONAL HISTORY OF IMMUNOSUPRESSION THE 04/18/2019 GERMAINE GRANDE MD Ot Z94.0 KIDNEY TRANSPLANT STATUS 04/18/2019 GERMAINE GRANDE MD Ot E87.5 HYPERKALEMIA 04/18/2019 GERMAINE GRANDE MD Ot Z94.0 KIDNEY TRANSPLANT STATUS 04/18/2019 GERMAINE GRANDE MD Ot R39.19 8 OTHER DIFFICULTIES WITH MICTURITION 04/18/2019 GERMAINE GRANDE MD Ot Z94.0 KIDNEY TRANSPLANT STATUS 04/18/2019 GERMAINE GRANDE MD Ot Z94.0 KIDNEY TRANSPLANT STATUS 04/18/2019 SKY MOLINA FACC, PAULINE SINCLAIRP CCDS Ot I12.0 HYP CHR KIDNEY DISEASE W STAGE 5 CHR KID 04/18/2019 SKY MOLINA FACC, ALI FACP CCDS Ot N18.6 END STAGE RENAL DISEASE 04/18/2019 SKY MOLINA FACC, ALI YAHIRP CCDS Ot R07.89 OTHER CHEST PAIN 04/18/2019 ANGELI SEXTON SENSOR SPECIALIST Ot R10. 11 RIGHT UPPER QUADRANT PAIN 04/18/2019 ANGELI SEXTON SENSOR SPECIALIST Ot R10. 13 EPIGASTRIC PAIN 04/18/2019 ANGELI SEXTON SENSOR SPECIALIST Ot R19. 7 DIARRHEA, UNSPECIFIED 04/18/2019 ANGELI SEXTON SENSOR SPECIALIST Ot Z94. 0 KIDNEY TRANSPLANT STATUS 04/18/2019 ANGELI SEXTON SENSOR SPECIALIST Ot R10. 11 RIGHT UPPER QUADRANT PAIN 04/18/2019 ANGELI SEXTON SENSOR SPECIALIST Ot R10. 13 EPIGASTRIC PAIN 04/18/2019 ANGELI SEXTON SENSOR SPECIALIST Ot R19. 7 DIARRHEA, UNSPECIFIED 04/18/2019 GERMAINE GRANDE MD Ot N25.81 SECONDARY HYPERPARATHYROIDISM OF RENAL O 04/18/2019 GERMAINE GRANDE MD Ot N39.0 URINARY TRACT INFECTION, SITE NOT SPECIF 04/18/2019 GERMAINE GRANDE MD Ot Z92.25 PERSONAL HISTORY OF IMMUNOSUPRESSION THE 04/18/2019 GERMAINE GRANDE MD Ot Z94.0 KIDNEY TRANSPLANT STATUS 04/18/2019 GERMAINE GRANDE MD Ot D89.89 OTH DISRD INVOLVING THE IMMUNE MECHANISM 04/18/2019 GERMAINE GRANDE MD Ot E16.2 HYPOGLYCEMIA, UNSPECIFIED 04/18/2019 GERMAINE GRANDE MD Ot E87.2 ACIDOSIS 04/18/2019 GERMAINE GRANDE MD Ot N39.0 URINARY TRACT INFECTION, SITE NOT SPECIF 04/18/2019 GERMAINE GRANDE MD Ot Z94.0 KIDNEY TRANSPLANT STATUS 04/18/2019 MILLY MIRANDA PRIMER CHARGING TOOL SETTER Ot K29.00 ACUTE GASTRITIS WITHOUT BLEEDING 04/18/2019 MILLY MIRANDA PRIMER CHARGING TOOL SETTER Ot K29.80 DUODENITIS WITHOUT BLEEDING 04/18/2019 MILLY MIRANDA PRIMER CHARGING TOOL SETTER Ot K31.84 GASTROPARESIS 04/18/2019 MILLY MIRANDA PRIMER CHARGING TOOL SETTER Ot R11.0 NAUSEA 04/18/2019 MILLY MIRANDA PRIMER CHARGING TOOL SETTER Ot R14.0 ABDOMINAL DISTENSION (GASEOUS) 04/18/2019 MILLY MIRANDA PRIMER CHARGING TOOL SETTER Ot R63.0 ANOREXIA 04/18/2019 GERMAINE GRANDE MD Ot N25.81 SECONDARY HYPERPARATHYROIDISM OF RENAL O 04/18/2019 GERMAINE GRANDE MD Ot N39.0 URINARY TRACT INFECTION, SITE NOT SPECIF 04/18/2019 GERMAINE GRANDE MD Ot Z92.25 PERSONAL HISTORY OF IMMUNOSUPRESSION THE 04/18/2019 GERMAINE GRANDE MD, Ot Z94.0 KIDNEY TRANSPLANT STATUS 04/22/2019 MILLY MIRANDA Woody PRIMER CHARGING TOOL SETTER Ot K29.00 ACUTE GASTRITIS WITHOUT BLEEDING 04/22/2019 MILLY MIRANDA Woody PRIMER CHARGING TOOL SETTER Ot K29.80 DUODENITIS WITHOUT BLEEDING 04/22/2019 MILLY MIRANDA Woody PRIMER CHARGING TOOL SETTER Ot K31.84 GASTROPARESIS 04/22/2019 MILLY MIRANDA Woody PRIMER CHARGING TOOL SETTER Ot R11.0 NAUSEA 04/22/2019 MILLY MIRANDA Woody PRIMER CHARGING TOOL SETTER Ot R14.0 ABDOMINAL DISTENSION (GASEOUS) 04/22/2019 MILLY MIRANDA Woody PRIMER CHARGING TOOL SETTER Ot R63.0 ANOREXIA 04/22/2019 MILLY MIRANDA Woody PRIMER CHARGING TOOL SETTER Ot K29.00 ACUTE GASTRITIS WITHOUT BLEEDING 04/22/2019 MILLY MIRANDA Woody PRIMER CHARGING TOOL SETTER Ot K29.80 DUODENITIS WITHOUT BLEEDING 04/22/2019 MILLY MIRANDA Woody PRIMER CHARGING TOOL SETTER Ot K31.84 GASTROPARESIS 04/22/2019 MILLY MIRANDA Woody PRIMER CHARGING TOOL SETTER Ot R11.0 NAUSEA 04/22/2019 MILLY MIRANDA Woody PRIMER CHARGING TOOL SETTER Ot R14.0 ABDOMINAL DISTENSION (GASEOUS) 04/22/2019 MILLY MIRANDA Woody PRIMER CHARGING TOOL SETTER Ot R63.0 ANOREXIA 05/03/2019 GERMAINE GRANDE MD Ot N25.81 SECONDARY HYPERPARATHYROIDISM OF RENAL O 05/03/2019 GERMAINE GRANDE MD Ot N39.0 URINARY TRACT INFECTION, SITE NOT SPECIF 05/03/2019 GERMAINE GRANDE MD Ot Z92.25 PERSONAL HISTORY OF IMMUNOSUPRESSION THE 05/03/2019 GERMAINE GRANDE MD Ot Z94.0 KIDNEY TRANSPLANT STATUS 05/24/2019 GERMAINE GRANDE MD Ot D89.9 DISORDER INVOLVING THE IMMUNE MECHANISM, 05/24/2019 GERMAINE GRANDE MD Ot E16.2 HYPOGLYCEMIA, UNSPECIFIED 05/24/2019 GERMAINE GRANDE MD Ot E87.2 ACIDOSIS 05/24/2019 GERMAINE GRANDE MD Ot N39.0 URINARY TRACT INFECTION, SITE NOT SPECIF 05/24/2019 GERMAINE GRANDE MD Ot Z94.0 KIDNEY TRANSPLANT STATUS 06/10/2019 ELSA URBANO MENDOZAA K Ot E03.9 HYPOTHYROIDISM, UNSPECIFIED 06/10/2019 ELSA DOYUMIKO K Ot E78.00 PURE HYPERCHOLESTEROLEMIA, UNSPECIFIED 06/10/2019 ELSA YUMIKO MENDOZA Ot F32.9 MAJOR DEPRESSIVE DISORDER, SINGLE EPISOD 06/10/2019 ELSA YUMIKO MENDOZA Ot F41.9 ANXIETY DISORDER, UNSPECIFIED 06/10/2019 ABERDEEN YUMIKO MENDOZA Ot J45.909 UNSPECIFIED ASTHMA, UNCOMPLICATED 06/10/2019 ABERDEEN YUMIKO MENDOZA Ot K21.9 GASTRO-ESOPHAGEAL REFLUX DISEASE WITHOUT 06/10/2019 ELSA YUMIKO MENDOZA Ot R73.09 OTHER ABNORMAL GLUCOSE 06/10/2019 ELSA YUMIKO MENDOZA Ot Z80.7 FAM HX OF MALIG NEOPLM OF LYMPHOID, ERROL 06/10/2019 YUMIKO HUNTER DO Ot Z87.440 PERSONAL HISTORY OF URINARY (TRACT) INFE 06/10/2019 ELSA YUMIKO MENDOZA Ot Z87.448 PERSONAL HISTORY OF OTHER DISEASES OF UR 06/10/2019 YUMIKO HUNTER DO Ot Z88.2 ALLERGY STATUS TO SULFONAMIDES STATUS 06/10/2019 YUMIKO HUNTER DO Ot Z88.5 ALLERGY STATUS TO NARCOTIC AGENT STATUS 06/10/2019 ELSA YUMIKO MENDOZA Ot Z88.7 ALLERGY STATUS TO SERUM AND VACCINE STAT 06/10/2019 YUMIKO HNUTER DO Ot Z88.8 ALLERGY STATUS TO OTH DRUG/MEDS/BIOL SUB 06/10/2019 ELSA YUMIKO MENDOZA Ot Z91.041 RADIOGRAPHIC DYE ALLERGY STATUS 06/10/2019 ELSA YUMIKO MENDOZA Ot Z94.0 KIDNEY TRANSPLANT STATUS 06/10/2019 YUMIKO HUNTER DO Ot Z99.2 DEPENDENCE ON RENAL DIALYSIS 06/14/2019 ELSA YUMIKO MENDOZA Ot E03.9 HYPOTHYROIDISM, UNSPECIFIED 06/14/2019 ELSA YUMIKO MENDOZA Ot E78.00 PURE HYPERCHOLESTEROLEMIA, UNSPECIFIED 06/14/2019 YUMIKO HUNTER DO Ot F32.9 MAJOR DEPRESSIVE DISORDER, SINGLE EPISOD 06/14/2019 ELSA YUMIKO MENDOZA Ot F41.9 ANXIETY DISORDER, UNSPECIFIED 06/14/2019 ELSA YUMIKO MENDOZA Ot J45.909 UNSPECIFIED ASTHMA, UNCOMPLICATED 06/14/2019 ELSA YUMIKO MENDOZA Ot K21.9 GASTRO-ESOPHAGEAL REFLUX DISEASE WITHOUT 06/14/2019 ELSA YUMIKO MENDOZA Ot R73.09 OTHER ABNORMAL GLUCOSE 06/14/2019 YUMIKO HUNTER DO Ot Z80.7 FAM HX OF MALIG NEOPLM OF LYMPHOID, ERROL 06/14/2019 ELSA MENDOZA YUMIKO Espinal Ot Z87.440 PERSONAL HISTORY OF URINARY (TRACT) INFE 06/14/2019 ELSA MENDOZA YUMIKO Espinal Ot Z87.448 PERSONAL HISTORY OF OTHER DISEASES OF UR 06/14/2019 ELSA MENDOZA YUMIKO Espinal Ot Z88.2 ALLERGY STATUS TO SULFONAMIDES STATUS 06/14/2019 ELSA MENDOZA YUMIKO Espinal Ot Z88.5 ALLERGY STATUS TO NARCOTIC AGENT STATUS 06/14/2019 ELSA MENDOZA YUMIKO Espinal Ot Z88.7 ALLERGY STATUS TO SERUM AND VACCINE STAT 06/14/2019 ELSA MENDOZA YUMIKO Kylie Ot Z88.8 ALLERGY STATUS TO OTH DRUG/MEDS/BIOL SUB 06/14/2019 ELSA MENDOZA YUMIKO Espinal Ot Z91.041 RADIOGRAPHIC DYE ALLERGY STATUS 06/14/2019 ELSA MENDOZA YUMIKO Espinal Ot Z94.0 KIDNEY TRANSPLANT STATUS 06/14/2019 ELSA YUMIKO Espinal Ot Z99.2 DEPENDENCE ON RENAL DIALYSIS 06/19/2019 LIYA ARVIZU W 786.5 CHEST PAIN 06/19/2019 LIYA ARVIZU R07.9 CHEST PAIN, UNSPECIFIED 06/19/2019 LIYA ARVIZU W 786.5 CHEST PAIN 06/19/2019 LIYA ARVIZU R07.9 CHEST PAIN, UNSPECIFIED 06/19/2019 LIYA ARVIZU W 780.79 OTHER MALAISE AND FATIGUE 06/19/2019 LIYA ARVIZU 786.5 CHEST PAIN 06/19/2019 LIYA ARVIZU R07.9 CHEST PAIN, UNSPECIFIED 06/19/2019 LIYA ARVIZU W R53.83 OTHER FATIGUE 06/19/2019 LIYA ARVIZU W 780.79 OTHER MALAISE AND FATIGUE 06/19/2019 LIYA ARVIZU 786.5 CHEST PAIN 06/19/2019 LIYA ARVIZU R07.9 CHEST PAIN, UNSPECIFIED 06/19/2019 LIYA ARVIZU W R53.83 OTHER FATIGUE 07/02/2019 NOLBERTO MOLINA, LIYA Etseves Ot J98.11 ATELECTASIS 07/02/2019 NOLBERTO MOLINA, LIYA Esteves Ot K44.9 DIAPHRAGMATIC HERNIA WITHOUT OBSTRUCTION 07/02/2019 NOLBERTO MOLINA, LIYA Esteves Ot Z98.890 OTHER SPECIFIED POSTPROCEDURAL STATES 07/11/2019 Jermaine Doran W B 86 SCABIES 07/11/2019 Jermaine Doran D84.9 IMMUNODEFICIENCY, UNSPECIFIED 07/11/2019 Jermaine Doran E16.1 OTHER HYPOG 07/11/2019 Jermaine Doran F33.9 MAJOR DEPRESSIVE DISORDER, RECURRENT, UNSPECIFIED 07/11/2019 Jermaine Doran F41.1 GENERALIZED ANXIETY DISORDER 07/11/2019 Jermaine Doran G89.29 OTHER CHRONIC PAIN 07/11/2019 Jermaine Doran J20.9 ACUTE BRONCHITIS, UNSPECIFIED 07/11/2019 Jermaine Doran K04.7 PERIAPICAL ABSCESS WITHOUT SINUS 07/11/2019 Jermaine Doran K 30 FUNCTIONAL DYSPEPSIA 07/11/2019 Jermaine Doran K44.9 DIAPHRAGMATIC HERNIA WITHOUT OBSTRUCTION OR GANGRENE 07/11/2019 Jermaine Doran 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 07/11/2019 Jermaine Doran K58.0 IRRITABLE BOWEL SYNDROME WITH DIARRHEA 07/11/2019 Jermaine Doran K64.0 FIRST DEGREE HEMORRHOIDS 07/11/2019 Jermaine Doran L23.9 ALLERGIC CONTACT DERMATITIS, UNSPECIFIED CAUSE 07/11/2019 Jermaine Doran L98.9 DISORDER OF THE SKIN AND SUBCUTANEOUS TISSUE, UNSPECIF IED 07/11/2019 Jermaine Doran 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, LUMBAR REGION 07/11/2019 Jermaine Doran M54.5 LOW BACK PAIN 07/11/2019 Jermaine Doran N18.6 END STAGE RENAL DISEASE 07/11/2019 Jermaine Doran W P 84 OTHER PROBLEMS WITH 07/11/2019 Jermaine Doran R10.13 EPIGASTRIC PAIN 07/11/2019 Espinoza, [place] W R14.0 ABDOMINAL DISTENSION (GASEOUS) 07/11/2019 Jermaine Doran W R20.2 PARESTHESIA OF SKIN 07/11/2019 Jermaine Doran W R53.83 OTHER FATIGUE 07/11/2019 Jermaine Doran W R73.9 HYPERGLYCEMIA, UNSPECIFIED 07/11/2019 Jermaine Doran W S10.92XA BLISTER (NONTHERMAL) OF UNSP PART OF NECK, INIT ENCNTR 07/18/2019 NOLBERTO MOLINA, LIYA Esteves Ot J98.11 ATELECTASIS 07/18/2019 NOLBERTO MOLINA, LIYA Esteves Ot K44.9 DIAPHRAGMATIC HERNIA WITHOUT OBSTRUCTION 07/18/2019 NOLBERTO MOLINA, LIYA Esteves Ot Z98.890 OTHER SPECIFIED POSTPROCEDURAL STATES 07/23/2019 AARON PERKINS APRN Ot E03 .9 HYPOTHYROIDISM, UNSPECIFIED 07/23/2019 AARON PERKINS APRN Ot E78.00 PURE HYPERCHOLESTEROLEMIA, UNSPECIFIED 07/23/2019 AARON PERKINS APRN Ot F32 .9 MAJOR DEPRESSIVE DISORDER, SINGLE EPISOD 07/23/2019 AARON PERKINS APRN Ot F41 .9 ANXIETY DISORDER, UNSPECIFIED 07/23/2019 AARON PERKINS APRN Ot J44 .9 CHRONIC OBSTRUCTIVE PULMONARY DISEASE, U 07/23/2019 AARON PERKINS APRN Ot K21 .9 GASTRO-ESOPHAGEAL REFLUX DISEASE WITHOUT 07/23/2019 AARON PERKINS APRN Ot R07 .9 CHEST PAIN, UNSPECIFIED 07/23/2019 AARON PERKINS APRN Ot Z80 .7 FAM HX OF MALIG NEOPLM OF LYMPHOID, ERROL 07/23/2019 AARON PERKINS APRN Ot Z87.440 PERSONAL HISTORY OF URINARY (TRACT) INFE 07/23/2019 AARON PERKINS APRN Ot Z88 .2 ALLERGY STATUS TO SULFONAMIDES STATUS 07/23/2019 AARON PERKINS APRN Ot Z88 .5 ALLERGY STATUS TO NARCOTIC AGENT STATUS 07/23/2019 AARON PERKINS APRN Ot Z88 .7 ALLERGY STATUS TO SERUM AND VACCINE STAT 07/23/2019 AARON PERKINS APRN Ot Z88 .8 ALLERGY STATUS TO OTH DRUG/MEDS/BIOL SUB 07/23/2019 AARON PERKINS APRN Ot Z94 .0 KIDNEY TRANSPLANT STATUS 07/23/2019 AARON PERKINS APRN Ot Z98.890 OTHER SPECIFIED POSTPROCEDURAL STATES 07/23/2019 AARON PERKINS APRN Ot Z99 .2 DEPENDENCE ON RENAL DIALYSIS 07/25/2019 AARON PERKINS APRN Ot E03 .9 HYPOTHYROIDISM, UNSPECIFIED 07/25/2019 AARON PERKINS APRN Ot E78.00 PURE HYPERCHOLESTEROLEMIA, UNSPECIFIED 07/25/2019 AARON PERKINS APRN Ot F32 .9 MAJOR DEPRESSIVE DISORDER, SINGLE EPISOD 07/25/2019 AARON PERKINS APRN Ot F41 .9 ANXIETY DISORDER, UNSPECIFIED 07/25/2019 AARON PERKINS APRN Ot J44 .9 CHRONIC OBSTRUCTIVE PULMONARY DISEASE, U 07/25/2019 AARON PERKINS APRN Ot K21 .9 GASTRO-ESOPHAGEAL REFLUX DISEASE WITHOUT 07/25/2019 AARON PERKINS APRN Ot R07 .9 CHEST PAIN, UNSPECIFIED 07/25/2019 AARON PERKINS APRN Ot Z80 .7 FAM HX OF NILS MACEDOPLPretty OF LYMPHOID, ERROL 07/25/2019 AARON PERKINS APRN Ot Z87.440 PERSONAL HISTORY OF URINARY (TRACT) INFE 07/25/2019 AARON PERKINS APRN Ot Z88 .2 ALLERGY STATUS TO SULFONAMIDES STATUS 07/25/2019 AARON PERKINS APRN Ot Z88 .5 ALLERGY STATUS TO NARCOTIC AGENT STATUS 07/25/2019 AARON PERKINS APRN Ot Z88 .7 ALLERGY STATUS TO SERUM AND VACCINE STAT 07/25/2019 AARON PERKINS APRN Ot Z88 .8 ALLERGY STATUS TO OTH DRUG/MEDS/BIOL SUB 07/25/2019 AARON PERKINS APRN Ot Z94 .0 KIDNEY TRANSPLANT STATUS 07/25/2019 AARON PERKINS APRN Ot Z98.890 OTHER SPECIFIED POSTPROCEDURAL STATES 07/25/2019 AARON PERKINS APRN Ot Z99 .2 DEPENDENCE ON RENAL DIALYSIS 07/29/2019 ANOOP MOLINA, NISH Cartwright Ot E03.9 HYPOTHYROIDISM, UNSPECIFIED 07/29/2019 ANOOP MOLINA, NISH Cartwright Ot E78.00 PURE HYPERCHOLESTEROLEMIA, UNSPECIFIED 07/29/2019 NISH DAVALOS MD Ot E83.42 HYPOMAGNESEMIA 07/29/2019 NISH DAVALOS MD, Ot F32.9 MAJOR DEPRESSIVE DISORDER, SINGLE EPISOD 07/29/2019 NISH DAVALOS MD, Ot F41.9 ANXIETY DISORDER, UNSPECIFIED 07/29/2019 NISH DAVALOS MD, Ot J45.909 UNSPECIFIED ASTHMA, UNCOMPLICATED 07/29/2019 NISH DAVALOS MD, Ot K21.9 GASTRO-ESOPHAGEAL REFLUX DISEASE WITHOUT 07/29/2019 NISH DAVALOS MD Ot R07.89 OTHER CHEST PAIN 07/29/2019 NISH DAVALOS MD, Ot R07.9 CHEST PAIN, UNSPECIFIED 07/29/2019 NISH DAVALOS MD, Ot R10.13 EPIGASTRIC PAIN 07/29/2019 NISH DAVALOS MD, Ot Z80.7 FAM HX OF [facility] OF LYMPHOID, ERROL 07/29/2019 NISH DAVALOS MD, Ot Z87.440 PERSONAL HISTORY OF URINARY (TRACT) INFE 07/29/2019 NISH DAVALOS MD, Ot Z88.2 ALLERGY STATUS TO SULFONAMIDES STATUS 07/29/2019 NISH DAVALOS MD, Ot Z88.5 ALLERGY STATUS TO NARCOTIC AGENT STATUS 07/29/2019 NISH DAVALOS MD, Ot Z88.7 ALLERGY STATUS TO SERUM AND VACCINE STAT 07/29/2019 NISH DAVALOS MD, Ot Z88.8 ALLERGY STATUS TO OTH DRUG/MEDS/BIOL SUB 07/29/2019 NISH DAVALOS MD, Ot Z94.0 KIDNEY TRANSPLANT STATUS 07/29/2019 NISH DAVALOS MD, Ot Z98.890 OTHER SPECIFIED POSTPROCEDURAL STATES 07/29/2019 NISH DAVALOS MD, Ot Z99.2 DEPENDENCE ON RENAL DIALYSIS 07/30/2019 Lynsey Sexton 789.06 ABDOMINAL PAIN, EPIGASTRIC 07/30/2019 Lynsey Sexton R10.13 EPIGASTRIC PAIN 07/30/2019 Lynsey Sexton 789.06 ABDOMINAL PAIN, EPIGASTRIC 07/30/2019 Lynsey Sexton R10.13 EPIGASTRIC PAIN 07/30/2019 DarshanAngeliLynsey W 789.01 ABDOMINAL PAIN, RIGHT UPPER QUADRANT 07/30/2019 DarshanLynsey W 789.06 ABDOMINAL PAIN, EPIGASTRIC 07/30/2019 DarshanLynsey W R10.11 RIGHT UPPER QUADRANT PAIN 07/30/2019 DarshanLynsey W R10.13 EPIGASTRIC PAIN 07/30/2019 DarshanLynsey W 536.8 DYSPEPSIA AND OTHER SPECIFIED DISORDERS OF FUNCTION OF STOMACH 07/30/2019 Darshan Lynsey W 789.01 ABDOMINAL PAIN, RIGHT UPPER QUADRANT 07/30/2019 Drashan Lynsey W 789.06 ABDOMINAL PAIN, EPIGASTRIC 07/30/2019 DarshanLynsey W K30 FUNCTIONAL DYSPEPSIA 07/30/2019 Darshan Lynsey W R10.11 RIGHT UPPER QUADRANT PAIN 07/30/2019 Darshan Lynsey W R10.13 EPIGASTRIC PAIN 07/30/2019 Darshan Lynsey W 536.8 DYSPEPSIA AND OTHER SPECIFIED DISORDERS OF FUNCTION OF STOMACH 07/30/2019 Darshan Lynsey W 789.01 ABDOMINAL PAIN, RIGHT UPPER QUADRANT 07/30/2019 Darshan Lynsey W 789.06 ABDOMINAL PAIN, EPIGASTRIC 07/30/2019 DarshanLynsey W K30 FUNCTIONAL DYSPEPSIA 07/30/2019 Darshan Lynsey W R10.11 RIGHT UPPER QUADRANT PAIN 07/30/2019 Darshan Lynsey W R10.13 EPIGASTRIC PAIN 07/30/2019 Darshan Lynsey W 536.8 DYSPEPSIA AND OTHER SPECIFIED DISORDERS OF FUNCTION OF STOMACH 07/30/2019 Darshan Lynsey W 789.01 ABDOMINAL PAIN, RIGHT UPPER QUADRANT 07/30/2019 Lynsey Sexton W 789.06 ABDOMINAL PAIN, EPIGASTRIC 07/30/2019 Darshan Lynsey W K30 FUNCTIONAL DYSPEPSIA 07/30/2019 Darshan Lynsey W R10.11 RIGHT UPPER QUADRANT PAIN 07/30/2019 Lynsey Sexton W R10.13 EPIGASTRIC PAIN 08/01/2019 ANOOP MOLINA, NISH Cartwright Ot E03.9 HYPOTHYROIDISM, UNSPECIFIED 08/01/2019 ANOOP MOLINA, NISH Cartwright Ot E78.00 PURE HYPERCHOLESTEROLEMIA, UNSPECIFIED 08/01/2019 ANOOP MOLINA, NISH Cartwright Ot E83.42 HYPOMAGNESEMIA 08/01/2019 NISH DAVALOS MD, Ot F32.9 MAJOR DEPRESSIVE DISORDER, SINGLE EPISOD 08/01/2019 NISH DAVALOS MD, Ot F41.9 ANXIETY DISORDER, UNSPECIFIED 08/01/2019 NISH DAVALOS MD, Ot J45.909 UNSPECIFIED ASTHMA, UNCOMPLICATED 08/01/2019 NISH DAVALOS MD, Ot K21.9 GASTRO-ESOPHAGEAL REFLUX DISEASE WITHOUT 08/01/2019 NISH DAVALOS MD Ot R07.89 OTHER CHEST PAIN 08/01/2019 NISH DAVALOS MD, Ot R07.9 CHEST PAIN, UNSPECIFIED 08/01/2019 NISH DAVALOS MD, Ot R10.13 EPIGASTRIC PAIN 08/01/2019 NISH DAVALOS MD, Ot Z80.7 [facility] HX OF NILS MALCOLM OF LYMPHOID, ERROL 08/01/2019 NISH DAVALOS MD, Ot Z87.440 PERSONAL HISTORY OF URINARY (TRACT) INFE 08/01/2019 NISH DAVALOS MD, Ot Z88.2 ALLERGY STATUS TO SULFONAMIDES STATUS 08/01/2019 NISH DAVALOS MD, Ot Z88.5 ALLERGY STATUS TO NARCOTIC AGENT STATUS 08/01/2019 NISH DAVALOS MD, Ot Z88.7 ALLERGY STATUS TO SERUM AND VACCINE STAT 08/01/2019 NISH DAVALOS MD, Ot Z88.8 ALLERGY STATUS TO OTH DRUG/MEDS/BIOL SUB 08/01/2019 NISH DAVALOS MD, Ot Z94.0 KIDNEY TRANSPLANT STATUS 08/01/2019 NISH DAVALOS MD, Ot Z98.890 OTHER SPECIFIED POSTPROCEDURAL STATES 08/01/2019 NISH DAVALOS MD, Ot Z99.2 DEPENDENCE ON RENAL DIALYSIS 08/22/2019 Jermaine Doran B 86 SCABIES 08/22/2019 Jermaine Doran D84.9 IMMUNODEFICIENCY, UNSPECIFIED 08/22/2019 Jermaine Doran E16.1 OTHER HYPOG 08/22/2019 Jermaine Doran F33.9 MAJOR DEPRESSIVE DISORDER, RECURRENT, UNSPECIFIED 08/22/2019 Jermaine Doran W F41.1 GENERALIZED ANXIETY DISORDER 08/22/2019 Jermaine Doran W G89.29 OTHER CHRONIC PAIN 08/22/2019 Jermaine Doran J20.9 ACUTE BRONCHITIS, UNSPECIFIED 08/22/2019 Jermaine Doran W K04.7 PERIAPICAL ABSCESS WITHOUT SINUS 08/22/2019 Jermaine Doran W K 30 FUNCTIONAL DYSPEPSIA 08/22/2019 Jermaine Doran W K44.9 DIAPHRAGMATIC HERNIA WITHOUT OBSTRUCTION OR GANGRENE 08/22/2019 Jermaine Doran W 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 08/22/2019 Jermaine Doran W K58.0 IRRITABLE BOWEL SYNDROME WITH DIARRHEA 08/22/2019 Jermaine Doran W K64.0 FIRST DEGREE HEMORRHOIDS 08/22/2019 Jermaine Doran W L23.9 ALLERGIC CONTACT DERMATITIS, UNSPECIFIED CAUSE 08/22/2019 Jermaine Doran W L98.9 DISORDER OF THE SKIN AND SUBCUTANEOUS TISSUE, UNSPECIF IED 08/22/2019 Jermaine Doran W 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, LUMBAR REGION 08/22/2019 Jermaine Doran W M54.5 LOW BACK PAIN 08/22/2019 Jermaine Doran W N18.6 END STAGE RENAL DISEASE 08/22/2019 Jermaine Doran W P 84 OTHER PROBLEMS WITH 08/22/2019 Jermaine Doran W R10.13 EPIGASTRIC PAIN 08/22/2019 Jermaine Doran W R14.0 ABDOMINAL DISTENSION (GASEOUS) 08/22/2019 Jermaine Doran W R20.2 PARESTHESIA OF SKIN 08/22/2019 Jermaine Doran W R53.83 OTHER FATIGUE 08/22/2019 Jermaine Doran W R73.9 HYPERGLYCEMIA, UNSPECIFIED 08/22/2019 Jermaine Doran W S10.92XA BLISTER (NONTHERMAL) OF UNSP PART OF NECK, INIT ENCNTR 08/31/2019 MARCO MOLINA, GRISEL J Ot M79.661 PAIN IN RIGHT LOWER LEG 08/31/2019 GRISEL LARA MD J Ot M79.662 PAIN IN LEFT LOWER LEG 08/31/2019 TOMMYSARAI Esteves SENSOR SPECIALIST Ot M54.16 RADICULOPATHY, LUMBAR REGION 08/31/2019 GERMAINE GRANDE MD A Ot N39.0 URINARY TRACT INFECTION, SITE NOT SPECIF 08/31/2019 GERMAINE GRANDE MD A Ot R63.5 ABNORMAL WEIGHT GAIN 08/31/2019 GERMAINE GRANDE MD A Ot Z09 ENCNTR FOR F/U EXAM AFT TRTMT FOR COND O 08/31/2019 DONNA GRANDE MDAL A Ot Z92.25 PERSONAL HISTORY OF IMMUNOSUPRESSION THE 08/31/2019 GERMAINE GRANDE MD A Ot Z94.0 KIDNEY TRANSPLANT STATUS 08/31/2019 GERMAINE GRANDE MD A Ot E87.5 HYPERKALEMIA 08/31/2019 GERMAINE GRANDE MD A Ot Z94.0 KIDNEY TRANSPLANT STATUS 08/31/2019 GERMAINE GRANDE MD A Ot R39.19 8 OTHER DIFFICULTIES WITH MICTURITION 08/31/2019 GERMAINE GRANDE MD A Ot Z94.0 KIDNEY TRANSPLANT STATUS 08/31/2019 GERMAINE GRANDE MD A Ot Z94.0 KIDNEY TRANSPLANT STATUS 08/31/2019 SKY MOLINA FACC, ALI FACP CCDS Ot I12.0 HYP CHR KIDNEY DISEASE W STAGE 5 CHR KID 08/31/2019 SKY MOLINA FACC, ALI FACP CCDS Ot N18.6 END STAGE RENAL DISEASE 08/31/2019 SKY MOLINA FACC, ALI FACP CCDS Ot R07.89 OTHER CHEST PAIN 08/31/2019 ANGELI SEXTON SENSOR SPECIALIST Ot R10. 11 RIGHT UPPER QUADRANT PAIN 08/31/2019 ANGELI SEXTON SENSOR SPECIALIST Ot R10. 13 EPIGASTRIC PAIN 08/31/2019 ANGELI SEXTON SENSOR SPECIALIST Ot R19. 7 DIARRHEA, UNSPECIFIED 08/31/2019 ANGELI SEXTON SENSOR SPECIALIST Ot Z94. 0 KIDNEY TRANSPLANT STATUS 08/31/2019 ANGELI SEXTON SENSOR SPECIALIST Ot R10. 11 RIGHT UPPER QUADRANT PAIN 08/31/2019 ANGELI SEXTON SENSOR SPECIALIST Ot R10. 13 EPIGASTRIC PAIN 08/31/2019 ANGELI SEXTON SENSOR SPECIALIST Ot R19. 7 DIARRHEA, UNSPECIFIED 08/31/2019 GERMAINE GRANDE MD Ot N25.81 SECONDARY HYPERPARATHYROIDISM OF RENAL O 08/31/2019 GERMAINE GRANDE MD Ot N39.0 URINARY TRACT INFECTION, SITE NOT SPECIF 08/31/2019 GERMAINE GRANDE MD Ot Z92.25 PERSONAL HISTORY OF IMMUNOSUPRESSION THE 08/31/2019 GERMAINE GRANDE MD Ot Z94.0 KIDNEY TRANSPLANT STATUS 08/31/2019 GERMAINE GRANDE MD Ot D89.89 OTH DISRD INVOLVING THE IMMUNE MECHANISM 08/31/2019 GERMAINE GRANDE MD Ot E16.2 HYPOGLYCEMIA, UNSPECIFIED 08/31/2019 GERMAINE GRANDE MD Ot E87.2 ACIDOSIS 08/31/2019 GERMAINE GRANDE MD Ot N39.0 URINARY TRACT INFECTION, SITE NOT SPECIF 08/31/2019 GERMAINE GRANDE MD Ot Z94.0 KIDNEY TRANSPLANT STATUS 08/31/2019 MILLY MIRANDA PRIMER CHARGING TOOL SETTER Ot K29.00 ACUTE GASTRITIS WITHOUT BLEEDING 08/31/2019 MILLY MIRANDA PRIMER CHARGING TOOL SETTER Ot K29.80 DUODENITIS WITHOUT BLEEDING 08/31/2019 MILLY MIRANDA PRIMER CHARGING TOOL SETTER Ot K31.84 GASTROPARESIS 08/31/2019 MILLY MIRANDA PRIMER CHARGING TOOL SETTER Ot R11.0 NAUSEA 08/31/2019 MILLY MIRANDA PRIMER CHARGING TOOL SETTER Ot R14.0 ABDOMINAL DISTENSION (GASEOUS) 08/31/2019 MILLY MIRANDA PRIMER CHARGING TOOL SETTER Ot R63.0 ANOREXIA 08/31/2019 GERMAINE GRANDE MD Ot D89.9 DISORDER INVOLVING THE IMMUNE MECHANISM, 08/31/2019 GERMAINE GRANDE MD Ot E16.2 HYPOGLYCEMIA, UNSPECIFIED 08/31/2019 GERMAINE GRANDE MD Ot E87.2 ACIDOSIS 08/31/2019 GERMAINE GRANDE MD Ot N39.0 URINARY TRACT INFECTION, SITE NOT SPECIF 08/31/2019 GERMAINE GRANDE MD Ot Z94.0 KIDNEY TRANSPLANT STATUS 08/31/2019 LIYA ARVIZU MD Ot R60.0 LOCALIZED EDEMA 08/31/2019 LIYA ARVIZU MD, Ot Z87.39 PERSONAL HISTORY OF DISEASES OF THE MS S 08/31/2019 LIYA ARVIZU MD, Ot J98.11 ATELECTASIS 08/31/2019 ARVIZU MD, LIYA L Ot K44.9 DIAPHRAGMATIC HERNIA WITHOUT OBSTRUCTION 08/31/2019 NOLBERTO MOLINA, LIYA Esteves Ot Z98.890 OTHER SPECIFIED POSTPROCEDURAL STATES 09/04/2019 CHRISTIANE MOLINA, GERMAINE Zamora Ot Z94.0 KIDNEY TRANSPLANT STATUS 10/30/2019 JORDYN ORTIZ APRN W B86 SCABIES 10/30/2019 JORDYN ORTIZ APRN W D84 .9 IMMUNODEFICIENCY, UNSPECIFIED 10/30/2019 DIANA BARKSDALE STORMY E16 .1 OTHER HYPOG 10/30/2019 ROSSY ORTIZ APRNY W F33 .9 MAJOR DEPRESSIVE DISORDER, RECURRENT, UNSPECIFIED 10/30/2019 ROSSY ORTIZ APRNY W F41 .1 GENERALIZED ANXIETY DISORDER 10/30/2019 JORDYN ORTIZ APRN W G89 .29 OTHER CHRONIC PAIN 10/30/2019 JORDYN ORTIZ APRN W J20 .9 ACUTE BRONCHITIS, UNSPECIFIED 10/30/2019 JORDYN ORTIZ APRN W K04 .7 PERIAPICAL ABSCESS WITHOUT SINUS 10/30/2019 JORDYN ORTIZ APRN W K30 FUNCTIONAL DYSPEPSIA 10/30/2019 JORDYN ORTIZ APRN W K44 .9 DIAPHRAGMATIC HERNIA WITHOUT OBSTRUCTION OR GANGRENE 10/30/2019 JORDYN ORTIZ APRN W K57 .30 DVRTCLOS OF LG INT W/O PERFORATION OR ABSCESS W/O BLEEDING 10/30/2019 DIANA BARKSDALE STORMY W K58 .0 IRRITABLE BOWEL SYNDROME WITH DIARRHEA 10/30/2019 JORDYN ORTIZ APRN W K64 .0 FIRST DEGREE HEMORRHOIDS 10/30/2019 JORDYN ORTIZ APRN W L23 .9 ALLERGIC CONTACT DERMATITIS, UNSPECIFIED CAUSE 10/30/2019 JORDYN ORTIZ APRN W L98 .9 DISORDER OF THE SKIN AND SUBCUTANEOUS TISSUE, UNSPECIFIED 10/30/2019 JORDYN ORTIZ APRN W 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, LUMBAR REGION 10/30/2019 JORDYN ORTIZ APRN W M54 .5 LOW BACK PAIN 10/30/2019 JORDYN ORTIZ APRN W N18 .6 END STAGE RENAL DISEASE 10/30/2019 JORDYN ORTIZ APRN W P84 OTHER PROBLEMS WITH 10/30/2019 JORDYN ORTIZ APRN W R10 .13 EPIGASTRIC PAIN 10/30/2019 DIANA PRIMER CHARGING TOOL SETTERJORDYN Mckay W R14 .0 ABDOMINAL DISTENSION (GASEOUS) 10/30/2019 DIANA PRIMER CHARGING TOOL SETTERROSSYY W R20 .2 PARESTHESIA OF SKIN 10/30/2019 DIANA PRIMER CHARGING TOOL SETTERROSSYY W R53 .83 OTHER FATIGUE 10/30/2019 DIANA PRIMER CHARGING TOOL SETTERROSSYY W R73 .9 HYPERGLYCEMIA, UNSPECIFIED 10/30/2019 DIANA PRIMER CHARGING TOOL SETTER, ROSSYY W S10.92XA BLISTER (NONTHERMAL) OF UNSP PART OF NECK, INIT ENCNTR 11/18/2019 MARCO MOLINA, GRISEL Martinez Ot M79.661 PAIN IN RIGHT LOWER LEG 11/18/2019 GRISEL LARA MD Ot M79.662 PAIN IN LEFT LOWER LEG 11/18/2019 SARAI AVILA Ot M54.16 RADICULOPATHY, LUMBAR REGION 11/18/2019 GERMAINE GRANDE MD Ot N39.0 URINARY TRACT INFECTION, SITE NOT SPECIF 11/18/2019 GERMAINE GRANDE MD Ot R63.5 ABNORMAL WEIGHT GAIN 11/18/2019 GERMAINE GRANDE MD A Ot Z09 ENCNTR FOR F/U EXAM AFT TRTMT FOR COND O 11/18/2019 GERMAINE GRANDE MD Ot Z92.25 PERSONAL HISTORY OF IMMUNOSUPRESSION THE 11/18/2019 GERMAINE GRANDE MD Ot Z94.0 KIDNEY TRANSPLANT STATUS 11/18/2019 GERMAINE GRANDE MD Ot E87.5 HYPERKALEMIA 11/18/2019 GERMAINE GRANDE MD Ot Z94.0 KIDNEY TRANSPLANT STATUS 11/18/2019 GERMAINE GRANDE MD Ot R39.19 8 OTHER DIFFICULTIES WITH MICTURITION 11/18/2019 GERMAINE GRANDE MD Ot Z94.0 KIDNEY TRANSPLANT STATUS 11/18/2019 GERMAINE GRANDE MD A Ot Z94.0 KIDNEY TRANSPLANT STATUS 11/18/2019 SKY MOLINA FACC, PAULINE FACP CCDS Ot I12.0 HYP CHR KIDNEY DISEASE W STAGE 5 CHR KID 11/18/2019 SKY MOLINA FACC, ALI FACP CCDS Ot N18.6 END STAGE RENAL DISEASE 11/18/2019 SKY MOLINA FACC, ALI FACP CCDS Ot R07.89 OTHER CHEST PAIN 11/18/2019 ANGELI SEXTON SENSOR SPECIALIST Ot R10. 11 RIGHT UPPER QUADRANT PAIN 11/18/2019 ANGELI SEXTON S SENSOR SPECIALIST Ot R10. 13 EPIGASTRIC PAIN 11/18/2019 ANGELI SEXTON SENSOR SPECIALIST Ot R19. 7 DIARRHEA, UNSPECIFIED 11/18/2019 ANGELI SEXTON SENSOR SPECIALIST Ot Z94. 0 KIDNEY TRANSPLANT STATUS 11/18/2019 ANGELI SEXTON SENSOR SPECIALIST Ot R10. 11 RIGHT UPPER QUADRANT PAIN 11/18/2019 ANGELI SEXTON SENSOR SPECIALIST Ot R10. 13 EPIGASTRIC PAIN 11/18/2019 ANGELI SEXTON SENSOR SPECIALIST Ot R19. 7 DIARRHEA, UNSPECIFIED 11/18/2019 GERMAINE GRANDE MD Ot N25.81 SECONDARY HYPERPARATHYROIDISM OF RENAL O 11/18/2019 GERMAINE GRANDE MD Ot N39.0 URINARY TRACT INFECTION, SITE NOT SPECIF 11/18/2019 GERMAINE GRANDE MD Ot Z92.25 PERSONAL HISTORY OF IMMUNOSUPRESSION THE 11/18/2019 GERMAINE GRANDE MD Ot Z94.0 KIDNEY TRANSPLANT STATUS 11/18/2019 GERMAINE GRANDE MD Ot D89.89 OTH DISRD INVOLVING THE IMMUNE MECHANISM 11/18/2019 GERMAINE GRNADE MD Ot E16.2 HYPOGLYCEMIA, UNSPECIFIED 11/18/2019 GERMAINE GRANDE MD Ot E87.2 ACIDOSIS 11/18/2019 GERMAINE GRANDE MD Ot N39.0 URINARY TRACT INFECTION, SITE NOT SPECIF 11/18/2019 GERMAINE GRANDE MD Ot Z94.0 KIDNEY TRANSPLANT STATUS 11/18/2019 MILLY MIRANDA PRIMER CHARGING TOOL SETTER Ot K29.00 ACUTE GASTRITIS WITHOUT BLEEDING 11/18/2019 MILLY MIRANDA PRIMER CHARGING TOOL SETTER Ot K29.80 DUODENITIS WITHOUT BLEEDING 11/18/2019 MILLY MIRANDA PRIMER CHARGING TOOL SETTER Ot K31.84 GASTROPARESIS 11/18/2019 MILLY MIRANDA PRIMER CHARGING TOOL SETTER Ot R11.0 NAUSEA 11/18/2019 MILLY MIRANDA PRIMER CHARGING TOOL SETTER Ot R14.0 ABDOMINAL DISTENSION (GASEOUS) 11/18/2019 MILLY MIRANDA PRIMER CHARGING TOOL SETTER Ot R63.0 ANOREXIA 11/18/2019 GERMAINE GRANDE MD Ot D89.9 DISORDER INVOLVING THE IMMUNE MECHANISM, 11/18/2019 GERMAINE GRANDE MD Ot E16.2 HYPOGLYCEMIA, UNSPECIFIED 11/18/2019 GERMAINE GRANDE MD Ot E87.2 ACIDOSIS 11/18/2019 GERMAINE GRANDE MD Ot N39.0 URINARY TRACT INFECTION, SITE NOT SPECIF 11/18/2019 GERMAINE GRANDE MD Ot Z94.0 KIDNEY TRANSPLANT STATUS 11/18/2019 NOLBERTO MOLINA, LIYA Esteves Ot R60.0 LOCALIZED EDEMA 11/18/2019 LIYA ARVIZU MD Ot Z87.39 PERSONAL HISTORY OF DISEASES OF THE MS S 11/18/2019 NOLBERTO MOLINA, LIYA Esteves Ot J98.11 ATELECTASIS 11/18/2019 NOLBERTO MOLINA, LIYA Esteves Ot K44.9 DIAPHRAGMATIC HERNIA WITHOUT OBSTRUCTION 11/18/2019 NOLBERTO MOLINA, LIYA Esteves Ot Z98.890 OTHER SPECIFIED POSTPROCEDURAL STATES 11/18/2019 GERMAINE GRANDE MD Ot Z94.0 KIDNEY TRANSPLANT STATUS 11/21/2019 ELSA DO, YUMIKO K Ot E03.9 HYPOTHYROIDISM, UNSPECIFIED 11/21/2019 ELSA DO, YUMIKO K Ot E78.00 PURE HYPERCHOLESTEROLEMIA, UNSPECIFIED 11/21/2019 ELSA DO, YUMIKO K Ot F32.9 MAJOR DEPRESSIVE DISORDER, SINGLE EPISOD 11/21/2019 ELSA DO, YUMIKO K Ot F41.9 ANXIETY DISORDER, UNSPECIFIED 11/21/2019 ELSA DO, YUMIKO K Ot F98.8 OT BEHAV/EMOTN DISORD W ONSET USLY OCCU 11/21/2019 ELSA DO, YUMIKO K Ot J45.909 UNSPECIFIED ASTHMA, UNCOMPLICATED 11/21/2019 ELSA DO, YUMIKO K Ot K21.9 GASTRO-ESOPHAGEAL REFLUX DISEASE WITHOUT 11/21/2019 ELSA DO, YUMIKO K Ot R04.0 EPISTAXIS 11/21/2019 ELSA DO, YUMIKO K Ot Z87.440 PERSONAL HISTORY OF URINARY (TRACT) INFE 11/21/2019 ELSA DO YUMIKO K Ot Z88.2 ALLERGY STATUS TO SULFONAMIDES STATUS 11/21/2019 ELSA DO YUMIKO K Ot Z88.5 ALLERGY STATUS TO NARCOTIC AGENT STATUS 11/21/2019 ELSA DO YUMIKO K Ot Z88.7 ALLERGY STATUS TO SERUM AND VACCINE STAT 11/21/2019 ELSA DO YUMIKO K Ot Z88.8 ALLERGY STATUS TO OTH DRUG/MEDS/BIOL SUB 11/21/2019 YUMIKO HUNTER DO Ot Z94.0 KIDNEY TRANSPLANT STATUS 11/21/2019 YUMIKO HUNTER DO Ot Z99.2 DEPENDENCE ON RENAL DIALYSIS Procedures Code Description [place] [address] ROUT INE VENIPUNCTURE 06/04/2014 NEPHROLOG [facility] NE[facility]Y, 06/04/2014 88907 UA W / CULTURE IF INDICATED 06/04/2014 70665 CMP 06/04/2014 [id number] GF R CALC (RESULT ONLY) 06/04/2014 88376 [facility] 06/19/2014 73183 XRAY CERVICAL SPINE, 2 OR 3 VIEWS 06/27/2014 28403 PREG TINO TEST, URINE (IN- HOUSE) 08/06/2014 05712 UA W / CULTURE IF INDICATED 08/06/2014 15383 WART DESTRUCT 1-14 ([facility]) 08/13/2014 94859 ROUT INE VENIPUNCTURE 08/23/2014 30496 FSH 08/23/2014 49980 LH 08/23/2014 77205 ROUT INE VENIPUNCTURE 08/28/2014 31390 CBC 08/28/2014 [id number] GF R CALC (RESULT ONLY) 08/28/2014 62587 UZAIR L PROFILE 08/28/2014 PRO/CRE UR INE PROTEIN TO CREATNINE RATIO 08/28/2014 91031 CA 125 08/29/2014 11266 SKIN TISSUE PROCEDURE 09/03/2014 88896 ROUT INE VENIPUNCTURE 09/10/2014 20578 CBC 09/10/2014 14790 BMP 09/10/2014 NEPHROLOG [facility], 09/20/2014 37630 STRE P A (IN-HOUSE) 09/25/2014 84367 ROUT INE VENIPUNCTURE 10/18/2014 39827 CBC 10/18/2014 [id number] GF R CALC (RESULT ONLY) 10/18/2014 68369 [facility] 10/18/2014 85924 PTT (THROMBOPLASTIN TIME, PARTIAL) 10/19/2014 02241 ROUT INE VENIPUNCTURE 10/30/2014 [id number] GF R CALC (RESULT ONLY) 10/30/2014 37124 [facility] 10/30/2014 23139 ROUT INE VENIPUNCTURE 11/13/2014 [id number] GF R CALC (RESULT ONLY) 11/13/2014 91436 CMP 11/13/2014 37212 PREG TINO TEST, URINE (IN- HOUSE) 11/16/2014 83767 ROUT INE VENIPUNCTURE 02/19/2015 28376 CBC 02/19/2015 31443 UZAIR L PROFILE 02/19/2015 71135 URIC ACID 02/19/2015 [id number] GF R CALC (RESULT ONLY) 02/19/2015 PRO/CRE UR INE PROTEIN TO CREATNINE RATIO 02/19/2015 84562 QUIANA MIN D 25-HYDROXY (D2,D3, TOTAL) 02/19/2015 98632 CK-MB 02/19/2015 01196 A1C (RML) 02/19/2015 [id number] PT H INTACT TAI (RESULT ONLY) 02/19/2015 [id number] CA LCIUM (RESULT ONLY) 02/19/2015 00550 CULT URE URINE 02/21/2015 58739 PTH (intact) (ORDER ONLY) 02/21/2015 S0280 HEAL TH PROMOTION 02/24/2015 Results Test Result Range Complete blood count (CBC) with automate d white blood cell (WBC) differential - 06/06/16 19:17 Blood leukocytes automated count (number/volume) 11.8 10*3/uL 4.3-11.0 Blood erythrocytes automated count (number/volume) 5.07 10*6/uL 4.35-5.85 Venous blood hemoglobin measurement (mass/volume) 13.8 g/dL 11.5-16.0 Blood hematocrit (volume fraction) 43 % 35-52 Automated erythrocyte mean corpuscular volume 85 [ foz_us] 80-99 Automated erythrocyte mean corpuscular h emoglobin (mass per erythrocyte) 27 pg 25-34 Automated erythrocyte mean corpuscular h emoglobin concentration measurement (mass/volume) 32 g/dL 32-36 Automated erythrocyte distribution width ratio 13. 5 % 10.0- 14.5 Automated blood platelet count (count/volume) 304 10*3/uL [...] 10*3 1.0-4.0 Blood monocytes automated count (number/volume) 0. 9 10*3 0.0-1.0 Automated eosinophil count 0.1 10*3/uL 0 .0-0.3 Automated blood basophil count (count/volume) 0.0 10*3/uL 0.0-0.1 Comprehensive metabolic panel - 06/06/16 19:17 Serum or plasma sodium measurement (moles/volume) 138 mmol/L 135-145 Serum or plasma potassium measurement (moles/volume) 4.4 mmol/L 3.6-5.0 Serum or plasma chloride measurement (moles/volume) 110 mmol/L 98-107 Carbon dioxide 15 mmol/L 21-32 Serum or plasma anion gap determination (moles/volume) 13 mmol/L 5-14 Serum or plasma urea nitrogen measurement (mass/volume ) 21 mg/dL 7-18 Serum or plasma creatinine measurement (mass/volume) 1.08 mg/dL 0.60-1.30 Serum or plasma urea nitrogen/creatinine mass ratio 19 NRG Serum or plasma creatinine measurement w ith calculation of estimated glomerular filtration rate 56 NRG Serum or plasma glucose measurement (mass/volume) 111 mg/dL 70-105 Serum or plasma calcium measurement (mass/volume) 9.4 mg/dL 8.5-10.1 Serum or plasma total bilirubin measurement (mass/volu me) 0.3 mg/dL 0.1-1.0 Serum or plasma alkaline phosphatase joann surement (enzymatic activity/volume) 77 U/L 40-136 Serum or plasma aspartate aminotransfera se measurement (enzymatic activity/volume) 23 U/L 5-34 Serum or plasma alanine aminotransferase measurement (enzymatic activity/volume) 29 U/L 0-55 Serum or plasma protein measurement (mass/volume) 7.2 g/dL 6.4-8.2 Serum or plasma albumin measurement (mass/volume) 3.8 g/dL 3.2-4.5 Magnesium - 06/06/16 19:17 Magnesium 1.8 mg/dL 1.8-2.4 Serum or plasma troponin i.cardiac measu rement (mass/volume) - 06/06/16 19:17 Serum or plasma troponin i.cardiac measurement (mass/v olume) < ng/mL <0.30 Lipase - 06/06/16 19:17 Lipase 36 U/L 8-78 Complete urinalysis with reflex to cultu re - 06/06/16 19:45 Urine color determination YELLOW NRG Urine clarity determination CLEAR NR G Urine pH measurement by test strip 6 5-9 Specific gravity of urine by test strip 1.020 1.016-1.022 Urine protein assay by test strip, semi-quantitative NEGATIVE NEGATIVE Urine glucose detection by automated test strip NE GATIVE NEGATIVE Erythrocytes detection in urine sediment by light micr oscopy NEGATIVE NEGATIVE Urine ketones detection by automated test strip NE GATIVE NEGATIVE Urine nitrite detection by test strip NEGATIVE NEGATIVE Urine total bilirubin detection by test strip NEGA TIVE NEGATIVE Urine urobilinogen measurement by automated test strip (mass/volume) NORMAL NORMAL Urine leukocyte esterase detection by dipstick 1+ NEGATIVE Automated urine sediment erythrocyte cou nt by microscopy (number/high power field) NONE NRG Automated urine sediment leukocyte count by microscopy (number/high power field) [HPF] NRG Bacteria detection in urine sediment by light microsco py FEW NRG Squamous epithelial cells detection in u rine sediment by light microscopy 25-50 NRG Crystals detection in urine sediment by light microsco py NONE NRG Casts detection in urine sediment by light microscopy NONE NRG Mucus detection in urine sediment by light microscopy NEGATIVE NRG Complete urinalysis with reflex to culture NO NRG Complete blood count (CBC) with automate d white blood cell (WBC) differential - 06/13/16 09:50 Blood leukocytes automated count (number/volume) 8.0 10*3/uL 4.3-11.0 Blood erythrocytes automated count (number/volume) 5.07 10*6/uL 4.35-5.85 Venous blood hemoglobin measurement (mass/volume) 14.2 g/dL 11.5-16.0 Blood hematocrit (volume fraction) 44 % 35-52 Automated erythrocyte mean corpuscular volume 86 [ foz_us] 80-99 Automated erythrocyte mean corpuscular h emoglobin (mass per erythrocyte) 28 pg 25-34 Automated erythrocyte mean corpuscular h emoglobin concentration measurement (mass/volume) 33 g/dL 32-36 Automated erythrocyte distribution width ratio 13. 4 % 10.0- 14.5 Automated blood platelet count (count/volume) 246 10*3/uL [...] 10*3 1.0-4.0 Blood monocytes automated count (number/volume) 0. 8 10*3 0.0-1.0 Automated eosinophil count 0.1 10*3/uL 0 .0-0.3 Automated blood basophil count (count/volume) 0.0 10*3/uL 0.0-0.1 Comprehensive metabolic panel - 06/13/16 09:50 Serum or plasma sodium measurement (moles/volume) 139 mmol/L 135-145 Serum or plasma potassium measurement (moles/volume) 4.7 mmol/L 3.6-5.0 Serum or plasma chloride measurement (moles/volume) 108 mmol/L 98-107 Carbon dioxide 22 mmol/L 21-32 Serum or plasma anion gap determination (moles/volume) 9 mmol/L 5-14 Serum or plasma urea nitrogen measurement (mass/volume ) 19 mg/dL 7-18 Serum or plasma creatinine measurement (mass/volume) 1.14 mg/dL 0.60-1.30 Serum or plasma urea nitrogen/creatinine mass ratio 17 NRG Serum or plasma creatinine measurement w ith calculation of estimated glomerular filtration rate 53 NRG Serum or plasma glucose measurement (mass/volume) 91 mg/dL 70-105 Serum or plasma calcium measurement (mass/volume) 9.8 mg/dL 8.5-10.1 Serum or plasma total bilirubin measurement (mass/volu me) 0.5 mg/dL 0.1-1.0 Serum or plasma alkaline phosphatase joann surement (enzymatic activity/volume) 86 U/L 40-136 Serum or plasma aspartate aminotransfera se measurement (enzymatic activity/volume) 18 U/L 5-34 Serum or plasma alanine aminotransferase measurement (enzymatic activity/volume) 24 U/L 0-55 Serum or plasma protein measurement (mass/volume) 6.9 g/dL 6.4-8.2 Serum or plasma albumin measurement (mass/volume) 4.0 g/dL 3.2-4.5 Serum or plasma troponin i.cardiac measu rement (mass/volume) - 06/13/16 09:50 Serum or plasma troponin i.cardiac measurement (mass/v olume) < ng/mL <0.30 Complete blood count (CBC) with automate d white blood cell (WBC) differential - 02/13/18 19:30 Blood leukocytes automated count (number/volume) 9.3 10*3/uL 4.3-11.0 Blood erythrocytes automated count (number/volume) 4.68 10*6/uL 4.35-5.85 Venous blood hemoglobin measurement (mass/volume) 13.3 g/dL 11.5-16.0 Blood hematocrit (volume fraction) 41 % 35-52 Automated erythrocyte mean corpuscular volume 87 [ foz_us] 80-99 Automated erythrocyte mean corpuscular h emoglobin (mass per erythrocyte) 28 pg 25-34 Automated erythrocyte mean corpuscular h emoglobin concentration measurement (mass/volume) 33 g/dL 32-36 Automated erythrocyte distribution width ratio 13. 4 % 10.0- 14.5 Automated blood platelet count (count/volume) 318 10*3/uL [...] 10*3 1.0-4.0 Blood monocytes automated count (number/volume) 0. 8 10*3 0.0-1.0 Automated eosinophil count 0.2 10*3/uL 0 .0-0.3 Automated blood basophil count (count/volume) 0.0 10*3/uL 0.0-0.1 Blood lactic acid measurement (moles/vol ume) - 02/13/18 19:30 Blood lactic acid measurement [...] 5-14 Serum or plasma urea nitrogen measurement (mass/volume ) 18 mg/dL 7-18 Serum or plasma creatinine measurement (mass/volume) 0.90 mg/dL 0.60-1.30 Serum or plasma urea nitrogen/creatinine mass ratio 20 NRG Serum or plasma creatinine measurement w ith calculation of estimated glomerular filtration rate > NRG Serum or plasma glucose measurement (mass/volume) 82 mg/dL 70-105 Serum or plasma calcium measurement (mass/volume) 9.5 mg/dL 8.5-10.1 Serum or plasma total bilirubin measurement (mass/volu me) 0.3 mg/dL 0.1-1.0 Serum or plasma alkaline phosphatase joann surement (enzymatic activity/volume) 74 U/L 40-136 Serum or plasma aspartate aminotransfera se measurement (enzymatic activity/volume) 21 U/L 5-34 Serum or plasma alanine aminotransferase measurement (enzymatic activity/volume) 33 U/L 0-55 Serum or plasma protein measurement (mass/volume) 7.9 g/dL 6.4-8.2 Serum or plasma albumin measurement (mass/volume) 4.2 g/dL 3.2-4.5 Serum or plasma phosphate measurement (m ass/volume) - 02/13/18 19:30 Serum or plasma phosphate measurement (mass/volume) 3.1 mg/dL 2.3-4.7 Magnesium - 02/13/18 19:30 Magnesium 1.6 mg/dL 1.8-2.4 Lipase - 02/13/18 19:30 Lipase 67 U/L 8-78 Serum or plasma C reactive protein measu rement (mass/volume) - 02/13/18 19:30 Serum or plasma C reactive protein measurement (mass/v olume) 0.12 mg/dL 0.00-0.50 Complete urinalysis with reflex to cultu re - 02/13/18 19:40 Urine color determination YELLOW NRG Urine clarity determination CLEAR NR G Urine pH measurement by test strip 5 5-9 Specific gravity of urine by test strip 1.010 1.016-1.022 Urine protein assay by test strip, semi-quantitative NEGATIVE NEGATIVE Urine glucose detection by automated test strip NE GATIVE NEGATIVE Erythrocytes detection in urine sediment by light micr oscopy 1+ NEGATIVE Urine ketones detection by automated test strip NE GATIVE NEGATIVE Urine nitrite detection by test strip NEGATIVE NEGATIVE Urine total bilirubin detection by test strip NEGA TIVE NEGATIVE Urine urobilinogen measurement by automated test strip (mass/volume) NORMAL NORMAL Urine leukocyte esterase detection by dipstick 3+ NEGATIVE Automated urine sediment erythrocyte cou nt by microscopy (number/high power field) [HPF] NRG Automated urine sediment leukocyte count by microscopy (number/high power field) [HPF] NRG Bacteria detection in urine sediment by light microsco py TRACE NRG Squamous epithelial cells detection in u rine sediment by light microscopy 2-5 NRG Crystals detection in urine sediment by light microsco py NONE NRG Casts detection in urine sediment by light microscopy NONE NRG Mucus detection in urine sediment by light microscopy NEGATIVE NRG Complete urinalysis with reflex to culture YES NRG Urine drug screening test - 02/13/18 19: 40 Urine phencyclidine detection by screening method NEGATIVE NEGATIVE Urine benzodiazepines detection by screening method NEGATIVE NEGATIVE Urine cocaine detection NEGATIVE NEGATI VE Urine amphetamines detection by screening method N EGATIVE NEGATIVE Urine methamphetamine detection by screening method NEGATIVE NEGATIVE Urine cannabinoids detection by screening method N EGATIVE NEGATIVE Urine opiates detection by screening method NEGATI VE NEGATIVE Urine barbiturates detection NEGATIVE N EGATIVE Screening urine tricyclic antidepressants detection NEGATIVE NEGATIVE Urine methadone detection by screening method NEGA TIVE NEGATIVE Urine oxycodone detection NEGATIVE NEGA TIVE Urine propoxyphene detection NEGATIVE N EGATIVE Bacterial urine culture - 02/13/18 19:40 URINE CULTURE RESULTS <10,000/ML NRG Urinalysis - 03/27/18 09:53 Icotest N/A Negative Urine Volume Urine Volume Sufficient (10mL) Urine Yeast No Yeast present Urine-Appearance Clear Clear Urine-Bacteria Negative Urine-Bilirubin Negative Negative Urine-Blood Negative Negative Urine-Color Yellow Colorless[place] Urine-Glucose Negative Negative Urine-Ketones Negative Negative Urine-Leukocytes Negative Negative Urine-Mucus 1+ Urine-Nitrite Negative Negative Urine-Other Urine Saved if Culture Need ed (48hrs from time of collection) Urine-pH 6.0 5-8.5 Urine-Protein Negative Negative Urine-RBC Rare/HPF Urine-Specific [place] 1.015 1.000-1 .030 Urine-WBC Negative Urobilinogen 0.2 E.U./dL 0.2-1.0 Automated blood complete blood count (he mogram) panel - 04/17/18 09:32 Blood leukocytes automated count (number/volume) 7.6 10*3/uL 4.3-11.0 Blood erythrocytes automated count (number/volume) 5.21 10*6/uL 4.35-5.85 Venous blood hemoglobin measurement (mass/volume) 14.6 g/dL 11.5-16.0 Blood hematocrit (volume fraction) 45 % 35-52 Automated erythrocyte mean corpuscular volume 86 [ foz_us] 80-99 Automated erythrocyte mean corpuscular h emoglobin (mass per erythrocyte) 28 pg 25-34 Automated erythrocyte mean corpuscular h emoglobin concentration measurement (mass/volume) 33 g/dL 32-36 Automated erythrocyte distribution width ratio 13. 0 % 10.0- 14.5 Automated blood platelet count (count/volume) 298 10*3/uL 130-400 Automated blood platelet mean volume measurement 9.4 [foz_us] 7.4-10.4 Serum or plasma renal function panel (Na , K, Cl, CO2, BUN, Cr, glucose,Ca, phos, alb) - 04/17/18 09:32 Serum or plasma sodium measurement (moles/volume) 140 mmol/L 135-145 Serum or plasma potassium measurement (moles/volume) 4.6 mmol/L 3.6-5.0 Serum or plasma chloride measurement (moles/volume) 108 mmol/L 98-107 Carbon dioxide 22 mmol/L 21-32 Serum or plasma anion gap determination (moles/volume) 10 mmol/L 5-14 Serum or plasma urea nitrogen measurement (mass/volume ) 16 mg/dL 7-18 Serum or plasma creatinine measurement (mass/volume) 0.84 mg/dL 0.60-1.30 Serum or plasma urea nitrogen/creatinine mass ratio 19 NRG Serum or plasma creatinine measurement w ith calculation of estimated glomerular filtration rate > NRG Serum or plasma glucose measurement (mass/volume) 91 mg/dL 70-105 Serum or plasma calcium measurement (mass/volume) 10.0 mg/dL 8.5-10.1 Serum or plasma albumin measurement (mass/volume) 4.2 g/dL 3.2-4.5 Serum or plasma phosphate measurement (mass/volume) 3.4 mg/dL 2.3-4.7 FK 506 - 04/17/18 09:32 Tacrolimus blood 5.0 % NRG Complete urinalysis with reflex to cultu re - 04/17/18 09:40 Urine color determination YELLOW NRG Urine clarity determination CLEAR NR G Urine pH measurement by test strip 6 5-9 Specific gravity of urine by test strip 1.010 1.016-1.022 Urine protein assay by test strip, semi-quantitative NEGATIVE NEGATIVE Urine glucose detection by automated test strip NE GATIVE NEGATIVE Erythrocytes detection in urine sediment by light micr oscopy NEGATIVE NEGATIVE Urine ketones detection by automated test strip NE GATIVE NEGATIVE Urine nitrite detection by test strip NEGATIVE NEGATIVE Urine total bilirubin detection by test strip NEGA TIVE NEGATIVE Urine urobilinogen measurement by automated test strip (mass/volume) NORMAL NORMAL Urine leukocyte esterase detection by dipstick 1+ NEGATIVE Automated urine sediment erythrocyte cou nt by microscopy (number/high power field) NONE NRG Automated urine sediment leukocyte count by microscopy (number/high power field) RARE NRG Bacteria detection in urine sediment by light microsco py NEGATIVE NRG Squamous epithelial cells detection in u rine sediment by light microscopy RARE NRG Crystals detection in urine sediment by light microsco py NONE NRG Casts detection in urine sediment by light microscopy NONE NRG Mucus detection in urine sediment by light microscopy NEGATIVE NRG Complete urinalysis with reflex to culture NO NRG Urine protein/creatinine mass ratio - 09:40 Urine protein measurement (mass/volume) < mg/dL 6-12 Urine creatinine measurement (mass/volume) 70 mg/d L 30-125 Urine protein/creatinine mass ratio TNP NRG Automated blood complete blood count (he mogram) panel - 04/27/18 10:28 Blood leukocytes automated count (number/volume) 5.6 10*3/uL 4.3-11.0 Blood erythrocytes automated count (number/volume) 5.18 10*6/uL 4.35-5.85 Venous blood hemoglobin measurement (mass/volume) 14.4 g/dL 11.5-16.0 Blood hematocrit (volume fraction) 44 % 35-52 Automated erythrocyte mean corpuscular volume 85 [ foz_us] 80-99 Automated erythrocyte mean corpuscular h emoglobin (mass per erythrocyte) 28 pg 25-34 Automated erythrocyte mean corpuscular h emoglobin concentration measurement (mass/volume) 33 g/dL 32-36 Automated erythrocyte distribution width ratio 12. 9 % 10.0- 14.5 Automated blood platelet count (count/volume) 291 10*3/uL 130-400 Automated blood platelet mean volume measurement 9.3 [foz_us] 7.4-10.4 Serum or plasma renal function panel (Na , K, Cl, CO2, BUN, Cr, glucose,Ca, phos, alb) - 04/27/18 10:28 Serum or plasma sodium measurement (moles/volume) 139 mmol/L 135-145 Serum or plasma potassium measurement (moles/volume) 4.5 mmol/L 3.6-5.0 Serum or plasma chloride measurement (moles/volume) 109 mmol/L 98-107 Carbon dioxide 21 mmol/L 21-32 Serum or plasma anion gap determination (moles/volume) 9 mmol/L 5-14 Serum or plasma urea nitrogen measurement (mass/volume ) 16 mg/dL 7-18 Serum or plasma creatinine measurement (mass/volume) 0.91 mg/dL 0.60-1.30 Serum or plasma urea nitrogen/creatinine mass ratio 18 NRG Serum or plasma creatinine measurement w ith calculation of estimated glomerular filtration rate > NRG Serum or plasma glucose measurement (mass/volume) 97 mg/dL 70-105 Serum or plasma calcium measurement (mass/volume) 9.7 mg/dL 8.5-10.1 Serum or plasma albumin measurement (mass/volume) 4.0 g/dL 3.2-4.5 Serum or plasma phosphate measurement (mass/volume) 3.5 mg/dL 2.3-4.7 Complete urinalysis with reflex to cultu re - 04/27/18 10:30 Urine color determination YELLOW NRG Urine clarity determination SLIGHTLY CLOUDY NRG Urine pH measurement by test strip 6 5-9 Specific gravity of urine by test strip 1.015 1.016-1.022 Urine protein assay by test strip, semi-quantitative NEGATIVE NEGATIVE Urine glucose detection by automated test strip NE GATIVE NEGATIVE Erythrocytes detection in urine sediment by light micr oscopy NEGATIVE NEGATIVE Urine ketones detection by automated test strip NE GATIVE NEGATIVE Urine nitrite detection by test strip NEGATIVE NEGATIVE Urine total bilirubin detection by test strip NEGA TIVE NEGATIVE Urine urobilinogen measurement by automated test strip (mass/volume) NORMAL NORMAL Urine leukocyte esterase detection by dipstick 2+ NEGATIVE Automated urine sediment erythrocyte cou nt by microscopy (number/high power field) NONE NRG Automated urine sediment leukocyte count by microscopy (number/high power field) [HPF] NRG Bacteria detection in urine sediment by light microsco py NEGATIVE NRG Squamous epithelial cells detection in u rine sediment by light microscopy 0-2 NRG Crystals detection in urine sediment by light microsco py NONE NRG Casts detection in urine sediment by light microscopy NONE NRG Mucus detection in urine sediment by light microscopy NEGATIVE NRG Complete urinalysis with reflex to culture NO NRG Urine protein/creatinine mass ratio - 10:30 Urine protein measurement (mass/volume) < mg/dL 6-12 Urine creatinine measurement (mass/volume) 88 mg/d L 30-125 Urine protein/creatinine mass ratio TNP NRG Surgical Pathology - 04/27/18 14:25 Surg Path Sent to [facility] Complete blood count (CBC) with automate d white blood cell (WBC) differential - 05/01/18 10:58 Blood leukocytes automated count (number/volume) 6.6 10*3/uL 4.3-11.0 Blood erythrocytes automated count (number/volume) 4.90 10*6/uL 4.35-5.85 Venous blood hemoglobin measurement (mass/volume) 13.7 g/dL 11.5-16.0 Blood hematocrit (volume fraction) 42 % 35-52 Automated erythrocyte mean corpuscular volume 85 [ foz_us] 80-99 Automated erythrocyte mean corpuscular h emoglobin (mass per erythrocyte) 28 pg 25-34 Automated erythrocyte mean corpuscular h emoglobin concentration measurement (mass/volume) 33 g/dL 32-36 Automated erythrocyte distribution width ratio 13. 1 % 10.0- 14.5 Automated blood platelet count (count/volume) 299 10*3/uL [...] 10*3 1.0-4.0 Blood monocytes automated count (number/volume) 0. 7 10*3 0.0-1.0 Automated eosinophil count 0.1 10*3/uL 0 .0-0.3 Automated blood basophil count (count/volume) 0.0 10*3/uL 0.0-0.1 Comprehensive metabolic panel - 05/01/18 10:58 Serum or plasma sodium measurement (moles/volume) 139 mmol/L 135-145 Serum or plasma potassium measurement (moles/volume) 4.4 mmol/L 3.6-5.0 Serum or plasma chloride measurement (moles/volume) 109 mmol/L 98-107 Carbon dioxide 21 mmol/L 21-32 Serum or plasma anion gap determination (moles/volume) 9 mmol/L 5-14 Serum or plasma urea nitrogen measurement (mass/volume ) 17 mg/dL 7-18 Serum or plasma creatinine measurement (mass/volume) 0.81 mg/dL 0.60-1.30 Serum or plasma urea nitrogen/creatinine mass ratio 21 NRG Serum or plasma creatinine measurement w ith calculation of estimated glomerular filtration rate > NRG Serum or plasma glucose measurement (mass/volume) 104 mg/dL 70-105 Serum or plasma calcium measurement (mass/volume) 9.4 mg/dL 8.5-10.1 Serum or plasma total bilirubin measurement (mass/volu me) 0.4 mg/dL 0.1-1.0 Serum or plasma alkaline phosphatase joann surement (enzymatic activity/volume) 90 U/L 40-136 Serum or plasma aspartate aminotransfera se measurement (enzymatic activity/volume) 19 U/L 5-34 Serum or plasma alanine aminotransferase measurement (enzymatic activity/volume) 25 U/L 0-55 Serum or plasma protein measurement (mass/volume) 7.5 g/dL 6.4-8.2 Serum or plasma albumin measurement (mass/volume) 3.9 g/dL 3.2-4.5 Serum or plasma lithium measurement (mol es/volume) - 05/01/18 10:58 BNP level 54.6 pg/mL <100.0 Complete urinalysis with reflex to cultu re - 05/01/18 11:11 Urine color determination YELLOW NRG Urine clarity determination CLEAR NR G Urine pH measurement by test strip 6 5-9 Specific gravity of urine by test strip 1.010 1.016-1.022 Urine protein assay by test strip, semi-quantitative NEGATIVE NEGATIVE Urine glucose detection by automated test strip NE GATIVE NEGATIVE Erythrocytes detection in urine sediment by light micr oscopy NEGATIVE NEGATIVE Urine ketones detection by automated test strip NE GATIVE NEGATIVE Urine nitrite detection by test strip NEGATIVE NEGATIVE Urine total bilirubin detection by test strip NEGA TIVE NEGATIVE Urine urobilinogen measurement by automated test strip (mass/volume) NORMAL NORMAL Urine leukocyte esterase detection by dipstick 1+ NEGATIVE Automated urine sediment erythrocyte cou nt by microscopy (number/high power field) RARE NRG Automated urine sediment leukocyte count by microscopy (number/high power field) [HPF] NRG Bacteria detection in urine sediment by light microsco py TRACE NRG Squamous epithelial cells detection in u rine sediment by light microscopy 5-10 NRG Crystals detection in urine sediment by light microsco py NONE NRG Casts detection in urine sediment by light microscopy NONE NRG Mucus detection in urine sediment by light microscopy NEGATIVE NRG Complete urinalysis with reflex to culture NO NRG Serum or plasma troponin i.cardiac measu rement (mass/volume) - 05/01/18 12:26 Serum or plasma troponin i.cardiac measurement (mass/v olume) < ng/mL <0.30 Complete blood count (CBC) with automate d white blood cell (WBC) differential - 07/23/18 17:45 Blood leukocytes automated count (number/volume) 9.3 10*3/uL 4.3-11.0 Blood erythrocytes automated count (number/volume) 4.71 10*6/uL 4.35-5.85 Venous blood hemoglobin measurement (mass/volume) 13.6 g/dL 11.5-16.0 Blood hematocrit (volume fraction) 41 % 35-52 Automated erythrocyte mean corpuscular volume 87 [ foz_us] 80-99 Automated erythrocyte mean corpuscular h emoglobin (mass per erythrocyte) 29 pg 25-34 Automated erythrocyte mean corpuscular h emoglobin concentration measurement (mass/volume) 33 g/dL 32-36 Automated erythrocyte distribution width ratio 13. 2 % 10.0- 14.5 Automated blood platelet count (count/volume) 297 10*3/uL [...] 10*3 1.0-4.0 Blood monocytes automated count (number/volume) 0. 7 10*3 0.0-1.0 Automated eosinophil count 0.1 10*3/uL 0 .0-0.3 Automated blood basophil count (count/volume) 0.0 10*3/uL 0.0-0.1 PT panel in platelet poor plasma by coag ulation assay - 07/23/18 17:45 Prothrombin time (PT) in platelet poor plasma by coagu lation assay 13.8 s 12.2-14.7 INR in platelet poor plasma or blood by coagulation as say 1.1 0.8-1.4 Activated partial thromboplastin time (a PTT) in platelet poor plasma bycoagulation assay - 07/23/18 17:45 Activated partial thromboplastin time (a PTT) in platelet poor plasma bycoagulation assay 31 s 24-35 Comprehensive metabolic panel - 07/23/18 17:45 Serum or plasma sodium measurement (moles/volume) 138 mmol/L 135-145 Serum or plasma potassium measurement (moles/volume) 4.0 mmol/L 3.6-5.0 Serum or plasma chloride measurement (moles/volume) 107 mmol/L 98-107 Carbon dioxide 21 mmol/L 21-32 Serum or plasma anion gap determination (moles/volume) 10 mmol/L 5-14 Serum or plasma urea nitrogen measurement (mass/volume ) 19 mg/dL 7-18 Serum or plasma creatinine measurement (mass/volume) 0.94 mg/dL 0.60-1.30 Serum or plasma urea nitrogen/creatinine mass ratio 20 NRG Serum or plasma creatinine measurement w ith calculation of estimated glomerular filtration rate > NRG Serum or plasma glucose measurement (mass/volume) 97 mg/dL 70-105 Serum or plasma calcium measurement (mass/volume) 9.2 mg/dL 8.5-10.1 Serum or plasma total bilirubin measurement (mass/volu me) 0.3 mg/dL 0.1-1.0 Serum or plasma alkaline phosphatase joann surement (enzymatic activity/volume) 92 U/L 40-136 Serum or plasma aspartate aminotransfera se measurement (enzymatic activity/volume) 18 U/L 5-34 Serum or plasma alanine aminotransferase measurement (enzymatic activity/volume) 23 U/L 0-55 Serum or plasma protein measurement (mass/volume) 7.5 g/dL 6.4-8.2 Serum or plasma albumin measurement (mass/volume) 4.0 g/dL 3.2-4.5 CALCIUM CORRECTED 9.2 mg/dL 8.5-10.1 Magnesium - 07/23/18 17:45 Magnesium 1.8 mg/dL 1.8-2.4 Serum or plasma troponin i.cardiac measu rement (mass/volume) - 07/23/18 17:45 Serum or plasma troponin i.cardiac measurement (mass/v olume) < ng/mL <0.30 Myoglobin, serum - 07/23/18 17:45 Myoglobin, serum 51.5 ng/mL 10.0-92.0 Serum or plasma amylase measurement (enz ymatic activity/volume) - 07/23/18 17:45 Serum or plasma amylase measurement (enzymatic activit y/volume) 71 U/L 25-125 Serum or plasma lithium measurement (mol es/volume) - 07/23/18 17:45 BNP level 21.1 pg/mL <100.0 Lipase - 07/23/18 17:45 Lipase 65 U/L 8-78 Serum or plasma troponin i.cardiac measu rement (mass/volume) - 07/23/18 20:20 Serum or plasma troponin i.cardiac measurement (mass/v olume) < ng/mL <0.30 Comprehensive Metabolic Panel - 07/27/18 13:09 [...] g/dL 6.0-8.3 Complete urinalysis with reflex to cultu re - 08/27/18 20:41 Urine color determination YELLOW NRG Urine clarity determination CLEAR NR G Urine pH measurement by test strip 6 5-9 Specific gravity of urine by test strip 1.005 1.016-1.022 Urine protein assay by test strip, semi-quantitative NEGATIVE NEGATIVE Urine glucose detection by automated test strip NE GATIVE NEGATIVE Erythrocytes detection in urine sediment by light micr oscopy NEGATIVE NEGATIVE Urine ketones detection by automated test strip NE GATIVE NEGATIVE Urine nitrite detection by test strip NEGATIVE NEGATIVE Urine total bilirubin detection by test strip NEGA TIVE NEGATIVE Urine urobilinogen measurement by automated test strip (mass/volume) NORMAL NORMAL Urine leukocyte esterase detection by dipstick NEG ATIVE NEGATIVE Automated urine sediment erythrocyte cou nt by microscopy (number/high power field) NONE NRG Automated urine sediment leukocyte count by microscopy (number/high power field) NONE NRG Bacteria detection in urine sediment by light microsco py NEGATIVE NRG Squamous epithelial cells detection in u rine sediment by light microscopy 0-2 NRG Crystals detection in urine sediment by light microsco py NONE NRG Casts detection in urine sediment by light microscopy NONE NRG Mucus detection in urine sediment by light microscopy NEGATIVE NRG Complete urinalysis with reflex to culture NO NRG Influenza virus A and B antigen detectio n - 08/27/18 20:54 FLU RESULT NEGATIVE FOR INFLUENZA A AND B ANTIGENS BY IA NRG Complete blood count (CBC) with automate d white blood cell (WBC) differential - 08/27/18 21:00 Blood leukocytes automated count (number/volume) 9.3 10*3/uL 4.3-11.0 Blood erythrocytes automated count (number/volume) 5.07 10*6/uL 4.35-5.85 Venous blood hemoglobin measurement (mass/volume) 14.2 g/dL 11.5-16.0 Blood hematocrit (volume fraction) 43 % 35-52 Automated erythrocyte mean corpuscular volume 86 [ foz_us] 80-99 Automated erythrocyte mean corpuscular h emoglobin (mass per erythrocyte) 28 pg 25-34 Automated erythrocyte mean corpuscular h emoglobin concentration measurement (mass/volume) 33 g/dL 32-36 Automated erythrocyte distribution width ratio 13. 3 % 10.0- 14.5 Automated blood platelet count (count/volume) 260 10*3/uL [...] 10*3 1.0-4.0 Blood monocytes automated count (number/volume) 0. 6 10*3 0.0-1.0 Automated eosinophil count 0.1 10*3/uL 0 .0-0.3 Automated blood basophil count (count/volume) 0.0 10*3/uL 0.0-0.1 Serum or plasma choriogonadotropin (preg tino test) detection - 08/27/18 21:00 Serum or plasma choriogonadotropin ( test) de tection NEGATIVE NEGATIVE Comprehensive metabolic panel - 08/27/18 21:00 Serum or plasma sodium measurement (moles/volume) 134 mmol/L 135-145 Serum or plasma potassium measurement (moles/volume) 3.8 mmol/L 3.6-5.0 Serum or plasma chloride measurement (moles/volume) 103 mmol/L 98-107 Carbon dioxide 20 mmol/L 21-32 Serum or plasma anion gap determination (moles/volume) 11 mmol/L 5-14 Serum or plasma urea nitrogen measurement (mass/volume ) 14 mg/dL 7-18 Serum or plasma creatinine measurement (mass/volume) 0.91 mg/dL 0.60-1.30 Serum or plasma urea nitrogen/creatinine mass ratio 15 NRG Serum or plasma creatinine measurement w ith calculation of estimated glomerular filtration rate > NRG Serum or plasma glucose measurement (mass/volume) 99 mg/dL 70-105 Serum or plasma calcium measurement (mass/volume) 9.4 mg/dL 8.5-10.1 Serum or plasma total bilirubin measurement (mass/volu me) 0.7 mg/dL 0.1-1.0 Serum or plasma alkaline phosphatase joann surement (enzymatic activity/volume) 81 U/L 40-136 Serum or plasma aspartate aminotransfera se measurement (enzymatic activity/volume) 19 U/L 5-34 Serum or plasma alanine aminotransferase measurement (enzymatic activity/volume) 23 U/L 0-55 Serum or plasma protein measurement (mass/volume) 7.7 g/dL 6.4-8.2 Serum or plasma albumin measurement (mass/volume) 4.1 g/dL 3.2-4.5 CALCIUM CORRECTED 9.3 mg/dL 8.5-10.1 Lipase - 08/27/18 21:00 Lipase 69 U/L 8-78 Serum or plasma C reactive protein measu rement (mass/volume) - 08/27/18 21:00 Serum or plasma C reactive protein measurement (mass/v olume) 0.23 mg/dL 0.00-0.50 Test-Serum - 08/29/18 07:49 Preg Test-S Negative Negative [facility] - 08/29/18 08:50 Surg Path Sent to [facility] Complete blood count (CBC) with automate d white blood cell (WBC) differential - 09/08/18 09:25 Blood leukocytes automated count (number/volume) 5.5 10*3/uL 4.3-11.0 Blood erythrocytes automated count (number/volume) 5.32 10*6/uL 4.35-5.85 Venous blood hemoglobin measurement (mass/volume) 14.7 g/dL 11.5-16.0 Blood hematocrit (volume fraction) 46 % 35-52 Automated erythrocyte mean corpuscular volume 87 [ foz_us] 80-99 Automated erythrocyte mean corpuscular h emoglobin (mass per erythrocyte) 28 pg 25-34 Automated erythrocyte mean corpuscular h emoglobin concentration measurement (mass/volume) 32 g/dL 32-36 Automated erythrocyte distribution width ratio 13. 1 % 10.0- 14.5 Automated blood platelet count (count/volume) 266 10*3/uL [...] 10*3 1.0-4.0 Blood monocytes automated count (number/volume) 0. 5 10*3 0.0-1.0 Automated eosinophil count 0.1 10*3/uL 0 .0-0.3 Automated blood basophil count (count/volume) 0.0 10*3/uL 0.0-0.1 FK 506 - 09/08/18 09:25 Tacrolimus blood 5.8 % NRG Urine protein/creatinine mass ratio - 09:30 Urine protein measurement (mass/volume) < mg/dL 6-12 Urine creatinine measurement (mass/volume) 65 mg/d L 30-125 Urine protein/creatinine mass ratio TNP NRG IGP, Aptima HPV - 11/06/18 14:59 HPV Aptima Negative Negative DIAGNOSIS: Comment Specimen adequacy: Comment Performed by: Comment . . Note: Comment Test Methodology: TNP Capillary blood glucose measurement by g lucometer (mass/volume) - 12/17/18 23:47 Capillary blood glucose measurement by glucometer (mas s/volume) 98 mg/dL 70-110 Complete blood count (CBC) with automate d white blood cell (WBC) differential - 12/18/18 00:01 Blood leukocytes automated count (number/volume) 11.4 10*3/uL 4.3-11.0 Blood erythrocytes automated count (number/volume) 5.01 10*6/uL 4.35-5.85 Venous blood hemoglobin measurement (mass/volume) 14.0 g/dL 11.5-16.0 Blood hematocrit (volume fraction) 43 % 35-52 Automated erythrocyte mean corpuscular volume 85 [ foz_us] 80-99 Automated erythrocyte mean corpuscular h emoglobin (mass per erythrocyte) 28 pg 25-34 Automated erythrocyte mean corpuscular h emoglobin concentration measurement (mass/volume) 33 g/dL 32-36 Automated erythrocyte distribution width ratio 13. 5 % 10.0- 14.5 Automated blood platelet count (count/volume) 306 10*3/uL 130-400 Automated blood platelet mean volume measurement 9.6 [foz_us] 7.4-10.4 Automated blood neutrophils/100 leukocytes 46 % 42-75 Automated blood lymphocytes/100 leukocytes 42 % 12-44 Blood monocytes/100 leukocytes 9 % 0-12 Automated blood eosinophils/100 leukocytes 2 % 0-10 Automated blood basophils/100 leukocytes 0 % 0-10 Blood neutrophils automated count (number/volume) 5.3 10*3 1.8-7.8 Blood lymphocytes automated count (number/volume) 4.8 10*3 1.0-4.0 Blood monocytes automated count (number/volume) 1. 1 10*3 0.0-1.0 Automated eosinophil count 0.2 10*3/uL 0 .0-0.3 Automated blood basophil count (count/volume) 0.0 10*3/uL 0.0-0.1 Comprehensive metabolic panel - 12/18/18 00:01 Serum or plasma sodium measurement (moles/volume) 140 mmol/L 135-145 Serum or plasma potassium measurement (moles/volume) 3.8 mmol/L 3.6-5.0 Serum or plasma chloride measurement (moles/volume) 108 mmol/L 98-107 Carbon dioxide 18 mmol/L 21-32 Serum or plasma anion gap determination (moles/volume) 14 mmol/L 5-14 Serum or plasma urea nitrogen measurement (mass/volume ) 18 mg/dL 7-18 Serum or plasma creatinine measurement (mass/volume) 0.96 mg/dL 0.60-1.30 Serum or plasma urea nitrogen/creatinine mass ratio 19 NRG Serum or plasma creatinine measurement w ith calculation of estimated glomerular filtration rate > NRG Serum or plasma glucose measurement (mass/volume) 113 mg/dL 70-105 Serum or plasma calcium measurement (mass/volume) 9.2 mg/dL 8.5-10.1 Serum or plasma total bilirubin measurement (mass/volu me) 0.3 mg/dL 0.1-1.0 Serum or plasma alkaline phosphatase joann surement (enzymatic activity/volume) 84 U/L 40-136 Serum or plasma aspartate aminotransfera se measurement (enzymatic activity/volume) 24 U/L 5-34 Serum or plasma alanine aminotransferase measurement (enzymatic activity/volume) 21 U/L 0-55 Serum or plasma protein measurement (mass/volume) 7.9 g/dL 6.4-8.2 Serum or plasma albumin measurement (mass/volume) 3.9 g/dL 3.2-4.5 CALCIUM CORRECTED 9.3 mg/dL 8.5-10.1 Complete urinalysis with reflex to cultu re - 12/18/18 00:02 Urine color determination YELLOW NRG Urine clarity determination CLEAR NR G Urine pH measurement by test strip 6 5-9 Specific gravity of urine by test strip 1.015 1.016-1.022 Urine protein assay by test strip, semi-quantitative NEGATIVE NEGATIVE Urine glucose detection by automated test strip NE GATIVE NEGATIVE Erythrocytes detection in urine sediment by light micr oscopy NEGATIVE NEGATIVE Urine ketones detection by automated test strip NE GATIVE NEGATIVE Urine nitrite detection by test strip NEGATIVE NEGATIVE Urine total bilirubin detection by test strip NEGA TIVE NEGATIVE Urine urobilinogen measurement by automated test strip (mass/volume) NORMAL NORMAL Urine leukocyte esterase detection by dipstick 2+ NEGATIVE Automated urine sediment erythrocyte cou nt by microscopy (number/high power field) NONE NRG Automated urine sediment leukocyte count by microscopy (number/high power field) [HPF] NRG Bacteria detection in urine sediment by light microsco py TRACE NRG Squamous epithelial cells detection in u rine sediment by light microscopy 0-2 NRG Crystals detection in urine sediment by light microsco py NONE NRG Casts detection in urine sediment by light microscopy NONE NRG Mucus detection in urine sediment by light microscopy NEGATIVE NRG Complete urinalysis with reflex to culture YES NRG Bacterial urine culture - 12/18/18 00:02 Bacterial urine culture SEE REPORT NRG COLONY COUNT . NRG THYROID STIMULATING HORMONE - 01/15/19 1 0:30 THYROID STIMULATING HORMONE 2.20 u[iU]/mL 0.35-4.94 Serum or plasma thyroxine (T4) free robbie urement (mass/volume) - 01/15/19 10:30 Serum or plasma thyroxine (T4) free measurement (mass/ volume) 1.01 ng/dL 0.70-1.48 Total triiodothyronine (T3) measurement - 01/15/19 10:30 Total triiodothyronine (T3) measurement 0.79 % 0.60-1.80 Complete blood count (CBC) with automate d white blood cell (WBC) differential - 02/10/19 22:30 Blood leukocytes automated count (number/volume) 12.3 10*3/uL 4.3-11.0 Blood erythrocytes automated count (number/volume) 5.23 10*6/uL 4.35-5.85 Venous blood hemoglobin measurement (mass/volume) 14.6 g/dL 11.5-16.0 Blood hematocrit (volume fraction) 44 % 35-52 Automated erythrocyte mean corpuscular volume 85 [ foz_us] 80-99 Automated erythrocyte mean corpuscular h emoglobin (mass per erythrocyte) 28 pg 25-34 Automated erythrocyte mean corpuscular h emoglobin concentration measurement (mass/volume) 33 g/dL 32-36 Automated erythrocyte distribution width ratio 13. 3 % 10.0- 14.5 Automated blood platelet count (count/volume) 366 10*3/uL 130-400 Automated blood platelet mean volume measurement 9.1 [foz_us] 7.4-10.4 Automated blood neutrophils/100 leukocytes 54 % 42-75 Automated blood lymphocytes/100 leukocytes 38 % 12-44 Blood monocytes/100 leukocytes 7 % 0-12 Automated blood eosinophils/100 leukocytes 1 % 0-10 Automated blood basophils/100 leukocytes 0 % 0-10 Blood neutrophils automated count (number/volume) 6.7 10*3 1.8-7.8 Blood lymphocytes automated count (number/volume) 4.7 10*3 1.0-4.0 Blood monocytes automated count (number/volume) 0. 8 10*3 0.0-1.0 Automated eosinophil count 0.1 10*3/uL 0 .0-0.3 Automated blood basophil count (count/volume) 0.0 10*3/uL 0.0-0.1 Comprehensive metabolic panel - 02/10/19 22:30 Serum or plasma sodium measurement (moles/volume) 139 mmol/L 135-145 Serum or plasma potassium measurement (moles/volume) 4.2 mmol/L 3.6-5.0 Serum or plasma chloride measurement (moles/volume) 107 mmol/L 98-107 Carbon dioxide 22 mmol/L 21-32 Serum or plasma anion gap determination (moles/volume) 10 mmol/L 5-14 Serum or plasma urea nitrogen measurement (mass/volume ) 19 mg/dL 7-18 Serum or plasma creatinine measurement (mass/volume) 1.16 mg/dL 0.60-1.30 Serum or plasma urea nitrogen/creatinine mass ratio 16 NRG Serum or plasma creatinine measurement w ith calculation of estimated glomerular filtration rate 51 NRG Serum or plasma glucose measurement (mass/volume) 91 mg/dL 70-105 Serum or plasma calcium measurement (mass/volume) 10.2 mg/dL 8.5-10.1 Serum or plasma total bilirubin measurement (mass/volu me) 0.3 mg/dL 0.1-1.0 Serum or plasma alkaline phosphatase joann surement (enzymatic activity/volume) 92 U/L 40-136 Serum or plasma aspartate aminotransfera se measurement (enzymatic activity/volume) 20 U/L 5-34 Serum or plasma alanine aminotransferase measurement (enzymatic activity/volume) 23 U/L 0-55 Serum or plasma protein measurement (mass/volume) 8.6 g/dL 6.4-8.2 Serum or plasma albumin measurement (mass/volume) 4.4 g/dL 3.2-4.5 CALCIUM CORRECTED 9.9 mg/dL 8.5-10.1 Magnesium - 02/10/19 22:30 Magnesium 2.2 mg/dL 1.8-2.4 Serum or plasma amylase measurement (enz ymatic activity/volume) - 02/10/19 22:30 Serum or plasma amylase measurement (enzymatic activit y/volume) 66 U/L 25-125 Lipase - 02/10/19 22:30 Lipase 42 U/L 8-78 Urine beta human chorionic gonadotropin (hCG) measurement - 02/10/19 22:40 Urine beta human chorionic gonadotropin (hCG) measurem ent NEGATIVE NEGATIVE Complete urinalysis with reflex to cultu re - 02/10/19 22:40 Urine color determination YELLOW NRG Urine clarity determination CLEAR NR G Urine pH measurement by test strip 5 5-9 Specific gravity of urine by test strip 1.015 1.016-1.022 Urine protein assay by test strip, semi-quantitative NEGATIVE NEGATIVE Urine glucose detection by automated test strip NE GATIVE NEGATIVE Erythrocytes detection in urine sediment by light micr oscopy NEGATIVE NEGATIVE Urine ketones detection by automated test strip NE GATIVE NEGATIVE Urine nitrite detection by test strip NEGATIVE NEGATIVE Urine total bilirubin detection by test strip NEGA TIVE NEGATIVE Urine urobilinogen measurement by automated test strip (mass/volume) NORMAL NORMAL Urine leukocyte esterase detection by dipstick 2+ NEGATIVE Automated urine sediment erythrocyte cou nt by microscopy (number/high power field) NONE NRG Automated urine sediment leukocyte count by microscopy (number/high power field) [HPF] NRG Bacteria detection in urine sediment by light microsco py NEGATIVE NRG Squamous epithelial cells detection in u rine sediment by light microscopy RARE NRG Crystals detection in urine sediment by light microsco py NONE NRG Casts detection in urine sediment by light microscopy NONE NRG Mucus detection in urine sediment by light microscopy NEGATIVE NRG Complete urinalysis with reflex to culture NO NRG Complete blood count (CBC) with automate d white blood cell (WBC) differential - 04/04/19 08:35 Blood leukocytes automated count (number/volume) 8.2 10*3/uL 4.3-11.0 Blood erythrocytes automated count (number/volume) 5.09 10*6/uL 4.35-5.85 Venous blood hemoglobin measurement (mass/volume) 14.1 g/dL 11.5-16.0 Blood hematocrit (volume fraction) 43 % 35-52 Automated erythrocyte mean corpuscular volume 84 [ foz_us] 80-99 Automated erythrocyte mean corpuscular h emoglobin (mass per erythrocyte) 28 pg 25-34 Automated erythrocyte mean corpuscular h emoglobin concentration measurement (mass/volume) 33 g/dL 32-36 Automated erythrocyte distribution width ratio 13. 8 % 10.0- 14.5 Automated blood platelet count (count/volume) 319 10*3/uL 130-400 Automated blood platelet mean volume measurement 9.2 [foz_us] 7.4-10.4 Automated blood neutrophils/100 leukocytes 48 % 42-75 Automated blood lymphocytes/100 leukocytes 43 % 12-44 Blood monocytes/100 leukocytes 7 % 0-12 Automated blood eosinophils/100 leukocytes 2 % 0-10 Automated blood basophils/100 leukocytes 0 % 0-10 Blood neutrophils automated count (number/volume) 3.9 10*3 1.8-7.8 Blood lymphocytes automated count (number/volume) 3.5 10*3 1.0-4.0 Blood monocytes automated count (number/volume) 0. 6 10*3 0.0-1.0 Automated eosinophil count 0.2 10*3/uL 0 .0-0.3 Automated blood basophil count (count/volume) 0.0 10*3/uL 0.0-0.1 Serum or plasma renal function panel (Na , K, Cl, CO2, BUN, Cr, glucose,Ca, phos, alb) - 04/04/19 08:35 Serum or plasma sodium measurement (moles/volume) 139 mmol/L 135-145 Serum or plasma potassium measurement (moles/volume) 4.4 mmol/L 3.6-5.0 Serum or plasma chloride measurement (moles/volume) 109 mmol/L 98-107 Carbon dioxide 21 mmol/L 21-32 Serum or plasma anion gap determination (moles/volume) 9 mmol/L 5-14 Serum or plasma urea nitrogen measurement (mass/volume ) 18 mg/dL 7-18 Serum or plasma creatinine measurement (mass/volume) 0.91 mg/dL 0.60-1.30 Serum or plasma urea nitrogen/creatinine mass ratio 20 NRG Serum or plasma creatinine measurement w ith calculation of estimated glomerular filtration rate > NRG Serum or plasma glucose measurement (mass/volume) 95 mg/dL 70-105 Serum or plasma calcium measurement (mass/volume) 9.5 mg/dL 8.5-10.1 Serum or plasma albumin measurement (mass/volume) 4.0 g/dL 3.2-4.5 Serum or plasma phosphate measurement (mass/volume) 3.6 mg/dL 2.3-4.7 Serum or plasma uric acid measurement (m ass/volume) - 04/04/19 08:35 Serum or plasma uric acid measurement (mass/volume) 5.0 mg/dL 2.6-7.2 Magnesium - 04/04/19 08:35 Magnesium 1.8 mg/dL 1.8-2.4 Serum or plasma creatine kinase measurem ent (enzymatic activity/volume) - 04/04/19 08:35 Serum or plasma creatine kinase measurem ent (enzymatic activity/volume) 46 U/L 29-168 FK 506 - 04/04/19 08:35 Tacrolimus blood 4.2 % NRG Complete urinalysis with reflex to cultu re - 04/04/19 08:40 Urine color determination YELLOW NRG Urine clarity determination CLEAR NR G Urine pH measurement by test strip 6 5-9 Specific gravity of urine by test strip 1.015 1.016-1.022 Urine protein assay by test strip, semi-quantitative NEGATIVE NEGATIVE Urine glucose detection by automated test strip NE GATIVE NEGATIVE Erythrocytes detection in urine sediment by light micr oscopy NEGATIVE NEGATIVE Urine ketones detection by automated test strip NE GATIVE NEGATIVE Urine nitrite detection by test strip NEGATIVE NEGATIVE Urine total bilirubin detection by test strip NEGA TIVE NEGATIVE Urine urobilinogen measurement by automated test strip (mass/volume) NORMAL NORMAL Urine leukocyte esterase detection by dipstick 2+ NEGATIVE Automated urine sediment erythrocyte cou nt by microscopy (number/high power field) NONE NRG Automated urine sediment leukocyte count by microscopy (number/high power field) [HPF] NRG Bacteria detection in urine sediment by light microsco py TRACE NRG Squamous epithelial cells detection in u rine sediment by light microscopy 0-2 NRG Crystals detection in urine sediment by light microsco py NONE NRG Casts detection in urine sediment by light microscopy NONE NRG Mucus detection in urine sediment by light microscopy NEGATIVE NRG Complete urinalysis with reflex to culture YES NRG Renal epithelial cells detection in urin e sediment by light microscopy 0-2 NRG Urine protein/creatinine mass ratio - 08:40 Urine protein measurement (mass/volume) < mg/dL 6-12 Urine creatinine measurement (mass/volume) 78 mg/d L 30-125 Urine protein/creatinine mass ratio TNP NRG Bacterial urine culture - 04/04/19 08:40 Bacterial urine culture NG NRG Complete blood count (CBC) with automate d white blood cell (WBC) differential - 05/18/19 09:14 Blood leukocytes automated count (number/volume) 6.3 10*3/uL 4.3-11.0 Blood erythrocytes automated count (number/volume) 5.10 10*6/uL 4.35-5.85 Venous blood hemoglobin measurement (mass/volume) 14.1 g/dL 11.5-16.0 Blood hematocrit (volume fraction) 44 % 35-52 Automated erythrocyte mean corpuscular volume 86 [ foz_us] 80-99 Automated erythrocyte mean corpuscular h emoglobin (mass per erythrocyte) 28 pg 25-34 Automated erythrocyte mean corpuscular h emoglobin concentration measurement (mass/volume) 32 g/dL 32-36 Automated erythrocyte distribution width ratio 13. 4 % 10.0- 14.5 Automated blood platelet count (count/volume) 282 10*3/uL 130-400 Automated blood platelet mean volume measurement 9.2 [foz_us] 7.4-10.4 Automated blood neutrophils/100 leukocytes 44 % 42-75 Automated blood lymphocytes/100 leukocytes 47 % 12-44 Blood monocytes/100 leukocytes 7 % 0-12 Automated blood eosinophils/100 leukocytes 2 % 0-10 Automated blood basophils/100 leukocytes 0 % 0-10 Blood neutrophils automated count (number/volume) 2.7 10*3 1.8-7.8 Blood lymphocytes automated count (number/volume) 2.9 10*3 1.0-4.0 Blood monocytes automated count (number/volume) 0. 4 10*3 0.0-1.0 Automated eosinophil count 0.1 10*3/uL 0 .0-0.3 Automated blood basophil count (count/volume) 0.0 10*3/uL 0.0-0.1 Serum or plasma renal function panel (Na , K, Cl, CO2, BUN, Cr, glucose,Ca, phos, alb) - 05/18/19 09:14 Serum or plasma sodium measurement (moles/volume) 139 mmol/L 135-145 Serum or plasma potassium measurement (moles/volume) 4.5 mmol/L 3.6-5.0 Serum or plasma chloride measurement (moles/volume) 109 mmol/L 98-107 Carbon dioxide 21 mmol/L 21-32 Serum or plasma anion gap determination (moles/volume) 9 mmol/L 5-14 Serum or plasma urea nitrogen measurement (mass/volume ) 12 mg/dL 7-18 Serum or plasma creatinine measurement (mass/volume) 0.92 mg/dL 0.60-1.30 Serum or plasma urea nitrogen/creatinine mass ratio 13 NRG Serum or plasma creatinine measurement w ith calculation of estimated glomerular filtration rate > NRG Serum or plasma glucose measurement (mass/volume) 93 mg/dL 70-105 Serum or plasma calcium measurement (mass/volume) 9.3 mg/dL 8.5-10.1 Serum or plasma albumin measurement (mass/volume) 3.9 g/dL 3.2-4.5 Serum or plasma phosphate measurement (mass/volume) 3.4 mg/dL 2.3-4.7 Serum or plasma uric acid measurement (m ass/volume) - 05/18/19 09:14 Serum or plasma uric acid measurement (mass/volume) 4.6 mg/dL 2.6-7.2 Magnesium - 05/18/19 09:14 Magnesium 2.1 mg/dL 1.8-2.4 Serum or plasma creatine kinase measurem ent (enzymatic activity/volume) - 05/18/19 09:14 Serum or plasma creatine kinase measurem ent (enzymatic activity/volume) 54 U/L 29-168 FK 506 - 05/18/19 09:14 Tacrolimus blood 4.6 % NRG Complete urinalysis with reflex to cultu re - 05/18/19 09:19 Urine color determination YELLOW NRG Urine clarity determination CLEAR NR G Urine pH measurement by test strip 6.5 5-9 Specific gravity of urine by test strip 1.010 1.016-1.022 Urine protein assay by test strip, semi-quantitative NEGATIVE NEGATIVE Urine glucose detection by automated test strip NE GATIVE NEGATIVE Erythrocytes detection in urine sediment by light micr oscopy NEGATIVE NEGATIVE Urine ketones detection by automated test strip NE GATIVE NEGATIVE Urine nitrite detection by test strip NEGATIVE NEGATIVE Urine total bilirubin detection by test strip NEGA TIVE NEGATIVE Urine urobilinogen measurement by automated test strip (mass/volume) NORMAL NORMAL Urine leukocyte esterase detection by dipstick 1+ NEGATIVE Automated urine sediment erythrocyte cou nt by microscopy (number/high power field) RARE NRG Automated urine sediment leukocyte count by microscopy (number/high power field) [HPF] NRG Bacteria detection in urine sediment by light microsco py NEGATIVE NRG Squamous epithelial cells detection in u rine sediment by light microscopy 0-2 NRG Crystals detection in urine sediment by light microsco py NONE NRG Casts detection in urine sediment by light microscopy NONE NRG Mucus detection in urine sediment by light microscopy NEGATIVE NRG Complete urinalysis with reflex to culture NO NRG Renal epithelial cells detection in urin e sediment by light microscopy NONE NRG Urine protein/creatinine mass ratio - 09:19 Urine protein measurement (mass/volume) < mg/dL 6-12 Urine creatinine measurement (mass/volume) 59 mg/d L 30-125 Urine protein/creatinine mass ratio TNP NRG Capillary blood glucose measurement by g lucometer (mass/volume) - 06/10/19 12:22 Capillary blood glucose measurement by glucometer (mas s/volume) 96 mg/dL 70-110 Complete blood count (CBC) with automate d white blood cell (WBC) differential - 06/10/19 12:48 Blood leukocytes automated count (number/volume) 8.1 10*3/uL 4.3-11.0 Blood erythrocytes automated count (number/volume) 4.99 10*6/uL 4.35-5.85 Venous blood hemoglobin measurement (mass/volume) 14.0 g/dL 11.5-16.0 Blood hematocrit (volume fraction) 43 % 35-52 Automated erythrocyte mean corpuscular volume 86 [ foz_us] 80-99 Automated erythrocyte mean corpuscular h emoglobin (mass per erythrocyte) 28 pg 25-34 Automated erythrocyte mean corpuscular h emoglobin concentration measurement (mass/volume) 33 g/dL 32-36 Automated erythrocyte distribution width ratio 13. 0 % 10.0- 14.5 Automated blood platelet count (count/volume) 288 10*3/uL 130-400 Automated blood platelet mean volume measurement 9.4 [foz_us] 7.4-10.4 Automated blood neutrophils/100 leukocytes 48 % 42-75 Automated blood lymphocytes/100 leukocytes 40 % 12-44 Blood monocytes/100 leukocytes 10 % 0-12 Automated blood eosinophils/100 leukocytes 1 % 0-10 Automated blood basophils/100 leukocytes 1 % 0-10 Blood neutrophils automated count (number/volume) 3.9 10*3 1.8-7.8 Blood lymphocytes automated count (number/volume) 3.2 10*3 1.0-4.0 Blood monocytes automated count (number/volume) 0. 8 10*3 0.0-1.0 Automated eosinophil count 0.1 10*3/uL 0 .0-0.3 Automated blood basophil count (count/volume) 0.0 10*3/uL 0.0-0.1 Serum or plasma choriogonadotropin (preg tino test) detection - 06/10/19 12:48 Serum or plasma choriogonadotropin ( test) de tection NEGATIVE NEGATIVE PT panel in platelet poor plasma by coag ulation assay - 06/10/19 12:48 Prothrombin time (PT) in platelet poor plasma by coagu lation assay 14.2 s 12.2-14.7 INR in platelet poor plasma or blood by coagulation as say 1.1 0.8-1.4 Activated partial thromboplastin time (a PTT) in platelet poor plasma bycoagulation assay - 06/10/19 12:48 Activated partial thromboplastin time (a PTT) in platelet poor plasma bycoagulation assay 33 s 24-35 Comprehensive metabolic panel - 06/10/19 12:48 Serum or plasma sodium measurement (moles/volume) 139 mmol/L 135-145 Serum or plasma potassium measurement (moles/volume) 3.7 mmol/L 3.6-5.0 Serum or plasma chloride measurement (moles/volume) 111 mmol/L 98-107 Carbon dioxide 18 mmol/L 21-32 Serum or plasma anion gap determination (moles/volume) 10 mmol/L 5-14 Serum or plasma urea nitrogen measurement (mass/volume ) 14 mg/dL 7-18 Serum or plasma creatinine measurement (mass/volume) 0.86 mg/dL 0.60-1.30 Serum or plasma urea nitrogen/creatinine mass ratio 16 NRG Serum or plasma creatinine measurement w ith calculation of estimated glomerular filtration rate > NRG Serum or plasma glucose measurement (mass/volume) 74 mg/dL 70-105 Serum or plasma calcium measurement (mass/volume) 9.3 mg/dL 8.5-10.1 Serum or plasma total bilirubin measurement (mass/volu me) 0.4 mg/dL 0.1-1.0 Serum or plasma alkaline phosphatase joann surement (enzymatic activity/volume) 95 U/L 40-136 Serum or plasma aspartate aminotransfera se measurement (enzymatic activity/volume) 11 U/L 5-34 Serum or plasma alanine aminotransferase measurement (enzymatic activity/volume) 13 U/L 0-55 Serum or plasma protein measurement (mass/volume) 7.6 g/dL 6.4-8.2 Serum or plasma albumin measurement (mass/volume) 3.9 g/dL 3.2-4.5 CALCIUM CORRECTED 9.4 mg/dL 8.5-10.1 Magnesium - 06/10/19 12:48 Magnesium 1.4 mg/dL 1.8-2.4 Serum or plasma amylase measurement (enz ymatic activity/volume) - 06/10/19 12:48 Serum or plasma amylase measurement (enzymatic activit y/volume) 81 U/L 25-125 Lipase - 06/10/19 12:48 Lipase 105 U/L 8-78 Serum or plasma thyrotropin measurement by detection limit <=0.05 miu/l (units/volume) - 06/10/19 12:48 Serum or plasma thyrotropin measurement by detection limit <=0.05 miu/l (units/volume) 1.31 u[iU]/mL 0.35-4.94 Serum or plasma ethanol measurement (mas s/volume) - 06/10/19 12:48 Serum or plasma ethanol measurement (mass/volume) < mg/dL <10 Urine drug screening test - 06/10/19 12: 51 Urine phencyclidine detection by screening method NEGATIVE NEGATIVE Urine benzodiazepines detection by screening method NEGATIVE NEGATIVE Urine cocaine detection NEGATIVE NEGATI VE Urine amphetamines detection by screening method N EGATIVE NEGATIVE Urine methamphetamine detection by screening method NEGATIVE NEGATIVE Urine cannabinoids detection by screening method N EGATIVE NEGATIVE Urine opiates detection by screening method NEGATI VE NEGATIVE Urine barbiturates detection NEGATIVE N EGATIVE Screening urine tricyclic antidepressants detection NEGATIVE NEGATIVE Urine methadone detection by screening method NEGA TIVE NEGATIVE Urine oxycodone detection NEGATIVE NEGA TIVE Urine propoxyphene detection NEGATIVE N EGATIVE Complete urinalysis with reflex to cultu re - 06/10/19 12:51 Urine color determination YELLOW NRG Urine clarity determination CLEAR NR G Urine pH measurement by test strip 5 5-9 Specific gravity of urine by test strip 1.010 1.016-1.022 Urine protein assay by test strip, semi-quantitative NEGATIVE NEGATIVE Urine glucose detection by automated test strip NE GATIVE NEGATIVE Erythrocytes detection in urine sediment by light micr oscopy NEGATIVE NEGATIVE Urine ketones detection by automated test strip NE GATIVE NEGATIVE Urine nitrite detection by test strip NEGATIVE NEGATIVE Urine total bilirubin detection by test strip NEGA TIVE NEGATIVE Urine urobilinogen measurement by automated test strip (mass/volume) NORMAL NORMAL Urine leukocyte esterase detection by dipstick 1+ NEGATIVE Automated urine sediment erythrocyte cou nt by microscopy (number/high power field) NONE NRG Automated urine sediment leukocyte count by microscopy (number/high power field) RARE NRG Bacteria detection in urine sediment by light microsco py FEW NRG Crystals detection in urine sediment by light microsco py NONE NRG Casts detection in urine sediment by light microscopy NONE NRG Mucus detection in urine sediment by light microscopy NEGATIVE NRG Complete urinalysis with reflex to culture NO NRG Renal epithelial cells detection in urin e sediment by light microscopy RARE NRG Test-Serum - 07/11/19 07:55 Preg Test-S Negative Negative Surgical Pathology - 07/11/19 08:58 [facility]urg [facility] Complete blood count (CBC) with automate d white blood cell (WBC) differential - 07/23/19 11:33 Blood leukocytes automated count (number/volume) 6.7 10*3/uL 4.3-11.0 Blood erythrocytes automated count (number/volume) 5.05 10*6/uL 4.35-5.85 Venous blood hemoglobin measurement (mass/volume) 13.9 g/dL 11.5-16.0 Blood hematocrit (volume fraction) 44 % 35-52 Automated erythrocyte mean corpuscular volume 87 [ foz_us] 80-99 Automated erythrocyte mean corpuscular h emoglobin (mass per erythrocyte) 28 pg 25-34 Automated erythrocyte mean corpuscular h emoglobin concentration measurement (mass/volume) 32 g/dL 32-36 Automated erythrocyte distribution width ratio 13. 5 % 10.0- 14.5 Automated blood platelet count (count/volume) 327 10*3/uL 130-400 Automated blood platelet mean volume measurement 9.4 [foz_us] 7.4-10.4 Automated blood neutrophils/100 leukocytes 52 % 42-75 Automated blood lymphocytes/100 leukocytes 37 % 12-44 Blood monocytes/100 leukocytes 9 % 0-12 Automated blood eosinophils/100 leukocytes 2 % 0-10 Automated blood basophils/100 leukocytes 0 % 0-10 Blood neutrophils automated count (number/volume) 3.5 10*3 1.8-7.8 Blood lymphocytes automated count (number/volume) 2.5 10*3 1.0-4.0 Blood monocytes automated count (number/volume) 0. 6 10*3 0.0-1.0 Automated eosinophil count 0.1 10*3/uL 0 .0-0.3 Automated blood basophil count (count/volume) 0.0 10*3/uL 0.0-0.1 Serum or plasma choriogonadotropin (preg tino test) detection - 07/23/19 11:33 Serum or plasma choriogonadotropin ( test) de tection NEGATIVE NEGATIVE PT panel in platelet poor plasma by coag ulation assay - 07/23/19 11:33 Prothrombin time (PT) in platelet poor plasma by coagu lation assay 12.7 s 12.2-14.7 INR in platelet poor plasma or blood by coagulation as say 0.9 0.8-1.4 Activated partial thromboplastin time (a PTT) in platelet poor plasma bycoagulation assay - 07/23/19 11:33 Activated partial thromboplastin time (a PTT) in platelet poor plasma bycoagulation assay 32 s 24-35 Fibrin D-dimer FEU measurement in platel et poor plasma (mass/volume) - 07/23/19 11:33 Fibrin D-dimer FEU measurement in platelet poor plasma (mass/volume) 0.35 ug/mL 0.00-0.49 Comprehensive metabolic panel - 07/23/19 11:33 Serum or plasma sodium measurement (moles/volume) 140 mmol/L 135-145 Serum or plasma potassium measurement (moles/volume) 4.7 mmol/L 3.6-5.0 Serum or plasma chloride measurement (moles/volume) 108 mmol/L 98-107 Carbon dioxide 24 mmol/L 21-32 Serum or plasma anion gap determination (moles/volume) 8 mmol/L 5-14 Serum or plasma urea nitrogen measurement (mass/volume ) 20 mg/dL 7-18 Serum or plasma creatinine measurement (mass/volume) 0.92 mg/dL 0.60-1.30 Serum or plasma urea nitrogen/creatinine mass ratio 22 NRG Serum or plasma creatinine measurement w ith calculation of estimated glomerular filtration rate > NRG Serum or plasma glucose measurement (mass/volume) 101 mg/dL 70-105 Serum or plasma calcium measurement (mass/volume) 9.7 mg/dL 8.5-10.1 Serum or plasma total bilirubin measurement (mass/volu me) 0.5 mg/dL 0.1-1.0 Serum or plasma alkaline phosphatase joann surement (enzymatic activity/volume) 89 U/L 40-136 Serum or plasma aspartate aminotransfera se measurement (enzymatic activity/volume) 17 U/L 5-34 Serum or plasma alanine aminotransferase measurement (enzymatic activity/volume) 21 U/L 0-55 Serum or plasma protein measurement (mass/volume) 7.6 g/dL 6.4-8.2 Serum or plasma albumin measurement (mass/volume) 4.0 g/dL 3.2-4.5 CALCIUM CORRECTED 9.7 mg/dL 8.5-10.1 Magnesium - 07/23/19 11:33 Magnesium 1.9 mg/dL 1.6-2.4 Serum or plasma troponin i.cardiac measu rement (mass/volume) - 07/23/19 11:33 Serum or plasma troponin i.cardiac measurement (mass/v olume) < ng/mL <0.028 Myoglobin, serum - 07/23/19 11:33 Myoglobin, serum 43.7 ng/mL 10.0-92.0 Lipase - 07/23/19 11:33 Lipase 40 U/L 8-78 Serum or plasma lithium measurement (mol es/volume) - 07/23/19 11:33 BNP PT 25.1 pg/mL <100.0 Serum or plasma troponin i.cardiac measu rement (mass/volume) - 07/23/19 13:50 Serum or plasma troponin i.cardiac measurement (mass/v olume) < ng/mL <0.028 Complete blood count (CBC) with automate d white blood cell (WBC) differential - 07/29/19 13:20 Blood leukocytes automated count (number/volume) 8.6 10*3/uL 4.3-11.0 Blood erythrocytes automated count (number/volume) 5.17 10*6/uL 4.35-5.85 Venous blood hemoglobin measurement (mass/volume) 14.5 g/dL 11.5-16.0 Blood hematocrit (volume fraction) 44 % 35-52 Automated erythrocyte mean corpuscular volume 86 [ foz_us] 80-99 Automated erythrocyte mean corpuscular h emoglobin (mass per erythrocyte) 28 pg 25-34 Automated erythrocyte mean corpuscular h emoglobin concentration measurement (mass/volume) 33 g/dL 32-36 Automated erythrocyte distribution width ratio 13. 5 % 10.0- 14.5 Automated blood platelet count (count/volume) 318 10*3/uL 130-400 Automated blood platelet mean volume measurement 9.2 [foz_us] 7.4-10.4 Automated blood neutrophils/100 leukocytes 56 % 42-75 Automated blood lymphocytes/100 leukocytes 32 % 12-44 Blood monocytes/100 leukocytes 11 % 0-12 Automated blood eosinophils/100 leukocytes 1 % 0-10 Automated blood basophils/100 leukocytes 1 % 0-10 Blood neutrophils automated count (number/volume) 4.8 10*3 1.8-7.8 Blood lymphocytes automated count (number/volume) 2.7 10*3 1.0-4.0 Blood monocytes automated count (number/volume) 0. 9 10*3 0.0-1.0 Automated eosinophil count 0.1 10*3/uL 0 .0-0.3 Automated blood basophil count (count/volume) 0.0 10*3/uL 0.0-0.1 PT panel in platelet poor plasma by coag ulation assay - 07/29/19 13:20 Prothrombin time (PT) in platelet poor plasma by coagu lation assay 13.5 s 12.2-14.7 INR in platelet poor plasma or blood by coagulation as say 1.0 0.8-1.4 Activated partial thromboplastin time (a PTT) in platelet poor plasma bycoagulation assay - 07/29/19 13:20 Activated partial thromboplastin time (a PTT) in platelet poor plasma bycoagulation assay 31 s 24-35 Comprehensive metabolic panel - 07/29/19 13:20 Serum or plasma sodium measurement (moles/volume) 139 mmol/L 135-145 Serum or plasma potassium measurement (moles/volume) 3.8 mmol/L 3.6-5.0 Serum or plasma chloride measurement (moles/volume) 112 mmol/L 98-107 Carbon dioxide 17 mmol/L 21-32 Serum or plasma anion gap determination (moles/volume) 10 mmol/L 5-14 Serum or plasma urea nitrogen measurement (mass/volume ) 14 mg/dL 7-18 Serum or plasma creatinine measurement (mass/volume) 0.91 mg/dL 0.60-1.30 Serum or plasma urea nitrogen/creatinine mass ratio 15 NRG Serum or plasma creatinine measurement w ith calculation of estimated glomerular filtration rate > NRG Serum or plasma glucose measurement (mass/volume) 71 mg/dL 70-105 Serum or plasma calcium measurement (mass/volume) 9.2 mg/dL 8.5-10.1 Serum or plasma total bilirubin measurement (mass/volu me) 0.5 mg/dL 0.1-1.0 Serum or plasma alkaline phosphatase joann surement (enzymatic activity/volume) 105 U/L 40-136 Serum or plasma aspartate aminotransfera se measurement (enzymatic activity/volume) 17 U/L 5-34 Serum or plasma alanine aminotransferase measurement (enzymatic activity/volume) 18 U/L 0-55 Serum or plasma protein measurement (mass/volume) 7.9 g/dL 6.4-8.2 Serum or plasma albumin measurement (mass/volume) 4.0 g/dL 3.2-4.5 CALCIUM CORRECTED 9.2 mg/dL 8.5-10.1 Magnesium - 07/29/19 13:20 Magnesium 1.4 mg/dL 1.6-2.4 Serum or plasma troponin i.cardiac measu rement (mass/volume) - 07/29/19 13:20 Serum or plasma troponin i.cardiac measurement (mass/v olume) < ng/mL <0.028 Myoglobin, serum - 07/29/19 13:20 Myoglobin, serum 57.7 ng/mL 10.0-92.0 Lipase - 07/29/19 13:20 Lipase 46 U/L 8-78 Fibrin D-dimer FEU measurement in platel et poor plasma (mass/volume) - 07/29/19 13:20 Fibrin D-dimer FEU measurement in platelet poor plasma (mass/volume) 0.35 ug/mL 0.00-0.49 Serum or plasma C reactive protein measu rement (mass/volume) - 07/29/19 13:20 Serum or plasma C reactive protein measurement (mass/v olume) 0.39 mg/dL 0.00-0.50 Test-Serum - 08/21/19 08:15 Preg Test-S Negative Negative Surgical Pathology - 08/21/19 10:28 [facility]urg Path [facility] Serum or plasma renal function panel (Na , K, Cl, CO2, BUN, Cr, glucose,Ca, phos, alb) - 08/31/19 13:40 Serum or plasma sodium measurement (moles/volume) 138 mmol/L 135-145 Serum or plasma potassium measurement (moles/volume) 4.5 mmol/L 3.6-5.0 Serum or plasma chloride measurement (moles/volume) 108 mmol/L 98-107 Carbon dioxide 22 mmol/L 21-32 Serum or plasma anion gap determination (moles/volume) 8 mmol/L 5-14 Serum or plasma urea nitrogen measurement (mass/volume ) 12 mg/dL 7-18 Serum or plasma creatinine measurement (mass/volume) 0.94 mg/dL 0.60-1.30 Serum or plasma urea nitrogen/creatinine mass ratio 13 NRG Serum or plasma creatinine measurement w ith calculation of estimated glomerular filtration rate > NRG Serum or plasma glucose measurement (mass/volume) 97 mg/dL 70-105 Serum or plasma calcium measurement (mass/volume) 9.4 mg/dL 8.5-10.1 Serum or plasma albumin measurement (mass/volume) 4.1 g/dL 3.2-4.5 Serum or plasma phosphate measurement (mass/volume) 3.4 mg/dL 2.3-4.7 Comprehensive Metabolic Panel - 10/30/19 11:36 Albumin 4.1 g/dL 3.6-5.1 ALP 98 U/L 35-130 ALT 31 U/L 6-45 Anion Gap 11 6-14 AST 22 U/L 2-40 BUN 16 mg/dL 5-25 Calcium 9.4 mg/dL 8.3-10.4 Chloride 111 mmol/L 95-114 CO2 23 mEq/L 22-33 Creat 0.96 mg/dL 0.50-1.50 eGFR 63 mL/min/1.73m2 >59 Globulin 3.7 g/dL 2.3-3.5 Glucose 94 mg/dL 70-110 Osmo 290 280-295 Potassium 4.8 mmol/L 3.5-5.3 Sodium 140 mmol/L 134-148 TBil 0.6 mg/dL 0.2-1.2 TP 7.8 g/dL 6.0-8.3 Encounters ACCT No. Visit Date/Time Discharge Status Pt. Type Provider Facility Loc./Unit Complaint [id number] 11/13/2018 16:17:00 Document Registration [id number] 02/19/2015 07:48:00 02/19/2015 23:59: 59 CLS Outpatient SARAI AVILA APRN [id number] 02/12/2015 09:13:00 02/12/2015 23:59: 59 CLS Outpatient SARAI AVILA APRN [id number] 02/06/2015 00:00:00 02/06/2015 23:59: 59 CLS Outpatient CAROLINA EID RN [id number] 01/16/2015 00:00:00 01/16/2015 23:59: 59 CLS Outpatient CAROLINA EID RN [id number] 12/06/2014 08:45:00 12/06/2014 23:59: 59 CLS Outpatient MADL [facility] [employer] SETTERJIH[facility]ARAI L [id number] 11/16/2014 09:46:00 11/16/2014 23:59: 59 CLS Outpatient CARLITO KHALIL DOSera Espinal [id number] 11/13/2014 12:57:00 11/13/2014 23:59: 59 CLS Outpatient [facility], SARAI L [id number] 11/05/2014 08:04:00 11/05/2014 23:59: 59 CLS Outpatient [facility], SARAI L [id number] 10/30/2014 10:45:00 10/30/2014 23:59: 59 CLS Outpatient [facility], SARAI L [id number] 10/18/2014 14:25:00 10/18/2014 23:59: 59 CLS Outpatient [facility], SARAI L [id number] 10/16/2014 00:00:00 10/16/2014 23:59: 59 CLS Outpatient [facility], SARAI L [id number] 10/08/2014 08:52:00 10/08/2014 23:59: 59 CLS Outpatient [facility], SARAI L [id number] 09/25/2014 14:46:00 09/25/2014 23:59: 59 CLS Outpatient CHAU OATES APRNINA R [id number] 09/25/2014 14:46:00 09/25/2014 23:59: 59 CLS Outpatient ИВАН PR[employer] TOOL SETTERMARVIN Mckay R [id number] 09/10/2014 15:15:00 09/10/2014 23:59: 59 CLS Outpatient [employer], SARAI L [id number] 09/03/2014 13:41:00 09/03/2014 23:59: 59 CLS Outpatient FILI SEWELL APRN [id number] 08/28/2014 10:14:00 08/28/2014 23:59: 59 CLS Outpatient KHALIL DO SAAD Espinal [id number] 08/23/2014 09:52:00 08/23/2014 23:59: 59 CLS Outpatient [employer], SARAI L [id number] 08/13/2014 14:57:00 08/13/2014 23:59: 59 CLS Outpatient FILI SEWELL APRN [id number] 08/06/2014 11:33:00 08/06/2014 23:59: 59 CLS Outpatient LOLI BARRETT MD [id number] 07/17/2014 08:48:00 07/17/2014 23:59: 59 CLS Outpatient [employer], SARAI L [id number] 07/03/2014 09:16:00 07/03/2014 23:59: 59 CLS Outpatient [employer], SARAI L [id number] 06/27/2014 10:20:00 06/27/2014 23:59: 59 CLS Outpatient M[employer], SARAI L [id number] 06/26/2014 10:14:00 06/26/2014 23:59: 59 CLS Outpatient [employer], SARAI L [id number] 06/19/2014 14:07:00 06/19/2014 23:59: 59 CLS Outpatient [employer], SARAI L [id number] 06/04/2014 13:03:00 06/04/2014 23:59: 59 CLS Outpatient [employer], SARAI L [id number] 04/21/2020 15:56:00 04/21/2020 23:59 :00 DIS Outpatient Lynsey Sexton [id number] 04/11/2020 13:48:00 04/11/2020 23:59 :00 DIS Outpatient Lynsey Sexton [id number] 03/28/2020 13:30:00 03/28/2020 23:59 :00 DIS Outpatient Lynsey Sexton [id number] 03/10/2020 16:06:00 03/10/2020 23:59 :00 DIS Outpatient Lynsey Sexton [id number] 12/20/2019 17:52:00 12/20/2019 23:59 :00 DIS Outpatient LIYA ARVIZU [id number] 12/07/2019 08:15:00 12/07/2019 23:59 :00 DIS Outpatient Lynsey Sexton [id number] 11/26/2019 16:12:00 11/26/2019 23:59 :00 DIS Outpatient Lynsey Sexton [id number] 10/30/2019 10:27:00 10/30/2019 12:23 :00 DIS Outpatient JORDYN ORTIZ APRN [facility] [id number] 10/29/2019 09:30:00 10/29/2019 23:59 :00 DIS Outpatient LIYA ARVIZU [id number] 10/25/2019 14:23:00 10/25/2019 23:59 :00 DIS Outpatient LIYA ARVIZU [id number] 10/24/2019 00:00:00 10/24/2019 23:59 :00 DIS Outpatient LIYA ARVIZU [id number] 09/13/2019 10:30:00 09/13/2019 23:59: 00 DIS Outpatient LIYA ARVIZU [id number] 08/21/2019 00:00:00 08/22/2019 12:20: 00 DIS Outpatient Espinoza [facility] MED-SURG [id number] 08/15/2019 09:10:00 08/15/2019 23:59: 00 DIS Outpatient Jermaine Doran [id number] 07/31/2019 15:47:00 07/31/2019 23:59: 00 DIS Outpatient Lynsey Sexton [id number] 07/30/2019 16:00:00 07/30/2019 23:59: 00 DIS Outpatient Lynsey Sexton [id number] 07/11/2019 00:00:00 07/11/2019 09:16: 00 DIS Outpatient Jermaine Doran [id number] 06/19/2019 15:30:00 06/19/2019 23:59: 00 DIS Outpatient LIYA ARVIZU [id number] 11/06/2018 14:47:00 11/06/2018 23:59: 00 DIS Outpatient LIYA ARVIZU [id number]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
[2020-05-03] MEDS ORDERED: ONDANSETRON 4 MG (ZOFRAN) ORAL DISSOLVE TAB SL STA (14:50)
[2020-05-03] MEDS ORDERED: ANTACID SUSP 30 ML UDC (MYLANTA) PO ONE (15:00)
[2020-05-03] MEDS ORDERED: LIDOCAINE 2% VISCOUS 15 ML UDC PO ONE (15:00)
[2020-05-03 15:02] LABS: BILIRUBIN,URINE NEGATIVE (NEGATIVE); CLARITY,URINE CLEAR; COLOR,URINE YELLOW; GLUCOSE, URINE (UA) NEGATIVE (NEGATIVE); KETONES,URINE NEGATIVE (NEGATIVE); LEUKOCYTE ESTERASE ,URINE 2+ (NEGATIVE); NITRITE,URINE NEGATIVE (NEGATIVE); PH,URINE 6.5 (5-9); PROTEIN,URINE NEGATIVE (NEGATIVE)
[2020-05-03 15:09] LABS: RBC,URINE 0-2 /HPF
[2020-05-03 15:10] LABS: BACTERIA,URINE FEW /HPF
--- NOTE | 2020-05-03 15:41 | Diagnostic Imaging Report ---
INDICATION: Diffuse abdominal pain and bloating. COMPARISON: None. EXAMINATION: KUB and upright views of the abdomen. FINDINGS: Moderate distention of multiple small bowel loops, centrally. There is mild constipation. There is no free air. Cholecystectomy clips are present. IMPRESSION: Moderate small bowel obstruction. No free air identified. Dictated by: Dictated on workstation # [id number]
--- NOTE | 2020-05-03 16:07 | ED Abdominal Pain ---
General Chief Complaint: Abdominal/GI Problems Stated Complaint: ABD PAIN Nursing Triage Note: Patient reports diffused abdomen pain with bloating. states was evaluated this week by someone and given medication for constipation, reports she has had bowel movements but does not feel she has gotten better Sepsis Screen: No Definite Risk Source of Information: Patient Exam Limitations: No Limitations History of Present Illness Date Seen by Provider: May 03, 2020 Allergies and Home Medications Allergies Coded Allergies: Sulfa (Sulfonamide Antibiotics) (Unverified Allergy, Unknown, 06/06/16) baclofen (Verified Allergy, Unknown, 05/01/18) codeine (Unverified Allergy, Unknown, 05/27/14) cyclobenzaprine (Unverified Allergy, Unknown, 02/10/15) influenza virus vaccine, specific (Unverified Allergy, Unknown, 05/27/14) iodine (Unverified Allergy, Unknown, 05/27/14) Home Medications Buspirone HCl 10 Mg Tablet, 10 MG PO TID, (Reported) Cefaclor 250 Mg Capsule, 250 MG PO DAILY, (Reported) Dicyclomine HCl 10 Mg Capsule, 10 MG PO Q6H Prescribed by: YUMIKO HUNTER on 02/11/19 0001 Doxycycline Hyclate 100 Mg Tablet, 100 MG PO BID , Prescribed by: AARON PERKINS on 07/23/19 1433 Escitalopram Oxalate 10 Mg Tablet, 10 MG PO DAILY, (Reported) Mupirocin 1 Gm Oin.pf.mar[place], 1 GM NA BID Prescribed by: YUMIKO HUNTER on 11/18/19 0822 Mycophenolate Mofetil 500 Mg Tablet, 750 MG PO BID, (Reported) TAKES 1 & 1/2 (500MG) TABLET Ondansetron HCl 8 Mg Tablet, 8 MG PO TID, (Reported) Pantoprazole Sodium 40 Mg Tablet.dr, 40 MG PO DAILY Prescribed by: NISH CASTILLO on 07/29/19 1554 Polyethylene Glycol 3350 119 Gm Powder, 17 GM PO Q6H PRN for CONSTIPATION-1ST LINE Prescribed by: NISH CASTILLO on 05/03/20 1750 Past Xsedqhg-Yzwnca-[place] Hx Past Med/Social Hx: Reviewed Nursing Past Med/Soc Hx Patient Social History Alcohol Use: Denies Use Recreational Drug Use: No 2nd Hand Smoke Exposure: No Recent Foreign Travel: No Contact w/Someone Who Travel: No Recent Infectious Disease Expo: No Recent Hopitalizations: No Immunizations Up To Date Tetanus Booster (TDap): Unknown PED Vaccines UTD: Yes Seasonal Allergies Seasonal Allergies: Yes Past Medical History Surgeries: Yes (HIATAL HERNIA REPAIR; RENAL TRANSPLANT 2005; ) Abdominal, Arteriovenous Shunt, Dialysis, Kidney Transplant, Parathyroidectomy, Vascular Surgery Respiratory: Yes Asthma, Chronic Bronchitis Cardiac: Yes High Cholesterol Neurological: No 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 Disorders: No 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 Disorders: Denies 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 Sexually Transmitted Disease: No HIV/AIDS: No Genitourinary: Yes (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") Renal Failure, Dialysis, UTI-Chronic Gastrointestinal: Yes (HIATAL HERNIA REPAIR X 2; CHRONIC ABDOMINAL PAIN ) Gastroesophageal Reflux, Hiatal Hernia, Ulcer Musculoskeletal: Yes (CHRONIC KNEE PAIN ) Degenerate Disk Disease, Arthritis, Scoliosis, Chronic Back Pain Endocrine: Yes (LABILE BLOOD GLUCOSE) Parathyroid Disease, Hypothyroidsim HEENT: No Cancer: No Psychosocial: Yes Anxiety, Depression Integumentary: No Blood Disorders: No Adverse Reaction/Blood Tranf: No Family Medical History Cancer aunt grandfather (Hodgkin's) Chest pain 19 FATHER Family history: Allergy 19 FATHER 19 MOTHER (hay fever) G8 BROTHER (hay fever) G8 SISTER (hay fever) Family history: Breast disease G8 SISTER aunt Family history: Diabetes mellitus 19 FATHER Family history: Gastrointestinal disease 19 FATHER (Hernia) G8 BROTHER (crohn's) Hearing loss 19 FATHER Thyroid disease 19 MOTHER No Family History of: Abdominal aortic aneurysm Redwood's disease Alcoholism Aphasia Cancer of colon Congenital heart disease Congestive heart failure Cystic fibrosis Dementia Dysphagia Family history: Alzheimer's disease Family history: Arthritis Family history: Asthma Family history: Cardiovascular disease Family history: Coronary thrombosis Family history: Glaucoma Family history: Hypertension Family history: Osteoporosis Family history: Thyroid disorder Headache Heart disease Hereditary disease History of - anemia History of - disorder History of - respiratory disease History of drug abuse Human immunodeficiency virus (HIV) seropositivity Hypercholesterolemia Infertile Kidney disease Malignant neoplasm of lung Myocardial infarction Parkinson's disease Prostate cancer Psychotic disorder Seizure disorder Stroke Tuberculosis Visual impairment Heart Disease Physical Exam Vital Signs Vital Signs - First Documented 05/03/20 14:34 Temp 36.8 Pulse 89 Resp 18 B/P (MAP) 109/86 (94) Pulse Ox 98 Capillary Refill : Less Than 3 Seconds Height/Weight/BMI Height: 5'7.00" Weight: 240lbs. 0oz. 108.504942us; 39.00 BMI Method:Stated Progress/Results/Core Measures Results/Orders Lab Results Laboratory Tests Test 05/03/20 14:18 05/03/20 14:32 05/03/20 16:15 Range/Units Lab Scanned Report Referred Lab Report [id number] Urine Color YELLOW Urine Clarity CLEAR Urine pH 6.5 5-9 Urine Specific [place] 1.020 1.016-1.022 Urine Protein NEGATIVE NEGATIVE Urine Glucose (UA) NEGATIVE NEGATIVE Urine Ketones NEGATIVE NEGATIVE Urine Nitrite NEGATIVE NEGATIVE Urine Bilirubin NEGATIVE NEGATIVE Urine Urobilinogen 0.2 < = 1.0 MG/DL Urine Leukocyte Esterase 2+ H NEGATIVE Urine RBC (Auto) NEGATIVE NEGATIVE Urine RBC 0-2 /HPF Urine WBC 10-25 H /HPF Urine Squamous Epithelial Cells 2-5 /HPF Urine Crystals NONE /LPF Urine Bacteria FEW H /HPF Urine Casts NONE /LPF Urine Mucus NEGATIVE /LPF Urine Culture Indicated YES White Blood Count 9.4 4.3-11.0 10^3/uL Red Blood Count 5.36 4.35-5.85 10^6/uL Hemoglobin 14.6 11.5-16.0 G/DL Hematocrit 46 35-52 % Mean Corpuscular Volume 85 80-99 FL Mean Corpuscular Hemoglobin 27 25-34 PG Mean Corpuscular Hemoglobin Concent 32 32-36 G/DL Red Cell Distribution Width 13.5 10.0-14.5 % Platelet Count 282 130-400 10^3/uL Mean Platelet Volume 9.4 7.4-10.4 FL Neutrophils (%) (Auto) 63 42-75 % Lymphocytes (%) (Auto) 28 12-44 % Monocytes (%) (Auto) 8 0-12 % Eosinophils (%) (Auto) 1 0-10 % Basophils (%) (Auto) 0 0-10 % Neutrophils # (Auto) 5.9 1.8-7.8 X 10^3 Lymphocytes # (Auto) 2.7 1.0-4.0 X 10^3 Monocytes # (Auto) 0.8 0.0-1.0 X 10^3 Eosinophils # (Auto) 0.1 0.0-0.3 10^3/uL Basophils # (Auto) 0.0 0.0-0.1 10^3/uL Sodium Level 138 135-145 MMOL/L Potassium Level 4.9 3.6-5.0 MMOL/L Chloride Level 111 H 98-107 MMOL/L Carbon Dioxide Level 13 L 21-32 MMOL/L Anion Gap 14 5-14 MMOL/L Blood Urea Nitrogen 15 7-18 MG/DL Creatinine 0.93 0.60-1.30 MG/DL Estimat Glomerular Filtration Rate > 60 BUN/Creatinine Ratio 16 Glucose Level 101 70-105 MG/DL Calcium Level 9.2 8.5-10.1 MG/DL Corrected Calcium 9.0 8.5-10.1 MG/DL Total Bilirubin 0.4 0.1-1.0 MG/DL Aspartate Amino Transf (AST/SGOT) 27 5-34 U/L Alanine Aminotransferase (ALT/SGPT) 28 0-55 U/L Alkaline Phosphatase 90 40-136 U/L Total Protein 7.9 6.4-8.2 GM/DL Albumin 4.3 3.2-4.5 GM/DL Lipase 34 8-78 U/L Micro Results Microbiology 05/03/20 Urine Culture - Final, Complete 3 or more isolates My Orders Orders - NISH DAVALOS MD Ua Culture If Indicated (05/03/20 14:20) Ondansetron Oral Dissolve Tab (Zofran (05/03/20 14:50) Lidocaine 2% Viscous 15 Ml (Xylocaine Vi (05/03/20 15:00) Antacid Suspension (Mylanta Suspension (05/03/20 15:00) Urine Culture (05/03/20 14:32) Abdomen, Flat & Upright/Decub (05/03/20 15:15) Cbc With Automated Diff (05/03/20 16:04) Comprehensive Metabolic Panel (05/03/20 16:04) Lipase (05/03/20 16:04) Ct Abdomen/Pelvis Wo (05/03/20 16:10) Medications Given in ED Vital Signs/I&O 05/03/20 05/03/20 14:34 17:57 Temp 36.8 36.8 Pulse 89 89 Resp 18 18 B/P (MAP) 109/86 (94) 109/86 (94) Pulse Ox 98 98 Blood Pressure Mean: 94 Progress Progress Note : Progress Note Symptoms did not improve with a GI cocktail and Zofran. Further evaluation was then obtained with x-ray which suggested small bowel obstruction. I discussed with Dr. Yap. He recommended getting labs and CT with contrast. However, patient cannot take contrast due to topical iodine allergy and history of renal transplant. Noncontrast CT suggested early small bowel obstruction versus ileus. Since patient has not been vomiting and had a normal bowel movement as recently as this morning, bowel obstruction is less likely. Dr. Yap rec ommends 3 days of clear liquid diet. Patient is agreeable to this and wants to go home. We discussed changing her medications as a listed side effect of Trulance is a GI obstruction. Patient is going to try going back to MiraLAX as she did not ever have problems using it in the past. She was advised to follow up promptly with Dr. Landrum. Diagnostic Imaging Diagonstic Imaging: Xray Plain Films/CT/US/NM/MRI: abdomen, pelvis Comments Abdominal x-rays viewed by me and report reviewed. See report below: NAME: [facility] REC#: [id number] PT STATUS: REG ER : 1975 PHYSICIAN: NISH DAVALOS MD ADMIT DATE: 05/03/20/ER Signed Date of Exam:05/03/20 ABDOMEN, FLAT & UPRIGHT/DECUB INDICATION: Diffuse abdominal pain and bloating. COMPARISON: None. EXAMINATION: KUB and upright views of the abdomen. FINDINGS: Moderate distention of multiple small bowel loops, centrally. There is mild constipation. There is no free air. Cholecystectomy clips are present. IMPRESSION: Moderate small bowel obstruction. No free air identified. Dictated by: Dictated on workstation # [id number] Dict: 05/03/20 1537 Trans: 05/03/20 1545 [facility] [id number] Interpreted by: LYLE MORATAYA Electronically signed by: LYLE MORATAYA 05/03/20 1545 Diagonstic Imaging: CT Plain Films/CT/US/NM/MRI: abdomen, pelvis Comments NAME: [facility] REC#: [id number] PT STATUS: REG ER : 1975 PHYSICIAN: NISH DAVALOS MD ADMIT DATE: 05/03/20/ER Signed Date of Exam:05/03/20 CT ABDOMEN/PELVIS WO PROCEDURE: CT abdomen and pelvis without contrast. TECHNIQUE: Multiple contiguous axial images were obtained through the abdomen and pelvis without the use of intravenous contrast. Auto Exposure Controls were utilized during the CT exam to meet ALARA standards for radiation dose reduction. INDICATION: Abdominal pain and bloating. COMPARISON: 06/28/2019. FINDINGS: The lung bases are clear. There is a stable hiatal hernia without overt obstruction. There is no free air or free fluid. There are a few prominent small bowel loops, centrally, which could represent early obstruction or ileus. The colon is unremarkable. There is no inflammatory change. Mild constipation is present. The [place] kidneys are atrophied. There is a transplant kidney in the right lower quadrant which appears unremarkable. There is no perinephric fluid collection. The gallbladder is surgically absent. The solid organs are otherwise unremarkable. Urinary bladder is normal. Osseous structures are age appropriate. IMPRESSION: 1. Stable hiatal hernia without obstruction. 2. Prominent central small bowel loops which may represent early obstruction versus ileus. Follow-up recommended. 3. Constipation. 4. Unremarkable appearing transplant kidney in right lower quadrant. 5. Surgically absent gallbladder. Dictated by: Dictated on workstation # [id number] Dict: 05/03/20 1635 Trans: 05/03/20 1643 [facility] [id number] Interpreted by: LYLE MORATAYA Electronically signed by: LYLE MORATAYA 05/03/20 1643 Departure Impression Primary Impression: Constipation Qualified Codes: K59.00 - Constipation, unspecified Additional Impressions: Ileus Urinary tract infection Qualified Codes: N39.0 - Urinary tract infection, site not specified Disposition: 01 HOME, SELF-CARE Condition: Improved Departure-Patient Inst. Decision time for Depature: 17:43 Referrals: LIYA ARVIZU MD (PCP/Family) Primary Care Physician Patient Instructions: Clear Liquid Diet, Constipation in Adults Add. Discharge Instructions: Observe a clear liquid diet for the next 3 days. Stop Trulance and resume MiraLAX up to 4 doses a day until your constipation clears. Contact Dr. Landrum on Tuesday to discuss further treatment. Return to the emergency room if you develop worsening symptoms or new symptoms such as fever or vomiting. You may take Tylenol for pain. All discharge instructions reviewed with patient and/or family. Voiced understan mirian. Scripts Polyethylene Glycol 3350 (Miralax) 119 Gm Powder 17 GM PO Q6H PRN for CONSTIPATION-1ST LINE, #1 EA Prov: NISH DAVALOS MD 05/03/20 NISH DAVALOS MD May 03, 2020 16:07
[2020-05-03 16:27] LABS: BASOPHILS % (AUTO) 0 % (0-10); EOSINOPHILS # (AUTO) 0.1 10^3/uL (0.0-0.3); EOSINOPHILS % (AUTO) 1 % (0-10); HEMATOCRIT 46 % (35-52); HEMOGLOBIN 14.6 G/DL (11.5-16.0); LYMPHOCYTES # (AUTO) 2.7 X 10^3 (1.0-4.0); LYMPHOCYTES % (AUTO) 28 % (12-44); MEAN CORPUSCULAR HEMOGLOBIN 27 PG (25-34); MEAN CORPUSCULAR HGB CONC 32 G/DL (32-36); MEAN CORPUSCULAR VOLUME 85 FL (80-99); MEAN PLATELET VOLUME 9.4 FL (7.4-10.4); MONOCYTES # (AUTO) 0.8 X 10^3 (0.0-1.0); MONOCYTES % (AUTO) 8 % (0-12); NEUTROPHILS # (AUTO) 5.9 X 10^3 (1.8-7.8); NEUTROPHILS % (AUTO) 63 % (42-75); PLATELET COUNT 282 10^3/uL (130-400); RED CELL DISTRIBUTION WIDTH 13.5 % (10.0-14.5); WHITE BLOOD COUNT 9.4 10^3/uL (4.3-11.0)
--- NOTE | 2020-05-03 16:43 | Diagnostic Imaging Report ---
PROCEDURE: CT abdomen and pelvis without contrast. TECHNIQUE: Multiple contiguous axial images were obtained through the abdomen and pelvis without the use of intravenous contrast. Auto Exposure Controls were utilized during the CT exam to meet ALARA standards for radiation dose reduction. INDICATION: Abdominal pain and bloating. COMPARISON: 06/28/2019. FINDINGS: The lung bases are clear. There is a stable hiatal hernia without overt obstruction. There is no free air or free fluid. There are a few prominent small bowel loops, centrally, which could represent early obstruction or ileus. The colon is unremarkable. There is no inflammatory change. Mild constipation is present. The [place] kidneys are atrophied. There is a transplant kidney in the right lower quadrant which appears unremarkable. There is no perinephric fluid collection. The gallbladder is surgically absent. The solid organs are otherwise unremarkable. Urinary bladder is normal. Osseous structures are age appropriate. IMPRESSION: 1. Stable hiatal hernia without obstruction. 2. Prominent central small bowel loops which may represent early obstruction versus ileus. Follow-up recommended. 3. Constipation. 4. Unremarkable appearing transplant kidney in right lower quadrant. 5. Surgically absent gallbladder. Dictated by: Dictated on workstation # [id number]
[2020-05-03 16:45] LABS: ALBUMIN 4.3 GM/DL (3.2-4.5)
[2020-05-03 16:46] LABS: CHLORIDE 111 MMOL/L (98-107); POTASSIUM 4.9 MMOL/L (3.6-5.0); SODIUM 138 MMOL/L (135-145)
[2020-05-03 16:47] LABS: CALCIUM 9.2 MG/DL (8.5-10.1)
[2020-05-03 16:48] LABS: GLUCOSE 101 MG/DL (70-105); TOTAL PROTEIN 7.9 GM/DL (6.4-8.2)
[2020-05-03 16:49] LABS: CARBON DIOXIDE 13 MMOL/L (21-32)
[2020-05-03 16:50] LABS: BILIRUBIN,TOTAL 0.4 MG/DL (0.1-1.0)
[2020-05-03 16:51] LABS: ALKALINE PHOSPHATASE 90 U/L (40-136)
[2020-05-03 16:52] LABS: CREATININE SERUM 0.93 MG/DL (0.60-1.30); GFR ESTIMATED > 60
[2020-05-03 16:53] LABS: BUN/CREATININE RATIO 16
[2020-05-03 16:55] LABS: ALANINE AMINOTRANSFERASE 28 U/L (0-55); LIPASE 34 U/L (8-78)
[2020-05-03] MEDS ORDERED: POLY119P5 PO (17:50)
[2020-05-03 17:57] VITALS: BP 109/86
== END 2020-05-03 17:57 | disposition home or self-care (01) ==
LOC: EDUNIT# 14:17 → ER 14:18
DX: K59.00 Constipation, unspecified (principal); K56.7 Ileus, unspecified; N39.0 Urinary tract infection, site not specified; F41.9 Anxiety disorder, unspecified; F32.9 Major depressive disorder, single episode, unspecified; Z88.2 Allergy status to sulfonamides; Z88.8 Allergy status to other drugs, medicaments and biological substances; Z88.5 Allergy status to narcotic agent; Z88.7 Allergy status to serum and vaccine; Z94.0 Kidney transplant status; Z80.7 Family history of other malignant neoplasms of lymphoid, hematopoietic and related tissues; Z99.2 Dependence on renal dialysis
CPT/HCPCS: 36415; 74019; 74176; 80053; 81000; 83690; 85025; 87088

== ENCOUNTER 2020-06-26 16:21 | Emergency (ER) | payer MEDICAID ==
[~2020-06-26] VITALS: Ht 170 cm; Wt 111.5 kg
[~2020-06-26 16:21] MED LIST changes: +POLY119P5 PO
[2020-06-26 17:00] LABS: BILIRUBIN,URINE NEGATIVE (NEGATIVE); CLARITY,URINE SL CLOUDY; COLOR,URINE YELLOW; GLUCOSE, URINE (UA) NEGATIVE (NEGATIVE); KETONES,URINE NEGATIVE (NEGATIVE); LEUKOCYTE ESTERASE ,URINE 1+ (NEGATIVE); NITRITE,URINE NEGATIVE (NEGATIVE); PROTEIN,URINE NEGATIVE (NEGATIVE)
[2020-06-26 17:07] LABS: AMORPHOUS SEDIMENT,UR FEW AMOR PHOSPHATE /LPF; BACTERIA,URINE FEW /HPF
[2020-06-26 17:15] LABS: AMPHETAMINE SCREEN, URINE NEGATIVE (NEGATIVE); BARBITURATE SCREEN URINE NEGATIVE (NEGATIVE); BENZODIAZEPINES SCREEN URINE NEGATIVE (NEGATIVE); CANNABINOID SCREEN, URINE NEGATIVE (NEGATIVE); COCAINE SCREEN URINE NEGATIVE (NEGATIVE); HCG,QUALITATIVE URINE NEGATIVE (NEGATIVE); METHADONE STAT NEGATIVE (NEGATIVE); METHAMPHETAMINE SCREEN URINE S NEGATIVE (NEGATIVE); OPIATE SCREEN URINE NEGATIVE (NEGATIVE); OXYCODONE STAT NEGATIVE (NEGATIVE); PROPOXYPHENE STAT NEGATIVE (NEGATIVE); TRICYCLIC ANTIDEPRESSANTS SCRE NEGATIVE (NEGATIVE)
[2020-06-26 17:41] LABS: WHITE BLOOD COUNT 9.4 10^3/uL (4.3-11.0)
[2020-06-26 17:42] LABS: BASOPHILS % (AUTO) 0 % (0-10); EOSINOPHILS # (AUTO) 0.1 10^3/uL (0.0-0.3); EOSINOPHILS % (AUTO) 1 % (0-10); HEMATOCRIT 44 % (35-52); HEMOGLOBIN 14.1 G/DL (11.5-16.0); LYMPHOCYTES # (AUTO) 3.1 X 10^3 (1.0-4.0); LYMPHOCYTES % (AUTO) 33 % (12-44); MEAN CORPUSCULAR HEMOGLOBIN 28 PG (25-34); MEAN CORPUSCULAR HGB CONC 32 G/DL (32-36); MEAN CORPUSCULAR VOLUME 86 FL (80-99); MEAN PLATELET VOLUME 9.3 FL (7.4-10.4); MONOCYTES # (AUTO) 0.7 X 10^3 (0.0-1.0); MONOCYTES % (AUTO) 8 % (0-12); NEUTROPHILS # (AUTO) 5.4 X 10^3 (1.8-7.8); NEUTROPHILS % (AUTO) 58 % (42-75); PLATELET COUNT 300 10^3/uL (130-400); RED CELL DISTRIBUTION WIDTH 13.7 % (10.0-14.5)
--- NOTE | 2020-06-26 17:50 | ED Psychosocial ---
General Chief Complaint: Psych/Social Disorder Stated Complaint: SUICIDAL IDEATIONS Nursing Triage Note: Pt states, "Something is wrong. I'm not all there. I want to hurt myself. I've been feeling this way for awhile." Pt reports feelings have worsened today. Pt reports plan would be to take all of medications at once. Pt reports attempt to cut wrist in the past. Pt states, "People are telling lies about me and I just don't feel myself anymore." Pt makes verbal promise to not harm self while in the care of the ED. Source: patient Exam Limitations: no limitations History of Present Illness Date Seen by Provider: Jun 26, 2020 Time Seen by Provider: 16:50 Initial Comments 44-year-old female who presents to the emergency room with complaints of suicidal ideation, thoughts of hurting herself, and states that "something is wrong, I'm not all there". She reports that she's been having these thoughts for a while. She reports that she has not had mental health services for the past 3 years. She does report suicide attempt in the past by cutting her wrist. She re ports that her plan would be to take all of her medication at once. She has history of kidney transplant. When questioned why she has a sudden change of thought she reports that her family members are telling lies about her and she does not feel herself anymore. Timing/Duration: just prior to arrival Associated Symptoms: suicidal ideation Allergies and Home Medications Allergies Coded Allergies: Sulfa (Sulfonamide Antibiotics) (Unverified Allergy, Unknown, 06/06/16) baclofen (Verified Allergy, Unknown, 05/01/18) codeine (Unverified Allergy, Unknown, 05/27/14) cyclobenzaprine (Unverified Allergy, Unknown, 02/10/15) influenza virus vaccine, specific (Unverified Allergy, Unknown, 05/27/14) iodine (Unverified Allergy, Unknown, 05/27/14) Home Medications Buspirone HCl 10 Mg Tablet, 10 MG PO TID, (Reported) Cefaclor 250 Mg Capsule, 250 MG PO DAILY, (Reported) Dicyclomine HCl 10 Mg Capsule, 10 MG PO Q6H Prescribed by: YUMIKO HUNTER on 02/11/19 0001 Doxycycline Hyclate 100 Mg Tablet, 100 MG PO BID , Prescribed by: AARON PERKINS on 07/23/19 1433 Escitalopram Oxalate 10 Mg Tablet, 10 MG PO DAILY, (Reported) Mupirocin 1 Gm Oin.pf.mariposa, 1 GM NA BID Prescribed by: YUMIKO HUNTER on 11/18/19 0822 Mycophenolate Mofetil 500 Mg Tablet, 750 MG PO BID, (Reported) TAKES 1 & 1/2 (500MG) TABLET Ondansetron HCl 8 Mg Tablet, 8 MG PO TID, (Reported) Pantoprazole Sodium 40 Mg Tablet.dr, 40 MG PO DAILY Prescribed by: NISH CASTILLO on 07/29/19 1554 Polyethylene Glycol 3350 119 Gm Powder, 17 GM PO Q6H PRN for CONSTIPATION-1ST LINE Prescribed by: NISH CASTILLO on 05/03/20 1750 Patient Home Medication List Home Medication List Reviewed: Yes Review of Systems Constitutional: see HPI; No chills, No fever Psychiatric/Neurological: See HPI, Emotional Problems All Other Systems Reviewed Negative Unless Noted: Yes Past Vvzbyvy-Ckalpr-Gjxfsl Hx Past Med/Social Hx: Reviewed Nursing Past Med/Soc Hx Patient Social History Alcohol Use: Denies Use Recreational Drug Use: No 2nd Hand Smoke Exposure: No Recent Foreign Travel: No Contact w/Someone Who Travel: No Recent Infectious Disease Expo: No Recent Hopitalizations: No Physical Abuse: No Sexual Abuse: No Mistreated: Yes (family) Immunizations Up To Date Tetanus Booster (TDap): Unknown PED Vaccines UTD: Yes Seasonal Allergies Seasonal Allergies: Yes Past Medical History Surgeries: Yes (HIATAL HERNIA REPAIR; RENAL TRANSPLANT 2005; ) Abdominal, Arteriovenous Shunt, Dialysis, Gallbladder, Kidney Transplant, Parathyroidectomy, Vascular Surgery Respiratory: Yes Asthma, Chronic Bronchitis Cardiac: Yes High Cholesterol Neurological: No 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 Disorders: No 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 Sexually Transmitted Disease: No HIV/AIDS: No Genitourinary: Yes (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") Renal Failure, Dialysis, UTI-Chronic Gastrointestinal: Yes (HIATAL HERNIA REPAIR X 2; CHRONIC ABDOMINAL PAIN ) Gastroesophageal Reflux, Hiatal Hernia, Ulcer Musculoskeletal: Yes (CHRONIC KNEE PAIN ) Degenerate Disk Disease, Arthritis, Scoliosis, Chronic Back Pain Endocrine: Yes (LABILE BLOOD GLUCOSE) Parathyroid Disease, Hypothyroidsim HEENT: No Cancer: No Psychosocial: Yes (anger issues) Anxiety, Depression Integumentary: No Blood Disorders: No Adverse Reaction/Blood Tranf: No Family Medical History Reviewed Nursing Family Hx Cancer aunt grandfather (Hodgkin's) Chest pain 19 FATHER Family history: Allergy 19 FATHER 19 MOTHER (hay fever) G8 BROTHER (hay fever) G8 SISTER (hay fever) Family history: Breast disease G8 SISTER aunt Family history: Diabetes mellitus 19 FATHER Family history: Gastrointestinal disease 19 FATHER (Hernia) G8 BROTHER (crohn's) Hearing loss 19 FATHER Thyroid disease 19 MOTHER No Family History of: Abdominal aortic aneurysm [place]'s disease Alcoholism Aphasia Cancer of colon Congenital heart disease Congestive heart failure Cystic fibrosis Dementia Dysphagia Family history: Alzheimer's disease Family history: Arthritis Family history: Asthma Family history: Cardiovascular disease Family history: Coronary thrombosis Family history: Glaucoma Family history: Hypertension Family history: Osteoporosis Family history: Thyroid disorder Headache Heart disease Hereditary disease History of - anemia History of - disorder History of - respiratory disease History of drug abuse Human immunodeficiency virus (HIV) seropositivity Hypercholesterolemia Infertile Kidney disease Malignant neoplasm of lung Myocardial infarction Parkinson's disease Prostate cancer Psychotic disorder Seizure disorder Stroke Tuberculosis Visual impairment Heart Disease Physical Exam Vital Signs - First Documented 06/26/20 16:45 Temp 36.1 Pulse 79 Resp 24 B/P (MAP) 113/57 (75) Pulse Ox 94 O2 Delivery Room Air Capillary Refill : Less Than 3 Seconds Height, Weight, BMI Height: 5'7.00" Weight: 240lbs. 0oz. 108.982303pr; 38.00 BMI Method:Stated General Appearance: WD/WN, no apparent distress Respiratory: chest non-tender, lungs clear, normal breath sounds, no respiratory distress, no accessory muscle use, respiratory distress Cardiovascular: normal peripheral pulses, regular rate, rhythm, no edema, no gallop, no JVD, no murmur Gastrointestinal: normal bowel sounds, non tender, soft, no organomegaly, no pulsatile mass Extremities: normal capillary refill Neurologic/Psychiatric: alert, normal mood/affect, oriented x 3 Appearance/Memory: appropriate appearance, appropriate insight, neat, no memory impairment Behavior/Eye Contact: cooperative, good eye contact, normal speech Thoughts/Hallucinations: normal thought pattern, no apparent hallucination Skin: normal color, warm/dry Progress/Results/Core Measures Results/Orders Lab Results Laboratory Tests Test 06/26/20 16:45 06/26/20 17:27 Range/Units Urine Color YELLOW Urine Clarity SL CLOUDY Urine pH 7.0 5-9 Urine Specific [place] 1.020 1.016-1.022 Urine Protein NEGATIVE NEGATIVE Urine Glucose (UA) NEGATIVE NEGATIVE Urine Ketones NEGATIVE NEGATIVE Urine Nitrite NEGATIVE NEGATIVE Urine Bilirubin NEGATIVE NEGATIVE Urine Urobilinogen 0.2 < = 1.0 MG/DL Urine Leukocyte Esterase 1+ H NEGATIVE Urine RBC (Auto) NEGATIVE NEGATIVE Urine RBC NONE /HPF Urine WBC 5-10 H /HPF Urine Squamous Epithelial Cells 5-10 /HPF Urine Crystals PRESENT H /LPF Urine Amorphous Sediment FEW ELVA PHOSPHATE H /LPF Urine Bacteria FEW H /HPF Urine Casts NONE /LPF Urine Mucus SMALL H /LPF Urine Culture Indicated YES Urine Test NEGATIVE NEGATIVE Urine Opiates Screen NEGATIVE NEGATIVE Urine Oxycodone Screen NEGATIVE NEGATIVE Urine Methadone Screen NEGATIVE NEGATIVE Urine Propoxyphene Screen NEGATIVE NEGATIVE Urine Barbiturates Screen NEGATIVE NEGATIVE Ur Tricyclic Antidepressants Screen NEGATIVE NEGATIVE Urine Phencyclidine Screen NEGATIVE NEGATIVE Urine Amphetamines Screen NEGATIVE NEGATIVE Urine Methamphetamines Screen NEGATIVE NEGATIVE Urine Benzodiazepines Screen NEGATIVE NEGATIVE Urine Cocaine Screen NEGATIVE NEGATIVE Urine Cannabinoids Screen NEGATIVE NEGATIVE White Blood Count 9.4 4.3-11.0 10^3/uL Red Blood Count 5.09 4.35-5.85 10^6/uL Hemoglobin 14.1 11.5-16.0 G/DL Hematocrit 44 35-52 % Mean Corpuscular Volume 86 80-99 FL Mean Corpuscular Hemoglobin 28 25-34 PG Mean Corpuscular Hemoglobin Concent 32 32-36 G/DL Red Cell Distribution Width 13.7 10.0-14.5 % Platelet Count 300 130-400 10^3/uL Mean Platelet Volume 9.3 7.4-10.4 FL Neutrophils (%) (Auto) 58 42-75 % Lymphocytes (%) (Auto) 33 12-44 % Monocytes (%) (Auto) 8 0-12 % Eosinophils (%) (Auto) 1 0-10 % Basophils (%) (Auto) 0 0-10 % Neutrophils # (Auto) 5.4 1.8-7.8 X 10^3 Lymphocytes # (Auto) 3.1 1.0-4.0 X 10^3 Monocytes # (Auto) 0.7 0.0-1.0 X 10^3 Eosinophils # (Auto) 0.1 0.0-0.3 10^3/uL Basophils # (Auto) 0.0 0.0-0.1 10^3/uL Sodium Level 140 135-145 MMOL/L Potassium Level 4.0 3.6-5.0 MMOL/L Chloride Level 108 H 98-107 MMOL/L Carbon Dioxide Level 25 21-32 MMOL/L Anion Gap 7 5-14 MMOL/L Blood Urea Nitrogen 19 H 7-18 MG/DL Creatinine 1.02 0.60-1.30 MG/DL Estimat Glomerular Filtration Rate 59 BUN/Creatinine Ratio 19 Glucose Level 102 70-105 MG/DL Calcium Level 9.4 8.5-10.1 MG/DL Corrected Calcium 9.5 8.5-10.1 MG/DL Total Bilirubin 0.3 0.1-1.0 MG/DL Aspartate Amino Transf (AST/SGOT) 14 5-34 U/L Alanine Aminotransferase (ALT/SGPT) 20 0-55 U/L Alkaline Phosphatase 81 40-136 U/L Total Protein 7.6 6.4-8.2 GM/DL Albumin 3.9 3.2-4.5 GM/DL Salicylates Level < 5.0 L 5.0-20.0 MG/DL Acetaminophen Level < 10 L 10-30 UG/ML Serum Alcohol < 10 <10 MG/DL My Orders Orders - AIME BUTTERFIELD Ua Culture If Indicated (06/26/20 16:36) Cbc With Automated Diff (06/26/20 16:36) Comprehensive Metabolic Panel (06/26/20 16:36) Alcohol (06/26/20 16:36) Drug Screen Stat (Urine) (06/26/20 16:36) Acetaminophen (06/26/20 16:36) Salicylate (06/26/20 16:36) Ekg Tracing (06/26/20 16:36) Hcg,Qualitative Urine (06/26/20 16:36) Ed Iv/Invasive Line Start (06/26/20 16:36) Monitor-Rhythm Ecg Trace Only (06/26/20 16:36) Urine Culture (06/26/20 16:45) Accucheck Stat ONCE (06/26/20 18:23) General/Regular (06/26/20 Dinner) Vital Signs/I&O 06/26/20 16:45 Temp 36.1 Pulse 79 Resp 24 B/P (MAP) 113/57 (75) Pulse Ox 94 O2 Delivery Room Air Blood Pressure Mean: 75 Departure Impression Primary Impression: Suicidal ideation Disposition: 65 XFER TO PSYCH HOSP/UNIT Condition: Stable/Unchanged Transfer Transfer Reason: Exceeds level of care Time Spoke to Accepting Phy: 19:36 Transfer Progress Notes I have seen and evaluated the patient. I've informed her of her laboratory findings. [facility] has accepted the patient will be transported by [facility]. I discussed the case with Dr. Ramírez and he has agreed to accept the patient at this time. Transfer Facility: [facility] Method of Transfer: Private Vehicle ([facility]S [facility]) Departure-Patient Inst. Referrals: LIYA ARVIZU MD (PCP/Family) Primary Care Physician AIME BUTTERFIELD Jun 26, 2020 17:50
[2020-06-26 17:55] LABS: ALANINE AMINOTRANSFERASE 20 U/L (0-55); ALBUMIN 3.9 GM/DL (3.2-4.5); ALKALINE PHOSPHATASE 81 U/L (40-136); BILIRUBIN,TOTAL 0.3 MG/DL (0.1-1.0); BUN/CREATININE RATIO 19; CALCIUM 9.4 MG/DL (8.5-10.1); CARBON DIOXIDE 25 MMOL/L (21-32); CHLORIDE 108 MMOL/L (98-107); CREATININE SERUM 1.02 MG/DL (0.60-1.30); GFR ESTIMATED 59; GLUCOSE 102 MG/DL (70-105); SALICYLATE < 5.0 MG/DL (5.0-20.0); SODIUM 140 MMOL/L (135-145); TOTAL PROTEIN 7.6 GM/DL (6.4-8.2)
[2020-06-26 18:19] LABS: ACETAMINOPHEN < 10 UG/ML (10-30)
--- NOTE | 2020-06-26 18:19 | NUR ---
AMB TO BATHROOM
--- NOTE | 2020-06-26 18:31 | NUR ---
Pt requested to have blood sugar checked and would like a meal tray. [facility] notified.
--- NOTE | 2020-06-26 18:40 | NUR ---
Nutritional services called for meal tray.
--- NOTE | 2020-06-26 18:53 | NUR ---
Pt taken meal tray at this time.
--- NOTE | 2020-06-26 18:57 | NUR ---
Report given to Davis to assume care of pt.
[2020-06-26 19:55] VITALS: BP 116/76
--- NOTE | 2020-06-26 20:47 | NUR ---
PT PICKED UP FOR TRANSFER BY [facility].
== END 2020-06-26 20:46 ==
LOC: EDUNIT# 16:21 → ER 16:25
DX: R45.851 Suicidal ideations (principal); K21.9 Gastro-esophageal reflux disease without esophagitis; N39.0 Urinary tract infection, site not specified; F32.9 Major depressive disorder, single episode, unspecified; F41.9 Anxiety disorder, unspecified; N19 Unspecified kidney failure; Z99.2 Dependence on renal dialysis; Z88.2 Allergy status to sulfonamides; Z88.5 Allergy status to narcotic agent; Z91.041 Radiographic dye allergy status; Z88.8 Allergy status to other drugs, medicaments and biological substances; Z88.7 Allergy status to serum and vaccine; Z80.7 Family history of other malignant neoplasms of lymphoid, hematopoietic and related tissues
CPT/HCPCS: 80053; 80306; 81000; 84703; 85025; 87088; 93041; G0480 ×3; 36415; 80320; 80329; 82962; 93005

== ENCOUNTER → 2020-07-17 | Outpatient (CLI) | payer MEDICAID ==
[2020-07-17 08:58] LABS: HEMOGLOBIN 14.4 G/DL (11.5-16.0); WHITE BLOOD COUNT 7.9 10^3/uL (4.3-11.0)
[2020-07-17 09:05] LABS: BILIRUBIN,URINE NEGATIVE (NEGATIVE); CLARITY,URINE CLEAR; COLOR,URINE YELLOW; GLUCOSE, URINE (UA) NEGATIVE (NEGATIVE); KETONES,URINE NEGATIVE (NEGATIVE); LEUKOCYTE ESTERASE ,URINE 1+ (NEGATIVE); NITRITE,URINE NEGATIVE (NEGATIVE); PROTEIN,URINE NEGATIVE (NEGATIVE)
[2020-07-17 09:16] LABS: BACTERIA,URINE TRACE /HPF
[2020-07-17 09:19] LABS: CALCIUM 9.7 MG/DL (8.5-10.1); CREATININE SERUM 1.01 MG/DL (0.60-1.30); PHOSPHORUS 3.6 MG/DL (2.3-4.7); POTASSIUM 4.6 MMOL/L (3.6-5.0)
[2020-07-17 22:32] LABS: FK506 2.9 ng/mL
== END ==
LOC: LAB 08:36
PROVIDERS: ATTEND Internal Medicine Nephrology
DX: N39.0 Urinary tract infection, site not specified (principal); D89.89 Other specified disorders involving the immune mechanism, not elsewhere classified; N25.81 Secondary hyperparathyroidism of renal origin; Z94.0 Kidney transplant status
CPT/HCPCS: 36415; 80069; 80197; 81000; 82306; 82570; 83970; 84156; 85027; 87088

== ENCOUNTER → 2020-08-12 | Outpatient (CLI) | payer MEDICAID ==
--- NOTE | 2020-08-12 13:43 | Diagnostic Imaging Report ---
INDICATION: Chest wall pain. TIME OF EXAM: 11:51 AM Comparison is made with prior chest from 07/29/2019. Heart size is stable. There is some minimal atelectasis or scarring left base. Right lung is clear. The pulmonary vascularity is normal. There is no effusion or pneumothorax. IMPRESSION: No acute cardiopulmonary processes detected. Dictated by: Dictated on workstation # [id number]
== END ==
LOC: RAD 11:41
PROVIDERS: ATTEND Nurse Practitioner Family
DX: R07.89 Other chest pain (principal)
CPT/HCPCS: 71046

== ENCOUNTER → 2020-09-24 | Outpatient (CLI) | payer MEDICAID ==
[2020-09-24 08:39] LABS: BASOPHILS % (AUTO) 0 % (0-10); EOSINOPHILS # (AUTO) 0.1 10^3/uL (0.0-0.3); EOSINOPHILS % (AUTO) 1 % (0-10); HEMATOCRIT 44 % (35-52); HEMOGLOBIN 13.8 g/dL (11.5-16.0); LYMPHOCYTES # (AUTO) 2.6 10^3/uL (1.0-4.0); LYMPHOCYTES % (AUTO) 28 % (12-44); MEAN CORPUSCULAR HEMOGLOBIN 28 pg (25-34); MEAN CORPUSCULAR HGB CONC 32 g/dL (32-36); MEAN CORPUSCULAR VOLUME 88 fL (80-99); MONOCYTES # (AUTO) 0.7 10^3/uL (0.0-1.0); MONOCYTES % (AUTO) 7 % (0-12); NEUTROPHILS # (AUTO) 5.7 10^3/uL (1.8-7.8); NEUTROPHILS % (AUTO) 62 % (42-75); PLATELET COUNT 296 10^3/uL (130-400); WHITE BLOOD COUNT 9.1 10^3/uL (4.3-11.0)
[2020-09-24 08:47] LABS: INR 1.1 (0.8-1.4); PROTHROMBIN TIME PATIENT 14.1 SEC (12.2-14.7)
[2020-09-24 08:49] LABS: POTASSIUM 4.5 MMOL/L (3.6-5.0)
[2020-09-24 08:50] LABS: CALCIUM 8.8 MG/DL (8.5-10.1)
[2020-09-24 08:51] LABS: TOTAL PROTEIN 7.6 GM/DL (6.4-8.2)
[2020-09-24 08:53] LABS: BILIRUBIN,TOTAL 0.4 MG/DL (0.1-1.0)
[2020-09-24 08:55] LABS: CREATININE SERUM 1.03 MG/DL (0.60-1.30)
== END ==
LOC: LAB 08:16
PROVIDERS: ATTEND Surgery
DX: R04.2 Hemoptysis (principal)
CPT/HCPCS: 36415; 80053; 85025; 85610

== ENCOUNTER → 2020-12-01 | Outpatient (CLI) | payer MEDICAID ==
[~2020-12-01] MED LIST changes: -ESCI10TA55 PO; +ESCI10TA64 PO
--- NOTE | 2020-12-01 15:20 | Diagnostic Imaging Report ---
INDICATION: Routine screening. COMPARISON: 08/24/2017. TECHNIQUE: 2D and 3D bilateral screening mammography was performed with CAD. FINDINGS: Scattered fibroglandular densities are identified bilaterally. There are benign parenchymal and vascular calcifications in both breasts. Benign nodular densities in the outer right breast at mid depth appears stable. No spiculated mass or malignant appearing microcalcifications are seen. The axillae are unremarkable. IMPRESSION: No mammographic features suspicious for malignancy are identified. ACR BI-RADS Category 2: Benign findings. Result letter will be mailed to the patient. Note: At least 10% of breast cancer is not imaged by mammography. Dictated by: Dictated on workstation # [id number]
== END ==
LOC: RAD 11:00
PROVIDERS: ATTEND Nurse Practitioner Family
DX: Z12.31 Encounter for screening mammogram for malignant neoplasm of breast (principal)
CPT/HCPCS: 77063; 77067

== ENCOUNTER 2021-02-26 18:41 | Emergency (ER) | payer MEDICAID ==
[~2021-02-26] VITALS: Ht 170.1 cm; Wt 115.0 kg
[~2021-02-26 18:41] MED LIST changes: -CEFA250C PO; +CEFA250C44 PO; -CIPR500T4 PO; +CIPR500T5 PO; +ESCI-2 PO; -ESCI10TA64 PO
--- NOTE | 2021-02-26 19:02 | ED Upper Extremity ---
General Chief Complaint: Upper Extremity Stated Complaint: R ELBOW PAIN Nursing Triage Note: PT STATES SHE WOKE UP WITH R ELBOW PAIN AND SWELLING. IS UNSURE IF SHE INJURED IT OR NOT. Nursing Sepsis Screen: No Definite Risk Source: patient Exam Limitations: no limitations History of Present Illness Date Seen by Provider: Feb 26, 2021 Time Seen by Provider: 18:37 Initial Comments Patient presents ER by a private conveyance with her niece who is her caregiver chief complaint about 3 or 4 days has had progressive swelling and pain in her right elbow. She is not sure if she elbowed the side table in her sleep but she does not remember hitting something just woke up with it and pain. She says is red and hot. No drainage. No fevers chills. She saw her doctor 2 days ago but did not bring it up because it was not hurting as bad. She has a history of renal transplant so she cannot take NSAIDs. She has a history of hyperglycemia and her primary care doctor is trying to ascertain if she has diabetes or not. She has been able to take steroids in the past. No numbness or tingling in her hand. Allergies and Home Medications Allergies Coded Allergies: Sulfa (Sulfonamide Antibiotics) (Unverified Allergy, Unknown, 06/06/16) baclofen (Verified Allergy, Unknown, 05/01/18) codeine (Unverified Allergy, Unknown, 05/27/14) cyclobenzaprine (Unverified Allergy, Unknown, 02/10/15) influenza virus vaccine, specific (Unverified Allergy, Unknown, 05/27/14) iodine (Unverified Allergy, Unknown, 05/27/14) Home Medications Buspirone HCl 10 Mg Tablet, 10 MG PO TID, (Reported) Cefaclor 250 Mg Capsule, 250 MG PO DAILY, (Reported) Dicyclomine HCl 10 Mg Capsule, 10 MG PO Q6H Prescribed by: YUMIKO HUNTER on 02/11/19 0001 Doxycycline Hyclate 100 Mg Tablet, 100 MG PO BID , Prescribed by: AARON PERKINS on 07/23/19 1433 Escitalopram Oxalate 10 Mg Tablet, 10 MG PO DAILY, (Reported) Mupirocin 1 Gm Oin.pf.[place], 1 GM NA BID Prescribed by: YUMIKO HUTNER on 11/18/19 0822 Mycophenolate Mofetil 500 Mg Tablet, 750 MG PO BID, (Reported) TAKES 1 & 1/2 (500MG) TABLET Ondansetron HCl 8 Mg Tablet, 8 MG PO TID, (Reported) Pantoprazole Sodium 40 Mg Tablet.dr, 40 MG PO DAILY Prescribed by: NISH CASTILLO on 07/29/19 1554 Polyethylene Glycol 3350 119 Gm Powder, 17 GM PO Q6H PRN for CONSTIPATION-1ST LINE Prescribed by: NISH CASTILLO on 05/03/20 2890 Patient Home Medication List Home Medication List Reviewed: Yes Review of Systems Constitutional: No chills, No diaphoresis, No fever EENTM: No ear discharge, No eye pain Respiratory: No cough, No short of breath Cardiovascular: No chest pain, No edema Gastrointestinal: No abdominal pain, No nausea Genitourinary: No discharge, No dysuria Musculoskeletal: see HPI; No back pain; joint pain All Other Systems Reviewed Negative Unless Noted: Yes Past Zgfvfdp-Vuleqq-Uivone Hx Patient Social History Alcohol Use: Denies Use Smoking Status: Never a Smoker 2nd Hand Smoke Exposure: No Recent Infectious Disease Expo: No Recent Hopitalizations: No Immunizations Up To Date Tetanus Booster (TDap): Unknown PED Vaccines UTD: Yes Seasonal Allergies Seasonal Allergies: Yes Past Medical History Surgeries: Yes (HIATAL HERNIA REPAIR; RENAL TRANSPLANT 2005; ) Abdominal, Arteriovenous Shunt, Dialysis, Gallbladder, Kidney Transplant, Parathyroidectomy, Vascular Surgery Respiratory: Yes Asthma, Chronic Bronchitis Cardiac: Yes High Cholesterol Neurological: No 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 Disorders: No 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 Disorders: Denies CHIEF OF SURGERY History: Menopausal Sexually Transmitted Disease: No HIV/AIDS: No Genitourinary: Yes (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") Renal Failure, Dialysis, UTI-Chronic Gastrointestinal: Yes (HIATAL HERNIA REPAIR X 2; CHRONIC ABDOMINAL PAIN ) Gastroesophageal Reflux, Hiatal Hernia, Ulcer Musculoskeletal: Yes (CHRONIC KNEE PAIN ) Degenerate Disk Disease, Arthritis, Scoliosis, Chronic Back Pain Endocrine: Yes (LABILE BLOOD GLUCOSE) Parathyroid Disease, Hypothyroidsim HEENT: No Cancer: No Psychosocial: Yes (anger issues) Anxiety, Depression Integumentary: No Blood Disorders: No Adverse Reaction/Blood Tranf: No Family Medical History Cancer aunt grandfather (Hodgkin's) Chest pain 19 FATHER Family history: Allergy 19 FATHER 19 MOTHER (hay fever) G8 BROTHER (hay fever) G8 SISTER (hay fever) Family history: Breast disease G8 SISTER aunt Family history: Diabetes mellitus 19 FATHER Family history: Gastrointestinal disease 19 FATHER (Hernia) G8 BROTHER (crohn's) Hearing loss 19 FATHER Thyroid disease 19 MOTHER No Family History of: Abdominal aortic aneurysm [place]'s disease Alcoholism Aphasia Cancer of colon Congenital heart disease Congestive heart failure Cystic fibrosis Dementia Dysphagia Family history: Alzheimer's disease Family history: Arthritis Family history: Asthma Family history: Cardiovascular disease Family history: Coronary thrombosis Family history: Glaucoma Family history: Hypertension Family history: Osteoporosis Family history: Thyroid disorder Headache Heart disease Hereditary disease History of - anemia History of - disorder History of - respiratory disease History of drug abuse Human immunodeficiency virus (HIV) seropositivity Hypercholesterolemia Infertile Kidney disease Malignant neoplasm of lung Myocardial infarction Parkinson's disease Prostate cancer Psychotic disorder Seizure disorder Stroke Tuberculosis Visual impairment Heart Disease Physical Exam Vital Signs Vital Signs - First Documented 02/26/21 18:50 Temp 36.2 Pulse 106 Resp 20 B/P (MAP) 142/76 (98) Pulse Ox 94 O2 Delivery Room Air Capillary Refill : Less Than 3 Seconds Height, Weight, BMI Height: 5'7.00" Weight: 240lbs. 0oz. 108.354785ne; 39.00 BMI Method:Stated General Appearance: WD/WN, mild distress HEENT: PERRL/EOMI, pharynx normal Neck: full range of motion, normal inspection Cardiovascular: normal peripheral pulses, regular rate, rhythm Respiratory: no respiratory distress, no accessory muscle use Elbow/Forearm: Right, bone tenderness (Right), pain, soft tissue tenderness, swelling Hand: normal inspection, non-tender, no evidence of injury, normal ROM, Right Skin: normal color, warm/dry Progress/Results/Core Measures Results/Orders My Orders Orders - FATOUMATA KIRKPATRICK Elbow, Right, 3 Views (02/26/21 18:57) Vital Signs/I&O 02/26/21 18:50 Temp 36.2 Pulse 106 Resp 20 B/P (MAP) 142/76 (98) Pulse Ox 94 O2 Delivery Room Air Blood Pressure Mean: 98 Progress Progress Note : Time: 19:00 Progress Note Inflamed bursitis. We discussed steroids. We will go ahead and get an x-ray to rule out underlying fracture and then get her wrapped and put in a sling. We have encouraged ice and topical creams as well as Tylenol. Diagnostic Imaging Diagonstic Imaging: Xray Comments NAME: MARYANNE ORTIZ [facility] REC#: [id number] PT STATUS: REG ER : 1975 PHYSICIAN: FATOUMATA KIRKPATRICK MD ADMIT DATE: 02/26/21/ER Draft Date of Exam:02/26/21 ELBOW, RIGHT, 3 VIEWS CLINICAL HISTORY: Right elbow pain for four days. No known injury. COMPARISON: None. TECHNIQUE: Three views of the right elbow. FINDINGS: There is no acute fracture or dislocation of the right elbow. Alignment is anatomic. The imaged joint spaces are preserved. No joint effusion is seen in the right elbow. Soft tissue edema is seen overlying the olecranon process. IMPRESSION: 1. No acute fracture or dislocation in the right elbow. No evidence of joint effusion. 2. Edema overlying the right olecranon process, which may represent olecranon bursitis. Dictated on workstation # [id number] Dict: 02/26/211936 Trans: 02/26/211938 [facility] [id number] Interpreted by: MANUELA SRIVASTAVA DO Electronically signed by: Departure Impression Primary Impression: Olecranon bursitis, right elbow Disposition: HOME, SELF-CARE Condition: Stable Departure-Patient Inst. Decision time for Depature: 19:19 Referrals: LIYA ARVIZU MD (PCP/Family) Primary Care Physician Patient Instructions: Olecranon Bursitis (DC) Add. Discharge Instructions: Keep the elbow elevated above the level of your heart when possible. Keep a elastic bandage such as an Napoleon wrap for compression around your elbow except to bathe. Keep your arm in a sling for the next week or 2. Take it out of the sling several times a day to move your arm and shoulders through range of motion. Tylenol 650 mg every 6 hours as necessary for pain. Topical creams such as icy hot or Biofreeze. Follow-up with your primary care doctor in 1 to 2 weeks for recheck to make sure things are getting better. Medrol Dosepak as directed. All discharge instructions reviewed with patient and/or family. Voiced understanding. Scripts Methylprednisolone (Methylprednisolone Dose Pack) 4 Mg Tab.ds.pk 4 MG PO UD for 6 Days, #21 PKG 0 Refills PER DOSE PACK INSTRUCTIONS Prov: FATOUMATA KIRKPATRICK 02/26/21 FATOUMATA KIRKPATRICK Feb 26, 2021 19:02
--- NOTE | 2021-02-26 19:40 | Diagnostic Imaging Report ---
CLINICAL HISTORY: Right elbow pain for four days. No known injury. COMPARISON: None. TECHNIQUE: Three views of the right elbow. FINDINGS: There is no acute fracture or dislocation of the right elbow. Alignment is anatomic. The imaged joint spaces are preserved. No joint effusion is seen in the right elbow. Soft tissue edema is seen overlying the olecranon process. IMPRESSION: 1. No acute fracture or dislocation in the right elbow. No evidence of joint effusion. 2. Edema overlying the right olecranon process, which may represent olecranon bursitis. Dictated by: Dictated on workstation # [id number]
[2021-02-26] MEDS ORDERED: METH4TAB10 PO ×2 (19:50→19:51)
[2021-02-26 20:20] VITALS: BP 142/76
== END 2021-02-26 20:20 | disposition home or self-care (01) ==
LOC: EDUNIT# 18:41 → ER 18:42
DX: M70.21 Olecranon bursitis, right elbow (principal); J45.909 Unspecified asthma, uncomplicated; K21.9 Gastro-esophageal reflux disease without esophagitis; F41.9 Anxiety disorder, unspecified; F32.9 Major depressive disorder, single episode, unspecified; Z88.2 Allergy status to sulfonamides; Z88.5 Allergy status to narcotic agent; Z91.041 Radiographic dye allergy status; Z88.7 Allergy status to serum and vaccine; Z88.8 Allergy status to other drugs, medicaments and biological substances; X58.XXXA Exposure to other specified factors, initial encounter
CPT/HCPCS: 73080; 99283; A4565

== ENCOUNTER → 2021-07-27 | Outpatient (CLI) | payer MEDICAID ==
[~2021-07-27] MED LIST changes: +METH4TAB10 PO
[2021-07-27 14:45] LABS: ANISOCYTOSIS SLIGHT; BAND NEUTROPHILS 0 %; BASOPHILS % (MANUAL) 0 %; EOSINOPHILS % (MANUAL) 2 %; LYMPHOCYTES % (MANUAL) 53 %; MONOCYTES % (MANUAL) 12 %; NEUTROPHILS % (MANUAL) 83 %
== END ==
LOC: LABNPT 14:27
PROVIDERS: ATTEND Nurse Practitioner Family
DX: Z01.89 Encounter for other specified special examinations (principal)
CPT/HCPCS: 85007

== ENCOUNTER → 2021-11-20 | Outpatient (CLI) | payer MEDICAID ==
[~2021-11-20] MED LIST changes: +ONDA-106 PO; -ONDA8TAB15 PO
--- NOTE | 2021-11-20 15:16 | Diagnostic Imaging Report ---
PROCEDURE: CT abdomen and pelvis without contrast. TECHNIQUE: Multiple contiguous axial images were obtained through the abdomen and pelvis without the use of intravenous contrast. Auto Exposure Controls were utilized during the CT exam to meet ALARA standards for radiation dose reduction. INDICATION: Follow-up abdominal hernia. COMPARISON: 05/03/2020. FINDINGS: The heart is unremarkable. Subsegmental atelectasis is seen in the left lung base. Focal fatty infiltration is seen along the falciform ligament. The gallbladder is surgically absent. The [place] kidneys are atrophic. Transplant kidney is seen in the right lower quadrant. No hydronephrosis in the transplant kidney. The urinary bladder is nondistended. The spleen, pancreas, and adrenal glands have a normal noncontrast CT appearance. There is no pathologically enlarged mesenteric or retroperitoneal adenopathy. Postsurgical changes of gastric bypass are visualized in the upper abdomen. There are nondistended fluid-filled loops of small bowel in the upper abdomen. Diverticula are seen in the descending and sigmoid colon. There is bowel wall thickening throughout the sigmoid colon. There is no free fluid or free air. No acute osseous abnormalities. Diffuse marrow abnormality is seen throughout the osseous structures likely representing renal osteodystrophy. There is no free air, loculated collection, or adenopathy in the pelvis. IMPRESSION: 1. Fluid-filled nondilated loops of small bowel in the upper abdomen, which can be seen with enteritis. 2. Bowel thickening in the sigmoid colon, which can be seen with colitis versus inadequate distention. Superimposed diverticulosis is seen. 3. Transplant kidney in the right lower quadrant. No evidence of hydronephrosis. The [place] kidneys are severely atrophic. 4. Diffuse bone marrow abnormality likely representing renal osteodystrophy. No acute fracture. Dictated by: Dictated on workstation # [id number]
== END ==
LOC: RAD 13:15
PROVIDERS: ATTEND Nurse Practitioner
DX: K45.8 Other specified abdominal hernia without obstruction or gangrene (principal); N26.1 Atrophy of kidney (terminal); Z94.0 Kidney transplant status
CPT/HCPCS: 74176

== ENCOUNTER 2022-02-14 18:53 | Emergency (ER) | payer MEDICAID ==
[~2022-02-14] VITALS: Ht 167.7 cm; Wt 75.7 kg
--- NOTE | 2022-02-14 19:30 | ED Back Pain ---
General Chief Complaint: Back Problems Stated Complaint: BACK SWELLING Nursing Triage Note: C/o back pain x 1.5 days history of chronic pain. Reports that she has used icy hot, tramadol, and muscle relaxer at home Source of Information: Patient Exam Limitations: No Limitations History of Present Illness Date Seen by Provider: Feb 14, 2022 Time Seen by Provider: 19:27 Initial Comments Patient is a 46-year-old female presents ED with right-sided back pain. Symptoms started yesterday. According to patient she states one of her family members reported her right side of her back being swollen. She denies any trauma, fever or significant pain. Has been applying topical Biofreeze with some improvement. Does take tramadol and tizanidine for muscle pain. History of scoliosis. Denies fever, distal numbness and tingling, headache, dizziness chest pain or shortness of breath. Allergies and Home Medications Allergies Coded Allergies: Sulfa (Sulfonamide Antibiotics) (Unverified Allergy, Unknown, 06/06/16) baclofen (Verified Allergy, Unknown, 05/01/18) codeine (Unverified Allergy, Unknown, 05/27/14) cyclobenzaprine (Unverified Allergy, Unknown, 02/10/15) influenza virus vaccine, specific (Unverified Allergy, Unknown, 05/27/14) iodine (Unverified Allergy, Unknown, 05/27/14) Patient Home Medication List Home Medication List Reviewed: Yes Albuterol Sulfate (Ventolin Hfa) 18 Gm Hfa.aer.ad, 1-2 PUFF IH, (Reported) Entered as Reported by: AIME BUTTERFIELD on 06/06/161847 Buspirone HCl (Buspirone HCl) 10 Mg Tablet, 10 MG PO TID, (Reported) Entered as Reported by: NEDRA OGLESBY on 07/29/19 1341 Cefaclor (Cefaclor) 250 Mg Capsule, 250 MG PO DAILY, (Reported) Entered as Reported by: NEDRA OGLESBY on 07/29/19 1341 Dicyclomine HCl (Dicyclomine HCl) 10 Mg Capsule, 10 MG PO, (Reported) Entered as Reported by: AIME BUTTERFIELD on 06/06/16 184 Dicyclomine HCl (Dicyclomine HCl) 10 Mg Capsule, 10 MG PO Q6H Prescribed by: YUMIKO HUNTER on 02/11/19 0001 Doxycycline Hyclate (Doxycycline Hyclate) 100 Mg Tablet, 100 MG PO BID Prescribed by: AARON PERKINS on 07/23/19 1433 Escitalopram Oxalate (Escitalopram Oxalate) 10 Mg Tablet, 10 MG PO DAILY, (Re ported) Entered as Reported by: NEDRA OGLESBY on 07/29/19 1341 Methylprednisolone (Methylprednisolone Dose Pack) 4 Mg Tab.ds.pk, 4 MG PO UD Prescribed by: FATOUMATA KIRKPATRICK on 02/26/211950 Mupirocin (Mupirocin) 1 Gm Oin.pf.[place], 1 GM NA BID Prescribed by: YUMIKO HUNTER on 11/18/19 0822 Mycophenolate Mofetil (Cellcept) 500 Mg Tablet, 750 MG PO BID, (Reported) Entered as Reported by: CELIO MCCULLOUGH on 05/27/14 0556 Ondansetron HCl (Ondansetron HCl) 8 Mg Tablet, 8 MG PO TID, (Reported) Entered as Reported by: NEDRA OGLESBY on 07/29/19 1339 Pantoprazole Sodium (Protonix) 40 Mg Tablet.dr, 40 MG PO DAILY Prescribed by: NISH CASTILLO on 07/29/19 1554 Polyethylene Glycol 3350 (Miralax) 119 Gm Powder, 17 GM PO Q6H PRN for CONSTIPATION-1ST LINE Prescribed by: NISH CASTILLO on 05/03/20 1750 Simethicone (Gas-X) 125 Mg Capsule, Unknown Dose PO, (Reported) Entered as Reported by: MARIA DEL CARMEN KRISHNAN on 08/27/182045 Tacrolimus (Prograf) 1 Mg Capsule, 1 MG PO, (Reported) Entered as Reported by: AIME BUTTERFIELD on 06/06/16 184 Tizanidine HCl (Zanaflex) 2 Mg Capsule, Unknown Dose PO, (Reported) Entered as Reported by: MARIA DEL CARMEN KRISHNAN on 02/13/181903 Tramadol HCl (Tramadol HCl) 50 Mg Tablet, Unknown Dose PO, (Reported) Entered as Reported by: MARIA DEL CARMEN KRISHNAN on 02/13/181903 Review of Systems Constitutional: No chills, No diaphoresis, No fever EENTM: No ear pain, No blurred vision, No double vision Respiratory: No cough, No dyspnea on exertion Cardiovascular: No chest pain Gastrointestinal: No abdominal pain, No diarrhea, No dysphagia, No nausea, No vomiting Genitourinary: No decreased output, No discharge Musculoskeletal: back pain; No joint pain; muscle pain, muscle stiffness Skin: No change in color, No change in hair/nails All Other Systems Reviewed Negative Unless Noted: Yes Past Rcofrxi-Ivjvuo-Jxklvw Hx Patient Social History Tobacco Use?: No Smoking Status: Never a Smoker Use of E-Cig and/or Vaping dev: No Substance use?: No Alcohol Use?: No Pt feels they are or have been: No Immunizations Up To Date Tetanus Booster (TDap): Unknown PED Vaccines UTD: Yes Influenza Vaccine Up-to-Date: No; Not Current First/Initial COVID19 Vaccinat: 2020 Second COVID19 Vaccination Jay: 2020 Seasonal Allergies Seasonal Allergies: Yes Past Medical History Surgeries: Yes (HIATAL HERNIA REPAIR; RENAL TRANSPLANT 2006; ) Abdominal, Arteriovenous Shunt, Dialysis, Gallbladder, Kidney Transplant, Parathyroidectomy, Vascular Surgery Respiratory: Yes Asthma, Chronic Bronchitis Cardiac: Yes High Cholesterol Neurological: No 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 Disorders: No 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 Sexually Transmitted Disease: No HIV/AIDS: No Genitourinary: Yes (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") Renal Failure, Dialysis, UTI-Chronic Gastrointestinal: Yes (HIATAL HERNIA REPAIR X 2; CHRONIC ABDOMINAL PAIN ) Gastroesophageal Reflux, Hiatal Hernia, Ulcer Musculoskeletal: Yes (CHRONIC KNEE PAIN ) Degenerate Disk Disease, Arthritis, Scoliosis, Chronic Back Pain Endocrine: Yes (LABILE BLOOD GLUCOSE) Parathyroid Disease, Hypothyroidsim HEENT: No Cancer: No Psychosocial: Yes (anger issues) Anxiety, Depression Integumentary: No Blood Disorders: No Adverse Reaction/Blood Tranf: No Family Medical History Cancer aunt grandfather (Hodgkin's) Chest pain 19 FATHER Family history: Allergy 19 FATHER 19 MOTHER (hay fever) G8 BROTHER (hay fever) G8 SISTER (hay fever) Family history: Breast disease G8 SISTER aunt Family history: Diabetes mellitus 19 FATHER Family history: Gastrointestinal disease 19 FATHER (Hernia) G8 BROTHER (crohn's) Hearing loss 19 FATHER Thyroid disease 19 MOTHER No Family History of: Abdominal aortic aneurysm Citrus's disease Alcoholism Aphasia Cancer of colon Congenital heart disease Congestive heart failure Cystic fibrosis Dementia Dysphagia Family history: Alzheimer's disease Family history: Arthritis Family history: Asthma Family history: Cardiovascular disease Family history: Coronary thrombosis Family history: Glaucoma Family history: Hypertension Family history: Osteoporosis Family history: Thyroid disorder Headache Heart disease Hereditary disease History of - anemia History of - disorder History of - respiratory disease History of drug abuse Human immunodeficiency virus (HIV) seropositivity Hypercholesterolemia Infertile Kidney disease Malignant neoplasm of lung Myocardial infarction Parkinson's disease Prostate cancer Psychotic disorder Seizure disorder Stroke Tuberculosis Visual impairment Heart Disease Physical Exam Vital Signs Vital Signs - First Documented 02/14/22 19:09 Temp 36.7 Pulse 87 Resp 18 B/P (MAP) 95/67 (76) Pulse Ox 96 Capillary Refill : Less Than 3 Seconds Height, Weight, BMI Height: 5'7.00" Weight: 240lbs. 0oz. 108.491637yr; 26.00 BMI Method:Stated General Appearance: No Apparent Distress, WD/WN HEENT: PERRL/EOMI, TMs Normal, Normal ENT Inspection, Pharynx Normal Neck: Full Range of Motion, Normal Inspection, Non Tender, Supple Cardiovascular: Regular Rate, Rhythm, No Edema, No Gallop, No JVD, No Murmur Respiratory: Chest Non Tender, Lungs Clear, Normal Breath Sounds, No Accessory Muscle Use Gastrointestinal: Normal Bowel Sounds, No Organomegaly, No Pulsatile Mass, Non Tender Back: Normal Inspection, No CVA Tenderness, No Vertebral Tenderness Extremity: Normal Capillary Refill, Normal Inspection, Normal Range of Motion, Non Tender Progress/Results/Core Measures Results/Orders Vital Signs/I&O 02/14/22 19:09 Temp 36.7 Pulse 87 Resp 18 B/P (MAP) 95/67 (76) Pulse Ox 96 Blood Pressure Mean: 76 Departure Communication (Admissions) No significant swelling no. No palpable abscess or mass. No tenderness. Possible muscles strain. Ribs were palpated may be a underlying cyst. Continue monitoring. If worsening symptoms return back to ED such as redness, swelling or pain. This does not appear infectious. Impression Primary Impression: Soft tissue swelling of back Disposition: HOME, SELF-CARE Condition: Stable Departure-Patient Inst. Decision time for Depature: 19:29 Referrals: [facility] [place],LOCAL PHYSICIAN (PCP) Primary Care Physician Patient Instructions: Swelling ADRIENNE VIEYRA Feb 14, 2022 19:29
[2022-02-14 19:36] VITALS: BP 105/71
== END 2022-02-14 19:36 | disposition home or self-care (01) ==
LOC: EDUNIT# 18:53 → ER 18:55
DX: M79.89 Other specified soft tissue disorders (principal); Z87.39 Personal history of other diseases of the musculoskeletal system and connective tissue
CPT/HCPCS: 99281

== ENCOUNTER 2022-09-03 10:48 | Outpatient (RCR) | payer MEDICAID, MEDICARE ==
[2022-08-25 12:50] LABS: BASOPHILS # (AUTO) 0.1 10^3/uL (0.0-0.1); BASOPHILS % (AUTO) 1 % (0-10); EOSINOPHILS # (AUTO) 0.1 10^3/uL (0.0-0.3); EOSINOPHILS % (AUTO) 2 % (0-10); HEMATOCRIT 44 % (35-52); HEMOGLOBIN 14.2 g/dL (11.5-16.0); LYMPHOCYTES # (AUTO) 2.5 10^3/uL (1.0-4.0); LYMPHOCYTES % (AUTO) 40 % (12-44); MEAN CORPUSCULAR HEMOGLOBIN 29 pg (25-34); MEAN CORPUSCULAR HGB CONC 32 g/dL (32-36); MEAN CORPUSCULAR VOLUME 89 fL (80-99); MEAN PLATELET VOLUME 8.9 fL (9.0-12.2); MONOCYTES # (AUTO) 0.5 10^3/uL (0.0-1.0); MONOCYTES % (AUTO) 8 % (0-12); NEUTROPHILS # (AUTO) 3.1 10^3/uL (1.8-7.8); NEUTROPHILS % (AUTO) 50 % (42-75); PLATELET COUNT 252 10^3/uL (130-400); WHITE BLOOD COUNT 6.3 10^3/uL (4.3-11.0)
[2022-08-25 13:02] LABS: CALCIUM 9.2 MG/DL (8.5-10.1)
[2022-08-25 13:03] LABS: TOTAL PROTEIN 7.2 GM/DL (6.4-8.2)
[2022-08-25 13:05] LABS: BILIRUBIN,TOTAL 0.6 MG/DL (0.1-1.0)
[2022-08-25 13:07] LABS: CREATININE SERUM 0.87 MG/DL (0.60-1.30)
[2022-08-25 13:10] LABS: MAGNESIUM 1.8 MG/DL (1.6-2.4)
[~2022-09-03 10:48] MED LIST changes: -BACI1PAC28 TP
== END 2022-09-06 | disposition home or self-care (01) ==
LOC: LAB 10:48
PROVIDERS: ATTEND Surgery
DX: E16.1 Other hypoglycemia (principal); K91.2 Postsurgical malabsorption, not elsewhere classified; Z90.3 Acquired absence of stomach [part of]
CPT/HCPCS: 36415; 80053; 82306; 82607; 82728; 83036; 83540; 83550; 83735; 83970; 84425; 84630; 85025

== ENCOUNTER → 2022-09-03 | Outpatient (CLI) | payer MEDICAID ==
[~2022-09-03] MED LIST changes: +BACI1PAC28 TP
== END ==
LOC: LAB 08:00
PROVIDERS: ATTEND Surgery
DX: E16.1 Other hypoglycemia (principal); K91.2 Postsurgical malabsorption, not elsewhere classified; Z90.3 Acquired absence of stomach [part of]
CPT/HCPCS: 36415; 84425; 84630

== ENCOUNTER 2022-11-14 20:01 | Emergency (ER) | payer MEDICAID ==
[~2022-11-14] VITALS: Ht 167.7 cm; Wt 68.0 kg
[2022-11-14 20:08] VITALS: BP 123/78
[2022-11-14] MEDS ORDERED: BACI1PAC28 TP (20:30)
--- NOTE | 2022-11-14 20:30 | ED Integumentary General ---
General Chief Complaint: Skin/Wound Problems Stated Complaint: MIDDLE FINGER INJURY Nursing Triage Note: PT AMB TO FT 1 W AREA OF CONCERN ON RIGHT 3RD FINGER. PT REPORTS APPROX 1 WK AGO SHE WAS DOING DISHES WHEN SHE NOTICED AREA, CONCERNED IT MAY BE INFECTED. PT A&OX4. Source: patient Exam Limitations: no limitations History of Present Illness Date Seen by Provider: Nov 14, 2022 Time Seen by Provider: 20:10 Initial Comments History provided by patient. Patient is a 46-year-old female who presents the emergency department for evaluation of skin cracking to both her hands. She states the primary area of concern is a large split in the skin overlying the knuckle of her right third finger. She states she is concerned it may be getting infected. She states she has been washing dishes frequently over the last several days and feels like this is why the cracking is occurring. She states this happens often. She has a history of organ transplant and is on both CellCept and Prograf for immunosuppression. She states she has not had any fever, significant redness to the area, drainage from the area, or significantly increased pain over the last few days. She states the skin to the finger has been open for several days at this point. She has been applying lotion intermittently to try to hydrate her skin but she continues to wash dishes frequently. Denies any other injury to the affected finger. Allergies and Home Medications Allergies Coded Allergies: Sulfa (Sulfonamide Antibiotics) (Unverified Allergy, Unknown, 06/06/16) baclofen (Verified Allergy, Unknown, 05/01/18) codeine (Unverified Allergy, Unknown, 05/27/14) cyclobenzaprine (Unverified Allergy, Unknown, 02/10/15) influenza virus vaccine, specific (Unverified Allergy, Unknown, 05/27/14) iodine (Unverified Allergy, Unknown, 05/27/14) Patient Home Medication List Home Medication List Reviewed: Yes Albuterol Sulfate (Ventolin Hfa) 18 Gm Hfa.aer.ad, 1-2 PUFF IH, (Reported) Entered as Reported by: AIME BUTTERFIELD on 06/06/161847 Bacitracin Zinc (Bacitracin Zinc) 500 Unit/Gram Oint..ea., 1 EACH TP QID Prescribed by: Jake Wray on 11/14/222029 Buspirone HCl (Buspirone HCl) 10 Mg Tablet, 10 MG PO TID, (Reported) Entered as Reported by: NEDRA OGLESBY on 07/29/19 1341 Cefaclor (Cefaclor) 250 Mg Capsule, 250 MG PO DAILY, (Reported) Entered as Reported by: NEDRA OGLESBY on 07/29/19 1341 Dicyclomine HCl (Dicyclomine HCl) 10 Mg Capsule, 10 MG PO, (Reported) Entered as Reported by: AIME BUTTERFIELD on 06/06/16 1848 Dicyclomine HCl (Dicyclomine HCl) 10 Mg Capsule, 10 MG PO Q6H Prescribed by: YUMIKO HUNTER on 02/11/19 0001 Doxycycline Hyclate (Doxycycline Hyclate) 100 Mg Tablet, 100 MG PO BID Prescribed by: AARON PERKINS on 07/23/19 1433 Escitalopram Oxalate (Escitalopram Oxalate) 10 Mg Tablet, 10 MG PO DAILY, (Reported) Entered as Reported by: NEDRA GOLESBY on 07/29/19 134 Methylprednisolone (Methylprednisolone Dose Pack) 4 Mg Tab.ds.pk, 4 MG PO UD Prescribed by: FATOUMATA KIRKPATRICK on 02/26/211950 Mupirocin (Mupirocin) 1 Gm Oin.pf.[place], 1 GM NA BID Prescribed by: YUMIKO HUNTER on 11/18/19 0822 Mycophenolate Mofetil (Cellcept) 500 Mg Tablet, 750 MG PO BID, (Reported) Entered as Reported by: CELIO MCCULLOUGH on 05/27/14 0556 Ondansetron HCl (Ondansetron HCl) 8 Mg Tablet, 8 MG PO TID, (Reported) Entered as Reported by: NEDRA OGLESBY on 07/29/19 1339 Pantoprazole Sodium (Protonix) 40 Mg Tablet.dr, 40 MG PO DAILY Prescribed by: NISH CASTILLO on 07/29/19 1554 Polyethylene Glycol 3350 (Miralax) 119 Gm Powder, 17 GM PO Q6H PRN for CONSTIPATION-1ST LINE Prescribed by: NISH CASTILLO on 05/03/20 1750 Simethicone (Gas-X) 125 Mg Capsule, Unknown Dose PO, (Reported) Entered as Reported by: MARIA DEL CARMEN KRISHNAN on 08/27/18 204 Tacrolimus (Prograf) 1 Mg Capsule, 1 MG PO, (Reported) Entered as Reported by: AIME BUTTERFIELD on 06/06/16 1848 Tizanidine HCl (Zanaflex) 2 Mg Capsule, Unknown Dose PO, (Reported) Entered as Reported by: MARIA DEL CARMEN KRISHNAN on 02/13/181903 Tramadol HCl (Tramadol HCl) 50 Mg Tablet, Unknown Dose PO, (Reported) Entered as Reported by: MARIA DEL CARMEN KRISHNAN on 02/13/181903 Review of Systems Review of Systems Constitutional: no symptoms reported EENTM: no symptoms reported Respiratory: no symptoms reported Cardiovascular: no symptoms reported Gastrointestinal: no symptoms reported Genitourinary: no symptoms reported Musculoskeletal: no symptoms reported Skin: see HPI Psychiatric/Neurological: No Symptoms Reported Endocrine: No Symptoms Reported Past Vqnrgwm-Xjpzqz-Tcnqxz Hx Patient Social History Tobacco Use?: No Use of E-Cig and/or Vaping dev: No Substance use?: No Alcohol Use?: No Immunizations Up To Date Tetanus Booster (TDap): Unknown PED Vaccines UTD: Yes Influenza Vaccine Up-to-Date: No; Not Current First/Initial COVID19 Vaccinat: 2019 Second COVID19 Vaccination Jay: NONE Third COVID19 Vaccination Date: NONE 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: [employer] Seasonal Allergies Seasonal Allergies: Yes Past Medical History Surgeries: Yes (HIATAL HERNIA REPAIR; RENAL TRANSPLANT 2005; ) Abdominal, Arteriovenous Shunt, Dialysis, Gallbladder, Kidney Transplant, Parathyroidectomy, Vascular Surgery Respiratory: Yes Asthma, Chronic Bronchitis Cardiac: Yes High Cholesterol Neurological: No 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 Disorders: No 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 Sexually Transmitted Disease: No HIV/AIDS: No Genitourinary: Yes (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") Renal Failure, Dialysis, UTI-Chronic Gastrointestinal: Yes (HIATAL HERNIA REPAIR X 2; CHRONIC ABDOMINAL PAIN ) Gastroesophageal Reflux, Hiatal Hernia, Ulcer Musculoskeletal: Yes (CHRONIC KNEE PAIN ) Degenerate Disk Disease, Arthritis, Scoliosis, Chronic Back Pain Endocrine: Yes (LABILE BLOOD GLUCOSE) Parathyroid Disease, Hypothyroidsim HEENT: No Cancer: No Psychosocial: Yes (anger issues) Anxiety, Depression Integumentary: No Blood Disorders: No Adverse Reaction/Blood Tranf: No Family Medical History Cancer aunt grandfather (Hodgkin's) Chest pain 19 FATHER Family history: Allergy 19 FATHER 19 MOTHER (hay fever) G8 BROTHER (hay fever) G8 SISTER (hay fever) Family history: Breast disease G8 SISTER aunt Family history: Diabetes mellitus 19 FATHER Family history: Gastrointestinal disease 19 FATHER (Hernia) G8 BROTHER (crohn's) Hearing loss 19 FATHER Thyroid disease 19 MOTHER No Family History of: Abdominal aortic aneurysm Squire's disease Alcoholism Aphasia Cancer of colon Congenital heart disease Congestive heart failure Cystic fibrosis Dementia Dysphagia Family history: Alzheimer's disease Family history: Arthritis Family history: Asthma Family history: Cardiovascular disease Family history: Coronary thrombosis Family history: Glaucoma Family history: Hypertension Family history: Osteoporosis Family history: Thyroid disorder Headache Heart disease Hereditary disease History of - anemia History of - disorder History of - respiratory disease History of drug abuse Human immunodeficiency virus (HIV) seropositivity Hypercholesterolemia Infertile Kidney disease Malignant neoplasm of lung Myocardial infarction Parkinson's disease Prostate cancer Psychotic disorder Seizure disorder Stroke Tuberculosis Visual impairment Heart Disease Physical Exam Vital Signs Vital Signs - First Documented 11/14/22 20:08 Temp 36.5 Pulse 89 Resp 20 B/P (MAP) 123/78 (93) Pulse Ox 97 O2 Delivery Room Air Capillary Refill : Less Than 3 Seconds General Appearance: WD/WN, no apparent distress HEENT: PERRL/EOMI, normal ENT inspection, TMs normal, pharynx normal Cardiovascular: regular rate, rhythm Respiratory: chest non-tender, lungs clear, normal breath sounds, no respirato ry distress, no accessory muscle use Comments Skin to bilateral hands is very dry and cracked in multiple places. Several splits in the skin noted overlying several of the patient's knuckles. There is a large split overlying the PIP joint Progress/Results/Core Measures Results/Orders Vital Signs/I&O 11/14/22 20:08 Temp 36.5 Pulse 89 Resp 20 B/P (MAP) 123/78 (93) Pulse Ox 97 O2 Delivery Room Air Blood Pressure Mean: 93 Progress Progress Note : Progress Note Patient is nontoxic and well-hydrated on exam. She does have a large split the skin overlying the PIP joint of the right middle digit. She has full range of motion of the affected extremity. There is no significant induration/fluctuance noted to the area. No active drainage noted. No purulence is able to be expressed from the wound. I have a low suspicion for infectious process at this time. I feel like this is all related to her frequently washing dishes in the recent past causing her skin to dry out. There is no indication for any diagnostic testing at this time. I discussed use of heavy emollients or lotions to help hydrate the skin. I stated ideally abstaining from washing dishes or submerging her hands in water would hopefully help prevent further dryness and allow the area to heal. She was given a prescription for bacitracin to use on the area. Discussed supportive care and anticipatory guidance. Follow-up with PCP as needed. Return precautions for urgent symptomology discussed. Patient verbalized understanding. Departure Impression Primary Impression: Cracked skin Disposition: HOME, SELF-CARE Condition: Stable Departure-Patient Inst. Decision time for Depature: 20:25 Referrals: JOHN ORTIZ (PCP/Family) Primary Care Physician Patient Instructions: Wound Care (DC) Add. Discharge Instructions: Apply a thick lotion to your hands several times daily to help hydrate the skin and prevent further cracking. You have been given a prescription for a topical antibiotic to use to prevent infection. Apply this 3-4 times daily for the next several days. All discharge instructions reviewed with patient and/or family. Voiced understanding. Scripts Bacitracin Zinc (Bacitracin Zinc) 500 Unit/Gram Oint..ea. 1 EACH TP QID for 5 Days, #28 GM 0 Refills Prov: JAKE WRAY APRN 11/14/22 JAKE WRAY APRN Nov 14, 2022 20:30
== END 2022-11-14 20:35 | disposition home or self-care (01) ==
LOC: EDUNIT# 20:01 → ER 20:02
DX: L98.8 Other specified disorders of the skin and subcutaneous tissue (principal); Z88.2 Allergy status to sulfonamides; Z28.311 Partially vaccinated for COVID-19
CPT/HCPCS: 99281

== ENCOUNTER → 2023-06-10 | Outpatient (CLI) | payer MEDICAID ==
[~2023-06-10] MED LIST changes: +BACI1PAC28 TP
--- NOTE | 2023-06-10 16:41 | Diagnostic Imaging Report ---
INDICATION: Arm pain. FINDINGS: There appears be some residual contrast within a left forearm AV fistula. The alignment of the elbow is normal. There is no fracture or dislocation. There are dystrophic calcifications just proximal to the olecranon. This may be a minimal elbow joint effusion. IMPRESSION: Degenerative changes including some dystrophic calcifications about the left elbow without acute fracture dislocation. Small elbow joint effusion cannot be excluded. Residual contrast within the left forearm AV fistula. Dictated by: Dictated on workstation # [id number]
--- NOTE | 2023-06-10 16:48 | Diagnostic Imaging Report ---
INDICATION: Left forearm pain AP and lateral views of the left forearm are obtained. No fracture or acute bony abnormality seen. There is a chronic calcification dorsal to the distal humerus. There are calcifications over the left forearm in configuration of previous dialysis graft. IMPRESSION: No acute fracture or acute bony abnormality. Chronic calcifications dorsal to the distal humerus. Extensive calcifications overlying the left forearm are in distribution of previous dialysis graft, correlate clinically. Dictated by: Dictated on workstation # [id number]
== END ==
LOC: RAD 09:45
PROVIDERS: ATTEND Family Medicine
DX: M79.602 Pain in left arm (principal); M79.632 Pain in left forearm
CPT/HCPCS: 73080; 73090

== ENCOUNTER 2023-06-23 21:38 | Emergency (ER) | payer MEDICAID ==
[~2023-06-23] VITALS: Ht 167.7 cm; Wt 77.0 kg
--- NOTE | 2023-06-23 22:32 | ED Back Pain ---
General Chief Complaint: Back Problems Stated Complaint: UPPER BACK PAIN Nursing Triage Note: PT AMB TO ED BY POV WITH C/O UPPER BACK PAIN. PT REPORTS PAIN BEGAN AROUND 1630 WHILE SHE WAS COOKING DINNER. REPORTS PAIN WRAPS FROM HER BACK AROUND HER CHEST. TRIED TAKING A MUSCLE RELAXER WITH LITTLE RELIEF. PAIN WORSE WHEN SUPINE, IMPROVED WHEN SITTING UPRIGHT. DENIES SOB OR ANY OTHER SX AT THIS TIME. Source of Information: Patient Exam Limitations: No Limitations (ADRIENNE VIEYRA) History of Present Illness Date Seen by Provider: Jun 23, 2023 Time Seen by Provider: 22:30 Initial Comments Patient is a 47-year-old female presents ED with mid to upper back pain. This started around 430 today after she was cooking dinner. Pain is described as pressure that radiates to the front part of the chest. Rates pain at a 8 out of 10. Pain is intermittent. Worse with movement. She had associated shortness of breath. No specific chest pain, cough, wheezing, vomiting. She has report diarrhea for the past 4 days. History of hiatal hernia. Denies history of coronary artery disease, COPD, smoking, diabetes. Denies of any urinary symptoms. No recent travels or surgeries. She took a Flexeril at home without much improvement. Refuse anything for pain on arrival. Patient denies of any recent travels or surgeries (ADRIENNE VIEYRA) Allergies and Home Medications Allergies Coded Allergies: Sulfa (Sulfonamide Antibiotics) (Unverified Allergy, Unknown, 06/06/16) baclofen (Verified Allergy, Unknown, 05/01/18) codeine (Unverified Allergy, Unknown, 05/27/14) cyclobenzaprine (Unverified Allergy, Unknown, 02/10/15) influenza virus vaccine, specific (Unverified Allergy, Unknown, 05/27/14) iodine (Unverified Allergy, Unknown, 05/27/14) Patient Home Medication List Home Medication List Reviewed: Yes (YUMIKO HUNTER DO) Albuterol Sulfate (Ventolin Hfa) 18 Gm Hfa.aer.ad, 1-2 PUFF IH, (Reported) Entered as Reported by: AIME BUTTERFIELD on 06/06/161847 Bacitracin Zinc (Bacitracin Zinc) 500 Unit/Gram Oint..ea., 1 EACH TP QID Prescribed by: Jake Wray on 11/14/222029 Buspirone HCl (Buspirone HCl) 10 Mg Tablet, 10 MG PO TID, (Reported) Entered as Reported by: NEDRA OGLESBY on 07/29/19 134 Cefaclor (Cefaclor) 250 Mg Capsule, 250 MG PO DAILY, (Reported) Entered as Reported by: NEDRA OGLESBY on 07/29/19 1341 Dicyclomine HCl (Dicyclomine HCl) 10 Mg Capsule, 10 MG PO, (Reported) Entered as Reported by: AIME BUTTERFIELD on 06/06/16 1848 Dicyclomine HCl (Dicyclomine HCl) 10 Mg Capsule, 10 MG PO Q6H Prescribed by: YUMIKO HUNTER on 02/11/19 0001 Doxycycline Hyclate (Doxycycline Hyclate) 100 Mg Tablet, 100 MG PO BID Prescribed by: AARON PERKINS on 07/23/19 1433 Escitalopram Oxalate (Escitalopram Oxalate) 10 Mg Tablet, 10 MG PO DAILY, (Reported) Entered as Reported by: NEDRA OGLESBY on 07/29/19 134 Methylprednisolone (Methylprednisolone Dose Pack) 4 Mg Tab.ds.pk, 4 MG PO UD Prescribed by: FATOUMATA KIRKPATRICK on 02/26/21 195 Mupirocin (Mupirocin) 1 Gm Oin.pf.mar[place]osa, 1 GM NA BID Prescribed by: YUMIKO HUNTER on 11/18/19 0822 Mycophenolate Mofetil (Cellcept) 500 Mg Tablet, 750 MG PO BID, (Reported) Entered as Reported by: CELIO MCCULLOUGH on 05/27/14 0556 Ondansetron HCl (Ondansetron HCl) 8 Mg Tablet, 8 MG PO TID, (Reported) Entered as Reported by: NEDRA OGLESBY on 07/29/19 1339 Pantoprazole Sodium (Protonix) 40 Mg Tablet.dr, 40 MG PO DAILY Prescribed by: NISH CASTILLO on 07/29/19 1554 Polyethylene Glycol 3350 (Miralax) 119 Gm Powder, 17 GM PO Q6H PRN for CONSTIPATION-1ST LINE Prescribed by: NISH CASTILLO on 05/03/20 1750 Simethicone (Gas-X) 125 Mg Capsule, Unknown Dose PO, (Reported) Entered as Reported by: MARIA DEL CARMEN KRISHNAN on 08/27/182045 Tacrolimus (Prograf) 1 Mg Capsule, 1 MG PO, (Reported) Entered as Reported by: AIME BUTTERFIELD on 06/06/16 184 Tizanidine HCl (Zanaflex) 2 Mg Capsule, Unknown Dose PO, (Reported) Entered as Reported by: MARIA DEL CARMEN KRISHNAN on 02/13/181903 Tramadol HCl (Tramadol HCl) 50 Mg Tablet, Unknown Dose PO, (Reported) Entered as Reported by: MARIA DEL CARMEN KRISHNAN on 02/13/181903 Review of Systems Constitutional: No chills EENTM: No ear pain, No blurred vision, No double vision Respiratory: No cough, No dyspnea on exertion Cardiovascular: No chest pain Gastrointestinal: No abdominal pain; diarrhea; No nausea, No vomiting Genitourinary: No decreased output Musculoskeletal: back pain; No joint pain, No joint swelling; muscle pain Skin: No change in color, No change in hair/nails (ADRIENNE VIEYRA) All Other Systems Reviewed Negative Unless Noted: Yes (ADRIENNE VIEYRA) Past Nuwmgxd-Szdwsz-Yoyfwi Hx Patient Social History Tobacco Use?: No Use of E-Cig and/or Vaping dev: No Substance use?: No Alcohol Use?: No Pt feels they are or have been: No (ADRIENNE VIEYRA) Immunizations Up To Date Tetanus Booster (TDap): Unknown PED Vaccines UTD: Yes First/Initial COVID19 Vaccinat: 2020 Second COVID19 Vaccination Jay: NONE Third COVID19 Vaccination Date: NONE (ADRIENNE VIEYRA) Seasonal Allergies Seasonal Allergies: Yes (ADRIENNE VIEYRA) Past Medical History Surgery/Hospitalization HX: KIDNEY TRANSPLANT, HIATAL HERNIA REPAIR X3, HALF OF STOMACH REMOVED Surgeries: Yes (HIATAL HERNIA REPAIR; RENAL TRANSPLANT 2005; ) Abdominal, Arteriovenous Shunt, Dialysis, Gallbladder, Kidney Transplant, Parathyroidectomy, Vascular Surgery Respiratory: Yes Asthma, Chronic Bronchitis Cardiac: Yes High Cholesterol Neurological: No 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 Disorders: No 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 Disorders: Denies BACK GRINDER History: Menopausal Sexually Transmitted Disease: No HIV/AIDS: No Genitourinary: Yes (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") Renal Failure, Dialysis, UTI-Chronic Gastrointestinal: Yes (HIATAL HERNIA REPAIR X 2; CHRONIC ABDOMINAL PAIN ) Gastroesophageal Reflux, Hiatal Hernia, Ulcer Musculoskeletal: Yes (CHRONIC KNEE PAIN ) Degenerate Disk Disease, Arthritis, Scoliosis, Chronic Back Pain Endocrine: Yes (LABILE BLOOD GLUCOSE) Parathyroid Disease, Hypothyroidsim HEENT: No Cancer: No Psychosocial: Yes (anger issues) Anxiety, Depression Integumentary: No Blood Disorders: No Adverse Reaction/Blood Tranf: No (ADRIENNE VIEYRA) Family Medical History Cancer aunt grandfather (Hodgkin's) Chest pain 19 FATHER Family history: Allergy 19 FATHER 19 MOTHER (hay fever) G8 BROTHER (hay fever) G8 SISTER (hay fever) Family history: Breast disease G8 SISTER aunt Family history: Diabetes mellitus 19 FATHER Family history: Gastrointestinal disease 19 FATHER (Hernia) G8 BROTHER (crohn's) Hearing loss 19 FATHER Thyroid disease 19 MOTHER No Family History of: Abdominal aortic aneurysm Robert's disease Alcoholism Aphasia Cancer of colon Congenital heart disease Congestive heart failure Cystic fibrosis Dementia Dysphagia Family history: Alzheimer's disease Family history: Arthritis Family history: Asthma Family history: Cardiovascular disease Family history: Coronary thrombosis Family history: Glaucoma Family history: Hypertension Family history: Osteoporosis Family history: Thyroid disorder Headache Heart disease Hereditary disease History of - anemia History of - disorder History of - respiratory disease History of drug abuse Human immunodeficiency virus (HIV) seropositivity Hypercholesterolemia Infertile Kidney disease Malignant neoplasm of lung Myocardial infarction Parkinson's disease Prostate cancer Psychotic disorder Seizure disorder Stroke Tuberculosis Visual impairment Heart Disease (ADRIENNE VIEYRA) Physical Exam Vital Signs Vital Signs - First Documented 06/23/23 21:44 Temp 36.1 Pulse 85 Resp 16 B/P (MAP) 113/62 (79) Pulse Ox 95 O2 Delivery Room Air (ELSA,YUMIKO K DO) Vital Signs Capillary Refill : Less Than 3 Seconds (ADRIENNE VIEYRA) Height, Weight, BMI Height: 5'7.00" Weight: 240lbs. 0oz. 108.501458mi; 27.00 BMI Method:Stated General Appearance: No Apparent Distress, WD/WN HEENT: PERRL/EOMI, TMs Normal, Normal ENT Inspection, Pharynx Normal Neck: Full Range of Motion, Normal Inspection, Non Tender, Supple Cardiovascular: Regular Rate, Rhythm, No Edema, No Gallop, No JVD, No Murmur Respiratory: Chest Non Tender, Lungs Clear, Normal Breath Sounds, No Accessory Muscle Use, No Respiratory Distress Gastrointestinal: Normal Bowel Sounds, No Organomegaly, No Pulsatile Mass, Non Tender, Soft Extremity: Normal Capillary Refill, Normal Inspection, Normal Range of Motion, Non Tender Neurologic/Psychiatric: Alert, Oriented x3, No Motor/Sensory Deficits, Normal Mood/Affect, cuprous chloride operator II-XII Norm as Tested Skin: Normal Color, Warm/Dry (ADRIENNE VIEYRA) Progress/Results/Core Measures Results/Orders Lab Results Laboratory Tests Test 06/23/23 22:45 Range/Units White Blood Count 7.1 4.3-11.0 10^3/uL Red Blood Count 4.50 3.80-5.11 10^6/uL Hemoglobin 12.7 11.5-16.0 g/dL Hematocrit 40 35-52 % Mean Corpuscular Volume 88 80-99 fL Mean Corpuscular Hemoglobin 28 25-34 pg Mean Corpuscular Hemoglobin Concent 32 32-36 g/dL Red Cell Distribution Width 13.4 10.0-14.5 % Platelet Count 287 130-400 10^3/uL Mean Platelet Volume 9.1 9.0-12.2 fL Immature Granulocyte % (Auto) 0 % Neutrophils (%) (Auto) 38 L 42-75 % Lymphocytes (%) (Auto) 49 H 12-44 % Monocytes (%) (Auto) 9 0-12 % Eosinophils (%) (Auto) 3 0-10 % Basophils (%) (Auto) 1 0-10 % Neutrophils # (Auto) 2.7 1.8-7.8 10^3/uL Lymphocytes # (Auto) 3.5 1.0-4.0 10^3/uL Monocytes # (Auto) 0.7 0.0-1.0 10^3/uL Eosinophils # (Auto) 0.2 0.0-0.3 10^3/uL Basophils # (Auto) 0.0 0.0-0.1 10^3/uL Immature Granulocyte # (Auto) 0.0 0.0-0.1 10^3/uL Sodium Level 141 135-145 MMOL/L Potassium Level 4.4 3.6-5.0 MMOL/L Chloride Level 113 H 98-107 MMOL/L Carbon Dioxide Level 19 L 21-32 MMOL/L Anion Gap 9 5-14 MMOL/L Blood Urea Nitrogen 18 7-18 MG/DL Creatinine 0.80 0.60-1.30 MG/DL Estimat Glomerular Filtration Rate 91 BUN/Creatinine Ratio 23 Glucose Level 102 70-105 MG/DL Calcium Level 8.7 8.5-10.1 MG/DL Corrected Calcium 8.9 8.5-10.1 MG/DL Magnesium Level 2.1 1.6-2.4 MG/DL Total Bilirubin 0.3 0.1-1.0 MG/DL Aspartate Amino Transf (AST/SGOT) 25 5-34 U/L Alanine Aminotransferase (ALT/SGPT) 37 0-55 U/L Alkaline Phosphatase 94 40-136 U/L Troponin I < 0.028 <0.028 NG/ML Total Protein 6.9 6.4-8.2 GM/DL Albumin 3.7 3.2-4.5 GM/DL Lipase 61 8-78 U/L (ELSA,YUMIKO K DO) Vital Signs/I&O 06/23/23 06/23/23 21:44 23:33 Temp 36.1 36.3 Pulse 85 81 Resp 16 16 B/P (MAP) 113/62 (79) 114/63 Pulse Ox 95 97 O2 Delivery Room Air Room Air (ELSA,YUMIKO K DO) Blood Pressure Mean: 79 Comment Sinus rhythm, 76 bpm, QRS duration 93 MS, QTc 392 MS (ADRIENNE VIEYRA) Departure Communication (PCP) Reviewed previous ER visits, H&P, lab testing. Differential diagnosis, musculoskeletal pain, ACS, pneumonia, pancreatitis. Patient presents ED with mid upper abdominal pain. Started around 430 after she ate. Pain appears to be worse with movement. She has a history of chronic back pain with bulging disc. She did have some associated shortness of breath and chest pain with the pain. No current chest pain or shortness of breath. She does have tenderness to her upper back. Due to the episode of chest pain or shortness of breath cardiac work-up was initiated. She was not hypoxic or tachycardic. She did take Flexeril at home. She cannot take NSAID as she is a current kidney transplant and currently on immunosuppressants. CBC, CMP, troponin, lipase and magnesium. She had no abdominal tenderness. EKG was obtained which noted normal sinus rhythm without evidence of arrhythmia, ST elevation or depression. Chest x-ray was negative for pneumonia, pneumothorax, pleural effusion, mediastinal widening. Atelectasis noted. No cough, wheezing or fever or chills suggesting pneumonia or upper respiratory infection. She refused anything for pain. CBC, CMP grossly unremarkable. Normal troponin and lipase. Patient pain is likely more musculoskeletal. She had no chest wall or abdominal tenderness. Vital signs remained stable. No recent travels or surgeries suggesting PE. Equal blood pressures in her upper extremities. She states she will take her Flexeril and Tylenol at home. She will follow-up with her primary care physician. If any worsening symptoms return back to ED for further evaluation. Patient has no focal neural deficits, bowel or urine incontinence or saddle paresthesia. Clinically does not appear to be cardiac in nature (ADRIENNE VIEYRA) Impression Primary Impression: Thoracic back pain Disposition: HOME, SELF-CARE Condition: Stable Departure-Patient Inst. Decision time for Depature: 23:19 (ADRIENNE VIEYRA) Referrals: MARY RECIO MD (PCP/Family) Primary Care Physician Patient Instructions: Upper Back Pain (DC) Add. Discharge Instructions: Recommend Tylenol muscle relaxers, heat. Follow-up your primary care physician 2 to 3 days for evaluation. All discharge instructions reviewed with patient and/or family. Voiced understanding. ATTENDING PHYSICIAN NOTE: I WAS PHYSICALLY PRESENT ER PHYSICIAN, BUT I WAS NOT INVOLVED IN ANY DECISION MAKING OR ANY CARE OF THIS PATIENT, AND I AM NOT COLLABORATING PHYSICIAN. (YUMIKO HUNTER DO) ADRIENNE VIEYRA Jun 23, 2023 22:32 YUMIKO HUNTER DO Jun 24, 2023 06:04
[2023-06-23 22:56] LABS: BASOPHILS % (AUTO) 1 % (0-10); EOSINOPHILS # (AUTO) 0.2 10^3/uL (0.0-0.3); EOSINOPHILS % (AUTO) 3 % (0-10); HEMATOCRIT 40 % (35-52); HEMOGLOBIN 12.7 g/dL (11.5-16.0); LYMPHOCYTES # (AUTO) 3.5 10^3/uL (1.0-4.0); LYMPHOCYTES % (AUTO) 49 % (12-44); MEAN CORPUSCULAR HEMOGLOBIN 28 pg (25-34); MEAN CORPUSCULAR HGB CONC 32 g/dL (32-36); MEAN CORPUSCULAR VOLUME 88 fL (80-99); MEAN PLATELET VOLUME 9.1 fL (9.0-12.2); MONOCYTES # (AUTO) 0.7 10^3/uL (0.0-1.0); MONOCYTES % (AUTO) 9 % (0-12); NEUTROPHILS # (AUTO) 2.7 10^3/uL (1.8-7.8); NEUTROPHILS % (AUTO) 38 % (42-75); PLATELET COUNT 287 10^3/uL (130-400); WHITE BLOOD COUNT 7.1 10^3/uL (4.3-11.0)
[2023-06-23 23:08] LABS: ALBUMIN 3.7 GM/DL (3.2-4.5)
[2023-06-23 23:09] LABS: CHLORIDE 113 MMOL/L (98-107); POTASSIUM 4.4 MMOL/L (3.6-5.0); SODIUM 141 MMOL/L (135-145)
[2023-06-23 23:10] LABS: CALCIUM 8.7 MG/DL (8.5-10.1)
[2023-06-23 23:11] LABS: GLUCOSE 102 MG/DL (70-105); TOTAL PROTEIN 6.9 GM/DL (6.4-8.2)
[2023-06-23 23:12] LABS: CARBON DIOXIDE 19 MMOL/L (21-32)
[2023-06-23 23:13] LABS: BILIRUBIN,TOTAL 0.3 MG/DL (0.1-1.0)
[2023-06-23 23:14] LABS: ALKALINE PHOSPHATASE 94 U/L (40-136)
[2023-06-23 23:15] LABS: GFR ESTIMATED 91
[2023-06-23 23:16] LABS: BUN/CREATININE RATIO 23
[2023-06-23 23:18] LABS: ALANINE AMINOTRANSFERASE 37 U/L (0-55); MAGNESIUM 2.1 MG/DL (1.6-2.4)
[2023-06-23 23:19] LABS: LIPASE 61 U/L (8-78)
[2023-06-23 23:33] VITALS: BP 114/63
--- NOTE | 2023-06-24 08:29 | Diagnostic Imaging Report ---
EXAMINATION: Chest 1 view HISTORY: Chest pain. COMPARISON: 08/12/2020. FINDINGS: The lung volumes are normal. Bibasilar opacities are seen. No focal consolidation is seen. No large pleural effusion or pneumothorax is seen. The cardiomediastinal silhouette is normal in size and contour. No acute osseous abnormality is seen. IMPRESSION: 1. Bibasilar opacities, suggestive of atelectasis. Dictated by: Dictated on workstation # [id number]
== END 2023-06-23 23:34 | disposition home or self-care (01) ==
LOC: EDUNIT# 21:38 → ER 21:40
DX: M54.6 Pain in thoracic spine (principal); N18.6 End stage renal disease; G89.29 Other chronic pain; Z99.2 Dependence on renal dialysis; Z28.311 Partially vaccinated for COVID-19
CPT/HCPCS: 36415; 71045; 80053; 83690; 83735; 84484; 85025; 93005

== ENCOUNTER → 2023-06-23 | Outpatient (CLI) | payer MEDICAID ==
[2023-06-23 10:14] LABS: BASOPHILS # (AUTO) 0.1 10^3/uL (0.0-0.1); BASOPHILS % (AUTO) 1 % (0-10); EOSINOPHILS # (AUTO) 0.2 10^3/uL (0.0-0.3); EOSINOPHILS % (AUTO) 3 % (0-10); HEMATOCRIT 42 % (35-52); HEMOGLOBIN 13.6 g/dL (11.5-16.0); LYMPHOCYTES # (AUTO) 2.8 10^3/uL (1.0-4.0); LYMPHOCYTES % (AUTO) 47 % (12-44); MEAN CORPUSCULAR HEMOGLOBIN 29 pg (25-34); MEAN CORPUSCULAR HGB CONC 33 g/dL (32-36); MEAN CORPUSCULAR VOLUME 87 fL (80-99); MEAN PLATELET VOLUME 9.1 fL (9.0-12.2); MONOCYTES # (AUTO) 0.5 10^3/uL (0.0-1.0); MONOCYTES % (AUTO) 9 % (0-12); NEUTROPHILS # (AUTO) 2.4 10^3/uL (1.8-7.8); NEUTROPHILS % (AUTO) 40 % (42-75); PLATELET COUNT 269 10^3/uL (130-400)
[2023-06-23 10:27] LABS: POTASSIUM 4.2 MMOL/L (3.6-5.0)
[2023-06-23 10:28] LABS: CALCIUM 9.1 MG/DL (8.5-10.1)
[2023-06-23 10:33] LABS: CREATININE SERUM 0.81 MG/DL (0.60-1.30); PHOSPHORUS 4.3 MG/DL (2.3-4.7); URINE CREATININE FOR RATIO 35 MG/DL (30-125)
[2023-06-23 10:34] LABS: URINE PROTEIN FOR RATIO ONLY < 6 MG/DL (6-12)
[2023-06-24 03:19] LABS: FK506 <2.0 ng/mL
== END ==
LOC: LAB 09:51
PROVIDERS: ATTEND Internal Medicine Nephrology
DX: E55.9 Vitamin D deficiency, unspecified (principal); N18.2 Chronic kidney disease, stage 2 (mild); D89.89 Other specified disorders involving the immune mechanism, not elsewhere classified; Z87.440 Personal history of urinary (tract) infections
CPT/HCPCS: 36415; 80069; 80197; 82043; 82306; 82570; 83970; 84156; 85025